=== PATIENT | female | born 1935 | race Caucasian/White ===

== ENCOUNTER → 2018-01-04 13:34 | Outpatient (CLI) | payer MEDICARE, OTHER, SELFPAY ==
--- NOTE | 2018-01-04 13:34 | DT_ITS ---
This patient was seen during an EMR downtime January 01, 2018 - January 08, 2018. This patient may have a combination of paper and electronic documentation or all paper documentation. All documentation is viewable within the e-chart portion of [employer] for each patient visit.
--- NOTE | 2018-01-04 13:46 | CT_ITS ---
STUDY: CT ABDOMEN WITHOUT CONTRAST REASON FOR EXAM: Female, 82 years old. Abdominal pain left lower quadrant colostomy RADIATION DOSAGE (If Supplied By Facility): CTDIvol = ( 9.26 ) mGy, DLP = ( 315.36 ) mGycm TECHNIQUE: Transaxial images were obtained without intravenous contrast, and with oral contrast. Sagittal and coronal images were reconstructed. This is a study from the base of the lungs to the acetabulum. This is a CT scan of the abdomen only. The pelvis was not completely included in this study. This is incomplete for evaluation of the bowel. Individualized dose optimization techniques were used for this CT. COMPARISON: August 02, 2017 ct abdomen and pelvis FINDINGS: There is minimal pelviectasis and fibrotic changes within the lung bases similar to prior study. The visualized portions of the heart are within normal limits. Normal liver. Normal gallbladder and extrahepatic biliary system. Normal spleen. Normal pancreas. Normal bilateral adrenal glands. There is mild right renal atrophy. There is a lower pole 3.4 mm stone left kidney. There is no evidence of hydronephrosis. There is a left renal cyst measuring 1.5 x 0.9 cm. The stomach is partially filled with contrast. There is herniation of the stomach out of a large opening in the left and midline abdomen superior and adjacent to the left lower quadrant colostomy. There is an air-fluid level in the distal stomach before it enters back into the abdomen towards the duodenum. On today's study the stomach measures 10.5 x 4.5 cm within the hernia. On prior study it measured 7.7 x 5.5 cm. There is mild distention of the duodenum. There is a partially contrasted minimally thick-walled appearance of the associated small bowel. There is diverticulosis without visualized diverticulitis. The appendix is visualized and appears normal. Is partial calcification of the aorta. There were measured as 2.6 x 2.9 cm. Normal inferior vena cava. Normal retroperitoneum. There is a sizable amount of herniated fat adjacent to the colostomy. The area of herniation and colostomy measures 15 x 6 x 12 cm. There is been vertebroplasty at T10 and T11 with some loss of height of the vertebral bodies. The bones are osteopenic. CT/Abdomen without IV Contrast IMPRESSION: Persistent, worsening large herniation of fat and stomach out of the colostomy site.. There is an air-fluid level in the distal stomach. Left lower quadrant colostomy containing contrast. Mild aneurysmal dilatation of the descending thoracic aorta. Mild bilateral renal atrophy Stable left renal cyst.. Left renal stone no evidence of hydronephrosis. Electronically Signed: Nereida Gary MD at 10:55 EDT Tel , Service support ,
== END ==
PROVIDERS: Family Provider Internal Medicine; PCP Internal Medicine; Visit Provider Internal Medicine
DX: R10.9 Unspecified abdominal pain (principal)
CPT/HCPCS: 74150

== ENCOUNTER → 2018-03-28 14:00 | Outpatient (CLI) | payer MEDICARE, OTHER, SELFPAY ==
[2018-03-28 14:37] LABS: Absolute Lymphocyte Count 1.28 X10^3/ul (0.83-4.51); Absolute Neutrophil Count 5.4 X10^3/uL (2.0-7.7); Basophil# 0.03 X10^3/uL; Basophil% 0.4 % (0-1); Eosinophil# 0.27 X10^3/uL; Eosinophils% 3.7 % (0-5); Hematocrit 31.6 % (37-47); Hemoglobin 10.2 g/dl (12.0-15.0); Lymphocyte # 1.28 X10^3/ul (4.0); Lymphocyte % 17.4 % (19-41); Mean Corp Hgb Conc 32.3 g/gl (32-36); Mean Corpuscular Hgb 28.5 pg (27.0-32.0); Mean Corpuscular Volume 88.3 fL (81-99); Mean Platelet Vol. 9.3 fl (6.2-12.0); Monocyte# 0.42 X10^3/uL; Monocyte% 5.7 % (0-10); Neutrophil # 5.35 X10^3/uL (2.7-7.7); Neutrophil % 72.5 % (47-70); Platelet Count 224 K/mm3 (150-450); RBC Distribution Width SD 45.7 fl (35.1-43.9); Red Blood Count 3.58 M/mm3 (4.2-5.4); White Blood Count 7.4 K/mm3 (4.4-11.0)
[2018-03-28 14:39] LABS: POSITIVE COUNT NO; POSITIVE DIFFERENTIAL NO; POSITIVE MORPHOLOGY NO
[2018-03-28 14:42] LABS: Protein, Urine (Random) 84.9 mg/dL (<11.9); Protein:Creat Ratio 488 mg/g CRE (0-200)
[2018-03-28 15:32] LABS: PTHIN 25.1 pg/mL (18.4-80.1)
[2018-03-28 16:50] LABS: Vitamin B12 673 pg/mL (211-911); Vitamin D,25 Hydroxy 30.2 ng/mL (29.95-100.01)
[2018-03-28 19:04] LABS: Albumin, Serum 3.6 g/dL (3.2-5.0); BUN 44 mg/dL (7-18); Calcium,Total 9.2 mg/dL (8.5-10.1); Chloride 108 mmol/L (98-107); Creatinine, Serum 3.39 mg/dL (0.55-1.02); EST Glomerular Filtration Rate 14 mL/min (>60); Est Glom Filt Rate - Afr Amer 17 mL/min (>60); Ferritin 119 ng/mL (8-252); Folates, (Folic Acid) > 100.00 ng/mL (3.1-55.4); Glucose 89 mg/dL (74-106); Iron 70 ug/dL (50-170); Iron Binding Capacity,Total 268 ug/dL (250-450); PERCENT IRON SATURATION 26.1 % (15.0-55.0); Phosphorus 3.3 mg/dL (2.5-4.9); Potassium 4.5 mmol/L (3.5-5.1); Sodium Level 135 mmol/L (136-145)
== END ==
PROVIDERS: Family Provider Internal Medicine; PCP Internal Medicine; Visit Provider Internal Medicine Nephrology
DX: N18.4 Chronic kidney disease, stage 4 (severe) (principal); N12 Tubulo-interstitial nephritis, not specified as acute or chronic; D63.1 Anemia in chronic kidney disease; N25.81 Secondary hyperparathyroidism of renal origin
CPT/HCPCS: 36591; 80069; 82306; 82570; 82607; 82728; 82746; 83540; 83550; 83970; 84156; 85025; A4216

== ENCOUNTER → 2018-05-07 13:57 | Outpatient (CLI) | payer MEDICARE, OTHER, SELFPAY ==
--- NOTE | 2018-05-07 14:00 | ECHOCS_ITS ---
Reason For Study: THORACIC AORTA ANEURYSM Procedure This was a 2D Doppler, Color Flow transthoracic echocardiogram. Contrast injection was performed. Exam performed in department. Left Ventricle Normal LV size. Left ventricular systolic function is normal. The estimated ejection fraction is 55 %. Stage 1 diastolic dysfunction. No regional wall motion abnormalities noted. Right Ventricle Normal RV size. Normal systolic function. Atria Normal left atrium. Normal right atrium. Mitral Valve Normal mitral valve. Tricuspid Valve Normal tricuspid valve. Mild tricuspid valve insufficiency. Aortic Valve Trisinus/trileaflet aortic valve. Mild focal aortic valve calcification. Pulmonic Valve Normal pulmonic valve. Great Vessels Mildly dilated aortic root. The pulmonary artery is normal size. Normal inferior vena cava. Pericardium/Pleural No pericardial effusion. Medication Used port access for image enhancer. Diluted definity 4ml given slow IV push to enhance endocardial definition. MMode/2D Measurements & Calculations LVIDd: 4.2 cm IVSd: 0.70 cm Ao root diam: 3.9 cm LVIDs: 3.3 cm LVPWd: 0.92 cm LA dimension: 3.6 cm RVDd: 3.5 cm FS: 21.5 % LAV(MOD-bp): 47.5 ml EDV(MOD-sp4): 85.2 ml EDV(MOD-sp2): 86.8 ml LAV(MOD-bp) Indexed: 28.7 ml/m2 ESV(MOD-sp4): 42.2 ml EF(MOD-sp2): 48.3 % LAV(MOD-sp2): 48.7 ml EF(MOD-sp4): 50.4 % LAV(MOD-sp4): 47.0 ml SV(MOD-sp4): 43.0 ml SV(MOD-sp2): 41.9 ml LA A4 area: 17.5 cm2 RA A4 area: 14.3 cm2 Time Measurements MV dec time: 0.39 sec Doppler Measurements & Calculations MV E max taurus: 38.1 cm/sec Lat Peak E' Taurus: 8.6 cm/sec Med Peak E' Taurus: 4.7 cm/sec MV A max taurus: 75.0 cm/sec E/E' lat: 4.4 E/E' med: 8.1 MV E/A: 0.51 Ao V2 max: 123.6 cm/sec LV V1 max: 83.1 cm/sec PA V2 max: 71.5 cm/sec Ao max P.1 mmHg LV V1 max P.8 mmHg PI end-d taurus: 98.6 cm/sec TR max taurus: 211.6 cm/sec TR max P.9 mmHg Interpretation Summary Normal LV size. Left ventricular systolic function is normal. The estimated ejection fraction is 55 %. Stage 1 diastolic dysfunction. Mildly dilated aortic root. Compared to prior study, there is no significant change. Ordering Physician: GIANFRANCO LACY Referring Physician: Anya Lua M.D. Performed By: Theresa Eid RDCS, RVT
== END ==
PROVIDERS: Family Provider Internal Medicine; PCP Internal Medicine; Referring Provider Surgery Vascular Surgery; Visit Provider Surgery Vascular Surgery
DX: I71.2 Thoracic aortic aneurysm, without rupture (principal)
CPT/HCPCS: 93306; Q9957; A4216; C8929

== ENCOUNTER 2018-06-30 12:45 | Emergency (ER) | payer MEDICARE, OTHER, SELFPAY ==
[2018-06-30 12:47] VITALS: BP 110/65; PULSE 63; RESP 16; TEMP 36.2; O2SAT 93; BMI 23.0
--- NOTE | 2018-06-30 12:53 | VDLE_ITS ---
Reason For Study: swelling RIGHT LEFT CFV is compressible, spontaneous, phasic, CFV, FV, POP V, T/P Trunk, PTV, Peroneal V, competent and demonstrates normal Gastroc V, Soleus V are dilated and augmentation. noncompressible with no flow. Procedure GSV is partially harvested. Remaining GSV is Exam performed portable in ED. compressible. The exam was diagnostic. A preliminary report was called and/or faxed to Dr. Aly. <> Interpretation Summary Acute deep venous thrombosis left common femoral, femroal, poplieal, tibioperoneal trunk, posterior tibial, peroneal, gastrocnemius and soleus veins. Partially remaining great saphenous vein is patent and compressible Normal flow patterns right common femoral vein Ordering Physician: Felice Aly Performed By: Rob Muhammad, RVT
--- NOTE | 2018-06-30 14:48 | ED.VISSUMM ---
- ER Visit Summary Date of Service: 06/30/18 Chief Complaint: [Swelling left leg] History of Present Illness: The patient is a 82 F [presents to the emergency department with complaint of swelling to her left leg since yesterday. Patient denies any trauma. Patient denies any chest pain or shortness of breath. 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 Patient states that she had been on anticoagulation for many years but then her doctors took her off. Patient is not sure why she was taken off of the anticoagulation. Patient has a history of factor V Leiden and history of lymphoma. Patient also with stage IV kidney disease but is not on dialysis.] Physical Examination: [HEENT-PERRLA, EOMI. Cranial nerves II through XII grossly intact. TMs clear. Mucous membranes moist. No adenopathy. Cardiovascular-regular rate and rhythm without murmur or ectopy Lungs-clear to auscultation, chest wall stable without crepitus or subcu emphysema Abdomen-normoactive bowel sounds, soft, nontender, no rebound or rigidity, no peritoneal signs. Extremities-intact ?4, normal range of motion, normal pulses. Left leg-patient has diffuse edema from the thigh down to the foot. There is a slight bluish hue/discoloration to the left leg. Patient has normal popliteal, femoral, dorsal pedal, and posterior tibial pulses. Patient has normal cap refill. The leg is not painful. Patient has normal range of motion.] Test Results: [Venous duplex of the left lower extremity obtained showed a DVT extending from the femoral vein down to the foot.] Emergency Department Course and Treatment: [Patient case was discussed with Dr. rogel he was on-call for Dr. Malin. At this point decision was made to treat patient with Eliquis. Patient states that she normally ambulates without difficulty on her own. Patient is not a fall risk. She denies any blood in her stool or black tarry stools. Patient had blood work done on 829 of this year and showed a hemoglobin over 10. Patient does have a history of some chronic anemia.] Treatment Plan: [Patient will be treated with Eliquis and patient to be seen in primary care physician's office within next 3-5 days. Patient advised to return if worsening pain, swelling, weakness in the extremity, paresthesias, or condition should worsen anyway.] Disposition: [Discharged home in stable condition] Impression: [DVT left lower extremity] This note was generated with [employer] dictation software. It may contain incorrect words, spelling, and punctuation that were not noted in review of the chart prior to signing ED Disposition - Plan for ED Patient: Chief Complaint: Edema Referrals: Anya Lua DO [Primary Care Provider] -
--- NOTE | 2018-06-30 14:54 | ED.DEP ---
ED Disposition - Plan for ED Patient: Chief Complaint: Edema Instructions: ED DVT Prescriptions: Apixaban [Eliquis] 5 mg PO BID #[id number] tab Referrals: Anya Lua DO [Primary Care Provider] - 3-5 Days
[2018-06-30] MEDS: APIXABAN 5 MG TABLET 10 MG PO (15:13)
[2018-06-30 15:15] VITALS: BP 115/81; PULSE 73; RESP 16; O2SAT 100
[2018-06-30 15:16] VITALS: BP 115/81; PULSE 73; RESP 16; O2SAT 100
--- OUTSIDE RECORDS SUMMARY | 2018-08-24 20:17 | XMS RPT_ITS | Continuity of Care Document ---
:1935 Author Organization [facility] Address [address] [place] [address] Phone Care Team Providers Name Role Phone Anya Steward DO Unavailable Dr. Alexey Shields Unavailable Guicho Rowe DO Unavailable Physical Therapy, [facility] Unavailable Asia Mcclain Unavailable Unavailable Daniel Hawk Unavailable Unavailable Sherri LICONA, Lauren Unavailable ELICEO Dove Unavailable Unavailable Yolanda Zarco Unavailable Unavailable Vianey Burr LPN Unavailable Unavailable Alexa Razo Unavailable Unavailable Unavailable Unavailable Problems Name Dates Details Abnormal blood finding (R79.9, 790.99) Comments: elev sed rate and crp-- will update cancer screening- order cologard- and family h/o dad from colon cancer age - late 70'smamm orderelev from compression fx and pain-- lymphoma in remission per oncology Status: Active Abnormal chest x-ray (R93.89, 793.2) Status: Active Abnormal lung sounds (R09.89, 786.7) Status: Active Abnormal TSH (R79.89, 790.6) Status: Active Acute pharyngitis (J02.9, 462) Comments: x 2weeksadd humity, and antibioticpt was treated with augmentin for sinus, but gave her pills to now her symptoms are back Status: Active Acute sinusitis, unspecified (J01.90, 461.9) Status: Active Anemia (D64.9, 285.9) Comments: saw [facility] fro vaginal bleeding Status: Active 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, 285.21) Comments: along with iron def but last labs are normal - and pt states not taking iron at all despite what referal letter states -- -if hgb <10 heme will restart procrit injections, i still think her chronic p ain and adrenal fatigue play a role as well Status: Active 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, 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) Status: Active Annual Medicare Phyiscal WITHOUT abnormal findings (Renamed from Encounter for general adult medical examination without abnormal findings) (Z00.00, V70.9) Status: Active Aphthae, oral (K12.0, 528.2) Status: Active 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, 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) Comments: shaji Parra Status: Active BMI 23.0-23.9, adult (Z68.23, V85.1) Status: Active BMI between 19-24,adult (V85.1) Status: Active BMI between 19-24,adult (V85.1) Status: Active Chest pain, atypical (R07.89, 786.59) Status: Active Chronic fatigue (R53.82, 780.79) Status: Active Chronic kidney disease, stage IV (severe) (N18.4, 585.4) Comments: Shaji Gamble for renal Status: Active Chronic systolic congestive heart failure (I50.22, 428.22) Status: Active Chronic thoracic back pain, unspecified back pain laterality (M54.6, 724.1) Status: Active CKD (chronic kidney disease), stage V (N18.5, 585.5) Status: Active Cough (R05, 786.2) Status: Active Cough (R05, 786.2) Status: Active COUGH, NOS (R05, 786.2) Comments: cough better now hear pneumoniia? early viral. will see how goes over next week. if worsen CXR. Status: Active CRP elevated (R79.82, 790.95) Status: Active Cystitis, acute (Renamed from Acute cystitis) (N30.00, 595.0) Comments: had month ago rech and cx Status: Active Deliveries (Parity) Comments: 4 Status: Active Difficulty breathing (R06.89, 786.09) Status: Active Diverticulosis of colon (K57.30, 562.10) Comments: stable Status: Active DVT (deep venous thrombosis) (I82.409, 453.40) Status: Active Dysuria (R30.0, 788.1) Status: Active Dysuria (R30.0, 788.1) Status: Active E. 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 Parra Status: Active Family history of diabetes mellitus (Z83.3, V18.0) Status: Active Fatigue (R53.83, 780.79) Status: Active FATIGUE (R53.83, 780.79) Comments: multifactorial -- depression , aging , lots of stress, CKD, anemai not eating well righ tnow. rest eat better. Status: Active Headache (R51, 784.0) Comments: resolved, assured no cancer from MRI of brainsome mod small vessel ischemic disease no infarcthistory of lymphomaheadache localized left side behind eye and side of face treated for sinus and no other symptoms Status: Active Hematuria, gross (R31.0, 599.71) Status: Active Hip fracture, right (S72.001A, 820.8) Status: Active Hip pain, right (M25.551, 719.45) Status: Active Hx of elevated BUN/CR Status: Active Hx of low WBC Status: Active Hypercalcemia (E83.52, 275.42) Comments: told to stop Richard with D, if still elevated would check spep and upep Status: Active Hyperlipidemia, unspecified (E78.5, 272.4) Status: Active Hypertension, benign (I10, 401.1) Status: Active Hypokalemia (E87.6, 276.8) Status: Active Hypotension (I95.9, 458.9) Comments: was recently started on lisinopril and symptomatic, lisinopril held and improving Status: Active Hypothyroidism (E03.9, 244.9) Status: Active Left lower quadrant pain (R10.32, 789.04) Status: Active [facility] current use of anticoagulant (Z79.01, V58.61) Comments: inr 1.3-- Prah monitoring when to restat it Status: Active LYMPHADENITIS, ACUTE (683.) (683) Status: Active LYMPHOMA, NOS Status: Active Neck pain, bilateral (M54.2, 723.1) Status: Active Need for prophylactic vaccination and inoculation against influenza (Z23, V04.81) Status: Active Need for vaccination against Streptococcus pneumoniae (Z23, V03.82) Status: Active 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 mets vs other only on rtworse at night infron of ribshistory of nonhodgkins lymphoma being seen by Mari Status: Active SBO (small bowel obstruction) (K56.609, 560.9) Comments: no surgical intervention needed Status: Active Sciatic pain (M54.30, 724.3) Status: Active SOB (shortness of breath) (R06.02, 786.05) Status: Active Sore throat (J02.9, 462) Status: Active Status post-operative repair of closed fracture of right hip (Z98.890, V45.89) Comments: getting home Pt sees Dr. Lion in Jul Status: Active Therapeutic drug monitoring (Z51.81, V58.83) Status: Active THICKENING OF SKIN (782.8) Status: Active Thoracic compression fracture (S22.000A, 805.2) Comments: chronic Status: Active UMBILICAL HERNIA, NOS (553.1) Status: Active Unspecified Diagnosis Status: Active Unspecified Diagnosis Status: Active Unspecified Diagnosis Status: Active Unspecified Diagnosis Status: Active Upper respiratory infection, acute (J06.9, 465.9) Status: Active Urgency incontinence (N39.41, 788.31) Status: Active Urinary frequency (R35.0, 788.41) Status: Active Urinary incontinence, unspecified type (R32, 788.30) Status: Active Urinary tract infection, recurrent (N39.0, 599.0) Status: Active Urine frequency (R35.0, 788.41) Status: Active UTI symptoms (R39.9, 788.99) Status: Active Walking pneumonia (J18.9, 486) Status: Active Medications Name Dates Details Acetaminophen ER 650 MG Oral Tablet Extended Release 1 (one) Tablet ER q 6 hrs prn for 0 days Quantity: 90 {Tablet} Refills: 0 Ordered:12-Jul-2016 Miri Polanco CNP Start : 12-Jul-2016 Active Carmen Allergy Childrens 30 MG Oral Tablet Disintegrating 1 (one) Tablet Tablet [id number] for 30 days Quantity: 60 {Tablet} Refills: 1 Ordered:14-Jun-2018 Asia Mcclain Start : 14-Jun-2018 Active Calcium Carbonate-Vitamin D 500-400 MG-UNIT Oral Tablet 1 (one) Tablet daily for 0 days Quantity: 30 {Tablet} Refills: 0 Ordered:12-Jul-2016 Miri Polanco CNP Start : 12-Jul-2016 Active Citalopram Hydrobromide 20 MG Oral Tablet 1 (one) Tablet qd for 90 days Quantity: 90 {Tablet} Refills: 1 Ordered:22-Jan-2018 Dorie Steward DO, DO, Kathleen Start : 22-Jan-2018 Active Eliquis 5 MG Oral Tablet 1 (one) Tablet two tablets bid x1 week then one tablet bid for 30 days Quantity: 60 {Tablet} Refills: 3 Ordered:04-Jul-2018 Sherri LICONA Lauren Start : 04-Jul-2018 Active Iron 325 (65 Fe) MG Oral Tablet 1 (one) Tablet daily for 0 days Quantity: 30 {Tablet} Refills: 3 Ordered:15-May-2017 Dorie Steward DO, DO, Kathleen Start : 15-May-2017 Active Levothyroxine Sodium 88 MCG Oral Tablet 1 (one) Tablet daily for 0 days Quantity: 90 {Tablet} Refills: 3 Ordered:21-Jul-2017 Dorie Steward DO, DO, Kathleen Start : 21-Jul-2017 Active Magnesium Oxide 400 MG Oral Capsule 1 QD (400 MG) Active OxyCODONE HCl 5 MG Oral Tablet 1 (one) Tablet q 4 hours as needed for 0 days Quantity: 30 {Tablet} Refills: 0 Ordered:12-Jul-2016 Miri Polanco CNP Start : 12-Jul-2016 Active Comments:Medication taken as needed. Pantoprazole Sodium 40 MG Oral Tablet Delayed Release 1 QD (40 MG) Active Potassium Chloride ER 20 MEQ Oral Tablet Extended Release 1 (one) Tablet ER daily when take a lasix pill for 30 days Quantity: 30 {Tablet} Refills: 0 Ordered:13-Jul-2017 Dorie Steward DO, DO, Kathleen Start : 13-Jul-2017 Active Vitamin C 250 MG Oral Tablet 1 (one) Tablet with iron daily for 0 days Quantity: 30 {Tablet} Refills: 4 Ordered:15-May-2017 Dorie Steward DO, DO, Kathleen Start : 15-May-2017 Active Warfarin Sodium 1 MG Oral Tablet 1 (one) Tablet TAD for 0 days Quantity: 200 {Tablet} Refills: 3 Ordered:04-Jul-2018 Miri Polanco CNP Start : 04-Jul-2018 Active Warfarin Sodium 1 MG Oral Tablet 1 (one) Tablet TAD for 0 days Quantity: 360 {Tablet} Refills: 3 Ordered:04-Jul-2018 Miri Polanco CNP Start : 04-Jul-2018 Active Warfarin Sodium 5 MG Oral Tablet 1 (one) Tablet TAD for 0 days Quantity: 90 {Tablet} Refills: 4 Ordered:04-Jul-2018 Miri Polanco CNP Start : 04-Jul-2018 Active Warfarin Sodium 5 MG Oral Tablet 1 (one) Tablet TAD for 0 days Quantity: 90 {Tablet} Refills: 3 Ordered:04-Jul-2018 Miri Polanco CNP Start : 04-Jul-2018 Active ALEVE, 220MG (Oral Tablet) 2 (two) Tablet Twice daily for 0 days Refills: 0 Ordered:31-Mar-2011 KRISTY Duval Start : 04-Jun-2007 End : 31-Mar-2011 Inactive Amoxicillin-Pot Clavulanate 875-125 MG Oral Tablet 1 (one) Tablet bid for 10 days Quantity: 20 {Tablet} Refills: 0 Ordered:14-Jun-2018 Yolanda Zarco Start : 14-Jun-2018 End : 24-Jun-2018 Inactive AUGMENTIN, 875-125MG (Oral Tablet) 1 Tablet bid for 10 days Quantity: 20 {Tablet} Refills: 0 Ordered:13-Oct-2014 Dorie Steward DO, DO, Kathleen Start : 13-Oct-2014 End : 23-Oct-2014 Inactive Bactrim DS 800-160 MG Oral Tablet 1 Tablet bid for 7 days Quantity: 14 {Tablet} Refills: 0 Ordered:22-Mar-2018 Yolanda Zarco Start : 22-Mar-2018 End : 29-Mar-2018 Inactive BIAXIN XL, 500MG (Oral Tablet Extended Release 24 Hour) 2 (two) Tablet ER 24HR daily for 10 days Quantity: 20 {Tablet_ER_24HR} Refills: 0 Ordered:24-Sep-2012 Miri Polanoc CNP Start : 24-Sep-2012 End : 04-Oct-2012 Inactive BLEPH-10, 10% (Ophthalmic Solution) 2 (two) Drop(s) q2-3hr x 7-10 days for 7 days Quantity: 1 {Solution} Refills: 0 Ordered:24-Sep-2012 Miri Polanco CNP Start : 24-Sep-2012 End : 01-Oct-2012 Inactive CALCIUM 600, 1500MG (Oral Tablet) for 0 days Refills: 0 Ordered:31-Mar-2011 KRITSY Duval End : 31-Mar-2011 Inactive CLARITIN, 10MG (Oral Capsule) 1 Capsule dialy for 0 days Quantity: 14 {Capsule} Refills: 0 Ordered:08-Jun-2012 Sariah Brantley LPN Start : 18-Apr-2011 End : 08-Jun-2012 Inactive Coumadin 5 MG Oral Tablet tad Tablet UAD for 90 days Quantity: 180 {Tablet} Refills: 3 Ordered:14-Jun-2018 Leno FENTONTrueramírez Smyth Start : 22-May-2013 End : 14-Jun-2018 Inactive Comments:generic CULTURELLE, 10B CELL (Oral Capsule) 1 Capsule bid for 0 days Quantity: 20 {Capsule} Refills: 0 Ordered:13-Nov-2012 Akosua Gannon Start : 08-Jun-2012 End : 13-Nov-2012 Inactive DETROL LA, 4MG (Oral Capsule Extended Release 24 Hour) 1 cap Capsule ER 24HR qd for 90 days Quantity: 90 {Capsule_ER_24HR} Refills: 3 Ordered:10-Jan-2012 Yolanda Dove LPN Start : 25-Aug-2010 End : 10-Jan-2012 Inactive Ferrex 150 Forte 150-25-1 MG-MCG-MG Oral Capsule 1 (one) Capsule bid for 30 days Quantity: 60 {Capsule} Refills: 0 Ordered:03-Aug-2016 Dorie Steward DO, DO, Kathleen Start : 03-Aug-2016 End : 02-Sep-2016 Inactive Flagyl 500 MG Oral Tablet 1 (one) Tablet bid for 0 days Quantity: 20 {Tablet} Refills: 0 Ordered:11-Jul-2017 Yolanda Dove LPN Start : 20-Jun-2017 End : 11-Jul-2017 Inactive FLECTOR, 1.3% (Transdermal Patch) 1 Patch q12hrs for 0 days Quantity: 10 {Patch} Refills: 0 Ordered:15-Apr-2013 Akosua Gannon Start : 04-Dec-2012 End : 15-Apr-2013 Inactive FOSAMAX PLUS D, 34-9942CO-VMTS (Oral Tablet) 1 Tablet QW for 0 days Quantity: 12 {Tablet} Refills: 3 Ordered:03-Aug-2009 Yolanda Dove LPN Start : 30-Jul-2008 Inactive FOSAMAX, 70MG (Oral Tablet) 1 (one) Tablet qweek for 0 days Quantity: 12 {Tablet} Refills: 3 Ordered:08-Jun-2012 Sariah Brantley LPN Start : 16-Feb-2011 End : 08-Jun-2012 Inactive Comments:pls substitute the generic Lasix 20 MG Oral Tablet 1 Tablet x1 today and tomorrow for 0 days Quantity: 2 {Tablet} Refills: 0 Ordered:21-Jul-2017 KRISTY Duval Start : 13-Jul-2017 End : 21-Jul-2017 Inactive Levaquin 500 MG Oral Tablet 1 (one) Tablet qd for 0 days Quantity: 10 {Tablet} Refills: 0 Ordered:11-Jul-2017 Yolanda Dove LPN Start : 20-Jun-2017 End : 11-Jul-2017 Inactive LEXAPRO, 10MG (Oral Tablet) 1 Tablet QD for 0 days Quantity: 90 {Tablet} Refills: 3 Ordered:23-Sep-2009 Yolanda Dove LPN Start : 28-Feb-2007 Inactive LIDODERM, 5% (External Patch) 1 Patch on 12 hours off 12 hours for 10 days Quantity: 10 {Patch} Refills: 0 Ordered:03-Dec-2012 Sherri LICONA Lauren Start : 03-Dec-2012 End : 13-Dec-2012 Inactive Lisinopril 5 MG Oral Tablet 3 (three) Tablet daily for 0 days Quantity: 90 {Tablet} Refills: 0 Ordered:12-Jul-2016 Vianey Burr LPN Start : 12-Jul-2016 End : 12-Jul-2016 Inactive Macrobid 100 MG Oral Capsule 1 (one) Capsule bid for 5 days Quantity: 10 {Capsule} Refills: 0 Ordered:13-Mar-2018 Yolanda Zarco Start : 13-Mar-2018 End : 18-Mar-2018 Inactive METAXALONE, 800MG (Oral Tablet) 1 (one) Tablet Tablet tid prn for 0 days Quantity: 20 {Tablet} Refills: 0 Ordered:25-Mar-2015 Akosua Gannon Start : 13-Oct-2014 End : 25-Mar-2015 Inactive MUCINEX, 600MG (Oral Tablet Extended Release 12 Hour) 1 Tablet ER 12HR bid for 0 days Quantity: 30 {Tablet_ER_12HR} Refills: 0 Ordered:13-Nov-2012 Akosua Gannon Start : 08-Jun-2012 End : 13-Nov-2012 Inactive ONE-A-DAY WOMENS FORMULA (Oral Tablet) for 0 days Refills: 0 Ordered:08-Jun-2012 Sariah Brantley LPN End : 08-Jun-2012 Inactive OXYBUTYNIN CHLORIDE ER, 5MG (Oral Tablet Extended Release 24 Hour) 1 Tablet ER 24HR qd for 0 days Quantity: 90 {Tablet_ER_24HR} Refills: 3 Ordered:29-Jun-2015 Yolanda Dove ELICEO Start : 13-Aug-2012 End : 29-Jun-2015 Inactive PAMINE, 2.5MG (Oral Tablet) BID for 0 days Refills: 0 Ordered:04-Aug-2008 Jazzy Marie End : 04-Jun-2007 Inactive PENLAC, 8% (External Solution) 1 Solution qd for 0 days Quantity: 1 {Solution} Refills: 5 Ordered:18-Apr-2011 Sariah Brantley LPN Start : 26-Mar-2010 End : 18-Apr-2011 Inactive Comments:apply to clean from base to tip daily PEPCID, 20MG (Oral Tablet) 1 Tablet bid for 14 days Refills: 0 Ordered:25-May-2011 Miri Polanco CNP Start : 18-Apr-2011 End : 02-May-2011 Inactive PREDNISONE, 20MG (Oral Tablet) 1 Tablet uad for 0 days Refills: 0 Ordered:25-Mar-2015 Akosua Gannon Start : 13-Oct-2014 End : 25-Mar-2015 Inactive Comments:2 a d for 2 d, 1 a d for 3d, 1/2 a d for 3 d ProAir RespiClick 108 (90 Base) MCG/ACT Inhalation Aerosol Powder Breath Activated 2 (two) Aero Pow Br Act Aero Pow Br Act q 6 hr prn for 0 days Quantity: 1 {Inhaler} Refills: 0 Ordered:15-May-2017 Vianey Burr LPN Start : 23-Sep-2016 End : 15-May-2017 Inactive PROzac 20 MG Oral Capsule 1 Capsule qd for 0 days Quantity: 90 {Capsule} Refills: 3 Ordered:15-May-2017 Vianey Burr LPN Start : 28-Jul-2016 End : 15-May-2017 Inactive PROZAC, 20MG (Oral Capsule) 1 Capsule qd for 0 days Quantity: 30 {Capsule} Refills: 1 Ordered:13-Nov-2012 Akosua Gannon Start : 20-Apr-2012 End : 13-Nov-2012 Inactive QUININE SULFATE, 260MG (Oral Tablet) 1 QD for 0 days Refills: 0 Ordered:04-Aug-2008 Jazzy Marie End : 04-Jun-2007 Inactive SYNTHROID, 100MCG (Oral Tablet) 1 Tablet QD for 0 days Quantity: 90 {Tablet} Refills: 3 Ordered:03-Dec-2008 Yolanda Dove LPN Start : 28-Feb-2007 End : 03-Dec-2008 Inactive Comments:NOVEMBER SUBSTITIUTE GENERIC TOPROL XL, 25MG (Oral Tablet Extended Release 24 Hour) 1/2 QD for 0 days Refills: 0 Ordered:04-Aug-2008 Jazzy Marie End : 04-Jun-2007 Inactive VALTREX, 1GM (Oral Tablet) 2 (two) Tablet bid for 1 days Quantity: 4 {Tablet} Refills: 1 Ordered:08-Jun-2012 Sariah Brantley LPN Start : 28-Oct-2011 End : 08-Jun-2012 Inactive VICODIN, 5-500MG (Oral Tablet) 1-2 Tablet every six hours, as needed for 0 days Quantity: 60 {Tablet} Refills: 0 Ordered:31-Mar-2011 KRISTY Duval Start : 07-Jul-2010 End : 31-Mar-2011 Inactive Comments:Medication taken as needed. sixty Vitamin B12 1000 MCG Oral Tablet Extended Release 1 (one) Tablet ER daily for 30 days Quantity: 30 {Tablet} Refills: 0 Ordered:23-Sep-2016 Yolanda Dove LPN Start : 12-Jul-2016 End : 11-Aug-2016 Inactive Vitamin D3 08306 UNIT Oral Tablet 1 (one) Tablet once a week for 30 days Quantity: 4 {Tablet} Refills: 0 Ordered:23-Sep-2016 Yolanda Dove LPN Start : 12-Jul-2016 End : 11-Aug-2016 Inactive ZITHROMAX Z-ELIANA, 250MG (Oral Tablet) 2 (two) Tablet on day 1then one tab daily for 4more days for 0 days Quantity: 1 {Package} Refills: 0 Ordered:07-Oct-2015 Yolanda Dove LPN Start : 17-Sep-2015 End : 07-Oct-2015 Inactive ZOCOR, 20MG (Oral Tablet) 1 Tablet QD for 0 days Quantity: 90 {Tablet} Refills: 3 Ordered:08-Jun-2012 Sariah Brantley LPN Start : 18-Jan-2012 End : 08-Jun-2012 Inactive ARMOUR THYROID, 120MG (Oral Tablet) 1 Tablet qd for 0 days Refills: 0 Ordered:13-Apr-2009 Nichelle MURRIETA AnyaNichelle Anya Start : 13-Apr-2009 End : 13-Apr-2009 Discontinued Dulera 200-5 MCG/ACT Inhalation Aerosol 1 (one) Aerosol Aerosol bid for 0 days Quantity: 1 {Inhaler} Refills: 0 Ordered:12-Jul-2016 Izabella Nuñez LPN Start : 07-Oct-2015 End : 12-Jul-2016 Discontinued HYDROCODONE-ACETAMINOPHEN, 5-500MG (Oral Tablet) 1 Tablet 1 to 2 tabs q6hrs prn for 0 days Quantity: 30 {Tablet} Refills: 1 Ordered:15-Apr-2013 Izabella Nuñez LPN Start : 15-Apr-2013 End : 12-Jul-2016 Discontinued Comments:This order discontinued per [facility]. VITAMIN D, 1000UNIT (Oral Capsule) 1 qd for 0 days Refills: 0 Ordered:23-Mar-2011 Izabella Nuñez LPN End : 12-Jul-2016 Discontinued Comments:This order discontinued per [facility]. Allergies and Adverse Reactions Name Dates Details Clindamycin - called metalic taste (Allergy) Status: Active Ketek - unpleasant taste in mouth (Allergy) Status: Active Niacin *ANTIHYPERLIPIDEMICS* (Allergy) Status: Active Comments: itch Zithromax - stomach upset & diarrhea (Allergy) Status: Active Past Medical History Name Dates Details Abdominal pain (R10.9, 789.00) Status: Resolved as of 11-Jan-2018 Bronchitis (J40, 490) Status: Inactive as of 19-Nov-2014 Cough (R05, 786.2) Status: Inactive as of 29-Oct-2015 Dysthymic (F34.1, 300.4) Comments: improcved on rx and situ improving too Status: Inactive as of 19-Nov-2014 Knee pain (M25.569, 719.46) Status: Inactive as of 14-Jan-2009 Low back pain (M54.5, 724.2) Status: Inactive as of 18-Feb-2013 NON-HODGKIN'S LYMPHOMA, NOS Comments: remission Status: Resolved as of 13-Apr-2009 Osteoporosis (M81.0, 733.00) Status: Resolved as of 16-Feb-2011 Other pulmonary embolism and infarction (I26.99, 415.19) Comments: ct scan sched thru oncologoly Status: Resolved as of 29-Jun-2015 Pain of upper extremity, unspecified laterality (M79.603, 729.5) Status: Inactive as of 18-Feb-2013 PHLEBITIS, NOS (451.9) Status: Inactive as of 03-Aug-2009 [place] eye (372.03) Status: Inactive as of 18-Feb-2013 Rash (R21, 782.1) Comments: ? contact dermatitis, tried prednisone then reappeared, after 1 wk, but went out and mowed again Status: Inactive as of 18-Feb-2013 SOB (shortness of breath) on exertion (R06.02, 786.05) Status: Resolved as of 27-Sep-2016 Wheeze (R06.2, 786.07) Status: Resolved as of 09-Oct-2015 Procedures Procedure Dates Details Colonoscopy Completed Oct-2004 COLONOSCOPY, NOS Completed Comments: 2002 Hip Fracture & Surgery - Right Completed Comments: Dr Lion 05/2016 Date Value Details 02-Jul-2018 Venous Duplex Lower Extremity Result: Comments: See Note; NOTES: [facility] Cardiovascular Services [address] [place] [address] Venous Duplex US, Unilateral 06/30/18 1341 MR#: [id number] Acct: [id number] Name: SALMA BYRAN Rep #: [id number] : 1935 82 From: Que Gonzales MD Attending Dr: Status: DEP ER Ordering Dr: Felice Aly DO Date: 06/30/18 Location: ED Sex: F C Admitted: Reason For Study : swelling RIGHT LEFT CFV is compressible, spontaneous, phasic, CFV, FV, POP V, T/P Trunk, PTV, Peroneal V, competent and demonstrates normal Gastroc V, Soleus V are dilated and augmentation. noncompre ssible with no flow. Procedure GSV is partially harvested. Remaining GSV is Exam performed portable in ED. compressible. The exam was diagnostic. A preliminary report was called and/or faxed to Dr. Farzana mota <> Interpretation Summary Acute deep venous thrombosis left common femoral, femroal, poplieal, tibioperoneal trunk, posterior tibial, peroneal, gastrocnemius and soleus veins. Partia lly remaining great saphenous vein is patent and compressible Normal flow patterns right common femoral vein __ Ordering Physician: Felice Aly Performed By: Rob Muhammad RVT 07/02/18 0602 Date Que Gonzales MD CC: Anya Steward DO; Felice Aly DO Date Dictated: 06/30/18 1341 Date Transcribed: 07/02/18 06 [employer]: Signed 30-Jun-2018 Discharge Instruction Result: Comments: See Note; NOTES: [facility] Medical Records Department [address] [place] [id number] Discharge Instruction 06/30/18 1454 MR#: [id number] Acct: [id number] Name: SALMA WELLS Rep #: [id number] : 1935 82 From: Felice Aly DO PCP: Anya Steward DO Status: REG ER ED Disposition - Plan for ED Patient: Chief Complaint: Edema Instructions: ED DVT Prescrip tions: Apixaban [Eliquis] 5 mg PO BID #74 tab Referrals: Anya Steward DO [Primary Care Provider] - 3-5 Days What to do if you have Problems For any increased pain, shortness of breath, bleeding, nausea or vomiting, chest pain, or any unexpected problems, contact your Primary Care Provider. Call [facility] ([phone]) or report to the closest Emergency Room. Call 911 if necessary. [phone] <Electronically signed by Feilce Aly DO> Date Felice Aly DO Cosigner Signature (If Indicated): Date CC: Anya Steward DO 30-Jun-2018 Emergency Department Summary Result: Comments: See Note; NOTES: [facility] Medical Records Department [address] [facility] [place] [address] Emergency Department Summary 06/30/18 1448 MR#: [id number] Acct: [id number] Name: SALMA DUENAS Rep #: [id number] : 1935 82 From: Felice Aly DO PCP: Anya Steward DO Status: REG ER - ER Visit Summary Date of Service: 06/30/18 Chief Complaint: [Swelling left leg] History of Present Illness: The patient is a 82 F [presents to the emergency department with complaint of swelling to her left leg since yesterday. Patient denies any trauma. Patient denies any chest pa in or shortness of breath. 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 Patient states that she had been on anticoagulation for many years but then her doctors took her off. Patient is not sure why she was taken off of the anticoagulation. Patient has a history of factor V Leiden and history of lymphoma. Patient also with stage IV kidney disease but is not on dialysis .] Physical Examination: [HEENT-PERRLA, EOMI. Cranial nerves II through XII grossly intact. TMs clear. Mucous membranes moist. No adenopathy. Cardiovascular- regular rate and rhythm without murmur or e ctopy Lungs-clear to auscultation, chest wall stable without crepitus or subcu emphysema Abdomen-normoactive bowel sounds, soft, nontender, no rebound or rigidity, no peritoneal signs. Extremities-in tact 4, normal range of motion, normal pulses. Left leg-patient has diffuse edema from the thigh down to the foot. There is a slight bluish hue/discoloration to the left leg. Patient has normal poplitea l, femoral, dorsal pedal, and posterior tibial pulses. Patient has normal cap refill. The leg is not painful. Patient has normal range of motion.] Test Results: [Venous duplex of the left lower extremi ty obtained showed a DVT extending from the femoral vein down to the foot.] Emergency Department Course and Treatment: [Patient case was discussed with Dr. rogel he was on-call for Dr. Malin. At this p oint decision was made to treat patient with Eliquis. Patient states that she normally ambulates without difficulty on her own. Patient is not a fall risk. She denies any blood in her stool or black tar ry stools. Patient had blood work done on 829 of this year and showed a hemoglobin over 10. Patient does have a history of some chronic anemia.] Treatment Plan: [Patient will be treated with Eliquis an d patient to be seen in primary care physician's office within next 3-5 days. Patient advised to return if worsening pain, swelling, weakness in the extremity, paresthesias, or condition should worsen a nyway.] Disposition: [Discharged home in stable condition] Impression: [DVT left lower extremity] This note was generated with 1010data dictation software. It may contain incorrect words, spelling, a nd punctuation that were not noted in review of the chart prior to signing ED Disposition - Plan for ED Patient: Chief Complaint: Edema Referrals: Anya Steward DO [Primary Care Provider] - Wha t to do if you have Problems For any increased pain, shortness of breath, bleeding, nausea or vomiting, chest pain, or any unexpected problems, contact your Primary Care Provider. Call [facility] ([phone]) or report to the closest Emergency Room. Call 911 if necessary. 06/30/18 1454 <Electronically signed by Felice Aly DO> Date ____ Felice Aly DO Cosigner Signature (If Indicated): Date CC: Anya Steward DO 07-May-2018 Echo, Complete w/ Contrast Result: Comments: See Note; NOTES: [facility] Cardiovascular Services [address] [place] [address] Echo Complete W/ Contrast 05/07/18 1404 MR#: [id number] Acct: [id number] Name: SALMA GONSALVES Rep #: [id number] : 1935 82 From: Ferd Huerta MD Attending Dr: JARRELL KATE MD Status: REG CLI Ordering Dr: Jarrell Kate MD Date: 05/07/18 Location: [facility] Sex: F C Admitted: Reason For Study: THORACIC AORTA ANEURYSM Procedure This was a 2D Doppler, Color Flow transthoracic echocardiogram. Contrast injection was performed. Exam performed in department. Left Ventricle Hali l LV size. Left ventricular systolic function is normal. The estimated ejection fraction is 55 %. Stage 1 diastolic dysfunction. No regional wall motion abnormalities noted. Right Ventricle Normal RV s ize. Normal systolic function. Atria Normal left atrium. Normal right atrium. Mitral Valve Normal mitral valve. Tricuspid Valve Normal tricuspid valve. Mild tricuspid valve insufficiency. Aortic Valv e Trisinus/trileaflet aortic valve. Mild focal aortic valve calcification. Pulmonic Valve Normal pulmonic valve. Great Vessels Mildly dilated aortic root. The pulmonary artery is normal size. Normal i nferior vena cava. Pericardium/Pleural No pericardial effusion. Medication Used port access for image enhancer. Diluted definity 4ml given slow IV push to enhance endocardial definition. MMode/2D Shari urements AND Calculations LVIDd: 4.2 cm IVSd: 0.70 cm Ao root diam: 3.9 cm LVIDs: 3.3 cm LVPWd: 0.92 cm LA dimension: 3.6 cm RVDd: 3.5 cm FS: 21.5 % LAV(MOD-bp): 47.5 ml EDV(MOD-sp4): 85.2 ml EDV(MOD- sp2): 86.8 ml LAV(MOD-bp) Indexed: 28.7 ml/m2 ESV(MOD-sp4): 42.2 ml EF(MOD-sp2): 48.3 % LAV(MOD-sp2): 48.7 ml EF(MOD-sp4): 50.4 % LAV(MOD-sp4): 47.0 ml SV(MOD-sp4): 43.0 ml SV(MOD-sp2): 41.9 ml LA A4 area: 17.5 cm2 RA A4 area: 14.3 cm2 Time Measurements MV dec time: 0.39 sec Doppler Measurements AND Calculations MV E max catrachita: 38.1 cm/sec Lat Peak E' Catrachita: 8.6 cm/sec Med Peak E' Catrachita: 4.7 cm/sec MV A max catrachita: 75.0 cm/sec E/E' lat: 4.4 E/E' med: 8.1 MV E/A: 0.51 Ao V2 max: 123.6 cm/sec LV V1 max: 83.1 cm/sec PA V2 max: 71.5 cm/sec Ao max P.1 mmHg LV V1 max P.8 mmHg PI end-d catrachita: 98.6 cm/se c TR max catrachita: 211.6 cm/sec TR max P.9 mmHg Interpretation Summary Normal LV size. Left ventricular systolic function is normal. The estimated ejection fraction is 55 %. Stage 1 diastolic dysfunctio n. Mildly dilated aortic root. Compared to prior study, there is no significant change. Ordering Physician: JARRELL KATE Referring Physician: Anya Steward M.D. Performed By: Theresa Eid, KYM, RVT 05/07/18 1626 Date Fred Huerta MD CC: JARRELL KATE MD; Anya Steward DO Date Dictated: 05/07/18 1404 Date Transcribed: 05/07/181625 [employer]unnel Kiln: Signed 28-Feb-2018 Oncology Visit Report Result: Comments: See Note; NOTES: [facility] [address] [place] [address] OFFICE VISIT Date of Service: 02/28/18 1508 MR#: [id number] Acct: [id number] Name: FABIO DUENAS Rep #: [id number] : 1935 From: Keaton Young MD Age/Sex: 82/F Location: OMD Status: Signed Subjective - Date of Service Date of Service:: 02/28/18 - Chief Complaint F/u for NHL. - Histo ry of Present Illness 82y.o.woman with history of Diffuse large B-cell lymphoma, CD20 positive, stage II. Date of diagnosis: 05/24/2004. S/P R-CHOP therapy x6 cycles, completed September 2004, Recurrent B- cell lymphoma, follicular center cell, grade 3. S/P right inguinal node excision 06/13/2011. Clinical stage IIB. IPI score of 3. Largest mesenteric mass 8.6 x 4.4 cm in the lower mid-abdomen. S/P R-CEOP x6 cycles 06/20/2011 - 11/02/2011. S/P BR chemotherapy x3 cycles 12/29/2011 - 02/28/2012. Rituxan maintenance from 03/28/2012 - 03/06/2013. 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 She had Coumadin toxicity, GI obstruction with ?bleed in 05/2017. She was transferred to in [facility] and, passed hard fecal material with resolution of abdominal pain and discharged. She is off Coumadin since then. Echocardiogram on 08/08/2017 showed EF 55%. She remains on observation, comes for follow u p, denies cough/fever/night sweats or chest pain. - Past Medical/Social History Past Medical History Past Medical History: Anemia,Clotting disorder,Kidney disease, Pulmonary embolism Cancer: Lymphoma Past Surgical History Surgical: Hernia repair Other Surgical History: RUE GRAYLING FISTULA FOR ESRD BOWEL RESECTION WITH COLOSTOMY KYPHOPLASTY R INGUINAL BX RENAL BX R ARM FRACTURE REPAIR Family Histo ry Paternal Past Medical History: Unknown Paternal History of Cancer Colon cancer Maternal Past Medical History: Diabetes mellitus,Stroke Social History Smoking Status Never smoker Review of Syste ms Constitutional:: Denies: Fever, Sweats, Weight loss, Appetite change, Chills Cardiovascular:: Denies: Chest pain, Palpitations, Dyspnea on exertion, Orthopnea, PND, Shortness of breath Respiratory: D enies: Cough, Hemoptysis, Shortness of Breath, Wheezing Gastrointestinal:: Denies: Abdominal pain, Nausea, Vomiting, Diarrhea, Constipation, Hematochezia Genitourinary: Denies: Dysuria, Hematuria, 15, F lank pain Musculoskeletal:: Denies: Back pain, Myalgia, Arthralgia Skin: Denies: Rash, Skin Changes, Wounds Neurological:: Denies: Headache, Dizziness, Visual changes, Tinnitus, Hearing loss Psychiatric : Denies: Anxiety, Depression, Homicidal Ideations, Suicidal Ideations Vital Signs Height 5 ft 4 in Weight: 62.142 kg Weight in Pounds 137.0 lbs Pulse Ox 96 - Physical Exam General: Alert, Oriented x3, No apparent distress HEENT: Atraumatic, PERRLA, EOMI, Normocephalic Oropharynx:: - - + dentures Neck:: Supple, Trachea midline. Negative for: JVD, bilateral Cardiac:: Regular rate, Regular rhythm, Normal S1, Normal S2. Negative for: Murmur Lungs: Clear to auscultation, Excusion symmetrical. Negative for: Rhonchi, Wheezes Abdomen:: - - + colostomy L LLQ. Extremities:: Negative for: Cyanosis, Edema Neurological: Neuro grossly intact Skin:: Negative for: Lesions, Rash, Petechiae, Ecchymosis Lymphatics:: Negative for: Cervical lymphadenopathy, Supraclavicular lymphadenopathy, Axillary lymphadenopat hy Laboratory Data: Laboratory Tests WBC 6.8 (4.4-11.0) K/mm3 RBC 3.50 L (4.2- 5.4) M/mm3 Hgb 10.0 L (12.0-15.0) g/dl Hct 31.4 L (37-47) % MCV 89.7 (81-99) fL Assessment and Plan NHL-No evidence of disease clinically. Heterozygous Prothrombin gene mutation and Factor V Leiden mutation with VTE 20yrs ago. S/P Coumadin toxicity, now off Coumadin. H/O chronic renal failure. Plan is to continue obs ervation. She will follow up with Nephrology. RTC 6 months with CBC, CMP, LDH. Medications: Prescriptions This Visit Medication Instructions Recorded Ascorbic Acid [C-1000] 1,000 mg PO DAILY 10/26/16 Primary Care Provider: Anya Steward Referring Provider: - Problem List (1) History of pulmonary embolism Status: Chronic (2) Non-Hodgkin lymphoma Status: Chronic Code Visit Office Visits / Cons ults: 22460 OV L4 Est 02/28/18 1515 <Electronically signed by Keaton Young MD> Date Keaton Young MD Cosigner Signature: Date __ (if applicable) CC: 18-Jan-2018 Downtime Report Result: Comments: See Note; NOTES: [facility] Medical Records Department [address] [place] [address] Downtime Report MR#: [id number] Acct: [id number] Name: SALMA DUENAS Rep #: [id number] : 1935 82 From: Erasto Cutler PCP: Anya Steward DO Status: REG CLI This patient was seen during an EMR downtime January 01, 2018 - January 08, 2018. This patient may have a combinatio n of paper and electronic documentation or all paper documentation. All documentation is viewable within the e-chart portion of [facility] for each patient visit. 04-Jan-2018 Abdomen without IV Contrast Result: Comments: See Note; NOTES: [facility] Imaging Services [address] [place] [address] Abdomen without IV Contrast MR#: [id number] Acct: [id number] Name: SALMA DUENAS Rep #: [id number] : 1935 F 82 From: Nereida Gary MD PCP: Anya Steward DO Status: REG CLI Study: Abdomen without IV Contrast Date of Exam: 01/04/18 Exam# [id number] Ordering Dr: Anya Steward DO STUDY: CT ABDOMEN WITHOUT CONTRAST REASON FOR EXAM: Female, 82 years old. Abdominal pain left lower quadrant colostomy RADIATION DOSAGE (If Supplied By Facility): CTDIvol = ( 9.26 ) mGy, DLP = ( 31 5.36 ) mGycm TECHNIQUE: Transaxial images were obtained without intravenous contrast, and with oral contrast. Sagittal and coronal images were reconstructed. This is a study from the base of the lungs to the acetabulum. This is a CT scan of the abdomen only. The pelvis was not completely included in this study. This is incomplete for evaluation of the bowel. Individualized dose optimization technique s were used for this CT. COMPARISON: August 02, 2017 ct abdomen and pelvis FINDINGS: There is minimal pelviectasis and fibrotic changes within the lung bases simila r to prior study. The visualized portions of the heart are within normal limits. Normal liver. Normal gallbladder and extrahepatic biliary system. Normal spleen. Normal pancreas. Normal bilateral adre nal glands. There is mild right renal atrophy. There is a lower pole 3.4 mm stone left kidney. There is no evidence of hydronephrosis. There is a left renal cyst measuring 1.5 x 0.9 cm. The stomach is partially filled with contrast. There is herniation of the stomach out of a large opening in the left and midline abdomen superior and adjacent to the left lower quadrant colostomy. There is an air-flu id level in the distal stomach before it enters back into the abdomen towards the duodenum. On today's study the stomach measures 10.5 x 4.5 cm within the hernia. On prior study it measured 7.7 x 5.5 cm . There is mild distention of the duodenum. There is a partially contrasted minimally thick-walled appearance of the associated small bowel. There is diverticulosis without visualized diverticulitis. Th e appendix is visualized and appears normal. Is partial calcification of the aorta. There were measured as 2.6 x 2.9 cm. Normal inferior vena cava. Normal retroperitoneum. There is a sizable amount of herniated fat adjacent to the colostomy. The area of herniation and colostomy measures 15 x 6 x 12 cm. There is been vertebroplasty at T10 and T11 with some loss of height of the vertebral bodies. The bones are osteopenic. CT/Abdomen without IV Contrast IMPRESSION: Persistent, worsening large herniation of fat and stomach out of the colostomy s ite.. There is an air-fluid level in the distal stomach. Left lower quadrant colostomy containing contrast. Mild aneurysmal dilatation of the descending thoracic aorta. Mild bilateral renal atrophy Stable left renal cyst.. Left renal stone no evidence of hydronephrosis. Electronically Signed: Nereida Gary MD at 10:55 EDT Tel , Service support , Fax CC: Anya Steward DO [employer] Tunnel Kiln: Signed 08-Aug-2017 Echocardiogram Complete Result: Comments: See Note; NOTES: [facility] Cardiovascular Services [address] [place] [address] Echo Complete 08/08/17 1308 MR#: [id number] Acct: [id number] Name: SALMA DUENAS Rep #: [id number] : 1935 81 From: Sergio Rivero MD Attending Dr: Keaton Young MD Status: REG CLI Ordering Dr: Keaton Young MD Date: 08/08/17 Location: [facility] Sex: F C Admitted: Reason For S tudy: SOB Procedure This was a 2D Doppler, Color Flow transthoracic echocardiogram. The exam was of poor technical quality due to diminished acoustic windows. The study was technically difficult. Exam performed in department. Left Ventricle Based upon the 2D echocardiographic images obtained there appears to be grossly normal left ventricular size, wall motion, and systolic function. The estimated e jection fraction is 55 %. Right Ventricle Normal RV size. Normal systolic function. Atria The left atrium is mildly enlarged. Normal right atrium. No doppler evidence for ASD. Mitral Valve There is m ild mitral annular calcification. Extension of the mitral annular calcification onto the posterior mitral valvel leaflet. Mild (1+) mitral valve insufficiency. Tricuspid Valve Normal tricuspid valve. Tr ivial tricuspid valve insufficiency. Right ventricular systolic pressure estimated to be 25 mmHg. Aortic Valve Trisinus/trileaflet aortic valve. Mild focal aortic valve calcification. Pulmonic Valve T he pulmonic valve is not well visualized. Mild (1+) pulmonic valve insufficiency. Great Vessels Normal sized aortic root. Pericardium/Pleural No pericardial effusion. MMode/2D Measurements AND Calcul ations LVIDd: 4.7 cm IVSd: 1.0 cm Ao root diam: 3.5 cm LVIDs: 3.6 cm LVPWd: 1.0 cm LA dimension: 3.9 cm RVDd: 3.5 cm FS: 22.8 % LAV(MOD-bp): 51.4 ml LA A4 area: 18.5 cm2 RA A4 area: 15.6 cm2 LAV(MOD- bp) Indexed: 31.0 ml/m2 LAV(MOD-sp2): 52.3 ml LAV(MOD-sp4): 49.5 ml Doppler Measurements AND Calculations MV E max catrachita: 47. 7 cm/sec Lat Peak E' Catrachita: 8.6 cm/sec Med Peak E' Catrachita: 4.5 cm/sec MV A max catrachita: 94.6 cm/sec E/E' lat: 5.5 E/E' med: 10.7 MV E/A: 0.50 Ao V2 max: 121.0 cm/sec LV V1 max: 73.6 cm/sec PA V2 max: 81.2 cm/sec Ao max P.9 mmHg LV V1 max P.2 mmHg TR max catrachita: 235.8 cm/sec TR max P.3 mmHg Interpretation Summary The study was technically difficult. Based upon the 2D echocardiographic images obtained there appears to be grossly normal l eft ventricular size, wall motion, and systolic function. The estimated ejection fraction is 55 %. The left atrium is mildly enlarged. There is mild mitral annular calcification. Extension of the mitral annular calcification onto the posterior mitral valvel leaflet. Mild (1+) mitral valve insufficiency. Trivial tricuspid valve insufficiency. Mild focal aortic valve calcification. Mild (1+) pulmonic va lve insufficiency. Right ventricular systolic pressure estimated to be 25 mmHg. Ordering Physicia n: Keaton Young Referring Physician: Anya Steward Performed By: Nicole Shepherd, RDCS, RVT 08/08/17 1725 Date Sergio Rivero MD CC: Keaton Yougn MD; Anya Steward DO Date Dictated: 08/08/17 1308 Date Transcribed: 08/08/17 1725 Fire[employer] Tunnel Kiln: Signed 07-Aug-2017 Venous Duplex Lower Extremity Result: Comments: See Note; NOTES: [facility] Cardiovascular Services [address] [place] [address] Venous Duplex US - Jeff Extrem 08/07/17 1230 MR#: [id number] Acct: [id number] Name: SALMA DUENAS Rep #: [id number] : 1935 81 From: Jose E Armstrong MD Attending Dr: Status: DEP ER Ordering Dr: Felice Aly DO Date: 08/07/17 Location: ED Sex: F C Admitted: Reason For Gianluca dy: LEG SWELLING RIGHT LEFT CFV is compressible, spontaneous, phasic, CFV is compressible, spontaneous, phasic, competent and demonstrates normal competent, and demonstrates normal augmentation. augmen tation. FV is compressible, spontaneous, phasic, FV is compressible, spontaneous, phasic, competent and demonstrates normal competent and demonstrates normal augmentation. augmentation. POP V is guru sible, spontaneous, phasic, POP V is compressible, spontaneous, phasic, competent and demonstrates normal competent and demonstrates normal augmentation. augmentation. T/P Trunk is compressible. T/P Endy nk is compressible. PTV is compressible. PTV is compressible. RT PerV is compressible. LT PerV is compressible. Thrombus filled varicosities noted medial GSV absent thigh/calf. Thrombus filled varicosit ies noted medial GSV partially compressible from prox thigh thigh. to ankle. Procedure Exam performed portable in ED. A preliminary report was called and/or faxed to Dr. Aly. Interpretation Summary D eep veins of the lower extremities are bilaterally patent and compressible segmentally. There is no evidence of deep vein thrombosis on either side. Valvular competence appears intact within the proxima l deep venous systems bilaterally. Acute superficial thrombophlebitis is noted in the right great saphenous vein from the proximal thigh to the ankle, as well as involving superficial varicosities in th e right medial thigh and calf. The left great saphenous vein is absent. Acute superficial thrombophlebitis is noted involving superficial varicosities in the left medial thigh. Ordering Physician: Felice Aly Referring Physician: Anya Steward M.D. Performed By: Jovana Miller RVT Electro nically signed by: Jose E Armstrong MD on 08/07/2017 05:36 PM 08/07/17 173 Date Jose E Armstrong MD CC: Anya Steward DO; Felice Aly DO Date Dictated: 08/07/17 1230 Date Transcribed: 08/07/171735 Fire[employer] Tunnel Kiln: Signed 07-Aug-2017 Discharge Instruction Result: Comments: See Note; NOTES: [facility] Medical Records Department [address] [place] [address] Discharge Instruction 08/07/17 1454 MR#: [id number] Acct: [id number] Name: SALMA WELLS Rep #: [id number] : 1935 81 From: Felice Aly DO PCP: Anya Steward DO Status: PRE ER ED Disposition - Plan for ED Patient: Chief Complaint: Edema Instructions: ED Phlebitis [place] perficial Referrals: Anya Steward DO [Primary Care Provider] - Keaton Young MD [NON-STAFF] - 5-7 Days What to do if you have Problems For any increased pain, shortness of breath, bleeding, nause a or vomiting, chest pain, or any unexpected problems, contact your Primary Care Provider. Call [facility] ([phone]) or report to the closest Emergency Room. Call 911 if necessary. 08/07/17 1454 <Electronically signed by Felice Aly DO> Date Felice Aly DO Cosigner Signature (If Indicated): Date CC: Anya Steward DO 07-Aug-2017 Emergency Department Summary Result: Comments: See Note; NOTES: [facility] Medical Records Department [address] [place] [address] Emergency Department Summary 08/07/17 1450 MR#: [id number] Acct: [id number] Name: SALMA DUENAS Rep #: [id number] : 1935 81 From: Felice Aly DO PCP: Anya Steward DO Status: PRE ER - ER Visit Summary Date of Service: 08/07/17 Chief Complaint: [[place] to both legs and concern for DVT.] History of Present Illness: The patient is a 81 F [resents to the emergency department with complaint of concern for deep venous thrombosis. Patient has a history of DVT and used to be on Coumadin until several months ago when she took herself off because she been doing well. Patient apparently discussed this with her oncologist Dr. Young who agreed to leave her off the Coumadin since she been doing well. Patient 2 days ago started taking Coumadin once again 2 mg first day and 4 mg yesterday. Patient denies any chest pain or shortness of breath.] Patient denies any recent nia el or surgery. Patient does have a history of remote lymphoma. Physical Examination: [HEENT-PERRLA, EOMI. Cranial nerves II through XII grossly intact. TMs clear. Mucous membranes moist. No adenopathy. Cardiovascular-regular rate and rhythm without murmur or ectopy Lungs-clear to auscultation, chest wall stable without crepitus or subcu emphysema Abdomen-normoactive bowel sounds, soft, nontender, no rebound or rigidity, no peritoneal signs. Extremities-intact 4, normal range of motion, normal pulses, atraumatic]. Evaluation of bilateral upper thighs does reveal several varicosities that are ten deni to palpation and indurated. No cellulitis noted. Test Results: [CBC with differential obtained showed a white blood cell count of 5.6, hemoglobin 8.0, hematocrit 26, platelets 133. Patient's INR wa s 1.3. He has Dopplers of both lower extremities obtained showed superficial thrombophlebitis but no evidence of DVT.] Emergency Department Course and Treatment: [I discussed case with who aske d that patient discontinue her Coumadin and use aspirin and warm compresses to the area. Patient to follow-up with his office for close follow-up.] Treatment Plan: [Patient advised to use warm compress es and daily aspirin.] Disposition: [Discharge to home in stable condition. Patient advised to return if increasing pain, swelling, redness, chest pain, shortness of breath, or condition should worsen anyway] Impression: [Superficial thrombophlebitis bilateral lower extremities] This note was generated with 1010data dictation software. It may contain incorrect words, spelling, and punctuation that were not noted in review of the chart prior to signing ED Disposition - Plan for ED Patient: Chief Complaint: Edema Referrals: Anya Steward DO [Primary Care Provider] - What to do if you have Problems For any increased pain, shortness of breath, bleeding, nausea or vomiting, chest pain, or any unexpected problems, contact your Primary Care Provider. Call [email or web address] ([phone]) or r eport to the closest Emergency Room. Call 911 if necessary. 08/07/17 7165 <Electronically signed by Felice Aly DO> Date Felice Aly DO Cosigner Signature (If Indicated): Date CC: Anya Steward DO 02-Aug-2017 Abdomen/Pelvis without Cont Result: Comments: See Note; NOTES: [facility] Imaging Services [address] [place] [id number] Abdomen/Pelvis without Cont MR#: [id number] Acct: [id number] Name: SALMA DUENAS Rep #: [id number] : 1935 F 81 From: David Wolfe MD PCP: Anya Steward DO Status: REG CLI Study: Abdomen/Pelvis without Cont Date of Exam: 08/02/17 Exam# [id number] Ordering Dr: Radha Bennett STUDY: CT ABDOMEN AND PELVIS WITHOUT CONTRAST REASON FOR EXAM: Female, 81 years old. Follow-up ABD PAIN/NONHODGKINS LYMPHOMA. Pt had procedure 06/2017 to release fecal impaction-non surgical. RA DIATION DOSAGE (If Supplied By Facility): CTDIvol = ( 9.12 ) mGy, DLP = ( 371.97 ) mGycm TECHNIQUE: Transaxial images were obtained from the dome of the diaphragm to the symphysis pubis without oral co ntrast, and without intravenous contrast. Sagittal and coronal images were reconstructed. COMPARISON: 17 FINDINGS: Lower lobe pulmonary fibrosis. The heart is enlarged. Normal liver. Normal gallbladder and extrahepatic biliary system. Normal spleen. Normal pancreas. Normal bilateral adrenal glands. Normal right kidney. Stable hypodensity in the superior l eft kidney. Left renal artery calcifications. Normal visualized stomach. Normal small intestine. There are multiple colonic diverticula consistent with diverticulosis. There is non-visualization of the appendix. Wall thickening of the rectum. This may suggest chronic diverticular change but mild diverticulitis is not excluded. There are calcifications of the abdominal aorta and vascular structures. This is consistent for atherosclerotic disease. There is no abdominal aortic aneurysm. Normal inferior vena cava. Subcentimeter mesenteric lymph nodes. There is a left lower quadrant ostomy noted. There is a left parastomal hernia containing a portion of the stomach. There is no outlet obstruction. Normal urinary bladder. Normal visualized uterus.Total right hip arthroplasty. Normal abdominal wall. There are degenerative changes of the osseous structures. Vertebroplasty changes in the thoracic spine. CT/Abdomen/Pelvis without Cont IMPRESSION : Wall thickening of the rectum. This may suggest chronic diverticular change but mild diverticulitis is not excluded. There is a left parastomal hernia containing a portion of the stomach. There is no outlet obstruction. Other findings as above. Electronically Signed: David Wolfe MD at 18:32 EST , Service support , CC: Anya Bennett NP Firer Tunnel Kiln: Signed 10-Jul-2017 Chest PA and Lateral Result: Comments: See Note; NOTES: [facility] Imaging Services [address] [place] [address] Chest PA and Lateral MR#: [id number] Acct: [id number] Name: SALMA DUENAS Rep #: [id number] : 1935 F 81 From: Shamir Leigh DO PCP: Anya Steward DO Status: REG CLI Study: Chest PA and Lateral Date of Exam: 07/10/17 Exam# [id number] Ordering Dr: Anya Steward DO STUDY: X-RA Y CHEST REASON FOR EXAM: Female, 81 years old. Shortness of breath. CHF. History of non-Hodgkin's lymphoma and pulmonary emboli. TECHNIQUE: PA and lateral views of the chest. COMPARISON: June 16, 2017. FINDINGS: Stable left subclavian Port-A-Cath. The lungs are hypoexpanded. There is chronic interstitial changes throughout both lungs suggesting pulmonary fi brosis. There are small nodular densities in the right perihilar region which appear unchanged. Question small bilateral pleural effusions. The heart remains enlarged. Normal mediastinum and elin. Norm al visualized pulmonary arteries. There is atherosclerotic calcification of the aortic arch with tortuosity. There is demineralization of the osseous structures. There are stable compression deformitie s of the thoracic spine with evidence of vertebral augmentation. Normal visualized ribs, clavicles, and shoulders. There is no demonstrated abnormality of the visualized soft tissue structures of the u pper abdomen. RAD/Chest PA and Lateral IMPRESSION: Certain numbering small bilateral pleural effusions. There is no other significant interval ch miguel when compared to prior study Electronically Signed: Shamir Leigh DO at 15:44 EST Tel [phone], Service support , CC: Anya Steward DO Firer Tunnel Kiln: Signed 26-Jun-2017 Consultation Result: Comments: See Note; NOTES: [facility] Medical Records Department [address] [place] [address] Consultation 06/26/17 1626 MR#: [id number] Acct: [id number] Name: SALMA DUENAS Rep #: [id number] : 1935 81 From: Jasbir Luis MD PCP: Anya Steward DO Status: REG ER Y Location: ED Problem List (1) Partial obstruction of small intestine Status: Acute (2) Peristo mal hernia Status: Acute Reason for Consult Date of Consultation: 06/26/17 History of Present Illness: The patient is a 81 year old F who was admitted to [facility] with a GI bleed and an INR of 16. She was treated with fresh frozen plasma and a transfusion. She subsequently improved and was discharged. Over the last 24 hours she has had increasing abdominal distention and discomfort and virtually no outpu t from her colostomy. She represented to the emergency department and had a CAT scan which once again showed her parastomal hernia which she has had for quite some time. The parastomal hernia is located in the left upper quadrant of the abdomen. It has both small bowel a small component of the stomach and her loop transverse colostomy. In addition she still has stool located within the distal sigmoid and rectal area as well as thickening in this area. She was noted to have an elevated white count on this admission. As well as new pleural effusions. She is not complaining of any shortness of breath o r chest pain. She is not complaining of any nausea or vomiting. Past Medical History Past Medical History (Chronic Problems): Chronic Problems Acquired hypothyroidism (Chronic) Anemia in chronic kidne y disease (Chronic) Collagenous colitis (Chronic) Colostomy status (Chronic) Factor V Leiden (Chronic) Follicular lymphoma (Chronic) History of pulmonary embolism (Chronic) Neutrophilia (Chronic) Non-Ho dgkin lymphoma (Chronic) S/P hip hemiarthroplasty (Chronic) Allergies niacin Allergy (Severe, Verified 06/26/17 11:00) Anaphylaxis swelling of face and throat bee venom protein (honey bee) Allergy (V erified 06/26/17 11:00) Anaphylaxis Home Medications: Ambulatory Orders Medication Instructions Recorded Surgical History: appendectomy, colectomy - In October 2004 she underwent a distal transverse loop colostomy. This was done secondary to thickening of the rectum and sigmoid area. She also underwent an appendectomy at the same time., - - colostomy. Psychiatric History: Depression [employer]CHO[employer] DIRECTOR History: No pertinent SCHO[employer] FUN[employer] DIRECTOR history Smoking Status: Never smoker - *Family History Paternal History Items: - - in 70'sVenous thromboembolic disease Maternal History Items: Stroke - age 65 Review of Systems Constitutional: Denies: Chills, Fever, Weight Change Eyes: Denies: Blurred vision, Pain, Redness, Vision Change HEENT: Denies: Dysphasia, Ear Pain, Eye Pain, Head Aches, Hearing Change s, Sore Throat Cardiovascular: Denies: Chest Pain, Chest Pressure, Chest Tightness, Palpitations Respiratory: Denies: Cough, Hemoptysis, Shortness of breath at rest, Shortness of breath upon exertion, W heezing Gastrointestinal: Reports: Abdominal Pain, Constipation. Denies: Nausea Genitourinary: Denies: Dysuria, Frequency, Hematuria, Urgency Musculoskeletal: Denies: Joint Pain Skin: Denies: Lesions, R emani, Wounds Neurological: Denies: Change in Speech, Confusion, Numbness, Tingling, Seizures Psychiatric: Denies: Anxiety, Depression Endocrine: Reports: Change in Body Habitus. Denies: Heat/ Cold Intole scott, Polydipsia, Polyuria Hematologic/ Lymphatic: Denies: Adenopathy, Easy Bruising Patient Problems: Active and Suspected Problems Peristomal hernia (Acute) - Physical Exam General: Alert, [place] ed x3 HEENT: Atraumatic, PERRLA, EOMI, Normocephalic Lungs: Clear to auscultation Cardiovascular: Regular rate, Regular Rhythm, No murmurs Abdomen: Soft, Hypoactive Bowel Sounds - She has some tendernes s located on the right lower aspect of her abdomen there is no rebound guarding or peritoneal signs, Distended Vital Signs Temp Pulse Resp BP Pulse Ox 96.9 F 111 16 120/57 94 06/26/17 10:58 06/26/17 10 :58 06/26/17 10:58 06/26/17 10:58 06/26/17 10:58 Oxygen Delivery Method Room Air Weight: 63.503 kg Body Mass Index (BMI) 24.0 Laboratory Tests Past 24 Hrs Assessment/Plan Active and Suspected Pr oblems Peristomal hernia (Acute) I believe that she would benefit from IV antibiotics as well as IV hydration. I do not think an NG tube is necessary at this time. I have encouraged her to chew gum and have hard candy and she can have ice chips. There is no good surgical interventions here. I do not think repair of a parastomal hernia with a loop transverse colostomy is going to offer her any brandt g-term success. And although the CAT scan does show some stool within the rectal area taking her to surgery and giving her an and colostomy on the right side of her abdomen is not without significant ri sk secondary to the thickening of the sigmoid colon and rectal area. 06/26/17 1642 <Electronically signed by Jasbir Luis MD> Date Charles Luis MD Cosigner Signature (if applicable): Date CC: Jasbir Luis MD; Anya Steward DO Signed 26-Jun-2017 Emergency Department Summary Result: Comments: See Note; NOTES: [facility] Medical Records Department [address] [place] [address] Emergency Department Summary 06/26/17 1606 MR#: [id number] Acct: [id number] Name: SALMA DUENAS Kenn Rep #: [id number] : 1935 81 From: Anderson Sherwood MD PCP: Anya Steward DO Status: REG ER - ER Visit Summary Date of Service: 06/26/17 Chief Complaint: Abdominal pain, distent ion no stool in ileostomy bag or flatus History of Present Illness: The patient is a 81 F presents with increasing abdominal distention, pain and lack of output for the past several days. She was admit tex on the for similar presentation. She states the pain is worse. She denies fever, chills or night sweats. She does complain of nausea without vomiting. She has a past medical history of non-Hodg kin's lymphoma and has been in remission for 10-15 years. She denies any ocular, visual auditory symptoms. She denies any cardiac or respiratory symptoms. She denies any urologic symptoms. She denies a ny skin lesions. There is no history of trauma. She denies weakness. Please read written note. Physical Examination: Vital signs remarkable for heart rate of 111. HEENT exam is remarkable dry mucosa. H eart is rapid and regular without murmur, gallop or rub. Lungs are clear to auscultation. Abdomen is soft nontender with distention and tympanitic to percussion. There is decreased bowel sounds noted. S he has fullness lateral the stoma site. There is no evidence of umbilical hernia. There is no inguinal hernia appreciated. There is no CVA tenderness noted. She appears pale. Conjunctive is pale. She is alert with a nonfocal neurologic exam. Test Results: White count is 16.6 thousand with 87 segs no bands 5 lymphs. H AND H 9.5 and 29.4. CO2 is 20 with an anion gap of 10. Creatinine is 2.55 with a GFR of 19. INR is 2.3. CT revealed parastomal hernia, possible small bowel obstruction. There is bilateral pleural effusion and free fluid noted in the abdomen. Emergency Department Course and Treatment: With history of Hodgkin's lymphoma distention tympana no stool output CT was obtained to evaluate for obstruction especially since one was obtained 5 days ago. Appropriate blood work was obtained. Becau se of the white count free fluid Zosyn was administered. Since she was seen by Dr. Luis call Dr. Que Gonzales who is on-call. He requests I call Dr. Luis. Dr. Luis has seen patient and would li ke admitted to medicine. Treatment Plan: Surgical consult to Dr. Luis and admission to medicine Disposition: Mid medical surgical floor. Dr. Luis was asked regarding NG and he stated not to plac e one. Impression: 1. Abdominal pain with leukocytosis uncertain cause 2. Partial small bowel obstruction versus ileus 3. Anemia of chronic illness 4. End-stage renal disease, chronic 5. Coumadin induc ed coagulopathy 6. History of non-Hodgkin's lymphoma 7. History of hypothyroidism This note was generated with [employer] Playbookation software. It may contain incorrect words, spelling, and punctuation that were not noted in review of the chart prior to signing ED Disposition - Plan for ED Patient: Chief Complaint: Constipation Referrals: Anya Steward DO [Primary Care Provider] - What to do if y ou have Problems For any increased pain, shortness of breath, bleeding, nausea or vomiting, chest pain, or any unexpected problems, contact your Primary Care Provider. Call [facility] ) or report to the closest Emergency Room. Call 911 if necessary. 06/26/17 1611 <Electronically signed by Anderson Sherwood MD> Date Anderson Sherwood MD Cosigner Signature (If Indicated): Date CC: Jasbir Luis MD; Anya Steward DO 26-Jun-2017 Abdomen/Pel W ORAL Cont Only Result: Comments: See Note; NOTES: [facility] Imaging Services [address] [place] [address] Abdomen/Pel W ORAL Cont Only MR#: [id number] Acct: [id number] Name: SALMA DUENAS Rep #: [id number] : 1935 F 81 From: Nikhil Denson MD PCP: Anya Steward DO Status: REG ER Study: Abdomen/Pel W ORAL Cont Only Date of Exam: 06/26/17 Exam# [id number] Ordering Dr: Anderson Sherwood MD STUDY: CT ABDOMEN AND PELVIS WITHOUT CONTRAST REASON FOR EXAM: Female, 81 years old. Abdominal distention. Constipation. Lymphoma. RADIATION DOSAGE (If Supplied By Facility): CTDIvol = ( 8.20 ) mGy , DLP = ( 391.29 ) mGycm TECHNIQUE: Transaxial images were obtained from the dome of the diaphragm to the symphysis pubis with oral contrast, and without intravenous contrast. Sagittal and coronal imag es were reconstructed. Individualized dose optimization techniques were used for this CT. COMPARISON: 06/19/2017. FINDINGS: Limited views through the lower chest s how chronic fibrotic changes in the lungs. There are bilateral small pleural effusions that have developed since the previous exam. There is mild cardiomegaly. Liver is grossly normal but is surrounded by a small amount of free fluid which was not present previously. Grossly normal gallbladder. Pancreas and spleen are unremarkable. Adrenal glands are unremarkable. No acute abnormalities of the kidne ys. Stable 1.7 cm cyst of the left upper pole. No hydronephrosis. Small amount of free fluid extends down along the paracolic gutters bilaterally. There is a large left parastomal hernia into which a portion of the stomach herniates but the stomach is otherwise negative. Several small bowel loops in the left abdomen especially the lower abdomen are becoming significantly more distended, as much as 4 cm across and may be developing a slightly thick wall. Findings could still be enteritis as suggested previously but at least partial obstruction may exist and also could be related to the large left a bdominal wall hernia. Some normal caliber loops of small bowel are seen in the right lower quadrant. In the large bowel there is moderate to marked fecal retention. Large bowel is normal caliber. Some s hort knuckles of large bowel extending into the left parastomal hernia. In the pelvis, there is fecal material in the rectum that may have a thickened wall and there is diverticulosis of the sigmoid co brandt and distal descending colon. There is calcified plaque of the aorta. There is question of mild retroperitoneal adenopathy. Normal lateral. Atrophic uterus. Degenerative changes are seen throughou t the skeletal structures. There is diffuse demineralization. There is kyphoplasty of T10 and T11. CT/Abdomen/Pel W ORAL Cont Only IMPRESSION: Small bilateral pleural effusions deve loping since previous exam. Small amount of free fluid around the liver and down both paracolic gutters. Increasing diameter of small bowel loops, which could be worsening of enteritis or partial obstru ction. Large left paramedian parastomal hernia containing loops of bowel and a small portion of the stomach. Electronically Signed: Nikhil Denson MD at 14:59 EST , Servic e support , CC: Anya Steward DO; Anderson Sherwood MD Firer Tunnel Kiln: Signed 21-Jun-2017 Emergency Department Summary Result: Comments: See Note; NOTES: [facility] Medical Records Department [address] [place] [address] Emergency Department Summary 06/21/17 1436 MR#: [id number] Acct: [id number] Name: SALMA DUENAS Rep #: [id number] : 1935 81 From: Nishi Murphy MD PCP: Anya Steward DO Status: REG ER - ER Visit Summary Date of Service: 06/21/17 Chief Complaint: [] Lower abdom inal pain for months abnormal CT done Monday History of Present Illness: The patient is a 81 F [] G of lymphoma prior colectomy with colostomy bag she has been having lower abdominal pain for many makayla hs to be evaluated with had a CT scan on Monday, the CT scan apparently was read abnormal and she was instructed come to the emergency department to undergo admission and evaluation by surgery. She kaycee cates her colostomy had almost no output for the last 24 hours she is able to eat and drink but limited no fevers no cough no urinary symptoms. Indicates her lymphoma is in remission but she does see Dr Bernice Mann her oncologist Physical Examination: [] L signs are stable she is awake and alert she is pointing to her lower abdomen head neck unremarkable lungs are clear the heart tones are unremarkable the abdomen is slightly distended there is a colostomy left lower quadrant it there is no output bowel sounds are present there is a nonspecific generalized discomfort to the right and left lower abdomen n o rebound or guarding the backs unremarkable she is awake alert moving all 4 answering questions appropriately Test Results: [] Emergency Department Course and Treatment: [] She will call for her phys icians they would like her evaluated by surgery and potentially admitted for further management of all the above please see the CAT scan report the CAT scan shows quite a bit of wall thickening in the a ntrum of the stomach as well as in the duodenum proximal small bowel there is diverticula in the distal colon and mild wall thickening of the proximal sigmoid there is moderate stool in the rectum there is also also a herniation of small bowel into the ostomy site there is no obvious signs of obstruction at this level but this is in the differential as well as ileus Treatment Plan: [] We did obtain I V fluids screening labs UA we have asked surgery to see the patient and will arrange for admission and other management options per surgery after they have seen her His note her chemistry panel reveals a creatinine of 3.8 her baseline has been anywhere from 2.5-2.8 her CBC is pending Speak with Dr. gomez of surgery, recommended a KUB to look at things today, reviewed her CT scan he also wanted t o come down and evaluate her himself but when he came down the patient had gone to radiology for the KUB he will be back to see her. Feels that in general the CT scan does not support an obvious signs o f obstruction agrees to see her in consultation Disposition: [] Admits stable Impression: [], abdominal pain abnormal abdominal CT, ileus versus small bowel obstruction versus recurrent lymphoma surge ry evaluation underway This note was generated with 1010[employer] dictation software. It may contain incorrect words, spelling, and punctuation that were not noted in review of the chart prior to signing E D Disposition - Plan for ED Patient: Chief Complaint: Abd Pain What to do if you have Problems For any increased pain, shortness of breath, bleeding, nausea or vomiting, chest pain, or any unexpect ed problems, contact your Primary Care Provider. Call [facility] ([phone]) or report to the closest Emergency Room. Call 911 if necessary. 06/21/17 1536 <Electronically signed by Vivienne Murphy MD> Date Nsihi Murphy MD Cosigner Signature (If Indicated): Date CC: Anya Steward DO 21-Jun-2017 Abd Inc Decub and/or Erect Result: Comments: See Note; NOTES: [facility] Imaging Services [address] [address] Abd Inc Decub and/or Erect MR#: [id number] Acct: [id number] Name: SALMA DUENAS Rep # : [id number] : 1935 F 81 From: Vanessa Berrios MD PCP: Anya Steward DO Status: REG ER Study: Abd Inc Decub and/or Erect Date of Exam: 06/21/17 Exam# [id number] Ordering Dr: Herbert Murphy MD STUDY: X-RAY - ABDOMEN/PELVIS REASON FOR EXAM: Female, 81 years old. Low abdominal pain TECHNIQUE: AP supine and upright views of the abdomen and pelvis. COMPARISON: May 15, 2017 FINDINGS: There are chronic changes in both lung bases, left greater than right. There is a port in the left chest. There is an unremarkable bowel gas pattern. There is no d emonstrated free abdominal air. There is no demonstrated abnormality of the major organs. An ostomy projects over the left abdomen. Normal soft tissue structures. There are moderate degenerative cavazos es in the visualized spine. There are kyphoplasty changes in the lower thoracic spine. There are degenerative changes in the left hip. There are arthroplasty changes in the right hip. RAD/Abd Inc Decub and/or Erect IMPRESSION: No acute abnormalities are seen in the abdomen or pelvis. Electronically Signed: Vanessa Berrios MD at 16:4 2 EST Tel Direct: [phone], Service support , CC: Anya Steward DO; Nishi Murphy MD Firer Tunnel Kiln: Signed 19-Jun-2017 Abdomen/Pelvis without Cont Result: Comments: See Note; NOTES: [facility] Imaging Services [address] [place] [address] Abdomen/Pelvis without Cont MR#: [id number] Acct: [id number] Name: SALMA DUENAS Rep #: [id number] : 1935 F 81 From: Vanessa Berrios MD PCP: Anya Steward DO Status: REG CLI Study: Abdomen/Pelvis without Cont Date of Exam: 06/19/17 Exam# [id number] Ordering Dr: Jordan Steward DO STUDY: CT ABDOMEN AND PELVIS WITHOUT CONTRAST REASON FOR EXAM: Female, 81 years old. Left lower quadrant pain RADIATION DOSAGE (If Supplied By Facility): CTDIvol = ( 12.18 ) mGy, DLP = ( 530.66 ) mGycm TECHNIQUE: Transaxial images were obtained from the dome of the diaphragm to the symphysis pubis with oral contrast, and without intravenous contrast. Sagittal and coronal images were reconstr ucted. Individualized dose optimization techniques were used for this CT. COMPARISON: September 07, 2015 FINDINGS: There are moderate chronic changes in the lung bas es. There is no pleural effusion. There is moderate enlargement of the heart. Normal liver. Normal gallbladder and extrahepatic biliary system. Normal spleen. Normal pancreas. Normal bilateral adrenal glands. Both kidneys are small with a few cysts. There is a punctate nonobstructing stone in the midpole of the left kidney. There is no hydronephrosis bilaterally. There is a small hiatal hernia. Th ere is wall thickening in the antrum and pylorus. There is mild wall thickening in the duodenum. Proximal small bowel is prominent. There are diverticula in the distal small bowel. There is wall thicken ing in a few small bowel loops in the pelvis. There are surgical changes in the cecum. There are diverticula in the distal colon and there is mild wall thickening in the proximal sigmoid. There is moder ate stool in the rectum. The appendix is presumed surgically absent. There are marked vascular calcifications. Normal inferior vena cava. Normal retroperitoneum. Normal urinary bladder. There are arcu ate artery calcifications in the uterus. The left ovary is prominent in size without a discrete mass. There are numerous phleboliths in the lower pelvis. There is minimal fluid in the pelvis. An ostomy is present in the left abdomen. There is herniation of small bowel into the ostomy site. There are moderate degenerative changes in the visualized spine. 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 Th ere are compression fractures in the lower thoracic spine with kyphoplasty changes. CT/Abdomen/Pelvis without Cont IMPRESSION: There is wall thi ckening in the antrum and pylorus of the stomach, duodenum, distal small bowel and sigmoid. The findings are nonspecific and can be seen with infection. The findings can also be seen as secondary signs of active lymphoma. There is prominence of the proximal small bowel consistent with an ileus or partial obstruction from the wall thickening. There is herniation of small bowel into the ostomy site wit hout obstruction of the small bowel at this location. There is diverticulosis of the distal small bowel and distal colon. There is minimal ascites. There is no free air. Electronically Signed: Hernando Berrios MD at 19:23 EST Tel Direct: [phone], Service support , CC: Anya Steward DO Firer Tunnel Kiln: Signed 16-Jun-2017 Chest PA and Lateral Result: Comments: See Note; NOTES: [facility] Imaging Services [address] [place] [address] Chest PA and Lateral MR#: [id number] Acct: [id number] Name: SALMA DUENAS Kenn Rep #: [id number] : 1935 F 81 From: Ranulfo Grant MD PCP: Anya Steward DO Status: REG CLI Study: Chest PA and Lateral Date of Exam: 06/16/17 Exam# [id number] Ordering Dr: Anya Steward DO STUDY: X -RAY CHEST REASON FOR EXAM: Female, 81 years old. Shortness of breath TECHNIQUE: Frontal and lateral views of the chest COMPARISON: CT dated 03/13/2017 FINDINGS: A gain noted is a left-sided port with its tip in the superior vena cava. There are stable chronic increased interstitial markings. The lungs are otherwise clear. There are no pleural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 January 16, 2015 and August 29, 2011. Lumbar spine series May 26, 2014. FINDINGS: Left internal jugular port implanted in the left anterior chest wall with the tip in the superior v inocencia cava. No pneumothorax. Mild ascending thoracic aortic aneurysm measuring 4.4 x 4.3 cm in AP and transverse dimensions not significantly changed. Aortic arch is not dilated. The descending thoracic aorta is normal in diameter measuring 2.2 x 2.2 cm. Atherosclerotic calcification of the wall of the thoracic aorta. Dilated pulmonary artery transverse dimension of 3.4 cm not significantly changed. I ncrease in transverse dimensions since July 2011 where the main pulmonary artery measured 3.1 cm . Peripheral areas of fibrosis bilaterally. No focal infiltrates or effusions. Stable 0.8 x 0.7 cm no ncalcified right upper lobe lung nodule since 2011, compatible with a benign nodule. Mild cardiomegaly. No pericardial effusion. Small mediastinal lymph nodes which are not pathologic by size criteria. Post kyphoplasty changes T8, T10 and T11. Old severe compression fracture T6 with old moderate compression fracture T7. There is no demonstrated abnormality of the visualized upper abdomen. CT/Chest without Contrast IMPRESSION: No significant change in mild ascending thoracic aortic aneurysm. Dilated main pulmonary artery not significantly c hanged since August 2015 but slightly increased since August 29, 2011. Findings may represent pulmonary arterial hypertension among other etiologies. Chronic interstitial lung disease. Benign right upper lobe lung nodule. Additional findings as above. Electronically Signed: Darius Ayoub MD at 6:39 EDT , Service support [phone], CC: BELA SAVAGE; Anya Steward DO Firer Tunnel Kiln: Signed 09-Dec-2015 PT D/C of Non Returning Pt (1) Result: Comments: See Note; NOTES: [facility] [address] [place] [address]. [address] [place], [place] [address] Fax REHABILITATION RVICES DISCHARGE SUMMARY MR#: [id number] Acct: [id number] Name: SALMA DUENAS Rep #: [id number] : 1935 80 From: Jarod Michelle DPT, OCS, CSCS Referring DrBernice: Anya Steward DO Status : REG RCR Eval Date: Discharge Date: HP - Discharge Summary (1) - Patient Information SALMA DUENAS was seen in my office for initial evaluation on 09/25/15. The following Plan of Care was established for this patient: Initial Frequency: up to 2x week as needed Initial Duration: Up to 2-4 weeks - Anticipated Interventions Patient/Client Instruction: Educate patient on: Yina n, Plan of Care Comments: HEP For the Purpose of:: To prevent re-injury Therapeutic Exercise to Include: Postural training, Flexibilty training, Active ROM For the Purpose of:: To prevent re-injury Manual Therapy Techniques to Include: Massage, Soft tissue mobilization Comment: pper c/s mm, subocc, scalenes, manual traction For the Purpose of:: To decrease pain, To improve nutrient delivery to tissue Thermo therapy (hot pack): Yes - c/s This patient was last seen in our office 10/26/15. Pertinent comments regarding their Physical therapy will appear below: Pt seen for 8 visits of her plan of care and progressed well meeting all of her goals. She was to continue with HEP and f/u with PT two weeks later but neglected to schedule that visit. Therefore I will dicontinue her from my care du e to nonattendance. At this point I will be discontinuing this patient from physical therapy. I would be happy to see this patient again in the future if found appropriate by the physician. Thank you! Jarod Michelle <Electronically signed by Jarod Michelle DPT, OCS, CSCS> 12/09/15 0704 CC: Anya Steward DO EBG Signed 07-Oct-2015 Chest PA and Lateral Result: Comments: See Note; NOTES: [facility] Imaging Services [address] [place] [address] Verdana 4d Chest PA and Lateral MR#: [id number] Acct: [id number] Name: SALMA MCNAMARA Rep #: [id number] : 1935 F 79 From: Vishal Mendez MD PCP: Anya Steward DO Status: REG CLI Study: Chest PA and Lateral Date of Exam: 10/07/15 Exam# [id number] Ordering Dr : Anya Steward DO STUDY: X-RAY CHEST REASON FOR EXAM: Female, 79 years old. Cough. TECHNIQUE: PA and lateral views of the chest. COMPARISON: Comparison is made with prior study dated January 14, 2015. FINDINGS: A left-sided portacatheter is seen with the tip in the midportion of the superior vena cava. This is unchanged. Surgical clips are seen in th e right axilla. The lungs are clear and expanded. There is no demonstrated pleural abnormality. There is mild cardiac enlargement. Normal mediastinum and elin. Normal visualized pulmonary arterie s. There is atherosclerotic tortuosity of the aortic arch and descending thoracic aorta. There is demineralization of the osseous structures. Increased kyphosis. The patient is status post vertebrop lasty of the T8 and T11 vertebrae. Loss of height of the T6 vertebra. Normal visualized ribs, clavicles, and shoulders. There is no demonstrated abnormality of the visualized soft tissue structures of the upper abdomen. IMPRESSION: Stable examination. No acute infiltrate is seen. Electronically Signed: Vishal Mendez MD at 15:21 EST Te l [phone], Service support [phone], 0091 RAD/Chest PA and Lateral IMPRESSION: Stable examination. No acute infiltrate is seen. Electronically Signed: Eren Mendez MD at 15:21 EST Tel [phone], Service support [phone], CC: Anya Steward DO Firer Tunnel Kiln: Signed 07-Oct-2015 Spirometry (33226) Comments: lil restriction but struggled to do Result: 28-Sep-2015 Inital Evaluation (1) - PT Result: Comments: See Note; NOTES: [facility] [address] [place] [address] Fax REHABILITATION SE RVICES INITIAL EVALUATION MR#: [id number] Acct: [id number] Name: SALMA DUENAS Rep #: [id number] : 1935 79 From: Jarod Michelle DPT, OCS, CSCS Referring Dr.: Anya Steward DO Statu s: REG RCR Insurance: MEDICARE PART A B Eval Date: [facility] Patient's Visit Information SALMA DUENAS is a 79 year old F, referred to Physical Therapy by Anya Steward,, with a diagnosis of neck pain. Date of Evaluation: 09/25/15 Physical Therapist: Jarod Michelle - Visit Plan Frequency: up to 2x week as needed Duration: Up to 2-4 weeks - Subjective Subjective: Was having a hard t chiquis turning neck without pain. Concerned b/c she had lymphoma previously three times. Had a catscan and showed that c5/6 were degenerating. Saw Cornelius who gave her injections in neck and is painfree. Hasn't been painfree in over a month. Unsure of what started it. Sleep is good. Activities are pretty normal, was just hard turning neck.. Not overly active, goes to [employer] and out to eat. Does own ho usework only limited due to back pain. LB limits her walking. - Pain neck Pain Intensity (Out of 10): 0 Pain Intensity Range: 0, 9 Comment: was most of time before injection, worse turning he ad. - Objective C/S AROM 35 extension, 55 b rotation without pain. SB are painfree, flexion is full. UE AROM shoulders to 130 flexion/abd, 70 ext rot and L5 IR. elbows and wrists WFL. sensation UE W NL to gross light touch. Scapular AROM minimally limited in B scap. reflexes 2/3 bi and tri. No tenderness in cervical mm today, bandaids in place from injections. - compression test. Posture is FW he ad and structurally kyphotic upper T/S. Strength UE 4-/5 without myotomal concerns - Goals Goal 1:: remain painfree in c/s Goal Time Frame: 2-4 Weeks Goal 2:: I HEP to minimize future problems wit h pain and neck degeneration. Goal Time Frame: 2-4 Weeks - Rehabilitation Potential Physical Therapy Diagnosis: C/S Degenerative changes. Had Pain management injections yesterday and is feeling 100% better so far today.Plan to f/u as needed next week to ensure pain relief and work on c/s arom and posture. Rehabilitation Potential: Good - Anticipated Interventions Patient/Client Instruction: E ducate patient on: Condition, Plan of Care Comments: HEP For the Purpose of:: To prevent re-injury Therapeutic Exercise to Include: Postural training, Active ROM For the Purpose of:: To prevent re-i fredy Thank you for the opportunity to evaluate your patient. For Medicare and Medicare HMO plans, please review the plan of care and approve it. It will need to be FAXED BACK to us at [phone] for Medicare purposes. Please let me know if there are questions or concerns regarding this plan of care. Physician Signature: Date: <Electronically signed by Jarod Michelle DPT, OCS, CSCS> 09/28/15 0648 CC: Anya Steward DO EB Signed For Medicare only, by signing this I singh sinclair the plan of care. Physicians Signature Date 23-Sep-2015 Lumbar Spine 2 or 3 Views Result: Comments: See Note; NOTES: [facility] Imaging Services [address] [address] Verdana 4d Lumbar Spine 2 or 3 Views MR#: [id number] Acct: [id number] Name: SALMA BRYAN Rep #: [id number] : 1935 F 79 From: Vishal Mendez MD PCP: Anya Steward DO Status: REG CLI Study: Lumbar Spine 2 or 3 Views Date of Exam: 09/23/15 Exam# [id number] O rdering Dr: Gal Shields MD STUDY: X-RAY - LUMBAR SPINE REASON FOR EXAM: Female, 79 years old. Back pain following a lifting injury. TECHNIQUE: 3 view(s) of the lumbar spine were obtained. C OMPARISON: Comparison is made with prior study dated May 26, 2014. FINDINGS: Normal lumbar lordosis. There is no substantial scoliosis. There is a normal ali gnment of the vertebrae. There is generalized demineralization of the vertebral bodies. Prior vertebroplasty with loss of height of the T10-T11 and T8 vertebrae. Normal disc space heights. Facet cherelle nt osteoarthritis. There is atherosclerotic calcification of the abdominal aorta without a demonstrated aneurysm. IMPRESSION: Degenerative changes of the spine , as detailed above. Demineralization of the lumbar vertebrae with prior vertebroplasty of the T8, T10 and T11 vertebrae. Electronically Signed: Vishal Mendez MD at 15:00 EST Te l [phone], Service support [phone], 0046 RAD/Lumbar Spine 2 or 3 Views IMPRESSION: Degenerative changes of the spine, as detailed above. 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 Electronically Signed: Vishal Mendez MD at 15:00 EST Tel [phone], Service support [phone], CC: Gal Shields MD; Anya Steward DO Firer Tunnel Kiln: Signed 18-Sep-2015 Cerv Spine 4 or 5 Views Result: Comments: See Note; NOTES: [facility] Imaging Services [address] [place] [address] Verdana 4d Cerv Spine 4 or 5 Views MR#: [id number] Acct: [id number] Name: SALMA SCANLON Rep #: [id number] : 1935 F 79 From: Brayden Gerardo MD PCP: Anya Steward DO Status: REG CLI Study: Cerv Spine 4 or 5 Views Date of Exam: 09/18/15 Exam# [id number] Ordering Dr: Anya Steward DO STUDY: X-RAY - CERVICAL SPINE REASON FOR EXAM: Female, 79 years old. X-ray for 3 weeks. Bilaterally. No known injury. History of non- Hodgkin's lymphoma diagnosed 3 differe nt times. TECHNIQUE: 5 view(s) of the cervical spine were obtained. COMPARISON: None FINDINGS: Normal anterior atlantoaxial articulation. Normal odontoid pro cess. There is diffuse osteopenia Normal cervical lordosis. Normal vertebral bodies and endplates. There is disc space narrowing at C5-6. There is bilateral foraminal stenosis at C5-6 The soft tis mirian structures are unremarkable. There is a left port IMPRESSION: Osteopenia. 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 Electronically Signed: Brayden Gerardo MD, FACR at 20:09 EST , Service support [phone], CC: Anya Steward DO Firer Tunnel Kiln: Signed 8Feb-2016 Chest without Contrast Result: Comments: See Note; NOTES: [facility] Imaging Services [address] [place] [address] Ronnell 4d Chest without Contrast MR#: [id number] Acct: [id number] Name: SALMA GONSALVES Rep #: [id number] : 1935 F 79 From: Ozzie Messer MD PCP: Anya Steward DO Status: REG CLI Study: Chest without Contrast Date of Exam: 09/07/15 Exam# [id number] Ordering Dr: Felix Parra MD STUDY: CT CHEST WITHOUT CONTRAST REASON FOR EXAM: Female, 79 years old. LYMPHOMA FOLLOW UP LOW ABD PAIN SURG-THORACIC KYPHOPLASTY X2,COLECTOMY/COLOSTOMY RADIATION DOSAGE (If Supplied By Facility): CTDIvol = ( 8.53 ) mGy, DLP = ( 670.30 ) mGycm TECHNIQUE: Transaxial imaging was performed without the administration of intravenous contrast material. COMPARISON: CT - Ches t - 15:17 FINDINGS: A Mediport is seen on the left side. There are interstitial fibrotic changes of the lungs more prominent in lung bases they hav e not significantly changed since the study from 2011 are suggestive of chronic interstitial lung disease.. There is a nodule in the posterior segment of the right lung upper lobe measures 8mm also un changed since the previous study. There is no demonstrated pleural abnormality. Normal heart and pericardium. Normal mediastinum. Normal hilar regions. Normal unenhanced pulmonary arteries. There is aneurysmal dilatation of the ascending aorta measures 4.5 cm in diameter. Old compression fractures are seen in the vertebral bodies of T7, T8, T11. Subacute Fractures are noted at T6 and T10 mo st likely represent osteoporotic fractures. Healed rib fractures are noted on the right side. There is no demonstrated abnormality of the visualized upper abdomen. _ IMPRESSION: Ascending aorta aorta aneurysm measures 4.5 cm. Chronic interstitial lung disease is unchanged since the previous study. Right lung upper lobe nodule measures 8mm. Is stable since t he previous study. Subacute compression fractures of T6 and T10. There is no evidence of recurrent lymphoma. Electronically Signed: Reed Messer MD at 9:57 EST Tel , Service support [phone], CC: Anya Steward DO; Felix Parra Firer Tunnel Kiln: Signed 07-Sep-2015 Abdomen/Pelvis without Cont Result: Comments: See Note; NOTES: [facility] Imaging Services [address] [place] [address] Verdana 4d Abdomen/Pelvis without Cont MR#: [id number] Acct: [id number] Name: SALMA DUENAS Rep #: [id number] : 1935 F 79 From: Ozzie Messer MD PCP: Anya Steward DO Status: REG CLI Study: Abdomen/Pelvis without Cont Date of Exam: 09/07/15 Exam# [id number] Or dering Dr: Felix Parra MD STUDY: CT ABDOMEN AND PELVIS WITHOUT CONTRAST REASON FOR EXAM: Female, 79 years old. LYMPHOMA FOLLOW UP LOW ABD PAIN SURG- THORACIC KYPHOPLASTY X2,COLECTOMY/COLOSTOMY And and and RADIATION DOSAGE (If Supplied By Facility): CTDIvol = ( 8.53 ) mGy, DLP = ( 670.30 ) mGycm TECHNIQUE: Transaxial images were obtained from the dome of the diaphragm to the symphysis p ubis without oral contrast, and without intravenous contrast. Sagittal and coronal images were reconstructed. COMPARISON: None. FINDINGS: There are chronic int erstitial fibrotic changes of the lung bases. The visualized portions of the heart are within normal limits. Normal liver. Normal gallbladder and extrahepatic biliary system. Normal spleen. Normal p ancreas. Normal bilateral adrenal glands. Normal right kidney. Normal left kidney. Normal visualized stomach. Normal small intestine. There are multiple colonic diverticula consistent with divert iculosis. There is a colostomy in the left upper quadrant. There is non-visualization of the appendix. There is diffuse atherosclerotic calcification of the abdominal aorta with elongation and tortu osity, but without a demonstrated aneurysm. Normal inferior vena cava. Normal retroperitoneum. Normal urinary bladder. There is atrophy of the uterus. There is abdominal wall hernia at the colostom y site containing part of the transverse colon without evidence of incarceration or obstruction. There is demineralization of the osseous structures. IMPRESSION: Status post colostomy in the left upper quadrant there is abdominal wall hernia at the colostomy site without evidence of incarceration. Electronically Signed: Reed Messer MD at 9:54 EST Tel , Service support [phone], CC: Anya Steward DO; Felix Parra Firer Tunnel Kiln: Signed 29-Jun-2015 EKG (84190) Comments: nsr no acute chg Result: [MEASUREMENTS ANALYSIS] Date of Test: 06/29/2015 14:05:21; Heart Rate: 66; WY Interval: 180; QRS: 98; QT Interval: 406; Corrected QT Interval (QTc): 416; P Wave Stinnett: 37; QRS Wave Stinnett: -7; T Wave Stinnett: 12; Blood Pressure: 120/78 [ECG DIAGNOSTIC STATEMENTS] Date of Test: 06/29/2015 14:05:21; Summary: Sinus Rhythm WITHIN NORMAL LIMITS 12-Jun-2015 Emergency Department Summary Result: Comments: See Note; NOTES: [facility] Medical Records Department [address] [place] [address] Emergency Department Summary MR#: [id number] Acct: [id number] Name: SALMA DUENAS Rep #: [id number] : 1935 79 From: Octavio Kate MD PCP: Anya Steward DO Status: [facility] ER DATE OF SERVICE: 06/09/2015 CHIEF COMPLAINT: Right arm fistula, possibly c lotted or obstructed. HISTORY OF PRESENT ILLNESS: A 79-year-old female with history of known renal insufficiency never need dialysis 2 years ago with a concern that she ____ right arm fistula placed at the [facility]. It has been doing well. Today, she notes no pulse in it and came in to have it evaluated. She really denies any significant discomfort or swelling on her arm. She is on Coumadin for prior PE. PHYSICAL EXAMINATION: VITAL SIGNS: A 71-year-old female, vital signs are stable, afebrile. GENERAL: She does not look septic, toxic, no acute distress. HEENT: Unremar kable. NECK: Nontender. LUNGS: Clear. HEART: Regular rate and rhythm. No murmur. ABDOMEN: Soft and nontender. EXTREMITIES: Moves all 4. Neurovascularly intact. Specifically, the right biceps area, she has a fistula. There is absolutely no pulse or thrill in it. Otherwise, it is not red, it is not swollen. The forearm is normal in appearance, no swelling, no edema with strong radial pulse. 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 EMERGENCY DEPARTMENT COURSE: I did do screening labs on the patient. She is on Coumadin. Her INR is 1.6 and subtherapeutic. Also her food processing chemist ry panel was unremarkable other than a BUN of 40 and creatinine 2.64. Normally, she runs between 2 and 3.7. I did speak to Dr. Thien Wilkerson. There is nothing to do emergently or aggressively today. He will see her in followup about the fistula obstruction. I have discussed all this with the patient. She will be discharged to home. MD Vipul Giordano C: Anya Canela T: LETICIA J OB: [id number] 06/12/15 0846 <Electronically signed by Octavio Kate MD> Date Octavio Kate MD Cosigner Signature (If Indicated): Date CC: Anya Steward DO Date Dictated: 06/09/15 1353 Date Transcribed: 06/09/15 135 Firer Tunnel Kiln: Signed 09-Jun-2015 Discharge Instruction Result: Comments: See Note; NOTES: [facility] Medical Records Department [address] [place] [address] Discharge Instruction 06/09/15 1353 MR#: [id number] Acct: [id number] Name: SALMA DUENAS Rep #: [id number] : 1935 79 From: Octavio Kate MD PCP: Anya Steward DO Status: DEP ER ED Disposition - Plan for ED Patient: Disposition: Home or Assiste d Living Chief Complaint: General Illness Referrals: Luis Olivas MD [STAFF PHYSICIAN] - As soon as possible Additional Instructions: CALL AND FOLLOW UP WITH DR. WILKERSON What to do if yo u have Problems For any increased pain, shortness of breath, bleeding, nausea or vomiting, chest pain, or any unexpected problems, contact your doctor. Call [facility] ([phone]) or report to the closest Emergency Room. Call 911 if necessary. 06/09/15 1526 <Electronically signed by Octavio Kate MD> Date Octavio sarkar MD Cosigner Signature (If Indicated): Date CC: Anya Steward DO 21-Apr-2015 PT Discharge Summary Result: Comments: See Note; NOTES: [facility] Physical Therapy [address] [place] [address] Fax REHABILITATION SERVICES DISCHARGE SUMMARY MR#: [id number] Acct: [id number] Name: SALMA DUENAS Rep #: [id number] : 1935 79 From: Brandi Mares Referring DrBernice: Gal Shields MD Status: DIS RCR Eval Date: Sandra gamboa Date: 04/20/15 DATE OF SERVICE: DATE OF SERVICE: April 20, 2015 This patient was referred to physical therapy by Dr. Shields with a diagnosis of back pain. She has been seen in [facility] times a total of 10 visits. Her physical therapy has mainly consisted of therapeutic exercise treatments to improve her dynamic lumbar stabilization/lower extremity stability and strength. Vivienne edwards reports approximately 90% improvement since starting physical therapy. She reports she just does not feel the pain in her back as much. She also reports standing and walking are better. She reports having pain much less often now. She is pain-free currently and reports up to 5/10 pain at the worst now. Upon examination, her lumbar movement loss is unchanged and she has no pain with testing. She continues to be upper extremity dependent transfer from sit to stand. Bilateral lower extremity strength is 4/5 with manual muscle testing. She is not tender with palpation of the lumbosacral or thor acic regions. She is independent with a home exercise program and all physical therapy goals have been met. Oswestry equals 16%, [id number], [id number]. I am discharging her to independent home exercise isabel thomas at this time and she is agreeable to discharge. Brandi Mares, PT T: NTS JOB: [id number] <Electronically signed by Brandi Mares > 04/21/15 1419 CC: Anya Steward DO Signed 20-Mar-2015 Inital Evaluation - PT Result: Comments: See Note; NOTES: [facility] [address] [place] [address] Fax REHABILITATION SERVICES INITIAL EVALUATION MR#: [id number] Acct: [id number] Name: SALMA DUENAS Rep #: [id number] : 1935 79 From: Brandi Mares Referring DrBernice: Gal Shields MD Status: REG RCR Insurance: [facility] B Eval Date: [facility] DATE OF SERVICE: 03/19/2015 SUBJECTIVE: This patient was referred to physical therapy by Dr. Shields with a diagnosis of back pain. She reports that she lives alone upstairs, but her grandson and his family live in the lower level of her house. She has complaint of constant low back pain, 2-7/10. She has had chronic low back pain for years and she feels lik e she is currently improving since having a vertebroplasty by Dr. Shields about a month ago. She reports that she has had several compression fractures and several vertebroplasties in the past. She has also had epidural steroid injections. Currently, she reports standing and walking are the worst. Cooking and doing dishes are very difficult. Grocery shopping is also a challenge. She reports decrea sed pain in sitting, in lying, and with pain pills. The pain is not currently disturbing her sleep. She denies increased pain with coughing, sneezing, and straining. She reports abnormal gait with dec reased distance. She denies difficulty initiating urination. PAST MEDICAL HISTORY: Significant for kidney disease and she may need to start dialysis soon. She has had lymphoma 3 times, treated with chemotherapy 3 times. She thinks that it was after the first round of chemotherapy that she got a ____ blockage and had to get a colostomy. This was about 10 years ago. Her first chemotherapy was in 2004 and most recent with either in 2011 or 2012. She reports she also has osteoporosis, varicose veins, and factor V clotting disorder. She has had several falls including a few times when she fainte d while getting chemotherapy and she also fell down her steps about 8 months ago when she slipped. OBJECTIVE: This patient ambulates independently into physical therapy without any assistive devices . Her dynamic balance is good. Her sitting posture is poor. Her standing posture is poor. She has a reduced lumbar lordosis, but no relevant lateral shift. Active correction of her sitting posture de creases her pain. She has increased kyphosis. Bilateral lower extremity strength is 4/5 with manual muscle testing. Bilateral lower extremity light touch sensation is intact and symmetrical. Bilateral lower extremity dural signs are negative. She has poor core strength. She has major lumbar movement loss in all planes except for flexion, which is moderate. She denies increased pain with lumbar ran ge of motion testing today. She is not tender in the spine with light palpation. She is upper extremity dependent to transfer from sit to stand. TREATMENT: The patient was seen today for waldoio n in proper posture control and body mechanics. She responded well to lumbar supports and sitting in the clinic today. ASSESSMENT: This patient is a 79-year-old female with complaint of ____ chronic central low back pain. She is not using any assistive devices today, but reports that she has a cane and uses it as needed. She keeps it in the car when she goes out. Oswestry equals 26%, [id number], R9797-JN. PLAN: We plan to see this patient ____ times a week x10 visits for lumbar soft tissue mobilization as needed, dynamic lumbar stabilization exercise instruction, posture correction, instr uction in proper body mechanics for ADLs and bilateral lower extremity strengthening. She was agreeable with this plan of care. Brandi Mares, PT T: NTS JOB: [id number] <Electronically s igned by Brandi Mares > 03/20/15 0940 CC: Signed For Medicare only, by signing this I certify the plan of care. Physicians Signature Date 16-Jan-2015 Chest without Contrast Result: Comments: See Note; NOTES: [facility] Imaging Services [address] [place] [address] CAT Scan Report MR#: [id number] Acct: [id number] Name: SALMA DUENAS Kenn Rep #: [id number] : 1935 F 79 From: Ozzie Messer MD PCP: Anya Steward DO Status: REG CLI Study: Chest without Contrast Date of Exam: 01/16/15 Exam# [id number] Ordering Dr: Anya Steward DO STUDY: CT CHEST WITHOUT CONTRAST REASON FOR EXAM: Female, 79 years old. Shortness of breath RADIATION DOSAGE (If Supplied By Facility): CTDIvol = ( 7.69 ) mGy, DLP = ( 245.49 ) mGycm TECHNIQUE: High resolution transaxial imaging was performed without the administration of intravenous contrast material. COMPARISON: August 29, 2011 FINDINGS: A Mediport is seen on the left side. There are interstitial fibrotic changes of the lungs more prominent in lung bases they have not significantly changed since the study from 2012 are suggestive of chronic i nterstitial lung disease.. There is a nodule in the posterior segment of the right lung upper lobe measures 8mm also unchanged since the previous study. There is no demonstrated pleural abnormality. Normal heart and pericardium. Normal mediastinum. Normal hilar regions. Normal unenhanced pulmonary arteries. There is aneurysmal dilatation of the ascending aorta measures 4.5 cm in diameter. Ol d compression fractures are seen in the vertebral bodies of T7, T8, T11. New Fractures are noted at T6 and T10 most likely represent osteoporotic fractures. Healed rib fractures are noted on the righ t side. There is no demonstrated abnormality of the visualized upper abdomen. 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 Chronic interstitial lung disease is unchanged since the previous study. Right lung upper lobe nodule measures 8mm. Is stable since the previous study. New compression fractures of T6 and T10. Electronically Signed: Reed Messer MD at 16:01 EDT Tel , Service support [phone], CC: Anya Steward DO Firer Tunnel Kiln: Signed 15-Jan-2015 Bone Scan Whole Body Result: Comments: See Note; NOTES: [facility] Imaging Services [address] [place] [address] Nuclear Medicine Report MR#: [id number] Acct: [id number] Name: SALMA DUENAS ep #: [id number] : 1935 F 79 From: Iván Hearn DO PCP: Anya Steward DO Status: REG CLI Study: Bone Scan Whole Body Date of Exam: 01/15/15 Exam# [id number] Ordering Dr: Anya Steward DO CLINICAL: 79-year-old female with reported history of right rib pain. WHOLE BODY Tc MDP RADIONUCLIDE BONE SCINTIGRAPHY COMPARISON: Plain film radiograph report right ribs 12/15/14, plain fi lm chest radiograph report 01/14/15, CT of the chest report 01/16/15 FINDINGS: Following the intravenous administration of 25.0 mCi of Tc MDP, whole body bone images reveal: 1. Increased radiopha rmaceutical concentration is demonstrated in the right anterolateral fifth-sixth ribs, the sixth-eighth and 10th-11th thoracic vertebra posteriorly on the left and right. 2. An increase in tracer con centration is demonstrated in the acromioclavicular compartments of both shoulders, sternoclavicular and medial glenohumeral compartment of the right shoulder, the bilateral knee articulations, fifth lumbar vertebra posteriorly on the right, left posterior sacrum, bilateral sacroiliac joints. 3. The remaining skeletal structures are scintigraphically unremarkable with normal-appearing renal imag es and urinary bladder activity identified. IMPRESSION: 1. The increase in radiopharmaceutical concentration identified in the right anterolateral fifth- sixth ribs, the sixth-eighth and 10th-11th t horacic vertebra is consistent with trauma-fracture and previous vertebroplasty at the appropriate levels. 2. Degenerative arthrosis is otherwise defined in the bilateral shoulders, right-left knees , fifth lumbar vertebra, the posterior sacrum, right-left sacroiliac joints. Electronically Signed: Iván Hearn DO at 16:30 EDT Tel [phone], Service support [phone], Fax CC: Anya Steward DO Firer Tunnel Kiln: Signed 14-Jan-2015 Chest PA and Lateral Result: Comments: See Note; NOTES: [facility] Imaging Services [address] [place] [address] Radiology Report MR#: [id number] Acct: [id number] Name: SALMA DUENAS Rep #: [id number] : 1935 F 79 From: Sushil Benedict DO PCP: Anya Steward DO Status: REG CLI Study: Chest PA and Lateral Date of Exam: 01/14/15 Exam# [id number] Ordering Dr: Anya Steward DO STUDY: X-RAY CHEST REASON FOR EXAM: Female, 79 years old. Right-sided rib pain, difficulty breathing TECHNIQUE: PA and lateral views of the chest. COMPARISON: Rib study 12/15/14 FINDINGS: Implanted central venous catheter is in similar position, with the tip within the SVC. The lungs remain hyperinflated with prominent interstitial markings. What edenilson ears to be surgical xenia in the right superior mediastinum, with adjacent focal opacity which may represent adjacent scar. There is no demonstrated pleural abnormality. There is mild cardiac enla rgement. Normal mediastinum and elin. Normal visualized pulmonary arteries. There is atherosclerotic calcification of the aortic arch with tortuosity. The bones are diffusely osteopenic. The patient is status post vertebroplasty within 8 and T11, unchanged from prior study. Previous identified right fifth and sixth rib fractures are not clearly seen on this study. These are best visualized on t he oblique view of the rib series. There is no demonstrated abnormality of the visualized soft tissue structures of the upper abdomen. Surgical clips are seen within the right axilla. IMPRESSION: Chronic appearing lung changes. Focal density in the right upper lobe adjacent to surgical staple line may represent a parenchymal scar. The previously identified right-sided rib fractures are not clearly visualized on this examination. Diffuse osteopenia, with findings of previous vertebroplasty. Electronically Signed: Sushil Benedict DO at 2 3:58 EDT Tel , Service support [phone], RAD/Chest PA and Lateral IMPRESSION: Chronic appearing lung changes. Focal density in the right uppe r lobe adjacent to surgical staple line may represent a parenchymal scar. The previously identified right-sided rib fractures are not clearly visualized on this examination. Diffuse osteopenia, wi th findings of previous vertebroplasty. Electronically Signed: Sushil Benedict DO at 23:58 EDT Tel , Service support [phone], CC: Anya Steward DO Firer Tunnel Kiln: Signed 15-Dec-2014 Ribs Uni Min 3V w/PA Chest Result: Comments: See Note; NOTES: [facility] Imaging Services [address] [place] [address] Radiology Report MR#: [id number] Acct: [id number] Name: SALMA DUENAS Rep #: [id number] : 1935 F 79 From: Adal Kelly MD PCP: Anya Steward DO Status: REG CLI Study: Ribs Uni Min 3V w/PA Chest Date of Exam: 12/15/14 Exam# [id number] Ordering Dr: Anya Steward STUDY: X-RAY - UNILATERAL RIBS ( RIGHT ) WITH CHEST REASON FOR EXAM: Female, 79 years old. Right-sided pain under the breast. TECHNIQUE - RIBS: 2 view(s) of the ribs. TECHNIQUE - CHEST: AP chest x-ray. COMPARISON: PA and lateral views of the chest January 22, 2014. FINDINGS - RIBS: There are minimally displaced or angulated fractures of the anterolat eral right fifth and sixth ribs. FINDINGS - CHEST: Left chest wall MediPort again seen with its tip in the superior vena cava. The lungs are expanded with persistent mild prominence of the interst itial markings at this consistent with chronic change. Postsurgical changes seen in the medial right apex. There is no demonstrated pleural abnormality. There is borderline cardiomegaly. Normal medi astinum and elin. Normal visualized pulmonary arteries. There is stable atherosclerotic calcification of the aortic arch. Again seen is prior cement augmentation of the T8 and T11 vertebra. Normal visualized clavicles and shoulders. Surgical clips are noted in the soft tissues of the right axilla/upper arm. There is no demonstrated abnormality of the visualized soft tissue structures of the u pper abdomen. IMPRESSION: RIBS: Fractures of the anterolateral right fifth and sixth ribs. CHEST: 1. Prior right upper lobectomy. Surgical clips also seen in the right axilla/upper arm. 2. Chronic interstitial changes in the lungs. 3. Borderline cardiac enlargement. 4. Left chest wall Jtsavn-g-Sqgw in place. 5. Prior cement augmentation of the T8 and T1 1 vertebra. Electronically Signed: Louis Kelly MD at 20:09 EDT , Service support [phone], RAD/Ribs Uni Min 3V w/PA C hest IMPRESSION: RIBS: Fractures of the anterolateral right fifth and sixth ribs. CHEST: 1. Prior right upper lobectomy. Surgical clips also seen in the right axilla/upper arm. 2. Chronic interst itial changes in the lungs. 3. Borderline cardiac enlargement. 4. Left chest wall Pogwsu-s-Nyvy in place. 5. Prior cement augmentation of the T8 and T11 vertebra. Electronically Signed: Louis meyers MD at 20:09 EDT , Service support [phone], CC: Anya Steward DO Firer Tunnel Kiln: Signed 02-Dec-2014 Dexa Bone Density Study (HP) Result: Comments: See Note; NOTES: [facility] Imaging Services [address] [place] [address] Bone Density Report MR#: [id number] Acct: [id number] Name: SALMA DUENAS Kenn Rep # : [id number] : 1935 F 79 From: Vishal Mendez MD PCP: Anya Steward DO Status: [facility] Study: Dexa Bone Density Study (HP) Date of Exam: 12/02/14 Exam# [id number] Ordering Dr: Anya Steward DO STUDY: DUAL ENERGY X-RAY ABSORPTIOMETRY / DXA REASON FOR EXAM: Female, 79 years old. The patient is postmenopausal. TECHNIQUE: Bone Mineral Density (BMD) measurements of lumbar spine and bilateral hips were obtained. COMPARISON: Comparison is made with prior examination dated February 10, 2011. FINDINGS: Lumbar Spine (L1-L4): g/cm2 (1.073) / T-score (-1.1) / Z-score (0.7) Findings are suggestive of osteopenia with a low fracture risk. There is evidence of increased kyphosis. The patient is status post vertebroplasty of T. 11, T8 and T7 vertebrae. Left Femur Total: g/cm2 (0.749) / T-score (-2.1) / Z-score (-0.2) Left Femoral Neck: g/cm2 (0.758) / T-score (-2.0) / Z-score (0.0) Right Femur Total: g/cm2 (0.655) / T-score (-2.8) / Z-s core (-0.9) Right Femoral Neck: g/cm2 (0.733) / T-score (-2.2) / Z-score (-0.1) The T-Scores on the most recent prior examination were: Lumbar Spine (L1- L4): There has been worsening of bone densit y since the previous examination. Left Femur Total: which represents a worsening of 11.9%. Right Femur Total: which represents a worsening of 16.1%. IMPRESSION : The patient is considered osteopenic as outlined below according to World Sony Organization (WHO) criteria with a moderate fracture risk. There has been worsening of bone density since the previou s examination. Reference Information: The T-score is the number of standard deviations above or below the standard which is normal for young adults at their pea k bone mineral density. The World Health Organization (WHO) interprets the T- scores as follows: Above -1 Normal bone density Between -1 and -2.5 Osteopenia Equal to / or below -2.5 Osteoporosis As a practical clinical guideline, osteopenia may be graded as follows: Mild -1 through -1.5 Moderate -1.6 through -2.0 Severe -2.1 through -2.4 The Z- score is the number of standard deviations abo ve or below age-matched controls. A Z-score of less than -1.5 would be considered abnormal. References: 1. NIH Osteoporosis and Related Bone Diseases http://www.osteo.org 2. International Society f or Clinical Densitometry http://www.iscd.org 3. National Osteoporosis Foundation http://www.nof.org Electronically Signed: Vishal Mendez MD at 9:28 EDT Tel [phone], Service sup port [phone], CC: Anya Steward DO Firer Tunnel Kiln: Signed 24-Oct-2014 Hip min 2 Views Result: Comments: See Note; NOTES: [facility] Imaging Services [address] [place] [address] Radiology Report MR#: [id number] Acct: [id number] Name: SALMA DUENAS Rep #: [id number] : 1935 F 78 From: Dave Castanon MD PCP: Anya Steward DO Status: PRE CLI Study: Hip min 2 Views Date of Exam: 10/24/14 Exam# [id number] Ordering Dr: Felix Parra MD STUDY: X- RAY - RIGHT HIP REASON FOR EXAM: Female, 78 years old. Right hip pain. TECHNIQUE: 2 view(s) of the hip. COMPARISON: None. FINDINGS: Normal femoral head, ne ck, intertrochanteric region and visualized proximal femur. Normal acetabulum. Normal hip joint. Normal visualized superior and inferior pubic rami and ischial tuberosities. IMPRESSION: Normal x-ray examination of the hip. Electronically Signed: Dave Castanon MD at 19:29 EDT , Service support [phone], CC: Anya Steward DO; Felix Parra Firer Tunnel Kiln: Signed 20-Oct-2014 Inital Evaluation - PT Result: Comments: See Note; NOTES: [facility] [address] [place] [address] Fax REHABILITATION SERVICES INITIAL EVALUATION MR#: [id number] Acct: [id number] Name: SALMA DUENAS Rep #: [id number] : 1935 78 From: Mary Lou Hinkle Referring Dr.: Anya Steward DO Status: REG RCR Insurance : MEDICARE PART A B Eval Date: AAR DATE OF SERVICE: 10/16/2014 Salma Duenas is a 78-year-old female referred to physical therapy by Dr. Steward with a medical diagnosis of sciatica. SUBJ ECTIVE: The patient reports that this came on approximately a week ago. She has had back problems on and off for years, but this flared up her sciatica, it has been approximately 1 week and it does not feel like her normal back pain. Pain at its worst is a 9/10, best is 2/10, currently a 2/10. No radiating pain, no numbness and tingling and she reports the pain is sharp. Aggravated by walking, bending and movement. Eases are sitting. The patient reports that she has had no x-rays and her sleep is not disturbed. She sees Dr. Shields for injections. Her last one was approximately a month ago and she has another one scheduled for soon. She has had cancer multiple times and she has fallen from passing out, which has increased her back problems. She currently still has cancer, but it is n ot progressing and she is not currently taking chemotherapy. The patient reports that she saw Dr. Steward, who gave her muscle relaxers and antibiotic and another one, but she is unsure of the name o f them. She has been using a cane for approximately a week. She lives in a 1- story home with 1 step to get in, but she is able to negotiate this using the wall. She is fully independent. She drives. S he is having a harder and harder time shopping because she does not have the endurance to do it. She reports that she is still doing laundry, but she has given the vacuum to the kids. She lives with h er grandchildren and great-grandchildren living below her, so they can keep an eye on her and she can keep an eye on them. PAST MEDICAL HISTORY: Includes cancer, back pain, right arm fistula and k idney problems. OBJECTIVE: POSTURE: Forward head, rounded shoulders, increased kyphosis. GAIT: Deviated. She has decreased stance time on the right lower extremity and is using a single point cane. PALPATION: Tender along the ischial tuberosity. RANGE OF MOTION: Within functional limits in all planes. SENSATION/REFLEXES: Intact. FLEXIBILITY: Hamstrings have a severe restriction. Gastroc has a severe restriction. Piriformis has a severe restriction. STRENGTH: Hip strength is 4-/5 throughout. Knee flexion and extension is 4+/5. Dorsiflexion and plantarflexion 5/5. BALANCE: The patient is able to weight shift; however, she is unable to single leg stance. SPECIAL TESTS: Ascend and descend stairs nonreciprocally. Oswestry score of 40%, G code of 8978 CK, G8979 CJ. INITIAL TREATME NT EVALUATION: Educated the patient on diagnosis and plan of care. The patient is agreeable to plan of care. Instructed the patient on home exercise program, which included a hamstring stretch and p iriformis stretch. ASSESSMENT: Salma is a 78-year-old female referred to physical therapy with a medical diagnosis of sciatica. The patient presents with hypomobility. The patient has decreased lower extremity strength, flexibility, muscular endurance and abnormal gait pattern. The patient's rehabilitation potential is fair. The patient will benefit from skilled physical therapy to solve the following problems and meet the following goals. PROBLEM LIST: 1. Decreased knowledge of home exercise program. 2. Decreased lower extremity strength. 3. Decreased flexibility. 4. Abnormal gai t. 5. Increased pain with ADLs. GOALS: 1. The patient will be independent with home exercise program progression. 2. The patient will demonstrate 5/5 strength in lower extremity where deficit to e ase ADLs. 3. The patient will demonstrate mild flexibility deficit in the hamstrings and piriformis to ease ADLs. 4. The patient will ambulate greater than 300 feet with a normalized gait pattern. 5. The patient will report 0/10 pain for 1 week and return to all normalized activities. PLAN OF CARE: The patient will be seen 2 times a week for 4 weeks. The patient will be educated on diagno sis and plan of care. The patient will be educated in home exercise program progression. Interventions to include therapeutic exercise, therapeutic activity, neuromuscular education, gait and manual modalities. The patient's discharge plan is independent with a home exercise program and return to normalized activities with decreased pain. Mary Lou Hinkle DPT T: LETICIA JOB: [id number] &#60 ;Electronically signed by Mary Lou Hinkle > 10/20/14 1514 CC: Signed For Medicare only, by signing this I certify the plan of care. ____ Physicians Signature Date 26-May-2014 Lumbar Spine 2 or 3 Views Result: Comments: See Note; NOTES: [facility] Imaging Services [address] [place] [address] Radiology Report MR#: [id number] Acct: [id number] Name: SALMA DUENAS Rep #: [id number] : 1935 F 78 From: Shamir Leigh DO PCP: Anya Steward DO Status: REG CLI Study: Lumbar Spine 2 or 3 Views Date of Exam: 05/26/14 Exam# [id number] Ordering Dr: Gal Shields MD: X-RAY - LUMBAR SPINE REASON FOR EXAM: Female, 78 years old. Mid and lower back pain. TECHNIQUE: 3 view(s) of the lumbar spine were obtained. COMPARISON: None ____ FINDINGS: Normal lumbar lordosis. There is no substantial scoliosis. There is a normal alignment of the vertebrae. There is marked generalized osteopenia. There is evidence of vertebral augm entation and T11 and T8. There is multi-level degenerative disc disease with multi-level disc space narrowing. There is no other loss of vertebral axial height or evidence of fracture. There is diffus e degenerative facet disease. There is atherosclerotic calcification of the abdominal aorta without a demonstrated aneurysm. IMPRESSION: 1. Osteopenia and deg enerative changes of the lumbar spine. 2. Evidence of vertebral augmentation at T8 and T11. Electronically Signed: Shamir LeighDO at 16:47 EDT Tel [phone], Service support , CC: Gal Shields MD; Anya Steward DO Firer Tunnel Kiln: Signed 26-May-2014 Thoracic Spine 3 Views Result: Comments: See Note; NOTES: [facility] Imaging Services [address] [place] [address] Radiology Report MR#: [id number] Acct: [id number] Name: SALMA DUENAS Rep #: [id number] : 1935 F 78 From: Federico Galeas DO PCP: Anya Steward DO Status: REG CLI Study: Thoracic Spine 3 Views Date of Exam: 05/26/14 Exam# [id number] Ordering Dr: Gal Shields MD STUDY: X-RAY - THORACIC SPINE REASON FOR EXAM: Female, 78 years old. Pain in lower back TECHNIQUE: 3 view(s) of the thoracic spine were obtained. COMPARISON: None. FINDINGS: Mildly increased kyphosis of the thoracic spine. Compression deformity of T6, T7, T8, and T11. Previous vertebroplasty of T8 and T11. There is no substantial scoliosis. Normal thoracic vert ebrae and endplates. Normal disc space heights. Mild osteopenia. The soft tissue structures are unremarkable. There is a left-sided venous catheter with tip over the SVC. IMPRESSION: Old compression deformity of T6-T8 and T11 segments of the thoracic spine. Vertebroplasty of T8 and T11. Electronically Signed: Federico Galeas DO at 19:00 EDT Tel [phone], Service support [phone], CC: Gal Shields MD; Anya Steward DO Firer Tunnel Kiln: Signed 26-May-2014 Thoracic Spine 3 Views Result: Comments: See Note; NOTES: [facility] Imaging Services [address] [place] [address] Radiology Report MR#: [id number] Acct: [id number] Name: SALMA DUENAS Rep #: [id number] : 1935 F 78 From: Federico Galeas DO PCP: Anya Steward DO Status: REG CLI Study: Thoracic Spine 3 Views Date of Exam: 05/26/14 Exam# [id number] Ordering Dr: Gal Shields MD ADDENDU M by Federico Galeas DO on 05/26/14 at 1902 ADDENDUM ADDENDUM: When compared to a study from April 29, 2014, there is increasing compression of T7, and especially T6 segment. Electronically Signed: Federico Galeas DO at 19:02 EDT Tel [phone], Service support [phone], Fax 05/26/14 190 Date cc: Gal Shields MD; Anya Steward DO * Signed STUDY: X-RAY - THORACIC SPINE REASON FOR EXAM: Female, 78 years old. Pain in lower back TECHNIQUE: 3 view(s) of the thoracic spine were obtained. COMPARISON: None. FINDINGS: Mildly increased kyphosis of the thoracic spine. Compression deformity of T6, T7, T 8, and T11. Previous vertebroplasty of T8 and T11. There is no substantial scoliosis. Normal thoracic vertebrae and endplates. Normal disc space heights. Mild osteopenia. The soft tissue structures are unremarkable. There is a left-sided venous catheter with tip over the SVC. IMPRESSION: Old compression deformity of T6-T8 and T11 segments of the thoracic sp ine. Vertebroplasty of T8 and T11. Electronically Signed: Federico Galeas DO at 19:00 EDT Tel [phone], Service support [phone], RAD/Thoracic Sp ine 3 Views IMPRESSION: Old compression deformity of T6-T8 and T11 segments of the thoracic spine. Vertebroplasty of T8 and T11. Electronically Signed: Federico Galeas DO at 19:00 EDT Tel [phone], Service support [phone], CC: Gal Shields MD; Anya Steward DO [employer]: Signed 19-May-2014 Upper GI w/BA Swallow Result: Comments: See Note; NOTES: [facility] Imaging Services [address] [place] [id number] Radiology Report MR#: [id number] Acct: [id number] Name: SALMA DUENAS Rep #: [id number] : 1935 F [id number] From: Vishal Mendez MD PCP: Anya Steward DO Status: REG CLI Study: Upper GI w/BA Swallow Date of Exam: 05/19/14 Exam# [id number] Ordering Dr: Felix Parra MD STUDY: X-RAY - ESOPHAGUS (BARIUM SWALLOW) WITH FLUOROSCOPY REASON FOR EXAM: Female, 78 years old. The patient has a history of lung cancer. TECHNIQUE: Multiple view(s) of the esophagus were obtai rush following swallowing of barium. FLUOROSCOPY TIME (if supplied): (0:24) minutes/seconds COMPARISON: None. FINDINGS: A left-sided portacatheter is seen wit h the tip in the midportion of the superior vena cava. There is no demonstrated esophageal foreign body. There is no demonstrated stricture or mucosal abnormality. Normal gastroesophageal junction, without a demonstrated hiatal hernia. The patient ingested a 12 mm tablet of barium without any difficulty. There is atherosclerotic tortuosity of the aortic arch and descending thoracic aorta. Nor mal visualized pulmonary parenchyma. There is evidence of prior vertebroplasty of a mid and lower dorsal vertebrae. IMPRESSION: Normal plain film x-ray examina tion (barium swallow) of the esophagus. Electronically Signed: Vishal Mendez MD at 14:20 EDT Tel [phone], Service support [phone], STUDY: AIR-CONTRAST UP PER GI SERIES. REASON FOR EXAM: Female, 78 years old. The patient has a history of lung cancer. FLUOROSCOPY TIME (if supplied): (0:25) minutes/seconds TECHNIQUE: The patient ingested barium. Mult iple images of the esophagus, stomach and duodenum were then obtained. COMPARISON: None. FINDINGS: The esophagus is unremarkable. There is no evidence of mass lesion. There is no evidence of obstruction. There is no evidence of gastroesophageal reflux. The stomach and duodenum are unremarkable. No mass lesion is seen. There is no evidence of ulceration. IMPRESSION: Unremarkable examination. Electronically Signed: Vishal Mendez MD at 14:21 EDT Tel [phone], Service support [phone], CC: Anya Parra [employer]n: Signed 29-Apr-2014 Lumbar Spine 2 or 3 Views Result: Comments: See Note; NOTES: [facility] Imaging Services [address] [place] [address] Radiology Report MR#: [id number] Acct: [id number] Name: SALMA DUENAS Rep #: : [id number] F [id number] From: Marshall Chandler MD PCP: Anya Steward DO Status: REG CLI Study: Lumbar Spine 2 or 3 Views Date of Exam: 04/29/14 Exam# [id number] Ordering Dr: Gal Shields MD STUDY: X-RAY - LUMBAR SPINE REASON FOR EXAM: Female, 78 years old. Back pain, history of cancer and fainting spells. TECHNIQUE: Two view(s) of the lumbar spine were obtained. COMPARISON: None FINDINGS: There is an exaggerated lumbar lordosis. Diffuse osteopenia T11 and T8 kyphoplasties. Status post decompression laminectomy at L5 with osseous L4-5 fu eric. There is a normal alignment of the vertebrae. Normal vertebral bodies and endplates. Severe disc space narrowing at L5-S1. Atherosclerotic vascular disease. __ IMPRESSION: Diffuse osteopenia with prior kyphoplasty at T8 and T11. Status post posterior spinal surgery. Severe disc space narrowing at L5-S1. Electronically Signed: Marshall Chandler MD at 23:47 EDT , Service support [phone], CC: Gal Shields MD; Anya Steward DO [employer]n: Signed 29-Apr-2014 Thoracic Spine 3 Views Result: Comments: See Note; NOTES: [facility] Imaging Services [address] [place] [address] Radiology Report MR#: [id number] Acct: [id number] Name: SALMA DUENAS Rep #: : [id number] F [id number] From: Marshall Chandler MD PCP: Anya Steward DO Status: REG CLI Study: Thoracic Spine 3 Views Date of Exam: 04/29/14 Exam# [id number] Ordering Dr: Gal Shields MD STUDY: X-RAY - THORACIC SPINE REASON FOR EXAM: Female, 78 years old. Back pain and history of cancer with fainting spells. TECHNIQUE: Three view(s) of the thoracic spine were obtained. COMPARISON : None. FINDINGS: There is an increase in the normal thoracic kyphosis along with diffuse osteopenia.. There is no substantial scoliosis. Status post T8 and T11 kyphoplasties. There is multilevel disc space narrowing of the thoracic spine. The soft tissue structures are unremarkable. IMPRESSION: Kyphosis, osteopenia a nd two-level kyphoplasties. Electronically Signed: Marshall Chandler MD at 0:37 EDT , Service support [phone], CC: Gal Shields MD; Anya Steward DO [employer]n: Signed 28-Apr-2014 PET/CT Tumor Base -Thigh Subs Result: Comments: See Note; NOTES: [facility] Imaging Services [address] [place] [address] PET Scan Report MR#: [id number] Acct: [id number] Name: SALMA DUENAS Rep #: [id number] : 1935 F 78 From: Iván Hearn DO PCP: Anya Steward DO Status: REG CLI Study: PET/CT Tumor Base -Thigh Subs Date of Exam: 04/28/14 Exam# [id number] Ordering Dr: Felix Parra MD INDICATIONS: A 78-year-old female with history of lymphoma presenting for restaging examination. COMPARISON EXAMINATION: Previous FDG PET study dated 12/11/12, CT of the abdomen and pelvis repor t dated 01/20/14. INDEX LESION SIZE SUV INTERPRETATION NEW: Left upper abdomen proximal gastric body-nodular 15.7 mm (frame 189) 2.7 May warrant further investigation with direct visualization bernardo howell to the quantitative degree of uptake TECHNIQUE: Following the intravenous administration of 16.3 mCi of F-18 deoxyglucose, multiplanar image acquisitions of the neck, chest, abdomen and pelvis to level of mid thigh, obtained at one hour post radiopharmaceutical administration contemporaneously interpreted with the current CT of the neck, chest, abdomen and pelvis to level of mid thigh, da tex 04/28/14 via coregistration and prior FDG PET study dated 12/11/12, CT of the abdomen and pelvis report dated 01/20/14 reveal: FINDINGS: 1. An increase in glucose metabolism appears newly visual ized in the proximal gastric body associated with soft tissue thickening generating a calculated maximum standard uptake value of 2.8. The maximal axial diameter of the corresponding metabolic abnorm ality is approximately 15.7 mm (transverse). 2. Normal physiologic distribution of the radiopharmaceutical is apparent in the hepatic (2.4) and splenic parenchyma, both renal units, bladder and vis ualized intestinal tract. There is uniform distribution of the radiopharmaceutical concentration compared on the cerebellar hemispheres and cerebral cortex. Diffuse intestinal tract activity is noted throughout all four quadrants of the abdominal-pelvic retroperitoneum, mesentery consistent with normal physiologic distribution of the radiopharmaceutical. Increased glucose concentration is demonst rated in the eighth and eleventh thoracic vertebrae corresponding to apparent vertebroplasty. 3. Pertinent CT findings are as follows. CHEST: Atherosclerotic calcification is defined in the thoracic aorta without evidence of dilatation, aneurysm formation. Coronary arterial calcification is observed. Jayc-J-Egbn-MediPort placement is noted. Scattered mediastinal and several left axillary soft t issue densities are non-glucose avid. A noncalcified parenchymal density redefined in the right mid posterior hemithorax pulmonary parenchyma remains ametabolic and morphologically stable. ABDOMEN AN D PELVIS: Atherosclerotic calcification is defined in the abdominal aorta without evidence of dilatation, aneurysm formation. Pelvic arterial calcification is observed. There is an apparent visualized colostomy noted in the left lower anterior pelvic wall. Calcifications are noted in the bilateral lower hemipelvis contiguous to the uterus, adnexal regions. SKELETAL: Degenerative changes defined i n the cervical, thoracic and lumbar spine demonstrate no evidence for glucose hypermetabolism. Vertebroplasty is demonstrated at the level of the eighth and eleventh thoracic vertebrae. IMPRESSION: 1. Enhanced glucose metabolism currently defined in the left upper abdomen contiguous to the proximal gastric body may be further investigated with direct visualization secondary to the quantitative degree of uptake and nodular presentation. 2. Diffuse intestinal tract distribution of radiopharmaceutical noted throughout all four quadrants of the abdominal- pelvic retroperitoneum and mesentery reveal no morphologic changes on review of diagnostic CT of the abdomen and pelvis report dated 01/20/14. 3. Overall, compared to the prior FDG PET study dated 12/10/12, the increase in glucose meta bolism noted in the proximal gastric body may warrant further investigation with direct visualization as described above. Electronic Signature Iván Hearn D.O. Electronically Signed: Iván Hearn DO at 22:10 EDT Tel [phone], Service support [phone], CC: Anya Steward DO; Felix Parra [employer]n: Signed 10-Feb-2014 Operative Report Result: Comments: See Note; NOTES: [facility] Medical Records Department [address] [place] [address] Operative Report 02/10/14 0829 MR#: [id number] Acct: [id number] Name: SALMA DENNISON Rep #: [id number] : 1935 78 From: Justine Caldwell MD PCP: Anya Steward DO Status: REG CLI Y Location: EN Report of Operation Date of Procedure: 02/10/14 Pre-Operative Diag nosis: abnormal finding on CT scan of the stomach Post-Operative Diagnosis: same Surgery/Procedure Performed:: EGD Type of Anesthesia:: IV Sedation - 4 mg versed, 50 micrograms of fentanyl, xylocain e spray to posterior pharynx Specimen's removed: none Drains: none Estimated Blood Loss: none Fluids Replaced: 300 cc RL Description of Procedure: After informed consent was given, the patient was brought to the endoscopy suite and placed in the upright sitting position. Appropriate cardiac, blood pressure , and pulse oximetry monitoring was placed. After stable vital signs were noted , the brayden ent was given intravenous conscious sedation. The posterior pharynx was sprayed with lidocaine spray times two and a bite block was placed. The patient was then placed in the left lateral decubitis po sition. The upper endoscope was lubricated and inserted into the patient s mouth and then carefully placed into the patient s throat. The patient was asked to swallow and the endoscope was then easil y advanced into the patient s esophagus. The endoscope was further advanced down into the patient s stomach, then past the pylorus, then past the duodenal bulb and then to the second portion of the d uodenum. There were no lesions noted in the duodenum. The endoscope was then retracted back into the stomach. A retroflex view of the stomach revealed no evidence of any masses. No ulcers, no stricture s, no suspicious lesions were noted. The endoscope was retracted into the esophagus, where any insufflated gas in the stomach was aspirated out. The gastroesophageal junction was measured at 40 cm fr om the patient s teeth and appeared normal. The remainder of the esophagus was normal. The upper endoscope was removed intact. - Complications none noted - Admit VTE Documentation VTE Present on Admission: No - low risk procedure VTE Mechan Device Prophylaxis: None VTE Pharm Prophylaxis ordered?: No Reason prophylaxis not ordered:: Surgical contraindication 02/10/14 1112 <[facility] signed by Justine Caldwell MD> Date Justine Caldwell MD CC: Anya Steward DO; Justine Caldwell MD; Felix Parra Signed Immunization Name Dates Details Influenza (3 years and up) on: 13-Apr-2009 Comments: doen [place] 0.5 [place] [id number] 4p exp 10 Pneumococcal (2 years and up) on: 13-Apr-2009 Comments: 0.5cc given im rt dltd lot [id number] exp 01-01-10 Family History Unknown Family Member Name Dates Details Father Comments: Colon [place], at 75 Status: Active Mother Comments: DM, at 67 stroke Status: Active Sister 1 Comments: Colon [place] Status: Active Social History Name Dates Details Caffeine Use Comments: 1-2 QD Status: Active Exercise History Comments: Walks when possible, has done yoga Status: Active Living Situation Comments: , heterosexual Status: Active 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 Comments: 06/01/11, 10/28/11 Status: Active Non Smoker/No Tobacco Use Status: Inactive Smoking Status Name Dates Details Never smoker Vital Signs Date Test Result Details :09 Temperature 98 f Comments: Method: Temporal Pulse 94 /min Comments: Pattern: Regular Respiration Rate 16 /min Comments: Pattern: Unlabored O2 SAT 98 % Comments: Room air BP Systolic 110 mm[Hg] Comments: Patient Position: Sitting; Cuff Location: Left Arm; Cuff Size: Standard BP Diastolic 72 mm[Hg] Comments: Patient Position: Sitting; Cuff Location: Left Arm; Cuff Size: Standard Weight 141 lb Height 65 in Body Mass Index Calculated 23.46 kg/m2 Body Surface Area Calculated 1.71 m2 :53 Temperature 97.7 f Comments: Method: Temporal Pulse 74 /min Comments: Pattern: Regular Respiration Rate 16 /min Comments: Pattern: Unlabored O2 SAT 97 % Comments: Room air BP Systolic 116 mm[Hg] Comments: Patient Position: Sitting; Cuff Location: Left Arm; Cuff Size: Standard BP Diastolic 68 mm[Hg] Comments: Patient Position: Sitting; Cuff Location: Left Arm; Cuff Size: Standard Weight 141 lb Height 65 in Body Mass Index Calculated 23.46 kg/m2 Body Surface Area Calculated 1.71 m2 :03 Temperature 96.7 f Comments: Method: Temporal Pulse 89 /min Comments: Pattern: Regular Respiration Rate 18 /min Comments: Pattern: Unlabored O2 SAT 96 % Comments: Room air BP Systolic 118 mm[Hg] Comments: Patient Position: Sitting; Cuff Location: Left Arm; Cuff Size: Standard BP Diastolic 68 mm[Hg] Comments: Patient Position: Sitting; Cuff Location: Left Arm; Cuff Size: Standard Weight 141 lb Height 65 in Body Mass Index Calculated 23.46 kg/m2 Body Surface Area Calculated 1.71 m2 :23 Temperature 97.4 f Comments: Method: Temporal Pulse 85 /min Comments: Pattern: Regular Respiration Rate 18 /min Comments: Pattern: Unlabored O2 SAT 97 % Comments: Room air BP Systolic 120 mm[Hg] Comments: Patient Position: Sitting; Cuff Location: Left Arm; Cuff Size: Standard BP Diastolic 78 mm[Hg] Comments: Patient Position: Sitting; Cuff Location: Left Arm; Cuff Size: Standard Weight 141 lb Height 65 in Body Mass Index Calculated 23.46 kg/m2 Body Surface Area Calculated 1.71 m2 :28 Pulse 78 /min Comments: Pattern: Regular Respiration Rate 18 /min Comments: Pattern: Unlabored O2 SAT 95 % Comments: Room air BP Systolic 122 mm[Hg] Comments: Patient Position: Sitting; Cuff Location: Left Arm; Cuff Size: Standard BP Diastolic 80 mm[Hg] Comments: Patient Position: Sitting; Cuff Location: Left Arm; Cuff Size: Standard Weight 141 lb Height 65 in Body Mass Index Calculated 23.46 kg/m2 Body Surface Area Calculated 1.71 m2 :59 Temperature 98.2 f Comments: Method: Temporal Pulse 76 /min Comments: Pattern: Regular Respiration Rate 18 /min Comments: Pattern: Unlabored O2 SAT 97 % Comments: Room air BP Systolic 134 mm[Hg] Comments: Patient Position: Sitting; Cuff Location: Left Arm; Cuff Size: Standard BP Diastolic 70 mm[Hg] Comments: Patient Position: Sitting; Cuff Location: Left Arm; Cuff Size: Standard Weight 141 lb Height 65 in Body Mass Index Calculated 23.46 kg/m2 Body Surface Area Calculated 1.71 m2 :38 Pulse 103 /min Comments: Pattern: Regular Respiration Rate 18 /min Comments: Pattern: Unlabored O2 SAT 98 % Comments: 2L O2 BP Systolic 122 mm[Hg] Comments: Patient Position: Sitting; Cuff Location: Left Arm; Cuff Size: Standard BP Diastolic 70 mm[Hg] Comments: Patient Position: Sitting; Cuff Location: Left Arm; Cuff Size: Standard Weight 141 lb Height 65 in Body Mass Index Calculated 23.46 kg/m2 Body Surface Area Calculated 1.71 m2 :21 Pulse 74 /min Comments: Pattern: Regular Respiration Rate 18 /min Comments: Pattern: Unlabored O2 SAT 99 % Comments: 2L O2 BP Systolic 168 mm[Hg] Comments: Patient Position: Sitting; Cuff Location: Left Arm; Cuff Size: Standard BP Diastolic 98 mm[Hg] Comments: Patient Position: Sitting; Cuff Location: Left Arm; Cuff Size: Standard Weight 141 lb Height 65 in Body Mass Index Calculated 23.46 kg/m2 Body Surface Area Calculated 1.71 m2 :26 Pulse 119 /min Comments: Pattern: Regular Respiration Rate 16 /min Comments: Pattern: Unlabored O2 SAT 98 % Comments: Room air BP Systolic 126 mm[Hg] Comments: Patient Position: Sitting; Cuff Location: Left Arm; Cuff Size: Standard BP Diastolic 72 mm[Hg] Comments: Patient Position: Sitting; Cuff Location: Left Arm; Cuff Size: Standard Weight 141 lb Height 65 in Body Mass Index Calculated 23.46 kg/m2 Body Surface Area Calculated 1.71 m2 :49 Temperature 98.2 f Comments: Method: Temporal Pulse 77 /min Comments: Pattern: Regular Respiration Rate 16 /min Comments: Pattern: Unlabored O2 SAT 99 % Comments: Room air BP Systolic 130 mm[Hg] Comments: Patient Position: Sitting; Cuff Location: Left Arm; Cuff Size: Standard BP Diastolic 82 mm[Hg] Comments: Patient Position: Sitting; Cuff Location: Left Arm; Cuff Size: Standard Weight 141 lb Height 65 in Body Mass Index Calculated 23.46 kg/m2 Body Surface Area Calculated 1.71 m2 :10 Pulse 70 /min Comments: Pattern: Regular Respiration Rate 16 /min Comments: Pattern: Unlabored O2 SAT 97 % Comments: Room air BP Systolic 154 mm[Hg] Comments: Patient Position: Sitting; Cuff Location: Left Arm; Cuff Size: Standard BP Diastolic 92 mm[Hg] Comments: Patient Position: Sitting; Cuff Location: Left Arm; Cuff Size: Standard Weight 137 lb Height 65 in Body Mass Index Calculated 22.8 kg/m2 Body Surface Area Calculated 1.68 m2 :05 Pulse 106 /min Comments: Pattern: Regular Respiration Rate 18 /min Comments: Pattern: Unlabored O2 SAT 96 % Comments: Room air BP Systolic 128 mm[Hg] Comments: Patient Position: Sitting; Cuff Location: Left Arm; Cuff Size: Standard BP Diastolic 72 mm[Hg] Comments: Patient Position: Sitting; Cuff Location: Left Arm; Cuff Size: Standard Weight 137 lb Height 65 in Body Mass Index Calculated 22.8 kg/m2 Body Surface Area Calculated 1.68 m2 :09 Pulse 83 /min Comments: Pattern: Regular Respiration Rate 18 /min Comments: Pattern: Unlabored O2 SAT 93 % Comments: Room air BP Systolic 128 mm[Hg] Comments: Patient Position: Sitting; Cuff Location: Left Arm; Cuff Size: Large BP Diastolic 80 mm[Hg] Comments: Patient Position: Sitting; Cuff Location: Left Arm; Cuff Size: Large Weight 138.125 lb Height 65 in Body Mass Index Calculated 22.98 kg/m2 Body Surface Area Calculated 1.69 m2 :14 Temperature 97.4 f Comments: Method: Temporal Pulse 92 /min Comments: Pattern: Regular Respiration Rate 17 /min Comments: Pattern: Unlabored O2 SAT 98 % Comments: Room air BP Systolic 126 mm[Hg] Comments: Patient Position: Sitting; Cuff Location: Left Arm; Cuff Size: Large BP Diastolic 84 mm[Hg] Comments: Patient Position: Sitting; Cuff Location: Left Arm; Cuff Size: Large Weight 142.0625 lb Height 65 in Body Mass Index Calculated 23.64 kg/m2 Body Surface Area Calculated 1.71 m2 :02 Pulse 103 /min Comments: Pattern: Regular Respiration Rate 18 /min Comments: Pattern: Unlabored O2 SAT 93 % Comments: Room air BP Systolic 122 mm[Hg] Comments: Patient Position: Sitting; Cuff Location: Left Arm; Cuff Size: Large BP Diastolic 78 mm[Hg] Comments: Patient Position: Sitting; Cuff Location: Left Arm; Cuff Size: Large Weight 142.0625 lb Height 65 in Body Mass Index Calculated 23.64 kg/m2 Body Surface Area Calculated 1.71 m2 :52 Temperature 97.6 f Pulse 72 /min Comments: Pattern: Regular Respiration Rate 15 /min Comments: Pattern: Unlabored BP Systolic 108 mm[Hg] Comments: Patient Position: Sitting; Cuff Location: Left Arm; Cuff Size: Standard BP Diastolic 72 mm[Hg] Comments: Patient Position: Sitting; Cuff Location: Left Arm; Cuff Size: Standard Weight 142 lb Height 65 in Body Mass Index Calculated 23.63 kg/m2 Body Surface Area Calculated 1.71 m2 :49 Temperature 98.5 f Pulse 100 /min Comments: Pattern: Regular Respiration Rate 17 /min Comments: Pattern: Unlabored O2 SAT 97 % Comments: Room air BP Systolic 96 mm[Hg] Comments: Patient Position: Sitting; Cuff Location: Left Arm; Cuff Size: Standard BP Diastolic 62 mm[Hg] Comments: Patient Position: Sitting; Cuff Location: Left Arm; Cuff Size: Standard Weight 142 lb Height 65 in Body Mass Index Calculated 23.63 kg/m2 Body Surface Area Calculated 1.71 m2 :53 Pulse 91 /min Comments: Pattern: Regular Respiration Rate 18 /min Comments: Pattern: Unlabored O2 SAT 91 % Comments: Room air BP Systolic 128 mm[Hg] Comments: Patient Position: Sitting; Cuff Location: Left Arm; Cuff Size: Standard BP Diastolic 80 mm[Hg] Comments: Patient Position: Sitting; Cuff Location: Left Arm; Cuff Size: Standard Weight 142 lb Height 65 in Body Mass Index Calculated 23.63 kg/m2 Body Surface Area Calculated 1.71 m2 :30 Pulse 66 /min Comments: Pattern: Regular Respiration Rate 18 /min Comments: Pattern: Unlabored O2 SAT 93 % Comments: Room air BP Systolic 124 mm[Hg] Comments: Patient Position: Sitting; Cuff Location: Left Arm; Cuff Size: Large BP Diastolic 82 mm[Hg] Comments: Patient Position: Sitting; Cuff Location: Left Arm; Cuff Size: Large Weight 142 lb Height 65 in Body Mass Index Calculated 23.63 kg/m2 Body Surface Area Calculated 1.71 m2 :03 Pulse 105 /min Comments: Pattern: Regular Respiration Rate 18 /min Comments: Pattern: Unlabored O2 SAT 96 % Comments: Room air BP Systolic 142 mm[Hg] Comments: Patient Position: Sitting; Cuff Location: Left Arm; Cuff Size: Large BP Diastolic 78 mm[Hg] Comments: Patient Position: Sitting; Cuff Location: Left Arm; Cuff Size: Large Weight 142 lb Height 65 in Body Mass Index Calculated 23.63 kg/m2 Body Surface Area Calculated 1.71 m2 :44 Comments: [facility] [place] [facility] test done Pulse 77 /min Comments: Pattern: Regular Respiration Rate 18 /min Comments: Pattern: Unlabored O2 SAT 94 % Comments: Room air BP Systolic 120 mm[Hg] Comments: Patient Position: Sitting; Cuff Location: Left Arm; Cuff Size: Large BP Diastolic 80 mm[Hg] Comments: Patient Position: Sitting; Cuff Location: Left Arm; Cuff Size: Large Weight 142 lb Height 65 in Body Mass Index Calculated 23.63 kg/m2 Body Surface Area Calculated 1.71 m2 :05 Comments: 118/70 2nd bp Pulse 60 /min Comments: Pattern: Regular Respiration Rate 18 /min Comments: Pattern: Unlabored O2 SAT 96 % Comments: Room air BP Systolic 142 mm[Hg] Comments: Patient Position: Sitting; Cuff Location: Left Arm; Cuff Size: Standard BP Diastolic 70 mm[Hg] Comments: Patient Position: Sitting; Cuff Location: Left Arm; Cuff Size: Standard Weight 142 lb Height 65 in Body Mass Index Calculated 23.63 kg/m2 Body Surface Area Calculated 1.71 m2 :29 Pulse 113 /min Comments: Pattern: Regular Respiration Rate 18 /min Comments: Pattern: Unlabored O2 SAT 94 % Comments: Room air BP Systolic 122 mm[Hg] Comments: Patient Position: Sitting; Cuff Location: Left Arm; Cuff Size: Standard BP Diastolic 62 mm[Hg] Comments: Patient Position: Sitting; Cuff Location: Left Arm; Cuff Size: Standard Weight 147 lb Height 65 in Body Mass Index Calculated 24.46 kg/m2 Body Surface Area Calculated 1.74 m2 :28 Pulse 94 /min Comments: Pattern: Regular Respiration Rate 20 /min Comments: Pattern: Unlabored O2 SAT 95 % Comments: Room air BP Systolic 122 mm[Hg] Comments: Patient Position: Sitting; Cuff Location: Left Arm; Cuff Size: Large BP Diastolic 82 mm[Hg] Comments: Patient Position: Sitting; Cuff Location: Left Arm; Cuff Size: Large Weight 147 lb Height 65 in Body Mass Index Calculated 24.46 kg/m2 Body Surface Area Calculated 1.74 m2 :44 Pulse 79 /min Comments: Pattern: Regular Respiration Rate 20 /min Comments: Pattern: Unlabored O2 SAT 97 % Comments: Room air BP Systolic 122 mm[Hg] Comments: Patient Position: Sitting; Cuff Location: Left Arm; Cuff Size: Standard BP Diastolic 78 mm[Hg] Comments: Patient Position: Sitting; Cuff Location: Left Arm; Cuff Size: Standard Weight 149.125 lb Height 65 in Body Mass Index Calculated 24.82 kg/m2 Body Surface Area Calculated 1.75 m2 :20 Pulse 72 /min Comments: Pattern: Regular Respiration Rate 18 /min Comments: Pattern: Unlabored O2 SAT 96 % Comments: Room air BP Systolic 120 mm[Hg] Comments: Patient Position: Sitting; Cuff Location: Left Arm; Cuff Size: Standard BP Diastolic 78 mm[Hg] Comments: Patient Position: Sitting; Cuff Location: Left Arm; Cuff Size: Standard Weight 148.125 lb Height 65 in Body Mass Index Calculated 24.65 kg/m2 Body Surface Area Calculated 1.74 m2 :04 Temperature 98.2 f Comments: Method: Oral Pulse 86 /min Comments: Pattern: Regular Respiration Rate 16 /min Comments: Pattern: Unlabored O2 SAT 98 % Comments: Room air BP Systolic 132 mm[Hg] Comments: Patient Position: Sitting; Cuff Location: Left Arm; Cuff Size: Standard BP Diastolic 72 mm[Hg] Comments: Patient Position: Sitting; Cuff Location: Left Arm; Cuff Size: Standard Weight 141.125 lb Height 65 in Body Mass Index Calculated 23.48 kg/m2 Body Surface Area Calculated 1.71 m2 :08 Pulse 78 /min Comments: Pattern: Regular Respiration Rate 18 /min Comments: Pattern: Unlabored O2 SAT 96 % Comments: Room air BP Systolic 142 mm[Hg] Comments: Patient Position: Sitting; Cuff Location: Left Arm; Cuff Size: Standard BP Diastolic 80 mm[Hg] Comments: Patient Position: Sitting; Cuff Location: Left Arm; Cuff Size: Standard Weight 137.125 lb Height 65 in Body Mass Index Calculated 22.82 kg/m2 Body Surface Area Calculated 1.69 m2 :01 Temperature 97.5 f Comments: Method: Tympanic Pulse 80 /min Comments: Pattern: Regular Respiration Rate 18 /min Comments: Pattern: Unlabored O2 SAT 95 % Comments: Room air BP Systolic 100 mm[Hg] Comments: Patient Position: Sitting; Cuff Location: Left Arm; Cuff Size: Standard BP Diastolic 62 mm[Hg] Comments: Patient Position: Sitting; Cuff Location: Left Arm; Cuff Size: Standard Weight 137.125 lb Height 65 in Body Mass Index Calculated 22.82 kg/m2 Body Surface Area Calculated 1.69 m2 :31 Pulse 86 /min Comments: Pattern: Regular Respiration Rate 18 /min Comments: Pattern: Unlabored O2 SAT 98 % Comments: Room air BP Systolic 142 mm[Hg] Comments: Patient Position: Sitting; Cuff Location: Left Arm; Cuff Size: Standard BP Diastolic 98 mm[Hg] Comments: Patient Position: Sitting; Cuff Location: Left Arm; Cuff Size: Standard Weight 137.125 lb Height 65 in Body Mass Index Calculated 22.82 kg/m2 Body Surface Area Calculated 1.69 m2 :40 Pulse 68 /min Comments: Pattern: Regular Respiration Rate 18 /min Comments: Pattern: Unlabored O2 SAT 98 % Comments: Room air BP Systolic 122 mm[Hg] Comments: Patient Position: Sitting; Cuff Location: Left Arm; Cuff Size: Standard BP Diastolic 78 mm[Hg] Comments: Patient Position: Sitting; Cuff Location: Left Arm; Cuff Size: Standard Weight 136.4375 lb Height 65 in Body Mass Index Calculated 22.7 kg/m2 Body Surface Area Calculated 1.68 m2 :41 Pulse 60 /min Comments: Pattern: Regular Respiration Rate 20 /min Comments: Pattern: Unlabored BP Systolic 144 mm[Hg] Comments: Patient Position: Sitting; Cuff Location: Left Arm; Cuff Size: Standard BP Diastolic 88 mm[Hg] Comments: Patient Position: Sitting; Cuff Location: Left Arm; Cuff Size: Standard Weight 137 lb Height 65 in Body Mass Index Calculated 22.8 kg/m2 Body Surface Area Calculated 1.68 m2 :29 Temperature 98.2 f Comments: Method: Oral Pulse 85 /min Comments: Pattern: Regular Respiration Rate 20 /min Comments: Pattern: Unlabored O2 SAT 95 % Comments: Room air BP Systolic 122 mm[Hg] Comments: Patient Position: Sitting; Cuff Location: Left Arm; Cuff Size: Standard BP Diastolic 80 mm[Hg] Comments: Patient Position: Sitting; Cuff Location: Left Arm; Cuff Size: Standard Weight 136.25 lb Height 65 in Body Mass Index Calculated 22.67 kg/m2 Body Surface Area Calculated 1.68 m2 :19 Pulse 60 /min Comments: Pattern: Regular Respiration Rate 18 /min Comments: Pattern: Unlabored BP Systolic 122 mm[Hg] Comments: Patient Position: Sitting; Cuff Location: Left Arm; Cuff Size: Large BP Diastolic 78 mm[Hg] Comments: Patient Position: Sitting; Cuff Location: Left Arm; Cuff Size: Large Weight 130.4375 lb Height 65 in Body Mass Index Calculated 21.71 kg/m2 Body Surface Area Calculated 1.65 m2 :54 Temperature 98.3 f Comments: Method: Oral Pulse 88 /min Comments: Pattern: Regular Respiration Rate 17 /min O2 SAT 95 % Comments: Room air BP Systolic 110 mm[Hg] Comments: Patient Position: Sitting; Cuff Location: Left Arm; Cuff Size: Standard BP Diastolic 64 mm[Hg] Comments: Patient Position: Sitting; Cuff Location: Left Arm; Cuff Size: Standard Weight 139.3125 lb Height 65 in Body Mass Index Calculated 23.18 kg/m2 Body Surface Area Calculated 1.7 m2 :31 Pulse 88 /min Comments: Pattern: Regular Respiration Rate 16 /min Comments: Pattern: Unlabored O2 SAT 98 % Comments: Room air BP Systolic 108 mm[Hg] Comments: Patient Position: Sitting; Cuff Location: Left Arm; Cuff Size: Standard BP Diastolic 72 mm[Hg] Comments: Patient Position: Sitting; Cuff Location: Left Arm; Cuff Size: Standard Weight 139.3125 lb Height 65 in Body Mass Index Calculated 23.18 kg/m2 Body Surface Area Calculated 1.7 m2 :22 Pulse 60 /min Comments: Pattern: Regular Respiration Rate 20 /min Comments: Pattern: Unlabored BP Systolic 110 mm[Hg] Comments: Patient Position: Sitting; Cuff Location: Left Arm; Cuff Size: Large BP Diastolic 60 mm[Hg] Comments: Patient Position: Sitting; Cuff Location: Left Arm; Cuff Size: Large Weight 139.3125 lb Height 65 in Body Mass Index Calculated 23.18 kg/m2 Body Surface Area Calculated 1.7 m2 :56 Pulse 60 /min Comments: Pattern: Regular Respiration Rate 18 /min Comments: Pattern: Unlabored BP Systolic 120 mm[Hg] Comments: Patient Position: Sitting; Cuff Location: Left Arm; Cuff Size: Large BP Diastolic 78 mm[Hg] Comments: Patient Position: Sitting; Cuff Location: Left Arm; Cuff Size: Large Weight 140.375 lb Height 65 in Body Mass Index Calculated 23.36 kg/m2 Body Surface Area Calculated 1.7 m2 :41 Temperature 98 f Comments: Method: Temporal Pulse 86 /min Comments: Pattern: Regular Respiration Rate 16 /min Comments: Pattern: Unlabored O2 SAT 99 % Comments: Room air BP Systolic 110 mm[Hg] Comments: Patient Position: Sitting; Cuff Location: Left Arm; Cuff Size: Standard BP Diastolic 72 mm[Hg] Comments: Patient Position: Sitting; Cuff Location: Left Arm; Cuff Size: Standard Weight 157 lb Height 65 in Body Mass Index Calculated 26.13 kg/m2 Body Surface Area Calculated 1.78 m2 :50 Temperature 99.7 f Comments: Method: Oral Pulse 78 /min Comments: Pattern: Regular Respiration Rate 18 /min Comments: Pattern: Unlabored BP Systolic 116 mm[Hg] Comments: Patient Position: Sitting; Cuff Location: Left Arm; Cuff Size: Standard BP Diastolic 78 mm[Hg] Comments: Patient Position: Sitting; Cuff Location: Left Arm; Cuff Size: Standard Weight 157 lb Height 65 in Body Mass Index Calculated 26.13 kg/m2 Body Surface Area Calculated 1.78 m2 :17 Temperature 99.1 f Comments: Method: Oral Pulse 60 /min Comments: Pattern: Regular Respiration Rate 20 /min Comments: Pattern: Unlabored BP Systolic 118 mm[Hg] Comments: Patient Position: Sitting; Cuff Location: Left Arm; Cuff Size: Standard BP Diastolic 78 mm[Hg] Comments: Patient Position: Sitting; Cuff Location: Left Arm; Cuff Size: Standard Weight 157 lb Height 65 in Body Mass Index Calculated 26.13 kg/m2 Body Surface Area Calculated 1.78 m2 :34 Temperature 98.4 f Comments: Method: Oral Pulse 72 /min Comments: Pattern: Regular Respiration Rate 17 /min BP Systolic 136 mm[Hg] Comments: Patient Position: Sitting; Cuff Location: Left Arm; Cuff Size: Standard BP Diastolic 78 mm[Hg] Comments: Patient Position: Sitting; Cuff Location: Left Arm; Cuff Size: Standard Weight 157 lb Height 65 in Body Mass Index Calculated 26.13 kg/m2 Body Surface Area Calculated 1.78 m2 :17 Temperature 97.8 f Comments: Method: Oral Pulse 68 /min Comments: Pattern: Regular Respiration Rate 18 /min Comments: Pattern: Unlabored BP Systolic 142 mm[Hg] Comments: Patient Position: Sitting; Cuff Location: Left Arm; Cuff Size: Standard BP Diastolic 82 mm[Hg] Comments: Patient Position: Sitting; Cuff Location: Left Arm; Cuff Size: Standard Weight 157 lb Height 65 in Body Mass Index Calculated 26.13 kg/m2 Body Surface Area Calculated 1.78 m2 :45 Temperature 99.2 f Comments: Method: Oral Pulse 70 /min Comments: Pattern: Regular Respiration Rate 18 /min BP Systolic 134 mm[Hg] Comments: Patient Position: Sitting; Cuff Location: Left Arm; Cuff Size: Standard BP Diastolic 90 mm[Hg] Comments: Patient Position: Sitting; Cuff Location: Left Arm; Cuff Size: Standard Weight 157 lb Height 65 in Body Mass Index Calculated 26.13 kg/m2 Body Surface Area Calculated 1.78 m2 :20 Temperature 97.3 f Comments: Method: Oral Pulse 60 /min Comments: Pattern: Regular Respiration Rate 20 /min Comments: Pattern: Unlabored BP Systolic 142 mm[Hg] Comments: Patient Position: Sitting; Cuff Location: Left Arm; Cuff Size: Large BP Diastolic 78 mm[Hg] Comments: Patient Position: Sitting; Cuff Location: Left Arm; Cuff Size: Large Weight 171.0625 lb Height 65 in Body Mass Index Calculated 28.47 kg/m2 Body Surface Area Calculated 1.85 m2 :38 Temperature 99.6 f Comments: Method: Oral Pulse 68 /min Comments: Pattern: Regular Respiration Rate 20 /min Comments: Pattern: Unlabored BP Systolic 144 mm[Hg] Comments: Patient Position: Sitting; Cuff Location: Left Arm; Cuff Size: Large BP Diastolic 78 mm[Hg] Comments: Patient Position: Sitting; Cuff Location: Left Arm; Cuff Size: Large Weight 166.125 lb Height 65 in Body Mass Index Calculated 27.64 kg/m2 Body Surface Area Calculated 1.83 m2 :26 Temperature 97.9 f Comments: Method: Oral Pulse 68 /min Comments: Pattern: Regular Respiration Rate 20 /min Comments: Pattern: Unlabored BP Systolic 118 mm[Hg] Comments: Patient Position: Sitting; Cuff Location: Left Arm; Cuff Size: Large BP Diastolic 80 mm[Hg] Comments: Patient Position: Sitting; Cuff Location: Left Arm; Cuff Size: Large Weight 170.5625 lb Height 65 in Body Mass Index Calculated 28.38 kg/m2 Body Surface Area Calculated 1.85 m2 :09 Temperature 98.6 f Comments: Method: Oral Pulse 72 /min Comments: Pattern: Regular Respiration Rate 16 /min BP Systolic 132 mm[Hg] Comments: Patient Position: Sitting; Cuff Location: Left Arm; Cuff Size: Standard BP Diastolic 74 mm[Hg] Comments: Patient Position: Sitting; Cuff Location: Left Arm; Cuff Size: Standard Weight 167.5 lb Height 65 in Body Mass Index Calculated 27.87 kg/m2 Body Surface Area Calculated 1.83 m2 :04 Temperature 97.6 f Comments: Method: Oral Pulse 70 /min Comments: Pattern: Regular Respiration Rate 18 /min Comments: Pattern: Unlabored BP Systolic 126 mm[Hg] Comments: Patient Position: Sitting; Cuff Location: Left Arm; Cuff Size: Standard BP Diastolic 76 mm[Hg] Comments: Patient Position: Sitting; Cuff Location: Left Arm; Cuff Size: Standard Weight 176 lb Height 65 in Body Mass Index Calculated 29.29 kg/m2 Body Surface Area Calculated 1.87 m2 :38 Temperature 98 f Comments: Method: Oral Pulse 74 /min Comments: Pattern: Regular Respiration Rate 16 /min O2 SAT 98 % Comments: Room air BP Systolic 138 mm[Hg] Comments: Patient Position: Sitting; Cuff Location: Left Arm; Cuff Size: Standard BP Diastolic 80 mm[Hg] Comments: Patient Position: Sitting; Cuff Location: Left Arm; Cuff Size: Standard Weight 176.5 lb Height 65 in Body Mass Index Calculated 29.37 kg/m2 Body Surface Area Calculated 1.88 m2 :52 Temperature 97.8 f Comments: Method: Oral Pulse 66 /min Comments: Pattern: Regular Respiration Rate 16 /min BP Systolic 124 mm[Hg] Comments: Patient Position: Sitting; Cuff Location: Left Arm; Cuff Size: Standard BP Diastolic 72 mm[Hg] Comments: Patient Position: Sitting; Cuff Location: Left Arm; Cuff Size: Standard Weight 176.5 lb Height 65 in Body Mass Index Calculated 29.37 kg/m2 Body Surface Area Calculated 1.88 m2 :14 Pulse 60 /min Comments: Pattern: Regular Respiration Rate 18 /min Comments: Pattern: Unlabored BP Systolic 128 mm[Hg] Comments: Patient Position: Sitting; Cuff Location: Left Arm; Cuff Size: Large BP Diastolic 78 mm[Hg] Comments: Patient Position: Sitting; Cuff Location: Left Arm; Cuff Size: Large Weight 176.5 lb Height 65 in Body Mass Index Calculated 29.37 kg/m2 Body Surface Area Calculated 1.88 m2 :19 Temperature 97.2 f Comments: Method: Oral Pulse 62 /min Comments: Pattern: Regular Respiration Rate 16 /min Comments: Pattern: Unlabored BP Systolic 122 mm[Hg] Comments: Patient Position: Sitting; Cuff Location: Left Arm; Cuff Size: Standard BP Diastolic 80 mm[Hg] Comments: Patient Position: Sitting; Cuff Location: Left Arm; Cuff Size: Standard Weight 176.5 lb Height 65 in Body Mass Index Calculated 29.37 kg/m2 Body Surface Area Calculated 1.88 m2 :33 Pulse 64 /min Comments: Pattern: Regular Respiration Rate 18 /min Comments: Pattern: Unlabored BP Systolic 140 mm[Hg] Comments: Patient Position: Sitting; Cuff Location: Left Arm; Cuff Size: Large BP Diastolic 82 mm[Hg] Comments: Patient Position: Sitting; Cuff Location: Left Arm; Cuff Size: Large Weight 182.5 lb Height 65 in Body Mass Index Calculated 30.37 kg/m2 Body Surface Area Calculated 1.9 m2 :49 Pulse 68 /min Comments: Pattern: Regular Respiration Rate 20 /min Comments: Pattern: Unlabored BP Systolic 128 mm[Hg] Comments: Patient Position: Sitting; Cuff Location: Left Arm; Cuff Size: Large BP Diastolic 82 mm[Hg] Comments: Patient Position: Sitting; Cuff Location: Left Arm; Cuff Size: Large Weight 182.5 lb Height 65 in Body Mass Index Calculated 30.37 kg/m2 Body Surface Area Calculated 1.9 m2 :55 Pulse 64 /min Comments: Pattern: Regular Respiration Rate 20 /min Comments: Pattern: Unlabored BP Systolic 122 mm[Hg] Comments: Patient Position: Sitting; Cuff Location: Left Arm; Cuff Size: Large BP Diastolic 76 mm[Hg] Comments: Patient Position: Sitting; Cuff Location: Left Arm; Cuff Size: Large Weight 182.5 lb Height 65 in Body Mass Index Calculated 30.37 kg/m2 Body Surface Area Calculated 1.9 m2 :12 Pulse 68 /min Comments: Pattern: Regular Respiration Rate 20 /min Comments: Pattern: Unlabored BP Systolic 124 mm[Hg] Comments: Patient Position: Sitting; Cuff Location: Left Arm; Cuff Size: Large BP Diastolic 80 mm[Hg] Comments: Patient Position: Sitting; Cuff Location: Left Arm; Cuff Size: Large Weight 182.5 lb Height 65 in Body Mass Index Calculated 30.37 kg/m2 Body Surface Area Calculated 1.9 m2 :25 Temperature 95.9 f Comments: Method: Oral Pulse 64 /min Comments: Pattern: Regular Respiration Rate 20 /min Comments: Pattern: Unlabored BP Systolic 128 mm[Hg] Comments: Patient Position: Sitting; Cuff Location: Left Arm; Cuff Size: Large BP Diastolic 80 mm[Hg] Comments: Patient Position: Sitting; Cuff Location: Left Arm; Cuff Size: Large Weight 177 lb Height 65 in Body Mass Index Calculated 29.45 kg/m2 Body Surface Area Calculated 1.88 m2 Head Circumference 0.00 cm :19 Pulse 64 /min Comments: Pattern: Regular Respiration Rate 20 /min Comments: Pattern: Unlabored BP Systolic 138 mm[Hg] Comments: Patient Position: Sitting; Cuff Location: Left Arm; Cuff Size: Large BP Diastolic 88 mm[Hg] Comments: Patient Position: Sitting; Cuff Location: Left Arm; Cuff Size: Large Weight 177.3125 lb Height 65 in Body Mass Index Calculated 29.51 kg/m2 Body Surface Area Calculated 1.88 m2 Head Circumference 0.00 cm :09 Pulse 68 /min Comments: Pattern: Regular Respiration Rate 16 /min Comments: Pattern: Unlabored BP Systolic 132 mm[Hg] Comments: Patient Position: Sitting; Cuff Location: Left Arm; Cuff Size: Standard BP Diastolic 80 mm[Hg] Comments: Patient Position: Sitting; Cuff Location: Left Arm; Cuff Size: Standard Weight 175 lb Height 65 in Body Mass Index Calculated 29.12 kg/m2 Body Surface Area Calculated 1.87 m2 Head Circumference 0.00 cm :18 Pulse 66 /min Comments: Pattern: Regular Respiration Rate 18 /min Comments: Pattern: Unlabored BP Systolic 142 mm[Hg] Comments: Patient Position: Sitting; Cuff Location: Left Arm; Cuff Size: Standard BP Diastolic 82 mm[Hg] Comments: Patient Position: Sitting; Cuff Location: Left Arm; Cuff Size: Standard Weight 175 lb Height 65 in Body Mass Index Calculated 29.12 kg/m2 Body Surface Area Calculated 1.87 m2 Head Circumference 0.00 cm :21 Pulse 76 /min Comments: Pattern: Regular Respiration Rate 18 /min Comments: Pattern: Unlabored BP Systolic 128 mm[Hg] Comments: Patient Position: Sitting; Cuff Location: Left Arm; Cuff Size: Large BP Diastolic 68 mm[Hg] Comments: Patient Position: Sitting; Cuff Location: Left Arm; Cuff Size: Large Weight 175 lb Height 65 in Body Mass Index Calculated 29.12 kg/m2 Body Surface Area Calculated 1.87 m2 Head Circumference 0.00 cm :29 Pulse 88 /min Comments: Pattern: Regular Respiration Rate 20 /min Comments: Pattern: Unlabored BP Systolic 162 mm[Hg] Comments: Patient Position: Sitting; Cuff Location: Left Arm; Cuff Size: Standard BP Diastolic 90 mm[Hg] Comments: Patient Position: Sitting; Cuff Location: Left Arm; Cuff Size: Standard Weight 175 lb Height 65 in Body Mass Index Calculated 29.12 kg/m2 Body Surface Area Calculated 1.87 m2 Head Circumference 0.00 cm :55 Pulse 60 /min Comments: Pattern: Regular Respiration Rate 18 /min Comments: Pattern: Unlabored BP Systolic 124 mm[Hg] Comments: Patient Position: Sitting; Cuff Location: Left Arm; Cuff Size: Large BP Diastolic 78 mm[Hg] Comments: Patient Position: Sitting; Cuff Location: Left Arm; Cuff Size: Large Weight 175 lb Height 65 in Body Mass Index Calculated 29.12 kg/m2 Body Surface Area Calculated 1.87 m2 Head Circumference 0.00 cm :56 Temperature 97.8 f Comments: Method: Oral Pulse 92 /min Comments: Pattern: Regular Respiration Rate 16 /min Comments: Pattern: Unlabored BP Systolic 136 mm[Hg] Comments: Patient Position: Sitting; Cuff Location: Left Arm; Cuff Size: Standard BP Diastolic 78 mm[Hg] Comments: Patient Position: Sitting; Cuff Location: Left Arm; Cuff Size: Standard Weight 0 lb Height 0 in Head Circumference 0.00 cm :51 Pulse 72 /min Comments: Pattern: Regular Respiration Rate 18 /min Comments: Pattern: Unlabored BP Systolic 144 mm[Hg] Comments: Patient Position: Sitting; Cuff Location: Left Arm; Cuff Size: Large BP Diastolic 90 mm[Hg] Comments: Patient Position: Sitting; Cuff Location: Left Arm; Cuff Size: Large Weight 175 lb Height 0 in Head Circumference 0.00 cm :18 Pulse 84 /min Comments: Pattern: Regular Respiration Rate 18 /min Comments: Pattern: Undefined BP Systolic 122 mm[Hg] Comments: Patient Position: Sitting; Cuff Location: Left Arm; Cuff Size: Large BP Diastolic 80 mm[Hg] Comments: Patient Position: Sitting; Cuff Location: Left Arm; Cuff Size: Large Weight 0 lb Height 0 in Head Circumference 0.00 cm :56 Pulse 74 /min Comments: Pattern: Regular Respiration Rate 16 /min Comments: Pattern: Unlabored BP Systolic 118 mm[Hg] Comments: Patient Position: Sitting; Cuff Location: Left Arm; Cuff Size: Standard BP Diastolic 76 mm[Hg] Comments: Patient Position: Sitting; Cuff Location: Left Arm; Cuff Size: Standard Weight 0 lb Height 0 in Head Circumference 0.00 cm :25 Pulse 80 /min Comments: Pattern: Regular Respiration Rate 20 /min Comments: Pattern: Unlabored BP Systolic 128 mm[Hg] Comments: Patient Position: Sitting; Cuff Location: Left Arm; Cuff Size: Large BP Diastolic 86 mm[Hg] Comments: Patient Position: Sitting; Cuff Location: Left Arm; Cuff Size: Large Weight 172.0625 lb Height 65 in Body Mass Index Calculated 28.63 kg/m2 Body Surface Area Calculated 1.86 m2 Head Circumference 0.00 cm :12 Pulse 66 /min Comments: Pattern: Regular Respiration Rate 16 /min Comments: Pattern: Unlabored Weight 177.3125 lb Height 65 in Body Mass Index Calculated 29.51 kg/m2 Body Surface Area Calculated 1.88 m2 Head Circumference 0.00 cm :14 Temperature 97.4 f Comments: Method: Oral Pulse 84 /min Comments: Pattern: Regular Respiration Rate 16 /min Comments: Pattern: Unlabored BP Systolic 120 mm[Hg] Comments: Patient Position: Sitting; Cuff Location: Left Arm; Cuff Size: Standard BP Diastolic 80 mm[Hg] Comments: Patient Position: Sitting; Cuff Location: Left Arm; Cuff Size: Standard Weight 0 lb Height 0 in Head Circumference 0.00 cm :50 Temperature 97.6 f Comments: Method: Oral Pulse 76 /min Comments: Pattern: Regular Respiration Rate 16 /min Comments: Pattern: Unlabored BP Systolic 140 mm[Hg] Comments: Patient Position: Sitting; Cuff Location: Left Arm; Cuff Size: Standard BP Diastolic 84 mm[Hg] Comments: Patient Position: Sitting; Cuff Location: Left Arm; Cuff Size: Standard Weight 0 lb Height 0 in Head Circumference 0.00 cm :22 Temperature 97.7 f Comments: Method: Oral Pulse 80 /min Comments: Pattern: Regular Respiration Rate 18 /min Comments: Pattern: Unlabored BP Systolic 114 mm[Hg] Comments: Patient Position: Sitting; Cuff Location: Left Arm; Cuff Size: Standard BP Diastolic 76 mm[Hg] Comments: Patient Position: Sitting; Cuff Location: Left Arm; Cuff Size: Standard Weight 177.3125 lb Height 65 in Body Mass Index Calculated 29.51 kg/m2 Body Surface Area Calculated 1.88 m2 Head Circumference 0.00 cm :19 Pulse 72 /min Comments: Pattern: Regular Respiration Rate 20 /min Comments: Pattern: Unlabored BP Systolic 132 mm[Hg] Comments: Patient Position: Sitting; Cuff Location: Right Arm; Cuff Size: Standard BP Diastolic 80 mm[Hg] Comments: Patient Position: Sitting; Cuff Location: Right Arm; Cuff Size: Standard Weight 177.3125 lb Height 65 in Body Mass Index Calculated 29.51 kg/m2 Body Surface Area Calculated 1.88 m2 Head Circumference 0.00 cm :28 Temperature 97.5 f Comments: Method: Oral Pulse 60 /min Comments: Pattern: Regular Respiration Rate 18 /min Comments: Pattern: Unlabored BP Systolic 136 mm[Hg] Comments: Patient Position: Sitting; Cuff Location: Left Arm; Cuff Size: Standard BP Diastolic 74 mm[Hg] Comments: Patient Position: Sitting; Cuff Location: Left Arm; Cuff Size: Standard Weight 171.125 lb Height 65 in Body Mass Index Calculated 28.48 kg/m2 Body Surface Area Calculated 1.85 m2 Head Circumference 0.00 cm :04 Pulse 80 /min Comments: Pattern: Regular Respiration Rate 20 /min Comments: Pattern: Unlabored BP Systolic 128 mm[Hg] Comments: Patient Position: Sitting; Cuff Location: Left Arm; Cuff Size: Standard BP Diastolic 86 mm[Hg] Comments: Patient Position: Sitting; Cuff Location: Left Arm; Cuff Size: Standard Weight 171.125 lb Height 65 in Body Mass Index Calculated 28.48 kg/m2 Body Surface Area Calculated 1.85 m2 Head Circumference 0.00 cm :52 Temperature 98 f Comments: Method: Oral Pulse 76 /min Comments: Pattern: Regular Respiration Rate 18 /min Comments: Pattern: Unlabored BP Systolic 126 mm[Hg] Comments: Patient Position: Sitting; Cuff Location: Left Arm; Cuff Size: Standard BP Diastolic 74 mm[Hg] Comments: Patient Position: Sitting; Cuff Location: Left Arm; Cuff Size: Standard Weight 171.125 lb Height 65 in Body Mass Index Calculated 28.48 kg/m2 Body Surface Area Calculated 1.85 m2 Head Circumference 0.00 cm :38 Temperature 97.9 f Comments: Method: Oral Pulse 71 /min Comments: Pattern: Regular Respiration Rate 16 /min Comments: Pattern: Unlabored BP Systolic 118 mm[Hg] Comments: Patient Position: Sitting; Cuff Location: Left Arm; Cuff Size: Standard BP Diastolic 78 mm[Hg] Comments: Patient Position: Sitting; Cuff Location: Left Arm; Cuff Size: Standard Weight 171.125 lb Height 65 in Body Mass Index Calculated 28.48 kg/m2 Body Surface Area Calculated 1.85 m2 Head Circumference 0.00 cm :45 Temperature 98.2 f Comments: Method: Oral Pulse 72 /min Comments: Pattern: Regular Respiration Rate 16 /min Comments: Pattern: Unlabored BP Systolic 128 mm[Hg] Comments: Patient Position: Sitting; Cuff Location: Left Arm; Cuff Size: Standard BP Diastolic 80 mm[Hg] Comments: Patient Position: Sitting; Cuff Location: Left Arm; Cuff Size: Standard Weight 171.125 lb Height 65 in Body Mass Index Calculated 28.48 kg/m2 Body Surface Area Calculated 1.85 m2 Head Circumference 0.00 cm :26 Temperature 98 f Comments: Method: Oral Pulse 80 /min Comments: Pattern: Regular Respiration Rate 16 /min Comments: Pattern: Undefined Weight 0 lb Height 0 in Head Circumference 0.00 cm Results Date Description Value Details :24 THROAT CULTURE (57036) Comments: PATIENT NOT FASTINGPERFORMED BY: [facility] Zhwwmn4524 [facility] [id number] Information: THROAT SRC:TH Result 1 RRF (Normal) Comments: Routine respiratory raegan Upper Respiratory Culture Final report (Normal) 86-Gxs-762472:12 Rapid Strep Test, Office (99022) Rapid Strep Test, Office Negative (Normal) 05-Amc-529561:03 CBC W/Diff, Automated Comments: [facility] [address] [place], [place], [id number] Absolute Lymph 1.28 {X10_3/ul} (Normal) Range: 0.83-4.51 Absolute Neut 5.4 {X10_3/uL} (Normal) Range: 2.0-7.7 IM GRAN % 0.300 % (Normal) Range: 0.0-0.9 Comments: IG% - Immature Granulocytes (promyelocytes, myelocytes andmetamyelocytes) > 1% indicates that a LEFT SHIFT is Present. BASO% 0.4 % (Normal) Range: 0-1 EO% 3.7 % (Normal) Range: 0-5 MONO% 5.7 % (Normal) Range: 0-10 LY% 17.4 % (Abnormal) Range: 19-41 NEUT% 72.5 % (Abnormal) Range: 47-70 MPV 9.3 fL (Normal) Range: 6.2-12.0 PLT 224 K/mm3 (Normal) Range: 150-450 RDW SD 45.7 fL (Abnormal) Range: 35.1-43.9 RDW CV 14.0 % (Normal) Range: 11.6-14.6 MCHC 32.3 {g/gl} (Normal) Range: 32-36 MCH 28.5 pg (Normal) Range: 27.0-32.0 MCV 88.3 fL (Normal) Range: 81-99 HCT 31.6 % (Abnormal) Range: 37-47 HGB 10.2 g/dL (Abnormal) Range: 12.0-15.0 RBC 3.58 {M/mm3} (Abnormal) Range: 4.2-5.4 WBC 7.4 K/mm3 (Normal) Range: 4.4-11.0 :03 Ferritin Comments: Is Patient Taking Vitamins or Folic Acid Supplements? [facility] [address] [place], [address] FERRITIN 119 ng/mL (Normal) Range: 8-252 :03 Folates, (Folic Acid) Comments: Is Patient Taking Vitamins or Folic Acid Supplements? [facility] [address] [place], [address] FOLATES > 100.00 ng/mL (Abnormal) Range: 3.1-55.4 :03 Iron+Iron Binding Capacity Comments: Is Patient Taking Vitamins or Folic Acid Supplements? [facility] [address] [place], [address] IRON SATURATION 26.1 % (Normal) Range: 15.0-55.0 IRON 70 ug/dL (Normal) Range: 50-170 TIBC 268 ug/dL (Normal) Range: 250-450 :03 Protein+Creatinine Ratio,Urine Comments: [facility] [address] [place], [address] PROT:CRE RATIO 488 {mg/g_CRE} (Abnormal) Range: 0-200 PROTEIN,UR.RAN. 84.9 mg/dL (Abnormal) UR CREAT 174.00 mg/dL (Normal) 84-Jzw-611776:03 PTHIN 25.1 pg/mL (Normal) Comments: [facility] [address] [place], [place], [id number] Range: 18.4-80.1 36-Knu-267072:03 Renal Profile Comments: Is Patient Taking Vitamins or Folic Acid Supplements? [facility] [address] [place], [place], [id number] CO2 17.0 mmol/L (Abnormal) Range: 21.0-32.0 CL 108 mmol/L (Abnormal) Range: 98-107 K 4.5 mmol/L (Normal) Range: 3.5-5.1 NA 135 mmol/L (Abnormal) Range: 136-145 PHOS 3.3 mg/dL (Normal) Range: 2.5-4.9 CA 9.2 mg/dL (Normal) Range: 8.5-10.1 ALB 3.6 g/dL (Normal) Range: 3.2-5.0 BUN/CRE 13.0 {RATIO} (Normal) Range: 10-20 EST GFR - AA 17 mL/min (Abnormal) Comments: GFR Calc EST GFR 14 mL/min (Abnormal) Comments: Non- GFR Calc CREAT,SERUM 3.39 mg/dL (Abnormal) Range: 0.55-1.02 Comments: The validity of the calculated GFR AND GFRAA in patients over70 years has not been determined. Clinical correlation isessential. BUN 44 mg/dL (Abnormal) Range: 7-18 GLU 89 mg/dL (Normal) Range: 74-106 Comments: Please note revised GLUCOSE reference range dcnadduhp00/02/2018. 44-Iwj-016208:03 Vitamin B12 673 pg/mL (Normal) Comments: [facility] [address] [place], [place], [id number] Range: 211-911 92-Ith-050789:03 Vitamin D,25 Hydroxy Comments: [facility] [address] [place], [place], [id number] Vitamin D 25-OH 30.2 ng/mL (Normal) Range: 29.95-100.01 Comments: Vitamin D 25(OH) Status Range Deficiency <20 ng/mL (50nmol/L) Insuffciency 20 - 30 ng/mL (50 - 75 nmol/L) Sufficiency 30 - 100 ng/mL (75 - 250 nmol/L) Toxicity >100 ng/mL (>250 nmol/L) 59-Bks-862950:24 URINE ANURAG CULTURE-TYSON COL Comments: PATIENT NOT FASTINGPERFORMED BY: [facility] Ylzadr0021 [facility] [id number] Information: SRC:UC COUNT ([id number]) Antimicrobial MIHEAD (Normal) Comments: S = Susceptible; I = Intermediate; R = Resistant P = Positive; N = Negative MICS are expressed in micrograms per mL Antibiotic RSLT#1 RSLT#2 RS Susceptibility LT#3 RSLT#4Amoxicillin/Clavulanic Acid SAmpicillin SCefepime SCeftriaxone SCefuroxime SCiprofloxacin SErtapenem SGentamicin SImipenem SLevofloxacin SMeropenem SNitrofurantoin RPipera cillin/Tazobactam STetracycline STobramycin STrimethoprim/Sulfa S Result 1 Escherichia coli Comments: Greater than 100,000 colony forming units per mLCefazolin <=4 ug/mLCefazolin with an AZUL <=16 predicts susceptibility to the oral agentscefaclor, cefdinir, cefpodoxime, cefprozil, cefuroxime, ceph (Abnormal) alexin,and loracarbef when used for therapy of uncomplicated urinary tractinfections due to E. coli, Klebsiella pneumoniae, and Proteusmirabilis. Urine Final report Culture,Comprehensive (Abnormal) 18-Auq-566725:03 Urinalysis, Office (23682) UA - LEUKOCYTE ESTERASE Large (Normal) UA - NITRITE Negative (Normal) URINE UROBILINGN TYSON TIMED Normal mg/dL (Normal) UA - PROTEIN 100 mg/dL (Normal) UA - PH 6 (Abnormal) UA - SPECIFIC GRAVITY 1.030 (Abnormal) UA - KETONES Negative mg/dL (Normal) UA - BILIRUBIN Negative (Normal) UA - GLUCOSE Negative (Normal) 5-Brw-473006:30 URINE ANURAG CULTURE-IDENTIFICATN Comments: PATIENT NOT FASTINGPERFORMED BY: [facility] Hqbrvh7095 [facility] [id number] Information: SRC: ([id number]) Antimicrobial MIHEAD (Normal) Comments: S = Susceptible; I = Intermediate; R = Resistant P = Positive; N = Negative MICS are expressed in micrograms per mL Antibiotic RSLT#1 RSLT#2 RS Susceptibility LT#3 RSLT#4Amoxicillin/Clavulanic Acid SAmpicillin SCefepime SCeftriaxone SCefuroxime SCiprofloxacin SErtapenem SGentamicin SImipenem SLevofloxacin SMeropenem SNitrofurantoin SPipera cillin/Tazobactam STetracycline STobramycin STrimethoprim/Sulfa S Result 1 Escherichia coli Comments: Greater than 100,000 colony forming units per mLCefazolin <=4 ug/mLCefazolin with an AZUL <=16 predicts susceptibility to the oral agentscefaclor, cefdinir, cefpodoxime, cefprozil, cefuroxime, ceph (Abnormal) alexin,and loracarbef when used for therapy of uncomplicated urinary tractinfections due to E. coli, Klebsiella pneumoniae, and Proteusmirabilis. Urine Final report Culture,Comprehensive (Abnormal) 3-Ycq-217627:22 Urinalysis, Office (81277) UA - LEUKOCYTE ESTERASE Large (Normal) UA - NITRITE Positive (Normal) URINE UROBILINGN TYSON TIMED Normal mg/dL (Normal) UA - PROTEIN 300 mg/dL (Normal) UA - PH 6 (Abnormal) UA - BLOOD Hemolyzed Large (Normal) UA - SPECIFIC GRAVITY 1.030 (Abnormal) UA - KETONES Negative mg/dL (Normal) UA - BILIRUBIN Negative (Normal) UA - GLUCOSE Negative (Normal) 3-Wvq-871018:06 CBC W/Diff, Automated Comments: Reason for Laboratory Test [facility] [address] [place], [address] Absolute Lymph 1.45 {X10_3/ul} (Normal) Range: 0.83-4.51 Absolute Neut 4.6 {X10_3/uL} (Normal) Range: 2.0-7.7 IM GRAN % 0.100 % (Normal) Range: 0.0-0.9 Comments: IG% - Immature Granulocytes (promyelocytes, myelocytes andmetamyelocytes) > 1% indicates that a LEFT SHIFT is Present. BASO% 0.3 % (Normal) Range: 0-1 EO% 4.2 % (Normal) Range: 0-5 MONO% 7.2 % (Normal) Range: 0-10 LY% 21.2 % (Normal) Range: 19-41 NEUT% 67.0 % (Normal) Range: 47-70 MPV 9.5 fL (Normal) Range: 6.2-12.0 PLT 214 K/mm3 (Normal) Range: 150-450 RDW SD 45.5 fL (Abnormal) Range: 35.1-43.9 RDW CV 13.9 % (Normal) Range: 11.6-14.6 MCHC 31.8 {g/gl} (Abnormal) Range: 32-36 MCH 28.6 pg (Normal) Range: 27.0-32.0 MCV 89.7 fL (Normal) Range: 81-99 HCT 31.4 % (Abnormal) Range: 37-47 HGB 10.0 g/dL (Abnormal) Range: 12.0-15.0 RBC 3.50 {M/mm3} (Abnormal) Range: 4.2-5.4 WBC 6.8 K/mm3 (Normal) Range: 4.4-11.0 4-Mpu-128605:06 Comprehensive Metabolic Profil Comments: Reason for Laboratory Test OVSerial Specimen #1, #2 or #3? [facility] [address], [address] GAP 8 (Normal) Range: 5-15 CO2 22.0 mmol/L (Normal) Range: 21.0-32.0 CL 109 mmol/L (Abnormal) Range: 98-107 K 3.9 mmol/L (Normal) Range: 3.5-5.1 NA 139 mmol/L (Normal) Range: 136-145 T BILI 0.30 mg/dL (Normal) Range: 0.20-1.00 ALT 15 U/L (Normal) Range: 13-56 ALK P 57 U/L (Normal) Range: 45-117 AST 16 U/L (Normal) Range: 15-37 CA 8.9 mg/dL (Normal) Range: 8.5-10.1 A/G 0.8 {RATIO} (Abnormal) Range: 0.9-2.4 GLOB 4.2 g/dL (Normal) Range: 2.2-4.2 ALB 3.3 g/dL (Normal) Range: 3.2-5.0 T PROT 7.5 g/dL (Normal) Range: 6.4-8.2 BUN/CRE 13.5 {RATIO} (Normal) Range: 10-20 Estimated CRCL 11.44 ml/min (Normal) EST GFR - AA 17 mL/min (Abnormal) Comments: GFR Calc EST GFR 14 mL/min (Abnormal) Comments: Non- GFR Calc CREAT,SERUM 3.33 mg/dL (Abnormal) Range: 0.55-1.02 Comments: The validity of the calculated GFR AND GFRAA in patients over70 years has not been determined. Clinical correlation isessential. BUN 45 mg/dL (Abnormal) Range: 7-18 GLU 79 mg/dL (Normal) Range: 74-106 Comments: Please note revised GLUCOSE reference range gxchbjewy73/02/2018. 8-Ptx-565579:06 LDH 141 U/L (Normal) Comments: Reason for Laboratory Test OVSerial Specimen #1, #2 or #3? [facility] [address] [place], [address] Range: 84-246 24-Djn-775739:23 Metabolic Panel, Basic Comments: assure GFR is in this [panel if not do separately; PATIENT NOT FASTINGPERFORMED BY: [facility] Mjkpav8573 [facility] [id number] ([id number]) Calcium 9.9 mg/dL (Normal) Range: 8.7-10.3 Carbon Dioxide, Total 19 mmol/L (Abnormal) Range: 20-29 Comments: Please note reference interval change Chloride 105 mmol/L (Normal) Range: 96-106 Potassium 4.4 mmol/L (Normal) Range: 3.5-5.2 Sodium 140 mmol/L (Normal) Range: 134-144 BUN/Creatinine Ratio 18 (Normal) Range: 12-28 eGFR If Africn Am 17 mL/min/1.73 (Abnormal) eGFR If NonAfricn Am 15 mL/min/1.73 (Abnormal) Creatinine 2.90 mg/dL (Abnormal) Range: 0.57-1.00 Comments: Client Requested Flag BUN 52 mg/dL (Abnormal) Range: 8-27 Glucose 80 mg/dL (Normal) Range: 65-99 36-Zsv-902894:48 Metabolic Panel, Comprehensive Comments: PATIENT NOT FASTINGPERFORMED BY: NUVIA [facility] Jzlffn4435 Paiz [facility] [id number] (08913) ALT (SGPT) 8 [iU]/L (Normal) Range: 0-32 AST (SGOT) 16 [iU]/L (Normal) Range: 0-40 Alkaline Phosphatase 57 [iU]/L (Normal) Range: 39-117 Bilirubin, Total <0.2 mg/dL (Normal) Range: 0.0-1.2 A/G Ratio 1.3 (Normal) Range: 1.2-2.2 Globulin, Total 3.1 g/dL (Normal) Range: 1.5-4.5 Albumin 4.1 g/dL (Normal) Range: 3.5-4.7 Protein, Total 7.2 g/dL (Normal) Range: 6.0-8.5 Calcium 9.4 mg/dL (Normal) Range: 8.7-10.3 Carbon Dioxide, Total 17 mmol/L (Abnormal) Range: 18-29 Comments: Effective January 08, 2018 Carbon Dioxide, Total reference interval will be changing to: Age Male Female 0 days - 30 days 16 - 29 16 - 29 31 days - 1 year 15 - 25 15 - 25 2 years - 5 years 17 - 26 17 - 26 6 y ears - 12 years 19 - 27 19 - 27 >12 years 20 - 29 20 - 29 Chloride 103 mmol/L (Normal) Range: 96-106 Potassium 4.4 mmol/L (Normal) Range: 3.5-5.2 Sodium 139 mmol/L (Normal) Range: 134-144 BUN/Creatinine Ratio 17 (Normal) Range: 12-28 eGFR If Africn Am 18 mL/min/1.73 (Abnormal) eGFR If NonAfricn Am 16 mL/min/1.73 (Abnormal) Creatinine 2.76 mg/dL (Abnormal) Range: 0.57-1.00 BUN 46 mg/dL (Abnormal) Range: 8-27 Glucose 89 mg/dL (Normal) Range: 65-99 63-Qwp-405953:48 C-REACTIVE PROTEIN (22865) Comments: PATIENT NOT FASTINGPERFORMED BY: [facility] Afyihk2519 [facility] [id number] C-Reactive Protein, Quant 5.1 mg/L (Abnormal) Range: 0.0-4.9 :48 Sed Rate Erythrocyte (55218) Comments: PATIENT NOT FASTINGPERFORMED BY: [facility] CenterKkqbpz2438 [facility] [id number] Sedimentation Rate-Westergren 4 mm/h (Normal) Range: 0-40 :48 CBC W/AUTO DIFF WBC (91460) Comments: PATIENT NOT FASTINGPERFORMED BY: [facility] Xittzc4139 [facility] [id number] Immature Grans (Abs) 0.0 {x10E3/uL} (Normal) Range: 0.0-0.1 Immature Granulocytes 0 % (Normal) Baso (Absolute) 0.0 {x10E3/uL} (Normal) Range: 0.0-0.2 Eos (Absolute) 0.2 {x10E3/uL} (Normal) Range: 0.0-0.4 Monocytes(Absolute) 0.7 {x10E3/uL} (Normal) Range: 0.1-0.9 Lymphs (Absolute) 1.3 {x10E3/uL} (Normal) Range: 0.7-3.1 Neutrophils (Absolute) 8.1 {x10E3/uL} (Abnormal) Range: 1.4-7.0 Basos 0 % (Normal) Eos 2 % (Normal) Monocytes 6 % (Normal) Lymphs 13 % (Normal) Neutrophils 79 % (Normal) Platelets 234 {x10E3/uL} (Normal) Range: 150-379 RDW 14.9 % (Normal) Range: 12.3-15.4 MCHC 31.6 g/dL (Normal) Range: 31.5-35.7 MCH 28.3 pg (Normal) Range: 26.6-33.0 MCV 90 fL (Normal) Range: 79-97 Hematocrit 31.6 % (Abnormal) Range: 34.0-46.6 Hemoglobin 10.0 g/dL (Abnormal) Range: 11.1-15.9 RBC 3.53 {x10E6/uL} (Abnormal) Range: 3.77-5.28 WBC 10.3 {x10E3/uL} (Normal) Range: 3.4-10.8 22-Trp-953121:59 CBC-Complete Blood Cnt No Diff Comments: [facility] [address] [place], [id number]([phone] MPV 10.2 fL (Normal) Range: 6.2-12.0 PLT 209 K/mm3 (Normal) Range: 150-450 RDW SD 44.0 fL (Abnormal) Range: 35.1-43.9 RDW CV 13.8 % (Normal) Range: 11.6-14.6 MCHC 31.7 {g/gl} (Abnormal) Range: 32-36 MCH 28.4 pg (Normal) Range: 27.0-32.0 MCV 89.7 fL (Normal) Range: 81-99 HCT 30.6 % (Abnormal) Range: 37-47 HGB 9.7 g/dL (Abnormal) Range: 12.0-15.0 RBC 3.41 {M/mm3} (Abnormal) Range: 4.2-5.4 WBC 6.2 K/mm3 (Normal) Range: 4.4-11.0 96-Kjr-624861:59 Magnesium Comments: [address] [place], [id number] MG 2.1 mg/dL (Normal) Range: 1.6-2.6 51-Rwq-263149:59 Microalb:Creat Ratio,Random UR Comments: [facility] [address] [place], [id number] MALB:CREAT 27.0 {mg/g_CRE} (Normal) MICROALBUMIN,UR 44.5 mg/L (Normal) UR CREAT 165.00 mg/dL (Normal) 42-Mms-772139:59 PTHIN 32.8 pg/mL (Normal) Comments: [place] [address] [place], [id number] Range: 18.4-80.1 30-Ikj-063774:59 Renal Profile Comments: [address] [place], [id number] CO2 21.0 mmol/L (Normal) Range: 21.0-32.0 CL 109 mmol/L (Abnormal) Range: 98-107 K 4.2 mmol/L (Normal) Range: 3.5-5.1 NA 139 mmol/L (Normal) Range: 136-145 PHOS 4.0 mg/dL (Normal) Range: 2.5-4.9 CA 8.8 mg/dL (Normal) Range: 8.5-10.1 ALB 3.5 g/dL (Normal) Range: 3.2-5.0 BUN/CRE 15.7 {RATIO} (Normal) Range: 10-20 Estimated CRCL 13.28 ml/min (Normal) EST GFR - AA 20 mL/min (Abnormal) Comments: GFR Calc EST GFR 17 mL/min (Abnormal) Comments: Non- GFR Calc CREAT,SERUM 2.87 mg/dL (Abnormal) Range: 0.55-1.02 Comments: The validity of the calculated GFR AND GFRAA in patients over70 years has not been determined. Clinical correlation isessential. BUN 45 mg/dL (Abnormal) Range: 7-18 GLU 79 mg/dL (Normal) Range: 74-106 Comments: Please note revised GLUCOSE reference range eaexzosrd55/02/2018. 84-Xpr-900829:59 Vitamin D,25 Hydroxy Comments: [facility] [address] [place], [id number] Vitamin D 25-OH 35.5 ng/mL (Normal) Range: 29.95-100.01 Comments: Vitamin D 25(OH) Status Range Deficiency <20 ng/mL (50nmol/L) Insuffciency 20 - 30 ng/mL (50 - 75 nmol/L) Sufficiency 30 - 100 ng/mL (75 - 250 nmol/L) Toxicity >100 ng/mL (>250 nmol/L) 3-Luo-048484:33 CBC-Complete Blood Cnt No Diff Comments: [facility] [address] [place], [id number] MPV 10.1 fL (Normal) Range: 6.2-12.0 PLT 156 K/mm3 (Normal) Range: 150-450 RDW SD 57.0 fL (Abnormal) Range: 35.1-43.9 RDW CV 17.1 % (Abnormal) Range: 11.6-14.6 MCHC 30.9 {g/gl} (Abnormal) Range: 32-36 MCH 28.3 pg (Normal) Range: 27.0-32.0 MCV 91.6 fL (Normal) Range: 81-99 HCT 28.5 % (Abnormal) Range: 37-47 HGB 8.8 g/dL (Abnormal) Range: 12.0-15.0 RBC 3.11 {M/mm3} (Abnormal) Range: 4.2-5.4 WBC 6.4 K/mm3 (Normal) Range: 4.4-11.0 2-Ojr-688230:33 Magnesium Comments: [facility] [address] [place], [address](314) MG 1.8 mg/dL (Normal) Range: 1.8-2.4 3-Wbg-500405:33 Microalb:Creat Ratio,Random UR Comments: [facility] [address] [place], [id number] MALB:CREAT 24.8 {mg/g_CRE} (Normal) MICROALBUMIN,UR 41.4 mg/L (Normal) UR CREAT 167.00 mg/dL (Normal) 6-Rbw-590721:33 PTHIN 8.3 pg/mL (Abnormal) Comments: [facility] [address] [place], [address] Range: 18.4-80.1 Comments: Please Note: PTH INTACT METHOD AND REFERENCE RANGE CHANGEEffective 07/19/2017. 4-Lea-296853:33 Renal Profile Comments: [facility] [address] [place], [address] CO2 25.0 mmol/L (Normal) Range: 21.0-32.0 CL 107 mmol/L (Normal) Range: 98-107 K 5.1 mmol/L (Normal) Range: 3.5-5.1 NA 139 mmol/L (Normal) Range: 136-145 PHOS 2.3 mg/dL (Abnormal) Range: 2.5-4.9 CA 10.0 mg/dL (Normal) Range: 8.5-10.1 ALB 3.6 g/dL (Normal) Range: 3.4-5.0 Comments: Please note revised Albumin AND Globulin reference rangeeffective 2017. BUN/CRE 13.5 {RATIO} (Normal) Range: 10-20 EST GFR - AA 27 mL/min (Abnormal) Comments: GFR Calc EST GFR 23 mL/min (Abnormal) Comments: Non- GFR Calc CREAT,SERUM 2.22 mg/dL (Abnormal) Range: 0.55-1.02 Comments: The validity of the calculated GFR AND GFRAA in patients over70 years has not been determined. Clinical correlation isessential. BUN 30 mg/dL (Abnormal) Range: 7-18 GLU 89 mg/dL (Normal) Range: 70-110 3-Upg-794126:33 Vitamin D,25 Hydroxy Comments: [facility] [address]rf1622 [facility]. [place], [place], [address] Vitamin D 25-OH 50.6 ng/mL (Normal) Comments: Vitamin D 25(OH) Status Range Deficiency <20 ng/mL (50nmol/L) Insuffciency 20 - 30 ng/mL (50 - 75 nmol/L) Sufficiency 30 - 100 ng/mL (75 - 250 nmol/L) Toxicity >100 ng/mL (>250 nmol/L) 8-Iod-834738:30 CBC W/Diff, Automated Comments: [facility] [address]wgnh6128 [facility]. [place], [place], [id number] ; [place]ur Absolute Lymph 1.75 {X10_3/ul} (Normal) Range: 0.83-4.51 Absolute Neut 3.2 {X10_3/uL} (Normal) Range: 2.0-7.7 IM GRAN % 0.200 % (Normal) Range: 0.0-0.9 Comments: IG% - Immature Granulocytes (promyelocytes, myelocytes andmetamyelocytes) > 1% indicates that a LEFT SHIFT is Present. BASO% 0.2 % (Normal) Range: 0-1 EO% 2.3 % (Normal) Range: 0-5 MONO% 8.5 % (Normal) Range: 0-10 LY% 31.5 % (Normal) Range: 19-41 NEUT% 57.3 % (Normal) Range: 47-70 MPV 9.9 fL (Normal) Range: 6.2-12.0 PLT 133 K/mm3 (Abnormal) Range: 150-450 RDW SD 56.5 fL (Abnormal) Range: 35.1-43.9 RDW CV 16.9 % (Abnormal) Range: 11.6-14.6 MCHC 31.3 {g/gl} (Abnormal) Range: 32-36 MCH 28.5 pg (Normal) Range: 27.0-32.0 MCV 91.1 fL (Normal) Range: 81-99 HCT 25.6 % (Abnormal) Range: 37-47 HGB 8.0 g/dL (Abnormal) Range: 12.0-15.0 RBC 2.81 {M/mm3} (Abnormal) Range: 4.2-5.4 WBC 5.6 K/mm3 (Normal) Range: 4.4-11.0 9-Qhf-746716:30 Prothrombin Time w/INR Comments: [facility] [address] [place], [place], [id number] INR 1.3 (Normal) PROTIME 15.2 s (Abnormal) Range: 11.7-14.9 97-Nnv-857887:49 CBC W/Diff, Automated Comments: [facility] [address] [place], [place], [address] Absolute Lymph 1.42 {X10_3/ul} (Normal) Range: 0.83-4.51 Absolute Neut 2.8 {X10_3/uL} (Normal) Range: 2.0-7.7 IM GRAN % 0.400 % (Normal) Range: 0.0-0.9 Comments: IG% - Immature Granulocytes (promyelocytes, myelocytes andmetamyelocytes) > 1% indicates that a LEFT SHIFT is Present. BASO% 0.6 % (Normal) Range: 0-1 EO% 5.1 % (Abnormal) Range: 0-5 MONO% 6.7 % (Normal) Range: 0-10 LY% 29.0 % (Normal) Range: 19-41 NEUT% 58.2 % (Normal) Range: 47-70 MPV 9.1 fL (Normal) Range: 6.2-12.0 PLT 245 K/mm3 (Normal) Range: 150-450 RDW SD 54.2 fL (Abnormal) Range: 35.1-43.9 RDW CV 16.6 % (Abnormal) Range: 11.6-14.6 MCHC 30.5 {g/gl} (Abnormal) Range: 32-36 MCH 27.8 pg (Normal) Range: 27.0-32.0 MCV 91.3 fL (Normal) Range: 81-99 HCT 29.2 % (Abnormal) Range: 37-47 HGB 8.9 g/dL (Abnormal) Range: 12.0-15.0 RBC 3.20 {M/mm3} (Abnormal) Range: 4.2-5.4 WBC 4.9 K/mm3 (Normal) Range: 4.4-11.0 :43 Prothrombin Time w/INR Comments: Reason for Laboratory Test [facility] [address]76 [facility]. [place], [place], [address] INR 1.1 (Normal) PROTIME 13.6 s (Normal) Range: 11.7-14.9 :06 MAGNESIUM (78320) Comments: PATIENT NOT FASTINGPERFORMED BY: [facility] Zybnuz6415 [facility] [id number] Magnesium, Serum 1.8 mg/dL (Normal) Range: 1.6-2.3 14-Wuz-753878:06 METABOLIC PANEL, COMPREHENSIVE Comments: PATIENT NOT FASTINGPERFORMED BY: [facility] Jjgqqz1757 [facility] [id number] ([id number]) ALT (SGPT) 11 [iU]/L (Normal) Range: 0-32 AST (SGOT) 21 [iU]/L (Normal) Range: 0-40 Alkaline Phosphatase, S 61 [iU]/L (Normal) Range: 39-117 Bilirubin, Total <0.2 mg/dL (Normal) Range: 0.0-1.2 A/G Ratio 1.2 (Normal) Range: 1.2-2.2 Globulin, Total 2.9 g/dL (Normal) Range: 1.5-4.5 Albumin, Serum 3.5 g/dL (Normal) Range: 3.5-4.7 Protein, Total, Serum 6.4 g/dL (Normal) Range: 6.0-8.5 Calcium, Serum 10.4 mg/dL (Abnormal) Range: 8.7-10.3 Carbon Dioxide, Total 25 mmol/L (Normal) Range: 18-29 Chloride, Serum 97 mmol/L (Normal) Range: 96-106 Potassium, Serum 5.1 mmol/L (Normal) Range: 3.5-5.2 Sodium, Serum 137 mmol/L (Normal) Range: 134-144 BUN/Creatinine Ratio 13 (Normal) Range: 12-28 eGFR If Africn Am 22 mL/min/1.73 (Abnormal) eGFR If NonAfricn Am 19 mL/min/1.73 (Abnormal) Creatinine, Serum 2.30 mg/dL (Abnormal) Range: 0.57-1.00 BUN 30 mg/dL (Abnormal) Range: 8-27 Glucose, Serum 109 mg/dL (Abnormal) Range: 65-99 [id number] Metabolic Panel, Basic Comments: PATIENT NOT FASTINGPERFORMED BY: [facility] [id number] [facility] [id number] ([id number]) Calcium, Serum 8.7 mg/dL (Normal) Range: 8.7-10.3 Carbon Dioxide, Total 28 mmol/L (Normal) Range: 18-29 Chloride, Serum 96 mmol/L (Normal) Range: 96-106 Potassium, Serum 3.4 mmol/L (Abnormal) Range: 3.5-5.2 Comments: Client Requested Flag Sodium, Serum 138 mmol/L (Normal) Range: 134-144 BUN/Creatinine Ratio 10 (Abnormal) Range: 12-28 eGFR If Africn Am 30 mL/min/1.73 (Abnormal) eGFR If NonAfricn Am 26 mL/min/1.73 (Abnormal) Creatinine, Serum 1.81 mg/dL (Abnormal) Range: 0.57-1.00 BUN 19 mg/dL (Normal) Range: 8-27 Glucose, Serum 80 mg/dL (Normal) Range: 65-99 [id number] Basic Metabolic Profile (BMP) Comments: Order Date: 07/11/17Order Info: [id number] - [facility] [id number] [place], [place], [id number] GAP 9 (Normal) Range: 5-15 CO2 26.0 mmol/L (Normal) Range: 21.0-32.0 CL 104 mmol/L (Normal) Range: 98-107 K 3.5 mmol/L (Normal) Range: 3.5-5.1 NA 139 mmol/L (Normal) Range: 136-145 CA 7.8 mg/dL (Abnormal) Range: 8.5-10.1 BUN/CRE 12.5 {RATIO} (Normal) Range: 10-20 EST GFR - AA 34 mL/min (Abnormal) Comments: GFR Calc EST GFR 28 mL/min (Abnormal) Comments: Non- GFR Calc CREAT,SERUM 1.84 mg/dL (Abnormal) Range: 0.55-1.02 Comments: The validity of the calculated GFR AND GFRAA in patients over70 years has not been determined. Clinical correlation isessential. BUN 23 mg/dL (Abnormal) Range: 7-18 GLU 78 mg/dL (Normal) Range: 70-110 [id number] Prothrombin Time w/INR Comments: Order Date: 07/11/17Order Info: [id number] - [facility] [id number] [place], [place], [id number] INR 1.3 (Normal) PROTIME 15.4 s (Abnormal) Range: 11.7-14.9 [id number] CBC W/Diff, Automated Comments: Reason for Laboratory Test .[facility] [id number] [place], [place], [id number] Absolute Lymph 0.61 {X10_3/ul} (Abnormal) Range: 0.83-4.51 Absolute Neut 8.8 {X10_3/uL} (Abnormal) Range: 2.0-7.7 IM GRAN % 0.500 % (Normal) Range: 0.0-0.9 Comments: IG% - Immature Granulocytes (promyelocytes, myelocytes andmetamyelocytes) > 1% indicates that a LEFT SHIFT is Present. BASO% 0.2 % (Normal) Range: 0-1 EO% 2.9 % (Normal) Range: 0-5 MONO% 7.9 % (Normal) Range: 0-10 LY% 5.7 % (Abnormal) Range: 19-41 NEUT% 82.8 % (Abnormal) Range: 47-70 MPV 9.5 fL (Normal) Range: 6.2-12.0 PLT 468 K/mm3 (Abnormal) Range: 150-450 RDW SD 48.7 fL (Abnormal) Range: 35.1-43.9 RDW CV 15.7 % (Abnormal) Range: 11.6-14.6 MCHC 31.9 {g/gl} (Abnormal) Range: 32-36 MCH 28.9 pg (Normal) Range: 27.0-32.0 MCV 90.7 fL (Normal) Range: 81-99 HCT 25.4 % (Abnormal) Range: 37-47 HGB 8.1 g/dL (Abnormal) Range: 12.0-15.0 RBC 2.80 {M/mm3} (Abnormal) Range: 4.2-5.4 WBC 10.7 K/mm3 (Normal) Range: 4.4-11.0 8-Jmt-605633:52 Comprehensive Metabolic Profil Comments: Reason for Laboratory Test .Serial Specimen #1, #2 or #3? [facility] [address]agahzh[address] [place], [place], [id number] GAP 12 (Normal) Range: 5-15 CO2 24.0 mmol/L (Normal) Range: 21.0-32.0 CL 103 mmol/L (Normal) Range: 98-107 K 2.9 mmol/L (Abnormal) Range: 3.5-5.1 NA 139 mmol/L (Normal) Range: 136-145 T BILI 0.40 mg/dL (Normal) Range: 0.20-1.00 ALT 14 U/L (Normal) Range: 12-78 ALK P 56 U/L (Normal) Range: 45-117 AST 18 U/L (Normal) Range: 15-37 CA 8.1 mg/dL (Abnormal) Range: 8.5-10.1 A/G 0.7 {RATIO} (Abnormal) Range: 0.9-2.4 GLOB 3.7 g/dL (Normal) Range: 2.2-4.2 ALB 2.6 g/dL (Abnormal) Range: 3.4-5.0 Comments: Please note revised Albumin AND Globulin reference rangeeffective 2017. T PROT 6.3 g/dL (Abnormal) Range: 6.4-8.2 BUN/CRE 16.9 {RATIO} (Normal) Range: 10-20 Estimated CRCL 18.19 ml/min (Normal) EST GFR - AA 29 mL/min (Abnormal) Comments: GFR Calc EST GFR 24 mL/min (Abnormal) Comments: Non- GFR Calc CREAT,SERUM 2.13 mg/dL (Abnormal) Range: 0.55-1.02 Comments: The validity of the calculated GFR AND GFRAA in patients over70 years has not been determined. Clinical correlation isessential. BUN 36 mg/dL (Abnormal) Range: 7-18 GLU 69 mg/dL (Abnormal) Range: 70-110 8-Iwd-402796:52 LDH 214 U/L (Normal) Comments: Reason for Laboratory Test .Serial Specimen #1, #2 or #3? 1[facility] Dmntfpmelv7381 [facility]. [place], [place], [address] Range: 84-246 6-Tvt-193413:13 Prothrombin Time w/INR Comments: Reason for Laboratory Test [facility] Bwnljxtaky2588 [facility]. [place], [place], [address] INR 1.9 (Normal) PROTIME 21.1 s (Abnormal) Range: 11.7-14.9 70-Wms-778941:00 Basic Metabolic Profile (BMP) Comments: [facility] [address] [place], [address] GAP 10 (Normal) Range: 5-15 CO2 20.0 mmol/L (Abnormal) Range: 21.0-32.0 CL 106 mmol/L (Normal) Range: 98-107 K 4.1 mmol/L (Normal) Range: 3.5-5.1 NA 136 mmol/L (Normal) Range: 136-145 CA 8.5 mg/dL (Normal) Range: 8.5-10.1 BUN/CRE 11.8 {RATIO} (Normal) Range: 10-20 Estimated CRCL 15.19 ml/min (Normal) EST GFR - AA 23 mL/min (Abnormal) Comments: GFR Calc EST GFR 19 mL/min (Abnormal) Comments: Non- GFR Calc CREAT,SERUM 2.55 mg/dL (Abnormal) Range: 0.55-1.02 Comments: The validity of the calculated GFR AND GFRAA in patients over70 years has not been determined. Clinical correlation isessential. BUN 30 mg/dL (Abnormal) Range: 7-18 GLU 80 mg/dL (Normal) Range: 70-110 36-Gkg-085106:00 CBC W/Diff, Automated Comments: [facility] [address] [place], [place], [id number] Absolute Lymph 0.82 {X10_3/ul} (Abnormal) Range: 0.83-4.51 Absolute Neut 14.4 {X10_3/uL} (Abnormal) Range: 2.0-7.7 IM GRAN % 1.200 % (Abnormal) Range: 0.0-0.9 Comments: IG% - Immature Granulocytes (promyelocytes, myelocytes andmetamyelocytes) > 1% indicates that a LEFT SHIFT is Present. BASO% 0.1 % (Normal) Range: 0-1 EO% 0.7 % (Normal) Range: 0-5 MONO% 6.1 % (Normal) Range: 0-10 LY% 4.9 % (Abnormal) Range: 19-41 NEUT% 87.0 % (Abnormal) Range: 47-70 MPV 9.3 fL (Normal) Range: 6.2-12.0 PLT 428 K/mm3 (Normal) Range: 150-450 RDW SD 43.1 fL (Normal) Range: 35.1-43.9 RDW CV 14.0 % (Normal) Range: 11.6-14.6 MCHC 32.3 {g/gl} (Normal) Range: 32-36 MCH 28.6 pg (Normal) Range: 27.0-32.0 MCV 88.6 fL (Normal) Range: 81-99 HCT 29.4 % (Abnormal) Range: 37-47 HGB 9.5 g/dL (Abnormal) Range: 12.0-15.0 RBC 3.32 {M/mm3} (Abnormal) Range: 4.2-5.4 WBC 16.6 K/mm3 (Abnormal) Range: 4.4-11.0 26-Rsb-807983:00 Prothrombin Time w/INR Comments: [facility] [address] [place], [address] INR 2.3 (Normal) PROTIME 24.0 s (Abnormal) Range: 11.7-14.9 38-Zyu-123480:45 Basic Metabolic Profile (BMP) Comments: 'TROP' Serial specimen #1, #2, #3, or #4: [facility] [address]mompx[address] [place], [id number] GAP 13 (Normal) Range: 5-15 CO2 18.0 mmol/L (Abnormal) Range: 21.0-32.0 CL 102 mmol/L (Normal) Range: 98-107 K 3.7 mmol/L (Normal) Range: 3.5-5.1 NA 133 mmol/L (Abnormal) Range: 136-145 CA 7.9 mg/dL (Abnormal) Range: 8.5-10.1 BUN/CRE 17.8 {RATIO} (Normal) Range: 10-20 Estimated CRCL 10.12 ml/min (Normal) EST GFR - AA 15 mL/min (Abnormal) Comments: GFR Calc EST GFR 12 mL/min (Abnormal) Comments: Non- GFR Calc CREAT,SERUM 3.83 mg/dL (Abnormal) Range: 0.55-1.02 Comments: The validity of the calculated GFR AND GFRAA in patients over70 years has not been determined. Clinical correlation isessential. BUN 68 mg/dL (Abnormal) Range: 7-18 GLU 92 mg/dL (Normal) Range: 70-110 41-Rry-400097:45 CBC W/Diff, Automated Comments: [facility] [address] [place], [address] SMEAR COMMENT SCANNED (Normal) Absolute Lymph 1.14 {X10_3/ul} (Normal) Range: 0.83-4.51 Absolute Neut 12.4 {X10_3/uL} (Abnormal) Range: 2.0-7.7 IM GRAN % 0.500 % (Normal) Range: 0.0-0.9 Comments: IG% - Immature Granulocytes (promyelocytes, myelocytes andmetamyelocytes) > 1% indicates that a LEFT SHIFT is Present. BASO% 0.1 % (Normal) Range: 0-1 EO% 0.1 % (Normal) Range: 0-5 MONO% 6.1 % (Normal) Range: 0-10 LY% 7.9 % (Abnormal) Range: 19-41 NEUT% 85.3 % (Abnormal) Range: 47-70 MPV 8.9 fL (Normal) Range: 6.2-12.0 PLT 285 K/mm3 (Normal) Range: 150-450 RDW SD 44.1 fL (Abnormal) Range: 35.1-43.9 RDW CV 13.8 % (Normal) Range: 11.6-14.6 MCHC 32.6 {g/gl} (Normal) Range: 32-36 MCH 28.2 pg (Normal) Range: 27.0-32.0 MCV 86.6 fL (Normal) Range: 81-99 HCT 25.8 % (Abnormal) Range: 37-47 HGB 8.4 g/dL (Abnormal) Range: 12.0-15.0 RBC 2.98 {M/mm3} (Abnormal) Range: 4.2-5.4 WBC 14.5 K/mm3 (Abnormal) Range: 4.4-11.0 12-Lbj-045315:45 Lipase Comments: 'TROP' Serial specimen #1, #2, #3, or #4: [address] [place] [address] Crbgtwzjii7581 [facility] [place] [place], [address] LIPASE 189 U/L (Normal) Range: 73-393 19-Hqw-424063:45 Liver Profile Comments: 'TROP' Serial specimen #1, #2, #3, or #4: [address] [place] [address] Nzdzwfrqyl6528 [facility] [place] [place], [address] D BILI 0.13 mg/dL (Normal) Range: 0.00-0.30 T BILI 0.40 mg/dL (Normal) Range: 0.20-1.00 ALT 13 U/L (Normal) Range: 12-78 ALK P 72 U/L (Normal) Range: 45-117 AST 17 U/L (Normal) Range: 15-37 GLOB 4.4 g/dL (Abnormal) Range: 2.2-4.2 ALB 2.4 g/dL (Abnormal) Range: 3.4-5.0 Comments: Please note revised Albumin AND Globulin reference rangeeffective 2017. T PROT 6.8 g/dL (Normal) Range: 6.4-8.2 09-Scx-909391:45 Troponin-I Comments: 'TROP' Serial specimen #1, #2, #3, or #4: 1[facility] [address] [place], [address] TROPONIN-I < 0.02 ng/mL Comments: TROPONIN-I EXPECTED VALUES <0.05 NEGATIVE 0.06 - 0.59 AT RISK OF VA > OR = 0.60 SUGGEST VA (Normal) LDH 156 [iU]/L (Normal) Comments: PATIENT NOT FASTINGPERFORMED BY: Tiggly70 [facility] [id number] Information: HARD DRAW 4:49 Range: 119-226 Written Authorization WAR (Normal) Comments: PATIENT NOT FASTINGPERFORMED BY: Zscaler [facility] [id number] 4:49 Comments: Written Authorization Received.Authorization received from Rambo STEWARD [id number] by Supriya Cutler 73-Yhq-947721:49 FIBRIN DEGRAD D-DIM TYSON Comments: PATIENT NOT FASTINGPERFORMED BY: Tiggly70 [facility] [id number] ([id number]) D-Dimer 0.75 {mg/L_FEU} (Abnormal) Range: 0.00-0.49 Comments: According to the assay special tax auditor's published package insert, anormal (<0.50 mg/L FEU) D-dimer result in conjunction with a non-highclinical probability assessment, excludes deep vein thrombosis (D VT)and pulmonary embolism (PE) with high sensitivity. .D-dimer values increase with age and this can make VTE exclusion ofan older pop ulation difficult. To address this, the [employer] [employer], based on best available evidence and recent guidelines,recommends that clinicians use age-adjusted D-dimer thresholds inpatients gr eater than 50 years of age with: a) a low probability ofPE who do not meet all Pulmonary Embolism Rule Out Criteria, orb) in those with intermediate probability of PE. The formula for anage-adjusted D-d kyle cut-off is age/100. For example, a 60 year oldpatient would have an age-adjusted cut-off of 0.60 mg/L FEU and an80 year old 0.80 mg/L FEU. :49 CREATINE KINASE TOTAL (35797) Comments: PATIENT NOT FASTINGPERFORMED BY: CB [facility] Wehjuy2667 [address] RoadDublin [place] [id number] Creatine Kinase,Total,Serum 75 U/L (Normal) Range: 24-173 :49 Troponin I (07238) Comments: PATIENT NOT FASTINGPERFORMED BY: CB [facility] Wipamm1391 [address]Dublin [place] [id number] Troponin I <0.01 ng/mL (Normal) Range: 0.00-0.04 :49 CALCIFIDIOL (29167) VIT D 25 Comments: PATIENT NOT FASTINGPERFORMED BY: CB [facility] Tvlnyb0048 [address] RoadDublin [place] [id number] Vitamin D, 25-Hydroxy 44.5 ng/mL (Normal) Range: 30.0-100.0 Comments: Vitamin D deficiency has been defined by the [place] ofUniversity [facility] Centercine and an Endocrine Society practice guideline as alevel of serum 25-OH vitamin D less than 20 ng/mL (1,2).The Endocrine Society went on to further define vitamin Dinsufficiency as a level between 21 and 29 ng/mL (2).1. IOM ([place] of Medicine). 2010. Dietary reference intakes for calcium and D. [place]: The National Academies Press.2. Lluvia MF, Wade WING, Tanner VENEGAS, et al. Evaluation, treatment, and prevention of vitamin D deficiency: an Endocrine Society clinical practice guideline. JCEM. 2010; 96(7):1911-30. :49 Folate (10064) Comments: PATIENT NOT FASTINGPERFORMED BY: CB [facility] Qoanff9745 [address] RoadDublin [place] [id number] Folate (Folic Acid), Serum >20.0 ng/mL (Normal) Comments: A serum folate concentration of less than 3.1 ng/mL isconsidered to represent clinical deficiency. :49 VITAMIN B-12 (CYANOCOBALAMIN) Comments: PATIENT NOT FASTINGPERFORMED BY: [facility] Adhkvj9348 [address] [facility] [id number] (43679) Vitamin B12 1257 pg/mL (Abnormal) Range: 211-946 :49 TSH (95012) Comments: PATIENT NOT FASTINGPERFORMED BY: [facility] Gcxzmz1813 [address] [facility] [place] [id number] TSH 3.740 {uIU/mL} (Normal) Range: 0.450-4.500 :49 SED RATE ERYTHROCYTE (07519) Comments: PATIENT NOT FASTINGPERFORMED BY: [facility] Zctrvc5567 [address] [facility] [id number] Sedimentation Rate-Westergren 68 mm/h (Abnormal) Range: 0-40 :49 METABOLIC PANEL, Comments: PATIENT NOT FASTINGPERFORMED BY: [facility] Khnrpo7584 [facility] [id number] Information: HARD DRAW COMPREHENSIVE (79914) ALT (SGPT) 13 [iU]/L (Normal) Range: 0-32 AST (SGOT) 20 [iU]/L (Normal) Range: 0-40 Alkaline Phosphatase, S 60 [iU]/L (Normal) Range: 39-117 Bilirubin, Total 0.2 mg/dL (Normal) Range: 0.0-1.2 A/G Ratio 1.7 (Normal) Range: 1.2-2.2 Globulin, Total 2.6 g/dL (Normal) Range: 1.5-4.5 Albumin, Serum 4.3 g/dL (Normal) Range: 3.5-4.7 Protein, Total, Serum 6.9 g/dL (Normal) Range: 6.0-8.5 Calcium, Serum 9.1 mg/dL (Normal) Range: 8.7-10.3 Carbon Dioxide, Total 16 mmol/L (Abnormal) Range: 18-29 Chloride, Serum 98 mmol/L (Normal) Range: 96-106 Potassium, Serum 4.3 mmol/L (Normal) Range: 3.5-5.2 Sodium, Serum 136 mmol/L (Normal) Range: 134-144 BUN/Creatinine Ratio 14 (Normal) Range: 12-28 eGFR If Africn Am 17 mL/min/1.73 (Abnormal) eGFR If NonAfricn Am 14 mL/min/1.73 (Abnormal) Creatinine, Serum 2.94 mg/dL (Abnormal) Range: 0.57-1.00 Comments: Client Requested Flag BUN 40 mg/dL (Abnormal) Range: 8-27 Glucose, Serum 86 mg/dL (Normal) Range: 65-99 :49 C-REACTIVE PROTEIN (36622) Comments: PATIENT NOT FASTINGPERFORMED BY: [facility]CoHoly Name Medical CenterTbruoo3423 [facility] [id number] C-Reactive Protein, Quant 39.7 mg/L (Abnormal) Range: 0.0-4.9 :49 CBC (AUTO) (85410) Comments: PATIENT NOT FASTINGPERFORMED BY: [facility]CoHoly [facility] CenterAvicbu7714 [facility] [id number] Platelets 289 {x10E3/uL} (Normal) Range: 150-379 RDW 14.1 % (Normal) Range: 12.3-15.4 MCHC 33.8 g/dL (Normal) Range: 31.5-35.7 MCH 28.8 pg (Normal) Range: 26.6-33.0 MCV 85 fL (Normal) Range: 79-97 Hematocrit 30.8 % (Abnormal) Range: 34.0-46.6 Hemoglobin 10.4 g/dL (Abnormal) Range: 11.1-15.9 RBC 3.61 {x10E6/uL} (Abnormal) Range: 3.77-5.28 WBC 7.4 {x10E3/uL} (Normal) Range: 3.4-10.8 :53 Prothrombin Time w/INR Comments: Reason for Laboratory Test [facility] [address] [place], [address] INR 3.0 (Normal) PROTIME 30.2 s (Abnormal) Range: 11.7-14.9 52-Dib-312878:29 URINE ANURAG CULTURE-IDENTIFICATN Comments: PATIENT NOT FASTINGPERFORMED BY: [facility] Wmjwuf4366 [address] [place] [id number] Information: SRC:UC (44132) Result 1 MUG (Normal) Comments: Mixed urogenital flora1,000 Colonies/mL Urine Culture,Comprehensive Final report (Normal) 55-Ife-694776:12 Urinalysis, Office (65331) UA - LEUKOCYTE ESTERASE Negative (Normal) UA - NITRITE Negative (Normal) URINE UROBILINGN TYSON TIMED Normal mg/dL (Normal) UA - PROTEIN 30 mg/dL (Normal) UA - PH 6 (Abnormal) UA - BLOOD non-hemolyzed trace (Normal) UA - SPECIFIC GRAVITY 1.020 (Normal) UA - KETONES Negative mg/dL (Normal) UA - BILIRUBIN Negative (Normal) UA - GLUCOSE Negative (Normal) 81-Bgw-098704:45 CBC W/Diff, Auto - EPLAB Comments: At [facility] Oncologypatients receive CBC w/auto Differential ONLY. Physicianwill place an order for a manual differential or Pathologistreview at his discretion. [facility]IENT [facility]. [address] [address] [address] RECORDING STUDIO SET UP WORKER: OMERO ZAMUDIO DO PH:[phone] [facility] [address]ghksomfwb97[address] [place], [address] Absolute Lymph 1.02 {X10_3/uL} (Normal) Range: 0.83-4.51 Absolute Neut 4.8 {X10_3/uL} (Normal) Range: 2.0-7.7 BASO% 1.1 % (Abnormal) Range: 0-1 EO% 5.2 % (Abnormal) Range: 0-5 MONO% 9.1 % (Normal) Range: 0-10 LY% 14.7 % (Abnormal) Range: 19-41 NEUT% 70.0 % (Normal) Range: 47-70 MPV 7.3 fL (Normal) Range: 6.2-12.0 PLT 221 K/mm3 (Normal) Range: 150-450 RDW 13.2 % (Normal) Range: 11.6-14.6 MCHC 34.0 g/dL (Normal) Range: 32-36 MCH 31.6 pg (Normal) Range: 27.0-32.0 MCV 93.1 fL (Normal) Range: 81-99 HCT 31.5 % (Abnormal) Range: 37-47 HGB 10.7 g/dL (Abnormal) Range: 12.0-15.0 RBC 3.39 {M/mm3} (Abnormal) Range: 4.2-5.4 WBC 6.9 K/mm3 (Normal) Range: 4.4-11.0 06-Sbc-896129:32 LDH 182 U/L (Normal) Comments: Reason for Laboratory Test OFFICE VISIT/ROUTINESerial Specimen #1, #2 or #3? [facility] [address]yqtsaej[address], [address] Range: 84-246 87-Owj-871153:32 Prothrombin Time w/INR Comments: Reason for Laboratory Test ROUTINE MEDICATION CHECKWProMed[facility] Rrokfsxsat[address], [address] INR 2.6 (Normal) PROTIME 27.2 s (Abnormal) Range: 11.7-14.9 89-Gqa-288539:24 CBC W/Diff, Auto - EPLAB Comments: Reason for Laboratory Test .At [facility] Outpatient [facility] Medical Oncologypatients receive CBC w/auto Differential ONLY. Physicianwill place an order for a manual differential or Pathologistrev Only iew at his discretion. [facility]. [address] [place] [address] [address] RECORDING STUDIO SET UP WORKER: OMERO ZAMUDIO DO PH:[phone] County Hospital Yfiuflvpwt39[address], [address] Absolute Lymph 2.94 {X10_3/uL} (Normal) Range: 0.83-4.51 Absolute Neut 4.5 {X10_3/uL} (Normal) Range: 2.0-7.7 BASO% 0.6 % (Normal) Range: 0-1 EO% 5.6 % (Abnormal) Range: 0-5 MONO% 4.3 % (Normal) Range: 0-10 LY% 35.2 % (Normal) Range: 19-41 NEUT% 54.3 % (Normal) Range: 47-70 MPV 6.6 fL (Normal) Range: 6.2-12.0 PLT 383 K/mm3 (Normal) Range: 150-450 RDW 13.2 % (Normal) Range: 11.6-14.6 MCHC 33.8 g/dL (Normal) Range: 32-36 MCH 31.7 pg (Normal) Range: 27.0-32.0 MCV 93.5 fL (Normal) Range: 81-99 HCT 39.0 % (Normal) Range: 37-47 HGB 13.2 g/dL (Normal) Range: 12.0-15.0 RBC 4.17 {M/mm3} (Abnormal) Range: 4.2-5.4 WBC 8.3 K/mm3 (Normal) Range: 4.4-11.0 59-Uga-882631:24 Comprehensive Metabolic Profil Comments: Reason for Laboratory Test .[facility] [address]ucdusvew[address] [facility]. [place], [place], [address] GAP 7 (Normal) Range: 5-15 CO2 19.0 mmol/L (Abnormal) Range: 21.0-32.0 CL 113 mmol/L (Abnormal) Range: 98-107 K 3.6 mmol/L (Normal) Range: 3.5-5.1 NA 139 mmol/L (Normal) Range: 136-145 T BILI 0.30 mg/dL (Normal) Range: 0.20-1.00 ALT 21 U/L (Normal) Range: 12-78 ALK P 53 U/L (Normal) Range: 45-117 AST 19 U/L (Normal) Range: 15-37 CA 8.3 mg/dL (Abnormal) Range: 8.5-10.1 A/G 0.9 {RATIO} (Normal) Range: 0.9-2.4 GLOB 3.8 g/dL (Abnormal) Range: 2.3-3.5 ALB 3.4 g/dL (Normal) Range: 3.4-5.0 T PROT 7.2 g/dL (Normal) Range: 6.4-8.2 BUN/CRE 15.4 {RATIO} (Normal) Range: 10-20 Estimated CRCL 12.96 ml/min (Normal) EST GFR - AA 19 mL/min (Abnormal) Comments: GFR Calc EST GFR 16 mL/min (Abnormal) Comments: Non- GFR Calc CREAT,SERUM 2.99 mg/dL (Abnormal) Range: 0.55-1.02 Comments: The validity of the calculated GFR AND GFRAA in patients over70 years has not been determined. Clinical correlation isessential. BUN 46 mg/dL (Abnormal) Range: 7-18 GLU 77 mg/dL (Normal) Range: 70-110 7-Uld-289839:31 CBC W/Diff, Auto - EPLAB Only Comments: [facility] [address]pefiztnxf[address] [place], [place], [id number] Absolute Lymph 1.22 {X10_3/uL} (Normal) Range: 0.83-4.51 Absolute Neut 3.6 {X10_3/uL} (Normal) Range: 2.0-7.7 BASO% 0.8 % (Normal) Range: 0-1 EO% 6.9 % (Abnormal) Range: 0-5 MONO% 9.9 % (Normal) Range: 0-10 LY% 20.8 % (Normal) Range: 19-41 NEUT% 61.5 % (Normal) Range: 47-70 MPV 6.2 fL (Normal) Range: 6.2-12.0 PLT 210 K/mm3 (Normal) Range: 150-450 RDW 13.9 % (Normal) Range: 11.6-14.6 MCHC 34.4 g/dL (Normal) Range: 32-36 MCH 31.6 pg (Normal) Range: 27.0-32.0 MCV 92.0 fL (Normal) Range: 81-99 HCT 30.8 % (Abnormal) Range: 37-47 HGB 10.6 g/dL (Abnormal) Range: 12.0-15.0 RBC 3.35 {M/mm3} (Abnormal) Range: 4.2-5.4 WBC 5.8 K/mm3 (Normal) Range: 4.4-11.0 4-Zqt-054844:31 Ferritin Comments: [facility] [address]ktfjbz[address], [address] FERRITIN 77 ng/mL (Normal) Range: 8-252 :31 Iron+Iron Binding Capacity Comments: [address] [place], [address] IRON SATURATION 20.8 % (Normal) Range: 15.0-55.0 IRON 61 ug/dL (Normal) Range: 50-170 TIBC 293 ug/dL (Normal) Range: 250-450 :31 Magnesium Comments: [address] [place], [address] MG 1.9 mg/dL (Normal) Range: 1.8-2.4 :31 Microalb:Creat Ratio,Random UR Comments: [address] [place], [address] MALB:CREAT 15.2 {mg/g_CRE} (Normal) MICROALBUMIN,UR 19.0 mg/L (Normal) UR CREAT 125.00 mg/dL (Normal) 3-Qcp-209008:31 PTH,INTACT Comments: [address] [place] [place], [address] PTH,Intact 8 pg/mL (Abnormal) Range: 14-72 0-Wzu-128338:31 Renal Profile Comments: [address] [place], [address] CO2 21.0 mmol/L (Normal) Range: 21.0-32.0 CL 109 mmol/L (Abnormal) Range: 98-107 K 3.7 mmol/L (Normal) Range: 3.5-5.1 NA 140 mmol/L (Normal) Range: 136-145 PHOS 3.2 mg/dL (Normal) Range: 2.5-4.9 CA 9.4 mg/dL (Normal) Range: 8.5-10.1 ALB 3.4 g/dL (Normal) Range: 3.4-5.0 BUN/CRE 15.4 {RATIO} (Normal) Range: 10-20 Estimated CRCL 13.27 ml/min (Normal) EST GFR - AA 20 mL/min (Abnormal) Comments: GFR Calc EST GFR 16 mL/min (Abnormal) Comments: Non- GFR Calc CREAT,SERUM 2.92 mg/dL (Abnormal) Range: 0.55-1.02 Comments: The validity of the calculated GFR AND GFRAA in patients over70 years has not been determined. Clinical correlation isessential. BUN 45 mg/dL (Abnormal) Range: 7-18 GLU 92 mg/dL (Normal) Range: 70-110 :31 Vitamin D,25 Hydroxy Comments: [facility] [address] [place], [place], [id number] Vitamin D 25-OH 33.0 ng/mL (Normal) Comments: Vitamin D 25(OH) Status Range Deficiency <20 ng/mL (50nmol/L) Insuffciency 20 - 30 ng/mL (50 - 75 nmol/L) Sufficiency 30 - 100 ng/mL (75 - 250 nmol/L) Toxicity >100 ng/mL (>250 nmol/L) :30 Prothrombin Time w/INR Comments: Reason for Laboratory Test .[facility] [address] [place], [place], [id number] INR 3.0 (Normal) PROTIME 30.0 s (Abnormal) Range: 11.7-14.9 :19 Basic Metabolic Profile (BMP) Comments: [facility] [address] [place], [place], [id number] GAP 6 (Normal) Range: 5-15 CO2 23.0 mmol/L (Normal) Range: 21.0-32.0 CL 110 mmol/L (Abnormal) Range: 98-107 K 3.8 mmol/L (Normal) Range: 3.5-5.1 NA 139 mmol/L (Normal) Range: 136-145 CA 9.0 mg/dL (Normal) Range: 8.5-10.1 BUN/CRE 18.0 {RATIO} (Normal) Range: 10-20 Estimated CRCL 15.14 ml/min (Normal) EST GFR - AA 23 mL/min (Abnormal) Comments: GFR Calc EST GFR 19 mL/min (Abnormal) Comments: Non- GFR Calc CREAT,SERUM 2.56 mg/dL (Abnormal) Range: 0.55-1.02 Comments: The validity of the calculated GFR AND GFRAA in patients over70 years has not been determined. Clinical correlation isessential. BUN 46 mg/dL (Abnormal) Range: 7-18 GLU 101 mg/dL (Normal) Range: 70-110 4-Zmz-959141:17 Prothrombin Time w/INR Comments: Reason for Laboratory Test .[facility] [address] [place], [address] INR 2.3 (Normal) PROTIME 24.3 s (Abnormal) Range: 11.7-14.9 41-[id number] Prothrombin Time w/INR Comments: Send Results To: .Reason for Laboratory Test .[facility] [id number] [place], [address] INR 2.0 (Normal) PROTIME 21.7 s (Abnormal) Range: 11.7-14.9 [id number] Prothrombin Time w/INR Comments: Reason for Laboratory Test [place] [address] [place], [address] INR 1.6 (Normal) PROTIME 18.7 s (Abnormal) Range: 11.7-14.9 [id number] CBC W/Diff, Automated Comments: [address] [place], [place], [phone] Absolute Lymph 1.22 {X10_3/ul} (Normal) Range: 0.83-4.51 Absolute Neut 4.2 {X10_3/uL} (Normal) Range: 2.0-7.7 IM GRAN % 0.300 % (Normal) Range: 0.0-0.9 Comments: IG% - Immature Granulocytes (promyelocytes, myelocytes andmetamyelocytes) > 1% indicates that a LEFT SHIFT is Present. BASO% 0.3 % (Normal) Range: 0-1 EO% 3.1 % (Normal) Range: 0-5 MONO% 10.2 % (Abnormal) Range: 0-10 LY% 19.2 % (Normal) Range: 19-41 NEUT% 66.9 % (Normal) Range: 47-70 MPV 10.6 fL (Normal) Range: 6.2-12.0 PLT 221 K/mm3 (Normal) Range: 150-450 RDW SD 48.4 fL (Abnormal) Range: 35.1-43.9 RDW CV 14.9 % (Abnormal) Range: 11.6-14.6 MCHC 31.4 {g/gl} (Abnormal) Range: 32-36 MCH 28.3 pg (Normal) Range: 27.0-32.0 MCV 90.0 fL (Normal) Range: 81-99 HCT 31.5 % (Abnormal) Range: 37-47 HGB 9.9 g/dL (Abnormal) Range: 12.0-15.0 RBC 3.50 {M/mm3} (Abnormal) Range: 4.2-5.4 WBC 6.4 K/mm3 (Normal) Range: 4.4-11.0 [id number] Comprehensive Metabolic Profil Comments: Order Date: 10/25/16Order Info: [id number] - *[facility] [id number] [place], [address] GAP 6 (Normal) Range: 5-15 CO2 23.0 mmol/L (Normal) Range: 21.0-32.0 CL 108 mmol/L (Abnormal) Range: 98-107 K 4.4 mmol/L (Normal) Range: 3.5-5.1 Comments: Slight Hemolysis, Result may be falsely increased. NA 137 mmol/L (Normal) Range: 136-145 T BILI 0.40 mg/dL (Normal) Range: 0.20-1.00 ALT 20 U/L (Normal) Range: 12-78 ALK P 49 U/L (Normal) Range: 45-117 AST 16 U/L (Normal) Range: 15-37 Comments: Slight Hemolysis, Result may be falsely increased. CA 8.9 mg/dL (Normal) Range: 8.5-10.1 A/G 0.9 {RATIO} (Normal) Range: 0.9-2.4 GLOB 3.7 g/dL (Abnormal) Range: 2.3-3.5 ALB 3.5 g/dL (Normal) Range: 3.4-5.0 T PROT 7.2 g/dL (Normal) Range: 6.4-8.2 BUN/CRE 21.6 {RATIO} (Abnormal) Range: 10-20 Estimated CRCL 16.70 ml/min (Normal) EST GFR - AA 26 mL/min (Abnormal) Comments: GFR Calc EST GFR 22 mL/min (Abnormal) Comments: Non- GFR Calc CREAT,SERUM 2.32 mg/dL (Abnormal) Range: 0.55-1.02 Comments: The validity of the calculated GFR AND GFRAA in patients over70 years has not been determined. Clinical correlation isessential. BUN 50 mg/dL (Abnormal) Range: 7-18 GLU 83 mg/dL (Normal) Range: 70-110 03-Iji-578962:01 Prothrombin Time w/INR Comments: Order Date: 10/25/16Order Info: 6301-6 - *Prothrombin Time (PT)[facility] [address] [place], [place], [id number] INR 1.4 (Normal) PROTIME 16.8 s (Abnormal) Range: 11.7-14.9 2-Pmv-164776:44 Prothrombin Time w/INR Comments: [facility] [address] [place], [place], [address] INR 1.8 (Normal) PROTIME 20.4 s (Abnormal) Range: 11.7-14.9 01-Wiq-792028:35 Prothrombin Time w/INR Comments: Reason for Laboratory Test ROUTINE CHECKReason for Laboratory Test ROUTINE CHECKReason for Laboratory Test ROUTINE CHECKWProMedica Fostoria [facility] [address] [place], [place], [address] INR 1.9 (Normal) PROTIME 21.4 s (Abnormal) Range: 11.7-14.9 05-Vng-435723:52 C-REACTIVE PROTEIN (27232) Comments: PATIENT NOT FASTINGPERFORMED BY: LabCoHoly Name Medical CenterNjafcb9019 [facility] [id number] C-Reactive Protein, Quant 2.2 mg/L (Normal) Range: 0.0-4.9 91-Qer-679663:52 SED RATE ERYTHROCYTE (83548) Comments: PATIENT NOT FASTINGPERFORMED BY: [facility]CoHoly Name Medical CenterItlldu4942 [facility] [id number] Sedimentation Rate-Westergren 51 mm/h (Abnormal) Range: 0-40 83-Qug-642636:52 CBC W/AUTO DIFF WBC (81788) Comments: PATIENT NOT FASTINGPERFORMED BY: LabCoHoly Name Medical CenterOlstxo3746 [facility] [id number] Immature Grans (Abs) 0.0 {x10E3/uL} (Normal) Range: 0.0-0.1 Immature Granulocytes 0 % (Normal) Baso (Absolute) 0.0 {x10E3/uL} (Normal) Range: 0.0-0.2 Eos (Absolute) 0.5 {x10E3/uL} (Abnormal) Range: 0.0-0.4 Monocytes(Absolute) 0.5 {x10E3/uL} (Normal) Range: 0.1-0.9 Lymphs (Absolute) 1.0 {x10E3/uL} (Normal) Range: 0.7-3.1 Neutrophils (Absolute) 3.3 {x10E3/uL} (Normal) Range: 1.4-7.0 Basos 0 % (Normal) Eos 9 % (Normal) Monocytes 10 % (Normal) Lymphs 19 % (Normal) Neutrophils 62 % (Normal) Platelets 298 {x10E3/uL} (Normal) Range: 150-379 RDW 14.8 % (Normal) Range: 12.3-15.4 MCHC 32.6 g/dL (Normal) Range: 31.5-35.7 MCH 28.3 pg (Normal) Range: 26.6-33.0 MCV 87 fL (Normal) Range: 79-97 Hematocrit 31.3 % (Abnormal) Range: 34.0-46.6 Hemoglobin 10.2 g/dL (Abnormal) Range: 11.1-15.9 RBC 3.60 {x10E6/uL} (Abnormal) Range: 3.77-5.28 WBC 5.4 {x10E3/uL} (Normal) Range: 3.4-10.8 0-Jad-300410:30 Prothrombin Time w/INR Comments: Reason for Laboratory Test MONITORINGReason for Laboratory Test MONITORINGReason for Laboratory Test MONITORINGWProMedica Fostoria Community Hospital [address] [place], [place], [id number] INR 1.9 (Normal) PROTIME 21.4 s (Abnormal) Range: 11.7-14.9 6-Two-851681:22 CBC W/Diff, Auto - Comments: GETS CBCD,CRP,CMP,SED RATE,TSH,B12,VITDDR.RHEA GETS CBCD,PROCRER,PTH,VITD,MG,RENALDR.NICHELLE GETS CBCD,CRP,CMP,SED RATE,TSH,B12,VITDDR.RHEA GETS CBCD,PROCRER,PTH,VITD,MG,RENALAt [facility] Outpatient Ce EPLAB Only nter [facility] Medical Oncologypatients receive CBC w/auto Differential ONLY. Physicianotf place an order for a manual differential or Pathologistreview at his discretion. [facility]. [address] [address] [place] [address] RECORDING STUDIO SET UP WORKER: OMERO ZAMUDIO DO PH:[phone] County Hospital [address] [place], [place], [address] Absolute Lymph 0.99 {X10_3/uL} (Normal) Range: 0.83-4.51 Absolute Neut 3.9 {X10_3/uL} (Normal) Range: 2.0-7.7 BASO% 0.7 % (Normal) Range: 0-1 EO% 9.2 % (Abnormal) Range: 0-5 MONO% 9.7 % (Normal) Range: 0-10 LY% 16.2 % (Abnormal) Range: 19-41 NEUT% 64.2 % (Normal) Range: 47-70 MPV 5.7 fL (Abnormal) Range: 6.2-12.0 PLT 262 K/mm3 (Normal) Range: 150-450 RDW 13.2 % (Normal) Range: 11.6-14.6 MCHC 33.4 g/dL (Normal) Range: 32-36 MCH 29.7 pg (Normal) Range: 27.0-32.0 MCV 89.0 fL (Normal) Range: 81-99 HCT 30.3 % (Abnormal) Range: 37-47 HGB 10.1 g/dL (Abnormal) Range: 12.0-15.0 RBC 3.41 {M/mm3} (Abnormal) Range: 4.2-5.4 WBC 6.1 K/mm3 (Normal) Range: 4.4-11.0 0-Zbs-330982:22 Comprehensive Metabolic Comments: GETS CBCD,CRP,CMP,SED RATE,TSH,B12,VITDDR.WILKERSON GETS CBCD,PROCRER,PTH,VITD,MG,RENALWProMedica Fostoria [facility] Hospital [address] [place], [place], [address] Profil GAP 9 (Normal) Range: 5-15 CO2 23.0 mmol/L (Normal) Range: 21.0-32.0 CL 104 mmol/L (Normal) Range: 98-107 K 3.8 mmol/L (Normal) Range: 3.5-5.1 NA 136 mmol/L (Normal) Range: 136-145 T BILI 0.30 mg/dL (Normal) Range: 0.20-1.00 ALT 14 U/L (Normal) Range: 12-78 ALK P 68 U/L (Normal) Range: 45-117 AST 14 U/L (Abnormal) Range: 15-37 CA 8.8 mg/dL (Normal) Range: 8.5-10.1 A/G 0.7 {RATIO} (Abnormal) Range: 0.9-2.4 GLOB 4.3 g/dL (Abnormal) Range: 2.3-3.5 ALB 3.2 g/dL (Abnormal) Range: 3.4-5.0 T PROT 7.5 g/dL (Normal) Range: 6.4-8.2 BUN/CRE 12.9 {RATIO} (Normal) Range: 10-20 EST GFR - AA 23 mL/min (Abnormal) Comments: GFR Calc EST GFR 19 mL/min (Abnormal) Comments: Non- GFR Calc CREAT,SERUM 2.55 mg/dL (Abnormal) Range: 0.55-1.02 Comments: The validity of the calculated GFR AND GFRAA in patients over70 years has not been determined. Clinical correlation isessential. BUN 33 mg/dL (Abnormal) Range: 7-18 GLU 87 mg/dL (Normal) Range: 70-110 7-Whr-327500:22 CRP Comments: GETS CBCD,CRP,CMP,SED RATE,TSH,B12,VITDDR.RHEA GETS CBCD,PROCRER,PTH,VITD,MG,[facility] [address] [place], [address] C-REACTIVE PROT 10.40 mg/L (Abnormal) Range: 0.0-3.0 Comments: C-Reactive Protein (CRP) provides useful information for thediagnosis, therapy and monitoring of inflammatory processesand associated diseases. For the evaluation of Relative Riskfor Cardiovascular Dise ase, a High Sensitivity CRP (HSCRP)should be ordered. 7-Pti-147022:22 Erythrocyte Sed Rate Comments: GETS CBCD,CRP,CMP,SED RATE,TSH,B12,VITDDR.RHEA GETS CBCD,PROCRER,PTH,VITD,MG,[facility] [address] [place], [address] SED RATE 91 mm/h (Abnormal) Range: 0-30 3-Bjl-828180:22 Magnesium Comments: GETS CBCD,CRP,CMP,SED RATE,TSH,B12,VITDDR.RHEA GETS CBCD,PROCRER,PTH,VITD,MG,[facility] [address] [place], [address] MG 1.9 mg/dL (Normal) Range: 1.8-2.4 4-Oaz-438700:22 Phosphorus Comments: GETS CBCD,CRP,CMP,SED RATE,TSH,B12,VITDDR.RHEA GETS CBCD,PROCRER,PTH,VITD,MG,[facility] [address] [place], [address] PHOS 3.5 mg/dL (Normal) Range: 2.5-4.9 1-Fkr-016657:22 Protein+Creatinine Comments: GETS CBCD,CRP,CMP,SED RATE,TSH,B12,VITDDR.RHEA GETS CBCD,PROCRER,PTH,VITD,MG,[facility] [address] [place], [address] Ratio,Urine PROT:CRE RATIO 383 {mg/g_CRE} (Abnormal) Range: 0-200 PROTEIN,UR.RAN. 61.3 mg/dL (Abnormal) UR CREAT 160.00 mg/dL (Normal) 2-Sxz-789040:22 PTH,INTACT Comments: GETS CBCD,CRP,CMP,SED RATE,TSH,B12,VITDDR.RHEA GETS CBCD,PROCRER,PTH,VITD,MG,[facility] [address] [place], [address] PTH,Intact 25 pg/mL (Normal) Range: 14-72 0-Zbd-656708:22 Thyroid Stim Hormone Comments: GETS CBCD,CRP,CMP,SED RATE,TSH,B12,VITDDR.RHEA GETS CBCD,PROCRER,PTH,VITD,MG,[facility] [address] [place], [address] (TSH) TSH 2.60 {uIU/mL} (Normal) Range: 0.358-3.74 5-Nwy-385937:22 Vitamin B12 1286 pg/mL (Abnormal) Comments: GETS CBCD,CRP,CMP,SED RATE,TSH,B12,VITDDR.RHEA GETS CBCD,PROCRER,PTH,VITD,MG,[facility] [address] [place], [address] Range: 211-911 1-Dba-697843:22 Vitamin D,25 Hydroxy Comments: GETS CBCD,CRP,CMP,SED RATE,TSH,B12,VITDDR.RHEA GETS CBCD,PROCRER,PTH,VITD,MG,[facility] [address] [place], [address] Vitamin D 25-OH 45.2 ng/mL (Normal) Comments: Vitamin D 25(OH) Status Range Deficiency <20 ng/mL (50nmol/L) Insuffciency 20 - 30 ng/mL (50 - 75 nmol/L) Sufficiency 30 - 100 ng/mL (75 - 250 nmol/L) Toxicity >100 ng/mL (>250 nmol/L) 37-Lby-097054:40 Prothrombin Time w/INR Comments: Order Date: 06/20/16Order Info: 6301-6 - *Prothrombin Time (PT)Order Date: 06/20/16Order Info: 6301-6 - *Prothrombin Time (PT)Order Date: 06/20/16Order Info: 6301-6 - *Prothrombin Time (PT)[facility] [address] [place], [place], [address] INR 1.9 (Normal) PROTIME 21.3 s (Abnormal) Range: 11.7-14.9 49-Ujr-502939:48 Prothrombin Time w/INR Comments: Order Date: 10/25/16Order Info: 6301-6 - *Prothrombin Time (PT)Order Date: 10/25/16Order Info: 6301-6 - *Prothrombin Time (PT)Order Date: 10/25/16Order Info: 6301-6 - *Prothrombin Time (PT)[facility] [address] [place], [place], [address] INR 2.1 (Normal) PROTIME 22.5 s (Abnormal) Range: 11.7-14.9 73-Iwi-661224:34 CBC W/Diff, Auto - EPLAB Comments: Order Date: 07/13/16Order Info: 0184-1E - *CBC w/Diff - oncology ONLYOrder Date: 07/13/16Order Info: 0184- 1E - *CBC w/Diff - oncology ONLYAt [facility] Outpatient [facility] Medical Oncologypatients Only receive CBC w/auto Differential ONLY. Physicianwill place an order for a manual differential or Pathologistreview at his discretion. [facility]. [address] [address] [place] [address] RECORDING STUDIO SET UP WORKER: OMERO ZAMUDIO DO PH:[phone] Date: 07/13/16Order Info: 0786-1 - *CMP Complete Metabolic PanelWProMedica Fostoria Community Hospital [address] [place], [address] Absolute Lymph 1.04 {X10_3/uL} (Normal) Range: 0.83-4.51 Absolute Neut 3.5 {X10_3/uL} (Normal) Range: 2.0-7.7 BASO% 0.9 % (Normal) Range: 0-1 EO% 4.9 % (Normal) Range: 0-5 MONO% 9.2 % (Normal) Range: 0-10 LY% 19.5 % (Normal) Range: 19-41 NEUT% 65.5 % (Normal) Range: 47-70 MPV 6.3 fL (Normal) Range: 6.2-12.0 PLT 236 K/mm3 (Normal) Range: 150-450 RDW 14.5 % (Normal) Range: 11.6-14.6 MCHC 33.2 g/dL (Normal) Range: 32-36 MCH 30.4 pg (Normal) Range: 27.0-32.0 MCV 91.8 fL (Normal) Range: 81-99 HCT 31.0 % (Abnormal) Range: 37-47 HGB 10.3 g/dL (Abnormal) Range: 12.0-15.0 RBC 3.38 {M/mm3} (Abnormal) Range: 4.2-5.4 WBC 5.3 K/mm3 (Normal) Range: 4.4-11.0 88-Lpx-373836:34 Comprehensive Metabolic Profil Comments: Order Date: 07/13/16Order Info: 0786-1 - *CMP Complete Metabolic PanelFER, IRON, IBC ADDED PER FAXED ORDEROrder Date: 07/13/16Order Info: 0786-1 - *CMP Complete Metabolic PanelWZanesville City Hospital [address] [place], [place], [address] GAP 6 (Normal) Range: 5-15 CO2 24.0 mmol/L (Normal) Range: 21.0-32.0 CL 106 mmol/L (Normal) Range: 98-107 K 3.6 mmol/L (Normal) Range: 3.5-5.1 NA 136 mmol/L (Normal) Range: 136-145 T BILI 0.40 mg/dL (Normal) Range: 0.20-1.00 ALT 17 U/L (Normal) Range: 12-78 ALK P 57 U/L (Normal) Range: 45-117 AST 14 U/L (Abnormal) Range: 15-37 CA 9.1 mg/dL (Normal) Range: 8.5-10.1 A/G 0.9 {RATIO} (Normal) Range: 0.9-2.4 GLOB 3.8 g/dL (Abnormal) Range: 2.3-3.5 ALB 3.4 g/dL (Normal) Range: 3.4-5.0 T PROT 7.2 g/dL (Normal) Range: 6.4-8.2 BUN/CRE 16.0 {RATIO} (Normal) Range: 10-20 EST GFR - AA 25 mL/min (Abnormal) Comments: GFR Calc EST GFR 21 mL/min (Abnormal) Comments: Non- GFR Calc CREAT,SERUM 2.38 mg/dL (Abnormal) Range: 0.55-1.02 Comments: The validity of the calculated GFR AND GFRAA in patients over70 years has not been determined. Clinical correlation isessential. BUN 38 mg/dL (Abnormal) Range: 7-18 GLU 119 mg/dL (Abnormal) Range: 70-110 Comments: Fasting Glucose result from 110 to <126 mg/dLsuggests IMPAIRED HOMEOSTASIS per A.D.A. criteria. 91-Mos-330519:34 Ferritin Comments: Order Date: 07/13/16Order Info: 0786-1 - *CMP Complete Metabolic PanelFER, IRON, IBC ADDED PER FAXED ORDEROrder Date: 07/13/16Order Info: 0786-1 - *CMP Complete Metabolic PanelWZanesville City Hospital [address] [place], [address] FERRITIN 134 ng/mL (Normal) Range: 8-252 55-Owc-925134:34 Iron+Iron Binding Capacity Comments: Order Date: 07/13/16Order Info: 0786-1 - *CMP Complete Metabolic PanelFER, IRON, IBC ADDED PER FAXED ORDEROrder Date: 07/13/16Order Info: 0786-1 - *CMP Complete Metabolic PanelWZanesville City Hospital [address], [address] IRON SATURATION 21.6 % (Normal) Range: 15.0-55.0 IRON 60 ug/dL (Normal) Range: 50-170 TIBC 278 ug/dL (Normal) Range: 250-450 88-Hde-214233:34 Prothrombin Time w/INR Comments: Order Date: 09/27/16Order Info: 6301-6 - *Prothrombin Time (PT)Order Date: 09/27/16Order Info: 6301-6 - *Prothrombin Time (PT)Order Date: 07/13/16Order Info: 0786-1 - *CMP Complete Metabolic PanelWoos [facility] [address] [place], [id number] INR 1.8 (Normal) PROTIME 20.0 s (Abnormal) Range: 11.7-14.9 92-Tgr-395983:15 Prothrombin Time w/INR Comments: Order Date: 09/13/16Order Info: 6301-6 - *Prothrombin Time (PT)Comments: PT/INROrder Date: 09/13/16Order Info: 6301-6 - *Prothrombin Time (PT)Comments: PT/INROrder Date: 09/13/16Order Info: 6301-6 - * Prothrombin Time (PT)Comments: PT/INRWProMedica Fostoria Community Hospital [address] [place], [address] INR 2.0 (Normal) PROTIME 21.9 s (Abnormal) Range: 11.7-14.9 71-Fup-168744:23 Protein+Creatinine Ratio,Urine Comments: [facility] [address] [place], [id number] PROT:CRE RATIO 426 {mg/g_CRE} (Abnormal) Range: 0-200 PROTEIN,UR.RAN. 77.6 mg/dL (Abnormal) UR CREAT 182.00 mg/dL (Normal) 17-Tsh-255161:20 Magnesium Comments: [facility] [address] [place], [address] MG 1.8 mg/dL (Normal) Range: 1.8-2.4 94-Fnj-203149:20 PTH,INTACT Comments: [facility] [address] [place], [address] PTH,Intact 112 pg/mL (Abnormal) Range: 14-72 09-Kvt-562734:20 Renal Profile Comments: [facility] [address] [place], [address] CO2 20.0 mmol/L (Abnormal) Range: 21.0-32.0 CL 111 mmol/L (Abnormal) Range: 98-107 K 3.3 mmol/L (Abnormal) Range: 3.5-5.1 NA 143 mmol/L (Normal) Range: 136-145 PHOS 3.4 mg/dL (Normal) Range: 2.5-4.9 CA 8.0 mg/dL (Abnormal) Range: 8.5-10.1 ALB 3.4 g/dL (Normal) Range: 3.4-5.0 BUN/CRE 13.6 {RATIO} (Normal) Range: 10-20 EST GFR - AA 25 mL/min (Abnormal) Comments: GFR Calc EST GFR 21 mL/min (Abnormal) Comments: Non- GFR Calc CREAT,SERUM 2.42 mg/dL (Abnormal) Range: 0.55-1.02 Comments: The validity of the calculated GFR AND GFRAA in patients over70 years has not been determined. Clinical correlation isessential. BUN 33 mg/dL (Abnormal) Range: 7-18 GLU 75 mg/dL (Normal) Range: 70-110 24-Qrb-536718:20 Vitamin D,25 Hydroxy Comments: [facility] [address] [place], [address] Vitamin D 25-OH 64.2 ng/mL (Normal) Comments: Vitamin D 25(OH) Status Range Deficiency <20 ng/mL (50nmol/L) Insuffciency 20 - 30 ng/mL (50 - 75 nmol/L) Sufficiency 30 - 100 ng/mL (75 - 250 nmol/L) Toxicity >100 ng/mL (>250 nmol/L) 41-Ctl-230365:11 Prothrombin Time w/INR Comments: Order Date: 08/30/16Order Info: 6301-6 - *Prothrombin Time (PT)Comments: PT/INROrder Date: 08/30/16Order Info: 6301-6 - *Prothrombin Time (PT)Comments: PT/INROrder Date: 08/30/16Order Info: 6301-6 - * Prothrombin Time (PT)Comments: PT/[facility]RWood [facility] [address], [address] INR 2.0 (Normal) PROTIME 22.0 s (Abnormal) Range: 11.7-14.9 8-Gya-856588:04 Prothrombin Time w/INR Comments: Order Date: 08/30/16Order Info: 6301-6 - *Prothrombin Time (PT)Comments: PT/INROrder Date: 08/30/16Order Info: 6301-6 - *Prothrombin Time (PT)Comments: PT/INROrder Date: 08/30/16Order Info: 6301-6 - * Prothrombin Time (PT)Comments: PT/[facility] [address] [place], [address] INR 2.7 (Normal) PROTIME 27.5 s (Abnormal) Range: 11.7-14.9 63-Dlc-014711:14 Prothrombin Time w/INR Comments: Order Date: 08/16/16Order Info: 6301-6 - *Prothrombin Time (PT)Order Date: 08/16/16Order Info: 6301-6 - *Prothrombin Time (PT)Order Date: 08/16/16Order Info: 6301-6 - *Prothrombin Time (PT)[facility] [address], [address] INR 3.7 (Abnormal) Comments: CRITICAL VALUE REPEATED AND VERIFIED. CALLED TO RAUL AWOOSANGITA [facility] KUKAWXCI12/31/17 [address]RESULTS READ BACK BY SAME . PROTIME 35.5 s (Abnormal) Range: 11.7-14.9 93-Xto-995202:29 Prothrombin Time w/INR Comments: Order Date: 08/10/16Order Info: 6301-6 - *Prothrombin Time (PT)Comments: PT/INROrder Date: 08/10/16Order Info: 6301-6 - *Prothrombin Time (PT)Comments: PT/INROrder Date: 08/10/16Order Info: 6301-6 - * Prothrombin Time (PT)Comments: [facility]RWood [facility] [address], [address] INR 2.4 (Normal) PROTIME 25.5 s (Abnormal) Range: 11.7-14.9 13-Fdk-444835:12 Prothrombin Time w/INR Comments: Order Date: 08/02/16Order Info: 6301-6 - *Prothrombin Time (PT)Order Date: 08/02/16Order Info: 6301-6 - *Prothrombin Time (PT)Order Date: 08/02/16Order Info: 6301-6 - *Prothrombin Time (PT)[facility] [address], [address] INR 2.3 (Normal) PROTIME 24.3 s (Abnormal) Range: 11.7-14.9 79-Dyp-996293:35 CBC W/Diff, Auto - EPLAB Comments: Order Date: 07/13/16Order Info: 0184-1E - *CBC w/Diff - oncology ONLYOrder Date: 07/13/16Order Info: 0184- 1E - *CBC w/Diff - oncology ONLYAt [facility] Outpatient [facility] Medical Oncologypatients Only receive CBC w/auto Differential ONLY. Physicianwill place an order for a manual differential or Pathologistreview at his discretion. [facility]. [address] [address] [place] [address] RECORDING STUDIO SET UP WORKER: OMERO ZAMUDIO DO PH:[phone] Date: 07/13/16Order Info: 0786-1 - *CMP Complete Metabolic PanelWProMedica Fostoria Community Hospital [address] [place], [place], [id number] Absolute Lymph 1.16 {X10_3/uL} (Normal) Range: 0.83-4.51 Absolute Neut 4.6 {X10_3/uL} (Normal) Range: 2.0-7.7 BASO% 0.6 % (Normal) Range: 0-1 EO% 2.9 % (Normal) Range: 0-5 MONO% 7.8 % (Normal) Range: 0-10 LY% 18.0 % (Abnormal) Range: 19-41 NEUT% 70.8 % (Abnormal) Range: 47-70 MPV 6.2 fL (Normal) Range: 6.2-12.0 PLT 217 K/mm3 (Normal) Range: 150-450 RDW 13.4 % (Normal) Range: 11.6-14.6 MCHC 32.2 g/dL (Normal) Range: 32-36 MCH 29.9 pg (Normal) Range: 27.0-32.0 MCV 92.7 fL (Normal) Range: 81-99 HCT 31.1 % (Abnormal) Range: 37-47 HGB 10.0 g/dL (Abnormal) Range: 12.0-15.0 RBC 3.35 {M/mm3} (Abnormal) Range: 4.2-5.4 WBC 6.5 K/mm3 (Normal) Range: 4.4-11.0 83-Auu-632198:35 Comprehensive Metabolic Profil Comments: Order Date: 07/13/16Order Info: 0786-1 - *CMP Complete Metabolic PanelOrder Date: 07/13/16Order Info: 0786-1 - *CMP Complete Metabolic PanelWProMedica Fostoria [facility] Hospital [address] [place], [address] GAP 9 (Normal) Range: 5-15 CO2 21.0 mmol/L (Normal) Range: 21.0-32.0 CL 105 mmol/L (Normal) Range: 98-107 K 3.8 mmol/L (Normal) Range: 3.5-5.1 NA 135 mmol/L (Abnormal) Range: 136-145 T BILI 0.30 mg/dL (Normal) Range: 0.20-1.00 ALT 16 U/L (Normal) Range: 12-78 ALK P 59 U/L (Normal) Range: 45-117 AST 14 U/L (Abnormal) Range: 15-37 CA 8.3 mg/dL (Abnormal) Range: 8.5-10.1 A/G 1.0 {RATIO} (Normal) Range: 0.9-2.4 GLOB 3.5 g/dL (Normal) Range: 2.3-3.5 ALB 3.4 g/dL (Normal) Range: 3.4-5.0 T PROT 6.9 g/dL (Normal) Range: 6.4-8.2 BUN/CRE 11.7 {RATIO} (Normal) Range: 10-20 EST GFR - AA 22 mL/min (Abnormal) Comments: GFR Calc EST GFR 18 mL/min (Abnormal) Comments: Non- GFR Calc CREAT,SERUM 2.66 mg/dL (Abnormal) Range: 0.55-1.02 Comments: The validity of the calculated GFR AND GFRAA in patients over70 years has not been determined. Clinical correlation isessential. BUN 31 mg/dL (Abnormal) Range: 7-18 GLU 78 mg/dL (Normal) Range: 70-110 19-Psd-763434:35 Prothrombin Time w/INR Comments: Order Date: 07/13/16Order Info: 6301-6 - *PT/INROrder Date: 07/13/16Order Info: 6301-6 - *PT/INROrder Date: 07/13/16Order Info: 0786-1 - *CMP Complete Metabolic PanelWProMedica Fostoria [facility] Hospital [address] [place], [place], [phone]) INR 2.1 (Normal) PROTIME 22.8 s (Abnormal) Range: 11.7-14.9 14-Ovb-764608:21 Ferritin Comments: [facility] [address] [place], [place], [phone]) FERRITIN 196 ng/mL (Normal) Range: 8-252 97-Ikq-585899:21 Iron+Iron Binding Capacity Comments: [facility] [address] [place], [place], [phone] IRON SATURATION 18.8 % (Normal) Range: 15.0-55.0 IRON 48 ug/dL (Abnormal) Range: 50-170 TIBC 256 ug/dL (Normal) Range: 250-450 53-Bbg-188127:48 CBC, PLATELETS & AUT DIFF Comments: Send to Je Parra; PATIENT NOT FASTINGPERFORMED BY: [facility] [address] [place] [id number] ([id number]) Immature Grans (Abs) 0.0 {x10E3/uL} (Normal) Range: 0.0-0.1 Immature Granulocytes 0 % (Normal) Baso (Absolute) 0.0 {x10E3/uL} (Normal) Range: 0.0-0.2 Eos (Absolute) 0.2 {x10E3/uL} (Normal) Range: 0.0-0.4 Monocytes(Absolute) 0.5 {x10E3/uL} (Normal) Range: 0.1-0.9 Lymphs (Absolute) 1.2 {x10E3/uL} (Normal) Range: 0.7-3.1 Neutrophils (Absolute) 4.5 {x10E3/uL} (Normal) Range: 1.4-7.0 Basos 0 % (Normal) Eos 3 % (Normal) Monocytes 7 % (Normal) Lymphs 19 % (Normal) Neutrophils 71 % (Normal) Platelets 303 {x10E3/uL} (Normal) Range: 150-379 RDW 14.4 % (Normal) Range: 12.3-15.4 MCHC 32.2 g/dL (Normal) Range: 31.5-35.7 MCH 29.0 pg (Normal) Range: 26.6-33.0 MCV 90 fL (Normal) Range: 79-97 Hematocrit 33.5 % (Abnormal) Range: 34.0-46.6 Hemoglobin 10.8 g/dL (Abnormal) Range: 11.1-15.9 RBC 3.72 {x10E6/uL} (Abnormal) Range: 3.77-5.28 WBC 6.4 {x10E3/uL} (Normal) Range: 3.4-10.8 90-Kgm-693153:48 METABOLIC PANEL, COMPREHENSIVE Comments: Send to Je Parra; PATIENT NOT FASTINGPERFORMED BY: [facility] [id number] ([id number]) ALT (SGPT) 7 [iU]/L (Normal) Range: 0-32 AST (SGOT) 14 [iU]/L (Normal) Range: 0-40 Alkaline Phosphatase, S 74 [iU]/L (Normal) Range: 39-117 Bilirubin, Total <0.2 mg/dL (Normal) Range: 0.0-1.2 A/G Ratio 1.7 (Normal) Range: 1.1-2.5 Globulin, Total 2.6 g/dL (Normal) Range: 1.5-4.5 Albumin, Serum 4.3 g/dL (Normal) Range: 3.5-4.8 Protein, Total, Serum 6.9 g/dL (Normal) Range: 6.0-8.5 Calcium, Serum 9.2 mg/dL (Normal) Range: 8.7-10.3 Carbon Dioxide, Total 15 mmol/L (Abnormal) Range: 18-29 Comments: Verified by repeat analysis Chloride, Serum 98 mmol/L (Normal) Range: 96-106 Comments: Please note reference interval change Potassium, Serum 4.3 mmol/L (Normal) Range: 3.5-5.2 Sodium, Serum 134 mmol/L (Normal) Range: 134-144 Comments: Please note reference interval change BUN/Creatinine Ratio 15 (Normal) Range: 11-26 eGFR If Africn Am 18 mL/min/1.73 (Abnormal) eGFR If NonAfricn Am 16 mL/min/1.73 (Abnormal) Creatinine, Serum 2.79 mg/dL (Abnormal) Range: 0.57-1.00 BUN 42 mg/dL (Abnormal) Range: 8-27 Glucose, Serum 92 mg/dL (Normal) Range: 65-99 88-Toq-507745:48 PT (Prothrobim Time) ([id number]) Comments: Send to Dorinda Parra; PATIENT NOT FASTINGPERFORMED BY: [facility] CenterTvadoo4571 [facility] [id number] Prothrombin Time 34.0 {sec} (Abnormal) Range: 9.1-12.0 INR 3.4 (Abnormal) Range: 0.8-1.2 Comments: Reference interval is for non-anticoagulated patients. . Suggested INR therapeutic range for Vitamin K anta gonist therapy: Standard Dose (moderate intensity therapeutic range): 2.0 - 3.0 Higher intensity therapeutic range 2.5 - 3.5 12-Yrs-[id number]:37 Basic Metabolic Profile (BMP) Comments: Order Date: 07/12/16Order Info: [id number] - BMPOrder Info: [id number] - IBCOrder Info: [id number] - FEROrder Date: 07/12/16Order Info: [id number] - FERComments: [facility] [place], [place], [address] GAP 8 (Normal) Range: 5-15 CO2 20.0 mmol/L (Abnormal) Range: 21.0-32.0 CL 101 mmol/L (Normal) Range: 98-107 K 4.7 mmol/L (Normal) Range: 3.5-5.1 NA 129 mmol/L (Abnormal) Range: 136-145 CA 9.3 mg/dL (Normal) Range: 8.5-10.1 BUN/CRE 14.2 {RATIO} (Normal) Range: 10-20 EST GFR - AA 16 mL/min (Abnormal) Comments: GFR Calc EST GFR 13 mL/min (Abnormal) Comments: Non- GFR Calc CREAT,SERUM 3.59 mg/dL (Abnormal) Range: 0.55-1.02 Comments: The validity of the calculated GFR AND GFRAA in patients over70 years has not been determined. Clinical correlation isessential. BUN 51 mg/dL (Abnormal) Range: 7-18 GLU 104 mg/dL (Normal) Range: 70-110 62-Dmp-762947:37 CBC W/Diff, Automated Comments: Order Date: 07/12/16Order Info: [id number] - CBCDComments: to Dr. Felix Mohamud Date: 07/12/16Order Info: [id number]- [id number] - CBCDComments: to Dr. Felix Mohamud Date: 07/12/16Order Info: [id number] - FERComments : to Dr. Washington [facility] [address] [place], [place], [id number] Absolute Lymph 1.04 {X10_3/ul} (Normal) Range: 0.83-4.51 Absolute Neut 4.9 {X10_3/uL} (Normal) Range: 2.0-7.7 IM GRAN % 0.300 % (Normal) Range: 0.0-0.9 Comments: IG% - Immature Granulocytes (promyelocytes, myelocytes andmetamyelocytes) > 1% indicates that a LEFT SHIFT is Present. BASO% 0.3 % (Normal) Range: 0-1 EO% 1.7 % (Normal) Range: 0-5 MONO% 7.9 % (Normal) Range: 0-10 LY% 15.9 % (Abnormal) Range: 19-41 NEUT% 73.9 % (Abnormal) Range: 47-70 MPV 10.8 fL (Normal) Range: 6.2-12.0 PLT 357 K/mm3 (Normal) Range: 150-450 RDW SD 46.0 fL (Abnormal) Range: 35.1-43.9 RDW CV 14.0 % (Normal) Range: 11.6-14.6 MCHC 31.9 {g/gl} (Abnormal) Range: 32-36 MCH 29.4 pg (Normal) Range: 27.0-32.0 MCV 92.2 fL (Normal) Range: 81-99 HCT 33.2 % (Abnormal) Range: 37-47 HGB 10.6 g/dL (Abnormal) Range: 12.0-15.0 RBC 3.60 {M/mm3} (Abnormal) Range: 4.2-5.4 WBC 6.6 K/mm3 (Normal) Range: 4.4-11.0 :37 Iron+Iron Binding Capacity Comments: Order Date: 07/12/16Order Info: [id number] - BMPOrder Info: [id number] - IBCOrder Info: [id number] - FEROrder Date: 07/12/16Order Info: [id number] - FERComments: to Dr. Washington [facility] [address] [place], [address] IRON 40 ug/dL (Abnormal) Range: 50-170 IRON SATURATION 12.5 % (Abnormal) Range: 15.0-55.0 TIBC 321 ug/dL (Normal) Range: 250-450 32-Mdf-839685:37 Prothrombin Time w/INR Comments: Order Date: 07/12/16Order Info: [id number] - PTOrder Date: 07/12/16Order Info: [id number] - PTOrder Date: 07/12/16Order Info: [id number] - [facility] [address] [place], [address] INR 2.2 (Normal) PROTIME 24.0 s (Abnormal) Range: 11.7-14.9 26-Nqx-867107:37 FERRITIN (33279) Comments: to Dr. Felix Parra; Order Date: 07/12/16Order Info: [id number] - BMPOrder Info: [id number] - IBCOrder Info: [id number] - FEROrder Date: 07/12/16Order Info: [id number] - FERComments: [facility]. [facility] [address]nt[address] [place], [address] FERRITIN 311 ng/mL (Abnormal) Range: 8-252 66-Fik-481954:50 Urinalysis, Complete Comments: Order Date: 06/17/16Has pt arrived? YOrder Date: 06/17/16Has pt arrived? YHow was Urine Obtained? CASE MANAGERS TO [facility] [address] [place], [address] MUCUS, URINE 0 SEEN {/hpf} (Normal) BACTERIA RARE {/hpf} (Normal) SQUAM EPI 0 SEEN {/hpf} (Normal) Range: 5-10 RBC-UA 0-5 SEEN {/hpf} (Normal) Range: 0-5 WBC 0 SEEN {/hpf} (Normal) Range: 0-5 LEUK ESTERASE Negative /ul (Normal) OCCULT BLOOD-UR 25 /ul (Abnormal) NITRITE UR Negative (Normal) UROBILI Normal mg/dL (Normal) PROT DIPSTX 30 mg/dL (Abnormal) pH UR 6.0 (Normal) Range: 5.0 - 8.0 SP.GR. DIPSTX 1.015 (Normal) Range: 1.002-1.030 KETONE UR Negative mg/dL (Normal) BILIRUBIN URINE Negative mg/dL (Normal) GLUCOSE, UR Normal mg/dL (Normal) CLARITY Sl. Cloudy (Normal) COLOR Yellow (Normal) 61-Tzc-796912:15 Partial Thromboplast Time Comments: REDRAW. PREVIOUS SPECIMEN REJECTED DUE TOCONTAMINATED WITH HEPARIN FROM PORT DRAW. 06/17/16 Essence Reyes.CRITICAL VALUE REPEATED AND VERIFIED. CALLED TO [id number]/18/16 1255 Raul RoqueR ESULTS READ BACK BY SAME .[facility] [address] [place], [address] PTT 71.1 s (Abnormal) Range: 24.1-36.2 75-Gsu-828624:15 Prothrombin Time w/INR Comments: REDRAW. PREVIOUS SPECIMEN REJECTED DUE TOCONTAMINATED WITH HEPARIN FROM PORT DRAW. 06/17/16 Essence Gaonas.CRITICAL VALUE REPEATED AND VERIFIED. CALLED TO [id number]/18/16 1255 Raul Washington ESULTS READ BACK BY SAME .[facility] [address] [place], [address] INR 4.0 (Abnormal) PROTIME 37.5 s (Abnormal) Range: 11.7-14.9 38-Zhl-421254:30 Basic Metabolic Profile (BMP) Comments: [facility] [address], [address] GAP 15 (Normal) Range: 5-15 CO2 17.0 mmol/L (Abnormal) Range: 21.0-32.0 CL 105 mmol/L (Normal) Range: 98-107 K 3.8 mmol/L (Normal) Range: 3.5-5.1 NA 137 mmol/L (Normal) Range: 136-145 CA 8.4 mg/dL (Abnormal) Range: 8.5-10.1 BUN/CRE 14.7 {RATIO} (Normal) Range: 10-20 Estimated CRCL 9.16 ml/min (Normal) EST GFR - AA 13 mL/min (Abnormal) Comments: GFR Calc EST GFR 11 mL/min (Abnormal) Comments: Non- GFR Calc CREAT,SERUM 4.30 mg/dL (Abnormal) Range: 0.55-1.02 Comments: The validity of the calculated GFR AND GFRAA in patients over70 years has not been determined. Clinical correlation isessential. BUN 63 mg/dL (Abnormal) Range: 7-18 GLU 92 mg/dL (Normal) Range: 70-110 67-Evw-278612:30 CBC W/Diff, Automated Comments: [facility] [address], [address] Absolute Lymph 0.82 {X10_3/ul} (Abnormal) Range: 0.83-4.51 Absolute Neut 4.9 {X10_3/uL} (Normal) Range: 2.0-7.7 IM GRAN % 0.300 % (Normal) Range: 0.0-0.9 Comments: IG% - Immature Granulocytes (promyelocytes, myelocytes andmetamyelocytes) > 1% indicates that a LEFT SHIFT is Present. BASO% 0.5 % (Normal) Range: 0-1 EO% 1.6 % (Normal) Range: 0-5 MONO% 6.4 % (Normal) Range: 0-10 LY% 13.1 % (Abnormal) Range: 19-41 NEUT% 78.1 % (Abnormal) Range: 47-70 MPV 8.9 fL (Normal) Range: 6.2-12.0 PLT 267 K/mm3 (Normal) Range: 150-450 RDW SD 45.8 fL (Abnormal) Range: 35.1-43.9 RDW CV 14.3 % (Normal) Range: 11.6-14.6 MCHC 33.0 {g/gl} (Normal) Range: 32-36 MCH 29.2 pg (Normal) Range: 27.0-32.0 MCV 88.3 fL (Normal) Range: 81-99 HCT 31.8 % (Abnormal) Range: 37-47 HGB 10.5 g/dL (Abnormal) Range: 12.0-15.0 RBC 3.60 {M/mm3} (Abnormal) Range: 4.2-5.4 WBC 6.3 K/mm3 (Normal) Range: 4.4-11.0 49-Ghn-923411:29 URINE ANURAG CULTURE-IDENTIFICATN Comments: PATIENT NOT FASTINGPERFORMED BY: [facility]6[address] [facility] [id number] Information: SRC: ([id number]) Result 1 Lactobacillus species Comments: 50,000-100,000 colony forming units per mLSusceptibility not normally performed on this organism. (Normal) Urine Final report (Normal) Culture,Comprehensive 65-Mfx-385621:02 Urinalysis, Office ([id number]) UA - LEUKOCYTE ESTERASE Large (Normal) UA - NITRITE Negative (Normal) URINE UROBILINGN TYSON TIMED 2 mg/dL (Normal) UA - PROTEIN 100 mg/dL (Normal) UA - PH 6.0 (Normal) UA - BLOOD Hemolyzed Trace (Normal) UA - SPECIFIC GRAVITY 1.025 (Normal) UA - KETONES Negative mg/dL (Normal) UA - BILIRUBIN Negative (Normal) UA - GLUCOSE Negative (Normal) 55-Qqz-152308:24 Prothrombin Time w/INR Comments: CRITICAL VALUE REPEATED AND VERIFIED. CALLED TO 06/16/16 1438 Raul Watts.RESULTS READ BACK BY MARTA .[facility] [address] [place], [place], [id number] INR 3.8 (Abnormal) Comments: CRITICAL VALUE REPEATED AND VERIFIED. CALLED TO06/16/16 1438 Raul Watts.RESULTS READ BACK BY . PROTIME 36.1 s (Abnormal) Range: 11.7-14.9 6-Aln-866874:17 Prothrombin Time w/INR Comments: [facility] [address] [place], [place], [id number] INR 2.1 (Normal) PROTIME 23.1 s (Abnormal) Range: 11.7-14.9 6-Ody-341882:16 CBC W/Diff, Auto - EPLAB Comments: SPECIMEN OBTAINED FROM LINE DRAWAt [facility] Medical Oncologypatients receive CBC w/auto Differential ONLY. Physicianwill place an order for a manual differential or Pathologis Only treview at his discretion. [facility]. [address] [address] [place] [address] RECORDING STUDIO SET UP WORKER: OMERO ZAMUDIO DO PH:[phone] Health [address] [place], [place], [phone] Absolute Lymph 1.13 {X10_3/uL} (Normal) Range: 0.83-4.51 Absolute Neut 3.2 {X10_3/uL} (Normal) Range: 2.0-7.7 BASO% 0.6 % (Normal) Range: 0-1 EO% 5.2 % (Abnormal) Range: 0-5 MONO% 7.6 % (Normal) Range: 0-10 LY% 22.5 % (Normal) Range: 19-41 NEUT% 64.1 % (Normal) Range: 47-70 MPV 5.5 fL (Abnormal) Range: 6.2-12.0 PLT 201 K/mm3 (Normal) Range: 150-450 RDW 13.9 % (Normal) Range: 11.6-14.6 MCHC 31.9 g/dL (Abnormal) Range: 32-36 MCH 30.6 pg (Normal) Range: 27.0-32.0 MCV 96.0 fL (Normal) Range: 81-99 HCT 30.4 % (Abnormal) Range: 37-47 HGB 9.7 g/dL (Abnormal) Range: 12.0-15.0 RBC 3.17 {M/mm3} (Abnormal) Range: 4.2-5.4 WBC 5.0 K/mm3 (Normal) Range: 4.4-11.0 9-Wla-100811:16 Comprehensive Metabolic Profil Comments: Order Date: 03/09/16Interface Comments: Reason:Order Date: 03/09/16erial Specimen #1, #2 or #3? [facility] [address] [place], [address] GAP 9 (Normal) Range: 5-15 CO2 21.0 mmol/L (Normal) Range: 21.0-32.0 CL 112 mmol/L (Abnormal) Range: 98-107 K 3.8 mmol/L (Normal) Range: 3.5-5.1 NA 142 mmol/L (Normal) Range: 136-145 T BILI 0.30 mg/dL (Normal) Range: 0.20-1.00 ALT 26 U/L (Normal) Range: 12-78 ALK P 65 U/L (Normal) Range: 50-136 AST 17 U/L (Normal) Range: 15-37 CA 8.3 mg/dL (Abnormal) Range: 8.5-10.1 A/G 0.9 {RATIO} (Normal) Range: 0.9-2.4 GLOB 3.5 g/dL (Normal) Range: 2.3-3.5 ALB 3.3 g/dL (Abnormal) Range: 3.4-5.0 T PROT 6.8 g/dL (Normal) Range: 6.4-8.2 BUN/CRE 12.0 {RATIO} (Normal) Range: 10-20 EST GFR - AA 22 mL/min (Abnormal) Comments: GFR Calc EST GFR 18 mL/min (Abnormal) Comments: Non- GFR Calc CREAT,SERUM 2.66 mg/dL (Abnormal) Range: 0.55-1.20 Comments: The validity of the calculated GFR AND GFRAA in patients over70 years has not been determined. Clinical correlation isessential. BUN 32 mg/dL (Abnormal) Range: 7-18 GLU 92 mg/dL (Normal) Range: 70-110 7-Jhk-782968:16 Ferritin Comments: Order Date: 03/09/16Interface Comments: Reason:Order Date: 03/09/16Serial Specimen #1, #2 or #3? [address] [place] [address] [address] [place], [place], [phone] FERRITIN 120 ng/mL (Normal) Range: 8-252 5-Ckn-742818:16 Iron Comments: Order Date: 03/09/16Interface Comments: Reason:Order Date: 03/09/16Serial Specimen #1, #2 or #3? [address] [place] [address] [address] [place], [place], [address] IRON 107 ug/dL (Normal) Range: 50-170 7-Lzm-100519:16 Iron Binding Capacity,Total Comments: Order Date: 03/09/16Interface Comments: Reason:Order Date: 03/09/16Serial Specimen #1, #2 or #3? [address] [place] [address] [address] [place], [place], [phone] TIBC 287 ug/dL (Normal) Range: 250-450 2-Zsl-251693:16 LDH 174 U/L (Normal) Comments: Order Date: 03/09/16Interface Comments: Reason:Order Date: 03/09/16Serial Specimen #1, #2 or #3? [address] [place] [address] [address] [place], [id number] Range: 84-246 4-Dla-230239:16 Uric Acid Comments: Order Date: 03/09/16Interface Comments: Reason:Order Date: 03/09/16Serial Specimen #1, #2 or #3? [address] [place] [address] [address] Elsa [place], [id number] URIC 6.2 mg/dL (Abnormal) Range: 2.6-6.0 Comments: The drugs N-Acetylcysteine and Metamizole may falsely deressthis assay. 09-Dzx-966896:27 Prothrombin Time w/INR Comments: Order Date: 05/13/16Order Info: 6301-6 - *Prothrombin Time (PT)Comments: PT/INROrder Date: 05/13/16Order Info: 6301-6 - *Prothrombin Time (PT)Comments: PT/INRWProMed[facility] [place] [address]rsg[address] [place], [phone] INR 3.1 (Normal) PROTIME 31.0 s (Abnormal) Range: 11.7-14.9 40-Otr-251173:35 URINE ANURAG CULTURE-IDENTIFICATN Comments: PATIENT NOT FASTINGPERFORMED BY: [facility] Zzirsg2655 [facility] [id number] Information: SRC: ([id number]) Antimicrobial MIHEAD (Normal) Comments: S = Susceptible; I = Intermediate; R = Resistant P = Positive; N = Negative MICS are expressed in micrograms per mL Antibiotic RSLT#1 RSLT#2 RS Susceptibility LT#3 RSLT#4Ciprofloxacin RLevofloxacin RNitrofurantoin SPenicillin STetracycline RVancomycin S Result 1 Enterococcus faecalis Comments: Greater than 100,000 colony forming units per mLNote: this isolate is vancomycin-susceptible.This information is provided for epidemiologic purposes only:vancomycin is not among the antibiotics recommen (Abnormal) ded for therapyof urinary tract infections caused by Enterococcus.For Enterococcus species, cephalosporins, aminoglycosides (except forhigh-level resistance screening), clindamycin, and trimethoprim-sul famethoxazole are not effective clinically. Fluoroquinolones areused primarily for treating urinary tract infections. (CLSI, U799-B24,2009) Urine Culture,Comprehensive Final report (Abnormal) 77-Ilz-516841:29 Urinalysis, Office ([id number]) UA - LEUKOCYTE ESTERASE Large (Normal) UA - NITRITE Negative (Normal) URINE UROBILINGN TYSON TIMED Normal mg/dL (Normal) UA - PROTEIN 30 mg/dL (Normal) UA - PH 6.0 (Normal) Comments: 5.5 UA - BLOOD non-hemolyzed trace (Normal) UA - SPECIFIC GRAVITY 1.025 (Normal) UA - KETONES Negative mg/dL (Normal) UA - BILIRUBIN Negative (Normal) UA - GLUCOSE Negative (Normal) 86-Mis-141540:23 Prothrombin Time w/INR Comments: Order Date: 05/09/16Order Date: 05/09/16[facility] [address] [place], [address] INR 1.8 (Normal) PROTIME 20.7 s (Abnormal) Range: 11.7-14.9 :26 Prothrombin Time w/INR Comments: Order Date: 05/04/16Order Date: 05/04/16[facility] [address], [address] INR 1.8 (Normal) PROTIME 19.9 s (Abnormal) Range: 11.7-14.9 :31 Prothrombin Time w/INR Comments: CRITICAL VALUE REPEATED AND VERIFIED. CALLED TO [facility] Zulma Watts.RESULTS READ BACK BY MARTA .[facility] [address] [place], [phone] INR 4.4 (Abnormal) PROTIME 40.4 s (Abnormal) Range: 11.7-14.9 :44 CBC W/Diff, Auto - EPLAB Comments: At [facility] Outpatient [facility] [place] Medical Oncologypatients receive CBC w/auto Differential ONLY. Physicianwill place an order for a manual differential or Pathologistreview at his discretion. [facility]. [address] [place] [address] RECORDING STUDIO SET UP WORKER: OMERO ZAMUDIO DO PH:[phone] County Hospital [address]ctmv[address], [address] Absolute Lymph 1.16 {X10_3/uL} (Normal) Range: 0.83-4.51 Absolute Neut 5.0 {X10_3/uL} (Normal) Range: 2.0-7.7 BASO% 0.4 % (Normal) Range: 0-1 EO% 3.2 % (Normal) Range: 0-5 MONO% 7.8 % (Normal) Range: 0-10 LY% 16.6 % (Abnormal) Range: 19-41 NEUT% 72.0 % (Abnormal) Range: 47-70 MPV 6.1 fL (Abnormal) Range: 6.2-12.0 PLT 204 K/mm3 (Normal) Range: 150-450 RDW 14.0 % (Normal) Range: 11.6-14.6 MCHC 33.3 g/dL (Normal) Range: 32-36 MCH 31.5 pg (Normal) Range: 27.0-32.0 MCV 94.5 fL (Normal) Range: 81-99 HCT 32.3 % (Abnormal) Range: 37-47 HGB 10.8 g/dL (Abnormal) Range: 12.0-15.0 RBC 3.42 {M/mm3} (Abnormal) Range: 4.2-5.4 WBC 6.9 K/mm3 (Normal) Range: 4.4-11.0 42-Eyn-084525:44 Magnesium Comments: [facility] [address] [place], [phone] MG 1.7 mg/dL (Abnormal) Range: 1.8-2.4 33-Til-459071:44 Protein+Creatinine Ratio,Urine Comments: [facility] [address] [place], [address] PROT:CRE RATIO 397 {mg/g_CRE} (Abnormal) Range: 0-200 PROTEIN,UR.RAN. 89.0 mg/dL (Abnormal) UR CREAT 224.00 mg/dL (Normal) 11-Qhi-995362:44 PTH,INTACT Comments: [facility] [address] [place], [phone] PTH,Intact 199 pg/mL (Abnormal) Range: 14-72 48-Ket-774986:44 Renal Profile Comments: [facility] [address] [place], [phone](550) CO2 21.0 mmol/L (Normal) Range: 21.0-32.0 CL 109 mmol/L (Abnormal) Range: 98-107 K 4.1 mmol/L (Normal) Range: 3.5-5.1 NA 138 mmol/L (Normal) Range: 136-145 PHOS 2.0 mg/dL (Abnormal) Range: 2.5-4.9 CA 8.2 mg/dL (Abnormal) Range: 8.5-10.1 ALB 3.4 g/dL (Normal) Range: 3.4-5.0 BUN/CRE 12.0 {RATIO} (Normal) Range: 10-20 EST GFR - AA 23 mL/min (Abnormal) Comments: GFR Calc EST GFR 19 mL/min (Abnormal) Comments: Non- GFR Calc CREAT,SERUM 2.59 mg/dL (Abnormal) Range: 0.55-1.20 Comments: The validity of the calculated GFR AND GFRAA in patients over70 years has not been determined. Clinical correlation isessential. BUN 31 mg/dL (Abnormal) Range: 7-18 GLU 94 mg/dL (Normal) Range: 70-110 68-Kwg-555163:44 Vitamin D,25 Hydroxy Comments: [facility] [address] [place], [place], [phone] Vitamin D 25-OH 33.1 ng/mL (Normal) Comments: Vitamin D 25(OH) Status Range Deficiency <20 ng/mL (50nmol/L) Insuffciency 20 - 30 ng/mL (50 - 75 nmol/L) Sufficiency 30 - 100 ng/mL (75 - 250 nmol/L) Toxicity >100 ng/mL (>250 nmol/L) 62-Wjg-548308:55 Prothrombin Time w/INR Comments: Order Date: 04/06/16Interface Comments: PT/INROrder Date: 04/06/16[facility] [address] [place], [address] INR 2.2 (Normal) PROTIME 23.9 s (Abnormal) Range: 11.7-14.9 :22 Prothrombin Time w/INR Comments: Order Date: 03/30/16Order Date: 03/30/16[facility] [address] [place], [place], [address] INR 2.9 (Normal) PROTIME 29.4 s (Abnormal) Range: 11.7-14.9 :02 Prothrombin Time w/INR Comments: Diagnosis:Order Date: 01/14/16OV ID:OV Order #: [id number] County Hospital [address] [place], [place], [phone] INR 1.9 (Normal) PROTIME 21.1 s (Abnormal) Range: 11.7-14.9 28-Gqq-624947:28 CBC W/Diff, Auto - EPLAB Comments: At [facility] Outpatient [facility] Medical Oncologypatients receive CBC w/auto Differential ONLY. Physicianwill place an order for a manual differential or Pathologistreview at his discretion. [facility]. [address] [address] [place] [address] RECORDING STUDIO SET UP WORKER: OMERO ZAMUDIO DO PH:[phone] County Hospital [address]ibtc[address] [place], [place], [address] Absolute Lymph 1.22 {X10_3/uL} (Normal) Range: 0.83-4.51 Absolute Neut 2.2 {X10_3/uL} (Normal) Range: 2.0-7.7 BASO% 1.3 % (Abnormal) Range: 0-1 EO% 4.4 % (Normal) Range: 0-5 MONO% 11.2 % (Abnormal) Range: 0-10 LY% 30.0 % (Normal) Range: 19-41 NEUT% 53.1 % (Normal) Range: 47-70 MPV 6.9 fL (Normal) Range: 6.2-12.0 PLT 172 K/mm3 (Normal) Range: 150-450 RDW 13.2 % (Normal) Range: 11.6-14.6 MCHC 32.6 g/dL (Normal) Range: 32-36 MCH 29.8 pg (Normal) Range: 27.0-32.0 MCV 91.6 fL (Normal) Range: 81-99 HCT 32.6 % (Abnormal) Range: 37-47 HGB 10.6 g/dL (Abnormal) Range: 12.0-15.0 RBC 3.56 {M/mm3} (Abnormal) Range: 4.2-5.4 WBC 4.1 K/mm3 (Abnormal) Range: 4.4-11.0 :28 Comprehensive Metabolic Profil Comments: Order Date: 03/09/16OV Order #: [id number] Specimen #1, #2 or #3? 1 [id number] [facility] [address] [place], [address] GAP 6 (Normal) Range: 5-15 CO2 23.0 mmol/L (Normal) Range: 21.0-32.0 CL 108 mmol/L (Abnormal) Range: 98-107 K 4.8 mmol/L (Normal) Range: 3.5-5.1 NA 137 mmol/L (Normal) Range: 136-145 T BILI 0.40 mg/dL (Normal) Range: 0.20-1.00 ALT 19 U/L (Normal) Range: 12-78 ALK P 55 U/L (Normal) Range: 50-136 AST 22 U/L (Normal) Range: 15-37 CA 9.1 mg/dL (Normal) Range: 8.5-10.1 A/G 1.2 {RATIO} (Normal) Range: 0.9-2.4 GLOB 3.1 g/dL (Normal) Range: 2.3-3.5 ALB 3.7 g/dL (Normal) Range: 3.4-5.0 T PROT 6.8 g/dL (Normal) Range: 6.4-8.2 BUN/CRE 12.9 {RATIO} (Normal) Range: 10-20 EST GFR - AA 23 mL/min (Abnormal) Comments: GFR Calc EST GFR 19 mL/min (Abnormal) Comments: Non- GFR Calc CREAT,SERUM 2.55 mg/dL (Abnormal) Range: 0.55-1.20 Comments: The validity of the calculated GFR AND GFRAA in patients over70 years has not been determined. Clinical correlation isessential. BUN 33 mg/dL (Abnormal) Range: 7-18 GLU 73 mg/dL (Normal) Range: 70-110 91-Lyl-434515:28 Ferritin Comments: Order Date: 03/09/16 Order #: [id number] Specimen #1, #2 or #3? [address] [place] [address] [address] [place], [address] FERRITIN 117 ng/mL (Normal) Range: 8-252 02-Qmn-208157:28 Iron+Iron Binding Capacity Comments: Order Date: 03/09/16 Order #: [id number] Specimen #1, #2 or #3? [address] [place] [address] [place], [address] IRON SATURATION 33.1 % (Normal) Range: 15.0-55.0 IRON 97 ug/dL (Normal) Range: 50-170 TIBC 293 ug/dL (Normal) Range: 250-450 :28 LDH 169 U/L (Normal) Comments: Order Date: 03/09/16 Order #: [id number] Specimen #1, #2 or #3? [id number] [place] [address] [place], [address] Range: 84-246 :28 Prothrombin Time w/INR Comments: Order Date: 03/09/16 Order #: [id number] [place] [address] [place], [address](008) INR 2.7 (Normal) PROTIME 28.2 s (Abnormal) Range: 11.7-14.9 68-Idg-421853:28 Uric Acid Comments: Order Date: 03/09/16 Order #: [id number] Specimen #1, #2 or #3? [address] [place] [address] [place], [phone](118) URIC 6.5 mg/dL (Abnormal) Range: 2.6-6.0 Comments: The drugs N-Acetylcysteine and Metamizole may falsely deressthis assay. :49 Prothrombin Time w/INR Comments: Diagnosis:Order Date: 03/03/16OV ID:OV Order #: [id number] [id number] [place], [place], [phone] INR 2.9 (Normal) PROTIME 29.4 s (Abnormal) Range: 11.7-14.9 :11 Prothrombin Time w/INR Comments: [facility] [id number] [place], [place], [id number] INR 2.8 (Normal) PROTIME 28.3 s (Abnormal) Range: 11.7-14.9 :50 Prothrombin Time w/INR Comments: [facility] [address] [place], [place], [phone] INR 2.5 (Normal) PROTIME 26.0 s (Abnormal) Range: 11.7-14.9 :10 Prothrombin Time w/INR Comments: [facility] [id number] [place], [place], [phone] INR 1.7 (Normal) PROTIME 19.3 s (Abnormal) Range: 11.7-14.9 :33 CBC W/Diff, Auto - EPLAB Comments: At [facility] Oncologypatients receive CBC w/auto Differential ONLY. Physicianwill place an order for a manual differential or Pathologistreview at his discretion. [facility]. [address] [address] [place] [address] RECORDING STUDIO SET UP WORKER: OMERO ZAMUDIO DO PH:[phone] [facility] [address] [place], [place], [id number] Absolute Lymph 1.04 {X10_3/uL} (Normal) Range: 0.83-4.51 Absolute Neut 3.0 {X10_3/uL} (Normal) Range: 2.0-7.7 BASO% 1.5 % (Abnormal) Range: 0-1 EO% 5.3 % (Abnormal) Range: 0-5 MONO% 8.0 % (Normal) Range: 0-10 LY% 22.1 % (Normal) Range: 19-41 NEUT% 63.2 % (Normal) Range: 47-70 MPV 7.3 fL (Normal) Range: 6.2-12.0 PLT 195 K/mm3 (Normal) Range: 150-450 RDW 14.2 % (Normal) Range: 11.6-14.6 MCHC 33.8 g/dL (Normal) Range: 32-36 MCH 29.8 pg (Normal) Range: 27.0-32.0 MCV 88.3 fL (Normal) Range: 81-99 HCT 31.7 % (Abnormal) Range: 37-47 HGB 10.7 g/dL (Abnormal) Range: 12.0-15.0 RBC 3.59 {M/mm3} (Abnormal) Range: 4.2-5.4 WBC 4.7 K/mm3 (Normal) Range: 4.4-11.0 :32 Prothrombin Time w/INR Comments: [address] [place], [place], [id number] INR 2.3 (Normal) PROTIME 24.2 s (Abnormal) Range: 11.7-14.9 [id number]:26 Prothrombin Time w/INR Comments: [address] [place], [place], [phone] INR 2.1 (Normal) PROTIME 22.9 s (Abnormal) Range: 11.7-14.9 20-[id number]:15 Prothrombin Time w/INR Comments: [address] [place], [place], [phone] INR 2.2 (Normal) PROTIME 23.5 s (Abnormal) Range: 11.7-14.9 [id number]:14 Comprehensive Metabolic Profil Comments: [address] [place], [place], [id number] GAP 6 (Normal) Range: 5-15 CO2 23.0 mmol/L (Normal) Range: 21.0-32.0 CL 110 mmol/L (Abnormal) Range: 98-107 K 4.0 mmol/L (Normal) Range: 3.5-5.1 NA 139 mmol/L (Normal) Range: 136-145 T BILI 0.40 mg/dL (Normal) Range: 0.20-1.00 ALT 24 U/L (Normal) Range: 12-78 ALK P 55 U/L (Normal) Range: 50-136 AST 22 U/L (Normal) Range: 15-37 CA 8.3 mg/dL (Abnormal) Range: 8.5-10.1 A/G 1.0 {RATIO} (Normal) Range: 0.9-2.4 GLOB 3.4 g/dL (Normal) Range: 2.3-3.5 ALB 3.5 g/dL (Normal) Range: 3.4-5.0 T PROT 6.9 g/dL (Normal) Range: 6.4-8.2 BUN/CRE 12.9 {RATIO} (Normal) Range: 10-20 EST GFR - AA 21 mL/min (Abnormal) Comments: GFR Calc EST GFR 17 mL/min (Abnormal) Comments: Non- GFR Calc CREAT,SERUM 2.80 mg/dL (Abnormal) Range: 0.55-1.20 Comments: The validity of the calculated GFR AND GFRAA in patients over70 years has not been determined. Clinical correlation isessential. BUN 36 mg/dL (Abnormal) Range: 7-18 GLU 78 mg/dL (Normal) Range: 70-110 82-Vxv-479424:14 LDH 197 U/L (Normal) Comments: [facility] [address] [place], [place], [address] Range: 84-246 85-Yoz-177397:14 Uric Acid Comments: [facility] [address] [place], [address] URIC 7.2 mg/dL (Abnormal) Range: 2.6-6.0 77-Xza-136755:10 CBC W/Diff, Auto - EPLAB Comments: At [facility] receive CBC w/auto Differential ONLY. Physicianwill place an order for a manual differential or Pathologistreview at his discretion. [facility]. [address] [address] [place] [address] RECORDING STUDIO SET UP WORKER: OMERO ZAMUDIO DO PH:[phone] County Hospital [address], [address] Absolute Lymph 1.12 {X10_3/uL} (Normal) Range: 0.83-4.51 Absolute Neut 3.9 {X10_3/uL} (Normal) Range: 2.0-7.7 BASO% 0.7 % (Normal) Range: 0-1 EO% 3.9 % (Normal) Range: 0-5 MONO% 7.7 % (Normal) Range: 0-10 LY% 19.4 % (Normal) Range: 19-41 NEUT% 68.4 % (Normal) Range: 47-70 MPV 7.4 fL (Normal) Range: 6.2-12.0 PLT 211 K/mm3 (Normal) Range: 150-450 RDW 13.6 % (Normal) Range: 11.6-14.6 MCHC 33.7 g/dL (Normal) Range: 32-36 MCH 29.7 pg (Normal) Range: 27.0-32.0 MCV 88.2 fL (Normal) Range: 81-99 HCT 29.2 % (Abnormal) Range: 37-47 HGB 9.8 g/dL (Abnormal) Range: 12.0-15.0 RBC 3.31 {M/mm3} (Abnormal) Range: 4.2-5.4 WBC 5.8 K/mm3 (Normal) Range: 4.4-11.0 4-Wni-234987:31 Prothrombin Time w/INR Comments: [facility] [address] [place], [place], [id number] INR 2.9 (Normal) PROTIME 29.3 s (Abnormal) Range: 11.7-14.9 48-Vhv-099008:01 CBC W/Diff, Auto - EPLAB Comments: SPECIMEN OBTAINED FROM LINE DRAWAt [facility] Oncologypatients receive CBC w/auto Differential ONLY. Physicianwill place an order for a manual differential or Pathologis Only treview at his discretion. [facility]. [address] [place] [address] [address] RECORDING STUDIO SET UP WORKER: OMERO ZAMUDIO DO PH:[phone] Health [address] [place], [address] Absolute Lymph 1.09 {X10_3/uL} (Normal) Range: 0.83-4.51 Absolute Neut 3.4 {X10_3/uL} (Normal) Range: 2.0-7.7 BASO% 1.3 % (Abnormal) Range: 0-1 EO% 6.0 % (Abnormal) Range: 0-5 MONO% 10.0 % (Normal) Range: 0-10 LY% 19.9 % (Normal) Range: 19-41 NEUT% 62.9 % (Normal) Range: 47-70 MPV 6.3 fL (Normal) Range: 6.2-12.0 PLT 230 K/mm3 (Normal) Range: 150-450 RDW 13.8 % (Normal) Range: 11.6-14.6 MCHC 33.1 g/dL (Normal) Range: 32-36 MCH 29.9 pg (Normal) Range: 27.0-32.0 MCV 90.5 fL (Normal) Range: 81-99 HCT 30.3 % (Abnormal) Range: 37-47 HGB 10.0 g/dL (Abnormal) Range: 12.0-15.0 RBC 3.35 {M/mm3} (Abnormal) Range: 4.2-5.4 WBC 5.5 K/mm3 (Normal) Range: 4.4-11.0 81-Vny-798941:00 Prothrombin Time w/INR Comments: [facility] [address], [address] INR 2.5 (Normal) PROTIME 26.4 s (Abnormal) Range: 11.7-14.9 86-Frs-751596:59 Comprehensive Metabolic Profil Comments: Serial Specimen #1, #2 or #3? [facility] [address]wv[address], [address] GAP 8 (Normal) Range: 5-15 CO2 22.0 mmol/L (Normal) Range: 21.0-32.0 CL 112 mmol/L (Abnormal) Range: 98-107 K 4.2 mmol/L (Normal) Range: 3.5-5.1 NA 142 mmol/L (Normal) Range: 136-145 T BILI 0.20 mg/dL (Normal) Range: 0.20-1.00 ALT 23 U/L (Normal) Range: 12-78 ALK P 50 U/L (Normal) Range: 50-136 AST 20 U/L (Normal) Range: 15-37 CA 8.4 mg/dL (Abnormal) Range: 8.5-10.1 A/G 1.1 {RATIO} (Normal) Range: 0.9-2.4 GLOB 3.2 g/dL (Normal) Range: 2.3-3.5 ALB 3.4 g/dL (Normal) Range: 3.4-5.0 T PROT 6.6 g/dL (Normal) Range: 6.4-8.2 BUN/CRE 13.8 {RATIO} (Normal) Range: 10-20 EST GFR - AA 22 mL/min (Abnormal) Comments: GFR Calc EST GFR 18 mL/min (Abnormal) Comments: Non- GFR Calc CREAT,SERUM 2.68 mg/dL (Abnormal) Range: 0.55-1.20 Comments: The validity of the calculated GFR AND GFRAA in patients over70 years has not been determined. Clinical correlation isessential. BUN 37 mg/dL (Abnormal) Range: 7-18 GLU 78 mg/dL (Normal) Range: 70-110 45-Nag-291915:59 Ferritin Comments: Serial Specimen #1, #2 or #3? [address] [place] [address] [address] [place], [place], [address] FERRITIN 84 ng/mL (Normal) Range: 8-252 69-Kts-602249:59 Iron+Iron Binding Capacity Comments: Serial Specimen #1, #2 or #3? [address] [place] [address] [address]zh[address]jmv[address] [place], [place], [address] IRON SATURATION 27.2 % (Normal) Range: 15.0-55.0 IRON 83 ug/dL (Normal) Range: 50-170 TIBC 305 ug/dL (Normal) Range: 250-450 68-Nen-383028:59 LDH 195 U/L (Normal) Comments: Serial Specimen #1, #2 or #3? [address] [place] [address] [address] [place], [place], [id number] Range: 84-246 81-Sea-657666:59 Uric Acid Comments: Serial Specimen #1, #2 or #3? [facility] [address]qsyzf[address] [place], [id number] URIC 7.2 mg/dL (Abnormal) Range: 2.6-6.0 :33 Prothrombin Time w/INR Comments: [facility] [address] [place], [address] INR 3.0 (Normal) PROTIME 29.9 s (Abnormal) Range: 11.7-14.9 :08 Prothrombin Time w/INR Comments: [place] [address] [place], [id number] INR 3.1 (Normal) PROTIME 30.8 s (Abnormal) Range: 11.7-14.9 05-Nov-20150:00 Basic Metabolic Profile (BMP) Comments: [place] [address] [place], [address] GAP 4 (Abnormal) Range: 5-15 CO2 24.0 mmol/L (Normal) Range: 21.0-32.0 CL 110 mmol/L (Abnormal) Range: 98-107 K 4.3 mmol/L (Normal) Range: 3.5-5.1 NA 138 mmol/L (Normal) Range: 136-145 CA 8.2 mg/dL (Abnormal) Range: 8.5-10.1 BUN/CRE 13.6 {RATIO} (Normal) Range: 10-20 EST GFR - AA 22 mL/min (Abnormal) Comments: GFR Calc EST GFR 19 mL/min (Abnormal) Comments: Non- GFR Calc CREAT,SERUM 2.65 mg/dL (Abnormal) Range: 0.55-1.20 Comments: The validity of the calculated GFR AND GFRAA in patients over70 years has not been determined. Clinical correlation isessential. BUN 36 mg/dL (Abnormal) Range: 7-18 GLU 80 mg/dL (Normal) Range: 70-110 9-Wrc-556300:23 Magnesium Comments: [facility] [address] [place], [address] MG 1.8 mg/dL (Normal) Range: 1.8-2.4 :23 Protein+Creatinine Ratio,Urine Comments: [facility] [address]fs[address] [place], [address] PROT:CRE RATIO 355 {mg/g_CRE} (Abnormal) Range: 0-200 PROTEIN,UR.RAN. 56.8 mg/dL (Abnormal) UR CREAT 160.00 mg/dL (Normal) 1-Nyn-637785:23 Prothrombin Time w/INR Comments: [facility] [address]ref[address]afb[address] [place], [address] INR 3.1 (Normal) PROTIME 31.8 s (Abnormal) Range: 11.7-14.9 :23 PTH,INTACT Comments: [facility] [address] [place], [address] PTH,Intact 71 pg/mL (Normal) Range: 14-72 6-Zzn-098751:23 Renal Profile Comments: [facility] Anintylzsg8[address] [place], [address] CO2 22.0 mmol/L (Normal) Range: 21.0-32.0 CL 109 mmol/L (Abnormal) Range: 98-107 K 4.3 mmol/L (Normal) Range: 3.5-5.1 NA 140 mmol/L (Normal) Range: 136-145 PHOS 2.8 mg/dL (Normal) Range: 2.5-4.9 CA 8.5 mg/dL (Normal) Range: 8.5-10.1 ALB 3.3 g/dL (Abnormal) Range: 3.4-5.0 BUN/CRE 11.8 {RATIO} (Normal) Range: 10-20 EST GFR - AA 22 mL/min (Abnormal) Comments: GFR Calc EST GFR 18 mL/min (Abnormal) Comments: Non- GFR Calc CREAT,SERUM 2.72 mg/dL (Abnormal) Range: 0.55-1.20 Comments: The validity of the calculated GFR AND GFRAA in patients over70 years has not been determined. Clinical correlation isessential. BUN 32 mg/dL (Abnormal) Range: 7-18 GLU 83 mg/dL (Normal) Range: 70-110 1-Pcy-396009:23 Vitamin D 1,25-Dihydroxy Comments: [facility] (refer to report for specific site)refer to report for address and phone number VITD 1,25 06371 25.0 pg/mL (Normal) Range: 19.9-79.3 Comments: Performed at: [facility] [address] [id number] Director: Matthew Nino MD, Phone: [phone] 3-Kyq-201445:22 CBC W/Diff, Auto - EPLAB Comments: At [facility] Outpatient [facility] Oncologypatients receive CBC w/auto Differential ONLY. Physicianwill place an order for a manual differential or Pathologistreview at his discretion. [facility]. [address] [place] [address] RECORDING STUDIO SET UP WORKER: OMERO ZAMUDIO DO PH:[phone] County Hospital [address] [place], [place], [id number] Absolute Lymph 1.64 {X10_3/uL} (Normal) Range: 0.83-4.51 Absolute Neut 3.6 {X10_3/uL} (Normal) Range: 2.0-7.7 BASO% 0.8 % (Normal) Range: 0-1 EO% 4.6 % (Normal) Range: 0-5 MONO% 8.3 % (Normal) Range: 0-10 LY% 26.8 % (Normal) Range: 19-41 NEUT% 59.5 % (Normal) Range: 47-70 MPV 7.7 fL (Normal) Range: 6.2-12.0 PLT 231 K/mm3 (Normal) Range: 150-450 RDW 13.5 % (Normal) Range: 11.6-14.6 MCHC 34.8 g/dL (Normal) Range: 32-36 MCH 31.6 pg (Normal) Range: 27.0-32.0 MCV 91.0 fL (Normal) Range: 81-99 HCT 31.7 % (Abnormal) Range: 37-47 HGB 11.0 g/dL (Abnormal) Range: 12.0-15.0 RBC 3.48 {M/mm3} (Abnormal) Range: 4.2-5.4 WBC 6.1 K/mm3 (Normal) Range: 4.4-11.0 04-Ndb-129732:39 Microscopic Examination Comments: PATIENT NOT FASTINGPERFORMED BY: [employer] [facility] [id number] Bacteria None seen (Normal) Mucus Threads Present (Normal) Crystal Type Calcium Oxalate (Normal) Crystals Present (Abnormal) Epithelial Cells (non renal) 0-10 {/hpf} (Normal) Range: 0 - 10 RBC 0-2 {/hpf} (Normal) Range: 0 - 2 WBC 0-5 {/hpf} (Normal) Range: 0 - 5 :39 LIPID PANEL (48702) Comments: PATIENT NOT FASTINGPERFORMED BY: [employer] [facility] [id number] LDL/HDL Ratio 1.9 {ratio_units} (Normal) Range: 0.0-3.2 Comments: LDL/HDL Ratio Men Women 1/2 Avg.Risk 1.0 1.5 Av g.Risk 3.6 3.2 2X Avg.Risk 6.2 5.0 3X Avg.Risk 8.0 6.1 LDL Cholesterol Calc 100 mg/dL (Abnormal) Range: 0-99 VLDL Cholesterol Richard 33 mg/dL (Normal) Range: 5-40 HDL Cholesterol 52 mg/dL (Normal) Comments: According to ATP-III Guidelines, HDL-C >59 mg/dL is considered anegative risk factor for CHD. Triglycerides 164 mg/dL (Abnormal) Range: 0-149 Cholesterol, Total 185 mg/dL (Normal) Range: 100-199 95-Mul-119939:39 TSH (85347) Comments: PATIENT NOT FASTINGPERFORMED BY: [employer] Rungkh6619 [facility] [id number] TSH 1.800 {uIU/mL} (Normal) Range: 0.450-4.500 28-Jlr-603828:39 URINALYSIS, W/ MICRO (60065) Comments: PATIENT NOT FASTINGPERFORMED BY: [facility]6370 [facility] [id number] Microscopic Examination See below: (Normal) Comments: Microscopic was indicated and was performed. Nitrite, Urine Negative (Normal) Urobilinogen,Semi-Qn 0.2 mg/dL (Normal) Range: 0.2-1.0 Bilirubin Negative (Normal) Occult Blood Negative (Normal) Ketones Negative (Normal) Glucose Negative (Normal) Protein 1+ (Abnormal) WBC Esterase Trace (Abnormal) Appearance Cloudy (Abnormal) Urine-Color Yellow (Normal) pH 6.0 (Normal) Range: 5.0-7.5 Specific Topmost 1.014 (Normal) Range: 1.005-1.030 :39 MICROALBUMIN: CREATININE RATIO Comments: PATIENT NOT FASTINGPERFORMED BY: [facility]6370 [facility] [id number] (40652) AND (80363) Microalb/Creat Ratio 34.2 {mg/g_creat} (Abnormal) Range: 0.0-30.0 Microalbumin, Urine 46.5 ug/mL (Abnormal) Range: 0.0-17.0 Creatinine, Urine 135.9 mg/dL (Normal) Range: 15.0-278.0 :39 METABOLIC PANEL, Comments: PATIENT NOT FASTINGPERFORMED BY: [facility]6370 [facility] [id number] Information: [id number] COMPREHENSIVE (02615) ALT (SGPT) 14 [iU]/L (Normal) Range: 0-32 AST (SGOT) 20 [iU]/L (Normal) Range: 0-40 Alkaline Phosphatase, S 43 [iU]/L (Normal) Range: 39-117 Bilirubin, Total 0.3 mg/dL (Normal) Range: 0.0-1.2 A/G Ratio 1.7 (Normal) Range: 1.1-2.5 Globulin, Total 2.3 g/dL (Normal) Range: 1.5-4.5 Albumin, Serum 4.0 g/dL (Normal) Range: 3.5-4.8 Protein, Total, Serum 6.3 g/dL (Normal) Range: 6.0-8.5 Calcium, Serum 9.0 mg/dL (Normal) Range: 8.7-10.3 Carbon Dioxide, Total 19 mmol/L (Normal) Range: 18-29 Chloride, Serum 101 mmol/L (Normal) Range: 97-108 Potassium, Serum 4.1 mmol/L (Normal) Range: 3.5-5.2 Sodium, Serum 137 mmol/L (Normal) Range: 134-144 BUN/Creatinine Ratio 14 (Normal) Range: 11-26 eGFR If Africn Am 17 mL/min/1.73 (Abnormal) eGFR If NonAfricn Am 15 mL/min/1.73 (Abnormal) Creatinine, Serum 2.97 mg/dL (Abnormal) Range: 0.57-1.00 Comments: Client Requested Flag BUN 42 mg/dL (Abnormal) Range: 8-27 Glucose, Serum 79 mg/dL (Normal) Range: 65-99 07-Xbz-805433:37 Prothrombin Time w/INR Comments: [facility] [address]olds[address] [place], [address] INR 2.5 (Normal) PROTIME 26.7 s (Abnormal) Range: 11.7-14.9 95-Fmy-347096:55 CBC W/Diff, Auto - EPLAB Comments: At [facility]patients receive CBC w/auto Differential ONLY. Physicianwill place an order for a manual differential or Pathologistreview at his discretion. [facility]. [address] [address] [place] [address] RECORDING STUDIO SET UP WORKER: OMERO ZAMUDIO DO PH:[phone] County Hospital [address]vcgfd[address] [place], [place], [id number] Absolute Lymph 1.30 {X10_3/uL} (Normal) Range: 0.83-4.51 Absolute Neut 3.8 {X10_3/uL} (Normal) Range: 2.0-7.7 BASO% 0.7 % (Normal) Range: 0-1 EO% 3.2 % (Normal) Range: 0-5 MONO% 7.7 % (Normal) Range: 0-10 LY% 22.5 % (Normal) Range: 19-41 NEUT% 66.0 % (Normal) Range: 47-70 MPV 6.9 fL (Normal) Range: 6.2-12.0 PLT 184 K/mm3 (Normal) Range: 150-450 RDW 12.8 % (Normal) Range: 11.6-14.6 MCHC 32.5 g/dL (Normal) Range: 32-36 MCH 29.5 pg (Normal) Range: 27.0-32.0 MCV 91.0 fL (Normal) Range: 81-99 HCT 32.4 % (Abnormal) Range: 37-47 HGB 10.5 g/dL (Abnormal) Range: 12.0-15.0 RBC 3.56 {M/mm3} (Abnormal) Range: 4.2-5.4 WBC 5.8 K/mm3 (Normal) Range: 4.4-11.0 :55 Prothrombin Time w/INR Comments: [facility] [address] [place], [place], [id number] INR 2.5 (Normal) PROTIME 27.3 s (Abnormal) Range: 11.7-14.9 5-Rrl-720215:31 Rapid Flu (96317 x 2) Influenza A Ag negative (Normal) 4-Sxa-351943:25 CBC W/Diff, Auto - EPLAB Comments: At [facility] On[facility]patients receive CBC w/auto Differential ONLY. Physicianwill place an order for a manual differential or Pathologistreview at his discretion. [facility]. [address] [address] [place] [address] RECORDING STUDIO SET UP WORKER: OMERO ZAMUDIO DO PH:[phone] County Hospital [address]whoviayv[address] [place], [place], [address] Absolute Lymph 1.41 {X10_3/uL} (Normal) Range: 0.83-4.51 Absolute Neut 5.0 {X10_3/uL} (Normal) Range: 2.0-7.7 BASO% 1.2 % (Abnormal) Range: 0-1 EO% 3.2 % (Normal) Range: 0-5 MONO% 8.3 % (Normal) Range: 0-10 LY% 19.2 % (Normal) Range: 19-41 NEUT% 68.0 % (Normal) Range: 47-70 MPV 6.6 fL (Normal) Range: 6.2-12.0 PLT 256 K/mm3 (Normal) Range: 150-450 RDW 13.1 % (Normal) Range: 11.6-14.6 MCHC 32.2 g/dL (Normal) Range: 32-36 MCH 27.5 pg (Normal) Range: 27.0-32.0 MCV 85.5 fL (Normal) Range: 81-99 HCT 31.9 % (Abnormal) Range: 37-47 HGB 10.3 g/dL (Abnormal) Range: 12.0-15.0 RBC 3.73 {M/mm3} (Abnormal) Range: 4.2-5.4 WBC 7.3 K/mm3 (Normal) Range: 4.4-11.0 2-Equ-416232:25 Prothrombin Time w/INR Comments: [facility] [address] [place], [address] INR 1.9 (Normal) PROTIME 22.2 s (Abnormal) Range: 11.7-14.9 62-Fjh-081510:15 CBC W/Diff, Auto - EPLAB Comments: At [facility] On[facility]patients receive CBC w/auto Differential ONLY. Physicianwill place an order for a manual differential or Pathologistreview at his discretion. [facility]. [address] [place] [address] [place] [address] RECORDING STUDIO SET UP WORKER: OMERO ZAMUDIO DO PH:[phone] County Hospital [address] [place], [place], [address] Absolute Lymph 1.34 {X10_3/uL} (Normal) Range: 0.83-4.51 Absolute Neut 3.9 {X10_3/uL} (Normal) Range: 2.0-7.7 BASO% 1.2 % (Abnormal) Range: 0-1 EO% 5.6 % (Abnormal) Range: 0-5 MONO% 8.5 % (Normal) Range: 0-10 LY% 21.5 % (Normal) Range: 19-41 NEUT% 63.2 % (Normal) Range: 47-70 MPV 5.8 fL (Abnormal) Range: 6.2-12.0 PLT 214 K/mm3 (Normal) Range: 150-450 RDW 14.1 % (Normal) Range: 11.6-14.6 MCHC 33.8 g/dL (Normal) Range: 32-36 MCH 29.3 pg (Normal) Range: 27.0-32.0 MCV 86.6 fL (Normal) Range: 81-99 HCT 31.5 % (Abnormal) Range: 37-47 HGB 10.6 g/dL (Abnormal) Range: 12.0-15.0 RBC 3.64 {M/mm3} (Abnormal) Range: 4.2-5.4 WBC 6.2 K/mm3 (Normal) Range: 4.4-11.0 70-Xan-880796:15 Prothrombin Time w/INR Comments: [facility] [address]htkt[address], [address] INR 2.2 (Normal) PROTIME 24.2 s (Abnormal) Range: 11.7-14.9 87-Kne-925893:08 Ferritin Comments: THIS IS STORED UNDER THE XTRA RACK FROM [facility] Qkrirgbjkd[address], [address] FERRITIN 49 ng/mL (Normal) Range: 8-252 34-Rnn-632240:08 Iron Comments: THIS IS STORED UNDER THE XTRA RACK FROM [facility] Ycebq[address]wn[address], [address] IRON 42 ug/dL (Abnormal) Range: 50-170 38-Qty-164616:08 Iron Binding Capacity,Total Comments: THIS IS STORED UNDER THE XTRA RACK FROM [facility] Rrlxilmdkg[address], [address] TIBC 299 ug/dL (Normal) Range: 250-450 85-Qeo-349802:08 Prothrombin Time w/INR Comments: [facility] Zmbvdticag[address], [address] INR 2.2 (Normal) PROTIME 24.4 s (Abnormal) Range: 11.7-14.9 73-Urp-216400:55 CBC W/Diff, Auto - EPLAB Comments: At [facility]patients receive CBC w/auto Differential ONLY. Physicianwill place an order for a manual differential or Pathologistreview at his discretion. [facility]. [address] [place] [address] [place] [address] RECORDING STUDIO SET UP WORKER: OMERO ZAMUDIO DO PH:[phone] County Hospital Krxfvdccdm[address] [place], [place], [address] Absolute Lymph 1.28 {X10_3/uL} (Normal) Range: 0.83-4.51 Absolute Neut 3.4 {X10_3/uL} (Normal) Range: 2.0-7.7 BASO% 0.8 % (Normal) Range: 0-1 EO% 8.2 % (Abnormal) Range: 0-5 MONO% 10.2 % (Abnormal) Range: 0-10 LY% 22.2 % (Normal) Range: 19-41 NEUT% 58.6 % (Normal) Range: 47-70 MPV 5.2 fL (Abnormal) Range: 6.2-12.0 PLT 267 K/mm3 (Normal) Range: 150-450 RDW 12.4 % (Normal) Range: 11.6-14.6 MCHC 34.4 g/dL (Normal) Range: 32-36 MCH 29.3 pg (Normal) Range: 27.0-32.0 MCV 85.2 fL (Normal) Range: 81-99 HCT 29.6 % (Abnormal) Range: 37-47 HGB 10.2 g/dL (Abnormal) Range: 12.0-15.0 RBC 3.47 {M/mm3} (Abnormal) Range: 4.2-5.4 WBC 5.8 K/mm3 (Normal) Range: 4.4-11.0 :15 CBC W/Diff, Auto - EPLAB Comments: At [facility] receive CBC w/auto Differential ONLY. Physicianwill place an order for a manual differential or Pathologistreview at his discretion. [facility]. [address] [address] [place] [address] RECORDING STUDIO SET UP WORKER: OMERO ZAMUDIO DO PH:[phone] County Hospital Ivexnxnyrr15[address] [place], [address] Absolute Lymph 0.98 {X10_3/uL} (Normal) Range: 0.83-4.51 Absolute Neut 4.3 {X10_3/uL} (Normal) Range: 2.0-7.7 BASO% 0.9 % (Normal) Range: 0-1 EO% 7.6 % (Abnormal) Range: 0-5 MONO% 8.7 % (Normal) Range: 0-10 LY% 15.5 % (Abnormal) Range: 19-41 NEUT% 67.2 % (Normal) Range: 47-70 MPV 5.7 fL (Abnormal) Range: 6.2-12.0 PLT 282 K/mm3 (Normal) Range: 150-450 RDW 11.9 % (Normal) Range: 11.6-14.6 MCHC 34.4 g/dL (Normal) Range: 32-36 MCH 29.4 pg (Normal) Range: 27.0-32.0 MCV 85.4 fL (Normal) Range: 81-99 HCT 28.9 % (Abnormal) Range: 37-47 HGB 9.9 g/dL (Abnormal) Range: 12.0-15.0 RBC 3.38 {M/mm3} (Abnormal) Range: 4.2-5.4 WBC 6.3 K/mm3 (Normal) Range: 4.4-11.0 01-Plv-049993:15 Comprehensive Metabolic Profil Comments: Serial Specimen #1, #2 or #3? 1[facility] [address]ffaue[address] [place], [address] GAP 9 (Normal) Range: 5-15 CO2 23.0 mmol/L (Normal) Range: 21.0-32.0 CL 109 mmol/L (Abnormal) Range: 98-107 K 3.8 mmol/L (Normal) Range: 3.5-5.1 NA 141 mmol/L (Normal) Range: 136-145 T BILI 0.30 mg/dL (Normal) Range: 0.20-1.00 ALT 18 U/L (Normal) Range: 12-78 ALK P 69 U/L (Normal) Range: 50-136 AST 18 U/L (Normal) Range: 15-37 CA 8.3 mg/dL (Abnormal) Range: 8.5-10.1 A/G 0.9 {RATIO} (Normal) Range: 0.9-2.4 GLOB 3.9 g/dL (Abnormal) Range: 2.3-3.5 ALB 3.4 g/dL (Normal) Range: 3.4-5.0 T PROT 7.3 g/dL (Normal) Range: 6.4-8.2 BUN/CRE 10.9 {RATIO} (Normal) Range: 10-20 EST GFR - AA 21 mL/min (Abnormal) Comments: GFR Calc EST GFR 18 mL/min (Abnormal) Comments: Non- GFR Calc CREAT,SERUM 2.76 mg/dL (Abnormal) Range: 0.55-1.20 Comments: The validity of the calculated GFR AND GFRAA in patients over70 years has not been determined. Clinical correlation isessential. BUN 30 mg/dL (Abnormal) Range: 7-18 GLU 105 mg/dL (Normal) Range: 70-110 [id number] LDH 194 U/L (Normal) Comments: Serial Specimen #1, #2 or #3? [facility] [id number] [place], [address] Range: 84-246 [id number]:15 Prothrombin Time w/INR Comments: [facility] [address] [place], [address] INR 3.4 (Normal) PROTIME 34.0 s (Abnormal) Range: 11.7-14.9 [id number] Uric Acid Comments: Serial Specimen #1, #2 or #3? [facility] [address] [place], [address] URIC 7.1 mg/dL (Abnormal) Range: 2.6-6.0 [id number]:41 Prothrombin Time w/INR Comments: [facility] [address] [place], [address] INR 2.9 (Normal) PROTIME 30.4 s (Abnormal) Range: 11.7-14.9 [id number]:22 CBC W/Diff, Auto - EPLAB Comments: At [facility] Oncologypatients receive CBC w/auto Differential ONLY. Physicianwill place an order for a manual differential or Pathologistreview at his discretion. [facility]. [address] [address] [place] [address] RECORDING STUDIO SET UP WORKER: OMERO ZAMUDIO DO PH:[phone] [address] [place], [address] Absolute Lymph 1.01 {X10_3/uL} (Normal) Range: 0.83-4.51 Absolute Neut 4.3 {X10_3/uL} (Normal) Range: 2.0-7.7 BASO% 1.0 % (Normal) Range: 0-1 EO% 6.4 % (Abnormal) Range: 0-5 MONO% 10.7 % (Abnormal) Range: 0-10 LY% 15.5 % (Abnormal) Range: 19-41 NEUT% 66.4 % (Normal) Range: 47-70 MPV 5.9 fL (Abnormal) Range: 6.2-12.0 PLT 225 K/mm3 (Normal) Range: 150-450 RDW 12.6 % (Normal) Range: 11.6-14.6 MCHC 34.0 g/dL (Normal) Range: 32-36 MCH 29.5 pg (Normal) Range: 27.0-32.0 MCV 86.7 fL (Normal) Range: 81-99 HCT 27.2 % (Abnormal) Range: 37-47 HGB 9.2 g/dL (Abnormal) Range: 12.0-15.0 RBC 3.13 {M/mm3} (Abnormal) Range: 4.2-5.4 WBC 6.5 K/mm3 (Normal) Range: 4.4-11.0 [id number] Comprehensive Metabolic Profil Comments: Serial Specimen #1, #2 or #3? [facility] [address] [place], [address] GAP 9 (Normal) Range: 5-15 CO2 23.0 mmol/L (Normal) Range: 21.0-32.0 CL 111 mmol/L (Abnormal) Range: 98-107 K 4.2 mmol/L (Normal) Range: 3.5-5.1 NA 143 mmol/L (Normal) Range: 136-145 T BILI 0.30 mg/dL (Normal) Range: 0.20-1.00 ALT 22 U/L (Normal) Range: 12-78 ALK P 73 U/L (Normal) Range: 50-136 AST 20 U/L (Normal) Range: 15-37 CA 8.0 mg/dL (Abnormal) Range: 8.5-10.1 A/G 0.9 {RATIO} (Normal) Range: 0.9-2.4 GLOB 3.6 g/dL (Abnormal) Range: 2.3-3.5 ALB 3.3 g/dL (Abnormal) Range: 3.4-5.0 T PROT 6.9 g/dL (Normal) Range: 6.4-8.2 BUN/CRE 11.4 {RATIO} (Normal) Range: 10-20 EST GFR - AA 24 mL/min (Abnormal) Comments: GFR Calc EST GFR 19 mL/min (Abnormal) Comments: Non- GFR Calc CREAT,SERUM 2.54 mg/dL (Abnormal) Range: 0.55-1.20 Comments: The validity of the calculated GFR AND GFRAA in patients over70 years has not been determined. Clinical correlation isessential. BUN 29 mg/dL (Abnormal) Range: 7-18 GLU 134 mg/dL (Abnormal) Range: 70-110 Comments: Fasting Glucose result greater than or equal to 126 mg/dLsuggests DIABETES MELLITUS per A.D.A. criteria. 5-Tjz-383639:22 LDH 220 U/L (Normal) Comments: Serial Specimen #1, #2 or #3? [address] [place] [address] [address] [place], [address] Range: 84-246 8-Nin-187405:22 Uric Acid Comments: Serial Specimen #1, #2 or #3? [address] [place] [address] Warbjjmh[address], [address] URIC 5.9 mg/dL (Normal) Range: 2.6-6.0 31-Piw-100967:00 Prothrombin Time w/INR Comments: [facility] Qlezjpfosi16[address] [place], [place], [id number] INR 2.2 (Normal) PROTIME 24.1 s (Abnormal) Range: 11.7-14.9 16-Fhq-375242:10 Prothrombin Time w/INR Comments: [facility] Alvh[address]clts[address] [place], [address] INR 2.4 (Normal) PROTIME 26.4 s (Abnormal) Range: 11.7-14.9 23-Kvr-232691:40 Prothrombin Time w/INR Comments: [facility] Efby[address]ib[address], [address] INR 2.4 (Normal) PROTIME 26.3 s (Abnormal) Range: 11.7-14.9 0-Pzg-055865:00 CBC W/Diff, Auto - EPLAB Comments: At [facility]patients receive CBC w/auto Differential ONLY. Physicianwill place an order for a manual differential or Pathologistreview at his discretion. [facility]. [address] [address] [place] [address] RECORDING STUDIO SET UP WORKER: OMERO ZAMUDIO DO PH:[phone] County Hospital Rjhhuqxxjc87[address], [address] Absolute Lymph 1.45 {X10_3/uL} (Normal) Range: 0.83-4.51 Absolute Neut 5.0 {X10_3/uL} (Normal) Range: 2.0-7.7 BASO% 0.7 % (Normal) Range: 0-1 EO% 3.9 % (Normal) Range: 0-5 MONO% 8.2 % (Normal) Range: 0-10 LY% 19.5 % (Normal) Range: 19-41 NEUT% 67.7 % (Normal) Range: 47-70 MPV 6.0 fL (Abnormal) Range: 6.2-12.0 PLT 233 K/mm3 (Normal) Range: 150-450 RDW 12.8 % (Normal) Range: 11.6-14.6 MCHC 33.0 g/dL (Normal) Range: 32-36 MCH 29.6 pg (Normal) Range: 27.0-32.0 MCV 89.8 fL (Normal) Range: 81-99 HCT 31.4 % (Abnormal) Range: 37-47 HGB 10.4 g/dL (Abnormal) Range: 12.0-15.0 RBC 3.50 {M/mm3} (Abnormal) Range: 4.2-5.4 WBC 7.4 K/mm3 (Normal) Range: 4.4-11.0 :59 Magnesium Comments: [facility] Tnwpfsuicq[address] [place], [phone] MG 1.7 mg/dL (Abnormal) Range: 1.8-2.4 :59 Protein+Creatinine Ratio,Urine Comments: [facility] Cwillrswza2173 [address] [place], [id number] PROT:CRE RATIO 250 {mg/g_CRE} (Abnormal) Range: 0-200 PROTEIN,UR.RAN. 46.8 mg/dL (Abnormal) UR CREAT 187.00 mg/dL (Normal) :59 PTH,INTACT Comments: [facility] Kdtchwfqsp5559 [address] [place], [id number] PTH,Intact 81 pg/mL (Abnormal) Range: 14-72 :59 Renal Profile Comments: [address] [place], [address] CO2 22.0 mmol/L (Normal) Range: 21.0-32.0 CL 110 mmol/L (Abnormal) Range: 98-107 K 4.3 mmol/L (Normal) Range: 3.5-5.1 NA 139 mmol/L (Normal) Range: 136-145 PHOS 3.1 mg/dL (Normal) Range: 2.5-4.9 CA 8.5 mg/dL (Normal) Range: 8.5-10.1 ALB 3.7 g/dL (Normal) Range: 3.4-5.0 BUN/CRE 14.6 {RATIO} (Normal) Range: 10-20 EST GFR - AA 20 mL/min (Abnormal) Comments: GFR Calc EST GFR 17 mL/min (Abnormal) Comments: Non- GFR Calc CREAT,SERUM 2.88 mg/dL (Abnormal) Range: 0.55-1.20 Comments: The validity of the calculated GFR AND GFRAA in patients over70 years has not been determined. Clinical correlation isessential. BUN 42 mg/dL (Abnormal) Range: 7-18 GLU 94 mg/dL (Normal) Range: 70-110 3-Znd-462217:59 Vitamin D,25 Hydroxy Comments: [facility] [address]uhbn[address] [place], [address] Vitamin D 25-OH 39.3 ng/mL (Normal) Comments: Vitamin D 25(OH) Status Range Deficiency <20 ng/mL (50nmol/L) Insuffciency 20 - 30 ng/mL (50 - 75 nmol/L) Sufficiency 30 - 100 ng/mL (75 - 250 nmol/L) Toxicity >100 ng/mL (>250 nmol/L) 5-Mmh-831641:40 Lipid Profile Comments: PT TO DR PARRA, TSH, MICRO ALB CREA, UAC AND LIPD TO [facility] [address] [place], [address] VLDL 29 mg/dL (Normal) Range: 5-40 LDL 91 mg/dL (Normal) Range: 0-130 HDL 73 mg/dL (Normal) Comments: Reference Range HDL <40 mg/dL Low HDL Cholesterol HDL >or= 60 mg/dL High HDL Cholesterol TRIG 146 mg/dL (Normal) Comments: Serum Triglycerides Reference Interval Normal <150 mg/dL Borderline high 150 - 199 mg/dL High 200 - 499 mg/dL Very High > or = 500 mg/dL CHOL 193 mg/dL (Normal) Comments: <200 mg/dL Desirable 200-240 mg/dL Borderline >240 mg/dL High Risk 2-Ich-006132:40 Microalb:Creat Ratio,Random UR Comments: [facility] [address]nic[address] [place], [address] MALB:CREAT 14.5 {mg/g_CRE} (Normal) MICROALBUMIN,UR 14.8 mg/L (Normal) UR CREAT 102.00 mg/dL (Normal) 4-Nmi-547650:40 Prothrombin Time w/INR Comments: [facility] Gleknuctoc[address], [address] INR 2.3 (Normal) PROTIME 25.1 s (Abnormal) Range: 11.7-14.9 5-She-488571:40 Thyroid Stim Hormone (TSH) Comments: PT TO DR PARRA, TSH, MICRO ALB CREA, UAC AND LIPD [facility]Wood [facility] Dzzduvuedi6372 [place], [address] TSH 3.62 {uIU/mL} (Normal) Range: 0.358-3.74 :40 Urinalysis, Complete Comments: How was Urine Obtained? CLEAN [facility] Rqikbuiriy3551 [address], [address] MUCUS, URINE 0 SEEN {/hpf} (Normal) BACTERIA RARE {/hpf} (Normal) SQUAM EPI 0-5 SEEN {/hpf} (Normal) Range: 5-10 RBC-UA 0 SEEN {/hpf} (Normal) Range: 0-5 WBC 0-5 SEEN {/hpf} (Normal) Range: 0-5 LEUK ESTERASE 25 /ul (Abnormal) OCCULT BLOOD-UR Negative /ul (Normal) NITRITE UR Negative (Normal) UROBILI Normal mg/dL (Normal) PROT DIPSTX Negative mg/dL (Normal) pH UR 5.0 (Normal) Range: 5.0 - 8.0 SP.GR. DIPSTX 1.015 (Normal) Range: 1.002-1.030 KETONE UR Negative mg/dL (Normal) BILIRUBIN URINE Negative mg/dL (Normal) GLUCOSE, UR Normal mg/dL (Normal) CLARITY Sl. Cloudy (Normal) COLOR Yellow (Normal) 55-Fsk-429157:15 CBC W/Diff, Auto - EPLAB Comments: At [facility] Oncologypatients receive CBC w/auto Differential ONLY. Physicianwill place an order for a manual differential or Pathologistreview at his discretion. [facility]. [address] [place] [address] RECORDING STUDIO SET UP WORKER: OMERO ZAMUDIO DO PH:[phone] County Hospital [address]jtsvkjhiv67[address] [place], [address] Absolute Lymph 1.10 {X10_3/uL} (Normal) Range: 0.83-4.51 Absolute Neut 3.6 {X10_3/uL} (Normal) Range: 2.0-7.7 BASO% 1.4 % (Abnormal) Range: 0-1 EO% 6.6 % (Abnormal) Range: 0-5 MONO% 9.4 % (Normal) Range: 0-10 LY% 19.5 % (Normal) Range: 19-41 NEUT% 63.1 % (Normal) Range: 47-70 MPV 6.8 fL (Normal) Range: 6.2-12.0 PLT 189 K/mm3 (Normal) Range: 150-450 RDW 12.8 % (Normal) Range: 11.6-14.6 MCHC 34.1 g/dL (Normal) Range: 32-36 MCH 30.6 pg (Normal) Range: 27.0-32.0 MCV 89.9 fL (Normal) Range: 81-99 HCT 30.0 % (Abnormal) Range: 37-47 HGB 10.2 g/dL (Abnormal) Range: 12.0-15.0 RBC 3.34 {M/mm3} (Abnormal) Range: 4.2-5.4 WBC 5.7 K/mm3 (Normal) Range: 4.4-11.0 39-Uih-685389:15 Comprehensive Metabolic Profil Comments: Serial Specimen #1, #2 or #3? 1[facility] [address]askl[address] [place], [place], [id number] GAP 10 (Normal) Range: 5-15 CO2 21.0 mmol/L (Normal) Range: 21.0-32.0 CL 111 mmol/L (Abnormal) Range: 98-107 K 3.8 mmol/L (Normal) Range: 3.5-5.1 NA 142 mmol/L (Normal) Range: 136-145 T BILI 0.30 mg/dL (Normal) Range: 0.20-1.00 ALT 26 U/L (Normal) Range: 12-78 ALK P 58 U/L (Normal) Range: 50-136 AST 21 U/L (Normal) Range: 15-37 CA 8.7 mg/dL (Normal) Range: 8.5-10.1 A/G 1.2 {RATIO} (Normal) Range: 0.9-2.4 GLOB 2.9 g/dL (Normal) Range: 2.3-3.5 ALB 3.6 g/dL (Normal) Range: 3.4-5.0 T PROT 6.5 g/dL (Normal) Range: 6.4-8.2 BUN/CRE 14.8 {RATIO} (Normal) Range: 10-20 EST GFR - AA 23 mL/min (Abnormal) Comments: GFR Calc EST GFR 19 mL/min (Abnormal) Comments: Non- GFR Calc CREAT,SERUM 2.57 mg/dL (Abnormal) Range: 0.55-1.20 Comments: The validity of the calculated GFR AND GFRAA in patients over70 years has not been determined. Clinical correlation isessential. BUN 38 mg/dL (Abnormal) Range: 7-18 GLU 74 mg/dL (Normal) Range: 70-110 70-Sfw-345894:15 LDH 188 U/L (Normal) Comments: Serial Specimen #1, #2 or #3? [address] [place] [address] [address] [place], [place], [id number] Range: 84-246 18-Jaz-961683:15 Prothrombin Time w/INR Comments: [facility] Madkqwdlly[address] [place], [place], [phone] INR 2.1 (Normal) PROTIME 23.5 s (Abnormal) Range: 11.7-14.9 52-Yly-291595:15 Uric Acid Comments: Serial Specimen #1, #2 or #3? [address] [place] [address] [address]mdqpd[address] [place], [place], [id number] URIC 6.6 mg/dL (Abnormal) Range: 2.6-6.0 40-Oil-401640:50 Basic Metabolic Profile (BMP) Comments: SPECIMEN OBTAINED FROM [facility] [address]vouq[address]fzet[address]wen [place], [place], [id number] GAP 8 (Normal) Range: 5-15 CO2 20.0 mmol/L (Abnormal) Range: 21.0-32.0 CL 113 mmol/L (Abnormal) Range: 98-107 K 4.2 mmol/L (Normal) Range: 3.5-5.1 NA 141 mmol/L (Normal) Range: 136-145 CA 8.7 mg/dL (Normal) Range: 8.5-10.1 BUN/CRE 15.2 {RATIO} (Normal) Range: 10-20 Estimated CRCL 14.53 ml/min (Normal) EST GFR - AA 23 mL/min (Abnormal) Comments: GFR Calc EST GFR 19 mL/min (Abnormal) Comments: Non- GFR Calc CREAT,SERUM 2.64 mg/dL (Abnormal) Range: 0.55-1.20 Comments: The validity of the calculated GFR AND GFRAA in patients over70 years has not been determined. Clinical correlation isessential. BUN 40 mg/dL (Abnormal) Range: 7-18 GLU 85 mg/dL (Normal) Range: 70-110 38-Mfz-781361:50 Prothrombin Time w/INR Comments: SPECIMEN OBTAINED FROM [facility] [address]ouvttmi[address], [address] INR 1.6 (Normal) PROTIME 19.4 s (Abnormal) Range: 11.7-14.9 5-Drd-711494:10 CBC W/Diff, Automated Comments: At [facility] Oncologypatients receive CBC w/auto Differential ONLY. Physicianwill place an order for a manual differential or Pathologistreview at his discretion. [facility]. [address] [address] [place] [address] RECORDING STUDIO SET UP WORKER: OMERO ZAMUDIO DO PH:[phone] performed at:[facility] Laborato co[address] [address] Absolute Lymph 0.81 {X10_3/ul} (Abnormal) Range: 0.83-4.51 Absolute Neut 3.3 {X10_3/uL} (Normal) Range: 2.0-7.7 IM GRAN % 0.200 % (Normal) Range: 0.0-0.9 Comments: IG% - Immature Granulocytes (promyelocytes, myelocytes andmetamyelocytes) > 1% indicates that a LEFT SHIFT is Present. BASO% 0.4 % (Normal) Range: 0-1 EO% 5.1 % (Abnormal) Range: 0-5 MONO% 9.7 % (Normal) Range: 0-10 LY% 16.6 % (Abnormal) Range: 19-41 NEUT% 68.0 % (Normal) Range: 47-70 MPV 9.5 fL (Normal) Range: 6.2-12.0 PLT 171 K/mm3 (Normal) Range: 150-450 RDW SD 48.0 fL (Abnormal) Range: 35.1-43.9 RDW CV 14.6 % (Normal) Range: 11.6-14.6 MCHC 32.7 {g/gl} (Normal) Range: 32-36 MCH 29.3 pg (Normal) Range: 27.0-32.0 MCV 89.6 fL (Normal) Range: 81-99 HCT 30.3 % (Abnormal) Range: 37-47 HGB 9.9 g/dL (Abnormal) Range: 12.0-15.0 RBC 3.38 {M/mm3} (Abnormal) Range: 4.2-5.4 WBC 4.9 K/mm3 (Normal) Range: 4.4-11.0 9-Rjx-412874:10 Comprehensive Metabolic Profil Comments: Serial Specimen #1, #2 or #3? 1Test performed at:[facility] [address]dfupddyfy[address] [place], [place] [id number] ; handled by felix TIAN 9 (Normal) Range: 5-15 CO2 19.0 mmol/L (Abnormal) Range: 21.0-32.0 CL 109 mmol/L (Abnormal) Range: 98-107 K 4.2 mmol/L (Normal) Range: 3.5-5.1 NA 137 mmol/L (Normal) Range: 136-145 T BILI 0.30 mg/dL (Normal) Range: 0.20-1.00 ALT 32 U/L (Normal) Range: 12-78 ALK P 54 U/L (Normal) Range: 50-136 AST 32 U/L (Normal) Range: 15-37 CA 8.2 mg/dL (Abnormal) Range: 8.5-10.1 A/G 1.2 {RATIO} (Normal) Range: 0.9-2.4 GLOB 3.3 g/dL (Normal) Range: 2.3-3.5 ALB 3.8 g/dL (Normal) Range: 3.4-5.0 T PROT 7.1 g/dL (Normal) Range: 6.4-8.2 BUN/CRE 16.2 {RATIO} (Normal) Range: 10-20 CREAT,SERUM 2.65 mg/dL (Abnormal) Range: 0.55-1.20 Comments: Please note revised CREATININE reference range aqzlstole89/22/2015. BUN 43 mg/dL (Abnormal) Range: 7-18 GLU 79 mg/dL (Normal) Range: 70-110 6-Nrq-096917:10 LDH 202 U/L (Normal) Comments: Serial Specimen #1, #2 or #3? 1Test performed at:[facility] [address] [place] [address] Range: 84-246 4-Ffj-972082:10 Prothrombin Time w/INR Comments: Test performed at:[facility] [address] [place] [address] INR 2.3 (Normal) PROTIME 25.6 s (Abnormal) Range: 11.7-14.9 5-Try-261663:10 Uric Acid Comments: Serial Specimen #1, #2 or #3? 1Test performed at:[facility] [address] [place] [address] URIC 6.3 mg/dL (Abnormal) Range: 2.6-6.0 92-Fat-492320:00 Prothrombin Time w/INR Comments: Test performed at:[facility] [address] [place] [address] INR 2.5 (Normal) PROTIME 26.8 s (Abnormal) Range: 11.7-14.9 47-Cwn-389270:37 CALCIFIDIOL (38785) VIT D 25 Comments: PATIENT NOT FASTINGPERFORMED BY: [facility] CenterItetiv2533 [facility] [id number] Vitamin D, 25-Hydroxy 40.0 ng/mL (Normal) Range: 30.0-100.0 Comments: Vitamin D deficiency has been defined by the [place] ofMedicine and an Endocrine Society practice guideline as alevel of serum 25-OH vitamin D less than 20 ng/mL (1,2).The Endocrine Society went on to further define vitamin Dinsufficiency as a level between 21 and 29 ng/mL (2).1. IOM ([place] of Medicine). 2010. Dietary reference intakes for calcium and D. [place]: The National Academies Press.2. Lluvia MF, Wade [place], Tanner VENEGAS, et al. Evaluation, treatment, and prevention of vitamin D deficiency: an Endocrine Society clinical practice guideline. JCEM. 2010; 96(7):1911-30. 06-Tzw-810004:37 TSH (79840) Comments: PATIENT NOT FASTINGPERFORMED BY: [facility] Crrpcd1840 [facility] [id number] Information: [id number] TSH 3.550 {uIU/mL} (Normal) Range: 0.450-4.500 83-Woa-801225:40 Prothrombin Time w/INR Comments: Test performed at:[facility] Rocoqxewwc3220 [facility] [place] [address] INR 2.4 (Normal) PROTIME 26.0 s (Abnormal) Range: 11.7-14.9 02-Mar-20159:00 Prothrombin Time w/INR Comments: Test performed at:[facility] Tloihzgicj9532 [facility], [place] [address] INR 2.2 (Normal) PROTIME 24.3 s (Abnormal) Range: 11.7-14.9 49-Jub-794937:05 CBC W/Diff, Auto - EPLAB Comments: At [facility] Oncologypatients receive CBC w/auto Differential ONLY. Physicianwill place an order for a manual differential or Pathologistreview at his discretion. [facility]. [address] [address] [place] [address] RECORDING STUDIO SET UP WORKER: OMERO ZAMUDIO DO PH:[phone] performed at:[facility] [address]ato [address] [place] [address] Absolute Neut 3.7 {X10_3/uL} (Normal) Range: 2.0-7.7 BASO% 1.1 % (Abnormal) Range: 0-1 EO% 7.4 % (Abnormal) Range: 0-5 MONO% 8.5 % (Normal) Range: 0-10 LY% 13.4 % (Abnormal) Range: 19-41 NEUT% 69.5 % (Normal) Range: 47-70 MPV 7.2 fL (Normal) Range: 6.2-12.0 PLT 160 K/mm3 (Normal) Range: 150-450 RDW 12.8 % (Normal) Range: 11.6-14.6 MCHC 33.7 g/dL (Normal) Range: 32-36 MCH 29.2 pg (Normal) Range: 27.0-32.0 MCV 86.6 fL (Normal) Range: 81-99 HCT 30.8 % (Abnormal) Range: 37-47 HGB 10.4 g/dL (Abnormal) Range: 12.0-15.0 RBC 3.56 {M/mm3} (Abnormal) Range: 4.2-5.4 WBC 5.4 K/mm3 (Normal) Range: 4.4-11.0 86-Cre-703852:05 Prothrombin Time w/INR Comments: Test performed at:[facility] [address] [place] [address] INR 2.5 (Normal) PROTIME 27.0 s (Abnormal) Range: 11.7-14.9 16-Rkx-556204:35 Prothrombin Time w/INR Comments: Test performed at:[facility] [address] [place] [address] INR 1.4 (Normal) PROTIME 17.4 s (Abnormal) Range: 11.7-14.9 16-Pig-642279:51 CBC W/Diff, Auto - EPLAB Comments: At [facility] On[facility]patients receive CBC w/auto Differential ONLY. Physicianwill place an order for a manual differential or Pathologistreview at his discretion. [facility]. [address] [place] [address] [address] RECORDING STUDIO SET UP WORKER: OMERO ZAMUDIO DO PH:[phone] performed at:[facility] [address] zq[address] [place] [address] Absolute Neut 4.0 {X10_3/uL} (Normal) Range: 2.0-7.7 BASO% 1.1 % (Abnormal) Range: 0-1 EO% 5.2 % (Abnormal) Range: 0-5 MONO% 8.0 % (Normal) Range: 0-10 LY% 14.8 % (Abnormal) Range: 19-41 NEUT% 70.9 % (Abnormal) Range: 47-70 MPV 6.9 fL (Normal) Range: 6.2-12.0 PLT 185 K/mm3 (Normal) Range: 150-450 RDW 12.7 % (Normal) Range: 11.6-14.6 MCHC 33.7 g/dL (Normal) Range: 32-36 MCH 28.9 pg (Normal) Range: 27.0-32.0 MCV 85.7 fL (Normal) Range: 81-99 HCT 31.3 % (Abnormal) Range: 37-47 HGB 10.6 g/dL (Abnormal) Range: 12.0-15.0 RBC 3.66 {M/mm3} (Abnormal) Range: 4.2-5.4 WBC 5.6 K/mm3 (Normal) Range: 4.4-11.0 48-Hfe-023919:51 Magnesium Comments: RENAL, VITD25, MG PTHIN AND URINCE TO GO TO DR. Dupont performed at:[facility] [address] [place] [address] MG 1.7 mg/dL (Abnormal) Range: 1.8-2.4 :51 Protein+Creatinine Ratio,Urine Comments: RENAL, VITD25, MG PTHIN AND URINCE TO GO TO DR. Dupont performed at:[facility] [address] [place] [id number](173 PROT:CRE RATIO 304 {mg/g_CRE} (Abnormal) Range: 0-200 PROTEIN,UR.RAN. 48.2 mg/dL (Abnormal) UR CREAT 158.3 mg/dL (Normal) 12-Yme-542333:51 Prothrombin Time w/INR Comments: Test performed at:[facility] [address] [place] [id number] INR 1.1 (Normal) PROTIME 14.2 s (Normal) Range: 11.7-14.9 :51 PTH,INTACT Comments: Test performed at:[address] [place] [address] PTH,Intact 31 pg/mL (Normal) Range: 14-72 21-Uer-265754:51 Renal Profile Comments: RENAL, VITD25, MG PTHIN AND URINCE TO GO TO DR. Dupont performed at:[facility] [address] [place] [address] [place] [address] CO2 20.0 mmol/L (Abnormal) Range: 21.0-32.0 CL 107 mmol/L (Normal) Range: 98-107 K 4.8 mmol/L (Normal) Range: 3.5-5.1 NA 138 mmol/L (Normal) Range: 136-145 PHOS 3.8 mg/dL (Normal) Range: 2.5-4.9 CA 9.6 mg/dL (Normal) Range: 8.5-10.1 ALB 3.6 g/dL (Normal) Range: 3.4-5.0 BUN/CRE 15.0 {RATIO} (Normal) Range: 10-20 CREAT,SERUM 2.8 mg/dL (Abnormal) Range: 0.6-1.0 BUN 42 mg/dL (Abnormal) Range: 7-18 GLU 79 mg/dL (Normal) Range: 70-110 00-Vgy-498834:51 Vitamin D,25 Hydroxy Comments: Test performed at:[facility] [address] [place] [address] [place] [address] Vitamin D 25-OH 32.1 ng/mL (Normal) Comments: Vitamin D 25(OH) Status Range Deficiency <20 ng/mL (50nmol/L) Insuffciency 20 - 30 ng/mL (50 - 75 nmol/L) Sufficiency 30 - 100 ng/mL (75 - 250 nmol/L) Toxicity >100 ng/mL (>250 nmol/L) 47-Rkf-600445:00 Prothrombin Time w/INR Comments: Test performed at:[facility] [address] [place] [address] INR 2.5 (Normal) PROTIME 26.7 s (Abnormal) Range: 11.7-14.9 43-Wyb-788898:54 Serum Creatinine AND GFR Comments: Test performed at:[facility] [address] [place] [address] CREAT,SERUM 2.6 mg/dL (Abnormal) Range: 0.6-1.0 30-Cdc-723805:47 D-Dimer Quantitative (DVT/PE) Comments: Test performed at:[facility] [address] [place] [address] D-DIMER QUANT 2.05 {FEU/ug/m} (Abnormal) Range: 0.27-0.49 Comments: D-Dimer ELEVATED (>0.49): Additional studies and clinicalassessments are indicated to conclude diagnosis of:Deep Vein Thrombosis (DVT) or Pulmonary Embolism (PE)CRITICAL VALUE REPEATED AND VERIFIED. CALLED TO [facility]'S OFFICE.01/14/15 1322 Kory Kent.RESULTS READ BACK BY SAME. 27-Dot-657092:20 Prothrombin Time w/INR Comments: Test performed at:[facility] [address] [place], [place] [address] INR 2.6 (Normal) PROTIME 27.5 s (Abnormal) Range: 11.7-14.9 [id number] CBC W/Diff, Auto - EPLAB Comments: At [facility] receive CBC w/auto Differential ONLY. Physicianwill place an order for a manual differential or Pathologistreview at his discretion. [facility]. [address] [address] [place] [address] RECORDING STUDIO SET UP WORKER: OMERO ZAMUDIO DO PH:[phone] performed at:[facility] [address] [place], [place] [id number] Absolute Neut 3.2 {X10_3/uL} (Normal) Range: 2.0-7.7 BASO% 1.1 % (Abnormal) Range: 0-1 EO% 3.0 % (Normal) Range: 0-5 MONO% 7.8 % (Normal) Range: 0-10 LY% 18.1 % (Abnormal) Range: 19-41 NEUT% 69.9 % (Normal) Range: 47-70 MPV 6.6 fL (Normal) Range: 6.2-12.0 PLT 181 K/mm3 (Normal) Range: 150-450 RDW 13.4 % (Normal) Range: 11.6-14.6 MCHC 32.5 g/dL (Normal) Range: 32-36 MCH 29.4 pg (Normal) Range: 27.0-32.0 MCV 90.3 fL (Normal) Range: 81-99 HCT 32.3 % (Abnormal) Range: 37-47 HGB 10.5 g/dL (Abnormal) Range: 12.0-15.0 RBC 3.58 {M/mm3} (Abnormal) Range: 4.2-5.4 WBC 4.5 K/mm3 (Normal) Range: 4.4-11.0 [id number] CBC W/Diff, Auto - EPLAB Comments: At [facility] receive CBC w/auto Differential ONLY. Physicianwill place an order for a manual differential or Pathologistreview at his discretion. [facility]. [address] [place] [address] [place] [address] RECORDING STUDIO SET UP WORKER: OMERO ZAMUDIO DO PH:[phone] performed at:[facility] [address] [place] [address] Absolute Neut 4.4 {X10_3/uL} (Normal) Range: 2.0-7.7 BASO% 1.1 % (Abnormal) Range: 0-1 EO% 3.0 % (Normal) Range: 0-5 MONO% 7.7 % (Normal) Range: 0-10 LY% 12.4 % (Abnormal) Range: 19-41 NEUT% 75.8 % (Abnormal) Range: 47-70 MPV 6.5 fL (Normal) Range: 6.2-12.0 PLT 181 K/mm3 (Normal) Range: 150-450 RDW 14.6 % (Normal) Range: 11.6-14.6 MCHC 32.4 g/dL (Normal) Range: 32-36 MCH 29.6 pg (Normal) Range: 27.0-32.0 MCV 91.4 fL (Normal) Range: 81-99 HCT 33.5 % (Abnormal) Range: 37-47 HGB 10.8 g/dL (Abnormal) Range: 12.0-15.0 RBC 3.67 {M/mm3} (Abnormal) Range: 4.2-5.4 WBC 5.8 K/mm3 (Normal) Range: 4.4-11.0 [id number] Prothrombin Time w/INR Comments: Test performed at:[facility] [address] [place], [place] [id number] INR 2.8 (Normal) PROTIME 29.7 s (Abnormal) Range: 11.7-14.9 [id number] CBC W/Diff, Auto - EPLAB Only Comments: At [facility] Oncologypatients receive CBC w/auto Differential ONLY. Physicianwill place an order for a manual differential or Pathologistreview at his discretion. [facility]. [address] [place] [address] [place] [address] RECORDING STUDIO SET UP WORKER: OMERO ZAMUDIO DO PH:[phone] performed at:[facility] [address] [place] [address] Absolute Neut 2.8 {X10_3/uL} (Normal) Range: 2.0-7.7 BASO% 1.4 % (Abnormal) Range: 0-1 EO% 5.8 % (Abnormal) Range: 0-5 MONO% 11.1 % (Abnormal) Range: 0-10 LY% 17.5 % (Abnormal) Range: 19-41 NEUT% 64.2 % (Normal) Range: 47-70 MPV 6.1 fL (Abnormal) Range: 6.2-12.0 PLT 202 K/mm3 (Normal) Range: 150-450 RDW 13.9 % (Normal) Range: 11.6-14.6 MCHC 33.1 g/dL (Normal) Range: 32-36 MCH 29.5 pg (Normal) Range: 27.0-32.0 MCV 89.3 fL (Normal) Range: 81-99 HCT 31.2 % (Abnormal) Range: 37-47 HGB 10.3 g/dL (Abnormal) Range: 12.0-15.0 RBC 3.49 {M/mm3} (Abnormal) Range: 4.2-5.4 WBC 4.4 K/mm3 (Normal) Range: 4.4-11.0 64-Thh-164278:35 CBC W/Diff, Auto - EPLAB Comments: At [facility] patientsreceive CBC w/auto Differential ONLY. Physician will placean order for a manual differential or Pathologist review athis discretion. [facility]. [address] [address] [place] [address] RECORDING STUDIO SET UP WORKER: OMERO ZAMUDIO DO PH:[phone] performed at:[facility] [address] [place], [place] [id number] Absolute Neut 3.5 {X10_3/uL} (Normal) Range: 2.0-7.7 BASO% 0.9 % (Normal) Range: 0-1 EO% 5.2 % (Abnormal) Range: 0-5 MONO% 9.6 % (Normal) Range: 0-10 LY% 15.9 % (Abnormal) Range: 19-41 NEUT% 68.4 % (Normal) Range: 47-70 MPV 7.0 fL (Normal) Range: 6.2-12.0 PLT 146 K/mm3 (Abnormal) Range: 150-450 RDW 13.2 % (Normal) Range: 11.6-14.6 MCHC 33.8 g/dL (Normal) Range: 32-36 MCH 30.3 pg (Normal) Range: 27.0-32.0 MCV 89.8 fL (Normal) Range: 81-99 HCT 28.2 % (Abnormal) Range: 37-47 HGB 9.5 g/dL (Abnormal) Range: 12.0-15.0 RBC 3.14 {M/mm3} (Abnormal) Range: 4.2-5.4 WBC 5.1 K/mm3 (Normal) Range: 4.4-11.0 70-Rbc-277587:35 Comprehensive Metabolic Profil Comments: PLEASE SEND COPY OF LIPID, CMP,TSH TO DR Prieto Specimen #1, #2 or #3? 1Test performed at:[facility] [address] [place] [address] GAP 12 (Normal) Range: 5-15 CO2 19.0 mmol/L (Abnormal) Range: 21.0-32.0 CL 110 mmol/L (Abnormal) Range: 98-107 K 4.0 mmol/L (Normal) Range: 3.5-5.1 NA 141 mmol/L (Normal) Range: 136-145 T BILI 0.30 mg/dL (Normal) Range: 0.00-4.00 ALT 28 U/L (Normal) Range: 12-78 ALK P 74 U/L (Normal) Range: 50-136 AST 28 U/L (Normal) Range: 15-37 CA 8.0 mg/dL (Abnormal) Range: 8.5-10.1 A/G 1.2 {RATIO} (Normal) Range: 0.9-2.4 GLOB 2.8 g/dL (Normal) Range: 2.7-4.2 ALB 3.4 g/dL (Normal) Range: 3.4-5.0 T PROT 6.2 g/dL (Abnormal) Range: 6.4-8.2 BUN/CRE 13.6 {RATIO} (Normal) Range: 10-20 CREAT,SERUM 2.5 mg/dL (Abnormal) Range: 0.6-1.0 BUN 34 mg/dL (Abnormal) Range: 7-18 GLU 111 mg/dL (Abnormal) Range: 70-110 Comments: Fasting Glucose result from 110 to <126 mg/dLsuggests IMPAIRED HOMEOSTASIS per A.D.A. criteria. 32-Kqt-194397:35 LDH 222 U/L (Normal) Comments: PLEASE SEND COPY OF LIPID, CMP,TSH TO DR Prieto Specimen #1, #2 or #3? 1Test performed at:[facility] [address] [place] [address] Range: 87-241 52-Lao-624397:35 Lipid Profile Comments: PLEASE SEND COPY OF LIPID, CMP,TSH TO DR Prieto Specimen #1, #2 or #3? 1Test performed at:[facility] [address] [place] [address] VLDL 42 mg/dL (Abnormal) Range: 5-40 LDL 49 mg/dL (Normal) Range: 0-130 HDL 72 mg/dL (Normal) Comments: Reference Range HDL <40 mg/dL Low HDL Cholesterol HDL >or= 60 mg/dL High HDL Cholesterol TRIG 210 mg/dL (Abnormal) Range: 0-199 Comments: Serum Triglycerides Reference Interval Normal <150 mg/dL Borderline high 150 - 199 mg/dL High 200 - 499 mg/dL Very High > or = 500 mg/dL CHOL 163 mg/dL (Normal) Comments: <200 mg/dL Desirable 200-240 mg/dL Borderline >240 mg/dL High Risk 15-Iiu-401316:35 Prothrombin Time w/INR Comments: Test performed at:[facility] [address] [place] [address] INR 2.3 (Normal) PROTIME 25.4 s (Abnormal) Range: 11.7-14.9 94-Iyq-013889:35 Thyroid Stim Hormone (TSH) Comments: PLEASE SEND COPY OF LIPID, CMP,TSH TO DR Prieto Specimen #1, #2 or #3? 1Test performed at:[facility] [address] [place] [address] TSH 2.09 {uIU/mL} (Normal) Range: 0.358-3.74 13-Mkv-921367:35 Uric Acid Comments: PLEASE SEND COPY OF LIPID, CMP,TSH TO DR Prieto Specimen #1, #2 or #3? 1Test performed at:[facility] [address] [place] [address] URIC 6.5 mg/dL (Abnormal) Range: 2.6-6.0 21-Wsy-336759:10 Prothrombin Time w/INR Comments: Test performed at:[facility] [address] [place] [address] INR 2.8 (Normal) PROTIME 29.0 s (Abnormal) Range: 11.7-14.9 6-Znk-248206:35 Prothrombin Time w/INR Comments: Test performed at:[facility] [address] [place] [address] INR 2.9 (Normal) PROTIME 30.5 s (Abnormal) Range: 11.7-14.9 14-Wmx-902326:15 Prothrombin Time w/INR Comments: Test performed at:[facility] [address] [place] [address] INR 1.9 (Normal) PROTIME 21.4 s (Abnormal) Range: 11.7-14.9 64-Hcb-325335:45 Prothrombin Time w/INR Comments: Test performed at:[facility] [address] [place] [address] INR 4.6 (Abnormal) Comments: RESULTS CALLED TO AMOR STANTON 10/22/14 Vilma Vidal.REPORT READ BACK BY SAME. PROTIME 42.9 s (Abnormal) Range: 11.7-14.9 02-Knw-483656:30 CBC W/Diff, Auto - EPLAB Comments: [facility] Outpatient [facility] patientsreceive CBC w/auto Differential ONLY. Physician will placean order for a manual differential or Pathologist review athis discretion. Only [facility]. [address] [place] [address] [place] [address] RECORDING STUDIO SET UP WORKER: OMERO ZAMUDIO DO PH:[phone] performed at:[facility] [address] [place] [address] Absolute Neut 3.9 {X10_3/uL} (Normal) Range: 2.0-7.7 BASO% 1.4 % (Abnormal) Range: 0-1 EO% 10.0 % (Abnormal) Range: 0-5 MONO% 9.3 % (Normal) Range: 0-10 LY% 13.0 % (Abnormal) Range: 19-41 NEUT% 66.4 % (Normal) Range: 47-70 MPV 6.6 fL (Normal) Range: 6.2-12.0 PLT 218 K/mm3 (Normal) Range: 150-450 RDW 12.0 % (Normal) Range: 11.6-14.6 MCHC 33.5 g/dL (Normal) Range: 32-36 MCH 29.7 pg (Normal) Range: 27.0-32.0 MCV 88.7 fL (Normal) Range: 81-99 HCT 30.5 % (Abnormal) Range: 37-47 HGB 10.2 g/dL (Abnormal) Range: 12.0-15.0 RBC 3.44 {M/mm3} (Abnormal) Range: 4.2-5.4 WBC 5.8 K/mm3 (Normal) Range: 4.4-11.0 79-Adv-248144:30 Magnesium Comments: Test performed at:[facility] [address] [place] [address] [place] [address] MG 1.6 mg/dL (Abnormal) Range: 1.8-2.4 :30 Protein+Creatinine Ratio,Urine Comments: Test performed at:[facility] [address] [place] [place] [address] [place] [address] PROT:CRE RATIO 498 {mg/g_CRE} (Abnormal) Range: 0-200 PROTEIN,UR.RAN. 67.7 mg/dL (Abnormal) UR CREAT 135.7 mg/dL (Normal) 25-Iya-682939:30 Prothrombin Time w/INR Comments: Test performed at:[facility] [address] [place] [address] INR 2.9 (Normal) PROTIME 30.0 s (Abnormal) Range: 11.7-14.9 21-Dcr-527862:30 PTH,INTACT Comments: Test performed at:[facility] [address] [place] [address] PTH,Intact 63 pg/mL (Normal) Range: 14-72 52-Knb-918016:30 Renal Profile Comments: Test performed at:[facility] [address] [place] [place] [address] [place] [address] CO2 20.0 mmol/L (Abnormal) Range: 21.0-32.0 CL 107 mmol/L (Normal) Range: 98-107 K 4.2 mmol/L (Normal) Range: 3.5-5.1 NA 136 mmol/L (Normal) Range: 136-145 PHOS 3.2 mg/dL (Normal) Range: 2.5-4.9 CA 8.7 mg/dL (Normal) Range: 8.5-10.1 ALB 3.7 g/dL (Normal) Range: 3.4-5.0 BUN/CRE 12.4 {RATIO} (Normal) Range: 10-20 CREAT,SERUM 2.5 mg/dL (Abnormal) Range: 0.6-1.0 BUN 31 mg/dL (Abnormal) Range: 7-18 GLU 83 mg/dL (Normal) Range: 70-110 25-Uxf-133406:30 Vitamin D,25 Hydroxy Comments: Test performed at:[facility] [address] [place] [address] Vitamin D 25-OH 36.5 ng/mL (Normal) Comments: Vitamin D 25(OH) Status Range Deficiency <20 ng/mL (50nmol/L) Insuffciency 20 - 30 ng/mL (50 - 75 nmol/L) Sufficiency 30 - 100 ng/mL (75 - 250 nmol/L) Toxicity >100 ng/mL (>250 nmol/L) 46-Arc-466620:27 Prothrombin Time w/INR Comments: Test performed at:[facility] [address] [facility] [place] [address] INR 2.8 (Normal) PROTIME 29.0 s (Abnormal) Range: 11.7-14.9 92-Tox-235810:55 Prothrombin Time w/INR Comments: Test performed at:[facility] [address] [facility] [place] [place] [address] INR 2.4 (Normal) PROTIME 26.4 s (Abnormal) Range: 11.7-14.9 80-Kxb-783909:05 CBC W/Diff, Auto - EPLAB Comments: At [facility] Outpatient [facility] patientsreceive CBC w/auto Differential ONLY. Physician will placean order for a manual differential or Pathologist review athis discretion. [facility]. [address] [place] [address] [place] [address] RECORDING STUDIO SET UP WORKER: OMERO ZAMUDIO DO PH:[phone] performed at:[facility] [address] [place] [address] Absolute Neut 3.2 {X10_3/uL} (Normal) Range: 2.0-7.7 BASO% 1.0 % (Normal) Range: 0-1 EO% 6.3 % (Abnormal) Range: 0-5 MONO% 8.2 % (Normal) Range: 0-10 LY% 19.0 % (Normal) Range: 19-41 NEUT% 65.5 % (Normal) Range: 47-70 MPV 5.4 fL (Abnormal) Range: 6.2-12.0 PLT 186 K/mm3 (Normal) Range: 150-450 RDW 12.4 % (Normal) Range: 11.6-14.6 MCHC 33.0 g/dL (Normal) Range: 32-36 MCH 30.4 pg (Normal) Range: 27.0-32.0 MCV 92.3 fL (Normal) Range: 81-99 HCT 30.4 % (Abnormal) Range: 37-47 HGB 10.0 g/dL (Abnormal) Range: 12.0-15.0 RBC 3.29 {M/mm3} (Abnormal) Range: 4.2-5.4 WBC 4.9 K/mm3 (Normal) Range: 4.4-11.0 01-Cmp-959936:05 Prothrombin Time w/INR Comments: Test performed at:[facility] [address] [facility] [place] [place] [address] INR 1.7 (Normal) PROTIME 20.2 s (Abnormal) Range: 11.7-14.9 33-Wyt-532871:50 Prothrombin Time w/INR Comments: Test performed at:[facility] [address] [facility] [place] [place] [address] INR 2.6 (Normal) PROTIME 28.1 s (Abnormal) Range: 11.7-14.9 92-Vye-173802:25 FECAL OCCULT HGB ASSAY- tubes sent home (52468) FECAL OCCULT HGB ASSAY, QUAL, 1-3 SIMULTANEOU negative (Normal) 70-Vqk-276336:07 CALCIFIDIOL (84846) VIT D 25 Comments: PATIENT WAS FASTINGPERFORMED BY: Anomo Ruzunk7043 [facility] [id number] Vitamin D, 25-Hydroxy 37.0 ng/mL (Normal) Range: 30.0-100.0 Comments: Vitamin D deficiency has been defined by the [place] of[facility] Centercine and an Endocrine Society practice guideline as alevel of serum 25-OH vitamin D less than 20 ng/mL (1,2).The Endocrine Society went on to further define vitamin Dinsufficiency as a level between 21 and 29 ng/mL (2).1. IOM ([place] of Medicine). 2010. Dietary reference intakes for calcium and D. [place]: The National Academies Press.2. Lluvia MF, Wade WING, Tanner VENEGAS, et al. Evaluation, treatment, and prevention of vitamin D deficiency: an Endocrine Society clinical practice guideline. JCEM. 2010; 96(7):1911-30. 04-Bzf-297806:07 VITAMIN B-12 (CYANOCOBALAMIN) Comments: PATIENT WAS FASTINGPERFORMED BY: Anomo Zfezax5709 [facility] [id number] ([id number]) Vitamin B12 637 pg/mL (Normal) Range: 211-946 51-Udd-648471:07 TSH (29722) Comments: PATIENT WAS FASTINGPERFORMED BY: Anomo Pmsaxb4125 [facility] [id number] TSH 0.778 {uIU/mL} (Normal) Range: 0.450-4.500 75-Yuh-982575:07 METABOLIC PANEL, COMPREHENSIVE Comments: PATIENT WAS FASTINGPERFORMED BY: Anomo Skwjdk0509 [facility] [id number] ([id number]) ALT (SGPT) 31 [iU]/L (Normal) Range: 0-32 AST (SGOT) 25 [iU]/L (Normal) Range: 0-40 Alkaline Phosphatase, S 67 [iU]/L (Normal) Range: 39-117 Bilirubin, Total 0.3 mg/dL (Normal) Range: 0.0-1.2 A/G Ratio 2.4 (Normal) Range: 1.1-2.5 Globulin, Total 2.0 g/dL (Normal) Range: 1.5-4.5 Albumin, Serum 4.7 g/dL (Normal) Range: 3.5-4.8 Protein, Total, Serum 6.7 g/dL (Normal) Range: 6.0-8.5 Calcium, Serum 10.0 mg/dL (Normal) Range: 8.6-10.2 Carbon Dioxide, Total 16 mmol/L (Abnormal) Range: 18-29 Chloride, Serum 107 mmol/L (Normal) Range: 97-108 Potassium, Serum 4.6 mmol/L (Normal) Range: 3.5-5.2 Sodium, Serum 139 mmol/L (Normal) Range: 134-144 BUN/Creatinine Ratio 13 (Normal) Range: 11-26 eGFR If Africn Am 18 mL/min/1.73 (Abnormal) eGFR If NonAfricn Am 16 mL/min/1.73 (Abnormal) Creatinine, Serum 2.75 mg/dL (Abnormal) Range: 0.57-1.00 BUN 36 mg/dL (Abnormal) Range: 8-27 Glucose, Serum 81 mg/dL (Normal) Range: 65-99 :07 LIPID PANEL (70523) Comments: PATIENT WAS FASTINGPERFORMED BY: LabCoHoly Name Medical CenterRcilgt6085 [facility] [id number] LDL/HDL Ratio 0.9 {ratio_units} (Normal) Range: 0.0-3.2 Comments: LDL/HDL Ratio Men Women 1/2 Avg.Risk 1.0 1.5 Av g.Risk 3.6 3.2 2X Avg.Risk 6.2 5.0 3X Avg.Risk 8.0 6.1 LDL Cholesterol Calc 80 mg/dL (Normal) Range: 0-99 VLDL Cholesterol Richard 27 mg/dL (Normal) Range: 5-40 HDL Cholesterol 86 mg/dL (Normal) Comments: According to ATP-III Guidelines, HDL-C >59 mg/dL is considered anegative risk factor for CHD. Triglycerides 136 mg/dL (Normal) Range: 0-149 Cholesterol, Total 193 mg/dL (Normal) Range: 100-199 04-Lxj-262422:07 CBC W/AUTO DIFF WBC Comments: PATIENT WAS FASTINGPERFORMED BY: LabCoUNM Children's Psychiatric CenterUmcwnz1415 [facility]University [facility] [id number] Information: [id number] (94361) Immature Grans (Abs) 0.0 {x10E3/uL} (Normal) Range: 0.0-0.1 Immature Granulocytes 0 % (Normal) Baso (Absolute) 0.0 {x10E3/uL} (Normal) Range: 0.0-0.2 Eos (Absolute) 0.2 {x10E3/uL} (Normal) Range: 0.0-0.4 Monocytes(Absolute) 0.4 {x10E3/uL} (Normal) Range: 0.1-0.9 Lymphs (Absolute) 0.6 {x10E3/uL} (Abnormal) Range: 0.7-3.1 Neutrophils (Absolute) 5.8 {x10E3/uL} (Normal) Range: 1.4-7.0 Basos 0 % (Normal) Eos 3 % (Normal) Monocytes 6 % (Normal) Lymphs 8 % (Normal) Neutrophils 83 % (Normal) Platelets 185 {x10E3/uL} (Normal) Range: 150-379 RDW 15.3 % (Normal) Range: 12.3-15.4 MCHC 32.9 g/dL (Normal) Range: 31.5-35.7 MCH 29.6 pg (Normal) Range: 26.6-33.0 MCV 90 fL (Normal) Range: 79-97 Hematocrit 31.6 % (Abnormal) Range: 34.0-46.6 Hemoglobin 10.4 g/dL (Abnormal) Range: 11.1-15.9 RBC 3.51 {x10E6/uL} (Abnormal) Range: 3.77-5.28 WBC 7.0 {x10E3/uL} (Normal) Range: 3.4-10.8 9-Qzz-302237:55 ECBCD Comments: At [facility] patientsreceive CBC w/auto Differential ONLY. Physician will placean order for a manual differential or Pathologist review athis discretion.[facility].[address] [place] [address] DIRECTOR: OMERO ZAMUDIO DO PH:[phone] ANC 4.0 {X10_3/uL} (Normal) Range: 2.0-7.7 B% 1.0 % (Normal) Range: 0-1 E% 3.3 % (Normal) Range: 0-5 M% 9.0 % (Normal) Range: 0-10 L% 15.4 % (Abnormal) Range: 19-41 N% 71.4 % (Abnormal) Range: 47-70 MPV 6.5 fL (Normal) Range: 6.2-12.0 PLT 166 K/mm3 (Normal) Range: 150-450 RDW 13.4 % (Normal) Range: 11.6-14.6 MCHC 33.4 g/dL (Normal) Range: 32-36 MCH 31.1 pg (Normal) Range: 27.0-32.0 MCV 93.0 fL (Normal) Range: 81-99 HCT 29.2 % (Abnormal) Range: 37-47 HGB 9.7 g/dL (Abnormal) Range: 12.0-15.0 RBC 3.13 {M/mm3} (Abnormal) Range: 4.2-5.4 WBC 5.6 K/mm3 (Normal) Range: 4.4-11.0 :55 PT INR 3.2 (Normal) PTP 32.3 s (Abnormal) Range: 11.7-14.9 :38 PT INR 2.8 (Normal) PTP 29.3 s (Abnormal) Range: 11.7-14.9 :56 PT Comments: PT HAD FPT 41.6/INR 3.[address] DELEON OFFICE X4 [facility] [place]. WILL TRY AGAIN INR 3.0 (Normal) PTP 30.9 s (Abnormal) Range: 11.7-14.9 :45 IINR 3.70 (Abnormal) Comments: Critical Value> 3.5 :45 IPTF 41.6 {SEC} (Abnormal) Range: 11.9-14.4 Comments: Reference Range11.9 - 14.4 :45 ECBCD Comments: At [facility] Outpatient [facility] patientsreceive CBC w/auto Differential ONLY. Physician will placean order for a manual differential or Pathologist review athis discretion.[facility].[address] [place] [address]JSJ DIRECTOR: OMERO ROBB MURRIETA PH:[phone] ANC 5.0 {X10_3/uL} (Normal) Range: 2.0-7.7 B% 0.9 % (Normal) Range: 0-1 E% 2.0 % (Normal) Range: 0-5 M% 6.8 % (Normal) Range: 0-10 L% 8.3 % (Abnormal) Range: 19-41 N% 81.9 % (Abnormal) Range: 47-70 MPV 6.5 fL (Normal) Range: 6.2-12.0 PLT 156 K/mm3 (Normal) Range: 150-450 RDW 13.0 % (Normal) Range: 11.6-14.6 MCHC 33.0 g/dL (Normal) Range: 32-36 MCH 30.4 pg (Normal) Range: 27.0-32.0 MCV 92.1 fL (Normal) Range: 81-99 HCT 29.7 % (Abnormal) Range: 37-47 HGB 9.8 g/dL (Abnormal) Range: 12.0-15.0 RBC 3.23 {M/mm3} (Abnormal) Range: 4.2-5.4 WBC 6.1 K/mm3 (Normal) Range: 4.4-11.0 45-Ool-572808:55 ECBCD Comments: At [facility] patientsreceive CBC w/auto Differential ONLY. Physician will placean order for a manual differential or Pathologist review athis discretion.[facility].[address] [place] [address]FHP DIRECTOR: OMERO ZAMUDIO DO PH:[phone] ANC 4.0 {X10_3/uL} (Normal) Range: 2.0-7.7 B% 1.1 % (Abnormal) Range: 0-1 E% 3.4 % (Normal) Range: 0-5 M% 9.0 % (Normal) Range: 0-10 L% 14.5 % (Abnormal) Range: 19-41 N% 72.1 % (Abnormal) Range: 47-70 MPV 6.8 fL (Normal) Range: 6.2-12.0 PLT 132 K/mm3 (Abnormal) Range: 150-450 RDW 13.5 % (Normal) Range: 11.6-14.6 MCHC 33.9 g/dL (Normal) Range: 32-36 MCH 31.1 pg (Normal) Range: 27.0-32.0 MCV 91.7 fL (Normal) Range: 81-99 HCT 28.6 % (Abnormal) Range: 37-47 HGB 9.7 g/dL (Abnormal) Range: 12.0-15.0 RBC 3.12 {M/mm3} (Abnormal) Range: 4.2-5.4 WBC 5.5 K/mm3 (Normal) Range: 4.4-11.0 :55 PT INR 2.9 (Normal) PTP 29.8 s (Abnormal) Range: 11.7-14.9 :12 CBCD ALC 0.77 {X10_3/ul} (Abnormal) Range: 0.83-4.51 ANC 5.5 {X10_3/uL} (Normal) Range: 2.0-7.7 IG% 0.300 % (Normal) Range: 0.0-0.9 Comments: IG% - Immature Granulocytes (promyelocytes, myelocytes andmetamyelocytes) > 1% indicates that a LEFT SHIFT is Present. B% 0.1 % (Normal) Range: 0-1 E% 0.9 % (Normal) Range: 0-5 M% 6.6 % (Normal) Range: 0-10 L% 11.4 % (Abnormal) Range: 19-41 N% 80.7 % (Abnormal) Range: 47-70 MPV 9.9 fL (Normal) Range: 6.2-12.0 PLT 166 K/mm3 (Normal) Range: 150-450 RDWSD 49.3 fL (Abnormal) Range: 35.1-43.9 RDWCV 14.4 % (Normal) Range: 11.6-14.6 MCHC 32.0 {g/gl} (Normal) Range: 32-36 MCH 29.9 pg (Normal) Range: 27.0-32.0 MCV 93.4 fL (Normal) Range: 81-99 HCT 29.7 % (Abnormal) Range: 37-47 HGB 9.5 g/dL (Abnormal) Range: 12.0-15.0 RBC 3.18 {M/mm3} (Abnormal) Range: 4.2-5.4 WBC 6.8 K/mm3 (Normal) Range: 4.4-11.0 :12 CMP GAP 7 (Normal) Range: 5-15 CO2 19.0 mmol/L (Abnormal) Range: 21.0-32.0 CL 111 mmol/L (Abnormal) Range: 98-107 K 4.5 mmol/L (Normal) Range: 3.5-5.1 NA 137 mmol/L (Normal) Range: 136-145 BIT 0.30 mg/dL (Normal) Range: 0.00-4.00 ALT 32 U/L (Normal) Range: 12-78 ALK 65 U/L (Normal) Range: 50-136 AST 20 U/L (Normal) Range: 15-37 CA 8.1 mg/dL (Abnormal) Range: 8.5-10.1 AG 1.5 {RATIO} (Normal) Range: 0.9-2.4 GLOB 2.5 g/dL (Abnormal) Range: 2.7-4.2 ALB 3.8 g/dL (Normal) Range: 3.4-5.0 TPROT 6.3 g/dL (Abnormal) Range: 6.4-8.2 BC 17.0 {RATIO} (Normal) Range: 10-20 CREAT 2.7 mg/dL (Abnormal) Range: 0.6-1.0 BUN 46 mg/dL (Abnormal) Range: 7-18 GLU 82 mg/dL (Normal) Range: 70-110 :12 LDH 239 U/L (Normal) Range: 87-241 :12 PT INR 2.0 (Normal) PTP 22.3 s (Abnormal) Range: 11.7-14.9 :12 URIC 5.5 mg/dL (Normal) Range: 2.6-6.0 :25 PT INR 1.8 (Normal) PTP 21.1 s (Abnormal) Range: 11.7-14.9 :55 ECBCD Comments: At [facility] Outpatient [facility] patientsreceive CBC w/auto Differential ONLY. Physician will placean order for a manual differential or Pathologist review athis discretion.[facility].[address] [place] [address]HQB DIRECTOR: OMERO ZAMUDIO DO PH:[phone] ANC 3.7 {X10_3/uL} (Normal) Range: 2.0-7.7 B% 1.2 % (Abnormal) Range: 0-1 E% 5.5 % (Abnormal) Range: 0-5 M% 7.6 % (Normal) Range: 0-10 L% 14.0 % (Abnormal) Range: 19-41 N% 71.8 % (Abnormal) Range: 47-70 MPV 6.1 fL (Abnormal) Range: 6.2-12.0 PLT 137 K/mm3 (Abnormal) Range: 150-450 RDW 14.3 % (Normal) Range: 11.6-14.6 MCHC 34.3 g/dL (Normal) Range: 32-36 MCH 30.6 pg (Normal) Range: 27.0-32.0 MCV 89.2 fL (Normal) Range: 81-99 HCT 30.7 % (Abnormal) Range: 37-47 HGB 10.5 g/dL (Abnormal) Range: 12.0-15.0 RBC 3.44 {M/mm3} (Abnormal) Range: 4.2-5.4 WBC 5.1 K/mm3 (Normal) Range: 4.4-11.0 [id number] PT INR 1.9 (Normal) PTP 21.4 s (Abnormal) Range: 11.7-14.9 [id number] ECBCD Comments: At [facility] patientsreceive CBC w/auto Differential ONLY. Physician will placean order for a manual differential or Pathologist review athis discretion.[facility].[id number] [place] [address] DIRECTOR: OMERO ZAMUDIO DO PH:[phone] ANC 2.6 {X10_3/uL} (Normal) Range: 2.0-7.7 B% 1.2 % (Abnormal) Range: 0-1 E% 6.9 % (Abnormal) Range: 0-5 M% 10.2 % (Abnormal) Range: 0-10 L% 23.1 % (Normal) Range: 19-41 N% 58.6 % (Normal) Range: 47-70 MPV 6.4 fL (Normal) Range: 6.2-12.0 PLT 153 K/mm3 (Normal) Range: 150-450 RDW 15.5 % (Abnormal) Range: 11.6-14.6 MCHC 33.6 g/dL (Normal) Range: 32-36 MCH 30.3 pg (Normal) Range: 27.0-32.0 MCV 90.3 fL (Normal) Range: 81-99 HCT 32.5 % (Abnormal) Range: 37-47 HGB 10.9 g/dL (Abnormal) Range: 12.0-15.0 RBC 3.60 {M/mm3} (Abnormal) Range: 4.2-5.4 WBC 4.5 K/mm3 (Normal) Range: 4.4-11.0 :30 PT INR 1.6 (Normal) PTP 19.5 s (Abnormal) Range: 11.7-14.9 [id number] CMP Comments: DR. PARRA ORDERED CBCD, CMP, URIC, LDHDR. RHEA ORDERED CBC, VITD, RENAL, CRE/PRO RATIO, PTH, MGSerial Specimen #1, #2 or #3? 1 GAP 5 (Normal) Range: 5-15 CO2 23.0 mmol/L (Normal) Range: 21.0-32.0 CL 110 mmol/L (Abnormal) Range: 98-107 K 4.4 mmol/L (Normal) Range: 3.5-5.1 NA 138 mmol/L (Normal) Range: 136-145 BIT 0.50 mg/dL (Normal) Range: 0.00-1.00 ALT 31 U/L (Normal) Range: 12-78 ALK 56 U/L (Normal) Range: 45-117 AST 24 U/L (Normal) Range: 15-37 CA 8.5 mg/dL (Normal) Range: 8.5-10.1 AG 1.5 {RATIO} (Normal) Range: 0.9-2.4 GLOB 2.4 g/dL (Abnormal) Range: 2.7-4.2 ALB 3.6 g/dL (Normal) Range: 3.4-5.0 TPROT 6.0 g/dL (Abnormal) Range: 6.4-8.2 BC 14.8 {RATIO} (Normal) Range: 10-20 ECRCL 17.69 ml/min (Normal) CREAT 2.3 mg/dL (Abnormal) Range: 0.6-1.0 BUN 34 mg/dL (Abnormal) Range: 7-18 GLU 81 mg/dL (Normal) Range: 70-110 :05 ECBCD ANC 3.0 {X10_3/uL} (Normal) Range: 2.0-7.7 B% 1.3 % (Abnormal) Range: 0-1 E% 3.7 % (Normal) Range: 0-5 M% 7.7 % (Normal) Range: 0-10 L% 15.3 % (Abnormal) Range: 19-41 N% 72.1 % (Abnormal) Range: 47-70 MPV 7.6 fL (Normal) Range: 6.2-12.0 PLT 144 K/mm3 (Abnormal) Range: 150-450 RDW 17.0 % (Abnormal) Range: 11.6-14.6 MCHC 33.0 g/dL (Normal) Range: 32-36 MCH 29.9 pg (Normal) Range: 27.0-32.0 MCV 90.6 fL (Normal) Range: 81-99 HCT 31.3 % (Abnormal) Range: 37-47 HGB 10.3 g/dL (Abnormal) Range: 12.0-15.0 RBC 3.46 {M/mm3} (Abnormal) Range: 4.2-5.4 WBC 4.2 K/mm3 (Abnormal) Range: 4.4-11.0 :05 LDH 296 U/L (Abnormal) Comments: DR. PARRA ORDERED CBCD, CMP, URIC, LDHDR. RHEA ORDERED CBC, VITD, RENAL, CRE/PRO RATIO, PTH, MGSerial Specimen #1, #2 or #3? 1 Range: 87-241 :05 MG 1.5 mg/dL (Abnormal) Comments: DR. PARRA ORDERED CBCD, CMP, URIC, LDHDR. RHEA ORDERED CBC, VITD, RENAL, CRE/PRO RATIO, PTH, MGSerial Specimen #1, #2 or #3? 1 Range: 1.8-2.4 :05 PHOS 2.8 mg/dL (Normal) Comments: DR. PARRA ORDERED CBCD, CMP, URIC, LDHDR. RHEA ORDERED CBC, VITD, RENAL, CRE/PRO RATIO, PTH, MGSerial Specimen #1, #2 or #3? 1 Range: 2.5-4.9 :05 PROCRER tPROCRER 342 {mg/g_CRE} (Abnormal) Range: 0-200 PROUR 30.9 mg/dL (Abnormal) CREU 90.2 mg/dL (Normal) : PTHIN 77 pg/mL (Abnormal) Range: 14-72 : URIC 5.7 mg/dL (Normal) Comments: DR. PARRA ORDERED CBCD, CMP, URIC, LDHDR. RHEA ORDERED CBC, VITD, RENAL, CRE/PRO RATIO, PTH, MGSerial Specimen #1, #2 or #3? 1 Range: 2.6-6.0 :05 VITD 42.4 mg/mL (Normal) Comments: Vitamin D 25(OH) Status RangeDeficiency <20 ng/mL (50nmol/L)Insuffciency 20 - 30 ng/mL (50 - 75 nmol/L)Sufficiency 30 - 100 ng/mL (75 - 250 nmol/L)Toxicity >100 ng/mL (>250 nmol/L) :33 ECBCD Comments: At [facility], Dr Guerra patients receiveCBC w/auto Differential ONLY. He will place an order for amanual differential or Pathologist review at his discretion.[facility].[address] [place], [place] [address]VUG DIRECTOR: OMERO ZAMUDIO DO PH:[phone] ANC 4.4 {X10_3/uL} (Normal) Range: 2.0-7.7 B% 1.2 % (Abnormal) Range: 0-1 E% 6.6 % (Abnormal) Range: 0-5 M% 7.7 % (Normal) Range: 0-10 L% 12.8 % (Abnormal) Range: 19-41 N% 71.6 % (Abnormal) Range: 47-70 MPV 6.8 fL (Normal) Range: 6.2-12.0 PLT 161 K/mm3 (Normal) Range: 150-450 RDW 17.6 % (Abnormal) Range: 11.6-14.6 MCHC 33.1 g/dL (Normal) Range: 32-36 MCH 27.9 pg (Normal) Range: 27.0-32.0 MCV 84.4 fL (Normal) Range: 81-99 HCT 33.0 % (Abnormal) Range: 37-47 HGB 10.9 g/dL (Abnormal) Range: 12.0-15.0 RBC 3.91 {M/mm3} (Abnormal) Range: 4.2-5.4 WBC 6.1 K/mm3 (Normal) Range: 4.4-11.0 :33 PT INR 1.3 (Normal) PTP 16.5 s (Abnormal) Range: 11.7-14.9 Comments: Please note revised PROTIME reference range yvjeihcdx49/14/15. 50-Bue-753381:30 CUUR URC See Note (Normal) Comments: ORGANISM 1: Mixed Gram Positive OrganismsColony Count 1000-10,000MIX CONTAM Mixed Contaminants. Submit new specimen if indicated. :39 UA Comments: How was Urine Obtained? CLEAN CATCH FELTON 25 /ul (Abnormal) UOB Negative /ul (Normal) ISHA Negative (Normal) UROBU Normal mg/dL (Normal) JOSE 5.0 (Normal) Range: 5.0 - 8.0 uPROTU 30 mg/dL (Abnormal) SGU 1.020 (Normal) Range: 1.002-1.030 KETU Negative mg/dL (Normal) BILIU Negative mg/dL (Normal) GLUR Normal mg/dL (Normal) UCLAR Sl. Cloudy (Normal) UCOL Yellow (Normal) 34-Gil-084840:31 PT INR 2.6 (Normal) PTP 26.0 s (Abnormal) Range: 11.9-14.4 9-Opr-519699:26 UNILAT LT DIAG DIGITAL & CAD Radiology See Note Comments: MAMMOGRAPHY - UNILATERAL DIAGNOSTIC: Left BREAST REASON FOR EXAM: Female, 77 years old. Followup for left nodulardensity. PERTINENT HISTORY: Non-contributory. TECHNIQUE: Digital examination. Com Report (Normal) pression spot views and 90? viewsofthe left breast were obtained. CAD: CAD was performed on this study. COMPARISON: Comparison is made with prior study dated March 01, 2013. FINDINGS:The breast composition is composed of scattered fibroglandular tissuesranging from 25% to 50% of the breast. There is a persistent 1.3 cm nodule in the inferior medial aspect of thelef t breast. The ultrasound did not demonstrate any mass lesion. A biopsyis recommended. No other significant abnormalities are identified. IMPRESSION:Persistent nodular density in the left breast as described. A biopsy isrecommended. ASSESSMENT CATEGORY:BIRADS Category 4: Suspicious Abnormality - Biopsy Should Be Considered.A letter regarding these results will [facility] the [facility]. Approximately 10% of breast cancers are not detected by mammography. Anormal mammogram should not delay biopsy of a cl inically suspiciousabnormality. Signed:Vishal Mendez M.D.March 08, 2013 at 2:10:47 PM [id number] Signed GP/GP If you are the referring physician and would like to consult with t heradiologist who provided this interpretation, please contact Varun Jeronimo at [phone]. If this radiologist is unavailable, youwill be directed to another radiologist to assist. If you a re a patient with a question regarding this report, pleasecontactyour referring physician directly. Professional Interpretation Provided By: [id number], Phone , These docu ments contain legally protected and confidential healthinformation intended only for the use of the individual or entity namedabove. If you are not the intended recipient, you are hereby notifiedthatany disclosure, copying, distribution, or other use of these documents isstrictly prohibited. If you have received this information in error,pleasenotify the sender immediately and arrange for the return o r destructionofthese documents. Dictated on 03/08/13 1410 by Afshin Mendez MDscribed on 03/08/13 1414 by ITS IMPORTSign by Vishal Mendez MD on 03/08/13 1415 Sign by: Vishal Mendez MD 3-Ube-684841:01 BREAST UNILATERAL Radiology See Note Comments: PROCEDURE: ULTRASOUND BREAST(S) - Left REASON FOR EXAM: Female, 77 years old. Left breast nodule. TECHNIQUE: Axial and longitudinal images of the Left breast wereperformed with a high resolution Report (Normal) ultrasound transducer. COMPARISON: Comparison is made with prior mammogram done February. FINDINGS: LEFT BREAST:There is a 6 mm x 8 mm x 5 mm hypoechoic solid nodule adjacent to thenipple. This represents the finding on the mammogram. A biopsy isrecommended. IMPRESSION:Hypoechoic nodular density in the left breast as describ ed. A biopsy isrecommended. ASSESSMENT CATEGORY:BIRADS Category 4: Suspicious Abnormality - Biopsy Should Be Considered. Signed:Vishal Mendez M.D.March 08, 2013 at 2:13:37 PM [id number] Signed GP/GP If you are the referring physician and would like to consult with theradiologist who provided this interpretation, please contact Jo stack M.D. at [phone]. If this radiologist is unavailable, youwill be directed to another radiologist to assist. If you are a patient with a question regarding this report, pleasecontactyour referri ng physician directly. Professional Interpretation Provided By: [id number], Phone , These documents contain legally protected and confidential healthinformation intended o nly for the use of the individual or entity namedabove. If you are not the intended recipient, you are hereby notifiedthatany disclosure, copying, distribution, or other use of these documents isstrictl y prohibited. If you have received this information in error,pleasenotify the sender immediately and arrange for the return or destructionofthese documents. Dictated on 03/08/13 1413 by Andrea MARLOW, Elenaranscribed on 03/08/13 1417 by ITS IMPORTSign by Vishal Mendez MD on 03/08/13 141 Sign by: Vishal Mendez MD 7-Jel-540832:02 BILAT SCRN DIGITAL & CAD Radiology Report See Note Comments: MAMMOGRAPHY - BILATERAL SCREENING REASON FOR EXAM: Female, 77 years old. Routine annual screeningexamination. PERTINENT HISTORY: Aunt with breast cancer. TECHNIQUE: Digital examination. Mediolat (Normal) eral oblique (MLO) andcraniocaudad (CC) views of both breasts were obtained. CAD: CAD wasperformed on this study. COMPARISON: Comparison is made with prior study dated November 06, 2009. FINDINGS:The breast composition is composed of scattered fibroglandular tissuesranging from 25% to 50% of the breast. 9.8-cm nodular density in the inferior retroareolar region of the leftbreast. Correlation with ultrasound is recommended. A erik catheter isseen in the left axillary region. No other significant abnormalities are identified. IMPRE SSION:Nodular density in the left breast as described. Correlation withultrasound is recommended. ASSESSMENT CATEGORY:BIRADS Category 0: Incomplete. Need additional imaging evaluation. Aletter regarding these results will be [facility] the patient [facility]. Approximately 10% of breast cancers are not detected by mammography. Anormal mammogram sh ould not delay biopsy of a clinically suspiciousabnormality. Signed:Vishal Mendez M.D.March 01, 2013 at 12:50:31 PM [id number] Signed GP/GP If you are the referring physician an d would like to consult with theradiologist who provided this interpretation, please contact Varun Jeronimo at [phone]. If this radiologist is unavailable, youwill be directed to another r adiologist to assist. If you are a patient with a question regarding this report, pleasecontactyour referring physician directly. Professional Interpretation Provided By: [email or web address], Phone [phone], These documents contain legally protected and confidential healthinformation intended only for the use of the individual or entity namedabove. If you are not the intended recipient, you are hereby notifiedthatany disclosure, copying, distribution, or other use of these documents isstrictly prohibited. If you have received this information in error,pleasenotify the sender immediatel y and arrange for the return or destructionofthese documents. Dictated on 03/01/13 1250 by Elena Mendez MDranscribed on 03/01/13 1256 by ITS IMPORTSign by Vishal Mendez MD on 03/01/13 12 58 Sign by: Vishal Mendez MD 52-Vwa-953400:38 FECAL OCCULT- Tubes sent home (74887) FECAL OCCULT HGB ASSAY, QUAL, 1-3 SIMULTANEOU negative (Normal) 00-Avg-633053:33 CHEST PA AND LATERAL Radiology Report See Note (Normal) Comments: PROCEDURE: X-RAY CHEST REASON FOR EXAM: Female, 76 years old. Rib pain on the right side, nohistory of injury. History of lymphoma. TECHNIQUE: Frontal and lateral views of the chest. COMPARISON: 10/01/12. FINDINGS:Left subclavian Port-A-Cath with its tip in the mid superior vena cava,unchanged. There is hyperinflation lung ashton. There is no demonstratedparenchymalabnormality. There is no d emonstrated pleural abnormality. Normal heart and pericardium. Normal mediastinum and elin. Normal visualized pulmonary arteries.Thereis atherosclerotic tortuosity of the aortic arch and descending tho racicaorta. There is an increased kyphosis of the thoracic spine. Two levelvertebroplasties in the mid and lower thoracic spine. The midthoracicvertebral plasty represents an interval change. Normal v isualized ribs,clavicles, and shoulders. There is no demonstrated abnormality of the visualized soft tissuestructures of the upper abdomen. IMPRESSION:Stable examination and no evidence of acute cardiop ulmonary disease. Signed:Marshall Chandler M.D.November 13, 2012 at 7:05:21 PM [id number] Signed SH/SH If you are the referring physician and would like to consult with theradiologist who provided this interpretation, please contact Varun Garcia at [phone]. If this radiologist is unavailable, youwillbe directed to another radiologist to assist. If you are a patient with a q uestion regarding this report, pleasecontactyour referring physician directly. Professional Interpretation Provided By: [email or web address], Phone , These documents contain legally protected and confidential healthinformation intended only for the use of the individual or entity namedabove. If you are not the intended recipient, you are hereby notifiedthatany disclosure, copying, distribution, or other use of these documents isstrictly prohibited. If you have received this information in error,pleasenotify the sender immediately and arrange for the return or destructionofthese documents. Dictated on 11/13/12 0956 by Marshall Chandler MDTranscribed on 11/13/121906 by ITS IMPORTSign by Ramesh MARLOWMarshall on 11/13/121907 Sign by: Ramesh MARLOWMarshall 62-Zwo-458518:40 ANURAG CULTURE-OTHER (40203) Comments: PATIENT NOT FASTINGPERFORMED BY: Lab[facility] [id number] [facility] [id number] Information: SRC: THROAT Result 1 RRF (Normal) Comments: Routine respiratory raegan Upper Respiratory Culture Final report (Normal) :48 Rapid Strep Test, Office (31170) Rapid Strep Test, Office Negative (Normal) 04-Apr-20128:05 Urinalysis, Office (21370) UA - BILIRUBIN Negative (Normal) UA - BLOOD Non Hemolyzed Moderate (Normal) UA - GLUCOSE Negative (Normal) UA - KETONES Negative mg/dL (Normal) UA - LEUKOCYTE ESTERASE Large (Normal) UA - NITRITE Negative (Normal) UA - PH 6.0 (Normal) UA - PROTEIN 300 mg/dL (Normal) UA - SPECIFIC GRAVITY 1.025 (Normal) URINE UROBILINGN TYSON TIMED Normal mg/dL (Normal) 99-Ocb-334615:40 PT (PROTHROMBIN TIME) Comments: PATIENT NOT FASTINGPERFORMED BY: [facility]CoHoly [facility] CenterDpcesn0430 [facility] [id number] Information: [id number] ([id number]) Prothrombin Time 13.4 {sec} (Abnormal) Range: 8.7-11.5 Comments: Effective June 20, 2011, the reference interval will be changing to: 9.1 - 12.0 INR 1.3 (Abnormal) Range: 0.8-1.2 Comments: Reference interval is for non-anticoagulated patients. . Suggested INR therapeutic range for Vitamin K anta gonist therapy: Standard Dose (moderate intensity therapeutic range): 2.0 - 3.0 Higher intensity therapeutic range 2.5 - 3.5 :25 INR ISTAT 1.00 (Normal) :25 PROTIME ISTAT 12.3 {SEC} (Normal) Range: 11.9-14.4 69-Wuy-38622:00 CHEST,1 VIEW (PORTABLE) Radiology Report See Note (Normal) Comments: PROCEDURE: X-RAY CHEST REASON FOR EXAM: Female, 75 years old. Status post port placement. TECHNIQUE: Portable AP view of the chest COMPARISON: October 30, 2006 FINDINGS:There has been interval pablo cement of a left subclavian portacatheter withthe tip at the caval atrial junction. The lungs are expanded. There is no demonstrated parenchymalabnormality.There is no demonstrated pleural abnormality. Normal heart and pericardium. Normal mediastinum and elin. Normal visualized pulmonary arteries.Normalvisualized aortic arch and descending thoracic aorta. Normal visualized thoracic spine. Normal vi sualized ribs, clavicles, andshoulders. There is no demonstrated abnormality of the visualized soft tissuestructures of the upper abdomen. IMPRESSION:Appropriate interval placement of left subclavian po rtacatheter. Thereisno evidence of acute cardiopulmonary disease. Dictated on 06/13/11 1128 by Ezequiel Bradley MDTranscribed on 06/14/11 0639 by ITS IMPORTSign by Ezequiel Bradley MD on 06/14/11 0640 Sign by: Ezequiel Bradley MD 06-Jun-20118:05 CBCD,SMEAR DIFF RED CELL MORPH SeeNote {NORMAL} (Normal) Comments: Result: NORM C+C PLT EST SeeNote (Normal) Comments: Result: ADEQUATE EOS 7 % (Abnormal) Range: 0-5 MONOCYTE 5 % (Normal) Range: 0-10 LYMPH 29 % (Normal) Range: 19-41 SEGS 59 % (Normal) Range: 47-70 CELLS COUNTED 100 (Normal) ABSOLUTE NEUT 2.3 3/uL (Normal) Range: 2.0-7.7 PLT 301 K/mm3 (Normal) Range: 150-450 RDW 14.5 % (Normal) Range: 11.6-14.6 MCHC 33.9 g/dL (Normal) Range: 32-36 MCH 28.8 pg (Normal) Range: 27.0-32.0 MCV 84.9 fL (Normal) Range: 81-99 HCT 36.4 % (Abnormal) Range: 37-47 HGB 12.3 g/dL (Normal) Range: 12.0-16.0 RBC 4.29 {M/mm3} (Normal) Range: 4.2-5.4 WBC 3.9 K/mm3 (Abnormal) Range: 4.4-11.0 :05 PRO TIME INR 1.9 (Normal) PROTIME 20.9 s (Abnormal) Range: 11.9-14.4 :05 PTT 37.6 s (Abnormal) Range: 24.1-36.2 :59 ABDOMEN/PELVIS WITH CONTRAST Radiology Report See Note Comments: PROCEDURE: CT ABDOMEN AND PELVIS WITH CONTRAST REASON FOR EXAM: Female, 75 years old. The patient has a history ofright groin mass. The patient has had prior lymphoma and colostomy. TECHNIQUE: Tr (Normal) ansaxial images were obtained from the dome of thediaphragmto the symphysis pubis with oral contrast. 100CC ml of Isovue 300contrastwas administered. Multiplanar coronal and sagittal images werereform atted. COMPARISON: Comparison is made with prior study dated October 30, 2006. FINDINGS:There is a minimal degree of right basilar linear atelectasis. Normal enhanced liver. Normal gallbladder and extra hepatic biliarysystem.Normal enhanced spleen. There is evidence of a small accessory spleen.Normal pancreas. Normal bilateral adrenal glands. Normal size of the right kidney. There is no right renal m ass. Thereareno right renal calculi. There is no right hydronephrosis. Normalvisualized right ureter. Normal size of the left kidney. There is no left renal mass. There arenoleft renal calculi. Th ere is no left hydronephrosis. Normal visualizedleft ureter. Normal visualized stomach. Normal small intestine. There is evidence ofa8.6 cm x 4.4 cm inhomogeneous soft tissue mass in the lower mid ab domenjust deep to the umbilicus. This is in keeping with the mesenteric massmost likely representing mesenteric lymphadenopathy. A colostomy seen inthe left lower quadrant. 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 There is no demonstrated peritoneal fluid. There is diffuse atherosclerotic calcification of the abdominal aorta,without a demonstrated aneurysm. Normal inferior vena cava. There isevidence of extensive retroperitoneal lymph adenopathy. Some lymph nodesare necrotic in the preaortic area. There is also evidence of mesentericlymph adenopathy. Lymphadenopathy is also seen in the salma-portalregion.Adenopathy is also seen in the right iliac region. Normal urinary bladder. There is evidence of enlarged lymph nodes in theright inguinal region. The largest measures 3.8-cm by 3 cm. This mostlikely corresponds to the palpable mass. There is no pelvic fluid. There are diffuse degenerative changes of the visualized lumbar spine. IMPRESSION:Extensive retroperitoneal and mesenteric lymphadenopathy.Lymphadenopathyis also seen in the right inguinal region and right iliac. Dictated on 05/30/11 1320 by Elena Mendez MDranscribed on 05/31/11 1118 by ITS IMPORTSign by Vishal Mendez MD on 05/31/11 1119 Sign by: Vishal Mendez MD 25-May-20 C-Reactive 64.1 mg/L Comments: PATIENT WAS FASTINGPERFORMED BY: [id number] [facility] [id number] 1112:16 Protein, Quant (Abnormal) Range: 0.0-4.9 36-Lys-046465:16 CBC With Differential/Platelet Comments: PATIENT WAS FASTINGPERFORMED BY: [id number] [facility] [id number] Immature Grans (Abs) 0.0 {x10E3/uL} (Normal) Range: 0.0-0.1 Immature Granulocytes 0 % (Normal) Range: 0-2 Baso (Absolute) 0.0 {x10E3/uL} (Normal) Range: 0.0-0.2 Eos (Absolute) 0.1 {x10E3/uL} (Normal) Range: 0.0-0.4 Monocytes(Absolute) 0.5 {x10E3/uL} (Normal) Range: 0.1-1.0 Lymphs (Absolute) 0.7 {x10E3/uL} (Normal) Range: 0.7-4.5 Neutrophils (Absolute) 3.9 {x10E3/uL} (Normal) Range: 1.8-7.8 Basos 0 % (Normal) Range: 0-3 Eos 2 % (Normal) Range: 0-7 Monocytes 10 % (Normal) Range: 4-13 Lymphs 13 % (Abnormal) Range: 14-46 Neutrophils 75 % (Abnormal) Range: 40-74 Platelets 257 {x10E3/uL} (Normal) Range: 140-415 RDW 15.1 % (Abnormal) Range: 11.7-15.0 MCHC 33.0 g/dL (Normal) Range: 32.0-36.0 MCH 28.6 pg (Normal) Range: 27.0-34.0 MCV 87 fL (Normal) Range: 80-98 Hematocrit 33.9 % (Abnormal) Range: 34.0-44.0 Hemoglobin 11.2 g/dL (Abnormal) Range: 11.5-15.0 RBC 3.91 {x10E6/uL} (Normal) Range: 3.80-5.10 WBC 5.3 {x10E3/uL} (Normal) Range: 4.0-10.5 60-Glw-004691:16 Comp. Metabolic Panel (14) Comments: PATIENT WAS FASTINGPERFORMED BY: [facility] [id number] ALT (SGPT) 12 [iU]/L (Normal) Range: 0-40 AST (SGOT) 18 [iU]/L (Normal) Range: 0-40 Alkaline Phosphatase, 58 [iU]/L (Normal) Range: 25-165 S Bilirubin, Total 0.5 mg/dL (Normal) Range: 0.0-1.2 A/G Ratio 1.5 (Normal) Range: 1.1-2.5 Globulin, Total 2.4 g/dL (Normal) Range: 1.5-4.5 Albumin, Serum 3.7 g/dL (Normal) Range: 3.5-4.8 Protein, Total, Serum 6.1 g/dL (Normal) Range: 6.0-8.5 Calcium, Serum 8.8 mg/dL (Normal) Range: 8.6-10.2 Carbon Dioxide, Total 25 mmol/L (Normal) Range: 20-32 Chloride, Serum 103 mmol/L (Normal) Range: 97-108 Potassium, Serum 3.7 mmol/L (Normal) Range: 3.5-5.2 Sodium, Serum 140 mmol/L (Normal) Range: 135-145 BUN/Creatinine Ratio 10 (Abnormal) Range: 11-26 eGFR If Africn Am 59 mL/min/1.73 Comments: Note: A persistent eGFR <60 mL/min/1.73 m2 (3 months or more) mayindicate chronic kidney disease. An eGFR >59 mL/min/1.73 m2 with anelevated urine protein also may indicate chronic kidney di sease.Calculated using CKD-EPI formula. (Abnormal) eGFR If NonAfricn Am 51 mL/min/1.73 (Abnormal) Creatinine, Serum 1.07 mg/dL Range: 0.57-1.00 (Abnormal) BUN 11 mg/dL (Normal) Range: 8-27 Glucose, Serum 100 mg/dL Range: 65-99 (Abnormal) LDH 341 [iU]/L Comments: PATIENT WAS FASTINGPERFORMED BY: [address] [id number] :16 (Abnormal) Range: 0-214 42-Ehn-899658:16 LDL Cholesterol (Direct) Comments: PATIENT WAS FASTINGPERFORMED BY: [address] [id number] LDL Chol. (Direct) 80 mg/dL (Normal) Range: 0-99 Sedimentation 30 mm/h (Normal) Comments: PATIENT WAS FASTINGPERFORMED BY: [address] [id number] 2:16 Rate-Westergren Range: 0-56 Written Authorization WAR (Normal) Comments: PATIENT WAS FASTINGPERFORMED BY: [address] [id number] 2:16 Comments: Written Authorization Received.Authorization received from original requisition [id number] by Matthew Moore [place] 9.2 mg/dL (Normal) Range: 8.5-10.1 :25 [place] 4804 5.5 mg/dL (Normal) Range: 4.5-5.6 :25 Comments: Performed at: [address] [id number] Director: Silke Mccrary MD, Phone: [phone] 02-Aql-409856:16 PT (PROTHROMBIN TIME) Comments: PATIENT NOT FASTINGPERFORMED BY: [facility]Co[facility] CenterTqwzdq6806 [facility] [id number] Information: [id number] ([id number]) Prothrombin Time 27.6 {sec} (Abnormal) Range: 8.7-11.5 INR 2.6 (Abnormal) Range: 0.8-1.2 Comments: Reference interval is for non-anticoagulated patients. . Suggested INR therapeutic range for Vitamin K anta gonist therapy: Standard Dose (moderate intensity therapeutic range): 2.0 - 3.0 Higher intensity therapeutic range 2.5 - 3.5 56-Pww-233047:15 COMP METABOLIC GAP 7 (Normal) Range: 5-15 CO2 29.0 mmol/L (Normal) Range: 21.0-32.0 CL 104 mmol/L (Normal) Range: 98-107 K 4.2 mmol/L (Normal) Range: 3.5-5.1 NA 140 mmol/L (Normal) Range: 136-145 T BILI 0.40 mg/dL (Normal) Range: 0.00-1.00 ALT 20 U/L (Normal) Range: 12-78 ALK P 60 U/L (Normal) Range: 50-136 AST 19 U/L (Normal) Range: 15-37 CA 11.2 mg/dL (Abnormal) Range: 8.5-10.1 A/G 0.9 {RATIO} (Normal) Range: 0.9-2.4 GLOB 3.7 g/dL (Normal) Range: 2.7-4.2 ALB 3.4 g/dL (Normal) Range: 3.4-5.0 T PROT 7.1 g/dL (Normal) Range: 6.4-8.2 BUN/CRE 12.5 {RATIO} (Normal) Range: 10-20 CREAT,SERUM 1.2 mg/dL (Abnormal) Range: 0.6-1.0 BUN 15 mg/dL (Normal) Range: 7-18 GLU 88 mg/dL (Normal) Range: 70-110 71-Nsz-76713:00 BRAIN W/WO CONTRAST Radiology Report See Note (Normal) Comments: PROCEDURE: MRI BRAIN WITH AND WITHOUT CONTRAST REASON FOR EXAM: Female, 75 years old new onset headaches. TECHNIQUE: Standardized multiplanar fat and water weighted pulsesequences were obtained. 1 6ml ml of Magnevist contrast material wasadministered intravenously for the contrast portion of the examination. COMPARISON: None. FINDINGS:There is mild cerebral atrophy with widening of the extra-ax ial spacesandventricular dilatation. There are multiple white matter hyperintensities,distributed throughout the deep white matter tracts of the cerebralhemispheres, consistent with moderate chronic wh ite matter ischemicchanges. There is no extra-axial fluid accumulation. Normal flow voids within the major intracranial circulation suggestingpatency by spin echo criteria. Normal venous enhancement. There is noenhancing intra-axial or extra-axial abnormality. Normal sella turcica, pituitary gland, infundibular stalk, optic chiasmandhypothalamus. Normal tectal plate and pineal gland. Normal midbrai n, monserrat and medulla. Normal cerebellum. Normal basalcisterns. Normal bilateral temporal bones. Normal bilateral internal auditorycanals. Normal bilateral orbital contents. Normal visualized paranasa l sinuses. Normal calvarium and skull base. Normal visualized soft tissuestructures.Normal visualized upper cervical spine. IMPRESSION:Patchy scattered nonspecific white matter abnormalities suggestive ofmoderate small vessel ischemic disease. No diffusion restriction tosuggest acute infarction Dictated on 03/17/112 by ELLIOTT MCKENNA MDTranscribed on 03/17/112047 by ITS IMPORTSign by ELLIOTT VARMA MD on 03/17/112048 Sign by: ELLIOTT MCKENNA MD 29-Vwb-884173:03 PT (Prothrobim Time) Comments: PATIENT NOT FASTINGPERFORMED BY: [facility]Co[facility] CenterNxofdy8900 [facility] [id number] Information: [id number] ([id number]) Prothrombin Time 12.2 {sec} (Abnormal) Range: 8.7-11.5 INR 1.2 (Normal) Range: 0.8-1.2 Comments: Reference interval is for non-anticoagulated patients. . Suggested INR therapeutic range for Vitamin K anta gonist therapy: Standard Dose (moderate intensity therapeutic range): 2.0 - 3.0 Higher intensity therapeutic range 2.5 - 3.5 94-Izb-26470:55 DEXA BONE DENSITY STUDY (HP) Radiology Report See Note (Normal) Comments: PROCEDURE: DUAL ENERGY X-RAY ABSORPTIOMETRY / DEXA. REASON FOR EXAM: Female, 75 years old. The patient is postmenopausal. TECHNIQUE: Bone Mineral Density (BMD) measurements of lumbar s pine andbila teral hips were obtained. COMPARISON: Comparison is made with prior study dated August 01, 2007. FINDINGS: Lumbar Spine (L1-L4): g/cm2 (1.111) / T- score (-0.6) / Z-score (0.8)Left Femur Total: g /cm2 (0.850) / T-score (-1.3) / Z-score (0.2)Right Femur Total: g/cm2 (0.781) / T-score( - 1.8) / Z-score (-0.4)Since prior study, there has been an improvement of 18.2% in the bonedensity. IMP RESSION:The patient is considered osteopenic, as outlined above, according toWorldHealth Organization (WHO) criteria. Fracture risk is moderate. Reference Information:The T-score is the number of stand reji deviations above or below thestandard which is normal for young adults at their peak bone mineraldensity. The World Health Organization (WHO) interprets the T-scores asfollows: Above -1 No rmal bone densityBetween -1 and -2.5 OsteopeniaEqual to / or below -2.5 Osteoporosis As a practical clinical guideline, osteopenia may be graded as follows:Mild -1 through -1.5Moderate -1.6 through -2.0Severe -2.1 through -2.4 The Z-score is the number of standard deviations above or below age-matchedcontrols. A Z-score of less than -1.5 would be considered abnormal. References:1. NIH Osteopor osis and Related Bone Diseases http://www.osteo.org2. International Society for Clinical Densitometry http://www.iscd.org3. National Osteoporosis Foundation http://www.nof.org Dictated on 02/10/11 1013 by Andrea MARLOW,GabrieleTranscribed on 07/14/11 1117 by ITS IMPORTSign by Vishal Mendez MD on 02/10/111116 Sign by: Vishal Mendez MD :51 Vitamin D Hydroxy ([id number]) Comments: PATIENT WAS FASTINGPERFORMED BY: [facility] [id number] [facility] [id number] Vitamin D, 25-Hydroxy 35.7 ng/mL (Normal) Range: 32.0-100.0 Comments: Recent studies consider the lower limit of 32.0 ng/mL to be athreshold for optimal health.Sameer BW. J Nutr. 2004;135(2):317-22. :51 MICROALBUMIN: CREATININE RATIO Comments: PATIENT WAS FASTINGPERFORMED BY: [employer] [facility] Pfyzlh2530 [facility] [id number] ([id number]) AND (70276) Creatinine, Urine 205.5 mg/dL (Normal) Range: 15.0-278.0 Microalb/Creat Ratio 6.2 {mg/g_creat} (Normal) Range: 0.0-30.0 Microalbumin, Urine 12.8 ug/mL (Normal) Range: 0.0-17.0 :51 METABOLIC PANEL, COMPREHENSIVE Comments: PATIENT WAS FASTINGPERFORMED BY: [facility] Vkrhjm6040 [facility] [id number] (76251) Alkaline Phosphatase, S 54 [iU]/L (Normal) Range: 25-165 ALT (SGPT) 20 [iU]/L (Normal) Range: 0-40 AST (SGOT) 25 [iU]/L (Normal) Range: 0-40 A/G Ratio 1.4 (Normal) Range: 1.1-2.5 Albumin, Serum 3.9 g/dL (Normal) Range: 3.5-4.8 Bilirubin, Total 0.4 mg/dL (Normal) Range: 0.0-1.2 Calcium, Serum 8.8 mg/dL (Normal) Range: 8.6-10.2 Carbon Dioxide, Total 23 mmol/L (Normal) Range: 20-32 Globulin, Total 2.7 g/dL (Normal) Range: 1.5-4.5 Protein, Total, Serum 6.6 g/dL (Normal) Range: 6.0-8.5 BUN 16 mg/dL (Normal) Range: 8-27 BUN/Creatinine Ratio 13 (Normal) Range: 11-26 Chloride, Serum 105 mmol/L (Normal) Range: 97-108 Creatinine, Serum 1.28 mg/dL (Abnormal) Range: 0.57-1.00 eGFR If Africn Am 48 mL/min/1.73 (Abnormal) Comments: Note: A persistent eGFR <60 mL/min/1.73 m2 (3 months or more) mayindicate chronic kidney disease. An eGFR >59 mL/min/1.73 m2 with anelevated urine protein also may indicate chronic kidney disease.Calculated using CKD-EPI formula. eGFR If NonAfricn Am 41 mL/min/1.73 (Abnormal) Potassium, Serum 4.3 mmol/L (Normal) Range: 3.5-5.2 Sodium, Serum 140 mmol/L (Normal) Range: 135-145 Glucose, Serum 88 mg/dL (Normal) Range: 65-99 10-Oom-92963:51 CBC WITH MANUAL DIFF ([id number]) Comments: PATIENT WAS FASTINGPERFORMED BY: LabCoHoly Name Medical CenterMdfamd7450 [facility] [id number] Baso (Absolute) 0.0 {x10E3/uL} (Normal) Range: 0.0-0.2 Eos (Absolute) 0.4 {x10E3/uL} (Normal) Range: 0.0-0.4 Immature Grans (Abs) 0.0 {x10E3/uL} (Normal) Range: 0.0-0.1 Immature Granulocytes 0 % (Normal) Range: 0-2 Comments: Please note reference interval change Monocytes(Absolute) 0.5 {x10E3/uL} (Normal) Range: 0.1-1.0 Lymphs (Absolute) 0.7 {x10E3/uL} (Normal) Range: 0.7-4.5 Neutrophils (Absolute) 3.3 {x10E3/uL} (Normal) Range: 1.8-7.8 Basos 0 % (Normal) Range: 0-3 Eos 9 % (Abnormal) Range: 0-7 Lymphs 14 % (Normal) Range: 14-46 Monocytes 10 % (Normal) Range: 4-13 Neutrophils 67 % (Normal) Range: 40-74 Platelets 271 {x10E3/uL} (Normal) Range: 140-415 RDW 13.5 % (Normal) Range: 11.7-15.0 Hematocrit 38.0 % (Normal) Range: 34.0-44.0 MCH 28.7 pg (Normal) Range: 27.0-34.0 MCHC 33.2 g/dL (Normal) Range: 32.0-36.0 MCV 87 fL (Normal) Range: 80-98 Hemoglobin 12.6 g/dL (Normal) Range: 11.5-15.0 RBC 4.39 {x10E6/uL} (Normal) Range: 3.80-5.10 WBC 5.0 {x10E3/uL} (Normal) Range: 4.0-10.5 :51 TSH ([id number]) Comments: PATIENT WAS FASTINGPERFORMED BY: [facility]University [facility] [id number] TSH 1.320 {uIU/mL} (Normal) Range: 0.450-4.500 :51 LIPID PANEL (84774) Comments: PATIENT WAS FASTINGPERFORMED BY: [employer] [facility] [id number] HDL Cholesterol 51 mg/dL (Normal) Comments: According to ATP-III Guidelines, HDL-C >59 mg/dL is considered anegative risk factor for CHD. LDL Cholesterol Calc 60 mg/dL (Normal) Range: 0-99 LDL/HDL Ratio 1.2 {ratio_units} (Normal) Range: 0.0-3.2 VLDL Cholesterol Richard 32 mg/dL (Normal) Range: 5-40 Cholesterol, Total 143 mg/dL (Normal) Range: 100-199 Triglycerides 161 mg/dL (Abnormal) Range: 0-149 44-Kvf-058408:23 PT (Prothrobim Time) (12850) Comments: INR; PATIENT NOT FASTINGPERFORMED BY: ViRTUAL INTERACTiVE Pnjjuf9702 [facility] [id number] Prothrombin Time 28.6 {sec} (Abnormal) Range: 8.7-11.5 INR 2.7 (Abnormal) Range: 0.8-1.2 Comments: Reference interval is for non-anticoagulated patients. . Suggested INR therapeutic range for Vitamin K anta gonist therapy: Standard Dose (moderate intensity therapeutic range): 2.0 - 3.0 Higher intensity therapeutic range 2.5 - 3.5 :30 PT (PROTHROMBIN TIME) Comments: PATIENT NOT FASTINGPERFORMED BY: AnomoHoly Name Medical CenterFbmucq3519 [facility] [id number] Information: [id number] ([id number]) Prothrombin Time 19.9 {sec} (Abnormal) Range: 8.7-11.5 INR 1.9 (Abnormal) Range: 0.8-1.2 Comments: Reference interval is for non-anticoagulated patients. . Suggested INR therapeutic range for Vitamin K anta gonist therapy: Standard Dose (moderate intensity therapeutic range): 2.0 - 3.0 Higher intensity therapeutic range 2.5 - 3.5 82-Osp-043830:19 Prothrombin Time (PT) Comments: PERFORMED BY: Anomo Nbxjbi9150 [facility] [id number] Prothrombin Time 26.5 {sec} (Abnormal) Range: 8.7-11.5 INR 2.5 (Abnormal) Range: 0.8-1.2 Comments: Reference interval is for non-anticoagulated patients. . Suggested INR therapeutic range for Vitamin K anta gonist therapy: Standard Dose (moderate intensity therapeutic range): 2.0 - 3.0 Higher intensity therapeutic range 2.5 - 3.5 :22 Prothrombin Time (PT) Comments: PERFORMED BY: AnomoHoly Name Medical CenterHnqglp0836 [facility] [id number] Prothrombin Time 12.9 {sec} (Abnormal) Range: 8.7-11.5 INR 1.2 (Normal) Range: 0.8-1.2 Comments: Reference interval is for non-anticoagulated patients. . Suggested INR therapeutic range for Vitamin K anta gonist therapy: Standard Dose (moderate intensity therapeutic range): 2.0 - 3.0 Higher intensity therapeutic range 2.5 - 3.5 2-Fdm-711968:28 Prothrombin Time (PT) Comments: PERFORMED BY: [facility]6370 [facility] [id number] Prothrombin Time 13.8 {sec} (Abnormal) Range: 8.7-11.5 INR 1.3 (Abnormal) Range: 0.8-1.2 Comments: Reference interval is for non-anticoagulated patients. . Suggested INR therapeutic range for Vitamin K anta gonist therapy: Standard Dose (moderate intensity therapeutic range): 2.0 - 3.0 Higher intensity therapeutic range 2.5 - 3.5 92-Psm-293088:45 Prothrombin Time (PT) Comments: PERFORMED BY: [facility]6370 [facility] [id number] Prothrombin Time 17.9 {sec} (Abnormal) Range: 8.7-11.5 INR 1.7 (Abnormal) Range: 0.8-1.2 Comments: Reference interval is for non-anticoagulated patients. . Suggested INR therapeutic range for Vitamin K anta gonist therapy: Standard Dose (moderate intensity therapeutic range): 2.0 - 3.0 Higher intensity therapeutic range 2.5 - 3.5 92-Tja-53680:00 UPPER EXT/NO JT/W/O Radiology Report See Note (Normal) Comments: CLINICAL:73 year old female with a bulge in the deltoid area. No known injury.Painful when reaching up. MRI UPPER EXTREMITY LEFT HUMERUS TECHNIQUE:Standardized fat and water weighted pulse sequences we re obtained in jtj9hxcvdwelra planes. A skin marker was placed in the lateral aspect ofthearm. COMPARISON:None. FINDINGS:There is normal fat accumulation in the subcutaneous tissues, withoutevidence of a well encapsulated lipoma. There is no demonstrated solid,cystic mass. Normal pectoralis tendon insertion, without a tendon tear orabnormality. Normal latissimus dorsi tendon insertion, without a tend on tear orabnormality. Normal teres major tendon insertion, without a tendinosis or tear. Normal deltoid muscle, without muscular edema or atrophy. Normal long and short heads of the biceps muscle with a normal musclebelly, without muscular edema or atrophy. Normal coracobrachialis muscle, without muscular edema or atrophy. Normal brachialis muscle, without muscular edema or atrophy. Normal triceps br achii muscle, with normal medial, lateral and longheads,without edema or atrophy. Normal visualized neurovascular bundles of the brachial arteries, veinswith normal visualized median and ulnar nerves. N ormal visualized radial collateral artery and radial nerve. Normal humerus, with normal periosteum, cortex and cancellous marrowedemawithout an osseous abnormality. IMPRESSION:No evidence of soft tissue mass or bony lesion. Dictated on 07/12/10 0753 by Brayden GerardoTranscribed on 07/12/10 0753 by Jazmin TOUSSAINT by Brayden Gerardo on 07/12/10 1333 Sign by: Brayden Gerardo :00 HIP, MIN 2 VIEWS Radiology Report See Note (Normal) Comments: CLINICAL:Pain. X-RAY EXAMINATION: RIGHT HIP TECHNIQUE:Two views of the hip. COMPARISON:None. FINDINGS:Normal femoral head, neck, intertrochanteric region and visualizedproximalfemur. Normal acetabulum. There is mild articular joint space narrowing. Normal visualized superior and inferior pubic rami and ischialtuberosities. Normal visualized soft tissue structures of the hip. IMPRESSION:Mild degenerati ve disease. Dictated on 07/09/10 123 by Mukund AguileraTranscribed on 07/09/10 123 by Jazmin TOUSSAINT by Mukund Aguilera on 07/12/10 0911 Sign by: Mukund Aguilera 03-Teh-84239:00 L/S SPINE,MIN 4 VIEWS Radiology Report See Note (Normal) Comments: CLINICAL:Pain. X-RAY EXAMINATION: LUMBAR SPINE TECHNIQUE:Five views (AP, Lateral, oblique and coned down lumbosacral) [facility]. COMPARISON:None. FINDINGS:There is generalized osteopenia. The re is no acute fracture ordislocation. There is normal alignment and lordosis. There iscalcification of the aorta and iliac arteries. There is mild narrowingatL5 -- S1. IMPRESSION:Osteopenia and dege nerative disease, no fracture. Left lower quadrant ostomy noted. Dictated on 07/09/10 1235 by Mukund AguileraTranscribed on 07/09/10 1235 by INTERFACE,MCKESSONSign by Mukund Aguilera on 07/12/10910 Sign by: Mukund Aguilera :00 PELVIS,1 OR 2 VIEWS Radiology Report See Note (Normal) Comments: CLINICAL:Pain. X-RAY EXAMINATION: PELVIS TECHNIQUE:Single AP view.COMPARISON:None. FINDINGS:Mild osteopenia. Mild degenerative change lower lumbar spine and hips.Left lower quadrant ostomy is noted. M oderate stool in the rectum. Noacute pathology. IMPRESSION:No acute pathology. Dictated on 07/09/10 1236 by Mukund AguileraTranscribed on 07/09/10 1236 by Jazmin TOUSSAINT by Dianne Aguilera ll on 07/12/10910 Sign by: Mukund Aguilera 3-Wlp-602135:33 Prothrombin Time (PT) Comments: PERFORMED BY: [facility] [id number] Prothrombin Time 24.6 {sec} (Abnormal) Range: 8.7-11.5 INR 2.3 (Abnormal) Range: 0.8-1.2 Comments: Reference interval is for non-anticoagulated patients. . Suggested INR therapeutic range for Vitamin K anta gonist therapy: Standard Dose (moderate intensity therapeutic range): 2.0 - 3.0 Higher intensity therapeutic range 2.5 - 3.5 :36 Prothrombin Time (PT) Comments: PERFORMED BY: Tiggly70 [facility] SiteExcell Tower PartnersY[facility] [id number] Prothrombin Time 34.1 {sec} (Abnormal) Range: 8.7-11.5 INR 3.2 (Abnormal) Range: 0.8-1.2 Comments: Reference interval is for non-anticoagulated patients..Suggested INR therapeutic range for Vitamin Kantagonist therapy:Standard Dose (moderate intensitytherapeutic range): 2.0 - 3.0Higher intensity therapeutic range 2.5 - 3.5 :03 Prothrombin Time (PT) Comments: PERFORMED BY: [facility] [id number] Prothrombin Time 29.1 {sec} (Abnormal) Range: 8.7-11.5 INR 2.7 (Abnormal) Range: 0.8-1.2 Comments: Reference interval is for non-anticoagulated patients..Suggested INR therapeutic range for Vitamin Kantagonist therapy:Standard Dose (moderate intensitytherapeutic range): 2.0 - 3.0Higher intensity therapeutic range 2.5 - 3.5 42-Xhb-879594:59 Prothrombin Time (PT) Comments: PERFORMED BY: [facility]6370 [facility] [id number] INR 1.8 (Abnormal) Range: 0.8-1.2 Comments: Reference interval is for non-anticoagulated patients..Suggested INR therapeutic range for Vitamin Kantagonist therapy:Standard Dose (moderate intensitytherapeutic range): 2.0 - 3.0Higher intensity therapeutic range 2.5 - 3.5 Prothrombin Time 18.9 {sec} Range: 8.7-11.5 (Abnormal) 30-Mar-2010 Triiodothyronine,Free, 2.3 pg/mL (Normal) Comments: PERFORMED BY: [facility]6370 [facility] [id number] 10:59 Serum Range: 2.0-4.4 51-Gfp-555897:59 TSH+Free T4 Comments: PERFORMED BY: [facility]6370 [facility] [id number] T4,Free(Direct) 1.31 ng/dL (Normal) Range: 0.82-1.77 TSH 2.940 {uIU/mL} (Normal) Range: 0.450-4.500 61-Qta-016445:04 Prothrombin Time (PT) Comments: PERFORMED BY: [facility]6370 [facility] [id number] Prothrombin Time 15.6 {sec} (Abnormal) Range: 8.7-11.5 INR 1.5 (Abnormal) Range: 0.8-1.2 Comments: Reference interval is for non-anticoagulated patients..Suggested INR therapeutic range for Vitamin Kantagonist therapy:Standard Dose (moderate intensitytherapeutic range): 2.0 - 3.0Higher intensity therapeutic range 2.5 - 3.5 :38 Prothrombin Time (PT) Comments: PERFORMED BY: NUVIA [facility]6370 [facility] [id number] Prothrombin Time 20.2 {sec} (Abnormal) Range: 8.7-11.5 INR 2.0 (Abnormal) Range: 0.8-1.2 Comments: Reference interval is for non-anticoagulated patients..Suggested INR therapeutic range for Vitamin Kantagonist therapy:Standard Dose (moderate intensitytherapeutic range): 2.0 - 3.0Higher intensity therapeutic range 2.5 - 3.5 3-Nvi-662804:03 Microscopic Examination Comments: PATIENT WAS FASTINGPERFORMED BY: NUVIA [facility]6370 [facility] [id number] Bacteria None seen (Normal) Epithelial Cells (non renal) 0-10 {/hpf} (Normal) Range: 0 - 10 Mucus Threads Present (Normal) RBC 11-30 {/hpf} (Abnormal) Range: 0 - 3 WBC >30 {/hpf} (Abnormal) Range: 0 - 5 :03 NMR LipoProfile Comments: PATIENT WAS FASTINGPERFORMED BY: [employer] Zvp1388 [facility] [id number] BY: [facility]6370 [facility] [id number] Information: [id number] HDL Size 8.8 nm (Abnormal) Comments: Small LDL-P, LDL Particle Size, Large HDL-P, Large VLDL-PVLDL Size, HDL Size, HDL Particle, and LP-IR Scorehave been validated by [employer] but not cleared by US FDA;the clinical utility of these test results has not been fully established. LP-IR Score 41 (Normal) Comments: The LP-IR Score combines the information from Large VLDL-P,Small LDL-P, Large HDL-P, VLDL Size, LDL Size and HDL Sizeto give improved assessment of insulin resistance anddiabetes risk.------ INTERPRETATIVE INFORMATIONPARTICLE CONCENTRATION AND SIZE<--Lower CVD Risk Higher CVD Risk-->LDL AND HDL PARTICLES Percentile in Reference Popula tiHDL-P (total) High 75th 50th 25th Low>34.9 34.9 30.5 26.7 <26.7.Small LDL-P Low 25th 50th 75th High<117 117 527 839 >83 9.LDL Size <-Large (Pattern A)-> <-Small (Pattern B)->23.0 20.6 20.5 19.0 INSULIN RESISTANCE / DIABETES RISK Je MIKAELDAMIAN<--Insulin Sensitive Insulin Resistant-->Percentile in Reference PopulationLarge VLDL-P Low 25th 50th 75th High<0.9 0.9 2.7 6.9 >6.9.Small L DL-P Low 25th 50th 75th High<117 117 527 839 >839.Large HDL-P High 75th 50th 25th Low>7.3 7.3 4.8 3.1 <3.1.VLDL Size Small 25th 50th 75th Large<42.4 42.4 46.6 52.5 >52.5.LDL Size Large 75th 50th 25th Small>21.2 21.2 20.8 20.4 <2 0.4.HDL Size Large 75th 50th 25th Small>9.6 9.6 9.2 8.9 >8.9Insulin Resistance ScoreLP-IR SCORE Low 25th 50th 75th High<27 27 45 63 >63 Large HDL-P 6.5 umol/L (Normal) Large VLDL-P 1.0 nmol/L (Normal) LDL Size 20.8 nm (Normal) Small LDL-P 529 nmol/L (Abnormal) VLDL Size 47.4 nm (Abnormal) HDL-P (Total) 41.6 umol/L (Normal) LDL Size 20.8 nm (Normal) LDL-P 983 nmol/L (Normal) Comments: Low < 1000Moderate 1000 - 1299Borderline-High 1300 - 1599High 1600 - 2000Very High > 2000. Small LDL-P 529 nmol/L (Abnormal) HDL-C 55 mg/dL (Normal) LDL-C 68 mg/dL (Normal) Comments: .Optimal < 100Above optimal 100 - 129Borderline 130 - 159High 160 - 189Very high > 189. Triglycerides 97 mg/dL (Normal) Cholesterol, Total 142 mg/dL (Normal) Written Authorization WAR (Normal) Comments: PATIENT WAS FASTINGPERFORMED BY: Ana [employer] Lpu6168 [facility] [id number] BY: NUVIA Anomokayleen ChristiansonNtdwap[address] [place] [address] [id number] :03 Comments: Written Authorization Received.Authorization received from TEMI MAYNARD [id number] by Sen Rose 0-Oxz-780500:32 Prothrombin Time (PT) Comments: PERFORMED BY: NUVIA Christiansonlin6370 [facility] [id number] Prothrombin Time 26.6 {sec} (Abnormal) Range: 8.7-11.5 INR 2.7 (Abnormal) Range: 0.8-1.2 Comments: Reference interval is for non-anticoagulated patients..Suggested INR therapeutic range for Vitamin Kantagonist therapy:Standard Dose (moderate intensitytherapeutic range): 2.0 - 3.0Higher intensity therapeutic range 2.5 - 3.5 60-Nua-229739:40 Prothrombin Time (PT) Comments: PERFORMED BY: NUVIA ZOCKO Bkzyrt6275 [facility] [id number] Prothrombin Time 26.4 {sec} (Abnormal) Range: 8.7-11.5 INR 2.7 (Abnormal) Range: 0.8-1.2 Comments: Reference interval is for non-anticoagulated patients..Suggested INR therapeutic range for Vitamin Kantagonist therapy:Standard Dose (moderate intensitytherapeutic range): 2.0 - 3.0Higher intensity therapeutic range 2.5 - 3.5 :16 Prothrombin Time (PT) Comments: PERFORMED BY: [facility]omoHoly Name Medical CenterNifkyv2919 [facility] [id number] Prothrombin Time 14.1 {sec} (Abnormal) Range: 8.7-11.5 INR 1.4 (Abnormal) Range: 0.8-1.2 Comments: Reference interval is for non-anticoagulated patients..Suggested INR therapeutic range for Vitamin Kantagonist therapy:Standard Dose (moderate intensitytherapeutic range): 2.0 - 3.0Higher intensity therapeutic range 2.5 - 3.5 69-Fkc-333273:04 PT (Prothrobim Time) Comments: inr; PATIENT NOT FASTINGPERFORMED BY: [facility] [employer] [id number] Information: ADD DRAW FEE [id number] AND [id number] [id number] (19876) Prothrombin Time 36.2 {sec} (Abnormal) Range: 8.7-11.5 INR 3.7 (Abnormal) Range: 0.8-1.2 Comments: Client Requested FlagReference interval is for non-anticoagulated patients..Suggested INR therapeutic range for Vitamin Kantagonist therapy:Standard Dose (moderate intensitytherapeutic range): 2.0 - 3.0Higher intensity therapeutic range 2.5 - 3.5 0-Lxg-251242:03 TSH (29260) Comments: PATIENT WAS FASTINGPERFORMED BY: Harbor MedTechMike [place] [id number] [facility] [id number] TSH 0.329 {uIU/mL} (Abnormal) Range: 0.450-4.500 1-Apr-381294:03 URINALYSIS, W/ MICRO (91895) Comments: PATIENT WAS FASTINGPERFORMED BY: [facility] MedTechMike [place] [id number] [facility] [id number] Bilirubin Negative (Normal) Microscopic Examination See below: (Normal) Nitrite, Urine Negative (Normal) Occult Blood 2+ (Abnormal) Urobilinogen,Semi-Qn 0.2 mg/dL (Normal) Range: 0.0-1.9 Glucose Negative (Normal) Ketones Negative (Normal) Protein 1+ (Abnormal) WBC Esterase 3+ (Abnormal) Appearance Clear (Normal) pH 6.0 (Normal) Range: 5.0-7.5 Specific Topmost 1.024 (Normal) Range: 1.005-1.030 Urine-Color Yellow (Normal) :03 MICROALBUMIN: CREATININE RATIO Comments: PATIENT WAS FASTINGPERFORMED BY: AnomoHoly Name Medical CenterJjxxxo2444 [facility] [id number] ([id number]) AND (32543) Microalb/Creat Ratio 76.6 {mg/g_creat} (Abnormal) Range: 0.0-30.0 Creatinine, Urine 298.9 mg/dL (Abnormal) Range: 15.0-278.0 Microalbumin, Urine 229.0 ug/mL (Abnormal) Range: 0.0-17.0 :03 METABOLIC PANEL, COMPREHENSIVE Comments: PATIENT WAS FASTINGPERFORMED BY: AnomoUNM Children's Psychiatric CenterOjzkme4793 [facility] [id number] (84675) A/G Ratio 1.5 (Normal) Range: 1.1-2.5 Albumin, Serum 4.1 g/dL (Normal) Range: 3.5-4.8 Alkaline Phosphatase, S 50 [iU]/L (Normal) Range: 25-165 ALT (SGPT) 23 [iU]/L (Normal) Range: 0-40 AST (SGOT) 23 [iU]/L (Normal) Range: 0-40 Bilirubin, Total 0.5 mg/dL (Normal) Range: 0.1-1.2 Globulin, Total 2.8 g/dL (Normal) Range: 1.5-4.5 Calcium, Serum 9.0 mg/dL (Normal) Range: 8.6-10.2 Carbon Dioxide, Total 22 mmol/L (Normal) Range: 20-32 Chloride, Serum 108 mmol/L (Normal) Range: 97-108 Potassium, Serum 4.4 mmol/L (Normal) Range: 3.5-5.2 Protein, Total, Serum 6.9 g/dL (Normal) Range: 6.0-8.5 BUN/Creatinine Ratio 11 (Normal) Range: 8-27 eGFR AfricanAmerican 52 mL/min/1.73 Comments: Note: Persistent reduction for 3 months or more in an eGFR<60 mL/min/1.73 m2 defines CKD. Patients with eGFR values>/=60 mL/min/1.73 m2 may also have CKD if evidence of persistentproteinur ia is (Abnormal) present. Additional information may be found atwww.kdoqi.org. Sodium, Serum 143 mmol/L (Normal) Range: 135-145 BUN 13 mg/dL (Normal) Range: 5-26 Creatinine, Serum 1.23 mg/dL (Abnormal) Range: 0.57-1.00 eGFR 43 mL/min/1.73 (Abnormal) Glucose, Serum 83 mg/dL (Normal) Range: 65-99 :03 LIPID PANEL (32628) Comments: PATIENT WAS FASTINGPERFORMED BY: [facility] [id number] LDL/HDL Ratio 1.1 {ratio_units} (Normal) Range: 0.0-3.2 HDL Cholesterol 57 mg/dL (Normal) Comments: According to ATP-III Guidelines, HDL-C >59 mg/dL is considered anegative risk factor for CHD. LDL Cholesterol Calc 62 mg/dL (Normal) Range: 0-99 VLDL Cholesterol Richard 20 mg/dL (Normal) Range: 5-40 Cholesterol, Total 139 mg/dL (Normal) Range: 100-199 Triglycerides 98 mg/dL (Normal) Range: 0-149 :03 CBC WITH MANUAL DIFF Comments: PATIENT WAS FASTINGPERFORMED BY: Tiggly70 Paiz [facility] [id number] Information: [id number] (92968) Baso (Absolute) 0.0 {x10E3/uL} (Normal) Range: 0.0-0.2 Eos (Absolute) 0.3 {x10E3/uL} (Normal) Range: 0.0-0.4 Monocytes(Absolute) 0.4 {x10E3/uL} (Normal) Range: 0.1-1.0 Lymphs (Absolute) 0.9 {x10E3/uL} (Normal) Range: 0.7-4.5 Neutrophils (Absolute) 2.4 {x10E3/uL} (Normal) Range: 1.8-7.8 Basos 0 % (Normal) Range: 0-3 Eos 8 % (Abnormal) Range: 0-7 Monocytes 9 % (Normal) Range: 4-13 Lymphs 22 % (Normal) Range: 14-46 MCH 30.3 pg (Normal) Range: 27.0-34.0 MCHC 33.7 g/dL (Normal) Range: 32.0-36.0 Neutrophils 61 % (Normal) Range: 40-74 Platelets 227 {x10E3/uL} (Normal) Range: 140-415 RDW 13.5 % (Normal) Range: 11.7-15.0 Hematocrit 37.1 % (Normal) Range: 34.0-44.0 Hemoglobin 12.5 g/dL (Normal) Range: 11.5-15.0 MCV 90 fL (Normal) Range: 80-98 RBC 4.13 {x10E6/uL} (Normal) Range: 3.80-5.10 WBC 4.0 {x10E3/uL} (Normal) Range: 4.0-10.5 :17 Prothrombin Time (PT) Comments: PERFORMED BY: [employer]er [facility] [id number] INR 1.2 (Normal) Range: 0.8-1.2 Comments: Reference interval is for non-anticoagulated patients. . Suggested INR therapeutic range for Vitamin K anta gonist therapy: Standard Dose (moderate intensity therapeutic range): 2.0 - 3.0 Higher intensity therapeutic range 2.5 - 3.5 Prothrombin Time 12.1 {sec} (Abnormal) Range: 8.7-11.5 :56 Prothrombin Time (PT) Comments: PERFORMED BY: [employer]scaler [facility] SiteExcell Tower PartnersY[facility] [id number] INR 1.7 (Abnormal) Range: 0.8-1.2 Comments: Reference interval is for non-anticoagulated patients. . Suggested INR therapeutic range for Vitamin K anta gonist therapy: Standard Dose (moderate intensity therapeutic range): 2.0 - 3.0 Higher intensity therapeutic range 2.5 - 3.5 Prothrombin Time 17.0 {sec} (Abnormal) Range: 8.7-11.5 :26 CBC With Differential/Platelet Comments: PERFORMED BY: AnomoHoly Name Medical CenterAntyhr2394 [facility] [id number] Baso (Absolute) 0.0 {x10E3/uL} (Normal) Range: 0.0-0.2 Basos 0 % (Normal) Range: 0-3 Eos 6 % (Normal) Range: 0-7 Eos (Absolute) 0.3 {x10E3/uL} (Normal) Range: 0.0-0.4 Hematocrit 36.4 % (Normal) Range: 34.0-44.0 Hemoglobin 12.5 g/dL (Normal) Range: 11.5-15.0 Lymphs 24 % (Normal) Range: 14-46 Lymphs (Absolute) 1.1 {x10E3/uL} (Normal) Range: 0.7-4.5 MCH 30.2 pg (Normal) Range: 27.0-34.0 MCHC 34.3 g/dL (Normal) Range: 32.0-36.0 MCV 88 fL (Normal) Range: 80-98 Monocytes 9 % (Normal) Range: 4-13 Monocytes(Absolute) 0.4 {x10E3/uL} (Normal) Range: 0.1-1.0 Neutrophils 61 % (Normal) Range: 40-74 Neutrophils (Absolute) 2.8 {x10E3/uL} (Normal) Range: 1.8-7.8 Platelets 209 {x10E3/uL} (Normal) Range: 140-415 RBC 4.13 {x10E6/uL} (Normal) Range: 3.80-5.10 RDW 13.8 % (Normal) Range: 11.7-15.0 WBC 4.6 {x10E3/uL} (Normal) Range: 4.0-10.5 :26 Comp. Metabolic Panel (14) Comments: PERFORMED BY: [facility] MedTechCoHoly Name Medical CenterIagdxn5629 [facility] [id number] A/G Ratio 1.5 (Normal) Range: 1.1-2.5 Albumin, Serum 4.3 g/dL (Normal) Range: 3.5-4.8 Alkaline Phosphatase, S 53 [iU]/L (Normal) Range: 25-165 ALT (SGPT) 29 [iU]/L (Normal) Range: 0-40 AST (SGOT) 31 [iU]/L (Normal) Range: 0-40 Bilirubin, Total 0.5 mg/dL (Normal) Range: 0.1-1.2 BUN 16 mg/dL (Normal) Range: 5-26 BUN/Creatinine Ratio 13 (Normal) Range: 8-27 Calcium, Serum 9.2 mg/dL (Normal) Range: 8.5-10.6 Carbon Dioxide, Total 24 mmol/L (Normal) Range: 20-32 Chloride, Serum 103 mmol/L (Normal) Range: 97-108 Creatinine, Serum 1.19 mg/dL (Abnormal) Range: 0.57-1.00 eGFR 45 mL/min/1.73 (Abnormal) eGFR AfricanAmerican 54 mL/min/1.73 Comments: Note: Persistent reduction for 3 months or more in an eGFR<60 mL/min/1.73 m2 defines CKD. Patients with eGFR values>/=60 mL/min/1.73 m2 may also have CKD if evidence of persistentproteinur ia is (Abnormal) present. Additional information may be found [email or web address]. Globulin, Total 2.9 g/dL (Normal) Range: 1.5-4.5 Glucose, Serum 93 mg/dL (Normal) Range: 65-99 Potassium, Serum 3.8 mmol/L (Normal) Range: 3.5-5.2 Protein, Total, Serum 7.2 g/dL (Normal) Range: 6.0-8.5 Sodium, Serum 139 mmol/L (Normal) Range: 135-145 :26 Microalb/Creat Ratio, Randm Ur Comments: PERFORMED BY: NUVIA [facility]6370 [facility] [id number] Creatinine, Urine 193.6 mg/dL (Normal) Range: 15.0-278.0 Microalb/Creat Ratio 7.4 {mg/g_creat} (Normal) Range: 0.0-30.0 Microalbumin, Urine 14.3 ug/mL (Normal) Range: 0.0-17.0 :26 NMR LipoProfile Comments: PERFORMED BY: NUVIA [employer] [facility] [id number] Cholesterol, Total 159 mg/dL (Normal) HDL-C 55 mg/dL (Normal) Large HDL-P 11.4 umol/L (Normal) Large VLDL-P 1.2 nmol/L (Normal) LDL Particle Size 22.0 nm (Normal) Comments: . Small (Pattern B) 18.0 - 20.5 Large (Pattern A) 20.6 - 23.0 . LDL-C 85 mg/dL (Normal) Comments: LDL-C is inaccurate if patient is nonfasting. . Optimal < 100 Above optimal 100 - 129 Borderline 130 - 159 High 160 - 189 Very high > 189 . LDL-P 846 nmol/L (Normal) Comments: . Optimal < 1000 Above optimal 1000 - 1299 Borderline 13 00 - 1599 High 1600 - 2000 Very high > 2000 . Patient Goals SPRCS (Normal) Comments: High Risk: LDL-P < 1000; Secondary goal: Small LDL-P < 850Moderately High-Risk: LDL-P < 1300; Secondary goal: Small LDL-P < 850 Small LDL-P 315 nmol/L (Normal) Comments: . Low < 600 Moderate 600 - 849 Borderline 8 50 - 1200 High > 1200 . Triglycerides 96 mg/dL (Normal) :26 Prothrombin Time (PT) Comments: PERFORMED BY: AnomoHoly Name Medical CenterWrkfsr8142 [facility] [id number] INR 1.1 (Normal) Range: 0.8-1.2 Comments: Reference interval is for non-anticoagulated patients. . Suggested INR therapeutic range for Vitamin K anta gonist therapy: Standard Dose (moderate intensity therapeutic range): 2.0 - 3.0 Higher intensity therapeutic range 2.5 - 3.5 Prothrombin Time 11.0 {sec} (Normal) Range: 8.7-11.5 :2 TSH 0.296 {uIU/mL} Comments: PERFORMED BY: AnomoHoly Name Medical CenterBhvvym7768 [facility] [id number] (Abnormal) Range: 0.450-4.500 34-Byg-290279:33 Prothrombin Time (PT) Comments: PERFORMED BY: AnomoHoly Name Medical CenterNkjtzn[address] [place] [address] [id number] INR 3.3 (Abnormal) Range: 0.8-1.2 Comments: Reference interval is for non-anticoagulated patients. . Suggested INR therapeutic range for Vitamin K anta gonist therapy: Standard Dose (moderate intensity therapeutic range): 2.0 - 3.0 Higher intensity therapeutic range 2.5 - 3.5 Prothrombin Time 31.8 {sec} (Abnormal) Range: 8.7-11.5 :44 Prothrombin Time (PT) Comments: PERFORMED BY: LabVivity LabsKara Ville [id number] [facility] [id number] INR 1.1 (Normal) Range: 0.8-1.2 Comments: Reference interval is for non-anticoagulated patients. . Suggested INR therapeutic range for Vitamin K anta gonist therapy: Standard Dose (moderate intensity therapeutic range): 2.0 - 3.0 Higher intensity therapeutic range 2.5 - 3.5 Prothrombin Time 11.4 {sec} (Normal) Range: 8.7-11.5 :53 PT/INR, Office ([id number]) Comments: PATIENT NOT FASTINGClinical Information: ADD [id number] PERFORMED BY: ZOCKO Karfth6535 [facility] [id number] INR 4.3 (Abnormal) Range: 0.8-1.2 Comments: Reference interval is for non-anticoagulated patients. . Suggested INR therapeutic range for Vitamin K anta gonist therapy: Standard Dose (moderate intensity therapeutic range): 2.0 - 3.0 Higher intensity therapeutic range 2.5 - 3.5 Prothrombin Time 41.2 {sec} (Abnormal) Range: 8.7-11.5 :42 PT/INR, Office ([id number]) Comments: done>Wf. INR 4.0 (Normal) :56 CBC With Differential/Platelet Comments: PATIENT WAS FASTINGPERFORMED BY: [facility] MedTechCoKara Ville [id number] [facility] [id number] Baso (Absolute) 0.0 {x10E3/uL} (Normal) Range: 0.0-0.2 Basos 0 % (Normal) Range: 0-3 Eos 5 % (Normal) Range: 0-7 Eos (Absolute) 0.2 {x10E3/uL} (Normal) Range: 0.0-0.4 Hematocrit 35.9 % (Normal) Range: 34.0-44.0 Hemoglobin 12.5 g/dL (Normal) Range: 11.5-15.0 Lymphs 26 % (Normal) Range: 14-46 Lymphs (Absolute) 1.1 {x10E3/uL} (Normal) Range: 0.7-4.5 MCH 30.4 pg (Normal) Range: 27.0-34.0 MCHC 34.8 g/dL (Normal) Range: 32.0-36.0 MCV 87 fL (Normal) Range: 80-98 Monocytes 8 % (Normal) Range: 4-13 Monocytes(Absolute) 0.3 {x10E3/uL} (Normal) Range: 0.1-1.0 Neutrophils 61 % (Normal) Range: 40-74 Neutrophils (Absolute) 2.6 {x10E3/uL} (Normal) Range: 1.8-7.8 Platelets 192 {x10E3/uL} (Normal) Range: 140-415 Comments: Effective December 15, 2008, the reference interval for Platelet Count, will be changing to: . 0 - 7 days 150 - 381 8 - 30 days 150 - 477 31- 90 days 150 - 579 91 days - up 1 year 150 - 496 1 - 7 years 150 - 440 8 - 17 years 150 - 349 Adult 140 - 415 RBC 4.12 {x10E6/uL} (Normal) Range: 3.80-5.10 RDW 14.2 % (Normal) Range: 11.7-15.0 WBC 4.3 {x10E3/uL} (Normal) Range: 4.0-10.5 [id number]-[id number]:56 Comp. Metabolic Panel (14) Comments: PATIENT WAS FASTINGPERFORMED BY: LabCoHoly Name Medical CenterYdbqwi1789 [facility] [id number] A/G Ratio 1.6 (Normal) Range: 1.1-2.5 Albumin, Serum 4.2 g/dL (Normal) Range: 3.5-4.8 Alkaline Phosphatase, S 54 [iU]/L (Normal) Range: 25-165 ALT (SGPT) 31 [iU]/L (Normal) Range: 0-40 AST (SGOT) 31 [iU]/L (Normal) Range: 0-40 Bilirubin, Total 0.6 mg/dL (Normal) Range: 0.1-1.2 BUN 16 mg/dL (Normal) Range: 5-26 BUN/Creatinine Ratio 13 (Normal) Range: 8-27 Calcium, Serum 9.2 mg/dL (Normal) Range: 8.5-10.6 Carbon Dioxide, Total 22 mmol/L (Normal) Range: 20-32 Chloride, Serum 107 mmol/L (Normal) Range: 97-108 Creatinine, Serum 1.24 mg/dL (Abnormal) Range: 0.57-1.00 eGFR 42 mL/min/1.73 (Abnormal) eGFR AfricanAmerican 52 mL/min/1.73 Comments: Note: Persistent reduction for 3 months or more in an eGFR<60 mL/min/1.73 m2 defines CKD. Patients with eGFR values>/=60 mL/min/1.73 m2 may also have CKD if evidence of persistentproteinur ia is (Abnormal) present. Additional information may be found [email or web address]. Globulin, Total 2.7 g/dL (Normal) Range: 1.5-4.5 Glucose, Serum 76 mg/dL (Normal) Range: 65-99 Potassium, Serum 4.1 mmol/L (Normal) Range: 3.5-5.2 Protein, Total, Serum 6.9 g/dL (Normal) Range: 6.0-8.5 Sodium, Serum 142 mmol/L (Normal) Range: 135-145 [id number]-Viz-[id number]:56 Microscopic Examination Comments: PATIENT WAS FASTINGPERFORMED BY: [facility]Tr[facility]6370 [facility] [id number] Bacteria Few (Normal) Cast Type Hyaline casts (Normal) Casts Present {/lpf} (Abnormal) Crystal Type Calcium Oxalate (Normal) Crystals Present (Abnormal) Epithelial Cells (non renal) 0-10 {/hpf} (Normal) Range: 0 - 10 Mucus Threads Present (Normal) RBC 4-10 {/hpf} (Abnormal) Range: 0 - 3 WBC 11-30 {/hpf} (Abnormal) Range: 0 - 5 [id number]-[id number]:56 NMR LipoProfile Comments: PATIENT WAS FASTINGPERFORMED BY: AnomoHoly Name Medical CenterLrgkqc5786 [facility] [id number] HDL-C 65 mg/dL (Normal) Large HDL-P 13.0 umol/L (Normal) Large VLDL-P 0.3 nmol/L (Normal) LDL Particle Size 21.5 nm (Normal) Comments: . Small (Pattern B) 18.0 - 20.5 Large (Pattern A) 20.6 - 23.0 . Patient Goals SPRCS (Normal) Comments: High Risk: LDL-P < 1000; Secondary goal: Small LDL-P < 850Moderately High-Risk: LDL-P < 1300; Secondary goal: Small LDL-P < 850 Triglycerides 85 mg/dL (Normal) Cholesterol, Total 147 mg/dL (Normal) LDL-C 65 mg/dL (Normal) Comments: . Optimal < 100 Above optimal 100 - 129 Borderline 1 30 - 159 High 160 - 189 Very high > 189 . LDL-P 942 nmol/L (Normal) Comments: . Optimal < 1000 Above optimal 1000 - 1299 Borderline 13 00 - 1599 High 1600 - 2000 Very high > 2000 . Small LDL-P 481 nmol/L (Normal) Comments: . Low < 600 Moderate 600 - 849 Borderline 8 50 - 1200 High > 1200 . TSH 0.110 {uIU/mL} Comments: PATIENT WAS FASTINGPERFORMED BY: AnomoHoly Name Medical CenterGvcgln2150 [facility] [id number] :56 (Abnormal) Range: 0.450-4.500 13-Hnk-815523:56 Urinalysis, Routine Comments: PATIENT WAS FASTINGPERFORMED BY: AnomoHoly Name Medical CenterFunnsl5120 [facility] [id number] Appearance Clear (Normal) Bilirubin Negative (Normal) Glucose Negative (Normal) Ketones Negative (Normal) Microscopic Examination See below: (Normal) Nitrite, Urine Negative (Normal) Occult Blood Trace (Abnormal) pH 5.0 (Normal) Range: 5.0-7.5 Protein Negative (Normal) Specific Topmost 1.020 (Normal) Range: 1.005-1.030 Urine-Color Yellow (Normal) Urobilinogen,Semi-Qn 0.2 mg/dL (Normal) Range: 0.0-1.9 WBC Esterase 2+ (Abnormal) Vitamin D, 25-Hydroxy 34.8 ng/mL (Normal) Comments: PATIENT WAS FASTINGPERFORMED BY: NUVIA LabCoHoly Name Medical CenterWfvsum2067 [facility] [facility] [id number] 2:56 Range: 32.0-100.0 Comments: Recent studies consider the lower limit of 32.0 ng/mL to be athreshold for optimal health.Sameer KRISHNA. J Nutr. 2004;135(2):317-22. 7-Szv-[id number]:36 PT/INR, Office (25227) Comments: done>Wf.no change zaida 2 weeks INR 2.7 (Normal) 81-Gwl-325644:04 PT/INR, Office (22228) Comments: done BC INR 2.3 (Normal) 18-Sfu-372795:17 PT/INR, Office (23903) INR 3.2 (Normal) 4-Hha-385949:14 PT/INR, Office (60657) INR 2.7 (Normal) 70-Mly-705751:31 LOWER EXT/JT ONLY (ROUTINE) Radiology Report See Note (Normal) Comments: Exam Number: [id number] MRI LEFT KNEE REASON FOR EXAMINATION Post traumatic left knee pain. MRI to assess for internalderangement. Patient has history of lymphoma. MRI is performed of the left knee per usual protocol utilizing T1, T2and proton density sequences in various sagittal, axial and coronalplanes. There is T2 hyperintense marrow signal associated with the marrow inthe patellar body consis tent with marrow edema/bone contusion. There is associated T2 hyperintense signal within the soft tissuesoverlying the anterior surface of the patella indicating associatedsoft tissue contusion. There is signal alteration at the patellarinsertion of the patella tendon indicating contusion/partial thicknesstear. The medial and lateral menisci demonstrate mild intrasubstanceincreased T2 signal without associated tear. The anterior and posterior cruciate ligaments and the medial and thelateral collateral ligaments are intact. There is no significantjoint effusion. 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 Incidentally, there are superficial varicosities along the lateralsoft tissues. IMPRESSION1. Marrow edema/bone contusion involving the patella body andoverlying soft tissues. Mild signal alt eration around the patellarinsertion of the patella tendon indicating contusion/partial thicknesstear. There is no full-thickness tear or avulsion.2. Superficial lateral varicosities.3. Negative for meniscal tear. Reported By: BRITNEY JONES M.D. :59 PT/INR, Office (89356) Comments: done kmforgot to take to [place] for 10 days has been back a month and still low INR 1.1 (Normal) :17 TSH 0.01 {uIU/mL} (Abnormal) Range: 0.34-4.82 :55 PT/INR, Office (18825) INR 2.2 (Normal) PT (PROTHROMBIN TIME) INR-2.2 s (Normal) Range: 11.5-13.5 :18 PT/INR, Office (94936) Comments: done>Wf. INR 1.7 (Normal) :58 PT/INR, Office (56131) Comments: 4MG CURRENT DOSE--INR 3.2 NEW DOSE 4 MG 5 DAYS WEEK AND 2 MG 2 DAYS ZAIDA 2 WEEKS INR 3.2 (Normal) PT (PROTHROMBIN TIME) INR-3.2 s (Normal) Range: 11.5-13.5 :23 Prothrombin Time (PT) Comments: PERFORMED BY: [facility]Tr[facility]6370 [facility] [id number] INR 2.1 (Normal) Range: 2.0-3.5 Comments: INR reference interval applies to patients on anticoagulant therapy. Suggested INR therapeutic range for oral anticoagulant thera py: (Stabilized anticoagulated patients) . Routine Therapy: 2.0 - 3.0 Recurrent Myocardial Infarction or Mechanical Prosthetic Valves: 2.5 - 3.5 Prothrombin Time 20.0 {sec} (Abnormal) Range: 8.7-11.5 Comments: Reference interval is for nonmedicated patients. :17 CBCD,SMEAR DIFF BAND 2 % (Normal) Range: 0-5 CELLS COUNTED 100 (Normal) EOS 9 % (Abnormal) Range: 0-5 HCT 38.1 % (Normal) Range: 37-47 HGB 13.0 g/dL (Normal) Range: 12.0-16.0 LYMPH 24 % (Normal) Range: 19-41 MCH 29.1 pg (Normal) Range: 27.0-32.0 MCHC 34.2 g/dL (Normal) Range: 32-36 MCV 85.0 fL (Normal) Range: 81-99 MONOCYTE 4 % (Normal) Range: 0-10 PLT 204 K/mm3 (Normal) Range: 150-450 PLT EST SeeNote (Normal) Comments: Result: ADEQUATE RBC 4.48 {M/mm3} (Normal) Range: 4.2-5.4 RDW 13.6 % (Normal) Range: 11.6-14.6 RED CELL MORPH SeeNote {NORMAL} (Normal) Comments: Result: NORM C+C SEGS 61 % (Normal) Range: 47-70 WBC 3.9 K/mm3 (Abnormal) Range: 4.4-11.0 :17 COMP METABOLIC A/G 0.9 {RATIO} (Normal) Range: 0.9-2.4 ALB 3.6 g/dL (Normal) Range: 3.4-5.0 ALK P 53 U/L (Normal) Range: 50-136 ALT 45 U/L (Normal) Range: 30-65 AST 24 U/L (Normal) Range: 15-37 BUN 17 mg/dL (Normal) Range: 7-18 BUN/CRE 15.5 {RATIO} (Normal) Range: 10-20 CA 9.0 mg/dL (Normal) Range: 8.5-10.1 CL 107 mmol/L (Normal) Range: 98-107 CO2 24.2 mmol/L (Normal) Range: 21.0-32.0 CREAT,SERUM 1.1 mg/dL (Abnormal) Range: 0.6-1.0 GAP 8 (Normal) Range: 5-15 GLOB 3.8 g/dL (Normal) Range: 2.7-4.2 GLU 86 mg/dL (Normal) Range: 70-110 K 3.7 mmol/L (Normal) Range: 3.5-5.1 NA 139 mmol/L (Normal) Range: 136-145 T BILI 0.45 mg/dL (Normal) Range: 0.00-1.00 T PROT 7.4 g/dL (Normal) Range: 6.4-8.2 :17 LIPID CHOL 146 mg/dL (Normal) Comments: <200 mg/dL Desirable 200-240 mg/dL Borderline >240 mg/dL High Risk HDL 55 mg/dL (Normal) Comments: Reference Range HDL <40 mg/dL Low HDL Cholesterol HDL >or= 60 mg/dL High HDL Cholesterol LDL 65 mg/dL (Normal) Range: 0-130 TRIG 129 mg/dL (Normal) Comments: Serum Triglycerides Reference Interval Normal <150 mg/dL Borderline high 150 - 199 mg/dL High 200 - 499 mg/dL Very High > or = 500 mg/dL VLDL 26 mg/dL (Normal) Range: 5-40 :17 MICROALBUMIN,UR 16.5 mg/L (Normal) :17 ROUTINE UA BILIRUBIN URINE SeeNote (Normal) Comments: Result: NEGATIVE CLARITY SeeNote (Normal) Comments: Result: SL CLOUDY COLOR YELLOW (Normal) GLUCOSE, UR SeeNote (Normal) Comments: Result: NEGATIVE KETONE UR SeeNote mg/dL (Normal) Comments: Result: NEGATIVE LEUK ESTERASE 1+ (Abnormal) NITRITE UR SeeNote (Normal) Comments: Result: NEGATIVE OCCULT BLOOD-UR SeeNote (Abnormal) Comments: Result: TRACE-INTACT pH UR 5.5 (Normal) Range: 5.0-8.0 PROT DIPSTX SeeNote (Normal) Comments: Result: NEGATIVE SP.GR. DIPSTX >=1.030 (Normal) Range: 1.002-1.030 UROBILI 0.2 EU/dl (Normal) Range: 0.2 - 1.0 :17 TSH < 0.01 {uIU/mL} (Abnormal) Range: 0.34-4.82 :14 PT/INR, Office ([id number]) INR 2.0 (Normal) :56 PT/INR, Office (54212) INR 1.4 (Normal) :47 PT/INR, Office (74525) INR 2.9 (Normal) PT (PROTHROMBIN TIME) INR-2.9 s (Normal) Range: 11.5-13.5 :12 PT/INR, Office (37545) INR 2.2 (Normal) :22 PT/INR, Office (37548) INR 1.3 (Normal) Comments: aw [id number]-[id number]:38 BILAT SCRN DIGITAL & CAD Radiology Report See Note (Normal) Comments: Exam Number: [id number] MAMMOGRAM, BILATERAL SCREENING DIGITAL AND CAD HISTORYRoutine screening. Full field digital images were obtained in mediolateral oblique andcraniocaudal projections. CAD images were reviewed. The current study is compared to the examinations of June 2004 andFebruary 2006. There is moderately dense fibroglandular parenchyma present. There isno skin thickening or retraction, architectural distortion, or clusterof suspicious microcalcifications. There is an asymmetric density inthe anterior depth of the left breast just medial to the plane of thenipple. This is unchanged. There is vascular calcification present. If there is no suspicious palpable abnormality, followup mammogram in1 year is recommended. IMPRESSIONThere is no radiographic evidence of malignancy identif ied. FINAL ASSESSMENTBenign findings. BIRADS Category 2. A letter regarding these results has been sent to the patient. This interpretation was rendered by a radiologist certified under theMammography Quality Standards Act of 1992 (MQSA). The mammograms werealso examined with computer-aided detection software ([employer], [employer].). Reported By: KEYUR MILTON M.D. 1-Trt-106039:38 DEXA BONE DENSITY STUDY (HP) Radiology Report See Note (Normal) Comments: Exam Number: [id number] BONE DENSITOMETRY HISTORYOsteopenia. TECHNIQUE Bone densitometry of the lumbar spine and left hip was performed. Thebest criteria for evaluation of osteoporosis is the T-valu e whichrepresents the comparison of the patient's bone mass to an expectedpeak bone mass. For most patients, the mean T-value of L1 through L4and the T-value of the total left hip are most useful. FI NDINGSIn this patient, the mean T-value of L1 through L4 is minus 2 which isin the range of osteopenia. Digital lateral view for evaluation ofvertebral deformity only demonstrates slight loss of height of T11 andT10. Bone mineral density is measured at 9.5% greater than in 2000and 4% less than in 2003. The T-value of the left femoral neck isminus 1.8 which is in the range of osteopenia. The T-valu e of thetotal left hip is minus 1.2 which is in the range of osteopenia. Bone mineral density is measured at 6.4% less than in 2000 and 3.5%less than in 2004. IMPRESSIONThere is osteopenia of the lum bar spine and total left hip. Reported By: KEYUR MILTON M.D. :41 PT/INR, Office (70233) Comments: 2.0 ok zaida 2-3 weeks INR 2.0 (Normal) :53 PT/INR, Office (20598) Comments: alt 2/4 and zaida 2 weeks inr 3.2 INR 3.2 (Normal) Comments: aw :10 PT/INR, Office (30581) Comments: done kmno change zaida in 2-3 weeks INR 2.6 (Normal) :52 PT/INR, Office (44108) INR 1.7 (Normal) Comments: aw :24 CULTURE, URINE URINE CULTURE See Note {CFU/mL} (Normal) Comments: COLONY COUNT <1000 ORGANISM 1: MIXED GRAM POSITIVE ORGANISMS :24 ROUTINE UA BILIRUBIN URINE SeeNote (Normal) Comments: Result: NEGATIVE CLARITY CLEAR (Normal) COLOR YELLOW (Normal) GLUCOSE, UR SeeNote (Normal) Comments: Result: NEGATIVE KETONE UR SeeNote mg/dL (Normal) Comments: Result: NEGATIVE LEUK ESTERASE 1+ (Abnormal) NITRITE UR SeeNote (Normal) Comments: Result: NEGATIVE OCCULT BLOOD-UR SeeNote (Normal) Comments: Result: NEGATIVE pH UR 5.0 (Normal) Range: 5.0-8.0 PROT DIPSTX SeeNote (Normal) Comments: Result: NEGATIVE SP.GR. DIPSTX >=1.030 (Normal) Range: 1.002-1.030 UROBILI 0.2 EU/dl (Normal) Range: 0.2 - 1.0 :02 MICROALBUMIN,UR 45.2 mg/L (Normal) :02 ROUTINE UA BILIRUBIN URINE SeeNote (Normal) Comments: Result: NEGATIVE CLARITY CLEAR (Normal) COLOR YELLOW (Normal) GLUCOSE, UR SeeNote (Normal) Comments: Result: NEGATIVE KETONE UR SeeNote mg/dL (Normal) Comments: Result: NEGATIVE LEUK ESTERASE 2+ (Abnormal) NITRITE UR SeeNote (Normal) Comments: Result: NEGATIVE OCCULT BLOOD-UR 1+ (Abnormal) pH UR 5.0 (Normal) Range: 5.0-8.0 PROT DIPSTX SeeNote (Normal) Comments: Result: NEGATIVE SP.GR. DIPSTX >=1.030 (Normal) Range: 1.002-1.030 UROBILI 0.2 EU/dl (Normal) Range: 0.2 - 1.0 :55 GLUP 91 mg/dL (Normal) Comments: GLU,2HPPG 75gm GLUC PPG GLUP from [id number]. :38 CBCD,SMEAR DIFF CELLS COUNTED 100 (Normal) EOS 5 % (Normal) Range: 0-5 HCT 37.2 % (Normal) Range: 37-47 HGB 12.8 g/dL (Normal) Range: 12.0-16.0 LYMPH 39 % (Normal) Range: 19-41 MCH 28.9 pg (Normal) Range: 27.0-32.0 MCHC 34.3 g/dL (Normal) Range: 32-36 MCV 84.1 fL (Normal) Range: 81-99 MONOCYTE 1 % (Normal) Range: 0-10 PLT 215 K/mm3 (Normal) Range: 150-450 PLT EST SeeNote (Normal) Comments: Result: ADEQUATE RBC 4.42 {M/mm3} (Normal) Range: 4.2-5.4 RDW 13.8 % (Normal) Range: 11.6-14.6 RED CELL MORPH SeeNote {NORMAL} (Normal) Comments: Result: NORM C&C SEGS 55 % (Normal) Range: 47-70 WBC 4.0 K/mm3 (Abnormal) Range: 4.4-11.0 :38 COMP METABOLIC A/G 1.0 {RATIO} (Normal) Range: 0.9-2.4 ALB 3.6 g/dL (Normal) Range: 3.4-5.0 ALK P 57 U/L (Normal) Range: 50-136 ALT 46 [iU]/L (Normal) Range: 30-65 AST 33 U/L (Normal) Range: 15-37 BUN 9 mg/dL (Normal) Range: 7-18 BUN/CRE 7.5 {RATIO} (Abnormal) Range: 10-20 CA 8.5 mg/dL (Normal) Range: 8.5-10.1 CL 106 mmol/L (Normal) Range: 98-107 CO2 25.6 mmol/L (Normal) Range: 22.0-29.0 CREAT,SERUM 1.2 mg/dL (Abnormal) Range: 0.6-1.0 GAP 6 (Normal) Range: 5-15 GLOB 3.5 g/dL (Normal) Range: 2.3-3.5 GLU 81 mg/dL (Normal) Range: 70-110 K 3.9 mmol/L (Normal) Range: 3.5-5.1 NA 138 mmol/L (Normal) Range: 136-145 T BILI 0.36 mg/dL (Normal) Range: 0.00-1.00 T PROT 7.1 g/dL (Normal) Range: 6.4-8.2 :38 LIPID CHOL 148 mg/dL (Normal) Comments: <200 mg/dL Desirable 200-240 mg/dL Borderline >240 mg/dL High Risk HDL 56 mg/dL (Normal) Comments: Reference Range HDL <40 mg/dL Low HDL Cholesterol HDL >or= 60 mg/dL High HDL Cholesterol LDL 74 mg/dL (Normal) Range: 0-130 TRIG 89 mg/dL (Normal) Comments: Serum Triglycerides Reference Interval Normal <150 mg/dL Borderline high 150 - 199 mg/dL High 200 - 499 mg/dL Very High > or = 500 mg/dL VLDL 18 mg/dL (Normal) Range: 5-40 :38 PRO TIME INR 1.7 (Normal) PROTIME 19.5 s (Abnormal) Range: 10.6-13.2 :38 TSH 0.75 {uIU/mL} (Normal) Range: 0.34-4.82 :45 PT/INR, Office ([id number]) Comments: done INR 2.7 (Normal) :16 PRO TIME INR 3.2 (Normal) PROTIME 35.3 s (Abnormal) Range: 10.6-13.2 Comments: Please Note Reference Interval Change :10 PRO TIME INR 2.4 (Normal) PROTIME 26.5 s (Abnormal) Range: 10.6-13.2 Comments: Please Note Reference Interval Change :12 PRO TIME INR 1.0 (Normal) PROTIME 12.2 s (Normal) Range: 11.7-13.3 :04 PRO TIME INR 0.9 (Normal) PROTIME 11.8 s (Normal) Range: 11.7-13.3 Plan of Care Name Dates Details Instructions Non-smoker : Follow up in 6 weeks Indication: Non-smoker Non-smoker : Eprescribed prescriptions (G8553) Indication: Non-smoker Upper respiratory infection, acute : Follow up if no improvement or if symptoms worsen Indication: Upper respiratory infection, acute Upper respiratory infection, acute : Sore Throat *: upper respiratory infection Indication: Upper respiratory infection, acute Non-smoker : Eprescribed prescriptions (G8553) Indication: Non-smoker Urinary tract infection, recurrent : Follow up if no improvement or if symptoms worsen Indication: Urinary tract infection, recurrent Urinary tract infection, recurrent : Urinary Tract Infection in Women *: urinary infection Indication: Urinary tract infection, recurrent BMI 23.0-23.9, adult : Eprescribed prescriptions (G8553) Indication: BMI 23.0-23.9, adult Non-smoker : Follow up if no improvement or if symptoms worsen Indication: Non-smoker Urgency incontinence : Reviewed Lab Indication: Urgency incontinence Dysuria : Eprescribed prescriptions (G8553) Indication: Dysuria Non-smoker : Eprescribed prescriptions (G8553) Indication: Non-smoker Abdominal pain : Reviewed Diagnostic Tests Indication: Abdominal pain Non-smoker : Eprescribed prescriptions (G8553) Indication: Non-smoker Edema extremities : Follow up in 2 days Indication: Edema extremities Chronic systolic congestive heart failure : Reviewed Diagnostic Tests Indication: Chronic systolic congestive heart failure SBO (small bowel obstruction) : Reviewed Lab Indication: SBO (small bowel obstruction) SBO (small bowel obstruction) : Reviewed Spiritual Care Coordinator Letter Indication: SBO (small bowel obstruction) Fatigue : Reviewed Lab Indication: Fatigue LYMPHOMA, NOS : Eprescribed prescriptions (G8553) Indication: LYMPHOMA, NOS Non-smoker : Eprescribed prescriptions (G8553) Indication: Non-smoker Left lower quadrant pain : Follow up - Make appt after diagnostic tests Indication: Left lower quadrant pain Left lower quadrant pain : Follow up if no improvement or if symptoms worsen Indication: Left lower quadrant pain BMI between 19-24,adult : Eprescribed prescriptions (G8553) Indication: BMI between 19-24,adult Chronic kidney disease, stage IV (severe) : Reviewed Spiritual Care Coordinator Letter Indication: Chronic kidney disease, stage IV (severe) Chronic fatigue : Follow up in 1 week Indication: Chronic fatigue Anemia due to stage 3 chronic kidney disease : Reviewed Lab Indication: Anemia due to stage 3 chronic kidney disease Chronic fatigue : *fatigue education Indication: Chronic fatigue Walking pneumonia : Continue Current Prescription(s) Indication: Walking pneumonia SOB (shortness of breath) on exertion : Reviewed Diagnostic Tests Indication: SOB (shortness of breath) on exertion Non-smoker : Eprescribed prescriptions (G8553) Indication: Non-smoker Cough : MDI Education Indication: Cough Walking pneumonia : *Antibiotic Usage Education - Female Indication: Walking pneumonia Non-smoker : Eprescribed prescriptions (G8553) Indication: Non-smoker Status post-operative repair of closed fracture of right hip : Reviewed Lab Indication: Status post-operative repair of closed fracture of right hip Status post-operative repair of closed fracture of right hip : Reviewed Spiritual Care Coordinator Letter Indication: Status post-operative repair of closed fracture of right hip Status post-operative repair of closed fracture of right hip : Reviewed Diagnostic Tests Indication: Status post-operative repair of closed fracture of right hip B-cell lymphoma : Follow up in 1 week Indication: B-cell lymphoma Urinary frequency : Bladder Infection: Brief Version *: uti Indication: Urinary frequency Chronic kidney disease, stage IV (severe) : Reviewed Lab Indication: Chronic kidney disease, stage IV (severe) Annual Medicare Phyiscal WITHOUT abnormal findings (Renamed from Encounter for general adult medical examination without abnormal findings) : Follow up in 6 months- with kf per kf - gen med Indication: Annual Medicare Phyiscal WITHOUT abnormal findings (Renamed from Encounter for general adult medical examination without abnormal findings) Annual Medicare Phyiscal WITHOUT abnormal findings (Renamed from Encounter for general adult medical examination without abnormal findings) : fall reduction handout Indication: Annual Medicare Phyiscal WITHOUT abnormal findings (Renamed from Encounter for general adult medical examination without abnormal findings) Annual Medicare Phyiscal WITHOUT abnormal findings (Renamed from Encounter for general adult medical examination without abnormal findings) : elderly packet given Indication: Annual Medicare Phyiscal WITHOUT abnormal findings (Renamed from Encounter for general adult medical examination without abnormal findings) Annual Medicare Phyiscal WITHOUT abnormal findings (Renamed from Encounter for general adult medical examination without abnormal findings) : advance planning information Indication: Annual Medicare Phyiscal WITHOUT abnormal findings (Renamed from Encounter for general adult medical examination without abnormal findings) Encounter for screening for malignant neoplasm of colon (Renamed from Special screening for malignant neoplasms, colon) : Self breast exam Indication: Encounter for screening for malignant neoplasm of colon (Renamed from Special screening for malignant neoplasms, colon) Encounter for screening for malignant neoplasm of colon (Renamed from Special screening for malignant neoplasms, colon) : *Colon Cancer Screening Indication: Encounter for screening for malignant neoplasm of colon (Renamed from Special screening for malignant neoplasms, colon) Hypertension, benign : Follow up in 1 week for medicare physical Indication: Hypertension, benign Hyperlipidemia, unspecified : Cholesterol mgmt Indication: Hyperlipidemia, unspecified Hypothyroidism : Reviewed Lab Indication: Hypothyroidism LYMPHOMA, NOS : Reviewed Spiritual Care Coordinator Letter Indication: LYMPHOMA, NOS Hypertension, benign : Diet, Exercise, and Wt loss Indication: Hypertension, benign Hypertension, benign : HTN/CAD Red Flags Indication: Hypertension, benign Walking pneumonia : Follow up in 2 weeks Indication: Walking pneumonia Walking pneumonia : Continue Current Prescription(s) Indication: Walking pneumonia Walking pneumonia : Follow up in 2 days Indication: Walking pneumonia Cough : Eprescribed prescriptions (G8553) Indication: Cough Hyperlipidemia, unspecified : Follow up in 4 months Indication: Hyperlipidemia, unspecified LYMPHOMA, NOS : Reviewed Spiritual Care Coordinator Letter Indication: LYMPHOMA, NOS Hyperlipidemia, unspecified : High Cholesterol (Hypercholesterolemia) *: cardiovascular health Indication: Hyperlipidemia, unspecified Osteopenia : Follow up in 7 weeks-- do a customized cleanse program Indication: Osteopenia Hypertension, benign : Follow up in 3.5 months- nmedicare phyuscial Indication: Hypertension, benign Hypertension, benign : Follow up in 3 months gen med Indication: Hypertension, benign Hypertension, benign : Continue Current Prescription(s) Indication: Hypertension, benign Hypertension, benign : HTN/CAD Red Flags Indication: Hypertension, benign Hypothyroidism : Continue Current Prescription(s) Indication: Hypothyroidism LYMPHOMA, NOS : Reviewed Lab Indication: LYMPHOMA, NOS LYMPHOMA, NOS : Reviewed Spiritual Care Coordinator Letter Indication: LYMPHOMA, NOS Hypothyroidism : Hypothyroidism: Brief Version *: gland Indication: Hypothyroidism Hypothyroidism : Eprescribed prescriptions (G8553) Indication: Hypothyroidism Abnormal chest x-ray : Reviewed Diagnostic Tests Indication: Abnormal chest x-ray LYMPHOMA, NOS : Follow up monday Indication: LYMPHOMA, NOS Difficulty breathing : Reviewed Diagnostic Tests Indication: Difficulty breathing Difficulty breathing : Reviewed Lab Indication: Difficulty breathing LYMPHOMA, NOS : Eprescribed prescriptions (G8553) Indication: LYMPHOMA, NOS Rib pain : Follow up - Make appt after diagnostic tests Indication: Rib pain Osteopenia : *Calcium Education (KF) Indication: Osteopenia Hyperlipidemia, unspecified : Follow up in 4 months: gen med Indication: Hyperlipidemia, unspecified Dysthymic : Continue Current Prescription(s) Indication: Dysthymic Hypertension, benign : HTN/CAD Red Flags Indication: Hypertension, benign LYMPHOMA, NOS : Reviewed Spiritual Care Coordinator Letter Indication: LYMPHOMA, NOS COUGH, NOS : Follow up in 3-4 weeks: gen med Indication: COUGH, NOS Bronchitis : Eprescribed prescriptions (G8553) Indication: Bronchitis Bronchitis : *URI Symptoms Indication: Bronchitis Bronchitis : *Antibiotic Usage Education - Female Indication: Bronchitis Hypertension, benign : Follow up in 4 months Indication: Hypertension, benign Encounter for Medicare annual wellness exam : *Colon Cancer Screening Indication: Encounter for Medicare annual wellness exam Encounter for Medicare annual wellness exam : fall reduction handout Indication: Encounter for Medicare annual wellness exam Encounter for Medicare annual wellness exam : elderly packet given Indication: Encounter for Medicare annual wellness exam Encounter for Medicare annual wellness exam : advance planning information Indication: Encounter for Medicare annual wellness exam Hypertension, benign : Eprescribed prescriptions (G8553) Indication: Hypertension, benign Dysthymic : Follow up in 4 weeks Indication: Dysthymic 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 : Reviewed Spiritual Care Coordinator Letter Indication: 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 Hyperlipidemia, unspecified : Cholesterol mgmt Indication: Hyperlipidemia, unspecified Hypertension, benign : HTN/CAD Red Flags Indication: Hypertension, benign Need for prophylactic vaccination and inoculation against influenza : Flu (Influenza) *: flu shot Indication: Need for prophylactic vaccination and inoculation against influenza Hypertension, benign : Continue Current Prescription(s) Indication: Hypertension, benign Hypertension, benign : Diet, Exercise, and Wt loss Indication: Hypertension, benign Hypertension, benign : HTN/CAD Red Flags Indication: Hypertension, benign Encounter for Medicare annual wellness exam : *Colon Cancer Screening Indication: Encounter for Medicare annual wellness exam Encounter for Medicare annual wellness exam : fall reduction handout Indication: Encounter for Medicare annual wellness exam Encounter for Medicare annual wellness exam : elderly packet given Indication: Encounter for Medicare annual wellness exam Encounter for Medicare annual wellness exam : advance planning information Indication: Encounter for Medicare annual wellness exam Hypertension, benign : Follow up in 1 month Indication: Hypertension, benign FATIGUE : *fatigue education Indication: FATIGUE 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 : Reviewed Spiritual Care Coordinator Letter Indication: 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 Hypertension, benign : HTN/CAD Red Flags Indication: Hypertension, benign Hypothyroidism : Thyroid Scan: hypothyroidism Indication: Hypothyroidism Low back pain : Follow up in 2 weeks Indication: Low back pain Low back pain : Follow up if no improvement or if symptoms worsen Indication: Low back pain Acute pharyngitis : Sore throat: diagnosis and treatment Indication: Acute pharyngitis Acute pharyngitis : *Antibiotic Usage Education - Female Indication: Acute pharyngitis Urinary frequency : follow up for recheck urine 1 week after complete antibiotic Indication: Urinary frequency Urinary frequency : *UTI treatment Indication: Urinary frequency Urinary frequency : Water in diet, brief version Indication: Urinary frequency Aphthae, oral : Follow up if no improvement or if symptoms worsen Indication: Aphthae, oral Hypothyroidism : Continue Current Prescription(s) Indication: Hypothyroidism Hypertension, benign : Diet, Exercise, and Wt loss Indication: Hypertension, benign Hypertension, benign : HTN/CAD Red Flags Indication: Hypertension, benign Hyperlipidemia, unspecified : *Cholesterol - Nonprescription Treatment Indication: Hyperlipidemia, unspecified Hyperlipidemia, unspecified : Cholesterol mgmt Indication: Hyperlipidemia, unspecified LYMPHADENITIS, ACUTE (683.) : Reviewed Diagnostic Tests Indication: LYMPHADENITIS, ACUTE (683.) LYMPHADENITIS, ACUTE (683.) : Follow up - Make appt after diagnostic tests Indication: LYMPHADENITIS, ACUTE (683.) Hypercalcemia : Follow up in 3 months for gen med with KF Indication: Hypercalcemia Headache : Reviewed Lab Indication: Headache Headache : Reviewed Diagnostic Tests Indication: Headache Acute sinusitis, unspecified : Follow up in 1 week Indication: Acute sinusitis, unspecified Osteopenia : Reviewed Diagnostic Tests Indication: Osteopenia Osteopenia : *Bisphosphonate Education Indication: Osteopenia Osteopenia : *Calcium Education (KF) Indication: Osteopenia Hypothyroidism : Continue Current Prescription(s) Indication: Hypothyroidism Hyperlipidemia, unspecified : FOLLOW UP IN 6 MONTHS Indication: Hyperlipidemia, unspecified Hypertension, benign : HTN/CAD Red Flags Indication: Hypertension, benign Hyperlipidemia, unspecified : *Cholesterol - Nonprescription Treatment Indication: Hyperlipidemia, unspecified Hyperlipidemia, unspecified : CHOLESTEROL MGMT. Indication: Hyperlipidemia, unspecified Low back pain : Reviewed Diagnostic Tests Indication: Low back pain Pain of upper extremity, unspecified laterality : FOLLOW UP - MAKE APPT AFTER DIAGNOSTIC TESTS Indication: Pain of upper extremity, unspecified laterality Hypertension, benign : FOLLOW UP IN 4 MONTHS Indication: Hypertension, benign Hypertension, benign : HTN/CAD Red Flags Indication: Hypertension, benign Hyperlipidemia, unspecified : CHOLESTEROL MGMT. Indication: Hyperlipidemia, unspecified Hyperlipidemia, unspecified : *Cholesterol - Nonprescription Treatment Indication: Hyperlipidemia, unspecified Hyperlipidemia, unspecified : *Cholesterol - Medication Side Effects Indication: Hyperlipidemia, unspecified Hypothyroidism : Continue Current Prescription(s) Indication: Hypothyroidism Hypertension, benign : Diet, Exercise, and Wt loss Indication: Hypertension, benign Hypertension, benign : HTN/CAD Red Flags Indication: Hypertension, benign Hyperlipidemia, unspecified : CHOLESTEROL MGMT. Indication: Hyperlipidemia, unspecified Hyperlipidemia, unspecified : Cholesterol - Nonprescription Treatment Indication: Hyperlipidemia, unspecified Hyperlipidemia, unspecified : Cholesterol - Medication Side Effects Indication: Hyperlipidemia, unspecified Diverticulosis of colon : Diverticulosis Indication: Diverticulosis of colon Osteoporosis : Well Female Maintenance (KF) Indication: Osteoporosis Osteoporosis : Bisphosphonate Education Indication: Osteoporosis Hyperlipidemia, unspecified : CHOLESTEROL MGMT. Indication: Hyperlipidemia, unspecified Hyperlipidemia, unspecified : Cholesterol - Medication Side Effects Indication: Hyperlipidemia, unspecified Hyperlipidemia, unspecified : Cholesterol - Nonprescription Treatment Indication: Hyperlipidemia, unspecified Hypertension, benign : Diet, Exercise, and Wt loss Indication: Hypertension, benign Hypertension, benign : HTN/CAD Red Flags Indication: Hypertension, benign Knee pain : Reviewed Diagnostic Tests: partail thickness tear in patella tendon -- spoke with knapic Indication: Knee pain Hypertension, benign : Diet, Exercise, and Wt loss Indication: Hypertension, benign Hypertension, benign : HTN/CAD Red Flags Indication: Hypertension, benign Hypertension, benign : BP MONITORING - SELF Indication: Hypertension, benign Diverticulosis of colon : Diverticulosis Indication: Diverticulosis of colon Osteoporosis : Well Female Maintenance (KF) Indication: Osteoporosis Hypothyroidism : Reviewed Lab Indication: Hypothyroidism Hyperlipidemia, unspecified : Cholesterol - Nonprescription Treatment Indication: Hyperlipidemia, unspecified Hyperlipidemia, unspecified : CHOLESTEROL MGMT. Indication: Hyperlipidemia, unspecified Hyperlipidemia, unspecified : Cholesterol - Medication Side Effects Indication: Hyperlipidemia, unspecified Hypertension, benign : Diet, Exercise, and Wt loss Indication: Hypertension, benign Hypertension, benign : HTN/CAD Red Flags Indication: Hypertension, benign Hyperlipidemia, unspecified : CHOLESTEROL MGMT. Indication: Hyperlipidemia, unspecified Hyperlipidemia, unspecified : Cholesterol - Nonprescription Treatment Indication: Hyperlipidemia, unspecified Hyperlipidemia, unspecified : Cholesterol - Medication Side Effects Indication: Hyperlipidemia, unspecified Osteopenia : Well Female Maintenance (KF) Indication: Osteopenia Hypertension, benign : Continue Current Prescription(s) Indication: Hypertension, benign Diverticulosis of colon : Diverticulosis Indication: Diverticulosis of colon Other pulmonary embolism and infarction : see the flowsheet for dose adjustments Indication: Other pulmonary embolism and infarction Hypertension, benign : BP MONITORING - SELF Indication: Hypertension, benign Hypertension, benign : Continue Current Prescription(s) Indication: Hypertension, benign Diverticulosis of colon : Diverticulosis Indication: Diverticulosis of colon Osteopenia : Well Female Maintenance (KF) Indication: Osteopenia Hyperlipidemia, unspecified : Continue Current Prescription(s) Indication: Hyperlipidemia, unspecified Hypothyroidism : Continue Current Prescription(s) Indication: Hypothyroidism Acute sinusitis, unspecified : *URI Treatment Indication: Acute sinusitis, unspecified Acute sinusitis, unspecified : URI Symptoms Indication: Acute sinusitis, unspecified Osteoporosis : Well Female Maintenance (KF) Indication: Osteoporosis Diverticulosis of colon : Diverticulosis Indication: Diverticulosis of colon Hypertension, benign : HTN/CAD Red Flags Indication: Hypertension, benign Hyperlipidemia, unspecified : Cholesterol - Nonprescription Treatment Indication: Hyperlipidemia, unspecified Hyperlipidemia, unspecified : Cholesterol - Medication Side Effects Indication: Hyperlipidemia, unspecified Planned Observations Metabolic Panel, Comprehensive ([id number])Indication: Chronic kidney disease, stage IV (severe) On: 0-Paa-223585:01 Request CBC & PLATELETS (AUTO) ([id number])Indication: Anemia On: 8-Iif-586759:01 Request PT (PROTHROMBIN TIME) ([id number])Indication: Therapeutic drug monitoring On: :12 Request Metabolic Panel, Comprehensive ([id number])Indication: Chronic kidney disease, stage IV (severe) On: 54-Nkh-682208:40 Request PT (Prothrobim Time) ([id number])Indication: 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 On: 70-Fle-768774:39 Request Comments: call results directly to Dr Steward [phone] Metabolic Panel, Basic ([id number])Indication: Chronic kidney disease, stage IV (severe) On: 22-Hsn-351774:35 Request C-REACTIVE PROTEIN ([id number])Indication: CRP elevated On: 41-Eks-94370:29 Request Sedimentation Rate-ESR ([id number])Indication: CRP elevated On: 25-Mhv-29553:29 Request Metabolic Panel, Basic ([id number])Indication: Abnormal blood finding On: 68-Cra-745474:30 Request CALCIFIDIOL ([id number]) VIT D 25Indication: Chronic fatigue On: 6-Pli-073263:24 Request VITAMIN B-12 (CYANOCOBALAMIN) ([id number])Indication: Chronic fatigue On: 7-Prm-702655:24 Request SED RATE ERYTHROCYTE ([id number])Indication: Chronic fatigue On: 4-Ypi-619817:23 Request METABOLIC PANEL, COMPREHENSIVE ([id number])Indication: Chronic fatigue On: 4-Uur-742416:23 Request C-REACTIVE PROTEIN ([id number])Indication: Chronic fatigue On: :23 Request CBC (AUTO) ([id number])Indication: Chronic fatigue On: :23 Request CBC & PLATELETS (AUTO) ([id number])Indication: Chronic kidney disease, stage IV (severe) On: :25 Request Comments: to Dr. Felix Parra IRON & TOTAL IRON BINDING CAPACITY ([id number])Indication: Chronic kidney disease, stage IV (severe) On: :25 Request Comments: to Dr. Felix Parra PT (PROTHROMBIN TIME) ([id number])Indication: Chronic kidney disease, stage IV (severe) On: :24 Request Comments: to Dr. Felix Parra CBC, Platelets & Auto Diff ([id number])Indication: B-cell lymphoma On: :19 Request Metabolic Panel, Basic ([id number])Indication: Chronic kidney disease, stage IV (severe) On: :18 Request CBC, PLATELETS & MANUAL DIFF ([id number])Indication: 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 On: 67-Cfq-620729:00 Request IRON BINDING CAPACITY (TIBC) ([id number])Indication: [facility] current use of anticoagulant On: 65-Ddy-113736:00 Request FERRITIN ([id number])Indication: 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 On: 45-Kim-126860:00 Request PT (PROTHROMBIN TIME) ([id number])Indication: 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 On: 71-Ibp-885103:00 Request Metabolic Panel, Basic ([id number])Indication: Hypertension, benign On: 6-Dus-363100:44 Request FECAL OCCULT- Tubes sent home ([id number])Indication: Encounter for screening for malignant neoplasm of colon (Renamed from Special screening for malignant neoplasms, colon) On: 3-Gpl-481729:25 Request PT (Prothrobim Time) ([id number])Indication: [facility] current use of anticoagulant On: 0-Geb-066546:08 Request URINALYSIS, W/ MICRO ([id number])Indication: Hypertension, benign On: 78-Tlq-353647:45 Request MICROALBUMIN: CREATININE RATIO ([id number]) AND ([id number])Indication: Hypertension, benign On: 33-Rbl-105636:45 Request LIPID PANEL ([id number])Indication: Hyperlipidemia, unspecified On: 34-Hzr-145095:45 Request D-Dimer ([id number])Indication: Difficulty breathing On: 21-Oqo-556744:09 Request Vitamin D Hydroxy ([id number])Indication: Osteopenia On: 46-Bjp-690613:16 Request CBC W/AUTO DIFF WBC ([id number])Indication: Hyperlipidemia, unspecified On: 14-Lws-508116:19 Request Comments: pls assure i get copy of all lab i ordered METABOLIC PANEL, COMPREHENSIVE ([id number])Indication: Hyperlipidemia, unspecified On: 85-Hry-346132:17 Request LIPID PANEL ([id number])Indication: Hyperlipidemia, unspecified On: 10-Pau-656519:17 Request URINALYSIS, W/ MICRO ([id number])Indication: Hypertension, benign On: 09-Tmb-447996:11 Request MICROALBUMIN: CREATININE RATIO ([id number]) AND ([id number])Indication: Hypertension, benign On: 41-Mte-163793:11 Request CALCIFIDIOL ([id number]) VIT D 25Indication: FATIGUE On: :31 Request Folate ([id number])Indication: FATIGUE On: :31 Request VITAMIN B-12 (CYANOCOBALAMIN) ([id number])Indication: FATIGUE On: :31 Request SED RATE ERYTHROCYTE ([id number])Indication: FATIGUE On: :31 Request RHEUMATOID FACTOR-QUANT ([id number])Indication: FATIGUE On: :31 Request METABOLIC PANEL, COMPREHENSIVE ([id number])Indication: FATIGUE On: :31 Request C-REACTIVE PROTEIN ([id number])Indication: FATIGUE On: :31 Request CBC (AUTO) ([id number])Indication: FATIGUE On: :31 Request ZAY (ANTINUCLEAR ANTIBODY) ([id number])Indication: FATIGUE On: :31 Request URINALYSIS, W/ MICRO ([id number])Indication: Hypertension, benign On: :30 Request MICROALBUMIN: CREATININE RATIO ([id number]) AND ([id number])Indication: Hypertension, benign On: :30 Request LIPID PANEL ([id number])Indication: Hyperlipidemia, unspecified On: :30 Request URINE ANURAG CULTURE-TYSON COL COUNT ([id number])Indication: Urinary frequency On: :06 Request URINALYSIS, W/ MICRO ([id number])Indication: Hypertension, benign On: 64-Owt-311403:56 Request MICROALBUMIN: CREATININE RATIO ([id number]) AND ([id number])Indication: Hypertension, benign On: 97-Fnu-179816:56 Request METABOLIC PANEL, COMPREHENSIVE ([id number])Indication: Hypertension, benign On: 12-Qzv-636900:56 Request CBC WITH MANUAL DIFF ([id number])Indication: Hypertension, benign On: 42-Nsy-048535:56 Request LIPID PANEL (59403)Indication: Hyperlipidemia, unspecified On: 59-Rqj-325980:56 Request CBC with manual diff ([id number])Indication: LYMPHOMA, NOS On: 6-Dos-056103:15 Request Comments: pls fax a copy to [phone] PT (Prothrobim Time) ([id number])Indication: 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 On: 4-Wiu-255563:14 Request Comments: pls fax a copy to [phone] PTT (Activated Partial Thromboplastin Time) ([id number])Indication: 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 On: 2-Inb-118832:14 Request LDH (LD) (LACTATE DEHYDROGENASE) ([id number])Indication: LYMPHADENITIS, ACUTE (683.) On: 26-Qpv-223128:37 Request SED RATE ERYTHROCYTE ([id number])Indication: LYMPHADENITIS, ACUTE (683.) On: 67-Khp-024725:36 Request C-REACTIVE PROTEIN ([id number])Indication: LYMPHADENITIS, ACUTE (683.) On: 88-Oxz-225145:36 Request CBC WITH MANUAL DIFF ([id number])Indication: LYMPHADENITIS, ACUTE (683.) On: 56-Wgw-645682:36 Request METABOLIC PANEL, COMPREHENSIVE ([id number])Indication: LYMPHADENITIS, ACUTE (683.) On: 11-Cnq-611082:36 Request CALCIUM, IONIZED ([id number])Indication: Hypercalcemia On: :03 Request CALCIUM SERUM ([id number])Indication: Hypercalcemia On: 9-Jvg-547573:03 Request Metabolic Panel, Comprehensive ([id number])Indication: Hyperlipidemia, unspecified On: 45-Eqs-799323:33 Request T4, FREE (THYROXINE) ([id number])Indication: Hypothyroidism On: 36-Pzt-158100:15 Request T3, FREE (TRIDOTHYRONINE) ([id number])Indication: Hypothyroidism On: 97-Vmc-361352:15 Request LIPOPROTEIN, BLD, BY NMR ([id number])Indication: Hypertension, benign On: 2-Akt-690914:50 Request METABOLIC PANEL, COMPREHENSIVE ([id number])Indication: Hypertension, benign On: 76-Bfv-516660:52 Request MICROALBUMIN: CREATININE RATIO ([id number]) AND ([id number])Indication: Hypertension, benign On: :52 Request LIPOPROTEIN, BLD, BY NMR ([id number])Indication: Hypertension, benign On: 37-Osi-515453:52 Request LIPID PANEL ([id number])Indication: Hypertension, benign On: :52 Request CBC WITH MANUAL DIFF ([id number])Indication: Hypertension, benign On: 73-Oet-119671:52 Request Vitamin D Hydroxy ([id number])Indication: Osteoporosis On: 3-Nem-592835:35 Request URINALYSIS W/O MICRO ([id number])Indication: Hypertension, benign On: 0-Iuw-121097:35 Request MICROALBUMIN: CREATININE RATIO ([id number]) AND ([id number])Indication: Hypertension, benign On: 9-Cgb-169348:35 Request METABOLIC PANEL, COMPREHENSIVE ([id number])Indication: Hypertension, benign On: :35 Request LIPOPROTEIN, BLD, BY NMR ([id number])Indication: Hypertension, benign On: 2-Gwz-552141:35 Request LIPID PANEL ([id number])Indication: Hypertension, benign On: 0-Rfx-127735:35 Request CBC WITH MANUAL DIFF ([id number])Indication: Hypertension, benign On: 1-Vop-356851:35 Request PT/INR, Office ([id number])Indication: 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 On: :32 Request Comments: done awinr 2.8 same dose zaida 2-3 weeks PT/INR, Office ([id number])Indication: Other pulmonary embolism and infarction On: :55 Request URINALYSIS W/O MICRO ([id number])Indication: Hypertension, benign On: :47 Request MICROALBUMIN URINE QUANT ([id number])Indication: Hypertension, benign On: :47 Request LIPID PANEL ([id number])Indication: Hypertension, benign On: :47 Request METABOLIC PANEL, COMPREHENSIVE ([id number])Indication: Hypertension, benign On: :47 Request CBC WITH MANUAL DIFF ([id number])Indication: Hypertension, benign On: :47 Request PT/INR, Office ([id number])Indication: Other pulmonary embolism and infarction On: 12-Fgh-371733:19 Request PT/INR, Office ([id number])Indication: Other pulmonary embolism and infarction On: 33-Kfg-970268:49 Request Glucose, PP/2 Hour ([id number])Indication: Family history of diabetes mellitus On: :17 Request URINALYSIS W/O MICRO ([id number])Indication: Hypertension, benign On: :17 Request METABOLIC PANEL, COMPREHENSIVE ([id number])Indication: Hypertension, benign On: :17 Request MICROALBUMIN URINE QUANT ([id number])Indication: Hypertension, benign On: :17 Request LIPID PANEL ([id number])Indication: Hypertension, benign On: :17 Request CBC WITH MANUAL DIFF ([id number])Indication: Hypertension, benign On: :17 Request PT/INR, Office ([id number]) On: :29 Request Planned Encounters Medical; 6 Week FU - On: 15-Aug-2018 11:00 [facility] Anya Steward DO, DO, Kathleen Planned Procedures CT - Abdomen (Without Contrast)By: On: 03-Jan-2018 Intent Anya Steward DO, DO, Kathleen CT SCAN OF ABDOMEN WITH CONTRAST On: 22-Dec-2017 Intent ([id number])By: Anya Steward DO, DO, Kathleen CT - Abdomen & Pelvis (IV Contrast On: 19-Jun-2017 Intent Needed)By: Anya Steward DO, DO, Kathleen PFT - CompleteBy: Nichelle MURRIETA, On: 15-Jun-2017 Intent Anya Dumont DO Comments: with DLCO B 12 Injection, 1000 mcg ([id number])By: On: 15-Jun-2017 Intent Anya Steward DO, DO, Comments: 1ml given lt dltd lot [id number] exp 09/18 Anya Radiology - Chest- PA and LatBy: On: 15-Jun-2017 Intent Anya Steward DO, DO, Kathleen Spirometry ([id number])By: Nichelle MURRIETA, On: 15-Jun-2017 Intent Anya Dumont DO Comments: moderate obstruction ELECTROCARDIOGRAM, COMPLETE (ECG) On: 15-Jun-2017 Intent ([id number])By: Anya Steward DO Comments: nsr no acute chg Anya Steward DO Radiology - Abdomen SeriesBy: On: 15-May-2017 Intent Yolanda Zarco SCREENING DIGITAL TOMOSYNTHESIS OF On: 14-Dec-2016 Intent BREAST ([id number])By: Anya Steward DO, DO, Kathleen MRI OF THORACIC SPINE WITHOUT On: 05-Dec-2016 Intent CONTRAST ([id number])By: Anya Steward DO, DO, Kathleen Inhaler Demo ([id number])By: Nichelle MURRIETA, On: 23-Sep-2016 Intent Anya Dumont DO Spirometry ([id number])By: Nichelle MURRIETA, On: 23-Sep-2016 Intent Anya Dumont DO Comments: restrictive pattern Radiology - Chest- PA and LatBy: On: 23-Sep-2016 Intent Anya Steward DO, DO, Kathleen Aerosol Treatment ([id number])By: Nichelle On: 23-Sep-2016 Intent DO, Anya Nichelle DO, Anya Comments: 0.83% albulterol more a/e more noisy with diffuse inspir and exp wheeze DEXA SCAN AXIAL SKELETON ([id number])By: On: 02-Nov-2015 Intent Nichelle DOAnya Nichelle DO, Anya MAMMOGRAM, SCREENING, BOTH BREAST On: 02-Nov-2015 Intent ([id number])By: Anya Steward DO Nichelle DOAnya Inhaler Demo ([id number])By: Nichelle DO, On: 07-Oct-2015 Intent Anya Nichelle DO, Anya Aerosol Treatment ([id number])By: Nichelle On: 07-Oct-2015 Intent DOAnya Nichelle DOAnya Comments: no hweeze but still tight Radiology - Chest- PA and LatBy: On: 07-Oct-2015 Intent Nichelle DOAnya Nichelle DO, Anya Radiology - Cervical SpineBy: Nichelle On: 17-Sep-2015 Intent DOAnya Nichelle DO, Anya CT - ChestBy: NichelleBela basurto DOhleen On: 16-Jan-2015 Intent Nichelle DOAnya Doppler Ultrasound OtherBy: Nichelle On: 14-Jan-2015 Intent DOAnya Nichelle DOAnya Comments: b/l lower extremities COMPUTED TOMOGRAPHY ANGIOGRAPHY OF On: 14-Jan-2015 Intent CHEST FOR PULMONARY EMBOLISM Comments: Pls call [phone] with wet read ([id number])By: Nichelle DOAnya Nichelle DOAnya Radiology - ChestBy: Nichelle DO, On: 14-Jan-2015 Intent Anya Nichelle DO Anya OtherBy: Nichelle DO Anya Nichelle On: 14-Jan-2015 Intent DOBelaAnya Comments: 3-phase bone scan-- history of lymphoma and osteopenia Jighbfbnu-Udh-Yagpb ([id number])By: On: 12-Dec-2014 Intent Nichelle DOAnya Nichelle DO, Anya DEXA SCAN AXIAL SKELETON ([id number])By: On: 19-Nov-2014 Intent Nichelle DOBelaAnya Nichelle DO, Anya Radiology - Hip - RightBy: Nichelle On: 22-Oct-2014 Intent Anya MURRIETA DO, Kathleen Prevnar 13 ([id number])By: Nichelle MURRIETA, On: 10-Jul-2014 Intent Anya Dumont DO EKG ([id number])By: Anya Steward DO On: 10-Jul-2014 Intent Anya Steward DO Comments: sinus nicolas noacute chg FLU VAC, SPLIT, >3 YEARS, INTRAMUSC On: 22-May-2013 Intent ([id number])By: Sariah Brantley LPN Comments: lot [id number] 2013site/route L thomas, IMamt 0.5mlVIS and ABN signed when applicableChepaul oliver [facility], [facility] ADMINISTRATION OF INFLUENZA VIRUS On: 22-May-2013 Intent VACCINE (G0008)By: Sariah Brantley LPN B 12 Injection, 1000 mcg (J3420)By: On: 15-Apr-2013 Intent Akosua Gannon Comments: Lot:[id number]:Dose:1mlRoute:IMSite:l armGiven By:OLIVIER signed Eprescribed prescriptions ([id number])By: On: 15-Apr-2013 Intent Akosua Gannon EKG ([id number])By: Anya Steward DO On: 18-Feb-2013 Intent Anya Steward DO Comments: nsr no acute chg B 12 Injection, 1000 mcg ([id number])By: On: 18-Feb-2013 Intent Anya Steward DO, DO, Comments: lot: [id number]: 01/11site/route: R deltoid/IMamt: 1mLVIS signed when applicableCheRiple[facility] Anya TDAP VACCINE >7 IM ([id number])By: Nichelle On: 18-Feb-2013 Intent Anya MURRIETA DO, Kathleen Comments: lot: [id number]: 05/08/15site/route: L deltoid/IMamt: 0.5mLVIS signed when applicable: yesChelslee [facility] MAMMOGRAM, SCREENING, BOTH BREASTS On: 18-Feb-2013 Intent ([id number])By: Anya tSeward DO Comments: dx screening Anya Steward DO Eprescribed prescriptions ([id number])By: On: 18-Feb-2013 Intent Yolanda Dove LPN Toradol Injection, 30 mg ([id number])By: On: 13-Nov-2012 Intent Madonna Nation LPN Comments: Lot #[id number]-right hipDose-30mggiven by: Yony Nation LPN Radiology - ChestBy: Miri Polanco CNP On: 13-Nov-2012 Intent E Comments: attention Rt ribs SPECIMEN HNDLNG/TRNSPRT, OFFC > LAB On: 24-Sep-2012 Intent ([id number])By: Sariah Brnatley LPN Eprescribed prescriptions ([id number])By: On: 06-Sep-2012 Intent Anya Steward DO, DO, Kathleen FLU VAC, SPLIT, >3 YEARS, INTRAMUSC On: 08-Jun-2012 Intent (53001)By: Miri Polanco CNP Comments: Lot:[id number]:6.13Amt:prefilled syringeSite: L Dltd, IMGiven by: ELICEO EspanaVIS signed ADMINISTRATION OF INFLUENZA VIRUS On: 08-Jun-2012 Intent VACCINE (G0008)By: Miri Polanco CNP Eprescribed prescriptions ([id number])By: On: 04-Apr-2012 Intent Miri Polanco CNP SPECIMEN HANDLING/TRANSPORT On: 04-Apr-2012 Intent ([id number])By: Sariah Brantley LPN EKG ([id number])By: Anya Steward DO On: 22-Jun-[address] - OtherBy: Anya Steward DO On: 02-Jun-2011 Intent Anya Steward DO Comments: CT guided biopsy per Dr. Guerra office can choose which area is easiest for doctor to get to there are 2 areas of concern, pls see CT abd/pelvis already resulted please send a copy to Dr. Guerra FLU VAC, SPLIT, >3 YEARS, INTRAMUSC On: 25-May-2011 Intent ([id number])By: Anya Steward DO Comments: 0.5cc given im lt arm lot [id number] exp 01-28-12 Nichelle DO, Anya ADMINISTRATION OF INFLUENZA VIRUS On: 25-May-2011 Intent VACCINE (G0008)By: Anya Steward DO, DO, Kathleen CT - Abdomen & Pelvis (IV Contrast On: 25-May-2011 Intent Needed)-- attention to mass in R groin-- pt has lymphoma in remissionBy: Anya Steward DO, DO, Kathleen Solu -Medrol Injection, 125 mg On: 18-Apr-2011 Intent ([id number])By: Miri Polanco CNP Comments: Lot #[id number]-L hip, IMDose 125mggiven by:DEYANIRA MRI - BrainBy: Miri Polanco CNP On: 17-Mar-2011 Intent Comments: today if possible Carotid DopplerBy: Miri Polanco CNP On: 17-Mar-2011 Intent DXA, BONE DENSITY, AXIAL SKELETON On: 23-Dec-2010 Intent ([id number])By: Anya Steward DO, DO, Kathleen EKG ([id number])By: Anya Steward DO On: 23-Dec-2010 Intent Anya Steward DO Comments: nsr no acute chg MRI - Left arm- attention; deltoid On: 07-Jul-2010 Intent area -bulgeBy: Anya Steward DO, DO, Kathleen Radiology - PelvisBy: Nichelle MURRIETA, On: 07-Jul-2010 Intent Anya Dumont DO Radiology - Lumbar SpineBy: Nichelle On: 07-Jul-2010 Intent Anya MURRIETA DO, Kathleen Radiology - Hip - RightBy: Nichelle On: 07-Jul-2010 Intent DOAnay DO, Kathleen FLU VAC, SPLIT, >3 YEARS, INTRAMUSC On: 07-Jul-2010 Intent ([id number])By: Yolanda Dove LPN Comments: 0.5cc given im lt arm lot [id number] 4p exp 4-11 ADMINISTRATION OF INFLUENZA VIRUS On: 07-Jul-2010 Intent VACCINE (G0008)By: Yolanda Dove LPN ADMINISTRATION OF PNEUMOCOCCAL On: 13-Apr-2009 Intent VACCINE (G0009)By: Anya Steward DO, DO, Kathleen PNEUM VAC ADLT/IMUMNOSPR, SBC/INTRM On: 13-Apr-2009 Intent ([id number])By: Anya Steward DO Comments: 0.5cc given im rt dltd lot [id number] exp 01-01-10 Ayna Steward DO EKG ([id number])By: Yolanda Dove LPN On: 13-Apr-2009 Intent Comments: rob beckwith no acute changes IMMUNIZ ADMNIN, 1 VAC, SNGL/COMBO On: 13-Apr-2009 Intent ([id number])By: Yolanda Dove LPN FLU VAC, SPLIT, >3 YEARS, INTRAMUSC On: 13-Apr-2009 Intent ([id number])By: Yolanda Dove LPN Comments: rob andrade 0.5 cc [place] im [place] [id number] 4p exp 12-07 MRI - Knee(s) - LeftBy: Nichelle MURRIETA, On: 20-Jun-2008 Intent Anya Dumont DO EKG ([id number])By: Anya Steward DO On: 18-Feb-2008 Intent Anya Steward DO Comments: NSR NO ACUTE CHANGES--NONSPECIFIC CHANGESNO CHANGES DXA, BONE DENSITY, AXIAL SKELETON On: 09-Jul-2007 Intent ([id number])By: Anya Steward DO, DO, Kathleen MAMMOGRAM, SCREENING, BOTH BREASTS On: 09-Jul-2007 Intent ([id number])By: Anya Steward DO, DO, Kathleen EKG ([id number])By: Anya Steward DO On: 28-Feb-2007 Intent Anya Steward DO Comments: nsr no ischemic changes Planned Medications INJECTION, KETOROLAC TROMETHAMINE, PER 15 MG Ordered: 13-Nov-2012 Pending Madonna Nation LPN INJECTION, METHYLPREDNISOLONE SODIUM SUCCINATE, UP TO 125 MG Ordered: 18-Apr-2011 Pending Miri Polanco CNP Vitamin B-12 1000 MCG/ML Injection Solution Ordered: 18-Feb-2013 Pending Anya Steward DO, DO, Kathleen Vitamin B-12 1000 MCG/ML Injection Solution Ordered: 15-Apr-2013 Pending Akosua Gannon Vitamin B-12 1000 MCG/ML Injection Solution Ordered: 15-Jun-2017 Pending Anya Steward DO, DO, Kathleen Instructions Name Dates Details Non-smoker : How to access health information online Indication: Non-smoker Non-smoker : How to access health information online - Detail Indication: Non-smoker Non-smoker : Patient Instructions Indication: Non-smoker Non-smoker : How to access health information online Indication: Non-smoker Non-smoker : How to access health information online - Detail Indication: Non-smoker Sore throat : Patient Instructions Indication: Sore throat BMI 23.0-23.9, adult : How to access health information online Indication: BMI 23.0-23.9, adult BMI 23.0-23.9, adult : How to access health information online - Detail Indication: BMI 23.0-23.9, adult Urinary tract infection, recurrent : Patient Instructions Indication: Urinary tract infection, recurrent Dysuria : How to access health information online Indication: Dysuria Dysuria : How to access health information online - Detail Indication: Dysuria Dysuria : Patient Instructions Indication: Dysuria Non-smoker : How to access health information online Indication: Non-smoker Non-smoker : How to access health information online - Detail Indication: Non-smoker Non-smoker : Patient Instructions Indication: Non-smoker Non-smoker : How to access health information online Indication: Non-smoker Non-smoker : How to access health information online - Detail Indication: Non-smoker Non-smoker : Patient Instructions Indication: Non-smoker Non-smoker : How to access health information online Indication: Non-smoker Non-smoker : How to access health information online - Detail Indication: Non-smoker Non-smoker : Patient Instructions Indication: Non-smoker Non-smoker : How to access health information online Indication: Non-smoker Non-smoker : How to access health information online - Detail Indication: Non-smoker Non-smoker : Patient Instructions Indication: Non-smoker LYMPHOMA, NOS : How to access health information online Indication: LYMPHOMA, NOS LYMPHOMA, NOS : How to access health information online - Detail Indication: LYMPHOMA, NOS LYMPHOMA, NOS : Patient Instructions Indication: LYMPHOMA, NOS Non-smoker : How to access health information online Indication: Non-smoker Non-smoker : How to access health information online - Detail Indication: Non-smoker Non-smoker : Patient Instructions Indication: Non-smoker BMI between 19-24,adult : How to access health information online Indication: BMI between 19-24,adult BMI between 19-24,adult : How to access health information online - Detail Indication: BMI between 19-24,adult Elevated blood pressure reading : Patient Instructions Indication: Elevated blood pressure reading Non-smoker : How to access health information online Indication: Non-smoker Non-smoker : How to access health information online - Detail Indication: Non-smoker Non-smoker : Patient Instructions Indication: Non-smoker Non-smoker : How to access health information online Indication: Non-smoker Non-smoker : How to access health information online - Detail Indication: Non-smoker Non-smoker : Patient Instructions Indication: Non-smoker Non-smoker : How to access health information online Indication: Non-smoker Non-smoker : How to access health information online - Detail Indication: Non-smoker Non-smoker : Patient Instructions Indication: Non-smoker Non-smoker : How to access health information online Indication: Non-smoker Non-smoker : How to access health information online - Detail Indication: Non-smoker Non-smoker : Patient Instructions Indication: Non-smoker Status post-operative repair of closed fracture of right hip : Patient Instructions Indication: Status post-operative repair of closed fracture of right hip Urinary frequency : How to access health information online Indication: Urinary frequency Urinary frequency : How to access health information online - Detail Indication: Urinary frequency Urinary frequency : Patient Instructions Indication: Urinary frequency Chronic kidney disease, stage IV (severe) : How to access health information online Indication: Chronic kidney disease, stage IV (severe) Chronic kidney disease, stage IV (severe) : How to access health information online - Detail Indication: Chronic kidney disease, stage IV (severe) Chronic kidney disease, stage IV (severe) : Patient Instructions Indication: Chronic kidney disease, stage IV (severe) Walking pneumonia : Patient Instructions Indication: Walking pneumonia [facility] current use of anticoagulant : Patient Instructions Indication: 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 Cough : How to access health information online Indication: Cough Cough : How to access health information online - Detail Indication: Cough Cough : Patient Instructions Indication: Cough Hyperlipidemia, unspecified : How to access health information online Indication: Hyperlipidemia, unspecified Hyperlipidemia, unspecified : How to access health information online - Detail Indication: Hyperlipidemia, unspecified Hyperlipidemia, unspecified : Patient Instructions Indication: Hyperlipidemia, unspecified Hypothyroidism : How to access health information online Indication: Hypothyroidism Hypothyroidism : How to access health information online - Detail Indication: Hypothyroidism Hypothyroidism : Patient Instructions Indication: Hypothyroidism Rib pain : Patient Instructions Indication: Rib pain Rib pain : How to access health information online Indication: Rib pain Rib pain : How to access health information online - Detail Indication: Rib pain LYMPHOMA, NOS : How to access health information online Indication: LYMPHOMA, NOS LYMPHOMA, NOS : How to access health information online - Detail Indication: LYMPHOMA, NOS LYMPHOMA, NOS : Patient Instructions Indication: LYMPHOMA, NOS Osteopenia : Patient Instructions Indication: Osteopenia Bronchitis : How to access health information online Indication: Bronchitis Bronchitis : How to access health information online - Detail Indication: Bronchitis Bronchitis : Patient Instructions Indication: Bronchitis Hypertension, benign : Patient Instructions Indication: Hypertension, benign FATIGUE : Patient Instructions Indication: FATIGUE Hypothyroidism : Patient Instructions Indication: Hypothyroidism Acute pharyngitis : Patient Instructions Indication: Acute pharyngitis Urinary frequency : Patient Instructions Indication: Urinary frequency Encounters Office Visit On: 04-Jul-2018 10:08 Encounter Reason: Follow up ER - Reason for hospitalization DVT (left leg). Patient has been compliant with instructions. Current medication use: no side effects. The patient feels well with minor complaints (weak), has End: 04-Jul-2018 11:03 decreased energy level and is sleeping well. Patient sleeps 10 hours per night. Nutrition: balanced diet. Note for Follow up ER: Presents in wheelchair with grandson. Had ER on 06-30-18 with DVT Pt wit h known Factor V Leiden was taken off of warfarin by Oncologist Dr. Zacarias and now with DVTEncounter Diagnosis: BMI 23.0-23.9, adult, Non-smoker, DVT (deep venous thrombosis), Anemia, Chronic kidney disease, stage IV (severe) [facility] Office Visit On: 14-Jun-2018 13:53 Encounter Reason: Sore Throat - Onset was 3 week(s) ago. Note for Sore throat: Symptoms started about 3 weeks ago with cold symptoms-sore throat, nasal drainage-clear, cough-clear most of the time, chills, sinus pressu End: 14-Jun-2018 14:49 re, pain. No increased SOB, CP, wheezing, fever, body aches, ear pressure/pain. Has been taking severe OTC cold and allergy medication-works(takes 1/2 dose) -Is off coumadin per oncologist-hasn't been on it for close to a year.Encounter Diagnosis: BMI 23.0-23.9, adult, Non-smoker, Sore throat, Upper respiratory infection, acute, Cough [facility] Annotation/Addendum On: 22-Mar-2018 9:08 Encounter Diagnosis: E. coli UTI, Therapeutic drug monitoring End: 22-Mar-2018 9:12 [facility] Office Visit On: 13-Mar-2018 13:01 Encounter Reason: UTI - The urinary symptoms are described as frequency, urgency and hesitancy. The symptoms have been occurring for 1 week and have been constant. The urine is described as clear. The patient denies the End: 13-Mar-2018 13:52 use of oral contraceptives, antibiotics, hormone replacement therapy or pyridium/uristat. Note for Infection: Pt here last week for same symptoms-Feel pressure, burning, urgency and little output. No fever or chills, blood in urine, abd pain, or back pain, odor in urine. Was on 7 days of Macrobid-finished yesterday. Drinking a lot of fluids.Encounter Diagnosis: UTI symptoms, Non-smoker, BMI 23.0-23.9, adult, Urinary tract infection, recurrent, Dysuria [facility] Office Visit On: 05-Mar-2018 13:22 Encounter Reason: UTI - The urinary symptoms are described as frequency and urgency. The symptoms have been occurring for 2 days and have been constant. The urine is described as clear. The patient denies the use of ora End: 05-Mar-2018 13:56 l contraceptives, antibiotics, hormone replacement therapy or pyridium/uristat. 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 The course has been recurrent. The pain is described as a severe dull ache. The pain End: 24-Dec-2017 18:39 is described as being located in the left lower quadrant. The pain does not radiate. The symptoms have no aggravating factors. The symptoms have no relieving factors. There has been no associated bloating, constipation or diarrhea., [ADDITIONAL REASON] Incontinence - No changes in management were made at the last visit. Symptoms include incontinence and abdominal pain, while symptoms do not include urgency or frequency. The patient describes the incontinence as small volume. 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) [facility] Lab Order On: 21-Jul-2017 13:39 Encounter Diagnosis: Chronic kidney disease, stage IV (severe) End: 21-Jul-2017 13:41 [facility] Lab Order On: 14-Jul-2017 15:04 Encounter Diagnosis: Hypokalemia End: 14-Jul-2017 15:06 [facility] Office Visit On: 13-Jul-2017 10:34 Encounter Reason: Follow up acute care visit - The patient feeling better since last seen.Encounter Diagnosis: BMI 23.0-23.9, adult, Non-smoker, Chronic systolic congestive heart failure, Chronic kidney disease, stage IV (severe), End: 13-Jul-2017 11:14 Therapeutic drug monitoring, Edema extremities, 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 The End: 11-Jul-2017 13:21 patient feels well with minor complaints and has decreased energy level. Patient has been compliant with instructions., [ADDITIONAL REASON] Edema - No changes in management were made at the last visit. Symptoms include e rosales. The edema involves both lower extremities. Onset was sudden 1 week(s) ago. There is no known event that preceded symptom onset. The symptoms occur constantly. The patient describes this as moderate in severity and worsening. Encounter Diagnosis: BMI 23.0-23.9, adult, Non-smoker, LYMPHOMA, NOS, SBO (small bowel obstruction), Chronic kidney disease, stage IV (severe), Edema extremities, Chronic systolic congestive heart failure, [facility] current use of anticoagulant [facility] Annotation/Addendum On: 20-Jun-2017 9:13 Encounter Diagnosis: CRP elevated End: 20-Jun-2017 9:31 [facility] Office Visit On: 19-Jun-2017 14:20 Encounter Reason: Follow up tests - Date: (06/15/17 labs).Encounter Diagnosis: BMI 23.0-23.9, adult, Non-smoker, LYMPHOMA, NOS, Fatigue, Left lower quadrant pain, CRP elevated End: 19-Jun-2017 16:06 [facility] Visit On: 15-Jun-2017 13:49 Encounter Reason: Fatigue - Onset was 1 month(s) ago.Encounter Diagnosis: BMI 23.0- 23.9, adult, Non-smoker, SOB (shortness of breath), Chest pain, atypical, Fatigue, Anemia due to stage 3 chronic kidney disease, LYMPHOMA, NOS End: 15-Jun-2017 15:06 [facility] Visit On: 15-May-2017 14:07 Encounter Reason: Urinary problems - The urinary problems have been occurring for 5 days. Note for Urinary problems: Symptoms started about 5 days aog-[place] and didn't do anything about it. Urine frequency, End: 15-May-2017 15:10 urgency, ??left lower quad pain-constant pain. No burning with urination blood, odor, vaginal discharge, or itching, no new back pain, groin pain. No fever. Always cold. No changes in stool pattern.-pt has ostomy.Encounter Diagnosis: Non-smoker, BMI between 19-24,adult, Urine frequency, Left lower quadrant pain, Elevated blood pressure reading [facility] Visit On: 14-Dec-2016 11:04 Encounter Reason: Follow up tests - Date: (12/06/16 labs).Encounter Diagnosis: BMI between 19-24,adult, Non-smoker, Abnormal blood finding, Chronic kidney disease, stage IV (severe), Thoracic compression fracture, Chronic fatigue, End: 14-Dec-2016 11:58 Encounter for screening mammogram for breast cancer (Renamed from Encounter for screening mammogram for malignant neoplasm of breast) [facility] Phone Encounter On: 07-Dec-2016 11:29 Encounter Diagnosis: Abnormal blood finding End: 07-Dec-2016 11:31 [facility] Office Visit On: 05-Dec-2016 11:06 Encounter Reason: Back Pain - This condition occurred without any known injury. The injury involved the mid back. Symptoms include back pain. Note for Back pain: I have been seeing Dr. Denise and I want more then a temporay fix. End: 05-Dec-2016 12:26 Encounter Diagnosis: BMI between 19-24,adult, Non-smoker, Anemia due to stage 3 chronic kidney disease, Chronic fatigue, Thoracic compression fracture, Chronic thoracic back pain, unspecified back pain laterality [facility] Office Visit On: 27-Sep-2016 10:12 Encounter Reason: Follow up acute care visit - The patient feeling better since last seen. Patient has been compliant with instructions. Current medication use: no side effects and compliant with dosing regimen. Nutrition: balanced diet. End: 27-Sep-2016 10:49 Encounter Diagnosis: BMI between 19-24,adult, Non-smoker, SOB (shortness of breath) on exertion, Abnormal lung sounds, Walking pneumonia, Cough [facility] Visit On: 23-Sep-2016 9:01 Encounter Reason: Cough - No changes in management were made at the last visit. Symptoms include cough, wheezing and fever, while symptoms do not include chills, runny nose, stuffy nose or sore throat. The cough is descr End: 23-Sep-2016 10:55 ibed as loose and productive. Cough onset was sudden 1 week(s) ago. There is no known event that preceded symptom onset. The cough occurs constantly. Symptoms are described as moderate in severity and worsening.Encounter Diagnosis: BMI between 19-24,adult, Non-smoker, Cough, Walking pneumonia, SOB (shortness of breath) on exertion, Abnormal lung sounds [facility] Phone Encounter On: 21-Jul-2016 15:48 [facility] End: 21-Jul-2016 15:49 Office Visit On: 20-Jul-2016 12:31 Encounter Reason: Follow up tests - Diagnostic tests include other (labs).Encounter Diagnosis: Chronic kidney disease, stage IV (severe), B-cell lymphoma, BMI between 19-24,adult, Non-smoker, Hypotension End: 20-Jul-2016 14:33 [facility] Visit On: 12-Jul-2016 11:32 Encounter Reason: Transition into care - The patient is transitioning into care from a hospital and a summary of care was reviewed ., [ADDITIONAL REASON] Follow up hospital - Reason for ER visit: note: (hip fx). The patient feels well End: 12-Jul-2016 12:36 with minor complaints (BP was lower yesterday. ). Patient has been compliant with instructions. Hospital procedures performed were other (right hip partial replacement following hip fracture. ). Note f or Follow up hospital: broke hip repair per Dr. Lion, in hsopital BP bumped up started on lisinopril and potassium creat upt to 4.6 from baseline of 2.6. 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 Symptoms include runny nose and dry cough, while symptoms do not include fever or chills. Onset was sudden 4 day(s) ago.Encounter Diagnosis: End: 16-Jun-2016 14:12 Non-smoker, COUGH, NOS (786.2), FATIGUE (780.79), Cystitis, acute (Renamed from Acute cystitis) [facility] Office Visit On: 13-May-2016 13:28 Encounter Reason: UTI - The urinary symptoms are described as frequency and urgency. The symptoms have been occurring for 2 days and have been increasing. The urine is described as clear. There has been no associated ab End: 13-May-2016 13:52 dominal pain or low back pain. 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 Yes the patient did have () a mini mental status exam done tod End: 02-Nov-2015 15:28 ay. The activities of daily living the patient needs help with are housework. The patient has driven in past 6 months, put area rugs through house and put handrails in bathroom, but the patient has not had fecal incontinence, had urinary incontinence, missed or ran out of medications to soon, fallen in the past 6 months, gotten lost or has a medalert necklace or bracelet. The patient has completed the following preventative measures: PAP smear (2 yrs), mammography (with in year) and colonoscopy (8 yrs). The patient does have durable power of county attorney and living will. The patient has noticed feeling emptiness in life, feeling worthless and lack of energy. Other providers contributing to the patient's care are other: (kidney and cancer doc).Encounter Diagnosis: Annual Medicare Phyiscal WITHOUT abnormal findings (Renamed from Encounter for general adult medical examination without abnormal findings), Encounter for screening mammogram for breast cancer (Renamed from Encounter for screening mammogram f or malignant neoplasm of breast), Encounter for screening for malignant neoplasm of colon (Renamed from Special screening for malignant neoplasms, colon), Postmenopausal [facility] Office Visit On: 29-Oct-2015 13:02 Encounter Reason: Follow up for chronic medical issues - The patient feels well with minor complaints, has decreased energy level and is sleeping well. Patient has been compliant with instructions. Current medication use End: 29-Oct-2015 14:24 : no side effects and compliant with dosing regimen. Patient sleeps 8 hours per night. Nutrition: balanced diet and supplemental vitamins. The medical issues the patient is following up for include All identified problems below, high blood pressure, hypothyroid, osteoporosis/osteopenia and other. 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 Symptoms include cough and wheezing. The cough is described as productive. There is no known event that preceded symptom onset. The cough occurs constantly., End: 12-Oct-2015 8:02 [ADDITIONAL REASON] Follow up acute care visit - The patient feeling better since last seen. Patient has been compliant with instructions. Current medication use: no side effects and compliant with dosing regimen. Patient sleeps 6 hours per night. 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 Symptoms include cough and wheezing. The cough is described as productive. There is no known event that preceded symptom onset. The cough occurs constantly. 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 The injury occurred 3 week(s) ago at home. No changes in management were made at the last visit. Symptoms include neck pain, neck stiffness End: 17-Sep-2015 14:11 and impaired range of motion. Symptoms are located in the entire neck. There is no radiation. The patient describes the pain as aching., [ADDITIONAL REASON] Cough - No changes in management were made at the last visit. Symptoms include c ough, while symptoms do not include wheezing, chills or fever. The cough is described as hacking, moist and productive. Encounter Diagnosis: Neck pain, bilateral, Cough [facility] Office Visit On: 29-Jun-2015 13:16 Encounter Reason: Follow up tests - Date: (06/15/15 labs)., [ADDITIONAL REASON] Follow up for chronic medical issues - The patient feels well with minor complai End: 29-Jun-2015 16:57 nts, has good energy level and is sleeping well. Patient has been compliant with instructions. Current medication use: no side effects and compliant with dosing regimen. Patient sleeps 10 hours per nigh t. Nutrition: balanced diet and supplemental vitamins. The medical issues the patient is following up for include All identified problems below, high blood pressure, high cholesterol and hypothyroid. weight :. 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 Patient has been compliant with instructions. Current medication use: n End: 25-Mar-2015 13:35 o side effects and compliant with dosing regimen. Patient sleeps 8 hours per night. Nutrition: balanced diet and supplemental vitamins. The medical issues the patient is following up for include All ismael ntified problems below, high blood pressure, high cholesterol and hypothyroid. 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), Thoracic compression fracture [facility] Office Visit On: 19-Jan-2015 14:01 Encounter Reason: Follow up tests - Date: (01/16/15 test).Encounter Diagnosis: Rib pain, Abnormal Chest X-Ray (793.99), NODULE, NOS (782.2), Rib fracture, Thoracic compression fracture End: 19-Jan-2015 15:02 [facility] Visit On: 16-Jan-2015 14:00 Encounter Reason: Follow up tests - Date: (01.14.15).Encounter Diagnosis: Difficulty breathing, LYMPHOMA, NOS, Rib pain, Abnormal Chest X-Ray (793.99) End: 16-Jan-2015 14:42 [facility] Phone Encounter On: 14-Jan-2015 17:25 Encounter Diagnosis: FACTOR V DEFICIENCY, 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 It has been painful 1 week and it may be a new one but it hurts to breath.Encounter Diagnosis: Osteopenia (733.90), Rib pain, End: 14-Jan-2015 12:10 LYMPHOMA, NOS, Difficulty breathing [facility] Office Visit On: 12-Dec-2014 12:56 Encounter Reason: Follow up tests - Date: (12/02/14 bone density).Encounter Diagnosis: Osteopenia (733.90), Rib pain End: 12-Dec-2014 14:21 [facility] Visit On: 19-Nov-2014 13:35 Encounter Reason: Follow up for chronic medical issues - The patient feels well with minor complaints, has good energy level and is sleeping well. Patient has been compliant with instructions. Current medication use: no End: 19-Nov-2014 14:20 side effects and compliant with dosing regimen. Patient sleeps 8 hours per night. Nutrition: balanced diet and supplemental vitamins. The medical issues the patient is following up for include All ident ified problems below, high blood pressure, high cholesterol and hypothyroid. 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 No changes in management were made at the last visit. Symptoms include cough, while symptoms do not include wheezing, chills or fever. The cough is descr End: 13-Oct-2014 15:07 ibed as productive. There is no known event that preceded symptom onset., [ADDITIONAL REASON] Hip Problem - This condition occurred without any known injury. The injury invol anjum the right hip. This occurred 3 day(s) ago. Symptoms include hip problem. The symptoms are located in the right hip. Encounter Diagnosis: COUGH, NOS (786.2), Bronchitis, Sciatic pain [facility] Office Visit On: 10-Jul-2014 9:06 Encounter Reason: Follow up for chronic medical issues - The patient feels well with minor complaints, has decreased energy level and is sleeping well. Patient has been compliant with instructions. Current medication use End: 10-Jul-2014 11:28 : no side effects and compliant with dosing regimen. Patient sleeps 9 hours per night. Nutrition: inappropriate diet and supplemental vitamins. The medical issues the patient is following up for include All identified problems below, high blood pressure, high cholesterol and hypothyroid., [ADDITIONAL REASON] Annual Medicare Exam - Yes the patient did have a mini mental status exam done t [facility]. The activities of daily living the patient needs help with are housework and meal preparation. The patient has driven in past 6 months, fallen in the past 6 months, put area rugs through house and put handrails in bathroom. The patient has completed the following preventative measures: PAP smear (2012), mammography (2013) and colonoscopy (can't remember). The patient does have durable power of a ttorney and living will. The patient has noticed dissatisfaction with life, dropping activities and interests, feeling emptiness in life, poor spirits most of time, feeling helpless, staying at home rat her than doing something new or going out, feeling worthless, lack of energy and thinking most people are better off than them. Other providers contributing to the patient's care are other: ([id number]). 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 Patient has been compliant with instructions. Current medication use: no side e End: 22-May-2013 11:19 ffects, compliant with dosing regimen and considered effective by patient. Patient sleeps 7 hours per night. The medical issues the patient is following up for include All identified problems below and depression.Encounter Diagnosis: Anticoagulant, Current, Long-Term Use (V58.61), Depression/Anxiety (300.4), Need for prophylactic vaccination and inoculation against influenza (V04.81), Hypothyroidism (244.9) [facility] Office Visit On: 15-Apr-2013 10:59 Encounter Reason: Follow up Meds - The patient feels well with minor complaints, has decreased energy level and is sleeping well. Patient has been compliant with instructions. Current medication use: no side effects, com End: 15-Apr-2013 11:49 pliant with dosing regimen and considered effective by patient.Encounter Diagnosis: FATIGUE (780.79), Osteopenia (733.90) [facility] Office Visit On: 22-Mar-2013 12:20 Encounter Reason: Follow up Hypertension - There has been no associated anxiety or excessive caffeine intake.Encounter Diagnosis: FATIGUE (780.79), Hypertension,benign(401.1) End: 22-Mar-2013 12:29 [facility] Office Visit On: 18-Feb-2013 13:31 Encounter Reason: Follow up for chronic medical issues - The patient does not feel well, has decreased energy level and is sleeping well. Patient has been compliant with instructions. Current medication use: no side effe End: 18-Feb-2013 19:26 cts and compliant with dosing regimen. Patient sleeps 7 hours per night. Nutrition: poor nutrition. The medical issues the patient is following up for include All identified problems below, high blood p ressure, high cholesterol, hypothyroid and osteoporosis/osteopenia., [ADDITIONAL REASON] Annual Medicare Exam - The patient had reviewed and updated the family history, medication/s, past medical history and social history. Yes the patient did have () a mini mental status exam done today. The activities of daily living the patient needs help with are none (patient makes note that all of these tasks have become difficult for her to do, but she is still able to do them on her own.). The patient has driven in past 6 months, put area rugs through house and put handr ails in bathroom, but the patient has not had fecal incontinence, had urinary incontinence, missed or ran out of medications to soon, fallen in the past 6 months, gotten lost or has a medalert necklace or bracelet. The patient has completed the following preventative measures: PAP smear (sevral years by Dr. Martino), mammography (several years) and colonoscopy (within last 10 years). The patient does have durable power of county attorney and living will. The patient has noticed dissatisfaction with life, dropping activities and interests, feeling helpless, feeling worthless, lack of energy and thinking mos t people are better off than them. Other providers contributing to the patient's care are batching operator (Dr. Martino) and other: (Dr. Shields for pain management, Dr. Wilkerson for kidneys, Dr. Guerra for cancer). 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 Symptoms include back pain. Symptoms are located in the on the right side more than the left. The pain radiates to the abdomen (ribcage). End: 13-Nov-2012 12:04 e patient describes the pain as sharp. Onset was week(s) ago. The symptoms occur frequently. The patient describes symptoms as unchanged. Current treatment includes nonsteroidal anti-inflammatory drugs.Encounter Diagnosis: Low back pain (724.2), Rib pain on right side (786.50) [facility] Office Visit On: 24-Sep-2012 8:35 Encounter Reason: Sore Throat - Symptoms include sore throat, dysphagia, swollen glands and myalgias, while symptoms do not include fever or chills. The symptoms are symmetrical. There is no radiation. The patient descri End: 24-Sep-2012 9:33 bes the pain as dull, aching and burning. Onset was sudden 2 week(s) ago. The symptoms occur constantly. The patient describes this as moderate in severity and worsening. Symptoms are exacerbated by swa llowing liquids and swallowing solids. Associated symptoms include hoarseness, while associated symptoms do not include headache, ear pain, nausea, cough or fatigue.Encounter Diagnosis: PHARYNGITIS, ACUTE (462.), [place] eye (372.03) [facility] Office Visit On: 06-Sep-2012 9:15 Encounter Reason: Upper Respiratory Infection (URI) - The last clinic visit was 5 day(s) ago. No changes in management were made at the last visit. Symptoms include nasal congestion, runny nose, sore throat, hoarseness a End: 06-Sep-2012 10:08 nd productive cough, while symptoms do not include fever or chills. Onset was sudden day(s) ago. The symptoms occur constantly. The patient describes this as severe and worsening. Note for Upper respir atory infection: having difficulty swallowing wiht how sore throat is -venegas across forehead - and coughing Encounter Diagnosis: PHARYNGITIS, ACUTE (462.), Acute sinusitis, unspecified (461.9) [facility] Phone Encounter On: 13-Aug-2012 16:11 Encounter Diagnosis: Unspecified Diagnosis End: 13-Aug-2012 16:15 [facility] Office Visit On: 08-Jun-2012 8:24 Encounter Reason: Sinusitis/ - The duration of the symptoms are 3 days The course has been worsening. The sinusitis/ has no relieving factors. Associated features include The symptoms have been associated with ear pain ( End: 08-Jun-2012 12:31 ), nasal discharge/stuffy nose (clear), red eyes and sinus pain, while the symptoms have not been associated with sore throat, swollen lymph glands or teeth pain. No previous evaluations were reported.Encounter Diagnosis: Acute sinusitis, unspecified (461.9), Need for prophylactic vaccination and inoculation against influenza (V04.81) [facility] Office Visit On: 04-Apr-2012 7:58 Encounter Reason: Urinary problems - The onset of the urinary problems has been sudden and they have been occurring in a persistent pattern for 1 day. The course has been increasing. The urinary problems are described as End: 04-Apr-2012 8:34 moderate. The urinary problem is characterized as frequency and urgency. There has been no associated fever / chills, back pain, nausea or blood in urine.Encounter Diagnosis: Urinary frequency (788.41) [facility] Phone Encounter On: 10-Jan-2012 15:02 Encounter Diagnosis: Unspecified Diagnosis End: 10-Jan-2012 15:04 [facility] Office Visit On: 28-Oct-2011 8:34 Encounter Reason: Oral Mucosal Lesion - The lesion(s) is/are described as painful and white. The patient describes the pain as burning. Onset was sudden 1 week(s) ago. The symptoms occur constantly. The patient describes End: 28-Oct-2011 9:01 this as moderate in severity and worsening. Associated symptoms include sore throat (previous week), while associated symptoms do not include fever, cracked lips, skin lesion(s), diarrhea or weight loss.Encounter Diagnosis: Aphthae, oral (528.2) [facility] Office Visit On: 22-Jun-2011 9:57 Encounter Reason: Follow up for chronic medical issues - The patient feels well with minor complaints, has good energy level and is sleeping well. Patient has been compliant with instructions. Current medication use: no End: 22-Jun-2011 11:01 side effects and compliant with dosing regimen. Patient sleeps 6 hours per night. Nutrition: balanced diet and supplemental vitamins. The medical issues the patient is following up for include All ident ified problems below, high blood pressure and high cholesterol. 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), Hypothyroidism (244.9) [facility] Lab Order On: 17-Jun-2011 14:17 Encounter Diagnosis: Anticoagulant, Current, Long-Term Use (V58.61) End: 17-Jun-2011 14:17 [facility] Phone Encounter On: 02-Jun-2011 11:13 Encounter Diagnosis: Anticoagulant, Current, Long-Term Use (V58.61), LYMPHOMA, NOS End: 02-Jun-2011 11:19 [facility] Phone Encounter On: 02-Jun-2011 10:57 Encounter Diagnosis: LYMPHOMA, NOS End: 02-Jun-2011 11:05 [facility] Office Visit On: 01-Jun-2011 15:35 Encounter Reason: Follow up tests - Date: (05-30-11).Encounter Diagnosis: LYMPHOMA, NOS, LYMPHADENITIS, ACUTE (683.) End: 01-Jun-2011 16:23 [facility] Office Visit On: 25-May-2011 11:26 Encounter Reason: Skin Lesions - The last clinic visit was day(s) ago. No changes in management were made at the last visit. Symptoms include single skin lesion. Lesion(s) are located on the right trunk area. Onset was d End: 25-May-2011 15:48 ay(s) ago. There is no known event that preceded symptom onset.Encounter Diagnosis: LYMPHADENITIS, ACUTE (683.), Need for prophylactic vaccination and inoculation against influenza (V04.81) [facility] Office Visit On: 18-Apr-2011 8:02 Encounter Reason: Follow up acute care visit - The patient feels the same. Patient has been compliant with instructions. Current medication use: no side effects, compliant with dosing regimen and not considered effective End: 18-Apr-2011 9:00 by patient. The medical issues the patient is following up for include All identified problems below and other (rash).Encounter Diagnosis: Rash (782.1) [facility] Office Visit On: 31-Mar-2011 8:03 Encounter Diagnosis: Rash (782.1) End: 31-Mar-2011 8:36 [facility] Erroneous Entry On: 23-Mar-2011 11:15 Encounter Diagnosis: Anticoagulant, Current, Long-Term Use (V58.61) End: 23-Mar-2011 11:16 [facility] Office Visit On: 23-Mar-2011 8:20 Encounter Reason: Follow up tests - Diagnostic tests include MRI and other (Labs, carotid). Date: (03/17/11). Follow up visit with no current symptoms. There is no family history of breast cancer, cardiovascular disease, End: 23-Mar-2011 11:05 cystic fibrosis, Down's syndrome, mental retardation or myocardial infarction before age 55. Past medical history includes emotional problems (depression), hypertension and other (hypothyroid, lymphoma).Encounter Diagnosis: Headache (784.0), Hypercalcemia (275.42) [facility] Phone Encounter On: 17-Mar-2011 14:31 Encounter Diagnosis: Hyperlipidemia, Unspecified (272.4) End: 17-Mar-2011 14:34 [facility] Office Visit On: 17-Mar-2011 13:42 Encounter Reason: Headache/ - The onset of the headache/ has been sudden and has been occurring in an intermittent pattern for 2 days. The course has been recurrent. The headache/ is characterized as throbbing (with bend End: 17-Mar-2011 14:25 ing ). The headache/ is experienced upon awakening. The headache/ is described as being located in the retro-ocular and the left side. The symptoms are not aggravated by noise, bright light, reading or neck movement. The symptoms have been associated with eye pain and nausea, while the symptoms have not been associated with blurring of vision, flashing lights, hypertension, insomnia, lacrimation, migr travis in the past, nasal discharge/stuffy nose, neck pain, sinusitis in the past, swelling over temporal areas or vertigo. The headache/ is relieved by sleep.Encounter Diagnosis: Headache (784.0), Acute sinusitis, unspecified (461.9) [facility] Office Visit On: 16-Feb-2011 9:01 Encounter Reason: Follow up tests - Date: (02-10-11 bone density).Encounter Diagnosis: Osteoporosis (733.00), Osteopenia (733.90), Anticoagulant, Current, Long-Term Use (V58.61) End: 16-Feb-2011 17:31 [facility] Office Visit On: 23-Dec-2010 13:18 Encounter Reason: Follow up for chronic medical issues - The patient feels well with minor complaints (very stressed), has good energy level and is sleeping well. Patient has been compliant with instructions. Current med End: 23-Dec-2010 15:12 ication use: no side effects and compliant with dosing regimen. Patient sleeps 8 hours per night. Nutrition: balanced diet and supplemental vitamins. 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 Date: (07-12-10).Encounter Diagnosis: Arm Pain (729.5), Low back pain (724.2) End: 21-Jul-2010 14:06 [facility] Office Visit On: 07-Jul-2010 14:42 Encounter Reason: Back pain - The onset of the pain has been sudden and has been occurring in a persistent pattern for 4 days. The course has been constant. The pain is characterized as a dull ache. The pain is described End: 07-Jul-2010 15:37 as being located in the lower back. The pain does not radiate. There are no precipitating factors. The symptoms are aggravated by exertion and rest. The symptoms have no relieving factors. The pain has been associated with back stiffness (any bending or walking -- difficulty getting in and out of car feel like old lady), while there has been no leg weakness., [ADDITIONAL REASON] Arm pain - The onset of the pain has been gradual and has been occurring in a persistent pattern for months. The course has been constant. The pain is described as moderate. The addy n is described as being located in the left humerus. The pain is aggravated by reaching and lifting. The pain is relieved by nothing. Encounter Diagnosis: Need for prophylactic vaccination and inoculation against influenza (V04.81), Low back pain (724.2), Arm Pain (729.5), LYMPHOMA, NOS [facility] Phone Encounter On: 19-Apr-2010 15:47 [facility] End: 19-Apr-2010 15:48 Phone Encounter On: 07-Apr-2010 16:38 [facility] End: 07-Apr-2010 16:39 Office Visit On: 01-Apr-2010 13:36 [facility] End: 01-Apr-2010 13:59 Office Visit On: 26-Mar-2010 9:55 Encounter Reason: Nail problems - The onset of the nail problems has been sudden and they have been occurring in a persistent pattern for months. The course has been constant. The nail problems are described as moderate. Encounter Diagnosis: End: 26-Mar-2010 10:15 Onchomycosis (110.1), Hypothyroidism (244.9) [facility] Phone Encounter On: 23-Mar-2010 13:03 [facility] End: 23-Mar-2010 13:04 Phone Encounter On: 17-Dec-2009 13:41 [facility] End: 17-Dec-2009 13:55 Phone Encounter On: 20-Oct-2009 13:09 [facility] End: 20-Oct-2009 13:11 Phone Encounter On: 05-Oct-2009 17:42 [facility] End: 05-Oct-2009 17:43 Phone Encounter On: 23-Sep-2009 17:07 [facility] End: 23-Sep-2009 17:09 Office Visit On: 21-Aug-2009 13:04 [facility] End: 21-Aug-2009 13:07 Phone Encounter On: 04-Aug-2009 16:00 [facility] End: 04-Aug-2009 16:01 Office Visit On: 03-Aug-2009 13:08 Encounter Reason: Follow up for chronic medical issues - The patient feels well with minor complaints ,has good energy level and is sleeping well. Patient has been compliant with instructions. Current medication use: no End: 03-Aug-2009 13:56 side effects and compliant with dosing regimen. Patient sleeps 8 hours per night. Nutrition: balanced diet and supplemental vitamins. The medical issues the patient is following up for include All ident ified problems below ,high blood pressure and high cholesterol. 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), LYMPHOMA, NOS [facility] Phone Encounter On: 06-Jul-2009 17:51 [facility] End: 06-Jul-2009 17:52 Office Visit On: 12-Jun-2009 14:24 [facility] End: 12-Jun-2009 14:29 Historical Summary On: 26-May-2009 18:17 [facility] End: 26-May-2009 18:26 Phone Encounter On: 13-May-2009 16:19 [facility] End: 13-May-2009 16:20 Office Visit On: 13-Apr-2009 13:25 Encounter Reason: Follow up for chronic medical issues - The patient feels well with minor complaints ,has good energy level and is sleeping well. Patient has been compliant with instructions. Current medication use: no End: 13-Apr-2009 16:12 side effects and compliant with dosing regimen. Patient sleeps 8 hours per night. Nutrition: balanced diet and supplemental vitamins. The medical issues the patient is following up for include All ident ified problems below ,depression ,gastric reflux ,high blood pressure ,high cholesterol and hypothyroid. weight :. 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 Date: (12.03.08). Current medicaion use: compliant with dosing regimen. Encounter Diagnosis: Anticoagulant, Current, Long-Term Use (V58.61) End: 23-Feb-2009 11:02 [facility] Office Visit On: 03-Dec-2008 9:53 Encounter Reason: Follow up for chronic medical issues - The patient feels well with minor complaints ,has good energy level and is sleeping well. Patient has been compliant with instructions. Current medication use: no End: 03-Dec-2008 11:17 side effects and compliant with dosing regimen. Patient sleeps 7 hours per night. Nutrition: balanced diet and supplemental vitamins. The medical issues the patient is following up for include All ident ified problems below ,high blood pressure ,high cholesterol and hypothyroid. Encounter Diagnosis: Hypertension,benign(401.1), Hyperlipidemia, Unspecified (272.4), FACTOR V DEFICIENCY, NOS (286.3), Hypothyroidism (244.9), Osteoporosis (733.00), Diverticulosis (562.10) [facility] Office Visit On: 19-Nov-2008 11:04 Encounter Reason: Coumadin visit - Denies following symptoms: blood in urine ,bruising ,nausea ,prolonged bleeding or spontaneous bleeding. Date: (10/20/08). Current medicaion use: compliant with dosing regimen and experiencing no side effects. 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 Date: (08-04-08). Current medicaion use: compliant wi End: 20-Oct-2008 13:55 th dosing regimen and experiencing no side effects. 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 Date: (06/24/08). Encounter Diagnosis: Anticoagulant, Current, Long-Term Use (V58.61), Knee pain (719.46) End: 01-Jul-2008 8:41 [facility] Office Visit On: 20-Jun-2008 12:54 Encounter Reason: Knee Pain - The onset of the knee pain has been sudden following an incident not at work and has been occurring in an intermittent pattern for 1 months. The course has been recurrent. The knee pain is m End: 20-Jun-2008 13:49 ild to moderate. The knee pain is characterized as a dull aching. The knee pain is described as being located in the entire knee. The knee pain is aggravated by twisting ,climbing and stairs. There were no relieving factors. There has been no associated giving way ,catching ,locking or joint swelling. The knee pain was preceeded by trauma. There were no previous diagnostic tests. There were no previou s evaluations. There has been no previous physical therapy. There has been no previous surgeries. There is no use of assistive devices. There has been no previous medications. Encounter Diagnosis: Knee pain (719.46), Anticoagulant, Current, Long-Term Use (V58.61) [facility] Office Visit On: 20-Mar-2008 12:54 Encounter Reason: Coumadin visit - Denies following symptoms: bruising or prolonged bleeding. Date: (03/11/08). Current medicaion use: compliant with dosing regimen. Encounter Diagnosis: Anticoagulant, Current, Long-Term Use (V58.61) End: 20-Mar-2008 13:06 [facility] Office Visit On: 11-Mar-2008 14:17 Encounter Reason: Coumadin visit - Denies following symptoms: bruising or prolonged bleeding. 3 weeks ago. Current medicaion use: compliant with dosing regimen. 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 Date: (02/06/08). Current symptoms/reason for visit include/s Follow up visit with no current symptoms. , End: 18-Feb-2008 14:50 [ADDITIONAL REASON] Follow up for chronic medical issues - The patient feels well with no complaints. Patient has been compliant with instructions. Current medication use: no side effects. Nutrition: balanced diet. 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 Date: (01.18.08). Current medicaion use: compliant with dosing regimen. Encounter Diagnosis: Anticoagulant, Current, Long-Term Use (V58.61) End: 22-Jan-2008 14:35 [facility] Office Visit On: 18-Jan-2008 11:51 Encounter Reason: Coumadin visit - Denies following symptoms: bruising or prolonged bleeding. Current medicaion use: compliant with dosing regimen. Encounter Diagnosis: Other pulmonary embolism and infarction (415.19) End: 18-Jan-2008 12:18 [facility] Office Visit On: 19-Nov-2007 13:22 Encounter Reason: Follow up for chronic medical issues - The patient feels well with no complaints ,has good energy level and is sleeping well. Patient has been compliant with instructions. Current medication use: no shaun End: 19-Nov-2007 15:41 e effects and compliant with dosing regimen. Patient sleeps 7 hours per night. Nutrition: balanced diet and supplemental vitamins. The medical issues the patient is following up for include All identifi ed problems below ,high blood pressure ,high cholesterol and hypothyroid. 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 Current medicaion use: compliant with dosing regimen. 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 Date: (10/08/07). Current medicaion use: compliant with dosing regimen. 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 Date: (10/01/07). Current medicaion use: compliant with dosing regimen. 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 Patient has been compliant with instructions. Current medication use: no shaun End: 09-Jul-2007 12:43 e effects and compliant with dosing regimen. Patient sleeps 7 hours per night. Nutrition: balanced diet and supplemental vitamins. The medical issues the patient is following up for include All identifi ed problems below ,depression ,high blood pressure ,high cholesterol ,hypothyroid and osteoarthritis. 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 The course has been constant. The pain is described as moderate. The pain is described as pili End: 04-Jun-2007 12:25 ng located in the right shoulder and right forearm. The pain is aggravated by reaching and lifting. The pain is relieved by nothing. 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 Patient has been compliant with instructions. Current medication use: experiencing side effects (l End: 28-Feb-2007 9:42 eg cramps) ,compliant with dosing regimen and considered effective by patient. Patient sleeps 8 hours per night. Impact of disease: no overall impact. Nutrition: balanced diet. 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) End: 21-Feb-2007 8:54 [facility] Historical Summary On: 12-Jan-2007 12:07 [facility] End: 12-Jan-2007 15:14 Office Visit On: 01-Jan-2007 9:21 Encounter Diagnosis: Unspecified Diagnosis End: 01-Jan-2007 9:51 [facility] Phone Encounter On: 23-Nov-2006 17:20 [facility] End: 23-Nov-2006 17:23 Refill Request On: 01-Nov-2006 14:26 Encounter Diagnosis: Unspecified Diagnosis End: 01-Nov-2006 14:35 [facility] Historical Summary On: 17-Jul-2006 14:14 Encounter Diagnosis: Unspecified Diagnosis End: 17-Jul-2006 14:16 [facility] Office Visit On: 10-Apr-2006 14:14 [facility] End: 10-Apr-2006 14:29 Payers MedicareAARP/[facility]; kenn guarantor
--- OUTSIDE RECORDS SUMMARY | 2018-08-24 20:22 | XMS RPT_ITS | Continuity of Care Document ---
:1935 Author Organization [facility] Address [address] [facility] [address] [place] [address] Phone Care Team Providers Name Role Phone Anya Steward DO Unavailable Dr. Alexey Shields Unavailable Guicho Rowe DO Unavailable Physical Therapy, [facility] Unavailable Asia Mcclain Unavailable Unavailable Daniel Hawk [...] lower quadrant pain (R10.32, 789.04) Status: Active [facility] current use of anticoagulant (Z79.01, V58.61) Comments: [...] Oral Tablet Disintegrating 1 (one) Tablet Tablet [id number] for 30 days Quantity: 60 {Tablet} Refills: [...] days Quantity: 60 {Tablet} Refills: 3 Ordered:04-Jul-2018 Yazciarakenn LICONAMiri Start : 04-Jul-2018 Active Iron 325 (65 [...] days Quantity: 30 {Tablet} Refills: 0 Ordered:12-Jul-2016 Sherri LICONAMiri Start : 12-Jul-2016 Active Comments:Medication taken as [...] Active Warfarin Sodium 1 MG Oral Tablet 3 (three) Tablet DQ as directed for 90 days Quantity: 360 {Tablet} Refills: 3 Ordered:09-Jul-2018 Dorie Steward DO, DO, Kathleen Start : 09-Jul-2018 Active Warfarin Sodium 1 MG Oral Tablet 3 (three) Tablet DQ as directed for 90 days Quantity: 360 {Tablet} Refills: 3 Ordered:09-Jul-2018 Dorie Steward DO, DO, Kathleen Start : 09-Jul-2018 Active Warfarin Sodium 5 MG Oral Tablet [...] Quantity: 20 {Tablet_ER_24HR} Refills: 0 Ordered:24-Sep-2012 Miri Polanco CNP Start : 24-Sep-2012 End : 04-Oct-2012 Inactive BLEPH-10, 10% (Ophthalmic Solution) 2 (two) Drop(s) q2-3hr x 7-10 days for 7 days Quantity: 1 {Solution} Refills: 0 Ordered:24-Sep-2012 Miri Polanco CNP Start : 24-Sep-2012 End : 01-Oct-2012 Inactive CALCIUM 600, 1500MG (Oral Tablet) for 0 days Refills: 0 Ordered:31-Mar-2011 KRISTY Duval End : 31-Mar-2011 Inactive CLARITIN, 10MG (Oral Capsule) 1 Capsule dialy for 0 days Quantity: 14 {Capsule} Refills: 0 Ordered:08-Jun-2012 Sariah Brantley LPN Start : 18-Apr-2011 End : 08-Jun-2012 Inactive Coumadin 5 MG Oral Tablet tad Tablet UAD for 90 days Quantity: 180 {Tablet} Refills: 3 Ordered:14-Jun-2018 Vianey Burr LPN Start : 22-May-2013 End : 14-Jun-2018 Inactive [...] End : 15-Apr-2013 Inactive FOSAMAX PLUS D, 84-3270PS-CWWG (Oral Tablet) 1 Tablet QW for 0 days Quantity: 12 {Tablet} Refills: 3 Ordered:03-Aug-2009 Yolanda Dove LPN Start : 30-Jul-2008 Inactive FOSAMAX, 70MG (Oral Tablet) 1 (one) Tablet qweek for 0 days Quantity: 12 {Tablet} Refills: 3 Ordered:08-Jun-2012 Fercho FENTON Sariah Start : 16-Feb-2011 End : 08-Jun-2012 Inactive [...] days Quantity: 90 {Tablet_ER_24HR} Refills: 3 Ordered:29-Jun-2015 Petty Yolanda ELICEO Start : 13-Aug-2012 End : 29-Jun-2015 Inactive PAMINE, 2.5MG (Oral Tablet) BID for 0 days Refills: 0 Ordered:04-Aug-2008 Frank Jazzy End : 04-Jun-2007 Inactive PENLAC, 8% (External [...] Quantity: 90 {Tablet} Refills: 3 Ordered:03-Dec-2008 Yolanda Doev LPN Start : 28-Feb-2007 End : 03-Dec-2008 [...] 12-Jul-2016 End : 11-Aug-2016 Inactive Vitamin D3 34114 UNIT Oral Tablet 1 (one) Tablet once [...] days Quantity: 90 {Tablet} Refills: 3 Ordered:08-Jun-2012 Gomez Brantley LPNsie Start : 18-Jan-2012 End : 08-Jun-2012 Inactive ARMOUR THYROID, 120MG (Oral Tablet) 1 Tablet qd for 0 days Refills: 0 Ordered:13-Apr-2009 Dorie Steward DO, DO, Kathleen Start : 13-Apr-2009 End : 13-Apr-2009 Discontinued [...] NOS (451.9) Status: Inactive as of 03-Aug-2009 [place] eye (372.03) Status: Inactive as of 18-Feb-2013 [...] Lower Extremity Result: Comments: See Note; NOTES: [facility] Cardiovascular Services [address] [place] [address] Venous Duplex US, Unilateral 06/30/18 1341 MR#: [id number] Acct: [id number] Name: SALMA BRYAN Rep #: [id number] : 1935 82 From: Que Gonzales MD [...] Dictated: 06/30/18 1341 Date Transcribed: 07/02/18 06 Integration Director: Signed 30-Jun-2018 Discharge Instruction Result: Comments: See Note; NOTES: [facility] Medical Records Department [address] [place] [address] Discharge Instruction 06/30/18 1454 MR#: [id number] Acct: [id number] Name: SALMA WELLS Rep #: [id number] : 1935 82 From: Felice Aly DO [...] problems, contact your Primary Care Provider. Call [employer] [facility] ([phone]) or report to the closest Emergency Room. Call 911 if necessary. 1456 <Electronically signed by Felice Aly DO> Date Felice Aly DO Cosigner Signature (If Indicated): Date CC: Anya Steward DO 30-Jun-2018 Emergency Department Summary Result: Comments: See Note; NOTES: [facility] Medical Records Department [address] [facility] [address] Emergency Department Summary 06/30/18 1448 MR#: [id number] Acct: [id number] Name: ERWINLALASALMA A Rep #: [id number] : 1935 82 From: Felice Aly DO [...] lower extremity] This note was generated with Certeon dictation software. It may contain incorrect words, spelling, a nd punctuation that were not noted in review of the chart prior to signing ED Disposition - Plan for ED Patient: Chief Complaint: Edema Referrals: Anya Steward DO [Primary Care Provider] - Drea t to do if you have Problems For any increased pain, shortness of breath, bleeding, nausea or vomiting, chest pain, or any unexpected problems, contact your Primary Care Provider. Call [facility] ([phone]) or report to the closest Emergency Room. Call 911 if necessary. 06/30/18 1454 <Electronically signed by Felice Aly DO> Date ____ Felice Aly DO Cosigner Signature (If Indicated): Date CC: Anya Steward DO 07-May-2018 Echo, Complete w/ Contrast Result: Comments: See Note; NOTES: [facility] Cardiovascular Services [address] [place] [address] Echo Complete W/ Contrast 05/07/18 1404 MR#: [id number] Acct: [id number] Name: SALMA GONSALVES Rep #: [id number] : 1935 82 From: Fred Huerta MD Attending Dr: JARRELL KATE MD Status: REG CLI Ordering Dr: Jarrell Kate MD Date: 05/07/18 Location: [facility] Sex: F C Admitted: Reason For Study: [...] Date Dictated: 05/07/18 1404 Date Transcribed: 05/07/181625 Integration Director: Signed 28-Feb-2018 Oncology Visit Report Result: Comments: See Note; NOTES: [facility] [address] [place] [address] OFFICE VISIT Date of Service: 02/28/18 1508 MR#: [id number] Acct: [id number] Name: FABIO DUENAS Rep #: [id number] : 1935 From: Keaton Young MD Age/Sex: [...] in 05/2017. 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 This patient may have a combinatio n of paper and electronic documentation or all paper documentation. All documentation is viewable within the e-chart portion of [employer] for each patient visit. 04-Jan-2018 Abdomen without IV Contrast Result: Comments: See Note; NOTES: [facility] Imaging Services [address] [place] [address] Abdomen without IV Contrast MR#: [id number] Acct: [id number] Name: SALMA DUENAS Rep #: [id number] : 1935 F 82 From: Nereida Gary MD PCP: Anya Steward DO Status: REG CLI Study: Abdomen without IV Contrast Date of Exam: 01/04/18 Exam# [id number] Ordering Dr: Anya Steward DO STUDY: CT [...] support , Fax CC: Anya Steward DO Integration Director: Signed 08-Aug-2017 Echocardiogram Complete Result: Comments: See Note; NOTES: [facility] Cardiovascular Services [address] [place] [address] Echo Complete 08/08/17 1308 MR#: [id number] Acct: [id number] Name: SALMA DUENAS Rep #: [id number] : 1935 81 From: Sergio Rivero MD Attending Dr: Keaton Young MD Status: REG CLI Ordering Dr: Keaton Young MD Date: 08/08/17 Location: [facility] Sex: F C Admitted: Reason For S [...] Physician: Anya Steward Performed By: Nicole Shepherd, KYM, RVT 08/08/17 4245 Date Sergio Rivero MD CC: Keaton oYung MD; Anya Steward DO Date Dictated: 08/08/17 1308 Date Transcribed: 08/08/17 172 Integration Director: Signed 07-Aug-2017 Venous Duplex Lower Extremity Result: Comments: See Note; NOTES: [facility] Cardiovascular Services [address] [place] [address] Venous Duplex US - Jeff Extrem 08/07/17 1230 MR#: [id number] Acct: [id number] Name: SALMA DUENAS Rep #: [id number] : 1935 81 From: Jose E Armstrong [...] E Armstrong MD on 08/07/2017 05:36 PM 08/07/171735 Date Jose E Armstrong MD CC: Anya Steward DO; Felice Aly DO Date Dictated: 08/07/17 1230 Date Transcribed: 08/07/171735 Integration Director: Signed 07-Aug-2017 Discharge Instruction Result: Comments: See Note; NOTES: [facility] Medical Records Department [address] [place] [address] Discharge Instruction 08/07/17 1454 MR#: [id number] Acct: [id number] Name: SAMLA WELLS Rep #: [id number] : 1935 81 From: Felice Aly DO [...] your Primary Care Provider. Call [facility] ([phone]) or report to the closest Emergency Room. Call 911 if necessary. 08/07/17 1454 <Electronically signed by Felice Aly DO> Date Felice Aly DO Cosigner Signature (If Indicated): Date CC: Anya Steward DO 07-Aug-2017 Emergency Department Summary Result: Comments: See Note; NOTES: [facility] Medical Records Department [address] [place] [address] Emergency Department Summary 08/07/17 1450 MR#: [id number] Acct: [id number] Name: SALMA DUENAS Rep #: [id number] : 1935 81 From: Felice Aly DO PCP: Anya Steward DO Status: PRE ER - ER Visit Summary Date of Service: 08/07/17 Chief Complaint: [[place] to both legs and concern for DVT.] [...] lower extremities] This note was generated with Certeon dictation software. It may contain incorrect words, [...] problems, contact your Primary Care Provider. Call [employer] [facility] ([phone]) or r alyrt to the closest Emergency Room. Call 911 if necessary. 08/07/17 9273 <Electronically signed by Felice Aly DO> Date Felice Aly DO Cosigner Signature (If Indicated): Date CC: Anya Steward DO 02-Aug-2017 Abdomen/Pelvis without Cont Result: Comments: See Note; NOTES: [facility] Imaging Services [address] [place] [address] Abdomen/Pelvis without Cont MR#: [id number] Acct: [id number] Name: SALMA DUENAS Kenn Rep #: [id number] : 1935 F 81 From: David oWlfe MD PCP: Anya Steward DO Status: REG CLI Study: Abdomen/Pelvis without Cont Date of Exam: 08/02/17 Exam# [id number] Ordering Dr: Radha Bennett STUDY: CT ABDOMEN [...] EST , Service support , CC: Anya tamayo DO; Radha Bennett NP Integration Director: Signed 10-Jul-2017 Chest PA and Lateral Result: Comments: See Note; NOTES: [facility] Imaging Services [address] [place] [address] Chest PA and Lateral MR#: [id number] Acct: [id number] Name: SALMA DUENAS Rep #: [id number] : 1935 F 81 From: Shamir Leigh DO PCP: Anya Steward DO Status: REG CLI Study: Chest PA and Lateral Date of Exam: 07/10/17 Exam# [id number] Ordering Dr: Anya Steward DO STUDY: X-RA [...] Shamir Leigh DO at 15:44 EST Tel [phone], Service support , CC: Anya Steward DO Integration Director: Signed 26-Jun-2017 Consultation Result: Comments: See Note; NOTES: [facility] Medical Records Department [address] [place] [address] Consultation 06/26/17 1626 MR#: [id number] Acct: [id number] Name: SALMA DUENAS Rep #: [id number] : 1935 81 From: Jasbir Luis MD PCP: Anya Steward DO Status: REG ER Y Location: ED Problem List (1) Partial obstruction of small intestine Status: Acute (2) Peristo mal hernia Status: Acute Reason for Consult Date of Consultation: 06/26/17 History of Present Illness: The patient is a 81 year old F who was admitted to [facility] with a GI bleed and an [...] time., - - colostomy. Psychiatric History: Depression TIE HACKER History: No pertinent TIE HACKER history Smoking Status: Never smoker - *Family [...] hernia (Acute) - Physical Exam General: Alert, [place] ed x3 HEENT: Atraumatic, PERRLA, EOMI, Normocephalic [...] Department Summary Result: Comments: See Note; NOTES: [facility] Medical Records Department [address] [place] [address] Emergency Department Summary 06/26/17 1606 MR#: [id number] Acct: [id number] Name: SALMA DUENAS Rep #: [id number] : 1935 81 From: Anderson Sherwood MD [...] of hypothyroidism This note was generated with Dragon dictation software. It may contain incorrect words, [...] Cont Only Result: Comments: See Note; NOTES: [facility] Imaging Services [address] [place] [address] Abdomen/Pel W ORAL Cont Only MR#: [id number] Acct: [id number] Name: SALMA DUENAS Rep #: [id number] : 1935 F 81 From: Nikhil Denson MD PCP: Anya Steward DO Status: REG ER Study: Abdomen/Pel W ORAL Cont Only Date of Exam: 06/26/17 Exam# [id number] Ordering Dr: Anderson Sherwood MD STUDY: CT [...] Nikhil Denson MD at 14:59 EST , Blazeic e support , CC: Anya Steward DO; Anderson Sherwood MD Integration Director: Signed 21-Jun-2017 Emergency Department Summary Result: Comments: See Note; NOTES: [facility] Medical Records Department [address] [place] [address] Emergency Department Summary 06/21/17 1436 MR#: [id number] Acct: [id number] Name: SALMA DUENAS Rep #: [id number] : 1935 81 From: Nishi Murphy MD [...] evaluation underway This note was generated with Certeon dictation software. It may contain incorrect words, [...] your Primary Care Provider. Call [facility] ([phone]) or report to the closest Emergency Room. Call 911 if necessary. 06/21/17 1536 <Electronically signed by Vivienne Murphy MD> Date Nishi Murphy MD Cosigner Signature (If Indicated): Date CC: Anya Steward DO 21-Jun-2017 Abd Inc Decub and/or Erect Result: Comments: See Note; NOTES: [facility] Imaging Services [address] [place] [address] Abd Inc Decub and/or Erect MR#: [id number] Acct: [id number] Name: SALMA DUENAS Rep # : [id number] : 1935 F 81 From: Vanessa Berrios MD PCP: Anya Steward DO Status: REG ER Study: Abd Inc Decub and/or Erect Date of Exam: 06/21/17 Exam# [id number] Ordering Dr: Herbert Murphy MD STUDY: X-RAY [...] MD at 16:4 2 EST Tel Direct: [phone], Service support , CC: Anya Steward DO; Nishi Murphy MD Integration Director: Signed 19-Jun-2017 Abdomen/Pelvis without Cont Result: Comments: See Note; NOTES: [facility] Imaging Services [address] [place] [address] Abdomen/Pelvis without Cont MR#: [id number] Acct: [id number] Name: SALMA DUENAS Rep #: [id number] : 1935 F 81 From: Vanessa Berrios MD PCP: Anya Steward DO Status: REG CLI Study: Abdomen/Pelvis without Cont Date of Exam: 06/19/17 Exam# [id number] Ordering Dr: Jordan Steward DO STUDY: CT [...] Berrios MD at 19:23 EST Tel Direct: [phone], Service support , CC: Anya Steward DO Integration Director: Signed 16-Jun-2017 Chest PA and Lateral Result: Comments: See Note; NOTES: [facility] Imaging Services [address] [place] [address] Chest PA and Lateral MR#: [id number] Acct: [id number] Name: ANASTASIYA DUENASMARY Hawk Rep #: [id number] : 1935 F 81 From: Ranulfo Grant MD PCP: Anya Steward DO Status: REG CLI Study: Chest PA and Lateral Date of Exam: 06/16/17 Exam# [id number] Ordering Dr: Anya Steward DO STUDY: X [...] Service support , CC: Anya Steward DO Integration Director: Signed 15-May-2017 Abd Inc Decub and/or Erect Result: Comments: See Note; NOTES: [facility] Imaging Services [address] [place] [address] Abd Inc Decub and/or Erect MR#: [id number] Acct: [id number] Name: SALMA DUENAS Rep # : [id number] : 1935 F 81 From: Vishal Mendez MD PCP: Anya Steward DO Status: REG CLI Study: Abd Inc Decub and/or Erect Date of Exam: 05/15/17 Exam# [id number] Ordering Dr: Yolanda Zarco PIECE MAKER-C STUDY: X-RAY - ABDOMEN/PELVIS REASON FOR EXAM: [...] T11 vertebrae. Evon or right hip replacement. 0177 RAD/Abd Inc Decub and/or Erect IMPRESSION: Moderate amount of fecal material is seen in the colon. Electronically Sign ed: Vishal Mendez MD at 15:22 EDT Tel [phone], Service support , CC: ALISE Zarco; Anya Steward DO Integration Director: Signed 13-Mar-2017 Chest without Contrast Result: Comments: See Note; NOTES: [facility] Imaging Services [address] [address] Chest without Contrast MR#: [id number] Acct: [id number] Name: SALMA DUENAS Rep #: [id number] : 1935 F 81 From: Vishal Mendez MD PCP: Anya Steward DO Status: REG CLI Study: Chest without Contrast Date of Exam: 03/13/17 Exam# [id number] Ordering Dr: Jarrell Kate MD [facility]: CT CHEST WITHOUT CONTRAST REASON FOR [...] Vishal Mendez MD at 15:36 EDT Tel [phone], Service support , CC: JARRELL KATE MD; Anya Steward DO Integration Director: Signed 21-Dec-2016 SCREENING MAMM (CAD), BILAT Result: Comments: See Note; NOTES: [facility] Imaging Services [address] [place] [address] Verdana 4d SCREENING MAMM (CAD), BILAT MR#: [id number] Acct: [id number] Name: YULISSADIANE JAMESONLISA Kenn Rep #: [id number] : 1935 F 81 From: Vishal Mendez MD PCP: Anya Steward DO Status: REG CLI Study: SCREENING MAMM (CAD), BILAT Date of Exam: 12/21/16 Exam# [id number] Ordering Dr: Anya Salguero DO MAMMOGRAPHY - [...] delay biopsy of a clinically suspicious abnormality. [id number] Electronically Signed: Vishal stack MD at 13:42 EDT Tel [phone], Service support , CC: Anya Steward DO Integration Director: Signed 08-Dec-2016 Spine Thoracic (Routine) Result: Comments: See Note; NOTES: [facility] Imaging Services [address] [place] [address] Verdana 4d Spine Thoracic (Routine) MR#: [id number] Acct: [id number] Name: ALLEN DUENAS Rep #: [id number] : 1935 F 81 From: Arthur Barnard MD PCP: Anya Steward DO Status: REG CLI Study: Spine Thoracic (Routine) Date of Exam: 12/08/16 Exam# [id number] Ordering Dr: Anya Steward DO STUDY: MRI [...] Service support , CC: Anya Steward DO Integration Director: Signed 23-Sep-2016 Chest PA and Lateral Result: Comments: See Note; NOTES: [facility] Imaging Services [address] [place] [address] Verdana 4d Chest PA and Lateral MR#: [id number] Acct: [id number] Name: ANASTASIYA DUENASMARY Hawk Rep #: [id number] : 1935 F 80 From: Ezequiel Bradley MD PCP: Anya Steward DO Status: REG CLI Study: Chest PA and Lateral Date of Exam: 09/23/16 Exam# [id number] Ordering Dr: Anya Steward TUDY: X-RAY CHEST REASON FOR EXAM: Female, [...] at 3:40 EST Tel , Service support [phone], CC: Anya Steward DO Integration Director: Signed 05-Aug-2016 Hip 2-3 Views with Pelvis Result: Comments: See Note; NOTES: [facility] Imaging Services [address] [place] [address] Verdana 4d Hip 2-3 Views with Pelvis MR#: [id number] Acct: [id number] Name: FABIO DUENAS LISA Hawk Rep #: [id number] : 1935 F 80 From: Shamir Leigh DO PCP: Anya Steward DO Status: REG CLI Study: Hip 2-3 Views with Pelvis Date of Exam: 08/05/16 Exam# [id number] Ordering Dr: Ty Lion DO STUDY: X-RAY [...] Shamir Leigh DO at 15:17 EST Tel [phone], Service support [phone], CC: Anya Steward DO; Guicho Lion DO Integration Director: Signed 17-Jun-2016 History and Physical Exam Result: Comments: See Note; NOTES: [facility] Medical Records Department [address] [place] [address] History and Physical 06/17/16 1432 MR#: [id number] Acct: [id number] Name: YULISSASALMA A Rep #: [id number] : 1935 80 From: Jarod Morton DO [...] 78.1 H Lymph % (Auto) 13.1 L Robeson % (Auto) 6.4 Eos % (Auto) 1.6 [...] Urine Clarity Urine pH Ur S pecific Ebony Urine Protein Urine Glucose (UA) Urine Ketones Urine Occult Blood Urine Nitrite Urine Bilirubin Urine Urobilinogen Ur Leukocyte Esterase Urine RBC Urine WBC Ur Squamous Epith Cells Urine Bacteria Urine Mucus Blood Type 06/17/16 06/17/16 06/17/16 12:15 13:15 13:50 WBC RBC Hgb Hct MCV MCH MCHC RDW RDW Differential Plt Count MPV Immature Gran % (Auto) Neut % (Auto) Lymph % (Auto) Robeson % (Auto) Eos % (Auto) Baso % [...] Sl. Cloudy Urine pH 6.0 Ur Specific Ebony 1.015 Urine Protein 30 H Urine Glucose [...] with Pelvis Result: Comments: See Note; NOTES: [facility] Imaging Services [address] [place] [address] Verdana 4d Hip 2-3 Views with Pelvis MR#: [id number] Acct: [id number] Name: FABIO DUENAS LISA Hawk Rep #: [id number] : 1935 F 80 From: Vishal Mendez MD PCP: Anya Steward DO Status: [facility] ER Study: Hip 2-3 Views with Pelvis Date of Exam: 06/17/16 Exam# [id number] Ordering Dr: Vanessa Lucia MD STUDY: X-RAY [...] Mendez MD at 12:23 EST Tel [phone], Service support [phone], CC: Vanessa Lucia MD; Anya Steward DO Integration Director: Signed 17-Jun-2016 Brain/Head without Contrast Result: Comments: See Note; NOTES: [facility] Imaging Services [address] [place] [address] Verdana 4d Brain/Head without Contrast MR#: [id number] Acct: [id number] Name: ERWINLALADIANE Rep #: [id number] : 1935 F 80 From: Vishal Mendez MD PCP: Anya Steward DO Status: [facility] Study: Brain/Head without Contrast Date of Exam: 06/17/16 Exam# [id number] Ordering Dr: Vanessa Romeo MD STUDY: CT [...] Vishal Mendez MD at 11:31 EST Tel [phone], Service support [phone], CC: Vanessa Lucia MD; Anya Steward DO Integration Director: Signed 15-Mar-2016 Chest without Contrast Result: Comments: See Note; NOTES: [facility] Imaging Services [address] [place] [address] Verdana 4d Chest without Contrast MR#: [id number] Acct: [id number] Name: SALMA DUENAS Rep #: [id number] : 1935 F 80 From: Darius Ayoub PCP: Anya Steward DO Status: REG CLI Study: Chest without Contrast Date of Exam: 03/15/16 Exam# [id number] Ordering Dr: ANYA SAVAGE STUDY: CT CHEST [...] MD at 6:39 EDT , Service support [phone], CC: KEVIN SAVAGE; Anya Steward DO Integration Director: Signed 09-Dec-2015 PT D/C of Non Returning Pt (1) Result: Comments: See Note; NOTES: [facility] [address] [place] [address]. [address] [place] [address] Fax REHABILITATION SE RVICES DISCHARGE SUMMARY MR#: [id number] Acct: [id number] Name: SALMA DUENAS Rep #: [id number] : 1935 80 From: Jarod Michelle DPT, OCS, CSCS Referring Dr.: Anya Steward DO Status : REG RCR Eval Date: Discharge Date: HP - Discharge Summary (1) - Patient Information SALMA DUENAS was seen in my office for initial evaluation on 09/25/15. The following Plan of Care was established for this patient: Initial Frequency: up to 2x week as needed Initial Duration: Up to 2-4 weeks - Anticipated Interventions Patient/Client Instruction: Educate patient on: Conditio n, Plan of Care Comments: HEP For [...] and Lateral Result: Comments: See Note; NOTES: [facility] Imaging Services [address] [place] [address] Verdana 4d Chest PA and Lateral MR#: [id number] Acct: [id number] Name: SALMA MCNAMARA Rep #: [id number] : 1935 F 79 From: Vishal Mendez MD PCP: Anya Steward DO Status: REG CLI Study: Chest PA and Lateral Date of Exam: 10/07/15 Exam# [id number] Ordering Dr : Anya Steward DO STUDY: [...] Mendez MD at 15:21 EST Te l [phone], Service support [phone], 0091 RAD/Chest PA and Lateral IMPRESSION: Stable examination. No acute infiltrate is seen. Electronically Signed: Eren Mendez MD at 15:21 EST Tel [phone], Service support [phone], CC: Anya Steward DO Integration Director: Signed 07-Oct-2015 Spirometry (86576) Comments: lil restriction but struggled to do Result: 28-Sep-2015 Inital Evaluation (1) - PT Result: Comments: See Note; NOTES: [facility] [address] [place], [place] [address] Fax REHABILITATION SE RVICES INITIAL EVALUATION MR#: [id number] Acct: [id number] Name: SALMA DUENAS Rep #: [id number] : 1935 79 From: Jarod Michelle DPT, OCS, CSCS Referring Dr.: Anya Steward DO Statu s: REG RCR Insurance: MEDICARE PART A B Eval Date: [facility] Patient's Visit Information SALMA DUENAS is a [...] turning neck.. Not overly active, goes to [employer] and out to eat. Does own ho [...] to be FAXED BACK to us at for Medicare purposes. Please let me know if there are questions or concerns regarding this plan of care. Physician Signature: Date: <Electronically signed by Jarod Michelle DPT, OCS, CSCS> 09/28/15 0648 CC: Anya Steward DO EBG Signed For Medicare only, by signing this I singh sinclair the plan of care. Physicians Signature Date 23-Sep-2015 Lumbar Spine 2 or 3 Views Result: Comments: See Note; NOTES: [facility] Imaging Services [address] [place] [address] Verdana 4d Lumbar Spine 2 or 3 Views MR#: [id number] Acct: [id number] Name: SALMA BRYAN Rep #: [id number] : 1935 F 79 From: Vishal Mendez MD PCP: Anya Steward DO Status: REG CLI Study: Lumbar Spine 2 or 3 Views Date of Exam: 09/23/15 Exam# [id number] O rdering Dr: Gal Shields MD STUDY: [...] Mendez MD at 15:00 EST Te l [phone], Service support [phone], 0046 RAD/Lumbar Spine 2 or 3 Views IMPRESSION: Degenerative changes of the spine, as detailed above. 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 Electronically Signed: Vishal Mendez MD at 15:00 EST Tel [phone], Service support , CC: Gal Shields MD; Anya Steward DO Integration Director: Signed 18-Sep-2015 Cerv Spine 4 or 5 Views Result: Comments: See Note; NOTES: [facility] Imaging Services [address] [place] [address] Verdana 4d Cerv Spine 4 or 5 Views MR#: [id number] Acct: [id number] Name: SALMA SCANLON Rep #: [id number] : 1935 F 79 From: Brayden Gerardo MD PCP: Anya Steward DO Status: REG CLI Study: Cerv Spine 4 or 5 Views Date of Exam: 09/18/15 Exam# [id number] Ordering Dr: Anya Steward DO STUDY: X-RAY [...] FACR at 20:09 EST , Service support [phone], RAD/Cerv Spine 4 or 5 Views IMPRESSION: Osteope favio. 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 Electronically Signed: Brayden Gerardo MD, FACR at 20:09 EST , Service support [phone], CC: Anya Steward DO Integration Director: Signed 07-Sep-2015 Chest without Contrast Result: Comments: See Note; NOTES: [facility] Imaging Services [address] [place] [address] Pbdana 4d Chest without Contrast MR#: [id number] Acct: [id number] Name: SALMA GONSALVES Rep #: [id number] : 1935 F 79 From: Ozzie Messer MD PCP: Anya Steward DO Status: REG CLI Study: Chest without Contrast Date of Exam: 09/07/15 Exam# [id number] Ordering Dr: Felix Parra MD STUDY: CT [...] at 9:57 EST Tel , Service support [phone], CC: Anya Steward DO; Felix Parra Integration Director: Signed 07-Sep-2015 Abdomen/Pelvis without Cont Result: Comments: See Note; NOTES: [facility] Imaging Services [address] [place] [address] Verdana 4d Abdomen/Pelvis without Cont MR#: [id number] Acct: [id number] Name: SALMA DUENAS Rep #: [id number] : 1935 F 79 From: Ozzie Messer MD PCP: Anya Steward DO Status: REG CLI Study: Abdomen/Pelvis without Cont Date of Exam: 09/07/15 Exam# [id number] Or dering Dr: Felix Parra MD STUDY: [...] at 9:54 EST Tel , Service support [phone], CC: Anya Steward DO; Felix Parra Integration Director: Signed 29-Jun-2015 EKG (77714) Comments: nsr no acute chg Result: [MEASUREMENTS ANALYSIS] Date of Test: 06/29/2015 14:05:21; Heart Rate: 66; CO Interval: 180; QRS: 98; QT Interval: 406; Corrected QT Interval (QTc): 416; P Wave [place]: 37; QRS Wave [place]: -7; T Wave [place]: 12; Blood Pressure: 120/78 [ECG DIAGNOSTIC STATEMENTS] Date of Test: 06/29/2015 14:05:21; Summary: Sinus Rhythm WITHIN NORMAL LIMITS 12-Jun-2015 Emergency Department Summary Result: Comments: See Note; NOTES: [facility] Medical Records Department [address] [place] [address] Emergency Department Summary MR#: [id number] Acct: [id number] Name: SALMA DUENAS Rep #: [id number] : 1935 79 From: Octavio Kate MD PCP: Anya Steward DO Status: [facility] ER DATE OF SERVICE: 06/09/2015 CHIEF COMPLAINT: Right arm fistula, possibly c lotted or obstructed. HISTORY OF PRESENT ILLNESS: A 79-year-old female with history of known renal insufficiency never need dialysis 2 years ago with a concern that she ____ right arm fistula placed at the [facility]. It has been doing well. Today, [...] edema with strong radial pulse. Norm al flavoring maker strength, touch sensation in the right arm, hand. EMERGENCY DEPARTMENT COURSE: I did do screening labs on the patient. She is on Coumadin. Her INR is 1.6 and subtherapeutic. Also her research chemist ry panel was unremarkable other than [...] to home. MD Vipul Giordano C: Anya Steward DO Thien Wilkerson T: NTS J OB: [id number] 06/12/15 0846 <Electronically signed by Octavio Kate MD> Date Octavio Kate MD Cosigner Signature (If Indicated): Date CC: Anya Steward DO Date Dictated: 06/09/15 1353 Date Transcribed: 06/09/15 135 Integration Director: Signed 09-Jun-2015 Discharge Instruction Result: Comments: See Note; NOTES: [facility] Medical Records Department [address] [place] [address] Discharge Instruction 06/09/15 1353 MR#: [id number] Acct: [id number] Name: SALMA DUENAS Rep #: [id number] : 1935 79 From: Octavio Kate MD [...] problems, contact your doctor. Call [facility] ([phone]) or report to the closest Emergency Room. Call 911 if necessary. 06/09/15 1526 <Electronically signed by Octavio Kate MD> Date Octavio sarkar MD Cosigner Signature (If Indicated): Date CC: Anya Steward DO 21-Apr-2015 PT Discharge Summary Result: Comments: See Note; NOTES: [facility] Therapy [facility] [place] [address] Fax REHABILITATION SERVICES DISCHARGE SUMMARY MR#: [id number] Acct: [id number] Name: SALMA DUENAS Rep #: [id number] : 1935 79 From: Brandi Mares Referring Dr.: Gal Shields MD Status: DIS RCR Eunice Date: Sandra gamboa Date: 04/20/15 DATE OF SERVICE: DATE OF SERVICE: April 20, 2015 This patient was referred to physical therapy by Dr. Shields with a diagnosis of back pain. She has been seen in [facility] times a total of 10 [...] goals have been met. Oswestry equals 16%, A4116-KC, C1658-QM. I am discharging her to independent home exercise isabel thomas at this time and she is agreeable to discharge. Brandi Mares, PT T: NTS JOB: [id number] <Electronically signed by Brandi Mares > 04/21/15 1419 CC: Anya Steward DO Signed 20-Mar-2015 Inital Evaluation - PT Result: Comments: See Note; NOTES: [facility] [facility] [place] [address] Fax REHABILITATION SERVICES INITIAL EVALUATION MR#: [id number] Acct: [id number] Name: SALMA DUENAS Rep #: [id number] : 1935 79 From: Brandi Mares Referring DrBernice: Gal Shields MD Status: REG R Insurance: MATTHEW PART A B Eval Date: [facility] DATE OF SERVICE: 03/19/2015 SUBJECTIVE: This patient [...] TREATMENT: The patient was seen today for adair elmore in proper posture control and body mechanics. [...] when she goes out. Oswestry equals 26%, L2702-DU, N8257-JB. PLAN: We plan to see this patient ____ times a week x10 visits for lumbar soft tissue mobilization as needed, dynamic lumbar stabilization exercise instruction, posture correction, instr uction in proper body mechanics for ADLs and bilateral lower extremity strengthening. She was agreeable with this plan of care. Brandi Mares, PT T: NTS JOB: [id number] <Electronically s igned by Brandi Mares > 03/20/15 0940 CC: Signed For Medicare only, by signing this I certify the plan of care. Physicians Signature Date 16-Jan-2015 Chest without Contrast Result: Comments: See Note; NOTES: [facility] Imaging Services [address] [place] [address] CAT Scan Report MR#: [id number] Acct: [id number] Name: SALMA DUENAS Rep #: [id number] : 1935 F 79 From: Ozzie Messer MD PCP: Anya Steward DO Status: REG CLI Study: Chest without Contrast Date of Exam: 01/16/15 Exam# [id number] Ordering Dr: Anya Steward DO STUDY: CT [...] study from 2011 are suggestive of chronic i nterstitial lung [...] at 16:01 EDT Tel , Service support [phone], CC: Anya Steward DO Integration Director: Signed 15-Jan-2015 Bone Scan Whole Body Result: Comments: See Note; NOTES: [facility] Imaging Services [address] [place] [address] Nuclear Medicine Report MR#: [id number] Acct: [id number] Name: SALMA DUENAS ep #: [id number] : 1935 F 79 From: Iván Hearn DO PCP: Anya Steward DO Status: REG CLI Study: Bone Scan Whole Body Date of Exam: 01/15/15 Exam# [id number] Ordering Dr: Anya Steward DO CLINICAL: 79-year-old [...] Iván Hearn DO at 16:30 EDT Tel [phone], Service support [phone], Fax CC: Anay Steward DO Integration Director: Signed 14-Jan-2015 Chest PA and Lateral Result: Comments: See Note; NOTES: [facility] Imaging Services [address] [place] [address] Radiology Report MR#: [id number] Acct: [id number] Name: ASLMA DUENAS Rep #: [id number] : 1935 F 79 From: Sushil Benedict DO PCP: Anya Steward DO Status: REG CLI Study: Chest PA and Lateral Date of Exam: 01/14/15 Exam# [id number] Ordering Dr: Anya Steward DO STUDY: X-RAY [...] 2 3:58 EDT Tel , Service support [phone], RAD/Chest PA and Lateral IMPRESSION: Chronic appearing lung changes. Focal density in the right uppe r lobe adjacent to surgical staple line may represent a parenchymal scar. The previously identified right-sided rib fractures are not clearly visualized on this examination. Diffuse osteopenia, wi th findings of previous vertebroplasty. Electronically Signed: Sushil Benedict DO at 23:58 EDT Tel , Service support [phone], CC: Anya Steward DO Integration Director: Signed 15-Dec-2014 Ribs Uni Min 3V w/PA Chest Result: Comments: See Note; NOTES: [facility] Imaging Services [address] [place] [address] Radiology Report MR#: [id number] Acct: [id number] Name: SALMA DUENAS Rep #: [id number] : 1935 F 79 From: Adal Kelly MD PCP: Anya Steward DO Status: REG CLI Study: Ribs Uni Min 3V w/PA Chest Date of Exam: 12/15/14 Exam# [id number] Ordering Dr: Anya Steward STUDY: X-RAY - [...] Borderline cardiac enlargement. 4. Left chest wall Bdijuc-l-Nmoh in place. 5. Prior cement augmentation of the T8 and T1 1 vertebra. Electronically Signed: Louis Kelly MD at 20:09 EDT , Service support [phone], RAD/Ribs Uni Min 3V w/PA C hest IMPRESSION: RIBS: Fractures of the anterolateral right fifth and sixth ribs. CHEST: 1. Prior right upper lobectomy. Surgical clips also seen in the right axilla/upper arm. 2. Chronic interst itial changes in the lungs. 3. Borderline cardiac enlargement. 4. Left chest wall Eqwwou-r-Rugw in place. 5. Prior cement augmentation of the T8 and T11 vertebra. Electronically Signed: Louis meyers MD at 20:09 EDT , Service support [phone], CC: Anya Steward DO Integration Director: Signed 02-Dec-2014 Dexa Bone Density Study (HP) Result: Comments: See Note; NOTES: [facility] Imaging Services [address] [place] [address] Bone Density Report MR#: [id number] Acct: [id number] Name: SALMA DUENAS Rep # : [id number] : 1935 F 79 From: Vishal Mendez MD PCP: Anya Steward DO Status: [facility] CLI Study: Dexa Bone Density Study (HP) Date of Exam: 12/02/14 Exam# [id number] Ordering Dr: Anya Steward DO STUDY: DUAL [...] Vishal Mendez MD at 9:28 EDT Tel [phone], Service sup port [phone], CC: Anya Steward DO Integration Director: Signed 24-Oct-2014 Hip min 2 Views Result: Comments: See Note; NOTES: [facility] Imaging Services [address] [place] [address] Radiology Report MR#: [id number] Acct: [id number] Name: SALMA DUENAS Rep #: [id number] : 1935 F 78 From: Dave Castanon MD PCP: Anya Steward DO Status: PRE CLI Study: Hip min 2 Views Date of Exam: 10/24/14 Exam# [id number] Ordering Dr: Felix Parra MD STUDY: X- [...] MD at 19:29 EDT , Service support [phone], CC: Anya Steward DO; Felix Parra Integration Director: Signed 20-Oct-2014 Inital Evaluation - PT Result: Comments: See Note; NOTES: [facility] [address] [place], [place] [address] Fax REHABILITATION SERVICES INITIAL EVALUATION MR#: [id number] Acct: [id number] Name: SALMA DUENAS Rep #: [id number] : 1935 78 From: Mary Lou Hinkle [...] Mary Lou Hinkle DPT T: LETICIA JOB: [id number] &#60 ;Electronically signed by Mary Lou Hinkle > 10/20/14 1514 CC: Signed For Medicare only, by signing this I certify the plan of care. ____ Physicians Signature Date 26-May-2014 Lumbar Spine 2 or 3 Views Result: Comments: See Note; NOTES: [facility] Imaging Services [address] [place] [address] Radiology Report MR#: [id number] Acct: [id number] Name: SALMA DUENAS Rep #: [id number] : 1935 F 78 From: Shamir Leigh DO PCP: Anya Steward DO Status: REG CLI Study: Lumbar Spine 2 or 3 Views Date of Exam: 05/26/14 Exam# [id number] Ordering Dr: Gal Shields MD BRITTNI: X-RAY - LUMBAR SPINE REASON FOR EXAM: [...] at T8 and T11. Electronically Signed: Shamir ReeseDO at 16:47 EDT Tel [phone], Service support [phone], CC: Gal Shields MD; Anya Steward DO Integration Director: Signed 26-May-2014 Thoracic Spine 3 Views Result: Comments: See Note; NOTES: [facility] Imaging Services [address] [place] [address] Radiology Report MR#: [id number] Acct: [id number] Name: SALMA DUENAS Rep #: [id number] : 1935 F 78 From: Federico Galeas DO PCP: Anya Steward DO Status: REG CLI Study: Thoracic Spine 3 Views Date of Exam: 05/26/14 Exam# [id number] Ordering Dr: Gal Shields MD STUDY: X-RAY [...] Federico Galeas DO at 19:00 EDT Tel [phone], Service support [phone], CC: Gal Shields MD; Anya Steward DO Integration Director: Signed 26-May-2014 Thoracic Spine 3 Views Result: Comments: See Note; NOTES: [facility] Imaging Services [address] [place] [address] Radiology Report MR#: [id number] Acct: [id number] Name: SALMA DUENAS Rep #: [id number] : 1935 F 78 From: Federico Galeas DO PCP: Anya Steward DO Status: REG CLI Study: Thoracic Spine 3 Views Date of Exam: 05/26/14 Exam# [id number] Ordering Dr: Gal Shields MD ADDENDU M by Federico Galeas DO on 05/26/14 at 1902 ADDENDUM ADDENDUM: When compared to a study from April 29, 2014, there is increasing compression of T7, and especially T6 segment. Electronically Signed: Federico Galeas DO at 19:02 EDT Tel [phone], Service support [phone], Fax 05/26/14 1902 Date cc: Gal Shields MD; Anya Steward [...] Federico Galeas DO at 19:00 EDT Tel [phone], Service support [phone], RAD/Thoracic Sp ine 3 Views IMPRESSION: Old compression deformity of T6-T8 and T11 segments of the thoracic spine. Vertebroplasty of T8 and T11. Electronically Signed: Federico Galeas DO at 19:00 EDT Tel [phone], Service support [phone], CC: Gal Shields MD; Anya Steward DO Integration Director: Signed 19-May-2014 Upper GI w/BA Swallow Result: Comments: See Note; NOTES: [facility] Imaging Services [address] [place] [address] Radiology Report MR#: [id number] Acct: [id number] Name: SALMA DUENAS Rep #: [id number] : 1935 F 78 From: Vishal Mendez MD PCP: Anya Steward DO Status: REG CLI Study: Upper GI w/BA Swallow Date of Exam: 05/19/14 Exam# [id number] Ordering Dr: Felix Parra MD STUDY: X-RAY [...] Vishal Mendez MD at 14:20 EDT Tel [phone], Service support [phone], STUDY: AIR-CONTRAST UP PER GI SERIES. REASON [...] Vishal Mendez MD at 14:21 EDT Tel [phone], Service support [phone], CC: Anya Steward DO; Felix Parra Integration Director: Signed 29-Apr-2014 Lumbar Spine 2 or 3 Views Result: Comments: See Note; NOTES: [facility] Imaging Services [address] [place] [address] Radiology Report MR#: [id number] Acct: [id number] Name: SALMA DUENAS Rep #: : 1935 F 78 From: Marshall Chandler MD PCP: Anya Steward DO Status: REG CLI Study: Lumbar Spine 2 or 3 Views Date of Exam: 04/29/14 Exam# [id number] Ordering Dr: Gal Shields MD STUDY: X-RAY [...] MD at 23:47 EDT , Service support [phone], CC: Gal Shields MD; Anya Steward DO Integration Director: Signed 29-Apr-2014 Thoracic Spine 3 Views Result: Comments: See Note; NOTES: [facility] Imaging Services [address] [place] [address] Radiology Report MR#: [id number] Acct: [id number] Name: SALMA DUENAS Rep #: : 1935 F 78 From: Marshall Chandler MD PCP: Anya Steward DO Status: REG CLI Study: Thoracic Spine 3 Views Date of Exam: 04/29/14 Exam# [id number] Ordering Dr: Gal Shields MD STUDY: X-RAY [...] MD at 0:37 EDT , Service support [phone], CC: Gal Shields MD; Anya Steward DO Integration Director: Signed 28-Apr-2014 PET/CT Tumor Base -Thigh Subs Result: Comments: See Note; NOTES: [facility] Imaging Services [address] [place] [address] PET Scan Report MR#: [id number] Acct: [id number] Name: ERWINLALASALMA Kenn Rep #: [id number] : 1935 F 78 From: Iván Hearn DO PCP: Anya Steward DO Status: REG CLI Study: PET/CT Tumor Base -Thigh Subs Date of Exam: 04/28/14 Exam# [id number] Ordering Dr: Felix Parra MD INDICATIONS: A [...] aneurysm formation. Coronary arterial calcification is observed. Tvqp-O-Mxis-MediPort placement is noted. Scattered mediastinal and several [...] Iván Hearn DO at 22:10 EDT Tel [phone], Service support [phone], CC: Anya Steward DO; Felix Parra Integration Director: Signed 10-Feb-2014 Operative Report Result: Comments: See Note; NOTES: [facility] Medical Records Department [address] [place] [address] Operative Report 02/10/14 0829 MR#: [id number] Acct: [id number] Name: SALMA DENNISON Rep #: [id number] : 1935 78 From: Justine Caldwell MD [...] prophylaxis not ordered:: Surgical contraindication 02/10/14 1112 <Denise mehta signed by Justine Caldwell MD> Date Justine Caldwell MD CC: Anya Steward DO; Justine Caldwell MD; Felix Parra Signed Immunization Name Dates Details Influenza (3 years and up) on: 13-Apr-2009 Comments: rob ak 0.5 [place] [address] 4p exp 10 Pneumococcal (2 years and [...] Active 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: Active Non Drinker/No Alcohol Use [...] Area Calculated 1.71 m2 :44 Comments: hearing irvint eye doc in winter and had a glaucoma test done Pulse [...] 0.00 cm Results Date Description Value Details 1-Vrf-218785:38 Metabolic Panel, Comprehensive Comments: PATIENT NOT FASTINGPERFORMED BY: [facility]Hbxlte1074 [facility] [id number] ([id number]) ALT (SGPT) 6 [iU]/L (Normal) Range: 0-32 AST (SGOT) 15 [iU]/L (Normal) Range: 0-40 Alkaline Phosphatase 65 [iU]/L (Normal) Range: 39-117 Bilirubin, Total 0.3 mg/dL (Normal) Range: 0.0-1.2 A/G Ratio 1.4 (Normal) Range: 1.2-2.2 Globulin, Total 3.0 g/dL (Normal) Range: 1.5-4.5 Albumin 4.1 g/dL (Normal) Range: 3.5-4.7 Protein, Total 7.1 g/dL (Normal) Range: 6.0-8.5 Calcium 9.6 mg/dL (Normal) Range: 8.7-10.3 Carbon Dioxide, Total 16 mmol/L (Abnormal) Range: 20-29 Chloride 102 mmol/L (Normal) Range: 96-106 Potassium 4.5 mmol/L (Normal) Range: 3.5-5.2 Sodium 135 mmol/L (Normal) Range: 134-144 BUN/Creatinine Ratio 16 (Normal) Range: 12-28 eGFR If Africn Am 19 mL/min/1.73 (Abnormal) eGFR If NonAfricn Am 16 mL/min/1.73 (Abnormal) Creatinine 2.63 mg/dL (Abnormal) Range: 0.57-1.00 BUN 41 mg/dL (Abnormal) Range: 8-27 Glucose 101 mg/dL (Abnormal) Range: 65-99 5-Ypt-726235:38 CBC & PLATELETS (AUTO) (36324) Comments: PATIENT NOT FASTINGPERFORMED BY: [place] [id number] [facility] [id number] Platelets 298 {x10E3/uL} (Normal) Range: 150-379 RDW 14.1 % (Normal) Range: 12.3-15.4 MCHC 33.1 g/dL (Normal) Range: 31.5-35.7 MCH 28.3 pg (Normal) Range: 26.6-33.0 MCV 85 fL (Normal) Range: 79-97 Hematocrit 28.1 % (Abnormal) Range: 34.0-46.6 Hemoglobin 9.3 g/dL (Abnormal) Range: 11.1-15.9 RBC 3.29 {x10E6/uL} (Abnormal) Range: 3.77-5.28 WBC 9.8 {x10E3/uL} (Normal) Range: 3.4-10.8 :24 THROAT CULTURE (52219) Comments: PATIENT NOT FASTINGPERFORMED BY: [facility]6370 [facility] [id number] Information: THROAT SRC:TH Result 1 RRF (Normal) Comments: Routine respiratory raegan Upper Respiratory Culture Final report (Normal) 03-Ldp-644248:12 Rapid Strep Test, Office (83139) Rapid Strep Test, Office Negative (Normal) 36-Luz-172495:03 CBC W/Diff, Automated Comments: [facility] [address] [place], [address] Absolute Lymph 1.28 {X10_3/ul} (Normal) Range: 0.83-4.51 [...] 4.2-5.4 WBC 7.4 K/mm3 (Normal) Range: 4.4-11.0 76-Rle-812270:03 Ferritin Comments: Is Patient Taking Vitamins or Folic Acid Supplements? [facility] [address] [place], [place], [address] FERRITIN 119 ng/mL (Normal) Range: 8-252 16-Iwk-273064:03 Folates, (Folic Acid) Comments: Is Patient Taking Vitamins or Folic Acid Supplements? [facility] [address] [place], [place], [address] FOLATES > 100.00 ng/mL (Abnormal) Range: 3.1-55.4 48-Vyg-596433:03 Iron+Iron Binding Capacity Comments: Is Patient Taking Vitamins or Folic Acid Supplements? [facility] [address] [place], [address] IRON SATURATION 26.1 % (Normal) Range: 15.0-55.0 IRON 70 ug/dL (Normal) Range: 50-170 TIBC 268 ug/dL (Normal) Range: 250-450 02-Zmg-513530:03 Protein+Creatinine Ratio,Urine Comments: [facility] [address] [place], [address] PROT:CRE RATIO 488 {mg/g_CRE} (Abnormal) Range: 0-200 PROTEIN,UR.RAN. 84.9 mg/dL (Abnormal) UR CREAT 174.00 mg/dL (Normal) 76-Pcy-677897:03 PTHIN 25.1 pg/mL (Normal) Comments: [facility] [address] [place], [address] Range: 18.4-80.1 04-Ghd-685639:03 Renal Profile Comments: Is Patient Taking Vitamins or Folic Acid Supplements? [facility] [address] [place], [address] CO2 17.0 mmol/L (Abnormal) Range: 21.0-32.0 CL [...] Comments: Please note revised GLUCOSE reference range actbpdnos59/02/2018. 46-Zsd-720773:03 Vitamin B12 673 pg/mL (Normal) Comments: [facility] [address] [place], [address] Range: 211-911 76-Luv-842366:03 Vitamin D,25 Hydroxy Comments: [facility] [address] [place], [address] Vitamin D 25-OH 30.2 ng/mL (Normal) Range: 29.95-100.01 Comments: Vitamin D 25(OH) Status Range Deficiency <20 ng/mL (50nmol/L) Insuffciency 20 - 30 ng/mL (50 - 75 nmol/L) Sufficiency 30 - 100 ng/mL (75 - 250 nmol/L) Toxicity >100 ng/mL (>250 nmol/L) 24-Wdm-435292:24 URINE ANURAG CULTURE-TYSON COL Comments: PATIENT NOT FASTINGPERFORMED BY: [facility] [address] Paiz RoadDublRussell County Hospital [id number] Information: SRC:UC COUNT (34807) Antimicrobial MIHEAD (Normal) Comments: S = Susceptible; [...] and Proteusmirabilis. Urine Final report Culture,Comprehensive (Abnormal) 49-Fdm-962059:03 Urinalysis, Office (78249) UA - LEUKOCYTE ESTERASE Large (Normal) UA - NITRITE Negative (Normal) URINE UROBILINGN TYSON TIMED Normal mg/dL (Normal) UA - PROTEIN 100 mg/dL (Normal) UA - PH 6 (Abnormal) UA - SPECIFIC GRAVITY 1.030 (Abnormal) UA - KETONES Negative mg/dL (Normal) UA - BILIRUBIN Negative (Normal) UA - GLUCOSE Negative (Normal) 0-Ayq-920907:30 URINE ANURAG CULTURE-IDENTIFICATN Comments: PATIENT NOT FASTINGPERFORMED BY: [facility] Xiutan0407 Paiz [facility] [id number] Information: SRC:EVERETT (26116) Antimicrobial MIHEAD (Normal) Comments: S = Susceptible; [...] and Proteusmirabilis. Urine Final report Culture,Comprehensive (Abnormal) 6-Mdi-141041:22 Urinalysis, Office (65020) UA - LEUKOCYTE ESTERASE Large (Normal) UA - NITRITE Positive (Normal) URINE UROBILINGN TYSON TIMED Normal mg/dL (Normal) UA - PROTEIN 300 mg/dL (Normal) UA - PH 6 (Abnormal) UA - BLOOD Hemolyzed Large (Normal) UA - SPECIFIC GRAVITY 1.030 (Abnormal) UA - KETONES Negative mg/dL (Normal) UA - BILIRUBIN Negative (Normal) UA - GLUCOSE Negative (Normal) 1-Aer-963539:06 CBC W/Diff, Automated Comments: Reason for Laboratory Test [facility] [address] [place], [place], [address] Absolute Lymph 1.45 {X10_3/ul} (Normal) Range: 0.83-4.51 [...] 4.2-5.4 WBC 6.8 K/mm3 (Normal) Range: 4.4-11.0 3-Fqm-450174:06 Comprehensive Metabolic Profil Comments: Reason for Laboratory Test OVSerial Specimen #1, #2 or #3? [facility] Yhcdsapind6[address] [place], [place], [address] GAP 8 (Normal) Range: 5-15 CO2 22.0 [...] Comments: Please note revised GLUCOSE reference range bpycxlnwk78/02/2018. 2-Jpv-258017:06 LDH 141 U/L (Normal) Comments: Reason for Laboratory Test OVSerial Specimen #1, #2 or #3? [facility] [address] [place], [place], [address] Range: 84-246 74-Wqp-239921:23 Metabolic Panel, Basic Comments: assure GFR is in this [panel if not do separately; PATIENT NOT FASTINGPERFORMED BY: [facility] Cxleii9201 [facility] [id number] ([id number]) Calcium 9.9 mg/dL (Normal) Range: 8.7-10.3 Carbon [...] 8-27 Glucose 80 mg/dL (Normal) Range: 65-99 81-Jfw-931614:48 Metabolic Panel, Comprehensive Comments: PATIENT NOT FASTINGPERFORMED BY: [facility] Tfhghq1262 [facility] [id number] (31033) ALT (SGPT) 8 [iU]/L (Normal) Range: 0-32 [...] Male Female 0 days - 30 days - 16 - 31 days - 1 year 15 - [...] 8-27 Glucose 89 mg/dL (Normal) Range: 65-99 72-Sig-417328:48 C-REACTIVE PROTEIN (57309) Comments: PATIENT NOT FASTINGPERFORMED BY: CloudBeds6370 Beers EnterprisesD[facility] [id number] C-Reactive Protein, Quant 5.1 mg/L (Abnormal) Range: 0.0-4.9 :48 Sed Rate Erythrocyte (30598) Comments: PATIENT NOT FASTINGPERFORMED BY: [employer] Wskwkz8285 [facility] [id number] Sedimentation Rate-[facility] Islandren 4 mm/h (Normal) Range: 0-40 39-Hua-341946:48 CBC W/AUTO DIFF WBC (23683) Comments: PATIENT NOT FASTINGPERFORMED BY: [employer] Smqman1222 [facility] [id number] Immature Grans (Abs) 0.0 {x10E3/uL} (Normal) Range: [...] 3.77-5.28 WBC 10.3 {x10E3/uL} (Normal) Range: 3.4-10.8 25-Zqe-288517:59 CBC-Complete Blood Cnt No Diff Comments: [facility] [address] [place], [place], [phone] MPV 10.2 fL (Normal) Range: 6.2-12.0 PLT [...] 4.2-5.4 WBC 6.2 K/mm3 (Normal) Range: 4.4-11.0 00-Jog-561247:59 Magnesium Comments: [facility] [address] [place], [place], [address] MG 2.1 mg/dL (Normal) Range: 1.6-2.6 59-Xjb-485402:59 Microalb:Creat Ratio,Random UR Comments: [facility] Move[address] [place], [address] MALB:CREAT 27.0 {mg/g_CRE} (Normal) MICROALBUMIN,UR 44.5 mg/L (Normal) UR CREAT 165.00 mg/dL (Normal) 46-Pby-014094:59 PTHIN 32.8 pg/mL (Normal) Comments: [facility] [address] [place], [address] Range: 18.4-80.1 66-Zrf-191791:59 Renal Profile Comments: [facility] [address] [place], [address] CO2 21.0 mmol/L (Normal) Range: 21.0-32.0 CL [...] Comments: Please note revised GLUCOSE reference range xnqwiketd16/02/2018. 12-Wrz-959308:59 Vitamin D,25 Hydroxy Comments: [facility] [address]pm[address] [place], [address] Vitamin D 25-OH 35.5 ng/mL (Normal) Range: 29.95-100.01 Comments: Vitamin D 25(OH) Status Range Deficiency <20 ng/mL (50nmol/L) Insuffciency 20 - 30 ng/mL (50 - 75 nmol/L) Sufficiency 30 - 100 ng/mL (75 - 250 nmol/L) Toxicity >100 ng/mL (>250 nmol/L) 0-Uti-108592:33 CBC-Complete Blood Cnt No Diff Comments: [facility] [address] [place], [address] MPV 10.1 fL (Normal) Range: 6.2-12.0 PLT [...] 4.2-5.4 WBC 6.4 K/mm3 (Normal) Range: 4.4-11.0 8-Wou-545221:33 Magnesium Comments: [facility] [address] [place], [address] MG 1.8 mg/dL (Normal) Range: 1.8-2.4 4-Fkh-792655:33 Microalb:Creat Ratio,Random UR Comments: [facility] [address] [place], [address] MALB:CREAT 24.8 {mg/g_CRE} (Normal) MICROALBUMIN,UR 41.4 mg/L (Normal) UR CREAT 167.00 mg/dL (Normal) 4-Ehp-096813:33 PTHIN 8.3 pg/mL (Abnormal) Comments: [facility] [address] [place], [address] Range: 18.4-80.1 Comments: Please Note: PTH INTACT METHOD AND REFERENCE RANGE CHANGEEffective 07/19/2017. 7-Dfn-185117:33 Renal Profile Comments: [facility] [address] [place], [address] CO2 25.0 mmol/L (Normal) Range: 21.0-32.0 CL [...] 7-18 GLU 89 mg/dL (Normal) Range: 70-110 0-Jsa-471067:33 Vitamin D,25 Hydroxy Comments: [facility] [address] [place], [address] Vitamin D 25-OH 50.6 ng/mL (Normal) Comments: Vitamin D 25(OH) Status Range Deficiency <20 ng/mL (50nmol/L) Insuffciency 20 - 30 ng/mL (50 - 75 nmol/L) Sufficiency 30 - 100 ng/mL (75 - 250 nmol/L) Toxicity >100 ng/mL (>250 nmol/L) 8-Yph-563360:30 CBC W/Diff, Automated Comments: [facility] [address] [place], [address] ; Ungur Absolute Lymph 1.75 {X10_3/ul} (Normal) [...] 4.2-5.4 WBC 5.6 K/mm3 (Normal) Range: 4.4-11.0 8-Tly-627172:30 Prothrombin Time w/INR Comments: [facility] [address] [place], [place], [address] INR 1.3 (Normal) PROTIME 15.2 s (Abnormal) Range: 11.7-14.9 89-Xjp-278393:49 CBC W/Diff, Automated Comments: [facility] [address] [facility] [address] [place], [place], [address] Absolute Lymph 1.42 {X10_3/ul} (Normal) Range: 0.83-4.51 [...] 4.2-5.4 WBC 4.9 K/mm3 (Normal) Range: 4.4-11.0 53-Tzj-705875:43 Prothrombin Time w/INR Comments: Reason for Laboratory Test [facility] [address] [place], [place], [address] INR 1.1 (Normal) PROTIME 13.6 s (Normal) Range: 11.7-14.9 14-Lqv-941834:06 MAGNESIUM (15912) Comments: PATIENT NOT FASTINGPERFORMED BY: [facility]Ymgcbn5327 [facility] [id number] Magnesium, Serum 1.8 mg/dL (Normal) Range: 1.6-2.3 31-Vnb-358141:06 METABOLIC PANEL, COMPREHENSIVE Comments: PATIENT NOT FASTINGPERFORMED BY: [facility]Yriqna8530 [facility] [id number] (63355) ALT (SGPT) 11 [iU]/L (Normal) Range: 0-32 [...] Glucose, Serum 109 mg/dL (Abnormal) Range: 65-99 43-Lju-851596:53 Metabolic Panel, Basic Comments: PATIENT NOT FASTINGPERFORMED BY: [facility] Vdbazq3375 [facility] [id number] (38640) Calcium, Serum 8.7 mg/dL (Normal) Range: 8.7-10.3 [...] Glucose, Serum 80 mg/dL (Normal) Range: 65-99 24-Tti-166445:32 Basic Metabolic Profile (BMP) Comments: Order Date: 07/11/17Order Info: 0667-1 - [facility] [address]sfiksrv[address] [place], [place], [address] GAP 9 (Normal) Range: 5-15 CO2 26.0 [...] 7-18 GLU 78 mg/dL (Normal) Range: 70-110 91-Yqm-856638:32 Prothrombin Time w/INR Comments: Order Date: 07/11/17Order Info: 6301-6 - PTHigh[facility] [address]qmmhu[address] [place], [address] INR 1.3 (Normal) PROTIME 15.4 s (Abnormal) Range: 11.7-14.9 5-Cqy-163681:52 CBC W/Diff, Automated Comments: Reason for Laboratory Test .[facility] [address] [place], [address] Absolute Lymph 0.61 {X10_3/ul} (Abnormal) Range: 0.83-4.51 [...] 4.2-5.4 WBC 10.7 K/mm3 (Normal) Range: 4.4-11.0 6-Gvw-728777:52 Comprehensive Metabolic Profil Comments: Reason for Laboratory Test .Serial Specimen #1, #2 or #3? [facility] Pfxsmdkfzu4035 [facility]. [place], [place], [address] GAP 12 (Normal) Range: 5-15 CO2 24.0 [...] 7-18 GLU 69 mg/dL (Abnormal) Range: 70-110 2-Dgp-246608:52 LDH 214 U/L (Normal) Comments: Reason for Laboratory Test .Serial Specimen #1, #2 or #3? 1[facility] [address] [place], [place], [address] Range: 84-246 2-Mpa-060220:13 Prothrombin Time w/INR Comments: Reason for Laboratory Test [facility]IN[facility] [address]wfcl[address] [place], [place], [address] INR 1.9 (Normal) PROTIME 21.1 s (Abnormal) Range: 11.7-14.9 31-Cnn-026011:00 Basic Metabolic Profile (BMP) Comments: [facility] [address] [place], [address] GAP 10 (Normal) Range: 5-15 CO2 20.0 [...] 7-18 GLU 80 mg/dL (Normal) Range: 70-110 59-Opl-775401:00 CBC W/Diff, Automated Comments: [facility] [address] [place], [address] Absolute Lymph 0.82 {X10_3/ul} (Abnormal) Range: 0.83-4.51 [...] 4.2-5.4 WBC 16.6 K/mm3 (Abnormal) Range: 4.4-11.0 29-Gvs-965053:00 Prothrombin Time w/INR Comments: [facility] [address] [facility] [address] [place], [place], [address] INR 2.3 (Normal) PROTIME 24.0 s (Abnormal) Range: 11.7-14.9 15-Gkb-470412:45 Basic Metabolic Profile (BMP) Comments: 'TROP' Serial specimen #1, #2, #3, or #4: 1[facility] Shqpaqixrg[address] [facility]. [place], [place], [address] GAP 13 (Normal) Range: 5-15 CO2 18.0 [...] 7-18 GLU 92 mg/dL (Normal) Range: 70-110 26-Viw-738687:45 CBC W/Diff, Automated Comments: [facility] [address] [place], [place], [address] SMEAR COMMENT SCANNED (Normal) Absolute Lymph 1.14 [...] 4.2-5.4 WBC 14.5 K/mm3 (Abnormal) Range: 4.4-11.0 :45 Lipase Comments: 'TROP' Serial specimen #1, #2, #3, or #4: [facility] [address] [place], [address] LIPASE 189 U/L (Normal) Range: 73-393 00-Zbh-513806:45 Liver Profile Comments: 'TROP' Serial specimen #1, #2, #3, or #4: [address] [place] [address] [address] [place], [place], [address] D BILI 0.13 mg/dL (Normal) Range: 0.00-0.30 T BILI 0.40 mg/dL (Normal) Range: 0.20-1.00 ALT 13 U/L (Normal) Range: 12-78 ALK P 72 U/L (Normal) Range: 45-117 AST 17 U/L (Normal) Range: 15-37 GLOB 4.4 g/dL (Abnormal) Range: 2.2-4.2 ALB 2.4 g/dL (Abnormal) Range: 3.4-5.0 Comments: Please note revised Albumin AND Globulin reference rangeeffective 2017. T PROT 6.8 g/dL (Normal) Range: 6.4-8.2 09-Tof-000933:45 Troponin-I Comments: 'TROP' Serial specimen #1, #2, #3, or #4: [address] [place] [address] [address] [place], [place], [address] TROPONIN-I < 0.02 ng/mL Comments: TROPONIN-I EXPECTED VALUES <0.05 NEGATIVE 0.06 - 0.59 AT RISK OF [place] > OR = 0.60 SUGGEST TX (Normal) LDH 156 [iU]/L (Normal) Comments: PATIENT NOT FASTINGPERFORMED BY: [employer] [facility] [id number] Information: HARD DRAW 4:49 Range: 119-226 Written Authorization WAR (Normal) Comments: PATIENT NOT FASTINGPERFORMED BY: Le[employer] Bcviwv2044 [facility] [id number] 4:49 Comments: Written Authorization Received.Authorization received from Rambo STEWARD [id number] by Supriya Cutler 37-Sbx-474153:49 FIBRIN DEGRAD D-DIM TYSON Comments: PATIENT NOT FASTINGPERFORMED BY: [employer]chi Iuytfn5096 [facility] [id number] ([id number]) D-Dimer 0.75 {mg/L_FEU} (Abnormal) Range: 0.00-0.49 Comments: According to the assay sanitary engineering teacher's published package insert, anormal (<0.50 mg/L FEU) D-dimer result in conjunction with a non-highclinical probability assessment, excludes deep vein thrombosis (D VT)and pulmonary embolism (PE) with high sensitivity. .D-dimer values increase with age and this can make VTE exclusion ofan older pop ulation difficult. To address this, the [place] [employer], based on best available evidence [...] and an80 year old 0.80 mg/L FEU. 09-Khc-544607:49 CREATINE KINASE TOTAL (64682) Comments: PATIENT NOT FASTINGPERFORMED BY: [employer] [facility] Rvkzbv5649 Paiz RoadDublin [place] [id number] Creatine Kinase,Total,Serum 75 U/L (Normal) Range: 24-173 :49 Troponin I (71009) Comments: PATIENT NOT FASTINGPERFORMED BY: [employer] [facility] Xgppcc2988 Paiz RoadDublin [place] [id number] Troponin I <0.01 ng/mL (Normal) Range: 0.00-0.04 :49 CALCIFIDIOL (99798) VIT D 25 Comments: PATIENT NOT FASTINGPERFORMED BY: [employer] [facility] Ygbtoo7930 Paiz RoadDublin [place] [id number] Vitamin D, 25-Hydroxy 44.5 ng/mL (Normal) Range: 30.0-100.0 Comments: Vitamin D deficiency has been defined by the [place] ofMedicine and an Endocrine Society practice guideline as alevel of serum 25-OH vitamin D less than 20 ng/mL (1,2).The Endocrine Society went on to further define vitamin Dinsufficiency as a level between 21 and 29 ng/mL (2).1. IOM ([place] of Medicine). 2010. Dietary reference intakes for calcium and D. [place]: The National Academies Press.2. Lluvia MF, Wade [place], Tanner VENEGAS, et al. Evaluation, treatment, and prevention of vitamin D deficiency: an Endocrine Society clinical practice guideline. JCEM. 2010; 96(7):1911-30. :49 Folate (04610) Comments: PATIENT NOT FASTINGPERFORMED BY: CB [facility] Vqevnw0608 Paiz RoadDublin [place] [id number] Folate (Folic Acid), Serum >20.0 ng/mL (Normal) Comments: A serum folate concentration of less than 3.1 ng/mL isconsidered to represent clinical deficiency. :49 VITAMIN B-12 (CYANOCOBALAMIN) Comments: PATIENT NOT FASTINGPERFORMED BY: CB [facility] Pfwcvo9486 Paiz RoadDublin [place] [id number] (57065) Vitamin B12 1257 pg/mL (Abnormal) Range: 211-946 :49 TSH (46034) Comments: PATIENT NOT FASTINGPERFORMED BY: CB [facility] Oedlsv3976 Paiz RoadDublin [place] [id number] TSH 3.740 {uIU/mL} (Normal) Range: 0.450-4.500 :49 SED RATE ERYTHROCYTE (13664) Comments: PATIENT NOT FASTINGPERFORMED BY: CB [facility] Sxekzw1636 Paiz RoadDublin [place] [id number] Sedimentation Rate-Westergren 68 mm/h (Abnormal) Range: 0-40 :49 METABOLIC PANEL, Comments: PATIENT NOT FASTINGPERFORMED BY: CB [facility] Nouywd3144 Paiz RoadDublin [place] [id number] Information: HARD DRAW COMPREHENSIVE (44575) ALT (SGPT) 13 [iU]/L (Normal) Range: 0-32 [...] Glucose, Serum 86 mg/dL (Normal) Range: 65-99 07-Drx-974275:49 C-REACTIVE PROTEIN (72562) Comments: PATIENT NOT FASTINGPERFORMED BY: [employer] Zkvfug9264 ResultlyAt[facility] City [id number] C-Reactive Protein, Quant 39.7 mg/L (Abnormal) Range: 0.0-4.9 91-Bny-163314:49 CBC (AUTO) (17684) Comments: PATIENT NOT FASTINGPERFORMED BY: [facility]ensionJeff[facility])Mhanik5724 ResultlyAtrium Health University [facility] [id number] Platelets 289 {x10E3/uL} (Normal) Range: 150-379 RDW 14.1 % (Normal) Range: 12.3-15.4 MCHC 33.8 g/dL (Normal) Range: 31.5-35.7 MCH 28.8 pg (Normal) Range: 26.6-33.0 MCV 85 fL (Normal) Range: 79-97 Hematocrit 30.8 % (Abnormal) Range: 34.0-46.6 Hemoglobin 10.4 g/dL (Abnormal) Range: 11.1-15.9 RBC 3.61 {x10E6/uL} (Abnormal) Range: 3.77-5.28 WBC 7.4 {x10E3/uL} (Normal) Range: 3.4-10.8 89-Hbj-55069:53 Prothrombin Time w/INR Comments: Reason for Laboratory Test [facility]INHigh[facility] [address]izde[address], [address] INR 3.0 (Normal) PROTIME 30.2 s (Abnormal) Range: 11.7-14.9 79-Xlp-693030:29 URINE ANURAG CULTURE-IDENTIFICATN Comments: PATIENT NOT FASTINGPERFORMED BY: [facility] Xgihrl1151 [place] [place] [id number] Information: SRC:EVERETT (82655) Result 1 MUG (Normal) Comments: Mixed urogenital flora1,000 Colonies/mL Urine Culture,Comprehensive Final report (Normal) 31-Wve-080920:12 Urinalysis, Office (76516) UA - LEUKOCYTE ESTERASE Negative (Normal) UA - NITRITE Negative (Normal) URINE UROBILINGN TYSON TIMED Normal mg/dL (Normal) UA - PROTEIN 30 mg/dL (Normal) UA - PH 6 (Abnormal) UA - BLOOD non-hemolyzed trace (Normal) UA - SPECIFIC GRAVITY 1.020 (Normal) UA - KETONES Negative mg/dL (Normal) UA - BILIRUBIN Negative (Normal) UA - GLUCOSE Negative (Normal) 81-Dyq-109666:45 CBC W/Diff, Auto - EPLAB Comments: At [facility] Outpatient [facility] [place] Medical Oncologypatients receive CBC w/auto Differential ONLY. Physicianwill place an order for a manual differential or Pathologistreview at his discretion. [facility] [place] OUTPATIENT [facility]. [address] [place] [address] [address] [employer]OVERY WORKER: OMERO ZAMUDIO DO PH:[phone] District Hospital [address]tomktmgdf[address] [place], [place], [address] Absolute Lymph 1.02 {X10_3/uL} (Normal) Range: 0.83-4.51 [...] 4.2-5.4 WBC 6.9 K/mm3 (Normal) Range: 4.4-11.0 15-Hwx-597961:32 LDH 182 U/L (Normal) Comments: Reason for Laboratory Test OFFICE VISIT/ROUTINESerial Specimen #1, #2 or #3? [facility] [address]wbogqfo[address] [place], [place], [address] Range: 84-246 79-Unu-472424:32 Prothrombin Time w/INR Comments: Reason for Laboratory Test ROUTINE MEDICATION CHECKWMercy Health St. [facility] [address]qctnv[address] [place], [place], [address] INR 2.6 (Normal) PROTIME 27.2 s (Abnormal) Range: 11.7-14.9 90-Yxw-516367:24 CBC W/Diff, Auto - EPLAB Comments: Reason for Laboratory Test .At [facility] Outpatient [facility] [place] Medical Oncologypatients receive CBC w/auto Differential ONLY. Physicianwill place an order for a manual differential or Pathologistrev Only iew at his discretion. [facility]. [address] [place] [address] [address] [employer] RECOVERY WORKER: OMERO ZAMUDIO DO PH:[phone] County Memorial Hospital Fmoodoqajd[address] [place], [address] Absolute Lymph 2.94 {X10_3/uL} (Normal) [...] 4.2-5.4 WBC 8.3 K/mm3 (Normal) Range: 4.4-11.0 28-Uvh-788437:24 Comprehensive Metabolic Profil Comments: Reason for Laboratory Test .[facility] Dpwahxjmgx3478 [facility] [place], [address] GAP 7 (Normal) Range: 5-15 CO2 19.0 [...] 7-18 GLU 77 mg/dL (Normal) Range: 70-110 2-Rrj-379239:31 CBC W/Diff, Auto - EPLAB Only Comments: [facility] [address]fefbzeshf[address] [place], [place], [address] Absolute Lymph 1.22 {X10_3/uL} (Normal) Range: 0.83-4.51 [...] 4.2-5.4 WBC 5.8 K/mm3 (Normal) Range: 4.4-11.0 :31 Ferritin Comments: [address] [place], [id number](9[address] FERRITIN 77 ng/mL (Normal) Range: 8-252 :31 Iron+Iron Binding Capacity Comments: [address] [place], [id number](959) IRON SATURATION 20.8 % (Normal) Range: 15.0-55.0 IRON 61 ug/dL (Normal) Range: 50-170 TIBC 293 ug/dL (Normal) Range: 250-450 :31 Magnesium Comments: [address] [place], [id number](898 MG 1.9 mg/dL (Normal) Range: 1.8-2.4 :31 Microalb:Creat Ratio,Random UR Comments: [address] [place], [id number] MALB:CREAT 15.2 {mg/g_CRE} (Normal) MICROALBUMIN,UR 19.0 mg/L (Normal) UR CREAT 125.00 mg/dL (Normal) :31 PTH,INTACT Comments: [address] [place], [id number] PTH,Intact 8 pg/mL (Abnormal) Range: 14-72 3-Zoz-358168:31 Renal Profile Comments: [address] [place], [id number](866 CO2 21.0 mmol/L (Normal) Range: 21.0-32.0 CL [...] Range: 70-110 :31 Vitamin D,25 Hydroxy Comments: [facility] [address] [facility] [address] [place], [place], [address] Vitamin D 25-OH 33.0 ng/mL (Normal) Comments: Vitamin D 25(OH) Status Range Deficiency <20 ng/mL (50nmol/L) Insuffciency 20 - 30 ng/mL (50 - 75 nmol/L) Sufficiency 30 - 100 ng/mL (75 - 250 nmol/L) Toxicity >100 ng/mL (>250 nmol/L) 9-Xzv-946383:30 Prothrombin Time w/INR Comments: Reason for Laboratory Test .[facility] [address] [place], [place], [address] INR 3.0 (Normal) PROTIME 30.0 s (Abnormal) Range: 11.7-14.9 :19 Basic Metabolic Profile (BMP) Comments: [facility] [address] [place], [place], [address] GAP 6 (Normal) Range: 5-15 CO2 23.0 [...] 7-18 GLU 101 mg/dL (Normal) Range: 70-110 5-Zlc-752601:17 Prothrombin Time w/INR Comments: Reason for Laboratory Test .[facility] [address] [place], [place], [address] INR 2.3 (Normal) PROTIME 24.3 s (Abnormal) Range: 11.7-14.9 01-Zii-091790:18 Prothrombin Time w/INR Comments: Send Results To: .Reason for Laboratory Test .[facility] [address] [place], [place], [address] INR 2.0 (Normal) PROTIME 21.7 s (Abnormal) Range: 11.7-14.9 9-Pyr-315933:48 Prothrombin Time w/INR Comments: Reason for Laboratory Test [facility]ITWooR[facility] [address]ahjs[address] [place], [place], [address] INR 1.6 (Normal) PROTIME 18.7 s (Abnormal) Range: 11.7-14.9 95-Lsn-782853:08 CBC W/Diff, Automated Comments: [facility] [address] [place], [place], [address] Absolute Lymph 1.22 {X10_3/ul} (Normal) Range: 0.83-4.51 [...] 4.2-5.4 WBC 6.4 K/mm3 (Normal) Range: 4.4-11.0 76-Zyz-202031:01 Comprehensive Metabolic Profil Comments: Order Date: 10/25/16Order Info: 0786-1 - *CMP Complete Metabolic PanelWMercy Health St. [facility] [address]mjugpxinx6005 [place], [address] GAP 6 (Normal) Range: 5-15 CO2 23.0 [...] 7-18 GLU 83 mg/dL (Normal) Range: 70-110 23-Yyp-638076:01 Prothrombin Time w/INR Comments: Order Date: 10/25/16Order Info: 6301-6 - *Prothrombin Time (PT)[facility] [address] [place], [place], [id number] INR 1.4 (Normal) PROTIME 16.8 s (Abnormal) Range: 11.7-14.9 8-Der-[id number]:44 Prothrombin Time w/INR Comments: [facility] [address] [place], [place], [id number] INR 1.8 (Normal) PROTIME 20.4 s (Abnormal) Range: 11.7-14.9 65-Ijo-184868:35 Prothrombin Time w/INR Comments: Reason for Laboratory Test ROUTINE CHECKReason for Laboratory Test ROUTINE CHECKReason for Laboratory Test ROUTINE CHECKWooRiverview Health Institute [address] [place], [place], [id number] INR 1.9 (Normal) PROTIME 21.4 s (Abnormal) Range: 11.7-14.9 :52 C-REACTIVE PROTEIN (48249) Comments: PATIENT NOT FASTINGPERFORMED BY: [facility] [facility] [id number] C-Reactive Protein, Quant 2.2 mg/L (Normal) Range: 0.0-4.9 :52 SED RATE ERYTHROCYTE (45264) Comments: PATIENT NOT FASTINGPERFORMED BY: [facility] [facility] [id number] Sedimentation Rate-Westergren 51 mm/h (Abnormal) Range: 0-40 :52 CBC W/AUTO DIFF WBC (09659) Comments: PATIENT NOT FASTINGPERFORMED BY: [facility] [facility] [id number] Immature Grans (Abs) 0.0 {x10E3/uL} (Normal) Range: [...] 3.77-5.28 WBC 5.4 {x10E3/uL} (Normal) Range: 3.4-10.8 9-Pkc-007494:30 Prothrombin Time w/INR Comments: Reason for Laboratory Test MONITORINGReason for Laboratory Test MONITORINGReason for Laboratory Test MONITORINGWMercy Health St. [facility] [address] [place], [place], [id number] INR 1.9 (Normal) PROTIME 21.4 s (Abnormal) Range: 11.7-14.9 0-Qhe-825695:22 CBC W/Diff, Auto - Comments: GETS CBCD,CRP,CMP,SED RATE,TSH,B12,VITDDR.RHEA GETS CBCD,PROCRER,PTH,VITD,MG,RENALDR.NICHELLE GETS CBCD,CRP,CMP,SED RATE,TSH,B12,VITDDR.RHEA GETS CBCD,PROCRER,PTH,VITD,MG,RENALAt [facility] Outpatient Ce EPLAB Only nter [facility] Medical Oncologypatients receive CBC w/auto Differential ONLY. Physicianotf place an order for a manual differential or Pathologistreview at his discretion. [facility] OUTPATIENT [facility]. [address] [address] [place] [address] [employer] RECOVERY WORKER: OMERO ZAMUDIO DO PH:[phone] District Hospital [address]cf[address] [place], [place], [address] Absolute Lymph 0.99 {X10_3/uL} (Normal) Range: 0.83-4.51 [...] 4.2-5.4 WBC 6.1 K/mm3 (Normal) Range: 4.4-11.0 4-Wwl-734218:22 Comprehensive Metabolic Comments: GETS CBCD,CRP,CMP,SED RATE,TSH,B12,VITDDR.RHEA GETS CBCD,PROCRER,PTH,VITD,MG,RENALWMercy Health St[facility] Tpiquqnpwl5091 [facility] CenterkortneyNew [place], [place], [address] Profil GAP 9 (Normal) Range: 5-15 CO2 [...] 7-18 GLU 87 mg/dL (Normal) Range: 70-110 9-Ihq-137053:22 CRP Comments: GETS CBCD,CRP,CMP,SED RATE,TSH,B12,VITDDR.RHEA GETS CBCD,PROCRER,PTH,VITD,MG,[facility] [address] [place], [address] C-REACTIVE PROT 10.40 mg/L (Abnormal) Range: 0.0-3.0 Comments: C-Reactive Protein (CRP) provides useful information for thediagnosis, therapy and monitoring of inflammatory processesand associated diseases. For the evaluation of Relative Riskfor Cardiovascular Dise ase, a High Sensitivity CRP (HSCRP)should be ordered. 4-Vaz-489657:22 Erythrocyte Sed Rate Comments: GETS CBCD,CRP,CMP,SED RATE,TSH,B12,VITDDR.RHEA GETS CBCD,PROCRER,PTH,VITD,MG,[facility] [address] [place], [address] SED RATE 91 mm/h (Abnormal) Range: 0-30 7-Gxv-559417:22 Magnesium Comments: GETS CBCD,CRP,CMP,SED RATE,TSH,B12,VITDDR.RHEA GETS CBCD,PROCRER,PTH,VITD,MG,[facility] [address] [place], [address] MG 1.9 mg/dL (Normal) Range: 1.8-2.4 9-Upg-695851:22 Phosphorus Comments: GETS CBCD,CRP,CMP,SED RATE,TSH,B12,VITDDR.RHEA GETS CBCD,PROCRER,PTH,VITD,MG,[facility] [address] [place], [address] PHOS 3.5 mg/dL (Normal) Range: 2.5-4.9 5-Nep-636593:22 Protein+Creatinine Comments: GETS CBCD,CRP,CMP,SED RATE,TSH,B12,VITDDR.RHEA GETS CBCD,PROCRER,PTH,VITD,MG,[facility] [address] [place], [place], [address] Ratio,Urine PROT:CRE RATIO 383 {mg/g_CRE} (Abnormal) Range: 0-200 PROTEIN,UR.RAN. 61.3 mg/dL (Abnormal) UR CREAT 160.00 mg/dL (Normal) 4-Nvn-949980:22 PTH,INTACT Comments: GETS CBCD,CRP,CMP,SED RATE,TSH,B12,VITDDR.RHEA GETS CBCD,PROCRER,PTH,VITD,MG,[facility] [address] [place], [place], [address] PTH,Intact 25 pg/mL (Normal) Range: 14-72 8-Byx-535628:22 Thyroid Stim Hormone Comments: GETS CBCD,CRP,CMP,SED RATE,TSH,B12,VITDDR.RHEA GETS CBCD,PROCRER,PTH,VITD,MG,[facility] [address] [place], [place], [address] (TSH) TSH 2.60 {uIU/mL} (Normal) Range: 0.358-3.74 3-Hds-219152:22 Vitamin B12 1286 pg/mL (Abnormal) Comments: GETS CBCD,CRP,CMP,SED RATE,TSH,B12,VITDDR.RHEA GETS CBCD,PROCRER,PTH,VITD,MG,[facility]NALHigh[facility] Hospital [address] [place], [place], [address] Range: 211-911 9-Hzx-954951:22 Vitamin D,25 Hydroxy Comments: GETS CBCD,CRP,CMP,SED RATE,TSH,B12,VITDDR.WILKERSON GETS CBCD,PROCRER,PTH,VITD,MG,RENALWMercy Health St[facility] [address]rob[address] [place], [address] Vitamin D 25-OH 45.2 ng/mL (Normal) Comments: Vitamin D 25(OH) Status Range Deficiency <20 ng/mL (50nmol/L) Insuffciency 20 - 30 ng/mL (50 - 75 nmol/L) Sufficiency 30 - 100 ng/mL (75 - 250 nmol/L) Toxicity >100 ng/mL (>250 nmol/L) 53-Tcw-003123:40 Prothrombin Time w/INR Comments: Order Date: 06/20/16Order Info: 6301-6 - *Prothrombin Time (PT)Order Date: 06/20/16Order Info: 6301-6 - *Prothrombin Time (PT)Order Date: 06/20/16Order Info: 6301-6 - *Prothrombin Time (PT)[facility] [address] [place], [place], [address] INR 1.9 (Normal) PROTIME 21.3 s (Abnormal) Range: 11.7-14.9 56-Lks-127172:48 Prothrombin Time w/INR Comments: Order Date: 10/25/16Order Info: 6301-6 - *Prothrombin Time (PT)Order Date: 10/25/16Order Info: 6301-6 - *Prothrombin Time (PT)Order Date: 10/25/16Order Info: 6301-6 - *Prothrombin Time (PT)[facility] [address] [place], [place], [address] INR 2.1 (Normal) PROTIME 22.5 s (Abnormal) Range: 11.7-14.9 35-Pqy-444116:34 CBC W/Diff, Auto - EPLAB Comments: Order Date: 07/13/16Order Info: 0184-1E - *CBC w/Diff - oncology ONLYOrder Date: 07/13/16Order Info: 0184- 1E - *CBC w/Diff - oncology ONLYAt [facility] Outpatient Center [facility] Medical Oncologypatients Only receive CBC w/auto Differential ONLY. Physicianwill place an order for a manual differential or Pathologistreview at his discretion. [facility] OUT[facility]. [address] [place] [place] [address] [employer] RECOVERY WORKER: OMERO ZAMUDIO DO PH:[phone] Date: 07/13/16Order Info: 0786-1 - *CMP Complete Metabolic PanelWMercy Health St. Vincent Medical Center [address] [place], [address] Absolute Lymph 1.04 {X10_3/uL} (Normal) Range: 0.83-4.51 [...] 4.2-5.4 WBC 5.3 K/mm3 (Normal) Range: 4.4-11.0 28-Wvd-804106:34 Comprehensive Metabolic Profil Comments: Order Date: 07/13/16Order Info: 0786-1 - *CMP Complete Metabolic PanelFER, IRON, IBC ADDED PER FAXED ORDEROrder Date: 07/13/16Order Info: 0786-1 - *CMP Complete Metabolic PanelWMcKitrick Hospital [address]csqra[address], [address] GAP 6 (Normal) Range: 5-15 CO2 24.0 [...] <126 mg/dLsuggests IMPAIRED HOMEOSTASIS per A.D.A. criteria. 32-Uga-720713:34 Ferritin Comments: Order Date: 07/13/16Order Info: 0786-1 - *CMP Complete Metabolic PanelFER, IRON, IBC ADDED PER FAXED ORDEROrder Date: 07/13/16Order Info: 0786-1 - *CMP Complete Metabolic PanelWooCleveland Clinic [facility]ina Hospital [address]ewzawq[address] [facility] [place], [place], [address] FERRITIN 134 ng/mL (Normal) Range: 8-252 02-Uis-387091:34 Iron+Iron Binding Capacity Comments: Order Date: 07/13/16Order Info: 0786-1 - *CMP Complete Metabolic PanelFER, IRON, IBC ADDED PER FAXED ORDEROrder Date: 07/13/16Order Info: 0786-1 - *[facility] Complete Metabolic PanelWMcKitrick Hospital [address]tqzsveo[address] [place], [place], [address] IRON SATURATION 21.6 % (Normal) Range: 15.0-55.0 IRON 60 ug/dL (Normal) Range: 50-170 TIBC 278 ug/dL (Normal) Range: 250-450 95-Rab-833643:34 Prothrombin Time w/INR Comments: Order Date: 09/27/16Order Info: 6301-6 - *Prothrombin Time (PT)Order Date: 09/27/16Order Info: 6301-6 - *Prothrombin Time (PT)Order Date: 07/13/16Order Info: 0786-1 - *[facility] Complete Metabolic PanelWWayne Hospital Amayktdpbp[address] [place], [place], [address] INR 1.8 (Normal) PROTIME 20.0 s (Abnormal) Range: 11.7-14.9 22-Bml-761567:15 Prothrombin Time w/INR Comments: Order Date: 09/13/16Order Info: 6301-6 - *Prothrombin Time (PT)Comments: PT/INROrder Date: 09/13/16Order Info: 6301-6 - *Prothrombin Time (PT)Comments: PT/INROrder Date: 09/13/16Order Info: 6301-6 - * Prothrombin Time (PT)Comments: PT/INRWMercy Health St. [facility] [address] [place], [place], [address] INR 2.0 (Normal) PROTIME 21.9 s (Abnormal) Range: 11.7-14.9 29-Lxt-051014:23 Protein+Creatinine Ratio,Urine Comments: [facility] [address] [place], [place], [address] PROT:CRE RATIO 426 {mg/g_CRE} (Abnormal) Range: 0-200 PROTEIN,UR.RAN. 77.6 mg/dL (Abnormal) UR CREAT 182.00 mg/dL (Normal) 53-Bte-269558:20 Magnesium Comments: [facility] [address] [place], [address] MG 1.8 mg/dL (Normal) Range: 1.8-2.4 21-Phr-431738:20 PTH,INTACT Comments: [facility] [address] [place], [address] PTH,Intact 112 pg/mL (Abnormal) Range: 14-72 97-Qip-397489:20 Renal Profile Comments: [facility] [address] [place], [place], [address] CO2 20.0 mmol/L (Abnormal) Range: 21.0-32.0 CL [...] 7-18 GLU 75 mg/dL (Normal) Range: 70-110 69-Rjr-015137:20 Vitamin D,25 Hydroxy Comments: [facility] [address] [place], [address] Vitamin D 25-OH 64.2 ng/mL (Normal) Comments: Vitamin D 25(OH) Status Range Deficiency <20 ng/mL (50nmol/L) Insuffciency 20 - 30 ng/mL (50 - 75 nmol/L) Sufficiency 30 - 100 ng/mL (75 - 250 nmol/L) Toxicity >100 ng/mL (>250 nmol/L) 16-Ovx-924951:11 Prothrombin Time w/INR Comments: Order Date: 08/30/16Order Info: 6301-6 - *Prothrombin Time (PT)Comments: PT/INROrder Date: 08/30/16Order Info: 6301-6 - *Prothrombin Time (PT)Comments: PT/INROrder Date: 08/30/16Order Info: 6301-6 - * Prothrombin Time (PT)Comments: PT/INRWMercy Health St. [facility] [address] [place], [address](894) INR 2.0 (Normal) PROTIME 22.0 s (Abnormal) Range: 11.7-14.9 2-Rii-333814:04 Prothrombin Time w/INR Comments: Order Date: 08/30/16Order Info: 6301-6 - *Prothrombin Time (PT)Comments: PT/INROrder Date: 08/30/16Order Info: 6301-6 - *Prothrombin Time (PT)Comments: PT/INROrder Date: 08/30/16Order Info: 6301-6 - * Prothrombin Time (PT)Comments: PT/INRWMercy Health St. [facility] [address] [place], [address] INR 2.7 (Normal) PROTIME 27.5 s (Abnormal) Range: 11.7-14.9 19-Tud-458900:14 Prothrombin Time w/INR Comments: Order Date: 08/16/16Order Info: 6301-6 - *Prothrombin Time (PT)Order Date: 08/16/16Order Info: 6301-6 - *Prothrombin Time (PT)Order Date: 08/16/16Order Info: 6301-6 - *Prothrombin Time (PT)[facility] [address], [address](918) INR 3.7 (Abnormal) Comments: CRITICAL VALUE REPEATED AND VERIFIED. CALLED TO [facility] SOEWCNAQ87/31/17 Howard2 Genevieve Shin.RESULTS READ BACK BY SAME . PROTIME 35.5 s (Abnormal) Range: 11.7-14.9 84-Pfh-622108:29 Prothrombin Time w/INR Comments: Order Date: 08/10/16Order Info: 6301-6 - *Prothrombin Time (PT)Comments: PT/INROrder Date: 08/10/16Order Info: 6301-6 - *Prothrombin Time (PT)Comments: PT/INROrder Date: 08/10/16Order Info: 6301-6 - * Prothrombin Time (PT)Comments: PT/INRWMercy Health St[facility] [address] [place], [place], [address] INR 2.4 (Normal) PROTIME 25.5 s (Abnormal) Range: 11.7-14.9 67-Qcm-271454:12 Prothrombin Time w/INR Comments: Order Date: 08/02/16Order Info: 6301-6 - *Prothrombin Time (PT)Order Date: 08/02/16Order Info: 6301-6 - *Prothrombin Time (PT)Order Date: 08/02/16Order Info: 6301-6 - *Prothrombin Time (PT)[facility] [address] [place], [address] INR 2.3 (Normal) PROTIME 24.3 s (Abnormal) Range: 11.7-14.9 75-Lnc-577379:35 CBC W/Diff, Auto - EPLAB Comments: Order Date: 07/13/16Order Info: 0184-1E - *CBC w/Diff - oncology ONLYOrder Date: 07/13/16Order Info: 0184- 1E - *CBC w/Diff - oncology ONLYAt [facility] Outpatient [facility] [place], [facility] By [facility] Medical Oncologypatients Only receive CBC w/auto Differential ONLY. Physicianwill place an order for a manual differential or Pathologistreview at his discretion. [facility] OUTPATIENT [facility]. [address] [place] [address] [address] [employer] RECOVERY WORKER: OMERO ZAMUDIO DO PH:[phone] Date: 07/13/16Order Info: 0786-1 - *CMP Complete Metabolic PanelWMercy Health St. [facility] [address] [place], [place], [address] Absolute Lymph 1.16 {X10_3/uL} (Normal) Range: 0.83-4.51 [...] 4.2-5.4 WBC 6.5 K/mm3 (Normal) Range: 4.4-11.0 21-Vgj-956074:35 Comprehensive Metabolic Profil Comments: Order Date: 07/13/16Order Info: 0786-1 - *CMP Complete Metabolic PanelOrder Date: 07/13/16Order Info: 0786-1 - *CMP Complete Metabolic PanelWMercy Health St. [facility] [address]nfyjm[address] [place], [place], [address] GAP 9 (Normal) Range: 5-15 CO2 21.0 [...] 7-18 GLU 78 mg/dL (Normal) Range: 70-110 35-Gnv-624264:35 Prothrombin Time w/INR Comments: Order Date: 07/13/16Order Info: 6301-6 - *PT/INROrder Date: 07/13/16Order Info: 6301-6 - *PT/INROrder Date: 07/13/16Order Info: 0786-1 - *CMP Complete Metabolic PanelWMercy Health St[facility] Laborat [address] [place], [place], [phone](597) INR 2.1 (Normal) PROTIME 22.8 s (Abnormal) Range: 11.7-14.9 55-Azk-538225:21 Ferritin Comments: [facility] [address] [place], [place], [address] FERRITIN 196 ng/mL (Normal) Range: 8-252 90-Vcj-884495:21 Iron+Iron Binding Capacity Comments: [facility] [address] [facility] [address] [place], [place], [address] IRON SATURATION 18.8 % (Normal) Range: 15.0-55.0 IRON 48 ug/dL (Abnormal) Range: 50-170 TIBC 256 ug/dL (Normal) Range: 250-450 :48 CBC, PLATELETS & AUT DIFF Comments: Send to Je Parra; PATIENT NOT FASTINGPERFORMED BY: [facility]CoLos [facility]amos Medical CenterGcpqwm0586 [facility] [id number] ([id number]) Immature Grans (Abs) 0.0 {x10E3/uL} (Normal) Range: [...] 3.77-5.28 WBC 6.4 {x10E3/uL} (Normal) Range: 3.4-10.8 :48 METABOLIC PANEL, COMPREHENSIVE Comments: Send to Je Parra; PATIENT NOT FASTINGPERFORMED BY: [facility]6370 [facility] [id number] ([id number]) ALT (SGPT) 7 [iU]/L (Normal) Range: 0-32 [...] Glucose, Serum 92 mg/dL (Normal) Range: 65-99 :48 PT (Prothrobim Time) (83613) Comments: Send to Dorinda Parra; PATIENT NOT FASTINGPERFORMED BY: [facility]Psqqyn1596 [facility] [id number] Prothrombin Time 34.0 {sec} (Abnormal) Range: 9.1-12.0 INR 3.4 (Abnormal) Range: 0.8-1.2 Comments: Reference interval is for non-anticoagulated patients. . Suggested INR therapeutic range for Vitamin K anta gonist therapy: Standard Dose (moderate intensity therapeutic range): 2.0 - 3.0 Higher intensity therapeutic range 2.5 - 3.5 12-Kzd-587345:37 Basic Metabolic Profile (BMP) Comments: Order Date: 07/12/16Order Info: 0667-1 - BMPOrder Info: 78423-0 - IBCOrder Info: 2276 - FEROrder Date: 07/12/16Order Info: 2276- - FERComments: to [facility]. [facility] Labora [address] [place], [place], [phone](083) GAP 8 (Normal) Range: 5-15 CO2 20.0 [...] 7-18 GLU 104 mg/dL (Normal) Range: 70-110 49-Cnm-311462:37 CBC W/Diff, Automated Comments: Order Date: 07/12/16Order Info: 0184-1 - CBCDComments: to Dr. Felix Mohamud Date: 07/12/16Order Info: 0184- 1 - CBCDComments: to Dr. Felix Mohamud Date: 07/12/16Order Info: 2276-4 - FERComments : to [facility]. [facility] [address] [place], [place], [address](881) Absolute Lymph 1.04 {X10_3/ul} (Normal) Range: 0.83-4.51 [...] 4.2-5.4 WBC 6.6 K/mm3 (Normal) Range: 4.4-11.0 27-Omc-507168:37 Iron+Iron Binding Capacity Comments: Order Date: 07/12/16Order Info: 0667-1 - BMPOrder Info: 89752-2 - IBCOrder Info: 2276-4 - FEROrder Date: 07/12/16Order Info: 2276-4 - FERComments: to Dr. [facility] [address] [place], [address] IRON 40 ug/dL (Abnormal) Range: 50-170 IRON SATURATION 12.5 % (Abnormal) Range: 15.0-55.0 TIBC 321 ug/dL (Normal) Range: 250-450 91-Ndx-448222:37 Prothrombin Time w/INR Comments: Order Date: 07/12/16Order Info: 6301-6 - PTOrder Date: 07/12/16Order Info: 6301-6 - PTOrder Date: 07/12/16Order Info: 2276-4 - [facility] [address] [place], [address] INR 2.2 (Normal) PROTIME 24.0 s (Abnormal) Range: 11.7-14.9 13-Xdx-680598:37 FERRITIN (94206) Comments: to Dr. Felix Parra; Order Date: 07/12/16Order Info: 0667-1 - BMPOrder Info: 94895-8 - IBCOrder Info: 2276-4 - FEROrder Date: 07/12/16Order Info: 2276-4 - FERComments: to Dr. [facility]raHigh[facility] [address]omk[address] [place] [place], [address] FERRITIN 311 ng/mL (Abnormal) Range: 8-252 33-Ynr-092055:50 Urinalysis, Complete Comments: Order Date: 06/17/16Has pt arrived? YOrder Date: 06/17/16Has pt arrived? YHow was Urine Obtained? ARMATURE WINDER TO [facility] [address] [place], [address] MUCUS, URINE 0 SEEN {/hpf} (Normal) BACTERIA [...] CLARITY Sl. Cloudy (Normal) COLOR Yellow (Normal) 32-Lpi-084699:15 Partial Thromboplast Time Comments: REDRAW. PREVIOUS SPECIMEN REJECTED DUE TOCONTAMINATED WITH HEPARIN FROM PORT DRAW. 06/17/[address] [place] [address].CRITICAL VALUE REPEATED AND VERIFIED. CALLED TO HYPUCVRWADFSC63/18/16 1255 Jessica Watts.R ESULTS READ BACK BY SAME .[facility] [address] [place], [place], [address](734) PTT 71.1 s (Abnormal) Range: 24.1-36.2 04-Crv-217558:15 Prothrombin Time w/INR Comments: REDRAW. PREVIOUS SPECIMEN REJECTED DUE TOCONTAMINATED WITH HEPARIN FROM PORT DRAW. 06/17/16 [facility].CRITICAL VALUE REPEATED AND VERIFIED. CALLED TO [id number]/18/16 1255 Jessica Watts.R ESULTS READ BACK BY SAME .[facility] [address] [place], [place], [address] INR 4.0 (Abnormal) PROTIME 37.5 s (Abnormal) Range: 11.7-14.9 19-Leh-062889:30 Basic Metabolic Profile (BMP) Comments: [facility] [address] [place], [place], [address] GAP 15 (Normal) Range: 5-15 CO2 17.0 [...] 7-18 GLU 92 mg/dL (Normal) Range: 70-110 04-Ohq-370176:30 CBC W/Diff, Automated Comments: [facility] [address] [place], [address] Absolute Lymph 0.82 {X10_3/ul} (Abnormal) Range: 0.83-4.51 [...] 4.2-5.4 WBC 6.3 K/mm3 (Normal) Range: 4.4-11.0 56-Dgp-650796:29 URINE ANURAG CULTURE-IDENTIFICATN Comments: PATIENT NOT FASTINGPERFORMED BY: [facility] Mlfhue7558 [facility] [id number] Information: SRC:EVERETT (23332) Result 1 Lactobacillus species Comments: 50,000-100,000 colony forming units per mLSusceptibility not normally performed on this organism. (Normal) Urine Final report (Normal) Culture,Comprehensive 88-Tfg-349878:02 Urinalysis, Office (55795) UA - LEUKOCYTE ESTERASE Large (Normal) UA - NITRITE Negative (Normal) URINE UROBILINGN TYSON TIMED 2 mg/dL (Normal) UA - PROTEIN 100 mg/dL (Normal) UA - PH 6.0 (Normal) UA - BLOOD Hemolyzed Trace (Normal) UA - SPECIFIC GRAVITY 1.025 (Normal) UA - KETONES Negative mg/dL (Normal) UA - BILIRUBIN Negative (Normal) UA - GLUCOSE Negative (Normal) 66-Gts-882625:24 Prothrombin Time w/INR Comments: CRITICAL VALUE REPEATED AND VERIFIED. CALLED TO [facility]06/16/16 143Anila Watts.RESULTS READ BACK BY MARTA .[facility] [address] [place], [place], [address](555) INR 3.8 (Abnormal) Comments: CRITICAL VALUE REPEATED AND VERIFIED. CALLED TO06/16/16 1438 Jessica Watts.RESULTS READ BACK BY . PROTIME 36.1 s (Abnormal) Range: 11.7-14.9 8-Tys-115331:17 Prothrombin Time w/INR Comments: [facility] [address] [place], [place], [phone](700) INR 2.1 (Normal) PROTIME 23.1 s (Abnormal) Range: 11.7-14.9 0-Mid-169200:16 CBC W/Diff, Auto - EPLAB Comments: SPECIMEN OBTAINED FROM LINE DRAWAt [facility] Outpatient [facility] [place], [facility]ated By [facility] Medical Oncologypatients receive CBC w/auto Differential ONLY. Physicianwill place an order for a manual differential or Pathologis Only treview at his discretion. [facility] OUTPATIENT [facility]. [address] [address] [address] [employer] RECOVERY WORKER: OMERO ZAMUDIO DO PH:[phone] County Hospital [address]ck[address] [place], [place], [phone](882) Absolute Lymph 1.13 {X10_3/uL} (Normal) Range: 0.83-4.51 [...] 4.2-5.4 WBC 5.0 K/mm3 (Normal) Range: 4.4-11.0 7-Phs-224125:16 Comprehensive Metabolic Profil Comments: Order Date: 03/09/16Interface Comments: Reason:Order Date: 03/09/16erial Specimen #1, #2 or #3? 1WMercy [facility] [address]oldvu[address], [place], [address] GAP 9 (Normal) Range: 5-15 CO2 21.0 [...] 7-18 GLU 92 mg/dL (Normal) Range: 70-110 3-Olh-890834:16 Ferritin Comments: Order Date: 03/09/16Interface Comments: Reason:Order Date: 16Serial Specimen #1, #2 or #3? [address] [place] [address] [address] [place], [place], [address] FERRITIN 120 ng/mL (Normal) Range: 8-252 4-Jlk-243193:16 Iron Comments: Order Date: 03/09/16Interface Comments: Reason:Order Date: 16Serial Specimen #1, #2 or #3? [address] [place] [address] [address] [place], [place], [address] IRON 107 ug/dL (Normal) Range: 50-170 2-Qpo-533292:16 Iron Binding Capacity,Total Comments: Order Date: 03/09/16Interface Comments: Reason:Order Date: 16Serial Specimen #1, #2 or #3? [address] [place] [address] [address] [place], [place], [address] TIBC 287 ug/dL (Normal) Range: 250-450 8-Szz-295196:16 LDH 174 U/L (Normal) Comments: Order Date: 03/09/16Interface Comments: Reason:Order Date: 03/09/16Serial Specimen #1, #2 or #3? [address] [place] [address] [address] [place], [address] Range: 84-246 2-Lja-055465:16 Uric Acid Comments: Order Date: 03/09/16Interface Comments: Reason:Order Date: 03/09/16Serial Specimen #1, #2 or #3? [address] [place] [address] [address] [place], [address] URIC 6.2 mg/dL (Abnormal) Range: 2.6-6.0 Comments: The drugs N-Acetylcysteine and Metamizole may falsely deressthis assay. [id number] Prothrombin Time w/INR Comments: Order Date: 05/13/16Order Info: 6301-6 - *Prothrombin Time (PT)Comments: PT/INROrder Date: 05/13/16Order Info: 6301-6 - *Prothrombin Time (PT)Comments: [facility] [id number] [place], [address] INR 3.1 (Normal) PROTIME 31.0 s (Abnormal) Range: 11.7-14.9 [id number] URINE ANURAG CULTURE-IDENTIFICATN Comments: PATIENT NOT FASTINGPERFORMED BY: [facility][id number] [facility] [id number] Information: SRC: ([id number]) Antimicrobial MIHEAD (Normal) Comments: S = Susceptible; [...] primarily for treating urinary tract infections. (CLSI, [id number],2009) Urine Culture,Comprehensive Final report (Abnormal) [id number] Urinalysis, Office (13044) UA - LEUKOCYTE ESTERASE Large (Normal) UA - NITRITE Negative (Normal) URINE UROBILINGN TYSON TIMED Normal mg/dL (Normal) UA - PROTEIN 30 mg/dL (Normal) UA - PH 6.0 (Normal) Comments: 5.5 UA - BLOOD non-hemolyzed trace (Normal) UA - SPECIFIC GRAVITY 1.025 (Normal) UA - KETONES Negative mg/dL (Normal) UA - BILIRUBIN Negative (Normal) UA - GLUCOSE Negative (Normal) [id number] Prothrombin Time w/INR Comments: Order Date: 05/09/16Order Date: 05/09/16[facility] [id number] [place], [address] INR 1.8 (Normal) PROTIME 20.7 s (Abnormal) Range: 11.7-14.9 :26 Prothrombin Time w/INR Comments: Order Date: 05/04/16Order Date: 05/04/16[facility] [id number] [place], [address] INR 1.8 (Normal) PROTIME 19.9 s (Abnormal) Range: 11.7-14.9 :31 Prothrombin Time w/INR Comments: CRITICAL VALUE REPEATED AND VERIFIED. CALLED TO [facility] Zulma Watts.RESULTS READ BACK BY MARTA .[facility] [id number], [phone] INR 4.4 (Abnormal) PROTIME 40.4 s (Abnormal) Range: 11.7-14.9 :44 CBC W/Diff, Auto - EPLAB Comments: At [facility] Medical Oncologypatients receive CBC w/auto Differential ONLY. Paulino place an order for a manual differential or Pathologistreview at his discretion. [facility]. [address] [address] [address] [employer]: OMERO ZAMUDIO DO PH:[phone] District Hospital [address]kondpcod[address] [place], [place], [address] Absolute Lymph 1.16 {X10_3/uL} (Normal) Range: 0.83-4.51 [...] 4.2-5.4 WBC 6.9 K/mm3 (Normal) Range: 4.4-11.0 62-Wmo-092525:44 Magnesium Comments: [facility] S[address]qgwjkf[address] [place], [place], [address] MG 1.7 mg/dL (Abnormal) Range: 1.8-2.4 :44 Protein+Creatinine Ratio,Urine Comments: [facility] [address]jejygos[address] [facility] [address] [place], [place], [address] PROT:CRE RATIO 397 {mg/g_CRE} (Abnormal) Range: 0-200 PROTEIN,UR.RAN. 89.0 mg/dL (Abnormal) UR CREAT 224.00 mg/dL (Normal) 72-Snc-825054:44 PTH,INTACT Comments: [facility] Nuatzqdhxs35[address] [place], [address] PTH,Intact 199 pg/mL (Abnormal) Range: 14-72 56-Zdv-966436:44 Renal Profile Comments: [facility] Bpqidsifby[address] [place], [address] CO2 21.0 mmol/L (Normal) Range: 21.0-32.0 [...] 7-18 GLU 94 mg/dL (Normal) Range: 70-110 29-Thi-851872:44 Vitamin D,25 Hydroxy Comments: [facility] Nrnhgztxrx[address] [place], [address] Vitamin D 25-OH 33.1 ng/mL (Normal) Comments: Vitamin D 25(OH) Status Range Deficiency <20 ng/mL (50nmol/L) Insuffciency 20 - 30 ng/mL (50 - 75 nmol/L) Sufficiency 30 - 100 ng/mL (75 - 250 nmol/L) Toxicity >100 ng/mL (>250 nmol/L) 18-All-113285:55 Prothrombin Time w/INR Comments: Order Date: 04/06/16Interface Comments: PT/INROrder Date: 04/06/16[facility] [address] [place], [address] INR 2.2 (Normal) PROTIME 23.9 s (Abnormal) Range: 11.7-14.9 9-Hmi-233109:22 Prothrombin Time w/INR Comments: Order Date: 03/30/16Order Date: 03/30/16[facility] [address]upsjna[address] [place], [address] INR 2.9 (Normal) PROTIME 29.4 s (Abnormal) Range: 11.7-14.9 80-Hsg-658450:02 Prothrombin Time w/INR Comments: Diagnosis:Order Date: 01/14/16OV ID:[id number] Order #: [id number] District Hospital Bcbkabfhga[address] [place], [address] INR 1.9 (Normal) PROTIME 21.1 s (Abnormal) Range: 11.7-14.9 33-Upa-966662:28 CBC W/Diff, Auto - EPLAB Comments: At [facility] Outpatient [facility] [place], [facility] Medical Oncologypatients receive CBC w/auto Differential ONLY. Physicianwill place an order for a manual differential or Pathologistreview at his discretion. [facility] [place] OUTPATIENT [facility]. [address] [address] [address] ACETONE RECOVERY WORKER: OMERO ZAMUDIO DO PH:[phone] District Hospital Vglkxpxueb06[address] [place], [address] Absolute Lymph 1.22 {X10_3/uL} (Normal) Range: 0.83-4.51 [...] 4.2-5.4 WBC 4.1 K/mm3 (Abnormal) Range: 4.4-11.0 23-Vmx-008068:28 Comprehensive Metabolic Profil Comments: Order Date: 03/09/16OV Order #: [id number] Specimen #1, #2 or #3? [id number] [facility] Ttpffkxnim40[address] [place], [place], [address] GAP 6 (Normal) Range: 5-15 CO2 23.0 [...] 7-18 GLU 73 mg/dL (Normal) Range: 70-110 :28 Ferritin Comments: Order Date: 03/09/16 Order #: [id number] Specimen #1, #2 or #3? [id number] [place] [address] Bcizbczxzs[address] [place], [place], [address] FERRITIN 117 ng/mL (Normal) Range: 8-252 :28 Iron+Iron Binding Capacity Comments: Order Date: 03/09/16 Order #: [id number] Specimen #1, #2 or #3? [id number] [place] [address] Opfkvpbyuv[address] [place], [place], [address] IRON SATURATION 33.1 % (Normal) Range: 15.0-55.0 IRON 97 ug/dL (Normal) Range: 50-170 TIBC 293 ug/dL (Normal) Range: 250-450 :28 LDH 169 U/L (Normal) Comments: Order Date: 03/09/16 Order #: [id number] Specimen #1, #2 or #3? [id number] [place] [address] Iakktl[address] [place], [place], [address] Range: 84-246 :28 Prothrombin Time w/INR Comments: Order Date: 03/09/16 Order #: [id number] [place] [address] Oxugixrwhv[address] [place], [place], [address] INR 2.7 (Normal) PROTIME 28.2 s (Abnormal) Range: 11.7-14.9 :28 Uric Acid Comments: Order Date: 08/10/16OV Order #: [id number] Specimen #1, #2 or #3? 1 [id number] District Hospital [address] [place], [address](150) URIC 6.5 mg/dL (Abnormal) Range: 2.6-6.0 Comments: The drugs N-Acetylcysteine and Metamizole may falsely deressthis assay. :49 Prothrombin Time w/INR Comments: Diagnosis:Order Date: 03/03/16OV ID:OV Order #: [id number] District Hospital [address] [place], [place], [address](470) INR 2.9 (Normal) PROTIME 29.4 s (Abnormal) Range: 11.7-14.9 :11 Prothrombin Time w/INR Comments: [facility] [address] [place], [address] INR 2.8 (Normal) PROTIME 28.3 s (Abnormal) Range: 11.7-14.9 :50 Prothrombin Time w/INR Comments: [facility] [address] [place], [place], [address](915) INR 2.5 (Normal) PROTIME 26.0 s (Abnormal) Range: 11.7-14.9 :10 Prothrombin Time w/INR Comments: [facility] [address] [place], [place], [address](804) INR 1.7 (Normal) PROTIME 19.3 s (Abnormal) Range: 11.7-14.9 :33 CBC W/Diff, Auto - EPLAB Comments: At [facility] Outpatient [facility] [place], [facility] Medical Oncologypatients receive CBC w/auto Differential ONLY. Physicianwill place an order for a manual differential or Pathologistreview at his discretion. [facility] [place] OUT[facility]IENT [facility]. [address] [place] [address] [place] [address] AC[employer]ONE RECOVERY WORKER: OMERO ZAMUDIO DO PH:[phone] District Hospital [address] [place], [place], [phone] Absolute Lymph 1.04 {X10_3/uL} (Normal) Range: 0.83-4.51 [...] 4.2-5.4 WBC 4.7 K/mm3 (Normal) Range: 4.4-11.0 91-Ewc-477207:32 Prothrombin Time w/INR Comments: [facility] [address]qsqkgm[address] [facility] [address] [place], [place], [address] INR 2.3 (Normal) PROTIME 24.2 s (Abnormal) Range: 11.7-14.9 8-Quz-611202:26 Prothrombin Time w/INR Comments: [facility] [address]pwuqxys[address] [facility] [address] [place], [place], [address](235) INR 2.1 (Normal) PROTIME 22.9 s (Abnormal) Range: 11.7-14.9 66-Gdn-286823:15 Prothrombin Time w/INR Comments: [facility] Drnftxmoqx[address] [facility] [address] [place], [place], [address] INR 2.2 (Normal) PROTIME 23.5 s (Abnormal) Range: 11.7-14.9 82-Dma-935507:14 Comprehensive Metabolic Profil Comments: [facility] Sbutaqbfnu[address] [place], [address] GAP 6 (Normal) Range: 5-15 CO2 23.0 [...] 7-18 GLU 78 mg/dL (Normal) Range: 70-110 70-Onx-470012:14 LDH 197 U/L (Normal) Comments: [facility] [address]qlbqtpsw[address] [place], [address] Range: 84-246 96-Jkn-470731:14 Uric Acid Comments: [facility] Edqdcweqqf95[address] [place], [address] URIC 7.2 mg/dL (Abnormal) Range: 2.6-6.0 02-Lwc-207528:10 CBC W/Diff, Auto - EPLAB Comments: At [facility] Medical Oncologypatients receive CBC w/auto Differential ONLY. Physicianotf place an order for a manual differential or Pathologistreview at his discretion. [facility] [place] OUT[facility]IENT [facility]. [address] [address] [place] [address] ACETONE RECOVERY WORKER: OMERO ZAMUDIO DO PH:[phone] District Hospital [address]rsa[address] [place], [place], [address] Absolute Lymph 1.12 {X10_3/uL} (Normal) Range: 0.83-4.51 [...] 4.2-5.4 WBC 5.8 K/mm3 (Normal) Range: 4.4-11.0 0-Ipj-604115:31 Prothrombin Time w/INR Comments: [facility] [address]ubmm[address] [place], [address] INR 2.9 (Normal) PROTIME 29.3 s (Abnormal) Range: 11.7-14.9 66-Zxv-058936:01 CBC W/Diff, Auto - EPLAB Comments: SPECIMEN OBTAINED FROM LINE DRAWAt [facility] Medical Oncologypatients receive CBC w/auto Differential ONLY. Physicianwill place an order for a manual differential or Pathologis Only treview at his discretion. [facility] OUTPATIENT [facility]. [address] [address] [address] AC[employer]ONE RECOVERY WORKER: OMERO ZAMUDIO DO PH:[phone] [facility] [address]xraldhzy[address] [place], [address] Absolute Lymph 1.09 {X10_3/uL} (Normal) [...] 4.2-5.4 WBC 5.5 K/mm3 (Normal) Range: 4.4-11.0 90-Nhk-105220:00 Prothrombin Time w/INR Comments: [facility] [address]emzme[address] [place], [address] INR 2.5 (Normal) PROTIME 26.4 s (Abnormal) Range: 11.7-14.9 06-Ltj-918090:59 Comprehensive Metabolic Profil Comments: Serial Specimen #1, #2 or #3? [address] [place] [address] [address] [place], [place], [address] GAP 8 (Normal) Range: 5-15 CO2 22.0 [...] 7-18 GLU 78 mg/dL (Normal) Range: 70-110 08-Bsf-926563:59 Ferritin Comments: Serial Specimen #1, #2 or #3? [address] [place] [address] Yyifiycomf[address] [place], [place], [address] FERRITIN 84 ng/mL (Normal) Range: 8-252 77-Qkj-714792:59 Iron+Iron Binding Capacity Comments: Serial Specimen #1, #2 or #3? [address] [place] [address] Mdwyukophw[address] [place], [address] IRON SATURATION 27.2 % (Normal) Range: 15.0-55.0 IRON 83 ug/dL (Normal) Range: 50-170 TIBC 305 ug/dL (Normal) Range: 250-450 70-Ezd-197053:59 LDH 195 U/L (Normal) Comments: Serial Specimen #1, #2 or #3? 1[facility] Ikpbcwaqbq[address] [place], [address] Range: 84-246 16-Qth-790457:59 Uric Acid Comments: Serial Specimen #1, #2 or #3? 1[facility] [address]khdyqy[address] [place], [address] URIC 7.2 mg/dL (Abnormal) Range: 2.6-6.0 :33 Prothrombin Time w/INR Comments: [place] [address] [place], [address] INR 3.0 (Normal) PROTIME 29.9 s (Abnormal) Range: 11.7-14.9 :08 Prothrombin Time w/INR Comments: [place] [address] [place], [address] INR 3.1 (Normal) PROTIME 30.8 s (Abnormal) Range: 11.7-14.9 :00 Basic Metabolic Profile (BMP) Comments: [place] [address] [place], [address] GAP 4 (Abnormal) Range: 5-15 CO2 24.0 [...] 7-18 GLU 80 mg/dL (Normal) Range: 70-110 :23 Magnesium Comments: [facility] [address] [place], [address] MG 1.8 mg/dL (Normal) Range: 1.8-2.4 :23 Protein+Creatinine Ratio,Urine Comments: [facility] [address] [place], [address] PROT:CRE RATIO 355 {mg/g_CRE} (Abnormal) Range: 0-200 PROTEIN,UR.RAN. 56.8 mg/dL (Abnormal) UR CREAT 160.00 mg/dL (Normal) 5-Dxr-989747:23 Prothrombin Time w/INR Comments: [facility] [address] [place], [address] INR 3.1 (Normal) PROTIME 31.8 s (Abnormal) Range: 11.7-14.9 :23 PTH,INTACT Comments: [facility] [address] [place], [address] PTH,Intact 71 pg/mL (Normal) Range: 14-72 3-Ood-530597:23 Renal Profile Comments: [facility] N[address]ayc[address] [place], [address] CO2 22.0 mmol/L (Normal) Range: 21.0-32.0 CL [...] 7-18 GLU 83 mg/dL (Normal) Range: 70-110 5-Zla-963544:23 Vitamin D 1,25-Dihydroxy Comments: [facility] (refer to report for specific site)refer to report for address and phone number VITD [phone] 25.0 pg/mL (Normal) Range: 19.9-79.3 Comments: Performed at: [address] [id number] Director: Matthew Nino MD, Phone: [phone] 4-Wxp-168993:22 CBC W/Diff, Auto - EPLAB Comments: At [facility] Outpatient [facility] [place], [facility] Medical Oncologypatients receive CBC w/auto Differential ONLY. Physicianwill place an order for a manual differential or Pathologistreview at his discretion. [facility] [place] OUT[facility]IENT [facility]. [address] [place] [address] [address] ACETONE RECOVERY WORKER: OMERO ZAMUDIO DO PH:[phone] District Hospital [address]tvutdtzuq39[address] [place], [place], [address] Absolute Lymph 1.64 {X10_3/uL} (Normal) Range: 0.83-4.51 [...] 4.2-5.4 WBC 6.1 K/mm3 (Normal) Range: 4.4-11.0 45-Muy-910987:39 Microscopic Examination Comments: PATIENT NOT FASTINGPERFORMED BY: [employer] (MM) Nnhoxu3887 [facility] [id number] Bacteria None seen (Normal) Mucus Threads Present (Normal) Crystal Type Calcium Oxalate (Normal) Crystals Present (Abnormal) Epithelial Cells (non renal) 0-10 {/hpf} (Normal) Range: 0 - 10 RBC 0-2 {/hpf} (Normal) Range: 0 - 2 WBC 0-5 {/hpf} (Normal) Range: 0 - 5 72-Hmd-002671:39 LIPID PANEL (57925) Comments: PATIENT NOT FASTINGPERFORMED BY: [facility]CoJeff[facility]Vtgtva9246 [facility] [id number] LDL/HDL Ratio 1.9 {ratio_units} (Normal) Range: 0.0-3.2 [...] Cholesterol, Total 185 mg/dL (Normal) Range: 100-199 01-Bnz-592925:39 TSH (24045) Comments: PATIENT NOT FASTINGPERFORMED BY: [facility]Cart[facility]6370 [facility] [id number] TSH 1.800 {uIU/mL} (Normal) Range: 0.450-4.500 31-Tkv-008734:39 URINALYSIS, W/ MICRO (54511) Comments: PATIENT NOT FASTINGPERFORMED BY: [facility]CartSouth[facility] Center6370 [facility] [id number] Microscopic Examination See below: (Normal) Comments: Microscopic was indicated and was performed. Nitrite, Urine Negative (Normal) Urobilinogen,Semi-Qn 0.2 mg/dL (Normal) Range: 0.2-1.0 Bilirubin Negative (Normal) Occult Blood Negative (Normal) Ketones Negative (Normal) Glucose Negative (Normal) Protein 1+ (Abnormal) WBC Esterase Trace (Abnormal) Appearance Cloudy (Abnormal) Urine-Color Yellow (Normal) pH 6.0 (Normal) Range: 5.0-7.5 Specific Ebony 1.014 (Normal) Range: 1.005-1.030 :39 MICROALBUMIN: CREATININE RATIO Comments: PATIENT NOT FASTINGPERFORMED BY: [facility]Cart[facility]6370 [facility] [id number] (28517) AND (51918) Microalb/Creat Ratio 34.2 {mg/g_creat} (Abnormal) Range: 0.0-30.0 Microalbumin, Urine 46.5 ug/mL (Abnormal) Range: 0.0-17.0 Creatinine, Urine 135.9 mg/dL (Normal) Range: 15.0-278.0 :39 METABOLIC PANEL, Comments: PATIENT NOT FASTINGPERFORMED BY: [facility]6370 [facility] [id number] Information: [id number] COMPREHENSIVE (66492) ALT (SGPT) 14 [iU]/L (Normal) Range: 0-32 [...] Glucose, Serum 79 mg/dL (Normal) Range: 65-99 09-Iop-293529:37 Prothrombin Time w/INR Comments: [facility] [address]tojdigr[address], [address] INR 2.5 (Normal) PROTIME 26.7 s (Abnormal) Range: 11.7-14.9 56-Vtx-186953:55 CBC W/Diff, Auto - EPLAB Comments: At [facility] Outpatient [facility] [place], [facility] Medical Oncologypatients receive CBC w/auto Differential ONLY. Physicianwill place an order for a manual differential or Pathologistreview at his discretion. [facility] [place] OUT[facility]IENT [facility]. [address] [address] [address] AC[employer]ONE RECOVERY WORKER: OMERO ZAMUDIO DO PH:[phone] Health [facility] O[address]klgmkhy[address] [place], [address] Absolute Lymph 1.30 {X10_3/uL} (Normal) Range: 0.83-4.51 [...] 4.2-5.4 WBC 5.8 K/mm3 (Normal) Range: 4.4-11.0 79-Ykj-733479:55 Prothrombin Time w/INR Comments: [facility] [address]vpuzcpp[address] [place], [place], [address] INR 2.5 (Normal) PROTIME 27.3 s (Abnormal) Range: 11.7-14.9 0-Zlw-785737:31 Rapid Flu (28303 x 2) Influenza A Ag negative (Normal) 7-Oqb-812770:25 CBC W/Diff, Auto - EPLAB Comments: At [facility] Outpatient [facility] [place], [facility] Medical Oncologypatients receive CBC w/auto Differential ONLY. Physicianwill place an order for a manual differential or Pathologistreview at his discretion. [facility] OUT[facility]IENT [facility]. [address] [address] [address] ACETONE RECOVERY WORKER: OMERO ZAMUDIO DO PH:[phone] District Hospital [address]wkkuvb[address] [place], [address] Absolute Lymph 1.41 {X10_3/uL} (Normal) Range: 0.83-4.51 [...] 4.2-5.4 WBC 7.3 K/mm3 (Normal) Range: 4.4-11.0 2-Djy-119677:25 Prothrombin Time w/INR Comments: [facility] Qjbxzqlknn[address] [place], [place], [address] INR 1.9 (Normal) PROTIME 22.2 s (Abnormal) Range: 11.7-14.9 99-Ykn-385725:15 CBC W/Diff, Auto - EPLAB Comments: At [facility] Outpatient [facility] [place], [facility] Medical Oncologypatients receive CBC w/auto Differential ONLY. Physicianwill place an order for a manual differential or Pathologistreview at his discretion. [facility] [place] [facility]. [address] [address] [address] ACETONE RECOVERY WORKER: OMERO ZAMUDIO DO PH:[phone] District Hospital [address] [place], [address] Absolute Lymph 1.34 {X10_3/uL} (Normal) Range: 0.83-4.51 [...] 4.2-5.4 WBC 6.2 K/mm3 (Normal) Range: 4.4-11.0 78-Fzf-734408:15 Prothrombin Time w/INR Comments: [facility] [address] [place] [address], [id number] INR 2.2 (Normal) PROTIME 24.2 s (Abnormal) Range: 11.7-14.9 93-Qbl-737855:08 Ferritin Comments: THIS IS STORED UNDER THE XTRA RACK FROM [facility] Tuwrcvrxin[address] [place], [place], [address] FERRITIN 49 ng/mL (Normal) Range: 8-252 63-Nsj-675603:08 Iron Comments: THIS IS STORED UNDER THE XTRA RACK FROM [facility] [address] [place], [place], [address] IRON 42 ug/dL (Abnormal) Range: 50-170 47-Gzo-795298:08 Iron Binding Capacity,Total Comments: THIS IS STORED UNDER THE XTRA RACK FROM [facility] Hjezssmgfz[address] [place], [place], [address] TIBC 299 ug/dL (Normal) Range: 250-450 15-Lxx-512450:08 Prothrombin Time w/INR Comments: [facility] [address]bpvj[address] [place], [place], [address] INR 2.2 (Normal) PROTIME 24.4 s (Abnormal) Range: 11.7-14.9 56-Hsk-468749:55 CBC W/Diff, Auto - EPLAB Comments: At [facility] Outpatient [facility] [place] Medical Oncologypatients receive CBC w/auto Differential ONLY. Physicianwill place an order for a manual differential or Pathologistreview at his discretion. [facility] OUT[facility]IENT [facility]. [address] [address] [address] ACETONE RECOVERY WORKER: OMERO ZAMUDIO DO PH:[phone] District Hospital [address]upwmd[address] [place], [place], [address] Absolute Lymph 1.28 {X10_3/uL} (Normal) Range: 0.83-4.51 [...] 4.2-5.4 WBC 5.8 K/mm3 (Normal) Range: 4.4-11.0 10-Pux-470362:15 CBC W/Diff, Auto - EPLAB Comments: [facility] Oncologypatients receive CBC w/auto Differential ONLY. Physicianwill place an order for a manual differential or Pathologistreview at his discretion. [facility]. [address] [address] [address] ACETONE RECOVERY WORKER: OMERO ZAMUDIO DO PH:[phone] District Hospital [address]eshjmfhe[address] [place], [address] Absolute Lymph 0.98 {X10_3/uL} (Normal) [...] 4.2-5.4 WBC 6.3 K/mm3 (Normal) Range: 4.4-11.0 73-Rss-313252:15 Comprehensive Metabolic Profil Comments: Serial Specimen #1, #2 or #3? 1[facility] Ohxgtyaxfr[address], [address] GAP 9 (Normal) Range: 5-15 CO2 23.0 [...] 7-18 GLU 105 mg/dL (Normal) Range: 70-110 06-Wrp-212168:15 LDH 194 U/L (Normal) Comments: Serial Specimen #1, #2 or #3? 1WMer[facility] [address] [place], [place], [address] Range: 84-246 60-Eti-565183:15 Prothrombin Time w/INR Comments: [facility] [address] [facility] [place], [address] INR 3.4 (Normal) PROTIME 34.0 s (Abnormal) Range: 11.7-14.9 40-Aez-254063:15 Uric Acid Comments: Serial Specimen #1, #2 or #3? 1WMer[facility] [address]hwqsh[address] [place], [place], [address] URIC 7.1 mg/dL (Abnormal) Range: 2.6-6.0 2-Ppe-728242:41 Prothrombin Time w/INR Comments: [facility] [address]qjqmdrv[address] [place], [place], [address] INR 2.9 (Normal) PROTIME 30.4 s (Abnormal) Range: 11.7-14.9 4-Nno-218986:22 CBC W/Diff, Auto - EPLAB Comments: At [facility] Outpatient [facility] [place] Medical Oncologypatients receive CBC w/auto Differential ONLY. Physicianwill place an order for a manual differential or Pathologistreview at his discretion. [facility]. [address] [place] [address] [address] ACETONE RECOVERY WORKER: OMERO ZAMUDIO DO PH:[phone] District Hospital [address]cizzbck[address] [place], [place], [address] Absolute Lymph 1.01 {X10_3/uL} (Normal) Range: 0.83-4.51 [...] 4.2-5.4 WBC 6.5 K/mm3 (Normal) Range: 4.4-11.0 2-Jbq-799161:22 Comprehensive Metabolic Profil Comments: Serial Specimen #1, #2 or #3? 1[facility] [address]imvzng[address] [place], [place], [address] GAP 9 (Normal) Range: 5-15 CO2 23.0 [...] 126 mg/dLsuggests DIABETES MELLITUS per A.D.A. criteria. 9-Jbm-609633:22 LDH 220 U/L (Normal) Comments: Serial Specimen #1, #2 or #3? 1[facility] [address] [place], [address] Range: 84-246 5-Lup-019814:22 Uric Acid Comments: Serial Specimen #1, #2 or #3? 1[facility] [address] [place], [address] URIC 5.9 mg/dL (Normal) Range: 2.6-6.0 77-Xuh-864005:00 Prothrombin Time w/INR Comments: [facility] [address] [place], [address] INR 2.2 (Normal) PROTIME 24.1 s (Abnormal) Range: 11.7-14.9 95-Khv-476033:10 Prothrombin Time w/INR Comments: [facility] [address] [place], [address] INR 2.4 (Normal) PROTIME 26.4 s (Abnormal) Range: 11.7-14.9 47-Fsj-268249:40 Prothrombin Time w/INR Comments: [facility] [address]whle[address] [place], [address] INR 2.4 (Normal) PROTIME 26.3 s (Abnormal) Range: 11.7-14.9 [id number] CBC W/Diff, Auto - EPLAB Comments: At [facility] Outpatient [facility], [place], [facility] Oncologypatients receive CBC w/auto Differential ONLY. Physicianwill place an order for a manual differential or Pathologistreview at his discretion. [facility] [place] [facility]. [address] [address] [address] [employer]: OMERO ZAMUDIO DO PH:[phone] District Hospital [id number] [place], [id number] Absolute Lymph 1.45 {X10_3/uL} (Normal) Range: 0.83-4.51 [...] K/mm3 (Normal) Range: 4.4-11.0 :59 Magnesium Comments: [facility] [id number] [place], [phone]) MG 1.7 mg/dL (Abnormal) Range: 1.8-2.4 :59 Protein+Creatinine Ratio,Urine Comments: [facility] [id number] [place], [id number] PROT:CRE RATIO 250 {mg/g_CRE} (Abnormal) Range: 0-200 PROTEIN,UR.RAN. 46.8 mg/dL (Abnormal) UR CREAT 187.00 mg/dL (Normal) [id number] PTH,INTACT Comments: [facility] [id number] [place], [id number] PTH,Intact 81 pg/mL (Abnormal) Range: 14-72 7-Tex-359831:59 Renal Profile Comments: [facility] [address] [place], [address](051) CO2 22.0 mmol/L (Normal) Range: 21.0-32.0 CL [...] 7-18 GLU 94 mg/dL (Normal) Range: 70-110 7-Edl-156653:59 Vitamin D,25 Hydroxy Comments: [facility] Iltnlwdtjj[address] [facility] [place], [address] Vitamin D 25-OH 39.3 ng/mL (Normal) Comments: Vitamin D 25(OH) Status Range Deficiency <20 ng/mL (50nmol/L) Insuffciency 20 - 30 ng/mL (50 - 75 nmol/L) Sufficiency 30 - 100 ng/mL (75 - 250 nmol/L) Toxicity >100 ng/mL (>250 nmol/L) 3-Fnw-289596:40 Lipid Profile Comments: PT TO DR PARRA, TSH, MICRO ALB CREA, [facility] Wpfdgvmvwt1599 [facility], [address] VLDL 29 mg/dL (Normal) Range: [...] 200-240 mg/dL Borderline >240 mg/dL High Risk 3-Xvj-620061:40 Microalb:Creat Ratio,Random UR Comments: [facility] [address] [place], [place], [id number] MALB:CREAT 14.5 {mg/g_CRE} (Normal) MICROALBUMIN,UR 14.8 mg/L (Normal) UR CREAT 102.00 mg/dL (Normal) 5-Wuz-362040:40 Prothrombin Time w/INR Comments: [facility] [address] [place], [place], [id number] INR 2.3 (Normal) PROTIME 25.1 s (Abnormal) Range: 11.7-14.9 4-Npv-879408:40 Thyroid Stim Hormone (TSH) Comments: PT TO DR PARRA, TSH, MICRO ALB CREA, UAC AND LIPD TO [facility] [address]haqjb[address], [address] TSH 3.62 {uIU/mL} (Normal) Range: 0.358-3.74 9-Kfg-282185:40 Urinalysis, Complete Comments: How was Urine Obtained? [facility] [address] [place], [address] MUCUS, URINE 0 SEEN {/hpf} [...] CLARITY Sl. Cloudy (Normal) COLOR Yellow (Normal) 24-Mja-797353:15 CBC W/Diff, Auto - EPLAB Comments: At [facility] Outpatient Center [facility] [place] Medical Oncologypatients receive CBC w/auto Differential ONLY. Physicianwill place an order for a manual differential or Pathologistreview at his discretion. [facility] [place] OUTPATIENT [facility]. [address] [address] [place] [address] ACETONE RECOVERY WORKER: OMERO ZAMUDIO DO PH:[phone] District Hospital [address] [place], [place], [id number] Absolute Lymph 1.10 {X10_3/uL} (Normal) Range: 0.83-4.51 [...] 4.2-5.4 WBC 5.7 K/mm3 (Normal) Range: 4.4-11.0 23-Qlz-300007:15 Comprehensive Metabolic Profil Comments: Serial Specimen #1, #2 or #3? 1[facility] [address] [place], [address] GAP 10 (Normal) Range: 5-15 CO2 21.0 [...] 7-18 GLU 74 mg/dL (Normal) Range: 70-110 00-Svs-637038:15 LDH 188 U/L (Normal) Comments: Serial Specimen #1, #2 or #3? [facility] [address]roirsca[address], [address] Range: 84-246 97-Kte-404986:15 Prothrombin Time w/INR Comments: [facility] [address], [address] INR 2.1 (Normal) PROTIME 23.5 s (Abnormal) Range: 11.7-14.9 69-Oyc-647363:15 Uric Acid Comments: Serial Specimen #1, #2 or #3? 1[facility] [address] [place] [place], [id number] URIC 6.6 mg/dL (Abnormal) Range: 2.6-6.0 24-Ivx-976490:50 Basic Metabolic Profile (BMP) Comments: SPECIMEN OBTAINED FROM [facility] [address] [place], [address] GAP 8 (Normal) Range: 5-15 CO2 20.0 [...] 7-18 GLU 85 mg/dL (Normal) Range: 70-110 24-Kuy-721766:50 Prothrombin Time w/INR Comments: SPECIMEN OBTAINED FROM [facility] [address], [address] INR 1.6 (Normal) PROTIME 19.4 s (Abnormal) Range: 11.7-14.9 4-Mqb-021425:10 CBC W/Diff, Automated Comments: At [facility] Outpatient [facility] [place] Medical Oncologypatients receive CBC w/auto Differential ONLY. Physicianwill place an order for a manual differential or Pathologistreview at his discretion. [facility]. [address] [address] [place] [address] ACETONE RECOVERY WORKER: OMERO ZAMUDIO DO PH:[phone] performed at:[facility] Laborato [address] [place] [address] Absolute Lymph 0.81 {X10_3/ul} (Abnormal) [...] 4.2-5.4 WBC 4.9 K/mm3 (Normal) Range: 4.4-11.0 9-Cyu-258901:10 Comprehensive Metabolic Profil Comments: Serial Specimen #1, #2 or #3? 1Test performed at:[facility] [address] [place] [address] ; handled by felix TIAN 9 (Normal) [...] Comments: Please note revised CREATININE reference range kxdbsmtyz79/22/2015. BUN 43 mg/dL (Abnormal) Range: 7-18 GLU 79 mg/dL (Normal) Range: 70-110 1-Zxs-648971:10 LDH 202 U/L (Normal) Comments: Serial Specimen #1, #2 or #3? 1Test performed at:[facility] [address] [place] [address] Range: 84-246 3-Iay-760174:10 Prothrombin Time w/INR Comments: Test performed at:[facility] Enfpmqnvrz[address] [facility] [address] INR 2.3 (Normal) PROTIME 25.6 s (Abnormal) Range: 11.7-14.9 3-Sfs-935624:10 Uric Acid Comments: Serial Specimen #1, #2 or #3? 1Test performed at:[facility] [address] [place] [address] URIC 6.3 mg/dL (Abnormal) Range: 2.6-6.0 80-Bge-460127:00 Prothrombin Time w/INR Comments: Test performed at:[facility] [address] [place] [address] INR 2.5 (Normal) PROTIME 26.8 s (Abnormal) Range: 11.7-14.9 87-Obu-705357:37 CALCIFIDIOL (69789) VIT D 25 Comments: PATIENT NOT FASTINGPERFORMED BY: [facility]6370 [facility] [id number] Vitamin D, 25-Hydroxy 40.0 ng/mL (Normal) Range: 30.0-100.0 Comments: Vitamin D deficiency has been defined by the [place] ofMedicine and an Endocrine Society practice guideline as alevel of serum 25-OH vitamin D less than 20 ng/mL (1,2).The Endocrine Society went on to further define vitamin Dinsufficiency as a level between 21 and 29 ng/mL (2).1. IOM ([place] of Medicine). 2010. Dietary reference intakes for calcium and D. [place]: The National Academies Press.2. Lluvia MF, Wade [place], Tanner VENEGAS, et al. Evaluation, treatment, and prevention of vitamin D deficiency: an Endocrine Society clinical practice guideline. JCEM. 2010; 96(7):1911-30. 44-Axu-017529:37 TSH (21274) Comments: PATIENT NOT FASTINGPERFORMED BY: [facility]6370 [facility] [id number] Information: [id number] TSH 3.550 {uIU/mL} (Normal) Range: 0.450-4.500 62-Gam-175575:40 Prothrombin Time w/INR Comments: Test performed at:[facility] [address] [place] [address] INR 2.4 (Normal) PROTIME 26.0 s (Abnormal) Range: 11.7-14.9 02-Mar-20159:00 Prothrombin Time w/INR Comments: Test performed at:[facility] [address] [place] [address] INR 2.2 (Normal) PROTIME 24.3 s (Abnormal) Range: 11.7-14.9 :05 CBC W/Diff, Auto - EPLAB Comments: At [facility] Outpatient Center [facility] Medical Oncologypatients receive CBC w/auto Differential ONLY. Physicianwill place an order for a manual differential or Pathologistreview at his discretion. [facility] [place] OUT[facility]IENT [facility]. [address] [address] [place] [address] ACETONE RECOVERY WORKER: OMERO ZAMUDIO DO PH:[phone] performed at:[facility] Laborato [address] [place], [place] [address] Absolute Neut 3.7 {X10_3/uL} (Normal) Range: 2.0-7.7 [...] 4.2-5.4 WBC 5.4 K/mm3 (Normal) Range: 4.4-11.0 :05 Prothrombin Time w/INR Comments: Test performed at:[facility] [address] [place] [address] INR 2.5 (Normal) PROTIME 27.0 s (Abnormal) Range: 11.7-14.9 75-Emu-660183:35 Prothrombin Time w/INR Comments: Test performed at:[facility] [address] [place], [place] [address] INR 1.4 (Normal) PROTIME 17.4 s (Abnormal) Range: 11.7-14.9 81-Bya-607777:51 CBC W/Diff, Auto - EPLAB Comments: At [facility] Outpatient [facility] [place] Medical Oncologypatients receive CBC w/auto Differential ONLY. Physicianwill place an order for a manual differential or Pathologistreview at his discretion. [facility] [place] OUT[facility]IENT [facility]. [address] [address] [address] ACETONE RECOVERY WORKER: OMERO ZAMUDIO DO PH:[phone] performed at:[facility] Labor[address] [place] [address] Absolute Neut 4.0 {X10_3/uL} (Normal) Range: 2.0-7.7 [...] 4.2-5.4 WBC 5.6 K/mm3 (Normal) Range: 4.4-11.0 49-Kyw-744117:51 Magnesium Comments: RENAL, VITD25, MG PTHIN AND URINCE TO GO TO DR. Dupont performed at:[facility] [address] [place], [place] [address] MG 1.7 mg/dL (Abnormal) Range: 1.8-2.4 :51 Protein+Creatinine Ratio,Urine Comments: RENAL, VITD25, MG PTHIN AND URINCE TO GO TO DR. Dupont performed at:[facility] [address] [place] [address] PROT:CRE RATIO 304 {mg/g_CRE} (Abnormal) Range: 0-200 PROTEIN,UR.RAN. 48.2 mg/dL (Abnormal) UR CREAT 158.3 mg/dL (Normal) 88-Eks-870640:51 Prothrombin Time w/INR Comments: Test performed at:[facility] [address] [place] [address] INR 1.1 (Normal) PROTIME 14.2 s (Normal) Range: 11.7-14.9 :51 PTH,INTACT Comments: Test performed at:[facility] [address] [place] [address]( PTH,Intact 31 pg/mL (Normal) Range: 14-72 76-Suz-023935:51 Renal Profile Comments: RENAL, VITD25, MG PTHIN AND URINCE TO GO TO DR. Dupont performed at:[facility] [address] [place] [address] CO2 20.0 mmol/L (Abnormal) Range: 21.0-32.0 [...] 7-18 GLU 79 mg/dL (Normal) Range: 70-110 96-Ser-550973:51 Vitamin D,25 Hydroxy Comments: Test performed at:[facility] Hxmjtsvmbh[address] [facility] [place] [address] Vitamin D 25-OH 32.1 ng/mL (Normal) Comments: Vitamin D 25(OH) Status Range Deficiency <20 ng/mL (50nmol/L) Insuffciency 20 - 30 ng/mL (50 - 75 nmol/L) Sufficiency 30 - 100 ng/mL (75 - 250 nmol/L) Toxicity >100 ng/mL (>250 nmol/L) 22-Tmq-898196:00 Prothrombin Time w/INR Comments: Test performed at:[facility] [address] [place] [address] INR 2.5 (Normal) PROTIME 26.7 s (Abnormal) Range: 11.7-14.9 04-Qrp-370135:54 Serum Creatinine AND GFR Comments: Test performed at:[facility] [address] [place] [address] CREAT,SERUM 2.6 mg/dL (Abnormal) Range: 0.6-1.0 16-Gih-914660:47 D-Dimer Quantitative (DVT/PE) Comments: Test performed at:[facility] [address] [place] [address] D-DIMER QUANT 2.05 {FEU/ug/m} (Abnormal) Range: 0.27-0.49 Comments: D-Dimer ELEVATED (>0.49): Additional studies and clinicalassessments are indicated to conclude diagnosis of:Deep Vein Thrombosis (DVT) or Pulmonary Embolism (PE)CRITICAL VALUE REPEATED AND VERIFIED. CALLED TO [facility]'S OFFICE.01/14/15 1322 K[address].RESULTS READ BACK BY SAME. 90-Jxb-224053:20 Prothrombin Time w/INR Comments: Test performed at:[facility] [address] [place] [address] INR 2.6 (Normal) PROTIME 27.5 s (Abnormal) Range: 11.7-14.9 99-Qop-386891:25 CBC W/Diff, Auto - EPLAB Comments: At [facility] Outpatient [facility] [place], [facility] Medical Oncologypatients receive CBC w/auto Differential ONLY. Physicianwill place an order for a manual differential or Pathologistreview at his discretion. [facility] [facility]. [address] [address] [place] [address] ACETONE RECOVERY WORKER: OMERO ZAMUDIO DO PH:[phone] performed at:[place] [address] [place] [address] Absolute Neut 3.2 {X10_3/uL} (Normal) Range: 2.0-7.7 [...] 4.2-5.4 WBC 4.5 K/mm3 (Normal) Range: 4.4-11.0 30-Peh-492881:00 CBC W/Diff, Auto - EPLAB Comments: At [facility] Outpatient [facility] [place], [facility] Medical Oncologypatients receive CBC w/auto Differential ONLY. Physicianwill place an order for a manual differential or Pathologistreview at his discretion. [facility] [place] [facility]. [address] [address] [place] [address] ACETONE RECOVERY WORKER: OMERO ZAMUDIO DO PH:[phone] performed at:[facility] [address] [place] [address] Absolute Neut 4.4 {X10_3/uL} (Normal) [...] 4.2-5.4 WBC 5.8 K/mm3 (Normal) Range: 4.4-11.0 35-Sgs-932317:00 Prothrombin Time w/INR Comments: Test performed at:[facility] [address] [place] [address] INR 2.8 (Normal) PROTIME 29.7 s (Abnormal) Range: 11.7-14.9 9-Ooz-088474:10 CBC W/Diff, Auto - EPLAB Only Comments: At [facility] Outpatient [facility] [place] Medical Oncologypatients receive CBC w/auto Differential ONLY. Physicianwill place an order for a manual differential or Pathologistreview at his discretion. [facility] OUTPATIENT [facility]. [address] [address] [address] ACETONE RECOVERY WORKER: OMERO ZAMUDIO DO PH:[phone] performed at:[facility] [address] [place] [address] Absolute Neut 2.8 {X10_3/uL} (Normal) [...] 4.2-5.4 WBC 4.4 K/mm3 (Normal) Range: 4.4-11.0 73-Pip-619509:35 CBC W/Diff, Auto - EPLAB Comments: At [facility] Outpatient [facility], [facility] Care patientsreceive CBC w/auto Differential ONLY. Physician will placean order for a manual differential or Pathologist review athis discretion. [facility]. [address] [address] [place] [address] ACETONE RECOVERY WORKER: OMERO ZAMUDIO DO PH:[phone] performed at:[facility] [address] [address] Absolute Neut 3.5 {X10_3/uL} (Normal) Range: 2.0-7.7 [...] 4.2-5.4 WBC 5.1 K/mm3 (Normal) Range: 4.4-11.0 31-Zlb-561046:35 Comprehensive Metabolic Profil Comments: PLEASE SEND COPY OF LIPID, CMP,TSH TO DR Prieto Specimen #1, #2 or #3? 1Test performed at:[facility] [address] [place] [address] GAP 12 (Normal) Range: 5-15 CO2 19.0 [...] <126 mg/dLsuggests IMPAIRED HOMEOSTASIS per A.D.A. criteria. :35 LDH 222 U/L (Normal) Comments: PLEASE SEND COPY OF LIPID, CMP,TSH TO DR Prieto Specimen #1, #2 or #3? 1Test performed at:[facility] [address] [place] [address] Range: 87-241 55-Gpt-000010:35 Lipid Profile Comments: PLEASE SEND COPY OF LIPID, CMP,TSH TO DR Prieto Specimen #1, #2 or #3? 1Test performed at:[facility] [address] [place] [address] VLDL 42 mg/dL (Abnormal) Range: 5-40 LDL [...] 200-240 mg/dL Borderline >240 mg/dL High Risk :35 Prothrombin Time w/INR Comments: Test performed at:[facility] [address] [place] [address] INR 2.3 (Normal) PROTIME 25.4 s (Abnormal) Range: 11.7-14.9 40-Hlq-805420:35 Thyroid Stim Hormone (TSH) Comments: PLEASE SEND COPY OF LIPID, CMP,TSH TO DR Prieto Specimen #1, #2 or #3? 1Test performed at:[facility] [address] [place] [address] TSH 2.09 {uIU/mL} (Normal) Range: 0.358-3.74 18-Ykr-770986:35 Uric Acid Comments: PLEASE SEND COPY OF LIPID, CMP,TSH TO DR Prieto Specimen #1, #2 or #3? 1Test performed at:[facility] [address] [place] [address] URIC 6.5 mg/dL (Abnormal) Range: 2.6-6.0 80-Dsk-097534:10 Prothrombin Time w/INR Comments: Test performed at:[facility] [address] [place] [address] INR 2.8 (Normal) PROTIME 29.0 s (Abnormal) Range: 11.7-14.9 9-Crs-099131:35 Prothrombin Time w/INR Comments: Test performed at:[facility] [address] [place] [address] INR 2.9 (Normal) PROTIME 30.5 s (Abnormal) Range: 11.7-14.9 13-Sfr-425564:15 Prothrombin Time w/INR Comments: Test performed at:[facility] [address] [place] [address] INR 1.9 (Normal) PROTIME 21.4 s (Abnormal) Range: 11.7-14.9 17-Lwz-968107:45 Prothrombin Time w/INR Comments: Test performed at:[facility] [address] [place] [address] INR 4.6 (Abnormal) Comments: RESULTS CALLED TO AMOR STANTON 10/22/14 Vilma Vidal.REPORT READ BACK BY SAME. PROTIME 42.9 s (Abnormal) Range: 11.7-14.9 10-Suc-278721:30 CBC W/Diff, Auto - EPLAB Comments: [facility] Outpatient [facility] Cancer Care patientsreceive CBC w/auto Differential ONLY. Physician will placean order for a manual differential or Pathologist review athis discretion. Only [facility] OUTPATIENT [facility]. [address] [place] [id number] ACETONE RECOVERY WORKER: OMERO ZAMUDIO DO PH:[phone] performed at:[facility] [address] [place], [place] [address] Absolute Neut 3.9 {X10_3/uL} (Normal) Range: 2.0-7.7 [...] 4.2-5.4 WBC 5.8 K/mm3 (Normal) Range: 4.4-11.0 56-Luw-219019:30 Magnesium Comments: Test performed at:[facility] [address] [place] [address] MG 1.6 mg/dL (Abnormal) Range: 1.8-2.4 32-Gpm-011136:30 Protein+Creatinine Ratio,Urine Comments: Test performed at:[facility] [address] [place] [address] PROT:CRE RATIO 498 {mg/g_CRE} (Abnormal) Range: 0-200 PROTEIN,UR.RAN. 67.7 mg/dL (Abnormal) UR CREAT 135.7 mg/dL (Normal) 63-Hus-170336:30 Prothrombin Time w/INR Comments: Test performed at:[facility] [address] [place] [address] INR 2.9 (Normal) PROTIME 30.0 s (Abnormal) Range: 11.7-14.9 12-Yra-821449:30 PTH,INTACT Comments: Test performed at:[facility] [address] [place] [address] PTH,Intact 63 pg/mL (Normal) Range: 14-72 66-Iam-732530:30 Renal Profile Comments: Test performed at:[facility] [address] [place] [address] CO2 20.0 mmol/L (Abnormal) Range: 21.0-32.0 [...] 7-18 GLU 83 mg/dL (Normal) Range: 70-110 86-Mcx-970383:30 Vitamin D,25 Hydroxy Comments: Test performed at:[facility] [address] [place] [address] Vitamin D 25-OH 36.5 ng/mL (Normal) Comments: Vitamin D 25(OH) Status Range Deficiency <20 ng/mL (50nmol/L) Insuffciency 20 - 30 ng/mL (50 - 75 nmol/L) Sufficiency 30 - 100 ng/mL (75 - 250 nmol/L) Toxicity >100 ng/mL (>250 nmol/L) 05-Lkg-469010:27 Prothrombin Time w/INR Comments: Test performed at:[facility] [address] [place] [address] INR 2.8 (Normal) PROTIME 29.0 s (Abnormal) Range: 11.7-14.9 85-Jsl-647656:55 Prothrombin Time w/INR Comments: Test performed at:[facility] [address] [place] [address] INR 2.4 (Normal) PROTIME 26.4 s (Abnormal) Range: 11.7-14.9 95-Jwb-690373:05 CBC W/Diff, Auto - EPLAB Comments: At [facility] Outpatient [facility] Cancer Care patientsreceive CBC w/auto Differential ONLY. Physician will placean order for a manual differential or Pathologist review athis discretion. [facility] OUTPATIENT [facility]. [address] [address] [address] ACETONE RECOVERY WORKER: OMERO ZAMUDIO DO PH:[phone] performed at:[facility] [address] [place] [address] Absolute Neut 3.2 {X10_3/uL} (Normal) [...] 4.2-5.4 WBC 4.9 K/mm3 (Normal) Range: 4.4-11.0 94-Ygm-749770:05 Prothrombin Time w/INR Comments: Test performed at:[facility] [address] [place] [address] INR 1.7 (Normal) PROTIME 20.2 s (Abnormal) Range: 11.7-14.9 53-Qxk-982743:50 Prothrombin Time w/INR Comments: Test performed at:[facility] [address] [place] [address] INR 2.6 (Normal) PROTIME 28.1 s (Abnormal) Range: 11.7-14.9 62-Vdg-079357:25 FECAL OCCULT HGB ASSAY- tubes sent home (25232) FECAL OCCULT HGB ASSAY, QUAL, 1-3 SIMULTANEOU negative (Normal) 56-Kag-288190:07 CALCIFIDIOL (29211) VIT D 25 Comments: PATIENT WAS FASTINGPERFORMED BY: [employer] RoadBitPayblin [place] [id number] Vitamin D, 25-Hydroxy 37.0 ng/mL (Normal) Range: 30.0-100.0 Comments: Vitamin D deficiency has been defined by the [place] of[facility] and an Endocrine Society practice guideline as alevel of serum 25-OH vitamin D less than 20 ng/mL (1,2).The Endocrine Society went on to further define vitamin Dinsufficiency as a level between 21 and 29 ng/mL (2).1. IOM ([place] of Medicine). 2010. Dietary reference intakes for calcium and D. [place]: The National Academies Press.2. Lluvia MF, Wade WING, Tanner VENEGAS, et al. Evaluation, treatment, and prevention of vitamin D deficiency: an Endocrine Society clinical practice guideline. JCEM. 2010; 96(7):1911-30. 64-Dgr-066298:07 VITAMIN B-12 (CYANOCOBALAMIN) Comments: PATIENT WAS FASTINGPERFORMED BY: [facility] Fpldpx[address] [facility] HospitalDublin [place] [id number] ([address]) Vitamin B12 637 pg/mL (Normal) Range: 211-946 06-Pav-555543:07 TSH (02987) Comments: PATIENT WAS FASTINGPERFORMED BY: [facility] Oswqql[address]87 Paiz RoadDublin [place] [id number] TSH 0.778 {uIU/mL} (Normal) Range: 0.450-4.500 45-Tnp-064067:07 METABOLIC PANEL, COMPREHENSIVE Comments: PATIENT WAS FASTINGPERFORMED BY: [facility] Ykbnoq1483 [facility] [id number] (42005) ALT (SGPT) 31 [iU]/L (Normal) Range: 0-32 [...] Glucose, Serum 81 mg/dL (Normal) Range: 65-99 11-Ftt-281729:07 LIPID PANEL (42906) Comments: PATIENT WAS FASTINGPERFORMED BY: [facility] Gqdmiw4401 [facility] [id number] LDL/HDL Ratio 0.9 {ratio_units} (Normal) Range: 0.0-3.2 [...] Cholesterol, Total 193 mg/dL (Normal) Range: 100-199 13-Tqb-278061:07 CBC W/AUTO DIFF WBC Comments: PATIENT WAS FASTINGPERFORMED BY: [facility]Zttvpx0296 [facility] [id number] Information: [id number] (74040) Immature Grans (Abs) 0.0 {x10E3/uL} (Normal) Range: [...] 3.77-5.28 WBC 7.0 {x10E3/uL} (Normal) Range: 3.4-10.8 :55 ECBCD Comments: At [facility] Outpatient [facility] Care patientsreceive CBC w/auto Differential ONLY. Physician will placean order for a manual differential or Pathologist review athis gilda.[facility] [place], [place] [address]IZN DIRECTOR: OMERO ZAMUDIO DO PH:[phone] ANC 4.0 {X10_3/uL} (Normal) Range: 2.0-7.7 B% [...] 41.6/INR 3.[address] DELEON OFFICE X4 [facility]. WILL TRY AGAIN INR 3.0 (Normal) PTP 30.9 s (Abnormal) Range: 11.7-14.9 49-Vvs-775834:45 IINR 3.70 (Abnormal) Comments: Critical Value> 3.5 :45 IPTF 41.6 {SEC} (Abnormal) Range: 11.9-14.4 Comments: Reference Range11.9 - 14.4 :45 ECBCD Comments: At [facility] patientsreceive CBC w/auto Differential ONLY. Physician will placean order for a manual differential or Pathologist review athis discretion.[facility].[address] [place], [place] [address]RBG DIRECTOR: OMERO ZAMUDIO DO PH:[phone] ANC 5.0 {X10_3/uL} (Normal) Range: 2.0-7.7 B% [...] 4.2-5.4 WBC 6.1 K/mm3 (Normal) Range: 4.4-11.0 :55 ECBCD Comments: At [facility] patientsreceive CBC w/auto Differential ONLY. Physician will placean order for a manual differential or Pathologist review athis discretion.[facility].[address] [place], [place] [address]GES DIRECTOR: OMERO ROBB PH:[phone] ANC 4.0 {X10_3/uL} (Normal) Range: 2.0-7.7 B% [...] :12 LDH 239 U/L (Normal) Range: 87-241 75-Shb-250032:12 PT INR 2.0 (Normal) PTP 22.3 s (Abnormal) Range: 11.7-14.9 :12 URIC 5.5 mg/dL (Normal) Range: 2.6-6.0 7-Rip-255319:25 PT INR 1.8 (Normal) PTP 21.1 s (Abnormal) Range: 11.7-14.9 :55 ECBCD Comments: At [facility] Outpatient [facility] patientsreceive CBC w/auto Differential ONLY. Physician will placean order for a manual differential or Pathologist review athis discretion.[facility].[address] [place], [place] [address]WCW DIRECTOR: OMERO ZAMUDIO DO PH:[phone] ANC 3.7 {X10_3/uL} (Normal) Range: 2.0-7.7 B% [...] 4.2-5.4 WBC 5.1 K/mm3 (Normal) Range: 4.4-11.0 :55 PT INR 1.9 (Normal) PTP 21.4 s (Abnormal) Range: 11.7-14.9 14-Oyn-366918:30 ECBCD Comments: At [facility] patientsreceive CBC w/auto Differential ONLY. Physician will placean order for a manual differential or Pathologist review prem vo.[facility].[address] [place], [place] [address]GSL DIRECTOR: OMERO ZAMUDIO DO PH:[phone] ANC 2.6 {X10_3/uL} (Normal) Range: 2.0-7.7 B% [...] (Normal) PTP 19.5 s (Abnormal) Range: 11.7-14.9 45-Hpe-142672:05 CMP Comments: DR. PARRA ORDERED CBCD, CMP, [...] 7-18 GLU 81 mg/dL (Normal) Range: 70-110 30-Oat-146165:05 ECBCD ANC 3.0 {X10_3/uL} (Normal) Range: 2.0-7.7 [...] 30.9 mg/dL (Abnormal) CREU 90.2 mg/dL (Normal) :05 PTHIN 77 pg/mL (Abnormal) Range: 14-72 :05 URIC 5.7 mg/dL (Normal) Comments: DR. PARRA [...] ng/mL (>250 nmol/L) :33 ECBCD Comments: At [facility], Dr Guerra patients receiveCBC w/auto Differential ONLY. He will place an order for amanual differential or Pathologist review at his discretion.[facility].[address] [place], [place] [address]OHA DIRECTOR: OMERO ZAMUDIO DO PH:[phone] ANC 4.4 {X10_3/uL} (Normal) Range: 2.0-7.7 B% [...] Comments: Please note revised PROTIME reference range kogveahee91/14/15. :30 CUUR URC See Note (Normal) Comments: ORGANISM [...] UCLAR Sl. Cloudy (Normal) UCOL Yellow (Normal) 05-Esk-452577:31 PT INR 2.6 (Normal) PTP 26.0 s (Abnormal) Range: 11.9-14.4 4-Nah-886421:26 UNILAT LT DIAG DIGITAL & CAD Radiology [...] [facility]. Approximately 10% of breast cancers are not detected by mammography. Anormal mammogram should not delay biopsy of a cl inically suspiciousabnormality. Signed:Vishal Mendez M.D.March 08, 2013 at 2:10:47 PM [id number] Signed GP/GP If you are the referring physician and would like to consult with t heradiologist who provided this interpretation, please contact Varun Jeronimo at [phone]. If this radiologist is unavailable, youwill be directed to another radiologist to assist. If you a re a patient with a question regarding this report, pleasecontactyour referring physician directly. Professional Interpretation Provided By: Referrizer, Phone , These docu ments contain legally [...] destructionofthese documents. Dictated on 03/08/13 1410 by Andrea MARLOW,Elenaranscribed on 03/08/13 1414 by ITS IMPORTSign by Vishal Mendez MD on 03/08/13 1415 Sign by: Vishal Mendez MD 5-Fyx-608436:01 BREAST UNILATERAL Radiology See Note Comments: PROCEDURE: [...] Mendez M.D.March 08, 2013 at 2:13:37 PM [phone] Signed GP/GP If you are the referring physician and would like to consult with theradiologist who provided this interpretation, please contact Jo stack M.D. at [phone]. If this radiologist is unavailable, youwill be directed to another radiologist to assist. If you are a patient with a question regarding this report, pleasecontactyour referri ng physician directly. Professional Interpretation Provided By: Referrizer, Phone , These documents contain legally protected [...] destructionofthese documents. Dictated on 03/08/13 1413 by Afshin Mendez MDscribed on 03/08/131416 by ITS IMPORTSign by Vishal Mendez MD on 03/08/13 1418 Sign by: Vishal Mendez MD 3-Lwr-263033:02 BIL SCRN DIGITAL & CAD Radiology Report See [...] [facility]. Approximately 10% of breast cancers are not detected by mammography. Anormal mammogram sh ould not delay biopsy of a clinically suspiciousabnormality. Signed:Vishal Mendez M.D.March 01, 2013 at 12:50:31 PM [id number] Signed GP/GP If you are the referring physician an d would like to consult with theradiologist who provided this interpretation, please contact Varun Jeronimo at [phone]. If this radiologist is unavailable, youwill be directed to another r adiologist to assist. If you are a patient with a question regarding this report, pleasecontactyour referring physician directly. Professional Interpretation Provided By: Referrizer, Phone [phone], These documents contain legally protected and confidential [...] 12 58 Sign by: Vishal Mendez MD 43-Rfm-811765:38 FECAL OCCULT- Tubes sent home (55165) FECAL OCCULT HGB ASSAY, QUAL, 1-3 SIMULTANEOU negative (Normal) 35-Nyb-377698:33 CHEST PA AND LATERAL Radiology Report See [...] Chandler M.D.November 13, 2012 at 7:05:21 PM [phone] Signed SH/SH If you are the referring physician and would like to consult with theradiologist who provided this interpretation, please contact Varun Garcia at [phone]. If this radiologist is unavailable, youwillbe directed to another radiologist to assist. If you are a patient with a q uestion regarding this report, pleasecontactyour referring physician directly. Professional Interpretation Provided By: Referrizer, Phone , These documents contain legally protected [...] MDTranscribed on 11/13/121906 by ITS IMPORTSign by Marshall Chandler MD on 11/13/121907 Sign by: Marshall Chandler MD 40-Lfx-441402:40 ANURAG CULTURE-OTHER (02033) Comments: PATIENT NOT FASTINGPERFORMED BY: MymCartCo Srhfea4230 [facility] [id number] Information: SRC: THROAT Result 1 RRF (Normal) Comments: Routine respiratory raegan Upper Respiratory Culture Final report (Normal) 07-Pcg-18050:48 Rapid Strep Test, Office (30514) Rapid Strep Test, Office Negative (Normal) 04-Apr-20128:05 Urinalysis, Office (53446) UA - BILIRUBIN Negative (Normal) UA - BLOOD Non Hemolyzed Moderate (Normal) UA - GLUCOSE Negative (Normal) UA - KETONES Negative mg/dL (Normal) UA - LEUKOCYTE ESTERASE Large (Normal) UA - NITRITE Negative (Normal) UA - PH 6.0 (Normal) UA - PROTEIN 300 mg/dL (Normal) UA - SPECIFIC GRAVITY 1.025 (Normal) URINE UROBILINGN TYSON TIMED Normal mg/dL (Normal) 68-Zlf-899383:40 PT (PROTHROMBIN TIME) Comments: PATIENT NOT FASTINGPERFORMED BY: [facility]Uhlqul1878 [facility] [id number] Information: [id number] (00807) Prothrombin Time 13.4 {sec} (Abnormal) Range: 8.7-11.5 [...] PROTIME ISTAT 12.3 {SEC} (Normal) Range: 11.9-14.4 :00 CHEST,1 VIEW (PORTABLE) Radiology Report See Note [...] 06/14/11 0640 Sign by: Ezequiel Bradley MD :05 CBCD,SMEAR DIFF RED CELL MORPH SeeNote {NORMAL} [...] 64.1 mg/L Comments: PATIENT WAS FASTINGPERFORMED BY: Surface TensionLos Alamos Medical CenterTcxyvu5394 [facility] [id number] 1112:16 Protein, Quant (Abnormal) Range: 0.0-4.9 96-Bwy-664322:16 CBC With Differential/Platelet Comments: PATIENT WAS FASTINGPERFORMED BY: [employer] Ybyhou4352 Paiz [facility] [id number] Immature Grans (Abs) 0.0 {x10E3/uL} (Normal) Range: [...] 3.80-5.10 WBC 5.3 {x10E3/uL} (Normal) Range: 4.0-10.5 61-Iou-158182:16 Comp. Metabolic Panel (14) Comments: PATIENT WAS FASTINGPERFORMED BY: [facility]Ufzjjs8377 [facility] [id number] ALT (SGPT) 12 [iU]/L (Normal) Range: 0-40 [...] 341 [iU]/L Comments: PATIENT WAS FASTINGPERFORMED BY: Leetchi Doqhop4625 [facility] [id number] :16 (Abnormal) Range: 0-214 73-Bts-930759:16 LDL Cholesterol (Direct) Comments: PATIENT WAS FASTINGPERFORMED BY: LeetchiLos Alamos Medical CenterHvuiun7266 [facility] [id number] LDL Chol. (Direct) 80 mg/dL (Normal) Range: 0-99 Sedimentation 30 mm/h (Normal) Comments: PATIENT WAS FASTINGPERFORMED BY: LeetchiLos Alamos Medical CenterUhvipj5564 [facility] [id number] 2:16 Rate-Westergren Range: 0-56 Written Authorization WAR (Normal) Comments: PATIENT WAS FASTINGPERFORMED BY: [facility]Jeff[facility])Xpuqpx7281 [facility] [id number] 2:16 Comments: Written Authorization Received.Authorization received from original requisition [id number] by Matthew Moore [place] 9.2 mg/dL (Normal) Range: 8.5-10.1 :25 [place]IZED [place] 4804 5.5 mg/dL (Normal) Range: 4.5-5.6 :25 Comments: Performed at: - [facility] [id number] Director: Silke Mccrary MD, Phone: [phone] 14-Fjy-481325:16 PT (PROTHROMBIN TIME) Comments: PATIENT NOT FASTINGPERFORMED BY: [facility] [id number] Information: [id number] (34150) Prothrombin Time 27.6 {sec} (Abnormal) Range: 8.7-11.5 INR 2.6 (Abnormal) Range: 0.8-1.2 Comments: Reference interval is for non-anticoagulated patients. . Suggested INR therapeutic range for Vitamin K anta gonist therapy: Standard Dose (moderate intensity therapeutic range): 2.0 - 3.0 Higher intensity therapeutic range 2.5 - 3.5 84-Vfc-509126:15 COMP METABOLIC GAP 7 (Normal) Range: 5-15 [...] 7-18 GLU 88 mg/dL (Normal) Range: 70-110 93-Ncz-19511:00 BRAIN W/WO CONTRAST Radiology Report See Note [...] on 03/17/112048 Sign by: ELLIOTT MCKENNA MD 21-God-492755:03 PT (Prothrobim Time) Comments: PATIENT NOT FASTINGPERFORMED BY: LabSouthwest [facility] Center6370 [facility] [id number] Information: [id number] (20991) Prothrombin Time 12.2 {sec} (Abnormal) Range: 8.7-11.5 INR 1.2 (Normal) Range: 0.8-1.2 Comments: Reference interval is for non-anticoagulated patients. . Suggested INR therapeutic range for Vitamin K anta gonist therapy: Standard Dose (moderate intensity therapeutic range): 2.0 - 3.0 Higher intensity therapeutic range 2.5 - 3.5 22-Zml-38557:55 DEXA BONE DENSITY STUDY () Radiology Report See Note (Normal) Comments: PROCEDURE: [...] Foundation [email or web address] Dictated on 02/10/11 1013 by Elena Mendez MDranscribed on 02/10/111116 by ITS IMPORTSign by Vishal Mendez MD on 02/10/111116 Sign by: Vishal Mendez MD :51 Vitamin D Hydroxy (32570) Comments: PATIENT WAS FASTINGPERFORMED BY: CloudBeds6370 ResultlyAt[facility] [id number] Vitamin D, 25-Hydroxy 35.7 ng/mL (Normal) Range: 32.0-100.0 Comments: Recent studies consider the lower limit of 32.0 ng/mL to be athreshold for optimal health.Sameer KRISHNA. J Nutr. 2004;135(2):317-22. :51 MICROALBUMIN: CREATININE RATIO Comments: PATIENT WAS FASTINGPERFORMED BY: CloudBeds6370 ResultlyAtrium Health [facility] City [id number] (71255) AND (17626) Creatinine, Urine 205.5 mg/dL (Normal) Range: 15.0-278.0 Microalb/Creat Ratio 6.2 {mg/g_creat} (Normal) Range: 0.0-30.0 Microalbumin, Urine 12.8 ug/mL (Normal) Range: 0.0-17.0 :51 METABOLIC PANEL, COMPREHENSIVE Comments: PATIENT WAS FASTINGPERFORMED BY: CloudBeds6370 Resultlyin [place] [id number] (45854) Alkaline Phosphatase, S 54 [iU]/L (Normal) Range: [...] Glucose, Serum 88 mg/dL (Normal) Range: 65-99 :51 CBC WITH MANUAL DIFF (61116) Comments: PATIENT WAS FASTINGPERFORMED BY: LabCo Anvamj8932 [facility] [id number] Baso (Absolute) 0.0 {x10E3/uL} (Normal) Range: 0.0-0.2 [...] 5.0 {x10E3/uL} (Normal) Range: 4.0-10.5 :51 TSH (55894) Comments: PATIENT WAS FASTINGPERFORMED BY: [facility] [facility] Tjfqzx9796 [facility] [id number] TSH 1.320 {uIU/mL} (Normal) Range: 0.450-4.500 :51 LIPID PANEL (70552) Comments: PATIENT WAS FASTINGPERFORMED BY: [employer] LabCoBeep [facility] [id number] HDL Cholesterol 51 mg/dL (Normal) Comments: According to ATP-III Guidelines, HDL-C >59 mg/dL is considered anegative risk factor for CHD. LDL Cholesterol Calc 60 mg/dL (Normal) Range: 0-99 LDL/HDL Ratio 1.2 {ratio_units} (Normal) Range: 0.0-3.2 VLDL Cholesterol Richard 32 mg/dL (Normal) Range: 5-40 Cholesterol, Total 143 mg/dL (Normal) Range: 100-199 Triglycerides 161 mg/dL (Abnormal) Range: 0-149 02-Hyc-358708:23 PT (Prothrobim Time) (93481) Comments: INR; PATIENT NOT FASTINGPERFORMED BY: NUVIA LeetchiJefferson Washington [facility])Gqrphd4404 [facility] [id number] Prothrombin Time 28.6 {sec} (Abnormal) Range: 8.7-11.5 INR 2.7 (Abnormal) Range: 0.8-1.2 Comments: Reference interval is for non-anticoagulated patients. . Suggested INR therapeutic range for Vitamin K anta gonist therapy: Standard Dose (moderate intensity therapeutic range): 2.0 - 3.0 Higher intensity therapeutic range 2.5 - 3.5 33-Mol-319219:30 PT (PROTHROMBIN TIME) Comments: PATIENT NOT FASTINGPERFORMED BY: [facility] HospitalCaptonJefferson [facility])Jhoyey9547 [facility] [id number] Information: [id number] (02152) Prothrombin Time 19.9 {sec} (Abnormal) Range: 8.7-11.5 INR 1.9 (Abnormal) Range: 0.8-1.2 Comments: Reference interval is for non-anticoagulated patients. . Suggested INR therapeutic range for Vitamin K anta gonist therapy: Standard Dose (moderate intensity therapeutic range): 2.0 - 3.0 Higher intensity therapeutic range 2.5 - 3.5 50-Rtz-066994:19 Prothrombin Time (PT) Comments: PERFORMED BY: NUVIA [facility]6370 [facility] [id number] Prothrombin Time 26.5 {sec} (Abnormal) Range: 8.7-11.5 INR 2.5 (Abnormal) Range: 0.8-1.2 Comments: Reference interval is for non-anticoagulated patients. . Suggested INR therapeutic range for Vitamin K anta gonist therapy: Standard Dose (moderate intensity therapeutic range): 2.0 - 3.0 Higher intensity therapeutic range 2.5 - 3.5 37-Rxw-053755:22 Prothrombin Time (PT) Comments: PERFORMED BY: [facility]6370 [facility] [id number] Prothrombin Time 12.9 {sec} (Abnormal) Range: 8.7-11.5 INR 1.2 (Normal) Range: 0.8-1.2 Comments: Reference interval is for non-anticoagulated patients. . Suggested INR therapeutic range for Vitamin K anta gonist therapy: Standard Dose (moderate intensity therapeutic range): 2.0 - 3.0 Higher intensity therapeutic range 2.5 - 3.5 7-Wwf-922026:28 Prothrombin Time (PT) Comments: PERFORMED BY: [facility]6370 [facility] [id number] Prothrombin Time 13.8 {sec} (Abnormal) Range: 8.7-11.5 INR 1.3 (Abnormal) Range: 0.8-1.2 Comments: Reference interval is for non-anticoagulated patients. . Suggested INR therapeutic range for Vitamin K anta gonist therapy: Standard Dose (moderate intensity therapeutic range): 2.0 - 3.0 Higher intensity therapeutic range 2.5 - 3.5 25-Ltb-283994:45 Prothrombin Time (PT) Comments: PERFORMED BY: [facility]6370 [facility] [id number] Prothrombin Time 17.9 {sec} (Abnormal) Range: 8.7-11.5 INR 1.7 (Abnormal) Range: 0.8-1.2 Comments: Reference interval is for non-anticoagulated patients. . Suggested INR therapeutic range for Vitamin K anta gonist therapy: Standard Dose (moderate intensity therapeutic range): 2.0 - 3.0 Higher intensity therapeutic range 2.5 - 3.5 91-Ppz-51164:00 UPPER EXT/NO JT/W/O Radiology Report See Note (Normal) Comments: CLINICAL:73 year old female with a bulge in the deltoid area. No known injury.Painful when reaching up. MRI UPPER EXTREMITY LEFT HUMERUS TECHNIQUE:Standardized fat and water weighted pulse sequences we re obtained in zmz8bbfyyptwhh planes. A skin marker was placed in [...] tissue mass or bony lesion. Dictated on 07/12/10752 by Brayden GerardoTranscribed on 07/12/10752 by Jazmin TOUSSAINT by Brayden Gerardo on [...] on 07/12/10 0911 Sign by: Mukund Aguilera :00 L/S SPINE,MIN 4 VIEWS Radiology Report See Note (Normal) Comments: CLINICAL:Pain. X-RAY EXAMINATION: LUMBAR SPINE TECHNIQUE:Five views (AP, Lateral, oblique and coned down lumbosacral) of thelumbarsmadison. COMPARISON:None. FINDINGS:There is generalized osteopenia. The re is no acute fracture ordislocation. There is normal alignment and lordosis. There iscalcification of the aorta and iliac arteries. There is mild narrowingatL5 -- S1. IMPRESSION:Osteopenia and dege nerative disease, no fracture. Left lower quadrant ostomy noted. Dictated on 07/09/10 1235 by Mukund AguileraTranscribed on 07/09/10 1235 by Jazmin TOUSSAINT by Mukund Aguilera on 07/12/10910 Sign by: Mukund Aguilera :00 PELVIS,1 OR 2 VIEWS Radiology Report See Note (Normal) Comments: CLINICAL:Pain. X-RAY EXAMINATION: PELVIS TECHNIQUE:Single AP view.COMPARISON:None. FINDINGS:Mild osteopenia. Mild degenerative change lower lumbar spine and hips.Left lower quadrant ostomy is noted. M oderate stool in the rectum. Noacute pathology. IMPRESSION:No acute pathology. Dictated on 07/09/10 123 by Mukund AguileraTranscribed on 07/09/10 1236 by Jazmin TOUSSAINT by Dianne Aguilera on 07/12/10910 Sign by: Mukund Aguilera 3-Emt-463906:33 Prothrombin Time (PT) Comments: PERFORMED BY: [employer]-Divers[employer] Your[employer] Paiz Eleven JamesAt[facility] [id number] Prothrombin Time 24.6 {sec} (Abnormal) Range: 8.7-11.5 INR 2.3 (Abnormal) Range: 0.8-1.2 Comments: Reference interval is for non-anticoagulated patients. . Suggested INR therapeutic range for Vitamin K anta gonist therapy: Standard Dose (moderate intensity therapeutic range): 2.0 - 3.0 Higher intensity therapeutic range 2.5 - 3.5 :36 Prothrombin Time (PT) Comments: PERFORMED BY: SpontaneouslyAtrium Health [facility] [id number] Prothrombin Time 34.1 {sec} (Abnormal) Range: 8.7-11.5 INR 3.2 (Abnormal) Range: 0.8-1.2 Comments: Reference interval is for non-anticoagulated patients..Suggested INR therapeutic range for Vitamin Kantagonist therapy:Standard Dose (moderate intensitytherapeutic range): 2.0 - 3.0Higher intensity therapeutic range 2.5 - 3.5 3-Ihy-790282:03 Prothrombin Time (PT) Comments: PERFORMED BY: [employer] [facility] [id number] Prothrombin Time 29.1 {sec} (Abnormal) Range: 8.7-11.5 INR 2.7 (Abnormal) Range: 0.8-1.2 Comments: Reference interval is for non-anticoagulated patients..Suggested INR therapeutic range for Vitamin Kantagonist therapy:Standard Dose (moderate intensitytherapeutic range): 2.0 - 3.0Higher intensity therapeutic range 2.5 - 3.5 13-Vhl-747353:59 Prothrombin Time (PT) Comments: PERFORMED BY: [employer]70 [facility] [id number] INR 1.8 (Abnormal) Range: 0.8-1.2 Comments: Reference interval is for non-anticoagulated patients..Suggested INR therapeutic range for Vitamin Kantagonist therapy:Standard Dose (moderate intensitytherapeutic range): 2.0 - 3.0Higher intensity therapeutic range 2.5 - 3.5 Prothrombin Time 18.9 {sec} Range: 8.7-11.5 (Abnormal) 30-Mar-2010 Triiodothyronine,Free, 2.3 pg/mL (Normal) Comments: PERFORMED BY: Leetchi Fgogrs1601 [facility] [id number] 10:59 Serum Range: 2.0-4.4 60-Bfv-197696:59 TSH+Free T4 Comments: PERFORMED BY: [employer] [facility] [id number] T4,Free(Direct) 1.31 ng/dL (Normal) Range: 0.82-1.77 TSH 2.940 {uIU/mL} (Normal) Range: 0.450-4.500 :04 Prothrombin Time (PT) Comments: PERFORMED BY: NUVIA LeetchiLos Alamos Medical CenterHvoype7674 [facility] [id number] Prothrombin Time 15.6 {sec} (Abnormal) Range: 8.7-11.5 INR 1.5 (Abnormal) Range: 0.8-1.2 Comments: Reference interval is for non-anticoagulated patients..Suggested INR therapeutic range for Vitamin Kantagonist therapy:Standard Dose (moderate intensitytherapeutic range): 2.0 - 3.0Higher intensity therapeutic range 2.5 - 3.5 18-Tzb-456563:38 Prothrombin Time (PT) Comments: PERFORMED BY: NUVIA LeetchiLos Alamos Medical CenterYwahws9031 [facility] [id number] Prothrombin Time 20.2 {sec} (Abnormal) Range: 8.7-11.5 INR 2.0 (Abnormal) Range: 0.8-1.2 Comments: Reference interval is for non-anticoagulated patients..Suggested INR therapeutic range for Vitamin Kantagonist therapy:Standard Dose (moderate intensitytherapeutic range): 2.0 - 3.0Higher intensity therapeutic range 2.5 - 3.5 5-Yuj-895532:03 Microscopic Examination Comments: PATIENT WAS FASTINGPERFORMED BY: NUVIA [facility]6370 [facility] [id number] Bacteria None seen (Normal) Epithelial Cells (non renal) 0-10 {/hpf} (Normal) Range: 0 - 10 Mucus Threads Present (Normal) RBC 11-30 {/hpf} (Abnormal) Range: 0 - 3 WBC >30 {/hpf} (Abnormal) Range: 0 - 5 :03 NMR LipoProfile Comments: PATIENT WAS FASTINGPERFORMED BY: [employer] [address] [id number] BY: [facility]6370 [facility] [id number] Information: [id number] HDL Size 8.8 nm (Abnormal) Comments: Small [...] 19.0 INSULIN RESISTANCE / DIABETES RISK Je GIPSON<--Insulin Sensitive Insulin Resistant-->Percentile in Reference PopulationLarge VLDL-P [...] Comments: PATIENT WAS FASTINGPERFORMED BY: Ana [employer] Jkc2744 [facility] [id number] BY: NUVIA Leetchi Cxfyzd8482 [facility] [id number] :03 Comments: Written Authorization Received.Authorization received from TEMI MAYNARD 82-44-1020Mvvpne by Sen Rose 0-Gup-611188:32 Prothrombin Time (PT) Comments: PERFORMED BY: NUVIA Leetchi Nbgtdu2196 [facility] [id number] Prothrombin Time 26.6 {sec} (Abnormal) Range: 8.7-11.5 INR 2.7 (Abnormal) Range: 0.8-1.2 Comments: Reference interval is for non-anticoagulated patients..Suggested INR therapeutic range for Vitamin Kantagonist therapy:Standard Dose (moderate intensitytherapeutic range): 2.0 - 3.0Higher intensity therapeutic range 2.5 - 3.5 52-Myu-994473:40 Prothrombin Time (PT) Comments: PERFORMED BY: Leetchi Lbstwj9302 [facility] [id number] Prothrombin Time 26.4 {sec} (Abnormal) Range: 8.7-11.5 INR 2.7 (Abnormal) Range: 0.8-1.2 Comments: Reference interval is for non-anticoagulated patients..Suggested INR therapeutic range for Vitamin Kantagonist therapy:Standard Dose (moderate intensitytherapeutic range): 2.0 - 3.0Higher intensity therapeutic range 2.5 - 3.5 6-Ljw-974226:16 Prothrombin Time (PT) Comments: PERFORMED BY: Leetchi Dvfpdq8093 [facility] [id number] Prothrombin Time 14.1 {sec} (Abnormal) Range: 8.7-11.5 INR 1.4 (Abnormal) Range: 0.8-1.2 Comments: Reference interval is for non-anticoagulated patients..Suggested INR therapeutic range for Vitamin Kantagonist therapy:Standard Dose (moderate intensitytherapeutic range): 2.0 - 3.0Higher intensity therapeutic range 2.5 - 3.5 65-Syy-263057:04 PT (Prothrobim Time) Comments: inr; PATIENT NOT FASTINGPERFORMED BY: Le[facility]chiJefferson [facility])Xngyyp7110 [facility] [id number] Information: ADD DRAW FEE [id number] AND J0 3378 (33880) Prothrombin Time 36.2 {sec} (Abnormal) Range: 8.7-11.5 INR 3.7 (Abnormal) Range: 0.8-1.2 Comments: Client Requested FlagReference interval is for non-anticoagulated patients..Suggested INR therapeutic range for Vitamin Kantagonist therapy:Standard Dose (moderate intensitytherapeutic range): 2.0 - 3.0Higher intensity therapeutic range 2.5 - 3.5 9-Lab-589137:03 TSH (70171) Comments: PATIENT WAS FASTINGPERFORMED BY: MymCartSouthwest Regional Rehabilitation Center6370 [facility] [facility] [id number] TSH 0.329 {uIU/mL} (Abnormal) Range: 0.450-4.500 :03 URINALYSIS, W/ MICRO (35910) Comments: PATIENT WAS FASTINGPERFORMED BY: [facility]6370 [facility] [id number] Bilirubin Negative (Normal) Microscopic Examination See below: (Normal) Nitrite, Urine Negative (Normal) Occult Blood 2+ (Abnormal) Urobilinogen,Semi-Qn 0.2 mg/dL (Normal) Range: 0.0-1.9 Glucose Negative (Normal) Ketones Negative (Normal) Protein 1+ (Abnormal) WBC Esterase 3+ (Abnormal) Appearance Clear (Normal) pH 6.0 (Normal) Range: 5.0-7.5 Specific Ebony 1.024 (Normal) Range: 1.005-1.030 Urine-Color Yellow (Normal) :03 MICROALBUMIN: CREATININE RATIO Comments: PATIENT WAS FASTINGPERFORMED BY: [facility]Wbcjkp3595 [facility] [id number] (94772) AND (09078) Microalb/Creat Ratio 76.6 {mg/g_creat} (Abnormal) Range: 0.0-30.0 Creatinine, Urine 298.9 mg/dL (Abnormal) Range: 15.0-278.0 Microalbumin, Urine 229.0 ug/mL (Abnormal) Range: 0.0-17.0 :03 METABOLIC PANEL, COMPREHENSIVE Comments: PATIENT WAS FASTINGPERFORMED BY: [facility]Sjoaed1154 [facility] [id number] (41945) A/G Ratio 1.5 (Normal) Range: 1.1-2.5 Albumin, [...] Glucose, Serum 83 mg/dL (Normal) Range: 65-99 7-Pyt-698281:03 LIPID PANEL (53963) Comments: PATIENT WAS FASTINGPERFORMED BY: [facility]aneouslyAt[facility] [id number] LDL/HDL Ratio 1.1 {ratio_units} (Normal) Range: 0.0-3.2 [...] MANUAL DIFF Comments: PATIENT WAS FASTINGPERFORMED BY: PerSay70 ResultlyAtrium Health University City [id number] Information: [id number] (93296) Baso (Absolute) 0.0 {x10E3/uL} (Normal) Range: 0.0-0.2 [...] 3.80-5.10 WBC 4.0 {x10E3/uL} (Normal) Range: 4.0-10.5 9-Jhu-183207:17 Prothrombin Time (PT) Comments: PERFORMED BY: [facility] Omrvlw6690 [facility] [id number] INR 1.2 (Normal) Range: 0.8-1.2 Comments: Reference interval is for non-anticoagulated patients. . Suggested INR therapeutic range for Vitamin K anta gonist therapy: Standard Dose (moderate intensity therapeutic range): 2.0 - 3.0 Higher intensity therapeutic range 2.5 - 3.5 Prothrombin Time 12.1 {sec} (Abnormal) Range: 8.7-11.5 52-Yuh-591639:56 Prothrombin Time (PT) Comments: PERFORMED BY: LeetchiLos Alamos Medical CenterQadfgy7657 [facility] [id number] INR 1.7 (Abnormal) Range: 0.8-1.2 Comments: Reference interval is for non-anticoagulated patients. . Suggested INR therapeutic range for Vitamin K anta gonist therapy: Standard Dose (moderate intensity therapeutic range): 2.0 - 3.0 Higher intensity therapeutic range 2.5 - 3.5 Prothrombin Time 17.0 {sec} (Abnormal) Range: 8.7-11.5 :26 CBC With Differential/Platelet Comments: PERFORMED BY: [employer]6370 [facility] [id number] Baso (Absolute) 0.0 {x10E3/uL} (Normal) Range: 0.0-0.2 [...] Comp. Metabolic Panel (14) Comments: PERFORMED BY: NUVIA [employer] Fyzrcf2022 Izabel [facility] [id number] A/G Ratio 1.5 (Normal) Range: 1.1-2.5 Albumin, [...] Ratio, Randm Ur Comments: PERFORMED BY: NUVIA [employer]6370 [facility] [id number] Creatinine, Urine 193.6 mg/dL (Normal) Range: 15.0-278.0 Microalb/Creat Ratio 7.4 {mg/g_creat} (Normal) Range: 0.0-30.0 Microalbumin, Urine 14.3 ug/mL (Normal) Range: 0.0-17.0 :26 NMR LipoProfile Comments: PERFORMED BY: [employer]6370 [facility] [id number] Cholesterol, Total 159 mg/dL (Normal) HDL-C 55 [...] :26 Prothrombin Time (PT) Comments: PERFORMED BY: [employer] [facility] [id number] INR 1.1 (Normal) Range: 0.8-1.2 Comments: Reference interval is for non-anticoagulated patients. . Suggested INR therapeutic range for Vitamin K anta gonist therapy: Standard Dose (moderate intensity therapeutic range): 2.0 - 3.0 Higher intensity therapeutic range 2.5 - 3.5 Prothrombin Time 11.0 {sec} (Normal) Range: 8.7-11.5 :2 TSH 0.296 {uIU/mL} Comments: PERFORMED BY: [employer] [id number] (Abnormal) Range: 0.450-4.500 :33 Prothrombin Time (PT) Comments: PERFORMED BY: [address] [id number] INR 3.3 (Abnormal) Range: 0.8-1.2 Comments: Reference interval is for non-anticoagulated patients. . Suggested INR therapeutic range for Vitamin K anta gonist therapy: Standard Dose (moderate intensity therapeutic range): 2.0 - 3.0 Higher intensity therapeutic range 2.5 - 3.5 Prothrombin Time 31.8 {sec} (Abnormal) Range: 8.7-11.5 :44 Prothrombin Time (PT) Comments: PERFORMED BY: [address] [id number] INR 1.1 (Normal) Range: 0.8-1.2 Comments: Reference interval is for non-anticoagulated patients. . Suggested INR therapeutic range for Vitamin K anta gonist therapy: Standard Dose (moderate intensity therapeutic range): 2.0 - 3.0 Higher intensity therapeutic range 2.5 - 3.5 Prothrombin Time 11.4 {sec} (Normal) Range: 8.7-11.5 :53 PT/INR, Office (43299) Comments: PATIENT NOT FASTINGClinical Information: ADD [id number] PERFORMED BY: [address] [id number] INR 4.3 (Abnormal) Range: 0.8-1.2 Comments: Reference interval is for non-anticoagulated patients. . Suggested INR therapeutic range for Vitamin K anta gonist therapy: Standard Dose (moderate intensity therapeutic range): 2.0 - 3.0 Higher intensity therapeutic range 2.5 - 3.5 Prothrombin Time 41.2 {sec} (Abnormal) Range: 8.7-11.5 03-Kwr-915660:42 PT/INR, Office (18333) Comments: done>Wf. INR 4.0 (Normal) 62-Qcf-215601:56 CBC With Differential/Platelet Comments: PATIENT WAS FASTINGPERFORMED BY: [facility] Isvjpt5716 [facility]abel [facility] [id number] Baso (Absolute) 0.0 {x10E3/uL} (Normal) Range: 0.0-0.2 [...] 11.7-15.0 WBC 4.3 {x10E3/uL} (Normal) Range: 4.0-10.5 76-Ucs-684474:56 Comp. Metabolic Panel (14) Comments: PATIENT WAS FASTINGPERFORMED BY: Leetchi Ywssdm1252 [facility] [id number] A/G Ratio 1.6 (Normal) Range: 1.1-2.5 Albumin, [...] Sodium, Serum 142 mmol/L (Normal) Range: 135-145 82-Bfq-185177:56 Microscopic Examination Comments: PATIENT WAS FASTINGPERFORMED BY: [employer] Qsjhmy3138 [facility] [id number] Bacteria Few (Normal) Cast Type Hyaline casts (Normal) Casts Present {/lpf} (Abnormal) Crystal Type Calcium Oxalate (Normal) Crystals Present (Abnormal) Epithelial Cells (non renal) 0-10 {/hpf} (Normal) Range: 0 - 10 Mucus Threads Present (Normal) RBC 4-10 {/hpf} (Abnormal) Range: 0 - 3 WBC 11-30 {/hpf} (Abnormal) Range: 0 - 5 07-Ywb-615410:56 NMR LipoProfile Comments: PATIENT WAS FASTINGPERFORMED BY: [employer] [facility] [id number] HDL-C 65 mg/dL (Normal) Large HDL-P 13.0 [...] 0.110 {uIU/mL} Comments: PATIENT WAS FASTINGPERFORMED BY: [employer] [facility] [id number] :56 (Abnormal) Range: 0.450-4.500 58-Ajz-002448:56 Urinalysis, Routine Comments: PATIENT WAS FASTINGPERFORMED BY: [employer] [facility] [id number] Appearance Clear (Normal) Bilirubin Negative (Normal) Glucose Negative (Normal) Ketones Negative (Normal) Microscopic Examination See below: (Normal) Nitrite, Urine Negative (Normal) Occult Blood Trace (Abnormal) pH 5.0 (Normal) Range: 5.0-7.5 Protein Negative (Normal) Specific Ebony 1.020 (Normal) Range: 1.005-1.030 Urine-Color Yellow (Normal) Urobilinogen,Semi-Qn 0.2 mg/dL (Normal) Range: 0.0-1.9 WBC Esterase 2+ (Abnormal) Vitamin D, 25-Hydroxy 34.8 ng/mL (Normal) Comments: PATIENT WAS FASTINGPERFORMED BY: [facility]Jeff[facility]Fzefiu7973 [facility] [id number] 2:56 Range: 32.0-100.0 Comments: Recent studies consider the lower limit of 32.0 ng/mL to be athreshold for optimal health.Sameer KRISHNA. J Nutr. 2004;135(2):317-22. 9-Hur-854282:36 PT/INR, Office (15334) Comments: done>Wf.no change zaida 2 weeks INR 2.7 (Normal) 40-Xha-428409:04 PT/INR, Office (80638) Comments: done BC INR 2.3 (Normal) 30-Bti-139038:17 PT/INR, Office (99106) INR 3.2 (Normal) 2-Bqx-959358:14 PT/INR, Office (46801) INR 2.7 (Normal) 33-Jnb-475385:31 LOWER EXT/JT ONLY (ROUTINE) Radiology Report See Note (Normal) Comments: Exam Number: [id number] MRI LEFT KNEE REASON FOR EXAMINATION Post [...] By: BRITNEY JONES M.D. :59 PT/INR, Office (66644) Comments: done kmforgot to take to [place] for 10 days has been back a month and still low INR 1.1 (Normal) :17 TSH 0.01 {uIU/mL} (Abnormal) Range: 0.34-4.82 :55 PT/INR, Office (17342) INR 2.2 (Normal) PT (PROTHROMBIN TIME) INR-2.2 s (Normal) Range: 11.5-13.5 :18 PT/INR, Office (89718) Comments: done>Wf. INR 1.7 (Normal) :58 PT/INR, Office (17976) Comments: 4MG CURRENT DOSE--INR 3.2 NEW DOSE 4 MG 5 DAYS WEEK AND 2 MG 2 DAYS ZAIDA 2 WEEKS INR 3.2 (Normal) PT (PROTHROMBIN TIME) INR-3.2 s (Normal) Range: 11.5-13.5 :23 Prothrombin Time (PT) Comments: PERFORMED BY: [facility]6370 [facility] [id number] INR 2.1 (Normal) Range: 2.0-3.5 Comments: INR [...] TSH < 0.01 {uIU/mL} (Abnormal) Range: 0.34-4.82 93-Hby-180438:14 PT/INR, Office (30546) INR 2.0 (Normal) :56 PT/INR, Office (72224) INR 1.4 (Normal) :47 PT/INR, Office (56667) INR 2.9 (Normal) PT (PROTHROMBIN TIME) INR-2.9 s (Normal) Range: 11.5-13.5 85-Jfc-525104:12 PT/INR, Office (40225) INR 2.2 (Normal) :22 PT/INR, Office (71726) INR 1.3 (Normal) Comments: aw 6-Gcu-215730:38 BILAT SCRN DIGITAL & CAD Radiology Report See Note (Normal) Comments: Exam Number: [id number] MAMMOGRAM, BILATERAL SCREENING DIGITAL AND CAD HISTORYRoutine [...] mammograms werealso examined with computer-aided detection software ([employer] Reported By: KEYUR MILTON M.D. 9-Udy-996511:38 DEXA BONE DENSITY STUDY (HP) Radiology Report See Note (Normal) Comments: Exam Number: [id number] BONE DENSITOMETRY HISTORYOsteopenia. TECHNIQUE Bone densitometry of [...] than in 2000 and 3.5%less than in 2003. IMPRESSIONThere is osteopenia of the lum bar spine and total left hip. Reported By: KEYUR MILTON M.D. 14-Rak-716918:41 PT/INR, Office (96226) Comments: 2.0 ok zaida 2-3 weeks INR 2.0 (Normal) :53 PT/INR, Office (70351) Comments: alt 2/4 and zaida 2 weeks inr 3.2 INR 3.2 (Normal) Comments: 0-Wcd-636731:10 PT/INR, Office (08929) Comments: done kmno change zaida in 2-3 weeks INR 2.6 (Normal) :52 PT/INR, Office (98525) INR 1.7 (Normal) Comments: :24 CULTURE, URINE URINE CULTURE See Note [...] Comments: GLU,2HPPG 75gm GLUC PPG GLUP from 0810:[id number]. :38 CBCD,SMEAR DIFF CELLS COUNTED 100 (Normal) [...] {uIU/mL} (Normal) Range: 0.34-4.82 :45 PT/INR, Office (23663) Comments: done INR 2.7 (Normal) :16 PRO [...] obstruction) SBO (small bowel obstruction) : Reviewed Diagrammer Letter Indication: SBO (small bowel obstruction) Fatigue [...] kidney disease, stage IV (severe) : Reviewed Diagrammer Letter Indication: Chronic kidney disease, stage IV [...] closed fracture of right hip : Reviewed Diagrammer Letter Indication: Status post-operative repair of closed [...] Lab Indication: Hypothyroidism LYMPHOMA, NOS : Reviewed Diagrammer Letter Indication: LYMPHOMA, NOS Hypertension, benign : [...] Indication: Hyperlipidemia, unspecified LYMPHOMA, NOS : Reviewed Diagrammer Letter Indication: LYMPHOMA, NOS Hyperlipidemia, unspecified : [...] Indication: LYMPHOMA, NOS LYMPHOMA, NOS : Reviewed Diagrammer Letter Indication: LYMPHOMA, NOS Hypothyroidism : Hypothyroidism: [...] Indication: Hypertension, benign LYMPHOMA, NOS : Reviewed Diagrammer Letter Indication: LYMPHOMA, NOS COUGH, NOS : [...] lymph nodes of multiple sites : Reviewed Diagrammer Letter Indication: Nodular lymphoma involving lymph nodes [...] lymph nodes of multiple sites : Reviewed Diagrammer Letter Indication: Nodular lymphoma involving lymph nodes [...] Side Effects Indication: Hyperlipidemia, unspecified Planned Observations PT (PROTHROMBIN TIME) (90544)Indication: Therapeutic drug monitoring On: 75-Npd-10303:12 Request Metabolic Panel, Comprehensive (94051)Indication: Chronic kidney disease, stage IV (severe) On: 68-Bkx-754847:40 Request PT (Prothrobim Time) (18592)Indication: MCFP current use of anticoagulant On: 27-Ggj-748305:39 Request Comments: call results directly to Dr Steward [phone] Metabolic Panel, Basic (58580)Indication: Chronic kidney disease, stage IV (severe) On: 50-Fyf-197283:35 Request C-REACTIVE PROTEIN (40497)Indication: CRP elevated On: :29 Request Sedimentation Rate-ESR (60867)Indication: CRP elevated On: :29 Request Metabolic Panel, Basic (11748)Indication: Abnormal blood finding On: 51-Apf-110614:30 Request CALCIFIDIOL (83271) VIT D 25Indication: Chronic fatigue On: 5-Tgk-166590:24 Request VITAMIN B-12 (CYANOCOBALAMIN) (07817)Indication: Chronic fatigue On: 6-Oom-158720:24 Request SED RATE ERYTHROCYTE (91250)Indication: Chronic fatigue On: 9-Yuu-268537:23 Request METABOLIC PANEL, COMPREHENSIVE (44623)Indication: Chronic fatigue On: 0-Ltx-896814:23 Request C-REACTIVE PROTEIN (50143)Indication: Chronic fatigue On: 3-Ovo-908849:23 Request CBC (AUTO) (02709)Indication: Chronic fatigue On: 4-Xbk-769288:23 Request CBC & PLATELETS (AUTO) (04769)Indication: Chronic kidney disease, stage IV (severe) On: 77-Uzw-120878:25 Request Comments: to Dr. Felix Parra IRON & TOTAL IRON BINDING CAPACITY (15458)Indication: Chronic kidney disease, stage IV (severe) On: 32-Pti-432645:25 Request Comments: to Dr. Felix Parra PT (PROTHROMBIN TIME) (41617)Indication: Chronic kidney disease, stage IV (severe) On: 03-Bvi-379892:24 Request Comments: to Dr. 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 On: 78-Iyl-919622:00 Request Metabolic Panel, Basic (31648)Indication: Hypertension, benign On: 2-Bhm-341945:44 Request FECAL OCCULT- Tubes sent home (08755)Indication: Encounter for screening for malignant neoplasm of colon (Renamed from Special screening for malignant neoplasms, colon) On: 6-Fzi-363227:25 Request PT (Prothrobim Time) (02414)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 On: 9-Nmq-137017:08 Request URINALYSIS, W/ MICRO (86355)Indication: Hypertension, benign On: 73-Xlq-542480:45 Request MICROALBUMIN: CREATININE RATIO (09004) AND (56496)Indication: Hypertension, benign On: 08-Yvi-784340:45 Request LIPID PANEL (48133)Indication: Hyperlipidemia, unspecified On: 85-Xrc-343875:45 Request D-Dimer (99639)Indication: Difficulty breathing On: 71-Wad-422988:09 Request Vitamin D Hydroxy (07501)Indication: Osteopenia On: 09-Xzn-837428:16 Request CBC W/AUTO DIFF WBC (83283)Indication: Hyperlipidemia, unspecified On: 33-Xwe-617096:19 Request Comments: pls assure i get copy of all lab i ordered METABOLIC PANEL, COMPREHENSIVE (39533)Indication: Hyperlipidemia, unspecified On: 60-Xnp-463474:17 Request LIPID PANEL (16023)Indication: Hyperlipidemia, unspecified On: 16-Pau-845470:17 Request URINALYSIS, W/ MICRO (49888)Indication: Hypertension, benign On: 21-Nux-417306:11 Request MICROALBUMIN: CREATININE RATIO (82535) AND (67857)Indication: Hypertension, benign On: 17-Arh-908828:11 Request CALCIFIDIOL (07658) VIT D 25Indication: FATIGUE On: :31 Request Folate (49509)Indication: FATIGUE On: :31 Request VITAMIN B-12 (CYANOCOBALAMIN) (83484)Indication: FATIGUE On: :31 Request SED RATE ERYTHROCYTE (67967)Indication: FATIGUE On: : Request RHEUMATOID FACTOR-QUANT (25946)Indication: FATIGUE On: : Request METABOLIC PANEL, COMPREHENSIVE (98237)Indication: FATIGUE On: Request C-REACTIVE PROTEIN (03978)Indication: FATIGUE On: : Request CBC (AUTO) (57139)Indication: FATIGUE On: Request ZAY (ANTINUCLEAR ANTIBODY) (26521)Indication: FATIGUE On: Request URINALYSIS, W/ MICRO (96473)Indication: Hypertension, benign On: : Request MICROALBUMIN: CREATININE RATIO (19993) AND (73896)Indication: Hypertension, benign On: : Request LIPID PANEL (25371)Indication: Hyperlipidemia, unspecified On: : Request URINE ANURAG CULTURE-TYSON COL COUNT (11341)Indication: Urinary frequency On: :06 Request URINALYSIS, W/ MICRO (54478)Indication: Hypertension, benign On: 51-Fmu-401378:56 Request MICROALBUMIN: CREATININE RATIO (09607) AND (36577)Indication: Hypertension, benign On: 11-Rmd-831727:56 Request METABOLIC PANEL, COMPREHENSIVE (78047)Indication: Hypertension, benign On: 97-Mwo-624279:56 Request CBC WITH MANUAL DIFF (90629)Indication: Hypertension, benign On: 24-Tpp-423033:56 Request LIPID PANEL (83632)Indication: Hyperlipidemia, unspecified On: 12-Jtj-426837:56 Request CBC with manual diff (88863)Indication: LYMPHOMA, NOS On: :15 Request Comments: pls fax a copy to [phone] PT (Prothrobim Time) (69786)Indication: MCFP current use of anticoagulant On: :14 Request Comments: pls fax a copy to [phone] PTT (Activated Partial Thromboplastin Time) (04903)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 On: :14 Request LDH (LD) (LACTATE DEHYDROGENASE) (19907)Indication: LYMPHADENITIS, ACUTE (683.) On: 34-Ogg-532464:37 Request SED RATE ERYTHROCYTE (79090)Indication: LYMPHADENITIS, ACUTE (683.) On: :36 Request C-REACTIVE PROTEIN (07180)Indication: LYMPHADENITIS, ACUTE (683.) On: :36 Request CBC WITH MANUAL DIFF (14315)Indication: LYMPHADENITIS, ACUTE (683.) On: :36 Request METABOLIC PANEL, COMPREHENSIVE (41461)Indication: LYMPHADENITIS, ACUTE (683.) On: :36 Request CALCIUM, IONIZED (00140)Indication: Hypercalcemia On: :03 Request CALCIUM SERUM (82372)Indication: Hypercalcemia On: 8-Rgs-220027:03 Request Metabolic Panel, Comprehensive (01482)Indication: Hyperlipidemia, unspecified On: 72-Qyb-170508:33 Request T4, FREE (THYROXINE) (07917)Indication: Hypothyroidism On: 68-Odf-858469:15 Request T3, FREE (TRIDOTHYRONINE) (17704)Indication: Hypothyroidism On: 96-Qor-785507:15 Request LIPOPROTEIN, BLD, BY NMR (32783)Indication: Hypertension, benign On: 6-Plz-554974:50 Request METABOLIC PANEL, COMPREHENSIVE (11287)Indication: Hypertension, benign On: 22-Npm-706178:52 Request MICROALBUMIN: CREATININE RATIO (31360) AND (97252)Indication: Hypertension, benign On: :52 Request LIPOPROTEIN, BLD, BY NMR (88033)Indication: Hypertension, benign On: 51-Ado-248144:52 Request LIPID PANEL (67553)Indication: Hypertension, benign On: 17-Uzx-154853:52 Request CBC WITH MANUAL DIFF (55488)Indication: Hypertension, benign On: 35-Uhn-260540:52 Request Vitamin D Hydroxy (04243)Indication: Osteoporosis On: :35 Request URINALYSIS W/O MICRO (96190)Indication: Hypertension, benign On: 9-Wda-940309:35 Request MICROALBUMIN: CREATININE RATIO (81477) AND (14167)Indication: Hypertension, benign On: :35 Request METABOLIC PANEL, COMPREHENSIVE (96898)Indication: Hypertension, benign On: :35 Request LIPOPROTEIN, BLD, BY NMR (33236)Indication: Hypertension, benign On: :35 Request LIPID PANEL (69784)Indication: Hypertension, benign On: :35 Request CBC WITH MANUAL DIFF (22354)Indication: Hypertension, benign On: :35 Request PT/INR, Office (14885)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 On: :32 Request Comments: done awinr 2.8 same dose zaida 2-3 weeks PT/INR, Office (34399)Indication: Other pulmonary embolism and infarction On: :55 Request URINALYSIS W/O MICRO (63328)Indication: Hypertension, benign On: :47 Request MICROALBUMIN URINE QUANT (98039)Indication: Hypertension, benign On: :47 Request LIPID PANEL (82132)Indication: Hypertension, benign On: :47 Request METABOLIC PANEL, COMPREHENSIVE (19467)Indication: Hypertension, benign On: :47 Request CBC WITH MANUAL DIFF (59701)Indication: Hypertension, benign On: :47 Request PT/INR, Office (59993)Indication: Other pulmonary embolism and infarction On: 48-Sfa-948601:19 Request PT/INR, Office (67341)Indication: Other pulmonary embolism and infarction On: :49 Request Glucose, PP/2 Hour (71674)Indication: Family history of diabetes mellitus On: :17 Request URINALYSIS W/O MICRO (49112)Indication: Hypertension, benign On: :17 Request METABOLIC PANEL, COMPREHENSIVE (98001)Indication: Hypertension, benign On: :17 Request MICROALBUMIN URINE QUANT (36316)Indication: Hypertension, benign On: :17 Request LIPID PANEL (93034)Indication: Hypertension, benign On: :17 Request CBC WITH MANUAL DIFF (55554)Indication: Hypertension, benign On: :17 Request PT/INR, Office (83543) On: :29 Request Planned Encounters Medical; 6 Week FU - On: 15-Aug-2018 11:00 [facility] Anya Steward DO, DO, Kathleen Planned Procedures CT - Abdomen (Without Contrast)By: On: 03-Jan-2018 Intent Anya Steward DO, DO, Kathleen CT SCAN OF ABDOMEN WITH CONTRAST On: 22-Dec-2017 Intent (86801)By: Anya Steward DO, DO, Kathleen CT - Abdomen & Pelvis (IV Contrast On: 19-Jun-2017 Intent Needed)By: Anya Steward DO, DO, Kathleen PFT - CompleteBy: Nichelle MURRIETA, On: 15-Jun-2017 Intent Anya Dumont DO Comments: with DLCO B 12 Injection, 1000 mcg (J3420)By: On: 15-Jun-2017 Intent Anya Steward DO, DO, Comments: 1ml given lt dltd lot [id number] exp 09/18 Anya Radiology - Chest- PA and LatBy: On: 15-Jun-2017 Intent Anya Steward DO, DO, Kathleen Spirometry (34494)By: Nichelle MURRIETA, On: 15-Jun-2017 Intent Anya Dumont DO Comments: moderate obstruction ELECTROCARDIOGRAM, COMPLETE (ECG) On: 15-Jun-2017 Intent (20031)By: Anya Steward DO Comments: nsr no acute chg Anya Steward DO Radiology - Abdomen SeriesBy: On: 15-May-2017 Intent Yolanda Zarco SCREENING DIGITAL TOMOSYNTHESIS OF On: 14-Dec-2016 Intent BREAST (43238)By: Anya Steward DO, DO, Kathleen MRI OF THORACIC SPINE WITHOUT On: 05-Dec-2016 Intent CONTRAST (07668)By: Anya Steward DO, DO, Kathleen Inhaler Demo (16677)By: Nichelle MURRIETA, On: 23-Sep-2016 Intent Anya Dumont DO Spirometry (22486)By: Nichelle MURRIETA, On: 23-Sep-2016 Intent Anya Dumont DO Comments: restrictive pattern Radiology - Chest- PA and LatBy: On: 23-Sep-2016 Intent Nichelle DO, Anya Nichelle DO, Anya Aerosol Treatment (49805)By: Nichelle On: 23-Sep-2016 Intent DO, Anya Nichelle DO, Anya Comments: 0.83% albulterol more a/e more noisy with diffuse inspir and exp wheeze DEXA SCAN AXIAL SKELETON (45421)By: On: 02-Nov-2015 Intent Nichelle DO, Anya Nichelle DO, Anya MAMMOGRAM, SCREENING, BOTH BREAST On: 02-Nov-2015 Intent (13016)By: Anya Steward DO NichelleAnya basurto DO Inhaler Demo (89927)By: Nichelle MURRIETA, On: 07-Oct-2015 Intent Anya Nichelle DO, Anya Aerosol Treatment (95800)By: Nichelle On: 07-Oct-2015 Intent DO, Anya NichelleAnya basurto DO Comments: no hweeze but still tight Radiology - Chest- PA and LatBy: On: 07-Oct-2015 Intent Nichelle DO, Anya Nichelle DO, Anya Radiology - Cervical SpineBy: Nichelle On: 17-Sep-2015 Intent Anya MURRIETA Nichelle DOAnya CT - ChestBy: Anya Steward DO On: 16-Jan-2015 Intent Nichelle Anya MURRIETA Doppler Ultrasound OtherBy: Nichelle On: 14-Jan-2015 Intent DO, Anya Nichelle DOAnya Comments: b/l lower extremities COMPUTED TOMOGRAPHY ANGIOGRAPHY OF On: 14-Jan-2015 Intent CHEST FOR PULMONARY EMBOLISM Comments: Pls call [phone] with wet read (84335)By: NichelleAnya basurto DO Nichelle DOAnya Radiology - ChestBy: Nichelle DO, On: 14-Jan-2015 Intent Anya Nichelle DOAnya OtherBy: Nichelle DOAnya Nichelle On: 14-Jan-2015 Intent Anya MURRIETA Comments: 3-phase bone scan-- history of lymphoma and osteopenia Qjnnoanhn-Nyu-Cxvdf (20632)By: On: 12-Dec-2014 Intent Nichelle Anya MURRIETA DO, Kathleen DEXA SCAN AXIAL SKELETON (07323)By: On: 19-Nov-2014 Intent Anya Steward DO, DO, Kathleen Radiology - Hip - RightBy: Nichelle On: 22-Oct-2014 Intent Anya MURRIETA DO, Kathleen Prevnar 13 ([id number])By: Nichelle MURRIETA, On: 10-Jul-2014 Intent Anya Dumont DO EKG ([id number])By: Anya Steward DO On: 10-Jul-2014 Intent Anya Steward DO Comments: sinus nicolas noacute chg FLU VAC, SPLIT, >3 YEARS, INTRAMUSC On: 22-May-2013 Intent ([id number])By: Sariah Brantley LPN Comments: lot [id number] 2013site/route L thomas, IMamt 0.5mlVIS and ABN signed when applicableChepromedica cold[facility] ADMINISTRATION OF INFLUENZA VIRUS On: 22-May-2013 Intent VACCINE ([id number])By: Sariah Brantley LPN B 12 Injection, 1000 mcg ([id number])By: On: 15-Apr-2013 Intent Akosua Gannon Comments: Lot:[id number]:Dose:1mlRoute:IMSite:l armGiven By:OLIVIER signed Eprescribed prescriptions ([id number])By: On: 15-Apr-2013 Intent Akosua Gannon EKG ([id number])By: Anya Steward DO On: 18-Feb-2013 Intent Anya Steward DO Comments: nsr no acute chg B 12 Injection, 1000 mcg ([id number])By: On: 18-Feb-2013 Intent Anya Steward DO, DO, Comments: lot: [id number]: 01/11site/route: R deltoid/IMamt: 1mLVIS signed when applicableSipes[place] [facility] Anya TDAP VACCINE >7 IM ([id number])By: Nichelle On: 18-Feb-2013 Intent Anya MURRIETA DO, Kathleen Comments: lot: [id number]: 05/08/15site/route: L deltoid/IMamt: 0.5mLVIS signed when applicable: yesChelsea, DETECTIVE YOUTH BUREAU MAMMOGRAM, SCREENING, BOTH BREASTS On: 18-Feb-2013 Intent ([id number])By: Anya Steward DO Comments: dx screening Anya Steward DO Eprescribed prescriptions ([id number])By: On: 18-Feb-2013 Intent Yolanda Dove LPN Toradol Injection, 30 mg ([id number])By: On: 13-Nov-2012 Intent Madonna Nation LPN Comments: Lot #[id number]-right hipDose-30mggiven by: Yony Nation LPN Radiology - ChestBy: Miri Polanco CNP On: 13-Nov-2012 Intent E Comments: attention Rt ribs SPECIMEN HNDLNG/TRNSPRT, OFFC > LAB On: 24-Sep-2012 Intent ([id number])By: Sariah Brantley LPN Eprescribed prescriptions ([id number])By: On: 06-Sep-2012 Intent Anya Steward DO, DO, Kathleen FLU VAC, SPLIT, >3 YEARS, INTRAMUSC On: 08-Jun-2012 Intent ([id number])By: Miri Polanco CNP Comments: Lot:[id number]:6.13Amt:prefilled syringeSite: L Dltd, IMGiven by: ELICEO EspanaVIS signed ADMINISTRATION OF INFLUENZA VIRUS On: 08-Jun-2012 Intent VACCINE ([id number])By: Miri Polanco CNP Eprescribed prescriptions ([id number])By: On: 04-Apr-2012 Intent Miri Polanco CNP SPECIMEN HANDLING/TRANSPORT On: 04-Apr-2012 Intent ([id number])By: Sariah Brantley LPN EKG ([id number])By: Anya Steward DO On: 22-Jun-2011 Intent Anya [...] SPLIT, >3 YEARS, INTRAMUSC On: 25-May-2011 Intent ([id number])By: Anya Steward DO Comments: 0.5cc given im lt arm lot [id number] exp 01-28-12 Anya Steward DO ADMINISTRATION OF INFLUENZA VIRUS On: 25-May-2011 Intent VACCINE (G0008)By: Anya Steward DO, DO, Kathleen CT - Abdomen & Pelvis (IV Contrast On: 25-May-2011 Intent Needed)-- attention to mass in R groin-- pt has lymphoma in remissionBy: Anya Steward DO, DO, Kathleen Solu -Medrol Injection, 125 mg On: 18-Apr-2011 Intent ([id number])By: Miri Polanco CNP Comments: Lot #[id number]/Site-L hip, IMDose 125mggiven by:DEYANIRA MRI - BrainBy: Miri Polanco CNP On: 17-Mar-2011 Intent Comments: today if possible Carotid DopplerBy: Miri Polanco CNP On: 17-Mar-2011 Intent DXA, BONE DENSITY, AXIAL SKELETON On: 23-Dec-2010 Intent ([id number])By: Anya Steward DO, DO, Kathleen EKG ([id number])By: Anya Steward DO On: 23-Dec-2010 Intent Anya Steward DO Comments: nsr no acute chg MRI - Left arm- attention; deltoid On: 07-Jul-2010 Intent area -bulgeBy: Anya Steward DO Nichelle DOAnya Radiology - PelvisBy: Nichelle DO, On: 07-Jul-2010 Intent Anya Dumont DO Radiology - Lumbar SpineBy: Nichelle On: 07-Jul-2010 Intent DOAnya Nichelle DOAnya Radiology - Hip - RightBy: Nichelle On: 07-Jul-2010 Intent DOAnya DO, Kathleen FLU VAC, SPLIT, >3 YEARS, INTRAMUSC On: 07-Jul-2010 Intent ([id number])By: Yolanda Dove LPN Comments: 0.5cc given im lt arm lot [id number] 4p exp - ADMINISTRATION OF INFLUENZA VIRUS On: 07-Jul-2010 Intent VACCINE (G0008)By: Yolanda Dove LPN ADMINISTRATION OF PNEUMOCOCCAL On: 13-Apr-2009 Intent VACCINE (G0009)By: Anya Steward DO, DO, Kathleen PNEUM VAC ADLT/IMUMNOSPR, SBC/INTRM On: 13-Apr-2009 Intent ([id number])By: Anya Steward DO Comments: 0.5cc given im rt dltd lot [id number] exp 01-01-10 Anya Steward DO EKG ([id number])By: Yolanda Dove LPN On: 13-Apr-2009 Intent Comments: rob raor no acute changes IMMUNIZ ADMNIN, 1 VAC, SNGL/COMBO On: 13-Apr-2009 Intent ([id number])By: Yolanda Dove LPN FLU VAC, SPLIT, >3 YEARS, INTRAMUSC On: 13-Apr-2009 Intent ([id number])By: Yolanda Dove LPN Comments: rob andraed 0.5 cc given im lt [place]omas lot [id number] 4p exp 12-07 MRI - Knee(s) - LeftBy: Nichelle MURRIETA, On: 20-Jun-2008 Intent Anya Dumont DO EKG ([id number])By: Anya Steward DO On: 18-Feb-2008 Intent Anya Steward DO Comments: NSR NO ACUTE CHANGES--NONSPECIFIC CHANGESNO CHANGES DXA, BONE DENSITY, AXIAL SKELETON On: 09-Jul-2007 Intent ([id number])By: Anya Steward DO, DO, Kathleen MAMMOGRAM, SCREENING, BOTH BREASTS On: 09-Jul-2007 Intent ([id number])By: Anya Steward DO, DO, Kathleen EKG ([id number])By: Anya Steward DO On: 28-Feb-2007 Intent Anya [...] pneumonia : Patient Instructions Indication: Walking pneumonia [facility] current use of anticoagulant : Patient Instructions 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 Cough : How [...] 23.0-23.9, adult, Non-smoker, Abdominal pain, Hematuria, gross, [facility] current use of anticoagulant, Nodular lymphoma involving [...] 13-Jul-2017 11:14 Therapeutic drug monitoring, Edema extremities, 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 The patient has noticed [...] and other. 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 The activities of daily living the patient [...] contributing to the patient's care are other: (VzksyyEib-[id number]-shninxlz). Encounter Diagnosis: Hypothyroidism (244.9), Nodular lymphoma involving [...] The patient does have durable power of attorney lawyer and living will. The patient has noticed dissatisfaction with life, dropping activities and interests, feeling helpless, feeling worthless, lack of energy and thinking mos t people are better off than them. Other providers contributing to the patient's care are administrative executive (Dr. Martino) and other: (Dr. Shields for [...] cough or fatigue.Encounter Diagnosis: PHARYNGITIS, ACUTE (462.), [place] eye (372.03) [facility] Visit [...] [facility] End: 10-Apr-2006 14:29 Payers MedicareAARP/[facility] CENTERapoorva hawk guarantor
--- OUTSIDE RECORDS SUMMARY | 2018-08-24 20:26 | XMS RPT_ITS | Continuity of Care Document ---
:1935 Author Organization [facility] Address [address] [place] [address] Phone Care Team Providers Name Role Phone Anya Steward DO Unavailable Dr. Alexey Shields Unavailable Guicho Rowe DO Unavailable Physical Therapy, [facility] Unavailable Asia Mcclain Unavailable Unavailable Daniel Hawk [...] lower quadrant pain (R10.32, 789.04) Status: Active group home current use of anticoagulant (Z79.01, V58.61) Comments: [...] Oral Tablet Disintegrating 1 (one) Tablet Tablet [id number] for 30 days Quantity: 60 {Tablet} Refills: [...] End : 15-Apr-2013 Inactive FOSAMAX PLUS D, 28-6770IV-MLPY (Oral Tablet) 1 Tablet QW for 0 days Quantity: 12 {Tablet} Refills: 3 Ordered:03-Aug-2009 Yolanad Dove LPN Start : 30-Jul-2008 Inactive FOSAMAX, [...] 12-Jul-2016 End : 11-Aug-2016 Inactive Vitamin D3 85268 UNIT Oral Tablet 1 (one) Tablet once [...] NOS (451.9) Status: Inactive as of 03-Aug-2009 [place] eye (372.03) Status: Inactive as of 18-Feb-2013 [...] Lower Extremity Result: Comments: See Note; NOTES: [facility] Cardiovascular Services [address] [place] [address] Venous Duplex US, Unilateral 06/30/18 1341 MR#: [id number] Acct: [id number] Name: SALMA BRYAN Rep #: [id number] : 1935 82 From: Que Gonzales MD [...] Dictated: 06/30/18 1341 Date Transcribed: 07/02/18 06 Project Administrator: Signed 30-Jun-2018 Discharge Instruction Result: Comments: See Note; NOTES: [facility] Medical Records Department [address] [place] [address] Discharge Instruction 06/30/18 1454 MR#: [id number] Acct: [id number] Name: SALMA WELLS Rep #: [id number] : 1935 82 From: Felice Aly DO [...] your Primary Care Provider. Call [facility] ([phone]) or report to the closest Emergency Room. Call 911 if necessary. 1456 <Electronically signed by Felice Aly DO> Date Felice Aly DO Cosigner Signature (If Indicated): Date CC: Anya Steward DO 30-Jun-2018 Emergency Department Summary Result: Comments: See Note; NOTES: [facility] Medical Records Department [address] [facility] [place] [address] Emergency Department Summary 06/30/18 1448 MR#: [id number] Acct: [id number] Name: SALMA DUENAS Rep #: [id number] : 1935 82 From: Felice Aly DO [...] lower extremity] This note was generated with [employer] dictation software. It may contain incorrect words, [...] your Primary Care Provider. Call [facility] ([phone]) or report to the closest Emergency Room. Call 911 if necessary. 06/30/18 1454 <Electronically signed by Felice Aly DO> Date ____ Felice Aly DO Cosigner Signature (If Indicated): Date CC: Anya Steward DO 07-May-2018 Echo, Complete w/ Contrast Result: Comments: See Note; NOTES: [facility] Cardiovascular Services [address] [place] [address] Echo Complete W/ Contrast 05/07/18 1404 MR#: [id number] Acct: [id number] Name: SALMA GONSALVES Rep #: [id number] : 1935 82 From: Fred Huerta MD Attending Dr: JARRELL KATE MD Status: REG CLI Ordering Dr: Jarrell Kate MD Date: 05/07/18 Location: [facility] Sex: F C Admitted: Reason For Study: [...] Date Dictated: 05/07/18 1404 Date Transcribed: 05/07/181625 Project Administrator: Signed 28-Feb-2018 Oncology Visit Report Result: Comments: See Note; NOTES: [facility] [address] [place] [address] OFFICE VISIT Date of Service: 02/28/18 1508 MR#: [id number] Acct: [id number] Name: FABIO DUENAS Rep #: [id number] : 1935 From: Keaton Young MD Age/Sex: [...] in 05/2017. She was transferred to in [facility] and, passed hard fecal material with resolution [...] Surgical: Hernia repair Other Surgical History: RUE AGDAAGUX FISTULA FOR ESRD BOWEL RESECTION WITH COLOSTOMY [...] Code Visit Office Visits / Cons ults: 69055 OV L4 Est 02/28/18 1515 <Electronically signed by Keaton Young MD> Date Keaton Young MD Cosigner Signature: Date __ (if applicable) CC: 18-Jan-2018 Downtime Report Result: Comments: See Note; NOTES: [facility] Medical Records Department [address] [place] [address] Downtime Report MR#: [id number] Acct: [id number] Name: SALMA DUENAS Rep #: [id number] : 1935 82 From: Erasto Cutler PCP: Anya Steward DO Status: REG CLI This patient was seen during an EMR downtime January 01, 2018 - January 08, 2018. This patient may have a combinatio n of paper and electronic documentation or all paper documentation. All documentation is viewable within the e-chart portion of [employer] for each patient visit. 04-Jan-2018 Abdomen without IV Contrast Result: Comments: See Note; NOTES: [facility] Imaging Services [address] [place] [address] Abdomen without IV Contrast MR#: [id number] Acct: [id number] Name: SALMA DUENAS Rep #: [id number] : 1935 F 82 From: Nereida Gary MD PCP: Anya Steward DO Status: REG CLI Study: Abdomen without IV Contrast Date of Exam: 01/04/18 Exam# [id number] Ordering Dr: Anya Steward DO STUDY: CT [...] support , Fax CC: Anya Steward DO Project Administrator: Signed 08-Aug-2017 Echocardiogram Complete Result: Comments: See Note; NOTES: [facility] Cardiovascular Services [address] [place] [address] Echo Complete 08/08/17 1308 MR#: [id number] Acct: [id number] Name: SALMA DUENAS Rep #: [id number] : 1935 81 From: Sergio Rivero MD [...] 1725 Date Sergio Rivero MD CC: Keaton Young MD; Anya Steward DO Date Dictated: 08/08/17 1308 Date Transcribed: 08/08/17 1725 Project Administrator: Signed 07-Aug-2017 Venous Duplex Lower Extremity Result: Comments: See Note; NOTES: [facility] Cardiovascular Services [address] [place] [address] Venous Duplex US - Jeff Extrem 08/07/17 1230 MR#: [id number] Acct: [id number] Name: SALMA DUENAS Rep #: [id number] : 1935 81 From: Jose E Armstrong [...] Date Dictated: 08/07/17 1230 Date Transcribed: 08/07/171735 Project Administrator: Signed 07-Aug-2017 Discharge Instruction Result: Comments: See Note; NOTES: [facility] Medical Records Department [address] [place] [address] Discharge Instruction 08/07/17 1454 MR#: [id number] Acct: [id number] Name: SALMA WELLS Rep #: [id number] : 1935 81 From: Felice Aly DO [...] your Primary Care Provider. Call [facility] ([phone]) or report to the closest Emergency Room. Call 911 if necessary. 08/07/17 1454 <Electronically signed by Felice Aly DO> Date Felice Aly DO Cosigner Signature (If Indicated): Date CC: Anya Steward DO 07-Aug-2017 Emergency Department Summary Result: Comments: See Note; NOTES: [facility] Medical Records Department [address] [place] [address] Emergency Department Summary 08/07/17 1450 MR#: [id number] Acct: [id number] Name: SALMA DUENAS Rep #: [id number] : 1935 81 From: Felice Aly DO PCP: Anya Steward DO Status: PRE ER - ER Visit Summary Date of Service: 08/07/17 Chief Complaint: [[place] to both legs and concern for DVT.] [...] lower extremities] This note was generated with [employer] dictation software. It may contain incorrect words, [...] problems, contact your Primary Care Provider. Call manetch Registry ([phone]) or r eport to the closest Emergency Room. Call 911 if necessary. 08/07/17 7947 <Electronically signed by Felice Aly DO> Date Felice Aly DO Cosigner Signature (If Indicated): Date CC: Anya Steward DO 02-Aug-2017 Abdomen/Pelvis without Cont Result: Comments: See Note; NOTES: [facility] Imaging Services [address] [place] [address] Abdomen/Pelvis without Cont MR#: [id number] Acct: [id number] Name: SALMA DUENAS Rep #: [id number] : 1935 F 81 From: David Wolfe MD PCP: Anya Steward DO Status: REG CLI Study: Abdomen/Pelvis without Cont Date of Exam: 08/02/17 Exam# [id number] Ordering Dr: Radha Bennett STUDY: CT ABDOMEN [...] Service support , CC: Anya Bennett NP Project Administrator: Signed 10-Jul-2017 Chest PA and Lateral Result: Comments: See Note; NOTES: [facility] Imaging Services [address] [place] [address] Chest PA and Lateral MR#: [id number] Acct: [id number] Name: SALMA DUENAS Rep #: [id number] : 1935 F 81 From: Shamir Leigh DO PCP: Anya Steward DO Status: REG CLI Study: Chest PA and Lateral Date of Exam: 07/10/17 Exam# [id number] Ordering Dr: Anya Steward DO STUDY: X-RA [...] Shamir Leigh DO at 15:44 EST Tel [phone], Service support , CC: Anya Steward DO Project Administrator: Signed 26-Jun-2017 Consultation Result: Comments: See Note; NOTES: [facility] Medical Records Department [address] [place] [address] Consultation 06/26/17 1626 MR#: [id number] Acct: [id number] Name: SALMA DUENAS Rep #: [id number] : 1935 81 From: Jasbir Luis MD PCP: Anya Steward DO Status: REG ER Y Location: ED Problem List (1) Partial obstruction of small intestine Status: Acute (2) Peristo mal hernia Status: Acute Reason for Consult Date of Consultation: 06/26/17 History of Present Illness: The patient is a 81 year old F who was admitted to [facility] with a GI bleed and an [...] time., - - colostomy. Psychiatric History: Depression RIBBON BLOCKER History: No pertinent RIBBON BLOCKER history Smoking Status: Never smoker - *Family [...] hernia (Acute) - Physical Exam General: Alert, [place] ed x3 HEENT: Atraumatic, PERRLA, EOMI, Normocephalic [...] Department Summary Result: Comments: See Note; NOTES: [facility] Medical Records Department [address] [place] [address] Emergency Department Summary 06/26/17 1606 MR#: [id number] Acct: [id number] Name: SALMA DUENAS Kenn Rep #: [id number] : 1935 81 From: Anderson Sherwood MD [...] of hypothyroidism This note was generated with [employer] software. It may contain incorrect words, spelling, [...] your Primary Care Provider. Call [facility] ([phone]) or report to the closest Emergency Room. Call 911 if necessary. 06/26/17 1611 <Electronically signed by Anderson Sherwood MD> Date Anderson Sherwood MD Cosigner Signature (If Indicated): Date CC: Jasbir Luis MD; Anya Steward DO 26-Jun-2017 Abdomen/Pel W ORAL Cont Only Result: Comments: See Note; NOTES: [facility] Imaging Services [address] [place] [address] Abdomen/Pel W ORAL Cont Only MR#: [id number] Acct: [id number] Name: SALMA DUENAS Rep #: [id number] : 1935 F 81 From: Nikhil Denson MD PCP: Anya Steward DO Status: REG ER Study: Abdomen/Pel W ORAL Cont Only Date of Exam: 06/26/17 Exam# [id number] Ordering Dr: Anderson Sherwood MD STUDY: CT [...] CC: Anya Steward DO; [place] Sherwood MD Project Administrator: Signed 21-Jun-2017 Emergency Department Summary Result: Comments: See Note; NOTES: [facility] Medical Records Department [address] [place] [address] Emergency Department Summary 06/21/17 1436 MR#: [id number] Acct: [id number] Name: SALMA DUENAS Rep #: [id number] : 1935 81 From: Nishi Murphy MD [...] evaluation underway This note was generated with [employer] dictation software. It may contain incorrect words, [...] your Primary Care Provider. Call [facility] ([phone]) or report to the closest Emergency Room. Call 911 if necessary. 06/21/17 1536 <Electronically signed by Vivienne Murphy MD> Date Nishi Murphy MD Cosigner Signature (If Indicated): Date CC: Anya Steward DO 21-Jun-2017 Abd Inc Decub and/or Erect Result: Comments: See Note; NOTES: [facility] Imaging Services [address] [place] [address] Abd Inc Decub and/or Erect MR#: [id number] Acct: [id number] Name: SALMA DUENAS Rep # : [id number] : 1935 F 81 From: Vanessa Berrios MD PCP: Anya Steward DO Status: REG ER Study: Abd Inc Decub and/or Erect Date of Exam: 06/21/17 Exam# [id number] Ordering Dr: Herbert Murphy MD STUDY: X-RAY [...] MD at 16:4 2 EST Tel Direct: [phone], Service support , CC: Anya Steward DO; Nishi Murphy MD Project Administrator: Signed 19-Jun-2017 Abdomen/Pelvis without Cont Result: Comments: See Note; NOTES: [facility] Imaging Services [address] [place] [address] Abdomen/Pelvis without Cont MR#: [id number] Acct: [id number] Name: SALMA DUENAS Rep #: [id number] : 1935 F 81 From: Vanessa Berrios MD PCP: Anya Steward DO Status: REG CLI Study: Abdomen/Pelvis without Cont Date of Exam: 06/19/17 Exam# [id number] Ordering Dr: Jordan Steward DO STUDY: CT [...] Berrios MD at 19:23 EST Tel Direct: [phone], Service support , CC: Anya Steward DO Project Administrator: Signed 16-Jun-2017 Chest PA and Lateral Result: Comments: See Note; NOTES: [facility] Imaging Services [address] [place] [address] Chest PA and Lateral MR#: [id number] Acct: [id number] Name: SALMA DUENAS Kenn Rep #: [id number] : 1935 F 81 From: Ranulfo Grant MD PCP: Anya Steward DO Status: REG CLI Study: Chest PA and Lateral Date of Exam: 06/16/17 Exam# [id number] Ordering Dr: Anya Steward DO STUDY: X [...] Service support , CC: Anya Steward DO Project Administrator: Signed 15-May-2017 Abd Inc Decub and/or Erect Result: Comments: See Note; NOTES: [facility] Imaging Services [address] [place] [address] Abd Inc Decub and/or Erect MR#: [id number] Acct: [id number] Name: SALMA DUENAS Rep # : [id number] : 1935 F 81 From: Vishal Mendez MD PCP: Anya Steward DO Status: REG CLI Study: Abd Inc Decub and/or Erect Date of Exam: 05/15/17 Exam# [id number] Ordering Dr: Yolanda Zarco PILATES INSTRUCTOR-C STUDY: X-RAY - ABDOMEN/PELVIS REASON FOR EXAM: [...] T11 vertebrae. Evon or right hip replacement. 4340 RAD/Abd Inc Decub and/or Erect IMPRESSION: Moderate amount of fecal material is seen in the colon. Electronically Sign ed: Vishal Mendez MD at 15:22 EDT Tel [phone], Service support , CC: ALISE Zarco; Anya Steward DO Project Administrator: Signed 13-Mar-2017 Chest without Contrast Result: Comments: See Note; NOTES: [facility] Imaging Services [address] [place] [address] Chest without Contrast MR#: [id number] Acct: [id number] Name: SALMA DUENAS Rep #: [id number] : 1935 F 81 From: Vishal Mendez MD PCP: Anya Steward DO Status: REG CLI Study: Chest without Contrast Date of Exam: 03/13/17 Exam# [id number] Ordering Dr: Jarrell Kate MD [facility]: CT CHEST WITHOUT CONTRAST REASON FOR [...] Vishal Mendez MD at 15:36 EDT Tel [phone], Service support , CC: JARRELL KATE MD; Anya Steward DO Project Administrator: Signed 21-Dec-2016 SCREENING MAMM (CAD), BILAT Result: Comments: See Note; NOTES: [facility] Imaging Services [address] [place] [address] Verdana 4d SCREENING MAMM (CAD), BILAT MR#: [id number] Acct: [id number] Name: YULISSADIANE CAROL Kenn Rep #: [id number] : 1935 F 81 From: Vishal Mendez MD PCP: Anya Steward DO Status: [facility] Study: SCREENING MAMM (CAD), BILAT Date of Exam: 12/21/16 Exam# [id number] Ordering Dr: Anya Salguero DO MAMMOGRAPHY - [...] delay biopsy of a clinically suspicious abnormality. [id number] Electronically Signed: Vishal stack MD at 13:42 EDT Tel [phone], Service support , CC: Anya Steward DO Project Administrator: Signed 08-Dec-2016 Spine Thoracic (Routine) Result: Comments: See Note; NOTES: [facility] Imaging Services [address] [place] [address] Verdana 4d Spine Thoracic (Routine) MR#: [id number] Acct: [id number] Name: ALLEN DUENAS Rep #: [id number] : 1935 F 81 From: Arthur Barnard MD PCP: Anya Steward DO Status: REG CLI Study: Spine Thoracic (Routine) Date of Exam: 12/08/16 Exam# [id number] Ordering Dr: Anya Steward DO STUDY: MRI [...] Service support , CC: Anya Steward DO Project Administrator: Signed 23-Sep-2016 Chest PA and Lateral Result: Comments: See Note; NOTES: [facility] Imaging Services [address] [place] [address] Verirving 4d Chest PA and Lateral MR#: [id number] Acct: [id number] Name: SALMA DUENAS Rep #: [id number] : 1935 F 80 From: Ezequiel Bradley MD PCP: Anya Steward DO Status: REG CLI Study: Chest PA and Lateral Date of Exam: 09/23/16 Exam# [id number] Ordering Dr: Anya Steward DO S TUDY: [...] Service support , CC: Anya Steward DO Project Administrator: Signed 05-Aug-2016 Hip 2-3 Views with Pelvis Result: Comments: See Note; NOTES: [facility] Imaging Services [address] [place] [address] Verdana 4d Hip 2-3 Views with Pelvis MR#: [id number] Acct: [id number] Name: FABIO DUENAS Rep #: [id number] : 1935 F 80 From: Shamir Leigh DO PCP: Anya Steward DO Status: REG CLI Study: Hip 2-3 Views with Pelvis Date of Exam: 08/05/16 Exam# [id number] Ordering Dr: Ty Lion DO STUDY: X-RAY [...] Shamir Leigh DO at 15:17 EST Tel [phone], Service support [phone], CC: Anya Steward DO; Guicho Lion DO Project Administrator: Signed 17-Jun-2016 History and Physical Exam Result: Comments: See Note; NOTES: [facility] Medical Records Department [address] [place] [address] History and Physical 06/17/16 1432 MR#: [id number] Acct: [id number] Name: SALMA DUENAS Rep #: [id number] : 1935 80 From: Jarod Morton DO [...] 78.1 H Lymph % (Auto) 13.1 L [place] % (Auto) 6.4 Eos % (Auto) 1.6 [...] Urine Clarity Urine pH Ur S pecific [place] Urine Protein Urine Glucose (UA) Urine Ketones Urine Occult Blood Urine Nitrite Urine Bilirubin Urine Urobilinogen Ur Leukocyte Esterase Urine RBC Urine WBC Ur Squamous Epith Cells Urine Bacteria Urine Mucus Blood Type 06/17/16 06/17/16 06/17/16 12:15 13:15 13:50 WBC RBC Hgb Hct MCV MCH MCHC RDW RDW Differential Plt Count MPV Immature Gran % (Auto) Neut % (Auto) Lymph % (Auto) [place] % (Auto) Eos % (Auto) Baso % [...] Sl. Cloudy Urine pH 6.0 Ur Specific [place] 1.015 Urine Protein 30 H Urine Glucose [...] (if applicable): Date CC: Jarod Morton DO; Ayna Steward DO Signed 17-Jun-2016 Hip 2-3 Views with Pelvis Result: Comments: See Note; NOTES: [facility] Imaging Services [address] [place] [address] Verdana 4d Hip 2-3 Views with Pelvis MR#: [id number] Acct: [id number] Name: FABIO DUENAS Rep #: [id number] : 1935 F 80 From: Vishal Mendez MD PCP: Anya Steward DO Status: REG ER Study: Hip 2-3 Views with Pelvis Date of Exam: 06/17/16 Exam# [id number] Ordering Dr: Vanessa Lucia MD STUDY: X-RAY [...] Mendez MD at 12:23 EST Tel [phone], Service support [phone], CC: Vanessa Lucia MD; Anya Steward DO Project Administrator: Signed 17-Jun-2016 Brain/Head without Contrast Result: Comments: See Note; NOTES: [facility] Imaging Services [address] [place] [address] Verdana 4d Brain/Head without Contrast MR#: [id number] Acct: [id number] Name: YULISSADIANE JAMESONLISA Kenn Rep #: [id number] : 1935 F 80 From: Vishal Mendez MD PCP: Anya Steward DO Status: [facility] Study: Brain/Head without Contrast Date of Exam: 06/17/16 Exam# [id number] Ordering Dr: Vanessa Romeo MD STUDY: CT [...] Vishal Mendez MD at 11:31 EST Tel [phone], Service support [phone], CC: Vanessa Lucia MD; Anya Steward DO Project Administrator: Signed 15-Mar-2016 Chest without Contrast Result: Comments: See Note; NOTES: [facility] Imaging Services [address] [place] [address] Verdana 4d Chest without Contrast MR#: [id number] Acct: [id number] Name: SALMA DUENAS Rep #: [id number] : 1935 F 80 From: Darius Ayoub PCP: Anya Steward DO Status: REG CLI Study: Chest without Contrast Date of Exam: 03/15/16 Exam# [id number] Ordering Dr: ANYA SAVAGE STUDY: CT CHEST [...] MD at 6:39 EDT , Service support [phone], CC: BELA SAVAGE; Anya Steward DO Project Administrator: Signed 09-Dec-2015 PT D/C of Non Returning Pt (1) Result: Comments: See Note; NOTES: [facility] [address] [place] [address]. [address] [place], [place] [address] Fax REHABILITATION RVICES DISCHARGE SUMMARY MR#: [id number] Acct: [id number] Name: SALMA DUENAS Rep #: [id number] : 1935 80 From: Jarod Michelle DPT, [...] and Lateral Result: Comments: See Note; NOTES: [facility] Imaging Services [address] [place] [address] Verdana 4d Chest PA and Lateral MR#: [id number] Acct: [id number] Name: SALMA MCNAMARA Rep #: [id number] : 1935 F 79 From: Vishal Mendez MD PCP: Anya Steward DO Status: REG CLI Study: Chest PA and Lateral Date of Exam: 10/07/15 Exam# [id number] Ordering Dr : Anya Steward DO STUDY: [...] Mendez MD at 15:21 EST Te l [phone], Service support [phone], 0091 RAD/Chest PA and Lateral IMPRESSION: Stable examination. No acute infiltrate is seen. Electronically Signed: Eren Mendez MD at 15:21 EST Tel [phone], Service support [phone], CC: Anya Steward DO Project Administrator: Signed 07-Oct-2015 Spirometry (13200) Comments: lil restriction but struggled to do Result: 28-Sep-2015 Inital Evaluation (1) - PT Result: Comments: See Note; NOTES: [facility] [address] [place] [address] Fax REHABILITATION SE RVICES INITIAL EVALUATION MR#: [id number] Acct: [id number] Name: SALMA DUENAS Rep #: [id number] : 1935 79 From: Jarod Michelle DPT, OCS, CSCS Referring Dr.: Anya Steward DO Statu s: REG RCR Insurance: MEDICARE PART A B Eval Date: [facility] Patient's Visit Information SALMA DUENAS is a 79 year old F, referred to Physical Therapy by Anya Steward,, with a diagnosis of neck pain. Date of Evaluation: 09/25/15 Physical Therapist: Jardo Michelle - Visit Plan Frequency: up to [...] turning neck.. 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 Does own ho [...] 3 Views Result: Comments: See Note; NOTES: [facility] Imaging Services [address] [place] [address] Verdana 4d Lumbar Spine 2 or 3 Views MR#: [id number] Acct: [id number] Name: SALMA BRYAN Rep #: [id number] : 1935 F 79 From: Vishal Mendez MD PCP: Anya Steward DO Status: REG CLI Study: Lumbar Spine 2 or 3 Views Date of Exam: 09/23/15 Exam# [id number] O rdering Dr: Gal Shields MD STUDY: [...] Mendez MD at 15:00 EST Te l [phone], Service support [phone], 0046 RAD/Lumbar Spine 2 or 3 Views IMPRESSION: Degenerative changes of the spine, as detailed above. 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 Electronically Signed: Vishal Mendez MD at 15:00 EST Tel [phone], Service support [phone], CC: Gal Shields MD; Anya Steward DO Project Administrator: Signed 18-Sep-2015 Cerv Spine 4 or 5 Views Result: Comments: See Note; NOTES: [facility] Imaging Services [address] [place] [address] Verdana 4d Cerv Spine 4 or 5 Views MR#: [id number] Acct: [id number] Name: SALMA SCANLON Rep #: [id number] : 1935 F 79 From: Brayden Gerardo MD PCP: Anya Steward DO Status: REG CLI Study: Cerv Spine 4 or 5 Views Date of Exam: 09/18/15 Exam# [id number] Ordering Dr: Anya Steward DO STUDY: X-RAY [...] FACR at 20:09 EST , Service support [phone], RAD/Cerv Spine 4 or 5 Views IMPRESSION: 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 Imaging Services [address] [place] [address] Ronnell 4d Chest without Contrast MR#: [id number] Acct: [id number] Name: SALMA GONSALVES Rep #: [id number] : 1935 F 79 From: Ozzie Messer MD PCP: Anya Steward DO Status: REG CLI Study: Chest without Contrast Date of Exam: 09/07/15 Exam# [id number] Ordering Dr: Felix Parra MD STUDY: CT [...] at 9:57 EST Tel , Service support [phone], CC: Anya Steward DO; Felix Parra Project Administrator: Signed 07-Sep-2015 Abdomen/Pelvis without Cont Result: Comments: See Note; NOTES: [facility] Imaging Services [address] [place] [address] Verdana 4d Abdomen/Pelvis without Cont MR#: [id number] Acct: [id number] Name: SALMA DUENAS Rep #: [id number] : 1935 F 79 From: Ozzie Messer MD PCP: Anya Steward DO Status: REG CLI Study: Abdomen/Pelvis without Cont Date of Exam: 09/07/15 Exam# [id number] Or dering Dr: Felix Parra MD STUDY: [...] without evidence of incarceration. Electronically Signed: Reed Mesesr MD at 9:54 EST Tel , Service support [phone], CC: Anya Steward DO; Felix Parra Project Administrator: Signed 29-Jun-2015 EKG (85465) Comments: nsr no acute chg Result: [MEASUREMENTS ANALYSIS] Date of Test: 06/29/2015 14:05:21; Heart Rate: 66; ND Interval: 180; QRS: 98; QT Interval: 406; Corrected QT Interval (QTc): 416; P Wave [place]: 37; QRS Wave [place]: -7; T Wave [place]: 12; Blood Pressure: 120/78 [ECG DIAGNOSTIC STATEMENTS] Date of Test: 06/29/2015 14:05:21; Summary: Sinus Rhythm WITHIN NORMAL LIMITS 12-Jun-2015 Emergency Department Summary Result: Comments: See Note; NOTES: [facility] Medical Records Department [address] [place] [address] Emergency Department Summary MR#: [id number] Acct: [id number] Name: SALMA DUENAS Rep #: [id number] : 1935 79 From: Octavio Kate MD PCP: Anya Steward DO Status: [facility] DATE OF SERVICE: 06/09/2015 CHIEF COMPLAINT: Right arm fistula, possibly c lotted or obstructed. HISTORY OF PRESENT ILLNESS: A 79-year-old female with history of known renal insufficiency never need dialysis 2 years ago with a concern that she ____ right arm fistula placed at the [facility]. It has been doing well. Today, [...] edema with strong radial pulse. Norm al sand mixer machine strength, touch sensation in the right arm, hand. EMERGENCY DEPARTMENT COURSE: I did do screening labs on the patient. She is on Coumadin. Her INR is 1.6 and subtherapeutic. Also her nuclear chemistry technician ry panel was unremarkable other than a [...] C: Anya Canela T: LETICIA J OB: [id number] 06/12/15 0846 <Electronically signed by Octavio Kate MD> Date Octavio Kate MD Cosigner Signature (If Indicated): Date CC: Anya Steward DO Date Dictated: 06/09/15 1353 Date Transcribed: 06/09/15 135 Project Administrator: Signed 09-Jun-2015 Discharge Instruction Result: Comments: See Note; NOTES: [facility] Medical Records Department [address] [place] [address] Discharge Instruction 06/09/15 1353 MR#: [id number] Acct: [id number] Name: SALMA DUENAS Rep #: [id number] : 1935 79 From: Octavio Kate MD [...] problems, contact your doctor. Call [facility] ([phone]) or report to the closest Emergency Room. Call 911 if necessary. 06/09/15 1526 <Electronically signed by Octavio Kate MD> Date Octavio sarkar MD Cosigner Signature (If Indicated): Date CC: Anya Steward DO 21-Apr-2015 PT Discharge Summary Result: Comments: See Note; NOTES: [facility] Physical Therapy Health[address] [place] [address] Fax REHABILITATION SERVICES DISCHARGE SUMMARY MR#: [id number] Acct: [id number] Name: SALMA DUENAS Rep #: [id number] : 1935 79 From: Brandi Mares Referring DrBernice: Gal Shields MD Status: DIS RCR Eval Date: Sandra gamboa Date: 04/20/15 DATE OF SERVICE: DATE OF SERVICE: April 20, 2015 This patient was referred to physical therapy by Dr. Shields with a diagnosis of back pain. She has been seen in [facility] times a total of [...] goals have been met. Oswestry equals 16%, A1909-HB, B4687-DU. I am discharging her to independent home exercise isabel thomas at this time and she is agreeable to discharge. Brandi Mares, PT T: NTS JOB: [id number] <Electronically signed by Brandi Mares > 04/21/15 1419 CC: Anya Steward DO Signed 20-Mar-2015 Inital Evaluation - PT Result: Comments: See Note; NOTES: [facility] Physical Therapy [facility] [address] [place] [address] Fax REHABILITATION SERVICES INITIAL EVALUATION MR#: [id number] Acct: [id number] Name: SALMA DUENAS Rep #: [id number] : 1935 79 From: Brandi Mares Referring DrBernice: Gal Shields MD Status: REG RCR Insurance: [facility] Eval Date: [facility] DATE OF SERVICE: 03/19/2015 SUBJECTIVE: This patient [...] when she goes out. Oswestry equals 26%, L3318-OW, W1116-KM. PLAN: We plan to see this patient ____ times a week x10 visits for lumbar soft tissue mobilization as needed, dynamic lumbar stabilization exercise instruction, posture correction, instr uction in proper body mechanics for ADLs and bilateral lower extremity strengthening. She was agreeable with this plan of care. Brandi Mares, PT T: NTS JOB: [id number] <Electronically s igned by Brandi Mares > 03/20/15 0940 CC: Signed For Medicare only, by signing this I certify the plan of care. Physicians Signature Date 16-Jan-2015 Chest without Contrast Result: Comments: See Note; NOTES: [facility] Imaging Services [address] [place] [address] CAT Scan Report MR#: [id number] Acct: [id number] Name: SALMA DUENAS Kenn Rep #: [id number] : 1935 F 79 From: Ozzie Messer MD PCP: Anya Steward DO Status: REG CLI Study: Chest without Contrast Date of Exam: 01/16/15 Exam# [id number] Ordering Dr: Anya Steward DO STUDY: CT [...] at 16:01 EDT Tel , Service support [phone], CC: Anya Steward DO Project Administrator: Signed 15-Jan-2015 Bone Scan Whole Body Result: Comments: See Note; NOTES: [facility] Imaging Services [address] [place] [address] Nuclear Medicine Report MR#: [id number] Acct: [id number] Name: SALMA DUENAS ep #: [id number] : 1935 F 79 From: Iván Hearn DO PCP: Anya Steward DO Status: REG CLI Study: Bone Scan Whole Body Date of Exam: 01/15/15 Exam# [id number] Ordering Dr: Anya Steward DO CLINICAL: 79-year-old [...] Iván Hearn DO at 16:30 EDT Tel [phone], Service support [phone], Fax CC: Anya Steward DO Project Administrator: Signed 14-Jan-2015 Chest PA and Lateral Result: Comments: See Note; NOTES: [facility] Imaging Services [address] [place] [address] Radiology Report MR#: [id number] Acct: [id number] Name: SALMA DUENAS Rep #: [id number] : 1935 F 79 From: Sushil Benedict DO PCP: Anya Steward DO Status: REG CLI Study: Chest PA and Lateral Date of Exam: 01/14/15 Exam# [id number] Ordering Dr: Anya Steward DO STUDY: X-RAY [...] 2 3:58 EDT Tel , Service support [phone], RAD/Chest PA and Lateral IMPRESSION: Chronic appearing lung changes. Focal density in the right uppe r lobe adjacent to surgical staple line may represent a parenchymal scar. The previously identified right-sided rib fractures are not clearly visualized on this examination. Diffuse osteopenia, wi th findings of previous vertebroplasty. Electronically Signed: Sushil Benedict DO at 23:58 EDT Tel , Service support [phone], CC: Anya Steward DO Project Administrator: Signed 15-Dec-2014 Ribs Uni Min 3V w/PA Chest Result: Comments: See Note; NOTES: [facility] Imaging Services [address] [place] [address] Radiology Report MR#: [id number] Acct: [id number] Name: SALMA DUENAS Rep #: [id number] : 1935 F 79 From: Adal Kelly MD PCP: Anya Steward DO Status: REG CLI Study: Ribs Uni Min 3V w/PA Chest Date of Exam: 12/15/14 Exam# [id number] Ordering Dr: Anya Steward STUDY: X-RAY - [...] Borderline cardiac enlargement. 4. Left chest wall Sedmpf-k-Ffnj in place. 5. Prior cement augmentation of the T8 and T1 1 vertebra. Electronically Signed: Louis Kelly MD at 20:09 EDT , Service support [phone], RAD/Ribs Uni Min 3V w/PA C hest IMPRESSION: RIBS: Fractures of the anterolateral right fifth and sixth ribs. CHEST: 1. Prior right upper lobectomy. Surgical clips also seen in the right axilla/upper arm. 2. Chronic interst itial changes in the lungs. 3. Borderline cardiac enlargement. 4. Left chest wall Duabnq-h-Eeia in place. 5. Prior cement augmentation of the T8 and T11 vertebra. Electronically Signed: Louis myeers MD at 20:09 EDT , Service support [phone], CC: Anya Steward DO Project Administrator: Signed 02-Dec-2014 Dexa Bone Density Study (HP) Result: Comments: See Note; NOTES: [facility] Imaging Services [address] [place] [address] Bone Density Report MR#: [id number] Acct: [id number] Name: SALMA DUENAS Kenn Rep # : [id number] : 1935 F 79 From: Vishal Mendez MD PCP: Anya Steward DO Status: [facility] Study: Dexa Bone Density Study (HP) Date of Exam: 12/02/14 Exam# [id number] Ordering Dr: Anya Steward DO STUDY: DUAL [...] Vishal Mendez MD at 9:28 EDT Tel [phone], Service sup port [phone], CC: Anya Steward DO Project Administrator: Signed 24-Oct-2014 Hip min 2 Views Result: Comments: See Note; NOTES: [facility] Imaging Services [address] [place] [address] Radiology Report MR#: [id number] Acct: [id number] Name: SALMA DUENAS Rep #: [id number] : 1935 F 78 From: Dave Castanon MD PCP: Anya Steward DO Status: PRE CLI Study: Hip min 2 Views Date of Exam: 10/24/14 Exam# [id number] Ordering Dr: Felix Parra MD STUDY: X- [...] MD at 19:29 EDT , Service support [phone], CC: Anya Steward DO; Felix Parra Project Administrator: Signed 20-Oct-2014 Inital Evaluation - PT Result: Comments: See Note; NOTES: [facility] Physical Therapy [facility] [address] [place] [address] Fax REHABILITATION SERVICES INITIAL EVALUATION MR#: [id number] Acct: [id number] Name: SALMA DUENAS Rep #: [id number] : 1935 78 From: Mary Lou Hinkle [...] Mary Lou Hinkle DPT T: LETICIA JOB: [id number] &#60 ;Electronically signed by Mary Lou Hinkle > 10/20/14 1514 CC: Signed For Medicare only, by signing this I certify the plan of care. ____ Physicians Signature Date 26-May-2014 Lumbar Spine 2 or 3 Views Result: Comments: See Note; NOTES: [facility] Imaging Services [address] [facility] [place] [address] Radiology Report MR#: [id number] Acct: [id number] Name: SALMA DUENAS Rep #: [id number] : 1935 F 78 From: Shamir Leigh DO PCP: Anya Steward DO Status: REG CLI Study: Lumbar Spine 2 or 3 Views Date of Exam: 05/26/14 Exam# [id number] Ordering Dr: Gal Shields MD: X-RAY - [...] Signed: Shamir LeighDO at 16:47 EDT Tel [phone], Service support , CC: Gal Shields MD; Anya Steward DO Project Administrator: Signed 26-May-2014 Thoracic Spine 3 Views Result: Comments: See Note; NOTES: [facility] Imaging Services [address] [place] [address] Radiology Report MR#: [id number] Acct: [id number] Name: SALMA DUENAS Rep #: [id number] : 1935 F 78 From: Federico Galeas DO PCP: Anya tSeward DO Status: REG CLI Study: Thoracic Spine 3 Views Date of Exam: 05/26/14 Exam# [id number] Ordering Dr: Gal Shields MD STUDY: X-RAY [...] Federico Galeas DO at 19:00 EDT Tel [phone], Service support [phone], CC: Gal Shields MD; Anya Steward DO Project Administrator: Signed 26-May-2014 Thoracic Spine 3 Views Result: Comments: See Note; NOTES: [facility] Imaging Services [address] [place] [address] Radiology Report MR#: [id number] Acct: [id number] Name: SALMA DUENAS Rep #: [id number] : 1935 F 78 From: Federico Galeas DO PCP: Anya Steward DO Status: REG CLI Study: Thoracic Spine 3 Views Date of Exam: 05/26/14 Exam# [id number] Ordering Dr: Gal Shields MD ADDENDU M by Federico Galeas DO on 05/26/14 at 1902 ADDENDUM ADDENDUM: When compared to a study from April 29, 2014, there is increasing compression of T7, and especially T6 segment. 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 Vertebroplasty of T8 and T11. Electronically Signed: Federico Galeas DO at 19:00 EDT Tel [phone], Service support [phone], CC: Gal Shields MD; Anya Steward DO Project Administrator: Signed 19-May-2014 Upper GI w/BA Swallow Result: Comments: See Note; NOTES: [facility] Imaging Services [address] [place] [address] Radiology Report MR#: [id number] Acct: [id number] Name: SALMA DUENAS Rep #: [id number] : 1935 F 78 From: Vishal Mendez MD PCP: Anya Steward DO Status: REG CLI Study: Upper GI w/BA Swallow Date of Exam: 05/19/14 Exam# [id number] Ordering Dr: Felix Parra MD STUDY: X-RAY [...] Vishal Mendez MD at 14:20 EDT Tel [phone], Service support [phone], STUDY: AIR-CONTRAST UP PER GI SERIES. REASON [...] Vishal Mendez MD at 14:21 EDT Tel [phone], Service support [phone], CC: Anya Parra Project Administrator: Signed 29-Apr-2014 Lumbar Spine 2 or 3 Views Result: Comments: See Note; NOTES: [facility] Imaging Services [address] [place] [address] Radiology Report MR#: [id number] Acct: [id number] Name: SALMA DUENAS Rep #: : 1935 F 78 From: Marshall Chandler MD PCP: Anya Steward DO Status: REG CLI Study: Lumbar Spine 2 or 3 Views Date of Exam: 04/29/14 Exam# [id number] Ordering Dr: Gal Shields MD STUDY: X-RAY [...] MD at 23:47 EDT , Service support [phone], CC: Gal Shields MD; Anya Steward DO Project Administrator: Signed 29-Apr-2014 Thoracic Spine 3 Views Result: Comments: See Note; NOTES: [facility] Imaging Services [address] [place] [address] Radiology Report MR#: [id number] Acct: [id number] Name: SALMA DUENAS Rep #: : 1935 F 78 From: Marshall Chandler MD PCP: Anya Steward DO Status: REG CLI Study: Thoracic Spine 3 Views Date of Exam: 04/29/14 Exam# [id number] Ordering Dr: Gal Shields MD STUDY: X-RAY [...] MD at 0:37 EDT , Service support [phone], CC: Gal Shields MD; Anya Steward DO Project Administrator: Signed 28-Apr-2014 PET/CT Tumor Base -Thigh Subs Result: Comments: See Note; NOTES: [facility] Imaging Services [address] [place] [address] PET Scan Report MR#: [id number] Acct: [id number] Name: SALMA DUENAS Rep #: [id number] : 1935 F 78 From: Iván Hearn DO PCP: Anya Steward DO Status: REG CLI Study: PET/CT Tumor Base -Thigh Subs Date of Exam: 04/28/14 Exam# [id number] Ordering Dr: Felix Parra MD INDICATIONS: A [...] aneurysm formation. Coronary arterial calcification is observed. Peby-H-Tgyo-MediPort placement is noted. Scattered mediastinal and several [...] Iván Hearn DO at 22:10 EDT Tel [phone], Service support [phone], CC: Anya Steward DO; Felix Parra Project Administrator: Signed 10-Feb-2014 Operative Report Result: Comments: See Note; NOTES: [facility] Medical Records Department [address] [place] [address] Operative Report 02/10/14 0829 MR#: [id number] Acct: [id number] Name: SALMA DENNISON Rep #: [id number] : 1935 78 From: Justine Caldwell MD [...] prophylaxis not ordered:: Surgical contraindication 02/10/14 1112 <[facility] signed by Justine Caldwell MD> Date Justine Caldwell MD CC: Anya Steward DO; Justine Caldwell MD; Felix Parra Signed Immunization Name Dates Details Influenza (3 years and up) on: 13-Apr-2009 Comments: doen [place] 0.5 [place] [address] 4p exp 10 Pneumococcal (2 years and [...] Active 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 Non Drinker/No Alcohol Use [...] Area Calculated 1.71 m2 :44 Comments: [facility] [place] [facility] done Pulse [...] Date Description Value Details :24 THROAT CULTURE (06132) Comments: PATIENT NOT FASTINGPERFORMED BY: [facility] [id number] [facility] [id number] Information: THROAT SRC:TH Result 1 RRF (Normal) Comments: Routine respiratory raegan Upper Respiratory Culture Final report (Normal) 19-Szm-736431:12 Rapid Strep Test, Office (98647) Rapid Strep Test, Office Negative (Normal) 07-Gqy-616245:03 CBC W/Diff, Automated Comments: [facility] [address], [place], [address] Absolute Lymph 1.28 {X10_3/ul} (Normal) Range: 0.83-4.51 [...] Patient Taking Vitamins or Folic Acid Supplements? [facility] [address] [place], [address] FERRITIN 119 ng/mL (Normal) Range: 8-252 :03 Folates, (Folic Acid) Comments: Is Patient Taking Vitamins or Folic Acid Supplements? [facility] [address] [place], [address] FOLATES > 100.00 ng/mL (Abnormal) Range: 3.1-55.4 :03 Iron+Iron Binding Capacity Comments: Is Patient Taking Vitamins or Folic Acid Supplements? [facility] [address] [place], [address] IRON SATURATION 26.1 % (Normal) Range: 15.0-55.0 IRON 70 ug/dL (Normal) Range: 50-170 TIBC 268 ug/dL (Normal) Range: 250-450 :03 Protein+Creatinine Ratio,Urine Comments: [facility] [address] [place], [address] PROT:CRE RATIO 488 {mg/g_CRE} (Abnormal) Range: 0-200 PROTEIN,UR.RAN. 84.9 mg/dL (Abnormal) UR CREAT 174.00 mg/dL (Normal) 39-Lpm-725543:03 PTHIN 25.1 pg/mL (Normal) Comments: [facility] [address] [place], [place], [address] Range: 18.4-80.1 55-Akp-018019:03 Renal Profile Comments: Is Patient Taking Vitamins or Folic Acid Supplements? [facility] [address] [place], [place], [address] CO2 17.0 mmol/L (Abnormal) Range: 21.0-32.0 CL [...] Comments: Please note revised GLUCOSE reference range brlzgnhxo64/02/2018. 83-Lqu-423310:03 Vitamin B12 673 pg/mL (Normal) Comments: [facility] [address] [place], [place], [address] Range: 211-911 20-Fgb-238271:03 Vitamin D,25 Hydroxy Comments: [facility] [address] [place], [place], [address] Vitamin D 25-OH 30.2 ng/mL (Normal) Range: 29.95-100.01 Comments: Vitamin D 25(OH) Status Range Deficiency <20 ng/mL (50nmol/L) Insuffciency 20 - 30 ng/mL (50 - 75 nmol/L) Sufficiency 30 - 100 ng/mL (75 - 250 nmol/L) Toxicity >100 ng/mL (>250 nmol/L) 52-Olz-178720:24 URINE ANURAG CULTURE-TYSON COL Comments: PATIENT NOT FASTINGPERFORMED BY: [facility] Zmqjyw6472 [facility] [id number] Information: SRC:UC COUNT (27127) Antimicrobial MIHEAD (Normal) Comments: S = Susceptible; [...] and Proteusmirabilis. Urine Final report Culture,Comprehensive (Abnormal) 63-Jlc-184822:03 Urinalysis, Office (44316) UA - LEUKOCYTE ESTERASE Large (Normal) UA - NITRITE Negative (Normal) URINE UROBILINGN TYSON TIMED Normal mg/dL (Normal) UA - PROTEIN 100 mg/dL (Normal) UA - PH 6 (Abnormal) UA - SPECIFIC GRAVITY 1.030 (Abnormal) UA - KETONES Negative mg/dL (Normal) UA - BILIRUBIN Negative (Normal) UA - GLUCOSE Negative (Normal) 0-Iqe-561749:30 URINE ANURAG CULTURE-IDENTIFICATN Comments: PATIENT NOT FASTINGPERFORMED BY: [facility] Shwwtt5010 [facility] [id number] Information: SRC: (18645) Antimicrobial MIHEAD (Normal) Comments: S = Susceptible; [...] and Proteusmirabilis. Urine Final report Culture,Comprehensive (Abnormal) 8-Yqk-266931:22 Urinalysis, Office (25713) UA - LEUKOCYTE ESTERASE Large (Normal) UA - NITRITE Positive (Normal) URINE UROBILINGN TYSON TIMED Normal mg/dL (Normal) UA - PROTEIN 300 mg/dL (Normal) UA - PH 6 (Abnormal) UA - BLOOD Hemolyzed Large (Normal) UA - SPECIFIC GRAVITY 1.030 (Abnormal) UA - KETONES Negative mg/dL (Normal) UA - BILIRUBIN Negative (Normal) UA - GLUCOSE Negative (Normal) 1-Ebe-969208:06 CBC W/Diff, Automated Comments: Reason for Laboratory Test [facility] [address] [place], [address] Absolute Lymph 1.45 {X10_3/ul} (Normal) [...] 4.2-5.4 WBC 6.8 K/mm3 (Normal) Range: 4.4-11.0 5-Dhu-278427:06 Comprehensive Metabolic Profil Comments: Reason for Laboratory Test OVSerial Specimen #1, #2 or #3? [facility] [address], [address] GAP 8 (Normal) Range: 5-15 CO2 22.0 [...] Comments: Please note revised GLUCOSE reference range ovwtnqfax72/02/2018. 6-Ill-126862:06 LDH 141 U/L (Normal) Comments: Reason for Laboratory Test OVSerial Specimen #1, #2 or #3? [facility] [address] [place], [address] Range: 84-246 59-Poe-628424:23 Metabolic Panel, Basic Comments: assure GFR is in this [panel if not do separately; PATIENT NOT FASTINGPERFORMED BY: [facility] Gmbgfn1806 [facility] [id number] (89698) Calcium 9.9 mg/dL (Normal) Range: 8.7-10.3 Carbon [...] 8-27 Glucose 80 mg/dL (Normal) Range: 65-99 66-Pnl-664999:48 Metabolic Panel, Comprehensive Comments: PATIENT NOT FASTINGPERFORMED BY: NUVIA [facility] Jpdyee7169 [facility] [id number] (27587) ALT (SGPT) 8 [iU]/L (Normal) Range: 0-32 [...] 8-27 Glucose 89 mg/dL (Normal) Range: 65-99 64-Iyh-257017:48 C-REACTIVE PROTEIN (26334) Comments: PATIENT NOT FASTINGPERFORMED BY: [facility] Pbbrhv2788 [facility] [id number] C-Reactive Protein, Quant 5.1 mg/L (Abnormal) Range: 0.0-4.9 :48 Sed Rate Erythrocyte (58156) Comments: PATIENT NOT FASTINGPERFORMED BY: [facility] CenterFnqaaf4402 [facility] [id number] Sedimentation Rate-Westergren 4 mm/h (Normal) Range: 0-40 :48 CBC W/AUTO DIFF WBC (78876) Comments: PATIENT NOT FASTINGPERFORMED BY: [facility] Ebcwnk5582 [facility] [id number] Immature Grans (Abs) 0.0 {x10E3/uL} (Normal) Range: [...] 3.77-5.28 WBC 10.3 {x10E3/uL} (Normal) Range: 3.4-10.8 03-Ebi-748725:59 CBC-Complete Blood Cnt No Diff Comments: [facility] [address] [place], [phone](727) MPV 10.2 fL (Normal) Range: 6.2-12.0 PLT [...] 4.2-5.4 WBC 6.2 K/mm3 (Normal) Range: 4.4-11.0 26-Lyg-188747:59 Magnesium Comments: [address] [place], [address] MG 2.1 mg/dL (Normal) Range: 1.6-2.6 09-Eiz-179682:59 Microalb:Creat Ratio,Random UR Comments: [facility] [address] [place], [address] MALB:CREAT 27.0 {mg/g_CRE} (Normal) MICROALBUMIN,UR 44.5 mg/L (Normal) UR CREAT 165.00 mg/dL (Normal) 27-Klw-898935:59 PTHIN 32.8 pg/mL (Normal) Comments: [place] [address] [place], [address] Range: 18.4-80.1 78-Ayl-768477:59 Renal Profile Comments: [address] [place], [address] CO2 21.0 mmol/L (Normal) Range: 21.0-32.0 CL [...] Comments: Please note revised GLUCOSE reference range ydlckkqbr67/02/2018. 00-Djt-086389:59 Vitamin D,25 Hydroxy Comments: [facility] [address] [place], [address] Vitamin D 25-OH 35.5 ng/mL (Normal) Range: 29.95-100.01 Comments: Vitamin D 25(OH) Status Range Deficiency <20 ng/mL (50nmol/L) Insuffciency 20 - 30 ng/mL (50 - 75 nmol/L) Sufficiency 30 - 100 ng/mL (75 - 250 nmol/L) Toxicity >100 ng/mL (>250 nmol/L) 3-Rbc-294630:33 CBC-Complete Blood Cnt No Diff Comments: [facility] [address] [place], [address] MPV 10.1 fL (Normal) Range: 6.2-12.0 PLT [...] 4.2-5.4 WBC 6.4 K/mm3 (Normal) Range: 4.4-11.0 3-Oyg-393387:33 Magnesium Comments: [facility] [address] [place], [address](067) MG 1.8 mg/dL (Normal) Range: 1.8-2.4 0-Gsv-778652:33 Microalb:Creat Ratio,Random UR Comments: [facility] [address] [place], [address] MALB:CREAT 24.8 {mg/g_CRE} (Normal) MICROALBUMIN,UR 41.4 mg/L (Normal) UR CREAT 167.00 mg/dL (Normal) 9-Pcf-316079:33 PTHIN 8.3 pg/mL (Abnormal) Comments: [facility] [address] [place], [address] Range: 18.4-80.1 Comments: Please Note: PTH INTACT METHOD AND REFERENCE RANGE CHANGEEffective 07/19/2017. 1-Ien-854689:33 Renal Profile Comments: [facility] [address] [place], [address] CO2 25.0 mmol/L (Normal) Range: 21.0-32.0 CL [...] 7-18 GLU 89 mg/dL (Normal) Range: 70-110 4-Olm-335800:33 Vitamin D,25 Hydroxy Comments: [facility] Eteeztphew3924 [facility] [place], [place], [address] Vitamin D 25-OH 50.6 ng/mL (Normal) Comments: Vitamin D 25(OH) Status Range Deficiency <20 ng/mL (50nmol/L) Insuffciency 20 - 30 ng/mL (50 - 75 nmol/L) Sufficiency 30 - 100 ng/mL (75 - 250 nmol/L) Toxicity >100 ng/mL (>250 nmol/L) 7-Avk-020301:30 CBC W/Diff, Automated Comments: [facility] Ccpyrtpjxr4091 [facility] [place], [place], [address] ; Ungur Absolute Lymph 1.75 {X10_3/ul} (Normal) [...] 4.2-5.4 WBC 5.6 K/mm3 (Normal) Range: 4.4-11.0 5-Szs-454986:30 Prothrombin Time w/INR Comments: [facility] Xpwjyxorqx7414 [place], [place], [address] INR 1.3 (Normal) PROTIME 15.2 s (Abnormal) Range: 11.7-14.9 05-Jsd-162780:49 CBC W/Diff, Automated Comments: [facility] [address] [place], [place], [address] Absolute Lymph 1.42 {X10_3/ul} (Normal) Range: 0.83-4.51 [...] Time w/INR Comments: Reason for Laboratory Test [facility] Bjoihwjfnw0669 [facility] [place]. [place], [place], [address] INR 1.1 (Normal) PROTIME 13.6 s (Normal) Range: 11.7-14.9 :06 MAGNESIUM (99139) Comments: PATIENT NOT FASTINGPERFORMED BY: [facility] Wlqzpw1731 [facility] [id number] Magnesium, Serum 1.8 mg/dL (Normal) Range: 1.6-2.3 44-Lzw-122793:06 METABOLIC PANEL, COMPREHENSIVE Comments: PATIENT NOT FASTINGPERFORMED BY: [facility] Bnwlzg8525 [facility] [id number] (30641) ALT (SGPT) 11 [iU]/L (Normal) Range: 0-32 [...] Glucose, Serum 109 mg/dL (Abnormal) Range: 65-99 57-Drv-796495:53 Metabolic Panel, Basic Comments: PATIENT NOT FASTINGPERFORMED BY: [facility] Bhmyzd1732 [facility] [id number] (96589) Calcium, Serum 8.7 mg/dL (Normal) Range: 8.7-10.3 [...] Glucose, Serum 80 mg/dL (Normal) Range: 65-99 31-Bir-381094:32 Basic Metabolic Profile (BMP) Comments: Order Date: 07/11/17Order Info: 0667-1 - BMPClerm[facility] [address]hbmpab[address] [place], [place], [address] GAP 9 (Normal) Range: 5-15 CO2 26.0 [...] 7-18 GLU 78 mg/dL (Normal) Range: 70-110 69-Mcf-246975:32 Prothrombin Time w/INR Comments: Order Date: 07/11/17Order Info: [id number] - PTClerm[facility] [address]ls[address]zzu[address] [place], [place], [address] INR 1.3 (Normal) PROTIME 15.4 s (Abnormal) Range: 11.7-14.9 3-Nlw-935648:52 CBC W/Diff, Automated Comments: Reason for Laboratory Test .[facility] [address]toph[address] [place], [place], [address] Absolute Lymph 0.61 {X10_3/ul} (Abnormal) Range: 0.83-4.51 [...] 4.2-5.4 WBC 10.7 K/mm3 (Normal) Range: 4.4-11.0 0-Dam-827903:52 Comprehensive Metabolic Profil Comments: Reason for Laboratory Test .Serial Specimen #1, #2 or #3? [facility] R[address]avvetvq[address] [place], [place], [address] GAP 12 (Normal) Range: 5-15 CO2 24.0 [...] 7-18 GLU 69 mg/dL (Abnormal) Range: 70-110 2-Tdn-845927:52 LDH 214 U/L (Normal) Comments: Reason for Laboratory Test .Serial Specimen #1, #2 or #3? 1[facility] Amvvvrrtfu3759 [facility] [place], [place], [address] Range: 84-246 0-Baz-758523:13 Prothrombin Time w/INR Comments: Reason for Laboratory Test [facility]INCl[facility] Cdrsdhytix5228 [facility] [place], [place], [address] INR 1.9 (Normal) PROTIME 21.1 s (Abnormal) Range: 11.7-14.9 01-Rky-616310:00 Basic Metabolic Profile (BMP) Comments: [facility] [address] [place], [address] GAP 10 (Normal) Range: 5-15 CO2 20.0 [...] 7-18 GLU 80 mg/dL (Normal) Range: 70-110 42-Kll-651194:00 CBC W/Diff, Automated Comments: [facility] [address]qwmzb[address] [place], [place], [address] Absolute Lymph 0.82 {X10_3/ul} (Abnormal) Range: 0.83-4.51 [...] 4.2-5.4 WBC 16.6 K/mm3 (Abnormal) Range: 4.4-11.0 25-Pye-707943:00 Prothrombin Time w/INR Comments: [facility] [address] [place], [address] INR 2.3 (Normal) PROTIME 24.0 s (Abnormal) Range: 11.7-14.9 02-Kdy-101470:45 Basic Metabolic Profile (BMP) Comments: 'TROP' Serial specimen #1, #2, #3, or #4: [facility] Aqsbnfmius69[address] [place], [address] GAP 13 (Normal) Range: 5-15 CO2 18.0 [...] 7-18 GLU 92 mg/dL (Normal) Range: 70-110 97-Uzk-352550:45 CBC W/Diff, Automated Comments: [facility] [address] [place], [address] SMEAR COMMENT SCANNED (Normal) Absolute Lymph [...] 4.2-5.4 WBC 14.5 K/mm3 (Abnormal) Range: 4.4-11.0 99-Esd-362915:45 Lipase Comments: 'TROP' Serial specimen #1, #2, #3, or #4: [address] [place] [address] Nzoou[address]49 [place], [address] LIPASE 189 U/L (Normal) Range: 73-393 24-Nte-163185:45 Liver Profile Comments: 'TROP' Serial specimen #1, #2, #3, or #4: [address] [place] [address] Pwmuwkcggt6635 [place], [address] D BILI 0.13 mg/dL (Normal) [...] T PROT 6.8 g/dL (Normal) Range: 6.4-8.2 26-Zhp-702658:45 Troponin-I Comments: 'TROP' Serial specimen #1, #2, #3, or #4: 1[facility] Ofajzwloqb15[address] [place], [address] TROPONIN-I < 0.02 ng/mL Comments: TROPONIN-I EXPECTED VALUES <0.05 NEGATIVE 0.06 - 0.59 AT RISK OF MT > OR = 0.60 SUGGEST MT (Normal) LDH 156 [iU]/L (Normal) Comments: PATIENT NOT FASTINGPERFORMED BY: Sales Beach70 [facility] [id number] Information: HARD DRAW 4:49 Range: 119-226 Written Authorization WAR (Normal) Comments: PATIENT NOT FASTINGPERFORMED BY: NextVR [facility] [id number] 4:49 Comments: Written Authorization Received.Authorization received from Rambo STEWARD [id number] by Supriya Cutler 35-Bgo-937869:49 FIBRIN DEGRAD D-DIM TYSON Comments: PATIENT NOT FASTINGPERFORMED BY: [address] [facility] [id number] (63751) D-Dimer 0.75 {mg/L_FEU} (Abnormal) Range: 0.00-0.49 Comments: According to the assay central supply assistant's published package insert, anormal (<0.50 mg/L FEU) D-dimer result in conjunction with a non-highclinical probability assessment, excludes deep vein thrombosis (D VT)and pulmonary embolism (PE) with high sensitivity. .D-dimer values increase with age and this can make VTE exclusion ofan older pop ulation difficult. To address this, the [employer], based on best available evidence [...] 0.80 mg/L FEU. :49 CREATINE KINASE TOTAL (64286) Comments: PATIENT NOT FASTINGPERFORMED BY: CB [facility] Xpaakv1519 [address]iz RoadDublin [place] [id number] Creatine Kinase,Total,Serum 75 U/L (Normal) Range: 24-173 :49 Troponin I (95007) Comments: PATIENT NOT FASTINGPERFORMED BY: CB [facility] Vgnmor2014 [address]iz RoadDublin [place] [id number] Troponin I <0.01 ng/mL (Normal) Range: 0.00-0.04 :49 CALCIFIDIOL (69555) VIT D 25 Comments: PATIENT NOT FASTINGPERFORMED BY: CB [facility] Hijpup8976 Paiz RoadDublin [place] [id number] Vitamin D, 25-Hydroxy 44.5 ng/mL (Normal) Range: 30.0-100.0 Comments: Vitamin D deficiency has been defined by the [place] ofSouthwest General Health Centercine and an Endocrine Society practice guideline as alevel of serum 25-OH vitamin D less than 20 ng/mL (1,2).The Endocrine Society went on to further define vitamin Dinsufficiency as a level between 21 and 29 ng/mL (2).1. IOM ([place] of Medicine). 2010. Dietary reference intakes for calcium and D. [place]: The National Academies Press.2. Lluvia MF, Wade WING, Tanner VENEGAS, et al. Evaluation, treatment, and prevention of vitamin D deficiency: an Endocrine Society clinical practice guideline. JCEM. 2010; 96(7):1911-30. :49 Folate (59416) Comments: PATIENT NOT FASTINGPERFORMED BY: CB [facility] Svkzcl1493 [address]iz RoadDublin [place] [id number] Folate (Folic Acid), Serum >20.0 ng/mL (Normal) Comments: A serum folate concentration of less than 3.1 ng/mL isconsidered to represent clinical deficiency. :49 VITAMIN B-12 (CYANOCOBALAMIN) Comments: PATIENT NOT FASTINGPERFORMED BY: [facility] Zfcqrr1733 [address] [facility] [id number] (29449) Vitamin B12 1257 pg/mL (Abnormal) Range: 211-946 :49 TSH (05885) Comments: PATIENT NOT FASTINGPERFORMED BY: [facility] Oeoagy3687 [address] [facility] [place] [id number] TSH 3.740 {uIU/mL} (Normal) Range: 0.450-4.500 :49 SED RATE ERYTHROCYTE (25357) Comments: PATIENT NOT FASTINGPERFORMED BY: [facility] Ucckwt6840 [address] [facility] [id number] Sedimentation Rate-Westergren 68 mm/h (Abnormal) Range: 0-40 :49 METABOLIC PANEL, Comments: PATIENT NOT FASTINGPERFORMED BY: [facility] Vedcig9018 [facility] [id number] Information: HARD DRAW COMPREHENSIVE (89981) ALT (SGPT) 13 [iU]/L (Normal) Range: 0-32 [...] mg/dL (Normal) Range: 65-99 :49 C-REACTIVE PROTEIN (32410) Comments: PATIENT NOT FASTINGPERFORMED BY: LabCoJFK Medical CenterEmhdcp9988 [facility] [id number] C-Reactive Protein, Quant 39.7 mg/L (Abnormal) Range: 0.0-4.9 :49 CBC (AUTO) (52116) Comments: PATIENT NOT FASTINGPERFORMED BY: LabCoJFK Medical CenterQzxcpy0533 [facility] [id number] Platelets 289 {x10E3/uL} (Normal) Range: 150-379 RDW [...] Test [facility] Zgctazwaxx1040 [place], [address] INR 3.0 (Normal) PROTIME 30.2 s (Abnormal) Range: 11.7-14.9 16-Rwj-304421:29 URINE ANURAG CULTURE-IDENTIFICATN Comments: PATIENT NOT FASTINGPERFORMED BY: [facility] Xhjmay6911 [address] [place] [id number] Information: SRC:UC (88796) Result 1 MUG (Normal) Comments: Mixed urogenital flora1,000 Colonies/mL Urine Culture,Comprehensive Final report (Normal) 74-Epr-650672:12 Urinalysis, Office (63079) UA - LEUKOCYTE ESTERASE Negative (Normal) UA - NITRITE Negative (Normal) URINE UROBILINGN TYSON TIMED Normal mg/dL (Normal) UA - PROTEIN 30 mg/dL (Normal) UA - PH 6 (Abnormal) UA - BLOOD non-hemolyzed trace (Normal) UA - SPECIFIC GRAVITY 1.020 (Normal) UA - KETONES Negative mg/dL (Normal) UA - BILIRUBIN Negative (Normal) UA - GLUCOSE Negative (Normal) 26-Zua-512425:45 CBC W/Diff, Auto - EPLAB Comments: At [facility] Outpatient [facility] Medical Oncologypatients receive CBC w/auto Differential ONLY. Physicianwill place an order for a manual differential or Pathologistreview at his discretion. [facility] OUTPATIENT [facility]. [address] [place] [address] [address] INSULATING MACHINE OPERATOR: OMERO ZAMUDIO DO PH:[phone] County Hospital [address]ytbqpnhmr18[address] [place], [address] Absolute Lymph 1.02 {X10_3/uL} (Normal) [...] 4.2-5.4 WBC 6.9 K/mm3 (Normal) Range: 4.4-11.0 71-Jkk-822389:32 LDH 182 U/L (Normal) Comments: Reason for Laboratory Test OFFICE VISIT/ROUTINESerial Specimen #1, #2 or #3? 1[facility] [address]tawcqj[address], [address] Range: 84-246 38-Run-200050:32 Prothrombin Time w/INR Comments: Reason for Laboratory Test ROUTINE MEDICATION CHECKWWyandot Memorial Hospital Qbreflopqr7043 [address], [address] INR 2.6 (Normal) PROTIME 27.2 s (Abnormal) Range: 11.7-14.9 29-Pue-931688:24 CBC W/Diff, Auto - EPLAB Comments: Reason for Laboratory Test .At [facility] Outpatient [facility] Medical Oncologypatients receive CBC w/auto Differential ONLY. Physicianwill place an order for a manual differential or Pathologistrev Only iew at his discretion. [facility] OUTPATIENT [facility]. [address] [place] [address] [address] INSULATING MACHINE OPERATOR: OMERO ZAMUDIO DO PH:[phone] Hospital W[address]zzqwlob[address] [place], [address] Absolute Lymph 2.94 {X10_3/uL} (Normal) [...] 4.2-5.4 WBC 8.3 K/mm3 (Normal) Range: 4.4-11.0 71-Qaj-650416:24 Comprehensive Metabolic Profil Comments: Reason for Laboratory Test .[facility] Bvdhthesgs5561 [address] [facility]. [place], [place], [address] GAP 7 (Normal) Range: 5-15 CO2 19.0 [...] 7-18 GLU 77 mg/dL (Normal) Range: 70-110 5-Mvj-855606:31 CBC W/Diff, Auto - EPLAB Only Comments: [facility] Dbixvogudg[address] [place], [place], [address] Absolute Lymph 1.22 {X10_3/uL} (Normal) Range: 0.83-4.51 [...] 4.2-5.4 WBC 5.8 K/mm3 (Normal) Range: 4.4-11.0 9-Enz-690629:31 Ferritin Comments: [facility] Kneuiaosts[address] [place], [address] FERRITIN 77 ng/mL (Normal) Range: 8-252 :31 Iron+Iron Binding Capacity Comments: [address] [place], [address] IRON SATURATION 20.8 % (Normal) Range: 15.0-55.0 IRON 61 ug/dL (Normal) Range: 50-170 TIBC 293 ug/dL (Normal) Range: 250-450 :31 Magnesium Comments: [address] [place], [address] MG 1.9 mg/dL (Normal) Range: 1.8-2.4 :31 Microalb:Creat Ratio,Random UR Comments: [address] [place], [address] MALB:CREAT 15.2 {mg/g_CRE} (Normal) MICROALBUMIN,UR 19.0 mg/L (Normal) UR CREAT 125.00 mg/dL (Normal) 3-Pez-541954:31 PTH,INTACT Comments: [address] [place] [place], [address] PTH,Intact 8 pg/mL (Abnormal) Range: 14-72 1-Afm-375822:31 Renal Profile Comments: [address] [place] [place], [address] CO2 21.0 [...] Range: 70-110 :31 Vitamin D,25 Hydroxy Comments: [facility] [address] [place], [place], [address] Vitamin D 25-OH 33.0 ng/mL (Normal) Comments: Vitamin D 25(OH) Status Range Deficiency <20 ng/mL (50nmol/L) Insuffciency 20 - 30 ng/mL (50 - 75 nmol/L) Sufficiency 30 - 100 ng/mL (75 - 250 nmol/L) Toxicity >100 ng/mL (>250 nmol/L) :30 Prothrombin Time w/INR Comments: Reason for Laboratory Test .[facility] [address] [place], [place], [address] INR 3.0 (Normal) PROTIME 30.0 s (Abnormal) Range: 11.7-14.9 :19 Basic Metabolic Profile (BMP) Comments: [facility] [address]qhuvc[address] [place], [place], [address] GAP 6 (Normal) Range: 5-15 CO2 23.0 [...] 7-18 GLU 101 mg/dL (Normal) Range: 70-110 1-Cdd-066708:17 Prothrombin Time w/INR Comments: Reason for Laboratory Test .[facility] [address] [place], [address] INR 2.3 (Normal) PROTIME 24.3 s (Abnormal) Range: 11.7-14.9 41-Usc-010470:18 Prothrombin Time w/INR Comments: Send Results To: .Reason for Laboratory Test .[facility] Sal[address]lduz[address] [place], [address] INR 2.0 (Normal) PROTIME 21.7 s (Abnormal) Range: 11.7-14.9 8-Xwc-884719:48 Prothrombin Time w/INR Comments: Reason for Laboratory Test OFFICE VISITWMichelle Ville [address] [place], [address] INR 1.6 (Normal) PROTIME 18.7 s (Abnormal) Range: 11.7-14.9 12-Crl-245742:08 CBC W/Diff, Automated Comments: [address] [place], [place], [address]26(143) Absolute Lymph 1.22 {X10_3/ul} (Normal) Range: 0.83-4.51 [...] 4.2-5.4 WBC 6.4 K/mm3 (Normal) Range: 4.4-11.0 37-Uyp-683168:01 Comprehensive Metabolic Profil Comments: Order Date: 10/25/16Order Info: 0786-1 - *CMP Complete Metabolic PanelWWyandot Memorial Hospital Irrgjmpzum4422 [place], [address] GAP 6 (Normal) Range: 5-15 CO2 23.0 [...] 7-18 GLU 83 mg/dL (Normal) Range: 70-110 00-Juv-101151:01 Prothrombin Time w/INR Comments: Order Date: 10/25/16Order Info: [id number] - *Prothrombin Time (PT)[facility] [address] [place], [place], [address] INR 1.4 (Normal) PROTIME 16.8 s (Abnormal) Range: 11.7-14.9 5-Dvv-560260:44 Prothrombin Time w/INR Comments: [facility] [address] [place], [place], [address] INR 1.8 (Normal) PROTIME 20.4 s (Abnormal) Range: 11.7-14.9 43-Nxg-107066:35 Prothrombin Time w/INR Comments: Reason for Laboratory Test ROUTINE CHECKReason for Laboratory Test ROUTINE CHECKReason for Laboratory Test ROUTINE CHECKWWyandot Memorial Hospital [address]gjvehf[address] [place], [place], [address] INR 1.9 (Normal) PROTIME 21.4 s (Abnormal) Range: 11.7-14.9 29-Gyj-177248:52 C-REACTIVE PROTEIN (29927) Comments: PATIENT NOT FASTINGPERFORMED BY: LabCoJFK Medical CenterMpkgvn9488 [facility] [id number] C-Reactive Protein, Quant 2.2 mg/L (Normal) Range: 0.0-4.9 88-Fvi-543340:52 SED RATE ERYTHROCYTE (26854) Comments: PATIENT NOT FASTINGPERFORMED BY: LabCoJFK Medical CenterEjtjuh5606 [facility] [id number] Sedimentation Rate-Westergren 51 mm/h (Abnormal) Range: 0-40 87-Voq-435712:52 CBC W/AUTO DIFF WBC (37223) Comments: PATIENT NOT FASTINGPERFORMED BY: LabCoJFK Medical CenterPjvwud3370 [facility] [id number] Immature Grans (Abs) 0.0 {x10E3/uL} (Normal) Range: [...] 3.77-5.28 WBC 5.4 {x10E3/uL} (Normal) Range: 3.4-10.8 0-Kdz-061496:30 Prothrombin Time w/INR Comments: Reason for Laboratory Test MONITORINGReason for Laboratory Test MONITORINGReason for Laboratory Test MONITORINGWWyandot Memorial Hospital [address]yqi[address] [place], [place], [address] INR 1.9 (Normal) PROTIME 21.4 s (Abnormal) Range: 11.7-14.9 1-Xhu-246785:22 CBC W/Diff, Auto - Comments: GETS CBCD,CRP,CMP,SED RATE,TSH,B12,VITDDR.REHA GETS CBCD,PROCRER,PTH,VITD,MG,RENALDR.NICHELLE GETS CBCD,CRP,CMP,SED RATE,TSH,B12,VITDDR.RHEA GETS CBCD,PROCRER,PTH,VITD,MG,RENALAt [facility] Outpatient Ce EPLAB Only nter [facility] Medical Oncologypatients receive CBC w/auto Differential ONLY. Physicianotf place an order for a manual differential or Pathologistreview at his discretion. [facility] OUTPATIENT [facility]. [address] [place] [address] [place] [address] INSULATING MACHINE OPERATOR: OMERO ZAMUDIO DO PH:[phone] County Hospital [address]rfwi[address] [place], [place], [address] Absolute Lymph 0.99 {X10_3/uL} (Normal) Range: 0.83-4.51 [...] 4.2-5.4 WBC 6.1 K/mm3 (Normal) Range: 4.4-11.0 4-Ztw-990135:22 Comprehensive Metabolic Comments: GETS CBCD,CRP,CMP,SED RATE,TSH,B12,VITDDR.WILKERSON GETS CBCD,PROCRER,PTH,VITD,MG,RENALWWyandot Memorial Hospital [address]ydhviw[address] [place], [place], [address] Profil GAP 9 (Normal) Range: 5-15 CO2 [...] 7-18 GLU 87 mg/dL (Normal) Range: 70-110 0-Jpr-888401:22 CRP Comments: GETS CBCD,CRP,CMP,SED RATE,TSH,B12,VITDDR.RHEA GETS CBCD,PROCRER,PTH,VITD,MG,[facility] [address] [place], [address] C-REACTIVE PROT 10.40 mg/L (Abnormal) Range: 0.0-3.0 Comments: C-Reactive Protein (CRP) provides useful information for thediagnosis, therapy and monitoring of inflammatory processesand associated diseases. For the evaluation of Relative Riskfor Cardiovascular Dise ase, a High Sensitivity CRP (HSCRP)should be ordered. 0-Ahd-822904:22 Erythrocyte Sed Rate Comments: GETS CBCD,CRP,CMP,SED RATE,TSH,B12,VITDDR.RHEA GETS CBCD,PROCRER,PTH,VITD,MG,[facility] [address] [place], [address] SED RATE 91 mm/h (Abnormal) Range: 0-30 9-Xbo-813592:22 Magnesium Comments: GETS CBCD,CRP,CMP,SED RATE,TSH,B12,VITDDR.RHEA GETS CBCD,PROCRER,PTH,VITD,MG,[facility] [address] [place], [address] MG 1.9 mg/dL (Normal) Range: 1.8-2.4 5-Waa-962819:22 Phosphorus Comments: GETS CBCD,CRP,CMP,SED RATE,TSH,B12,VITDDR.RHEA GETS CBCD,PROCRER,PTH,VITD,MG,[facility] [address] [place], [address] PHOS 3.5 mg/dL (Normal) Range: 2.5-4.9 4-Ydg-917960:22 Protein+Creatinine Comments: GETS CBCD,CRP,CMP,SED RATE,TSH,B12,VITDDR.RHEA GETS CBCD,PROCRER,PTH,VITD,MG,[facility] [address] [place], [address] Ratio,Urine PROT:CRE RATIO 383 {mg/g_CRE} (Abnormal) Range: 0-200 PROTEIN,UR.RAN. 61.3 mg/dL (Abnormal) UR CREAT 160.00 mg/dL (Normal) 4-Qfx-213126:22 PTH,INTACT Comments: GETS CBCD,CRP,CMP,SED RATE,TSH,B12,VITDDR.RHEA GETS CBCD,PROCRER,PTH,VITD,MG,[facility] [address] [place], [address] PTH,Intact 25 pg/mL (Normal) Range: 14-72 8-Ohg-849887:22 Thyroid Stim Hormone Comments: GETS CBCD,CRP,CMP,SED RATE,TSH,B12,VITDDR.RHEA GETS CBCD,PROCRER,PTH,VITD,MG,[facility] [address] [place], [address] (TSH) TSH 2.60 {uIU/mL} (Normal) Range: 0.358-3.74 8-Auf-983804:22 Vitamin B12 1286 pg/mL (Abnormal) Comments: GETS CBCD,CRP,CMP,SED RATE,TSH,B12,VITDDR.RHEA GETS CBCD,PROCRER,PTH,VITD,MG,[facility] [address] [place], [address] Range: 211-911 6-Hun-367677:22 Vitamin D,25 Hydroxy Comments: GETS CBCD,CRP,CMP,SED RATE,TSH,B12,VITDDR.RHEA GETS CBCD,PROCRER,PTH,VITD,MG,[facility] [address] [place], [address] Vitamin D 25-OH 45.2 ng/mL (Normal) Comments: Vitamin D 25(OH) Status Range Deficiency <20 ng/mL (50nmol/L) Insuffciency 20 - 30 ng/mL (50 - 75 nmol/L) Sufficiency 30 - 100 ng/mL (75 - 250 nmol/L) Toxicity >100 ng/mL (>250 nmol/L) 10-Fso-086577:40 Prothrombin Time w/INR Comments: Order Date: 06/20/16Order Info: 6301-6 - *Prothrombin Time (PT)Order Date: 06/20/16Order Info: 6301-6 - *Prothrombin Time (PT)Order Date: 06/20/16Order Info: 6301-6 - *Prothrombin Time (PT)[facility] [address] [place], [place], [address] INR 1.9 (Normal) PROTIME 21.3 s (Abnormal) Range: 11.7-14.9 98-Slp-572058:48 Prothrombin Time w/INR Comments: Order Date: 10/25/16Order Info: 6301-6 - *Prothrombin Time (PT)Order Date: 10/25/16Order Info: 6301-6 - *Prothrombin Time (PT)Order Date: 10/25/16Order Info: 6301-6 - *Prothrombin Time (PT)[facility] [address] [place], [place], [address] INR 2.1 (Normal) PROTIME 22.5 s (Abnormal) Range: 11.7-14.9 16-Kjc-037716:34 CBC W/Diff, Auto - EPLAB Comments: Order Date: 07/13/16Order Info: [id number] - *CBC w/Diff - oncology ONLYOrder Date: 07/13/16Order Info: 0184- 1E - *CBC w/Diff - oncology ONLYAt [facility] Outpatient [facility] Medical Oncologypatients Only receive CBC w/auto Differential ONLY. Physicianwill place an order for a manual differential or Pathologistreview at his discretion. [facility] OUTPATIENT [facility]. [address] [place] [address] [address] INSULATING MACHINE OPERATOR: OMERO ZAMUDIO DO PH:[phone] Date: 07/13/16Order Info: 0786-1 - *CMP Complete Metabolic PanelWWyandot [facility] [address] [place], [address] Absolute Lymph 1.04 {X10_3/uL} (Normal) Range: 0.83-4.51 [...] 4.2-5.4 WBC 5.3 K/mm3 (Normal) Range: 4.4-11.0 72-Iqf-[id number] Comprehensive Metabolic Profil Comments: Order Date: 07/13/16Order Info: 0786-1 - *CMP Complete Metabolic PanelFER, IRON, IBC ADDED PER FAXED ORDEROrder Date: 07/13/16Order Info: 0786-1 - *CMP Complete Metabolic PanelW[facility] [place] [address] [place], [place], [id number] GAP 6 (Normal) Range: 5-15 CO2 24.0 [...] <126 mg/dLsuggests IMPAIRED HOMEOSTASIS per A.D.A. criteria. 33-Puq-[id number] Ferritin Comments: Order Date: 07/13/16Order Info: 0786-1 - *CMP Complete Metabolic PanelFER, IRON, IBC ADDED PER FAXED ORDEROrder Date: 07/13/16Order Info: 0786-1 - *CMP Complete Metabolic PanelWSelect [facility] [place] [address] [place], [address] FERRITIN 134 ng/mL (Normal) Range: 8-252 74-Vyq-128816:34 Iron+Iron Binding Capacity Comments: Order Date: 07/13/16Order Info: 0786-1 - *CMP Complete Metabolic PanelFER, IRON, IBC ADDED PER FAXED ORDEROrder Date: 07/13/16Order Info: 0786-1 - *CMP Complete Metabolic PanelW[facility] [place] [address], [address] IRON SATURATION 21.6 % (Normal) Range: 15.0-55.0 IRON 60 ug/dL (Normal) Range: 50-170 TIBC 278 ug/dL (Normal) Range: 250-450 64-Scw-150192:34 Prothrombin Time w/INR Comments: Order Date: 09/27/16Order Info: 6301-6 - *Prothrombin Time (PT)Order Date: 09/27/16Order Info: 6301-6 - *Prothrombin Time (PT)Order Date: 07/13/16Order Info: 0786-1 - *CMP Complete Metabolic PanelWoos [facility] [address] [place], [id number] INR 1.8 (Normal) PROTIME 20.0 s (Abnormal) Range: 11.7-14.9 25-Lsn-691018:15 Prothrombin Time w/INR Comments: Order Date: 09/13/16Order Info: 6301-6 - *Prothrombin Time (PT)Comments: PT/INROrder Date: 09/13/16Order Info: 6301-6 - *Prothrombin Time (PT)Comments: PT/INROrder Date: 09/13/16Order Info: 6301-6 - * Prothrombin Time (PT)Comments: [facility] Vrqseksfqe3636 [address] [place], [phone] INR 2.0 (Normal) PROTIME 21.9 s (Abnormal) Range: 11.7-14.9 88-Uia-992874:23 Protein+Creatinine Ratio,Urine Comments: [facility] Kyigtyobwx7602 [address] [place], [phone] PROT:CRE RATIO 426 {mg/g_CRE} (Abnormal) Range: 0-200 PROTEIN,UR.RAN. 77.6 mg/dL (Abnormal) UR CREAT 182.00 mg/dL (Normal) 68-Hse-158514:20 Magnesium Comments: [facility] Rbzcolumuy8031 [address] [place], [phone] MG 1.8 mg/dL (Normal) Range: 1.8-2.4 10-Tfn-974516:20 PTH,INTACT Comments: [facility] Iwfjfditve3705 [address]. [place], [phone] PTH,Intact 112 pg/mL (Abnormal) Range: 14-72 36-Suj-999183:20 Renal Profile Comments: [facility] Ngwzxapnpx6172 [place], [address] CO2 20.0 mmol/L (Abnormal) Range: 21.0-32.0 CL [...] 7-18 GLU 75 mg/dL (Normal) Range: 70-110 66-Cbx-580754:20 Vitamin D,25 Hydroxy Comments: [facility] Cwcboimalj0902 [address]. [place], 8395[address] Vitamin D 25-OH 64.2 ng/mL (Normal) Comments: Vitamin D 25(OH) Status Range Deficiency <20 ng/mL (50nmol/L) Insuffciency 20 - 30 ng/mL (50 - 75 nmol/L) Sufficiency 30 - 100 ng/mL (75 - 250 nmol/L) Toxicity >100 ng/mL (>250 nmol/L) 74-Cxx-039448:11 Prothrombin Time w/INR Comments: Order Date: 08/30/16Order Info: 6301-6 - *Prothrombin Time (PT)Comments: PT/INROrder Date: 08/30/16Order Info: 6301-6 - *Prothrombin Time (PT)Comments: PT/INROrder Date: 08/30/16Order Info: 6301-6 - * Prothrombin Time (PT)Comments: [facility] Awcomkwsye[address] [place], [address] INR 2.0 (Normal) PROTIME 22.0 s (Abnormal) Range: 11.7-14.9 3-Adh-768711:04 Prothrombin Time w/INR Comments: Order Date: 08/30/16Order Info: 6301-6 - *Prothrombin Time (PT)Comments: PT/INROrder Date: 08/30/16Order Info: 6301-6 - *Prothrombin Time (PT)Comments: PT/INROrder Date: 08/30/16Order Info: 6301-6 - * Prothrombin Time (PT)Comments: PT/[facility] [address]mfnwznb[address] [place], [address] INR 2.7 (Normal) PROTIME 27.5 s (Abnormal) Range: 11.7-14.9 43-Wjd-308528:14 Prothrombin Time w/INR Comments: Order Date: 08/16/16Order Info: 6301-6 - *Prothrombin Time (PT)Order Date: 08/16/16Order Info: 6301-6 - *Prothrombin Time (PT)Order Date: 08/16/16Order Info: 6301-6 - *Prothrombin Time (PT)[facility] Wvzowhnwmr87[address], [address] INR 3.7 (Abnormal) Comments: CRITICAL VALUE REPEATED AND VERIFIED. CALLED TO RAUL AWOOSANGITA [facility] RQQUDTIC24/31/17 1442 Genevieve Shin.RESULTS READ BACK BY SAME . PROTIME 35.5 s (Abnormal) Range: 11.7-14.9 33-Zwb-923177:29 Prothrombin Time w/INR Comments: Order Date: 08/10/16Order Info: 6301-6 - *Prothrombin Time (PT)Comments: PT/INROrder Date: 08/10/16Order Info: 6301-6 - *Prothrombin Time (PT)Comments: PT/INROrder Date: 08/10/16Order Info: 6301-6 - * Prothrombin Time (PT)Comments: [facility] Mjgkzfveku37[address], [address] INR 2.4 (Normal) PROTIME 25.5 s (Abnormal) Range: 11.7-14.9 93-Aty-164065:12 Prothrombin Time w/INR Comments: Order Date: 08/02/16Order Info: 6301-6 - *Prothrombin Time (PT)Order Date: 08/02/16Order Info: 6301-6 - *Prothrombin Time (PT)Order Date: 08/02/16Order Info: 6301-6 - *Prothrombin Time (PT)[facility] Avqzgooztz[address], [address] INR 2.3 (Normal) PROTIME 24.3 s (Abnormal) Range: 11.7-14.9 63-Oja-911949:35 CBC W/Diff, Auto - EPLAB Comments: Order Date: 07/13/16Order Info: 0184-1E - *CBC w/Diff - oncology ONLYOrder Date: 07/13/16Order Info: 0184- 1E - *CBC w/Diff - oncology ONLYAt [facility] Out[facility] Medical Oncologypatients Only receive CBC w/auto Differential ONLY. Physicianwill place an order for a manual differential or Pathologistreview at his discretion. [facility] OUTPATIENT [facility]. [address] [place] 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 [place], [place], [phone] Absolute Lymph 1.16 {X10_3/uL} (Normal) Range: 0.83-4.51 [...] 4.2-5.4 WBC 6.5 K/mm3 (Normal) Range: 4.4-11.0 62-Npg-501836:35 Comprehensive Metabolic Profil Comments: Order Date: 07/13/16Order Info: 0786-1 - *CMP Complete Metabolic PanelOrder Date: 07/13/16Order Info: 0786-1 - *CMP Complete Metabolic PanelWWyandot Memorial Hospital Gqlwzqolaa5954 [place], [address] GAP 9 (Normal) Range: 5-15 CO2 21.0 [...] 7-18 GLU 78 mg/dL (Normal) Range: 70-110 75-Ycb-939984:35 Prothrombin Time w/INR Comments: Order Date: 07/13/16Order Info: 6301-6 - *PT/INROrder Date: 07/13/16Order Info: 6301-6 - *PT/INROrder Date: 07/13/16Order Info: 0786-1 - *CMP Complete Metabolic PanelWWyandot Memorial Hospital Laborat gxn[address] [place], [place], [address](266) INR 2.1 (Normal) PROTIME 22.8 s (Abnormal) Range: 11.7-14.9 92-Biw-620828:21 Ferritin Comments: [facility] Tom[address] [place], [place], [address](349) FERRITIN 196 ng/mL (Normal) Range: 8-252 98-Ejz-629326:21 Iron+Iron Binding Capacity Comments: [facility] Tmfrcgkgfw8794 [facility] [address] [place], [place], [address] IRON SATURATION 18.8 % (Normal) Range: 15.0-55.0 IRON 48 ug/dL (Abnormal) Range: 50-170 TIBC 256 ug/dL (Normal) Range: 250-450 50-Sii-359770:48 CBC, PLATELETS & AUT DIFF Comments: Send to Je Parra; PATIENT NOT FASTINGPERFORMED BY: [facility] Dnhkgi7972 [address] [place] [id number] ([address]) Immature Grans (Abs) 0.0 {x10E3/uL} (Normal) Range: [...] 3.77-5.28 WBC 6.4 {x10E3/uL} (Normal) Range: 3.4-10.8 50-Tsl-685953:48 METABOLIC PANEL, COMPREHENSIVE Comments: Send to Je Parra; PATIENT NOT FASTINGPERFORMED BY: LabCoJFK Medical CenterDmgjaw9290 [facility] [id number] (09885) ALT (SGPT) 7 [iU]/L (Normal) Range: 0-32 [...] Glucose, Serum 92 mg/dL (Normal) Range: 65-99 01-Ikq-465418:48 PT (Prothrobim Time) (00451) Comments: Send to Dorinda Parra; PATIENT NOT FASTINGPERFORMED BY: LabCoJFK Medical CenterAsaxpn4216 [facility] [id number] Prothrombin Time 34.0 {sec} (Abnormal) Range: 9.1-12.0 INR 3.4 (Abnormal) Range: 0.8-1.2 Comments: Reference interval is for non-anticoagulated patients. . Suggested INR therapeutic range for Vitamin K anta gonist therapy: Standard Dose (moderate intensity therapeutic range): 2.0 - 3.0 Higher intensity therapeutic range 2.5 - 3.5 23-Izp-170102:37 Basic Metabolic Profile (BMP) Comments: Order Date: 07/12/16Order Info: 0667-1 - BMPOrder Info: 87076-8 - IBCOrder Info: 2276-4 - FEROrder Date: 07/12/16Order Info: 2276-4 - FERComments: to Dr. Washington [facility] Oh[address]oy[address] [place], [place], [address] GAP 8 (Normal) Range: 5-15 CO2 20.0 [...] 7-18 GLU 104 mg/dL (Normal) Range: 70-110 62-Pam-713609:37 CBC W/Diff, Automated Comments: Order Date: 07/12/16Order Info: 0184-1 - CBCDComments: to Dr. Felix Mohamud Date: 07/12/16Order Info: 0184- 1 - CBCDComments: to Dr. Felix Mohamud Date: 07/12/16Order Info: 2276-4 - FERComments : to Dr. Washington [facility] Tgclznsfac2447 [place], [place], [address] Absolute Lymph 1.04 {X10_3/ul} (Normal) Range: 0.83-4.51 [...] Date: 07/12/16Order Info: 0667-1 - BMPOrder Info: 82190-3 - IBCOrder Info: 2276-4 - FEROrder Date: 07/12/16Order Info: 2276-4 - FERComments: to Dr. Washington [facility] fxza17[address], [address] IRON 40 ug/dL (Abnormal) Range: 50-170 IRON SATURATION 12.5 % (Abnormal) Range: 15.0-55.0 TIBC 321 ug/dL (Normal) Range: 250-450 16-Kfg-702905:37 Prothrombin Time w/INR Comments: Order Date: 07/12/16Order Info: 6301-6 - PTOrder Date: 07/12/16Order Info: 6301-6 - PTOrder Date: 07/12/16Order Info: 2276-4 - [facility] Sqlzzbroav0464 [place], [address] INR 2.2 (Normal) PROTIME 24.0 s (Abnormal) Range: 11.7-14.9 05-Uzp-695922:37 FERRITIN (06098) Comments: to Dr. Felix Parra; Order Date: 07/12/16Order Info: 0667-1 - BMPOrder Info: 66183-7 - IBCOrder Info: 2276-4 - FEROrder Date: 07/12/16Order Info: 2276-4 - FERComments: [facility] Dr. [facility] Bstfcisctj[address] [place], [address] FERRITIN 311 ng/mL (Abnormal) Range: 8-252 16-Wqd-660066:50 Urinalysis, Complete Comments: Order Date: 06/17/16Has pt arrived? YOrder Date: 06/17/16Has pt arrived? YHow was Urine Obtained? POLYSOMNOGRAPHIC TECHNOLOGIST TO [facility] J[address]oyzpwoie[address] [place], [address] MUCUS, URINE 0 SEEN {/hpf} [...] CLARITY Sl. Cloudy (Normal) COLOR Yellow (Normal) 22-Fvi-330788:15 Partial Thromboplast Time Comments: REDRAW. PREVIOUS SPECIMEN REJECTED DUE TOCONTAMINATED WITH HEPARIN FROM PORT DRAW. 06/17/16 Essence Reyes.CRITICAL VALUE REPEATED AND VERIFIED. CALLED TO [id number]/18/16 1255 Raul RoqueR ESULTS READ BACK BY SAME .[facility] Cpjpcnrjfm[address] [place], [address] PTT 71.1 s (Abnormal) Range: 24.1-36.2 60-Dlc-712885:15 Prothrombin Time w/INR Comments: REDRAW. PREVIOUS SPECIMEN REJECTED DUE TOCONTAMINATED WITH HEPARIN FROM PORT DRAW. 06/17/16 Essence Gaonas.CRITICAL VALUE REPEATED AND VERIFIED. CALLED TO YBCUQUEUNTNUC76/18/16 1255 Raul Washington ESULTS READ BACK BY SAME .[facility] Amipnvswzw9[address] [place], [address] INR 4.0 (Abnormal) PROTIME 37.5 s (Abnormal) Range: 11.7-14.9 51-Imv-442525:30 Basic Metabolic Profile (BMP) Comments: [facility] Pybewjgotk[address], [address] GAP 15 (Normal) Range: 5-15 [...] 7-18 GLU 92 mg/dL (Normal) Range: 70-110 25-Wrp-638366:30 CBC W/Diff, Automated Comments: [facility] Znxlhfwtlv0878 [address], [address] Absolute Lymph 0.82 {X10_3/ul} (Abnormal) [...] 4.2-5.4 WBC 6.3 K/mm3 (Normal) Range: 4.4-11.0 28-Zdc-762677:29 URINE ANURAG CULTURE-IDENTIFICATN Comments: PATIENT NOT FASTINGPERFORMED BY: [facility]6370 [facility] [id number] Information: SRC: ([id number]) Result 1 Lactobacillus species Comments: 50,000-100,000 colony forming units per mLSusceptibility not normally performed on this organism. (Normal) Urine Final report (Normal) Culture,Comprehensive 88-Xpq-004949:02 Urinalysis, Office (08559) UA - LEUKOCYTE ESTERASE Large (Normal) UA - NITRITE Negative (Normal) URINE UROBILINGN TYSON TIMED 2 mg/dL (Normal) UA - PROTEIN 100 mg/dL (Normal) UA - PH 6.0 (Normal) UA - BLOOD Hemolyzed Trace (Normal) UA - SPECIFIC GRAVITY 1.025 (Normal) UA - KETONES Negative mg/dL (Normal) UA - BILIRUBIN Negative (Normal) UA - GLUCOSE Negative (Normal) 08-Lhh-004482:24 Prothrombin Time w/INR Comments: CRITICAL VALUE REPEATED AND VERIFIED. CALLED TO 06/16/16 1438 Raul Watts.RESULTS READ BACK BY MARTA .[facility] [address] [place], [place], [address] INR 3.8 (Abnormal) Comments: CRITICAL VALUE REPEATED AND VERIFIED. CALLED TO06/16/16 1438 Raul Watts.RESULTS READ BACK BY . PROTIME 36.1 s (Abnormal) Range: 11.7-14.9 0-Xue-162016:17 Prothrombin Time w/INR Comments: [facility] [address]uc[address] [place], [place], [address] INR 2.1 (Normal) PROTIME 23.1 s (Abnormal) Range: 11.7-14.9 0-Svc-056744:16 CBC W/Diff, Auto - EPLAB Comments: SPECIMEN OBTAINED FROM LINE DRAWAt [facility] Out[facility] Medical Oncologypatients receive CBC w/auto Differential ONLY. Physicianwill place an order for a manual differential or Pathologis Only treview at his discretion. [facility] OUTPATIENT [facility]. [address] [place] [address] [address] INSULATING MACHINE OPERATOR: OMERO ZAMUDIO DO PH:[phone] [facility] Brvbasarlm[address] [place], [place], [address] Absolute Lymph 1.13 {X10_3/uL} (Normal) Range: 0.83-4.51 [...] 4.2-5.4 WBC 5.0 K/mm3 (Normal) Range: 4.4-11.0 9-Rre-961086:16 Comprehensive Metabolic Profil Comments: Order Date: 03/09/16Interface Comments: Reason:Order Date: 03/09/16erial Specimen #1, #2 or #3? 1WWy[facility]ot [facility] Ikplvwqmmi9206 [place], [address] GAP 9 (Normal) Range: 5-15 CO2 21.0 [...] 7-18 GLU 92 mg/dL (Normal) Range: 70-110 6-Fpt-213649:16 Ferritin Comments: Order Date: 03/09/16Interface Comments: Reason:Order Date: 03/09/16Serial Specimen #1, #2 or #3? [address] [place] [address] [address]kuawarms[address] [place], [place], [address] FERRITIN 120 ng/mL (Normal) Range: 8-252 3-Ggv-762587:16 Iron Comments: Order Date: 03/09/16Interface Comments: Reason:Order Date: 03/09/16Serial Specimen #1, #2 or #3? [address] [place] [address] Ffgdqnygkz9060 [address] [place], [place], [address] IRON 107 ug/dL (Normal) Range: 50-170 4-Grx-263935:16 Iron Binding Capacity,Total Comments: Order Date: 03/09/16Interface Comments: Reason:Order Date: 03/09/16Serial Specimen #1, #2 or #3? [address] [place] [address] [address]okwiqjx[address] [place], [place], [address] TIBC 287 ug/dL (Normal) Range: 250-450 5-Csk-850738:16 LDH 174 U/L (Normal) Comments: Order Date: 03/09/16Interface Comments: Reason:Order Date: 03/09/16Serial Specimen #1, #2 or #3? [address] [place] [address] L[address]ra[address] [place], [address] Range: 84-246 4-Rss-083036:16 Uric Acid Comments: Order Date: 03/09/16Interface Comments: Reason:Order Date: 03/09/16Serial Specimen #1, #2 or #3? [address] [place] [address] Oduxilexul9313 Elsa [place], [address] URIC 6.2 mg/dL (Abnormal) Range: 2.6-6.0 Comments: The drugs N-Acetylcysteine and Metamizole may falsely deressthis assay. 18-Nwd-012040:27 Prothrombin Time w/INR Comments: Order Date: 05/13/16Order Info: 6301-6 - *Prothrombin Time (PT)Comments: PT/INROrder Date: 05/13/16Order Info: 6301-6 - *Prothrombin Time (PT)Comments: PT/INRWWyandot [facility] Hospital La rjhwfwkn[address] [place], [address] INR 3.1 (Normal) PROTIME 31.0 s (Abnormal) Range: 11.7-14.9 48-Bwo-822339:35 URINE ANURAG CULTURE-IDENTIFICATN Comments: PATIENT NOT FASTINGPERFORMED BY: [facility] Unbfiq2458 [facility] [id number] Information: SRC: ([id number]) Antimicrobial MIHEAD (Normal) Comments: S = Susceptible; [...] primarily for treating urinary tract infections. (CLSI, B899-Z54,2009) Urine Culture,Comprehensive Final report (Abnormal) 49-Lsd-867545:29 Urinalysis, Office (92518) UA - LEUKOCYTE ESTERASE Large (Normal) UA - NITRITE Negative (Normal) URINE UROBILINGN TYSON TIMED Normal mg/dL (Normal) UA - PROTEIN 30 mg/dL (Normal) UA - PH 6.0 (Normal) Comments: 5.5 UA - BLOOD non-hemolyzed trace (Normal) UA - SPECIFIC GRAVITY 1.025 (Normal) UA - KETONES Negative mg/dL (Normal) UA - BILIRUBIN Negative (Normal) UA - GLUCOSE Negative (Normal) 57-Tzc-624731:23 Prothrombin Time w/INR Comments: Order Date: 05/09/16Order Date: 05/09/16[facility] [address]pl[address], [address] INR 1.8 (Normal) PROTIME 20.7 s (Abnormal) Range: 11.7-14.9 :26 Prothrombin Time w/INR Comments: Order Date: 05/04/16Order Date: 05/04/16[facility] [address], [address] INR 1.8 (Normal) PROTIME 19.9 s (Abnormal) Range: 11.7-14.9 :31 Prothrombin Time w/INR Comments: CRITICAL VALUE REPEATED AND VERIFIED. CALLED TO [facility] Zulma Watts.RESULTS READ BACK BY MARTA .[facility] Fzufmayilk[address] [place], [phone] INR 4.4 (Abnormal) PROTIME 40.4 s (Abnormal) Range: 11.7-14.9 :44 CBC W/Diff, Auto - EPLAB Comments: At [facility] Outpatient [facility] [place] Medical Oncologypatients receive CBC w/auto Differential ONLY. Physicianwill place an order for a manual differential or Pathologistreview at his discretion. [facility] OUTPATIENT [facility]. [address] [place] [address] INSULATING MACHINE OPERATOR: OMERO ZAMUDIO DO PH:[phone] County Hospital [address]ubchjnel[address], [address] Absolute Lymph 1.16 {X10_3/uL} (Normal) Range: 0.83-4.51 [...] 4.2-5.4 WBC 6.9 K/mm3 (Normal) Range: 4.4-11.0 88-Gua-088888:44 Magnesium Comments: [facility] [address] [place], [phone](337 MG 1.7 mg/dL (Abnormal) Range: 1.8-2.4 66-Ewa-003258:44 Protein+Creatinine Ratio,Urine Comments: [facility] [address] [place], [address] PROT:CRE RATIO 397 {mg/g_CRE} (Abnormal) Range: 0-200 PROTEIN,UR.RAN. 89.0 mg/dL (Abnormal) UR CREAT 224.00 mg/dL (Normal) 39-Uea-138263:44 PTH,INTACT Comments: [facility] [address] [place], [phone](034) PTH,Intact 199 pg/mL (Abnormal) Range: 14-72 05-Xjs-481818:44 Renal Profile Comments: [facility] [address] [place], [phone](441) CO2 21.0 mmol/L (Normal) Range: 21.0-32.0 CL [...] 7-18 GLU 94 mg/dL (Normal) Range: 70-110 21-Wqk-608897:44 Vitamin D,25 Hydroxy Comments: [facility] Timqqmmron25[address] [place], [place], [address] Vitamin D 25-OH 33.1 ng/mL (Normal) Comments: Vitamin D 25(OH) Status Range Deficiency <20 ng/mL (50nmol/L) Insuffciency 20 - 30 ng/mL (50 - 75 nmol/L) Sufficiency 30 - 100 ng/mL (75 - 250 nmol/L) Toxicity >100 ng/mL (>250 nmol/L) 84-Otw-564031:55 Prothrombin Time w/INR Comments: Order Date: 04/06/16Interface Comments: PT/INROrder Date: 04/06/16[facility] [address]ox[address] [place], [address] INR 2.2 (Normal) PROTIME 23.9 s (Abnormal) Range: 11.7-14.9 :22 Prothrombin Time w/INR Comments: Order Date: 03/30/16Order Date: 03/30/16[facility] [address]zc[address] [place], [place], [address] INR 2.9 (Normal) PROTIME 29.4 s (Abnormal) Range: 11.7-14.9 :02 Prothrombin Time w/INR Comments: Diagnosis:Order Date: 01/14/16OV ID:OV Order #: [id number] County Hospital [address]midyy[address] [place], [place], [address] INR 1.9 (Normal) PROTIME 21.1 s (Abnormal) Range: 11.7-14.9 34-Zez-586175:28 CBC W/Diff, Auto - EPLAB Comments: At [facility] Outpatient [facility] Medical Oncologypatients receive CBC w/auto Differential ONLY. Physicianwill place an order for a manual differential or Pathologistreview at his discretion. [facility] OUTPATIENT [facility]. [address] [place] [address] [address] INSULATING MACHINE OPERATOR: OMERO ZAMUDIO DO PH:[phone] County Hospital [address]egdbeui[address] [place], [place], [address] Absolute Lymph 1.22 {X10_3/uL} (Normal) Range: 0.83-4.51 [...] Profil Comments: Order Date: 03/09/16OV Order #: [id number] Specimen #1, #2 or #3? 1 [id number] Memorial Hospital Rxjmfaiqak7866 [place], [address] GAP 6 (Normal) Range: 5-15 CO2 23.0 [...] 7-18 GLU 73 mg/dL (Normal) Range: 70-110 81-Nfr-593237:28 Ferritin Comments: Order Date: 03/09/16 Order #: [id number] Specimen #1, #2 or #3? [address] [place] [address] Wrofcxkrtb2518 [address] [place], [address] FERRITIN 117 ng/mL (Normal) Range: 8-252 90-Rxq-707996:28 Iron+Iron Binding Capacity Comments: Order Date: 03/09/16 Order #: [id number] Specimen #1, #2 or #3? [address] [place] [address] [place], [address] IRON SATURATION 33.1 % (Normal) Range: 15.0-55.0 IRON 97 ug/dL (Normal) Range: 50-170 TIBC 293 ug/dL (Normal) Range: 250-450 :28 LDH 169 U/L (Normal) Comments: Order Date: 03/09/16 Order #: [id number] Specimen #1, #2 or #3? [id number] [place] [address] [place], [address] Range: 84-246 :28 Prothrombin Time w/INR Comments: Order Date: 03/09/16 Order #: [id number] [place] [address] [place], 560551(523) INR 2.7 (Normal) PROTIME 28.2 s (Abnormal) Range: 11.7-14.9 56-Ryw-998386:28 Uric Acid Comments: Order Date: 03/09/16 Order #: [id number] Specimen #1, #2 or #3? [address] [place] [address] [place], 721[address](878) URIC 6.5 mg/dL (Abnormal) Range: 2.6-6.0 Comments: The drugs N-Acetylcysteine and Metamizole may falsely deressthis assay. :49 Prothrombin Time w/INR Comments: Diagnosis:Order Date: 03/03/16OV ID:OV Order #: [id number] County Hospital [address]tecrz[address] [place], [place], [phone] INR 2.9 (Normal) PROTIME 29.4 s (Abnormal) Range: 11.7-14.9 :11 Prothrombin Time w/INR Comments: [facility] Wpqmgdjyrp[address] [place], [place], [address](579) INR 2.8 (Normal) PROTIME 28.3 s (Abnormal) Range: 11.7-14.9 :50 Prothrombin Time w/INR Comments: [facility] Tlmalpwovp[address] [place], [place], [phone] INR 2.5 (Normal) PROTIME 26.0 s (Abnormal) Range: 11.7-14.9 :10 Prothrombin Time w/INR Comments: [facility] Ccfgkviavo[address] [place], [place], [phone] INR 1.7 (Normal) PROTIME 19.3 s (Abnormal) Range: 11.7-14.9 :33 CBC W/Diff, Auto - EPLAB Comments: At [facility] Outpatient [facility] Medical Oncologypatients receive CBC w/auto Differential ONLY. Physicianwill place an order for a manual differential or Pathologistreview at his discretion. [facility] OUTPATIENT [facility]. [address] [place] [address] [address] INSULATING MACHINE OPERATOR: OMERO ZAMUDIO DO PH:[phone] County Hospital [address] [place], [place], [id number] Absolute Lymph 1.04 {X10_3/uL} (Normal) Range: 0.83-4.51 [...] Range: 4.4-11.0 :32 Prothrombin Time w/INR Comments: [address] [place], [place], [id number] INR 2.3 (Normal) PROTIME 24.2 s (Abnormal) Range: 11.7-14.9 9-Sir-271122:26 Prothrombin Time w/INR Comments: [address] [place], [place], [phone] INR 2.1 (Normal) PROTIME 22.9 s (Abnormal) Range: 11.7-14.9 04-Kld-574320:15 Prothrombin Time w/INR Comments: [address] [place], [place], [phone] INR 2.2 (Normal) PROTIME 23.5 s (Abnormal) Range: 11.7-14.9 13-Ylm-600649:14 Comprehensive Metabolic Profil Comments: [address] [place], [place], [id number] GAP 6 (Normal) Range: 5-15 CO2 23.0 [...] 7-18 GLU 78 mg/dL (Normal) Range: 70-110 30-Ilj-515917:14 LDH 197 U/L (Normal) Comments: [facility] [address] [place], [place], [id number] Range: 84-246 51-Hnh-443445:14 Uric Acid Comments: [facility] [address] [place], [address] URIC 7.2 mg/dL (Abnormal) Range: 2.6-6.0 28-Rqv-191389:10 CBC W/Diff, Auto - EPLAB Comments: At [facility] Outpatient [facility] Medical Oncologypatients receive CBC w/auto Differential ONLY. Physicianwill place an order for a manual differential or Pathologistreview at his discretion. [facility]. [address] [place] [address] [address] INSULATING MACHINE OPERATOR: OMERO ZAMUDIO DO PH:[phone] County Hospital [address] [place], [address] Absolute Lymph 1.12 {X10_3/uL} (Normal) [...] 4.2-5.4 WBC 5.8 K/mm3 (Normal) Range: 4.4-11.0 5-Fxa-390908:31 Prothrombin Time w/INR Comments: [facility] [address] [place], [place], [id number] INR 2.9 (Normal) PROTIME 29.3 s (Abnormal) Range: 11.7-14.9 27-Bie-378456:01 CBC W/Diff, Auto - EPLAB Comments: SPECIMEN OBTAINED FROM LINE DRAWAt [facility] Medical Oncologypatients receive CBC w/auto Differential ONLY. Physicianwill place an order for a manual differential or Pathologis Only treview at his discretion. [facility] OUTPATIENT [facility]. [address] [place] [address] [address] INSULATING MACHINE OPERATOR: OMERO ZAMUDIO DO PH:[phone] [facility] [address] [place], [address] Absolute Lymph 1.09 {X10_3/uL} (Normal) [...] 4.2-5.4 WBC 5.5 K/mm3 (Normal) Range: 4.4-11.0 91-Ghk-285036:00 Prothrombin Time w/INR Comments: [facility] [address] [place], [address] INR 2.5 (Normal) PROTIME 26.4 s (Abnormal) Range: 11.7-14.9 12-Exx-539095:59 Comprehensive Metabolic Profil Comments: Serial Specimen #1, #2 or #3? [facility] Luqvdlllmb8[address], [address] GAP 8 (Normal) Range: 5-15 [...] 7-18 GLU 78 mg/dL (Normal) Range: 70-110 22-Ryy-664492:59 Ferritin Comments: Serial Specimen #1, #2 or #3? [address] [place] [address] [address] [place], [place], [id number] FERRITIN 84 ng/mL (Normal) Range: 8-252 89-Hnb-400620:59 Iron+Iron Binding Capacity Comments: Serial Specimen #1, #2 or #3? [address] [place] [address] Qxxxyctube3982 [address] [place], [place], [address] IRON SATURATION 27.2 % (Normal) Range: 15.0-55.0 IRON 83 ug/dL (Normal) Range: 50-170 TIBC 305 ug/dL (Normal) Range: 250-450 75-Gji-331702:59 LDH 195 U/L (Normal) Comments: Serial Specimen #1, #2 or #3? [address] [place] [address] Wyzjox[address] [place], [place], [address] Range: 84-246 13-Avq-291198:59 Uric Acid Comments: Serial Specimen #1, #2 or #3? [facility] Ljurggidwp26[address] [place], [id number] URIC 7.2 mg/dL (Abnormal) Range: 2.6-6.0 :33 Prothrombin Time w/INR Comments: [facility] Byaiosqfgj99[address] [place], [address] INR 3.0 (Normal) PROTIME 29.9 s (Abnormal) Range: 11.7-14.9 :08 Prothrombin Time w/INR Comments: [place] [address] [place], [address] INR 3.1 (Normal) PROTIME 30.8 s (Abnormal) Range: 11.7-14.9 05-Nov-20150:00 Basic Metabolic Profile (BMP) Comments: [place] [address] [place], [address] GAP 4 (Abnormal) Range: 5-15 CO2 24.0 [...] 7-18 GLU 80 mg/dL (Normal) Range: 70-110 3-Utv-306421:23 Magnesium Comments: [facility] Fvkibmorzq5[address] [place], [address] MG 1.8 mg/dL (Normal) Range: 1.8-2.4 :23 Protein+Creatinine Ratio,Urine Comments: [facility] Crsevasnry4272 [address] [place], [address] PROT:CRE RATIO 355 {mg/g_CRE} (Abnormal) Range: 0-200 PROTEIN,UR.RAN. 56.8 mg/dL (Abnormal) UR CREAT 160.00 mg/dL (Normal) 2-Yjv-728728:23 Prothrombin Time w/INR Comments: [facility] Wefvnihxxj9[address] [place], [address] INR 3.1 (Normal) PROTIME 31.8 s (Abnormal) Range: 11.7-14.9 :23 PTH,INTACT Comments: [facility] K[address]otiqxzq[address] [place], [address] PTH,Intact 71 pg/mL (Normal) Range: 14-72 8-Gyr-954798:23 Renal Profile Comments: [facility] Kxswuvdjyu8377 [place], [address] CO2 22.0 mmol/L (Normal) Range: 21.0-32.0 CL [...] 7-18 GLU 83 mg/dL (Normal) Range: 70-110 5-Vzq-721790:23 Vitamin D 1,25-Dihydroxy Comments: [facility] (refer to report for specific site)refer to report for address and phone number VITD 1,25 46577 25.0 pg/mL (Normal) Range: 19.9-79.3 Comments: Performed at: [facility] [address] [id number] Director: Matthew Nino MD, Phone: [phone] 6-Eyy-338898:22 CBC W/Diff, Auto - EPLAB Comments: At [facility] Outpatient [facility] Medical Oncologypatients receive CBC w/auto Differential ONLY. Physicianwill place an order for a manual differential or Pathologistreview at his discretion. [facility] OUTPATIENT [facility]. [address] [place] [address] [address] INSULATING MACHINE OPERATOR: OMERO ZAMUDIO DO PH:[phone] County Hospital [address]bsxywkm66[address] [place], [place], [address] Absolute Lymph 1.64 {X10_3/uL} (Normal) Range: 0.83-4.51 [...] 4.2-5.4 WBC 6.1 K/mm3 (Normal) Range: 4.4-11.0 26-Rrw-394493:39 Microscopic Examination Comments: PATIENT NOT FASTINGPERFORMED BY: [employer] [facility] [id number] Bacteria None seen (Normal) Mucus Threads Present (Normal) Crystal Type Calcium Oxalate (Normal) Crystals Present (Abnormal) Epithelial Cells (non renal) 0-10 {/hpf} (Normal) Range: 0 - 10 RBC 0-2 {/hpf} (Normal) Range: 0 - 2 WBC 0-5 {/hpf} (Normal) Range: 0 - 5 :39 LIPID PANEL (73204) Comments: PATIENT NOT FASTINGPERFORMED BY: [employer] [facility] [id number] LDL/HDL Ratio 1.9 {ratio_units} (Normal) Range: 0.0-3.2 [...] Cholesterol, Total 185 mg/dL (Normal) Range: 100-199 72-Cjy-987635:39 TSH (98825) Comments: PATIENT NOT FASTINGPERFORMED BY: [employer] Nhrnez8240 [facility] [id number] TSH 1.800 {uIU/mL} (Normal) Range: 0.450-4.500 44-Zah-127873:39 URINALYSIS, W/ MICRO (15012) Comments: PATIENT NOT FASTINGPERFORMED BY: [facility]6370 [facility] [id number] Microscopic Examination See below: (Normal) Comments: Microscopic was indicated and was performed. Nitrite, Urine Negative (Normal) Urobilinogen,Semi-Qn 0.2 mg/dL (Normal) Range: 0.2-1.0 Bilirubin Negative (Normal) Occult Blood Negative (Normal) Ketones Negative (Normal) Glucose Negative (Normal) Protein 1+ (Abnormal) WBC Esterase Trace (Abnormal) Appearance Cloudy (Abnormal) Urine-Color Yellow (Normal) pH 6.0 (Normal) Range: 5.0-7.5 Specific [place] 1.014 (Normal) Range: 1.005-1.030 :39 MICROALBUMIN: CREATININE RATIO Comments: PATIENT NOT FASTINGPERFORMED BY: [facility]6370 [facility] [id number] (20984) AND (44541) Microalb/Creat Ratio 34.2 {mg/g_creat} (Abnormal) Range: 0.0-30.0 Microalbumin, Urine 46.5 ug/mL (Abnormal) Range: 0.0-17.0 Creatinine, Urine 135.9 mg/dL (Normal) Range: 15.0-278.0 :39 METABOLIC PANEL, Comments: PATIENT NOT FASTINGPERFORMED BY: [facility]6370 [facility] [id number] Information: [id number] COMPREHENSIVE (91785) ALT (SGPT) 14 [iU]/L (Normal) Range: 0-32 [...] Glucose, Serum 79 mg/dL (Normal) Range: 65-99 46-Itl-092893:37 Prothrombin Time w/INR Comments: [facility] Y[address]va[address]em[address] [place], [address] INR 2.5 (Normal) PROTIME 26.7 s (Abnormal) Range: 11.7-14.9 48-Jpf-020380:55 CBC W/Diff, Auto - EPLAB Comments: At [facility] Outpatient [facility] Medical Oncologypatients receive CBC w/auto Differential ONLY. Physicianwill place an order for a manual differential or Pathologistreview at his discretion. [facility] OUTPATIENT [facility]. [address] [place] [address] [address] INSULATING MACHINE OPERATOR: OMERO ZAMUDIO DO PH:[phone] County Hospital [address]kswkjrv[address] [place], [place], [address] Absolute Lymph 1.30 {X10_3/uL} (Normal) Range: 0.83-4.51 [...] Range: 4.4-11.0 :55 Prothrombin Time w/INR Comments: [facility] [address]ls[address] [place], [place], [address] INR 2.5 (Normal) PROTIME 27.3 s (Abnormal) Range: 11.7-14.9 7-Qvz-620558:31 Rapid Flu (24538 x 2) Influenza A Ag negative (Normal) 7-Krd-028236:25 CBC W/Diff, Auto - EPLAB Comments: At [facility] Outpatient [facility] Medical Oncologypatients receive CBC w/auto Differential ONLY. Physicianwill place an order for a manual differential or Pathologistreview at his discretion. [facility] OUTPATIENT [facility]. [address] [place] [address] [place] [address] INSULATING MACHINE OPERATOR: OMERO ZAMUDIO DO PH:[phone] County Hospital Epanbpsvvk[address] [place], [place], [address] Absolute Lymph 1.41 {X10_3/uL} (Normal) Range: 0.83-4.51 [...] 4.2-5.4 WBC 7.3 K/mm3 (Normal) Range: 4.4-11.0 4-Prv-509536:25 Prothrombin Time w/INR Comments: [facility] Dyuclqvoep6[address] [place], [address] INR 1.9 (Normal) PROTIME 22.2 s (Abnormal) Range: 11.7-14.9 08-Yhy-186151:15 CBC W/Diff, Auto - EPLAB Comments: At [facility] Outpatient [facility] Medical Oncologypatients receive CBC w/auto Differential ONLY. Physicianwill place an order for a manual differential or Pathologistreview at his discretion. [facility] OUTPATIENT [facility]. [address] [place] [address] [place] [address] INSULATING MACHINE OPERATOR: OMERO ZAMUDIO DO PH:[phone] County Hospital [address] [place], [place], [address] Absolute Lymph 1.34 {X10_3/uL} (Normal) Range: 0.83-4.51 [...] 4.2-5.4 WBC 6.2 K/mm3 (Normal) Range: 4.4-11.0 13-Hax-733550:15 Prothrombin Time w/INR Comments: [facility] Jilhypkozc[address] [place], [address] INR 2.2 (Normal) PROTIME 24.2 s (Abnormal) Range: 11.7-14.9 45-Jjl-405926:08 Ferritin Comments: THIS IS STORED UNDER THE XTRA RACK FROM [facility] [address]okqbvnoz[address], [address] FERRITIN 49 ng/mL (Normal) Range: 8-252 41-Eth-002213:08 Iron Comments: THIS IS STORED UNDER THE XTRA RACK FROM [facility] Khhnoblobf[address] [place], [address] IRON 42 ug/dL (Abnormal) Range: 50-170 04-Ghr-832741:08 Iron Binding Capacity,Total Comments: THIS IS STORED UNDER THE XTRA RACK FROM [facility] Kmhrtytkov[address] [place], [address] TIBC 299 ug/dL (Normal) Range: 250-450 72-Bxt-727650:08 Prothrombin Time w/INR Comments: [facility] Ejjozfoxog24[address] [place], [address] INR 2.2 (Normal) PROTIME 24.4 s (Abnormal) Range: 11.7-14.9 67-Uds-855247:55 CBC W/Diff, Auto - EPLAB Comments: At [facility] Outpatient [facility] Medical Oncologypatients receive CBC w/auto Differential ONLY. Physicianwill place an order for a manual differential or Pathologistreview at his discretion. [facility]. [address] [place] [address] [address] INSULATING MACHINE OPERATOR: OMERO ZAMUDIO DO PH:[phone] County Hospital Klqjhhfvhy[address] [place], [place], [address] Absolute Lymph 1.28 {X10_3/uL} (Normal) Range: 0.83-4.51 [...] CBC W/Diff, Auto - EPLAB Comments: At [facility] Outpatient [facility] Medical Oncologypatients receive CBC w/auto Differential ONLY. Physicianwill place an order for a manual differential or Pathologistreview at his discretion. [facility]. [address] [place] [address] [address] INSULATING MACHINE OPERATOR: OMERO ZAMUDIO DO PH:[phone] County Hospital Aeqrhlgelc[address] [place], [address] Absolute Lymph 0.98 {X10_3/uL} (Normal) [...] 4.2-5.4 WBC 6.3 K/mm3 (Normal) Range: 4.4-11.0 89-Qvo-474188:15 Comprehensive Metabolic Profil Comments: Serial Specimen #1, #2 or #3? 1[facility] Xvlggoqztb9[address] [place], [address] GAP 9 (Normal) Range: 5-15 [...] 7-18 GLU 105 mg/dL (Normal) Range: 70-110 64-Mhh-408497:15 LDH 194 U/L (Normal) Comments: Serial Specimen #1, #2 or #3? [facility] Aumbnsnykb2556 [place], [address] Range: 84-246 21-Gjy-902313:15 Prothrombin Time w/INR Comments: [facility] [address] [place], [address] INR 3.4 (Normal) PROTIME 34.0 s (Abnormal) Range: 11.7-14.9 62-Wmr-938490:15 Uric Acid Comments: Serial Specimen #1, #2 or #3? [facility] [address] [place], [address] URIC 7.1 mg/dL (Abnormal) Range: 2.6-6.0 7-Hoy-541399:41 Prothrombin Time w/INR Comments: [facility] [address] [place], [address] INR 2.9 (Normal) PROTIME 30.4 s (Abnormal) Range: 11.7-14.9 8-Vpu-622295:22 CBC W/Diff, Auto - EPLAB Comments: At [facility] Medical Oncologypatients receive CBC w/auto Differential ONLY. Physicianwill place an order for a manual differential or Pathologistreview at his discretion. [facility] OUTPATIENT [facility]. [address] [place] [address] [place] [address] INSULATING MACHINE OPERATOR: OMERO ZAMUDIO DO PH:[phone] County Hospital [address] [place], [address] Absolute Lymph 1.01 {X10_3/uL} (Normal) [...] 4.2-5.4 WBC 6.5 K/mm3 (Normal) Range: 4.4-11.0 9-Omt-213659:22 Comprehensive Metabolic Profil Comments: Serial Specimen #1, #2 or #3? [facility] Pmllyoftie88[address] [place], [address] GAP 9 (Normal) Range: 5-15 [...] 126 mg/dLsuggests DIABETES MELLITUS per A.D.A. criteria. 4-Fou-621666:22 LDH 220 U/L (Normal) Comments: Serial Specimen #1, #2 or #3? [address] [place] [address] Aivxjlalcg[address] [place], [address] Range: 84-246 2-Sat-762650:22 Uric Acid Comments: Serial Specimen #1, #2 or #3? [address] [place] [address] Fkcvyjykux6074 [place], [address] URIC 5.9 mg/dL (Normal) Range: 2.6-6.0 02-Iqd-445865:00 Prothrombin Time w/INR Comments: [facility] Ntniaoscid26[address] [place], [place], [address] INR 2.2 (Normal) PROTIME 24.1 s (Abnormal) Range: 11.7-14.9 38-Wso-245166:10 Prothrombin Time w/INR Comments: [facility] Bbzczhtayr65[address] [place], [address] INR 2.4 (Normal) PROTIME 26.4 s (Abnormal) Range: 11.7-14.9 44-Mgf-057425:40 Prothrombin Time w/INR Comments: [facility] Ekpfgtkmsa57[address] [place], [address] INR 2.4 (Normal) PROTIME 26.3 s (Abnormal) Range: 11.7-14.9 3-Mee-313894:00 CBC W/Diff, Auto - EPLAB Comments: At [facility] Outpatient [facility] Medical Oncologypatients receive CBC w/auto Differential ONLY. Physicianwill place an order for a manual differential or Pathologistreview at his discretion. [facility] OUTPATIENT [facility]. [address] [place] [address] [address] INSULATING MACHINE OPERATOR: OMERO ZAMUDIO DO PH:[phone] County Hospital Gvbuyuiunb485[address] [place], [address] Absolute Lymph 1.45 {X10_3/uL} (Normal) [...] K/mm3 (Normal) Range: 4.4-11.0 :59 Magnesium Comments: [facility] Tauidtfwjb4[address] [place], [phone] MG 1.7 mg/dL (Abnormal) Range: 1.8-2.4 :59 Protein+Creatinine Ratio,Urine Comments: [facility] Ixapiekwwv4[address] [place], [address] PROT:CRE RATIO 250 {mg/g_CRE} (Abnormal) Range: 0-200 PROTEIN,UR.RAN. 46.8 mg/dL (Abnormal) UR CREAT 187.00 mg/dL (Normal) :59 PTH,INTACT Comments: [facility] Scirjxjrlo38[address] [place], [address] PTH,Intact 81 pg/mL (Abnormal) Range: 14-72 :59 Renal Profile Comments: [address] [place], [address] CO2 22.0 mmol/L (Normal) Range: 21.0-32.0 CL [...] 7-18 GLU 94 mg/dL (Normal) Range: 70-110 2-Dhq-861433:59 Vitamin D,25 Hydroxy Comments: [facility] Olqzpcfslk10[address] [place], [address] Vitamin D 25-OH 39.3 ng/mL (Normal) Comments: Vitamin D 25(OH) Status Range Deficiency <20 ng/mL (50nmol/L) Insuffciency 20 - 30 ng/mL (50 - 75 nmol/L) Sufficiency 30 - 100 ng/mL (75 - 250 nmol/L) Toxicity >100 ng/mL (>250 nmol/L) 2-Zpc-827323:40 Lipid Profile Comments: PT TO DR PARRA, TSH, MICRO ALB CREA, [facility] Ohyhibkavi5015 [place], [address] VLDL 29 mg/dL (Normal) Range: [...] 200-240 mg/dL Borderline >240 mg/dL High Risk 4-Onm-198523:40 Microalb:Creat Ratio,Random UR Comments: [facility] Ijprqvqkac0269 [place], [address] MALB:CREAT 14.5 {mg/g_CRE} (Normal) MICROALBUMIN,UR 14.8 mg/L (Normal) UR CREAT 102.00 mg/dL (Normal) 5-Nxf-332473:40 Prothrombin Time w/INR Comments: [facility] Itjogrivvn18[address] [place], [address] INR 2.3 (Normal) PROTIME 25.1 s (Abnormal) Range: 11.7-14.9 8-Guc-175494:40 Thyroid Stim Hormone (TSH) Comments: PT TO DR PARRA, TSH, MICRO ALB CREA, UAC AND LIPD TO TIMClerm[facility] Ypsqqeuzcj9943 [place], [address] TSH 3.62 {uIU/mL} (Normal) Range: 0.358-3.74 :40 Urinalysis, Complete Comments: How was Urine Obtained? CLEAN [facility] Gydftvbimd45[address], [address] MUCUS, URINE 0 SEEN {/hpf} [...] CLARITY Sl. Cloudy (Normal) COLOR Yellow (Normal) 13-Hdv-540417:15 CBC W/Diff, Auto - EPLAB Comments: At [facility] Outpatient [facility] Medical Oncologypatients receive CBC w/auto Differential ONLY. Physicianwill place an order for a manual differential or Pathologistreview at his discretion. [facility]. [address] [place] [address] [address] INSULATING MACHINE OPERATOR: OMERO ZAMUDIO DO PH:[phone] County Hospital Rvaiyuehyp9631 [place], [address] Absolute Lymph 1.10 {X10_3/uL} (Normal) [...] 4.2-5.4 WBC 5.7 K/mm3 (Normal) Range: 4.4-11.0 34-Had-230968:15 Comprehensive Metabolic Profil Comments: Serial Specimen #1, #2 or #3? 1[facility] Srdglcgcaz63[address] [place], [place], [address] GAP 10 (Normal) Range: 5-15 CO2 21.0 [...] 7-18 GLU 74 mg/dL (Normal) Range: 70-110 63-Ozs-268599:15 LDH 188 U/L (Normal) Comments: Serial Specimen #1, #2 or #3? [address] [place] [address] Cxrhlbanjv4[address] [place], [place], [address] Range: 84-246 82-Klw-219101:15 Prothrombin Time w/INR Comments: [facility] Cginogqggn3[address] [place], [place], [phone] INR 2.1 (Normal) PROTIME 23.5 s (Abnormal) Range: 11.7-14.9 87-Lub-604117:15 Uric Acid Comments: Serial Specimen #1, #2 or #3? [address] [place] [address] Xmigmgtvai1164 [address] [place], [place], [address] URIC 6.6 mg/dL (Abnormal) Range: 2.6-6.0 98-Aqh-078657:50 Basic Metabolic Profile (BMP) Comments: SPECIMEN OBTAINED FROM [facility] Dvrdidycsx6[address]wen [place], [place], [address] GAP 8 (Normal) Range: 5-15 CO2 20.0 [...] 7-18 GLU 85 mg/dL (Normal) Range: 70-110 96-Saa-039951:50 Prothrombin Time w/INR Comments: SPECIMEN OBTAINED FROM [facility] Nmpjyefylr48[address] [place], [address] INR 1.6 (Normal) PROTIME 19.4 s (Abnormal) Range: 11.7-14.9 2-Ybw-871645:10 CBC W/Diff, Automated Comments: At [facility] Outpatient [facility] Medical Oncologypatients receive CBC w/auto Differential ONLY. Physicianwill place an order for a manual differential or Pathologistreview at his discretion. [facility] OUTPATIENT [facility]. [address] [place] [address] [address] INSULATING MACHINE OPERATOR: OMERO ZAMUDIO DO PH:[phone] performed at:[facility] Laborato ud[address] [place] [address] Absolute Lymph 0.81 {X10_3/ul} (Abnormal) [...] 4.2-5.4 WBC 4.9 K/mm3 (Normal) Range: 4.4-11.0 5-Zly-302350:10 Comprehensive Metabolic Profil Comments: Serial Specimen #1, #2 or #3? 1Test performed at:[facility] Tcogdczqtt83[address] [place], [place] [address] ; handled by felix TIAN 9 (Normal) [...] Comments: Please note revised CREATININE reference range jfppbfaby78/22/2015. BUN 43 mg/dL (Abnormal) Range: 7-18 GLU 79 mg/dL (Normal) Range: 70-110 9-Fla-451409:10 LDH 202 U/L (Normal) Comments: Serial Specimen #1, #2 or #3? 1Test performed at:[facility] [address] [place] [address] Range: 84-246 3-Sna-540148:10 Prothrombin Time w/INR Comments: Test performed at:[facility] By[address]ij[address] [place] [address] INR 2.3 (Normal) PROTIME 25.6 s (Abnormal) Range: 11.7-14.9 1-Gdn-819784:10 Uric Acid Comments: Serial Specimen #1, #2 or #3? 1Test performed at:[facility] [address]ty[address] [place] [address] URIC 6.3 mg/dL (Abnormal) Range: 2.6-6.0 36-Obv-211897:00 Prothrombin Time w/INR Comments: Test performed at:[facility] [address] [place] [address] INR 2.5 (Normal) PROTIME 26.8 s (Abnormal) Range: 11.7-14.9 39-Wjr-183954:37 CALCIFIDIOL (29930) VIT D 25 Comments: PATIENT NOT FASTINGPERFORMED BY: [facility] CenterWxgjjx4085 [facility] [id number] Vitamin D, 25-Hydroxy 40.0 ng/mL (Normal) Range: 30.0-100.0 Comments: Vitamin D deficiency has been defined by the [place] ofMedicine and an Endocrine Society practice guideline as alevel of serum 25-OH vitamin D less than 20 ng/mL (1,2).The Endocrine Society went on to further define vitamin Dinsufficiency as a level between 21 and 29 ng/mL (2).1. IOM ([place] of Medicine). 2010. Dietary reference intakes for calcium and D. [place]: The National Academies Press.2. Lluvia MF, Wade [place], Tanner VENEGAS, et al. Evaluation, treatment, and prevention of vitamin D deficiency: an Endocrine Society clinical practice guideline. JCEM. 2010; 96(7):1911-30. 88-Wuq-265769:37 TSH (49721) Comments: PATIENT NOT FASTINGPERFORMED BY: [facility] Ciorzb0262 [facility] [id number] Information: [id number] TSH 3.550 {uIU/mL} (Normal) Range: 0.450-4.500 18-Svq-091205:40 Prothrombin Time w/INR Comments: Test performed at:[facility] Rtsmkncljv7469 [place] [address] INR 2.4 (Normal) PROTIME 26.0 s (Abnormal) Range: 11.7-14.9 02-Mar-20159:00 Prothrombin Time w/INR Comments: Test performed at:[facility] Baynosxfrp2041 [facility] [place], [place] [address] INR 2.2 (Normal) PROTIME 24.3 s (Abnormal) Range: 11.7-14.9 73-Rlw-325664:05 CBC W/Diff, Auto - EPLAB Comments: At [facility] Outpatient [facility] Medical Oncologypatients receive CBC w/auto Differential ONLY. Physicianwill place an order for a manual differential or Pathologistreview at his discretion. [facility] OUTPATIENT [facility]. [address] [place] [address] [address] INSULATING MACHINE OPERATOR: OMERO ZAMUDIO DO PH:[phone] performed at:[facility] Laborato lc[address] [place] [address] Absolute Neut 3.7 {X10_3/uL} (Normal) [...] 4.2-5.4 WBC 5.4 K/mm3 (Normal) Range: 4.4-11.0 98-Ydy-845967:05 Prothrombin Time w/INR Comments: Test performed at:[facility] [address] [place] [address] INR 2.5 (Normal) PROTIME 27.0 s (Abnormal) Range: 11.7-14.9 [id number] Prothrombin Time w/INR Comments: Test performed at:[facility] [address] [place] [address] INR 1.4 (Normal) PROTIME 17.4 s (Abnormal) Range: 11.7-14.9 60-[id number]:51 CBC W/Diff, Auto - EPLAB Comments: At [facility] Outpatient [facility] Medical Oncologypatients receive CBC w/auto Differential ONLY. Physicianwill place an order for a manual differential or Pathologistreview at his discretion. [facility]. [address] [place] [address] [place] [address] INSULATING MACHINE OPERATOR: OMERO ZAMUDIO DO PH:[phone] performed at:[facility] [address] [place] [address] Absolute Neut 4.0 {X10_3/uL} (Normal) Range: 2.0-7.7 [...] 4.2-5.4 WBC 5.6 K/mm3 (Normal) Range: 4.4-11.0 66-Brj-[id number]:51 Magnesium Comments: RENAL, VITD25, MG PTHIN AND URINCE TO GO TO DR. Dupont performed at:[facility] [address] [place] [address] MG 1.7 mg/dL (Abnormal) Range: 1.8-2.4 :51 Protein+Creatinine Ratio,Urine Comments: RENAL, VITD25, MG PTHIN AND URINCE TO GO TO DR. Dupont performed at:[facility] [address] [place] [id number] PROT:CRE RATIO 304 {mg/g_CRE} (Abnormal) Range: 0-200 PROTEIN,UR.RAN. 48.2 mg/dL (Abnormal) UR CREAT 158.3 mg/dL (Normal) [id number]-Zto-[id number]:51 Prothrombin Time w/INR Comments: Test performed at:[facility] [address] [place] [id number] INR 1.1 (Normal) PROTIME 14.2 s (Normal) Range: 11.7-14.9 :51 PTH,INTACT Comments: Test performed at:[address] [place] [address] PTH,Intact 31 pg/mL (Normal) Range: 14-72 00-Ear-536074:51 Renal Profile Comments: RENAL, VITD25, MG PTHIN AND URINCE TO GO TO DR. Dupont performed at:[facility] [address] [place] [address] [place] [address] CO2 20.0 mmol/L (Abnormal) Range: [...] 7-18 GLU 79 mg/dL (Normal) Range: 70-110 31-Juu-614245:51 Vitamin D,25 Hydroxy Comments: Test performed at:[facility] [address] [place] [address] [place] [address] Vitamin D 25-OH 32.1 ng/mL (Normal) Comments: Vitamin D 25(OH) Status Range Deficiency <20 ng/mL (50nmol/L) Insuffciency 20 - 30 ng/mL (50 - 75 nmol/L) Sufficiency 30 - 100 ng/mL (75 - 250 nmol/L) Toxicity >100 ng/mL (>250 nmol/L) 01-Nbc-251143:00 Prothrombin Time w/INR Comments: Test performed at:[facility] [address] [place] [address] INR 2.5 (Normal) PROTIME 26.7 s (Abnormal) Range: 11.7-14.9 13-Wtk-510789:54 Serum Creatinine AND GFR Comments: Test performed at:[facility] [address] [place] [address] CREAT,SERUM 2.6 mg/dL (Abnormal) Range: 0.6-1.0 59-Tyx-970780:47 D-Dimer Quantitative (DVT/PE) Comments: Test performed at:[facility] [address] [place] [address] D-DIMER QUANT 2.05 {FEU/ug/m} (Abnormal) Range: 0.27-0.49 Comments: D-Dimer ELEVATED (>0.49): Additional studies and clinicalassessments are indicated to conclude diagnosis of:Deep Vein Thrombosis (DVT) or Pulmonary Embolism (PE)CRITICAL VALUE REPEATED AND VERIFIED. CALLED TO URBAN BACK'S OFFICE.01/14/15 1322 Kory Kent.RESULTS READ BACK BY SAME. 34-Hed-031496:20 Prothrombin Time w/INR Comments: Test performed at:[facility] [address] [place], [place] [address] INR 2.6 (Normal) PROTIME 27.5 s (Abnormal) Range: 11.7-14.9 31-Osc-786765:25 CBC W/Diff, Auto - EPLAB Comments: At [facility] Outpatient [facility] Medical Oncologypatients receive CBC w/auto Differential ONLY. Physicianwill place an order for a manual differential or Pathologistreview at his discretion. [facility] OUTPATIENT [facility]. [address] [place] [address] [address] INSULATING MACHINE OPERATOR: OMERO ZAMUDIO DO PH:[phone] performed at:[facility] [address] [place], [place] [address] Absolute Neut 3.2 {X10_3/uL} (Normal) Range: 2.0-7.7 [...] 4.2-5.4 WBC 4.5 K/mm3 (Normal) Range: 4.4-11.0 21-Dxk-945479:00 CBC W/Diff, Auto - EPLAB Comments: At [facility] Outpatient [facility] Medical Oncologypatients receive CBC w/auto Differential ONLY. Physicianwill place an order for a manual differential or Pathologistreview at his discretion. [facility]. [address] [place] [address] [address] INSULATING MACHINE OPERATOR: OMERO ZAMUDIO DO PH:[phone] performed at:[facility] [address] [place] [address] Absolute Neut 4.4 {X10_3/uL} (Normal) [...] 4.2-5.4 WBC 5.8 K/mm3 (Normal) Range: 4.4-11.0 39-Ezf-088472:00 Prothrombin Time w/INR Comments: Test performed at:[facility] [address] [place], [place] [id number] INR 2.8 (Normal) PROTIME 29.7 s (Abnormal) Range: 11.7-14.9 2-Mvm-754858:10 CBC W/Diff, Auto - EPLAB Only Comments: At [facility] Outpatient [facility] Medical Oncologypatients receive CBC w/auto Differential ONLY. Physicianwill place an order for a manual differential or Pathologistreview at his discretion. [facility] OUTPATIENT [facility]. [address] [place] [address] [address] INSULATING MACHINE OPERATOR: OMERO ZAMUDIO DO PH:[phone] performed at:[facility] [address] [place] [address] Absolute Neut 2.8 {X10_3/uL} (Normal) [...] 4.2-5.4 WBC 4.4 K/mm3 (Normal) Range: 4.4-11.0 20-Ljc-598728:35 CBC W/Diff, Auto - EPLAB Comments: At [facility] Outpatient [facility], [facility] patientsreceive CBC w/auto Differential ONLY. Physician will placean order for a manual differential or Pathologist review athis discretion. [facility] OUTPATIENT [facility]. [address] [place] [address] [address] INSULATING MACHINE OPERATOR: OMERO ZAMUDIO DO PH:[phone] performed at:[facility] [address] [place], [place] [address] Absolute Neut 3.5 {X10_3/uL} (Normal) Range: 2.0-7.7 [...] 4.2-5.4 WBC 5.1 K/mm3 (Normal) Range: 4.4-11.0 46-Niu-128135:35 Comprehensive Metabolic Profil Comments: PLEASE SEND COPY OF LIPID, CMP,TSH TO DR Prieto Specimen #1, #2 or #3? 1Test performed at:[facility] [address] [place] [address] GAP 12 (Normal) Range: 5-15 [...] <126 mg/dLsuggests IMPAIRED HOMEOSTASIS per A.D.A. criteria. 01-Jqz-578072:35 LDH 222 U/L (Normal) Comments: PLEASE SEND COPY OF LIPID, CMP,TSH TO DR Prieto Specimen #1, #2 or #3? 1Test performed at:[facility] [address] [place] [address] Range: 87-241 43-Ses-013029:35 Lipid Profile Comments: PLEASE SEND COPY OF LIPID, CMP,TSH TO DR Prieto Specimen #1, #2 or #3? 1Test performed at:[facility] [address] [place] [address] VLDL 42 mg/dL (Abnormal) Range: [...] 200-240 mg/dL Borderline >240 mg/dL High Risk 03-Rdr-836493:35 Prothrombin Time w/INR Comments: Test performed at:[facility] [address] [place] [address] INR 2.3 (Normal) PROTIME 25.4 s (Abnormal) Range: 11.7-14.9 91-Edp-984261:35 Thyroid Stim Hormone (TSH) Comments: PLEASE SEND COPY OF LIPID, CMP,TSH TO DR Prieto Specimen #1, #2 or #3? 1Test performed at:[facility] [address] [address] TSH 2.09 {uIU/mL} (Normal) Range: 0.358-3.74 98-Pde-231852:35 Uric Acid Comments: PLEASE SEND COPY OF LIPID, CMP,TSH TO DR Prieto Specimen #1, #2 or #3? 1Test performed at:[facility] [address] [place] [address] URIC 6.5 mg/dL (Abnormal) Range: 2.6-6.0 36-Map-875416:10 Prothrombin Time w/INR Comments: Test performed at:[facility] [address] [place] [address] INR 2.8 (Normal) PROTIME 29.0 s (Abnormal) Range: 11.7-14.9 4-Fdc-525396:35 Prothrombin Time w/INR Comments: Test performed at:[facility] [address] [place] [address] INR 2.9 (Normal) PROTIME 30.5 s (Abnormal) Range: 11.7-14.9 07-Vcm-975346:15 Prothrombin Time w/INR Comments: Test performed at:[facility] [address] [place] [address] INR 1.9 (Normal) PROTIME 21.4 s (Abnormal) Range: 11.7-14.9 64-Rhg-146054:45 Prothrombin Time w/INR Comments: Test performed at:[facility] [address] [place] [address] INR 4.6 (Abnormal) Comments: RESULTS CALLED TO AMOR STANTON 10/22/14 Vilma Vidal.REPORT READ BACK BY SAME. PROTIME 42.9 s (Abnormal) Range: 11.7-14.9 00-Ibg-672052:30 CBC W/Diff, Auto - EPLAB Comments: [facility] Outpatient [facility] patientsreceive CBC w/auto Differential ONLY. Physician will placean order for a manual differential or Pathologist review athis discretion. Only [facility] OUTPATIENT [facility]. [address] [place] [address] [address] INSULATING MACHINE OPERATOR: OMERO ZAMUIDO DO PH:[phone] performed at:[facility] [address] [place] [address] Absolute Neut 3.9 {X10_3/uL} (Normal) [...] 4.2-5.4 WBC 5.8 K/mm3 (Normal) Range: 4.4-11.0 29-Ibu-945694:30 Magnesium Comments: Test performed at:[facility] [address] [place] [address] [place] [address] MG 1.6 mg/dL (Abnormal) Range: 1.8-2.4 :30 Protein+Creatinine Ratio,Urine Comments: Test performed at:[facility] [address] [place] [address] [place] [address] PROT:CRE RATIO 498 {mg/g_CRE} (Abnormal) Range: 0-200 PROTEIN,UR.RAN. 67.7 mg/dL (Abnormal) UR CREAT 135.7 mg/dL (Normal) 15-Ynk-302672:30 Prothrombin Time w/INR Comments: Test performed at:[facility] [address] [place] [address] INR 2.9 (Normal) PROTIME 30.0 s (Abnormal) Range: 11.7-14.9 69-Sap-306625:30 PTH,INTACT Comments: Test performed at:[facility] [address] [place] [address] PTH,Intact 63 pg/mL (Normal) Range: 14-72 49-Xam-010451:30 Renal Profile Comments: Test performed at:[facility] [address] [place] [address] [place] [address] CO2 20.0 mmol/L (Abnormal) Range: 21.0-32.0 CL [...] 7-18 GLU 83 mg/dL (Normal) Range: 70-110 59-Dac-116295:30 Vitamin D,25 Hydroxy Comments: Test performed at:[facility] [address] [place] [address] Vitamin D 25-OH 36.5 ng/mL (Normal) Comments: Vitamin D 25(OH) Status Range Deficiency <20 ng/mL (50nmol/L) Insuffciency 20 - 30 ng/mL (50 - 75 nmol/L) Sufficiency 30 - 100 ng/mL (75 - 250 nmol/L) Toxicity >100 ng/mL (>250 nmol/L) 87-Kjv-101559:27 Prothrombin Time w/INR Comments: Test performed at:[facility] [address] [place] [address] INR 2.8 (Normal) PROTIME 29.0 s (Abnormal) Range: 11.7-14.9 62-Lto-686628:55 Prothrombin Time w/INR Comments: Test performed at:[facility] [address] [place] [address] INR 2.4 (Normal) PROTIME 26.4 s (Abnormal) Range: 11.7-14.9 54-Jbe-133615:05 CBC W/Diff, Auto - EPLAB Comments: At [facility] Outpatient [facility] patientsreceive CBC w/auto Differential ONLY. Physician will placean order for a manual differential or Pathologist review athis discretion. [facility]. [address] [place] [address] [address] INSULATING MACHINE OPERATOR: OMERO ZAMUDIO DO PH:[phone] performed at:[facility] [address] [place] [address] Absolute Neut 3.2 {X10_3/uL} (Normal) [...] 4.2-5.4 WBC 4.9 K/mm3 (Normal) Range: 4.4-11.0 20-Iwp-254417:05 Prothrombin Time w/INR Comments: Test performed at:[facility] [address] [place] [address] INR 1.7 (Normal) PROTIME 20.2 s (Abnormal) Range: 11.7-14.9 39-Ckv-010635:50 Prothrombin Time w/INR Comments: Test performed at:[facility] [address] [place] [address] INR 2.6 (Normal) PROTIME 28.1 s (Abnormal) Range: 11.7-14.9 15-Ocn-943185:25 FECAL OCCULT HGB ASSAY- tubes sent home (55653) FECAL OCCULT HGB ASSAY, QUAL, 1-3 SIMULTANEOU negative (Normal) 02-Jbh-755149:07 CALCIFIDIOL (67261) VIT D 25 Comments: PATIENT WAS FASTINGPERFORMED BY: [employer] Fqjsqi[address]75 [facility] [id number] Vitamin D, 25-Hydroxy 37.0 ng/mL (Normal) Range: 30.0-100.0 Comments: Vitamin D deficiency has been defined by the [place] of[facility] General Health Centercine and an Endocrine Society practice guideline as alevel of serum 25-OH vitamin D less than 20 ng/mL (1,2).The Endocrine Society went on to further define vitamin Dinsufficiency as a level between 21 and 29 ng/mL (2).1. IOM ([place] of Medicine). 2010. Dietary reference intakes for calcium and D. [place]: The National Academies Press.2. Lluvia MF, Wade WING, Tanner VENEGAS, et al. Evaluation, treatment, and prevention of vitamin D deficiency: an Endocrine Society clinical practice guideline. JCEM. 2010; 96(7):1911-30. 92-Kpg-404048:07 VITAMIN B-12 (CYANOCOBALAMIN) Comments: PATIENT WAS FASTINGPERFORMED BY: [employer] Hvdggi3393 [facility] [id number] (91487) Vitamin B12 637 pg/mL (Normal) Range: 211-946 12-Tyt-593600:07 TSH (66897) Comments: PATIENT WAS FASTINGPERFORMED BY: [employer] Poqwbp0010 [facility] [id number] TSH 0.778 {uIU/mL} (Normal) Range: 0.450-4.500 71-Esw-287599:07 METABOLIC PANEL, COMPREHENSIVE Comments: PATIENT WAS FASTINGPERFORMED BY: [employer] Emrupv4069 [facility] [id number] (88521) ALT (SGPT) 31 [iU]/L (Normal) Range: 0-32 [...] mg/dL (Normal) Range: 65-99 :07 LIPID PANEL (88279) Comments: PATIENT WAS FASTINGPERFORMED BY: LabCoJFK [facility] CenterPggcpa8918 [facility] [id number] LDL/HDL Ratio 0.9 {ratio_units} (Normal) Range: 0.0-3.2 [...] Cholesterol, Total 193 mg/dL (Normal) Range: 100-199 38-Nkg-168052:07 CBC W/AUTO DIFF WBC Comments: PATIENT WAS FASTINGPERFORMED BY: [facility]CoSanta [facility] CenterLswttx4300 [facility] [id number] Information: [id number] (20927) Immature Grans (Abs) 0.0 {x10E3/uL} (Normal) Range: [...] 3.77-5.28 WBC 7.0 {x10E3/uL} (Normal) Range: 3.4-10.8 7-Auv-063634:55 ECBCD Comments: At [facility] Care patientsreceive CBC w/auto Differential ONLY. Physician will placean order for a manual differential or Pathologist review athis discretion.[place] [facility].[address] [place] [address]UKL DIRECTOR: OMERO ZAMUDIO DO PH:[phone] ANC 4.0 {X10_3/uL} (Normal) Range: 2.0-7.7 B% [...] 41.6/INR 3.[address] DELEON OFFICE X4 [facility]. WILL TRY AGAIN INR 3.0 (Normal) PTP 30.9 s (Abnormal) Range: 11.7-14.9 :45 IINR 3.70 (Abnormal) Comments: Critical Value> 3.5 :45 IPTF 41.6 {SEC} (Abnormal) Range: 11.9-14.4 Comments: Reference Range11.9 - 14.4 :45 ECBCD Comments: At [facility] Outpatient [facility] Care patientsreceive CBC w/auto Differential ONLY. Physician will placean order for a manual differential or Pathologist review athis discretion.[facility].[address] [place] [address]EIH DIRECTOR: OMERO ROBB MURRIETA PH:[phone] ANC 5.0 {X10_3/uL} (Normal) Range: 2.0-7.7 B% [...] 4.2-5.4 WBC 6.1 K/mm3 (Normal) Range: 4.4-11.0 47-Xiy-116910:55 ECBCD Comments: At [facility], [facility] patientsreceive CBC w/auto Differential ONLY. Physician will placean order for a manual differential or Pathologist review athis discretion.[facility].[address] [place] [address]UPS DIRECTOR: OMERO ZAMUDIO DO PH:[phone] ANC 4.0 {X10_3/uL} (Normal) Range: 2.0-7.7 B% [...] (Abnormal) Range: 11.7-14.9 :55 ECBCD Comments: At [facility] Outpatient [facility] patientsreceive CBC w/auto Differential ONLY. Physician will placean order for a manual differential or Pathologist review athis discretion.[facility].[address] [place] [address]IVE DIRECTOR: OMERO ZAMUDIO DO PH:[phone] ANC 3.7 {X10_3/uL} (Normal) Range: 2.0-7.7 B% [...] 4.2-5.4 WBC 5.1 K/mm3 (Normal) Range: 4.4-11.0 4-Bsn-647426:55 PT INR 1.9 (Normal) PTP 21.4 s (Abnormal) Range: 11.7-14.9 53-Plt-607819:30 ECBCD Comments: At [facility] patientsreceive CBC w/auto Differential ONLY. Physician will placean order for a manual differential or Pathologist review athis discretion.[facility].[address] [place] [address]CHR DIRECTOR: OMERO ZAMUDIO DO PH:[phone] ANC 2.6 {X10_3/uL} (Normal) Range: 2.0-7.7 B% [...] (Normal) PTP 19.5 s (Abnormal) Range: 11.7-14.9 86-Vqi-520125:05 CMP Comments: DR. PARRA ORDERED CBCD, CMP, [...] ng/mL (>250 nmol/L) :33 ECBCD Comments: At [facility] Outpatient [facility], Dr [address] patients receiveCBC w/auto Differential ONLY. He will place an order for amanual differential or Pathologist review at his discretion.[facility] OUTPATIENT [facility].[address] [place], [place] [address]GKF DIRECTOR: OMERO ZAMUDIO DO PH:[phone] ANC 4.4 {X10_3/uL} (Normal) Range: 2.0-7.7 B% [...] Comments: Please note revised PROTIME reference range lewpplugc94/14/15. 01-Bma-197683:30 CUUR URC See Note (Normal) Comments: ORGANISM [...] UCLAR Sl. Cloudy (Normal) UCOL Yellow (Normal) 50-Svk-559548:31 PT INR 2.6 (Normal) PTP 26.0 s (Abnormal) Range: 11.9-14.4 9-Fjr-902428:26 UNILAT LT DIAG DIGITAL & CAD Radiology [...] [facility]. Approximately 10% of breast cancers are not detected by mammography. Anormal mammogram should not delay biopsy of a cl inically suspiciousabnormality. Signed:Vishal Mendez M.D.March 08, 2013 at 2:10:47 PM [id number] Signed GP/GP If you are the referring physician and would like to consult with t heradiologist who provided this interpretation, please contact Varun Jeronimo at [phone]. If this radiologist is unavailable, youwill be directed to another radiologist to assist. If you a re a patient with a question regarding this report, pleasecontactyour referring physician directly. Professional Interpretation Provided By: [employer], Phone , These docu ments contain legally [...] 03/08/13 1415 Sign by: Vishal Mendez MD 6-Cal-291953:01 BREAST UNILATERAL Radiology See Note Comments: PROCEDURE: [...] Mendez M.D.March 08, 2013 at 2:13:37 PM [id number] Signed GP/GP If you are the referring physician and would like to consult with theradiologist who provided this interpretation, please contact Jo stack M.D. at [phone]. If this radiologist is unavailable, youwill be directed to another radiologist to assist. If you are a patient with a question regarding this report, pleasecontactyour referri ng physician directly. Professional Interpretation Provided By: [employer], Phone , These documents contain legally protected [...] 03/08/13 141 Sign by: Vishal Mendez MD 8-Rsp-720652:02 BILAT SCRN DIGITAL & CAD Radiology Report [...] will [facility]. Approximately 10% of breast cancers are not detected by mammography. Anormal mammogram sh ould not delay biopsy of a clinically suspiciousabnormality. Signed:Vishal Mendez M.D.March 01, 2013 at 12:50:31 PM [id number] Signed GP/GP If you are the referring physician an d would like to consult with theradiologist who provided this interpretation, please contact Varun Jeronimo at [phone]. If this radiologist is unavailable, youwill be directed to another r adiologist to assist. If you are a patient with a question regarding this report, pleasecontactyour referring physician directly. Professional Interpretation Provided By: [employer], Phone [phone], These documents contain legally protected and confidential [...] 12 58 Sign by: Vishal Mendez MD 26-Neb-722161:38 FECAL OCCULT- Tubes sent home (09922) FECAL OCCULT HGB ASSAY, QUAL, 1-3 SIMULTANEOU negative (Normal) 73-Wnm-108408:33 CHEST PA AND LATERAL Radiology Report See [...] Chandler M.D.November 13, 2012 at 7:05:21 PM [id number] Signed SH/SH If you are the referring physician and would like to consult with theradiologist who provided this interpretation, please contact Varun Garcia at [phone]. If this radiologist is unavailable, youwillbe directed to another radiologist to assist. If you are a patient with a q uestion regarding this report, pleasecontactyour referring physician directly. Professional Interpretation Provided By: [employer], Phone , These documents contain legally protected [...] MARLOWMarshall on 11/13/121907 Sign by: Ramesh MARLOWMarshall 90-Uwr-934039:40 ANURAG CULTURE-OTHER (21216) Comments: PATIENT NOT FASTINGPERFORMED BY: [facility] [id number] [facility] [id number] Information: SRC: THROAT Result 1 RRF (Normal) Comments: Routine respiratory raegan Upper Respiratory Culture Final report (Normal) :48 Rapid Strep Test, Office (20524) Rapid Strep Test, Office Negative (Normal) 04-Apr-20128:05 Urinalysis, Office (90939) UA - BILIRUBIN Negative (Normal) UA - BLOOD Non Hemolyzed Moderate (Normal) UA - GLUCOSE Negative (Normal) UA - KETONES Negative mg/dL (Normal) UA - LEUKOCYTE ESTERASE Large (Normal) UA - NITRITE Negative (Normal) UA - PH 6.0 (Normal) UA - PROTEIN 300 mg/dL (Normal) UA - SPECIFIC GRAVITY 1.025 (Normal) URINE UROBILINGN TYSON TIMED Normal mg/dL (Normal) 19-Ear-033426:40 PT (PROTHROMBIN TIME) Comments: PATIENT NOT FASTINGPERFORMED BY: LabCoJFK Medical CenterFfcbit5033 [facility] [id number] Information: [id number] (53417) Prothrombin Time 13.4 {sec} (Abnormal) Range: 8.7-11.5 [...] PROTIME ISTAT 12.3 {SEC} (Normal) Range: 11.9-14.4 82-Gjb-07327:00 CHEST,1 VIEW (PORTABLE) Radiology Report See Note [...] 64.1 mg/L Comments: PATIENT WAS FASTINGPERFORMED BY: [place] [facility] [id number] 1112:16 Protein, Quant (Abnormal) Range: 0.0-4.9 32-Aql-466394:16 CBC With Differential/Platelet Comments: PATIENT WAS FASTINGPERFORMED BY: [employer]6370 [facility] [id number] Immature Grans (Abs) 0.0 {x10E3/uL} (Normal) Range: [...] 3.80-5.10 WBC 5.3 {x10E3/uL} (Normal) Range: 4.0-10.5 95-Eyw-273479:16 Comp. Metabolic Panel (14) Comments: PATIENT WAS FASTINGPERFORMED BY: [facility]6370 [facility] [id number] ALT (SGPT) 12 [iU]/L (Normal) Range: 0-40 [...] 341 [iU]/L Comments: PATIENT WAS FASTINGPERFORMED BY: [address] [id number] :16 (Abnormal) Range: 0-214 14-Kgr-197470:16 LDL Cholesterol (Direct) Comments: PATIENT WAS FASTINGPERFORMED BY: [address] [id number] LDL Chol. (Direct) 80 mg/dL (Normal) Range: 0-99 Sedimentation 30 mm/h (Normal) Comments: PATIENT WAS FASTINGPERFORMED BY: [address] [id number] 2:16 Rate-Westergren Range: 0-56 Written Authorization WAR (Normal) Comments: PATIENT WAS FASTINGPERFORMED BY: [address] [id number] 2:16 Comments: Written Authorization Received.Authorization received from original requisition [id number] by Matthew Moore [place] 9.2 mg/dL (Normal) Range: 8.5-10.1 :25 [place]IZED [place] 4804 5.5 mg/dL (Normal) Range: 4.5-5.6 :25 Comments: Performed at: [address] [id number] Director: Silke Mccrary MD, Phone: [phone] 09-Hqg-182506:16 PT (PROTHROMBIN TIME) Comments: PATIENT NOT FASTINGPERFORMED BY: LabCoJFK Medical CenterUryced3393 [facility] [id number] Information: [id number] (93150) Prothrombin Time 27.6 {sec} (Abnormal) Range: 8.7-11.5 INR 2.6 (Abnormal) Range: 0.8-1.2 Comments: Reference interval is for non-anticoagulated patients. . Suggested INR therapeutic range for Vitamin K anta gonist therapy: Standard Dose (moderate intensity therapeutic range): 2.0 - 3.0 Higher intensity therapeutic range 2.5 - 3.5 44-Foa-378485:15 COMP METABOLIC GAP 7 (Normal) Range: 5-15 [...] 7-18 GLU 88 mg/dL (Normal) Range: 70-110 32-Qvv-83325:00 BRAIN W/WO CONTRAST Radiology Report See Note [...] on 03/17/112048 Sign by: ELLIOTT MCKENNA MD 73-Sen-146436:03 PT (Prothrobim Time) Comments: PATIENT NOT FASTINGPERFORMED BY: LabCoJFK Medical CenterJcphiq1457 [facility] [id number] Information: [id number] (30995) Prothrombin Time 12.2 {sec} (Abnormal) Range: 8.7-11.5 INR 1.2 (Normal) Range: 0.8-1.2 Comments: Reference interval is for non-anticoagulated patients. . Suggested INR therapeutic range for Vitamin K anta gonist therapy: Standard Dose (moderate intensity therapeutic range): 2.0 - 3.0 Higher intensity therapeutic range 2.5 - 3.5 [id number] DEXA BONE DENSITY STUDY (HP) Radiology Report [...] Vishal Mendez MD :51 Vitamin D Hydroxy ([id number]) Comments: PATIENT WAS FASTINGPERFORMED BY: [facility] [id number] [facility] [id number] Vitamin D, 25-Hydroxy 35.7 ng/mL (Normal) Range: 32.0-100.0 Comments: Recent studies consider the lower limit of 32.0 ng/mL to be athreshold for optimal health.Sameer BW. J Nutr. 2004;135(2):317-22. :51 MICROALBUMIN: CREATININE RATIO Comments: PATIENT WAS FASTINGPERFORMED BY: [employer] [facility] Ekluvh2596 [facility] [id number] (58492) AND (08135) Creatinine, Urine 205.5 mg/dL (Normal) Range: 15.0-278.0 Microalb/Creat Ratio 6.2 {mg/g_creat} (Normal) Range: 0.0-30.0 Microalbumin, Urine 12.8 ug/mL (Normal) Range: 0.0-17.0 :51 METABOLIC PANEL, COMPREHENSIVE Comments: PATIENT WAS FASTINGPERFORMED BY: [facility] Vxvnry3567 [facility] [id number] (61672) Alkaline Phosphatase, S 54 [iU]/L (Normal) Range: [...] Glucose, Serum 88 mg/dL (Normal) Range: 65-99 33-Cuk-24280:51 CBC WITH MANUAL DIFF (17379) Comments: PATIENT WAS FASTINGPERFORMED BY: LabCoJFK Medical CenterDrtzpy7832 [facility] [id number] Baso (Absolute) 0.0 {x10E3/uL} (Normal) Range: 0.0-0.2 [...] 5.0 {x10E3/uL} (Normal) Range: 4.0-10.5 :51 TSH (90113) Comments: PATIENT WAS FASTINGPERFORMED BY: [facility] [id number] TSH 1.320 {uIU/mL} (Normal) Range: 0.450-4.500 :51 LIPID PANEL (08233) Comments: PATIENT WAS FASTINGPERFORMED BY: [employer] [facility] [id number] HDL Cholesterol 51 mg/dL (Normal) Comments: According to ATP-III Guidelines, HDL-C >59 mg/dL is considered anegative risk factor for CHD. LDL Cholesterol Calc 60 mg/dL (Normal) Range: 0-99 LDL/HDL Ratio 1.2 {ratio_units} (Normal) Range: 0.0-3.2 VLDL Cholesterol Richard 32 mg/dL (Normal) Range: 5-40 Cholesterol, Total 143 mg/dL (Normal) Range: 100-199 Triglycerides 161 mg/dL (Abnormal) Range: 0-149 52-Cou-985427:23 PT (Prothrobim Time) (83907) Comments: INR; PATIENT NOT FASTINGPERFORMED BY: [employer] Rfzgyq5323 [facility] [id number] Prothrombin Time 28.6 {sec} (Abnormal) Range: 8.7-11.5 INR 2.7 (Abnormal) Range: 0.8-1.2 Comments: Reference interval is for non-anticoagulated patients. . Suggested INR therapeutic range for Vitamin K anta gonist therapy: Standard Dose (moderate intensity therapeutic range): 2.0 - 3.0 Higher intensity therapeutic range 2.5 - 3.5 :30 PT (PROTHROMBIN TIME) Comments: PATIENT NOT FASTINGPERFORMED BY: Haus BioceuticalsJFK Medical CenterAmdmvw2966 [facility] [id number] Information: [id number] (16010) Prothrombin Time 19.9 {sec} (Abnormal) Range: 8.7-11.5 INR 1.9 (Abnormal) Range: 0.8-1.2 Comments: Reference interval is for non-anticoagulated patients. . Suggested INR therapeutic range for Vitamin K anta gonist therapy: Standard Dose (moderate intensity therapeutic range): 2.0 - 3.0 Higher intensity therapeutic range 2.5 - 3.5 22-Lvy-472781:19 Prothrombin Time (PT) Comments: PERFORMED BY: [employer] Rxxchd3214 [facility] [id number] Prothrombin Time 26.5 {sec} (Abnormal) Range: 8.7-11.5 INR 2.5 (Abnormal) Range: 0.8-1.2 Comments: Reference interval is for non-anticoagulated patients. . Suggested INR therapeutic range for Vitamin K anta gonist therapy: Standard Dose (moderate intensity therapeutic range): 2.0 - 3.0 Higher intensity therapeutic range 2.5 - 3.5 :22 Prothrombin Time (PT) Comments: PERFORMED BY: Haus BioceuticalsJFK Medical CenterSamcpi3574 [facility] [id number] Prothrombin Time 12.9 {sec} (Abnormal) Range: 8.7-11.5 INR 1.2 (Normal) Range: 0.8-1.2 Comments: Reference interval is for non-anticoagulated patients. . Suggested INR therapeutic range for Vitamin K anta gonist therapy: Standard Dose (moderate intensity therapeutic range): 2.0 - 3.0 Higher intensity therapeutic range 2.5 - 3.5 8-Qbo-777916:28 Prothrombin Time (PT) Comments: PERFORMED BY: [facility]6370 [facility] [id number] Prothrombin Time 13.8 {sec} (Abnormal) Range: 8.7-11.5 INR 1.3 (Abnormal) Range: 0.8-1.2 Comments: Reference interval is for non-anticoagulated patients. . Suggested INR therapeutic range for Vitamin K anta gonist therapy: Standard Dose (moderate intensity therapeutic range): 2.0 - 3.0 Higher intensity therapeutic range 2.5 - 3.5 36-Lkk-011474:45 Prothrombin Time (PT) Comments: PERFORMED BY: [facility]6370 [facility] [id number] Prothrombin Time 17.9 {sec} (Abnormal) Range: 8.7-11.5 INR 1.7 (Abnormal) Range: 0.8-1.2 Comments: Reference interval is for non-anticoagulated patients. . Suggested INR therapeutic range for Vitamin K anta gonist therapy: Standard Dose (moderate intensity therapeutic range): 2.0 - 3.0 Higher intensity therapeutic range 2.5 - 3.5 44-Hfe-73729:00 UPPER EXT/NO JT/W/O Radiology Report See Note (Normal) Comments: CLINICAL:73 year old female with a bulge in the deltoid area. No known injury.Painful when reaching up. MRI UPPER EXTREMITY LEFT HUMERUS TECHNIQUE:Standardized fat and water weighted pulse sequences we re obtained in [id number] planes. A skin marker was placed in [...] on 07/12/10 0911 Sign by: Mukund Aguilera 83-Pwd-81371:00 L/S SPINE,MIN 4 VIEWS Radiology Report See Note (Normal) Comments: CLINICAL:Pain. X-RAY EXAMINATION: LUMBAR SPINE TECHNIQUE:Five views (AP, Lateral, oblique and coned down lumbosacral) [facility] COMPARISON:None. FINDINGS:There is generalized osteopenia. The re [...] ll on 07/12/10910 Sign by: Mukund Aguilera 9-Lis-589173:33 Prothrombin Time (PT) Comments: PERFORMED BY: [facility] [id number] Prothrombin Time 24.6 {sec} (Abnormal) Range: 8.7-11.5 INR 2.3 (Abnormal) Range: 0.8-1.2 Comments: Reference interval is for non-anticoagulated patients. . Suggested INR therapeutic range for Vitamin K anta gonist therapy: Standard Dose (moderate intensity therapeutic range): 2.0 - 3.0 Higher intensity therapeutic range 2.5 - 3.5 :36 Prothrombin Time (PT) Comments: PERFORMED BY: [place]70 [facility] Legend3[facility] [id number] Prothrombin Time 34.1 {sec} (Abnormal) Range: 8.7-11.5 INR 3.2 (Abnormal) Range: 0.8-1.2 Comments: Reference interval is for non-anticoagulated patients..Suggested INR therapeutic range for Vitamin Kantagonist therapy:Standard Dose (moderate intensitytherapeutic range): 2.0 - 3.0Higher intensity therapeutic range 2.5 - 3.5 :03 Prothrombin Time (PT) Comments: PERFORMED BY: [facility] [id number] Prothrombin Time 29.1 {sec} (Abnormal) Range: 8.7-11.5 INR 2.7 (Abnormal) Range: 0.8-1.2 Comments: Reference interval is for non-anticoagulated patients..Suggested INR therapeutic range for Vitamin Kantagonist therapy:Standard Dose (moderate intensitytherapeutic range): 2.0 - 3.0Higher intensity therapeutic range 2.5 - 3.5 25-Jpj-204988:59 Prothrombin Time (PT) Comments: PERFORMED BY: [facility]6370 [facility] [id number] INR 1.8 (Abnormal) Range: 0.8-1.2 Comments: Reference interval is for non-anticoagulated patients..Suggested INR therapeutic range for Vitamin Kantagonist therapy:Standard Dose (moderate intensitytherapeutic range): 2.0 - 3.0Higher intensity therapeutic range 2.5 - 3.5 Prothrombin Time 18.9 {sec} Range: 8.7-11.5 (Abnormal) 30-Mar-2010 Triiodothyronine,Free, 2.3 pg/mL (Normal) Comments: PERFORMED BY: [facility]6370 [facility] [id number] 10:59 Serum Range: 2.0-4.4 49-Wlm-228581:59 TSH+Free T4 Comments: PERFORMED BY: [facility]6370 [facility] [id number] T4,Free(Direct) 1.31 ng/dL (Normal) Range: 0.82-1.77 TSH 2.940 {uIU/mL} (Normal) Range: 0.450-4.500 32-Vtl-168317:04 Prothrombin Time (PT) Comments: PERFORMED BY: [facility]6370 [facility] [id number] Prothrombin Time 15.6 {sec} (Abnormal) Range: 8.7-11.5 INR 1.5 (Abnormal) Range: 0.8-1.2 Comments: Reference interval is for non-anticoagulated patients..Suggested INR therapeutic range for Vitamin Kantagonist therapy:Standard Dose (moderate intensitytherapeutic range): 2.0 - 3.0Higher intensity therapeutic range 2.5 - 3.5 :38 Prothrombin Time (PT) Comments: PERFORMED BY: NUVIA Zerimar VenturesHuron [facility]-S[facility] Hospital6370 [facility] [id number] Prothrombin Time 20.2 {sec} (Abnormal) Range: 8.7-11.5 INR 2.0 (Abnormal) Range: 0.8-1.2 Comments: Reference interval is for non-anticoagulated patients..Suggested INR therapeutic range for Vitamin Kantagonist therapy:Standard Dose (moderate intensitytherapeutic range): 2.0 - 3.0Higher intensity therapeutic range 2.5 - 3.5 9-Yvf-252949:03 Microscopic Examination Comments: PATIENT WAS FASTINGPERFORMED BY: NUVIA Zerimar VenturesHuron [facility]-S[facility] Hospital6370 [facility] [id number] Bacteria None seen (Normal) Epithelial Cells (non renal) 0-10 {/hpf} (Normal) Range: 0 - 10 Mucus Threads Present (Normal) RBC 11-30 {/hpf} (Abnormal) Range: 0 - 3 WBC >30 {/hpf} (Abnormal) Range: 0 - 5 :03 NMR LipoProfile Comments: PATIENT WAS FASTINGPERFORMED BY: [employer] Enu6068 [facility] [id number] BY: [facility]erimar VenturesH[facility] Hospital6370 [facility] [id number] Information: [id number] HDL Size 8.8 nm (Abnormal) Comments: Small [...] Comments: PATIENT WAS FASTINGPERFORMED BY: Ana [employer] Mtv9744 [facility] [id number] BY: NUVIA Haus Bioceuticalskayleen ChristiansonCbbhqv[address] [place] [address] [id number] :03 Comments: Written Authorization Received.Authorization received from TEMI MAYNARD 20-29-8441Qcrxnm by Sen Rose 3-Qmy-646756:32 Prothrombin Time (PT) Comments: PERFORMED BY: NUVIA Christiansonlin6370 [facility] [id number] Prothrombin Time 26.6 {sec} (Abnormal) Range: 8.7-11.5 INR 2.7 (Abnormal) Range: 0.8-1.2 Comments: Reference interval is for non-anticoagulated patients..Suggested INR therapeutic range for Vitamin Kantagonist therapy:Standard Dose (moderate intensitytherapeutic range): 2.0 - 3.0Higher intensity therapeutic range 2.5 - 3.5 49-Wjn-724423:40 Prothrombin Time (PT) Comments: PERFORMED BY: NUVIA [employer] Tkopnf4344 [facility] [id number] Prothrombin Time 26.4 {sec} (Abnormal) Range: 8.7-11.5 INR 2.7 (Abnormal) Range: 0.8-1.2 Comments: Reference interval is for non-anticoagulated patients..Suggested INR therapeutic range for Vitamin Kantagonist therapy:Standard Dose (moderate intensitytherapeutic range): 2.0 - 3.0Higher intensity therapeutic range 2.5 - 3.5 :16 Prothrombin Time (PT) Comments: PERFORMED BY: Haus BioceuticalsJFK Medical CenterGhxfjq7796 [facility] [id number] Prothrombin Time 14.1 {sec} (Abnormal) Range: 8.7-11.5 INR 1.4 (Abnormal) Range: 0.8-1.2 Comments: Reference interval is for non-anticoagulated patients..Suggested INR therapeutic range for Vitamin Kantagonist therapy:Standard Dose (moderate intensitytherapeutic range): 2.0 - 3.0Higher intensity therapeutic range 2.5 - 3.5 45-Ofw-069478:04 PT (Prothrobim Time) Comments: inr; PATIENT NOT FASTINGPERFORMED BY: [employer] [id number] Information: ADD DRAW FEE [id number] AND [id number] [id number] (82605) Prothrombin Time 36.2 {sec} (Abnormal) Range: 8.7-11.5 INR 3.7 (Abnormal) Range: 0.8-1.2 Comments: Client Requested FlagReference interval is for non-anticoagulated patients..Suggested INR therapeutic range for Vitamin Kantagonist therapy:Standard Dose (moderate intensitytherapeutic range): 2.0 - 3.0Higher intensity therapeutic range 2.5 - 3.5 6-Kkk-613840:03 TSH (12476) Comments: PATIENT WAS FASTINGPERFORMED BY: Zer[employer] VenturesPeter [place] 0178370 [facility] [id number] TSH 0.329 {uIU/mL} (Abnormal) Range: 0.450-4.500 8-Ulf-745817:03 URINALYSIS, W/ MICRO (79267) Comments: PATIENT WAS FASTINGPERFORMED BY: Zerimar VenturesPeter [place] 0178370 [facility] [id number] Bilirubin Negative (Normal) Microscopic Examination See below: (Normal) Nitrite, Urine Negative (Normal) Occult Blood 2+ (Abnormal) Urobilinogen,Semi-Qn 0.2 mg/dL (Normal) Range: 0.0-1.9 Glucose Negative (Normal) Ketones Negative (Normal) Protein 1+ (Abnormal) WBC Esterase 3+ (Abnormal) Appearance Clear (Normal) pH 6.0 (Normal) Range: 5.0-7.5 Specific [place] 1.024 (Normal) Range: 1.005-1.030 Urine-Color Yellow (Normal) :03 MICROALBUMIN: CREATININE RATIO Comments: PATIENT WAS FASTINGPERFORMED BY: Haus BioceuticalsJFK Medical CenterUvqvaz3465 [facility] [id number] (31309) AND (36457) Microalb/Creat Ratio 76.6 {mg/g_creat} (Abnormal) Range: 0.0-30.0 Creatinine, Urine 298.9 mg/dL (Abnormal) Range: 15.0-278.0 Microalbumin, Urine 229.0 ug/mL (Abnormal) Range: 0.0-17.0 :03 METABOLIC PANEL, COMPREHENSIVE Comments: PATIENT WAS FASTINGPERFORMED BY: Haus BioceuticalsSanta Ana Health CenterRcyixg2124 [facility] [id number] (08132) A/G Ratio 1.5 (Normal) Range: 1.1-2.5 Albumin, [...] mg/dL (Normal) Range: 65-99 :03 LIPID PANEL (78067) Comments: PATIENT WAS FASTINGPERFORMED BY: [facility] PetDorothea Dix Hospital [id number] LDL/HDL Ratio 1.1 {ratio_units} (Normal) Range: 0.0-3.2 [...] MANUAL DIFF Comments: PATIENT WAS FASTINGPERFORMED BY: [employer] [place]70 [facility] [id number] Information: [id number] (49507) Baso (Absolute) 0.0 {x10E3/uL} (Normal) Range: 0.0-0.2 [...] :17 Prothrombin Time (PT) Comments: PERFORMED BY: [employer] [facility] [id number] INR 1.2 (Normal) Range: 0.8-1.2 Comments: Reference interval is for non-anticoagulated patients. . Suggested INR therapeutic range for Vitamin K anta gonist therapy: Standard Dose (moderate intensity therapeutic range): 2.0 - 3.0 Higher intensity therapeutic range 2.5 - 3.5 Prothrombin Time 12.1 {sec} (Abnormal) Range: 8.7-11.5 :56 Prothrombin Time (PT) Comments: PERFORMED BY: [employer] [facility] Legend3[facility] [id number] INR 1.7 (Abnormal) Range: 0.8-1.2 Comments: Reference interval is for non-anticoagulated patients. . Suggested INR therapeutic range for Vitamin K anta gonist therapy: Standard Dose (moderate intensity therapeutic range): 2.0 - 3.0 Higher intensity therapeutic range 2.5 - 3.5 Prothrombin Time 17.0 {sec} (Abnormal) Range: 8.7-11.5 :26 CBC With Differential/Platelet Comments: PERFORMED BY: Haus BioceuticalsJFK Medical CenterZnqzje1023 [facility] [id number] Baso (Absolute) 0.0 {x10E3/uL} (Normal) Range: 0.0-0.2 [...] Comp. Metabolic Panel (14) Comments: PERFORMED BY: Zerimar VenturesCoJFK Medical CenterZocgyp7867 [facility] [id number] A/G Ratio 1.5 (Normal) Range: 1.1-2.5 Albumin, [...] Ratio, Randm Ur Comments: PERFORMED BY: NUVIA LabHuron Valley-Sinai Hospital6370 [facility] [id number] Creatinine, Urine 193.6 mg/dL (Normal) Range: 15.0-278.0 Microalb/Creat Ratio 7.4 {mg/g_creat} (Normal) Range: 0.0-30.0 Microalbumin, Urine 14.3 ug/mL (Normal) Range: 0.0-17.0 :26 NMR LipoProfile Comments: PERFORMED BY: NUVIA [employer] CrowdChat [facility] [id number] Cholesterol, Total 159 mg/dL (Normal) HDL-C 55 [...] :26 Prothrombin Time (PT) Comments: PERFORMED BY: Haus BioceuticalsJFK Medical CenterCfutfp2246 [facility] [id number] INR 1.1 (Normal) Range: 0.8-1.2 Comments: Reference interval is for non-anticoagulated patients. . Suggested INR therapeutic range for Vitamin K anta gonist therapy: Standard Dose (moderate intensity therapeutic range): 2.0 - 3.0 Higher intensity therapeutic range 2.5 - 3.5 Prothrombin Time 11.0 {sec} (Normal) Range: 8.7-11.5 :2 TSH 0.296 {uIU/mL} Comments: PERFORMED BY: Haus BioceuticalsJFK Medical CenterIzlbjg4234 [facility] [id number] (Abnormal) Range: 0.450-4.500 54-Www-541890:33 Prothrombin Time (PT) Comments: PERFORMED BY: Haus BioceuticalsJFK Medical CenterVawtks13[address] [place] [address] [id number] INR 3.3 (Abnormal) Range: 0.8-1.2 Comments: Reference interval is for non-anticoagulated patients. . Suggested INR therapeutic range for Vitamin K anta gonist therapy: Standard Dose (moderate intensity therapeutic range): 2.0 - 3.0 Higher intensity therapeutic range 2.5 - 3.5 Prothrombin Time 31.8 {sec} (Abnormal) Range: 8.7-11.5 :44 Prothrombin Time (PT) Comments: PERFORMED BY: LabGenoEddie Ville 0681270 [facility] [id number] INR 1.1 (Normal) Range: 0.8-1.2 Comments: Reference interval is for non-anticoagulated patients. . Suggested INR therapeutic range for Vitamin K anta gonist therapy: Standard Dose (moderate intensity therapeutic range): 2.0 - 3.0 Higher intensity therapeutic range 2.5 - 3.5 Prothrombin Time 11.4 {sec} (Normal) Range: 8.7-11.5 :53 PT/INR, Office (01205) Comments: PATIENT NOT FASTINGClinical Information: ADD [id number] PERFORMED BY: [employer] Wqrfov7425 [facility] [id number] INR 4.3 (Abnormal) Range: 0.8-1.2 Comments: Reference interval is for non-anticoagulated patients. . Suggested INR therapeutic range for Vitamin K anta gonist therapy: Standard Dose (moderate intensity therapeutic range): 2.0 - 3.0 Higher intensity therapeutic range 2.5 - 3.5 Prothrombin Time 41.2 {sec} (Abnormal) Range: 8.7-11.5 :42 PT/INR, Office (64205) Comments: done>Wf. INR 4.0 (Normal) :56 CBC With Differential/Platelet Comments: PATIENT WAS FASTINGPERFORMED BY: Zerimar VenturesCoEddie Ville 0681270 [facility] [id number] Baso (Absolute) 0.0 {x10E3/uL} (Normal) Range: 0.0-0.2 [...] 11.7-15.0 WBC 4.3 {x10E3/uL} (Normal) Range: 4.0-10.5 43-Qyd-160487:56 Comp. Metabolic Panel (14) Comments: PATIENT WAS FASTINGPERFORMED BY: LabCoJFK Medical CenterZoscke5235 [facility] [id number] A/G Ratio 1.6 (Normal) Range: 1.1-2.5 Albumin, [...] Sodium, Serum 142 mmol/L (Normal) Range: 135-145 80-Zzd-825857:56 Microscopic Examination Comments: PATIENT WAS FASTINGPERFORMED BY: LabHuron Valley-Sinai Hospital6370 [facility] [id number] Bacteria Few (Normal) Cast Type Hyaline casts (Normal) Casts Present {/lpf} (Abnormal) Crystal Type Calcium Oxalate (Normal) Crystals Present (Abnormal) Epithelial Cells (non renal) 0-10 {/hpf} (Normal) Range: 0 - 10 Mucus Threads Present (Normal) RBC 4-10 {/hpf} (Abnormal) Range: 0 - 3 WBC 11-30 {/hpf} (Abnormal) Range: 0 - 5 45-Scg-075516:56 NMR LipoProfile Comments: PATIENT WAS FASTINGPERFORMED BY: Haus BioceuticalsJFK Medical CenterPrxhrx2029 [facility] [id number] HDL-C 65 mg/dL (Normal) Large HDL-P 13.0 [...] 0.110 {uIU/mL} Comments: PATIENT WAS FASTINGPERFORMED BY: Haus BioceuticalsJFK Medical CenterTeobwc9588 [facility] [id number] :56 (Abnormal) Range: 0.450-4.500 98-Djn-834050:56 Urinalysis, Routine Comments: PATIENT WAS FASTINGPERFORMED BY: Haus BioceuticalsJFK Medical CenterSxdnfi6304 [facility] [id number] Appearance Clear (Normal) Bilirubin Negative (Normal) Glucose Negative (Normal) Ketones Negative (Normal) Microscopic Examination See below: (Normal) Nitrite, Urine Negative (Normal) Occult Blood Trace (Abnormal) pH 5.0 (Normal) Range: 5.0-7.5 Protein Negative (Normal) Specific [place] 1.020 (Normal) Range: 1.005-1.030 Urine-Color Yellow (Normal) Urobilinogen,Semi-Qn 0.2 mg/dL (Normal) Range: 0.0-1.9 WBC Esterase 2+ (Abnormal) Vitamin D, 25-Hydroxy 34.8 ng/mL (Normal) Comments: PATIENT WAS FASTINGPERFORMED BY: NUVIA LabCoJFK Medical CenterVerbfx3462 [facility] [place] [id number] 2:56 Range: 32.0-100.0 Comments: Recent studies consider the lower limit of 32.0 ng/mL to be athreshold for optimal health.Sameer KRISHNA. J Nutr. 2004;135(2):317-22. 7-Gui-481585:36 PT/INR, Office (32940) Comments: done>Wf.no change zaida 2 weeks INR 2.7 (Normal) 03-Tbz-332281:04 PT/INR, Office (18336) Comments: done BC INR 2.3 (Normal) 35-Jzy-126890:17 PT/INR, Office (26942) INR 3.2 (Normal) 0-Sqh-619144:14 PT/INR, Office (15788) INR 2.7 (Normal) 30-Lqh-286303:31 LOWER EXT/JT ONLY (ROUTINE) Radiology Report See Note (Normal) Comments: Exam Number: [id number] MRI LEFT KNEE REASON FOR EXAMINATION Post [...] By: BRITNEY JONES M.D. :59 PT/INR, Office (14246) Comments: done kmforgot to take to [place] for 10 days has been back a month and still low INR 1.1 (Normal) :17 TSH 0.01 {uIU/mL} (Abnormal) Range: 0.34-4.82 :55 PT/INR, Office (81503) INR 2.2 (Normal) PT (PROTHROMBIN TIME) INR-2.2 s (Normal) Range: 11.5-13.5 :18 PT/INR, Office (39400) Comments: done>Wf. INR 1.7 (Normal) :58 PT/INR, Office (81906) Comments: 4MG CURRENT DOSE--INR 3.2 NEW DOSE 4 MG 5 DAYS WEEK AND 2 MG 2 DAYS ZAIDA 2 WEEKS INR 3.2 (Normal) PT (PROTHROMBIN TIME) INR-3.2 s (Normal) Range: 11.5-13.5 :23 Prothrombin Time (PT) Comments: PERFORMED BY: LabHuron Valley-Sinai Hospital6370 [facility] [id number] INR 2.1 (Normal) Range: 2.0-3.5 Comments: INR [...] {uIU/mL} (Abnormal) Range: 0.34-4.82 :14 PT/INR, Office (31237) INR 2.0 (Normal) :56 PT/INR, Office (79057) INR 1.4 (Normal) :47 PT/INR, Office (10007) INR 2.9 (Normal) PT (PROTHROMBIN TIME) INR-2.9 s (Normal) Range: 11.5-13.5 :12 PT/INR, Office (36211) INR 2.2 (Normal) :22 PT/INR, Office (08835) INR 1.3 (Normal) Comments: aw 0-Ctq-696725:38 BILAT SCRN DIGITAL & CAD Radiology Report See Note (Normal) Comments: Exam Number: [id number] MAMMOGRAM, BILATERAL SCREENING DIGITAL AND CAD HISTORYRoutine [...] mammograms werealso examined with computer-aided detection software (ImageSparkupReader, [employer].). Reported By: KEYUR MILTON M.D. 4-Thn-910370:38 DEXA BONE DENSITY STUDY (HP) Radiology Report See Note (Normal) Comments: Exam Number: [id number] BONE DENSITOMETRY HISTORYOsteopenia. TECHNIQUE Bone densitometry of [...] By: KEYUR MILTON M.D. :41 PT/INR, Office (83882) Comments: 2.0 ok zaida 2-3 weeks INR 2.0 (Normal) :53 PT/INR, Office (24683) Comments: alt 2/4 and zaida 2 weeks inr 3.2 INR 3.2 (Normal) Comments: aw :10 PT/INR, Office (56100) Comments: done kmno change zaida in 2-3 weeks INR 2.6 (Normal) :52 PT/INR, Office (27046) INR 1.7 (Normal) Comments: aw :24 CULTURE, [...] Comments: GLU,2HPPG 75gm GLUC PPG GLUP from 0810:[id number]. :38 CBCD,SMEAR DIFF CELLS COUNTED 100 (Normal) [...] {uIU/mL} (Normal) Range: 0.34-4.82 :45 PT/INR, Office (33235) Comments: done INR 2.7 (Normal) :16 PRO [...] obstruction) SBO (small bowel obstruction) : Reviewed Speech Professor Letter Indication: SBO (small bowel obstruction) Fatigue [...] kidney disease, stage IV (severe) : Reviewed Speech Professor Letter Indication: Chronic kidney disease, stage IV [...] closed fracture of right hip : Reviewed Speech Professor Letter Indication: Status post-operative repair of closed [...] Lab Indication: Hypothyroidism LYMPHOMA, NOS : Reviewed Speech Professor Letter Indication: LYMPHOMA, NOS Hypertension, benign : [...] Indication: Hyperlipidemia, unspecified LYMPHOMA, NOS : Reviewed Speech Professor Letter Indication: LYMPHOMA, NOS Hyperlipidemia, unspecified : [...] Indication: LYMPHOMA, NOS LYMPHOMA, NOS : Reviewed Speech Professor Letter Indication: LYMPHOMA, NOS Hypothyroidism : Hypothyroidism: [...] Indication: Hypertension, benign LYMPHOMA, NOS : Reviewed Speech Professor Letter Indication: LYMPHOMA, NOS COUGH, NOS : [...] lymph nodes of multiple sites : Reviewed Speech Professor Letter Indication: Nodular lymphoma involving lymph nodes [...] lymph nodes of multiple sites : Reviewed Speech Professor Letter Indication: Nodular lymphoma involving lymph nodes [...] Hyperlipidemia, unspecified Planned Observations Metabolic Panel, Comprehensive ([id number])Indication: Chronic kidney disease, stage IV (severe) On: 6-Mlf-839551:01 Request CBC & PLATELETS (AUTO) ([id number])Indication: Anemia On: 4-Luv-962755:01 Request PT (PROTHROMBIN TIME) ([id number])Indication: Therapeutic drug monitoring On: :12 Request Metabolic Panel, Comprehensive ([id number])Indication: Chronic kidney disease, stage IV (severe) On: 66-Qff-653034:40 Request PT (Prothrobim Time) (65241)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 On: 54-Owy-626736:39 Request Comments: call results directly to Dr Steward [phone] Metabolic Panel, Basic (62881)Indication: Chronic kidney disease, stage IV (severe) On: 92-Fsl-329172:35 Request C-REACTIVE PROTEIN (32292)Indication: CRP elevated On: 21-Bwy-56766:29 Request Sedimentation Rate-ESR (68407)Indication: CRP elevated On: 70-Wur-81334:29 Request Metabolic Panel, Basic (09307)Indication: Abnormal blood finding On: 00-Qjb-889185:30 Request CALCIFIDIOL (63077) VIT D 25Indication: Chronic fatigue On: 1-Ziy-282398:24 Request VITAMIN B-12 (CYANOCOBALAMIN) ([id number])Indication: Chronic fatigue On: 0-Clb-408010:24 Request SED RATE ERYTHROCYTE (35923)Indication: Chronic fatigue On: 9-Hjn-008906:23 Request METABOLIC PANEL, COMPREHENSIVE (78370)Indication: Chronic fatigue On: 4-Kws-357453:23 Request C-REACTIVE PROTEIN (04173)Indication: Chronic fatigue On: :23 Request CBC (AUTO) (97342)Indication: Chronic fatigue On: :23 Request CBC & PLATELETS (AUTO) ([id number])Indication: Chronic kidney disease, stage IV (severe) On: :25 Request Comments: to Dr. Felix Parra IRON & TOTAL IRON BINDING CAPACITY ([id number])Indication: Chronic kidney disease, stage IV (severe) On: :25 Request Comments: to Dr. Felix Parra PT (PROTHROMBIN TIME) ([id number])Indication: Chronic kidney disease, stage IV (severe) On: :24 Request Comments: to Dr. 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 On: 37-Mte-298955:00 Request Metabolic Panel, Basic (58369)Indication: Hypertension, benign On: 0-Qwo-652794:44 Request FECAL OCCULT- Tubes sent home ([id number])Indication: Encounter for screening for malignant neoplasm of colon (Renamed from Special screening for malignant neoplasms, colon) On: 1-Jcg-971804:25 Request PT (Prothrobim Time) ([id number])Indication: group home current use of anticoagulant On: 9-Krl-244181:08 Request URINALYSIS, W/ MICRO (28347)Indication: Hypertension, benign On: 14-Lju-942833:45 Request MICROALBUMIN: CREATININE RATIO (24724) AND (95903)Indication: Hypertension, benign On: 79-Vei-440995:45 Request LIPID PANEL (50264)Indication: Hyperlipidemia, unspecified On: 53-Grb-445239:45 Request D-Dimer (50695)Indication: Difficulty breathing On: 29-Jsm-324109:09 Request Vitamin D Hydroxy (44221)Indication: Osteopenia On: 33-Cfu-960235:16 Request CBC W/AUTO DIFF WBC (23569)Indication: Hyperlipidemia, unspecified On: 39-Xsc-976504:19 Request Comments: pls assure i get copy of all lab i ordered METABOLIC PANEL, COMPREHENSIVE ([id number])Indication: Hyperlipidemia, unspecified On: 83-Jhp-751778:17 Request LIPID PANEL (04653)Indication: Hyperlipidemia, unspecified On: 83-Wiw-642523:17 Request URINALYSIS, W/ MICRO ([id number])Indication: Hypertension, benign On: 00-Mxw-891848:11 Request MICROALBUMIN: CREATININE RATIO ([id number]) AND (07996)Indication: Hypertension, benign On: 40-Kac-831341:11 Request CALCIFIDIOL (05244) VIT D 25Indication: FATIGUE On: :31 Request Folate (99901)Indication: FATIGUE On: :31 Request VITAMIN B-12 (CYANOCOBALAMIN) (35102)Indication: FATIGUE On: :31 Request SED RATE ERYTHROCYTE ([id number])Indication: FATIGUE On: :31 Request RHEUMATOID FACTOR-QUANT (12118)Indication: FATIGUE On: :31 Request METABOLIC PANEL, COMPREHENSIVE (49661)Indication: FATIGUE On: :31 Request C-REACTIVE PROTEIN (63588)Indication: FATIGUE On: :31 Request CBC (AUTO) ([id number])Indication: FATIGUE On: :31 Request ZAY (ANTINUCLEAR ANTIBODY) ([id number])Indication: FATIGUE On: :31 Request URINALYSIS, W/ MICRO (85083)Indication: Hypertension, benign On: :30 Request MICROALBUMIN: CREATININE RATIO (40739) AND (56098)Indication: Hypertension, benign On: :30 Request LIPID PANEL (90030)Indication: Hyperlipidemia, unspecified On: :30 Request URINE ANURAG CULTURE-TYSON COL COUNT (71934)Indication: Urinary frequency On: :06 Request URINALYSIS, W/ MICRO (83483)Indication: Hypertension, benign On: 27-Tvb-899168:56 Request MICROALBUMIN: CREATININE RATIO ([id number]) AND (16842)Indication: Hypertension, benign On: 86-Lhx-739642:56 Request METABOLIC PANEL, COMPREHENSIVE (20959)Indication: Hypertension, benign On: 71-Mtd-355425:56 Request CBC WITH MANUAL DIFF (70913)Indication: Hypertension, benign On: 34-Rir-303957:56 Request LIPID PANEL ([id number])Indication: Hyperlipidemia, unspecified On: 55-Rrw-965176:56 Request CBC with manual diff (75385)Indication: LYMPHOMA, NOS On: 0-Svb-847401:15 Request Comments: pls fax a copy to [phone] PT (Prothrobim Time) ([id number])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 On: 4-Pth-690738:14 Request Comments: pls fax a copy to [phone] PTT (Activated Partial Thromboplastin Time) (74476)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 On: 9-Rdb-044212:14 Request LDH (LD) (LACTATE DEHYDROGENASE) (41487)Indication: LYMPHADENITIS, ACUTE (683.) On: 30-Udi-504598:37 Request SED RATE ERYTHROCYTE (66882)Indication: LYMPHADENITIS, ACUTE (683.) On: 38-Grf-600609:36 Request C-REACTIVE PROTEIN (94717)Indication: LYMPHADENITIS, ACUTE (683.) On: 22-Sbo-710835:36 Request CBC WITH MANUAL DIFF (80986)Indication: LYMPHADENITIS, ACUTE (683.) On: 48-Mqs-198388:36 Request METABOLIC PANEL, COMPREHENSIVE (23909)Indication: LYMPHADENITIS, ACUTE (683.) On: 97-Vvn-628656:36 Request CALCIUM, IONIZED (23389)Indication: Hypercalcemia On: :03 Request CALCIUM SERUM (00658)Indication: Hypercalcemia On: 2-Ebm-413631:03 Request Metabolic Panel, Comprehensive (42493)Indication: Hyperlipidemia, unspecified On: 48-Uco-848088:33 Request T4, FREE (THYROXINE) (84571)Indication: Hypothyroidism On: 54-Hjk-418982:15 Request T3, FREE (TRIDOTHYRONINE) (48959)Indication: Hypothyroidism On: 39-Yav-872715:15 Request LIPOPROTEIN, BLD, BY NMR ([id number])Indication: Hypertension, benign On: 1-Jnf-394894:50 Request METABOLIC PANEL, COMPREHENSIVE (06672)Indication: Hypertension, benign On: 51-Orr-764412:52 Request MICROALBUMIN: CREATININE RATIO (79729) AND ([id number])Indication: Hypertension, benign On: :52 Request LIPOPROTEIN, BLD, BY NMR ([id number])Indication: Hypertension, benign On: 05-Kab-568042:52 Request LIPID PANEL ([id number])Indication: Hypertension, benign On: :52 Request CBC WITH MANUAL DIFF ([id number])Indication: Hypertension, benign On: 34-Feq-333996:52 Request Vitamin D Hydroxy (33769)Indication: Osteoporosis On: 1-Rou-067739:35 Request URINALYSIS W/O MICRO ([id number])Indication: Hypertension, benign On: 0-Ldw-401859:35 Request MICROALBUMIN: CREATININE RATIO (59335) AND ([id number])Indication: Hypertension, benign On: 9-Swi-344512:35 Request METABOLIC PANEL, COMPREHENSIVE (98973)Indication: Hypertension, benign On: :35 Request LIPOPROTEIN, BLD, BY NMR ([id number])Indication: Hypertension, benign On: 6-Ndy-911615:35 Request LIPID PANEL ([id number])Indication: Hypertension, benign On: 6-Gqs-863286:35 Request CBC WITH MANUAL DIFF ([id number])Indication: Hypertension, benign On: 9-Vyh-010847:35 Request PT/INR, Office ([id number])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 On: :32 Request Comments: done awinr 2.8 same dose zaida 2-3 weeks PT/INR, Office ([id number])Indication: Other pulmonary embolism and infarction On: :55 Request URINALYSIS W/O MICRO ([id number])Indication: Hypertension, benign On: :47 Request MICROALBUMIN URINE QUANT ([id number])Indication: Hypertension, benign On: :47 Request LIPID PANEL ([id number])Indication: Hypertension, benign On: :47 Request METABOLIC PANEL, COMPREHENSIVE ([id number])Indication: Hypertension, benign On: :47 Request CBC WITH MANUAL DIFF ([id number])Indication: Hypertension, benign On: :47 Request PT/INR, Office ([id number])Indication: Other pulmonary embolism and infarction On: 09-Nfv-649636:19 Request PT/INR, Office ([id number])Indication: Other pulmonary embolism and infarction On: 80-Lxq-827070:49 Request Glucose, PP/2 Hour (12440)Indication: Family history of diabetes mellitus On: :17 Request URINALYSIS W/O MICRO ([id number])Indication: Hypertension, benign On: :17 Request METABOLIC PANEL, COMPREHENSIVE (13294)Indication: Hypertension, benign On: :17 Request MICROALBUMIN URINE QUANT ([id number])Indication: Hypertension, benign On: :17 Request LIPID PANEL ([id number])Indication: Hypertension, benign On: :17 Request CBC WITH MANUAL DIFF ([id number])Indication: Hypertension, benign On: :17 Request PT/INR, Office (22843) On: :29 Request Planned Encounters Medical; 6 Week FU - On: 15-Aug-2018 11:00 [facility] Anya Steward DO, DO, Kathleen Planned Procedures CT - Abdomen (Without Contrast)By: On: 03-Jan-2018 Intent Anya Steward DO, DO, Kathleen CT SCAN OF ABDOMEN WITH CONTRAST On: 22-Dec-2017 Intent ([id number])By: Anya Steward DO, DO, Kathleen CT - Abdomen & Pelvis (IV Contrast On: 19-Jun-2017 Intent Needed)By: Anya Steward DO, DO, Kathleen PFT - CompleteBy: Nichelle MURRIETA, On: 15-Jun-2017 Intent Anya Dumont DO Comments: with DLCO B 12 Injection, 1000 mcg (J3420)By: On: 15-Jun-2017 Intent Anya Steward DO, DO, Comments: 1ml given lt dltd lot [id number] exp 09/18 Anya Radiology - Chest- PA and LatBy: On: 15-Jun-2017 Intent Anya Steward DO, DO, Kathleen Spirometry ([id number])By: Nichelle MURRIETA, On: 15-Jun-2017 Intent Anya Dumont DO Comments: moderate obstruction ELECTROCARDIOGRAM, COMPLETE (ECG) On: 15-Jun-2017 Intent ([id number])By: Anya Steward DO Comments: nsr no acute chg Anya Steward DO Radiology - Abdomen SeriesBy: On: 15-May-2017 Intent Yolanda Zarco SCREENING DIGITAL TOMOSYNTHESIS OF On: 14-Dec-2016 Intent BREAST ([id number])By: Anya Steward DO, DO, Kathleen MRI OF THORACIC SPINE WITHOUT On: 05-Dec-2016 Intent CONTRAST (12263)By: Anya Steward DO, DO, Kathleen Inhaler Demo (16646)By: Nichelle MURRIETA, On: 23-Sep-2016 Intent Anya Dumont DO Spirometry (06170)By: Nichelle MURRIETA, On: 23-Sep-2016 Intent Anya Dumont DO Comments: restrictive pattern Radiology - Chest- PA and LatBy: On: 23-Sep-2016 Intent Anya Steward DO, DO, Kathleen Aerosol Treatment (93414)By: Nichelle On: 23-Sep-2016 Intent DO, Anya Nichelle DO, Anya Comments: 0.83% albulterol more a/e more noisy with diffuse inspir and exp wheeze DEXA SCAN AXIAL SKELETON (04821)By: On: 02-Nov-2015 Intent Nichelle DOAnya Nichelle DO, Anya MAMMOGRAM, SCREENING, BOTH BREAST On: 02-Nov-2015 Intent ([id number])By: Anya Steward DO Nichelle DOAnya Inhaler Demo (51898)By: Nichelle DO, On: 07-Oct-2015 Intent Anya Nichelle DO, Anya Aerosol Treatment (55872)By: Nichelle On: 07-Oct-2015 Intent DOAnya Nichelle DOAnya [...] CHEST FOR PULMONARY EMBOLISM Comments: Pls call [phone] with wet read ([id number])By: Nichelle DOAnya Nichelle DOAnya Radiology - ChestBy: Nichelle DO, On: 14-Jan-2015 Intent Anya Nichelle DO Anya OtherBy: Nichelle DO Anya Nichelle On: 14-Jan-2015 Intent DOBelaAnya Comments: 3-phase bone scan-- history of lymphoma and osteopenia Dhjvfltcw-Xpf-Svxtx (65035)By: On: 12-Dec-2014 Intent Nichelle DOAnya Nichelle DO, Anya DEXA SCAN AXIAL SKELETON (39004)By: On: 19-Nov-2014 Intent Nichelle DOBelaAnya Nichelle DO, Anya Radiology - Hip - RightBy: Nichelle On: 22-Oct-2014 Intent Anya MURRIETA DO, Kathleen Prevnar 13 (57983)By: Nichelle MURRIETA, On: 10-Jul-2014 Intent Anya Dumont DO EKG (26864)By: Anya Steward DO On: 10-Jul-2014 Intent Anya Steward DO Comments: sinus nicolas noacute chg FLU VAC, SPLIT, >3 YEARS, INTRAMUSC On: 22-May-2013 Intent (05446)By: Sariah Brantley LPN Comments: lot [id number] 2013site/route L thomas, IMamt 0.5mlVIS and ABN signed when applicableChebeaumont hospital, [facility] ADMINISTRATION OF INFLUENZA VIRUS On: 22-May-2013 Intent VACCINE (G0008)By: Sariah Brantley LPN B 12 Injection, 1000 mcg (J3420)By: On: 15-Apr-2013 Intent Akosua Gannon Comments: Lot:[id number]:Dose:1mlRoute:IMSite:l armGiven By:OLIVIER signed Eprescribed prescriptions (G8553)By: On: 15-Apr-2013 Intent Akosua Gannon EKG (13234)By: Anya Steward DO On: 18-Feb-2013 Intent Anya Steward DO Comments: nsr no acute chg B 12 Injection, 1000 mcg (J3420)By: On: 18-Feb-2013 Intent Anya Steward DO, DO, Comments: lot: [id number]: 01/11site/route: R deltoid/IMamt: 1mLVIS signed when applicableCheNorthwest [facility] Center Anya TDAP VACCINE >7 IM (72354)By: Nichelle On: 18-Feb-2013 Intent Anya MURRIETA DO, Kathleen Comments: lot: [id number]: 05/08/15site/route: L deltoid/IMamt: 0.5mLVIS signed when applicable: yesChelslee [facility] MAMMOGRAM, SCREENING, BOTH BREASTS On: 18-Feb-2013 Intent (22092)By: Anya Steward DO Comments: dx screening Anya Steward DO Eprescribed prescriptions (G8553)By: On: 18-Feb-2013 Intent Yolanda Dove LPN Toradol Injection, 30 mg (J1885)By: On: 13-Nov-2012 Intent Madonna Nation LPN Comments: Lot #[id number]-7/14Site-right hipDose-30mggiven by: Yony Nation LPN Radiology - ChestBy: Miri Polanco CNP On: 13-Nov-2012 Intent E Comments: attention Rt ribs SPECIMEN HNDLNG/TRNSPRT, OFFC > LAB On: 24-Sep-2012 Intent (67386)By: Sariah Brantley LPN Eprescribed prescriptions (G8553)By: On: 06-Sep-2012 Intent Anya Steward DO, DO, Kathleen FLU VAC, SPLIT, >3 YEARS, INTRAMUSC On: 08-Jun-2012 Intent (57303)By: Miri Polanco CNP Comments: Lot:[id number]:6.13Amt:prefilled syringeSite: L Dltd, IMGiven by: ELICEO EspanaVIS signed ADMINISTRATION OF INFLUENZA VIRUS On: 08-Jun-2012 Intent VACCINE (G0008)By: Miri Polanco CNP Eprescribed prescriptions (G8553)By: On: 04-Apr-2012 Intent Miri Polanco CNP SPECIMEN HANDLING/TRANSPORT On: 04-Apr-2012 Intent (94750)By: Sariah Brantley LPN EKG (39065)By: Anya Steward DO On: 22-Jun-2011 Intent Anya [...] SPLIT, >3 YEARS, INTRAMUSC On: 25-May-2011 Intent (62323)By: Anya Steward DO Comments: 0.5cc given im lt arm lot [id number] exp 01-28-12 Nichelle DO, Anya ADMINISTRATION OF INFLUENZA VIRUS On: 25-May-2011 Intent VACCINE (G0008)By: Anya Steward DO, DO, Kathleen CT - Abdomen & Pelvis (IV Contrast On: 25-May-2011 Intent Needed)-- attention to mass in R groin-- pt has lymphoma in remissionBy: Anya Steward DO, DO, Kathleen Solu -Medrol Injection, 125 mg On: 18-Apr-2011 Intent (J2930)By: Miri Polanco CNP Comments: Lot #[id number]-L hip, IMDose 125mggiven by:DEYANIRA MRI - BrainBy: Miri Polanco CNP On: 17-Mar-2011 Intent Comments: today if possible Carotid DopplerBy: Miri Polanco CNP On: 17-Mar-2011 Intent DXA, BONE DENSITY, AXIAL SKELETON On: 23-Dec-2010 Intent (66951)By: Anya Steward DO, DO, Kathleen EKG (58753)By: Anya Steward DO On: 23-Dec-2010 Intent Anya [...] SPLIT, >3 YEARS, INTRAMUSC On: 07-Jul-2010 Intent (45800)By: Yolanda Dove LPN Comments: 0.5cc given im lt arm lot [id number] 4p exp 4-11 ADMINISTRATION OF INFLUENZA VIRUS On: 07-Jul-2010 Intent VACCINE (G0008)By: Yolanda Dove LPN ADMINISTRATION OF PNEUMOCOCCAL On: 13-Apr-2009 Intent VACCINE (G0009)By: Anya Steward DO, DO, Kathleen PNEUM VAC ADLT/IMUMNOSPR, SBC/INTRM On: 13-Apr-2009 Intent (82263)By: Anya Steward DO Comments: 0.5cc given im rt dltd lot [id number] exp 01-01-10 Anya Steward DO EKG (98417)By: Yolanda Dove LPN On: 13-Apr-2009 Intent Comments: rob beckwith no acute changes IMMUNIZ ADMNIN, 1 VAC, SNGL/COMBO On: 13-Apr-2009 Intent (99557)By: Yolanda Dove LPN FLU VAC, SPLIT, >3 YEARS, INTRAMUSC On: 13-Apr-2009 Intent (07331)By: Yolanda Dove LPN Comments: rob andrade 0.5 cc given im [place] lot [id number] 4p exp 12-07 MRI - Knee(s) - LeftBy: Nichelle MURRIETA, On: 20-Jun-2008 Intent Anya Dumont DO EKG (37529)By: Anya Steward DO On: 18-Feb-2008 Intent Anya Steward DO Comments: NSR NO ACUTE CHANGES--NONSPECIFIC CHANGESNO CHANGES DXA, BONE DENSITY, AXIAL SKELETON On: 09-Jul-2007 Intent (62406)By: Anya Steward DO, DO, Kathleen MAMMOGRAM, SCREENING, BOTH BREASTS On: 09-Jul-2007 Intent (16333)By: Anya Steward DO, DO, Kathleen EKG (98479)By: Anya Steward DO On: 28-Feb-2007 Intent Anya [...] pneumonia : Patient Instructions Indication: Walking pneumonia group home current use of anticoagulant : Patient Instructions 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 [facility] Office Visit On: 11-Jul-2017 10:35 Encounter Reason: Follow up hospital - Reason for ER visit: note: (sbo she was at [facility] er 2 times and sent her home still had pain so sent her to [facility] where she had a procedure that relieved [...] Edema extremities, Chronic systolic congestive heart failure, group home current use of anticoagulant [facility] [...] due to stage 3 chronic kidney disease, 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 The patient has noticed [...] and other. 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 Encounter Diagnosis: Hypothyroidism (244.9), Nodular lymphoma involving [...] The patient does have 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 The patient has noticed dissatisfaction with life, dropping activities and interests, feeling helpless, feeling worthless, lack of energy and thinking mos t people are better off than them. Other providers contributing to the patient's care are automobile appraiser (Dr. Martino) and other: (Dr. Shields for [...] cough or fatigue.Encounter Diagnosis: PHARYNGITIS, ACUTE (462.), [place] eye (372.03) [facility] Office Visit [...] [facility] End: 10-Apr-2006 14:29 Payers MedicareAARP/[facility]ICapoor[facility] Duenas; kenn guarantor
--- OUTSIDE RECORDS SUMMARY | 2018-08-24 20:31 | XMS RPT_ITS | Continuity of Care Document ---
:1935 Author Organization [facility] Address [address] [place] [address] Phone Care Team Providers Name Role Phone Anya Steward DO Unavailable Dr. Alexey Shields Unavailable Guicho Rowe DO Unavailable [facility] Unavailable Daniel Hawk Unavailable Unavailable ELICEO Dove Unavailable Unavailable Long Vianey FENTON Unavailable Unavailable Yolanda Zarco Unavailable Unavailable Alexa Razo Unavailable Unavailable Unavailable [...] sinusitis, unspecified (J01.90, 461.9) Status: Active Anemia due to stage 3 [...] kidney disease, stage IV (severe) (N18.4, 585.4) Status: Active Chronic systolic congestive heart failure [...] colon (K57.30, 562.10) Comments: stable Status: Active Dysuria (R30.0, 788.1) Status: Active [...] lower quadrant pain (R10.32, 789.04) Status: Active nursing home current use of anticoagulant (Z79.01, V58.61) [...] ribshistory of nonhodgkins lymphoma being seen by [place] Status: Active SBO (small bowel obstruction) (K56.609, [...] MG Oral Tablet Disintegrating 1 (one) Tablet [id number] for 30 days Quantity: 60 {Tablet} Refills: 1 Ordered:14-Jun-2018 Vianey Burr LPN Start : 14-Jun-2018 Active Amoxicillin-Pot Clavulanate 875-125 MG Oral Tablet 1 (one) Tablet bid for 10 days Quantity: 20 {Tablet} Refills: 0 Ordered:14-Jun-2018 Yolanda Zarco Start : 14-Jun-2018 Active Calcium Carbonate-Vitamin D 500-400 MG-UNIT Oral Tablet 1 (one) Tablet daily for 0 days Quantity: 30 {Tablet} Refills: 0 Ordered:12-Jul-2016 Miri Polanco CNP Start : 12-Jul-2016 Active Citalopram Hydrobromide 20 MG Oral Tablet 1 (one) Tablet qd for 90 days Quantity: 90 {Tablet} Refills: 1 Ordered:22-Jan-2018 Dorie Steward DO, DO, Kathleen Start : 22-Jan-2018 Active Iron 325 (65 Fe) MG Oral [...] DO, DO, Kathleen Start : 15-May-2017 Active ALEVE, 220MG (Oral Tablet) 2 (two) Tablet Twice daily for 0 days Refills: 0 Ordered:31-Mar-2011 KRISTY Duval Start : 04-Jun-2007 End : 31-Mar-2011 Inactive AUGMENTIN, 875-125MG (Oral Tablet) 1 Tablet [...] End : 15-Apr-2013 Inactive FOSAMAX PLUS D, [id number] (Oral Tablet) 1 Tablet QW for 0 [...] Quantity: 10 {Tablet} Refills: 0 Ordered:11-Jul-2017 Yolanda Doev LPN Start : 20-Jun-2017 End : 11-Jul-2017 [...] 90 {Tablet_ER_24HR} Refills: 3 Ordered:29-Jun-2015 Yolanda Dove LPN Start : 13-Aug-2012 End : 29-Jun-2015 Inactive [...] bid for 14 days Refills: 0 Ordered:25-May-2011 Sherri LICONAMiri E Start : 18-Apr-2011 End : 02-May-2011 Inactive [...] 12-Jul-2016 End : 11-Aug-2016 Inactive Vitamin D3 13103 UNIT Oral Tablet 1 (one) Tablet once [...] NOS (451.9) Status: Inactive as of 03-Aug-2009 [facility] (372.03) Status: Inactive as of 18-Feb-2013 [...] Comments: Dr Lion 05/2016 Date Value Details 07-May-2018 Echo, Complete w/ Contrast Result: Comments: See Note; NOTES: [facility] Cardiovascular Services [address] [place] [address] Echo Complete W/ Contrast 05/07/18 1404 MR#: [id number] Acct: [id number] Name: SALMA GONSALVES Rep #: [id number] : 1935 82 From: Fred Huerta MD Attending Dr: JARRELL KATE MD Status: REG CLI Ordering Dr: Jarrell Kate MD Date: 05/07/18 Location: [facility] Sex: F C Admitted: Reason For Study: [...] Date Dictated: 05/07/18 1404 Date Transcribed: 05/07/181625 Improvement Leader: Signed 28-Feb-2018 Oncology Visit Report Result: Comments: See Note; NOTES: [facility] Oncology [address] [place] [address] OFFICE VISIT Date of Service: 02/28/18 1508 MR#: [id number] Acct: [id number] Name: FABIO DUENAS Kenn Rep #: [id number] : 1935 From: Keaton Young MD Age/Sex: [...] in 05/2017. She was transferred to in [facility] and, passed hard fecal material with resolution [...] Surgical: Hernia repair Other Surgical History: RUE KETCHIKAN FISTULA FOR ESRD BOWEL RESECTION WITH COLOSTOMY [...] Code Visit Office Visits / Cons ults: 61649 OV L4 Est 02/28/18 1515 <Electronically signed by Keaton Young MD> Date Keaton Young MD Cosigner Signature: Date __ (if applicable) CC: 18-Jan-2018 Downtime Report Result: Comments: See Note; NOTES: [facility] Medical Records Department [address] [place] [address] Downtime Report MR#: [id number] Acct: [id number] Name: ERWINANASTASIYA REEVESMARY Hawk Rep #: [id number] : 1935 82 From: Erasto Cutler PCP: Anya Steward DO Status: REG CLI This patient was seen during an EMR downtime January 01, 2018 - January 08, 2018. This patient may have a combinatio n of paper and electronic documentation or all paper documentation. All documentation is viewable within the e-chart portion of [facility] for each patient visit. 04-Jan-2018 Abdomen without IV Contrast Result: Comments: See Note; NOTES: [facility] Imaging Services [address] [place] [address] Abdomen without IV Contrast MR#: [id number] Acct: [id number] Name: SALMA DUENAS Rep #: [id number] : 1935 F 82 From: Nereida Gary MD PCP: Anya Steward DO Status: REG CLI Study: Abdomen without IV Contrast Date of Exam: 01/04/18 Exam# [id number] Ordering Dr: Anya Steward DO STUDY: CT [...] Tel , Service support , Fax CC: Anyacolin Steward Improvement Leader: Signed 08-Aug-2017 Echocardiogram Complete Result: Comments: See Note; NOTES: [facility] Cardiovascular Services [address] [place] [address] Echo Complete 08/08/17 1308 MR#: [id number] Acct: [id number] Name: SALMA DUENAS Rep #: [id number] : 1935 81 From: Sergio Rivero MD [...] Performed By: Nicole Shepherd, KYM, RVT 08/08/17 1725 Date Sergio Rivero MD CC: Keaton Young MD; Anya Steward DO Date Dictated: 08/08/17 1308 Date Transcribed: 08/08/17 1725 Improvement Leader: Signed 07-Aug-2017 Venous Duplex Lower Extremity Result: Comments: See Note; NOTES: [facility] Services [address] [place] [address] Venous Duplex US - Jeff Extrem 08/07/17 1230 MR#: [id number] Acct: [id number] Name: SALMA DUENAS Rep #: [id number] : 1935 81 From: Jose E Armstrong [...] Armstrong MD on 08/07/2017 05:36 PM 08/07/17 1736 Date Jose E Armstrong MD CC: Anya Steward DO; Felice Aly DO Date Dictated: 08/07/17 1230 Date Transcribed: 08/07/17 935 Improvement Leader: Signed 07-Aug-2017 Discharge Instruction Result: Comments: See Note; NOTES: [facility] Records Department [address] [place] [address] Discharge Instruction 08/07/17 1454 MR#: [id number] Acct: [id number] Name: RONA LrSALMA A Rep #: [id number] : 1935 81 From: Felice Aly DO [...] your Primary Care Provider. Call [facility] ([phone]) or report to the closest Emergency Room. Call 911 if necessary. 08/07/17 1454 <Electronically signed by Felice Aly DO> Date Felice Aly DO Cosigner Signature (If Indicated): Date CC: Anya Steward DO 07-Aug-2017 Emergency Department Summary Result: Comments: See Note; NOTES: [facility] Medical Records Department [address] [facility] [facility] [place] [address] Emergency Department Summary 08/07/17 1450 MR#: [id number] Acct: [id number] Name: SALMA DUENAS Rep #: [id number] : 1935 81 From: Felice Aly DO PCP: Anya Steward DO Status: PRE ER - ER Visit Summary Date of Service: 08/07/17 Chief Complaint: [[place] to both legs and concern for DVT.] [...] lower extremities] This note was generated with Task Messengeration software. It may contain incorrect words, spelling, and punctuation that were not noted in review of the chart prior to signing ED Disposition - Plan for ED Patient: Chief Complaint: Edema Referrals: Anya Steward, [Primary Care Provider] - What to do if you have Problems For any increased pain, shortness of breath, bleeding, nausea or vomiting, chest pain, or any unexpected problems, contact your Primary Care Provider. Call [facility] ([phone]) or r alyrt to the closest Emergency Room. Call 911 if necessary. 08/07/17 1456 <Electronically signed by Felice Tarieliana MURRIETA> Date Felice Aly DO Cosigner Signature (If Indicated): Date CC: Anya Steward DO 02-Aug-2017 Abdomen/Pelvis without Cont Result: Comments: See Note; NOTES: [facility] Imaging Services [address] [place] [address] Abdomen/Pelvis without Cont MR#: [id number] Acct: [id number] Name: SALMA DUENAS Rep #: [id number] : 1935 F 81 From: David Wolfe MD PCP: Anya Steward DO Status: REG CLI Study: Abdomen/Pelvis without Cont Date of Exam: 08/02/17 Exam# [id number] Ordering Dr: Radha Bennett STUDY: CT ABDOMEN [...] Sagittal and coronal images were reconstructed. COMPARISON: 06.26.17 FINDINGS: Lower lobe pulmonary fibrosis. The heart [...] Service support , CC: Anya Bennett NP Improvement Leader: Signed 10-Jul-2017 Chest PA and Lateral Result: Comments: See Note; NOTES: [facility] Imaging Services [address] [place] [address] Chest PA and Lateral MR#: [id number] Acct: [id number] Name: SALMA DUENAS Kenn Rep #: [id number] : 1935 F 81 From: Shamir Leigh DO PCP: Anya Steward DO Status: REG CLI Study: Chest PA and Lateral Date of Exam: 07/10/17 Exam# [id number] Ordering Dr: Anya Steward DO STUDY: X-RA [...] Shamir Leigh DO at 15:44 EST Tel [phone], Service support , CC: Anya Steward DO Improvement Leader: Signed 26-Jun-2017 Consultation Result: Comments: See Note; NOTES: [facility] Medical Records Department [address] [place] [address] Consultation 06/26/17 1626 MR#: [id number] Acct: [id number] Name: SALMA DUENAS Rep #: [id number] : 1935 81 From: Jasbir Luis MD PCP: Anya Steward DO Status: REG ER Y Location: ED Problem List (1) Partial obstruction of small intestine Status: Acute (2) Peristo mal hernia Status: Acute Reason for Consult Date of Consultation: 06/26/17 History of Present Illness: The patient is a 81 year old F who was admitted to [facility] with a GI bleed and an [...] time., - - colostomy. 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: No pertinent PROGRAM TECHNICIAN history Smoking Status: Never smoker - *Family [...] hernia (Acute) - Physical Exam General: Alert, [place] ed x3 HEENT: Atraumatic, PERRLA, EOMI, Normocephalic [...] Department Summary Result: Comments: See Note; NOTES: [facility] Medical Records Department [address] [facility] [place] [address] Emergency Department Summary 06/26/17 1606 MR#: [id number] Acct: [id number] Name: ERWINANASTASIYA REEVESMARY Hawk Rep #: [id number] : 1935 81 From: Anderson Sherwood MD [...] of hypothyroidism This note was generated with FlexyMind dictation software. It may contain incorrect words, spelling, and punctuation that were not noted in review of the chart prior to signing ED Disposition - Plan for ED Patient: Chief Complaint: Constipation Referrals: Anya Steward, DO [Primary Care Provider] - What to do if y ou have Problems For any increased pain, shortness of breath, bleeding, nausea or vomiting, chest pain, or any unexpected problems, contact your Primary Care Provider. Call [facility] ) or report to the closest Emergency Room. Call 911 if necessary. 06/26/17 5224 <Electronically signed by Anderosn Sherwood MD> Date Anderson Linnigner Signature (If Indicated): Date CC: Jasbir Luis MD; Anya Steward DO 26-Jun-2017 Abdomen/Pel W ORAL Cont Only Result: Comments: See Note; NOTES: [facility] Imaging Services [address] [place] [address] Abdomen/Pel W ORAL Cont Only MR#: [id number] Acct: [id number] Name: SALMA DUENAS Rep #: [id number] : 1935 F 81 From: Nikhil Denson MD PCP: Anya Steward DO Status: REG ER Study: Abdomen/Pel W ORAL Cont Only Date of Exam: 06/26/17 Exam# [id number] Ordering Dr: Anderson Sherwood MD STUDY: CT [...] Nikhil Denson MD at 14:59 EST , [facility] support , CC: Anya Steward DO; Anderson Sherwood MD Improvement Leader: Signed 21-Jun-2017 Emergency Department Summary Result: Comments: See Note; NOTES: [facility] Medical Records Department [address] [place] [address] Emergency Department Summary 06/21/17 1436 MR#: [id number] Acct: [id number] Name: YULISSASALMA A Rep #: [id number] : 1935 81 From: Nishi Murphy MD [...] evaluation underway This note was generated with FlexyMind dictation software. It may contain incorrect words, [...] problems, contact your Primary Care Provider. Call [facility] ([phone]) or report to the closest Emergency Room. Call 911 if necessary. 06/21/17 1536 <Electronically signed by Vivienne Murphy MD> Date Nishi Murphy MD Cosigner Signature (If Indicated): Date CC: Anya Steward DO 21-Jun-2017 Abd Inc Decub and/or Erect Result: Comments: See Note; NOTES: [facility] Imaging Services [address] [place] [address] Abd Inc Decub and/or Erect MR#: [id number] Acct: [id number] Name: ERWINLALASALMA A Rep # : [id number] : 1935 F 81 From: Vanessa Berrios MD PCP: Anya Steward DO Status: [facility] ER Study: Abd Inc Decub and/or Erect Date of Exam: 06/21/17 Exam# [id number] Ordering Dr: Herbert Murphy MD STUDY: X-RAY [...] MD at 16:4 2 EST Tel Direct: [phone], Service support , CC: Anya Steward DO; Nishi Murphy MD Improvement Leader: Signed 19-Jun-2017 Abdomen/Pelvis without Cont Result: Comments: See Note; NOTES: [facility] Imaging Services [address] [place] [address] Abdomen/Pelvis without Cont MR#: [id number] Acct: [id number] Name: SALMA DUENAS Rep #: [id number] : 1935 F 81 From: Vanessa Berrios MD PCP: Anya Steward DO Status: REG CLI Study: Abdomen/Pelvis without Cont Date of Exam: 06/19/17 Exam# [id number] Ordering Dr: Jordan Steward DO STUDY: CT [...] Berrios MD at 19:23 EST Tel Direct: [phone], Service support , CC: Anya Steward DO Improvement Leader: Signed 16-Jun-2017 Chest PA and Lateral Result: Comments: See Note; NOTES: [facility] Imaging Services [address] [place] [address] Chest PA and Lateral MR#: [id number] Acct: [id number] Name: ERWINANASTASIYA REEVESMARY Hawk Rep #: [id number] : 1935 F 81 From: Ranulfo Grant MD PCP: Anya Steward DO Status: REG CLI Study: Chest PA and Lateral Date of Exam: 06/16/17 Exam# [id number] Ordering Dr: Anya Steward DO STUDY: X [...] Service support , CC: Anya Steward DO Improvement Leader: Signed 15-May-2017 Abd Inc Decub and/or Erect Result: Comments: See Note; NOTES: [facility] Imaging Services [address] [facility] [place] [address] Abd Inc Decub and/or Erect MR#: [id number] Acct: [id number] Name: SALMA DUENAS Rep # : [id number] : 1935 F 81 From: iVshal Mendez MD PCP: Anya Steward DO Status: REG CLI Study: Abd Inc Decub and/or Erect Date of Exam: 05/15/17 Exam# [id number] Ordering Dr: Yolanda Zarco STUDY: X-RAY - ABDOMEN/PELVIS REASON FOR EXAM: [...] Vishal Mendez MD at 15:22 EDT Tel [phone], Service support , CC: DIGITAL RETOUCHERDeeC Yolanda Zarco; Anya Steward DO Improvement Leader: Signed 13-Mar-2017 Chest without Contrast Result: Comments: See Note; NOTES: [facility] Imaging Services [address] [place] [address] Chest without Contrast MR#: [id number] Acct: [id number] Name: SALMA DUENAS Rep #: [id number] : 1935 F 81 From: Vishal Mendez MD PCP: Anya Steward DO Status: REG CLI Study: Chest without Contrast Date of Exam: 03/13/17 Exam# [id number] Ordering Dr: Jarrell Kate MD UDY: CT CHEST WITHOUT CONTRAST REASON FOR EXAM: [...] Vishal Mendez MD at 15:36 EDT Tel [phone], Service support , CC: JARRELL KATE MD; Anya Steward DO Improvement Leader: Signed 21-Dec-2016 SCREENING MAMM (CAD), BILAT Result: Comments: See Note; NOTES: [facility] Imaging Services [address] [place] [address] Verdana 4d SCREENING MAMM (CAD), BILAT MR#: [id number] Acct: [id number] Name: DIANE DUENAS Rep #: [id number] : 1935 F 81 From: Vishal Mendez MD PCP: Anya Steward DO Status: [facility] Study: SCREENING MAMM (CAD), BILAT Date of Exam: 12/21/16 Exam# [id number] Ordering Dr: Anya Salguero DO MAMMOGRAPHY - [...] delay biopsy of a clinically suspicious abnormality. [id number] Electronically Signed: Vishal stack MD at 13:42 EDT Tel [phone], Service support , CC: Anya Steward DO Improvement Leader: Signed 08-Dec-2016 Spine Thoracic (Routine) Result: Comments: See Note; NOTES: [facility] Imaging Services [address] [place] [address] 4d Spine Thoracic (Routine) MR#: [id number] Acct: [id number] Name: ALLEN DUENAS Rep #: [id number] : 1935 F 81 From: Arthur Barnard MD PCP: Anya Steward DO Status: [facility] CLI Study: Spine Thoracic (Routine) Date of Exam: 12/08/16 Exam# [id number] Ordering Dr: Anya Steward DO STUDY: MRI [...] Service support , CC: Anya Steward DO Improvement Leader: Signed 23-Sep-2016 Chest PA and Lateral Result: Comments: See Note; NOTES: [facility] Imaging Services [address] [place] [address] [place] 4d Chest PA and Lateral MR#: [id number] Acct: [id number] Name: SALMA DUENAS Rep #: [id number] : 1935 F 80 From: Eezquiel Bradley MD PCP: Anya Steward DO Status: REG CLI Study: Chest PA and Lateral Date of Exam: 09/23/16 Exam# [id number] Ordering Dr: Anya Steward TUDY: X-RAY CHEST [...] at 3:40 EST Tel , Service support [phone], CC: Anya Steward DO Improvement Leader: Signed 05-Aug-2016 Hip 2-3 Views with Pelvis Result: Comments: See Note; NOTES: [facility] Imaging Services [address] [place] [address] [place] 4d Hip 2-3 Views with Pelvis MR#: [id number] Acct: [id number] Name: FABIO DUENAS Rep #: [id number] : 1935 F 80 From: Shamir Leigh DO PCP: Anya Steward DO Status: REG CLI Study: Hip 2-3 Views with Pelvis Date of Exam: 08/05/16 Exam# [id number] Ordering Dr: Ty Lion DO STUDY: X-RAY [...] Shamir Leigh DO at 15:17 EST Tel [phone], Service support [phone], CC: Anya Steward DO; Guicho Lion DO Improvement Leader: Signed 17-Jun-2016 History and Physical Exam Result: Comments: See Note; NOTES: [facility] Medical Records Department [address] [place] [address] History and Physical 06/17/16 1432 MR#: [id number] Acct: [id number] Name: SALMA DUENAS Rep #: [id number] : 1935 80 From: Jarod Morton DO PCP: Anya Steward DO Status: REG ER Y Location: ED Problem List (1) Right femoral fracture Status: Acute Qualifiers: Encounter type: initial encounter Femur location: F Fracture type: closed Open fracture type: O Fracture morphology: F Fracture alignment: displaced Salter-Black[place] Fracture Type: S Fracture healing: F (2) SANG (ac [place] kidney injury) Status: Acute (3) Coagulopathy Status: [...] right side. Patient had immediate pain. Melinda andersno presented to the emergency room and was [...] 78.1 H Lymph % (Auto) 13.1 L Holmes % (Auto) 6.4 Eos % (Auto) 1.6 [...] Urine Clarity Urine pH Ur S pecific [place] Urine Protein Urine Glucose (UA) Urine Ketones Urine Occult Blood Urine Nitrite Urine Bilirubin Urine Urobilinogen Ur Leukocyte Esterase Urine RBC Urine WBC Ur Squamous Epith Cells Urine Bacteria Urine Mucus Blood Type 06/17/16 06/17/16 06/17/16 12:15 13:15 13:50 WBC RBC Hgb Hct MCV MCH MCHC RDW RDW Differential Plt Count MPV Immature Gran % (Auto) Neut % (Auto) Lymph % (Auto) Holmes % (Auto) Eos % (Auto) Baso % [...] Sl. Cloudy Urine pH 6.0 Ur Specific [place] 1.015 Urine Protein 30 H Urine Glucose [...] pending her becoming therapeutic on her Coumadin. Patie nt will not require a 24-hour overlap for Coumadin and Lovenox as she has no new venous thromboembolic disease. 06/17/16 1442 <Electronically signed by Jarod Morton DO> Date _ Jarod Morton DO Cosigner Signature (if applicable): Date CC: Jarod Morton DO; Anya Steward DO Signed 17-Jun-2016 Hip 2-3 Views with Pelvis Result: Comments: See Note; NOTES: [facility] Imaging Services [address] [place] [address] Verdana 4d Hip 2-3 Views with Pelvis MR#: [id number] Acct: [id number] Name: ERWINFABIO REEVES LISA Hawk Rep #: [id number] : 1935 F 80 From: Vishal Mendez MD PCP: Anya Steward DO Status: [facility] ER Study: Hip 2-3 Views with Pelvis Date of Exam: 06/17/16 Exam# [id number] Ordering Dr: Vanessa Lucia MD STUDY: X-RAY [...] Mendez MD at 12:23 EST Tel [phone], Service support [phone], CC: Vanessa Lucia MD; Anya Steward DO Improvement Leader: Signed 17-Jun-2016 Brain/Head without Contrast Result: Comments: See Note; NOTES: [facility] Imaging Services [address] [place] [address] [place] 4d Brain/Head without Contrast MR#: [id number] Acct: [id number] Name: DIANE DUENAS Rep #: [id number] : 1935 F 80 From: Vishal Mendez MD PCP: Anya Steward DO Status: REG ER Study: Brain/Head without Contrast Date of Exam: 06/17/16 Exam# [id number] Ordering Dr: Vanessa Romeo MD STUDY: CT [...] Vishal Mendez MD at 11:31 EST Tel [phone], Service support [phone], CC: Vanessa Lucia MD; Anya Steward DO Improvement Leader: Signed 15-Mar-2016 Chest without Contrast Result: Comments: See Note; NOTES: [facility] Imaging Services [address] [place] [address] [place] 4d Chest without Contrast MR#: [id number] Acct: [id number] Name: SALMA DUENAS Rep #: [id number] : 1935 F 80 From: Darius Ayoub PCP: Anya Steward DO Status: REG CLI Study: Chest without Contrast Date of Exam: 03/15/16 Exam# [id number] Ordering Dr: ANYA SAVAGE STUDY: CT CHEST [...] MD at 6:39 EDT , Service support [phone], CC: KEVIN SAVAGE; Anya Steward DO Improvement Leader: Signed 09-Dec-2015 PT D/C of Non Returning Pt (1) Result: Comments: See Note; NOTES: [facility] Physical Therapy [facility] [place] [phone] Fax REHABILITATION SE RVICES DISCHARGE SUMMARY MR#: [id number] Acct: [id number] Name: SALMA DUENAS Rep #: [id number] : 1935 80 From: Jarod Michelle DPT, OCS, CSCS Referring : Anya Steward DO Status : REG RCR [...] Interventions Patient/Client Instruction: Educate patient on: Yina elmore, Plan of Care Comments: HEP For the [...] and Lateral Result: Comments: See Note; NOTES: [facility] Imaging Services [address] [place] [address] Ver[place] 4d Chest PA and Lateral MR#: [id number] Acct: [id number] Name: SALMA MCNAMARA Rep #: [id number] : 1935 F 79 From: Vishal Mendez MD PCP: Anya Steward DO Status: REG CLI Study: Chest PA and Lateral Date of Exam: 10/07/15 Exam# [id number] Ordering Dr : Anay Steward DO STUDY: X-RAY CHEST REASON FOR [...] Mendez MD at 15:21 EST Te l [phone], Service support [phone], 0091 RAD/Chest PA and Lateral IMPRESSION: Stable examination. No acute infiltrate is seen. Electronically Signed: Eren Mendez MD at 15:21 EST Tel [phone], Service support [phone], CC: Anya Steward DO Improvement Leader: Signed 07-Oct-2015 Spirometry (79125) Comments: lil restriction but struggled to do Result: 28-Sep-2015 Inital Evaluation (1) - PT Result: Comments: See Note; NOTES: [facility] [place], [place] [address] Fax REHABILITATION SE RVICES INITIAL EVALUATION MR#: [id number] Acct: [id number] Name: SALMA DUENAS Rep #: [id number] : 1935 79 From: Jarod Michelle DPT, OCS, CSCS Referring Dr.: Anya Steward DO Statu s: REG RCR Insurance: MEDICARE PART A B Eval Date: [facility] Patient's Visit Information SALMA DUENAS is [...] turning neck.. Not overly active, goes to [employer] and out to eat. Does own ho [...] Medicare only, by signing this I singh fy the plan of care. Physicians Signature Date 23-Sep-2015 Lumbar Spine 2 or 3 Views Result: Comments: See Note; NOTES: [facility] Imaging Services [address] [place] [address] [place] 4d Lumbar Spine 2 or 3 Views MR#: [id number] Acct: [id number] Name: SALMA BRYAN Rep #: [id number] : 1935 F 79 From: Vishal Mendez MD PCP: Anya Steward DO Status: REG CLI Study: Lumbar Spine 2 or 3 Views Date of Exam: 09/23/15 Exam# [id number] Brian riggs Dr: Gal Shields MD STUDY: X-RAY - [...] Mendez MD at 15:00 EST Te l [phone], Service support [phone], 0046 RAD/Lumbar Spine 2 or 3 Views IMPRESSION: Degenerative changes of the spine, as detailed above. 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 Electronically Signed: Vishal Mendez MD at 15:00 EST Tel [phone], Service support , CC: Gal Shields MD; Anya Steward DO Improvement Leader: Signed 18-Sep-2015 Cerv Spine 4 or 5 Views Result: Comments: See Note; NOTES: [facility] Services [address] [place] [address] Verdana 4d Cerv Spine 4 or 5 Views MR#: [id number] Acct: [id number] Name: SALMA SCANLON Rep #: [id number] : 1935 F 79 From: Brayden Gerardo MD PCP: Anya Steward DO Status: REG CLI Study: Cerv Spine 4 or 5 Views Date of Exam: 09/18/15 Exam# [id number] Ordering Dr: Anya Steward DO STUDY: X-RAY [...] FACR at 20:09 EST , Service support [phone], RAD/Cerv Spine 4 or 5 Views IMPRESSION: Osteope favio. 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 Electronically Signed: Brayden Gerardo MD, FACR at 20:09 EST , Service support [phone], CC: Anya Steward DO Improvement Leader: Signed 07-Sep-2015 Chest without Contrast Result: Comments: See Note; NOTES: [facility] Services [address] [place] [address] Verdana 4d Chest without Contrast MR#: [id number] Acct: [id number] Name: SALMA GONSALVES Rep #: [id number] : 1935 F 79 From: Ozzie Messer MD PCP: Anya Steward DO Status: REG CLI Study: Chest without Contrast Date of Exam: 09/07/15 Exam# [id number] Ordering Dr: Felix Parra MD STUDY: CT [...] at 9:57 EST Tel , Service support [phone], CC: Anya Steward DO; Felix Parra Improvement Leader: Signed 07-Sep-2015 Abdomen/Pelvis without Cont Result: Comments: See Note; NOTES: [facility] [address] [place] [address] Verdana 4d Abdomen/Pelvis without Cont MR#: [id number] Acct: [id number] Name: SALMA DUENAS Rep #: [id number] : 1935 F 79 From: Ozzie Messer MD PCP: Anya Steward DO Status: REG CLI Study: Abdomen/Pelvis without Cont Date of Exam: 09/07/15 Exam# [id number] Or dering Dr: Felix Parra MD STUDY: [...] at 9:54 EST Tel , Service support [phone], CC: Anya Steward DO; Felix Parra Improvement Leader: Signed 29-Jun-2015 EKG (81960) Comments: nsr no acute chg Result: [MEASUREMENTS ANALYSIS] Date of Test: 06/29/2015 14:05:21; Heart Rate: 66; RI Interval: 180; QRS: 98; QT Interval: 406; Corrected QT Interval (QTc): 416; P Wave [place]: 37; QRS Wave [place]: -7; T Wave [place]: 12; Blood Pressure: 120/78 [ECG DIAGNOSTIC STATEMENTS] Date of Test: 06/29/2015 14:05:21; Summary: Sinus Rhythm WITHIN NORMAL LIMITS 12-Jun-2015 Emergency Department Summary Result: Comments: See Note; NOTES: [facility] Medical Records Department [address] [place] [address] Emergency Department Summary MR#: [id number] Acct: [id number] Name: SALMA DUENAS Rep #: [id number] : 1935 79 From: Octavio Kate MD PCP: Anya Steward DO Status: [facility] DATE OF SERVICE: 06/09/2015 CHIEF COMPLAINT: Right arm fistula, possibly c lotted or obstructed. HISTORY OF PRESENT ILLNESS: A 79-year-old female with history of known renal insufficiency never need dialysis 2 years ago with a concern that she ____ right arm fistula placed at the [facility]. It has been doing well. Today, [...] edema with strong radial pulse. Norm al lining feller blindstitch strength, touch sensation in the right arm, hand. EMERGENCY DEPARTMENT COURSE: I did do screening labs on the patient. She is on Coumadin. Her INR is 1.6 and subtherapeutic. Also her chemist physical ry panel was unremarkable other than a [...] C: Anya Canela T: LETICIA J OB: [id number] 06/12/15 0846 <Electronically signed by Octavio Kate MD> Date Octavio Kate MD Cosigner Signature (If Indicated): Date CC: Anya Steward DO Date Dictated: 06/09/151352 Date Transcribed: 06/09/151352 Improvement Leader: Signed 09-Jun-2015 Discharge Instruction Result: Comments: See Note; NOTES: [facility] Medical Records Department [address] [place] [address] Discharge Instruction 06/09/151352 MR#: [id number] Acct: [id number] Name: SALMA DUENAS Rep #: [id number] : 1935 79 From: Octavio Kate MD [...] problems, contact your doctor. Call [facility] ([phone]) or report to the closest Emergency Room. Call 911 if necessary. 06/09/15 1526 <Electronically signed by Octavio Kate MD> Date Octavio sarkar MD Cosigner Signature (If Indicated): Date CC: Anyacolin Steward 21-Apr-2015 PT Discharge Summary Result: Comments: See Note; NOTES: [facility] [address] [place] [address]. [address] [place] [address] Fax REHABILITATION SERVICES DISCHARGE SUMMARY MR#: [id number] Acct: [id number] Name: SALMA DUENAS Rep #: [id number] : 1935 79 From: Brandi Mares Referring Dr.: Gal Shields MD Status: DIS RCR Eval Date: Sandra gamboa Date: 04/20/15 DATE OF SERVICE: DATE OF SERVICE: April 20, 2015 This patient was referred to physical therapy by Dr. Shields with a diagnosis of back pain. She has been seen in [facility] times a total of [...] goals have been met. Oswestry equals 16%, Q2548-KG, L4822-JN. I am discharging her to independent home exercise p martha at this time and she is agreeable to discharge. Brandi Mares, PT T: NTS JOB: [id number] <Electronically signed by Brandi Mares > 04/21/15 1419 CC: Anya Steward DO Signed 20-Mar-2015 Inital Evaluation - PT Result: Comments: See Note; NOTES: [facility] [address] [place] [address] Fax REHABILITATION SERVICES INITIAL EVALUATION MR#: [id number] Acct: [id number] Name: ERWINJORDENELIASSALMA A Rep #: [id number] : 1935 79 From: Brandi Mares Referring Dr.: Gal Shields MD Status: REG R Insurance: [employer] PART A B Evsd Date: [facility] DATE OF SERVICE: 03/19/2015 SUBJECTIVE: This [...] TREATMENT: The patient was seen today for instructio n in proper posture control and body [...] when she goes out. Oswestry equals 26%, F8118-XO, Z3819-IJ. PLAN: We plan to see this patient ____ times a week x10 visits for lumbar soft tissue mobilization as needed, dynamic lumbar stabilization exercise instruction, posture correction, instr uction in proper body mechanics for ADLs and bilateral lower extremity strengthening. She was agreeable with this plan of care. Brandi Mares, PT T: NTS JOB: [id number] <Electronically s igned by Brandi Mares > 03/20/15 0940 CC: Signed For Medicare only, by signing this I certify the plan of care. Physicians Signature Date 16-Jan-2015 Chest without Contrast Result: Comments: See Note; NOTES: [facility] Services [address] [place] [address] CAT Scan Report MR#: [id number] Acct: [id number] Name: SALMA DUENAS Rep #: : 1935 F 79 From: Ozzie Messer MD PCP: Anya Steward DO Status: REG CLI Study: Chest without Contrast Date of Exam: 01/16/15 Exam# [id number] Ordering Dr: Anya Steward DO STUDY: CT [...] at 16:01 EDT Tel , Service support [phone], CC: Anya Steward DO Improvement Leader: Signed 15-Jan-2015 Bone Scan Whole Body Result: Comments: See Note; NOTES: [facility] Services [address] [place] [address] Nuclear Medicine Report MR#: [id number] Acct: [id number] Name: SALMA DUENAS #: [id number] : 1935 F 79 From: Iván Hearn DO PCP: Anya Steward DO Status: REG CLI Study: Bone Scan Whole Body Date of Exam: 01/15/15 Exam# [id number] Ordering Dr: Anya Steward DO CLINICAL: 79-year-old [...] Iván Hearn DO at 16:30 EDT Tel [phone], Service support [phone], Fax CC: Anya Steward DO Improvement Leader: Signed 14-Jan-2015 Chest PA and Lateral Result: Comments: See Note; NOTES: [facility] Services [address] [place] [address] Radiology Report MR#: [id number] Acct: [id number] Name: SALMA DUENAS Rep #: [id number] : 1935 F 79 From: Sushil Benedict DO PCP: Anya Steward DO Status: REG CLI Study: Chest PA and Lateral Date of Exam: 01/14/15 Exam# [id number] Ordering Dr: Anya Steward DO STUDY: X-RAY [...] 2 3:58 EDT Tel , Service support [phone], RAD/Chest PA and Lateral IMPRESSION: Chronic appearing lung changes. Focal density in the right uppe r lobe adjacent to surgical staple line may represent a parenchymal scar. The previously identified right-sided rib fractures are not clearly visualized on this examination. Diffuse osteopenia, wi th findings of previous vertebroplasty. Electronically Signed: Sushil Benedict DO at 23:58 EDT Tel , Service support [phone], CC: Anya Steward DO Improvement Leader: Signed 15-Dec-2014 Ribs Uni Min 3V w/PA Chest Result: Comments: See Note; NOTES: [facility] Services [address] [place] [address] Radiology Report MR#: [id number] Acct: [id number] Name: SALMA DUENAS Rep #: [id number] : 1935 F 79 From: Adal Kelly MD PCP: Anya Steward DO Status: REG CLI Study: Ribs Uni Min 3V w/PA Chest Date of Exam: 12/15/14 Exam# [id number] Ordering Dr: Anya Steward STUDY: X-RAY - [...] Borderline cardiac enlargement. 4. Left chest wall Kqqimh-v-Vdpd in place. 5. Prior cement augmentation of the T8 and T1 1 vertebra. Electronically Signed: Louis Kelly MD at 20:09 EDT , Service support [phone], RAD/Ribs Uni Min 3V w/PA C hest IMPRESSION: RIBS: Fractures of the anterolateral right fifth and sixth ribs. CHEST: 1. Prior right upper lobectomy. Surgical clips also seen in the right axilla/upper arm. 2. Chronic interst itial changes in the lungs. 3. Borderline cardiac enlargement. 4. Left chest wall Nvbjkc-r-Lpvs in place. 5. Prior cement augmentation of the T8 and T11 vertebra. Electronically Signed: Louis meyers MD at 20:09 EDT , Service support [phone], CC: Anya Steward DO Improvement Leader: Signed 02-Dec-2014 Dexa Bone Density Study (HP) Result: Comments: See Note; NOTES: [facility] [address] [facility] [place] [address] Bone Density Report MR#: [id number] Acct: [id number] Name: SALMA DUENAS Rep # : [id number] : 1935 F 79 From: Vishal Mendez MD PCP: Anya Steward DO Status: REG CLI Study: Dexa Bone Density Study (HP) Date of Exam: 12/02/14 Exam# [id number] Ordering Dr: Anya Steward DO STUDY: DUAL [...] Vishal Mendez MD at 9:28 EDT Tel [phone], Service sup port [phone], CC: Anya Stweard DO Improvement Leader: Signed 24-Oct-2014 Hip min 2 Views Result: Comments: See Note; NOTES: [facility] [address] [place] [address] Radiology Report MR#: [id number] Acct: [id number] Name: SALMA DUENAS Rep #: [id number] : 1935 F 78 From: Dave Castanon MD PCP: Anya Steward DO Status: PRE CLI Study: Hip min 2 Views Date of Exam: 10/24/14 Exam# [id number] Ordering Dr: Felix Parra MD STUDY: X- [...] MD at 19:29 EDT , Service support [phone], CC: Anya Steward DO; Felix Parra Improvement Leader: Signed 20-Oct-2014 Inital Evaluation - PT Result: Comments: See Note; NOTES: [facility] [address] [place] [address] Fax REHABILITATION SERVICES INITIAL EVALUATION MR#: [id number] Acct: [id number] Name: SALMA DUENAS Rep #: [id number] : 1935 78 From: Mary Lou Hinkle Referring Dr.: Anya Steward DO Status: REG RCR Insurance : MEDICARE PART A B Eval Date: [employer] DATE OF SERVICE: 10/16/2014 Salma Duenas is [...] Mary Lou Hinkle DPT T: LETICIA JOB: [id number] &#60 ;Electronically signed by Mary Lou Hinkle > 10/20/14 1514 CC: Signed For Medicare only, by signing this I certify the plan of care. ____ Physicians Signature Date 26-May-2014 Lumbar Spine 2 or 3 Views Result: Comments: See Note; NOTES: [facility] [address] [place] [address] Radiology Report MR#: [id number] Acct: [id number] Name: SALMA DUENAS Rep #: [id number] : 1935 F 78 From: Shamir Leigh DO PCP: Anya Steward DO Status: REG CLI Study: Lumbar Spine 2 or 3 Views Date of Exam: 05/26/14 Exam# [id number] Ordering Dr: Gal Shields MD [facility]: X-RAY - LUMBAR SPINE REASON FOR EXAM: [...] at T8 and T11. Electronically Signed: Shamir Leigh DO at 16:47 EDT Tel [phone], Service support , CC: Gal Shields MD; Anya Steward DO Improvement Leader: Signed 26-May-2014 Thoracic Spine 3 Views Result: Comments: See Note; NOTES: [facility] [address] [place] [address] Radiology Report MR#: [id number] Acct: [id number] Name: ERWINSALMA REEVES Rep #: : 1935 F 78 From: Federico Galeas DO PCP: Anya Steward DO Status: REG CLI Study: Thoracic Spine 3 Views Date of Exam: 05/26/14 Exam# [id number] Ordering Dr: Gal Shields MD STUDY: X-RAY [...] Federico Galeas DO at 19:00 EDT Tel [phone], Service support [phone], CC: Gal Shields MD; Anya Steward DO Improvement Leader: Signed 26-May-2014 Thoracic Spine 3 Views Result: Comments: See Note; NOTES: [facility] [address] [address] Radiology Report MR#: [id number] Acct: [id number] Name: ERWINJORDENELIASSALMA A Rep #: : 1935 F 78 From: Federico Galeas DO PCP: Anya Steward DO Status: REG CLI Study: Thoracic Spine 3 Views Date of Exam: 05/26/14 Exam# [id number] Ordering Dr: Gal Shields MD ADDENDU M by Federico Galeas DO on 05/26/14 at 1902 ADDENDUM ADDENDUM: When compared to a study from April 29, 2014, there is increasing compression of T7, and especially T6 segment. 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 Vertebroplasty of T8 and T11. Electronically Signed: Federico DO Adal at 19:00 EDT Tel [phone], Service support [phone], CC: Gal Shields MD; Anya Steward DO Improvement Leader: Signed 19-May-2014 Upper GI w/BA Swallow Result: Comments: See Note; NOTES: [facility] [address] [place] [address] Radiology Report MR#: [id number] Acct: [id number] Name: SALMA DUENAS Rep #: [id number] : 1935 F 78 From: Vishal Mendez MD PCP: Anya Steward DO Status: REG CLI Study: Upper GI w/BA Swallow Date of Exam: 05/19/14 Exam# [id number] Ordering Dr: Felix Parra MD STUDY: X-RAY [...] Vishal Mendez MD at 14:20 EDT Tel [phone], Service support [phone], STUDY: AIR-CONTRAST UP PER GI SERIES. REASON [...] Vishal Mendez MD at 14:21 EDT Tel [phone], Service support [phone], CC: Anya Steward DO; Felix Parra Improvement Leader: Signed 29-Apr-2014 Lumbar Spine 2 or 3 Views Result: Comments: See Note; NOTES: [facility] Imaging Services [facility] [place] [address] Radiology Report MR#: [id number] Acct: [id number] Name: SALMA DUENAS Rep #: : 1935 F 78 From: Marshall Chandler MD PCP: Anya Steward DO Status: REG CLI Study: Lumbar Spine 2 or 3 Views Date of Exam: 04/29/14 Exam# [id number] Ordering Dr: Gal Shields MD STUDY: X-RAY [...] MD at 23:47 EDT , Service support [phone], CC: Gal Shields MD; Anya Steward DO Improvement Leader: Signed 29-Apr-2014 Thoracic Spine 3 Views Result: Comments: See Note; NOTES: [facility] Services [address] [place] [address] Radiology Report MR#: [id number] Acct: [id number] Name: SALMA DUENAS Rep #: [id number] : 1935 F 78 From: Marshall Chandler MD PCP: Anya Steward DO Status: [facility] CLI Study: Thoracic Spine 3 Views Date of Exam: 04/29/14 Exam# [id number] Ordering Dr: Gal Shields MD STUDY: X-RAY [...] MD at 0:37 EDT , Service support [phone], CC: Gal Shields MD; Anya Steward DO Improvement Leader: Signed 28-Apr-2014 PET/CT Tumor Base -Thigh Subs Result: Comments: See Note; NOTES: [facility] Services [address] [place] [address] PET Scan Report MR#: [id number] Acct: [id number] Name: SALMA DUENAS Rep #: [id number] : 1935 F 78 From: Iván Hearn DO PCP: Anya Steward DO Status: REG CLI Study: PET/CT Tumor Base -Thigh Subs Date of Exam: 04/28/14 Exam# [id number] Ordering Dr: Felix Parra MD INDICATIONS: A [...] aneurysm formation. Coronary arterial calcification is observed. Dnwh-G-Mntw-MediPort placement is noted. Scattered mediastinal and several [...] Iván Hearn DO at 22:10 EDT Tel [phone], Service support [phone], CC: Anya Steward DO; Felix Parra Improvement Leader: Signed 10-Feb-2014 Operative Report Result: Comments: See Note; NOTES: [facility] Medical Records Department [address] [place] [address] Operative Report 02/10/14 0829 MR#: [id number] Acct: [id number] Name: SALMA DENNISON Rep #: [id number] : 1935 78 From: Justine Caldwell MD [...] Anya Steward DO; Justine Caldwell MD; Felix Dorie Signed Immunization Name Dates Details Influenza (3 years and up) on: 13-Apr-2009 Comments: do[place] 0.5 [place] [address] 4p exp 12-07 Pneumococcal (2 years and up) on: 13-Apr-2009 [...] Active 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 Comments: 06/01/11, 10/28/11 Status: Active Non Smoker/No Tobacco Use Status: Inactive Smoking Status Name Dates Details Never smoker Vital Signs Date Test Result Details 71-Hug-629668:53 Temperature 97.7 f Comments: Method: Temporal Pulse [...] :44 Comments: hearing [facility] doc [place] and had a glaucoma test done Pulse [...] 0.00 cm Results Date Description Value Details :12 Rapid Strep Test, Office (61000) Rapid Strep Test, Office Negative (Normal) :03 CBC W/Diff, Automated Comments: [facility] [address] [place], [place], [id number] Absolute Lymph 1.28 {X10_3/ul} (Normal) Range: 0.83-4.51 [...] 4.2-5.4 WBC 7.4 K/mm3 (Normal) Range: 4.4-11.0 91-Ytg-763442:03 Ferritin Comments: Is Patient Taking Vitamins or Folic Acid Supplements? [facility] [address] [place], [place], [address] FERRITIN 119 ng/mL (Normal) Range: 8-252 68-Flv-916640:03 Folates, (Folic Acid) Comments: Is Patient Taking Vitamins or Folic Acid Supplements? [facility] [address] [place], [address] FOLATES > 100.00 ng/mL (Abnormal) Range: 3.1-55.4 35-Rki-282721:03 Iron+Iron Binding Capacity Comments: Is Patient Taking Vitamins or Folic Acid Supplements? [facility] [address] [place], [place], [address] IRON SATURATION 26.1 % (Normal) Range: 15.0-55.0 IRON 70 ug/dL (Normal) Range: 50-170 TIBC 268 ug/dL (Normal) Range: 250-450 54-Mjx-646221:03 Protein+Creatinine Ratio,Urine Comments: [facility] [address] [place], [id number] PROT:CRE RATIO 488 {mg/g_CRE} (Abnormal) Range: 0-200 PROTEIN,UR.RAN. 84.9 mg/dL (Abnormal) UR CREAT 174.00 mg/dL (Normal) 77-Tyy-332096:03 PTHIN 25.1 pg/mL (Normal) Comments: [facility] [address], [address] Range: 18.4-80.1 74-Ies-496921:03 Renal Profile Comments: Is Patient Taking Vitamins or Folic Acid Supplements? [facility] [address] [place], [place], [address] CO2 17.0 mmol/L (Abnormal) Range: 21.0-32.0 CL [...] Comments: Please note revised GLUCOSE reference range /02/2018. 77-Mcz-706772:03 Vitamin B12 673 pg/mL (Normal) Comments: [facility] [address] [place], [address] Range: 211-911 70-Ujm-027614:03 Vitamin D,25 Hydroxy Comments: [facility] [address] [place], [address] Vitamin D 25-OH 30.2 ng/mL (Normal) Range: 29.95-100.01 Comments: Vitamin D 25(OH) Status Range Deficiency <20 ng/mL (50nmol/L) Insuffciency 20 - 30 ng/mL (50 - 75 nmol/L) Sufficiency 30 - 100 ng/mL (75 - 250 nmol/L) Toxicity >100 ng/mL (>250 nmol/L) 00-Ljb-639040:24 URINE ANURAG CULTURE-TYSON COL Comments: PATIENT NOT FASTINGPERFORMED BY: [facility] [address] [facility] [id number] Information: SRC:UC COUNT (04899) Antimicrobial MIHEAD (Normal) Comments: S = Susceptible; [...] and Proteusmirabilis. Urine Final report Culture,Comprehensive (Abnormal) 99-Gxi-085587:03 Urinalysis, Office (27195) UA - LEUKOCYTE ESTERASE Large (Normal) UA - NITRITE Negative (Normal) URINE UROBILINGN TYSON TIMED Normal mg/dL (Normal) UA - PROTEIN 100 mg/dL (Normal) UA - PH 6 (Abnormal) UA - SPECIFIC GRAVITY 1.030 (Abnormal) UA - KETONES Negative mg/dL (Normal) UA - BILIRUBIN Negative (Normal) UA - GLUCOSE Negative (Normal) 0-Joh-332946:30 URINE ANURAG CULTURE-IDENTIFICATN Comments: PATIENT NOT FASTINGPERFORMED BY: [facility] [address]7475 [facility] [id number] Information: SRC:EVERETT (15216) Antimicrobial MIHEAD (Normal) Comments: S = Susceptible; [...] and Proteusmirabilis. Urine Final report Culture,Comprehensive (Abnormal) 6-Zzv-130064:22 Urinalysis, Office (97869) UA - LEUKOCYTE ESTERASE Large (Normal) UA - NITRITE Positive (Normal) URINE UROBILINGN TYSON TIMED Normal mg/dL (Normal) UA - PROTEIN 300 mg/dL (Normal) UA - PH 6 (Abnormal) UA - BLOOD Hemolyzed Large (Normal) UA - SPECIFIC GRAVITY 1.030 (Abnormal) UA - KETONES Negative mg/dL (Normal) UA - BILIRUBIN Negative (Normal) UA - GLUCOSE Negative (Normal) 0-Zdj-341189:06 CBC W/Diff, Automated Comments: Reason for Laboratory Test [facility] [address] [place], [place], [address] Absolute Lymph 1.45 {X10_3/ul} (Normal) Range: 0.83-4.51 [...] 4.2-5.4 WBC 6.8 K/mm3 (Normal) Range: 4.4-11.0 4-Btx-227234:06 Comprehensive Metabolic Profil Comments: Reason for Laboratory Test OVSerial Specimen #1, #2 or #3? 1[facility] [address] [place] [place], [id number] GAP 8 (Normal) Range: 5-15 CO2 22.0 [...] Comments: Please note revised GLUCOSE reference range kxlqvjvav40/02/2018. 3-Bll-346943:06 LDH 141 U/L (Normal) Comments: Reason for Laboratory Test OVSerial Specimen #1, #2 or #3? [facility] [address] [place], [id number] Range: 84-246 35-Erq-946030:23 Metabolic Panel, Basic Comments: assure GFR is in this [panel if not do separately; PATIENT NOT FASTINGPERFORMED BY: [facility] [id number] (38254) Calcium 9.9 mg/dL (Normal) Range: 8.7-10.3 Carbon [...] 8-27 Glucose 80 mg/dL (Normal) Range: 65-99 32-Ihu-686399:48 Metabolic Panel, Comprehensive Comments: PATIENT NOT FASTINGPERFORMED BY: [facility] [id number] (35436) ALT (SGPT) 8 [iU]/L (Normal) Range: 0-32 [...] 0 days - 30 days 16 - 16 - 31 days - 1 year 15 - 25 15 - 25 2 years - 5 years 17 - 17 - 26 6 y ears - [...] 8-27 Glucose 89 mg/dL (Normal) Range: 65-99 60-Ucl-619919:48 C-REACTIVE PROTEIN (82517) Comments: PATIENT NOT FASTINGPERFORMED BY: [facility] [facility] [id number] C-Reactive Protein, Quant 5.1 mg/L (Abnormal) Range: 0.0-4.9 47-Chh-429190:48 Sed Rate Erythrocyte (10829) Comments: PATIENT NOT FASTINGPERFORMED BY: [facility] [id number] Sedimentation Rate-Westergren 4 mm/h (Normal) Range: 0-40 75-Arf-319650:48 CBC W/AUTO DIFF WBC (68566) Comments: PATIENT NOT FASTINGPERFORMED BY: [facility] [facility] [id number] Immature Grans (Abs) 0.0 {x10E3/uL} (Normal) Range: [...] 3.77-5.28 WBC 10.3 {x10E3/uL} (Normal) Range: 3.4-10.8 70-Msf-738052:59 CBC-Complete Blood Cnt No Diff Comments: [facility] [address] [place], [place], [phone] MPV 10.2 fL (Normal) Range: 6.2-12.0 PLT [...] 4.2-5.4 WBC 6.2 K/mm3 (Normal) Range: 4.4-11.0 97-Wdj-220309:59 Magnesium Comments: [facility] [address] [place], [address] MG 2.1 mg/dL (Normal) Range: 1.6-2.6 94-Yyd-134228:59 Microalb:Creat Ratio,Random UR Comments: [facility] [address] [place], [id number] MALB:CREAT 27.0 {mg/g_CRE} (Normal) MICROALBUMIN,UR 44.5 mg/L (Normal) UR CREAT 165.00 mg/dL (Normal) 09-Mme-763064:59 PTHIN 32.8 pg/mL (Normal) Comments: [facility] [address] [place], [address] Range: 18.4-80.1 93-Jym-504325:59 Renal Profile Comments: [place] [address] [address] [place], [address] CO2 21.0 mmol/L (Normal) Range: 21.0-32.0 CL [...] Comments: Please note revised GLUCOSE reference range ktzxmlwvo81/02/2018. 61-Fse-988488:59 Vitamin D,25 Hydroxy Comments: [facility] [address] [place], [address] Vitamin D 25-OH 35.5 ng/mL (Normal) Range: 29.95-100.01 Comments: Vitamin D 25(OH) Status Range Deficiency <20 ng/mL (50nmol/L) Insuffciency 20 - 30 ng/mL (50 - 75 nmol/L) Sufficiency 30 - 100 ng/mL (75 - 250 nmol/L) Toxicity >100 ng/mL (>250 nmol/L) 7-Rxi-156428:33 CBC-Complete Blood Cnt No Diff Comments: [facility] [address] [place], [address] MPV 10.1 fL (Normal) Range: 6.2-12.0 PLT [...] 4.2-5.4 WBC 6.4 K/mm3 (Normal) Range: 4.4-11.0 1-Sqg-402901:33 Magnesium Comments: [facility] [address] [place], [id number] MG 1.8 mg/dL (Normal) Range: 1.8-2.4 6-Xoj-431717:33 Microalb:Creat Ratio,Random UR Comments: [facility] [address] [place], [address] MALB:CREAT 24.8 {mg/g_CRE} (Normal) MICROALBUMIN,UR 41.4 mg/L (Normal) UR CREAT 167.00 mg/dL (Normal) 5-Jpr-349471:33 PTHIN 8.3 pg/mL (Abnormal) Comments: [facility] [address] [place], [address] Range: 18.4-80.1 Comments: Please Note: PTH INTACT METHOD AND REFERENCE RANGE CHANGEEffective 07/19/2017. 8-Oln-290009:33 Renal Profile Comments: [facility] [address] [place], [id number] CO2 25.0 mmol/L (Normal) Range: 21.0-32.0 CL [...] 7-18 GLU 89 mg/dL (Normal) Range: 70-110 8-Jhg-685195:33 Vitamin D,25 Hydroxy Comments: [facility] [address] [place], [address] Vitamin D 25-OH 50.6 ng/mL (Normal) Comments: Vitamin D 25(OH) Status Range Deficiency <20 ng/mL (50nmol/L) Insuffciency 20 - 30 ng/mL (50 - 75 nmol/L) Sufficiency 30 - 100 ng/mL (75 - 250 nmol/L) Toxicity >100 ng/mL (>250 nmol/L) 5-Xpj-111487:30 CBC W/Diff, Automated Comments: [facility] [address], [address] ; Ungur Absolute Lymph 1.75 {X10_3/ul} (Normal) [...] 4.2-5.4 WBC 5.6 K/mm3 (Normal) Range: 4.4-11.0 1-Apq-554768:30 Prothrombin Time w/INR Comments: [facility] [address] [place], [place], [address] INR 1.3 (Normal) PROTIME 15.2 s (Abnormal) Range: 11.7-14.9 37-Hlt-296171:49 CBC W/Diff, Automated Comments: [facility] [address], [address] Absolute Lymph 1.42 {X10_3/ul} (Normal) Range: 0.83-4.51 [...] 4.2-5.4 WBC 4.9 K/mm3 (Normal) Range: 4.4-11.0 35-Zfi-722678:43 Prothrombin Time w/INR Comments: Reason for Laboratory Test [facility] Nvacxaresb7254 [facility] [place], [address] INR 1.1 (Normal) PROTIME 13.6 s (Normal) Range: 11.7-14.9 34-Afh-828211:06 MAGNESIUM (39360) Comments: PATIENT NOT FASTINGPERFORMED BY: LabCoHudson County Meadowview HospitalAinldw3886 [facility] [id number] Magnesium, Serum 1.8 mg/dL (Normal) Range: 1.6-2.3 84-Jhy-831951:06 METABOLIC PANEL, COMPREHENSIVE Comments: PATIENT NOT FASTINGPERFORMED BY: [facility]icsAsc[facility] Hospital6370 [facility] [id number] (39611) ALT (SGPT) 11 [iU]/L (Normal) Range: 0-32 [...] Glucose, Serum 109 mg/dL (Abnormal) Range: 65-99 34-Npg-013780:53 Metabolic Panel, Basic Comments: PATIENT NOT FASTINGPERFORMED BY: [facility]Asc[facility] Hospital6370 [facility] [id number] ([id number]) Calcium, Serum 8.7 mg/dL (Normal) Range: 8.7-10.3 [...] Glucose, Serum 80 mg/dL (Normal) Range: 65-99 21-Rgf-700626:32 Basic Metabolic Profile (BMP) Comments: Order Date: 07/11/17Order Info: [id number] - [facility] [address]hsvxgjodx[address] [place], [place], [address] GAP 9 (Normal) Range: 5-15 CO2 26.0 [...] 7-18 GLU 78 mg/dL (Normal) Range: 70-110 37-Zbd-456514:32 Prothrombin Time w/INR Comments: Order Date: 07/11/17Order Info: [id number] - [facility] [address]rfwttxpnf5[address] [place], [address] INR 1.3 (Normal) PROTIME 15.4 s (Abnormal) Range: 11.7-14.9 :52 CBC W/Diff, Automated Comments: Reason for Laboratory Test .[facility] [address] [place], [address] Absolute Lymph 0.61 {X10_3/ul} (Abnormal) [...] 4.2-5.4 WBC 10.7 K/mm3 (Normal) Range: 4.4-11.0 :52 Comprehensive Metabolic Profil Comments: Reason for Laboratory Test .Serial Specimen #1, #2 or #3? [facility] [address]qgw[address] [place], [place], [address] GAP 12 (Normal) Range: 5-15 CO2 24.0 [...] 7-18 GLU 69 mg/dL (Abnormal) Range: 70-110 9-Peb-546303:52 LDH 214 U/L (Normal) Comments: Reason for Laboratory Test .Serial Specimen #1, #2 or #3? 1[facility] [address] [place], [place], [address] Range: 84-246 4-Rrd-697750:13 Prothrombin Time w/INR Comments: Reason for Laboratory Test [facility] [address]wtkw[address] [place], [place], [address] INR 1.9 (Normal) PROTIME 21.1 s (Abnormal) Range: 11.7-14.9 03-Vcc-902633:00 Basic Metabolic Profile (BMP) Comments: [facility] [address] [place], [place], [address] GAP 10 (Normal) Range: 5-15 CO2 20.0 [...] 7-18 GLU 80 mg/dL (Normal) Range: 70-110 11-Kfl-481068:00 CBC W/Diff, Automated Comments: [facility] [address] [place], [place], [address] Absolute Lymph 0.82 {X10_3/ul} (Abnormal) Range: 0.83-4.51 [...] 4.2-5.4 WBC 16.6 K/mm3 (Abnormal) Range: 4.4-11.0 02-Dyv-843169:00 Prothrombin Time w/INR Comments: [facility] [address] [place], [place], [address] INR 2.3 (Normal) PROTIME 24.0 s (Abnormal) Range: 11.7-14.9 53-Tqq-438201:45 Basic Metabolic Profile (BMP) Comments: 'TROP' Serial specimen #1, #2, #3, or #4: 1[facility] [address]jo[address] [place], [place], [address] GAP 13 (Normal) Range: 5-15 CO2 18.0 [...] 7-18 GLU 92 mg/dL (Normal) Range: 70-110 :45 CBC W/Diff, Automated Comments: [facility] [address] [place], [place], [address] SMEAR COMMENT SCANNED (Normal) Absolute Lymph 1.14 [...] Serial specimen #1, #2, #3, or #4: 1[facility] U[address]imers[address], [address] LIPASE 189 U/L (Normal) Range: 73-393 35-Kyy-855551:45 Liver Profile Comments: 'TROP' Serial specimen #1, #2, #3, or #4: [address] [place] [address] [place], [address] D BILI 0.13 mg/dL (Normal) [...] T PROT 6.8 g/dL (Normal) Range: 6.4-8.2 73-Bph-674279:45 Troponin-I Comments: 'TROP' Serial specimen #1, #2, #3, or #4: [address] [place] [address] [place], [place], [address] TROPONIN-I < 0.02 ng/mL Comments: TROPONIN-I EXPECTED VALUES <0.05 NEGATIVE 0.06 - 0.59 AT RISK OF PR > OR = 0.60 SUGGEST PR (Normal) LDH 156 [iU]/L (Normal) Comments: PATIENT NOT FASTINGPERFORMED BY: [facility]Corp Lourvv4663 PaizCanpagesUNC Health [id number] Information: HARD DRAW 4:49 Range: 119-226 Written Authorization WAR (Normal) Comments: PATIENT NOT FASTINGPERFORMED BY: [facility] Ehsvtf9885 [facility] [id number] 4:49 Comments: Written Authorization Received.Authorization received from Rambo STEWARD [id number] by Supriya Cutler 33-Kqp-515340:49 FIBRIN DEGRAD D-DIM TYSON Comments: PATIENT NOT FASTINGPERFORMED BY: StayTuned Lrrdpl8442 PaizCanpagesUNC Health [id number] ([id number]) D-Dimer 0.75 {mg/L_FEU} (Abnormal) Range: 0.00-0.49 Comments: According to the assay licensing representative's published package insert, anormal (<0.50 mg/L FEU) D-dimer result in conjunction with a non-highclinical probability assessment, excludes deep vein thrombosis (D VT)and pulmonary embolism (PE) with high sensitivity. .D-dimer values increase with age and this can make VTE exclusion ofan older pop ulation difficult. To address this, the [employer], based on best available evidence [...] 0.80 mg/L FEU. :49 CREATINE KINASE TOTAL (11208) Comments: PATIENT NOT FASTINGPERFORMED BY: [employer] Ntvbej4176 [facility] [id number] Creatine Kinase,Total,Serum 75 U/L (Normal) Range: 24-173 29-Tqi-153962:49 Troponin I (50332) Comments: PATIENT NOT FASTINGPERFORMED BY: [employer] Bkjlbu0347 [facility] HospitalVISUAL NACERTUNC Health [id number] Troponin I <0.01 ng/mL (Normal) Range: 0.00-0.04 :49 CALCIFIDIOL (91595) VIT D 25 Comments: PATIENT NOT FASTINGPERFORMED BY: [employer] Eixwby9906 [facility] [id number] Vitamin D, 25-Hydroxy 44.5 ng/mL (Normal) Range: 30.0-100.0 Comments: Vitamin D deficiency has been defined by the [place] of[employer]icine and an Endocrine Society practice guideline as alevel of serum 25-OH vitamin D less than 20 ng/mL (1,2).The Endocrine Society went on to further define vitamin Dinsufficiency as a level between 21 and 29 ng/mL (2).1. IOM ([place] of [employer]). 2010. Dietary reference intakes for calcium and D. [place]: The National Academies Press.2. Lluvia MF, Wade WING, Tanner VENEGAS, et al. Evaluation, treatment, and prevention of vitamin D deficiency: an Endocrine Society clinical practice guideline. JCEM. 2010; 96(7):1911-30. :49 Folate (18123) Comments: PATIENT NOT FASTINGPERFORMED BY: CB [facility] Yxiztc5136 Paiz RoadDublin [place] [id number] Folate (Folic Acid), Serum >20.0 ng/mL (Normal) Comments: A serum folate concentration of less than 3.1 ng/mL isconsidered to represent clinical deficiency. 21-Kzg-438355:49 VITAMIN B-12 (CYANOCOBALAMIN) Comments: PATIENT NOT FASTINGPERFORMED BY: CB [facility] Zohmbl4040 Paiz RoadDublin [place] [id number] (53837) Vitamin B12 1257 pg/mL (Abnormal) Range: 211-946 :49 TSH (42850) Comments: PATIENT NOT FASTINGPERFORMED BY: CB [facility] Rhxtgc3668 Paiz RoadDublin [place] [id number] TSH 3.740 {uIU/mL} (Normal) Range: 0.450-4.500 :49 SED RATE ERYTHROCYTE (89158) Comments: PATIENT NOT FASTINGPERFORMED BY: CB [facility] Nmtzoa7938 Paiz RoadDublin [place] [id number] Sedimentation Rate-Westergren 68 mm/h (Abnormal) Range: 0-40 :49 METABOLIC PANEL, Comments: PATIENT NOT FASTINGPERFORMED BY: CB [facility] Oaoakf9249 Paiz RoadDublin [place] [id number] Information: HARD DRAW COMPREHENSIVE (75556) ALT (SGPT) 13 [iU]/L (Normal) Range: 0-32 [...] Glucose, Serum 86 mg/dL (Normal) Range: 65-99 15-Byt-681951:49 C-REACTIVE PROTEIN (86217) Comments: PATIENT NOT FASTINGPERFORMED BY: LabCoHudson County Meadowview HospitalZskhaf1826 [facility] [id number] C-Reactive Protein, Quant 39.7 mg/L (Abnormal) Range: 0.0-4.9 :49 CBC (AUTO) (88484) Comments: PATIENT NOT FASTINGPERFORMED BY: LabCoHudson County Meadowview HospitalBnyxwf7829 [facility] [id number] Platelets 289 {x10E3/uL} (Normal) Range: 150-379 RDW 14.1 % (Normal) Range: 12.3-15.4 MCHC 33.8 g/dL (Normal) Range: 31.5-35.7 MCH 28.8 pg (Normal) Range: 26.6-33.0 MCV 85 fL (Normal) Range: 79-97 Hematocrit 30.8 % (Abnormal) Range: 34.0-46.6 Hemoglobin 10.4 g/dL (Abnormal) Range: 11.1-15.9 RBC 3.61 {x10E6/uL} (Abnormal) Range: 3.77-5.28 WBC 7.4 {x10E3/uL} (Normal) Range: 3.4-10.8 16-Bdv-77823:53 Prothrombin Time w/INR Comments: Reason for Laboratory Test [facility]IN[facility] [address]xx[address], [address] INR 3.0 (Normal) PROTIME 30.2 s (Abnormal) Range: 11.7-14.9 66-Dhg-893793:29 URINE ANURAG CULTURE-IDENTIFICATN Comments: PATIENT NOT FASTINGPERFORMED BY: [facility] Ehlpjb5532 [facility] [id number] Information: SRC: ([id number]) Result 1 MUG (Normal) Comments: Mixed urogenital flora1,000 Colonies/mL Urine Culture,Comprehensive Final report (Normal) 04-Lot-806387:12 Urinalysis, Office (62792) UA - LEUKOCYTE ESTERASE Negative (Normal) UA - NITRITE Negative (Normal) URINE UROBILINGN TYSON TIMED Normal mg/dL (Normal) UA - PROTEIN 30 mg/dL (Normal) UA - PH 6 (Abnormal) UA - BLOOD non-hemolyzed trace (Normal) UA - SPECIFIC GRAVITY 1.020 (Normal) UA - KETONES Negative mg/dL (Normal) UA - BILIRUBIN Negative (Normal) UA - GLUCOSE Negative (Normal) 58-Gcl-242260:45 CBC W/Diff, Auto - EPLAB Comments: At [facility] Outpatient [facility] Medical Oncologypatients receive CBC w/auto Differential ONLY. Physicianwill place an order for a manual differential or Pathologistreview at his discretion. [facility] OUTPATIENT [facility]. [address] [place] [address] DEMURRAGE WORKER: OMERO ZAMUDIO DO PH:[phone] Hospital [address]qxhri[address] [place], [address] Absolute Lymph 1.02 {X10_3/uL} (Normal) [...] 4.2-5.4 WBC 6.9 K/mm3 (Normal) Range: 4.4-11.0 93-Xme-267381:32 LDH 182 U/L (Normal) Comments: Reason for Laboratory Test OFFICE VISIT/ROUTINESerial Specimen #1, #2 or #3? 1WC[facility] [address]kydnlxk28[address] [place], [address] Range: 84-246 71-Btl-092879:32 Prothrombin Time w/INR Comments: Reason for Laboratory Test ROUTINE MEDICATION CHECKWCleveland Clinic Medina Hospital Dnugvycupt35[address] [place], [address] INR 2.6 (Normal) PROTIME 27.2 s (Abnormal) Range: 11.7-14.9 03-Nfi-560246:24 CBC W/Diff, Auto - EPLAB Comments: Reason for Laboratory Test .At [facility] Outpatient [facility] Medical Oncologypatients receive CBC w/auto Differential ONLY. Physicianwill place an order for a manual differential or Pathologistrev Only iew at his discretion. [facility]. [address] [address] [address] DEMURRAGE WORKER: OMERO ZAMUDIO DO PH:[phone] Health St[facility] [address] [place], [address] Absolute Lymph 2.94 {X10_3/uL} (Normal) [...] 4.2-5.4 WBC 8.3 K/mm3 (Normal) Range: 4.4-11.0 07-Kwl-970876:24 Comprehensive Metabolic Profil Comments: Reason for Laboratory Test .[facility] [address]okgnb[address] [place], [address] GAP 7 (Normal) Range: 5-15 [...] 7-18 GLU 77 mg/dL (Normal) Range: 70-110 5-Vjn-896292:31 CBC W/Diff, Auto - EPLAB Only Comments: [facility] [address]ir[address] [place], [place], [address] Absolute Lymph 1.22 {X10_3/uL} (Normal) Range: 0.83-4.51 [...] K/mm3 (Normal) Range: 4.4-11.0 :31 Ferritin Comments: [address] [place], [phone] FERRITIN 77 ng/mL (Normal) Range: 8-252 :31 Iron+Iron Binding Capacity Comments: [address] [place], [phone] IRON SATURATION 20.8 % (Normal) Range: 15.0-55.0 IRON 61 ug/dL (Normal) Range: 50-170 TIBC 293 ug/dL (Normal) Range: 250-450 :31 Magnesium Comments: [address] [place], [address] MG 1.9 mg/dL (Normal) Range: 1.8-2.4 1-Fcq-109813:31 Microalb:Creat Ratio,Random UR Comments: [address] [place], [address] MALB:CREAT 15.2 {mg/g_CRE} (Normal) MICROALBUMIN,UR 19.0 mg/L (Normal) UR CREAT 125.00 mg/dL (Normal) :31 PTH,INTACT Comments: [address] [place], [address] PTH,Intact 8 pg/mL (Abnormal) Range: 14-72 3-Hrq-541016:31 Renal Profile Comments: [facility] [address] [place], [address] CO2 21.0 mmol/L (Normal) Range: 21.0-32.0 CL [...] 7-18 GLU 92 mg/dL (Normal) Range: 70-110 0-Nub-050874:31 Vitamin D,25 Hydroxy Comments: [facility] [address] [place], [address] Vitamin D 25-OH 33.0 ng/mL (Normal) Comments: Vitamin D 25(OH) Status Range Deficiency <20 ng/mL (50nmol/L) Insuffciency 20 - 30 ng/mL (50 - 75 nmol/L) Sufficiency 30 - 100 ng/mL (75 - 250 nmol/L) Toxicity >100 ng/mL (>250 nmol/L) 3-Hnj-683803:30 Prothrombin Time w/INR Comments: Reason for Laboratory Test .[facility] [address] [place], [address] INR 3.0 (Normal) PROTIME 30.0 s (Abnormal) Range: 11.7-14.9 24-Ysg-917756:19 Basic Metabolic Profile (BMP) Comments: [facility] [address] [place], [place], [address] GAP 6 (Normal) Range: 5-15 CO2 23.0 [...] 7-18 GLU 101 mg/dL (Normal) Range: 70-110 6-Dkc-257920:17 Prothrombin Time w/INR Comments: Reason for Laboratory Test .[facility] [address] [place], [place], [address] INR 2.3 (Normal) PROTIME 24.3 s (Abnormal) Range: 11.7-14.9 70-Mjx-884939:18 Prothrombin Time w/INR Comments: Send Results To: .Reason for Laboratory Test .[facility] [address] [place], [place], [address] INR 2.0 (Normal) PROTIME 21.7 s (Abnormal) Range: 11.7-14.9 3-Oca-962317:48 Prothrombin Time w/INR Comments: Reason for Laboratory Test OFFICE VISITWooEmily Ville [address] [place], [place], [address] INR 1.6 (Normal) PROTIME 18.7 s (Abnormal) Range: 11.7-14.9 92-Cea-792001:08 CBC W/Diff, Automated Comments: [facility] [address] [place], [address] Absolute Lymph 1.22 {X10_3/ul} (Normal) Range: 0.83-4.51 [...] 4.2-5.4 WBC 6.4 K/mm3 (Normal) Range: 4.4-11.0 19-Tdj-118293:01 Comprehensive Metabolic Profil Comments: Order Date: 10/25/16Order Info: [id number] - *CMP Complete Metabolic PanelWCleveland Clinic Medina Hospital [address]ublszrho[address] [place], [place], [address] GAP 6 (Normal) Range: 5-15 CO2 23.0 [...] 7-18 GLU 83 mg/dL (Normal) Range: 70-110 83-Uwh-176508:01 Prothrombin Time w/INR Comments: Order Date: 10/25/16Order Info: [id number] - *Prothrombin Time (PT)[facility] [address] [place], [place], [address] INR 1.4 (Normal) PROTIME 16.8 s (Abnormal) Range: 11.7-14.9 0-Phf-406761:44 Prothrombin Time w/INR Comments: [facility] [address] [place], [place], [address]) INR 1.8 (Normal) PROTIME 20.4 s (Abnormal) Range: 11.7-14.9 06-Moc-193846:35 Prothrombin Time w/INR Comments: Reason for Laboratory Test ROUTINE CHECKReason for Laboratory Test ROUTINE CHECKReason for Laboratory Test ROUTINE CHECKWCleveland Clinic Medina Hospital [address]upu[address] [place], [address] INR 1.9 (Normal) PROTIME 21.4 s (Abnormal) Range: 11.7-14.9 :52 C-REACTIVE PROTEIN (27172) Comments: PATIENT NOT FASTINGPERFORMED BY: [facility] Jppiel0469 [facility] [id number] C-Reactive Protein, Quant 2.2 mg/L (Normal) Range: 0.0-4.9 :52 SED RATE ERYTHROCYTE (95964) Comments: PATIENT NOT FASTINGPERFORMED BY: LabCoHudson County Meadowview HospitalQtpzjs4429 [facility] [id number] Sedimentation Rate-[facility] Hospital Of Rhode Islandren 51 mm/h (Abnormal) Range: 0-40 :52 CBC W/AUTO DIFF WBC (64668) Comments: PATIENT NOT FASTINGPERFORMED BY: [facility] Ozqdkp9573 [facility] [id number] Immature Grans (Abs) 0.0 {x10E3/uL} (Normal) Range: [...] 3.77-5.28 WBC 5.4 {x10E3/uL} (Normal) Range: 3.4-10.8 7-Dqm-529877:30 Prothrombin Time w/INR Comments: Reason for Laboratory Test MONITORINGReason for Laboratory Test MONITORINGReason for Laboratory Test MONITORINGWCleveland Clinic Medina Hospital [address]vsutg[address], [address] INR 1.9 (Normal) PROTIME 21.4 s (Abnormal) Range: 11.7-14.9 4-Jqg-362404:22 CBC W/Diff, Auto - Comments: GETS CBCD,CRP,CMP,SED RATE,TSH,B12,VITDDR.RHEA GETS CBCD,PROCRER,PTH,VITD,MG,RENALDRBEREKET GETS CBCD,CRP,CMP,SED RATE,TSH,B12,VITDDR.RHEA GETS CBCD,PROCRER,PTH,VITD,MG,RENALAt [facility] Outpatient Ce EPLAB Only nter [facility] Medical Oncologypatients receive CBC w/auto Differential ONLY. Physicianwill place an order for a manual differential or Pathologistreview at his discretion. [facility] OUT[facility]IENT [facility]. [address] [place] [address] [place] [address] DEMURRAGE WORKER: OMERO ZAMUDIO DO PH:[phone] Clinic Medina Hospital [address]wwcf[address], [address] Absolute Lymph 0.99 {X10_3/uL} (Normal) Range: 0.83-4.51 [...] 4.2-5.4 WBC 6.1 K/mm3 (Normal) Range: 4.4-11.0 6-Sni-950001:22 Comprehensive Metabolic Comments: GETS CBCD,CRP,CMP,SED RATE,TSH,B12,VITDDR.RHEA GETS CBCD,PROCRER,PTH,VITD,MG,RENALWCleveland Clinic Medina Hospital [address]lbemlh47[address] [place], [place], [address] Profil GAP 9 (Normal) Range: 5-15 CO2 [...] 7-18 GLU 87 mg/dL (Normal) Range: 70-110 1-Rjj-953577:22 CRP Comments: GETS CBCD,CRP,CMP,SED RATE,TSH,B12,VITDDR.RHEA GETS CBCD,PROCRER,PTH,VITD,MG,[facility] [address] [place], [place], [phone](176) C-REACTIVE PROT 10.40 mg/L (Abnormal) Range: 0.0-3.0 Comments: C-Reactive Protein (CRP) provides useful information for thediagnosis, therapy and monitoring of inflammatory processesand associated diseases. For the evaluation of Relative Riskfor Cardiovascular Dise ase, a High Sensitivity CRP (HSCRP)should be ordered. 2-Tvr-282676:22 Erythrocyte Sed Rate Comments: GETS CBCD,CRP,CMP,SED RATE,TSH,B12,VITDDR.RHEA GETS CBCD,PROCRER,PTH,VITD,MG,[facility] [address] [place], [address](101 SED RATE 91 mm/h (Abnormal) Range: 0-30 7-Sar-016480:22 Magnesium Comments: GETS CBCD,CRP,CMP,SED RATE,TSH,B12,VITDDR.RHEA GETS CBCD,PROCRER,PTH,VITD,MG,[facility] [address] [place], [address] MG 1.9 mg/dL (Normal) Range: 1.8-2.4 3-Qph-333261:22 Phosphorus Comments: GETS CBCD,CRP,CMP,SED RATE,TSH,B12,VITDDR.RHEA GETS CBCD,PROCRER,PTH,VITD,MG,[facility] [address] [place], [place], [address](382) PHOS 3.5 mg/dL (Normal) Range: 2.5-4.9 0-Jpc-282058:22 Protein+Creatinine Comments: GETS CBCD,CRP,CMP,SED RATE,TSH,B12,VITDDR.RHEA GETS CBCD,PROCRER,PTH,VITD,MG,[facility] [address] [place], [place], [phone](902) Ratio,Urine PROT:CRE RATIO 383 {mg/g_CRE} (Abnormal) Range: 0-200 PROTEIN,UR.RAN. 61.3 mg/dL (Abnormal) UR CREAT 160.00 mg/dL (Normal) 4-Gld-059585:22 PTH,INTACT Comments: GETS CBCD,CRP,CMP,SED RATE,TSH,B12,VITDDR.RHEA GETS CBCD,PROCRER,PTH,VITD,MG,[facility]NALNew[facility] Hospital [address]juuu[address] [place], [place], [phone](320) PTH,Intact 25 pg/mL (Normal) Range: 14-72 6-Ich-795378:22 Thyroid Stim Hormone Comments: GETS CBCD,CRP,CMP,SED RATE,TSH,B12,VITDDR.RHEA GETS CBCD,PROCRER,PTH,VITD,MG,[facility] [address] [place], [place], [phone] (TSH) TSH 2.60 {uIU/mL} (Normal) Range: 0.358-3.74 9-Mfg-316897:22 Vitamin B12 1286 pg/mL (Abnormal) Comments: GETS CBCD,CRP,CMP,SED RATE,TSH,B12,VITDDR.RHEA GETS CBCD,PROCRER,PTH,VITD,MG,RENALNewark Hospital [address]kszojus[address] [place], [address] Range: 211-911 0-Yts-466156:22 Vitamin D,25 Hydroxy Comments: GETS CBCD,CRP,CMP,SED RATE,TSH,B12,VITDDR.RHEA GETS CBCD,PROCRER,PTH,VITD,MG,[facility] Sgwzlvhcex6788 Elsabecka Niño. [place], [address] Vitamin D 25-OH 45.2 ng/mL (Normal) Comments: Vitamin D 25(OH) Status Range Deficiency <20 ng/mL (50nmol/L) Insuffciency 20 - 30 ng/mL (50 - 75 nmol/L) Sufficiency 30 - 100 ng/mL (75 - 250 nmol/L) Toxicity >100 ng/mL (>250 nmol/L) 13-Aid-402987:40 Prothrombin Time w/INR Comments: Order Date: 06/20/16Order Info: 6301-6 - *Prothrombin Time (PT)Order Date: 06/20/16Order Info: 6301-6 - *Prothrombin Time (PT)Order Date: 06/20/16Order Info: 6301-6 - *Prothrombin Time (PT)[facility] Ohgbapsxeo7721 Elsa Niño. C[place], [id number] INR 1.9 (Normal) PROTIME 21.3 s (Abnormal) Range: 11.7-14.9 71-Bnc-062880:48 Prothrombin Time w/INR Comments: Order Date: 10/25/16Order Info: 6301-6 - *Prothrombin Time (PT)Order Date: 10/25/16Order Info: 6301-6 - *Prothrombin Time (PT)Order Date: 10/25/16Order Info: 6301-6 - *Prothrombin Time (PT)[facility] Lfccnyjztd7310 Elsa Niño. C[place], [id number] INR 2.1 (Normal) PROTIME 22.5 s (Abnormal) Range: 11.7-14.9 89-Pjw-288318:34 CBC W/Diff, Auto - EPLAB Comments: Order Date: 07/13/16Order Info: [id number] - *CBC w/Diff - oncology ONLYOrder Date: 07/13/16Order Info: [id number]- [id number] - *CBC w/Diff - oncology ONLYAt [facility] [place] [facility] Oncologypatients Only receive CBC w/auto Differential ONLY. Physicianwill place an order for a manual differential or Pathologistreview at his discretion. [facility]. [address] [place] [address] [address] DEMURRAGE WORKER: OMERO ZAMUDIO DO PH:[phone] Date: 07/13/16Order Info: 0786-1 - *CMP Complete Metabolic PanelWCleveland [facility] Onlrrlneso[address] [place], [place], [id number] Absolute Lymph 1.04 {X10_3/uL} (Normal) Range: 0.83-4.51 [...] 4.2-5.4 WBC 5.3 K/mm3 (Normal) Range: 4.4-11.0 10-Cch-119228:34 Comprehensive Metabolic Profil Comments: Order Date: 07/13/16Order Info: 0786-1 - *CMP Complete Metabolic PanelFER, IRON, IBC ADDED PER FAXED ORDEROrder Date: 07/13/16Order Info: 0786-1 - *[facility] Complete Met[facility] PanelWCleveland Clinic [facility] Mwpqdrgdeu98[address] [place], [place], [id number] GAP 6 (Normal) Range: 5-15 CO2 24.0 [...] <126 mg/dLsuggests IMPAIRED HOMEOSTASIS per A.D.A. criteria. 95-Zzb-518247:34 Ferritin Comments: Order Date: 07/13/16Order Info: 0786-1 - *CMP Complete Metabolic PanelFER, IRON, IBC ADDED PER FAXED ORDEROrder Date: 07/13/16Order Info: 0786-1 - *CMP Complete Metabolic PanelWCleveland Clinic [facility] Pxkhgfwqel7883 [place], [address] FERRITIN 134 ng/mL (Normal) Range: 8-252 77-Buv-590564:34 Iron+Iron Binding Capacity Comments: Order Date: 07/13/16Order Info: 0786-1 - *CMP Complete Metabolic PanelFER, IRON, IBC ADDED PER FAXED ORDEROrder Date: 07/13/16Order Info: 0786-1 - *CMP Complete Metabolic PanelWCleveland Clinic Mercy Hospital Biueeilyzx3972 [place], [address] IRON SATURATION 21.6 % (Normal) Range: 15.0-55.0 IRON 60 ug/dL (Normal) Range: 50-170 TIBC 278 ug/dL (Normal) Range: 250-450 91-Hfn-519751:34 Prothrombin Time w/INR Comments: Order Date: 09/27/16Order Info: 6301-6 - *Prothrombin Time (PT)Order Date: 09/27/16Order Info: 6301-6 - *Prothrombin Time (PT)Order Date: 07/13/16Order Info: 0786-1 - *CMP Complete [facility] PanelWF[facility] Tztyksombl2099 [place], [id number] INR 1.8 (Normal) PROTIME 20.0 s (Abnormal) Range: 11.7-14.9 34-Ewn-848546:15 Prothrombin Time w/INR Comments: Order Date: 09/13/16Order Info: 6301-6 - *Prothrombin Time (PT)Comments: PT/INROrder Date: 09/13/16Order Info: 6301-6 - *Prothrombin Time (PT)Comments: PT/INROrder Date: 09/13/16Order Info: 6301-6 - * Prothrombin Time (PT)Comments: PT/INRWC[facility] Pxkeeenjlg2587 [place], [address] INR 2.0 (Normal) PROTIME 21.9 s (Abnormal) Range: 11.7-14.9 02-Jda-438388:23 Protein+Creatinine Ratio,Urine Comments: [facility] Smkzqzuqcy9024 [address] [place], [address] PROT:CRE RATIO 426 {mg/g_CRE} (Abnormal) Range: 0-200 PROTEIN,UR.RAN. 77.6 mg/dL (Abnormal) UR CREAT 182.00 mg/dL (Normal) 82-Wxw-162913:20 Magnesium Comments: [facility] Pethferjaw4142 [address] [place], [address] MG 1.8 mg/dL (Normal) Range: 1.8-2.4 23-Uft-115828:20 PTH,INTACT Comments: [facility] Nwphypgvxo9744 [address] [place], [address] PTH,Intact 112 pg/mL (Abnormal) Range: 14-72 60-Ona-446394:20 Renal Profile Comments: [facility] Voiybyrosg9572 [address] [place], [address] CO2 20.0 mmol/L (Abnormal) Range: 21.0-32.0 CL [...] 7-18 GLU 75 mg/dL (Normal) Range: 70-110 83-Css-810080:20 Vitamin D,25 Hydroxy Comments: [facility] Fkpkqnepyz9820 Elsa [place], [place], [address] Vitamin D 25-OH 64.2 ng/mL (Normal) Comments: Vitamin D 25(OH) Status Range Deficiency <20 ng/mL (50nmol/L) Insuffciency 20 - 30 ng/mL (50 - 75 nmol/L) Sufficiency 30 - 100 ng/mL (75 - 250 nmol/L) Toxicity >100 ng/mL (>250 nmol/L) 30-Wte-979462:11 Prothrombin Time w/INR Comments: Order Date: 08/30/16Order Info: 6301-6 - *Prothrombin Time (PT)Comments: PT/INROrder Date: 08/30/16Order Info: 6301-6 - *Prothrombin Time (PT)Comments: PT/INROrder Date: 08/30/16Order Info: 6301-6 - * Prothrombin Time (PT)Comments: PT/INRWCleveland Clinic [facility]ina [facility] Nsxtdddtuz9343 [facility] [place], [place], [address] INR 2.0 (Normal) PROTIME 22.0 s (Abnormal) Range: 11.7-14.9 8-Cld-378803:04 Prothrombin Time w/INR Comments: Order Date: 08/30/16Order Info: 6301-6 - *Prothrombin Time (PT)Comments: PT/INROrder Date: 08/30/16Order Info: 6301-6 - *Prothrombin Time (PT)Comments: PT/INROrder Date: 08/30/16Order Info: 6301-6 - * Prothrombin Time (PT)Comments: [facility]RNew[facility] Veglpehqqp9832 [address]. [place], [place], [address] INR 2.7 (Normal) PROTIME 27.5 s (Abnormal) Range: 11.7-14.9 25-Efe-430216:14 Prothrombin Time w/INR Comments: Order Date: 08/16/16Order Info: 6301-6 - *Prothrombin Time (PT)Order Date: 08/16/16Order Info: 6301-6 - *Prothrombin Time (PT)Order Date: 08/16/16Order Info: 6301-6 - *Prothrombin Time (PT)[facility] [address] [place], [place], [address] INR 3.7 (Abnormal) Comments: CRITICAL VALUE REPEATED AND VERIFIED. [facility] EJVRBSZQ54/31/17 1442 Genevieve Shin.RESULTS READ BACK BY SAME . PROTIME 35.5 s (Abnormal) Range: 11.7-14.9 46-Ioy-374853:29 Prothrombin Time w/INR Comments: Order Date: 08/10/16Order Info: 6301-6 - *Prothrombin Time (PT)Comments: PT/INROrder Date: 08/10/16Order Info: 6301-6 - *Prothrombin Time (PT)Comments: PT/INROrder Date: 08/10/16Order Info: 6301-6 - * Prothrombin Time (PT)Comments: PT/INRWCleveland Clinic Medina Hospital X[address]ltpykcim[address] [place], [place], [address](570) INR 2.4 (Normal) PROTIME 25.5 s (Abnormal) Range: 11.7-14.9 45-Evd-157506:12 Prothrombin Time w/INR Comments: Order Date: 08/02/16Order Info: 6301-6 - *Prothrombin Time (PT)Order Date: 08/02/16Order Info: 6301-6 - *Prothrombin Time (PT)Order Date: 08/02/16Order Info: 6301-6 - *Prothrombin Time (PT)[facility] Lamw[address]kbt[address] [place], [place], [address](233) INR 2.3 (Normal) PROTIME 24.3 s (Abnormal) Range: 11.7-14.9 30-Kfn-376477:35 CBC W/Diff, Auto - EPLAB Comments: Order Date: 07/13/16Order Info: 0184-1E - *CBC w/Diff - oncology ONLYOrder Date: 07/13/16Order Info: 0184- 1E - *CBC w/Diff - oncology ONLYAt [facility] Outpatient [facility] Medical Oncologypatients Only receive CBC w/auto Differential ONLY. Physicianwill place an order for a manual differential or Pathologistreview at his discretion. [facility]. [address] [place] [address] [address] DEMURRAGE WORKER: OMERO ZAMUDIO DO PH:[phone] Date: 07/13/16Order Info: 0786-1 - *CMP Complete Metabolic PanelWCleveland Clinic Medina Hospital Chblkzicxf5363 [address] [place], [id number] Absolute Lymph 1.16 {X10_3/uL} (Normal) Range: 0.83-4.51 [...] 4.2-5.4 WBC 6.5 K/mm3 (Normal) Range: 4.4-11.0 40-Hyv-244541:35 Comprehensive Metabolic Profil Comments: Order Date: 07/13/16Order Info: 0786-1 - *CMP Complete Metabolic PanelOrder Date: 07/13/16Order Info: 0786-1 - *CMP Complete Metabolic PanelWCleveland Clinic Med[facility] Hospital Gftreedovl2579 [address] [place], [address] GAP 9 (Normal) Range: 5-15 CO2 21.0 [...] 7-18 GLU 78 mg/dL (Normal) Range: 70-110 82-Xpk-961099:35 Prothrombin Time w/INR Comments: Order Date: 07/13/16Order Info: 6301-6 - *PT/INROrder Date: 07/13/16Order Info: 6301-6 - *PT/INROrder Date: 07/13/16Order Info: 0786-1 - *CMP Complete Metabolic PanelWCleveland Clinic [facility] Hospital Laborat pul[address] [place], [place], [address](900) INR 2.1 (Normal) PROTIME 22.8 s (Abnormal) Range: 11.7-14.9 38-Neo-110878:21 Ferritin Comments: [facility] Jkvpfoleya6[address] [facility] [address] [place], [place], [address] FERRITIN 196 ng/mL (Normal) Range: 8-252 58-Ssl-164440:21 Iron+Iron Binding Capacity Comments: [facility] Ttlytabagn7093 [place], [address] IRON SATURATION 18.8 % (Normal) Range: 15.0-55.0 IRON 48 ug/dL (Abnormal) Range: 50-170 TIBC 256 ug/dL (Normal) Range: 250-450 :48 CBC, PLATELETS & AUT DIFF Comments: Send to Je Parra; PATIENT NOT FASTINGPERFORMED BY: LabCoHudson County Meadowview HospitalAxzsmg1242 [facility] [id number] (69[address]) Immature Grans (Abs) 0.0 {x10E3/uL} (Normal) Range: [...] to Je Parra; PATIENT NOT FASTINGPERFORMED BY: LabZebra Technologies6370 [facility] [id number] (11235) ALT (SGPT) 7 [iU]/L (Normal) Range: 0-32 [...] Glucose, Serum 92 mg/dL (Normal) Range: 65-99 95-Con-991620:48 PT (Prothrobim Time) (45649) Comments: Send to Dorinda Parra; PATIENT NOT FASTINGPERFORMED BY: LabCoSpotRightFatxjs4134 [facility] [id number] Prothrombin Time 34.0 {sec} (Abnormal) Range: 9.1-12.0 INR 3.4 (Abnormal) Range: 0.8-1.2 Comments: Reference interval is for non-anticoagulated patients. . Suggested INR therapeutic range for Vitamin K anta gonist therapy: Standard Dose (moderate intensity therapeutic range): 2.0 - 3.0 Higher intensity therapeutic range 2.5 - 3.5 25-Jqw-928848:37 Basic Metabolic Profile (BMP) Comments: Order Date: 07/12/16Order Info: 0667-1 - BMPOrder Info: 83003-6 - IBCOrder Info: 2276-4 - FEROrder Date: 07/12/16Order Info: 2276-4 - FERComments: to Dr. Felix Dorsey [facility] wqib6304 [facility] [place], [address] GAP 8 (Normal) Range: 5-15 CO2 20.0 [...] 7-18 GLU 104 mg/dL (Normal) Range: 70-110 45-Cnx-558239:37 CBC W/Diff, Automated Comments: Order Date: 07/12/16Order Info: 0184-1 - CBCDComments: to Dr. Felix Mohamud Date: 07/12/16Order Info: 0184- 1 - CBCDComments: to Dr. Felix Mohamud Date: 07/12/16Order Info: 2276-4 - FERComments : to [facility]. [facility] Wtgtbtkxpj0883 [place], [address] Absolute Lymph 1.04 {X10_3/ul} (Normal) Range: 0.83-4.51 [...] 4.2-5.4 WBC 6.6 K/mm3 (Normal) Range: 4.4-11.0 10-Vbm-845405:37 Iron+Iron Binding Capacity Comments: Order Date: 07/12/16Order Info: 0667-1 - BMPOrder Info: 39242-6 - IBCOrder Info: 2276-4 - FEROrder Date: 07/12/16Order Info: 2276-4 - FERComments: to Felix [facility] Labora etyi0208 [place], [address] IRON 40 ug/dL (Abnormal) Range: 50-170 IRON SATURATION 12.5 % (Abnormal) Range: 15.0-55.0 TIBC 321 ug/dL (Normal) Range: 250-450 :37 Prothrombin Time w/INR Comments: Order Date: 07/12/16Order Info: 6301-6 - PTOrder Date: 07/12/16Order Info: 6301-6 - PTOrder Date: 07/12/16Order Info: 2276-4 - [facility] Wnpxsnxzas4186 [address] [place], [place], [address] INR 2.2 (Normal) PROTIME 24.0 s (Abnormal) Range: 11.7-14.9 :37 FERRITIN (45880) Comments: to Dr. Felix Parra; Order Date: 07/12/16Order Info: 0667-1 - BMPOrder Info: 86133-9 - IBCOrder Info: 2276-4 - FEROrder Date: 07/12/16Order Info: 2276-4 - FERComments: [facility] Dr[facility] Zcjrkvkvbw8637 [address] Ni[address], [address] FERRITIN 311 ng/mL (Abnormal) Range: 8-252 77-Osd-137049:50 Urinalysis, Complete Comments: Order Date: 06/17/16Has pt arrived? YOrder Date: 06/17/16Has pt arrived? YHow was Urine Obtained? MENTAL RETARDATION NURSE TO [facility] Zwnwperewu7[address] [place], [id number] MUCUS, URINE 0 SEEN {/hpf} (Normal) BACTERIA [...] CLARITY Sl. Cloudy (Normal) COLOR Yellow (Normal) 30-Nam-680294:15 Partial Thromboplast Time Comments: REDRAW. PREVIOUS SPECIMEN REJECTED DUE TOCONTAMINATED WITH HEPARIN FROM PORT DRAW. 06/17/[address] [place] [address].CRITICAL VALUE REPEATED AND VERIFIED. CALLED TO [id number]/18/16 1255 Raul Watts.R ESULTS READ BACK BY SAME .[facility] Mblmxrdcno1407 [address] [place], [place], [address] PTT 71.1 s (Abnormal) Range: 24.1-36.2 84-Clf-740885:15 Prothrombin Time w/INR Comments: REDRAW. PREVIOUS SPECIMEN REJECTED DUE TOCONTAMINATED WITH HEPARIN FROM PORT DRAW. 06/17/16 [facility] Healthcare[facility]arnixs.CRITICAL VALUE REPEATED AND VERIFIED. CALLED TO [id number]/18/16 1255 Raul Watts.R ESULTS READ BACK BY SAME .[facility] Uougisrmeq4974 [address] [place], [place], [address] INR 4.0 (Abnormal) PROTIME 37.5 s (Abnormal) Range: 11.7-14.9 26-Tym-663888:30 Basic Metabolic Profile (BMP) Comments: [facility] Rmdauwewhr3265 [address] [place], [place], [address] GAP 15 (Normal) Range: 5-15 CO2 17.0 [...] 7-18 GLU 92 mg/dL (Normal) Range: 70-110 87-Bze-373632:30 CBC W/Diff, Automated Comments: [facility] Gyxqnnsskr5810 [address], [address] Absolute Lymph 0.82 {X10_3/ul} (Abnormal) Range: 0.83-4.51 [...] 4.2-5.4 WBC 6.3 K/mm3 (Normal) Range: 4.4-11.0 98-Ckb-050920:29 URINE ANURAG CULTURE-IDENTIFICATN Comments: PATIENT NOT FASTINGPERFORMED BY: [facility] Bwiwfw8779 [facility] [id number] Information: SRC:EVERETT (85759) Result 1 Lactobacillus species Comments: 50,000-100,000 colony forming units per mLSusceptibility not normally performed on this organism. (Normal) Urine Final report (Normal) Culture,Comprehensive 55-Dxw-892265:02 Urinalysis, Office (86166) UA - LEUKOCYTE ESTERASE Large (Normal) UA - NITRITE Negative (Normal) URINE UROBILINGN TYSON TIMED 2 mg/dL (Normal) UA - PROTEIN 100 mg/dL (Normal) UA - PH 6.0 (Normal) UA - BLOOD Hemolyzed Trace (Normal) UA - SPECIFIC GRAVITY 1.025 (Normal) UA - KETONES Negative mg/dL (Normal) UA - BILIRUBIN Negative (Normal) UA - GLUCOSE Negative (Normal) 65-Rxl-955927:24 Prothrombin Time w/INR Comments: CRITICAL VALUE REPEATED AND VERIFIED. CALLED TO [facility]08/16/15 1438 Raul Watts.RESULTS READ BACK BY MARTA .[facility] Imxouwgbgs14[address] [place], [place], [phone](973) INR 3.8 (Abnormal) Comments: CRITICAL VALUE REPEATED AND VERIFIED. CALLED TO06/16/16 1438 Raul Watts.RESULTS READ BACK BY . PROTIME 36.1 s (Abnormal) Range: 11.7-14.9 9-Tud-960726:17 Prothrombin Time w/INR Comments: [facility] On[address] [place], [place], [address](656) INR 2.1 (Normal) PROTIME 23.1 s (Abnormal) Range: 11.7-14.9 7-Llz-031646:16 CBC W/Diff, Auto - EPLAB Comments: SPECIMEN OBTAINED FROM LINE DRAWAt [facility] Medical Oncologypatients receive CBC w/auto Differential ONLY. Physicianwill place an order for a manual differential or Pathologis Only treview at his discretion. [facility] OUTPATIENT [facility]. [address] [place] [address] [place] [address] DEMURRAGE WORKER: OMERO ZAMUDIO DO PH:[phone] City Hospital Fwetzbryfg0917 [place], [address] Absolute Lymph 1.13 {X10_3/uL} (Normal) Range: 0.83-4.51 [...] 4.2-5.4 WBC 5.0 K/mm3 (Normal) Range: 4.4-11.0 5-Tay-121941:16 Comprehensive Metabolic Profil Comments: Order Date: 03/09/16Interface Comments: Reason:Order Date: 03/09/16erial Specimen #1, #2 or #3? 1WC[facility] Bamxrlawct7032 [address], [address] GAP 9 (Normal) Range: 5-15 CO2 21.0 [...] 7-18 GLU 92 mg/dL (Normal) Range: 70-110 5-Wll-608524:16 Ferritin Comments: Order Date: 03/09/16Interface Comments: Reason:Order Date: 16Serial Specimen #1, #2 or #3? [address] [place] [address] Gjmapvtbcm0777 [address] [place], [address] FERRITIN 120 ng/mL (Normal) Range: 8-252 9-Wik-588454:16 Iron Comments: Order Date: 03/09/16Interface Comments: Reason:Order Date: 16Serial Specimen #1, #2 or #3? [address] [place] [address] Wlgjxsjlml5971 [address] [place], [address] IRON 107 ug/dL (Normal) Range: 50-170 3-Hye-992110:16 Iron Binding Capacity,Total Comments: Order Date: 03/09/16Interface Comments: Reason:Order Date: 03/09/16Serial Specimen #1, #2 or #3? [address] [place] [address] Kdihztxrkt8198 [address] [place], [id number] TIBC 287 ug/dL (Normal) Range: 250-450 9-Urg-337848:16 LDH 174 U/L (Normal) Comments: Order Date: 03/09/16Interface Comments: Reason:Order Date: 03/09/16Serial Specimen #1, #2 or #3? [address] [place] [address] [place], [address] Range: 84-246 2-Qqq-411415:16 Uric Acid Comments: Order Date: 03/09/16Interface Comments: Reason:Order Date: 03/09/16Serial Specimen #1, #2 or #3? 1[facility] Gfmmngclez85[address] [place], [address] URIC 6.2 mg/dL (Abnormal) Range: 2.6-6.0 Comments: The drugs N-Acetylcysteine and Metamizole may falsely deressthis assay. 77-Lrs-832165:27 Prothrombin Time w/INR Comments: Order Date: 05/13/16Order Info: 6301-6 - *Prothrombin Time (PT)Comments: PT/INROrder Date: 05/13/16Order Info: 6301-6 - *Prothrombin Time (PT)Comments: PT/INRWOur [facility] of [facility] - Anderson17[address] [place], [address] INR 3.1 (Normal) PROTIME 31.0 s (Abnormal) Range: 11.7-14.9 79-Xhp-497499:35 URINE ANURAG CULTURE-IDENTIFICATN Comments: PATIENT NOT FASTINGPERFORMED BY: [facility] Fnilqm5596 [facility] [id number] Information: SRC:EVERETT (79416) Antimicrobial MIHEAD (Normal) Comments: S = Susceptible; [...] primarily for treating urinary tract infections. (CLSI, P593-W95,2009) Urine Culture,Comprehensive Final report (Abnormal) 37-Vdp-770529:29 Urinalysis, Office (61988) UA - LEUKOCYTE ESTERASE Large (Normal) UA - NITRITE Negative (Normal) URINE UROBILINGN TYSON TIMED Normal mg/dL (Normal) UA - PROTEIN 30 mg/dL (Normal) UA - PH 6.0 (Normal) Comments: 5.5 UA - BLOOD non-hemolyzed trace (Normal) UA - SPECIFIC GRAVITY 1.025 (Normal) UA - KETONES Negative mg/dL (Normal) UA - BILIRUBIN Negative (Normal) UA - GLUCOSE Negative (Normal) 15-Czk-281891:23 Prothrombin Time w/INR Comments: Order Date: 05/09/16Order Date: 05/09/16[facility] Vwpwenbmvu64[address], [address] INR 1.8 (Normal) PROTIME 20.7 s (Abnormal) Range: 11.7-14.9 45-Bwq-526437:26 Prothrombin Time w/INR Comments: Order Date: 05/04/16Order Date: 05/04/16[facility] Oeebkvqcbf035[address] [place], [address] INR 1.8 (Normal) PROTIME 19.9 s (Abnormal) Range: 11.7-14.9 04-May-20169:31 Prothrombin Time w/INR Comments: CRITICAL VALUE REPEATED AND VERIFIED. CALLED TO [facility] Zulma Watts.RESULTS READ BACK BY MARTA .[facility] Mrlmprhhis5[address] [place], [phone] INR 4.4 (Abnormal) PROTIME 40.4 s (Abnormal) Range: 11.7-14.9 :44 CBC W/Diff, Auto - EPLAB Comments: At [facility] Medical Oncologypatients receive CBC w/auto Differential ONLY. Physicianwill place an order for a manual differential or Pathologistreview at his discretion. [facility] OUTPATIENT [facility]. [address] [place] [address] [place] [address] DEMURRAGE WORKER: OMERO ZAMUDIO DO PH:[phone] Hospital Fcbyjqsola[address] [place], [place], [phone](052) Absolute Lymph 1.16 {X10_3/uL} (Normal) Range: 0.83-4.51 [...] 4.2-5.4 WBC 6.9 K/mm3 (Normal) Range: 4.4-11.0 :44 Magnesium Comments: [facility] [address] [place], [place], [phone](941) MG 1.7 mg/dL (Abnormal) Range: 1.8-2.4 :44 Protein+Creatinine Ratio,Urine Comments: [facility] Zhrlnmsoxe[address] [place], [address] PROT:CRE RATIO 397 {mg/g_CRE} (Abnormal) Range: 0-200 PROTEIN,UR.RAN. 89.0 mg/dL (Abnormal) UR CREAT 224.00 mg/dL (Normal) :44 PTH,INTACT Comments: [facility] [address]ceymzezsz6[address] [place], [address] PTH,Intact 199 pg/mL (Abnormal) Range: 14-72 :44 Renal Profile Comments: [facility] Pudvvusskz9378 [place], [address] CO2 21.0 mmol/L (Normal) [...] 7-18 GLU 94 mg/dL (Normal) Range: 70-110 81-Jaa-801629:44 Vitamin D,25 Hydroxy Comments: [facility] Pyhipavqcq8265 [address] [place], [address] Vitamin D 25-OH 33.1 ng/mL (Normal) Comments: Vitamin D 25(OH) Status Range Deficiency <20 ng/mL (50nmol/L) Insuffciency 20 - 30 ng/mL (50 - 75 nmol/L) Sufficiency 30 - 100 ng/mL (75 - 250 nmol/L) Toxicity >100 ng/mL (>250 nmol/L) 22-Evl-377339:55 Prothrombin Time w/INR Comments: Order Date: 04/06/16Interface Comments: PT/INROrder Date: 04/06/16[facility] Z[address]tmpkatem[address] [place], [address]071 INR 2.2 (Normal) PROTIME 23.9 s (Abnormal) Range: 11.7-14.9 6-Bzt-106974:22 Prothrombin Time w/INR Comments: Order Date: 03/30/16Order Date: 03/30/16[facility] Auameppvjn[address] [place], [address]31 INR 2.9 (Normal) PROTIME 29.4 s (Abnormal) Range: 11.7-14.9 88-Zzb-376722:02 Prothrombin Time w/INR Comments: Diagnosis:Order Date: 01/14/16OV ID:OV Order #: [id number] Hospital Yyeqigwewk07[address] [place], [address] INR 1.9 (Normal) PROTIME 21.1 s (Abnormal) Range: 11.7-14.9 73-Dbh-597366:28 CBC W/Diff, Auto - EPLAB Comments: At [facility] Outpatient [facility] [place] Medical Oncologypatients receive CBC w/auto Differential ONLY. Physicianwill place an order for a manual differential or Pathologistreview at his discretion. [facility] OUTPATIENT [facility]. [address] [place] [address] [place] [address] DEMURRAGE WORKER: OMERO ZAMUDIO DO PH:[phone] Hospital Ygpcolbcmg7916 [address] [place], [id number] Absolute Lymph 1.22 {X10_3/uL} (Normal) Range: 0.83-4.51 [...] 4.2-5.4 WBC 4.1 K/mm3 (Abnormal) Range: 4.4-11.0 74-Nys-391201:28 Comprehensive Metabolic Profil Comments: Order Date: 03/09/16OV Order #: [id number] Specimen #1, #2 or #3? 1 [id number] Vbmktabaki2031 [place], [address] GAP 6 (Normal) Range: 5-15 CO2 23.0 [...] 7-18 GLU 73 mg/dL (Normal) Range: 70-110 29-Rmc-566737:28 Ferritin Comments: Order Date: 03/09/16 Order #: [id number] Specimen #1, #2 or #3? [address] [place] [address] Cxhzwvqbmq0630 [address] [place], [place], [address] FERRITIN 117 ng/mL (Normal) Range: 8-252 98-Xqm-305374:28 Iron+Iron Binding Capacity Comments: Order Date: 03/09/16 Order #: [id number] Specimen #1, #2 or #3? [address] [place] [address] Glwvzfplue7516 [address] [place], [place], [id number] IRON SATURATION 33.1 % (Normal) Range: 15.0-55.0 IRON 97 ug/dL (Normal) Range: 50-170 TIBC 293 ug/dL (Normal) Range: 250-450 :28 LDH 169 U/L (Normal) Comments: Order Date: 03/09/16 Order #: [id number] Specimen #1, #2 or #3? [address] [place] [address] Qslybcksac2384 [address] [place], [place], [address] Range: 84-246 72-Yvz-505084:28 Prothrombin Time w/INR Comments: Order Date: 03/09/16 Order #: [id number] Hospital [address]qyl[address] [place], [address] INR 2.7 (Normal) PROTIME 28.2 s (Abnormal) Range: 11.7-14.9 :28 Uric Acid Comments: Order Date: 03/09/16OV Order #: [id number] Specimen #1, #2 or #3? 1 [id number] Hospital [address] [place], [address] URIC 6.5 mg/dL (Abnormal) Range: 2.6-6.0 Comments: The drugs N-Acetylcysteine and Metamizole may falsely deressthis assay. :49 Prothrombin Time w/INR Comments: Diagnosis:Order Date: 03/03/16OV ID:OV Order #: [id number] Hospital [address]wo[address] [place], [address] INR 2.9 (Normal) PROTIME 29.4 s (Abnormal) Range: 11.7-14.9 :11 Prothrombin Time w/INR Comments: [facility] [address] [place], [address] INR 2.8 (Normal) PROTIME 28.3 s (Abnormal) Range: 11.7-14.9 :50 Prothrombin Time w/INR Comments: [facility] [address] [place], [address] INR 2.5 (Normal) PROTIME 26.0 s (Abnormal) Range: 11.7-14.9 :10 Prothrombin Time w/INR Comments: [facility] [address] [place], [address] INR 1.7 (Normal) PROTIME 19.3 s (Abnormal) Range: 11.7-14.9 :33 CBC W/Diff, Auto - EPLAB Comments: At [facility] Outpatient [facility], [place] [facility] Oncologypatients receive CBC w/auto Differential ONLY. Physicianwill place an order for a manual differential or Pathologistreview at his discretion. [facility] [address]. [address] [address] [address] DEMURRAGE WORKER: OMERO ZAMUDIO DO PH:[phone] [address] [place], [address] Absolute Lymph 1.04 {X10_3/uL} (Normal) [...] Range: 4.4-11.0 :32 Prothrombin Time w/INR Comments: [facility] [address], [address] INR 2.3 (Normal) PROTIME 24.2 s (Abnormal) Range: 11.7-14.9 :26 Prothrombin Time w/INR Comments: [facility] [address], [address] INR 2.1 (Normal) PROTIME 22.9 s (Abnormal) Range: 11.7-14.9 [id number]-[id number]:15 Prothrombin Time w/INR Comments: [facility] [address] [place], [place], [address] INR 2.2 (Normal) PROTIME 23.5 s (Abnormal) Range: 11.7-14.9 [id number]-Kig-[id number]:14 Comprehensive Metabolic Profil Comments: [facility] [address] [place], [address] GAP 6 (Normal) Range: 5-15 CO2 23.0 [...] 7-18 GLU 78 mg/dL (Normal) Range: 70-110 [id number]-Moe-223005:14 LDH 197 U/L (Normal) Comments: [facility] [address] [place], [id number] Range: 84-246 84-Twn-835155:14 Uric Acid Comments: [facility] [address], [address] URIC 7.2 mg/dL (Abnormal) Range: 2.6-6.0 33-Cyp-520551:10 CBC W/Diff, Auto - EPLAB Comments: At [facility] Out[facility] [place] [facility] Oncologypatients receive CBC w/auto Differential ONLY. Physicianwill place an order for a manual differential or Pathologistreview at his discretion. [facility] [facility]. [address] [place] [address] DEMURRAGE WORKER: OMERO ZAMUDIO DO PH:[phone] Clinic [facility]ina [facility] Iebmifxhiq3[address]. [place], [id number] Absolute Lymph 1.12 {X10_3/uL} (Normal) Range: 0.83-4.51 [...] 4.2-5.4 WBC 5.8 K/mm3 (Normal) Range: 4.4-11.0 3-Cdl-421430:31 Prothrombin Time w/INR Comments: [facility] [address]sczqghpcy[address] [place], [place], [address] INR 2.9 (Normal) PROTIME 29.3 s (Abnormal) Range: 11.7-14.9 75-Fpp-061234:01 CBC W/Diff, Auto - EPLAB Comments: SPECIMEN OBTAINED FROM LINE DRAWAt [facility] Medical Oncologypatients receive CBC w/auto Differential ONLY. Physicianotf place an order for a manual differential or Pathologis Only treview at his discretion. [facility] OUTPATIENT [facility]. [address] [place] [address] [address] DEMURRAGE WORKER: OMERO ZAMUDIO DO PH:[phone] Hospitals Elyria Medical Center Sxmyddogrq0672 [address] [place], [place], [address] Absolute Lymph 1.09 {X10_3/uL} (Normal) Range: 0.83-4.51 [...] 4.2-5.4 WBC 5.5 K/mm3 (Normal) Range: 4.4-11.0 18-Uwr-836292:00 Prothrombin Time w/INR Comments: [facility] Nurgozpqxc[address] [place], [place], [address] INR 2.5 (Normal) PROTIME 26.4 s (Abnormal) Range: 11.7-14.9 52-Zrw-144727:59 Comprehensive Metabolic Profil Comments: Serial Specimen #1, #2 or #3? [address] [place] [address] Cmmcxhirlp5083 [address] [place], [place], [address] GAP 8 (Normal) Range: 5-15 CO2 22.0 [...] 7-18 GLU 78 mg/dL (Normal) Range: 70-110 76-Aui-721534:59 Ferritin Comments: Serial Specimen #1, #2 or #3? [address] [place] [address] [place], [address] FERRITIN 84 ng/mL (Normal) Range: 8-252 37-Vsq-009096:59 Iron+Iron Binding Capacity Comments: Serial Specimen #1, #2 or #3? [address] [place] [address] Nqcatyfsmf2095 [place], [address] IRON SATURATION 27.2 % (Normal) Range: 15.0-55.0 IRON 83 ug/dL (Normal) Range: 50-170 TIBC 305 ug/dL (Normal) Range: 250-450 20-Fhr-666880:59 LDH 195 U/L (Normal) Comments: Serial Specimen #1, #2 or #3? [address] [place] [address] Zkjwhvhwed5280 [address] [place], [address] Range: 84-246 84-Glj-591721:59 Uric Acid Comments: Serial Specimen #1, #2 or #3? [address] [place] [address] Irfosplniy1291 [address] [place], [address] URIC 7.2 mg/dL (Abnormal) Range: 2.6-6.0 54-Jyf-922088:33 Prothrombin Time w/INR Comments: [facility] Oblppicziw5272 [place], [address] INR 3.0 (Normal) PROTIME 29.9 s (Abnormal) Range: 11.7-14.9 71-Srq-566360:08 Prothrombin Time w/INR Comments: [place] [address] [place], [address] INR 3.1 (Normal) PROTIME 30.8 s (Abnormal) Range: 11.7-14.9 05-Nov-20150:00 Basic Metabolic Profile (BMP) Comments: [facility] Tjtkjhkvbu8175 [address] [place], [id number] GAP 4 (Abnormal) Range: 5-15 CO2 24.0 [...] 7-18 GLU 80 mg/dL (Normal) Range: 70-110 2-Yov-273898:23 Magnesium Comments: [facility] [address] [place], [phone](521) MG 1.8 mg/dL (Normal) Range: 1.8-2.4 9-Seo-094403:23 Protein+Creatinine Ratio,Urine Comments: [facility] [address] [place], [address] PROT:CRE RATIO 355 {mg/g_CRE} (Abnormal) Range: 0-200 PROTEIN,UR.RAN. 56.8 mg/dL (Abnormal) UR CREAT 160.00 mg/dL (Normal) 1-Ihu-834034:23 Prothrombin Time w/INR Comments: [facility] O[address] [place], [id number] INR 3.1 (Normal) PROTIME 31.8 s (Abnormal) Range: 11.7-14.9 2-Gjq-048982:23 PTH,INTACT Comments: [facility] [address] [place], [address] PTH,Intact 71 pg/mL (Normal) Range: 14-72 4-Aqf-134617:23 Renal Profile Comments: [facility] [address] [place], [id number](652) CO2 22.0 mmol/L (Normal) Range: 21.0-32.0 CL [...] 7-18 GLU 83 mg/dL (Normal) Range: 70-110 5-Ysb-845770:23 Vitamin D 1,25-Dihydroxy Comments: [facility] (refer to report for specific site)refer to report for address and phone number VITD [phone] 49853 25.0 pg/mL (Normal) Range: 19.9-79.3 Comments: Performed at: [address] [id number] Director: Matthew Nino MD, Phone: [phone] 8-Vjg-561086:22 CBC W/Diff, Auto - EPLAB Comments: At [facility] Out[facility] Medical Oncologypatients receive CBC w/auto Differential ONLY. Physicianwill place an order for a manual differential or Pathologistreview at his discretion. [facility] OUTPATIENT [facility]. [address] [place] [address] [address] DEMURRAGE WORKER: OMERO ZAMUDIO DO PH:[phone] Hospital Qfriwivpiw2173 [address] [place], [place], [address] Absolute Lymph 1.64 {X10_3/uL} (Normal) Range: 0.83-4.51 [...] 4.2-5.4 WBC 6.1 K/mm3 (Normal) Range: 4.4-11.0 35-Ynh-580444:39 Microscopic Examination Comments: PATIENT NOT FASTINGPERFORMED BY: [employer]70 [facility]UNC [facility] [id number] Bacteria None seen (Normal) Mucus Threads Present (Normal) Crystal Type Calcium Oxalate (Normal) Crystals Present (Abnormal) Epithelial Cells (non renal) 0-10 {/hpf} (Normal) Range: 0 - 10 RBC 0-2 {/hpf} (Normal) Range: 0 - 2 WBC 0-5 {/hpf} (Normal) Range: 0 - 5 41-Ack-760141:39 LIPID PANEL (00601) Comments: PATIENT NOT FASTINGPERFORMED BY: [employer]6370 [facility]UNC [facility] [id number] LDL/HDL Ratio 1.9 {ratio_units} (Normal) Range: 0.0-3.2 [...] Cholesterol, Total 185 mg/dL (Normal) Range: 100-199 :39 TSH (51674) Comments: PATIENT NOT FASTINGPERFORMED BY: [employer] [facility] [id number] TSH 1.800 {uIU/mL} (Normal) Range: 0.450-4.500 :39 URINALYSIS, W/ MICRO (51099) Comments: PATIENT NOT FASTINGPERFORMED BY: [employer] [facility] [id number] Microscopic Examination See below: (Normal) Comments: Microscopic was indicated and was performed. Nitrite, Urine Negative (Normal) Urobilinogen,Semi-Qn 0.2 mg/dL (Normal) Range: 0.2-1.0 Bilirubin Negative (Normal) Occult Blood Negative (Normal) Ketones Negative (Normal) Glucose Negative (Normal) Protein 1+ (Abnormal) WBC Esterase Trace (Abnormal) Appearance Cloudy (Abnormal) Urine-Color Yellow (Normal) pH 6.0 (Normal) Range: 5.0-7.5 Specific [place] 1.014 (Normal) Range: 1.005-1.030 :39 MICROALBUMIN: CREATININE RATIO Comments: PATIENT NOT FASTINGPERFORMED BY: [employer] [facility] [id number] (36380) AND (28822) Microalb/Creat Ratio 34.2 {mg/g_creat} (Abnormal) Range: 0.0-30.0 Microalbumin, Urine 46.5 ug/mL (Abnormal) Range: 0.0-17.0 Creatinine, Urine 135.9 mg/dL (Normal) Range: 15.0-278.0 :39 METABOLIC PANEL, Comments: PATIENT NOT FASTINGPERFORMED BY: [employer] [facility] [id number] Information: [id number] COMPREHENSIVE (92030) ALT (SGPT) 14 [iU]/L (Normal) Range: 0-32 [...] Glucose, Serum 79 mg/dL (Normal) Range: 65-99 :37 Prothrombin Time w/INR Comments: [facility] [address]xkvjrtr[address] [place], [address] INR 2.5 (Normal) PROTIME 26.7 s (Abnormal) Range: 11.7-14.9 :55 CBC W/Diff, Auto - EPLAB Comments: At [facility] Out[facility] Medical Oncologypatients receive CBC w/auto Differential ONLY. Physicianwill place an order for a manual differential or Pathologistreview at his discretion. [facility]. [address] [place] [address] [address] DEMURRAGE WORKER: MOERO ZAMUDIO DO PH:[phone] Hospital [address]zeybphs7[address] [place], [place], [address] Absolute Lymph 1.30 {X10_3/uL} (Normal) Range: 0.83-4.51 [...] 4.2-5.4 WBC 5.8 K/mm3 (Normal) Range: 4.4-11.0 09-Bpk-099411:55 Prothrombin Time w/INR Comments: [facility] Hrcpnqttfc92[address] [place], [place], [address] INR 2.5 (Normal) PROTIME 27.3 s (Abnormal) Range: 11.7-14.9 0-Hxy-980734:31 Rapid Flu (40721 x 2) Influenza A Ag negative (Normal) 0-Huc-204211:25 CBC W/Diff, Auto - EPLAB Comments: At [facility] Outpatient [facility] Medical Oncologypatients receive CBC w/auto Differential ONLY. Physicianwill place an order for a manual differential or Pathologistreview at his discretion. [facility]. [address] [place] [address] [address] DEMURRAGE WORKER: OMERO ZAMUDIO DO PH:[phone] Hospital Edxoavhqyv2956 [address] [place], [address] Absolute Lymph 1.41 {X10_3/uL} (Normal) [...] 4.2-5.4 WBC 7.3 K/mm3 (Normal) Range: 4.4-11.0 5-Ilk-578854:25 Prothrombin Time w/INR Comments: [facility] Xbdjupszxm2515 [address] [place], [place], [address] INR 1.9 (Normal) PROTIME 22.2 s (Abnormal) Range: 11.7-14.9 74-Bwt-283319:15 CBC W/Diff, Auto - EPLAB Comments: At [facility] Out[facility] Medical Oncologypatients receive CBC w/auto Differential ONLY. Physicianwill place an order for a manual differential or Pathologistreview at his discretion. [facility]. [address] [place] [place] [address] DEMURRAGE WORKER: OMERO ZAMUDIO DO PH:[phone] Hospital Tdedhygekj5503 [address] [place], [place], [address] Absolute Lymph 1.34 {X10_3/uL} (Normal) Range: 0.83-4.51 [...] 4.2-5.4 WBC 6.2 K/mm3 (Normal) Range: 4.4-11.0 71-Mxb-031092:15 Prothrombin Time w/INR Comments: [facility] Dpaxlcxzbz40[address] [place], [place], [address] INR 2.2 (Normal) PROTIME 24.2 s (Abnormal) Range: 11.7-14.9 96-Nif-179134:08 Ferritin Comments: THIS IS STORED UNDER THE XTRA RACK FROM [facility] Rzaugbmyje9009 [place], [address] FERRITIN 49 ng/mL (Normal) Range: 8-252 93-Bpe-220628:08 Iron Comments: THIS IS STORED UNDER THE XTRA RACK FROM [facility] Gupapdgiri6052 [address] [place], [place], [address] IRON 42 ug/dL (Abnormal) Range: 50-170 42-Tnk-449965:08 Iron Binding Capacity,Total Comments: THIS IS STORED UNDER THE XTRA RACK FROM [facility] Dqaicxzoed9339 [address] [place], [place], [address] TIBC 299 ug/dL (Normal) Range: 250-450 06-Emt-797331:08 Prothrombin Time w/INR Comments: [facility] Tubvfbhhma18[address] [place], [place], [address] INR 2.2 (Normal) PROTIME 24.4 s (Abnormal) Range: 11.7-14.9 03-Ddh-616046:55 CBC W/Diff, Auto - EPLAB Comments: At [facility] Outpatient [facility] Medical Oncologypatients receive CBC w/auto Differential ONLY. Physicianwill place an order for a manual differential or Pathologistreview at his discretion. [facility] OUT[facility]IENT [facility]. [address] [place] [address] [address] DEMURRAGE WORKER: OMERO ZAMUDIO DO PH:[phone] Hospital Gmljjucgyv7782 [address] [place], [place], [address] Absolute Lymph 1.28 {X10_3/uL} (Normal) Range: 0.83-4.51 [...] 4.2-5.4 WBC 5.8 K/mm3 (Normal) Range: 4.4-11.0 03-Yja-555104:15 CBC W/Diff, Auto - EPLAB Comments: At [facility] Out[facility] Medical Oncologypatients receive CBC w/auto Differential ONLY. Physicianwill place an order for a manual differential or Pathologistreview at his discretion. [facility]. [address] [place] [address] [place] [address] DEMURRAGE WORKER: OMERO ZAMUDIO DO PH:[phone] Hospital Fvaphqlpgb7082 [address] [place], [address] Absolute Lymph 0.98 {X10_3/uL} (Normal) [...] 4.2-5.4 WBC 6.3 K/mm3 (Normal) Range: 4.4-11.0 70-Swj-813176:15 Comprehensive Metabolic Profil Comments: Serial Specimen #1, #2 or #3? [address] [place] [address] Jvogvbeztd8219 [address] [place], [place], [address] GAP 9 (Normal) Range: 5-15 CO2 23.0 [...] 7-18 GLU 105 mg/dL (Normal) Range: 70-110 22-Zfr-497485:15 LDH 194 U/L (Normal) Comments: Serial Specimen #1, #2 or #3? [address] [place] [address] Yirlozdvkl4855 [address] [place], [place], [address] Range: 84-246 83-Zrq-856064:15 Prothrombin Time w/INR Comments: [facility] [address] [place], [place], [address] INR 3.4 (Normal) PROTIME 34.0 s (Abnormal) Range: 11.7-14.9 71-Ylo-528711:15 Uric Acid Comments: Serial Specimen #1, #2 or #3? [facility] [address]bfer[address] [place], [address] URIC 7.1 mg/dL (Abnormal) Range: 2.6-6.0 7-Xpb-607166:41 Prothrombin Time w/INR Comments: [facility] Cop[address]airit[address] [place], [place], [address] INR 2.9 (Normal) PROTIME 30.4 s (Abnormal) Range: 11.7-14.9 7-Iqo-510473:22 CBC W/Diff, Auto - EPLAB Comments: At [facility] Outpatient [facility] Medical Oncologypatients receive CBC w/auto Differential ONLY. Physicianwill place an order for a manual differential or Pathologistreview at his discretion. [facility]IENT [facility]. [address] [address] [place] [address] DEMURRAGE WORKER: OMERO ZAMUDIO DO PH:[phone] Hospital Nvadiazklb6201 [address] [place], [place], [address] Absolute Lymph 1.01 {X10_3/uL} (Normal) Range: 0.83-4.51 [...] 4.2-5.4 WBC 6.5 K/mm3 (Normal) Range: 4.4-11.0 5-Tol-362954:22 Comprehensive Metabolic Profil Comments: Serial Specimen #1, #2 or #3? 1[facility] Xkebzudqhg2505 [address] [place], [place], [address] GAP 9 (Normal) Range: 5-15 CO2 23.0 [...] 126 mg/dLsuggests DIABETES MELLITUS per A.D.A. criteria. 3-Flf-977404:22 LDH 220 U/L (Normal) Comments: Serial Specimen #1, #2 or #3? 1[facility] Comiynnhnq0514 [place], [address] Range: 84-246 8-Ukw-850594:22 Uric Acid Comments: Serial Specimen #1, #2 or #3? 1[facility] [address]ij[address] [place], [place], [address] URIC 5.9 mg/dL (Normal) Range: 2.6-6.0 07-Ztn-906567:00 Prothrombin Time w/INR Comments: [facility] Otqtrqyxyj49[address] [place], [place], [address] INR 2.2 (Normal) PROTIME 24.1 s (Abnormal) Range: 11.7-14.9 26-Lqa-142141:10 Prothrombin Time w/INR Comments: [facility] Zjdynerdow4851 [address] [place], [place], [address] INR 2.4 (Normal) PROTIME 26.4 s (Abnormal) Range: 11.7-14.9 20-Vxt-953581:40 Prothrombin Time w/INR Comments: [facility] [address] [place], [place], [address] INR 2.4 (Normal) PROTIME 26.3 s (Abnormal) Range: 11.7-14.9 6-Plk-902277:00 CBC W/Diff, Auto - EPLAB Comments: At [facility] Outpatient [facility] Medical Oncologypatients receive CBC w/auto Differential ONLY. Physicianwill place an order for a manual differential or Pathologistreview at his discretion. [facility]IENT [facility]. [address] [place] [address] [place] [address] DEMURRAGE WORKER: OMERO ZAMUDIO DO PH:[phone] Hospital Pldjuvwlob1110 [address] [place], [place], [address] Absolute Lymph 1.45 {X10_3/uL} (Normal) Range: 0.83-4.51 [...] K/mm3 (Normal) Range: 4.4-11.0 :59 Magnesium Comments: [facility] [address] [place], [place], [address] MG 1.7 mg/dL (Abnormal) Range: 1.8-2.4 :59 Protein+Creatinine Ratio,Urine Comments: [facility] R[address] [place], [place], [address] PROT:CRE RATIO 250 {mg/g_CRE} (Abnormal) Range: 0-200 PROTEIN,UR.RAN. 46.8 mg/dL (Abnormal) UR CREAT 187.00 mg/dL (Normal) :59 PTH,INTACT Comments: [facility] [address] [place], [place], [address] PTH,Intact 81 pg/mL (Abnormal) Range: 14-72 2-Faq-972936:59 Renal Profile Comments: [facility] Qjxddzqpmz2957 [address] [place], [address] CO2 22.0 mmol/L (Normal) Range: 21.0-32.0 CL [...] 7-18 GLU 94 mg/dL (Normal) Range: 70-110 6-Kba-188026:59 Vitamin D,25 Hydroxy Comments: [facility] Oxvudcvvus5[address] [place], [address] Vitamin D 25-OH 39.3 ng/mL (Normal) Comments: Vitamin D 25(OH) Status Range Deficiency <20 ng/mL (50nmol/L) Insuffciency 20 - 30 ng/mL (50 - 75 nmol/L) Sufficiency 30 - 100 ng/mL (75 - 250 nmol/L) Toxicity >100 ng/mL (>250 nmol/L) 7-Wvr-308628:40 Lipid Profile Comments: PT TO DR PARRA, TSH, MICRO ALB CREA, UAC AND LIPD TO [facility] Mncpjthkvl9148 [place], [address] VLDL 29 mg/dL (Normal) Range: [...] 200-240 mg/dL Borderline >240 mg/dL High Risk 8-Vox-214854:40 Microalb:Creat Ratio,Random UR Comments: [facility] Gtrkvkddgg1464 [address] [place], [address] MALB:CREAT 14.5 {mg/g_CRE} (Normal) MICROALBUMIN,UR 14.8 mg/L (Normal) UR CREAT 102.00 mg/dL (Normal) 4-Jwi-490524:40 Prothrombin Time w/INR Comments: [facility] Agkwykkrqy2550 [facility] [place], [address] INR 2.3 (Normal) PROTIME 25.1 s (Abnormal) Range: 11.7-14.9 2-Ibq-872283:40 Thyroid Stim Hormone (TSH) Comments: PT TO DR PARRA, TSH, MICRO ALB CREA, UAC AND LIPD TO [facility] Udzlckohvg5[address] [place], [address] TSH 3.62 {uIU/mL} (Normal) Range: 0.358-3.74 1-Usv-827750:40 Urinalysis, Complete Comments: How was Urine Obtained? [facility] Ihebfxbsln[address], [address] MUCUS, URINE 0 SEEN {/hpf} [...] CLARITY Sl. Cloudy (Normal) COLOR Yellow (Normal) 39-Tiu-380625:15 CBC W/Diff, Auto - EPLAB Comments: At [facility] Out[facility] Medical Oncologypatients receive CBC w/auto Differential ONLY. Physicianwill place an order for a manual differential or Pathologistreview at his discretion. [facility] OUT[facility]IENT [facility]. [address] [address] [place] [address] DEMURRAGE WORKER: OMERO ZAMUDIO DO PH:[phone] Hospital Prufauhkmw0465 [address] [place], [place], [address] Absolute Lymph 1.10 {X10_3/uL} (Normal) Range: 0.83-4.51 [...] 4.2-5.4 WBC 5.7 K/mm3 (Normal) Range: 4.4-11.0 88-Pag-657990:15 Comprehensive Metabolic Profil Comments: Serial Specimen #1, #2 or #3? [address] [place] [address] Btdstuhcca90[address] [place], [place], [address] GAP 10 (Normal) Range: 5-15 CO2 21.0 [...] 7-18 GLU 74 mg/dL (Normal) Range: 70-110 93-Jek-195026:15 LDH 188 U/L (Normal) Comments: Serial Specimen #1, #2 or #3? [address] [place] [address] Vikgwqwrpv6372 [place], [address] Range: 84-246 24-Pda-941073:15 Prothrombin Time w/INR Comments: [facility] Eksvmbtnaz86[address] [place], [address] INR 2.1 (Normal) PROTIME 23.5 s (Abnormal) Range: 11.7-14.9 81-Cri-112532:15 Uric Acid Comments: Serial Specimen #1, #2 or #3? 1[facility] Bmszoenqov8[address] [place], [address] URIC 6.6 mg/dL (Abnormal) Range: 2.6-6.0 95-Lhv-472001:50 Basic Metabolic Profile (BMP) Comments: SPECIMEN OBTAINED FROM [facility] Vtkfsrlabb1397 [place], [address] GAP 8 (Normal) Range: 5-15 CO2 [...] 7-18 GLU 85 mg/dL (Normal) Range: 70-110 43-Aqk-101285:50 Prothrombin Time w/INR Comments: SPECIMEN OBTAINED FROM [facility] Pzhifdaudz9[address] [place], [address] INR 1.6 (Normal) PROTIME 19.4 s (Abnormal) Range: 11.7-14.9 1-Ium-578391:10 CBC W/Diff, Automated Comments: At [facility] Outpatient [facility] Medical Oncologypatients receive CBC w/auto Differential ONLY. Physicianwill place an order for a manual differential or Pathologistreview at his discretion. [facility] OUTPATIENT [facility]. [address] [place] [address] [place] [address] DEMURRAGE WORKER: OMERO ZAMUDIO DO PH:[phone] performed at:[facility] Laborato [address] [place], [place] [address] Absolute Lymph 0.81 {X10_3/ul} (Abnormal) Range: 0.83-4.51 [...] 4.2-5.4 WBC 4.9 K/mm3 (Normal) Range: 4.4-11.0 7-Suy-615830:10 Comprehensive Metabolic Profil Comments: Serial Specimen #1, #2 or #3? 1Test performed at:[facility] Wooloclxed[address] [address] ; handled by felix TIAN 9 (Normal) [...] Comments: Please note revised CREATININE reference range xoknnforw68/22/2015. BUN 43 mg/dL (Abnormal) Range: 7-18 GLU 79 mg/dL (Normal) Range: 70-110 5-Loe-214569:10 LDH 202 U/L (Normal) Comments: Serial Specimen #1, #2 or #3? 1Test performed at:[facility] Zjxaocmczg98[address] [address] Range: 84-246 7-Iwc-595219:10 Prothrombin Time w/INR Comments: Test performed at:[facility] Fryoysupmk3076 [address] [address] INR 2.3 (Normal) PROTIME 25.6 s (Abnormal) Range: 11.7-14.9 9-Yja-859446:10 Uric Acid Comments: Serial Specimen #1, #2 or #3? 1Test performed at:[facility] Bqslybqwgq9[address] [address] URIC 6.3 mg/dL (Abnormal) Range: 2.6-6.0 71-Qiu-015568:00 Prothrombin Time w/INR Comments: Test performed at:[facility] Yylhcxztsh7072 [address] [place] PR [id number] INR 2.5 (Normal) PROTIME 26.8 s (Abnormal) Range: 11.7-14.9 13-Pch-303983:37 CALCIFIDIOL (40510) VIT D 25 Comments: PATIENT NOT FASTINGPERFORMED BY: [facility]unedSierra Vista HospitalVytgjv1149 [facility] [id number] Vitamin D, 25-Hydroxy 40.0 ng/mL (Normal) Range: 30.0-100.0 Comments: Vitamin D deficiency has been defined by the [place] [facility] and an Endocrine Society practice guideline as alevel of serum 25-OH vitamin D less than 20 ng/mL (1,2).The Endocrine Society went on to further define vitamin Dinsufficiency as a level between 21 and 29 ng/mL (2).1. IOM ([place] of Medicine). 2010. Dietary reference intakes for calcium and D. [place]: The National Academies Press.2. Lluvia MF, Wade [place], Tanner VENEGAS, et al. Evaluation, treatment, and prevention of vitamin D deficiency: an Endocrine Society clinical practice guideline. JCEM. 2010; 96(7):1911-30. 78-Bfg-266009:37 TSH (33215) Comments: PATIENT NOT FASTINGPERFORMED BY: [facility]CoH[facility] HospitalUboukq7951 [facility] [id number] Information: [id number] TSH 3.550 {uIU/mL} (Normal) Range: 0.450-4.500 04-Gji-212033:40 Prothrombin Time w/INR Comments: Test performed at:[facility] Plglqfwkum5436 [address] [place] [id number] INR 2.4 (Normal) PROTIME 26.0 s (Abnormal) Range: 11.7-14.9 02-Mar-20159:00 Prothrombin Time w/INR Comments: Test performed at:[facility] [address] [place], [place] [address] INR 2.2 (Normal) PROTIME 24.3 s (Abnormal) Range: 11.7-14.9 13-Upn-424857:05 CBC W/Diff, Auto - EPLAB Comments: [facility] Out[facility] Medical Oncologypatients receive CBC w/auto Differential ONLY. Physicianwill place an order for a manual differential or Pathologistreview at his discretion. [facility] OUTPATIENT [facility]. [address] [address] [address] DEMURRAGE WORKER: OMERO ZAMUDIO DO PH:[phone] performed at:[facility] [address] [place] [address] Absolute Neut 3.7 {X10_3/uL} (Normal) Range: 2.0-7.7 [...] 4.2-5.4 WBC 5.4 K/mm3 (Normal) Range: 4.4-11.0 35-Fgb-[id number]:05 Prothrombin Time w/INR Comments: Test performed at:[facility] [address] [place], [place] [id number] INR 2.5 (Normal) PROTIME 27.0 s (Abnormal) Range: 11.7-14.9 23-Rle-710663:35 Prothrombin Time w/INR Comments: Test performed at:[facility] [address] [place] [address] INR 1.4 (Normal) PROTIME 17.4 s (Abnormal) Range: 11.7-14.9 62-Wzd-[id number]:51 CBC W/Diff, Auto - EPLAB Comments: At [facility] Outpatient [facility] Medical Oncologypatients receive CBC w/auto Differential ONLY. Physicianwill place an order for a manual differential or Pathologistreview at his discretion. [facility] OUTPATIENT [facility]. [address] [address] [address] DEMURRAGE WORKER: OMERO ZAMUDIO DO PH:[phone] performed at:[facility] [address] [place], [place] [address] Absolute Neut 4.0 {X10_3/uL} (Normal) Range: 2.0-7.7 [...] 4.2-5.4 WBC 5.6 K/mm3 (Normal) Range: 4.4-11.0 :51 Magnesium Comments: RENAL, VITD25, MG PTHIN AND URINCE TO GO TO DR. Dupont performed at:[facility] [address] [place] [address] MG 1.7 mg/dL (Abnormal) Range: 1.8-2.4 :51 Protein+Creatinine Ratio,Urine Comments: RENAL, VITD25, MG PTHIN AND URINCE TO GO TO DR. Dupont performed at:[facility] [address] [place] [address] PROT:CRE RATIO 304 {mg/g_CRE} (Abnormal) Range: 0-200 PROTEIN,UR.RAN. 48.2 mg/dL (Abnormal) UR CREAT 158.3 mg/dL (Normal) :51 Prothrombin Time w/INR Comments: Test performed at:[facility] [address] [place] [address] INR 1.1 (Normal) PROTIME 14.2 s (Normal) Range: 11.7-14.9 :51 PTH,INTACT Comments: Test performed at:[facility] [address] [place] [address] PTH,Intact 31 pg/mL (Normal) Range: 14-72 :51 Renal Profile Comments: RENAL, VITD25, MG PTHIN AND URINCE TO GO TO DR. Dupont performed at:[facility] [address] [place] [address] CO2 20.0 mmol/L (Abnormal) Range: 21.0-32.0 CL [...] 7-18 GLU 79 mg/dL (Normal) Range: 70-110 17-Khf-332026:51 Vitamin D,25 Hydroxy Comments: Test performed at:[facility] [address] [place] [address] Vitamin D 25-OH 32.1 ng/mL (Normal) Comments: Vitamin D 25(OH) Status Range Deficiency <20 ng/mL (50nmol/L) Insuffciency 20 - 30 ng/mL (50 - 75 nmol/L) Sufficiency 30 - 100 ng/mL (75 - 250 nmol/L) Toxicity >100 ng/mL (>250 nmol/L) 10-Xfk-737718:00 Prothrombin Time w/INR Comments: Test performed at:[facility] [address] [place], [place] [address] INR 2.5 (Normal) PROTIME 26.7 s (Abnormal) Range: 11.7-14.9 30-Hin-170833:54 Serum Creatinine AND GFR Comments: Test performed at:[facility] [address] [place] [address] CREAT,SERUM 2.6 mg/dL (Abnormal) Range: 0.6-1.0 57-Djs-348817:47 D-Dimer Quantitative (DVT/PE) Comments: Test performed at:[facility] [address] [place] [address] D-DIMER QUANT 2.05 {FEU/ug/m} (Abnormal) Range: 0.27-0.49 Comments: D-Dimer ELEVATED (>0.49): Additional studies and clinicalassessments are indicated to conclude diagnosis of:Deep Vein Thrombosis (DVT) or Pulmonary Embolism (PE)CRITICAL VALUE REPEATED AND VERIFIED. CALLED TO [facility]RBAN BACK'S OFFICE.01/14/15 1322 Kory Kent.RESULTS READ BACK BY SAME. 60-Ixw-341046:20 Prothrombin Time w/INR Comments: Test performed at:[facility] [address] [place], [place] [address] INR 2.6 (Normal) PROTIME 27.5 s (Abnormal) Range: 11.7-14.9 37-Yrx-506203:25 CBC W/Diff, Auto - EPLAB Comments: At [facility] Medical Oncologypatients receive CBC w/auto Differential ONLY. Paulino place an order for a manual differential or Pathologistreview at his discretion. [facility]. [address] [place] [address] [place] [address] DEMURRAGE WORKER: OMERO ZAMUDIO DO PH:[phone] performed at:[facility] Laborato [address] [place], [place] [address] Absolute Neut 3.2 {X10_3/uL} (Normal) Range: 2.0-7.7 [...] 4.2-5.4 WBC 4.5 K/mm3 (Normal) Range: 4.4-11.0 92-Slf-026105:00 CBC W/Diff, Auto - EPLAB Comments: At [facility] Medical Oncologypatients receive CBC w/auto Differential ONLY. Physicianwill place an order for a manual differential or Pathologistreview at his discretion. [facility]. [address] [place] [address] [place] [address] DEMURRAGE WORKER: OMERO ZAMUDIO DO PH:[phone] performed at:[facility] [address] [place], [place] [address] Absolute Neut 4.4 {X10_3/uL} (Normal) Range: 2.0-7.7 [...] 4.2-5.4 WBC 5.8 K/mm3 (Normal) Range: 4.4-11.0 20-Bls-364573:00 Prothrombin Time w/INR Comments: Test performed at:[facility] [address] [place], [place] [address] INR 2.8 (Normal) PROTIME 29.7 s (Abnormal) Range: 11.7-14.9 9-Qvj-742575:10 CBC W/Diff, Auto - EPLAB Only Comments: At [facility] Outpatient [facility] Medical Oncologypatients receive CBC w/auto Differential ONLY. Physicianwill place an order for a manual differential or Pathologistreview at his discretion. [facility]. [address] [place] [address] [place] [address] DEMURRAGE WORKER: OMERO ZAMUDIO DO PH:[phone] performed at:[facility] Laborato [address] [address] Absolute Neut 2.8 {X10_3/uL} (Normal) [...] 4.2-5.4 WBC 4.4 K/mm3 (Normal) Range: 4.4-11.0 10-Bil-353676:35 CBC W/Diff, Auto - EPLAB Comments: At [facility] Outpatient [facility] patientsreceive CBC w/auto Differential ONLY. Physician will placean order for a manual differential or Pathologist review athis discretion. [facility]. [address] [place] [address] [address] DEMURRAGE WORKER: OMERO ZAMUDIO DO PH:[phone] performed at:[facility] [address] [address] Absolute Neut 3.5 {X10_3/uL} (Normal) [...] 4.2-5.4 WBC 5.1 K/mm3 (Normal) Range: 4.4-11.0 24-Sud-568172:35 Comprehensive Metabolic Profil Comments: PLEASE SEND COPY OF LIPID, CMP,TSH TO DR PAULINOerial Specimen #1, #2 or #3? 1Test performed at:[facility] [address] [place], [place] [address] GAP 12 (Normal) Range: 5-15 CO2 19.0 [...] <126 mg/dLsuggests IMPAIRED HOMEOSTASIS per A.D.A. criteria. 39-Vuk-921276:35 LDH 222 U/L (Normal) Comments: PLEASE SEND COPY OF LIPID, CMP,TSH TO DR Prieto Specimen #1, #2 or #3? 1Test performed at:[facility] [address] [place] [address] Range: 87-241 :35 Lipid Profile Comments: PLEASE SEND COPY OF LIPID, CMP,TSH TO DR Prieto Specimen #1, #2 or #3? 1Test performed at:[facility] [address] [place] [address] VLDL 42 mg/dL (Abnormal) Range: 5-40 [...] :35 Prothrombin Time w/INR Comments: Test performed at:[facility] [address] [place] [address] INR 2.3 (Normal) PROTIME 25.4 s (Abnormal) Range: 11.7-14.9 19-Nfn-828614:35 Thyroid Stim Hormone (TSH) Comments: PLEASE SEND COPY OF LIPID, CMP,TSH TO DR Prieto Specimen #1, #2 or #3? 1Test performed at:[facility] [address] [place] [address] TSH 2.09 {uIU/mL} (Normal) Range: 0.358-3.74 16-Bza-628623:35 Uric Acid Comments: PLEASE SEND COPY OF LIPID, CMP,TSH TO DR Prieto Specimen #1, #2 or #3? 1Test performed at:[facility] [address] [place] [address] URIC 6.5 mg/dL (Abnormal) Range: 2.6-6.0 89-Dyy-113879:10 Prothrombin Time w/INR Comments: Test performed at:[facility] [address] [place] [address] INR 2.8 (Normal) PROTIME 29.0 s (Abnormal) Range: 11.7-14.9 3-Uoa-719626:35 Prothrombin Time w/INR Comments: Test performed at:[facility] [address] [place] [address] INR 2.9 (Normal) PROTIME 30.5 s (Abnormal) Range: 11.7-14.9 30-Nhh-031022:15 Prothrombin Time w/INR Comments: Test performed at:[facility] [address] [place] [address] INR 1.9 (Normal) PROTIME 21.4 s (Abnormal) Range: 11.7-14.9 78-Lry-322055:45 Prothrombin Time w/INR Comments: Test performed at:[facility] [address] [place] [address] INR 4.6 (Abnormal) Comments: RESULTS CALLED TO AMOR STANTON 10/22/14 Vilma Vidal.REPORT READ BACK BY SAME. PROTIME 42.9 s (Abnormal) Range: 11.7-14.9 74-Tah-028460:30 CBC W/Diff, Auto - EPLAB Comments: [facility] Outpatient [facility] patientsreceive CBC w/auto Differential ONLY. Physician will placean order for a manual differential or Pathologist review athis discretion. Only [facility]. [address] [place] [address] [place] [address] DEMURRAGE WORKER: OMERO ZAMUDIO DO PH:[phone] performed at:[facility] Labo l[address]od[address] [facility] [place] [address] Absolute Neut 3.9 {X10_3/uL} (Normal) [...] 4.2-5.4 WBC 5.8 K/mm3 (Normal) Range: 4.4-11.0 75-Kdf-450083:30 Magnesium Comments: Test performed at:[facility] [address] [facility] [place] [address] MG 1.6 mg/dL (Abnormal) Range: 1.8-2.4 54-Jwj-841839:30 Protein+Creatinine Ratio,Urine Comments: Test performed at:[facility] Vkvhygcltw[address] [facility] [place] [address] PROT:CRE RATIO 498 {mg/g_CRE} (Abnormal) Range: 0-200 PROTEIN,UR.RAN. 67.7 mg/dL (Abnormal) UR CREAT 135.7 mg/dL (Normal) 97-Ods-801545:30 Prothrombin Time w/INR Comments: Test performed at:[facility] [address] [address] INR 2.9 (Normal) PROTIME 30.0 s (Abnormal) Range: 11.7-14.9 92-Cmr-456176:30 PTH,INTACT Comments: Test performed at:[facility] [address] [place] [address] PTH,Intact 63 pg/mL (Normal) Range: 14-72 49-Idd-601768:30 Renal Profile Comments: Test performed at:[facility] [address] [address] CO2 20.0 mmol/L (Abnormal) Range: 21.0-32.0 [...] 7-18 GLU 83 mg/dL (Normal) Range: 70-110 16-Zlz-761441:30 Vitamin D,25 Hydroxy Comments: Test performed at:[facility] [address] [place] [address] Vitamin D 25-OH 36.5 ng/mL (Normal) Comments: Vitamin D 25(OH) Status Range Deficiency <20 ng/mL (50nmol/L) Insuffciency 20 - 30 ng/mL (50 - 75 nmol/L) Sufficiency 30 - 100 ng/mL (75 - 250 nmol/L) Toxicity >100 ng/mL (>250 nmol/L) 68-Fau-515151:27 Prothrombin Time w/INR Comments: Test performed at:[facility] [address] [place], [place] [address] INR 2.8 (Normal) PROTIME 29.0 s (Abnormal) Range: 11.7-14.9 90-Efm-990213:55 Prothrombin Time w/INR Comments: Test performed at:[facility] [address] [place] [address] INR 2.4 (Normal) PROTIME 26.4 s (Abnormal) Range: 11.7-14.9 47-Dga-498681:05 CBC W/Diff, Auto - EPLAB Comments: At [facility] Outpatient [facility], [facility] Care patientsreceive CBC w/auto Differential ONLY. Physician will placean order for a manual differential or Pathologist review athis discretion. [facility] OUTPATIENT [facility]. [address] [place] [address] [place] [address] DEMURRAGE WORKER: OMERO ZAMUDIO DO PH:[phone] performed at:[facility] [address] [place], [place] [address] Absolute Neut 3.2 {X10_3/uL} (Normal) Range: 2.0-7.7 [...] 4.2-5.4 WBC 4.9 K/mm3 (Normal) Range: 4.4-11.0 37-Yiw-506774:05 Prothrombin Time w/INR Comments: Test performed at:[facility] [address] [place] [address] INR 1.7 (Normal) PROTIME 20.2 s (Abnormal) Range: 11.7-14.9 23-Umu-799769:50 Prothrombin Time w/INR Comments: Test performed at:[facility] [address] [address] INR 2.6 (Normal) PROTIME 28.1 s (Abnormal) Range: 11.7-14.9 49-Nvs-640670:25 FECAL OCCULT HGB ASSAY- tubes sent home (93157) FECAL OCCULT HGB ASSAY, QUAL, 1-3 SIMULTANEOU negative (Normal) 59-Uwq-560657:07 CALCIFIDIOL (63103) VIT D 25 Comments: PATIENT WAS FASTINGPERFORMED BY: [employer] [place] [id number] Vitamin D, 25-Hydroxy 37.0 ng/mL (Normal) Range: 30.0-100.0 Comments: Vitamin D deficiency has been defined by the [place] ofMedicine and an Endocrine Society practice guideline as alevel of serum 25-OH vitamin D less than 20 ng/mL (1,2).The Endocrine Society went on to further define vitamin Dinsufficiency as a level between 21 and 29 ng/mL (2).1. IOM ([place] of Medicine). 2010. Dietary reference intakes for calcium and D. [place]: The National Academies Press.2. Lluvia MF, Wade NC, Tanner VENEGAS, et al. Evaluation, treatment, and prevention of vitamin D deficiency: an Endocrine Society clinical practice guideline. JCEM. 2010; 96(7):1911-30. 10-Mcg-419857:07 VITAMIN B-12 (CYANOCOBALAMIN) Comments: PATIENT WAS FASTINGPERFORMED BY: [employer] [address] Road[place] [id number] ([address]) Vitamin B12 637 pg/mL (Normal) Range: 211-946 :07 TSH (26386) Comments: PATIENT WAS FASTINGPERFORMED BY: [employer] Pyavjp3167 [facility] [id number] TSH 0.778 {uIU/mL} (Normal) Range: 0.450-4.500 :07 METABOLIC PANEL, COMPREHENSIVE Comments: PATIENT WAS FASTINGPERFORMED BY: [employer] Kmtwpf9386 [facility] [id number] (35040) ALT (SGPT) 31 [iU]/L (Normal) Range: 0-32 [...] mg/dL (Normal) Range: 65-99 :07 LIPID PANEL (77906) Comments: PATIENT WAS FASTINGPERFORMED BY: [employer] Qsseka9906 [facility] [id number] LDL/HDL Ratio 0.9 {ratio_units} (Normal) Range: 0.0-3.2 [...] Cholesterol, Total 193 mg/dL (Normal) Range: 100-199 51-Ums-060923:07 CBC W/AUTO DIFF WBC Comments: PATIENT WAS FASTINGPERFORMED BY: LabCoHudson [facility] Meadowview HospitalBznyuv0395 [facility] [id number] Information: [id number] (32897) Immature Grans (Abs) 0.0 {x10E3/uL} (Normal) Range: [...] (Normal) Range: 3.4-10.8 :55 ECBCD Comments: At [facility] Outpatient [facility] Care patientsreceive CBC w/auto Differential ONLY. Physician will placean order for a manual differential or Pathologist review athis discretion.[facility].[address] [place], [place] [address]IDO DIRECTOR: OMERO ZAMUDIO DO PH:[phone] ANC 4.0 {X10_3/uL} (Normal) Range: 2.0-7.7 B% [...] 41.6/INR 3.[address] DELEON OFFICE X4 PARISA. WILL TRY AGAIN INR 3.0 (Normal) PTP 30.9 s (Abnormal) Range: 11.7-14.9 :45 IINR 3.70 (Abnormal) Comments: Critical Value> 3.5 :45 IPTF 41.6 {SEC} (Abnormal) Range: 11.9-14.4 Comments: Reference Range11.9 - 14.4 :45 ECBCD Comments: At [facility] Outpatient [facility] Care patientsreceive CBC w/auto Differential ONLY. Physician will placean order for a manual differential or Pathologist review athis discretion.[facility].[address] [place], [place] [address]BUF DIRECTOR: OMERO ZAMUDIO DO PH:[phone] ANC 5.0 {X10_3/uL} (Normal) Range: 2.0-7.7 B% [...] (Normal) Range: 4.4-11.0 :55 ECBCD Comments: At [facility] Outpatient [facility] Care patientsreceive CBC w/auto Differential ONLY. Physician will placean order for a manual differential or Pathologist review prem Ayala [facility].[address] [place] [address]WSG DIRECTOR: OMERO ZAMUDIO DO PH:[phone] ANC 4.0 {X10_3/uL} (Normal) Range: 2.0-7.7 B% [...] (Normal) PTP 29.8 s (Abnormal) Range: 11.7-14.9 45-Irp-733636:12 CBCD ALC 0.77 {X10_3/ul} (Abnormal) Range: 0.83-4.51 [...] 4.2-5.4 WBC 6.8 K/mm3 (Normal) Range: 4.4-11.0 10-Fgu-214446:12 CMP GAP 7 (Normal) Range: 5-15 CO2 [...] (Abnormal) Range: 11.7-14.9 :55 ECBCD Comments: At [facility] Outpatient [facility] patientsreceive CBC w/auto Differential ONLY. Physician will placean order for a manual differential or Pathologist review athis discretion.[facility].[address] [place] [address]ZKB DIRECTOR: OMERO ZAMUDIO DO PH:[phone] ANC 3.7 {X10_3/uL} (Normal) Range: 2.0-7.7 B% [...] (Normal) PTP 21.4 s (Abnormal) Range: 11.7-14.9 :30 ECBCD Comments: At [facility] Outpatient [facility], [facility] Cancer Care patientsreceive CBC w/auto Differential ONLY. Physician will placean order for a manual differential or Pathologist review athis gilda.[facility].[address] [place], [place] [address]FXD DIRECTOR: OMERO ZAMUDIO DO PH:[phone] ANC 2.6 {X10_3/uL} (Normal) Range: 2.0-7.7 B% [...] (Normal) PTP 19.5 s (Abnormal) Range: 11.7-14.9 31-Mnd-186480:05 CMP Comments: DR. PARRA ORDERED CBCD, CMP, [...] 7-18 GLU 81 mg/dL (Normal) Range: 70-110 53-Qtv-383285:05 ECBCD ANC 3.0 {X10_3/uL} (Normal) Range: 2.0-7.7 [...] ng/mL (>250 nmol/L) :33 ECBCD Comments: At [facility] Outpatient [facility], Dr Guerra patients receiveCBC w/auto Differential ONLY. He will place an order for amanual differential or Pathologist review at his discretion.[facility] OUTPATIENT [facility].[address] [place], [place] [address]BY DIRECTOR: OMERO ZAMUDIO DO PH:[phone] ANC 4.4 {X10_3/uL} (Normal) Range: 2.0-7.7 B% [...] Comments: Please note revised PROTIME reference range tiesevxlw64/14/15. :30 CUUR URC See Note (Normal) Comments: [...] UCLAR Sl. Cloudy (Normal) UCOL Yellow (Normal) 81-Sky-180901:31 PT INR 2.6 (Normal) PTP 26.0 s (Abnormal) Range: 11.9-14.4 1-Wqo-548078:26 UNILAT LT DIAG DIGITAL & CAD Radiology [...] will be sent to the patient by thecility within 30 days. Approximately 10% of breast cancers are not detected by mammography. Anormal mammogram should not delay biopsy of a cl inically suspiciousabnormality. Signed:Vishal Mendez M.D.March 08, 2013 at 2:10:47 PM [id number] Signed GP/GP If you are the referring physician and would like to consult with t heradiologist who provided this interpretation, please contact Varun Jeronimo at [phone]. If this radiologist is unavailable, youwill be directed to another radiologist to assist. If you a re a patient with a question regarding this report, pleasecontactyour referring physician directly. Professional Interpretation Provided By: [employer] ([employer]), Phone , These docu ments contain legally [...] 03/08/13 1415 Sign by: Vishal Mendez MD 0-Qni-860400:01 BREAST UNILATERAL Radiology See Note Comments: PROCEDURE: [...] Mendez M.D.March 08, 2013 at 2:13:37 PM [id number] Signed GP/GP If you are the referring physician and would like to consult with theradiologist who provided this interpretation, please contact Jo stack M.D. at [phone]. If this radiologist is unavailable, youwill be directed to another radiologist to assist. If you are a patient with a question regarding this report, pleasecontactyour referri ng physician directly. Professional Interpretation Provided By: [employer] ([employer]), Phone , These documents contain legally protected [...] destructionofthese documents. Dictated on 03/08/13 1413 by Shari Mendez MDribed on 03/08/13 1417 by ITS IMPORTSign by Vishal Mendez MD on 03/08/13 1418 Sign by: Vishal Mendez MD 2-Wsh-582277:02 BILAT SCRN DIGITAL & CAD Radiology Report [...] will be [facility] the patient [facility]in [facility]. Approximately 10% of breast cancers are not detected by mammography. Anormal mammogram sh ould not delay biopsy of a clinically suspiciousabnormality. Signed:Vishal Mendez M.D.March 01, 2013 at 12:50:31 PM [id number] Signed GP/GP If you are the referring physician an d would like to consult with theradiologist who provided this interpretation, please contact Varun Jeronimo at [phone]. If this radiologist is unavailable, youwill be directed to another r adiologist to assist. If you are a patient with a question regarding this report, pleasecontactyour referring physician directly. Professional Interpretation Provided By: [employer] ([employer]), Phone , These documents contain legally protected [...] destructionofthese documents. Dictated on 03/01/13 1250 by Andrea MARLOW,ErenriTuturanscribed on 03/01/13 1256 by ITS IMPORTSign by Vishal Mendez MD on 03/01/13 12 58 Sign by: Vishal Mendez MD 82-Zmj-729887:38 FECAL OCCULT- Tubes sent home (08099) FECAL OCCULT HGB ASSAY, QUAL, 1-3 SIMULTANEOU negative (Normal) 00-Tqg-736603:33 CHEST PA AND LATERAL Radiology Report See [...] Chandler M.D.November 13, 2012 at 7:05:21 PM [id number] Signed SH/SH If you are the referring physician and would like to consult with theradiologist who provided this interpretation, please contact Varun Garcia at [phone]. If this radiologist is unavailable, youemekallbe directed to another radiologist to assist. If you are a patient with a q uestion regarding this report, pleasecontactyour referring physician directly. Professional Interpretation Provided By: [employer], Phone , These documents contain legally protected [...] return or destructionofthese documents. Dictated on 11/13/12 09 by Marshall Chandler MDTranscribed on 11/13/121906 by ITS IMPORTSign by Marshall Chandler MD on 11/13/121907 Sign by: Marshall Chandler MD 84-Spb-026066:40 ANURAG CULTURE-OTHER (56729) Comments: PATIENT NOT FASTINGPERFORMED BY: J[facility]ZZUNC [facility] [id number] Information: SRC: THROAT Result 1 RRF (Normal) Comments: Routine respiratory raegan Upper Respiratory Culture Final report (Normal) :48 Rapid Strep Test, Office (47468) Rapid Strep Test, Office Negative (Normal) 04-Apr-20128:05 Urinalysis, Office (06517) UA - BILIRUBIN Negative (Normal) UA - BLOOD Non Hemolyzed Moderate (Normal) UA - GLUCOSE Negative (Normal) UA - KETONES Negative mg/dL (Normal) UA - LEUKOCYTE ESTERASE Large (Normal) UA - NITRITE Negative (Normal) UA - PH 6.0 (Normal) UA - PROTEIN 300 mg/dL (Normal) UA - SPECIFIC GRAVITY 1.025 (Normal) URINE UROBILINGN TYSON TIMED Normal mg/dL (Normal) 85-Gpv-364530:40 PT (PROTHROMBIN TIME) Comments: PATIENT NOT FASTINGPERFORMED BY: JANZZUNC Health [id number] Information: [id number] (29272) Prothrombin Time 13.4 {sec} (Abnormal) Range: 8.7-11.5 [...] ITS IMPORTSign by Ezequiel Bradley MD on 06/14/11639 Sign by: Ezequiel Bradley MD :05 CBCD,SMEAR [...] 64.1 mg/L Comments: PATIENT WAS FASTINGPERFORMED BY: [employer] Mqsukx6481 [address] [facility] [id number] 1112:16 Protein, Quant (Abnormal) Range: 0.0-4.9 13-Rfp-278893:16 CBC With Differential/Platelet Comments: PATIENT WAS FASTINGPERFORMED BY: StayTunedHudson County Meadowview HospitalYddsop5871 [address] [facility] [id number] Immature Grans (Abs) 0.0 {x10E3/uL} (Normal) Range: [...] 3.80-5.10 WBC 5.3 {x10E3/uL} (Normal) Range: 4.0-10.5 55-Ybc-794135:16 Comp. Metabolic Panel (14) Comments: PATIENT WAS FASTINGPERFORMED BY: LabCoHudson County Meadowview HospitalBdyacs2272 [facility] [id number] ALT (SGPT) 12 [iU]/L (Normal) Range: 0-40 [...] 341 [iU]/L Comments: PATIENT WAS FASTINGPERFORMED BY: [employer] Pvymeu4333 [facility] [id number] :16 (Abnormal) Range: 0-214 53-Inj-435882:16 LDL Cholesterol (Direct) Comments: PATIENT WAS FASTINGPERFORMED BY: [employer] [facility] [id number] LDL Chol. (Direct) 80 mg/dL (Normal) Range: 0-99 Sedimentation 30 mm/h (Normal) Comments: PATIENT WAS FASTINGPERFORMED BY: [employer] [facility] [id number] 2:16 Rate-Westergren Range: 0-56 Written Authorization WAR (Normal) Comments: PATIENT WAS FASTINGPERFORMED BY: [address] [id number] 2:16 Comments: Written Authorization Received.Authorization received from original requisition [id number] by Matthew Moore [place] 9.2 mg/dL (Normal) Range: 8.5-10.1 :25 [place] 4804 5.5 mg/dL (Normal) Range: 4.5-5.6 :25 Comments: Performed at: [address] [id number] Director: Silke Mccrary MD, Phone: [phone] 88-Cxa-481912:16 PT (PROTHROMBIN TIME) Comments: PATIENT NOT FASTINGPERFORMED BY: [address] [id number] Information: [id number] (48387) Prothrombin Time 27.6 {sec} (Abnormal) Range: 8.7-11.5 INR 2.6 (Abnormal) Range: 0.8-1.2 Comments: Reference interval is for non-anticoagulated patients. . Suggested INR therapeutic range for Vitamin K anta gonist therapy: Standard Dose (moderate intensity therapeutic range): 2.0 - 3.0 Higher intensity therapeutic range 2.5 - 3.5 74-Znw-163670:15 COMP METABOLIC GAP 7 (Normal) Range: 5-15 [...] 7-18 GLU 88 mg/dL (Normal) Range: 70-110 00-Wry-11048:00 BRAIN W/WO CONTRAST Radiology Report See Note [...] diffusion restriction tosuggest acute infarction Dictated on 03/17/111621 by ELLIOTT MCKENNA MDTranscribed on 03/17/112047 by ITS IMPORTSign by ELLIOTT VARMA MD on 03/17/112048 Sign by: ELLIOTT MCKENNA MD :03 PT (Prothrobim Time) Comments: PATIENT NOT FASTINGPERFORMED BY: [facility] [id number] [place]abel [place] [id number] Information: [id number] ([id number]) Prothrombin Time 12.2 {sec} (Abnormal) Range: 8.7-11.5 INR 1.2 (Normal) Range: 0.8-1.2 Comments: Reference interval is for non-anticoagulated patients. . Suggested INR therapeutic range for Vitamin K anta gonist therapy: Standard Dose (moderate intensity therapeutic range): 2.0 - 3.0 Higher intensity therapeutic range 2.5 - 3.5 :55 DEXA BONE DENSITY STUDY (HP) Radiology Report [...] Vishal Mendez MD :51 Vitamin D Hydroxy ([id number]) Comments: PATIENT WAS FASTINGPERFORMED BY: [employer]6370 [address] [place] [id number] Vitamin D, 25-Hydroxy 35.7 ng/mL (Normal) Range: 32.0-100.0 Comments: Recent studies consider the lower limit of 32.0 ng/mL to be athreshold for optimal health.Sameer KRISHNA. J Nutr. 2004;135(2):317-22. :51 MICROALBUMIN: CREATININE RATIO Comments: PATIENT WAS FASTINGPERFORMED BY: [employer] Qhlpux0198 [place]bl[address] [place] [id number] ([id number]) AND (61525) Creatinine, Urine 205.5 mg/dL (Normal) Range: 15.0-278.0 Microalb/Creat Ratio 6.2 {mg/g_creat} (Normal) Range: 0.0-30.0 Microalbumin, Urine 12.8 ug/mL (Normal) Range: 0.0-17.0 :51 METABOLIC PANEL, COMPREHENSIVE Comments: PATIENT WAS FASTINGPERFORMED BY: [employer]lin6370 [facility] [id number] (99168) Alkaline Phosphatase, S 54 [iU]/L (Normal) Range: [...] Range: 65-99 :51 CBC WITH MANUAL DIFF (16862) Comments: PATIENT WAS FASTINGPERFORMED BY: StayTunedHudson County Meadowview HospitalKputbv0160 [facility] [id number] Baso (Absolute) 0.0 {x10E3/uL} (Normal) Range: 0.0-0.2 [...] 5.0 {x10E3/uL} (Normal) Range: 4.0-10.5 :51 TSH (56437) Comments: PATIENT WAS FASTINGPERFORMED BY: [facility] MonolithicsCoHudson County Meadowview HospitalHejlpm9762 [facility] [id number] TSH 1.320 {uIU/mL} (Normal) Range: 0.450-4.500 :51 LIPID PANEL (44707) Comments: PATIENT WAS FASTINGPERFORMED BY: [facility] MonolithicsCoHudson County Meadowview HospitalEajrcb8381 [facility] [id number] HDL Cholesterol 51 mg/dL (Normal) Comments: According to ATP-III Guidelines, HDL-C >59 mg/dL is considered anegative risk factor for CHD. LDL Cholesterol Calc 60 mg/dL (Normal) Range: 0-99 LDL/HDL Ratio 1.2 {ratio_units} (Normal) Range: 0.0-3.2 VLDL Cholesterol Richard 32 mg/dL (Normal) Range: 5-40 Cholesterol, Total 143 mg/dL (Normal) Range: 100-199 Triglycerides 161 mg/dL (Abnormal) Range: 0-149 66-Vze-749593:23 PT (Prothrobim Time) (57943) Comments: INR; PATIENT NOT FASTINGPERFORMED BY: Sierra MonolithicsErin V[place] 1562270 [facility] [id number] Prothrombin Time 28.6 {sec} (Abnormal) Range: 8.7-11.5 INR 2.7 (Abnormal) Range: 0.8-1.2 Comments: Reference interval is for non-anticoagulated patients. . Suggested INR therapeutic range for Vitamin K anta gonist therapy: Standard Dose (moderate intensity therapeutic range): 2.0 - 3.0 Higher intensity therapeutic range 2.5 - 3.5 51-Rjc-730289:30 PT (PROTHROMBIN TIME) Comments: PATIENT NOT FASTINGPERFORMED BY: [address] [id number] Information: [id number] (60005) Prothrombin Time 19.9 {sec} (Abnormal) Range: 8.7-11.5 INR 1.9 (Abnormal) Range: 0.8-1.2 Comments: Reference interval is for non-anticoagulated patients. . Suggested INR therapeutic range for Vitamin K anta gonist therapy: Standard Dose (moderate intensity therapeutic range): 2.0 - 3.0 Higher intensity therapeutic range 2.5 - 3.5 71-Ncq-842398:19 Prothrombin Time (PT) Comments: PERFORMED BY: [address] [id number] Prothrombin Time 26.5 {sec} (Abnormal) Range: 8.7-11.5 INR 2.5 (Abnormal) Range: 0.8-1.2 Comments: Reference interval is for non-anticoagulated patients. . Suggested INR therapeutic range for Vitamin K anta gonist therapy: Standard Dose (moderate intensity therapeutic range): 2.0 - 3.0 Higher intensity therapeutic range 2.5 - 3.5 :22 Prothrombin Time (PT) Comments: PERFORMED BY: [facility]6370 [facility] [id number] Prothrombin Time 12.9 {sec} (Abnormal) Range: 8.7-11.5 INR 1.2 (Normal) Range: 0.8-1.2 Comments: Reference interval is for non-anticoagulated patients. . Suggested INR therapeutic range for Vitamin K anta gonist therapy: Standard Dose (moderate intensity therapeutic range): 2.0 - 3.0 Higher intensity therapeutic range 2.5 - 3.5 :28 Prothrombin Time (PT) Comments: PERFORMED BY: [facility]6370 [facility] [id number] Prothrombin Time 13.8 {sec} (Abnormal) Range: 8.7-11.5 INR 1.3 (Abnormal) Range: 0.8-1.2 Comments: Reference interval is for non-anticoagulated patients. . Suggested INR therapeutic range for Vitamin K anta gonist therapy: Standard Dose (moderate intensity therapeutic range): 2.0 - 3.0 Higher intensity therapeutic range 2.5 - 3.5 58-Tec-609033:45 Prothrombin Time (PT) Comments: PERFORMED BY: [facility]6370 [facility] [id number] Prothrombin Time 17.9 {sec} (Abnormal) Range: 8.7-11.5 INR 1.7 (Abnormal) Range: 0.8-1.2 Comments: Reference interval is for non-anticoagulated patients. . Suggested INR therapeutic range for Vitamin K anta gonist therapy: Standard Dose (moderate intensity therapeutic range): 2.0 - 3.0 Higher intensity therapeutic range 2.5 - 3.5 71-Dzp-67228:00 UPPER EXT/NO JT/W/O Radiology Report See Note (Normal) Comments: CLINICAL:73 year old female with a bulge in the deltoid area. No known injury.Painful when reaching up. MRI UPPER EXTREMITY LEFT HUMERUS TECHNIQUE:Standardized fat and water weighted pulse sequences we re obtained in [id number] planes. A skin marker was placed in [...] on 07/12/10 1333 Sign by: Brayden Gerardo 39-Tmp-76693:00 HIP, MIN 2 VIEWS Radiology Report See Note (Normal) Comments: CLINICAL:Pain. X-RAY EXAMINATION: RIGHT HIP TECHNIQUE:Two views of the hip. COMPARISON:None. FINDINGS:Normal femoral head, neck, intertrochanteric region and visualizedproximalfemur. Normal acetabulum. There is mild articular joint space narrowing. Normal visualized superior and inferior pubic rami and ischialtuberosities. Normal visualized soft tissue structures of the hip. IMPRESSION:Mild degenerati ve disease. Dictated on 07/09/10 1236 by Mukund AguileraTranscribed on 07/09/10 1236 by Jazmin TOUSSAINT by Mukund Aguilera on 07/12/10 0911 Sign by: Mukund Aguilera :00 L/S SPINE,MIN 4 VIEWS Radiology Report See Note (Normal) Comments: CLINICAL:Pain. X-RAY EXAMINATION: LUMBAR SPINE TECHNIQUE:Five views (AP, Lateral, oblique and coned down lumbosacral) of theformerly [facility]. COMPARISON:None. FINDINGS:There is generalized osteopenia. The re is no acute fracture ordislocation. There is normal alignment and lordosis. There iscalcification of the aorta and iliac arteries. There is mild narrowingatL5 -- S1. IMPRESSION:Osteopenia and dege nerative disease, no fracture. Left lower quadrant ostomy noted. Dictated on 07/09/10 123 by Mukund AguileraTranscribed [...] AguileraTranscribed on 07/09/10 123 by Jazmin TOUSSAINT Russe on 07/12/10910 Sign by: Mukund Aguilera 0-Ocs-692111:33 Prothrombin Time (PT) Comments: PERFORMED BY: [facility] Pifjqb1345 [facility] [id number] Prothrombin Time 24.6 {sec} (Abnormal) Range: 8.7-11.5 INR 2.3 (Abnormal) Range: 0.8-1.2 Comments: Reference interval is for non-anticoagulated patients. . Suggested INR therapeutic range for Vitamin K anta gonist therapy: Standard Dose (moderate intensity therapeutic range): 2.0 - 3.0 Higher intensity therapeutic range 2.5 - 3.5 29-Mft-992436:36 Prothrombin Time (PT) Comments: PERFORMED BY: [employer] Ruhgwu0684 [facility] [id number] Prothrombin Time 34.1 {sec} (Abnormal) Range: 8.7-11.5 INR 3.2 (Abnormal) Range: 0.8-1.2 Comments: Reference interval is for non-anticoagulated patients..Suggested INR therapeutic range for Vitamin Kantagonist therapy:Standard Dose (moderate intensitytherapeutic range): 2.0 - 3.0Higher intensity therapeutic range 2.5 - 3.5 0-Gdq-408818:03 Prothrombin Time (PT) Comments: PERFORMED BY: [employer] Alfttj2207 [facility] [id number] Prothrombin Time 29.1 {sec} (Abnormal) Range: 8.7-11.5 INR 2.7 (Abnormal) Range: 0.8-1.2 Comments: Reference interval is for non-anticoagulated patients..Suggested INR therapeutic range for Vitamin Kantagonist therapy:Standard Dose (moderate intensitytherapeutic range): 2.0 - 3.0Higher intensity therapeutic range 2.5 - 3.5 23-Zzq-915376:59 Prothrombin Time (PT) Comments: PERFORMED BY: StayTunedHudson County Meadowview HospitalOvrgiv1530 [facility] [id number] INR 1.8 (Abnormal) Range: 0.8-1.2 Comments: Reference interval is for non-anticoagulated patients..Suggested INR therapeutic range for Vitamin Kantagonist therapy:Standard Dose (moderate intensitytherapeutic range): 2.0 - 3.0Higher intensity therapeutic range 2.5 - 3.5 Prothrombin Time 18.9 {sec} Range: 8.7-11.5 (Abnormal) 30-Mar-2010 Triiodothyronine,Free, 2.3 pg/mL (Normal) Comments: PERFORMED BY: StayTunedHudson County Meadowview HospitalHxvjqb8889 [facility] [id number] 10:59 Serum Range: 2.0-4.4 49-Qsa-736698:59 TSH+Free T4 Comments: PERFORMED BY: [facility]6370 [facility] [id number] T4,Free(Direct) 1.31 ng/dL (Normal) Range: 0.82-1.77 TSH 2.940 {uIU/mL} (Normal) Range: 0.450-4.500 11-Iyx-076214:04 Prothrombin Time (PT) Comments: PERFORMED BY: NUVIA [facility]6370 [facility] [id number] Prothrombin Time 15.6 {sec} (Abnormal) Range: 8.7-11.5 INR 1.5 (Abnormal) Range: 0.8-1.2 Comments: Reference interval is for non-anticoagulated patients..Suggested INR therapeutic range for Vitamin Kantagonist therapy:Standard Dose (moderate intensitytherapeutic range): 2.0 - 3.0Higher intensity therapeutic range 2.5 - 3.5 :38 Prothrombin Time (PT) Comments: PERFORMED BY: [facility]6370 [facility] [id number] Prothrombin Time 20.2 {sec} (Abnormal) Range: 8.7-11.5 INR 2.0 (Abnormal) Range: 0.8-1.2 Comments: Reference interval is for non-anticoagulated patients..Suggested INR therapeutic range for Vitamin Kantagonist therapy:Standard Dose (moderate intensitytherapeutic range): 2.0 - 3.0Higher intensity therapeutic range 2.5 - 3.5 8-Yfy-799312:03 Microscopic Examination Comments: PATIENT WAS FASTINGPERFORMED BY: NUVIA [facility]6370 [facility] [id number] Bacteria None seen (Normal) Epithelial Cells (non renal) 0-10 {/hpf} (Normal) Range: 0 - 10 Mucus Threads Present (Normal) RBC 11-30 {/hpf} (Abnormal) Range: 0 - 3 WBC >30 {/hpf} (Abnormal) Range: 0 - 5 :03 NMR LipoProfile Comments: PATIENT WAS FASTINGPERFORMED BY: [employer] Kwk9499 Ambrosio MonetUNC Health [facility] [id number] BY: NUVIA [place] 0339070 [facility] [id number] Information: [id number] HDL Size 8.8 nm (Abnormal) Comments: Small [...] AND HDL PARTICLES Percentile in Reference [facility]-P (total) High 75th 50th 25th Low>34.9 34.9 30.5 26.7 <26.7.Small LDL-P Low 25th 50th 75th High<117 117 527 839 >83 9.LDL Size <-Large (Pattern A)-> <-Small (Pattern B)->23.0 20.6 20.5 19.0 INSULIN RESISTANCE / DIABETES RISK M BRANDAN<--Insulin Sensitive Insulin Resistant-->Percentile in Reference PopulationLarge VLDL-P [...] (Normal) Comments: PATIENT WAS FASTINGPERFORMED BY: Ana [employer] Xjn5428 [facility] [id number] BY: NUVIA Diaz70 [facility] [id number] :03 Comments: Written Authorization Received.Authorization received from TEMI MAYNARD [id number] by Sen Rose 7-Wbl-918302:32 Prothrombin Time (PT) Comments: PERFORMED BY: NUVIA Mcintosh6370 [facility] [id number] Prothrombin Time 26.6 {sec} (Abnormal) Range: 8.7-11.5 INR 2.7 (Abnormal) Range: 0.8-1.2 Comments: Reference interval is for non-anticoagulated patients..Suggested INR therapeutic range for Vitamin Kantagonist therapy:Standard Dose (moderate intensitytherapeutic range): 2.0 - 3.0Higher intensity therapeutic range 2.5 - 3.5 29-Pff-068955:40 Prothrombin Time (PT) Comments: PERFORMED BY: [employer]70 [facility] [id number] Prothrombin Time 26.4 {sec} (Abnormal) Range: 8.7-11.5 INR 2.7 (Abnormal) Range: 0.8-1.2 Comments: Reference interval is for non-anticoagulated patients..Suggested INR therapeutic range for Vitamin Kantagonist therapy:Standard Dose (moderate intensitytherapeutic range): 2.0 - 3.0Higher intensity therapeutic range 2.5 - 3.5 8-Cok-381820:16 Prothrombin Time (PT) Comments: PERFORMED BY: [employer]6370 [facility] [id number] Prothrombin Time 14.1 {sec} (Abnormal) Range: 8.7-11.5 INR 1.4 (Abnormal) Range: 0.8-1.2 Comments: Reference interval is for non-anticoagulated patients..Suggested INR therapeutic range for Vitamin Kantagonist therapy:Standard Dose (moderate intensitytherapeutic range): 2.0 - 3.0Higher intensity therapeutic range 2.5 - 3.5 36-Pko-584297:04 PT (Prothrobim Time) Comments: inr; PATIENT NOT FASTINGPERFORMED BY: [employer] Dvbfxi7287 [facility] [id number] Information: ADD DRAW FEE [id number] AND J0 [id number] (96029) Prothrombin Time 36.2 {sec} (Abnormal) Range: 8.7-11.5 INR 3.7 (Abnormal) Range: 0.8-1.2 Comments: Client Requested FlagReference interval is for non-anticoagulated patients..Suggested INR therapeutic range for Vitamin Kantagonist therapy:Standard Dose (moderate intensitytherapeutic range): 2.0 - 3.0Higher intensity therapeutic range 2.5 - 3.5 :03 TSH (98647) Comments: PATIENT WAS FASTINGPERFORMED BY: [facility]6370 [facility] [id number] TSH 0.329 {uIU/mL} (Abnormal) Range: 0.450-4.500 :03 URINALYSIS, W/ MICRO (45841) Comments: PATIENT WAS FASTINGPERFORMED BY: [place] 2601470 [facility] [id number] Bilirubin Negative (Normal) Microscopic Examination See below: (Normal) Nitrite, Urine Negative (Normal) Occult Blood 2+ (Abnormal) Urobilinogen,Semi-Qn 0.2 mg/dL (Normal) Range: 0.0-1.9 Glucose Negative (Normal) Ketones Negative (Normal) Protein 1+ (Abnormal) WBC Esterase 3+ (Abnormal) Appearance Clear (Normal) pH 6.0 (Normal) Range: 5.0-7.5 Specific [place] 1.024 (Normal) Range: 1.005-1.030 Urine-Color Yellow (Normal) :03 MICROALBUMIN: CREATININE RATIO Comments: PATIENT WAS FASTINGPERFORMED BY: [place] 2601470 [facility] [id number] (74337) AND (29059) Microalb/Creat Ratio 76.6 {mg/g_creat} (Abnormal) Range: 0.0-30.0 Creatinine, Urine 298.9 mg/dL (Abnormal) Range: 15.0-278.0 Microalbumin, Urine 229.0 ug/mL (Abnormal) Range: 0.0-17.0 :03 METABOLIC PANEL, COMPREHENSIVE Comments: PATIENT WAS FASTINGPERFORMED BY: [place] 2601470 [facility] [id number] (26339) A/G Ratio 1.5 (Normal) Range: 1.1-2.5 Albumin, [...] Glucose, Serum 83 mg/dL (Normal) Range: 65-99 8-Jbk-416185:03 LIPID PANEL (47702) Comments: PATIENT WAS FASTINGPERFORMED BY: LabCoHudson County Meadowview HospitalHgehsc6593 [facility] [id number] LDL/HDL Ratio 1.1 {ratio_units} (Normal) Range: 0.0-3.2 HDL Cholesterol 57 mg/dL (Normal) Comments: According to ATP-III Guidelines, HDL-C >59 mg/dL is considered anegative risk factor for CHD. LDL Cholesterol Calc 62 mg/dL (Normal) Range: 0-99 VLDL Cholesterol Richard 20 mg/dL (Normal) Range: 5-40 Cholesterol, Total 139 mg/dL (Normal) Range: 100-199 Triglycerides 98 mg/dL (Normal) Range: 0-149 5-Xkh-473821:03 CBC WITH MANUAL DIFF Comments: PATIENT WAS FASTINGPERFORMED BY: NUVIA StayTunedHudson County Meadowview HospitalIjyhpq88[address] [place] [address] [id number] Information: [id number] (60752) Baso (Absolute) 0.0 {x10E3/uL} (Normal) Range: 0.0-0.2 [...] 3.80-5.10 WBC 4.0 {x10E3/uL} (Normal) Range: 4.0-10.5 5-Uxt-504068:17 Prothrombin Time (PT) Comments: PERFORMED BY: NUVIA [facility]6370 [facility] [id number] INR 1.2 (Normal) Range: 0.8-1.2 Comments: Reference interval is for non-anticoagulated patients. . Suggested INR therapeutic range for Vitamin K anta gonist therapy: Standard Dose (moderate intensity therapeutic range): 2.0 - 3.0 Higher intensity therapeutic range 2.5 - 3.5 Prothrombin Time 12.1 {sec} (Abnormal) Range: 8.7-11.5 :56 Prothrombin Time (PT) Comments: PERFORMED BY: [employer]70 [facility] [id number] INR 1.7 (Abnormal) Range: 0.8-1.2 Comments: Reference interval is for non-anticoagulated patients. . Suggested INR therapeutic range for Vitamin K anta gonist therapy: Standard Dose (moderate intensity therapeutic range): 2.0 - 3.0 Higher intensity therapeutic range 2.5 - 3.5 Prothrombin Time 17.0 {sec} (Abnormal) Range: 8.7-11.5 :26 CBC With Differential/Platelet Comments: PERFORMED BY: [employer]6370 [facility] [id number] Baso (Absolute) 0.0 {x10E3/uL} (Normal) Range: 0.0-0.2 [...] 11.7-15.0 WBC 4.6 {x10E3/uL} (Normal) Range: 4.0-10.5 88-Zjq-70699:26 Comp. Metabolic Panel (14) Comments: PERFORMED BY: [facility]Asc[facility]6370 [facility] [id number] A/G Ratio 1.5 (Normal) Range: 1.1-2.5 Albumin, [...] Microalb/Creat Ratio, Randm Ur Comments: PERFORMED BY: [employer] [facility] [id number] Creatinine, Urine 193.6 mg/dL (Normal) Range: 15.0-278.0 Microalb/Creat Ratio 7.4 {mg/g_creat} (Normal) Range: 0.0-30.0 Microalbumin, Urine 14.3 ug/mL (Normal) Range: 0.0-17.0 :26 NMR LipoProfile Comments: PERFORMED BY: [employer]70 [facility] [id number] Cholesterol, Total 159 mg/dL (Normal) HDL-C 55 [...] :26 Prothrombin Time (PT) Comments: PERFORMED BY: [employer] [facility] [id number] INR 1.1 (Normal) Range: 0.8-1.2 Comments: Reference interval is for non-anticoagulated patients. . Suggested INR therapeutic range for Vitamin K anta gonist therapy: Standard Dose (moderate intensity therapeutic range): 2.0 - 3.0 Higher intensity therapeutic range 2.5 - 3.5 Prothrombin Time 11.0 {sec} (Normal) Range: 8.7-11.5 :2 TSH 0.296 {uIU/mL} Comments: PERFORMED BY: Brandtree70 [facility] [id number] (Abnormal) Range: 0.450-4.500 :33 Prothrombin Time (PT) Comments: PERFORMED BY: [employer] [facility] [id number] INR 3.3 (Abnormal) Range: 0.8-1.2 Comments: Reference interval is for non-anticoagulated patients. . Suggested INR therapeutic range for Vitamin K anta gonist therapy: Standard Dose (moderate intensity therapeutic range): 2.0 - 3.0 Higher intensity therapeutic range 2.5 - 3.5 Prothrombin Time 31.8 {sec} (Abnormal) Range: 8.7-11.5 :44 Prothrombin Time (PT) Comments: PERFORMED BY: [employer] [facility] [id number] INR 1.1 (Normal) Range: 0.8-1.2 Comments: Reference interval is for non-anticoagulated patients. . Suggested INR therapeutic range for Vitamin K anta gonist therapy: Standard Dose (moderate intensity therapeutic range): 2.0 - 3.0 Higher intensity therapeutic range 2.5 - 3.5 Prothrombin Time 11.4 {sec} (Normal) Range: 8.7-11.5 :53 PT/INR, Office (64885) Comments: PATIENT NOT FASTINGClinical Information: ADD [id number] PERFORMED BY: [employer] Lqitng3260 [facility] [id number] INR 4.3 (Abnormal) Range: 0.8-1.2 Comments: Reference interval is for non-anticoagulated patients. . Suggested INR therapeutic range for Vitamin K anta gonist therapy: Standard Dose (moderate intensity therapeutic range): 2.0 - 3.0 Higher intensity therapeutic range 2.5 - 3.5 Prothrombin Time 41.2 {sec} (Abnormal) Range: 8.7-11.5 66-Yme-785465:42 PT/INR, Office (10082) Comments: done>Wf. INR 4.0 (Normal) 48-Mbe-675077:56 CBC With Differential/Platelet Comments: PATIENT WAS FASTINGPERFORMED BY: LabCoHudson County Meadowview HospitalPjtfyk4557 [facility] [id number] Baso (Absolute) 0.0 {x10E3/uL} (Normal) Range: 0.0-0.2 [...] 11.7-15.0 WBC 4.3 {x10E3/uL} (Normal) Range: 4.0-10.5 73-Zac-038518:56 Comp. Metabolic Panel (14) Comments: PATIENT WAS FASTINGPERFORMED BY: [facility] Doribc6229 [facility] [id number] A/G Ratio 1.6 (Normal) Range: 1.1-2.5 Albumin, [...] Sodium, Serum 142 mmol/L (Normal) Range: 135-145 50-Nfc-687527:56 Microscopic Examination Comments: PATIENT WAS FASTINGPERFORMED BY: [employer] [facility] [id number] Bacteria Few (Normal) Cast Type Hyaline casts (Normal) Casts Present {/lpf} (Abnormal) Crystal Type Calcium Oxalate (Normal) Crystals Present (Abnormal) Epithelial Cells (non renal) 0-10 {/hpf} (Normal) Range: 0 - 10 Mucus Threads Present (Normal) RBC 4-10 {/hpf} (Abnormal) Range: 0 - 3 WBC 11-30 {/hpf} (Abnormal) Range: 0 - 5 83-Rzr-155899:56 NMR LipoProfile Comments: PATIENT WAS FASTINGPERFORMED BY: [employer] [facility] [id number] HDL-C 65 mg/dL (Normal) Large HDL-P 13.0 [...] 0.110 {uIU/mL} Comments: PATIENT WAS FASTINGPERFORMED BY: [employer] [facility] [id number] :56 (Abnormal) Range: 0.450-4.500 26-Tyb-958855:56 Urinalysis, Routine Comments: PATIENT WAS FASTINGPERFORMED BY: [facility] MonolithicsAscension River District Hospital6370 [facility] [id number] Appearance Clear (Normal) Bilirubin Negative (Normal) Glucose Negative (Normal) Ketones Negative (Normal) Microscopic Examination See below: (Normal) Nitrite, Urine Negative (Normal) Occult Blood Trace (Abnormal) pH 5.0 (Normal) Range: 5.0-7.5 Protein Negative (Normal) Specific [place] 1.020 (Normal) Range: 1.005-1.030 Urine-Color Yellow (Normal) Urobilinogen,Semi-Qn 0.2 mg/dL (Normal) Range: 0.0-1.9 WBC Esterase 2+ (Abnormal) Vitamin D, 25-Hydroxy 34.8 ng/mL (Normal) Comments: PATIENT WAS FASTINGPERFORMED BY: StayTunedHudson County Meadowview HospitalPxqpss6800 [facility] [id number] 2:56 Range: 32.0-100.0 Comments: Recent studies consider the lower limit of 32.0 ng/mL to be athreshold for optimal health.Sameer KRISHNA. J Nutr. 2004;135(2):317-22. 9-Nos-940310:36 PT/INR, Office (38965) Comments: done>Wf.no change zaida 2 weeks INR 2.7 (Normal) 28-Fwd-156449:04 PT/INR, Office (64481) Comments: done BC INR 2.3 (Normal) 86-Mly-898288:17 PT/INR, Office (29311) INR 3.2 (Normal) 2-Mye-095674:14 PT/INR, Office (03092) INR 2.7 (Normal) 07-Guc-712634:31 LOWER EXT/JT ONLY (ROUTINE) Radiology Report See Note (Normal) Comments: Exam Number: [id number] MRI LEFT KNEE REASON FOR EXAMINATION Post [...] By: BRITNEY JONES M.D. :59 PT/INR, Office (31311) Comments: done kmforgot to take to [place] for 10 days has been back a month and still low INR 1.1 (Normal) :17 TSH 0.01 {uIU/mL} (Abnormal) Range: 0.34-4.82 :55 PT/INR, Office (37179) INR 2.2 (Normal) PT (PROTHROMBIN TIME) INR-2.2 s (Normal) Range: 11.5-13.5 :18 PT/INR, Office (32851) Comments: done>Wf. INR 1.7 (Normal) :58 PT/INR, Office (27819) Comments: 4MG CURRENT DOSE--INR 3.2 NEW DOSE 4 MG 5 DAYS WEEK AND 2 MG 2 DAYS ZAIDA 2 WEEKS INR 3.2 (Normal) PT (PROTHROMBIN TIME) INR-3.2 s (Normal) Range: 11.5-13.5 :23 Prothrombin Time (PT) Comments: PERFORMED BY: [facility] Bbnttu9236 [facility] [id number] INR 2.1 (Normal) Range: 2.0-3.5 Comments: INR [...] 0.2 EU/dl (Normal) Range: 0.2 - 1.0 9-Rogers-70344:17 TSH < 0.01 {uIU/mL} (Abnormal) Range: 0.34-4.82 :14 PT/INR, Office (84250) INR 2.0 (Normal) :56 PT/INR, Office (87440) INR 1.4 (Normal) :47 PT/INR, Office (82867) INR 2.9 (Normal) PT (PROTHROMBIN TIME) INR-2.9 s (Normal) Range: 11.5-13.5 :12 PT/INR, Office (84386) INR 2.2 (Normal) :22 PT/INR, Office (79151) INR 1.3 (Normal) Comments: aw :38 BILAT SCRN DIGITAL & CAD Radiology Report See Note (Normal) Comments: Exam Number: [id number] MAMMOGRAM, BILATERAL SCREENING DIGITAL AND CAD HISTORYRoutine [...] mammograms werealso examined with computer-aided detection software ([employer], [employer] Reported By: KEYUR MILTON M.D. :38 DEXA BONE DENSITY STUDY (HP) Radiology Report See Note (Normal) Comments: Exam Number: [id number] BONE DENSITOMETRY HISTORYOsteopenia. TECHNIQUE Bone densitometry of [...] is measured at 6.4% less than in 1999 and 3.5%less than in 2003. IMPRESSIONThere is osteopenia of the lum bar spine and total left hip. Reported By: KEYUR MILTON M.D. 57-Dan-579446:41 PT/INR, Office ([id number]) Comments: 2.0 ok zaida 2-3 weeks INR 2.0 (Normal) :53 PT/INR, Office (21790) Comments: alt 2/4 and zaida 2 weeks inr 3.2 INR 3.2 (Normal) Comments: 8-Rbe-017216:10 PT/INR, Office (37703) Comments: done kmno change zaida in 2-3 weeks INR 2.6 (Normal) :52 PT/INR, Office (80000) INR 1.7 (Normal) Comments: :24 CULTURE, URINE [...] Comments: GLU,2HPPG 75gm GLUC PPG GLUP from [id number]:[id number]. :38 CBCD,SMEAR DIFF CELLS COUNTED 100 (Normal) [...] {uIU/mL} (Normal) Range: 0.34-4.82 :45 PT/INR, Office ([id number]) Comments: done INR 2.7 (Normal) :16 PRO [...] Plan of Care Name Dates Details Instructions Upper respiratory infection, acute : Follow up [...] obstruction) SBO (small bowel obstruction) : Reviewed Cardroom Worker Letter Indication: SBO (small bowel obstruction) Fatigue [...] kidney disease, stage IV (severe) : Reviewed Cardroom Worker Letter Indication: Chronic kidney disease, stage IV [...] closed fracture of right hip : Reviewed Cardroom Worker Letter Indication: Status post-operative repair of closed [...] Lab Indication: Hypothyroidism LYMPHOMA, NOS : Reviewed Cardroom Worker Letter Indication: LYMPHOMA, NOS Hypertension, benign : [...] Indication: Hyperlipidemia, unspecified LYMPHOMA, NOS : Reviewed Cardroom Worker Letter Indication: LYMPHOMA, NOS Hyperlipidemia, unspecified : [...] Indication: LYMPHOMA, NOS LYMPHOMA, NOS : Reviewed Cardroom Worker Letter Indication: LYMPHOMA, NOS Hypothyroidism : Hypothyroidism: [...] Indication: Hypertension, benign LYMPHOMA, NOS : Reviewed Cardroom Worker Letter Indication: LYMPHOMA, NOS COUGH, NOS : [...] lymph nodes of multiple sites : Reviewed Cardroom Worker Letter Indication: Nodular lymphoma involving lymph nodes [...] lymph nodes of multiple sites : Reviewed Cardroom Worker Letter Indication: Nodular lymphoma involving lymph nodes [...] Education Indication: Osteopenia Osteopenia : *Calcium Education () Indication: Osteopenia Hypothyroidism : Continue Current Prescription(s) [...] of colon Osteoporosis : Well Female Maintenance () Indication: Osteoporosis Osteoporosis : Bisphosphonate Education Indication: [...] Side Effects Indication: Hyperlipidemia, unspecified Planned Observations THROAT CULTURE (82395)Indication: Sore throat On: 19-Cff-606028:45 Request PT (PROTHROMBIN TIME) (31182)Indication: Therapeutic drug monitoring On: 11-Hay-19483:12 Request Metabolic Panel, Comprehensive (20423)Indication: Chronic kidney disease, stage IV (severe) On: 04-Xpi-840453:40 Request PT (Prothrobim Time) (73052)Indication: nursing home current use of anticoagulant On: 29-Upd-053246:39 Request Comments: call results directly to Dr Steward [phone] Metabolic Panel, Basic (54591)Indication: Chronic kidney disease, stage IV (severe) On: 45-Wjz-056961:35 Request C-REACTIVE PROTEIN (82334)Indication: CRP elevated On: :29 Request Sedimentation Rate-ESR (96250)Indication: CRP elevated On: :29 Request Metabolic Panel, Basic (45767)Indication: Abnormal blood finding On: 69-Rsj-719711:30 Request CALCIFIDIOL (16941) VIT D 25Indication: Chronic fatigue On: 9-Vcj-748273:24 Request VITAMIN B-12 (CYANOCOBALAMIN) (25517)Indication: Chronic fatigue On: 2-Ohw-725038:24 Request SED RATE ERYTHROCYTE (01552)Indication: Chronic fatigue On: 2-Zar-542963:23 Request METABOLIC PANEL, COMPREHENSIVE (19741)Indication: Chronic fatigue On: 0-Cup-508590:23 Request C-REACTIVE PROTEIN (19820)Indication: Chronic fatigue On: 2-Lsp-434887:23 Request CBC (AUTO) (80413)Indication: Chronic fatigue On: 1-Bfl-037863:23 Request CBC & PLATELETS (AUTO) (60448)Indication: Chronic kidney disease, stage IV (severe) On: 88-Awi-288827:25 Request Comments: to Dr. Felix Parra IRON & TOTAL IRON BINDING CAPACITY (63066)Indication: Chronic kidney disease, stage IV (severe) On: 42-Obr-544649:25 Request Comments: to Dr. Felix Parra PT (PROTHROMBIN TIME) ([id number])Indication: Chronic kidney disease, stage IV (severe) On: 18-Bpi-832628:24 Request Comments: to Dr. 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 On: 32-Qec-345907:00 Request FERRITIN (00788)Indication: 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 On: 50-Tbc-205531:00 Request PT (PROTHROMBIN TIME) (14313)Indication: 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 On: 12-Ikq-657296:00 Request Metabolic Panel, Basic (70857)Indication: Hypertension, benign On: 0-Xvr-264231:44 Request FECAL OCCULT- Tubes sent home (81607)Indication: Encounter for screening for malignant neoplasm of colon (Renamed from Special screening for malignant neoplasms, colon) On: 6-Psk-820440:25 Request PT (Prothrobim Time) ([id number])Indication: 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 On: 2-Zun-318216:08 Request URINALYSIS, W/ MICRO (73578)Indication: Hypertension, benign On: 90-Ihl-059046:45 Request MICROALBUMIN: CREATININE RATIO (92413) AND (40736)Indication: Hypertension, benign On: 16-Qxk-474197:45 Request LIPID PANEL (16867)Indication: Hyperlipidemia, unspecified On: 08-Pjh-690368:45 Request D-Dimer (93043)Indication: Difficulty breathing On: 22-Ham-390266:09 Request Vitamin D Hydroxy (88506)Indication: Osteopenia On: 94-Ewt-314689:16 Request CBC W/AUTO DIFF WBC (25714)Indication: Hyperlipidemia, unspecified On: 66-Vfo-073923:19 Request Comments: pls assure i get copy of all lab i ordered METABOLIC PANEL, COMPREHENSIVE (27650)Indication: Hyperlipidemia, unspecified On: 29-Qdn-557263:17 Request LIPID PANEL (12902)Indication: Hyperlipidemia, unspecified On: 40-Osy-624850:17 Request URINALYSIS, W/ MICRO (28251)Indication: Hypertension, benign On: 10-Zfo-835238:11 Request MICROALBUMIN: CREATININE RATIO (38364) AND (01412)Indication: Hypertension, benign On: 88-Bwc-296800:11 Request CALCIFIDIOL (16973) VIT D 25Indication: FATIGUE On: 03-Mfm-233133:31 Request Folate (27357)Indication: FATIGUE On: : Request VITAMIN B-12 (CYANOCOBALAMIN) (41450)Indication: FATIGUE On: Request SED RATE ERYTHROCYTE (67216)Indication: FATIGUE On: Request RHEUMATOID FACTOR-QUANT (63068)Indication: FATIGUE On: : Request METABOLIC PANEL, COMPREHENSIVE (62960)Indication: FATIGUE On: Request C-REACTIVE PROTEIN (97345)Indication: FATIGUE On: Request CBC (AUTO) (95126)Indication: FATIGUE On: Request ZAY (ANTINUCLEAR ANTIBODY) (66970)Indication: FATIGUE On: Request URINALYSIS, W/ MICRO (40211)Indication: Hypertension, benign On: : Request MICROALBUMIN: CREATININE RATIO (49928) AND (49442)Indication: Hypertension, benign On: : Request LIPID PANEL (24924)Indication: Hyperlipidemia, unspecified On: : Request URINE ANURAG CULTURE-TYSON COL COUNT (67912)Indication: Urinary frequency On: :06 Request URINALYSIS, W/ MICRO (15843)Indication: Hypertension, benign On: 79-Ikt-524696:56 Request MICROALBUMIN: CREATININE RATIO (47700) AND (51625)Indication: Hypertension, benign On: 69-Wry-470214:56 Request METABOLIC PANEL, COMPREHENSIVE (85619)Indication: Hypertension, benign On: 32-Piw-240182:56 Request CBC WITH MANUAL DIFF (37319)Indication: Hypertension, benign On: 88-Zhj-963391:56 Request LIPID PANEL (20436)Indication: Hyperlipidemia, unspecified On: 44-Llz-839327:56 Request CBC with manual diff (45428)Indication: LYMPHOMA, NOS On: 9-Sgf-242538:15 Request Comments: pls fax a copy to [phone] PT (Prothrobim Time) (74963)Indication: 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 On: 2-Qny-140892:14 Request Comments: pls fax a copy to [phone] PTT (Activated Partial Thromboplastin Time) (57011)Indication: nursing home current use of anticoagulant On: 2-Dma-125763:14 Request LDH (LD) (LACTATE DEHYDROGENASE) (77020)Indication: LYMPHADENITIS, ACUTE (683.) On: 23-Elu-672451:37 Request SED RATE ERYTHROCYTE (99693)Indication: LYMPHADENITIS, ACUTE (683.) On: :36 Request C-REACTIVE PROTEIN (64920)Indication: LYMPHADENITIS, ACUTE (683.) On: :36 Request CBC WITH MANUAL DIFF (91815)Indication: LYMPHADENITIS, ACUTE (683.) On: :36 Request METABOLIC PANEL, COMPREHENSIVE (74511)Indication: LYMPHADENITIS, ACUTE (683.) On: :36 Request CALCIUM, IONIZED (84463)Indication: Hypercalcemia On: :03 Request CALCIUM SERUM (57737)Indication: Hypercalcemia On: 0-Iye-213709:03 Request Metabolic Panel, Comprehensive (55478)Indication: Hyperlipidemia, unspecified On: 45-Jwa-472387:33 Request T4, FREE (THYROXINE) (35843)Indication: Hypothyroidism On: 40-Cfs-131375:15 Request T3, FREE (TRIDOTHYRONINE) (96503)Indication: Hypothyroidism On: 27-Aen-760370:15 Request LIPOPROTEIN, BLD, BY NMR (69759)Indication: Hypertension, benign On: 8-Fhl-992393:50 Request METABOLIC PANEL, COMPREHENSIVE (36379)Indication: Hypertension, benign On: 76-Pdb-131914:52 Request MICROALBUMIN: CREATININE RATIO (37986) AND (89435)Indication: Hypertension, benign On: 93-Gii-515410:52 Request LIPOPROTEIN, BLD, BY NMR (55109)Indication: Hypertension, benign On: :52 Request LIPID PANEL (89947)Indication: Hypertension, benign On: 96-Coz-237345:52 Request CBC WITH MANUAL DIFF (10078)Indication: Hypertension, benign On: 55-Dzc-434040:52 Request Vitamin D Hydroxy (89838)Indication: Osteoporosis On: 5-Pkz-771261:35 Request URINALYSIS W/O MICRO (37707)Indication: Hypertension, benign On: 0-Srt-003891:35 Request MICROALBUMIN: CREATININE RATIO (19841) AND (02153)Indication: Hypertension, benign On: 6-Laa-655618:35 Request METABOLIC PANEL, COMPREHENSIVE (65113)Indication: Hypertension, benign On: :35 Request LIPOPROTEIN, BLD, BY NMR ([id number])Indication: Hypertension, benign On: 7-Rrs-752417:35 Request LIPID PANEL (53665)Indication: Hypertension, benign On: :35 Request CBC WITH MANUAL DIFF (31362)Indication: Hypertension, benign On: :35 Request PT/INR, Office (75101)Indication: 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 On: :32 Request Comments: done awinr 2.8 same dose zaida 2-3 weeks PT/INR, Office (53189)Indication: Other pulmonary embolism and infarction On: :55 Request URINALYSIS W/O MICRO (91075)Indication: Hypertension, benign On: 47-Map-576571:47 Request MICROALBUMIN URINE QUANT (90090)Indication: Hypertension, benign On: 52-Fae-902748:47 Request LIPID PANEL (22597)Indication: Hypertension, benign On: 59-Frt-645479:47 Request METABOLIC PANEL, COMPREHENSIVE (67661)Indication: Hypertension, benign On: 01-Yif-710367:47 Request CBC WITH MANUAL DIFF (83897)Indication: Hypertension, benign On: 59-Ody-549657:47 Request PT/INR, Office (27092)Indication: Other pulmonary embolism and infarction On: 57-Ccu-537310:19 Request PT/INR, Office (27700)Indication: Other pulmonary embolism and infarction On: 95-Hya-395122:49 Request Glucose, PP/2 Hour (41277)Indication: Family history of diabetes mellitus On: :17 Request URINALYSIS W/O MICRO (65658)Indication: Hypertension, benign On: :17 Request METABOLIC PANEL, COMPREHENSIVE (10726)Indication: Hypertension, benign On: :17 Request MICROALBUMIN URINE QUANT (86438)Indication: Hypertension, benign On: :17 Request LIPID PANEL (35076)Indication: Hypertension, benign On: :17 Request CBC WITH MANUAL DIFF ([id number])Indication: Hypertension, benign On: :17 Request PT/INR, Office (47026) On: :[address] - Abdomen (Without Contrast)By: On: 03-Jan-2018 Intent Anya Steward DO, DO, Kathleen CT SCAN OF ABDOMEN WITH CONTRAST On: 22-Dec-2017 Intent ([id number])By: Anya Steward DO, DO, Kathleen CT - Abdomen & Pelvis (IV Contrast On: 19-Jun-2017 Intent Needed)By: Anya Steward DO, DO, Kathleen PFT - CompleteBy: Stoney MURRIETA, On: 15-Jun-2017 Intent Anya Dumont DO Comments: with DLCO B 12 Injection, 1000 mcg (J3420)By: On: 15-Jun-2017 Intent Anya Steward DO, DO, Comments: 1ml given lt dltd lot [id number] exp 09/18 Anya Radiology - Chest- PA and LatBy: On: 15-Jun-2017 Intent Anya Steward DO, DO, Kathleen Spirometry (74731)By: Stoney MURRIETA, On: 15-Jun-2017 Intent Anya Dumont DO Comments: moderate obstruction ELECTROCARDIOGRAM, COMPLETE (ECG) On: 15-Jun-2017 Intent (94185)By: Anya Steward DO Comments: nsr no acute chg Anya Steward DO Radiology - Abdomen SeriesBy: On: 15-May-2017 Intent Yolanda Zarco SCREENING DIGITAL TOMOSYNTHESIS OF On: 14-Dec-2016 Intent BREAST ([id number])By: Anya Steward DO, DO, Kathleen MRI OF THORACIC SPINE WITHOUT On: 05-Dec-2016 Intent CONTRAST ([id number])By: Anya Steward DO, DO, Kathleen Inhaler Demo (22005)By: Stoney MURRIETA, On: 23-Sep-2016 Intent Anya Dumont DO Spirometry (42635)By: Stoney MURRIETA, On: 23-Sep-2016 Intent Anya Dumont DO Comments: restrictive pattern Radiology - Chest- PA and LatBy: On: 23-Sep-2016 Intent Anya Steward DO Stoney DO, Anya Aerosol Treatment (64340)By: Stoney On: 23-Sep-2016 Intent DOAnya Stoney DOAnya Comments: 0.83% albulterol more a/e more noisy with diffuse inspir and exp wheeze DEXA SCAN AXIAL SKELETON (97468)By: On: 02-Nov-2015 Intent Anya Steward DO DOAnya MAMMOGRAM, SCREENING, BOTH BREAST On: 02-Nov-2015 Intent ([id number])By: Anya Steward DO, DO, Kathleen Inhaler Demo (12832)By: Stoney MURRIETA, On: 07-Oct-2015 Intent Anya Dumont DO Aerosol Treatment (42313)By: Stoney On: 07-Oct-2015 Intent Anya MURRIETA DO, Kathleen Comments: no hweeze but still tight Radiology - Chest- PA and LatBy: On: 07-Oct-2015 Intent Anya Steward DO, DO, Kathleen Radiology - Cervical SpineBy: Stoney On: 17-Sep-2015 Intent Anya MURRIETA DO, Kathleen CT - ChestBy: Anya Steward DO On: 16-Jan-2015 Intent Anya Steward DO Doppler Ultrasound OtherBy: Stoney On: 14-Jan-2015 Intent DOAnya StoneyAnya basurto DO Comments: b/l lower extremities COMPUTED TOMOGRAPHY ANGIOGRAPHY OF On: 14-Jan-2015 Intent CHEST FOR PULMONARY EMBOLISM Comments: Pls call [phone] with wet read (26896)By: Anya Steward DO, DO, Kathleen Radiology - ChestBy: Stoney MURRIETA, On: 14-Jan-2015 Intent Anya Castellanoson Anya MURRIETA OtherBy: Anya Steward DO On: 14-Jan-2015 Intent Anya MURRIETA Comments: 3-phase bone scan-- history of lymphoma and osteopenia Lzhmewcah-Qjj-Nhree (10655)By: On: 12-Dec-2014 Intent Anya Steward DO, DO, Kathleen DEXA SCAN AXIAL SKELETON (50735)By: On: 19-Nov-2014 Intent Anya Steward DO, DO, Kathleen Radiology - Hip - RightBy: Stoney On: 22-Oct-2014 Intent Anya MURRIETA DO, Kathleen Prevnar 13 (60087)By: Stoney MURRIETA, On: 10-Jul-2014 Intent Anya Dumont DO EKG (14789)By: Anya Steward DO On: 10-Jul-2014 Intent Anya Steward DO Comments: sinus nicolas noacute chg FLU VAC, SPLIT, >3 YEARS, INTRAMUSC On: 22-May-2013 Intent (58482)By: Sariah Brantley LPN Comments: lot [id number]/route L thomas, IMamt 0.5mlVIS and ABN signed [facility] ADMINISTRATION OF INFLUENZA VIRUS On: 22-May-2013 Intent VACCINE (G0008)By: Sariah Brantley LPN B 12 Injection, 1000 mcg (J3420)By: On: 15-Apr-2013 Intent Akosua Gannon Comments: Lot:[id number]:Dose:1mlRoute:IMSite:l armGiven By:OLIVIER signed Eprescribed prescriptions (G8553)By: On: 15-Apr-2013 Akosua Kirby EKG (30002)By: Anya Steward DO On: 18-Feb-2013 Intent Anya Steward DO Comments: nsr no acute chg B 12 Injection, 1000 mcg (J3420)By: On: 18-Feb-2013 Intent Anya Steward DO, DO, Comments: lot: [id number]: 01/11site/route: R deltoid/IMamt: 1mLVIS signed when applicableK[facility] Institute Anya TDAP VACCINE >7 IM (64241)By: Stoney On: 18-Feb-2013 Anya Fernandez DO, DO, Kathleen Comments: lot: [id number]: 05/08/15site/route: L deltoid/IMamt: 0.5mLVIS signed when applicable: Wilfredo, ROBINSON MAMMOGRAM, SCREENING, BOTH BREASTS On: 18-Feb-2013 Intent (41100)By: Anya Steward DO Comments: dx screening Anya Steward DO Eprescribed prescriptions (G8553)By: On: 18-Feb-2013 Intent Yolanda Dove LPN Toradol Injection, 30 mg (J1885)By: On: 13-Nov-2012 Intent Madonna Nation LPN Comments: Lot #[id number]/14Site-right hipDose-30mggiven by: Yony Nation LPN Radiology - ChestBy: Miri Polanco CNP On: 13-Nov-2012 Intent E Comments: attention Rt ribs SPECIMEN HNDLNG/TRNSPRT, OFFC > LAB On: 24-Sep-2012 Intent (46975)By: Sariah Brantley LPN Eprescribed prescriptions (G8553)By: On: 06-Sep-2012 Intent Anya Steward DO, DO, Kathleen FLU VAC, SPLIT, >3 YEARS, INTRAMUSC On: 08-Jun-2012 Intent (32390)By: Miri Polanco CNP Comments: Lot:[id number]:6.13Amt:prefilled syringeSite: L Dltd, IMGiven by: ELICEO EspanaVIS signed ADMINISTRATION OF INFLUENZA VIRUS On: 08-Jun-2012 Intent VACCINE (G0008)By: Miri Polanco CNP Eprescribed prescriptions (G8553)By: On: 04-Apr-2012 Intent Miri Polanco CNP SPECIMEN HANDLING/TRANSPORT On: 04-Apr-2012 Intent (05874)By: Sariah Brantley LPN EKG (25523)By: Anya Steward DO On: 22-Jun-2011 Intent Anya [...] SPLIT, >3 YEARS, INTRAMUSC On: 25-May-2011 Intent (26069)By: Anya Steward DO Comments: 0.5cc given im lt arm lot [id number] exp 01-28-12 Anya Steward DO ADMINISTRATION OF INFLUENZA VIRUS On: 25-May-2011 Intent VACCINE (G0008)By: Anya Steward DO, DO, Kathleen CT - Abdomen & Pelvis (IV Contrast On: 25-May-2011 Intent Needed)-- attention to mass in R groin-- pt has lymphoma in remissionBy: Anya Steward DO, DO, Kathleen Solu -Medrol Injection, 125 mg On: 18-Apr-2011 Intent (J2930)By: Miri Polanco CNP Comments: Lot #[id number]/13Site-L hip, IMDose 125mggiven by:DEYANIRA MRI - BrainBy: Miri Polanco CNP On: 17-Mar-2011 Intent Comments: today if possible Carotid DopplerBy: Miri Polanco CNP On: 17-Mar-2011 Intent DXA, BONE DENSITY, AXIAL SKELETON On: 23-Dec-2010 Intent (63961)By: Anya Steward DO, DO, Kathleen EKG (30711)By: Anya Steward DO On: 23-Dec-2010 Intent Anya Steward DO Comments: nsr no acute chg MRI - Left arm- attention; deltoid On: 07-Jul-2010 Intent area -bulgeBy: Anya Steward DO, DO, Kathleen Radiology - PelvisBy: Stoney MURRIETA, On: 07-Jul-2010 Intent Anya Dumont DO Radiology - Lumbar SpineBy: Stoney On: 07-Jul-2010 Intent Anya MURRIETA DO, Kathleen Radiology - Hip - RightBy: Stoney On: 07-Jul-2010 Intent Anya MURRIETA DO, Kathleen FLU VAC, SPLIT, >3 YEARS, INTRAMUSC On: 07-Jul-2010 Intent (57685)By: Yolanda Dove LPN Comments: 0.5cc given im lt arm lot [id number] 4p exp 4-11 ADMINISTRATION OF INFLUENZA VIRUS On: 07-Jul-2010 Intent VACCINE (G0008)By: Yolanda Dove LPN ADMINISTRATION OF PNEUMOCOCCAL On: 13-Apr-2009 Intent VACCINE (G0009)By: Anya Steward DO, DO, Kathleen PNEUM VAC ADLT/IMUMNOSPR, SBC/INTRM On: 13-Apr-2009 Intent (95400)By: Anya Steward DO Comments: 0.5cc given im rt dltd lot [id number] exp 01-01-10 Anya Steward DO EKG (03214)By: Yolanda Dove LPN On: 13-Apr-2009 Intent Comments: rob beckwith no acute changes IMMUNIZ ADMNIN, 1 VAC, SNGL/COMBO On: 13-Apr-2009 Intent (10321)By: Yolanda Dove LPN FLU VAC, SPLIT, >3 YEARS, INTRAMUSC On: 13-Apr-2009 Intent (80262)By: Yolanda Dove LPN Comments: rob andrade 0.5 cc [place] im [place] lot [id number] 4p exp - MRI - Knee(s) - LeftBy: Stoney MURRIETA, On: 20-Jun-2008 Intent Anya Dumont DO EKG (66931)By: Anya Steward DO On: 18-Feb-2008 Intent Anya Steward DO Comments: NSR NO ACUTE CHANGES--NONSPECIFIC CHANGESNO CHANGES DXA, BONE DENSITY, AXIAL SKELETON On: 09-Jul-2007 Intent (11454)By: Anya Steward DO, DO, Kathleen MAMMOGRAM, SCREENING, BOTH BREASTS On: 09-Jul-2007 Intent (58661)By: Anya Steward DO, DO, Kathleen EKG (19101)By: Anya Steward DO On: 28-Feb-2007 Intent Anya [...] pneumonia : Patient Instructions Indication: Walking pneumonia nursing home current use of anticoagulant : Patient Instructions Indication: nursing home current use of anticoagulant Cough : How [...] Indication: Urinary frequency Encounters Office Visit On: 14-Jun-2018 13:53 Encounter Reason: [...] 23.0-23.9, adult, Non-smoker, Abdominal pain, Hematuria, gross, 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, Nodular lymphoma involving [...] 13-Jul-2017 11:14 Therapeutic drug monitoring, Edema extremities, 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 [facility] Office Visit On: 11-Jul-2017 10:35 Encounter Reason: Follow up hospital - Reason for ER visit: note: (sbo she was at [facility] er [facility] times and sent her home still had pain so sent her to [facility] where she had a procedure that relieved [...] Edema extremities, Chronic systolic congestive heart failure, nursing home current use of anticoagulant [facility] [...] due to stage 3 chronic kidney disease, 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 The activities of [...] The patient does have durable power of health care attorney and living will. The patient has [...] and other. weight :.Encounter Diagnosis: LYMPHOMA, NOS, 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, FACTOR V DEFICIENCY, [...] per night. 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 Encounter Diagnosis: Hypothyroidism (244.9), Nodular lymphoma involving [...] The patient does have durable power of health care attorney and living will. The patient has noticed dissatisfaction with life, dropping activities and interests, feeling helpless, feeling worthless, lack of energy and thinking mos t people are better off than them. Other providers contributing to the patient's care are electromechanical equipment assembler (Dr. Martino) and other: (Dr. Shields for [...] The pain radiates to the abdomen (ribcage). Th End: 13-Nov-2012 12:04 e patient describes the [...] cough or fatigue.Encounter Diagnosis: PHARYNGITIS, ACUTE (462.), [facility] (372.03) [facility] Office Visit [...] [facility] End: 10-Apr-2006 14:29 Payers MedicareAARP/Shirley Duenas; kenn guarantor
--- OUTSIDE RECORDS SUMMARY | 2018-08-24 20:36 | XMS RPT_ITS | Continuity of Care Document ---
:1935 Author Organization [facility] Address [address] [place] [address] Phone Care Team Providers Name Role Phone Anya Steward DO Unavailable Dr. Alexey Shields Unavailable Guicho Rowe DO Unavailable Physical Therapy, [facility] Unavailable Daniel Hawk Unavailable Unavailable ELICEO Dove [...] ribshistory of nonhodgkins lymphoma being seen by Badger Lee Status: Active SBO (small bowel obstruction) (K56.609, [...] MG Oral Tablet Disintegrating 1 (one) Tablet [id number] for 30 days Quantity: 60 {Tablet} Refills: [...] End : 15-Apr-2013 Inactive FOSAMAX PLUS D, [id number] (Oral Tablet) 1 Tablet QW for 0 [...] 12-Jul-2016 End : 11-Aug-2016 Inactive Vitamin D3 91210 UNIT Oral Tablet 1 (one) Tablet once [...] NOS (451.9) Status: Inactive as of 03-Aug-2009 [place] eye (372.03) Status: Inactive as of 18-Feb-2013 [...] w/ Contrast Result: Comments: See Note; NOTES: [facility] Cardiovascular Services [address] [place] [address] Echo Complete W/ Contrast 05/07/18 1404 MR#: [id number] Acct: [id number] Name: SALMA GONSALVES Rep #: [id number] : 1935 82 From: Fred Huerta MD Attending Dr: JARRELL KATE MD Status: REG CLI Ordering Dr: Jarrell Kate MD Date: 05/07/18 Location: [facility] Sex: F C Admitted: Reason For Study: THORACIC AORTA ANEURYSM Procedure This was a 2D Doppler, Color Flow transthoracic echocardiogram. Contrast injection was performed. Exam performed in department. Left Ventricle Hail l LV size. Left ventricular systolic function [...] Date Dictated: 05/07/18 1404 Date Transcribed: 05/07/181625 Associate Professor Of Kinesiology: Signed 28-Feb-2018 Oncology Visit Report Result: Comments: See Note; NOTES: [facility] Oncology [address] [address] OFFICE VISIT Date of Service: 02/28/18 1508 MR#: [id number] Acct: [id number] Name: FABIO DUENAS Kenn Rep #: [id number] : 1935 From: Keaton Young MD Age/Sex: [...] in 05/2017. She was transferred to in [facility] and, passed hard fecal material with [...] Surgical: Hernia repair Other Surgical History: RUE [place] F[place] FOR ESRD BOWEL RESECTION WITH COLOSTOMY [...] Code Visit Office Visits / Cons ults: 17810 OV L4 Est 02/28/18 1515 <Electronically signed by Keaton Young MD> Date Keaton Young MD Cosigner Signature: Date __ (if applicable) CC: 18-Jan-2018 Downtime Report Result: Comments: See Note; NOTES: [facility] Medical Records Department [address] [place] [address] Downtime Report MR#: [id number] Acct: [id number] Name: ERWINANASTASIYA REEVESMARY Hawk Rep #: [id number] : 1935 82 From: Erasto Cutler PCP: Anya Steward DO Status: REG CLI This patient was seen during an EMR downtime January 01, 2018 - January 08, 2018. This patient may have a combinatio n of paper and electronic documentation or all paper documentation. All documentation is viewable within the e-chart portion of [facility] for each patient visit. 04-Jan-2018 Abdomen without IV Contrast Result: Comments: See Note; NOTES: [facility] Imaging Services [address] [place] [address] Abdomen without IV Contrast MR#: [id number] Acct: [id number] Name: SALMA DUENAS Rep #: [id number] : 1935 F 82 From: Nereida Gary MD PCP: Anya Steward DO Status: REG CLI Study: Abdomen without IV Contrast Date of Exam: 01/04/18 Exam# [id number] Ordering Dr: Anya Steward DO STUDY: CT [...] Service support , Fax CC: Anyacolin Steward Associate Professor Of Kinesiology: Signed 08-Aug-2017 Echocardiogram Complete Result: Comments: See Note; NOTES: [facility] Cardiovascular Services [address] [place] [address] Echo Complete 08/08/17 1308 MR#: [id number] Acct: [id number] Name: SALMA DUENAS Rep #: [id number] : 1935 81 From: Sergio Rivero MD [...] Dictated: 08/08/17 1308 Date Transcribed: 08/08/17 1725 Associate Professor Of Kinesiology: Signed 07-Aug-2017 Venous Duplex Lower Extremity Result: Comments: See Note; NOTES: [facility] Cardiovascular Services [address] [place] [address] Venous Duplex US - Jeff Extrem 08/07/17 1230 MR#: [id number] Acct: [id number] Name: SALMA DUENAS Rep #: [id number] : 1935 81 From: Jose E Armstrong [...] Date Dictated: 08/07/17 1230 Date Transcribed: 08/07/17 075 Associate Professor Of Kinesiology: Signed 07-Aug-2017 Discharge Instruction Result: Comments: See Note; NOTES: [facility] Records Department [address] [place] [address] Discharge Instruction 08/07/17 1454 MR#: [id number] Acct: [id number] Name: RONA LrSALMA A Rep #: [id number] : 1935 81 From: Felice Aly DO [...] your Primary Care Provider. Call [facility] ([phone]) or report to the closest Emergency Room. Call 911 if necessary. 08/07/17 1454 <Electronically signed by Felice Aly DO> Date Felice Aly DO Cosigner Signature (If Indicated): Date CC: Anya Steward DO 07-Aug-2017 Emergency Department Summary Result: Comments: See Note; NOTES: [facility] Medical Records Department [address] [facility] [place] [address] Emergency Department Summary 08/07/17 1450 MR#: [id number] Acct: [id number] Name: SALMA DUENAS Rep #: [id number] : 1935 81 From: Felice Aly DO PCP: Anya Steward DO Status: PRE ER - ER Visit Summary Date of Service: 08/07/17 Chief Complaint: [[place] to both legs and concern for DVT.] [...] lower extremities] This note was generated with CrowdComfortation software. It may contain incorrect words, spelling, [...] your Primary Care Provider. Call [facility] ([phone]) or r alyrt to the closest Emergency Room. Call 911 if necessary. 08/07/17 1458 <Electronically signed by Felice Tarieliana MURRIETA> Date Felice Aly DO Cosigner Signature (If Indicated): Date CC: Anya Steward DO 02-Aug-2017 Abdomen/Pelvis without Cont Result: Comments: See Note; NOTES: [facility] Imaging Services [address] [place] [address] Abdomen/Pelvis without Cont MR#: [id number] Acct: [id number] Name: SALMA DUENAS Rep #: [id number] : 1935 F 81 From: David Wolfe MD PCP: Anya Steward DO Status: REG CLI Study: Abdomen/Pelvis without Cont Date of Exam: 08/02/17 Exam# [id number] Ordering Dr: Radha Bennett STUDY: CT ABDOMEN [...] Service support , CC: Anya Bennett NP Associate Professor Of Kinesiology: Signed 10-Jul-2017 Chest PA and Lateral Result: Comments: See Note; NOTES: [facility] Imaging Services [address] [place] [address] Chest PA and Lateral MR#: [id number] Acct: [id number] Name: SALMA DUENAS Kenn Rep #: [id number] : 1935 F 81 From: Shamir Leigh DO PCP: Anya Steward DO Status: REG CLI Study: Chest PA and Lateral Date of Exam: 07/10/17 Exam# [id number] Ordering Dr: Anya Steward DO STUDY: X-RA [...] Shamir Leigh DO at 15:44 EST Tel [phone], Service support , CC: Anya Steward DO Associate Professor Of Kinesiology: Signed 26-Jun-2017 Consultation Result: Comments: See Note; NOTES: [facility] Medical Records Department [address] [place] [address] Consultation 06/26/17 1626 MR#: [id number] Acct: [id number] Name: SALMA DUENAS Rep #: [id number] : 1935 81 From: Jasbir Luis MD PCP: Anya Steward DO Status: REG ER Y Location: ED Problem List (1) Partial obstruction of small intestine Status: Acute (2) Peristo mal hernia Status: Acute Reason for Consult Date of Consultation: 06/26/17 History of Present Illness: The patient is a 81 year old F who was admitted to [facility] with a GI bleed and an [...] time., - - colostomy. Psychiatric History: Depression TRANSLATION DIRECTOR History: No pertinent TRANSLATION DIRECTOR history Smoking Status: Never smoker - [...] hernia (Acute) - Physical Exam General: Alert, [place] ed x3 HEENT: Atraumatic, PERRLA, EOMI, Normocephalic [...] Department Summary Result: Comments: See Note; NOTES: [facility] Medical Records Department [address] [facility] [place] [address] Emergency Department Summary 06/26/17 1606 MR#: [id number] Acct: [id number] Name: ERWINANASTASIYA REEVESMARY Hawk Rep #: [id number] : 1935 81 From: Anderson Sherwood MD [...] of hypothyroidism This note was generated with Dezineforce dictation software. It may contain incorrect words, [...] problems, contact your Primary Care Provider. Call [facility] ) or report to the closest Emergency Room. Call 911 if necessary. 06/26/17 5300 <Electronically signed by Anderson Sherwood MD> Date Anderson Linnigner Signature (If Indicated): Date CC: Jasbir Luis MD; Anya Steward DO 26-Jun-2017 Abdomen/Pel W ORAL Cont Only Result: Comments: See Note; NOTES: [facility] Imaging Services [address] [place] [address] Abdomen/Pel W ORAL Cont Only MR#: [id number] Acct: [id number] Name: SALMA DUENAS Rep #: [id number] : 1935 F 81 From: Nikhil Denson MD PCP: Anya Steward DO Status: REG ER Study: Abdomen/Pel W ORAL Cont Only Date of Exam: 06/26/17 Exam# [id number] Ordering Dr: Anderson Sherwood MD STUDY: CT [...] Nikhil Denson MD at 14:59 EST , [employer] e support , CC: Anya Steward DO; Anderson Sherwood MD Associate Professor Of Kinesiology: Signed 21-Jun-2017 Emergency Department Summary Result: Comments: See Note; NOTES: [facility] Medical Records Department [address] [place] [address] Emergency Department Summary 06/21/17 1436 MR#: [id number] Acct: [id number] Name: YULISSASALMA A Rep #: [id number] : 1935 81 From: Nishi Murphy MD [...] evaluation underway This note was generated with Dezineforce dictation software. It may contain incorrect words, [...] problems, contact your Primary Care Provider. Call [facility] ([phone]) or report to the closest Emergency Room. Call 911 if necessary. 06/21/17 1536 <Electronically signed by Vivienne Murphy MD> Date Nishi Murphy MD Cosigner Signature (If Indicated): Date CC: Anya Steward DO 21-Jun-2017 [employer] Inc Decub and/or Erect Result: Comments: See Note; NOTES: [facility] Imaging Services [address] [place] [address] [employer] Decub and/or Erect MR#: [id number] Acct: [id number] Name: ERWINLALASALMA A Rep # : [id number] : 1935 F 81 From: Vanessa Berrios MD PCP: Anya Steward DO Status: [facility] ER Study: Abd Inc Decub and/or Erect Date of Exam: 06/21/17 Exam# [id number] Ordering Dr: Herbert Murphy MD STUDY: X-RAY [...] MD at 16:4 2 EST Tel Direct: [phone], Service support , CC: Anya Stewadr DO; Nishi Murphy MD Associate Professor Of Kinesiology: Signed 19-Jun-2017 Abdomen/Pelvis without Cont Result: Comments: See Note; NOTES: [facility] Imaging Services [address] [place] [address] Abdomen/Pelvis without Cont MR#: [id number] Acct: [id number] Name: SALMA DUENAS Rep #: [id number] : 1935 F 81 From: Vanessa Berrios MD PCP: Anya Steward DO Status: REG CLI Study: Abdomen/Pelvis without Cont Date of Exam: 06/19/17 Exam# [id number] Ordering Dr: Jordan Steward DO STUDY: CT [...] Berrios MD at 19:23 EST Tel Direct: [phone], Service support , CC: Anya Steward DO Associate Professor Of Kinesiology: Signed 16-Jun-2017 Chest PA and Lateral Result: Comments: See Note; NOTES: [facility] Imaging Services [address] [place] [address] Chest PA and Lateral MR#: [id number] Acct: [id number] Name: ERWINANASTASIYA REEVESMARY Hawk Rep #: [id number] : 1935 F 81 From: Ranulfo Grant MD PCP: Anya Steward DO Status: REG CLI Study: Chest PA and Lateral Date of Exam: 06/16/17 Exam# [id number] Ordering Dr: Anya Steward DO STUDY: X [...] IMPRESSION: No acute thoracic pathology. Electronically Signed: Ranlufo Grant, at 9:20 EST Tel , Service support , CC: Anya Steward DO Associate Professor Of Kinesiology: Signed 15-May-2017 [employer] Inc Decub and/or Erect Result: Comments: See Note; NOTES: [facility] Imaging Services [address] [place] [address] Abd Inc Decub and/or Erect MR#: [id number] Acct: [id number] Name: SALMA DUENAS Rep # : [id number] : 1935 F 81 From: Vishal Mendez MD PCP: Anya Steward DO Status: REG CLI Study: Abd Inc Decub and/or Erect Date of Exam: 05/15/17 Exam# [id number] Ordering Dr: Yolanda Zarco STUDY: X-RAY - [...] Vishal Mendez MD at 15:22 EDT Tel [phone], Service support , CC: [employer] REPAIRERDeeC Yolanda Zarco; Anya Steward DO Associate Professor Of Kinesiology: Signed 13-Mar-2017 Chest without Contrast Result: Comments: See Note; NOTES: [facility] Imaging Services [address] [place] [address] Chest without Contrast MR#: [id number] Acct: [id number] Name: SALMA DUENAS Rep #: [id number] : 1935 F 81 From: Vishal Mendez MD PCP: Anya Steward DO Status: REG CLI Study: Chest without Contrast Date of Exam: 03/13/17 Exam# [id number] Ordering Dr: Jarrell Kate MD UDY: CT [...] Vishal Mendez MD at 15:36 EDT Tel [phone], Service support , CC: JARRELL KATE MD; Anya Steward DO Associate Professor Of Kinesiology: Signed 21-Dec-2016 SCREENING MAMM (CAD), BILAT Result: Comments: See Note; NOTES: [facility] Imaging Services [address] [place] [address] Verdana 4d SCREENING MAMM (CAD), BILAT MR#: [id number] Acct: [id number] Name: DIANE DUENAS Rep #: [id number] : 1935 F 81 From: Vishal Mendez MD PCP: Anya Steward DO Status: [facility] Study: SCREENING MAMM (CAD), BILAT Date of Exam: 12/21/16 Exam# [id number] Ordering Dr: Anya Salguero DO MAMMOGRAPHY - [...] delay biopsy of a clinically suspicious abnormality. [id number] Electronically Signed: Vishal stack MD at 13:42 EDT Tel [phone], Service support , CC: Anya Steward DO Associate Professor Of Kinesiology: Signed 08-Dec-2016 Spine Thoracic (Routine) Result: Comments: See Note; NOTES: [facility] Imaging Services [address] [place] [address] 4d Spine Thoracic (Routine) MR#: [id number] Acct: [id number] Name: ALLEN DUENAS Rep #: [id number] : 1935 F 81 From: Arthur Barnard MD PCP: Anya Steward DO Status: [facility] CLI Study: Spine Thoracic (Routine) Date of Exam: 12/08/16 Exam# [id number] Ordering Dr: Anya Steward DO STUDY: MRI [...] Service support , CC: Anya Steward DO Associate Professor Of Kinesiology: Signed 23-Sep-2016 Chest PA and Lateral Result: Comments: See Note; NOTES: [facility] Imaging Services [address] [place] [address] [place] 4d Chest PA and Lateral MR#: [id number] Acct: [id number] Name: SALMA DUENAS Rep #: [id number] : 1935 F 80 From: Ezequiel Bradley MD PCP: Anya Steward DO Status: REG CLI Study: Chest PA and Lateral Date of Exam: 09/23/16 Exam# [id number] Ordering Dr: Anya Steward TUDY: X-RAY CHEST [...] Service support , CC: Anya Steward DO Associate Professor Of Kinesiology: Signed 05-Aug-2016 Hip 2-3 Views with Pelvis Result: Comments: See Note; NOTES: [facility] Imaging Services [address] [place] [address] [place] 4d Hip 2-3 Views with Pelvis MR#: [id number] Acct: [id number] Name: FABIO DUENAS Rep #: [id number] : 1935 F 80 From: Shamir Leigh DO PCP: Anya Steward DO Status: REG CLI Study: Hip 2-3 Views with Pelvis Date of Exam: 08/05/16 Exam# [id number] Ordering Dr: Ty Lion DO STUDY: X-RAY [...] Shamir Leigh DO at 15:17 EST Tel [phone], Service support [phone], CC: Anya Steward DO; Guicho Lion DO Associate Professor Of Kinesiology: Signed 17-Jun-2016 History and Physical Exam Result: Comments: See Note; NOTES: [facility] Medical Records Department [address] [place] [address] History and Physical 06/17/16 1432 MR#: [id number] Acct: [id number] Name: SALMA DUENAS Rep #: [id number] : 1935 80 From: Jarod Morton DO PCP: Anya Steward DO Status: REG ER Y Location: ED Problem List (1) Right femoral fracture Status: Acute Qualifiers: Encounter type: initial encounter Femur location: F Fracture type: closed Open fracture type: O Fracture morphology: F Fracture alignment: displaced Salter-Blackburn Fracture Type: S Fracture healing: F (2) SANG (ac nez perce kidney injury) Status: Acute (3) Coagulopathy Status: [...] 78.1 H Lymph % (Auto) 13.1 L Tate % (Auto) 6.4 Eos % (Auto) 1.6 [...] Urine Clarity Urine pH Ur S pecific [place] Urine Protein Urine Glucose (UA) Urine Ketones Urine Occult Blood Urine Nitrite Urine Bilirubin Urine Urobilinogen Ur Leukocyte Esterase Urine RBC Urine WBC Ur Squamous Epith Cells Urine Bacteria Urine Mucus Blood Type 06/17/16 06/17/16 06/17/16 12:15 13:15 13:50 WBC RBC Hgb Hct MCV MCH MCHC RDW RDW Differential Plt Count MPV Immature Gran % (Auto) Neut % (Auto) Lymph % (Auto) Tate % (Auto) Eos % (Auto) Baso % [...] Sl. Cloudy Urine pH 6.0 Ur Specific [place] 1.015 Urine Protein 30 H Urine Glucose [...] with Pelvis Result: Comments: See Note; NOTES: [facility] Imaging Services [address] [place] [address] Verdana 4d Hip 2-3 Views with Pelvis MR#: [id number] Acct: [id number] Name: ERWINFABIO REEVES LISA Hawk Rep #: [id number] : 1935 F 80 From: Vishal Mendez MD PCP: Anya Steward DO Status: [facility] ER Study: Hip 2-3 Views with Pelvis Date of Exam: 06/17/16 Exam# [id number] Ordering Dr: Vanessa Lucia MD STUDY: X-RAY [...] Mendez MD at 12:23 EST Tel [phone], Service support [phone], CC: Vanessa Lucia MD; Anya Steward DO Associate Professor Of Kinesiology: Signed 17-Jun-2016 Brain/Head without Contrast Result: Comments: See Note; NOTES: [facility] Imaging Services [address] [place] [address] [place] 4d Brain/Head without Contrast MR#: [id number] Acct: [id number] Name: DIANE DUENAS Rep #: [id number] : 1935 F 80 From: Vishal Mendez MD PCP: Anya Steward DO Status: REG ER Study: Brain/Head without Contrast Date of Exam: 06/17/16 Exam# [id number] Ordering Dr: Vanessa Romeo MD STUDY: CT [...] Vishal Mendez MD at 11:31 EST Tel [phone], Service support [phone], CC: Vanessa Lucia MD; Anya Steward DO Associate Professor Of Kinesiology: Signed 15-Mar-2016 Chest without Contrast Result: Comments: See Note; NOTES: [facility] Imaging Services [address] [place] [address] [place] 4d Chest without Contrast MR#: [id number] Acct: [id number] Name: SALMA DUENAS Rep #: [id number] : 1935 F 80 From: Darius Ayoub PCP: Anya Steward DO Status: REG CLI Study: Chest without Contrast Date of Exam: 03/15/16 Exam# [id number] Ordering Dr: ANYA SAVAGE STUDY: CT CHEST [...] MD at 6:39 EDT , Service support [phone], CC: KEVIN SAVAGE; Anya Steward DO Associate Professor Of Kinesiology: Signed 09-Dec-2015 PT D/C of Non Returning Pt (1) Result: Comments: See Note; NOTES: [facility] Physical [facility] [place] [id number] Fax REHABILITATION SE RVICES DISCHARGE SUMMARY MR#: [id number] Acct: [id number] Name: SALMA DUENAS Rep #: [id number] : 1935 80 From: Jarod Michelle DPT, [...] and Lateral Result: Comments: See Note; NOTES: [facility] Imaging Services [address] [place] [address] [place] 4d Chest PA and Lateral MR#: [id number] Acct: [id number] Name: SALMA MCNAMARA Rep #: [id number] : 1935 F 79 From: Vishal Mendez MD PCP: Anya Steward DO Status: REG CLI Study: Chest PA and Lateral Date of Exam: 10/07/15 Exam# [id number] Ordering Dr : Anya Steward DO STUDY: [...] Mendez MD at 15:21 EST Te l [phone], Service support [phone], 0091 RAD/Chest PA and Lateral IMPRESSION: Stable examination. No acute infiltrate is seen. Electronically Signed: Eren Mendez MD at 15:21 EST Tel [phone], Service support [phone], CC: Anya Steward DO Associate Professor Of Kinesiology: Signed 07-Oct-2015 Spirometry (22203) Comments: lil restriction but struggled to do Result: 28-Sep-2015 Inital Evaluation (1) - PT Result: Comments: See Note; NOTES: [facility] [place], [place] [address] Fax REHABILITATION SE RVICES INITIAL EVALUATION MR#: [id number] Acct: [id number] Name: SALMA DUENAS Rep #: [id number] : 1935 79 From: Jarod Michelle DPT, OCS, CSCS Referring Dr.: Anya Steward DO Statu s: REG RCR Insurance: MEDICARE PART A B Eval Date: [facility] Patient's Visit Information SALMA DUENAS is [...] turning neck.. Not overly active, goes to [employer] and out to eat. Does own ho [...] 3 Views Result: Comments: See Note; NOTES: [facility] Imaging Services [address] [place] [address] Verd[place] 4d Lumbar Spine 2 or 3 Views MR#: [id number] Acct: [id number] Name: SALMA BRYAN Rep #: [id number] : 1935 F 79 From: Vishal Mendez MD PCP: Anya Steward DO Status: REG CLI Study: Lumbar Spine 2 or 3 Views Date of Exam: 09/23/15 Exam# [id number] Brian riggs Dr: Gal Shields MD STUDY: [...] Mendez MD at 15:00 EST Te l [phone], Service support [phone], 0046 RAD/Lumbar Spine 2 or 3 Views IMPRESSION: Degenerative changes of the spine, as detailed above. 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 Electronically Signed: Vishal Mendez MD at 15:00 EST Tel [phone], Service support [phone], CC: Gal Shields MD; Anya Steward DO Associate Professor Of Kinesiology: Signed 18-Sep-2015 Cerv Spine 4 or 5 Views Result: Comments: See Note; NOTES: [facility] Imaging Services [address] [place] [address] Verdana 4d Cerv Spine 4 or 5 Views MR#: [id number] Acct: [id number] Name: SALMA SCANLON Rep #: [id number] : 1935 F 79 From: Brayden Gerardo MD PCP: Anya tSeward DO Status: REG CLI Study: Cerv Spine 4 or 5 Views Date of Exam: 09/18/15 Exam# [id number] Ordering Dr: Anya Steward DO STUDY: X-RAY [...] FACR at 20:09 EST , Service support [phone], RAD/Cerv Spine 4 or 5 Views IMPRESSION: Osteope favio. 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 Electronically Signed: Brayden Gerardo MD, FACR at 20:09 EST , Service support [phone], CC: Anya Steward DO Associate Professor Of Kinesiology: Signed 07-Sep-2015 Chest without Contrast Result: Comments: See Note; NOTES: [facility] Imaging Services [address] [place] [address] Ver[place] 4d Chest without Contrast MR#: [id number] Acct: [id number] Name: SALMA GONSALVES Rep #: [id number] : 1935 F 79 From: Ozzie Messer MD PCP: Anya Steward DO Status: REG CLI Study: Chest without Contrast Date of Exam: 09/07/15 Exam# [id number] Ordering Dr: Felix Parra MD STUDY: CT [...] at 9:57 EST Tel , Service support [phone], CC: Anya Steward DO; Felix Parra Associate Professor Of Kinesiology: Signed 07-Sep-2015 Abdomen/Pelvis without Cont Result: Comments: See Note; NOTES: [facility] Imaging Services [address] [place] [address] [place] 4d Abdomen/Pelvis without Cont MR#: [id number] Acct: [id number] Name: SALMA DUENAS Rep #: [id number] : 1935 F 79 From: Ozzie Messer MD PCP: Anya Steward DO Status: REG CLI Study: Abdomen/Pelvis without Cont Date of Exam: 09/07/15 Exam# [id number] Or dering Dr: Felix Parra MD STUDY: [...] at 9:54 EST Tel , Service support [phone], CC: Anya Steward DO; Felix Parra Associate Professor Of Kinesiology: Signed 29-Jun-2015 EKG (56725) Comments: nsr no acute chg Result: [MEASUREMENTS ANALYSIS] Date of Test: 06/29/2015 14:05:21; Heart Rate: 66; AL Interval: 180; QRS: 98; QT Interval: 406; Corrected QT Interval (QTc): 416; P Wave Amity: 37; QRS Wave Amity: -7; T Wave Amity: 12; Blood Pressure: 120/78 [ECG DIAGNOSTIC STATEMENTS] Date of Test: 06/29/2015 14:05:21; Summary: Sinus Rhythm WITHIN NORMAL LIMITS 12-Jun-2015 Emergency Department Summary Result: Comments: See Note; NOTES: [facility] Medical Records Department [address] [place] [address] Emergency Department Summary MR#: [id number] Acct: [id number] Name: SALMA DUENAS Rep #: [id number] : 1935 79 From: Octavio Kate MD PCP: Anya Steward DO Status: [facility] ER DATE OF SERVICE: 06/09/2015 CHIEF COMPLAINT: Right arm fistula, possibly c lotted or obstructed. HISTORY OF PRESENT ILLNESS: A 79-year-old female with history of known renal insufficiency never need dialysis 2 years ago with a concern that she ____ right arm fistula placed at the [facility]. It has been doing well. Today, [...] edema with strong radial pulse. Norm al microfiche duplicator strength, touch sensation in the right arm, hand. EMERGENCY DEPARTMENT COURSE: I did do screening labs on the patient. She is on Coumadin. Her INR is 1.6 and subtherapeutic. Also her analytical chemistry teacher ry panel was unremarkable other than a [...] C: Anya Canela T: LETICIA J OB: [id number] 06/12/15 0846 <Electronically signed by Octavio Kate MD> Date Octavio Kate MD Cosigner Signature (If Indicated): Date CC: Anya Steward DO Date Dictated: 06/09/151352 Date Transcribed: 06/09/151352 Associate Professor Of Kinesiology: Signed 09-Jun-2015 Discharge Instruction Result: Comments: See Note; NOTES: [facility] Medical Records Department [address] [place] [address] Discharge Instruction 06/09/151352 MR#: [id number] Acct: [id number] Name: SALMA DUENAS Rep #: [id number] : 1935 79 From: Octavio Kate MD [...] problems, contact your doctor. Call [facility] ([phone]) or report to the closest Emergency Room. Call 911 if necessary. 06/09/15 1526 <Electronically signed by Octavio Kate MD> Date Octavio sarkar MD Cosigner Signature (If Indicated): Date CC: Anyacolin Steward 21-Apr-2015 PT Discharge Summary Result: Comments: See Note; NOTES: [facility] [address] [place] [address]. [address] [place] [address] Fax REHABILITATION SERVICES DISCHARGE SUMMARY MR#: [id number] Acct: [id number] Name: SALMA DUENAS Rep #: [id number] : 1935 79 From: Brandi Mares Referring Dr.: Gal Shields MD Status: DIS RCR Eval Date: Sandra gamboa Date: 04/20/15 DATE OF SERVICE: DATE OF SERVICE: April 20, 2015 This patient was referred to physical therapy by Dr. Shields with a diagnosis of back pain. She has [facility] a total of 10 visits. [...] goals have been met. Oswestry equals 16%, X2675-PV, P7661-GR. I am discharging her to independent home exercise p martha at this time and she is agreeable to discharge. Brandi Mares, PT T: NTS JOB: [id number] <Electronically signed by Brandi Mares > 04/21/15 1419 CC: Anya Steward DO Signed 20-Mar-2015 Inital Evaluation - PT Result: Comments: See Note; NOTES: [facility] [address] [place] [address] Fax REHABILITATION SERVICES INITIAL EVALUATION MR#: [id number] Acct: [id number] Name: ERWINJORDENELIASSALMA A Rep #: [id number] : 1935 79 From: Brandi Mares Referring Dr.: Gal Shields MD Status: REG R Insurance: 9facts [address] Date: [facility] DATE OF SERVICE: 03/19/2015 SUBJECTIVE: This [...] when she goes out. Oswestry equals 26%, T7027-RT, B2225-QK. PLAN: We plan to see this patient ____ times a week x10 visits for lumbar soft tissue mobilization as needed, dynamic lumbar stabilization exercise instruction, posture correction, instr uction in proper body mechanics for ADLs and bilateral lower extremity strengthening. She was agreeable with this plan of care. Brandi Mares, PT T: NTS JOB: [id number] <Electronically s igned by Brandi Mares > 03/20/15 0940 CC: Signed For Medicare only, by signing this I certify the plan of care. Physicians Signature Date 16-Jan-2015 Chest without Contrast Result: Comments: See Note; NOTES: [facility] Imaging Services [address] [place] [address] CAT Scan Report MR#: [id number] Acct: [id number] Name: SALMA DUENAS Rep #: : 1935 F 79 From: Ozzie Messer MD PCP: Anya Steward DO Status: REG CLI Study: Chest without Contrast Date of Exam: 01/16/15 Exam# [id number] Ordering Dr: Anya Steward DO STUDY: CT [...] at 16:01 EDT Tel , Service support [phone], CC: Anya Steward DO Associate Professor Of Kinesiology: Signed 15-Jan-2015 Bone Scan Whole Body Result: Comments: See Note; NOTES: [facility] Imaging Services [address] [place] [address] Nuclear Medicine Report MR#: [id number] Acct: [id number] Name: SALMA DUENAS #: [id number] : 1935 F 79 From: Iván Hearn DO PCP: Anya Steward DO Status: REG CLI Study: Bone Scan Whole Body Date of Exam: 01/15/15 Exam# [id number] Ordering Dr: Anya Steward DO CLINICAL: 79-year-old [...] Iván Hearn DO at 16:30 EDT Tel [phone], Service support [phone], Fax CC: Anya Steward DO Associate Professor Of Kinesiology: Signed 14-Jan-2015 Chest PA and Lateral Result: Comments: See Note; NOTES: [facility] Imaging Services [address] [place] [address] Radiology Report MR#: [id number] Acct: [id number] Name: SALMA DUENSA Rep #: [id number] : 1935 F 79 From: Sushil Benedict DO PCP: Anya Steward DO Status: REG CLI Study: Chest PA and Lateral Date of Exam: 01/14/15 Exam# [id number] Ordering Dr: Anya Steward DO STUDY: X-RAY [...] 2 3:58 EDT Tel , Service support [phone], RAD/Chest PA and Lateral IMPRESSION: Chronic appearing lung changes. Focal density in the right uppe r lobe adjacent to surgical staple line may represent a parenchymal scar. The previously identified right-sided rib fractures are not clearly visualized on this examination. Diffuse osteopenia, wi th findings of previous vertebroplasty. Electronically Signed: Sushil Benedict DO at 23:58 EDT Tel , Service support [phone], CC: Anya Steward DO Associate Professor Of Kinesiology: Signed 15-Dec-2014 Ribs Uni Min 3V w/PA Chest Result: Comments: See Note; NOTES: [facility] Imaging Services [address] [place] [address] Radiology Report MR#: [id number] Acct: [id number] Name: SALMA DUENAS Rep #: [id number] : 1935 F 79 From: Adal Kelly MD PCP: Anya Steward DO Status: REG CLI Study: Ribs Uni Min 3V w/PA Chest Date of Exam: 12/15/14 Exam# [id number] Ordering Dr: Anya Steward STUDY: X-RAY - [...] Borderline cardiac enlargement. 4. Left chest wall Jlzbeu-g-Iiwt in place. 5. Prior cement augmentation of the T8 and T1 1 vertebra. Electronically Signed: Louis Kelly MD at 20:09 EDT , Service support [phone], RAD/Ribs Uni Min 3V w/PA C hest IMPRESSION: RIBS: Fractures of the anterolateral right fifth and sixth ribs. CHEST: 1. Prior right upper lobectomy. Surgical clips also seen in the right axilla/upper arm. 2. Chronic interst itial changes in the lungs. 3. Borderline cardiac enlargement. 4. Left chest wall Mtaikm-g-Yugo in place. 5. Prior cement augmentation of the T8 and T11 vertebra. Electronically Signed: Louis meyers MD at 20:09 EDT , Service support [phone], CC: Anya Steward DO Associate Professor Of Kinesiology: Signed 02-Dec-2014 Dexa Bone Density Study (HP) Result: Comments: See Note; NOTES: [facility] Imaging Services [address] [place] [address] Bone Density Report MR#: [id number] Acct: [id number] Name: SALMA DUENAS Rep # : [id number] : 1935 F 79 From: Vishal Mendez MD PCP: Anya Steward DO Status: REG CLI Study: Dexa Bone Density Study (HP) Date of Exam: 12/02/14 Exam# [id number] Ordering Dr: Anya Steward DO STUDY: DUAL [...] Vishal Mendez MD at 9:28 EDT Tel [phone], Service sup port [phone], CC: Anya Steward DO Associate Professor Of Kinesiology: Signed 24-Oct-2014 Hip min 2 Views Result: Comments: See Note; NOTES: [facility] Imaging Services [address] [place] [address] Radiology Report MR#: [id number] Acct: [id number] Name: SALMA DUENAS Rep #: [id number] : 1935 F 78 From: Dave Castanon MD PCP: Anya Steward DO Status: PRE CLI Study: Hip min 2 Views Date of Exam: 10/24/14 Exam# [id number] Ordering Dr: Felix Parra MD STUDY: X- [...] MD at 19:29 EDT , Service support [phone], CC: Anya Steward DO; Felix Parra Associate Professor Of Kinesiology: Signed 20-Oct-2014 Inital Evaluation - PT Result: Comments: See Note; NOTES: [facility] Physical Therapy [address] [place] [address] Fax REHABILITATION SERVICES INITIAL EVALUATION MR#: [id number] Acct: [id number] Name: SALMA DUENAS Rep #: [id number] : 1935 78 From: Mary Lou Hinkle [...] Mary Lou Hinkle DPT T: LETICIA JOB: [id number] &#60 ;Electronically signed by Mary Lou Hinkle > 10/20/14 1514 CC: Signed For Medicare only, by signing this I certify the plan of care. ____ Physicians Signature Date 26-May-2014 Lumbar Spine 2 or 3 Views Result: Comments: See Note; NOTES: [facility] Imaging Services [address] [place] [address] Radiology Report MR#: [id number] Acct: [id number] Name: SALMA DUENAS Rep #: [id number] : 1935 F 78 From: Shamir Leigh DO PCP: Anya Steward DO Status: REG CLI Study: Lumbar Spine 2 or 3 Views Date of Exam: 05/26/14 Exam# [id number] Ordering Dr: Gal Shields MD S [facility]: X-RAY - LUMBAR SPINE REASON FOR EXAM: [...] Shamir Leigh DO at 16:47 EDT Tel [phone], Service support [phone], CC: Gla Shields MD; Anya Steward DO Associate Professor Of Kinesiology: Signed 26-May-2014 Thoracic Spine 3 Views Result: Comments: See Note; NOTES: [facility] Imaging Services [address] [place] [address] Radiology Report MR#: [id number] Acct: [id number] Name: ERWINSALMA REEVES Rep #: : 1935 F 78 From: Federico Galeas DO PCP: Anya Steward DO Status: REG CLI Study: Thoracic Spine 3 Views Date of Exam: 05/26/14 Exam# [id number] Ordering Dr: Gal Shields MD STUDY: X-RAY [...] of T8 and T11. Electronically Signed: Federico Galesa DO at 19:00 EDT Tel [phone], Service support [phone], CC: Gal Shields MD; Anya Steward DO Associate Professor Of Kinesiology: Signed 26-May-2014 Thoracic Spine 3 Views Result: Comments: See Note; NOTES: [facility] Imaging Services [address] [place] [address] Radiology Report MR#: [id number] Acct: [id number] Name: ERWINJORDENELIASSALMA A Rep #: : 1935 F 78 From: Federico Galeas DO PCP: Anya Steward DO Status: REG CLI Study: Thoracic Spine 3 Views Date of Exam: 05/26/14 Exam# [id number] Ordering Dr: Gal Shields MD ADDENDU M by Federico Galeas DO on 05/26/14 at 1902 ADDENDUM ADDENDUM: When compared to a study from April 29, 2014, there is increasing compression of T7, and especially T6 segment. 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 Vertebroplasty of T8 and T11. Electronically Signed: Federico DO Adal at 19:00 EDT Tel [phone], Service support [phone], CC: Gal Shields MD; Ayna Steward DO Associate Professor Of Kinesiology: Signed 19-May-2014 Upper GI w/BA Swallow Result: Comments: See Note; NOTES: [facility] Imaging Services [address] [place] [address] Radiology Report MR#: [id number] Acct: [id number] Name: SALMA DUENAS Rep #: [id number] : 1935 F 78 From: Vishal Mendez MD PCP: Anya Steward DO Status: REG CLI Study: Upper GI w/BA Swallow Date of Exam: 05/19/14 Exam# [id number] Ordering Dr: Felix Parra MD STUDY: X-RAY [...] Vishal Mendez MD at 14:20 EDT Tel [phone], Service support [phone], STUDY: AIR-CONTRAST UP PER GI SERIES. REASON [...] Vishal Mendez MD at 14:21 EDT Tel [phone], Service support [phone], CC: Anya Steward DO; Felix Parra Associate Professor Of Kinesiology: Signed 29-Apr-2014 Lumbar Spine 2 or 3 Views Result: Comments: See Note; NOTES: [facility] Imaging Services [facility] [place] [address] Radiology Report MR#: [id number] Acct: [id number] Name: SALMA DUENAS Rep #: : 1935 F 78 From: Marshall Chandler MD PCP: Anya Steward DO Status: REG CLI Study: Lumbar Spine 2 or 3 Views Date of Exam: 04/29/14 Exam# [id number] Ordering Dr: Gal Shields MD STUDY: X-RAY [...] MD at 23:47 EDT , Service support [phone], CC: Gal Shields MD; Anya Steward DO Associate Professor Of Kinesiology: Signed 29-Apr-2014 Thoracic Spine 3 Views Result: Comments: See Note; NOTES: [facility] Imaging Services [address] [place] [address] Radiology Report MR#: [id number] Acct: [id number] Name: SALMA DUENAS Rep #: [id number] : 1935 F 78 From: Marshall Chandler MD PCP: Anya Steward DO Status: [facility] CLI Study: Thoracic Spine 3 Views Date of Exam: 04/29/14 Exam# [id number] Ordering Dr: Gal Shields MD STUDY: X-RAY [...] MD at 0:37 EDT , Service support [phone], CC: Gal Shields MD; Anya Steward DO Associate Professor Of Kinesiology: Signed 28-Apr-2014 PET/CT Tumor Base -Thigh Subs Result: Comments: See Note; NOTES: [facility] Imaging Services [address] [place] [address] PET Scan Report MR#: [id number] Acct: [id number] Name: SALMA DUENAS Rep #: [id number] : 1935 F 78 From: Iván Hearn DO PCP: Anya Steward DO Status: REG CLI Study: PET/CT Tumor Base -Thigh Subs Date of Exam: 04/28/14 Exam# [id number] Ordering Dr: Felix Parra MD INDICATIONS: A [...] aneurysm formation. Coronary arterial calcification is observed. Myki-I-Hggr-MediPort placement is noted. 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 Comments: 06/01/11, 10/28/11 Status: Active Non Smoker/No Tobacco Use Status: Inactive Smoking Status Name Dates Details Never smoker Vital Signs Date Test Result Details 91-Lbs-789802:53 Temperature 97.7 f Comments: Method: Temporal Pulse [...] :44 Comments: hearing [facility] eye doc in [place] and had a glaucoma test done Pulse [...] Value Details :12 Rapid Strep Test, Office (19301) Rapid Strep Test, Office Negative (Normal) :03 CBC W/Diff, Automated Comments: [facility] [address] [place], [place], [address] Absolute Lymph 1.28 {X10_3/ul} (Normal) Range: 0.83-4.51 [...] 4.2-5.4 WBC 7.4 K/mm3 (Normal) Range: 4.4-11.0 42-Rdv-844285:03 Ferritin Comments: Is Patient Taking Vitamins or Folic Acid Supplements? [facility] [address] [place], [place], [address] FERRITIN 119 ng/mL (Normal) Range: 8-252 37-Zxx-308055:03 Folates, (Folic Acid) Comments: Is Patient Taking Vitamins or Folic Acid Supplements? [facility] [address] [place], [address] FOLATES > 100.00 ng/mL (Abnormal) Range: 3.1-55.4 32-Szb-749518:03 Iron+Iron Binding Capacity Comments: Is Patient Taking Vitamins or Folic Acid Supplements? [facility] [address] [place], [place], [address] IRON SATURATION 26.1 % (Normal) Range: 15.0-55.0 IRON 70 ug/dL (Normal) Range: 50-170 TIBC 268 ug/dL (Normal) Range: 250-450 43-Nwy-550194:03 Protein+Creatinine Ratio,Urine Comments: [facility] [address] [place], [address] PROT:CRE RATIO 488 {mg/g_CRE} (Abnormal) Range: 0-200 PROTEIN,UR.RAN. 84.9 mg/dL (Abnormal) UR CREAT 174.00 mg/dL (Normal) 29-Lgr-064488:03 PTHIN 25.1 pg/mL (Normal) Comments: [facility] [address], [address] Range: 18.4-80.1 39-Hpz-967569:03 Renal Profile Comments: Is Patient Taking Vitamins or Folic Acid Supplements? [facility] [address] [place], [place], [address] CO2 17.0 mmol/L (Abnormal) Range: 21.0-32.0 CL [...] Comments: Please note revised GLUCOSE reference range xndjsoywl86/02/2018. 67-Lil-043853:03 Vitamin B12 673 pg/mL (Normal) Comments: [facility] [address], [address] Range: 211-911 25-Nvy-380974:03 Vitamin D,25 Hydroxy Comments: [facility] [address] [place], [address] Vitamin D 25-OH 30.2 ng/mL (Normal) Range: 29.95-100.01 Comments: Vitamin D 25(OH) Status Range Deficiency <20 ng/mL (50nmol/L) Insuffciency 20 - 30 ng/mL (50 - 75 nmol/L) Sufficiency 30 - 100 ng/mL (75 - 250 nmol/L) Toxicity >100 ng/mL (>250 nmol/L) 43-Llb-879439:24 URINE ANURAG CULTURE-TYSON COL Comments: PATIENT NOT FASTINGPERFORMED BY: [facility] Esybkr4878 [facility] [id number] Information: SRC:UC COUNT (79251) Antimicrobial MIHEAD (Normal) Comments: S = Susceptible; [...] and Proteusmirabilis. Urine Final report Culture,Comprehensive (Abnormal) 86-Xdh-582449:03 Urinalysis, Office (98992) UA - LEUKOCYTE ESTERASE Large (Normal) UA - NITRITE Negative (Normal) URINE UROBILINGN TYSON TIMED Normal mg/dL (Normal) UA - PROTEIN 100 mg/dL (Normal) UA - PH 6 (Abnormal) UA - SPECIFIC GRAVITY 1.030 (Abnormal) UA - KETONES Negative mg/dL (Normal) UA - BILIRUBIN Negative (Normal) UA - GLUCOSE Negative (Normal) 5-Lgh-663156:30 URINE ANURAG CULTURE-IDENTIFICATN Comments: PATIENT NOT FASTINGPERFORMED BY: [facility] Lzxiwb3176 [facility] [id number] Information: SRC:EVERETT (48063) Antimicrobial MIHEAD (Normal) Comments: S = Susceptible; [...] and Proteusmirabilis. Urine Final report Culture,Comprehensive (Abnormal) 2-Tge-992610:22 Urinalysis, Office (71973) UA - LEUKOCYTE ESTERASE Large (Normal) UA - NITRITE Positive (Normal) URINE UROBILINGN TYSON TIMED Normal mg/dL (Normal) UA - PROTEIN 300 mg/dL (Normal) UA - PH 6 (Abnormal) UA - BLOOD Hemolyzed Large (Normal) UA - SPECIFIC GRAVITY 1.030 (Abnormal) UA - KETONES Negative mg/dL (Normal) UA - BILIRUBIN Negative (Normal) UA - GLUCOSE Negative (Normal) 1-Jyc-611455:06 CBC W/Diff, Automated Comments: Reason for Laboratory Test [facility] [address] [place], [place], [address] Absolute Lymph 1.45 {X10_3/ul} (Normal) Range: 0.83-4.51 [...] 4.2-5.4 WBC 6.8 K/mm3 (Normal) Range: 4.4-11.0 2-Ghr-449906:06 Comprehensive Metabolic Profil Comments: Reason for Laboratory Test OVSerial Specimen #1, #2 or #3? 1[facility] [address] [place], [address] GAP 8 (Normal) Range: 5-15 CO2 22.0 [...] Comments: Please note revised GLUCOSE reference range cyudtdqja16/02/2018. 4-Ayu-481265:06 LDH 141 U/L (Normal) Comments: Reason for Laboratory Test OVSerial Specimen #1, #2 or #3? [facility] [address] [place], [address] Range: 84-246 34-Zvl-210638:23 Metabolic Panel, Basic Comments: assure GFR is in this [panel if not do separately; PATIENT NOT FASTINGPERFORMED BY: [facility]6370 [facility] [id number] (78953) Calcium 9.9 mg/dL (Normal) Range: 8.7-10.3 Carbon [...] 8-27 Glucose 80 mg/dL (Normal) Range: 65-99 15-Tnw-408209:48 Metabolic Panel, Comprehensive Comments: PATIENT NOT FASTINGPERFORMED BY: [facility]6370 [facility] [id number] (60575) ALT (SGPT) 8 [iU]/L (Normal) Range: 0-32 [...] 8-27 Glucose 89 mg/dL (Normal) Range: 65-99 83-Bmv-279871:48 C-REACTIVE PROTEIN (63115) Comments: PATIENT NOT FASTINGPERFORMED BY: [facility]6370 [facility] [id number] C-Reactive Protein, Quant 5.1 mg/L (Abnormal) Range: 0.0-4.9 45-Fvg-406145:48 Sed Rate Erythrocyte (93288) Comments: PATIENT NOT FASTINGPERFORMED BY: [facility] [id number] Sedimentation Rate-Westergren 4 mm/h (Normal) Range: 0-40 70-Lqh-350326:48 CBC W/AUTO DIFF WBC (55003) Comments: PATIENT NOT FASTINGPERFORMED BY: [facility]6370 [facility] [id number] Immature Grans (Abs) 0.0 {x10E3/uL} (Normal) Range: [...] 3.77-5.28 WBC 10.3 {x10E3/uL} (Normal) Range: 3.4-10.8 95-Hbd-178152:59 CBC-Complete Blood Cnt No Diff Comments: [facility] [address] [facility] [address] [place], [place], [phone] MPV 10.2 fL (Normal) Range: 6.2-12.0 PLT [...] 4.2-5.4 WBC 6.2 K/mm3 (Normal) Range: 4.4-11.0 77-Wze-532672:59 Magnesium Comments: [facility] [address] [facility] [place], [address] MG 2.1 mg/dL (Normal) Range: 1.6-2.6 35-Qtg-120565:59 Microalb:Creat Ratio,Random UR Comments: [facility] [address] [place], [address] MALB:CREAT 27.0 {mg/g_CRE} (Normal) MICROALBUMIN,UR 44.5 mg/L (Normal) UR CREAT 165.00 mg/dL (Normal) 66-Fvf-133051:59 PTHIN 32.8 pg/mL (Normal) Comments: [facility] [address] [place], [address] Range: 18.4-80.1 14-Fjd-312917:59 Renal Profile Comments: [place] [address] [address] [place], [address] CO2 21.0 mmol/L (Normal) Range: 21.0-32.0 CL [...] Comments: Please note revised GLUCOSE reference range uzlbxfgre74/02/2018. 80-Ixi-770357:59 Vitamin D,25 Hydroxy Comments: [facility] [address] [place], [address] Vitamin D 25-OH 35.5 ng/mL (Normal) Range: 29.95-100.01 Comments: Vitamin D 25(OH) Status Range Deficiency <20 ng/mL (50nmol/L) Insuffciency 20 - 30 ng/mL (50 - 75 nmol/L) Sufficiency 30 - 100 ng/mL (75 - 250 nmol/L) Toxicity >100 ng/mL (>250 nmol/L) 8-Pxg-577812:33 CBC-Complete Blood Cnt No Diff Comments: [facility] [address] [place], [address] MPV 10.1 fL (Normal) Range: 6.2-12.0 [...] 4.2-5.4 WBC 6.4 K/mm3 (Normal) Range: 4.4-11.0 6-Rbp-521272:33 Magnesium Comments: [facility] [address] [place], [address] MG 1.8 mg/dL (Normal) Range: 1.8-2.4 1-Hwz-814273:33 Microalb:Creat Ratio,Random UR Comments: [facility] [address] [place], [address] MALB:CREAT 24.8 {mg/g_CRE} (Normal) MICROALBUMIN,UR 41.4 mg/L (Normal) UR CREAT 167.00 mg/dL (Normal) 9-Pls-497456:33 PTHIN 8.3 pg/mL (Abnormal) Comments: [facility] [address] [place], [address] Range: 18.4-80.1 Comments: Please Note: PTH INTACT METHOD AND REFERENCE RANGE CHANGEEffective 07/19/2017. 8-Kqm-431004:33 Renal Profile Comments: [facility] [address] [place], [address] CO2 25.0 mmol/L (Normal) Range: 21.0-32.0 CL [...] 7-18 GLU 89 mg/dL (Normal) Range: 70-110 7-Pom-420161:33 Vitamin D,25 Hydroxy Comments: [facility] [address] [place], [address] Vitamin D 25-OH 50.6 ng/mL (Normal) Comments: Vitamin D 25(OH) Status Range Deficiency <20 ng/mL (50nmol/L) Insuffciency 20 - 30 ng/mL (50 - 75 nmol/L) Sufficiency 30 - 100 ng/mL (75 - 250 nmol/L) Toxicity >100 ng/mL (>250 nmol/L) 1-Rub-016487:30 CBC W/Diff, Automated Comments: [facility] [address], [address] ; [place] Absolute Lymph 1.75 [...] 4.2-5.4 WBC 5.6 K/mm3 (Normal) Range: 4.4-11.0 7-Gme-468112:30 Prothrombin Time w/INR Comments: [facility] [address] [place], [place], [address] INR 1.3 (Normal) PROTIME 15.2 s (Abnormal) Range: 11.7-14.9 16-Qiu-999349:49 CBC W/Diff, Automated Comments: [facility] [address], [address] Absolute Lymph 1.42 {X10_3/ul} (Normal) [...] 4.2-5.4 WBC 4.9 K/mm3 (Normal) Range: 4.4-11.0 02-Dxo-624224:43 Prothrombin Time w/INR Comments: Reason for Laboratory Test [facility] [address] [facility] [place], [address] INR 1.1 (Normal) PROTIME 13.6 s (Normal) Range: 11.7-14.9 71-Cmo-583388:06 MAGNESIUM (67219) Comments: PATIENT NOT FASTINGPERFORMED BY: [facility]buryRybsru3372 [facility] [id number] Magnesium, Serum 1.8 mg/dL (Normal) Range: 1.6-2.3 88-Pkd-072326:06 METABOLIC PANEL, COMPREHENSIVE Comments: PATIENT NOT FASTINGPERFORMED BY: [facility]6370 [facility] [id number] ([id number]) ALT (SGPT) 11 [iU]/L (Normal) Range: 0-32 [...] Glucose, Serum 109 mg/dL (Abnormal) Range: 65-99 68-Qwk-976756:53 Metabolic Panel, Basic Comments: PATIENT NOT FASTINGPERFORMED BY: [facility]6370 [facility] [id number] ([id number]) Calcium, Serum 8.7 mg/dL (Normal) Range: 8.7-10.3 [...] Glucose, Serum 80 mg/dL (Normal) Range: 65-99 06-Ryg-022253:32 Basic Metabolic Profile (BMP) Comments: Order Date: 07/11/17Order Info: 0667-1 - BMPOur [facility] [address]gmtaedz[address] [place], [place], [address] GAP 9 (Normal) Range: 5-15 CO2 26.0 [...] 7-18 GLU 78 mg/dL (Normal) Range: 70-110 04-Xtw-401315:32 Prothrombin Time w/INR Comments: Order Date: 07/11/17Order Info: 6301-6 - PTOur [facility] [address]qxuk[address] [place], [address] INR 1.3 (Normal) PROTIME 15.4 s (Abnormal) Range: 11.7-14.9 :52 CBC W/Diff, Automated Comments: Reason for Laboratory Test .[facility] [address] [place], [address] Absolute Lymph 0.61 {X10_3/ul} (Abnormal) [...] Test .Serial Specimen #1, #2 or #3? 1[facility] [address]tyqbwl[address] [place], [place], [address] GAP 12 (Normal) Range: 5-15 CO2 24.0 [...] 7-18 GLU 69 mg/dL (Abnormal) Range: 70-110 3-Duo-629503:52 LDH 214 U/L (Normal) Comments: Reason for Laboratory Test .Serial Specimen #1, #2 or #3? 1[facility] [address]em[address] [place], [place], [address] Range: 84-246 9-Stx-377001:13 Prothrombin Time w/INR Comments: Reason for Laboratory Test COUMADINOur [facility] Of [facility] Lmwuvakpwc[address] [place], [place], [address] INR 1.9 (Normal) PROTIME 21.1 s (Abnormal) Range: 11.7-14.9 59-Dxi-407999:00 Basic Metabolic Profile (BMP) Comments: [facility] [address]fm[address] [place], [place], [address] GAP 10 (Normal) Range: 5-15 CO2 20.0 [...] 7-18 GLU 80 mg/dL (Normal) Range: 70-110 57-Jph-700778:00 CBC W/Diff, Automated Comments: [facility] By[address]kb[address] [place], [place], [address] Absolute Lymph 0.82 {X10_3/ul} (Abnormal) Range: 0.83-4.51 [...] 4.2-5.4 WBC 16.6 K/mm3 (Abnormal) Range: 4.4-11.0 94-Akc-236184:00 Prothrombin Time w/INR Comments: [facility] Mferxhngjn[address] [place], [place], [address] INR 2.3 (Normal) PROTIME 24.0 s (Abnormal) Range: 11.7-14.9 37-Hgg-330340:45 Basic Metabolic Profile (BMP) Comments: 'TROP' Serial specimen #1, #2, #3, or #4: 1[facility] Tyotsvmkrk[address] [place], [place], [address] GAP 13 (Normal) Range: 5-15 CO2 18.0 [...] Range: 70-110 :45 CBC W/Diff, Automated Comments: [facility] [address]vnpzlo[address] [place], [place], [address] SMEAR COMMENT SCANNED (Normal) Absolute Lymph 1.14 [...] #2, #3, or #4: 1[facility] Gn[address]ogt[address], [address] LIPASE 189 U/L (Normal) Range: 73-393 72-Dsd-757610:45 Liver Profile Comments: 'TROP' Serial specimen #1, #2, #3, or #4: [address] [place] [address] [place], [address] D BILI 0.13 mg/dL (Normal) [...] T PROT 6.8 g/dL (Normal) Range: 6.4-8.2 17-Upf-122607:45 Troponin-I Comments: 'TROP' Serial specimen #1, #2, #3, or #4: [address] [place] [address] [place], [place], [address] TROPONIN-I < 0.02 ng/mL Comments: TROPONIN-I EXPECTED VALUES <0.05 NEGATIVE 0.06 - 0.59 AT RISK OF NH > OR = 0.60 SUGGEST NH (Normal) LDH 156 [iU]/L (Normal) Comments: PATIENT NOT FASTINGPERFORMED BY: [facility] Yiwpbr0851 PaizSquidbidECU Health [id number] Information: HARD DRAW 4:49 Range: 119-226 Written Authorization WAR (Normal) Comments: PATIENT NOT FASTINGPERFORMED BY: [facility] Dsxhzi7545 [facility] [id number] 4:49 Comments: Written Authorization Received.Authorization received from Rambo STEWARD [id number] by Supriya Cutler 86-Bzp-348783:49 FIBRIN DEGRAD D-DIM TYSON Comments: PATIENT NOT FASTINGPERFORMED BY: [employer] Rtadtl9677 PaizSquidbidECU Health [id number] (12644) D-Dimer 0.75 {mg/L_FEU} (Abnormal) Range: 0.00-0.49 Comments: According to the assay manager search engine's published package insert, anormal (<0.50 mg/L FEU) D-dimer result in conjunction with a non-highclinical probability assessment, excludes deep vein thrombosis (D VT)and pulmonary embolism (PE) with high sensitivity. .D-dimer values increase with age and this can make VTE exclusion ofan older pop ulation difficult. To address this, the [employer], based on best available evidence [...] 0.80 mg/L FEU. :49 CREATINE KINASE TOTAL (25356) Comments: PATIENT NOT FASTINGPERFORMED BY: [employer] Cuczzf9394 [facility] [id number] Creatine Kinase,Total,Serum 75 U/L (Normal) Range: 24-173 63-Vcx-556773:49 Troponin I (90176) Comments: PATIENT NOT FASTINGPERFORMED BY: [employer] Vyuzmt6335 [facility] HospitalShoppableECU Health [id number] Troponin I <0.01 ng/mL (Normal) Range: 0.00-0.04 :49 CALCIFIDIOL (76002) VIT D 25 Comments: PATIENT NOT FASTINGPERFORMED BY: [employer] Sgysro2627 [facility] [id number] Vitamin D, 25-Hydroxy 44.5 ng/mL (Normal) Range: 30.0-100.0 Comments: Vitamin D deficiency has been defined by the [place] ofMedicine and an Endocrine Society practice guideline as alevel of serum 25-OH vitamin D less than 20 ng/mL (1,2).The Endocrine Society went on to further define vitamin Dinsufficiency as a level between 21 and 29 ng/mL (2).1. IOM ([place] of Medicine). 2010. Dietary reference intakes for calcium and D. [place]: The National Academies Press.2. Lluvia MF, Wade WING, Tanner VENEGAS, et al. Evaluation, treatment, and prevention of vitamin D deficiency: an Endocrine Society clinical practice guideline. JCEM. 2010; 96(7):1911-30. :49 Folate (37432) Comments: PATIENT NOT FASTINGPERFORMED BY: CB [facility] Sjcxnz9993 Paiz RoadDublin [place] [id number] Folate (Folic Acid), Serum >20.0 ng/mL (Normal) Comments: A serum folate concentration of less than 3.1 ng/mL isconsidered to represent clinical deficiency. 07-Nil-382841:49 VITAMIN B-12 (CYANOCOBALAMIN) Comments: PATIENT NOT FASTINGPERFORMED BY: CB [facility] Jmjpsk6742 Paiz RoadDublin [place] [id number] (54581) Vitamin B12 1257 pg/mL (Abnormal) Range: 211-946 :49 TSH (00549) Comments: PATIENT NOT FASTINGPERFORMED BY: CB [facility] Yqwrru9515 Paiz RoadDublin [place] [id number] TSH 3.740 {uIU/mL} (Normal) Range: 0.450-4.500 :49 SED RATE ERYTHROCYTE (18654) Comments: PATIENT NOT FASTINGPERFORMED BY: CB [facility] Kgribn1130 Paiz RoadDublin [place] [id number] Sedimentation Rate-Westergren 68 mm/h (Abnormal) Range: 0-40 :49 METABOLIC PANEL, Comments: PATIENT NOT FASTINGPERFORMED BY: CB [facility] Dbdkxj6882 Paiz RoadDublin [place] [id number] Information: HARD DRAW COMPREHENSIVE (12783) ALT (SGPT) 13 [iU]/L (Normal) Range: 0-32 [...] Glucose, Serum 86 mg/dL (Normal) Range: 65-99 04-Jju-579068:49 C-REACTIVE PROTEIN (18134) Comments: PATIENT NOT FASTINGPERFORMED BY: LabCoInspira Medical Center WoodburyYeoszy3719 [facility] [id number] C-Reactive Protein, Quant 39.7 mg/L (Abnormal) Range: 0.0-4.9 :49 CBC (AUTO) (02286) Comments: PATIENT NOT FASTINGPERFORMED BY: LabCoInspira Medical Center WoodburyKjdjev1096 [facility] [id number] Platelets 289 {x10E3/uL} (Normal) Range: 150-379 RDW 14.1 % (Normal) Range: 12.3-15.4 MCHC 33.8 g/dL (Normal) Range: 31.5-35.7 MCH 28.8 pg (Normal) Range: 26.6-33.0 MCV 85 fL (Normal) Range: 79-97 Hematocrit 30.8 % (Abnormal) Range: 34.0-46.6 Hemoglobin 10.4 g/dL (Abnormal) Range: 11.1-15.9 RBC 3.61 {x10E6/uL} (Abnormal) Range: 3.77-5.28 WBC 7.4 {x10E3/uL} (Normal) Range: 3.4-10.8 14-Pnm-63247:53 Prothrombin Time w/INR Comments: Reason for Laboratory Test [facility] CAMPUSADINOur [facility] [address]kpps[address], [address] INR 3.0 (Normal) PROTIME 30.2 s (Abnormal) Range: 11.7-14.9 89-Low-838907:29 URINE ANURAG CULTURE-IDENTIFICATN Comments: PATIENT NOT FASTINGPERFORMED BY: [facility] Cwvhpm5850 [facility] [id number] Information: SRC: ([id number]) Result 1 MUG (Normal) Comments: Mixed urogenital flora1,000 Colonies/mL Urine Culture,Comprehensive Final report (Normal) 53-Eme-169089:12 Urinalysis, Office (08345) UA - LEUKOCYTE ESTERASE Negative (Normal) UA - NITRITE Negative (Normal) URINE UROBILINGN TYSON TIMED Normal mg/dL (Normal) UA - PROTEIN 30 mg/dL (Normal) UA - PH 6 (Abnormal) UA - BLOOD non-hemolyzed trace (Normal) UA - SPECIFIC GRAVITY 1.020 (Normal) UA - KETONES Negative mg/dL (Normal) UA - BILIRUBIN Negative (Normal) UA - GLUCOSE Negative (Normal) 97-Nzu-050813:45 CBC W/Diff, Auto - EPLAB Comments: At [facility] Medical Oncologypatients receive CBC w/auto Differential ONLY. Physicianwill place an order for a manual differential or Pathologistreview at his discretion. [facility] OUTPATIENT [facility]. [address] [place] [address] INTERNATIONAL RELATIONS TEACHER: OMERO ZAMUDIO DO PH:[phone] Lady Of Mercy Hospital [facility] Mdbbcymgzf40[address] [place], [address] Absolute Lymph 1.02 {X10_3/uL} (Normal) [...] 4.2-5.4 WBC 6.9 K/mm3 (Normal) Range: 4.4-11.0 05-Iyt-282727:32 LDH 182 U/L (Normal) Comments: Reason for Laboratory Test OFFICE VISIT/ROUTINESerial Specimen #1, #2 or #3? 1W[facility] [address]ckkpfjz68[address] [place], [address] Range: 84-246 28-Wdz-114273:32 Prothrombin Time w/INR Comments: Reason for Laboratory Test ROUTINE MEDICATION CHECKWAdams County Hospital [address]cqxmbbh98[address] [place], [address] INR 2.6 (Normal) PROTIME 27.2 s (Abnormal) Range: 11.7-14.9 80-Vkp-505270:24 CBC W/Diff, Auto - EPLAB Comments: Reason for Laboratory Test .At [facility] Medical Oncologypatients receive CBC w/auto Differential ONLY. Physicianwill place an order for a manual differential or Pathologistrev Only iew at his discretion. [facility]. [address] [place] [address] [address] INTERNATIONAL RELATIONS TEACHER: OMERO ZAMUDIO DO PH:[phone] Carmel Health System [address]qmsl[address] [place], [address] Absolute Lymph 2.94 {X10_3/uL} (Normal) [...] 4.2-5.4 WBC 8.3 K/mm3 (Normal) Range: 4.4-11.0 82-Lgc-607019:24 Comprehensive Metabolic Profil Comments: Reason for Laboratory Test .[facility] [address]php[address] [place], [address] GAP 7 (Normal) Range: 5-15 [...] 7-18 GLU 77 mg/dL (Normal) Range: 70-110 7-Oxn-720876:31 CBC W/Diff, Auto - EPLAB Only Comments: [facility] [address]vbtiat[address] [place], [place], [address] Absolute Lymph 1.22 {X10_3/uL} (Normal) Range: 0.83-4.51 [...] K/mm3 (Normal) Range: 4.4-11.0 :31 Ferritin Comments: [address] [place], [address] FERRITIN 77 ng/mL (Normal) Range: 8-252 :31 Iron+Iron Binding Capacity Comments: [address] [place], [phone] IRON SATURATION 20.8 % (Normal) Range: 15.0-55.0 IRON 61 ug/dL (Normal) Range: 50-170 TIBC 293 ug/dL (Normal) Range: 250-450 :31 Magnesium Comments: [address] [place], [address] MG 1.9 mg/dL (Normal) Range: 1.8-2.4 1-Jvm-446061:31 Microalb:Creat Ratio,Random UR Comments: [address] [place], [address] MALB:CREAT 15.2 {mg/g_CRE} (Normal) MICROALBUMIN,UR 19.0 mg/L (Normal) UR CREAT 125.00 mg/dL (Normal) :31 PTH,INTACT Comments: [address] [place], [address] PTH,Intact 8 pg/mL (Abnormal) Range: 14-72 5-Lhd-799493:31 Renal Profile Comments: [facility] [address] [place], [address] CO2 21.0 mmol/L (Normal) Range: 21.0-32.0 CL [...] 7-18 GLU 92 mg/dL (Normal) Range: 70-110 3-Wpc-283407:31 Vitamin D,25 Hydroxy Comments: [facility] [address] [place], [address] Vitamin D 25-OH 33.0 ng/mL (Normal) Comments: Vitamin D 25(OH) Status Range Deficiency <20 ng/mL (50nmol/L) Insuffciency 20 - 30 ng/mL (50 - 75 nmol/L) Sufficiency 30 - 100 ng/mL (75 - 250 nmol/L) Toxicity >100 ng/mL (>250 nmol/L) 2-Gmc-137714:30 Prothrombin Time w/INR Comments: Reason for Laboratory Test .[facility] [address] [place], [address] INR 3.0 (Normal) PROTIME 30.0 s (Abnormal) Range: 11.7-14.9 65-Oqg-262312:19 Basic Metabolic Profile (BMP) Comments: [facility] [address]afreuqn[address] [place], [place], [address] GAP 6 (Normal) Range: 5-15 CO2 23.0 [...] 7-18 GLU 101 mg/dL (Normal) Range: 70-110 4-Ynw-332939:17 Prothrombin Time w/INR Comments: Reason for Laboratory Test .[facility] [address]oc[address] [place], [place], [address] INR 2.3 (Normal) PROTIME 24.3 s (Abnormal) Range: 11.7-14.9 42-Rty-930540:18 Prothrombin Time w/INR Comments: Send Results To: .Reason for Laboratory Test .[facility] [address] [place], [place], [address] INR 2.0 (Normal) PROTIME 21.7 s (Abnormal) Range: 11.7-14.9 5-Taa-401786:48 Prothrombin Time w/INR Comments: Reason for Laboratory Test OFFICE VISITWooMelody Ville [address] [place], [place], [address] INR 1.6 (Normal) PROTIME 18.7 s (Abnormal) Range: 11.7-14.9 73-Nzc-904030:08 CBC W/Diff, Automated Comments: [facility] [address] [place], [address] Absolute Lymph 1.22 {X10_3/ul} (Normal) [...] 4.2-5.4 WBC 6.4 K/mm3 (Normal) Range: 4.4-11.0 06-Bjh-556762:01 Comprehensive Metabolic Profil Comments: Order Date: 10/25/16Order Info: 0786-1 - *CMP Complete Metabolic PanelWAdams County Hospital [address]tiyvstx[address] [place], [place], [address] GAP 6 (Normal) Range: 5-15 CO2 23.0 [...] 7-18 GLU 83 mg/dL (Normal) Range: 70-110 55-Lnx-506499:01 Prothrombin Time w/INR Comments: Order Date: 10/25/16Order Info: 6301-6 - *Prothrombin Time (PT)[facility] [address] [place], [place], [address] INR 1.4 (Normal) PROTIME 16.8 s (Abnormal) Range: 11.7-14.9 0-Qya-705495:44 Prothrombin Time w/INR Comments: [facility] [address] [place], [place], [address](723) INR 1.8 (Normal) PROTIME 20.4 s (Abnormal) Range: 11.7-14.9 57-Qyn-734844:35 Prothrombin Time w/INR Comments: Reason for Laboratory Test ROUTINE CHECKReason for Laboratory Test ROUTINE CHECKReason for Laboratory Test ROUTINE CHECKWAdams County Hospital [address]elhbbb[address] [place], [address] INR 1.9 (Normal) PROTIME 21.4 s (Abnormal) Range: 11.7-14.9 :52 C-REACTIVE PROTEIN (83420) Comments: PATIENT NOT FASTINGPERFORMED BY: [facility] Taorbx0345 [facility] [id number] C-Reactive Protein, Quant 2.2 mg/L (Normal) Range: 0.0-4.9 :52 SED RATE ERYTHROCYTE (48085) Comments: PATIENT NOT FASTINGPERFORMED BY: LabCoInspira Medical Center WoodburyUbhyvp7615 [facility] [id number] Sedimentation Rate-[facility] Hospitalren 51 mm/h (Abnormal) Range: 0-40 :52 CBC W/AUTO DIFF WBC (12162) Comments: PATIENT NOT FASTINGPERFORMED BY: [facility] Pgtcir8486 [facility] [id number] Immature Grans (Abs) 0.0 {x10E3/uL} (Normal) Range: [...] 3.77-5.28 WBC 5.4 {x10E3/uL} (Normal) Range: 3.4-10.8 9-Mbx-195893:30 Prothrombin Time w/INR Comments: Reason for Laboratory Test MONITORINGReason for Laboratory Test MONITORINGReason for Laboratory Test MONITORINGWAdams County Hospital [address]wacouqsj4[address], [address] INR 1.9 (Normal) PROTIME 21.4 s (Abnormal) Range: 11.7-14.9 4-Yis-595769:22 CBC W/Diff, Auto - Comments: GETS CBCD,CRP,CMP,SED RATE,TSH,B12,VITDDR.RHEA GETS CBCD,PROCRER,PTH,VITD,MG,RENALDRBEREKET GETS CBCD,CRP,CMP,SED RATE,TSH,B12,VITDDR.RHEA GETS CBCD,PROCRER,PTH,VITD,MG,RENALAt [facility] Outpatient Ce EPLAB Only nter [facility] Medical Oncologypatients receive CBC w/auto Differential ONLY. Physicianwill place an order for a manual differential or Pathologistreview at his discretion. [facility]. [address] [place] [address] [address] INTERNATIONAL RELATIONS TEACHER: OMERO ZAMUDIO DO PH:[phone] County Hospital [address]bnwhplw[address], [address] Absolute Lymph 0.99 {X10_3/uL} (Normal) [...] 4.2-5.4 WBC 6.1 K/mm3 (Normal) Range: 4.4-11.0 6-Owt-404680:22 Comprehensive Metabolic Comments: GETS CBCD,CRP,CMP,SED RATE,TSH,B12,VITDDR.RHEA GETS CBCD,PROCRER,PTH,VITD,MG,RENALWAdams County Hospital [address]rpvgu[address] [place], [place], [address] Profil GAP 9 (Normal) Range: 5-15 CO2 [...] 7-18 GLU 87 mg/dL (Normal) Range: 70-110 5-Adc-199061:22 CRP Comments: GETS CBCD,CRP,CMP,SED RATE,TSH,B12,VITDDR.RHEA GETS CBCD,PROCRER,PTH,VITD,MG,[facility] [address] [place], [place], [address](148) C-REACTIVE PROT 10.40 mg/L (Abnormal) Range: 0.0-3.0 Comments: C-Reactive Protein (CRP) provides useful information for thediagnosis, therapy and monitoring of inflammatory processesand associated diseases. For the evaluation of Relative Riskfor Cardiovascular Dise ase, a High Sensitivity CRP (HSCRP)should be ordered. 4-Cph-434579:22 Erythrocyte Sed Rate Comments: GETS CBCD,CRP,CMP,SED RATE,TSH,B12,VITDDR.RHEA GETS CBCD,PROCRER,PTH,VITD,MG,[facility] [address] [place], [address](537 SED RATE 91 mm/h (Abnormal) Range: 0-30 1-Esw-645518:22 Magnesium Comments: GETS CBCD,CRP,CMP,SED RATE,TSH,B12,VITDDR.RHEA GETS CBCD,PROCRER,PTH,VITD,MG,[facility] [address] [place], [address] MG 1.9 mg/dL (Normal) Range: 1.8-2.4 0-Bpd-147813:22 Phosphorus Comments: GETS CBCD,CRP,CMP,SED RATE,TSH,B12,VITDDR.RHEA GETS CBCD,PROCRER,PTH,VITD,MG,[facility] [address] [place], [place], [address](806) PHOS 3.5 mg/dL (Normal) Range: 2.5-4.9 3-Wff-484356:22 Protein+Creatinine Comments: GETS CBCD,CRP,CMP,SED RATE,TSH,B12,VITDDR.RHEA GETS CBCD,PROCRER,PTH,VITD,MG,[facility] [address] [place], [place], [address](560) Ratio,Urine PROT:CRE RATIO 383 {mg/g_CRE} (Abnormal) Range: 0-200 PROTEIN,UR.RAN. 61.3 mg/dL (Abnormal) UR CREAT 160.00 mg/dL (Normal) 3-Mrq-247692:22 PTH,INTACT Comments: GETS CBCD,CRP,CMP,SED RATE,TSH,B12,VITDDR.RHEA GETS CBCD,PROCRER,PTH,VITD,MG,RENALOur Lady Of Mercy Hospital [facility] [address] [place], [place], [address](826) PTH,Intact 25 pg/mL (Normal) Range: 14-72 1-Zto-107700:22 Thyroid Stim Hormone Comments: GETS CBCD,CRP,CMP,SED RATE,TSH,B12,VITDDR.RHEA GETS CBCD,PROCRER,PTH,VITD,MG,[facility] [address] [place], [place], [address](000 (TSH) TSH 2.60 {uIU/mL} (Normal) Range: 0.358-3.74 9-Sbh-507846:22 Vitamin B12 1286 pg/mL (Abnormal) Comments: GETS CBCD,CRP,CMP,SED RATE,TSH,B12,VITDDR.RHEA GETS CBCD,PROCRER,PTH,VITD,MG,RENALOur Lady Of Mercy Hospital [facility] [address]uxolh[address] [place], [address] Range: 211-911 5-Rdp-271549:22 Vitamin D,25 Hydroxy Comments: GETS CBCD,CRP,CMP,SED RATE,TSH,B12,VITDDR.RHEA GETS CBCD,PROCRER,PTH,VITD,MG,[facility] [address] [place], [address] Vitamin D 25-OH 45.2 ng/mL (Normal) Comments: Vitamin D 25(OH) Status Range Deficiency <20 ng/mL (50nmol/L) Insuffciency 20 - 30 ng/mL (50 - 75 nmol/L) Sufficiency 30 - 100 ng/mL (75 - 250 nmol/L) Toxicity >100 ng/mL (>250 nmol/L) 22-Dhc-958630:40 Prothrombin Time w/INR Comments: Order Date: 06/20/16Order Info: 6301-6 - *Prothrombin Time (PT)Order Date: 06/20/16Order Info: 6301-6 - *Prothrombin Time (PT)Order Date: 06/20/16Order Info: 6301-6 - *Prothrombin Time (PT)[facility] [address]ibezxp[address] [place], [address] INR 1.9 (Normal) PROTIME 21.3 s (Abnormal) Range: 11.7-14.9 49-Vkj-806174:48 Prothrombin Time w/INR Comments: Order Date: 10/25/16Order Info: 6301-6 - *Prothrombin Time (PT)Order Date: 10/25/16Order Info: 6301-6 - *Prothrombin Time (PT)Order Date: 10/25/16Order Info: 6301-6 - *Prothrombin Time (PT)[facility] [address]nmh[address] [place], [id number] INR 2.1 (Normal) PROTIME 22.5 s (Abnormal) Range: 11.7-14.9 02-Ylf-306326:34 CBC W/Diff, Auto - EPLAB Comments: Order Date: 07/13/16Order Info: 0184-1E - *CBC w/Diff - oncology ONLYOrder Date: 07/13/16Order Info: 0184- 1E - *CBC w/Diff - oncology ONLYAt [facility] [place] Medical Oncologypatients Only receive CBC w/auto Differential ONLY. Physicianwill place an order for a manual differential or Pathologistreview at his discretion. [facility] OUTPATIENT [facility]. [address] [place] [address] [address] INTERNATIONAL RELATIONS TEACHER: OMERO ZAMUDOI DO PH:[phone] Date: 07/13/16Order Info: 0786-1 - *CMP Complete Metabolic PanelWAdams County Hospital [address]wwpex[address] [place], [place], [address] Absolute Lymph 1.04 {X10_3/uL} (Normal) Range: 0.83-4.51 [...] 4.2-5.4 WBC 5.3 K/mm3 (Normal) Range: 4.4-11.0 01-Bob-964151:34 Comprehensive Metabolic Profil Comments: Order Date: 07/13/16Order Info: 0786-1 - *CMP Complete Metabolic PanelFER, IRON, IBC ADDED PER FAXED ORDEROrder Date: 07/13/16Order Info: 0786-1 - *[facility] Complete Metabolic PanelWOhioHealth [facility]ide [facility] [address]vn[address] [place], [place], [address] GAP 6 (Normal) Range: 5-15 CO2 24.0 [...] <126 mg/dLsuggests IMPAIRED HOMEOSTASIS per A.D.A. criteria. 82-Shx-773051:34 Ferritin Comments: Order Date: 07/13/16Order Info: 0786-1 - *CMP Complete Metabolic PanelFER, IRON, IBC ADDED PER FAXED ORDEROrder Date: 07/13/16Order Info: 0786-1 - *CMP Complete Metabolic PanelWOhioHealth [facility] [id number] [place], [address] FERRITIN 134 ng/mL (Normal) Range: 8-252 07-Owm-[id number]:34 Iron+Iron Binding Capacity Comments: Order Date: 07/13/16Order Info: 0786-1 - *CMP Complete Metabolic PanelFER, IRON, IBC ADDED PER FAXED ORDEROrder Date: 07/13/16Order Info: 0786-1 - *CMP Complete Metabolic PanelWOhio[facility] [id number] [place], [address] IRON SATURATION 21.6 % (Normal) Range: 15.0-55.0 IRON 60 ug/dL (Normal) Range: 50-170 TIBC 278 ug/dL (Normal) Range: 250-450 07-Htq-[id number]:34 Prothrombin Time w/INR Comments: Order Date: 09/27/16Order Info: 6301-6 - *Prothrombin Time (PT)Order Date: 09/27/16Order Info: 6301-6 - *Prothrombin Time (PT)Order Date: 07/13/16Order Info: 0786-1 - *CMP Complete Met[facility] PanelWTri[facility] [id number], [id number] INR 1.8 (Normal) PROTIME 20.0 s (Abnormal) Range: 11.7-14.9 60-Grz-331147:15 Prothrombin Time w/INR Comments: Order Date: 09/13/16Order Info: 6301-6 - *Prothrombin Time (PT)Comments: PT/INROrder Date: 09/13/16Order Info: 6301-6 - *Prothrombin Time (PT)Comments: PT/INROrder Date: 09/13/16Order Info: 6301-6 - * Prothrombin Time (PT)Comments: [facility]RWAd[facility] [id number] [place], [address] INR 2.0 (Normal) PROTIME 21.9 s (Abnormal) Range: 11.7-14.9 09-Jqp-293581:23 Protein+Creatinine Ratio,Urine Comments: [facility] [id number]. [place], [address] PROT:CRE RATIO 426 {mg/g_CRE} (Abnormal) Range: 0-200 PROTEIN,UR.RAN. 77.6 mg/dL (Abnormal) UR CREAT 182.00 mg/dL (Normal) 63-Iym-601864:20 Magnesium Comments: [facility] [id number] [address] Niño. [place], [address] MG 1.8 mg/dL (Normal) Range: 1.8-2.4 89-Rex-643859:20 PTH,INTACT Comments: [facility] [id number] [address] Niño. [place], [address] PTH,Intact 112 pg/mL (Abnormal) Range: 14-72 73-Giq-604996:20 Renal Profile Comments: [facility] [id number] [address] Niño. [place], [address] CO2 20.0 mmol/L (Abnormal) Range: 21.0-32.0 CL [...] 7-18 GLU 75 mg/dL (Normal) Range: 70-110 87-Rhe-362344:20 Vitamin D,25 Hydroxy Comments: [facility] [address]miw[address] [place], [place], [address] Vitamin D 25-OH 64.2 ng/mL (Normal) Comments: Vitamin D 25(OH) Status Range Deficiency <20 ng/mL (50nmol/L) Insuffciency 20 - 30 ng/mL (50 - 75 nmol/L) Sufficiency 30 - 100 ng/mL (75 - 250 nmol/L) Toxicity >100 ng/mL (>250 nmol/L) 87-Vcl-972026:11 Prothrombin Time w/INR Comments: Order Date: 08/30/16Order Info: 6301-6 - *Prothrombin Time (PT)Comments: PT/INROrder Date: 08/30/16Order Info: 6301-6 - *Prothrombin Time (PT)Comments: PT/INROrder Date: 08/30/16Order Info: 6301-6 - * Prothrombin Time (PT)Comments: PT/INRWAdams County Hospital Fhzujqqxxg6696 [facility] [place], [place], [address] INR 2.0 (Normal) PROTIME 22.0 s (Abnormal) Range: 11.7-14.9 1-Xzp-759595:04 Prothrombin Time w/INR Comments: Order Date: 08/30/16Order Info: 6301-6 - *Prothrombin Time (PT)Comments: PT/INROrder Date: 08/30/16Order Info: 6301-6 - *Prothrombin Time (PT)Comments: PT/INROrder Date: 08/30/16Order Info: 6301-6 - * Prothrombin Time (PT)Comments: PT/INROur [facility] [address]uyyrexlx[address] [place], [place], [address] INR 2.7 (Normal) PROTIME 27.5 s (Abnormal) Range: 11.7-14.9 63-Jcn-116798:14 Prothrombin Time w/INR Comments: Order Date: 08/16/16Order Info: 6301-6 - *Prothrombin Time (PT)Order Date: 08/16/16Order Info: 6301-6 - *Prothrombin Time (PT)Order Date: 08/16/16Order Info: 6301-6 - *Prothrombin Time (PT)[facility] [address] [place], [place], [address] INR 3.7 (Abnormal) Comments: CRITICAL VALUE REPEATED AND VERIFIED. [facility] IZRFNQWZ95/31/17 1442 Genevieve Shin.RESULTS READ BACK BY SAME . PROTIME 35.5 s (Abnormal) Range: 11.7-14.9 10-Oby-142384:29 Prothrombin Time w/INR Comments: Order Date: 08/10/16Order Info: 6301-6 - *Prothrombin Time (PT)Comments: PT/INROrder Date: 08/10/16Order Info: 6301-6 - *Prothrombin Time (PT)Comments: PT/INROrder Date: 08/10/16Order Info: 6301-6 - * Prothrombin Time (PT)Comments: PT/INRWAdams County Hospital [address] [place], [place], [address](286) INR 2.4 (Normal) PROTIME 25.5 s (Abnormal) Range: 11.7-14.9 44-Jen-572530:12 Prothrombin Time w/INR Comments: Order Date: 08/02/16Order Info: 6301-6 - *Prothrombin Time (PT)Order Date: 08/02/16Order Info: 6301-6 - *Prothrombin Time (PT)Order Date: 08/02/16Order Info: 6301-6 - *Prothrombin Time (PT)[facility] [address] [place], [place], [address](921) INR 2.3 (Normal) PROTIME 24.3 s (Abnormal) Range: 11.7-14.9 77-Bsi-540144:35 CBC W/Diff, Auto - EPLAB Comments: Order Date: 07/13/16Order Info: 0184-1E - *CBC w/Diff - oncology ONLYOrder Date: 07/13/16Order Info: 0184- 1E - *CBC w/Diff - oncology ONLYAt [facility] Medical Oncologypatients Only receive CBC w/auto Differential ONLY. Physicianwill place an order for a manual differential or Pathologistreview at his discretion. [facility]. [address] [place] [address] [address] INTERNATIONAL RELATIONS TEACHER: OMERO ZAMUDIO DO PH:[phone] Date: 07/13/16Order Info: 0786-1 - *CMP Complete Metabolic PanelWAdams County Hospital [address]krher[address] [place], [address] Absolute Lymph 1.16 {X10_3/uL} (Normal) Range: 0.83-4.51 [...] 4.2-5.4 WBC 6.5 K/mm3 (Normal) Range: 4.4-11.0 92-Zdn-784382:35 Comprehensive Metabolic Profil Comments: Order Date: 07/13/16Order Info: 0786-1 - *CMP Complete Metabolic PanelOrder Date: 07/13/16Order Info: 0786-1 - *CMP Complete Metabolic PanelWAdams County Hospital [address]jj[address] [place], [address] GAP 9 (Normal) Range: 5-15 CO2 21.0 [...] 7-18 GLU 78 mg/dL (Normal) Range: 70-110 12-Fqr-149204:35 Prothrombin Time w/INR Comments: Order Date: 07/13/16Order Info: 6301-6 - *PT/INROrder Date: 07/13/16Order Info: 6301-6 - *PT/INROrder Date: 07/13/16Order Info: 0786-1 - *CMP Complete Metabolic PanelWAdams County Hospital Laborat [address] [place], [place], [address](179) INR 2.1 (Normal) PROTIME 22.8 s (Abnormal) Range: 11.7-14.9 72-Lgy-480781:21 Ferritin Comments: [facility] [address] [facility] [address] [place], [place], [address] FERRITIN 196 ng/mL (Normal) Range: 8-252 93-Ulm-049118:21 Iron+Iron Binding Capacity Comments: [facility] [address] [place], [address] IRON SATURATION 18.8 % (Normal) Range: 15.0-55.0 IRON 48 ug/dL (Abnormal) Range: 50-170 TIBC 256 ug/dL (Normal) Range: 250-450 :48 CBC, PLATELETS & AUT DIFF Comments: Send to Je Parra; PATIENT NOT FASTINGPERFORMED BY: LabCoInspira Medical Center WoodburyZokmmo3501 [facility] [id number] ([id number]) Immature Grans (Abs) 0.0 {x10E3/uL} (Normal) Range: [...] to Je Parra; PATIENT NOT FASTINGPERFORMED BY: LabMira Designs6370 [facility] [id number] ([address]192) ALT (SGPT) 7 [iU]/L (Normal) Range: 0-32 [...] Glucose, Serum 92 mg/dL (Normal) Range: 65-99 02-Doc-960955:48 PT (Prothrobim Time) (00856) Comments: Send to Dorinda Parra; PATIENT NOT FASTINGPERFORMED BY: LabCoVIRTRA SYSTEMSKuewxs8947 [facility]Community [facility] [id number] Prothrombin Time 34.0 {sec} (Abnormal) Range: 9.1-12.0 INR 3.4 (Abnormal) Range: 0.8-1.2 Comments: Reference interval is for non-anticoagulated patients. . Suggested INR therapeutic range for Vitamin K anta gonist therapy: Standard Dose (moderate intensity therapeutic range): 2.0 - 3.0 Higher intensity therapeutic range 2.5 - 3.5 58-Kbh-418678:37 Basic Metabolic Profile (BMP) Comments: Order Date: 07/12/16Order Info: 0667-1 - BMPOrder Info: 81696-2 - IBCOrder Info: 2276-4 - FEROrder Date: 07/12/16Order Info: 2276-4 - FERComments: to Dr. Felix Dorsey [facility] eozq[address] [place], [address] GAP 8 (Normal) Range: 5-15 CO2 20.0 [...] 7-18 GLU 104 mg/dL (Normal) Range: 70-110 21-Sta-779352:37 CBC W/Diff, Automated Comments: Order Date: 07/12/16Order Info: 0184-1 - CBCDComments: to Dr. Felix Mohamud Date: 07/12/16Order Info: 0184- 1 - CBCDComments: to Dr. Felix Mohamud Date: 07/12/16Order Info: 2276-4 - FERComments : [facility] Q[address]cddly[address] [place], [address] Absolute Lymph 1.04 {X10_3/ul} (Normal) [...] 4.2-5.4 WBC 6.6 K/mm3 (Normal) Range: 4.4-11.0 41-Rdt-645910:37 Iron+Iron Binding Capacity Comments: Order Date: 07/12/16Order Info: 0667-1 - BMPOrder Info: 92479-5 - IBCOrder Info: 2276-4 - FEROrder Date: 07/12/16Order Info: 2276-4 - FERComments: to Felix [facility] Labora f[address] [place], [address] IRON 40 ug/dL (Abnormal) Range: 50-170 IRON SATURATION 12.5 % (Abnormal) Range: 15.0-55.0 TIBC 321 ug/dL (Normal) Range: 250-450 :37 Prothrombin Time w/INR Comments: Order Date: 07/12/16Order Info: 6301-6 - PTOrder Date: 07/12/16Order Info: 6301-6 - PTOrder Date: 07/12/16Order Info: 2276-4 - [facility] Dvkjreics[address] [place], [place], [phone] INR 2.2 (Normal) PROTIME 24.0 s (Abnormal) Range: 11.7-14.9 :37 FERRITIN (10363) Comments: to Dr. Felix Parra; Order Date: 07/12/16Order Info: 0667-1 - BMPOrder Info: 83421-1 - IBCOrder Info: 2276-4 - FEROrder Date: 07/12/16Order Info: 2276-4 - FERComments: [facility] Dr. [facility] Pprboiizsd[address], [address] FERRITIN 311 ng/mL (Abnormal) Range: 8-252 57-Ppg-100850:50 Urinalysis, Complete Comments: Order Date: 06/17/16Has pt arrived? YOrder Date: 06/17/16Has pt arrived? YHow was Urine Obtained? 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 Cloudy (Normal) COLOR Yellow (Normal) 56-Unb-497900:15 Partial Thromboplast Time Comments: REDRAW. PREVIOUS SPECIMEN REJECTED DUE TOCONTAMINATED WITH HEPARIN FROM PORT DRAW. 06/17/[address] [place] [address].CRITICAL VALUE REPEATED AND VERIFIED. CALLED TO NUXREQEBKUKES46/18/16 1255 Raul Watts.R ESULTS READ BACK BY SAME .[facility] [address] [place], [place], [address] PTT 71.1 s (Abnormal) Range: 24.1-36.2 66-Koq-103001:15 Prothrombin Time w/INR Comments: REDRAW. PREVIOUS SPECIMEN REJECTED DUE TOCONTAMINATED WITH HEPARIN FROM PORT DRAW. 06/17/16 [facility].CRITICAL VALUE REPEATED AND VERIFIED. CALLED TO RYAUJWMYEWGOG05/18/16 1255 Raul Watts.R ESULTS READ BACK BY SAME .[facility] [address]fft[address]gdp[address] [place], [place], [phone] INR 4.0 (Abnormal) PROTIME 37.5 s (Abnormal) Range: 11.7-14.9 24-Yuw-053214:30 Basic Metabolic Profile (BMP) Comments: [facility] [address]or[address] [place], [place], [address] GAP 15 (Normal) Range: 5-15 CO2 17.0 [...] 7-18 GLU 92 mg/dL (Normal) Range: 70-110 48-Tqb-597351:30 CBC W/Diff, Automated Comments: [facility] [address], [address] Absolute Lymph 0.82 {X10_3/ul} (Abnormal) Range: 0.83-4.51 [...] 4.2-5.4 WBC 6.3 K/mm3 (Normal) Range: 4.4-11.0 37-Gwd-971549:29 URINE ANURAG CULTURE-IDENTIFICATN Comments: PATIENT NOT FASTINGPERFORMED BY: [facility] Gponan0451 [facility] [id number] Information: SRC:EVERETT (68478) Result 1 Lactobacillus species Comments: 50,000-100,000 colony forming units per mLSusceptibility not normally performed on this organism. (Normal) Urine Final report (Normal) Culture,Comprehensive 56-Pao-870768:02 Urinalysis, Office (48079) UA - LEUKOCYTE ESTERASE Large (Normal) UA - NITRITE Negative (Normal) URINE UROBILINGN TYSON TIMED 2 mg/dL (Normal) UA - PROTEIN 100 mg/dL (Normal) UA - PH 6.0 (Normal) UA - BLOOD Hemolyzed Trace (Normal) UA - SPECIFIC GRAVITY 1.025 (Normal) UA - KETONES Negative mg/dL (Normal) UA - BILIRUBIN Negative (Normal) UA - GLUCOSE Negative (Normal) 46-Sch-581737:24 Prothrombin Time w/INR Comments: CRITICAL VALUE REPEATED AND VERIFIED. CALLED TO [facility]08/16/15 1438 Raul Watts.RESULTS READ BACK BY MARTA .[facility] [address]sc[address] [place], [place], [phone](644) INR 3.8 (Abnormal) Comments: CRITICAL VALUE REPEATED AND VERIFIED. CALLED TO06/16/16 1438 Raul Watts.RESULTS READ BACK BY . PROTIME 36.1 s (Abnormal) Range: 11.7-14.9 6-Zaw-735816:17 Prothrombin Time w/INR Comments: [facility] [address] [place], [place], [address](772) INR 2.1 (Normal) PROTIME 23.1 s (Abnormal) Range: 11.7-14.9 0-Dct-823663:16 CBC W/Diff, Auto - EPLAB Comments: SPECIMEN OBTAINED FROM LINE DRAWAt [facility] Medical Oncologypatients receive CBC w/auto Differential ONLY. Physicianwill place an order for a manual differential or Pathologis Only treview at his discretion. [facility] OUTPATIENT [facility]. [address] [place] [address] [address] INTERNATIONAL RELATIONS TEACHER: OMERO ZAMUDIO DO PH:[phone] HealthCare Main Campus Otkvmbawdr[address] [place], [address] Absolute Lymph 1.13 {X10_3/uL} (Normal) [...] 4.2-5.4 WBC 5.0 K/mm3 (Normal) Range: 4.4-11.0 3-Gkc-772328:16 Comprehensive Metabolic Profil Comments: Order Date: 03/09/16Interface Comments: Reason:Order Date: 03/09/16erial Specimen #1, #2 or #3? 1WAd[facility] [address]pxaywb[address], [address] GAP 9 (Normal) Range: 5-15 [...] 7-18 GLU 92 mg/dL (Normal) Range: 70-110 8-Uya-128357:16 Ferritin Comments: Order Date: 03/09/16Interface Comments: Reason:Order Date: 16Serial Specimen #1, #2 or #3? [address] [place] [address] [address], [address] FERRITIN 120 ng/mL (Normal) Range: 8-252 4-Mgh-991336:16 Iron Comments: Order Date: 03/09/16Interface Comments: Reason:Order Date: 16Serial Specimen #1, #2 or #3? [address] [place] [address] Avucecljlv[address], [address] IRON 107 ug/dL (Normal) Range: 50-170 1-Htt-189361:16 Iron Binding Capacity,Total Comments: Order Date: 03/09/16Interface Comments: Reason:Order Date: 03/09/16Serial Specimen #1, #2 or #3? [address] [place] [address] X[address]ltvkihq[address] [place], [address] TIBC 287 ug/dL (Normal) Range: 250-450 1-Kmu-284266:16 LDH 174 U/L (Normal) Comments: Order Date: 03/09/16Interface Comments: Reason:Order Date: 03/09/16Serial Specimen #1, #2 or #3? [address] [place] [address] [place], [address] Range: 84-246 4-Njt-622227:16 Uric Acid Comments: Order Date: 03/09/16Interface Comments: Reason:Order Date: 03/09/16Serial Specimen #1, #2 or #3? 1[facility] [address]ovgx[address] [place], [address] URIC 6.2 mg/dL (Abnormal) Range: 2.6-6.0 Comments: The drugs N-Acetylcysteine and Metamizole may falsely deressthis assay. 51-Vku-097375:27 Prothrombin Time w/INR Comments: Order Date: 05/13/16Order Info: 6301-6 - *Prothrombin Time (PT)Comments: PT/INROrder Date: 05/13/16Order Info: 6301-6 - *Prothrombin Time (PT)Comments: PT/INRWSelect Medical Specialty Hospital [facility]ron17[address] [place], [address] INR 3.1 (Normal) PROTIME 31.0 s (Abnormal) Range: 11.7-14.9 23-Ajb-786227:35 URINE ANURAG CULTURE-IDENTIFICATN Comments: PATIENT NOT FASTINGPERFORMED BY: [facility] Dehgkj4306 [facility] [id number] Information: SRC:EVERETT (31636) Antimicrobial MIHEAD (Normal) Comments: S = Susceptible; [...] primarily for treating urinary tract infections. (CLSI, N831-X67,2009) Urine Culture,Comprehensive Final report (Abnormal) 92-Rbr-851605:29 Urinalysis, Office (62592) UA - LEUKOCYTE ESTERASE Large (Normal) UA - NITRITE Negative (Normal) URINE UROBILINGN TYSON TIMED Normal mg/dL (Normal) UA - PROTEIN 30 mg/dL (Normal) UA - PH 6.0 (Normal) Comments: 5.5 UA - BLOOD non-hemolyzed trace (Normal) UA - SPECIFIC GRAVITY 1.025 (Normal) UA - KETONES Negative mg/dL (Normal) UA - BILIRUBIN Negative (Normal) UA - GLUCOSE Negative (Normal) 00-Jsi-407443:23 Prothrombin Time w/INR Comments: Order Date: 05/09/16Order Date: 05/09/16[facility] [address] [place], [address] INR 1.8 (Normal) PROTIME 20.7 s (Abnormal) Range: 11.7-14.9 32-Epa-517337:26 Prothrombin Time w/INR Comments: Order Date: 05/04/16Order Date: 05/04/16[facility] [address]ism[address], [address] INR 1.8 (Normal) PROTIME 19.9 s (Abnormal) Range: 11.7-14.9 04-May-20169:31 Prothrombin Time w/INR Comments: CRITICAL VALUE REPEATED AND VERIFIED. CALLED TO [facility] Zulma Watts.RESULTS READ BACK BY MARTA .[facility] [address], [phone] INR 4.4 (Abnormal) PROTIME 40.4 s (Abnormal) Range: 11.7-14.9 :44 CBC W/Diff, Auto - EPLAB Comments: At [facility] Medical Oncologypatients receive CBC w/auto Differential ONLY. Physicianwill place an order for a manual differential or Pathologistreview at his discretion. [facility] OUTPATIENT [facility]. [address] [place] [address] [place] [address] INTERNATIONAL RELATIONS TEACHER: OMERO ZAMUDIO DO PH:[phone] Lady Of Mercy Hospital [facility] [address] [place], [place], [phone](655) Absolute Lymph 1.16 {X10_3/uL} (Normal) Range: 0.83-4.51 [...] K/mm3 (Normal) Range: 4.4-11.0 :44 Magnesium Comments: [facility] [address] [place], [place], [phone](888) MG 1.7 mg/dL (Abnormal) Range: 1.8-2.4 :44 Protein+Creatinine Ratio,Urine Comments: [facility] Rxhsnsclry[address] [place], [address] PROT:CRE RATIO 397 {mg/g_CRE} (Abnormal) Range: 0-200 PROTEIN,UR.RAN. 89.0 mg/dL (Abnormal) UR CREAT 224.00 mg/dL (Normal) :44 PTH,INTACT Comments: [facility] [address]xr[address] [place], [address] PTH,Intact 199 pg/mL (Abnormal) Range: 14-72 :44 Renal Profile Comments: [facility] Pxnwihigor[address] [place], [address] CO2 21.0 [...] 7-18 GLU 94 mg/dL (Normal) Range: 70-110 42-Urg-089267:44 Vitamin D,25 Hydroxy Comments: [facility] T[address]ydjrsor[address] [place], [address] Vitamin D 25-OH 33.1 ng/mL (Normal) Comments: Vitamin D 25(OH) Status Range Deficiency <20 ng/mL (50nmol/L) Insuffciency 20 - 30 ng/mL (50 - 75 nmol/L) Sufficiency 30 - 100 ng/mL (75 - 250 nmol/L) Toxicity >100 ng/mL (>250 nmol/L) 14-Ytv-713366:55 Prothrombin Time w/INR Comments: Order Date: 04/06/16Interface Comments: PT/INROrder Date: 04/06/16[facility] [address] [place], [address] INR 2.2 (Normal) PROTIME 23.9 s (Abnormal) Range: 11.7-14.9 6-Eki-390870:22 Prothrombin Time w/INR Comments: Order Date: 03/30/16Order Date: 03/30/16[facility] [address]oyqjkmk[address] [place], [address] INR 2.9 (Normal) PROTIME 29.4 s (Abnormal) Range: 11.7-14.9 50-Bpa-210553:02 Prothrombin Time w/INR Comments: Diagnosis:Order Date: 01/14/16OV ID:OV Order #: [id number] Lady Of Mercy Hospital [facility] [address]tzoinq[address] [place], [address] INR 1.9 (Normal) PROTIME 21.1 s (Abnormal) Range: 11.7-14.9 14-Qhv-576837:28 CBC W/Diff, Auto - EPLAB Comments: At [facility] Out[facility] [place] Medical Oncologypatients receive CBC w/auto Differential ONLY. Physicianwill place an order for a manual differential or Pathologistreview at his discretion. [facility] OUTPATIENT [facility]. [address] [place] [address] [address] INTERNATIONAL RELATIONS TEACHER: OMERO ZAMUDIO DO PH:[phone] Lady Of Mercy Hospital [facility] [address]qvafkl[address] [place], [id number] Absolute Lymph 1.22 {X10_3/uL} (Normal) Range: 0.83-4.51 [...] 4.2-5.4 WBC 4.1 K/mm3 (Abnormal) Range: 4.4-11.0 67-Ndi-935758:28 Comprehensive Metabolic Profil Comments: Order Date: 03/09/16OV Order #: [id number] Specimen #1, #2 or #3? 1 [id number] County Hospital [address]xficcnc[address] [place], [address] GAP 6 (Normal) Range: 5-15 CO2 23.0 [...] 7-18 GLU 73 mg/dL (Normal) Range: 70-110 95-Cdr-127601:28 Ferritin Comments: Order Date: 03/09/16 Order #: [id number] Specimen #1, #2 or #3? [address] [place] [address] Ll[address]wobpma[address] [place], [place], [address] FERRITIN 117 ng/mL (Normal) Range: 8-252 64-Wgn-597076:28 Iron+Iron Binding Capacity Comments: Order Date: 03/09/16 Order #: [id number] Specimen #1, #2 or #3? [address] [place] [address] [address]rm[address]bj[address] [place], [place], [address] IRON SATURATION 33.1 % (Normal) Range: 15.0-55.0 IRON 97 ug/dL (Normal) Range: 50-170 TIBC 293 ug/dL (Normal) Range: 250-450 :28 LDH 169 U/L (Normal) Comments: Order Date: 03/09/16 Order #: [id number] Specimen #1, #2 or #3? [address] [place] [address] Tu[address]fhrsmil[address] [place], [place], [address] Range: 84-246 65-Xlp-799943:28 Prothrombin Time w/INR Comments: Order Date: 03/09/16 Order #: [id number] Lady Of Mercy Hospital [facility] [address] [place], [address] INR 2.7 (Normal) PROTIME 28.2 s (Abnormal) Range: 11.7-14.9 :28 Uric Acid Comments: Order Date: 03/09/16OV Order #: [id number] Specimen #1, #2 or #3? 1 [id number] Lady Of Mercy Hospital - Anderson [address] [place], [address] URIC 6.5 mg/dL (Abnormal) Range: 2.6-6.0 Comments: The drugs N-Acetylcysteine and Metamizole may falsely deressthis assay. :49 Prothrombin Time w/INR Comments: Diagnosis:Order Date: 03/03/16OV ID:OV Order #: [id number] Lady Of Mercy Hospital [facility] [address] [place], [address] INR 2.9 (Normal) PROTIME 29.4 s (Abnormal) Range: 11.7-14.9 :11 Prothrombin Time w/INR Comments: [facility] [address] [place], [address] INR 2.8 (Normal) PROTIME 28.3 s (Abnormal) Range: 11.7-14.9 :50 Prothrombin Time w/INR Comments: [facility] [address] [place], [address] INR 2.5 (Normal) PROTIME 26.0 s (Abnormal) Range: 11.7-14.9 :10 Prothrombin Time w/INR Comments: [facility] [address] [place], [address] INR 1.7 (Normal) PROTIME 19.3 s (Abnormal) Range: 11.7-14.9 :33 CBC W/Diff, Auto - EPLAB Comments: At [facility] Outpatient [facility] [place] Medical Oncologypatients receive CBC w/auto Differential ONLY. Physicianwill place an order for a manual differential or Pathologistreview at his discretion. [facility]. [address] [place] [address] [address] INTERNATIONAL RELATIONS TEACHER: OMERO ZAMUDIO DO PH:[phone] County Hospital [address]cjalh[address] [place], [address] Absolute Lymph 1.04 {X10_3/uL} (Normal) [...] Range: 4.4-11.0 :32 Prothrombin Time w/INR Comments: [facility] [address]glweq[address] [place], [address] INR 2.3 (Normal) PROTIME 24.2 s (Abnormal) Range: 11.7-14.9 :26 Prothrombin Time w/INR Comments: [facility] [address]avwom[address], [address] INR 2.1 (Normal) PROTIME 22.9 s (Abnormal) Range: 11.7-14.9 84-Xxc-541248:15 Prothrombin Time w/INR Comments: [facility] [address]ncgnb[address] [place], [place], [address] INR 2.2 (Normal) PROTIME 23.5 s (Abnormal) Range: 11.7-14.9 95-Rif-730380:14 Comprehensive Metabolic Profil Comments: [facility] [address]ij[address] [place], [address] GAP 6 (Normal) Range: 5-15 CO2 23.0 [...] 7-18 GLU 78 mg/dL (Normal) Range: 70-110 92-Mpo-553819:14 LDH 197 U/L (Normal) Comments: [facility] [address]itw[address] [place], [address] Range: 84-246 39-Ggm-353965:14 Uric Acid Comments: [facility] C[address]blwyedc[address] [place], [address] URIC 7.2 mg/dL (Abnormal) Range: 2.6-6.0 86-Hyy-624848:10 CBC W/Diff, Auto - EPLAB Comments: At [facility] Outpatient [facility] Medical Oncologypatients receive CBC w/auto Differential ONLY. Physicianwill place an order for a manual differential or Pathologistreview at his discretion. [facility]. [address] [place] [address] [place] [address] INTERNATIONAL RELATIONS TEACHER: OMERO ZAMUDIO DO PH:[phone] County Hospital [id number] [address]. [place], [id number] Absolute Lymph 1.12 {X10_3/uL} (Normal) Range: 0.83-4.51 [...] 4.2-5.4 WBC 5.8 K/mm3 (Normal) Range: 4.4-11.0 [id number]-Wts-[id number]:31 Prothrombin Time w/INR Comments: [facility] [id number] [place], [place], [id number] INR 2.9 (Normal) PROTIME 29.3 s (Abnormal) Range: 11.7-14.9 52-Ukd-915987:01 CBC W/Diff, Auto - EPLAB Comments: SPECIMEN OBTAINED FROM LINE DRAWAt [facility] Medical Oncologypatients receive CBC w/auto Differential ONLY. Physicianotf place an order for a manual differential or Pathologis Only treview at his discretion. [facility] OUTPATIENT [facility]. [address] [place] [address] [address] INTERNATIONAL RELATIONS TEACHER: OMERO ZAMUDIO DO PH:[phone] Health [facility] Hospital [id number] [place], [place], [address] Absolute Lymph 1.09 {X10_3/uL} (Normal) Range: 0.83-4.51 [...] 4.2-5.4 WBC 5.5 K/mm3 (Normal) Range: 4.4-11.0 45-Uti-196048:00 Prothrombin Time w/INR Comments: [facility] [id number] [place], [place], [id number] INR 2.5 (Normal) PROTIME 26.4 s (Abnormal) Range: 11.7-14.9 09-Haq-777984:59 Comprehensive Metabolic Profil Comments: Serial Specimen #1, #2 or #3? [address] [place] [address] [id number] [place], [place], [id number] GAP 8 (Normal) Range: 5-15 CO2 22.0 [...] 7-18 GLU 78 mg/dL (Normal) Range: 70-110 03-Epa-847364:59 Ferritin Comments: Serial Specimen #1, #2 or #3? [address] [place] [address] [place], [address] FERRITIN 84 ng/mL (Normal) Range: 8-252 56-Eiv-553328:59 Iron+Iron Binding Capacity Comments: Serial Specimen #1, #2 or #3? [address] [place] [address] Hojrsrsxsh[address]7 [place], [address] IRON SATURATION 27.2 % (Normal) Range: 15.0-55.0 IRON 83 ug/dL (Normal) Range: 50-170 TIBC 305 ug/dL (Normal) Range: 250-450 91-Pes-352651:59 LDH 195 U/L (Normal) Comments: Serial Specimen #1, #2 or #3? [address] [place] [address] Bcidlvedpk7161 [place], [address] Range: 84-246 33-Lga-375275:59 Uric Acid Comments: Serial Specimen #1, #2 or #3? [address] [place] [address] Hnhxovbcte7302 [place], [address] URIC 7.2 mg/dL (Abnormal) Range: 2.6-6.0 34-Bwa-834214:33 Prothrombin Time w/INR Comments: [facility] Crheobftee8213 [place], [address] INR 3.0 (Normal) PROTIME 29.9 s (Abnormal) Range: 11.7-14.9 03-Hcb-780974:08 Prothrombin Time w/INR Comments: [place] [address] [address], [address] INR 3.1 (Normal) PROTIME 30.8 s (Abnormal) Range: 11.7-14.9 05-Nov-20150:00 Basic Metabolic Profile (BMP) Comments: [facility] Idajspddpr1472 [address] [place], [id number] GAP 4 (Abnormal) Range: 5-15 CO2 24.0 [...] 7-18 GLU 80 mg/dL (Normal) Range: 70-110 5-Itc-103402:23 Magnesium Comments: [facility] [address] [place], [id number](992) MG 1.8 mg/dL (Normal) Range: 1.8-2.4 6-Ybf-330261:23 Protein+Creatinine Ratio,Urine Comments: [facility] [address] [place], [address] PROT:CRE RATIO 355 {mg/g_CRE} (Abnormal) Range: 0-200 PROTEIN,UR.RAN. 56.8 mg/dL (Abnormal) UR CREAT 160.00 mg/dL (Normal) 3-Ezk-728332:23 Prothrombin Time w/INR Comments: [facility] [address] [place], [address] INR 3.1 (Normal) PROTIME 31.8 s (Abnormal) Range: 11.7-14.9 8-Tor-285351:23 PTH,INTACT Comments: [facility] [address] [place], [address] PTH,Intact 71 pg/mL (Normal) Range: 14-72 4-Nks-578402:23 Renal Profile Comments: [facility] L[address] [place], [id number](592) CO2 22.0 mmol/L (Normal) Range: 21.0-32.0 CL [...] 7-18 GLU 83 mg/dL (Normal) Range: 70-110 6-Ton-346005:23 Vitamin D 1,25-Dihydroxy Comments: [facility] (refer to report for specific site)refer to report for address and phone number VITD 1,[phone] 79192 25.0 pg/mL (Normal) Range: 19.9-79.3 Comments: Performed at: [address] [id number] Director: Matthew Nino MD, Phone: [phone] 5-Sxi-595789:22 CBC W/Diff, Auto - EPLAB Comments: At [facility] Oncologypatients receive CBC w/auto Differential ONLY. Physicianwill place an order for a manual differential or Pathologistreview at his discretion. [facility]. [address] [place] [address] [address] INTERNATIONAL RELATIONS TEACHER: OMERO ZAMUDIO DO PH:[phone] Lady Of [facility] Mxyklhfyxz9386 [address] [place], [place], [address] Absolute Lymph 1.64 {X10_3/uL} (Normal) Range: 0.83-4.51 [...] 4.2-5.4 WBC 6.1 K/mm3 (Normal) Range: 4.4-11.0 24-Mwt-848863:39 Microscopic Examination Comments: PATIENT NOT FASTINGPERFORMED BY: [employer] [id number] Bacteria None seen (Normal) Mucus Threads Present (Normal) Crystal Type Calcium Oxalate (Normal) Crystals Present (Abnormal) Epithelial Cells (non renal) 0-10 {/hpf} (Normal) Range: 0 - 10 RBC 0-2 {/hpf} (Normal) Range: 0 - 2 WBC 0-5 {/hpf} (Normal) Range: 0 - 5 56-Qly-147296:39 LIPID PANEL (45491) Comments: PATIENT NOT FASTINGPERFORMED BY: [employer] [facility] [id number] LDL/HDL Ratio 1.9 {ratio_units} (Normal) Range: 0.0-3.2 [...] 185 mg/dL (Normal) Range: 100-199 :39 TSH (60767) Comments: PATIENT NOT FASTINGPERFORMED BY: [employer] THINK360 [facility] [id number] TSH 1.800 {uIU/mL} (Normal) Range: 0.450-4.500 :39 URINALYSIS, W/ MICRO (56660) Comments: PATIENT NOT FASTINGPERFORMED BY: [employer] [facility] [id number] Microscopic Examination See below: (Normal) Comments: Microscopic was indicated and was performed. Nitrite, Urine Negative (Normal) Urobilinogen,Semi-Qn 0.2 mg/dL (Normal) Range: 0.2-1.0 Bilirubin Negative (Normal) Occult Blood Negative (Normal) Ketones Negative (Normal) Glucose Negative (Normal) Protein 1+ (Abnormal) WBC Esterase Trace (Abnormal) Appearance Cloudy (Abnormal) Urine-Color Yellow (Normal) pH 6.0 (Normal) Range: 5.0-7.5 Specific [place] 1.014 (Normal) Range: 1.005-1.030 :39 MICROALBUMIN: CREATININE RATIO Comments: PATIENT NOT FASTINGPERFORMED BY: [employer] THINK360 [facility] [id number] (16785) AND (55698) Microalb/Creat Ratio 34.2 {mg/g_creat} (Abnormal) Range: 0.0-30.0 Microalbumin, Urine 46.5 ug/mL (Abnormal) Range: 0.0-17.0 Creatinine, Urine 135.9 mg/dL (Normal) Range: 15.0-278.0 :39 METABOLIC PANEL, Comments: PATIENT NOT FASTINGPERFORMED BY: [employer] THINK360 [facility] [id number] Information: [id number] COMPREHENSIVE (41604) ALT (SGPT) 14 [iU]/L (Normal) Range: 0-32 [...] Range: 65-99 :37 Prothrombin Time w/INR Comments: [facility] Sw[address]jo[address] [place], [address] INR 2.5 (Normal) PROTIME 26.7 s (Abnormal) Range: 11.7-14.9 :55 CBC W/Diff, Auto - EPLAB Comments: At [facility] Medical Oncologypatients receive CBC w/auto Differential ONLY. Physicianwill place an order for a manual differential or Pathologistreview at his discretion. [facility]. [address] [place] [address] [address] INTERNATIONAL RELATIONS TEACHER: OMERO ZAMUDIO DO PH:[phone] Lady Of Mercy Hospital [facility] Xmrkcntubn[address] [place], [place], [address] Absolute Lymph 1.30 {X10_3/uL} (Normal) Range: 0.83-4.51 [...] 4.2-5.4 WBC 5.8 K/mm3 (Normal) Range: 4.4-11.0 81-Isw-802278:55 Prothrombin Time w/INR Comments: [facility] Askandknby[address] [place], [place], [address] INR 2.5 (Normal) PROTIME 27.3 s (Abnormal) Range: 11.7-14.9 0-Mgo-173964:31 Rapid Flu (41671 x 2) Influenza A Ag negative (Normal) 5-Ypo-574188:25 CBC W/Diff, Auto - EPLAB Comments: At [facility] Medical Oncologypatients receive CBC w/auto Differential ONLY. Physicianwill place an order for a manual differential or Pathologistreview at his discretion. [facility]. [address] [place] [address] [address] INTERNATIONAL RELATIONS TEACHER: OMERO ZAMUDIO DO PH:[phone] Lady Of Mercy Hospital [facility] Abvosgvcrw7877 [address] [place], [address] Absolute Lymph 1.41 {X10_3/uL} (Normal) [...] 4.2-5.4 WBC 7.3 K/mm3 (Normal) Range: 4.4-11.0 9-Dsw-872284:25 Prothrombin Time w/INR Comments: [facility] Tvajqgyqva7[address] [place], [place], [address] INR 1.9 (Normal) PROTIME 22.2 s (Abnormal) Range: 11.7-14.9 63-Rjm-856030:15 CBC W/Diff, Auto - EPLAB Comments: At [facility] Medical Oncologypatients receive CBC w/auto Differential ONLY. Physicianwill place an order for a manual differential or Pathologistreview at his discretion. [facility]. [address] [place] [address] [address] INTERNATIONAL RELATIONS TEACHER: OMERO ZAMUDIO DO PH:[phone] Lady Of Mercy Hospital [facility] Kmaygrglwo2565 [address] [place], [place], [address] Absolute Lymph 1.34 {X10_3/uL} (Normal) Range: 0.83-4.51 [...] 4.2-5.4 WBC 6.2 K/mm3 (Normal) Range: 4.4-11.0 44-Dwo-444577:15 Prothrombin Time w/INR Comments: [facility] Bhoucogcka[address] [place], [place], [address] INR 2.2 (Normal) PROTIME 24.2 s (Abnormal) Range: 11.7-14.9 28-Cgl-694078:08 Ferritin Comments: THIS IS STORED UNDER THE XTRA RACK FROM [facility] Ybfehybdzb5557 [place], [address] FERRITIN 49 ng/mL (Normal) Range: 8-252 52-Elm-721090:08 Iron Comments: THIS IS STORED UNDER THE XTRA RACK FROM [facility] Vxenlnymud0954 [address] [place], [place], [address] IRON 42 ug/dL (Abnormal) Range: 50-170 22-Qau-554300:08 Iron Binding Capacity,Total Comments: THIS IS STORED UNDER THE XTRA RACK FROM [facility] Dftugngyvo8509 [address] [place], [place], [address] TIBC 299 ug/dL (Normal) Range: 250-450 61-Izi-080015:08 Prothrombin Time w/INR Comments: [facility] Hribzsukrl[address] [place], [place], [address] INR 2.2 (Normal) PROTIME 24.4 s (Abnormal) Range: 11.7-14.9 75-Fqb-287704:55 CBC W/Diff, Auto - EPLAB Comments: At [facility] Medical Oncologypatients receive CBC w/auto Differential ONLY. Physicianwill place an order for a manual differential or Pathologistreview at his discretion. [facility]. [address] [place] [address] [address] INTERNATIONAL RELATIONS TEACHER: OMERO ZAMUDIO DO PH:[phone] Lady Of Mercy Hospital [facility] Gveqhrjloz[address] [place], [place], [address] Absolute Lymph 1.28 {X10_3/uL} (Normal) Range: 0.83-4.51 [...] 4.2-5.4 WBC 5.8 K/mm3 (Normal) Range: 4.4-11.0 99-Knv-825234:15 CBC W/Diff, Auto - EPLAB Comments: At [facility] Medical Oncologypatients receive CBC w/auto Differential ONLY. Physicianwill place an order for a manual differential or Pathologistreview at his discretion. [facility]. [address] [place] [address] [address] INTERNATIONAL RELATIONS TEACHER: OMERO ZAMUDIO DO PH:[phone] Lady Of Mercy Hospital [facility] Dkcrnnofnu2442 [address] [place], [address] Absolute Lymph 0.98 {X10_3/uL} (Normal) [...] 4.2-5.4 WBC 6.3 K/mm3 (Normal) Range: 4.4-11.0 12-Pms-055897:15 Comprehensive Metabolic Profil Comments: Serial Specimen #1, #2 or #3? [address] [place] [address] Avmvlznhjy[address] [place], [place], [address] GAP 9 (Normal) Range: 5-15 CO2 23.0 [...] 7-18 GLU 105 mg/dL (Normal) Range: 70-110 43-Yei-142088:15 LDH 194 U/L (Normal) Comments: Serial Specimen #1, #2 or #3? [address] [place] [address] Zgiqsskmvr3668 [address] [place], [place], [address] Range: 84-246 11-Eus-499006:15 Prothrombin Time w/INR Comments: [facility] Tum[address] [place], [place], [address] INR 3.4 (Normal) PROTIME 34.0 s (Abnormal) Range: 11.7-14.9 13-Ser-167007:15 Uric Acid Comments: [facility] Specimen #1, #2 or #3? [facility] [address] [place], [address] URIC 7.1 mg/dL (Abnormal) Range: 2.6-6.0 5-Drc-658520:41 Prothrombin Time w/INR Comments: [facility] Tg[address] [place], [place], [address] INR 2.9 (Normal) PROTIME 30.4 s (Abnormal) Range: 11.7-14.9 7-Uhx-067798:22 CBC W/Diff, Auto - EPLAB Comments: At [facility] Medical Oncologypatients receive CBC w/auto Differential ONLY. Physicianwill place an order for a manual differential or Pathologistreview at his discretion. [facility]. [address] [place] [address] [address] INTERNATIONAL RELATIONS TEACHER: OMERO ZAMUDIO DO PH:[phone] Lady Of Mercy Hospital [facility] Lnjfgqljsz7864 [address] [place], [place], [address] Absolute Lymph 1.01 {X10_3/uL} (Normal) Range: 0.83-4.51 [...] 4.2-5.4 WBC 6.5 K/mm3 (Normal) Range: 4.4-11.0 3-Cyw-612585:22 Comprehensive Metabolic Profil Comments: Serial Specimen #1, #2 or #3? 1[facility] Wrypujzoll18[address] [place], [place], [address] GAP 9 (Normal) Range: 5-15 CO2 23.0 [...] 126 mg/dLsuggests DIABETES MELLITUS per A.D.A. criteria. 5-Vqf-029472:22 LDH 220 U/L (Normal) Comments: Serial Specimen #1, #2 or #3? 1[facility] Ubxsgheujd6484 [place], [address] Range: 84-246 3-Koe-564415:22 Uric Acid Comments: Serial Specimen #1, #2 or #3? 1[facility] [address] [place], [place], [address] URIC 5.9 mg/dL (Normal) Range: 2.6-6.0 89-Wpr-889704:00 Prothrombin Time w/INR Comments: [facility] Ycivsfdcrp[address] [place], [place], [address] INR 2.2 (Normal) PROTIME 24.1 s (Abnormal) Range: 11.7-14.9 40-Hjw-102385:10 Prothrombin Time w/INR Comments: [facility] Uyqbguboqq1448 [address] [place], [place], [address] INR 2.4 (Normal) PROTIME 26.4 s (Abnormal) Range: 11.7-14.9 99-Okf-593822:40 Prothrombin Time w/INR Comments: [facility] Z[address] [place], [place], [address] INR 2.4 (Normal) PROTIME 26.3 s (Abnormal) Range: 11.7-14.9 1-Zqp-675662:00 CBC W/Diff, Auto - EPLAB Comments: At [facility] Medical Oncologypatients receive CBC w/auto Differential ONLY. Physicianwill place an order for a manual differential or Pathologistreview at his discretion. [facility]. [address] [place] [address] [address] INTERNATIONAL RELATIONS TEACHER: OMERO ZAMUDIO DO PH:[phone] Lady Of Mercy Hospital [facility] Nhberjmtsh5198 [address] [place], [place], [address] Absolute Lymph 1.45 {X10_3/uL} (Normal) Range: 0.83-4.51 [...] K/mm3 (Normal) Range: 4.4-11.0 :59 Magnesium Comments: [facility] [address] [place], [place], [address] MG 1.7 mg/dL (Abnormal) Range: 1.8-2.4 :59 Protein+Creatinine Ratio,Urine Comments: [facility] Tw[address]fj[address] [place], [place], [address] PROT:CRE RATIO 250 {mg/g_CRE} (Abnormal) Range: 0-200 PROTEIN,UR.RAN. 46.8 mg/dL (Abnormal) UR CREAT 187.00 mg/dL (Normal) :59 PTH,INTACT Comments: [facility] [address] [place], [place], [address] PTH,Intact 81 pg/mL (Abnormal) Range: 14-72 2-Fvu-181905:59 Renal Profile Comments: [facility] Jaepuupjqt0160 [address] [place], [address] CO2 22.0 [...] 7-18 GLU 94 mg/dL (Normal) Range: 70-110 1-Vys-966045:59 Vitamin D,25 Hydroxy Comments: [facility] [address]oggrmtbvq8[address] [place], [address] Vitamin D 25-OH 39.3 ng/mL (Normal) Comments: Vitamin D 25(OH) Status Range Deficiency <20 ng/mL (50nmol/L) Insuffciency 20 - 30 ng/mL (50 - 75 nmol/L) Sufficiency 30 - 100 ng/mL (75 - 250 nmol/L) Toxicity >100 ng/mL (>250 nmol/L) 1-Ofd-552757:40 Lipid Profile Comments: PT TO DR PARRA, TSH, MICRO ALB CREA, UAC AND LIPD TO Nhung [facility] Gyelzscysp8484 [place], [address] VLDL 29 [...] 200-240 mg/dL Borderline >240 mg/dL High Risk 7-Flu-050230:40 Microalb:Creat Ratio,Random UR Comments: [facility] Fkwjivrafn5[address] [place], [address] MALB:CREAT 14.5 {mg/g_CRE} (Normal) MICROALBUMIN,UR 14.8 mg/L (Normal) UR CREAT 102.00 mg/dL (Normal) 2-Wiz-760885:40 Prothrombin Time w/INR Comments: [facility] Kcjysozpcw7269 [facility] [place], [address] INR 2.3 (Normal) PROTIME 25.1 s (Abnormal) Range: 11.7-14.9 3-Zpw-553531:40 Thyroid Stim Hormone (TSH) Comments: PT TO DR PARRA, TSH, MICRO ALB CREA, UAC AND LIPD TO [facility] Pktlxcwfry38[address] [place] [place], [address] TSH 3.62 {uIU/mL} (Normal) Range: 0.358-3.74 1-Phf-733075:40 Urinalysis, Complete Comments: How was Urine Obtained? [facility] Rbjjteofcr4[address] [place], [address] MUCUS, URINE 0 SEEN {/hpf} [...] CLARITY Sl. Cloudy (Normal) COLOR Yellow (Normal) 66-Vpz-471735:15 CBC W/Diff, Auto - EPLAB Comments: At [facility] Medical Oncologypatients receive CBC w/auto Differential ONLY. Physicianwill place an order for a manual differential or Pathologistreview at his discretion. [facility]. [address] [place] [address] [address] INTERNATIONAL RELATIONS TEACHER: OMERO ZAMUDIO DO PH:[phone] Lady Of Mercy Hospital [facility] Rthuojdliz16[address] [place], [place], [address] Absolute Lymph 1.10 {X10_3/uL} (Normal) Range: 0.83-4.51 [...] 4.2-5.4 WBC 5.7 K/mm3 (Normal) Range: 4.4-11.0 17-Vox-376718:15 Comprehensive Metabolic Profil Comments: Serial Specimen #1, #2 or #3? [address] [place] [address] [address]unusx[address] [place], [place], [address] GAP 10 (Normal) Range: 5-15 CO2 21.0 [...] 7-18 GLU 74 mg/dL (Normal) Range: 70-110 25-Lrk-808555:15 LDH 188 U/L (Normal) Comments: Serial Specimen #1, #2 or #3? [address] [place] [address] Ecskwahuic1052 [place], [address] Range: 84-246 54-Dwj-151710:15 Prothrombin Time w/INR Comments: [facility] Vsiexhsjes1674 [place], [address] INR 2.1 (Normal) PROTIME 23.5 s (Abnormal) Range: 11.7-14.9 64-Rxr-467804:15 Uric Acid Comments: Serial Specimen #1, #2 or #3? 1[facility] Myxunwudwz4452 [place], [address] URIC 6.6 mg/dL (Abnormal) Range: 2.6-6.0 71-Iox-556802:50 Basic Metabolic Profile (BMP) Comments: SPECIMEN OBTAINED FROM [facility] Wopihzwmsx1168 [place], [address] GAP 8 (Normal) Range: 5-15 CO2 [...] 7-18 GLU 85 mg/dL (Normal) Range: 70-110 16-Clu-598350:50 Prothrombin Time w/INR Comments: SPECIMEN OBTAINED FROM [facility] Zkjcmraune8951 [place], [address] INR 1.6 (Normal) PROTIME 19.4 s (Abnormal) Range: 11.7-14.9 2-Kgs-621852:10 CBC W/Diff, Automated Comments: At [facility] Medical Oncologypatients receive CBC w/auto Differential ONLY. Physicianwill place an order for a manual differential or Pathologistreview at his discretion. [facility]. [address] [place] [address] [address] INTERNATIONAL RELATIONS TEACHER: OMERO ZAMUDIO DO PH:[phone] performed at:[facility] [address] [place], [place] [address] Absolute Lymph 0.81 {X10_3/ul} (Abnormal) Range: 0.83-4.51 [...] 4.2-5.4 WBC 4.9 K/mm3 (Normal) Range: 4.4-11.0 9-Wet-816088:10 Comprehensive Metabolic Profil Comments: Serial Specimen #1, #2 or #3? 1Test performed at:[facility] Jscallztyf[address] [place] [address] ; handled by felix TIAN 9 (Normal) [...] Comments: Please note revised CREATININE reference range /22/2015. BUN 43 mg/dL (Abnormal) Range: 7-18 GLU 79 mg/dL (Normal) Range: 70-110 8-Kok-070738:10 LDH 202 U/L (Normal) Comments: Serial Specimen #1, #2 or #3? 1Test performed at:[facility] Iwdczoskum7867 [address] [place] [address] Range: 84-246 6-Yil-934330:10 Prothrombin Time w/INR Comments: Test performed at:[facility] Ozgnpwrwpg[address] [place] [address] INR 2.3 (Normal) PROTIME 25.6 s (Abnormal) Range: 11.7-14.9 8-Fza-519606:10 Uric Acid Comments: Serial Specimen #1, #2 or #3? 1Test performed at:[facility] Qhzdfrczzp9627 [address] [place] [address] URIC 6.3 mg/dL (Abnormal) Range: 2.6-6.0 97-Mvx-825361:00 Prothrombin Time w/INR Comments: Test performed at:[facility] Cqaxwwatho7767 [address] [place] [address] INR 2.5 (Normal) PROTIME 26.8 s (Abnormal) Range: 11.7-14.9 08-Vut-017062:37 CALCIFIDIOL (53911) VIT D 25 Comments: PATIENT NOT FASTINGPERFORMED BY: [employer]ut[employer] SoftwareGallup Indian Medical CenterTuohqu5561 [facility] [id number] Vitamin D, 25-Hydroxy 40.0 ng/mL (Normal) Range: 30.0-100.0 Comments: Vitamin D deficiency has been defined by the Warriormine ofBucy[facility] Community Hospitalcine and an Endocrine Society practice guideline as alevel of serum 25-OH vitamin D less than 20 ng/mL (1,2).The Endocrine Society went on to further define vitamin Dinsufficiency as a level between 21 and 29 ng/mL (2).1. IOM ([place] of Medicine). 2010. Dietary reference intakes for calcium and D. [place]: The National Academies Press.2. Lluvia MF, Wade [place], Tanner VENEGAS, et al. Evaluation, treatment, and prevention of vitamin D deficiency: an Endocrine Society clinical practice guideline. JCEM. 2010; 96(7):1911-30. 87-Ecy-590692:37 TSH (37922) Comments: PATIENT NOT FASTINGPERFORMED BY: LabCoInspira Medical Center WoodburyFhqqms2065 [facility] [id number] Information: 161080,[id number] TSH 3.550 {uIU/mL} (Normal) Range: 0.450-4.500 00-Cvm-515571:40 Prothrombin Time w/INR Comments: Test performed at:[facility] Glvfcqgenx04[address] [place] [address] INR 2.4 (Normal) PROTIME 26.0 s (Abnormal) Range: 11.7-14.9 02-Mar-20159:00 Prothrombin Time w/INR Comments: Test performed at:[facility] [address] [place], [place] [address] INR 2.2 (Normal) PROTIME 24.3 s (Abnormal) Range: 11.7-14.9 45-Rgr-504751:05 CBC W/Diff, Auto - EPLAB Comments: At [facility] Medical Oncologypatients receive CBC w/auto Differential ONLY. Physicianwill place an order for a manual differential or Pathologistreview at his discretion. [facility]. [address] [place] [address] [address] INTERNATIONAL RELATIONS TEACHER: OMERO ZAMUDIO DO PH:[phone] performed at:[facility] [address] [place] [address] Absolute Neut 3.7 {X10_3/uL} (Normal) Range: 2.0-7.7 [...] 4.2-5.4 WBC 5.4 K/mm3 (Normal) Range: 4.4-11.0 84-Zeb-630836:05 Prothrombin Time w/INR Comments: Test performed at:[facility] [address] [place], [place] [address] INR 2.5 (Normal) PROTIME 27.0 s (Abnormal) Range: 11.7-14.9 50-Enn-493205:35 Prothrombin Time w/INR Comments: Test performed at:[facility] [address] [place] [address] INR 1.4 (Normal) PROTIME 17.4 s (Abnormal) Range: 11.7-14.9 86-Ayv-377786:51 CBC W/Diff, Auto - EPLAB Comments: At [facility] Medical Oncologypatients receive CBC w/auto Differential ONLY. Physicianwill place an order for a manual differential or Pathologistreview at his discretion. [facility]. [address] [place] [address] [address] INTERNATIONAL RELATIONS TEACHER: OMERO ZAMUDIO DO PH:[phone] performed at:[facility] [address] [place], [place] [address] Absolute Neut 4.0 {X10_3/uL} (Normal) Range: 2.0-7.7 [...] URINCE TO GO TO DR. Dupont performed at:[facility] [id number] [place] [address] MG 1.7 mg/dL (Abnormal) Range: 1.8-2.4 :51 Protein+Creatinine Ratio,Urine Comments: RENAL, VITD25, MG PTHIN AND URINCE TO GO TO DR. Dupont performed at:[facility] [id number] [place] [address] PROT:CRE RATIO 304 {mg/g_CRE} (Abnormal) Range: 0-200 PROTEIN,UR.RAN. 48.2 mg/dL (Abnormal) UR CREAT 158.3 mg/dL (Normal) :51 Prothrombin Time w/INR Comments: Test performed at:[facility] [id number] [place] [address] INR 1.1 (Normal) PROTIME 14.2 s (Normal) Range: 11.7-14.9 :51 PTH,INTACT Comments: Test performed at:[facility] [id number] [place] [address] PTH,Intact 31 pg/mL (Normal) Range: 14-72 :51 Renal Profile Comments: RENAL, VITD25, MG PTHIN AND URINCE TO GO TO DR. Dupont performed at:[facility] [id number] [place] [address] CO2 20.0 mmol/L (Abnormal) Range: 21.0-32.0 CL [...] 7-18 GLU 79 mg/dL (Normal) Range: 70-110 [id number]:51 Vitamin D,25 Hydroxy Comments: Test performed at:[facility] G[address]tsxyg[address] [place] [address] Vitamin D 25-OH 32.1 ng/mL (Normal) Comments: Vitamin D 25(OH) Status Range Deficiency <20 ng/mL (50nmol/L) Insuffciency 20 - 30 ng/mL (50 - 75 nmol/L) Sufficiency 30 - 100 ng/mL (75 - 250 nmol/L) Toxicity >100 ng/mL (>250 nmol/L) 64-Vet-706492:00 Prothrombin Time w/INR Comments: Test performed at:[facility] [address] [place], [place] [address] INR 2.5 (Normal) PROTIME 26.7 s (Abnormal) Range: 11.7-14.9 21-Bww-991302:54 Serum Creatinine AND GFR Comments: Test performed at:[facility] [address] [place] [address] CREAT,SERUM 2.6 mg/dL (Abnormal) Range: 0.6-1.0 55-Blo-169276:47 D-Dimer Quantitative (DVT/PE) Comments: Test performed at:[facility] [address] [place] [address] D-DIMER QUANT 2.05 {FEU/ug/m} (Abnormal) Range: 0.27-0.49 Comments: D-Dimer ELEVATED (>0.49): Additional studies and clinicalassessments are indicated to conclude diagnosis of:Deep Vein Thrombosis (DVT) or Pulmonary Embolism (PE)CRITICAL VALUE REPEATED AND VERIFIED. CALLED TO [facility]RBAN BACK'S OFFICE.01/14/15 1322 Kory Kent.RESULTS READ BACK BY SAME. 12-Nps-477574:20 Prothrombin Time w/INR Comments: Test performed at:[facility] [address] [place], [place] [address] INR 2.6 (Normal) PROTIME 27.5 s (Abnormal) Range: 11.7-14.9 51-Jtp-991551:25 CBC W/Diff, Auto - EPLAB Comments: At [facility] receive CBC w/auto Differential ONLY. Paulino place an order for a manual differential or Pathologistreview at his discretion. [facility]. [address] [place] [address] [address] INTERNATIONAL RELATIONS TEACHER: OMERO ZAMUDIO DO PH:[phone] performed at:[facility] [address] [place], [place] [address] Absolute Neut 3.2 {X10_3/uL} (Normal) Range: 2.0-7.7 [...] 4.2-5.4 WBC 4.5 K/mm3 (Normal) Range: 4.4-11.0 63-Cax-713231:00 CBC W/Diff, Auto - EPLAB Comments: At [facility] Oncologypatients receive CBC w/auto Differential ONLY. Physicianwill place an order for a manual differential or Pathologistreview at his discretion. [facility]. [address] [place] [address] [address] INTERNATIONAL RELATIONS TEACHER: OMERO ZAMUDIO DO PH:[phone] performed at:[facility] [address] [place], [place] [address] Absolute Neut 4.4 {X10_3/uL} (Normal) Range: 2.0-7.7 [...] 4.2-5.4 WBC 5.8 K/mm3 (Normal) Range: 4.4-11.0 69-Iwf-283502:00 Prothrombin Time w/INR Comments: Test performed at:[facility] [address] [place], [place] [address] INR 2.8 (Normal) PROTIME 29.7 s (Abnormal) Range: 11.7-14.9 6-Uwm-842355:10 CBC W/Diff, Auto - EPLAB Only Comments: At [facility] Oncologypatients receive CBC w/auto Differential ONLY. Physicianwill place an order for a manual differential or Pathologistreview at his discretion. [facility]. [address] [place] [address] [address] INTERNATIONAL RELATIONS TEACHER: OMERO ZAMUDIO DO PH:[phone] performed at:[facility] Laborato [address] [place] [address] Absolute Neut 2.8 {X10_3/uL} (Normal) [...] 4.2-5.4 WBC 4.4 K/mm3 (Normal) Range: 4.4-11.0 52-Dhw-029427:35 CBC W/Diff, Auto - EPLAB Comments: At [facility] patientsreceive CBC w/auto Differential ONLY. Physician will placean order for a manual differential or Pathologist review athis discretion. [facility]. [address] [place] [address] [address] INTERNATIONAL RELATIONS TEACHER: OMERO ZAMUDIO DO PH:[phone] performed at:[facility] [address] [address] Absolute Neut 3.5 {X10_3/uL} (Normal) [...] 4.2-5.4 WBC 5.1 K/mm3 (Normal) Range: 4.4-11.0 58-Jwq-516885:35 Comprehensive Metabolic Profil Comments: PLEASE SEND COPY OF LIPID, CMP,TSH TO DR PAULINOerial Specimen #1, #2 or #3? 1Test performed at:[facility] [address] [place], [place] [address] GAP 12 (Normal) Range: 5-15 CO2 19.0 [...] <126 mg/dLsuggests IMPAIRED HOMEOSTASIS per A.D.A. criteria. 19-Wpw-019879:35 LDH 222 U/L (Normal) Comments: PLEASE SEND COPY OF LIPID, CMP,TSH TO DR Prieto Specimen #1, #2 or #3? 1Test performed at:[facility] [address] [place] [address] Range: 87-241 :35 Lipid Profile Comments: PLEASE SEND COPY OF LIPID, CMP,TSH TO DR Prieto Specimen #1, #2 or #3? 1Test performed at:[facility] [address] [place] [address] VLDL 42 mg/dL (Abnormal) Range: 5-40 [...] :35 Prothrombin Time w/INR Comments: Test performed at:[facility] [address] [place] [address] INR 2.3 (Normal) PROTIME 25.4 s (Abnormal) Range: 11.7-14.9 81-Jzz-632879:35 Thyroid Stim Hormone (TSH) Comments: PLEASE SEND COPY OF LIPID, CMP,TSH TO DR Prieto Specimen #1, #2 or #3? 1Test performed at:[facility] [address] [place] [address] TSH 2.09 {uIU/mL} (Normal) Range: 0.358-3.74 24-Fum-908045:35 Uric Acid Comments: PLEASE SEND COPY OF LIPID, CMP,TSH TO DR Prieto Specimen #1, #2 or #3? 1Test performed at:[facility] [address] [place] [address] URIC 6.5 mg/dL (Abnormal) Range: 2.6-6.0 25-Eco-029944:10 Prothrombin Time w/INR Comments: Test performed at:[facility] [address] [place] [address] INR 2.8 (Normal) PROTIME 29.0 s (Abnormal) Range: 11.7-14.9 8-Uqg-598822:35 Prothrombin Time w/INR Comments: Test performed at:[facility] [address] [place] [address] INR 2.9 (Normal) PROTIME 30.5 s (Abnormal) Range: 11.7-14.9 28-Bnd-051400:15 Prothrombin Time w/INR Comments: Test performed at:[facility] [address] [place] [address] INR 1.9 (Normal) PROTIME 21.4 s (Abnormal) Range: 11.7-14.9 78-Hbj-391255:45 Prothrombin Time w/INR Comments: Test performed at:[facility] [address] [place] [address] INR 4.6 (Abnormal) Comments: RESULTS CALLED TO AMOR STANTON 10/22/14 Vilma Vidal.REPORT READ BACK BY SAME. PROTIME 42.9 s (Abnormal) Range: 11.7-14.9 62-Xez-541085:30 CBC W/Diff, Auto - EPLAB Comments: [facility] Outpatient [facility] patientsreceive CBC w/auto Differential ONLY. Physician will placean order for a manual differential or Pathologist review athis discretion. Only [facility]. [address] [place] [address] [place] [address] INTERNATIONAL RELATIONS TEACHER: OMERO ZAMUDIO DO PH:[phone] performed at:[facility] Labo [address] [facility] [place] [address] Absolute Neut 3.9 {X10_3/uL} (Normal) [...] 4.2-5.4 WBC 5.8 K/mm3 (Normal) Range: 4.4-11.0 03-Oub-596122:30 Magnesium Comments: Test performed at:[facility] [address] [place] [address] MG 1.6 mg/dL (Abnormal) Range: 1.8-2.4 29-Wtg-592170:30 Protein+Creatinine Ratio,Urine Comments: Test performed at:[facility] [address]sm[address] [place] [address] PROT:CRE RATIO 498 {mg/g_CRE} (Abnormal) Range: 0-200 PROTEIN,UR.RAN. 67.7 mg/dL (Abnormal) UR CREAT 135.7 mg/dL (Normal) 36-Nbw-816571:30 Prothrombin Time w/INR Comments: Test performed at:[facility] [address] [place] [address] INR 2.9 (Normal) PROTIME 30.0 s (Abnormal) Range: 11.7-14.9 59-Yew-908362:30 PTH,INTACT Comments: Test performed at:[facility] [address] [place] [address] PTH,Intact 63 pg/mL (Normal) Range: 14-72 98-Xsm-740410:30 Renal Profile Comments: Test performed at:[facility] [address] [place] [address] CO2 20.0 mmol/L (Abnormal) Range: 21.0-32.0 [...] 7-18 GLU 83 mg/dL (Normal) Range: 70-110 89-Xuz-480695:30 Vitamin D,25 Hydroxy Comments: Test performed at:[facility] [address] [place] [address] Vitamin D 25-OH 36.5 ng/mL (Normal) Comments: Vitamin D 25(OH) Status Range Deficiency <20 ng/mL (50nmol/L) Insuffciency 20 - 30 ng/mL (50 - 75 nmol/L) Sufficiency 30 - 100 ng/mL (75 - 250 nmol/L) Toxicity >100 ng/mL (>250 nmol/L) 69-Bne-366918:27 Prothrombin Time w/INR Comments: Test performed at:[facility] [address] [place], [place] [address] INR 2.8 (Normal) PROTIME 29.0 s (Abnormal) Range: 11.7-14.9 94-Pjp-688826:55 Prothrombin Time w/INR Comments: Test performed at:[facility] [address] [place] [address] INR 2.4 (Normal) PROTIME 26.4 s (Abnormal) Range: 11.7-14.9 84-Odw-622758:05 CBC W/Diff, Auto - EPLAB Comments: At [facility] Outpatient [facility] patientsreceive CBC w/auto Differential ONLY. Physician will placean order for a manual differential or Pathologist review athis discretion. [facility]. [address] [place] [address] [place] [address] INTERNATIONAL RELATIONS TEACHER: OMERO ZAMUDIO DO PH:[phone] performed at:[facility] [address] [place], [place] [address] Absolute Neut 3.2 {X10_3/uL} (Normal) Range: 2.0-7.7 [...] 4.2-5.4 WBC 4.9 K/mm3 (Normal) Range: 4.4-11.0 84-Zia-199664:05 Prothrombin Time w/INR Comments: Test performed at:[facility] [address] [address] INR 1.7 (Normal) PROTIME 20.2 s (Abnormal) Range: 11.7-14.9 76-Ikl-726105:50 Prothrombin Time w/INR Comments: Test performed at:[facility] [address] [place] [address] INR 2.6 (Normal) PROTIME 28.1 s (Abnormal) Range: 11.7-14.9 70-Tyj-128434:25 FECAL OCCULT HGB ASSAY- tubes sent home (66127) FECAL OCCULT HGB ASSAY, QUAL, 1-3 SIMULTANEOU negative (Normal) 30-Wid-185340:07 CALCIFIDIOL (92590) VIT D 25 Comments: PATIENT WAS FASTINGPERFORMED BY: [employer] [place] [id number] Vitamin D, 25-Hydroxy 37.0 ng/mL (Normal) Range: 30.0-100.0 Comments: Vitamin D deficiency has been defined by the [place] ofMedicine and an Endocrine Society practice guideline as alevel of serum 25-OH vitamin D less than 20 ng/mL (1,2).The Endocrine Society went on to further define vitamin Dinsufficiency as a level between 21 and 29 ng/mL (2).1. IOM ([place] of Medicine). 2010. Dietary reference intakes for calcium and D. [place]: The National Academies Press.2. Lluvia MF, Wade [place], Tanner VENEGAS, et al. Evaluation, treatment, and prevention of vitamin D deficiency: an Endocrine Society clinical practice guideline. JCEM. 2010; 96(7):1911-30. 79-Jfj-290523:07 VITAMIN B-12 (CYANOCOBALAMIN) Comments: PATIENT WAS FASTINGPERFORMED BY: [employer] [address] RoadDublin [place] [id number] ([address]) Vitamin B12 637 pg/mL (Normal) Range: 211-946 :07 TSH (64703) Comments: PATIENT WAS FASTINGPERFORMED BY: [employer] Vlhbbq1697 [facility] [id number] TSH 0.778 {uIU/mL} (Normal) Range: 0.450-4.500 :07 METABOLIC PANEL, COMPREHENSIVE Comments: PATIENT WAS FASTINGPERFORMED BY: [employer] Sylewk9749 [facility] [id number] (88[address]) ALT (SGPT) 31 [iU]/L (Normal) Range: 0-32 [...] mg/dL (Normal) Range: 65-99 :07 LIPID PANEL (80552) Comments: PATIENT WAS FASTINGPERFORMED BY: [employer] Tbmtex8708 [facility] [id number] LDL/HDL Ratio 0.9 {ratio_units} (Normal) Range: 0.0-3.2 [...] Cholesterol, Total 193 mg/dL (Normal) Range: 100-199 06-Yaq-667267:07 CBC W/AUTO DIFF WBC Comments: PATIENT WAS FASTINGPERFORMED BY: LabCoInsp[facility] Center WoodburyQvhmhr8636 [facility] [id number] Information: [id number] (36229) Immature Grans (Abs) 0.0 {x10E3/uL} (Normal) Range: [...] (Normal) Range: 3.4-10.8 :55 ECBCD Comments: At [facility] patientsreceive CBC w/auto Differential ONLY. Physician will placean order for a manual differential or Pathologist review athis discretion.[facility]A [facility].[address] [place] [place], [place] [address]EPT DIRECTOR: OMERO ZAMUDIO DO PH:[phone] ANC 4.0 {X10_3/uL} (Normal) Range: 2.0-7.7 B% [...] Range11.9 - 14.4 :45 ECBCD Comments: At [facility] patientsreceive CBC w/auto Differential ONLY. Physician will placean order for a manual differential or Pathologist review athis discretion.[facility]IELA [facility].[address] [place], [place] [address]TNE DIRECTOR: OMERO ZAMUDIO DO PH:[phone] ANC 5.0 {X10_3/uL} (Normal) Range: 2.0-7.7 B% [...] (Normal) Range: 4.4-11.0 :55 ECBCD Comments: At [facility] patientsreceive CBC w/auto Differential ONLY. Physician will placean order for a manual differential or Pathologist review prem Ayala [facility].[address] [place] [address]KOX DIRECTOR: OMERO ZAMUDIO DO PH:[phone] ANC 4.0 {X10_3/uL} (Normal) Range: 2.0-7.7 B% [...] (Normal) PTP 29.8 s (Abnormal) Range: 11.7-14.9 85-Lci-676158:12 CBCD ALC 0.77 {X10_3/ul} (Abnormal) Range: 0.83-4.51 [...] 4.2-5.4 WBC 6.8 K/mm3 (Normal) Range: 4.4-11.0 37-Uzb-717045:12 CMP GAP 7 (Normal) Range: 5-15 CO2 [...] (Abnormal) Range: 11.7-14.9 :55 ECBCD Comments: At [facility] patientsreceive CBC w/auto Differential ONLY. Physician will placean order for a manual differential or Pathologist review athis discretion.[facility]A [facility].[address] [place] [address]OIL DIRECTOR: OMERO ZAMUDIO DO PH:[phone] ANC 3.7 {X10_3/uL} (Normal) Range: 2.0-7.7 B% [...] (Abnormal) Range: 11.7-14.9 :30 ECBCD Comments: At [facility] Outpatient [facility], [facility] patientsreceive CBC w/auto Differential ONLY. Physician will placean order for a manual differential or Pathologist review athis gilda.ARIELA [facility].[address] [place], [place] [address]SFT DIRECTOR: OMERO ZAMUDIO DO PH:[phone] ANC 2.6 {X10_3/uL} (Normal) Range: 2.0-7.7 B% [...] (Normal) PTP 19.5 s (Abnormal) Range: 11.7-14.9 83-Jdd-631476:05 CMP Comments: DR. PARRA ORDERED CBCD, CMP, [...] 7-18 GLU 81 mg/dL (Normal) Range: 70-110 48-Vvk-150149:05 ECBCD ANC 3.0 {X10_3/uL} (Normal) Range: 2.0-7.7 [...] ng/mL (>250 nmol/L) :33 ECBCD Comments: At [facility] Outpatient [facility], Dr Guerra patients receiveCBC w/auto Differential ONLY. He will place an order for amanual differential or Pathologist review at his discretion.[facility] OUTPATIENT [facility].[address] [place], [place] [address]FHC DIRECTOR: OMERO ZAMUDIO DO PH:[phone] ANC 4.4 {X10_3/uL} (Normal) Range: 2.0-7.7 B% [...] Comments: Please note revised PROTIME reference range qxmqyybth24/14/15. :30 CUUR URC See Note (Normal) Comments: [...] UCLAR Sl. Cloudy (Normal) UCOL Yellow (Normal) 93-Qhk-840504:31 PT INR 2.6 (Normal) PTP 26.0 s (Abnormal) Range: 11.9-14.4 0-Zdr-600609:26 UNILAT LT DIAG DIGITAL & CAD Radiology [...] Mendez M.D.March 08, 2013 at 2:10:47 PM [phone] Signed GP/GP If you are the referring physician and would like to consult with t heradiologist who provided this interpretation, please contact Varun Jeronimo at [phone]. If this radiologist is unavailable, youwill be directed to another radiologist to assist. If you a re a patient with a question regarding this report, pleasecontactyour referring physician directly. Professional Interpretation Provided By: [employer], Phone , These docu ments contain legally [...] 03/08/13 1415 Sign by: Vishal Mendez MD 4-Soi-476654:01 BREAST UNILATERAL Radiology See Note Comments: PROCEDURE: [...] Mendez M.D.March 08, 2013 at 2:13:37 PM [phone] Signed GP/GP If you are the referring physician and would like to consult with theradiologist who provided this interpretation, please contact Jo stack M.D. at [phone]. If this radiologist is unavailable, youwill be directed to another radiologist to assist. If you are a patient with a question regarding this report, pleasecontactyour referri ng physician directly. Professional Interpretation Provided By: [employer], Phone , These documents contain legally protected [...] 03/08/13 1418 Sign by: Vishal Mendez MD 3-Pih-272919:02 BILAT SCRN DIGITAL & CAD Radiology Report [...] will [facility]. Approximately 10% of breast cancers are not detected by mammography. Anormal mammogram sh ould not delay biopsy of a clinically suspiciousabnormality. Signed:Vishal Mendez M.D.March 01, 2013 at 12:50:31 PM [phone] Signed GP/GP If you are the referring physician an d would like to consult with theradiologist who provided this interpretation, please contact Varun Jeronimo at [phone]. If this radiologist is unavailable, youwill be directed to another r adiologist to assist. If you are a patient with a question regarding this report, pleasecontactyour referring physician directly. Professional Interpretation Provided By: [employer], Phone , These documents contain legally protected [...] 12 58 Sign by: Vishal Mendez MD 02-Swq-557124:38 FECAL OCCULT- Tubes sent home (58646) FECAL OCCULT HGB ASSAY, QUAL, 1-3 SIMULTANEOU negative (Normal) 61-Ooa-587574:33 CHEST PA AND LATERAL Radiology Report See [...] Chandler M.D.November 13, 2012 at 7:05:21 PM [phone] Signed SH/SH If you are the referring physician and would like to consult with theradiologist who provided this interpretation, please contact Varun Garcia at [phone]. If this radiologist is unavailable, youemekallbe directed [...] on 11/13/121907 Sign by: Marshall Chandler MD 24-Age-800335:40 ANURAG CULTURE-OTHER (60279) Comments: PATIENT NOT FASTINGPERFORMED BY: [employer] Power SystemsECU Health [id number] Information: SRC: THROAT Result 1 RRF (Normal) Comments: Routine respiratory raegan Upper Respiratory Culture Final report (Normal) :48 Rapid Strep Test, Office (12014) Rapid Strep Test, Office Negative (Normal) 04-Apr-20128:05 Urinalysis, Office (26947) UA - BILIRUBIN Negative (Normal) UA - BLOOD Non Hemolyzed Moderate (Normal) UA - GLUCOSE Negative (Normal) UA - KETONES Negative mg/dL (Normal) UA - LEUKOCYTE ESTERASE Large (Normal) UA - NITRITE Negative (Normal) UA - PH 6.0 (Normal) UA - PROTEIN 300 mg/dL (Normal) UA - SPECIFIC GRAVITY 1.025 (Normal) URINE UROBILINGN TYSON TIMED Normal mg/dL (Normal) 28-Gpm-716021:40 PT (PROTHROMBIN TIME) Comments: PATIENT NOT FASTINGPERFORMED BY: [facility] Power SystemsECU Health [id number] Information: [id number] (94745) Prothrombin Time 13.4 {sec} (Abnormal) Range: 8.7-11.5 [...] 64.1 mg/L Comments: PATIENT WAS FASTINGPERFORMED BY: [employer] Wnkjam7868 [facility] [id number] 1112:16 Protein, Quant (Abnormal) Range: 0.0-4.9 29-Lod-533341:16 CBC With Differential/Platelet Comments: PATIENT WAS FASTINGPERFORMED BY: [employer] SoftwareInspira Medical Center WoodburyBnqpkk1331 [facility] [id number] Immature Grans (Abs) 0.0 {x10E3/uL} (Normal) Range: [...] 3.80-5.10 WBC 5.3 {x10E3/uL} (Normal) Range: 4.0-10.5 69-Eju-026939:16 Comp. Metabolic Panel (14) Comments: PATIENT WAS FASTINGPERFORMED BY: LabCoInspira Medical Center WoodburyLqmnar3970 [facility] [id number] ALT (SGPT) 12 [iU]/L (Normal) Range: 0-40 [...] 341 [iU]/L Comments: PATIENT WAS FASTINGPERFORMED BY: [employer] Txyyni8550 [facility] [id number] :16 (Abnormal) Range: 0-214 37-Fbm-188525:16 LDL Cholesterol (Direct) Comments: PATIENT WAS FASTINGPERFORMED BY: [employer] THINK360 [facility] [id number] LDL Chol. (Direct) 80 mg/dL (Normal) Range: 0-99 Sedimentation 30 mm/h (Normal) Comments: PATIENT WAS FASTINGPERFORMED BY: [employer] THINK360 [facility] [id number] 2:16 Rate-Westergren Range: 0-56 Written Authorization WAR (Normal) Comments: PATIENT WAS FASTINGPERFORMED BY: [address] [id number] 2:16 Comments: Written Authorization Received.Authorization received from original requisition [id number] by Matthew Moore [place] 9.2 mg/dL (Normal) Range: 8.5-10.1 :25 [place] 4804 5.5 mg/dL (Normal) Range: 4.5-5.6 :25 Comments: Performed at: [address] [id number] Director: Silke Mccrary MD, Phone: [phone] 07-Uav-007339:16 PT (PROTHROMBIN TIME) Comments: PATIENT NOT FASTINGPERFORMED BY: [address] [id number] Information: [id number] (42310) Prothrombin Time 27.6 {sec} (Abnormal) Range: 8.7-11.5 INR 2.6 (Abnormal) Range: 0.8-1.2 Comments: Reference interval is for non-anticoagulated patients. . Suggested INR therapeutic range for Vitamin K anta gonist therapy: Standard Dose (moderate intensity therapeutic range): 2.0 - 3.0 Higher intensity therapeutic range 2.5 - 3.5 93-Luo-383977:15 COMP METABOLIC GAP 7 (Normal) Range: 5-15 [...] 7-18 GLU 88 mg/dL (Normal) Range: 70-110 32-Gtt-06725:00 BRAIN W/WO CONTRAST Radiology Report See Note [...] Time) Comments: PATIENT NOT FASTINGPERFORMED BY: [employer] Paxulm2944 [address] [place] [id number] Information: [id number] (74149) Prothrombin Time 12.2 {sec} (Abnormal) Range: 8.7-11.5 [...] Vishal Mendez MD :51 Vitamin D Hydroxy (04484) Comments: PATIENT WAS FASTINGPERFORMED BY: [employer] [employer] [place] [id number] Vitamin D, 25-Hydroxy 35.7 ng/mL (Normal) Range: 32.0-100.0 Comments: Recent studies consider the lower limit of 32.0 ng/mL to be athreshold for optimal health.Sameer KRISHNA. J Nutr. 2004;135(2):317-22. :51 MICROALBUMIN: CREATININE RATIO Comments: PATIENT WAS FASTINGPERFORMED BY: [employer] Yggznc4891 [address] [id number] (15041) AND (78118) Creatinine, Urine 205.5 mg/dL (Normal) Range: 15.0-278.0 Microalb/Creat Ratio 6.2 {mg/g_creat} (Normal) Range: 0.0-30.0 Microalbumin, Urine 12.8 ug/mL (Normal) Range: 0.0-17.0 :51 METABOLIC PANEL, COMPREHENSIVE Comments: PATIENT WAS FASTINGPERFORMED BY: [employer] Pace4Lifelin6370 [facility] [id number] (46615) Alkaline Phosphatase, S 54 [iU]/L (Normal) Range: [...] Range: 65-99 :51 CBC WITH MANUAL DIFF (86704) Comments: PATIENT WAS FASTINGPERFORMED BY: Pl[employer] SoftwareInspira Medical Center WoodburyLijbpy8418 [facility] [id number] Baso (Absolute) 0.0 {x10E3/uL} (Normal) Range: 0.0-0.2 [...] 5.0 {x10E3/uL} (Normal) Range: 4.0-10.5 :51 TSH (44560) Comments: PATIENT WAS FASTINGPERFORMED BY: IconicfutureCoInspira Medical Center WoodburyRbymag4690 [facility] [id number] TSH 1.320 {uIU/mL} (Normal) Range: 0.450-4.500 :51 LIPID PANEL (89856) Comments: PATIENT WAS FASTINGPERFORMED BY: IconicfutureCoInspira Medical Center WoodburyPkefsf0720 [facility] [id number] HDL Cholesterol 51 mg/dL (Normal) Comments: According to ATP-III Guidelines, HDL-C >59 mg/dL is considered anegative risk factor for CHD. LDL Cholesterol Calc 60 mg/dL (Normal) Range: 0-99 LDL/HDL Ratio 1.2 {ratio_units} (Normal) Range: 0.0-3.2 VLDL Cholesterol Richard 32 mg/dL (Normal) Range: 5-40 Cholesterol, Total 143 mg/dL (Normal) Range: 100-199 Triglycerides 161 mg/dL (Abnormal) Range: 0-149 31-Mti-353081:23 PT (Prothrobim Time) (90795) Comments: INR; PATIENT NOT FASTINGPERFORMED BY: IconicfutureJennifer [place] [id number] [facility] [id number] Prothrombin Time 28.6 {sec} (Abnormal) Range: 8.7-11.5 INR 2.7 (Abnormal) Range: 0.8-1.2 Comments: Reference interval is for non-anticoagulated patients. . Suggested INR therapeutic range for Vitamin K anta gonist therapy: Standard Dose (moderate intensity therapeutic range): 2.0 - 3.0 Higher intensity therapeutic range 2.5 - 3.5 00-Ase-594368:30 PT (PROTHROMBIN TIME) Comments: PATIENT NOT FASTINGPERFORMED BY: [address] [id number] Information: [id number] ([id number]) Prothrombin Time 19.9 {sec} (Abnormal) Range: 8.7-11.5 INR 1.9 (Abnormal) Range: 0.8-1.2 Comments: Reference interval is for non-anticoagulated patients. . Suggested INR therapeutic range for Vitamin K anta gonist therapy: Standard Dose (moderate intensity therapeutic range): 2.0 - 3.0 Higher intensity therapeutic range 2.5 - 3.5 68-Rco-787839:19 Prothrombin Time (PT) Comments: PERFORMED BY: [address] [id number] Prothrombin Time 26.5 {sec} (Abnormal) Range: 8.7-11.5 INR 2.5 (Abnormal) Range: 0.8-1.2 Comments: Reference interval is for non-anticoagulated patients. . Suggested INR therapeutic range for Vitamin K anta gonist therapy: Standard Dose (moderate intensity therapeutic range): 2.0 - 3.0 Higher intensity therapeutic range 2.5 - 3.5 :22 Prothrombin Time (PT) Comments: PERFORMED BY: [facility]6370 [facility] [id number] Prothrombin Time 12.9 {sec} (Abnormal) Range: 8.7-11.5 INR 1.2 (Normal) Range: 0.8-1.2 Comments: Reference interval is for non-anticoagulated patients. . Suggested INR therapeutic range for Vitamin K anta gonist therapy: Standard Dose (moderate intensity therapeutic range): 2.0 - 3.0 Higher intensity therapeutic range 2.5 - 3.5 :28 Prothrombin Time (PT) Comments: PERFORMED BY: [facility]6370 [facility] [id number] Prothrombin Time 13.8 {sec} (Abnormal) Range: 8.7-11.5 INR 1.3 (Abnormal) Range: 0.8-1.2 Comments: Reference interval is for non-anticoagulated patients. . Suggested INR therapeutic range for Vitamin K anta gonist therapy: Standard Dose (moderate intensity therapeutic range): 2.0 - 3.0 Higher intensity therapeutic range 2.5 - 3.5 29-Sht-485095:45 Prothrombin Time (PT) Comments: PERFORMED BY: [facility]6370 [facility] [id number] Prothrombin Time 17.9 {sec} (Abnormal) Range: 8.7-11.5 INR 1.7 (Abnormal) Range: 0.8-1.2 Comments: Reference interval is for non-anticoagulated patients. . Suggested INR therapeutic range for Vitamin K anta gonist therapy: Standard Dose (moderate intensity therapeutic range): 2.0 - 3.0 Higher intensity therapeutic range 2.5 - 3.5 27-Vba-65550:00 UPPER EXT/NO JT/W/O Radiology Report See Note (Normal) Comments: CLINICAL:73 year old female with a bulge in the deltoid area. No known injury.Painful when reaching up. MRI UPPER EXTREMITY LEFT HUMERUS TECHNIQUE:Standardized fat and water weighted pulse sequences we re obtained in [id number] planes. A skin marker was placed in [...] on 07/12/10 1333 Sign by: Brayden Gerardo 25-Btm-29443:00 HIP, MIN 2 VIEWS Radiology Report See [...] Lateral, oblique and coned down lumbosacral) [facility]. COMPARISON:None. FINDINGS:There is generalized osteopenia. The re [...] Russe on 07/12/10910 Sign by: Mukund Aguilera 7-Pem-925634:33 Prothrombin Time (PT) Comments: PERFORMED BY: [facility] Ezeqio2539 [facility] [id number] Prothrombin Time 24.6 {sec} (Abnormal) Range: 8.7-11.5 INR 2.3 (Abnormal) Range: 0.8-1.2 Comments: Reference interval is for non-anticoagulated patients. . Suggested INR therapeutic range for Vitamin K anta gonist therapy: Standard Dose (moderate intensity therapeutic range): 2.0 - 3.0 Higher intensity therapeutic range 2.5 - 3.5 79-Mxj-507447:36 Prothrombin Time (PT) Comments: PERFORMED BY: [employer] Elcikr1448 [facility] [id number] Prothrombin Time 34.1 {sec} (Abnormal) Range: 8.7-11.5 INR 3.2 (Abnormal) Range: 0.8-1.2 Comments: Reference interval is for non-anticoagulated patients..Suggested INR therapeutic range for Vitamin Kantagonist therapy:Standard Dose (moderate intensitytherapeutic range): 2.0 - 3.0Higher intensity therapeutic range 2.5 - 3.5 6-Asp-858160:03 Prothrombin Time (PT) Comments: PERFORMED BY: [employer] Cxepay1623 [facility] [id number] Prothrombin Time 29.1 {sec} (Abnormal) Range: 8.7-11.5 INR 2.7 (Abnormal) Range: 0.8-1.2 Comments: Reference interval is for non-anticoagulated patients..Suggested INR therapeutic range for Vitamin Kantagonist therapy:Standard Dose (moderate intensitytherapeutic range): 2.0 - 3.0Higher intensity therapeutic range 2.5 - 3.5 29-Dce-563271:59 Prothrombin Time (PT) Comments: PERFORMED BY: [employer] SoftwareInspira Medical Center WoodburyRmtaof9412 [facility] [id number] INR 1.8 (Abnormal) Range: 0.8-1.2 Comments: Reference interval is for non-anticoagulated patients..Suggested INR therapeutic range for Vitamin Kantagonist therapy:Standard Dose (moderate intensitytherapeutic range): 2.0 - 3.0Higher intensity therapeutic range 2.5 - 3.5 Prothrombin Time 18.9 {sec} Range: 8.7-11.5 (Abnormal) 30-Mar-2010 Triiodothyronine,Free, 2.3 pg/mL (Normal) Comments: PERFORMED BY: Plut[employer] SoftwareInspira Medical Center WoodburyItdeui1973 [facility] [id number] 10:59 Serum Range: 2.0-4.4 33-Dei-899580:59 TSH+Free T4 Comments: PERFORMED BY: [facility]6370 [facility] [id number] T4,Free(Direct) 1.31 ng/dL (Normal) Range: 0.82-1.77 TSH 2.940 {uIU/mL} (Normal) Range: 0.450-4.500 91-Nha-936422:04 Prothrombin Time (PT) Comments: PERFORMED BY: NUVIA [facility]6370 [facility] [id number] Prothrombin Time 15.6 {sec} (Abnormal) Range: 8.7-11.5 INR 1.5 (Abnormal) Range: 0.8-1.2 Comments: Reference interval is for non-anticoagulated patients..Suggested INR therapeutic range for Vitamin Kantagonist therapy:Standard Dose (moderate intensitytherapeutic range): 2.0 - 3.0Higher intensity therapeutic range 2.5 - 3.5 :38 Prothrombin Time (PT) Comments: PERFORMED BY: [facility]6370 [facility] [id number] Prothrombin Time 20.2 {sec} (Abnormal) Range: 8.7-11.5 INR 2.0 (Abnormal) Range: 0.8-1.2 Comments: Reference interval is for non-anticoagulated patients..Suggested INR therapeutic range for Vitamin Kantagonist therapy:Standard Dose (moderate intensitytherapeutic range): 2.0 - 3.0Higher intensity therapeutic range 2.5 - 3.5 7-Ryw-254700:03 Microscopic Examination Comments: PATIENT WAS FASTINGPERFORMED BY: NUVIA [facility]6370 [facility] [id number] Bacteria None seen (Normal) Epithelial Cells (non renal) 0-10 {/hpf} (Normal) Range: 0 - 10 Mucus Threads Present (Normal) RBC 11-30 {/hpf} (Abnormal) Range: 0 - 3 WBC >30 {/hpf} (Abnormal) Range: 0 - 5 :03 NMR LipoProfile Comments: PATIENT WAS FASTINGPERFORMED BY: [employer] Gyq1854 Ambrosio [facility]etM[facility] [id number] BY: NUVIA [place] [id number] [facility] [id number] Information: [id number] HDL Size 8.8 nm (Abnormal) Comments: Small [...] AND HDL PARTICLES Percentile in Reference Popula [facility]-P (total) High 75th 50th 25th Low>34.9 34.9 [...] (Normal) Comments: PATIENT WAS FASTINGPERFORMED BY: Ana LipoSciLinkyt Pjz3615 [facility] [id number] BY: NUVIA Diaz70 [facility] [id number] :03 Comments: Written Authorization Received.Authorization received from TEMI MAYNARD [id number] by Sen Rose 8-Xhr-350310:32 Prothrombin Time (PT) Comments: PERFORMED BY: NUVIA Mcintosh6370 [facility] [id number] Prothrombin Time 26.6 {sec} (Abnormal) Range: 8.7-11.5 INR 2.7 (Abnormal) Range: 0.8-1.2 Comments: Reference interval is for non-anticoagulated patients..Suggested INR therapeutic range for Vitamin Kantagonist therapy:Standard Dose (moderate intensitytherapeutic range): 2.0 - 3.0Higher intensity therapeutic range 2.5 - 3.5 18-Uvr-916191:40 Prothrombin Time (PT) Comments: PERFORMED BY: [employer]70 [facility] [id number] Prothrombin Time 26.4 {sec} (Abnormal) Range: 8.7-11.5 INR 2.7 (Abnormal) Range: 0.8-1.2 Comments: Reference interval is for non-anticoagulated patients..Suggested INR therapeutic range for Vitamin Kantagonist therapy:Standard Dose (moderate intensitytherapeutic range): 2.0 - 3.0Higher intensity therapeutic range 2.5 - 3.5 1-Zee-728193:16 Prothrombin Time (PT) Comments: PERFORMED BY: [employer]6370 [facility] [id number] Prothrombin Time 14.1 {sec} (Abnormal) Range: 8.7-11.5 INR 1.4 (Abnormal) Range: 0.8-1.2 Comments: Reference interval is for non-anticoagulated patients..Suggested INR therapeutic range for Vitamin Kantagonist therapy:Standard Dose (moderate intensitytherapeutic range): 2.0 - 3.0Higher intensity therapeutic range 2.5 - 3.5 63-Asq-377526:04 PT (Prothrobim Time) Comments: inr; PATIENT NOT FASTINGPERFORMED BY: [employer] Sxkuqp0874 [facility] [id number] Information: ADD DRAW FEE [id number] AND J0 [id number] (48240) Prothrombin Time 36.2 {sec} (Abnormal) Range: 8.7-11.5 INR 3.7 (Abnormal) Range: 0.8-1.2 Comments: Client Requested FlagReference interval is for non-anticoagulated patients..Suggested INR therapeutic range for Vitamin Kantagonist therapy:Standard Dose (moderate intensitytherapeutic range): 2.0 - 3.0Higher intensity therapeutic range 2.5 - 3.5 :03 TSH (60758) Comments: PATIENT WAS FASTINGPERFORMED BY: [facility]6370 [facility] [id number] TSH 0.329 {uIU/mL} (Abnormal) Range: 0.450-4.500 :03 URINALYSIS, W/ MICRO (46724) Comments: PATIENT WAS FASTINGPERFORMED BY: [place] 1069470 [facility] [id number] Bilirubin Negative (Normal) Microscopic Examination See below: (Normal) Nitrite, Urine Negative (Normal) Occult Blood 2+ (Abnormal) Urobilinogen,Semi-Qn 0.2 mg/dL (Normal) Range: 0.0-1.9 Glucose Negative (Normal) Ketones Negative (Normal) Protein 1+ (Abnormal) WBC Esterase 3+ (Abnormal) Appearance Clear (Normal) pH 6.0 (Normal) Range: 5.0-7.5 Specific [place] 1.024 (Normal) Range: 1.005-1.030 Urine-Color Yellow (Normal) :03 MICROALBUMIN: CREATININE RATIO Comments: PATIENT WAS FASTINGPERFORMED BY: [place] 1069470 [facility] [id number] (61238) AND (83963) Microalb/Creat Ratio 76.6 {mg/g_creat} (Abnormal) Range: 0.0-30.0 Creatinine, Urine 298.9 mg/dL (Abnormal) Range: 15.0-278.0 Microalbumin, Urine 229.0 ug/mL (Abnormal) Range: 0.0-17.0 :03 METABOLIC PANEL, COMPREHENSIVE Comments: PATIENT WAS FASTINGPERFORMED BY: [place] 1069470 [facility] [id number] (80440) A/G Ratio 1.5 (Normal) Range: 1.1-2.5 Albumin, [...] Glucose, Serum 83 mg/dL (Normal) Range: 65-99 3-Sto-638984:03 LIPID PANEL (49529) Comments: PATIENT WAS FASTINGPERFORMED BY: LabCoInspira Medical Center WoodburyLleuau0165 [facility] [id number] LDL/HDL Ratio 1.1 {ratio_units} (Normal) Range: 0.0-3.2 HDL Cholesterol 57 mg/dL (Normal) Comments: According to ATP-III Guidelines, HDL-C >59 mg/dL is considered anegative risk factor for CHD. LDL Cholesterol Calc 62 mg/dL (Normal) Range: 0-99 VLDL Cholesterol Richard 20 mg/dL (Normal) Range: 5-40 Cholesterol, Total 139 mg/dL (Normal) Range: 100-199 Triglycerides 98 mg/dL (Normal) Range: 0-149 6-Ckj-444901:03 CBC WITH MANUAL DIFF Comments: PATIENT WAS FASTINGPERFORMED BY: NUVIA Plutus SoftwareInspira Medical Center WoodburyVslsag36[address] [place] [address] [id number] Information: [id number] (09880) Baso (Absolute) 0.0 {x10E3/uL} (Normal) Range: 0.0-0.2 [...] 3.80-5.10 WBC 4.0 {x10E3/uL} (Normal) Range: 4.0-10.5 9-Ldd-626381:17 Prothrombin Time (PT) Comments: PERFORMED BY: NUVIA [facility]6370 [facility] [id number] INR 1.2 (Normal) Range: 0.8-1.2 Comments: Reference interval is for non-anticoagulated patients. . Suggested INR therapeutic range for Vitamin K anta gonist therapy: Standard Dose (moderate intensity therapeutic range): 2.0 - 3.0 Higher intensity therapeutic range 2.5 - 3.5 Prothrombin Time 12.1 {sec} (Abnormal) Range: 8.7-11.5 :56 Prothrombin Time (PT) Comments: PERFORMED BY: [employer]70 [facility] [id number] INR 1.7 (Abnormal) Range: 0.8-1.2 Comments: Reference interval is for non-anticoagulated patients. . Suggested INR therapeutic range for Vitamin K anta gonist therapy: Standard Dose (moderate intensity therapeutic range): 2.0 - 3.0 Higher intensity therapeutic range 2.5 - 3.5 Prothrombin Time 17.0 {sec} (Abnormal) Range: 8.7-11.5 :26 CBC With Differential/Platelet Comments: PERFORMED BY: [employer]6370 [facility] [id number] Baso (Absolute) 0.0 {x10E3/uL} (Normal) Range: 0.0-0.2 [...] 11.7-15.0 WBC 4.6 {x10E3/uL} (Normal) Range: 4.0-10.5 63-Ejp-81318:26 Comp. Metabolic Panel (14) Comments: PERFORMED BY: [facility]6370 [facility] [id number] A/G Ratio 1.5 (Normal) Range: 1.1-2.5 Albumin, [...] Microalb/Creat Ratio, Randm Ur Comments: PERFORMED BY: LIA [facility] [id number] Creatinine, Urine 193.6 mg/dL (Normal) Range: 15.0-278.0 Microalb/Creat Ratio 7.4 {mg/g_creat} (Normal) Range: 0.0-30.0 Microalbumin, Urine 14.3 ug/mL (Normal) Range: 0.0-17.0 :26 NMR LipoProfile Comments: PERFORMED BY: [employer]70 [facility] [id number] Cholesterol, Total 159 mg/dL (Normal) HDL-C 55 [...] :26 Prothrombin Time (PT) Comments: PERFORMED BY: [employer] [facility] [id number] INR 1.1 (Normal) Range: 0.8-1.2 Comments: Reference interval is for non-anticoagulated patients. . Suggested INR therapeutic range for Vitamin K anta gonist therapy: Standard Dose (moderate intensity therapeutic range): 2.0 - 3.0 Higher intensity therapeutic range 2.5 - 3.5 Prothrombin Time 11.0 {sec} (Normal) Range: 8.7-11.5 :2 TSH 0.296 {uIU/mL} Comments: PERFORMED BY: [employer]70 [facility] [id number] (Abnormal) Range: 0.450-4.500 :33 Prothrombin Time (PT) Comments: PERFORMED BY: LIA [facility] [id number] INR 3.3 (Abnormal) Range: 0.8-1.2 Comments: Reference interval is for non-anticoagulated patients. . Suggested INR therapeutic range for Vitamin K anta gonist therapy: Standard Dose (moderate intensity therapeutic range): 2.0 - 3.0 Higher intensity therapeutic range 2.5 - 3.5 Prothrombin Time 31.8 {sec} (Abnormal) Range: 8.7-11.5 :44 Prothrombin Time (PT) Comments: PERFORMED BY: LIA [facility] [id number] INR 1.1 (Normal) Range: 0.8-1.2 Comments: Reference interval is for non-anticoagulated patients. . Suggested INR therapeutic range for Vitamin K anta gonist therapy: Standard Dose (moderate intensity therapeutic range): 2.0 - 3.0 Higher intensity therapeutic range 2.5 - 3.5 Prothrombin Time 11.4 {sec} (Normal) Range: 8.7-11.5 :53 PT/INR, Office (94971) Comments: PATIENT NOT FASTINGClinical Information: ADD [id number] PERFORMED BY: [employer] Khepqo7418 [facility] [id number] INR 4.3 (Abnormal) Range: 0.8-1.2 Comments: Reference interval is for non-anticoagulated patients. . Suggested INR therapeutic range for Vitamin K anta gonist therapy: Standard Dose (moderate intensity therapeutic range): 2.0 - 3.0 Higher intensity therapeutic range 2.5 - 3.5 Prothrombin Time 41.2 {sec} (Abnormal) Range: 8.7-11.5 43-Cdj-428245:42 PT/INR, Office (66264) Comments: done>Wf. INR 4.0 (Normal) 01-Yrs-732362:56 CBC With Differential/Platelet Comments: PATIENT WAS FASTINGPERFORMED BY: LabCoInspira Medical Center WoodburyElxxbp8890 [facility] [id number] Baso (Absolute) 0.0 {x10E3/uL} (Normal) Range: 0.0-0.2 [...] 11.7-15.0 WBC 4.3 {x10E3/uL} (Normal) Range: 4.0-10.5 30-Suv-855348:56 Comp. Metabolic Panel (14) Comments: PATIENT WAS FASTINGPERFORMED BY: [facility]Children[facility] Gmttqn1309 [facility] [id number] A/G Ratio 1.6 (Normal) Range: 1.1-2.5 Albumin, [...] Sodium, Serum 142 mmol/L (Normal) Range: 135-145 07-Nvy-035949:56 Microscopic Examination Comments: PATIENT WAS FASTINGPERFORMED BY: [employer] [facility] [id number] Bacteria Few (Normal) Cast Type Hyaline casts (Normal) Casts Present {/lpf} (Abnormal) Crystal Type Calcium Oxalate (Normal) Crystals Present (Abnormal) Epithelial Cells (non renal) 0-10 {/hpf} (Normal) Range: 0 - 10 Mucus Threads Present (Normal) RBC 4-10 {/hpf} (Abnormal) Range: 0 - 3 WBC 11-30 {/hpf} (Abnormal) Range: 0 - 5 78-Jxk-879637:56 NMR LipoProfile Comments: PATIENT WAS FASTINGPERFORMED BY: [employer] [facility] [id number] HDL-C 65 mg/dL (Normal) Large HDL-P 13.0 [...] 0.110 {uIU/mL} Comments: PATIENT WAS FASTINGPERFORMED BY: [employer] [facility] [id number] :56 (Abnormal) Range: 0.450-4.500 67-Amk-229395:56 Urinalysis, Routine Comments: PATIENT WAS FASTINGPERFORMED BY: IconicfutureMary [facility]6370 [facility] [id number] Appearance Clear (Normal) Bilirubin Negative (Normal) Glucose Negative (Normal) Ketones Negative (Normal) Microscopic Examination See below: (Normal) Nitrite, Urine Negative (Normal) Occult Blood Trace (Abnormal) pH 5.0 (Normal) Range: 5.0-7.5 Protein Negative (Normal) Specific [place] 1.020 (Normal) Range: 1.005-1.030 Urine-Color Yellow (Normal) Urobilinogen,Semi-Qn 0.2 mg/dL (Normal) Range: 0.0-1.9 WBC Esterase 2+ (Abnormal) Vitamin D, 25-Hydroxy 34.8 ng/mL (Normal) Comments: PATIENT WAS FASTINGPERFORMED BY: [employer] SoftwareInspira Medical Center WoodburyUhdryt0594 [facility] [id number] 2:56 Range: 32.0-100.0 Comments: Recent studies consider the lower limit of 32.0 ng/mL to be athreshold for optimal health.Sameer KRISHNA. J Nutr. 2004;135(2):317-22. 3-Tuj-917216:36 PT/INR, Office (09735) Comments: done>Wf.no change zaida 2 weeks INR 2.7 (Normal) 37-Ivp-178746:04 PT/INR, Office (84337) Comments: done BC INR 2.3 (Normal) 64-Lnx-132161:17 PT/INR, Office (98683) INR 3.2 (Normal) 9-Psp-409773:14 PT/INR, Office (36543) INR 2.7 (Normal) 16-Rvi-959819:31 LOWER EXT/JT ONLY (ROUTINE) Radiology Report See Note (Normal) Comments: Exam Number: [id number] MRI LEFT KNEE REASON FOR EXAMINATION Post [...] By: BRITNEY JONES M.D. :59 PT/INR, Office (85887) Comments: done kmforgot to take to [place] for 10 days has been back a month and still low INR 1.1 (Normal) :17 TSH 0.01 {uIU/mL} (Abnormal) Range: 0.34-4.82 :55 PT/INR, Office (59208) INR 2.2 (Normal) PT (PROTHROMBIN TIME) INR-2.2 s (Normal) Range: 11.5-13.5 :18 PT/INR, Office (10019) Comments: done>Wf. INR 1.7 (Normal) :58 PT/INR, Office (94523) Comments: 4MG CURRENT DOSE--INR 3.2 NEW DOSE 4 MG 5 DAYS WEEK AND 2 MG 2 DAYS ZAIDA 2 WEEKS INR 3.2 (Normal) PT (PROTHROMBIN TIME) INR-3.2 s (Normal) Range: 11.5-13.5 :23 Prothrombin Time (PT) Comments: PERFORMED BY: [facility] Ycnzxr4951 [facility] [id number] INR 2.1 (Normal) Range: 2.0-3.5 Comments: INR [...] 0.2 EU/dl (Normal) Range: 0.2 - 1.0 9-Rogers-45459:17 TSH < 0.01 {uIU/mL} (Abnormal) Range: 0.34-4.82 :14 PT/INR, Office (47465) INR 2.0 (Normal) :56 PT/INR, Office (72283) INR 1.4 (Normal) :47 PT/INR, Office (68992) INR 2.9 (Normal) PT (PROTHROMBIN TIME) INR-2.9 s (Normal) Range: 11.5-13.5 :12 PT/INR, Office (88144) INR 2.2 (Normal) :22 PT/INR, Office (55258) INR 1.3 (Normal) Comments: aw :38 BILAT SCRN DIGITAL & CAD Radiology Report See Note (Normal) Comments: Exam Number: [id number] MAMMOGRAM, BILATERAL SCREENING DIGITAL AND CAD HISTORYRoutine [...] mammograms werealso examined with computer-aided detection software ([employer], [employer] Reported By: KEYUR MILTON M.D. :38 DEXA BONE DENSITY STUDY (HP) Radiology Report See Note (Normal) Comments: Exam Number: [id number] BONE DENSITOMETRY HISTORYOsteopenia. TECHNIQUE Bone densitometry of [...] left hip. Reported By: KEYUR MILTON M.D. 34-Yfv-286251:41 PT/INR, Office (51382) Comments: 2.0 ok zaida 2-3 weeks INR 2.0 (Normal) :53 PT/INR, Office (12954) Comments: alt 2/4 and zaida 2 weeks inr 3.2 INR 3.2 (Normal) Comments: 0-Izu-477638:10 PT/INR, Office (61544) Comments: done kmno change zaida in 2-3 weeks INR 2.6 (Normal) :52 PT/INR, Office (10310) INR 1.7 (Normal) Comments: :24 CULTURE, URINE [...] Comments: GLU,2HPPG 75gm GLUC PPG GLUP from 0810:Q76576V. :38 CBCD,SMEAR DIFF CELLS COUNTED 100 (Normal) [...] {uIU/mL} (Normal) Range: 0.34-4.82 :45 PT/INR, Office (39031) Comments: done INR 2.7 (Normal) :16 PRO [...] obstruction) SBO (small bowel obstruction) : Reviewed Senior [employer] Team Lead Letter Indication: SBO (small bowel obstruction) Fatigue [...] kidney disease, stage IV (severe) : Reviewed Senior [employer] Team Lead Letter Indication: Chronic kidney disease, stage IV [...] closed fracture of right hip : Reviewed Senior [employer] Team Lead Letter Indication: Status post-operative repair of closed [...] Lab Indication: Hypothyroidism LYMPHOMA, NOS : Reviewed Senior [employer] Team Lead Letter Indication: LYMPHOMA, NOS Hypertension, benign : [...] Indication: Hyperlipidemia, unspecified LYMPHOMA, NOS : Reviewed Senior [employer] Team Lead Letter Indication: LYMPHOMA, NOS Hyperlipidemia, unspecified : [...] Indication: LYMPHOMA, NOS LYMPHOMA, NOS : Reviewed Senior [employer] Team Lead Letter Indication: LYMPHOMA, NOS Hypothyroidism : Hypothyroidism: [...] Indication: Hypertension, benign LYMPHOMA, NOS : Reviewed Senior [employer] Team Lead Letter Indication: LYMPHOMA, NOS COUGH, NOS : [...] lymph nodes of multiple sites : Reviewed Senior [employer] Team Lead Letter Indication: Nodular lymphoma involving lymph nodes [...] lymph nodes of multiple sites : Reviewed Senior [employer] Team Lead Letter Indication: Nodular lymphoma involving lymph nodes [...] Indication: Hyperlipidemia, unspecified Planned Observations THROAT CULTURE (30924)Indication: Sore throat On: 83-Szw-547309:45 Request PT (PROTHROMBIN TIME) (58343)Indication: Therapeutic drug monitoring On: 26-Joz-92578:12 Request Metabolic Panel, Comprehensive (03714)Indication: Chronic kidney disease, stage IV (severe) On: 09-Fkj-151305:40 Request PT (Prothrobim Time) (50884)Indication: nursing home current use of anticoagulant On: 40-Jui-007904:39 Request Comments: call results directly to Dr Steward [phone] Metabolic Panel, Basic (75693)Indication: Chronic kidney disease, stage IV (severe) On: 87-Rwh-012344:35 Request C-REACTIVE PROTEIN (69597)Indication: CRP elevated On: :29 Request Sedimentation Rate-ESR (99053)Indication: CRP elevated On: :29 Request Metabolic Panel, Basic (29300)Indication: Abnormal blood finding On: 83-Mjw-473980:30 Request CALCIFIDIOL (49679) VIT D 25Indication: Chronic fatigue On: 5-Cpg-900735:24 Request VITAMIN B-12 (CYANOCOBALAMIN) (27044)Indication: Chronic fatigue On: 0-Ild-885259:24 Request SED RATE ERYTHROCYTE (81374)Indication: Chronic fatigue On: 1-Jyi-609255:23 Request METABOLIC PANEL, COMPREHENSIVE (58676)Indication: Chronic fatigue On: 3-Vrl-449424:23 Request C-REACTIVE PROTEIN (01859)Indication: Chronic fatigue On: 0-Pdb-489287:23 Request CBC (AUTO) (81521)Indication: Chronic fatigue On: 5-Yxx-804735:23 Request CBC & PLATELETS (AUTO) (07291)Indication: Chronic kidney disease, stage IV (severe) On: 24-Qjl-307747:25 Request Comments: to Dr. Felix Parra IRON & TOTAL IRON BINDING CAPACITY ([id number])Indication: Chronic kidney disease, stage IV (severe) On: 27-Vjf-227252:25 Request Comments: to Dr. Felix Parra PT (PROTHROMBIN TIME) ([id number])Indication: Chronic kidney disease, stage IV (severe) On: 34-Xzi-603464:24 Request Comments: to Dr. 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 On: 32-Ggc-818393:00 Request PT (PROTHROMBIN TIME) ([id number])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 On: 14-Ytc-734023:00 Request Metabolic Panel, Basic ([id number])Indication: Hypertension, benign On: 1-Uce-132449:44 Request FECAL OCCULT- Tubes sent home ([id number])Indication: Encounter for screening for malignant neoplasm of colon (Renamed from Special screening for malignant neoplasms, colon) On: 3-Fjp-153178:25 Request PT (Prothrobim Time) ([id number])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 On: 8-Wms-567593:08 Request URINALYSIS, W/ MICRO ([id number])Indication: Hypertension, benign On: 55-Rhg-266544:45 Request MICROALBUMIN: CREATININE RATIO (05546) AND ([id number])Indication: Hypertension, benign On: 82-Dyl-216825:45 Request LIPID PANEL ([id number])Indication: Hyperlipidemia, unspecified On: 22-Wot-263899:45 Request D-Dimer ([id number])Indication: Difficulty breathing On: 79-Ilb-074827:09 Request Vitamin D Hydroxy ([id number])Indication: Osteopenia On: 33-Wnk-931667:16 Request CBC W/AUTO DIFF WBC (02790)Indication: Hyperlipidemia, unspecified On: 11-Ypl-404752:19 Request Comments: pls assure i get copy of all lab i ordered METABOLIC PANEL, COMPREHENSIVE (73700)Indication: Hyperlipidemia, unspecified On: 59-Rbk-759911:17 Request LIPID PANEL ([id number])Indication: Hyperlipidemia, unspecified On: 88-Idg-933355:17 Request URINALYSIS, W/ MICRO ([id number])Indication: Hypertension, benign On: 09-Anu-869748:11 Request MICROALBUMIN: CREATININE RATIO ([id number]) AND ([id number])Indication: Hypertension, benign On: 36-Tpb-160904:11 Request CALCIFIDIOL (60282) VIT D 25Indication: FATIGUE On: 61-Xng-503418:31 Request Folate (84774)Indication: FATIGUE On: : Request VITAMIN B-12 (CYANOCOBALAMIN) (13005)Indication: FATIGUE On: Request SED RATE ERYTHROCYTE (31900)Indication: FATIGUE On: Request RHEUMATOID FACTOR-QUANT (80778)Indication: FATIGUE On: : Request METABOLIC PANEL, COMPREHENSIVE (61329)Indication: FATIGUE On: Request C-REACTIVE PROTEIN (52750)Indication: FATIGUE On: Request CBC (AUTO) ([id number])Indication: FATIGUE On: Request ZAY (ANTINUCLEAR ANTIBODY) (64409)Indication: FATIGUE On: Request URINALYSIS, W/ MICRO (02792)Indication: Hypertension, benign On: : Request MICROALBUMIN: CREATININE RATIO (14488) AND (54260)Indication: Hypertension, benign On: : Request LIPID PANEL (41641)Indication: Hyperlipidemia, unspecified On: : Request URINE ANURAG CULTURE-TYSON COL COUNT (76975)Indication: Urinary frequency On: :06 Request URINALYSIS, W/ MICRO ([id number])Indication: Hypertension, benign On: 89-Qkw-066251:56 Request MICROALBUMIN: CREATININE RATIO (33410) AND (91256)Indication: Hypertension, benign On: 63-Voj-036153:56 Request METABOLIC PANEL, COMPREHENSIVE ([id number])Indication: Hypertension, benign On: 20-Stj-251481:56 Request CBC WITH MANUAL DIFF ([id number])Indication: Hypertension, benign On: 78-Bxt-111635:56 Request LIPID PANEL ([id number])Indication: Hyperlipidemia, unspecified On: 95-Pkg-173398:56 Request CBC with manual diff ([id number])Indication: LYMPHOMA, NOS On: 7-Gby-148391:15 Request Comments: pls fax a copy to [phone] PT (Prothrobim Time) ([id number])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 On: 1-Szd-944914:14 Request Comments: pls fax a copy to [phone] PTT (Activated Partial Thromboplastin Time) (07400)Indication: nursing home current use of anticoagulant On: 4-Wba-055143:14 Request LDH (LD) (LACTATE DEHYDROGENASE) ([id number])Indication: LYMPHADENITIS, ACUTE (683.) On: 05-Ipk-171435:37 Request SED RATE ERYTHROCYTE (35704)Indication: LYMPHADENITIS, ACUTE (683.) On: :36 Request C-REACTIVE PROTEIN ([id number])Indication: LYMPHADENITIS, ACUTE (683.) On: :36 Request CBC WITH MANUAL DIFF (63293)Indication: LYMPHADENITIS, ACUTE (683.) On: :36 Request METABOLIC PANEL, COMPREHENSIVE ([id number])Indication: LYMPHADENITIS, ACUTE (683.) On: :36 Request CALCIUM, IONIZED (30930)Indication: Hypercalcemia On: :03 Request CALCIUM SERUM (61257)Indication: Hypercalcemia On: 1-Zzv-505046:03 Request Metabolic Panel, Comprehensive ([id number])Indication: Hyperlipidemia, unspecified On: 81-Fob-351636:33 Request T4, FREE (THYROXINE) (94142)Indication: Hypothyroidism On: 29-Vud-474725:15 Request T3, FREE (TRIDOTHYRONINE) (32313)Indication: Hypothyroidism On: 82-Lcg-663314:15 Request LIPOPROTEIN, BLD, BY NMR ([id number])Indication: Hypertension, benign On: 1-Xxc-534359:50 Request METABOLIC PANEL, COMPREHENSIVE (34090)Indication: Hypertension, benign On: 71-Eva-636798:52 Request MICROALBUMIN: CREATININE RATIO ([id number]) AND ([id number])Indication: Hypertension, benign On: 03-Syd-954618:52 Request LIPOPROTEIN, BLD, BY NMR ([id number])Indication: Hypertension, benign On: :52 Request LIPID PANEL ([id number])Indication: Hypertension, benign On: 36-Gjy-653929:52 Request CBC WITH MANUAL DIFF ([id number])Indication: Hypertension, benign On: 99-Gmp-068632:52 Request Vitamin D Hydroxy ([id number])Indication: Osteoporosis On: 0-Uzb-747018:35 Request URINALYSIS W/O MICRO ([id number])Indication: Hypertension, benign On: 9-Ari-561662:35 Request MICROALBUMIN: CREATININE RATIO ([id number]) AND ([id number])Indication: Hypertension, benign On: 2-Fqk-798323:35 Request METABOLIC PANEL, COMPREHENSIVE ([id number])Indication: Hypertension, benign On: :35 Request LIPOPROTEIN, BLD, BY NMR ([id number])Indication: Hypertension, benign On: 6-Guq-903012:35 Request LIPID PANEL ([id number])Indication: Hypertension, benign On: :35 Request CBC WITH MANUAL DIFF ([id number])Indication: Hypertension, benign On: :35 Request PT/INR, Office ([id number])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 On: :32 Request Comments: done awinr 2.8 same dose zaida 2-3 weeks PT/INR, Office (02414)Indication: Other pulmonary embolism and infarction On: :55 Request URINALYSIS W/O MICRO ([id number])Indication: Hypertension, benign On: 54-Hid-272511:47 Request MICROALBUMIN URINE QUANT ([id number])Indication: Hypertension, benign On: 27-Vpm-956094:47 Request LIPID PANEL ([id number])Indication: Hypertension, benign On: 66-Rwb-163677:47 Request METABOLIC PANEL, COMPREHENSIVE ([id number])Indication: Hypertension, benign On: 24-Zmj-830009:47 Request CBC WITH MANUAL DIFF ([id number])Indication: Hypertension, benign On: 28-Lnd-514533:47 Request PT/INR, Office ([id number])Indication: Other pulmonary embolism and infarction On: 72-Nxy-569400:19 Request PT/INR, Office ([id number])Indication: Other pulmonary embolism and infarction On: 96-Fcv-507039:49 Request Glucose, PP/2 Hour ([id number])Indication: Family history of diabetes mellitus On: :17 Request URINALYSIS W/O MICRO (22109)Indication: Hypertension, benign On: :17 Request METABOLIC PANEL, COMPREHENSIVE (31054)Indication: Hypertension, benign On: :17 Request MICROALBUMIN URINE QUANT ([id number])Indication: Hypertension, benign On: :17 Request LIPID PANEL ([id number])Indication: Hypertension, benign On: :17 Request CBC WITH MANUAL DIFF ([id number])Indication: Hypertension, benign On: :17 Request PT/INR, Office ([id number]) On: :[address] - Abdomen (Without Contrast)By: On: 03-Jan-2018 Intent Anya Steward DO, DO, Kathleen CT SCAN OF ABDOMEN WITH CONTRAST On: 22-Dec-2017 Intent ([id number])By: Anya Steward DO, DO, Kathleen CT - Abdomen & Pelvis (IV Contrast On: 19-Jun-2017 Intent Needed)By: Anya Steward DO, DO, Kathleen PFT - CompleteBy: Stoney MURRIETA, On: 15-Jun-2017 Intent Anya Dumont DO Comments: with DLCO B 12 Injection, 1000 mcg (J3420)By: On: 15-Jun-2017 Intent Anya Steward DO, DO, Comments: 1ml given lt dltd lot [id number] exp 09/18 Anya Radiology - Chest- PA and LatBy: On: 15-Jun-2017 Intent Anya Steward DO, DO, Kathleen Spirometry ([id number])By: Stoney MURRIETA, On: 15-Jun-2017 Intent Anya Dumont DO Comments: moderate obstruction ELECTROCARDIOGRAM, COMPLETE (ECG) On: 15-Jun-2017 Intent (02214)By: Anya Steward DO Comments: nsr no acute chg Anya Steward DO Radiology - Abdomen SeriesBy: On: 15-May-2017 Intent Yolanda Zarco SCREENING DIGITAL TOMOSYNTHESIS OF On: 14-Dec-2016 Intent BREAST ([id number])By: Anya Steward DO, DO, Kathleen MRI OF THORACIC SPINE WITHOUT On: 05-Dec-2016 Intent CONTRAST ([id number])By: Anya Steward DO, DO, Kathleen Inhaler Demo ([id number])By: Stoney MURRIETA, On: 23-Sep-2016 Intent Anya Dumont DO Spirometry (25261)By: Stoney MURRIETA, On: 23-Sep-2016 Intent Anya Dumont DO Comments: restrictive pattern Radiology - Chest- PA and LatBy: On: 23-Sep-2016 Intent Anya Steward DO Stoney DO, Anya Aerosol Treatment ([id number])By: Stoney On: 23-Sep-2016 Intent DOAnya Stoney DOAnya Comments: 0.83% albulterol more a/e more noisy with diffuse inspir and exp wheeze DEXA SCAN AXIAL SKELETON ([id number])By: On: 02-Nov-2015 Intent Anya Steward DO DOAnya MAMMOGRAM, SCREENING, BOTH BREAST On: 02-Nov-2015 Intent ([id number])By: Anya Steward DO, DO, Kathleen Inhaler Demo ([id number])By: Stoney MURRIETA, On: 07-Oct-2015 Intent Anya Dumont DO Aerosol Treatment ([id number])By: Stoney On: 07-Oct-2015 Intent Anya MURRIETA DO, Kathleen Comments: no hweeze but still tight Radiology - Chest- PA and LatBy: On: 07-Oct-2015 Intent Anya Steward DO, DO, Kathleen Radiology - Cervical SpineBy: Stoney On: 17-Sep-2015 Intent Anya MURRIETA DO, Kathleen CT - ChestBy: Anya Steward DO On: 16-Jan-2015 Intent Anya Steward DO Doppler Ultrasound OtherBy: Stoney On: 14-Jan-2015 Intent DOAnya StoneyAnay basurto DO Comments: b/l lower extremities COMPUTED TOMOGRAPHY ANGIOGRAPHY OF On: 14-Jan-2015 Intent CHEST FOR PULMONARY EMBOLISM Comments: Pls call [phone] with wet read ([id number])By: Anya Steward DO, DO, Kathleen Radiology - ChestBy: Stoney MURRIETA, On: 14-Jan-2015 Intent Anya Castellanoson Anya MURRIETA OtherBy: Anya Steward DO On: 14-Jan-2015 Intent Anya MURRIETA Comments: 3-phase bone scan-- history of lymphoma and osteopenia Btrrcrjqw-Gut-Abgdv ([id number])By: On: 12-Dec-2014 Intent Anya Steward DO, DO, Kathleen DEXA SCAN AXIAL SKELETON (53829)By: On: 19-Nov-2014 Intent Anya Steward DO, DO, Kathleen Radiology - Hip - RightBy: Stoney On: 22-Oct-2014 Intent Anya MURRIETA DO, Kathleen Prevnar 13 (08994)By: Stoney MURRIETA, On: 10-Jul-2014 Intent Anya Dumont DO EKG (77670)By: Anya Steward DO On: 10-Jul-2014 Intent Anya Steward DO Comments: sinus nicolas noacute chg FLU VAC, SPLIT, >3 YEARS, INTRAMUSC On: 22-May-2013 Intent (21648)By: Sariah Brantley LPN Comments: lot [id number] 2014site/route L thomas, IMamt 0.5mlVIS and ABN [facility]MINIST[facility]ATION OF [facility]FLUENZA VIRUS On: 22-May-2013 Intent VACCINE (G0008)By: Sariah Brantley LPN B 12 Injection, 1000 mcg (J3420)By: On: 15-Apr-2013 Intent Akosua Gannon Comments: Lot:[id number]:Dose:1mlRoute:IMSite:l armGiven By:OLIVIER signed Eprescribed prescriptions ([id number])By: On: 15-Apr-2013 Akosua Kirby EKG (77605)By: Anya Steward DO On: 18-Feb-2013 Intent Anya Steward DO Comments: nsr no acute chg B 12 Injection, 1000 mcg (J3420)By: On: 18-Feb-2013 Intent Anya Steward DO, DO, Comments: lot: [id number]: 01/11site/route: R deltoid/IMamt: 1mLVIS signed [facility]Henry [facility] Anya TDAP VACCINE >7 IM (05046)By: Stoney On: 18-Feb-2013 Anya Fernandez DO, DO, Kathleen Comments: lot: [id number]: 05/08/15site/route: L deltoid/IMamt: 0.5mLVIS signed when applicable: Wilfredo, ROBINSON MAMMOGRAM, SCREENING, BOTH BREASTS On: 18-Feb-2013 Intent (70075)By: Anya Steward DO Comments: dx screening Anya Steward DO Eprescribed prescriptions (G8553)By: On: 18-Feb-2013 Intent Yolanda Dove LPN Toradol Injection, 30 mg (J1885)By: On: 13-Nov-2012 Intent Madonna Nation LPN Comments: Lot #[id number]-7/14Site-right hipDose-30mggiven by: Yony Nation LPN Radiology - ChestBy: Miri Polanco CNP On: 13-Nov-2012 Intent E Comments: attention Rt ribs SPECIMEN HNDLNG/TRNSPRT, OFFC > LAB On: 24-Sep-2012 Intent (20101)By: Sariah Brantley LPN Eprescribed prescriptions ([id number])By: On: 06-Sep-2012 Intent Anya Steward DO, DO, Kathleen FLU VAC, SPLIT, >3 YEARS, INTRAMUSC On: 08-Jun-2012 Intent (32616)By: Miri Polanco CNP Comments: Lot:[id number]:6.13Amt:prefilled syringeSite: L Dltd, IMGiven by: ELICEO EspanaVIS signed ADMINISTRATION OF INFLUENZA VIRUS On: 08-Jun-2012 Intent VACCINE (G0008)By: Miri Polanco CNP Eprescribed prescriptions (G8553)By: On: 04-Apr-2012 Intent Miri Polanco CNP SPECIMEN HANDLING/TRANSPORT On: 04-Apr-2012 Intent ([id number])By: Sariah Brantley LPN EKG (47699)By: Anya Steward DO On: 22-Jun-2011 Intent Anya [...] SPLIT, >3 YEARS, INTRAMUSC On: 25-May-2011 Intent (68794)By: Anya Steward DO Comments: 0.5cc given im lt arm lot [id number] exp 01-28-12 Anya Steward DO ADMINISTRATION OF INFLUENZA VIRUS On: 25-May-2011 Intent VACCINE (G0008)By: Anya Steward DO, DO, Kathleen CT - Abdomen & Pelvis (IV Contrast On: 25-May-2011 Intent Needed)-- attention to mass in R groin-- pt has lymphoma in remissionBy: Anya Steward DO, DO, Kathleen Solu -Medrol Injection, 125 mg On: 18-Apr-2011 Intent (J2930)By: Miri Polanco CNP Comments: Lot #[id number]-L hip, IMDose 125mggiven by:DEYANIRA MRI - BrainBy: Miri Polanco CNP On: 17-Mar-2011 Intent Comments: today if possible Carotid DopplerBy: Miri Polanco CNP On: 17-Mar-2011 Intent DXA, BONE DENSITY, AXIAL SKELETON On: 23-Dec-2010 Intent ([id number])By: Anya Steward DO, DO, Kathleen EKG (46511)By: Anya Steward DO On: 23-Dec-2010 Intent Anya Setward DO Comments: nsr no acute chg MRI [...] SPLIT, >3 YEARS, INTRAMUSC On: 07-Jul-2010 Intent (76170)By: Yolanda Dove LPN Comments: 0.5cc given im lt arm lot [id number] 4p exp 4-11 ADMINISTRATION OF INFLUENZA VIRUS On: 07-Jul-2010 Intent VACCINE (G0008)By: Yolanda Dove LPN ADMINISTRATION OF PNEUMOCOCCAL On: 13-Apr-2009 Intent VACCINE (G0009)By: Anya Steward DO, DO, Kathleen PNEUM VAC ADLT/IMUMNOSPR, SBC/INTRM On: 13-Apr-2009 Intent (79448)By: Anya Steward DO Comments: 0.5cc given im rt dltd lot [id number] exp 01-01-10 Anya Steward DO EKG (89633)By: Yolanda Dove LPN On: 13-Apr-2009 Intent Comments: rob beckwith no acute changes IMMUNIZ ADMNIN, 1 VAC, SNGL/COMBO On: 13-Apr-2009 Intent (16738)By: Yolanda Dove LPN FLU VAC, SPLIT, >3 YEARS, INTRAMUSC On: 13-Apr-2009 Intent (58342)By: Yolanda Dove LPN Comments: rob andrade 0.5 cc given im [place]omas lot [id number] 4p exp - MRI - Knee(s) - LeftBy: Stoney MURRIETA, On: 20-Jun-2008 Intent Anya Dumont DO EKG (39349)By: Anya Steward DO On: 18-Feb-2008 Intent Anya Steward DO Comments: NSR NO ACUTE CHANGES--NONSPECIFIC CHANGESNO CHANGES DXA, BONE DENSITY, AXIAL SKELETON On: 09-Jul-2007 Intent (74410)By: Anya Setward DO, DO, Kathleen MAMMOGRAM, SCREENING, BOTH BREASTS On: 09-Jul-2007 Intent (41545)By: Anya Steward DO, DO, Kathleen EKG (42916)By: Anya Steward DO On: 28-Feb-2007 Intent Anya [...] 23.0-23.9, adult, Non-smoker, Abdominal pain, Hematuria, gross, 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, Nodular lymphoma involving [...] 13-Jul-2017 11:14 Therapeutic drug monitoring, Edema extremities, 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 The patient has [...] and other. 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 Encounter Diagnosis: Hypothyroidism (244.9), Nodular lymphoma involving [...] The patient does have durable power of employment law attorney and living will. The patient has noticed dissatisfaction with life, dropping activities and interests, feeling helpless, feeling worthless, lack of energy and thinking mos t people are better off than them. Other providers contributing to the patient's care are culvert installer (Dr. Martino) and other: (Dr. Shields for [...] cough or fatigue.Encounter Diagnosis: PHARYNGITIS, ACUTE (462.), [place] (372.03) [facility] Office Visit [...]
--- OUTSIDE RECORDS SUMMARY | 2018-08-24 20:37 | XMS RPT_ITS ---
:1935 Author Organization [place] Support Name Relationship Address Phone MEREDITH WHITFIELD Sister [address] [place] [address] RD + [address] [place] [address] R Unknown Unavailable Unavailable TOPOLALA NIALL/POA [employer] [address] + [place] [address] MEREDITH WHITFIELD Sister [address] [place] [address] RD + [address] [place] [address] R Unknown Unavailable Unavailable TOPOLALA NIALL/POA [facility] [address] + [place] [address] MEREDITH WHITFIELD Sister [address] [place] [address] RD + [address] [place] [address] R Unknown Unavailable Unavailable TOPOLALA NIALL/POA [employer] [address] + [place] [address] MEREDITH WHITFIELD Sister [address] [place] [address] RD + [address] [place] [address] R Unknown Unavailable Unavailable TOPOLALA NIALL/POA [facility] [address] + [place] [address] MEREDITH WHITFIELD Sister [address] [place] [address] RD + [address] [place] [address] R Unknown Unavailable Unavailable TOPOVSELIAS NIALL/POA [facility] [address] + [place] [address] MEREDITH WHITFIELD Sister [address] [place] [address] RD + [address] [place] [address] R Unknown Unavailable Unavailable TOPOVSELIAS, NIALL/POA [employer] [address] + [place] [address] MEREDITH WHITFIELD Sister [address] [place] [address] RD + [address] [place] [address] R Unknown Unavailable Unavailable TOPOVSKI NIALL/POA [employer] [address] + [place] [address] MEREDITH WHITFIELD Sister [address] [place] [address] RD + [address] [place] [address] R Unknown Unavailable Unavailable TOPOVSKI NIALL/POA [facility] [address] + [place] [address] MEREDITH WHITFIELD Sister [address] [place] [address] RD + [address] [place] [address] R Unknown Unavailable Unavailable TOPOVSKI NIALL/POA [facility] [address] + [place] [address] MEREDITH WHITFIELD Sister [address] [place] [address] RD + [address] [place] [address] R Unknown Unavailable Unavailable TOPOVSKI NIALL/POA [facility] [address] + [place] [address] MEREDITH WHITFIELD Sister [address] [place] [address] RD + [address] [place] [address] R Unknown Unavailable Unavailable TOPOVSKI NIALL/POA [facility] [address] + [place] [address] MEREDITH WHITFIELD Sister [address] [place] [address] RD + [address] [place] [address] R Unknown Unavailable Unavailable TOPOVSELIAS NIALL/POA [facility] [address] + [place] [address] MEREDITH WHITFIELD Sister [address] [place] [address] RD + [place] [address] R Unknown Unavailable Unavailable TOPOVSKI NIALL/POA [facility] [address] + [place] [address] MEREDITH WHITFIELD Sister [address] [place] [address] RD + [place] [address] R Unknown Unavailable Unavailable TOPOVSKI, NIALL/POA [facility] [address] + [place] [address] Care Team Providers Name Role Phone Keaton Young Attending Unavailable Anya Steward Primary Care Unavailable Nichelle, Anya Referring Unavailable Keaton Young Attending Unavailable Donald, Radha Attending Unavailable Nichelle, Anya Primary Care Unavailable Keaton Young Attending Unavailable Nichelle, Anya Primary Care Unavailable Keaton Young Referring Unavailable Tanphaichitr, Natthavat Consulting Unavailable Nichelle, Anya Primary Care Unavailable Ungeliana, Remus Attending Unavailable Hector, Keaton Attending Unavailable Nichelle, Anya Primary Care Unavailable Keaton Young Consulting Unavailable Sergio Rivero Attending Unavailable Keaton Young Referring Unavailable Aileen, Jayaprakash Attending Unavailable Nichelle, Anya Primary Care Unavailable Nichelle, Anya Attending Unavailable Nichelle, Anya Referring Unavailable Nichelle, Anya Primary Care Unavailable Hector, Keaton Attending Unavailable Nichelle, Anya Referring Unavailable Nichelle, Anya Primary Care Unavailable Keaton Young Consulting Unavailable Aileen, Jayaprakash Attending Unavailable Aileen, Jayaprakash Referring Unavailable Nichelle, Anya Primary Care Unavailable JARRELL KATE Attending Unavailable Nichelle, Anya Primary Care Unavailable JARRELL KATE Referring Unavailable Fred Huerta Attending Unavailable JARRELL KATE Referring Unavailable Nichelle, Anya Primary Care Unavailable Ungur, Remus Attending Unavailable KEVON, CHRISTINA Attending Unavailable MALINA RAMOS Attending Unavailable CHRISTINA BAEZA Referring Unavailable CHRISTINA BAEZA Attending Unavailable JARERLL KATE Attending Unavailable NICHELLE, ANYA KEITH Referring Unavailable Nichelle DO, Anya Attending Unavailable Nichelle DO, Anya Referring Unavailable Nichelle DO, Anya Consulting Unavailable JARRELL KATE Attending Unavailable NICHELLE, KATHLEE Referring Unavailable NICHELLE, KATHLEE Primary Care Unavailable Purpose Purpose PROBLEMS PROBLEMS DATE TYPE CONDITION / CODE ATTENDING STATUS SOURCE 05/11/2018 Active Thoracic aortic JARRELL KATE Active Garcia aneurysm, without [facility] Other rupture / [place] I71.2(ICD-10) Repository 05/11/2018 Admitting Unknown / JARRELL KATE Active [place] [facility] diagnosis UNK(Unknown) [facility] Repository 02/28/2018 Unknown 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, Community unspecified, Hospital unspecified site / Repository C85.90(ICD-10) 02/28/2018 Unknown 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, Community unspecified, Hospital unspecified site / Repository C82.90(ICD-10) 02/28/2018 [facility] [place] [facility], Community unspecified / Hospital N18.9(ICD-10) Repository 02/28/2018 Unknown D63.1 - [facility] [place] [facility] disease / Hospital D63.1(ICD-10) Repository 01/24/2018 Unknown R10.9 - Unspecified Nichelle, Active [place] abdominal pain / Anya Community R10.9(ICD-10) Hospital Repository 08/08/2017 Unknown R06.02 - Shortness [facility] [place] Active [place] of breath / Community R06.02(ICD-10) Hospital Repository 09/15/2017 Unknown R06.09 - Other forms [place], Active [place] of dyspnea / Sergio Community R06.09(ICD-10) Hospital Repository 07/28/2017 Unknown 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 [facility] [place] Active [place] (current) [facility] anticoagulants / Hospital Z79.01(ICD-10) Repository PROCEDURES PROCEDURES No Procedure Records FoundVITAL SIGNS VITAL SIGNS No Vital Signs Records FoundRESULTS RESULTS VENOUS DUPLEX LOWER Observed: 07/02/2018 Status: F Source: [place] EXTREMITY 6:03 AM [facility] Cardiovascular Services [address] [place] [address] Venous Duplex US, Unilateral 06/30/18 1341 MR#: [id number] Acct: [id number] Name: EILEEN TIERNEY Rep #: [id number] : 1935 82 From: Que Gonzales MD Attending Dr: Status: DEP ER Ordering Dr: Felice Aly DO Date: 06/30/18 Location: ED Sex: F C Admitted: Reason For Study: swelling RIGHT LEFT CFV is compressible, spontaneous, phasic, CFV, FV, POP V, T/P Trunk, PTV, Peroneal V, competent and demonstrates normal Gastroc V, Soleus V are dilated and augmentation. noncompressible with no flow. Procedure GSV is partially harvested. Remaining GSV is Exam performed portable in ED. compressible. The exam was diagnostic. A preliminary report was called and/or faxed to Dr. Aly. <> Interpretation Summary Acute deep venous thrombosis left common femoral, femroal, poplieal, tibioperoneal trunk, posterior tibial, peroneal, gastrocnemius and soleus veins. Partially remaining great saphenous vein is patent and compressible Normal flow patterns right common femoral vein Ordering Physician: Felice Aly Performed By: Rob Muhammad RVJayden 07/02/18 0602 Date Que Gonzales MD CC: Anya Steward DO; Felice Aly DO Date Dictated: 06/30/18 1341 Date Transcribed: 07/02/18 0602 Pension Administrator: Signed DISCHARGE INSTRUCTION Observed: 06/30/2018 Status: F Source: [place] 2:56 PM [facility] Medical Records Department [address] [place] [address] Discharge Instruction 06/30/18 1454 MR#: [id number] Acct: [id number] Name: EILEEN TIERNEY Kenn Rep #: [id number] : 1935 82 From: Felice Aly DO PCP: Anya Steward DO Status: REG ER ED Disposition - Plan for ED Patient: Chief Complaint: Edema Instructions: ED DVT Prescriptions: Apixaban [Eliquis] 5 mg PO BID #74 tab Referrals: Anya Steward DO [Primary Care Provider] - 3-5 Days What to do if you have Problems For any increased pain, shortness of breath, bleeding, nausea or vomiting, chest pain, or any unexpected problems, contact your Primary Care Provider. Call [facility] ([phone]) or report to the closest Emergency Room. Call 911 if necessary. 06/30/18 1456 <Electronically signed by Felice Aly DO> Date Felice Aly DO Cosigner Signature (If Indicated): Date CC: Anya Steward DO EMERGENCY DEPARTMENT Observed: 06/30/2018 Status: F Source: [place] SUMMARY 2:54 PM [facility] Medical Records Department [address] [place] [address] Emergency Department Summary 06/30/18 1448 MR#: [id number] Acct: [id number] Name: EILEEN TIERNEY Kenn Rep #: [id number] : 1935 82 From: Felice Aly DO PCP: Anya Steward DO Status: REG ER - ER Visit Summary Date of Service: 06/30/18 Chief Complaint: [Swelling left leg] History of Present Illness: The patient is a 82 F [presents to the emergency department with complaint of swelling to her left leg since yesterday. Patient denies any trauma. Patient denies any chest pain or shortness of breath. Patient does have [...] IV kidney disease but is not on dialysis.] Physical Examination: [HEENT-PERRLA, EOMI. Cranial nerves II through XII grossly intact. TMs clear. Mucous membranes moist. No adenopathy. Cardiovascular-regular rate and rhythm without murmur or ectopy Lungs-clear to auscultation, chest wall stable without crepitus or subcu emphysema Abdomen-normoactive bowel sounds, soft, nontender, no rebound or rigidity, no peritoneal signs. Extremities-intact 4, normal range of motion, normal pulses. Left leg-patient has diffuse edema from the thigh down to the foot. There is a slight bluish hue/discoloration to the left leg. Patient has normal popliteal, femoral, dorsal pedal, and posterior tibial pulses. Patient has normal cap refill. The leg is not painful. Patient has normal range of motion.] Test Results: [Venous duplex of the left lower extremity obtained showed a DVT extending from the femoral vein down to the foot.] Emergency Department Course and Treatment: [Patient case was discussed with Dr. rogel he was on-call for Dr. Malin. At this point decision was made to treat patient with Eliquis. Patient states that she normally ambulates without difficulty on her own. Patient is not a fall risk. She denies any blood in her stool or black tarry stools. Patient had blood work done on 829 of this year and showed a hemoglobin over 10. Patient does have a history of some chronic anemia.] Treatment Plan: [Patient will be treated with Eliquis and patient to be seen in primary care physician's office within next 3-5 days. Patient advised to return if worsening pain, swelling, weakness in the extremity, paresthesias, or condition should worsen anyway.] Disposition: [Discharged home in stable condition] Impression: [DVT left lower extremity] This note was generated with [employer] dictation software. It may contain incorrect words, [...] your Primary Care Provider. Call [facility] ([phone]) or report to the closest Emergency Room. Call 911 if necessary. 06/30/18 7836 <Electronically signed by Felice Aly DO> Date Felice Aly DO Cosigner Signature (If Indicated): Date CC: Anya Steward DO PROGRESS Observed: 05/11/2018 Status: COMPLETED Source: [place] 12:40 PM [facility] REPOSITORY HNO ID: [id number] Author: Jarrell Kate Service: (none) Author Type: Physician Type: Progress Notes Filed: 05/11/2018 12:42 PM Note Text: This patient really seems to be doing quite well. 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 She had an echocardiogram which shows this really not to have changed much in the recent times. She seems to be stable. There is no significant valvular disease associated with this. She is only complaining of some tiredness that occurs with activity. It sounds really more like a decrease in stamina. At this point in time I don't think this relates at all to her thoracic aortic dilation. In addition her myocardial function seems to be reasonably well preserved on the current study. At this point I tell her that I would like to get another CT scan for follow-up next year. I state that I would like to alternate getting CT scans and echocardiograms to assess both just the simple size as well as valvular function. At this point in time she really has no evidence of any other new problems and for that reason I would state that we can get a CT scan of her chest in 1 year with an office visit to follow. I review her current echocardiogram and find no evidence that there is any reason to change this course to recommend for more aggressive therapy at this time.I spent 15 minutes in the visit, with more than 50% of the total vsju-ty-nvjj time of the visit in counseling / coordination of care. YENNIFER Observed: 05/11/2018 Status: COMPLETED Source: [place] 12:15 PM [facility] Office Visit (AGMIL) EILEEN TIERNEY ([id number]) 1935 F TRN Date Time Provider Department 05/11/18 12:15 PM JARRELL KATE During your visit today, we recorded the following information about you: Pulse Respiration Blood pressure Weight 78/minute 18/minute 118/66 61.2 kg Height 1.626 m Jarrell Kate MD 05/11/2018 12:42 PM Signed This patient really seems to be doing quite well. 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 She had an echocardiogram which shows this really not to have changed much in the recent times. She seems to be stable. There is no significant valvular disease associated with this. She is only complaining of some tiredness that occurs with activity. It sounds really more like a decrease in stamina. At this point in time I don't think this relates at all to her thoracic aortic dilation. In addition her myocardial function seems to be reasonably well preserved on the current study. At this point I tell her that I would like to get another CT scan for follow-up next year. I state that I would like to alternate getting CT scans and echocardiograms to assess both just the simple size as well as valvular function. At this point in time she really has no evidence of any other new problems and for that reason I would state that we can get a CT scan of her chest in 1 year with an office visit to follow. I review her current echocardiogram and find no evidence that there is any reason to change this course to recommend for more aggressive therapy at this time.I spent 15 minutes in the visit, with more than 50% of the total bczu-hg-zvfj time of the visit in counseling / coordination of care. Referring Provider: ANYA STEWARD [[id number]] Allergies As of Date: 05/11/2018 Noted Allergy Reaction BEES 06/10/2011 10 - Anaphylaxis NIACIN 05/07/2002 9 - Itching Comments: skin rash and itching Date Reviewed: 05/11/2018 Reviewed by: Jarrell Kate - Fully Assessed Reason for Visit: Aneurysm [496] Cmt: Eileen is here for follow up TAA. 05/07/18 Echo done Primary Visit Diagnosis:Thoracic ascending aortic aneurysm (HCC) [I71.2] Prescriptions as of 05/11/2018 Sig: ASPIRIN 81 MG TABLET,DELAYED * Take 81 mg by mouth once sapna* CITALOPRAM 20 MG TABLET Take 20 mg by mouth once sapna* MAGNESIUM 250 MG TABLET Take 250 mg by mouth once cedric* CHOLECALCIFEROL (VITAMIN D3) * Take 1,000 Units by mouth onc* POTASSIUM CHLORIDE ER 20 MEQ * Take 1 tablet by mouth once d* ASCORBIC ACID (VITAMIN C) 1,0* Take 1,000 mg by mouth once d* CYANOCOBALAMIN (VIT B-12) 1,0* Take 1,000 mcg by mouth once * CENTRUM SILVER ORAL Take 1 tablet by mouth once d* * LEVOTHYROXINE 88 MCG TABLET Take 1 tablet by mouth once d* WARFARIN 5 MG TABLET POTASSIUM CHLORIDE ER 20 MEQ * WARFARIN 6 MG TABLET Take 6 mg by mouth daily as d* HYDROCODONE 5 MG-ACETAMINOPHE* Take 1 tablet by mouth every * Medication notes this encounter MAGNESIUM 250 MG TABLET >> Tasia Stone LPN 05/11/2018 12:25 PM >> TASIA STONE LPN MonMay 11, 2018 12:25 PM Problem List As Of Date 05/11/2018 Noted Resolved Lymphoma [C85.90] INVALID FOR* Abnormal mammogram, unspecified [R92.8] INVALID FOR* ESRD (end stage renal disease) [N18.6] INVALID FOR* Thoracic aneurysm without mention of rupture (H* Disposition: Return in about 1 year (around 05/11/2019) for Yearly check up with testing, TAA. Follow-up and Disposition History Recorded Letter Text Encounter Status:Closed by JARRELL KATE MD on 05/11/18 ECHO, COMPLETE W/ Observed: 05/07/2018 Status: F Source: [place] CONTRAST 4:26 PM [facility] Cardiovascular Services [address] [place] [address] Echo Complete W/ Contrast 05/07/18 1404 MR#: [id number] Acct: [id number] Name: EILEEN TIERNEY Rep #: [id number] : 1935 82 From: Fred Huerta MD Attending Dr: JARRELL KATE MD Status: REG CLI Ordering Dr: Jarrell Kate MD Date: 05/07/18 Location: [facility] Sex: F C Admitted: Reason For Study: THORACIC AORTA ANEURYSM Procedure This was a 2D Doppler, Color Flow transthoracic echocardiogram. Contrast injection was performed. Exam performed in department. Left Ventricle Normal LV size. Left ventricular systolic function is normal. The estimated ejection fraction is 55 %. Stage 1 diastolic dysfunction. No regional wall motion abnormalities noted. Right Ventricle Normal RV size. Normal systolic function. Atria Normal left atrium. Normal right atrium. Mitral Valve Normal mitral valve. Tricuspid Valve Normal tricuspid valve. Mild tricuspid valve insufficiency. Aortic Valve Trisinus/trileaflet aortic valve. Mild focal aortic valve calcification. Pulmonic Valve Normal pulmonic valve. Great Vessels Mildly dilated aortic root. The pulmonary artery is normal size. Normal inferior vena cava. Pericardium/Pleural No pericardial effusion. Medication Used port access for image enhancer. Diluted definity 4ml given slow IV push to enhance endocardial definition. MMode/2D Measurements AND Calculations LVIDd: 4.2 cm IVSd: 0.70 cm Ao root diam: 3.9 cm LVIDs: 3.3 cm LVPWd: 0.92 cm LA dimension: 3.6 cm RVDd: 3.5 cm FS: 21.5 % LAV(MOD-bp): 47.5 ml EDV(MOD-sp4): 85.2 ml EDV(MOD-sp2): 86.8 ml LAV(MOD-bp) Indexed: 28.7 ml/m2 ESV(MOD-sp4): 42.2 ml EF(MOD-sp2): 48.3 % LAV(MOD-sp2): 48.7 ml EF(MOD-sp4): 50.4 % LAV(MOD-sp4): 47.0 ml SV(MOD-sp4): 43.0 ml SV(MOD-sp2): 41.9 ml LA A4 area: 17.5 cm2 RA A4 area: 14.3 cm2 Time Measurements MV dec time: 0.39 sec Doppler Measurements AND Calculations MV E max taurus: 38.1 cm/sec Lat Peak E' Taurus: 8.6 cm/sec Med Peak E' Taurus: 4.7 cm/sec MV A max taurus: 75.0 cm/sec E/E' lat: 4.4 E/E' med: 8.1 MV E/A: 0.51 Ao V2 max: 123.6 cm/sec LV V1 max: 83.1 cm/sec PA V2 max: 71.5 cm/sec Ao max P.1 mmHg LV V1 max P.8 mmHg PI end-d taurus: 98.6 cm/sec TR max taurus: 211.6 cm/sec TR max P.9 mmHg Interpretation Summary Normal LV size. Left ventricular systolic function is normal. The estimated ejection fraction is 55 %. Stage 1 diastolic dysfunction. Mildly dilated aortic root. Compared to prior study, there is no significant change. Ordering Physician: JARRELL KATE Referring Physician: Anya Steward M.D. Performed By: Theresa Eid RDCS, RVT 05/07/18 1626 Date Fred Huerta MD CC: JARRELL KATE MD; Anya Steward DO Date Dictated: 05/07/18 1404 Date Transcribed: 05/07/181625 Pension Administrator: Signed SURGICAL PATHOLOGY Observed: 04/20/2018 Status: F Source: [place] 12:32 PM [facility] REPOSITORY Specimen originated from [facility] Specimen #: [id number] Submitting Physician: CHRISTINA BAEZA DO FINAL DIAGNOSIS Endometrial biopsy Sparse and superficially sampled fragments of inactive endometrium. - Benign cervical tissue with acute and chronic inflammation. AES/rw 04/23/2018 Ramila Silva M.D. (Electronic Signature) SPECIMEN SUBMITTED A: ENDOMETRIAL, BIOPSY CLINICAL DATA AUB GROSS DESCRIPTION A. Received in formalin are multiple garcia, soft feathery segments of tissue aggregating to 2.2 x 0.7 x 0.2 cm. Totally submitted in one cassette. Gross examination performed at [facility], [address] [place] [address] 04/20/2018 11:35:22 PM Date of Report: 04/23/2018 Date of Procedure: 04/20/2018 Date of Receipt: 04/20/2018 Submitted by: CHRISTINA BAEZA DO Location: [place] Diagnostic interpretation performed at [facility], [address] [place] [address]. PROGRESS Observed: 04/20/2018 Status: COMPLETED Source: [place] 11:06 AM [facility] REPOSITORY HNO ID: [id number] Author: Christina Baeza Service: (none) Author Type: Physician Type: Progress Notes Filed: 04/20/2018 12:32 PM Note Text: Eileen Tierney is a 82 year old female who presents today for an endometrial biopsy for brown vaginal discharge. test: n/a She states her vaginal discharge has improved. Urinary incontinence has improved as well. She is feeling well today and has no complaints. UNIVERSAL PROTOCOL / SAFETY CHECKLIST Procedure to be performed: EMB Sign in Communication: Completed Time Out: Team Confirms the Correct Patient, Correct Procedure, Correct Site and Site Marking, Correct Position (if applicable), Prep and Dry Time (if applicable). Affirmation of Time Out: N/A Sign Out Discussion: Completed Brii Mcdermott MA PROCEDURE: EXTERNAL GENITALIA: Atrophy noted but otherwise normal in appearance without lesions VAGINA: Normal in appearance without lesions. Significant atrophy noted. Scant bleeding from placing speculum BIOPSY: Speculum placed into the vagina with visualization of the cervix. The cervix was flush with the vagina given the atrophy so a tenaculum was not able to be placed. Cervix cleaned with betadine. Uterus sounded to 6 cm. Pipelle inserted into the uterus without difficulty and endometrial biopsy obtained. Scant tissue obtained. Specimen labeled and sent to pathology. Hemostasis achieved. Procedure Summary: Patient tolerated procedure well. ASSESSMENT: Brown vaginal discharge PLAN: Reviewed US results with the patient, and that the EMS was unable to be measured. Her vaginal discharge and incontinence have improved. Reviewed using Replens if the discharge returns, as it is likely secondary to atrophy but she has a hx of DVT/PE. EMB performed. Specimens labeled and sent to Pathology. Will notify patient of results in 1-2 weeks. Post-procedure instructions reviewed and written material given to the patient. Discussed that the specimen was scant and may not be diagnosed. Reviewed that this is often from atrophy, and that given her age and medical conditions I likely will not recommend surgery/DANDC. Christina Baeza DO CNOV Observed: 04/20/2018 Status: COMPLETED Source: [place] 11:00 AM [facility] REPOSITORY Office Visit (WOOB) EILEEN TIERNEY ([id number]) 1935 F TRN Date Time Provider Department 04/20/18 11:00 AM CHRISTINA BAEZA During your visit today, we recorded the following information about you: Blood pressure Weight 106/70 59.7 kg Christina Baeza MD 04/20/2018 12:32 PM Signed Eileen Hawk Niall is a 82 year old female who presents today for an endometrial biopsy for brown vaginal discharge. test: n/a She states her vaginal discharge has improved. Urinary incontinence has improved as well. She is feeling well today and has no complaints. UNIVERSAL PROTOCOL / SAFETY CHECKLIST Procedure to be performed: EMB Sign in Communication: Completed Time Out: Team Confirms the Correct Patient, Correct Procedure, Correct Site and Site Marking, Correct Position (if applicable), Prep and Dry Time (if applicable). Affirmation of Time Out: N/A Sign Out Discussion: Completed Brii Mcdermott MA PROCEDURE: EXTERNAL GENITALIA: Atrophy noted but otherwise normal in appearance without lesions VAGINA: Normal in appearance without lesions. Significant atrophy noted. Scant bleeding from placing speculum BIOPSY: Speculum placed into the vagina with visualization of the cervix. The cervix was flush with the vagina given the atrophy so a tenaculum was not able to be placed. Cervix cleaned with betadine. Uterus sounded to 6 cm. Pipelle inserted into the uterus without difficulty and endometrial biopsy obtained. Scant tissue obtained. Specimen labeled and sent to pathology. Hemostasis achieved. Procedure Summary: Patient tolerated procedure well. ASSESSMENT: Brown vaginal discharge PLAN: Reviewed US results with the patient, and that the EMS was unable to be measured. Her vaginal discharge and incontinence have improved. Reviewed using Replens if the discharge returns, as it is likely secondary to atrophy but she has a hx of DVT/PE. EMB performed. Specimens labeled and sent to Pathology. Will notify patient of results in 1-2 weeks. Post-procedure instructions reviewed and written material given to the patient. Discussed that the specimen was scant and may not be diagnosed. Reviewed that this is often from atrophy, and that given her age and medical conditions I likely will not recommend surgery/DANDC. Christina Baeza, DO Brii Mcdermott MA 04/20/2018 11:06 AM Addendum *Replens YOUR RECOVERY After your biopsy you may have: ? Vaginal bleeding (less than a normal menstrual period) ? Mild cramping Do NOT put anything in the vagina for 1 week after your endometrial biopsy. This includes: ? tampons ? douches ? and refraining from having sexual intercourse If you have any discomfort, you may take an over the counter pain medication (motrin, advil, ibuprofen, tylenol, etc). If this does not relieve your discomfort, contact the office. It is okay to wear a sanitary pad until the discharge and spotting stops. RISKS Although problems seldom occur with endometrial biopsies, there can be some complications. You may feel faint during and shortly after the procedure as well as have some bleeding after the procedure. There is also a risk of infection after the procedure. These complications are rare and can be easily treated. You should contact you doctor is you have any of the following: ? Heavy bleeding (more than your normal period) ? Bleeding with clots ? Severe abdominal pain ? Fever (more than 100.4F) ? Foul smelling vaginal discharge RESULTS We will have the results of your biopsy in 1-2 weeks. If you do not hear the results of your biopsy after 2 weeks, please contact the office for the results. If you have any additional questions or concerns please do not hesitate to contact the office. Referring Provider: SELF [[id number]] Allergies As of Date: 04/20/2018 Noted Allergy Reaction BEES 06/10/2011 10 - Anaphylaxis NIACIN 05/07/2002 9 - Itching Comments: skin rash and itching Date Reviewed: 04/20/2018 Reviewed by: Brii Mcdermott - Fully Assessed Reason for Visit: Endometrial Biopsy [7501] Primary Visit Diagnosis:Vaginal discharge, bloody [N89.8] Order(s):ENDOMETRIAL BIOPSY [[id number]] Order #: [id number] SURGICAL PATHOLOGY [[id number]] Order #: [id number] Prescriptions as of 04/20/2018 Sig: ASPIRIN 81 MG TABLET,DELAYED * Take 81 mg by mouth once sapna* CITALOPRAM 20 MG TABLET Take 20 mg by mouth once sapna* CHOLECALCIFEROL (VITAMIN D3) * Take 1,000 Units by mouth onc* POTASSIUM CHLORIDE ER 20 MEQ * Take 1 tablet by mouth once d* ASCORBIC ACID (VITAMIN C) 1,0* Take 1,000 mg by mouth once d* CYANOCOBALAMIN (VIT B-12) 1,0* Take 1,000 mcg by mouth once * CENTRUM SILVER ORAL Take 1 tablet by mouth once d* * LEVOTHYROXINE 88 MCG TABLET Take 1 tablet by mouth once d* WARFARIN 5 MG TABLET POTASSIUM CHLORIDE ER 20 MEQ * WARFARIN 6 MG TABLET Take 6 mg by mouth daily as d* MAGNESIUM 250 MG TABLET Take 250 mg by mouth once cedric* HYDROCODONE 5 MG-ACETAMINOPHE* Take 1 tablet by mouth every * Problem List As Of Date 04/20/2018 Noted Resolved Lymphoma [C85.90] INVALID FOR* Abnormal mammogram, unspecified [R92.8] INVALID FOR* ESRD (end stage renal disease) [N18.6] INVALID FOR* Thoracic aneurysm without mention of rupture (H* Other instructions from your clinician: *Replens YOUR RECOVERY After your biopsy you may have: ? Vaginal bleeding (less than a normal menstrual period) ? Mild cramping Do NOT put anything in the vagina for 1 week after your endometrial biopsy. This includes: ? tampons ? douches ? and refraining from having sexual intercourse If you have any discomfort, you may take an over the counter pain medication (motrin, advil, ibuprofen, tylenol, etc). If this does not relieve your discomfort, contact the office. It is okay to wear a sanitary pad until the discharge and spotting stops. RISKS Although problems seldom occur with endometrial biopsies, there can be some complications. You may feel faint during and shortly after the procedure as well as have some bleeding after the procedure. There is also a risk of infection after the procedure. These complications are rare and can be easily treated. You should contact you doctor is you have any of the following: ? Heavy bleeding (more than your normal period) ? Bleeding with clots ? Severe abdominal pain ? Fever (more than 100.4F) ? Foul smelling vaginal discharge RESULTS We will have the results of your biopsy in 1-2 weeks. If you do not hear the results of your biopsy after 2 weeks, please contact the office for the results. If you have any additional questions or concerns please do not hesitate to contact the office. Disposition: Return in about 1 year (around 04/20/2019) for annual exam. Follow-up and Disposition History Recorded Encounter Status:Closed by CHRISTINA BAEZA MD on 04/20/18 PROGRESS Observed: 04/17/2018 Status: COMPLETED Source: [place] 11:02 AM [facility] REPOSIT[facility] HNO ID: [id number] Author: Christina Baeza Service: (none) Author Type: Physician Type: Progress Notes Filed: 04/17/2018 11:02 AM Note Text: Can you please let the patient know that the thickness of her endometrium was unable to be measured on ultrasound, and I would like her to come in for a follow up appointment with me for en endometrial biopsy? Thank you! PROGRESS Observed: 04/13/2018 Status: COMPLETED Source: [place] 1:01 PM [facility] REPOSITORY HNO ID: [id number] Author: Christina Baeza Service: (none) Author Type: Physician Type: Progress Notes Filed: 04/13/2018 1:01 PM Note Text: Can you please let the patient know her vaginitis cx and urine cx were negative? Thanks! URINALYSIS WITH Collected: 04/10/2018 Status: F Source: [place] MICROSCOPIC 4:05 PM [facility] REPOSITORY TYPE CODE TESTS RESULT OUT OF RANGE REFERENCE UNITS LAB UCOL Yellow Color Yellow LAB [facility] Clear Clarity Abnormal Slightly Alert Cloudy LAB UGLUC Negative mg/dL Glucose, Urine Negative LAB UBIL Negative Bilirubin, Urine Negative LAB UKET Negative Ketones, Urine Negative LAB USPG 1.005-1.030 Specific [place], Ur 1.025 LAB UHGB Negative Abnormal Hemoglobin/Blood, 3+ Alert Ur LAB UPH 4.5-8.0 pH 6.0 LAB UPROT Negative mg/dL Protein, Abnormal Urine >=300 Alert LAB UUROB Normal Urobilinogen Normal LAB UNITR Negative Nitrites Negative LAB ULKEST Negative Leukest Abnormal 3+ Alert LAB UMCOM Urine Jerome Comment SEE COMMENT Result Comment: Less Than 2 CC Received Microscopic Performed on Unspun Specimen Result rechecked. Interpret results with caution. Urine preservative tube not filled to the required volume. The BD Vacutainer Urinalysis preservative Plus tube must be filled with at least 7 mL and not more than 9 mL of urine in order to maintain the proper additive to urine ratio. LAB UWBC 0-5 /HPF Abnormal Alert WBC >25 LAB URBC 0-3 /HPF RBC 0-3 LAB UCAST 0 /LPF Abnormal Alert Cast SEE COMMENT Result Comment: 1-3 Hyaline Performed By: #### UAWMIC #### [facility] [employer] [place] [address] Observed: 04/10/2018 Status: F Source: [place] URINE CULTURE 4:05 PM [facility] REPOSITORY Sp. Request/Comment: - Best Practice Alert: To ensure optimal transport conditions and accurate culture results transfer urine specimens to bustamante top C and S preservative tube. Culture Result - <10,000 CFU/ml Lactose positive gram negative bacilli --> ABNORMAL ALERT Insignificant colony count. No further workup. --> ABNORMAL ALERT Performed By: #### URCUL #### [facility] [address] [address] Observed: 04/10/2018 Status: F Source: [place] BACT/CAND VAG GRM ST 4:02 PM [facility] REPOSITORY Sp. Request/Comment: - Swab Smear Result - BACTERIAL VAGINOSIS RESULT: Stain results indicate mixed morphotypes consistent with transition from normal vaginal raegan. No Yeast observed Many Polymorphonuclear leukocytes Rare Epithelial cells Performed By: #### BVCNSM #### [facility] Stand [address] [place] [address] PROGRESS Observed: 04/10/2018 Status: COMPLETED Source: [place] 3:07 PM [facility] REPOSITORY HNO ID: [id number] Author: Christina Baeza Service: (none) Author Type: Physician Type: Progress Notes Filed: 04/10/2018 5:16 PM Note Text: Eileen Tierney is a 82 year old female who presents for vaginal discharge for 1 month(s). Vaginal discharge: white and brown. Every day. Has to wear pads continuously Itching: No Dyspareunia: N/A Fever/chills: No Abdominal pain: No. +Menstrual-like cramping for 2 days that is new Bladder: +new incontinence over last 1 moth as well, not associated with urge or increased intra-abd pressure Bowel: No blood in stool, pain with BM, tarry stool, persistent diarrhea or constipation Any new sexual partners or concern for STD exposure: No Do you use feminine sprays, douches or deodorants: Yes, douches Menstrual cycle: no menses - postmenopausal Contraception: none Past medical, surgical, social history, medications and allergies reviewed and updated. OBJECTIVE: BP 110/70 Wt 134 lb 3.2 oz (60.9kg) GENERAL: in no apparent distress ABDOMEN: soft, non-tender and no masses PELVIC: external genitalia normal, no vulvar lesions, no cervical lesions, good vaginal support, atrophic changes noted, vaginal mucosa very thin and friable with spots of blood from speculum placement, +copious amounts of yellow-garcia discharge present BIMANUAL: uterus normal size, shape and consistency, no adnexal masses and non-tender. ASSESSMENT/PLAN: Likely atrophic vaginitis Office Visit on 04/10/18 -URINALYSIS WITH MICROSCOPIC -BACT/EDY VAG GRAM STAIN -URINE CULTURE -aspirin, enteric coated (ASPIRIN, ENTERIC COATED) 81 mg EC tablet -PELVIC US WHI -PELVIC US WHI ? Discharge likely secondary to vulvovaginal atrophy. Vaginitis cx sent to rule out infection. Given that it is brown in color per the patient, ordered pelvic US to assess endometrial thickness. Will have patient return to discuss results of culture and US, and possibly start Replens. Discussed vaginal estrogen therapy with patient, and that it is unclear how much of the estrogen would get absorbed systemically. Reviewed possible increased risk of DVT, especially given her hx of DVT and PE. She is no longer taking Warfarin ? New urinary incontinence. UA, urine cx. Will have pt follow up next week to discuss results Christina Baeza DO CNOV Observed: 04/10/2018 Status: COMPLETED Source: [place] 3:00 PM [facility] REPOSITORY Office Visit (WOOB) EILEEN TIERNEY ([id number]) 1935 F TRN Date Time Provider Department 04/10/18 3:00 PM CHRISTINA BAEZA During your visit today, we recorded the following information about you: Blood pressure Weight 110/70 60.9 kg Christina Baeza MD 04/10/2018 5:16 PM Signed Eileen Hawk Niall is a 82 year old female who presents for vaginal discharge for 1 month(s). Vaginal discharge: white and brown. Every day. Has to wear pads continuously Itching: No Dyspareunia: N/A Fever/chills: No Abdominal pain: No. +Menstrual-like cramping for 2 days that is new Bladder: +new incontinence over last 1 moth as well, not associated with urge or increased intra-abd pressure Bowel: No blood in stool, pain with BM, tarry stool, persistent diarrhea or constipation Any new sexual partners or concern for STD exposure: No Do you use feminine sprays, douches or deodorants: Yes, douches Menstrual cycle: no menses - postmenopausal Contraception: none Past medical, surgical, social history, medications and allergies reviewed and updated. OBJECTIVE: BP 110/70 Wt 134 lb 3.2 oz (60.9kg) GENERAL: in no apparent distress ABDOMEN: soft, non-tender and no masses PELVIC: external genitalia normal, no vulvar lesions, no cervical lesions, good vaginal support, atrophic changes noted, vaginal mucosa very thin and friable with spots of blood from speculum placement, +copious amounts of yellow-garcia discharge present BIMANUAL: uterus normal size, shape and consistency, no adnexal masses and non-tender. ASSESSMENT/PLAN: Likely atrophic vaginitis Office Visit on 04/10/18 -URINALYSIS WITH MICROSCOPIC -BACT/EDY VAG GRAM STAIN -URINE CULTURE -aspirin, enteric coated (ASPIRIN, ENTERIC COATED) 81 mg EC tablet -PELVIC US WHI -PELVIC US WHI ? Discharge likely secondary to vulvovaginal atrophy. Vaginitis cx sent to rule out infection. Given that it is brown in color per the patient, ordered pelvic US to assess endometrial thickness. Will have patient return to discuss results of culture and US, and possibly start Replens. Discussed vaginal estrogen therapy with patient, and that it is unclear how much of the estrogen would get absorbed systemically. Reviewed possible increased risk of DVT, especially given her hx of DVT and PE. She is no longer taking Warfarin ? New urinary incontinence. UA, urine cx. Will have pt follow up next week to discuss results Christina Baeza DO Referring Provider: SELF [200] Allergies As of Date: 04/10/2018 Noted Allergy Reaction BEES 06/10/2011 10 - Anaphylaxis NIACIN 05/07/2002 9 - Itching Comments: skin rash and itching Date Reviewed: 04/10/2018 Reviewed by: Brii Mcdermott - Fully Assessed Reason for Visit: Vaginal Discharge [4161] Primary Visit Diagnosis:Vaginal discharge [N89.8] Other Visit Diagnosis:Urinary incontinence, unspecified type [R32] Order(s):BACT/EDY VAG GRAM STAIN [SQBVCNSM] Order #: [id number] URINE CULTURE [SQURCUL] Order #: [id number] URINALYSIS WITH MICROSCOPIC [SQUAWMIC] Order #: [id number] PELVIC US WHI [[id number]] Order #: [id number]: 1 FUTURE PELVIC US WHI [] Order #: [id number]: 1 Prescriptions as of 04/10/2018 Sig: ASPIRIN 81 MG TABLET,DELAYED * Take 81 mg by mouth once sapna* CITALOPRAM 20 MG TABLET Take 20 mg by mouth once sapna* CHOLECALCIFEROL (VITAMIN D3) * Take 1,000 Units by mouth onc* POTASSIUM CHLORIDE ER 20 MEQ * Take 1 tablet by mouth once d* ASCORBIC ACID (VITAMIN C) 1,0* Take 1,000 mg by mouth once d* CYANOCOBALAMIN (VIT B-12) 1,0* Take 1,000 mcg by mouth once * CENTRUM SILVER ORAL Take 1 tablet by mouth once d* * LEVOTHYROXINE 88 MCG TABLET Take 1 tablet by mouth once d* WARFARIN 5 MG TABLET POTASSIUM CHLORIDE ER 20 MEQ * WARFARIN 6 MG TABLET Take 6 mg by mouth daily as d* MAGNESIUM 250 MG TABLET Take 250 mg by mouth once cedric* HYDROCODONE 5 MG-ACETAMINOPHE* Take 1 tablet by mouth every * Problem List As Of Date 04/10/2018 Noted Resolved Lymphoma [C85.90] INVALID FOR* Abnormal mammogram, unspecified [R92.8] INVALID FOR* ESRD (end stage renal disease) [N18.6] INVALID FOR* Thoracic aneurysm without mention of rupture (H* Level of Service: NEW PATIENT VISIT LEVEL 3 [85658] Disposition: Return in about 1 week (around 04/17/2018). Follow-up and Disposition History Recorded Encounter Status:Closed by CHRISTINA BAEZA MD on 04/10/18 CBC W/DIFF, AUTOMATED Collected: 03/28/2018 Status: F Source: [place] 2:03 PM [facility] [place] TYPE CODE TESTS RESULT OUT OF RANGE REFERENCE UNITS LAB L100.1000 4.4-11.0 K/mm3 Normal WBC 7.4 LAB L100.1200 4.2-5.4 M/mm3 Low RBC 3.58 LAB L100.1300 12.0-15.0 g/dl Low HGB 10.2 LAB L100.1400 37-47 % Low HCT 31.6 LAB L100.1500 81-99 fL Normal MCV 88.3 LAB L100.1600 27.0-32.0 pg Normal MCH 28.5 LAB L100.1700 32-36 g/gl Normal MCHC 32.3 LAB L100.1810 11.6-14.6 % Normal RDW CV 14.0 LAB L100.1820 35.1-43.9 fl High RDW SD 45.7 LAB L100.1900 150-450 K/mm3 Normal PLT 224 LAB L100.2000 6.2-12.0 fl Normal MPV 9.3 LAB L100.2100 47-70 % High NEUT% 72.5 LAB L100.2200 19-41 % Low LY% 17.4 LAB L100.2300 0-10 % Normal MONO% 5.7 LAB L100.2400 0-5 % Normal EO% 3.7 LAB L100.2500 0-1 % Normal BASO% 0.4 LAB L100.2550 0.0-0.9 % Normal IM GRAN % 0.300 Result Comment: IG% - Immature Granulocytes (promyelocytes, myelocytes and metamyelocytes) > 1% indicates that a LEFT SHIFT is Present. LAB L100.2620 2.0-7.7 X10 3/uL Normal Absolute Neut 5.4 LAB L100.2720 0.83-4.51 X10 3/ul Normal Absolute Lymph 1.28 Performed By: #### L100.0100 #### [facility] [address] [place], [address] PROTEIN+CREATININE Collected: Status: F Source: [place] RATIO,URINE 03/28/2018 2:03 PM [facility] [place] TYPE CODE TESTS RESULT OUT OF RANGE REFERENCE UNITS LAB L501.1200 NO RANGE EST. mg/dL Normal UR CREAT 174.00 LAB L501.1930 <11.9 mg/dL High 84.9 PROTEIN,UR.R AN. LAB L501.1940 0-200 mg/g CRE High PROT:CRE 488 RATIO Performed By: #### L501.0900 #### [facility] [address] [facility] [place], [address] PTHIN Collected: 03/28/2018 Status: F Source: [place] 2:03 PM [facility] [place] TYPE CODE TESTS RESULT OUT OF RANGE REFERENCE UNITS LAB L509.1000 18.4-80.1 pg/mL Normal PTHIN 25.1 Performed By: #### L509.1000 #### [facility] [address] [facility] [address] [place], [address] VITAMIN B12 Collected: 03/28/2018 Status: F Source: [place] 2:03 PM [facility] [place] TYPE CODE TESTS RESULT OUT OF RANGE REFERENCE UNITS LAB L503.0105 211-911 pg/mL Normal Vitamin B12 673 Performed By: #### L503.0105, L506.1000 #### [facility] [address] [place], [address] VITAMIN D,25 HYDROXY Collected: 03/28/2018 Status: F Source: [place] 2:03 PM [facility] [place] TYPE CODE TESTS RESULT OUT OF RANGE REFERENCE UNITS LAB L506.1000 29.95-100.01 ng/mL Normal Vitamin D 30.2 25-OH Result Comment: Vitamin D 25(OH) Status Range Deficiency <20 ng/mL (50nmol/L) Insuffciency 20 - 30 ng/mL (50 - 75 nmol/L) Sufficiency 30 - 100 ng/mL (75 - 250 nmol/L) Toxicity >100 ng/mL (>250 nmol/L) Performed By: #### L503.0105, L506.1000 #### [facility] [address] [place], [address] RENAL PROFILE Collected: 03/28/2018 Status: F Source: [place] 2:03 PM [facility] Order Comment: Is Patient Taking Vitamins or Folic Acid Supplements? N TYPE CODE TESTS RESULT OUT OF RANGE REFERENCE UNITS LAB L501.0100 74-106 mg/dL Normal GLU 89 Result Comment: Please note revised GLUCOSE reference range effective 2017. LAB L501.1000 7-18 mg/dL High BUN 44 LAB L501.1100 0.55-1.02 mg/dL High CREAT,SERUM 3.39 Result Comment: The validity of the calculated GFR AND GFRAA in patients over 70 years has not been determined. Clinical correlation is essential. LAB L501.1110 >60 mL/min Low EST GFR 14 Result Comment: Non- GFR Calc LAB L501.1115 >60 mL/min Low EST GFR - AA 17 Result Comment: GFR Calc LAB L501.1300 10-20 RATIO Normal BUN/CRE 13.0 LAB L501.1800 3.2-5.0 g/dL Normal ALB 3.6 LAB L501.2200 8.5-10.1 mg/dL CA Normal 9.2 LAB L501.2300 2.5-4.9 mg/dL Normal PHOS 3.3 LAB L501.5300 136-145 mmol/L Low NA 135 LAB L501.5600 3.5-5.1 mmol/L K Normal 4.5 LAB L501.5900 98-107 mmol/L High CL 108 LAB L501.6100 21.0-32.0 mmol/L Low CO2 17.0 Performed By: #### L500.3600, L503.6030, L503.6550, L506.0250 #### [facility] [address] [facility] [place], [address] IRON+IRON BINDING Collected: 03/28/2018 Status: F Source: [place] 2:03 PM [facility] [place] Order Comment: Is Patient Taking Vitamins or Folic Acid Supplements? N TYPE CODE TESTS RESULT OUT OF RANGE REFERENCE UNITS LAB L503.6075 250-450 ug/dL TIBC Normal 268 LAB L503.6150 50-170 ug/dL IRON Normal 70 LAB L503.6250 15.0-55.0 % IRON Normal SATURATION 26.1 Performed By: #### L500.3600, L503.6030, L503.6550, L506.0250 #### [facility] [address] [place], [address] FERRITIN Collected: 03/28/2018 Status: F Source: [place] 2:03 PM [facility] [place] [place] Order Comment: Is Patient Taking Vitamins or Folic Acid Supplements? N TYPE CODE TESTS RESULT OUT OF RANGE REFERENCE UNITS LAB L503.6550 8-252 ng/mL Normal FERRITIN 119 Performed By: #### L500.3600, L503.6030, L503.6550, L506.0250 #### [facility] [address] [place], [address] FOLATES, (FOLIC ACID) Collected: 03/28/2018 Status: F Source: [place] 2:03 PM [facility] Order Comment: Is Patient Taking Vitamins or Folic Acid Supplements? N TYPE CODE TESTS RESULT OUT OF REFERENCE UNITS RANGE LAB L506.0250 3.1-55.4 ng/mL High FOLATES > 100.00 Performed By: #### L500.3600, L503.6030, L503.6550, L506.0250 #### [facility] [address] [place], [address] ONCOLOGY VISIT REPORT Observed: 02/28/2018 Status: F Source: [place] 3:15 PM [facility] [place] [facility] [address] [place] [address] OFFICE VISIT Date of Service: 02/28/18 1508 MR#: [id number] Acct: [id number] Name: EILEEN TIERNEY Rep #: [id number] : 1935 From: Keaton Young MD Age/Sex: 82/F Location: OMD Status: Signed Subjective - Date of Service Date of Service:: 02/28/18 - Chief Complaint F/u for NHL. - History of Present Illness 82y.o.woman with history of Diffuse large B-cell lymphoma, CD20 positive, stage II. Date of diagnosis: 05/24/2004. S/P R-CHOP therapy x6 cycles, completed September 2004, Recurrent B-cell lymphoma, follicular center cell, grade 3. S/P right inguinal node excision 06/13/2011. Clinical stage IIB. IPI score of 3. Largest mesenteric mass 8.6 x 4.4 cm in the lower mid-abdomen. S/P R-CEOP x6 cycles 06/20/2011 - 11/02/2011. S/P BR chemotherapy x3 cycles 12/29/2011 - 02/28/2012. Rituxan maintenance from 03/28/2012 - 03/06/2013. 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 She had Coumadin toxicity, GI obstruction with ?bleed in 05/2017. She was transferred to in [place], passed hard fecal material with resolution of abdominal pain and discharged. She is off Coumadin since then. Echocardiogram on 08/08/2017 showed EF 55%. She remains on observation, comes for follow up, denies cough/fever/night sweats or chest pain. - Past Medical/Social History Past Medical History Past Medical History: Anemia,Clotting disorder,Kidney disease, Pulmonary embolism Cancer: Lymphoma Past Surgical History Surgical: Hernia repair Other Surgical History: RUE [place] F[place] FOR ESRD BOWEL RESECTION WITH COLOSTOMY KYPHOPLASTY R INGUINAL BX RENAL BX R ARM FRACTURE REPAIR Family History Paternal Past Medical History: Unknown Paternal History of Cancer Colon cancer Maternal Past Medical History: Diabetes mellitus,Stroke Social History Smoking Status Never smoker Review of Systems Constitutional:: Denies: Fever, Sweats, Weight loss, Appetite change, Chills Cardiovascular:: Denies: Chest pain, Palpitations, Dyspnea on exertion, Orthopnea, PND, Shortness of breath Respiratory: Denies: Cough, Hemoptysis, Shortness of Breath, Wheezing Gastrointestinal:: Denies: Abdominal pain, Nausea, Vomiting, Diarrhea, Constipation, Hematochezia Genitourinary: Denies: Dysuria, Hematuria, 15, Flank pain Musculoskeletal:: Denies: Back pain, Myalgia, Arthralgia Skin: Denies: Rash, Skin Changes, Wounds Neurological:: Denies: Headache, Dizziness, Visual changes, Tinnitus, Hearing loss Psychiatric: Denies: Anxiety, Depression, Homicidal Ideations, Suicidal Ideations [...] Negative for: Cervical lymphadenopathy, Supraclavicular lymphadenopathy, Axillary lymphadenopathy Laboratory Data: Laboratory Tests WBC 6.8 (4.4-11.0) K/mm3 RBC 3.50 L (4.2-5.4) M/mm3 Hgb 10.0 L (12.0-15.0) g/dl Hct 31.4 L (37-47) % MCV 89.7 (81-99) fL Assessment and Plan NHL-No evidence of disease clinically. Heterozygous Prothrombin gene mutation and Factor V Leiden mutation with VTE 20yrs ago. S/P Coumadin toxicity, now off Coumadin. H/O chronic renal failure. Plan is to continue observation. She will follow up with Nephrology. RTC 6 months with CBC, CMP, LDH. Medications: Prescriptions This Visit Medication Instructions Recorded Ascorbic Acid [C-1000] 1,000 mg PO DAILY 10/26/16 Primary Care Provider: Anya Steward Referring Provider: - Problem List (1) History of pulmonary embolism Status: Chronic (2) Non-Hodgkin lymphoma Status: Chronic Code Visit Office Visits / Consults: 63522 OV L4 Est 02/28/18 8382 <Electronically signed by Keaton Young MD> Date Keaton Young MD Cosigner Signature: Date (if applicable) CC: CBC W/DIFF, AUTOMATED Collected: 02/28/2018 Status: F Source: [place] 2:06 PM [facility] Order Comment: Reason for Laboratory Test OV TYPE CODE TESTS RESULT OUT OF RANGE REFERENCE UNITS LAB L100.1000 4.4-11.0 K/mm3 Normal WBC 6.8 LAB L100.1200 4.2-5.4 M/mm3 Low RBC 3.50 LAB L100.1300 12.0-15.0 g/dl Low HGB 10.0 LAB L100.1400 37-47 % Low HCT 31.4 LAB L100.1500 81-99 fL Normal MCV 89.7 LAB L100.1600 27.0-32.0 pg Normal MCH 28.6 LAB L100.1700 32-36 g/gl Low MCHC 31.8 LAB L100.1810 11.6-14.6 % Normal RDW CV 13.9 LAB L100.1820 35.1-43.9 fl High RDW SD 45.5 LAB L100.1900 150-450 K/mm3 Normal PLT 214 LAB L100.2000 6.2-12.0 fl Normal MPV 9.5 LAB L100.2100 47-70 % Normal NEUT% 67.0 LAB L100.2200 19-41 % Normal LY% 21.2 LAB L100.2300 0-10 % Normal MONO% 7.2 LAB L100.2400 0-5 % Normal EO% 4.2 LAB L100.2500 0-1 % Normal BASO% 0.3 LAB L100.2550 0.0-0.9 % Normal IM GRAN % 0.100 Result Comment: IG% - Immature Granulocytes (promyelocytes, myelocytes and metamyelocytes) > 1% indicates that a LEFT SHIFT is Present. LAB L100.2620 2.0-7.7 X10 3/uL Normal Absolute Neut 4.6 LAB L100.2720 0.83-4.51 X10 3/ul Normal Absolute Lymph 1.45 Performed By: #### L100.0100 #### [facility] [address] [place], [address] COMPREHENSIVE METABOLIC Collected: 02/28/2018 Status: F Source: [place] [facility] 2:06 PM [facility] Order Comment: Reason for Laboratory Test OV Serial Specimen #1, #2 or #3? 1 TYPE CODE TESTS RESULT OUT OF RANGE REFERENCE UNITS LAB L501.0100 74-106 mg/dL Normal GLU 79 Result Comment: Please note revised GLUCOSE reference range effective 2017. LAB L501.1000 7-18 mg/dL High BUN 45 LAB L501.1100 0.55-1.02 mg/dL High CREAT,SERUM 3.33 Result Comment: The validity of the calculated GFR AND GFRAA in patients over 70 years has not been determined. Clinical correlation is essential. LAB L501.1110 >60 mL/min Low EST GFR 14 Result Comment: Non- GFR Calc LAB L501.1115 >60 mL/min Low EST GFR - AA 17 Result Comment: GFR Calc LAB L501.1255 ml/min Normal Estimated CRCL 11.44 LAB L501.1300 10-20 RATIO Normal BUN/CRE 13.5 LAB L501.1500 6.4-8. g/dL Normal 2 T PROT 7.5 LAB L501.1800 3.2-5. g/dL Normal 0 ALB 3.3 LAB L501.1950 2.2-4. g/dL Normal 2 GLOB 4.2 LAB L501.2000 0.9-2. RATIO Low 4 A/G 0.8 LAB L501.2200 8.5-10 mg/dL Normal .1 CA 8.9 LAB L501.4100 15-37 U/L Normal AST 16 LAB L501.4305 45-117 U/L Normal ALK P 57 LAB L501.4405 13-56 U/L Normal ALT 15 LAB L501.4600 0.20-1 mg/dL Normal .00 T BILI 0.30 LAB L501.5300 136-14 mmol/L Normal 5 NA 139 LAB L501.5600 3.5-5. mmol/L Normal 1 K 3.9 LAB L501.5900 98-107 mmol/L High CL 109 LAB L501.6100 21.0-3 mmol/L Normal 2.0 CO2 22.0 LAB L501.6200 5-15 Normal GAP 8 Performed By: #### L500.4050, L504.2610 #### [facility] [address] [place], [address] LDH Collected: 02/28/2018 Status: F Source: [place] 2:06 PM [facility] Order Comment: Reason for Laboratory Test OV Serial Specimen #1, #2 or #3? 1 TYPE CODE TESTS RESULT OUT OF RANGE REFERENCE UNITS LAB L504.2610 84-246 U/L Normal LDH 141 Performed By: #### L500.4050, L504.2610 #### [facility] [address] [place], [address] DOWNTIME REPORT Observed: 01/18/2018 Status: F Source: [place] 12:24 PM [facility] Medical Records Department [address] [place] [address] Downtime Report MR#: [id number] Acct: [id number] Name: EILEEN TIERNEY Rep #: [id number] : 1935 82 From: Erasto Cutler PCP: Anya Steward DO Status: REG CLI This patient was seen during an EMR downtime January 01, 2018 - January 08, 2018. This patient may have a combination of paper and electronic documentation or all paper documentation. All documentation is viewable within the e-chart portion of [employer] for each patient visit. ABDOMEN WITHOUT IV Observed: 01/04/2018 Status: F Source: [place] CONTRAST 1:46 PM [facility] Imaging Services [address] [place] [address] Abdomen without IV Contrast MR#: [id number] Acct: [id number] Name: EILEEN TIERNEY Rep #: [id number] : 1935 F 82 From: Nereida Gary MD PCP: Anya Steward DO Status: REG CLI Study: Abdomen without IV Contrast Date of Exam: 01/04/18 Exam# [id number] Ordering Dr: Anya Steward DO STUDY: CT ABDOMEN WITHOUT CONTRAST REASON FOR EXAM: Female, 82 years old. Abdominal pain left lower quadrant colostomy RADIATION DOSAGE (If Supplied By Facility): CTDIvol = ( 9.26 ) mGy, DLP = ( 315.36 ) mGycm TECHNIQUE: Transaxial images were obtained without intravenous contrast, and with oral contrast. Sagittal and coronal images were reconstructed. This is a study from the base of the lungs to the acetabulum. This is a CT scan of the abdomen only. The pelvis was not completely included in this study. This is incomplete for evaluation of the bowel. Individualized dose optimization techniques were used for this CT. COMPARISON: August 02, 2017 ct abdomen and pelvis FINDINGS: There is minimal pelviectasis and fibrotic changes within the lung bases similar to prior study. The visualized portions of the heart are within normal limits. Normal liver. Normal gallbladder and extrahepatic biliary system. Normal spleen. Normal pancreas. Normal bilateral adrenal glands. There is mild right renal atrophy. [...] left lower quadrant colostomy. There is an air-fluid level in the distal stomach before it enters back into the abdomen towards the duodenum. On today's study the stomach measures 10.5 x 4.5 cm within the hernia. On prior study it measured 7.7 x 5.5 cm. There is mild distention of the duodenum. There is a partially contrasted minimally thick-walled appearance of the associated small bowel. There is diverticulosis without visualized diverticulitis. The appendix is visualized and appears normal. Is [...] fat and stomach out of the colostomy site.. There is an air-fluid level in the distal stomach. Left lower quadrant colostomy containing contrast. Mild aneurysmal dilatation of the descending thoracic aorta. Mild bilateral renal atrophy Stable left renal cyst.. Left renal stone no evidence of hydronephrosis. Electronically Signed: Nereida Gary MD at 10:55 EDT Tel , Service support , CC: Anya Steward DO Pension Administrator: Signed CBC-COMPLETE BLOOD CNT Collected: 12/21/2017 Status: F Source: [place] NO DIFF 11:59 AM [facility] TYPE CODE TESTS RESULT OUT OF RANGE REFERENCE UNITS LAB L100.1000 4.4-11.0 K/mm3 Normal WBC 6.2 LAB L100.1200 4.2-5.4 M/mm3 Low RBC 3.41 LAB L100.1300 12.0-15.0 g/dl Low HGB 9.7 LAB L100.1400 37-47 % Low HCT 30.6 LAB L100.1500 81-99 fL Normal MCV 89.7 LAB L100.1600 27.0-32.0 pg Normal MCH 28.4 LAB L100.1700 32-36 g/gl Low MCHC 31.7 LAB L100.1810 11.6-14.6 % Normal RDW CV 13.8 LAB L100.1820 35.1-43.9 fl High RDW SD 44.0 LAB L100.1900 150-450 K/mm3 Normal PLT 209 LAB L100.2000 6.2-12.0 fl Normal MPV 10.2 Performed By: #### L100.0500 #### [facility] [address] [place], [place], [address] RENAL PROFILE Collected: 12/21/2017 Status: F Source: [place] 11:59 AM [facility] TYPE CODE TESTS RESULT OUT OF RANGE REFERENCE UNITS LAB L501.0100 74-106 mg/dL Normal GLU 79 Result Comment: Please note revised GLUCOSE reference range effective 2017. LAB L501.1000 7-18 mg/dL High BUN 45 LAB L501.1100 0.55-1.02 mg/dL High CREAT,SERUM 2.87 Result Comment: The validity of the calculated GFR AND GFRAA in patients over 70 years has not been determined. Clinical correlation is essential. LAB L501.1110 >60 mL/min Low EST GFR 17 Result Comment: Non- GFR Calc LAB L501.1115 >60 mL/min Low EST GFR - AA 20 Result Comment: GFR Calc LAB L501.1255 ml/min Normal Estimated CRCL 13.28 LAB L501.1300 10-20 RATIO Normal BUN/CRE 15.7 LAB L501.1800 3.2-5. g/dL Normal 0 ALB 3.5 LAB L501.2200 8.5-10 mg/dL Normal .1 CA 8.8 LAB L501.2300 2.5-4. mg/dL Normal 9 PHOS 4.0 LAB L501.5300 136-14 mmol/L Normal 5 NA 139 LAB L501.5600 3.5-5. mmol/L Normal 1 K 4.2 LAB L501.5900 98-107 mmol/L High CL 109 LAB L501.6100 21.0-3 mmol/L Normal 2.0 CO2 21.0 Performed By: #### L500.3600, L501.5200 #### [facility] [address] [place], [address] MAGNESIUM Collected: 12/21/2017 Status: F Source: [place] 11:59 AM [facility] TYPE CODE TESTS RESULT OUT OF RANGE REFERENCE UNITS LAB L501.5200 1.6-2.6 mg/dL Normal MG 2.1 Performed By: #### L500.3600, L501.5200 #### [facility] [address] [place], [address] MICROALB:CREAT Collected: 12/21/2017 Status: F Source: [place] RATIO,RANDOM UR 11:59 AM [facility] TYPE CODE TESTS RESULT OUT OF RANGE REFERENCE UNITS LAB L501.1200 NO RANGE EST. mg/dL Normal UR CREAT 165.00 LAB L502.0500 NO RANGE EST. mg/L Normal 44.5 MICROALBUMIN ,UR LAB L502.0600 <30 mg/g CRE mg/g CRE Normal 27.0 MALB:CREAT Performed By: #### L502.0250 #### [facility] [address] [place], [address] VITAMIN D,25 HYDROXY Collected: 12/21/2017 Status: F Source: [place] 11:59 AM [facility] TYPE CODE TESTS RESULT OUT OF RANGE REFERENCE UNITS LAB L506.1000 29.95-100.01 ng/mL Normal Vitamin D 35.5 25-OH Result Comment: Vitamin D 25(OH) Status Range Deficiency <20 ng/mL (50nmol/L) Insuffciency 20 - 30 ng/mL (50 - 75 nmol/L) Sufficiency 30 - 100 ng/mL (75 - 250 nmol/L) Toxicity >100 ng/mL (>250 nmol/L) Performed By: #### L506.1000 #### [facility] [address] [place], [address] PTHIN Collected: 12/21/2017 Status: F Source: [place] 11:59 AM [facility] TYPE CODE TESTS RESULT OUT OF RANGE REFERENCE UNITS LAB L509.1000 18.4-80.1 pg/mL Normal PTHIN 32.8 Performed By: #### L509.1000 #### [facility] [address] [place], [address] ECHOCARDIOGRAM COMPLETE Observed: 08/08/2017 Status: F Source: [place] 5:26 PM [facility] Cardiovascular Services [address] [place] [address] Echo Complete 08/08/17 1308 MR#: [id number] Acct: [id number] Name: EILEEN TIERNEY Rep #: [id number] : 1935 81 From: Sergio Rivero MD Attending Dr: Keaton Young MD Status: REG CLI Ordering Dr: Keaton Young MD Date: 08/08/17 Location: [facility] Sex: F C Admitted: Reason For Study: SOB Procedure This was a 2D Doppler, Color Flow transthoracic echocardiogram. The exam was of poor technical quality due to diminished acoustic windows. The study was technically difficult. Exam performed in department. Left Ventricle Based upon the 2D echocardiographic images obtained there appears to be grossly normal left ventricular size, wall motion, and systolic function. The estimated ejection fraction is 55 %. Right Ventricle Normal RV size. Normal systolic function. Atria The left atrium is mildly enlarged. Normal right atrium. No doppler evidence for ASD. Mitral Valve There is mild mitral annular calcification. Extension of the mitral annular calcification onto the posterior mitral valvel leaflet. Mild (1+) mitral valve insufficiency. Tricuspid Valve Normal tricuspid valve. Trivial tricuspid valve insufficiency. Right ventricular systolic pressure estimated to be 25 mmHg. Aortic Valve Trisinus/trileaflet aortic valve. Mild focal aortic valve calcification. Pulmonic Valve The pulmonic valve is not well visualized. Mild (1+) pulmonic valve insufficiency. Great Vessels Normal sized aortic root. Pericardium/Pleural No pericardial effusion. MMode/2D Measurements AND Calculations LVIDd: 4.7 cm IVSd: 1.0 cm Ao root diam: 3.5 cm LVIDs: 3.6 cm LVPWd: 1.0 cm LA dimension: 3.9 cm RVDd: 3.5 cm FS: 22.8 % LAV(MOD-bp): 51.4 ml LA A4 area: 18.5 cm2 RA A4 area: 15.6 cm2 LAV(MOD-bp) Indexed: 31.0 ml/m2 LAV(MOD-sp2): 52.3 ml LAV(MOD-sp4): 49.5 ml Doppler Measurements AND Calculations MV E max taurus: 47.7 cm/sec Lat Peak E' Taurus: 8.6 cm/sec Med Peak E' Taurus: 4.5 cm/sec MV A max taurus: 94.6 cm/sec E/E' lat: 5.5 E/E' med: 10.7 MV E/A: 0.50 Ao V2 max: 121.0 cm/sec LV V1 max: 73.6 cm/sec PA V2 max: 81.2 cm/sec Ao max P.9 mmHg LV V1 max P.2 mmHg TR max taurus: 235.8 cm/sec TR max P.3 mmHg Interpretation [...] focal aortic valve calcification. Mild (1+) pulmonic valve insufficiency. Right ventricular systolic pressure estimated to be 25 mmHg. Ordering Physician: Keaton Young Referring Physician: Anya Steward Performed By: Nicole Shepherd, JOLLYCS, RVT 08/08/171724 Date Sergio Rivero MD CC: Keaton Young MD; Anya Steward DO Date Dictated: 08/08/17 1308 Date Transcribed: 08/08/171724 Pension Administrator: Signed CBC-COMPLETE BLOOD CNT Collected: 08/08/2017 Status: F Source: [place] NO DIFF 2:33 PM [facility] TYPE CODE TESTS RESULT OUT OF RANGE REFERENCE UNITS LAB L100.1000 4.4-11.0 K/mm3 Normal WBC 6.4 LAB L100.1200 4.2-5.4 M/mm3 Low RBC 3.11 LAB L100.1300 12.0-15.0 g/dl Low HGB 8.8 LAB L100.1400 37-47 % Low HCT 28.5 LAB L100.1500 81-99 fL Normal MCV 91.6 LAB L100.1600 27.0-32.0 pg Normal MCH 28.3 LAB L100.1700 32-36 g/gl Low MCHC 30.9 LAB L100.1810 11.6-14.6 % High RDW CV 17.1 LAB L100.1820 35.1-43.9 fl High RDW SD 57.0 LAB L100.1900 150-450 K/mm3 Normal PLT 156 LAB L100.2000 6.2-12.0 fl Normal MPV 10.1 Performed By: #### L100.0500 #### [facility] [address] [place], [address] RENAL PROFILE Collected: 08/08/2017 Status: F Source: [place] 2:33 PM [facility] TYPE CODE TESTS RESULT OUT OF RANGE REFERENCE UNITS LAB L501.0100 70-110 mg/dL Normal GLU 89 LAB L501.1000 7-18 mg/dL High BUN 30 LAB L501.1100 0.55-1.02 mg/dL High 2.22 CREAT,SERUM Result Comment: The validity of the calculated GFR AND GFRAA in patients over 70 years has not been determined. Clinical correlation is essential. LAB L501.1110 >60 mL/min Low EST GFR 23 Result Comment: Non- GFR Calc LAB L501.1115 >60 mL/min Low EST GFR - AA 27 Result Comment: GFR Calc LAB L501.1300 10-20 RATIO Normal BUN/CRE 13.5 LAB L501.1800 3.4-5.0 g/dL Normal ALB 3.6 Result Comment: Please note revised Albumin AND Globulin reference range effective 2017. LAB L501.2200 8.5-10.1 mg/dL Normal CA 10.0 LAB L501.2300 2.5-4.9 mg/dL Low PHOS 2.3 LAB L501.5300 136-145 mmol/L Normal NA 139 LAB L501.5600 3.5-5.1 mmol/L Normal K 5.1 LAB L501.5900 98-107 mmol/L Normal CL 107 LAB L501.6100 21.0-32.0 mmol/L Normal CO2 25.0 Performed By: #### L500.3600, L501.5200 #### [facility] [address] [place], [place], [id number] MAGNESIUM Collected: 08/08/2017 Status: F Source: [place] 2:33 PM [facility] TYPE CODE TESTS RESULT OUT OF RANGE REFERENCE UNITS LAB L501.5200 1.8-2.4 mg/dL Normal MG 1.8 Performed By: #### L500.3600, L501.5200 #### [facility] [address] [place], [address] MICROALB:CREAT Collected: 08/08/2017 Status: F Source: [place] RATIO,RANDOM UR 2:33 PM [facility] TYPE CODE TESTS RESULT OUT OF RANGE REFERENCE UNITS LAB L501.1200 NO RANGE EST. mg/dL Normal UR CREAT 167.00 LAB L502.0500 NO RANGE EST. mg/L Normal 41.4 MICROALBUMIN ,UR LAB L502.0600 <30 mg/g CRE mg/g CRE Normal 24.8 MALB:CREAT Performed By: #### L502.0250 #### [facility] [address] [place], [address] PTHIN Collected: 08/08/2017 Status: F Source: [place] 2:33 PM [facility] TYPE CODE TESTS RESULT OUT OF RANGE REFERENCE UNITS LAB L509.1000 18.4-80.1 pg/mL Low PTHIN 8.3 Result Comment: Please Note: PTH INTACT METHOD AND REFERENCE RANGE CHANGE Effective 07/19/2017. Performed By: #### L509.1000 #### [facility] [address] [place], [address] VITAMIN D,25 HYDROXY Collected: 08/08/2017 Status: F Source: [place] 2:33 PM [facility] TYPE CODE TESTS RESULT OUT OF RANGE REFERENCE UNITS LAB L506.1000 ng/mL Normal Vitamin D 50.6 25-OH Result Comment: Vitamin D 25(OH) Status Range Deficiency <20 ng/mL (50nmol/L) Insuffciency 20 - 30 ng/mL (50 - 75 nmol/L) Sufficiency 30 - 100 ng/mL (75 - 250 nmol/L) Toxicity >100 ng/mL (>250 nmol/L) Performed By: #### L506.1000 #### [facility] [address] [place], [place], [address] VENOUS DUPLEX LOWER Observed: 08/07/2017 Status: F Source: [place] EXTREMITY 5:36 PM [facility] Cardiovascular Services [address] [place] [address] Venous Duplex - Jeff Extrem 08/07/17 1230 MR#: [id number] Acct: [id number] Name: EILEEN TIERNEY Kenn Rep #: [id number] : 1935 81 From: Jose E Armstrong MD Attending Dr: Status: DEP ER Ordering Dr: Felice Aly DO Date: 08/07/17 Location: ED Sex: F C Admitted: Reason For Study: LEG SWELLING RIGHT LEFT CFV is compressible, spontaneous, phasic, CFV is compressible, spontaneous, phasic, competent and demonstrates normal competent, and demonstrates normal augmentation. augmentation. FV is compressible, spontaneous, phasic, FV is compressible, spontaneous, phasic, competent and demonstrates normal competent and demonstrates normal augmentation. augmentation. POP V is compressible, spontaneous, phasic, POP V is compressible, spontaneous, phasic, competent and demonstrates normal competent and demonstrates normal augmentation. augmentation. T/P Trunk is compressible. T/P Trunk is compressible. PTV is compressible. PTV is compressible. RT PerV is compressible. LT PerV is compressible. Thrombus filled varicosities noted medial GSV absent thigh/calf. Thrombus filled varicosities noted medial GSV partially compressible from prox thigh thigh. to ankle. Procedure Exam performed portable in ED. A preliminary report was called and/or faxed to Dr. Aly. Interpretation Summary Deep veins of the lower extremities are bilaterally patent and compressible segmentally. There is no evidence of deep vein thrombosis on either side. Valvular competence appears intact within the proximal deep venous systems bilaterally. Acute superficial thrombophlebitis is noted in the right great saphenous vein from the proximal thigh to the ankle, as well as involving superficial varicosities in the right medial thigh and calf. The left great saphenous vein is absent. Acute superficial thrombophlebitis is noted involving superficial varicosities in the left medial thigh. Ordering Physician: Felice Aly Referring Physician: Anya Steward M.D. Performed By: Jovana Miller RVT 08/07/17 1736 Date Jose E Armstrong MD CC: Anya Steward DO; Felice Aly DO Date Dictated: 08/07/17 1230 Date Transcribed: 08/07/17 173 Pension Administrator: Signed DISCHARGE INSTRUCTION Observed: 08/07/2017 Status: F Source: [place] 2:54 PM REPLACED BY [facility] REPOSITORY [facility] Medical Records Department [address] [place] [address] Discharge Instruction 08/07/17 1454 MR#: [id number] Acct: [id number] Name: EILEEN TIERNEY Rep #: [id number] : 1935 81 From: Felice Aly DO PCP: Anya Steward DO Status: PRE ER ED Disposition - Plan for ED Patient: Chief Complaint: Edema Instructions: ED Phlebitis Superficial Referrals: Anya Steward DO [Primary Care Provider] - Keaton Young MD [NON-STAFF] - 5-7 Days What to do if you have Problems For any increased pain, shortness of breath, bleeding, nausea or vomiting, chest pain, or any unexpected problems, contact your Primary Care Provider. Call [facility] ([phone]) or report to the closest Emergency Room. Call 911 if necessary. 08/07/17 1454 <Electronically signed by Felice Aly DO> Date Felice Aly DO Cosigner Signature (If Indicated): Date CC: Anya Steward DO EMERGENCY DEPARTMENT Observed: 08/07/2017 Status: F Source: [place] SUMMARY 2:53 PM REPLACED BY [facility] REPOSITORY [facility] Medical Records Department [address] [place] [address] Emergency Department Summary 08/07/17 1450 MR#: [id number] Acct: [id number] Name: EILEEN TIERNEY Rep #: [id number] : 1935 81 From: Felice Aly DO PCP: Anya Steward DO Status: PRE ER - ER Visit Summary Date of Service: 08/07/17 Chief Complaint: [[place] to both legs and concern for DVT.] [...] shortness of breath.] Patient denies any recent travel or surgery. Patient does have a history [...] thighs does reveal several varicosities that are tender to palpation and indurated. No cellulitis noted. Test Results: [CBC with differential obtained showed a white blood cell count of 5.6, hemoglobin 8.0, hematocrit 26, platelets 133. Patient's INR was 1.3. He has Dopplers of both lower extremities obtained showed superficial thrombophlebitis but no evidence of DVT.] Emergency Department Course and Treatment: [I discussed case with who asked that patient discontinue her Coumadin and use aspirin and warm compresses to the area. Patient to follow-up with his office for close follow-up.] Treatment Plan: [Patient advised to use warm compresses and daily aspirin.] Disposition: [Discharge to home in stable condition. Patient advised to return if increasing pain, swelling, redness, chest pain, shortness of breath, or condition should worsen anyway] Impression: [Superficial thrombophlebitis bilateral lower extremities] This note was generated with [employer] dictation software. It may contain incorrect words, [...] your Primary Care Provider. Call [facility] ([phone]) or report to the closest Emergency Room. Call 911 if necessary. 08/07/17 1453 <Electronically signed by Felice Aly DO> Date Felice Aly DO Cosigner Signature (If Indicated): Date CC: Anya Steward DO CBC W/DIFF, AUTOMATED Collected: 08/07/2017 Status: F Source: [place] 1:30 PM [facility] TYPE CODE TESTS RESULT OUT OF RANGE REFERENCE UNITS LAB L100.1000 4.4-11.0 K/mm3 Normal WBC 5.6 LAB L100.1200 4.2-5.4 M/mm3 Low RBC 2.81 LAB L100.1300 12.0-15.0 g/dl Low HGB 8.0 LAB L100.1400 37-47 % Low HCT 25.6 LAB L100.1500 81-99 fL Normal MCV 91.1 LAB L100.1600 27.0-32.0 pg Normal MCH 28.5 LAB L100.1700 32-36 g/gl Low MCHC 31.3 LAB L100.1810 11.6-14.6 % High RDW CV 16.9 LAB L100.1820 35.1-43.9 fl High RDW SD 56.5 LAB L100.1900 150-450 K/mm3 Low PLT 133 LAB L100.2000 6.2-12.0 fl Normal MPV 9.9 LAB L100.2100 47-70 % Normal NEUT% 57.3 LAB L100.2200 19-41 % Normal LY% 31.5 LAB L100.2300 0-10 % Normal MONO% 8.5 LAB L100.2400 0-5 % Normal EO% 2.3 LAB L100.2500 0-1 % Normal BASO% 0.2 LAB L100.2550 0.0-0.9 % Normal IM GRAN % 0.200 Result Comment: IG% - Immature Granulocytes (promyelocytes, myelocytes and metamyelocytes) > 1% indicates that a LEFT SHIFT is Present. LAB L100.2620 2.0-7.7 X10 3/uL Normal Absolute Neut 3.2 LAB L100.2720 0.83-4.51 X10 3/ul Normal Absolute Lymph 1.75 Performed By: #### L100.0100 #### [facility] [address] [place], [address] PROTHROMBIN TIME W/INR Collected: 08/07/2017 Status: F Source: [place] 1:30 PM [facility] TYPE CODE TESTS RESULT OUT OF RANGE REFERENCE UNITS LAB L300.4150 11.7-14.9 SECONDS High PROTIME 15.2 LAB L300.4200 Normal INR 1.3 Performed By: #### L300.3900 #### [facility] [facility] [address] [place], [address] ABDOMEN/PELVIS WITHOUT Observed: 08/02/2017 Status: F Source: PEACHAM CONT 3:08 PM [facility] Imaging Services [address] [place] [address] Abdomen/Pelvis without Cont MR#: [id number] Acct: [id number] Name: EILEEN TIERNEY Kenn Rep #: [id number] : 1935 F 81 From: David Wolfe MD PCP: Anya Steward DO Status: REG CLI Study: Abdomen/Pelvis without Cont Date of Exam: 08/02/17 Exam# [id number] Ordering Dr: Radha Bennett SHIPPING WEIGHER-Vipul STUDY: CT ABDOMEN AND PELVIS WITHOUT CONTRAST REASON FOR EXAM: Female, 81 years old. Follow-up ABD PAIN/NONHODGKINS LYMPHOMA. Pt had procedure 06/2017 to release fecal impaction- non surgical. RADIATION DOSAGE (If Supplied By Facility): CTDIvol = ( 9.12 ) mGy, DLP = ( 371.97 ) mGycm TECHNIQUE: Transaxial images were obtained from the dome of the diaphragm to the symphysis pubis without oral contrast, and without intravenous contrast. Sagittal and coronal images were reconstructed. COMPARISON: 17 FINDINGS: Lower lobe pulmonary fibrosis. The heart is enlarged. Normal liver. Normal gallbladder and extrahepatic biliary system. Normal spleen. Normal pancreas. Normal bilateral adrenal glands. Normal right kidney. Stable hypodensity in the superior left kidney. Left renal artery calcifications. Normal visualized [...] in the thoracic spine. CT/Abdomen/Pelvis without Cont IMPRESSION: Wall thickening of the rectum. This may suggest chronic diverticular change but mild diverticulitis is not excluded. There is a left parastomal hernia containing a portion of the stomach. There is no outlet obstruction. Other findings as above. Electronically Signed: David Wolfe MD at 18:32 EST , Service support , CC: Anya Bennett NP Pension Administrator: Signed CBC W/DIFF, AUTOMATED Collected: 07/25/2017 Status: F Source: ARIELA 11:49 AM [facility] TYPE CODE TESTS RESULT OUT OF RANGE REFERENCE UNITS LAB L100.1000 4.4-11.0 K/mm3 Normal WBC 4.9 LAB L100.1200 4.2-5.4 M/mm3 Low RBC 3.20 LAB L100.1300 12.0-15.0 g/dl Low HGB 8.9 LAB L100.1400 37-47 % Low HCT 29.2 LAB L100.1500 81-99 fL Normal MCV 91.3 LAB L100.1600 27.0-32.0 pg Normal MCH 27.8 LAB L100.1700 32-36 g/gl Low MCHC 30.5 LAB L100.1810 11.6-14.6 % High RDW CV 16.6 LAB L100.1820 35.1-43.9 fl High RDW SD 54.2 LAB L100.1900 150-450 K/mm3 Normal PLT 245 LAB L100.2000 6.2-12.0 fl Normal MPV 9.1 LAB L100.2100 47-70 % Normal NEUT% 58.2 LAB L100.2200 19-41 % Normal LY% 29.0 LAB L100.2300 0-10 % Normal MONO% 6.7 LAB L100.2400 0-5 % High EO% 5.1 LAB L100.2500 0-1 % Normal BASO% 0.6 LAB L100.2550 0.0-0.9 % Normal IM GRAN % 0.400 Result Comment: IG% - Immature Granulocytes (promyelocytes, myelocytes and metamyelocytes) > 1% indicates that a LEFT SHIFT is Present. LAB L100.2620 2.0-7.7 X10 3/uL Normal Absolute Neut 2.8 LAB L100.2720 0.83-4.51 X10 3/ul Normal Absolute Lymph 1.42 Performed By: #### L100.0100 #### [facility] [address] [place], [address] PROTHROMBIN TIME W/INR Collected: 07/25/2017 Status: F Source: ARIELA 11:43 [facility] Order Comment: Reason for Laboratory Test PE TYPE CODE TESTS RESULT OUT OF RANGE REFERENCE UNITS LAB L300.4150 11.7-14.9 SECONDS Normal PROTIME 13.6 LAB L300.4200 Normal INR 1.1 Performed By: #### L300.3900 #### [facility] [address] [place], [address] ALLERGIES ALLERGIES DATE TYPE / CODE NAME / CODE REACTION SEVERITY SOURCE 06/30/2018 Drug niacin/[id number] Anaphylaxis [facility] [place] Allergy/416 052(RXNORM) Community 716592([facility] ED CT) Repository 06/30/2018 Drug bee venom Anaphylaxis [facility] [place] Allergy/416 protein ([facility] 353882([facility] bee)/[id number] Hospital ED CT) 5(RXNORM) Repository 06/10/2011 Environ/420 BEES ANAPHYLAXIS High [facility] 735409([facility] ED CT) Repository 05/07/2002 DRUG NIACIN ITCHING Low [facility] INGREDI/[address] [place] 753671([facility] Repository ED CT) NG/[id number] BEES [facility] 6([facility] CT) Repository NG/[id number] NIACIN [facility] 6([facility] CT) Repository ENCOUNTERS ENCOUNTERS ADMIT/DISCHARGE ACCOUNT NUMBER ADMITTING ENCOUNTER LOCATION SOURCE CLASS 07/17/2018 [id number] Ambulatory Building:[facility] Practices Repository 06/30/2018/06/30/20 [id number] Emergency [address] ding:ED Repository 05/11/2018/05/11/20 [id number] Ambulatory [address] Other [place] Repository 05/11/2018/05/11/20 [id number] Ambulatory [address] System MEDICAL Repository CENTERBuildi ng:AGWM 05/07/2018 [id number] Ambulatory [facility] ding:[facility] Repository 05/07/2018 [id number] Ambulatory BMSBuilding: [facility] Repository 04/20/2018/04/23/20 [id number] Ambulatory [address] Repository 04/16/2018/04/17/20 [id number] Ambulatory [address] Repository 04/10/2018/04/11/20 [id number] Ambulatory [address] Repository 03/28/2018 [id number] Ambulatory [facility] ding:ONC Repository 03/28/2018 [id number] Ambulatory [facility] ding:ONC Repository 02/28/2018 [id number] Ambulatory BMSBuilding: [place] BMS.CF.[facility] Repository 01/04/2018 [id number] Ambulatory [facility] ding:CT Repository 12/29/2017 [id number] Ambulatory [facility] ding:LAB.FUT Repository URE 08/16/2017 [id number] Ambulatory BMSBuilding: [place] BMS.[facility] Repository 08/08/2017 [id number] Ambulatory [facility] ding:ONC Repository 08/08/2017 [id number] Ambulatory BMSBuilding: [facility] Repository 08/07/2017/08/07/19 [id number] Emergency [address] ding:ED Repository 08/02/2017 [id number] Ambulatory [facility] ding:CT Repository 07/25/2017 [id number] Ambulatory BMSBuilding: [place] BMS.[facility] Repository FUNCTIONAL STATUS FUNCTIONAL STATUS No Functional Status Records FoundEQUIPMENT EQUIPMENT No Equipment Records FoundPAYERS PAYERS ENCOUNTER GUARANTOR PAYER SUBSCRIBER SOURCE 07/17/2018 Eileen Hawk Primary Eileen VARELA Practices TopokiDOB: Insurance:MedicarePoli TopokiDOB: Repository [id number] cy Number: [id number] [facility] [id number] [address] [place], [place] Date:1215-88-04EbzyWillington, [place] [address]Snt: (449) Name:CPO Saldana 1000[address]Qdf: 127460Oumlfdcj, [place] [phone] () ()Tel: [phone]: [phone] 07/17/2018 Secondary Eileen A OHIP Practices Insurance:[facility] TopovskiDOB: Repository cy Number: [id number] [address] [place] [address] Date:2765-73-88[place]loqW[place], [place] Name:Brian Saldana [address]Def: [address]Omtwbfv, [place] ~(3 [phone]: [phone] 06/30/2018 EILEEN A Primary EILEEN A [place] [id number] Insurance:MEDICARE TOPOVSKIDOB: [facility] PART A BPolicy Number: [id number] [place], [place] [id number] Repository [address]Jmd: (330) Date:2018-06-30 [phone] (HP) 06/30/2018 Secondary EILEEN A [place] [facility] TOPOVSKIDOB: Community Number: [id number] Hospital [id number] Repository Date:8372-61-97[address]vwtjvj, [place] [address]LV: 06/30/2018 Tertiary NOT GIVENUNK [place] Insurance:SELF PAY [facility] Number: Effective Repository Date:2018-06-30 05/11/2018 EILEEN A Primary EILEEN A [facility] TOPOVSKIDOB: Insurance:MEDICARE A TOPOVSKIDOB: Health System AND BPolicy Number: [id number] [facility] [id number] [place], [place] [address]Brh: Date: (HP) 05/11/2018 Secondary EILEEN A [facility] Insurance:[facility] AAR TOPOVSKIDOB: [facility] [id number] Repository Number: [id number] Date: 05/07/2018 EILEEN A Primary EILEEN A [place] [id number] Insurance:MEDICARE TOPOVSKIDOB: [facility] PART A BPolicy Number: [id number] [place], [place] [id number] Repository [address]Uym: (330) Date:2018-04-1619 () 05/07/2018 Secondary EILEEN A [place] Insurance:AARPPolicy TOPOVSKIDOB: Community Number: [id number] Hospital [id number] Repository Date:4498-42-12Ua [address]I[place], [place] [address]ZY: 05/07/2018 Tertiary NOT GIVENUNK [place] Insurance:SELF PAY [facility] Number: Effective Repository Date:2018-04-16 05/07/2018 EILEEN A Primary EILEEN A [place] [id number] Insurance:MEDICARE TOPOVSKIDOB: [facility] PART A BPolicy Number: [id number] [place], [place] [id number] Repository [address]Xgn: (330) Date:2018-04-1626 () 05/07/2018 Secondary EILEEN A [place] Insurance:AARPPolicy TOPOVSKIDOB: Community Number: [id number] Hospital [id number] Repository Date:6172-36-75Qi [address]Rnthjib, [place] [address]UF: 05/07/2018 Tertiary NOT GIVENUNK [place] Insurance:SELF PAY [facility] Number: Effective Repository Date:2018-05-07 03/28/2018 Eileen A Primary Eileen A [place] [id number] Insurance:MEDICARE TopovskiDOB: [facility] PART A BPolicy Number: [id number], [place] [id number] Repository [address]Nbp: (330) Date:2018-03-28 [phone] () 03/28/2018 Secondary Eileen A [place] Insurance:AARPPolicy TopovskiDOB: Community Number: [id number] Hospital [id number] Repository Date:5099-51-25Kl [address], [place] [address]KH: 03/28/2018 Tertiary NOT GIVENUNK [place] Insurance:SELF PAY [facility] Number: Effective Repository Date:2018-03-28 03/28/2018 Eileen A Primary Eileen A [place] [id number] Insurance:MEDICARE TopovskiDOB: Community [place] PART A BPolicy Number: [id number], [place] [id number] Repository [address]Phg: (330) Date:2001-10-29 () 03/28/2018 Secondary Eileen A [place] Insurance:AARPPolicy TopovskiDOB: Community Number: [id number] Hospital [id number] Repository Date:5721-32-06Ft [address], [place] [address]PX: 03/28/2018 Tertiary NOT GIVENUNK [place] Insurance:SELF PAY [facility] Number: Effective Repository Date:2016-11-09 02/28/2018 Eileen A Primary Eileen A [place] [id number] Insurance:MEDICARE TopovskiDOB: Community [place] PART A BPolicy Number: [id number], [place] [id number] Repository [address]Ghr: (330) Date:2001-10-2999 () 02/28/2018 Secondary Eileen A [place] Insurance:AARPPolicy TopovskiDOB: Community Number: [id number] Hospital [id number] Repository Date:9232-27-52Ky [address], [place] [address]KE: 02/28/2018 Tertiary NOT GIVENUNK [place] Insurance:SELF PAY [facility] Number: Effective Repository Date:2018-02-28 01/04/2018 Eileen A Primary Eileen A [place] [id number] Insurance:MEDICARE TopovskiDOB: Community [place] PART A BPolicy Number: [id number], [place] [id number] Repository [address]Brz: (330) Date:2017-12-2609 () 01/04/2018 Secondary Eileen A [place] Insurance:AARPPolicy TopovskiDOB: Community Number: [id number] Hospital [id number] Repository Date:1817-97-00[address], [place] [address]EI: 01/04/2018 Tertiary NOT GIVENUNK [place] Insurance:SELF PAY [facility] Number: Effective Repository Date:2017-12-26 12/29/2017 Eileen A Primary Eileen A [place] [id number] Insurance:MEDICARE TopovskiDOB: [facility] PART A BPolicy Number: [id number], [place] [id number] Repository [address]Yqs: Date:2017-12-29 ~330 -2 (HP) 12/29/2017 Secondary Eileen A [place] Insurance:AARPPolicy TopovskiDOB: Community Number: [id number] Hospital [id number] Repository Date:1224-17-00Fq [place] [address], [place] [address]YP: 12/29/2017 Tertiary NOT GIVENUNK [place] Insurance:SELF PAY [facility] Number: Effective Repository Date:2017-12-29 08/16/2017 Eileen A Primary Eileen A [place] [id number] Insurance:MEDICARE TopovskiDOB: [facility] PART A BPolicy Number: [id number], [place] [id number] Repository [address]Ixs: Date:2001-10-29 ~330 -2 (HP) 08/16/2017 Secondary Eileen A [place] Insurance:AARPPolicy TopovskiDOB: Community Number: [id number] Hospital [id number] Repository Date:4324-78-55Gu [address], [place] [address]RK: 08/16/2017 Tertiary NOT GIVENUNK [place] Insurance:SELF PAY [facility] Number: Effective Repository Date:2017-08-16 08/08/2017 Eileen A Primary Eileen A [place] [id number] Insurance:MEDICARE TopovskiDOB: [facility] PART A BPolicy Number: [id number], [place] [id number] Repository [address]Wzl: Date:2017-07-25 ~330 -2 (HP) 08/08/2017 Secondary Eileen A [place] Insurance:AARPPolicy TopovskiDOB: Community Number: [id number] Hospital [id number] Repository Date:7068-26-15Qh [address]zps[place], [place] [address]XP: 08/08/2017 Tertiary NOT GIVENUNK [place] Insurance:SELF PAY [facility] Number: Effective Repository Date:2017-07-25 08/08/2017 Eileen A Primary Eileen A [place] [id number] Insurance:MEDICARE TopovskiDOB: [facility] PART A BPolicy Number: [id number], [place] [id number] Repository [address]Hlu: Date:2017-07-25 ~330 -2 (HP) 08/08/2017 Secondary Eileen A [place] Insurance:AARPPolicy TopovskiDOB: Community Number: [id number] Hospital [id number] Repository Date:9377-19-46Mw [address]ff[place], [place] [address]EB: 08/08/2017 Tertiary NOT GIVENUNK [place] Insurance:SELF PAY [facility] Number: Effective Repository Date:2017-08-08 08/07/2017 Eileen A Primary Eileen A [place] [id number] Insurance:MEDICARE TopovskiDOB: [facility] PART A BPolicy Number: [id number], [place] [id number] Repository [address]Pqm: Date:2017-08-07 ~330 -2 (HP) 08/07/2017 Secondary Eileen A [place] Insurance:AARPPolicy TopovskiDOB: Community Number: [id number] Hospital [id number] Repository Date:9075-57-47[address]Ofnxqae, [place] [address]DL: 08/07/2017 Tertiary NOT GIVENUNK [place] Insurance:SELF PAY [facility] Number: Effective Repository Date:2017-08-07 08/02/2017 Eileen Hawk Primary Eileen Hawk [place] [id number] Insurance:MEDICARE TopovskiDOB: [facility] PART A BPolicy Number: [id number], [place] [id number] Repository [address]Lsk: Date:2017-07-06 ~330 -2 (HP) 08/02/2017 Secondary Eileen A [place] Insurance:AARPPolicy TopovskiDOB: Community Number: [id number] Hospital [id number] Repository Date:6183-37-51[address]Pvcbkgq, [place] [address]LJ: 08/02/2017 Tertiary NOT GIVENUNK [place] Insurance:SELF PAY [facility] Number: Effective Repository Date:2017-07-06 07/25/2017 Eileen A Primary Eileen Hawk Ari[place] [id number] Insurance:MEDICARE TopovskiDOB: [facility] PART A BPolicy Number: [id number], [place] [id number] Repository [address]Rwx: Date:2001-10-29 ~330 -2 (HP) 07/25/2017 Secondary Eileen A [place] Insurance:AARPPolicy TopovskiDOB: Community Number: [id number] Hospital [id number] Repository Date:0160-67-98Zn [address]Qgxylft, [place] [address]DI: 07/25/2017 Tertiary NOT GIVENUNK [place] Insurance:SELF PAY [facility] Number: Effective Repository Date:2017-07-25 SOCIAL HISTORY SOCIAL HISTORY No Social History Records FoundFAMILY HISTORY FAMILY HISTORY No Family History Records FoundADVANCE DIRECTIVES ADVANCE DIRECTIVES No Advanced Directives Records FoundINFORMATION SOURCE INFORMATION SOURCE DATE CREATED AUTHOR AUTHOR'S ORGANIZATION 07/18/2018 OHIP
== END 2018-06-30 15:19 | disposition home or self-care (01) ==
PROVIDERS: Emergency Provider Emergency Medicine; Family Provider Internal Medicine; PCP Internal Medicine
DX: I82.412 Acute embolism and thrombosis of left femoral vein (principal); D68.51 Activated protein C resistance; N18.4 Chronic kidney disease, stage 4 (severe); E03.9 Hypothyroidism, unspecified; Z86.711 Personal history of pulmonary embolism; Z85.72 Personal history of non-Hodgkin lymphomas; Z79.899 Other long term (current) drug therapy
CPT/HCPCS: 93971; 99283

== ENCOUNTER → 2018-07-20 15:44 | Outpatient (CLI) | payer MEDICARE, OTHER, SELFPAY ==
[2018-06-30 12:47] VITALS: BMI 23.0
[2018-07-20 16:15] LABS: CREATININE FINGERSTICK 2.3 mg/dL (0.55-1.02)
--- NOTE | 2018-07-20 16:17 | RAD_ITS ---
STUDY: X-RAY CHEST REASON FOR EXAM: Female, 82 years old. Chest pain and cough, elevated creatinine TECHNIQUE: PA and lateral views of the chest. COMPARISON: 07/10/2017 FINDINGS: Left subclavian port tip in the proximal SVC. Lungs are hyperexpanded with chronic interstitial changes, no superimposed acute pulmonary process. There is no demonstrated pleural abnormality. Normal size heart. Normal mediastinum and elin. Normal visualized pulmonary arteries. There is atherosclerotic calcification of the aortic arch with tortuosity. There are diffuse degenerative changes of the visualized thoracic spine with multiple vertebral plasties.. Normal visualized ribs, clavicles, and shoulders. There is no demonstrated abnormality of the visualized soft tissue structures of the upper abdomen. RAD/Chest PA and Lateral IMPRESSION: Degenerative changes, as described above. No demonstrated acute cardiopulmonary process. Electronically Signed: Louis Dunne MD at 16:40 EST , Service support ,
== END ==
PROVIDERS: Family Provider Internal Medicine; PCP Internal Medicine; Referring Provider Internal Medicine; Visit Provider Internal Medicine
DX: R06.02 Shortness of breath (principal); R05 Cough
CPT/HCPCS: 71046

== ENCOUNTER → 2018-07-30 09:27 | Outpatient (CLI) | payer MEDICARE, OTHER, SELFPAY ==
[2018-06-30 12:47] VITALS: BMI 23.0
--- NOTE | 2018-07-30 09:31 | NM_ITS ---
CLINICAL: Female, 82 years old. Shortness of breath. Left lower extremity deep venous thrombosis. NUCLEAR VENTILATION/PERFUSION - LUNG TECHNIQUE: The patient was administered 5.6 mCi of Tc MAA followed by a perfusion lung scan. The patient was administered 48.5 mCi of Tc DTPA aerosol followed by a ventilation lung scan. Comparison made to prior chest radiograph dated . COMPARISON STUDIES : Comparison is made with prior chest radiograph done earlier in the day. FINDINGS: The pulmonary perfusion study demonstrates uniform perfusion throughout both lung [place]. There are no demonstrated segmental or subsegmental perfusion defects There is evidence of central clumping of the inhalational agent suggestive of COPD. There are no segmental or subsegmental ventilation abnormalities. NM/Lung Scan Vent/Perf IMPRESSION: Normal 99m Tc MAA pulmonary perfusion Tc DTPA aerosol ventilation imaging survey, according to revised PIOPED interpretive criteria. Electronically Signed: Vishal Mendez MD at 11:31 EST Tel [phone], Service support ,
--- NOTE | 2018-07-30 10:15 | RAD_ITS ---
STUDY: X-RAY CHEST REASON FOR EXAM: Female, 82 years old. Chest pain and shortness of breath. TECHNIQUE: PA and lateral views of the chest. COMPARISON: Comparison is made with prior study dated July 20, 2018. FINDINGS: A left-sided portacatheter is seen with the tip in the midportion of the superior vena cava. Surgical clips are seen in the right axillary region. Stable diffuse increased interstitial markings in both lungs suggestive of a fibrosis. There is no demonstrated pleural abnormality. Normal size heart. Normal mediastinum and elin. Normal visualized pulmonary arteries. There is atherosclerotic tortuosity of the aortic arch and descending thoracic aorta. There is demineralization of the osseous structures. Increased kyphosis. Prior multilevel vertebral plasties. Normal visualized ribs, clavicles, and shoulders. There is no demonstrated abnormality of the visualized soft tissue structures of the upper abdomen. RAD/Chest PA and Lateral IMPRESSION: Increased interstitial markings suggestive of scarring. There has been no change. Electronically Signed: Vishal Mendez MD at 13:02 EST Tel [phone], Service support ,
== END ==
PROVIDERS: Family Provider Internal Medicine; PCP Internal Medicine; Referring Provider Internal Medicine; Visit Provider Internal Medicine
DX: R06.02 Shortness of breath (principal)
CPT/HCPCS: 71046; 78582; A9540; A9567

== ENCOUNTER → 2018-08-03 13:57 | Outpatient (CLI) | payer MEDICARE, OTHER, SELFPAY ==
[2018-08-03 16:31] LABS: Albumin, Serum 3.2 g/dL (3.2-5.0); BUN 35 mg/dL (7-18); BUN/Creat Ratio 13.7 RATIO (10-20); Calcium,Total 10.2 mg/dL (8.5-10.1); Chloride 106 mmol/L (98-107); Creatinine, Serum 2.55 mg/dL (0.55-1.02); EST Glomerular Filtration Rate 19 mL/min (>60); Est Glom Filt Rate - Afr Amer 23 mL/min (>60); Glucose 87 mg/dL (74-106); Phosphorus 3.4 mg/dL (2.5-4.9); Potassium 4.1 mmol/L (3.5-5.1); Sodium Level 139 mmol/L (136-145)
[2018-08-03 16:33] LABS: Hematocrit 31.2 % (37-47); Hemoglobin 9.8 g/dl (12.0-15.0); Mean Corp Hgb Conc 31.4 g/gl (32-36); Mean Corpuscular Hgb 28.3 pg (27.0-32.0); Mean Corpuscular Volume 90.2 fL (81-99); Mean Platelet Vol. 9.8 fl (6.2-12.0); Platelet Count 245 K/mm3 (150-450); RBC Distribution Width CV 14.4 % (11.6-14.6); RBC Distribution Width SD 47.7 fl (35.1-43.9); Red Blood Count 3.46 M/mm3 (4.2-5.4); White Blood Count 9.4 K/mm3 (4.4-11.0)
[2018-08-03 16:36] LABS: Scan Indicated on CBC? Y/N NO
[2018-08-03 16:37] LABS: Protein, Urine (Random) 192.8 mg/dL (<11.9)
[2018-08-03 16:38] LABS: Protein:Creat Ratio 1020 mg/g CRE (0-200)
[2018-08-03 16:44] LABS: Vitamin D,25 Hydroxy 43.5 ng/mL (29.95-100.01)
[2018-08-03 17:00] LABS: PTHIN 13.5 pg/mL (18.4-80.1)
== END ==
PROVIDERS: Family Provider Internal Medicine; PCP Internal Medicine; Referring Provider Internal Medicine Nephrology; Visit Provider Internal Medicine Nephrology
DX: N18.4 Chronic kidney disease, stage 4 (severe) (principal); D63.1 Anemia in chronic kidney disease; N25.81 Secondary hyperparathyroidism of renal origin
CPT/HCPCS: 36591; 80069; 82306; 82570; 83970; 84156; 85027; A4216

== ENCOUNTER → 2018-11-26 | Outpatient (CLI) | payer MEDICARE, OTHER, SELFPAY ==
[2018-10-25 16:02] VITALS: BMI 22.6
[2018-11-26 15:30] LABS: Protein, Urine (Random) 88.3 mg/dL (<11.9); Protein:Creat Ratio 589 mg/g CRE (0-200)
[2018-11-26 15:44] LABS: Hematocrit 30.1 % (37-47); Hemoglobin 9.5 g/dl (12.0-15.0); Mean Corp Hgb Conc 31.6 g/gl (32-36); Mean Corpuscular Hgb 28.2 pg (27.0-32.0); Mean Corpuscular Volume 89.3 fL (81-99); Mean Platelet Vol. 9.6 fl (6.2-12.0); Platelet Count 296 K/mm3 (150-450); RBC Distribution Width CV 14.5 % (11.6-14.6); RBC Distribution Width SD 47.4 fl (35.1-43.9); Red Blood Count 3.37 M/mm3 (4.2-5.4)
[2018-11-26 15:48] LABS: BUN 41 mg/dL (7-18); BUN/Creat Ratio 15.1 RATIO (10-20); Calcium,Total 8.2 mg/dL (8.5-10.1); Chloride 112 mmol/L (98-107); Creatinine, Serum 2.72 mg/dL (0.55-1.02); EST Glomerular Filtration Rate 18 mL/min (>60); Est Glom Filt Rate - Afr Amer 22 mL/min (>60); Glucose 92 mg/dL (74-106); Phosphorus 3.3 mg/dL (2.5-4.9); Scan Indicated on CBC? Y/N NO; Sodium Level 138 mmol/L (136-145)
[2018-11-26 15:57] LABS: Vitamin D,25 Hydroxy 22.3 ng/mL (29.95-100.01)
[2018-11-26 16:04] LABS: PTHIN 63.8 pg/mL (18.4-80.1)
== END | disposition home or self-care (01) ==
PROVIDERS: Family Provider Internal Medicine; PCP Internal Medicine; Visit Provider Physician Assistant Medical
DX: N18.4 Chronic kidney disease, stage 4 (severe) (principal); N25.81 Secondary hyperparathyroidism of renal origin; D63.1 Anemia in chronic kidney disease
CPT/HCPCS: 36591; 80069; 82306; 82570; 83970; 84156; 85027; A4216

== ENCOUNTER → 2018-12-27 | Outpatient (CLI) | payer MEDICARE, OTHER, SELFPAY ==
[2018-10-25 16:02] VITALS: BMI 22.6
--- NOTE | 2018-12-27 15:26 | BD_ITS ---
STUDY: DUAL ENERGY X-RAY ABSORPTIOMETRY / DXA REASON FOR EXAM: Female, 83 years old. The patient is postmenopausal. Loss of height. TECHNIQUE: Bone Mineral Density (BMD) measurements of lumbar spine and left hip were obtained. The patient is status post right hip replacement. COMPARISON: Comparison is made with prior study dated December 02, 2014. FINDINGS: Lumbar Spine (L1-L4): g/cm2 (0.782) / T-score (-3.2) / Z-score (-1.3) Findings are suggestive of osteoporosis with a high fracture risk. Left Femur Total: g/cm2 (0.671) / T-score (-2.7) / Z-score (-0.6) Left Femoral Neck: g/cm2 (0.732) / T-score (-2.2) / Z-score (0.0) The T-Scores on the most recent prior examination were: Lumbar Spine (L1-L4): There has been worsening of bone density since the previous examination. Left Femur Total: which represents a worsening of 10.4%. BD/Dexa Bone Density Study IMPRESSION: The patient is considered osteoporotic as outlined below according to World Sony Organization (WHO) criteria with a high fracture risk. There has been worsening of bone density since the previous examination. Reference Information: The T-score is the number of standard deviations above or below the standard which is normal for young adults at their peak bone mineral density. The World Health Organization (WHO) interprets the T-scores as follows: Above -1 Normal bone density Between -1 and -2.5 Osteopenia Equal to / or below -2.5 Osteoporosis As a practical clinical guideline, osteopenia may be graded as follows: Mild -1 through -1.5 Moderate -1.6 through -2.0 Severe -2.1 through -2.4 The Z-score is the number of standard deviations above or below age-matched controls. A Z-score of less than -1.5 would be considered abnormal. References: 1. NIH Osteoporosis and Related Bone Diseases http://www.osteo.org 2. International Society for Clinical Densitometry http://www.iscd.org 3. National Osteoporosis Foundation http://www.nof.org Electronically Signed: Vishal Mendez, at 9:17 EDT , Service support ,
--- NOTE | 2018-12-27 15:26 | BI_ITS ---
MAMMOGRAPHY - BILATERAL SCREENING REASON FOR EXAM: Female, 83 years old. Routine annual screening examination. PERTINENT HISTORY: Aunt with breast cancer. Remote left stereotactic breast biopsy. TECHNIQUE: Digital bilateral breast roma (3D mammographic acquisition) in the CC and MLO projections. 2-D mediolateral oblique (MLO) and craniocaudad (CC) views of both breasts were obtained. CAD: Full Field Digital Mammography with Computer Added Detection was performed. COMPARISON: Comparison is made with prior study dated December 21, 2016 and March 01, 2013. FINDINGS: Breast Composition: There are scattered areas of fibroglandular density. There are no dominant masses or suspicious calcifications. Once again, a stereotactically surgical markers seen in the retroareolar region of the left breast. The port from a erik catheter is seen in the left axillary region. Stable secretory calcifications. No other significant abnormalities are identified. There has been no significant change since the prior study. BI/SCREENING MAMM (CAD), BILAT IMPRESSION: Stable bilateral screening mammogram. Yearly follow-up mammogram recommended. (A) ASSESSMENT CATEGORY: BIRADS Category 2: Benign. A letter regarding these results will be sent to the patient by the facility within 30 days. Approximately 10% of breast cancers are not detected by mammography. A normal mammogram should not delay biopsy of a clinically suspicious abnormality. [id number] Electronically Signed: Vishal Mendez, at 8:17 EDT , Service support ,
== END | disposition home or self-care (01) ==
LOC: OPBD 15:22
PROVIDERS: Family Provider Internal Medicine; PCP Internal Medicine; Referring Provider Internal Medicine; Visit Provider Internal Medicine
DX: Z12.31 Encounter for screening mammogram for malignant neoplasm of breast (principal); Z78.0 Asymptomatic menopausal state
CPT/HCPCS: 77063; 77067; 77080

== ENCOUNTER → 2019-01-14 | Outpatient (CLI) | payer MEDICARE, OTHER, SELFPAY ==
[2018-10-25 16:02] VITALS: BMI 22.6
[2019-01-14 10:11] VITALS: BP 110/74; PULSE 89; RESP 18; TEMP 36.1; O2SAT 94; BMI 22.3
[2019-01-14 11:03] VITALS: BP 115/56; PULSE 75; RESP 16; TEMP 36.5
[2019-01-14 12:03] VITALS: BP 126/103; PULSE 90; RESP 16; TEMP 36.2; O2SAT 100
[2019-01-14 12:14] VITALS: BP 149/75
[2019-01-14 13:03] VITALS: BP 148/76; PULSE 79; RESP 16; TEMP 36.2; O2SAT 100
[2019-01-14 13:36] VITALS: BP 152/79; PULSE 79; RESP 16; TEMP 37.1; O2SAT 100
== END | disposition home or self-care (01) ==
LOC: MEDOUTP 10:04
PROVIDERS: Family Provider Internal Medicine; PCP Internal Medicine; Referring Provider Internal Medicine; Visit Provider Internal Medicine
DX: D64.9 Anemia, unspecified (principal); N18.9 Chronic kidney disease, unspecified; I50.9 Heart failure, unspecified
CPT/HCPCS: 36415; 36430; 86850; 86900; 86920; 86922; J7040; P9016; A4216

== ENCOUNTER → 2019-04-30 15:00 | Outpatient (CLI) | payer MEDICARE, OTHER, SELFPAY ==
[2019-01-14 10:11] VITALS: BMI 22.3
--- NOTE | 2019-04-30 15:05 | RAD_ITS ---
STUDY: X-RAY CHEST REASON FOR EXAM: Female, 83 years old. Cough. Cold like symptoms. TECHNIQUE: PA and lateral views of the chest. COMPARISON: Comparison is made with prior study dated July 30, 2018. FINDINGS: A left-sided portacatheter is seen with the tip in the midportion of the superior vena cava. Surgical clips are seen in the right axillary region. Stable increased markings in both lungs suggestive of interstitial fibrosis. Blunting of both costophrenic angles. There has been no change. There is mild cardiac enlargement. Normal mediastinum and elin. Normal visualized pulmonary arteries. There is atherosclerotic tortuosity of the aortic arch and descending thoracic aorta. Prior vertebroplasty of multiple thoracic vertebrae with increased kyphosis. Persistent loss of height of the mid dorsal vertebrae. Normal visualized ribs, clavicles, and shoulders. There is no demonstrated abnormality of the visualized soft tissue structures of the upper abdomen. RAD/Chest PA and Lateral IMPRESSION: Stable examination. No acute abnormality is seen. Electronically Signed: Vishal Mendez, at 15:30 EDT , Service support ,
== END ==
PROVIDERS: Family Provider Internal Medicine; PCP Internal Medicine; Referring Provider Nurse Practitioner; Visit Provider Nurse Practitioner
DX: J40 Bronchitis, not specified as acute or chronic (principal)
CPT/HCPCS: 71046

== ENCOUNTER → 2019-05-31 14:08 | Outpatient (CLI) | payer MEDICARE, OTHER, SELFPAY ==
[2019-05-01 14:10] VITALS: BMI 21.8
[2019-05-31 14:43] LABS: Hematocrit 32.1 % (37-47); Mean Corp Hgb Conc 31.2 g/dL (32-36); Mean Corpuscular Hgb 29.2 pg (27.0-32.0); Mean Corpuscular Volume 93.9 fL (81-99); Mean Platelet Vol. 9.9 fl (6.2-12.0); Platelet Count 170 K/mm3 (150-450); RBC Distribution Width CV 15.7 % (11.6-14.6); RBC Distribution Width SD 54.4 fl (35.1-43.9); Red Blood Count 3.42 M/mm3 (4.2-5.4); White Blood Count 6.4 K/mm3 (4.4-11.0)
[2019-05-31 15:11] LABS: Albumin, Serum 3.2 g/dL (3.2-5.0); BUN 47 mg/dL (7-18); BUN/Creat Ratio 16.7 RATIO (10-20); Calcium,Total 9.7 mg/dL (8.5-10.1); Chloride 104 mmol/L (98-107); Creatinine, Serum 2.81 mg/dL (0.55-1.02); EST Glomerular Filtration Rate 17 mL/min (>60); Est Glom Filt Rate - Afr Amer 21 mL/min (>60); Glucose 100 mg/dL (74-106); Phosphorus 4.3 mg/dL (2.5-4.9); Sodium Level 136 mmol/L (136-145)
[2019-05-31 16:20] LABS: Vitamin D,25 Hydroxy 36.8 ng/mL (29.95-100.01)
[2019-05-31 16:54] LABS: Protein, Urine (Random) 107.2 mg/dL (<11.9); Protein:Creat Ratio 901 mg/g CRE (0-200)
[2019-06-03 08:59] LABS: PTHIN 57.8 pg/mL (18.4-80.1)
== END ==
PROVIDERS: Family Provider Internal Medicine; PCP Internal Medicine; Referring Provider Internal Medicine Nephrology; Visit Provider Internal Medicine Nephrology
DX: N18.4 Chronic kidney disease, stage 4 (severe) (principal); N25.81 Secondary hyperparathyroidism of renal origin; D63.1 Anemia in chronic kidney disease
CPT/HCPCS: 36415; 80069; 82306; 82570; 83970; 84156; 85027

== ENCOUNTER 2019-08-10 09:25 | Outpatient (CLI) | payer MEDICARE, OTHER, SELFPAY ==
[2019-05-01 14:10] VITALS: BMI 21.8
[2019-08-10] VITALS (9 sets, daily range): BP systolic 104–117; BP diastolic 56–68; PULSE 65–89; RESP 16–18; TEMP 36.4–37.1; O2SAT 94–100
[2019-08-10] MEDS: 0.9% Saline Lock 10 ML Syringe IV ×2 (10:30→16:30)
[2019-08-10] MEDS: Furosemide 20 MG/2 ML VIAL IV (13:03)
[2019-08-10 16:44] LABS: Hematocrit 29.8 % (37-47); Hemoglobin 9.9 g/dL (12.0-15.0)
== END 2019-08-10 16:46 | disposition home or self-care (01) ==
LOC: MEDOUTP 09:27 → MS3 09:27
PROVIDERS: Family Provider Internal Medicine; PCP Internal Medicine; Referring Provider Internal Medicine; Visit Provider Internal Medicine
DX: D64.9 Anemia, unspecified (principal)
CPT/HCPCS: 36430; 36592; 85014; 85018; 86850; 86900; 86901; 86920; 86922; J7040; P9016; A4216; J1940

== ENCOUNTER 2019-09-10 14:23 | Inpatient (IN) | payer MEDICARE, OTHER, SELFPAY ==
[2019-05-01 14:10] VITALS: BMI 21.8
[2019-09-10] VITALS (7 sets, daily range): BP systolic 99–120; BP diastolic 62–71; PULSE 79–107; RESP 16–20; TEMP 36.3–36.6; O2SAT 92–100; BMI 20.5; BMI 21.9; BMI 22.0
--- NOTE | 2019-09-10 14:50 | EKG12_ITS ---
Test Reason : FATIQUE Blood Pressure : / mmHG Vent. Rate : 079 BPM Atrial Rate : 079 BPM P-R Int : 176 ms QRS Dur : 084 ms QT Int : 388 ms P-R-T Axes : 030 -14 027 degrees QTc Int : 444 ms Normal sinus rhythm Normal ECG Confirmed by VALERIE DEE ([id number]), rewrite editor RYAN LOPEZ ([id number]) on 09/12/2019 3:18:23 PM Referred By: JANAE Confirmed By:VALERIE DEE
--- NOTE | 2019-09-10 14:57 | ED.VIS.GEN ---
History of Present Illness Chief Complaint: Abn Labs Informant: Patient Onset: Days Context: Gradual Onset Timing: Continuous Current Severity: Moderate Maximum Severity: Moderate Narrative: The patient is an 83-year-old female with medical history significant for prior non-Hodgkin's lymphoma who is been in remission. She was treated 3 separate times for this. She states that she had outpatient blood work done yesterday. She was found to have low platelets and increasing renal function. She states that she still urinating, but has been more fatigued and has diminished appetite. She is had a scant cough. She denies fevers or chills. She denies abdominal pain. She does have an ostomy and states her output has been decreased, but she is not been eating as much. Her only current medication is levothyroxine. Prior similar symptoms: No Recent Illness/Hospitalization: No Past Medical History - Allergies and Home Meds Allergies/Adverse Reactions: Allergies bee venom protein (honey bee) Allergy (Severe, Verified 09/10/19 14:25) Anaphylaxis niacin Allergy (Severe, Verified 09/10/19 14:25) Anaphylaxis swelling of face and throat Primary Care Physician: Anya Lua DO [Primary Care Provider] - Prior records reviewed: Yes Past Medical History: - - Prior lymphoma, thyroid disease Surgical History: appendectomy, colectomy - In October 2004 she underwent a distal transverse loop colostomy. This was done secondary to thickening of the rectum and sigmoid area. She also underwent an appendectomy at the same time., - - Left chest port placement. Right arm fistula. Smoking Status: Never smoker - Family History Paternal Family History: Family History (Last Reviewed 05/01/19 @ 14:09 by Marilu Pierre) Father FH: colon cancer Mother Diabetes Sister Diabetes Brother Diabetes Family History: Reports: - Maternal Family History: Family History (Last Reviewed 05/01/19 @ 14:09 by Marilu Pierre) Father FH: colon cancer Mother Diabetes Sister Diabetes Brother Diabetes Family History: Reports: Stroke Review of Systems General: Reports: Malaise, Weight loss Eyes: Denies: Visual changes - bilaterally, Diplopia ENT: Denies: Rhinorrhea, Sore throat Cardiovascular: Denies: Chest pain, Palpitations Respiratory: Reports: Cough Gastrointestinal: Reports: Nausea Genitourinary: Denies: Dysuria, Hematuria, Frequency Musculoskeletal: Denies: Back pain, Extremity Pain Skin: Denies: Rash, Wounds Neurological: Denies: Headache, Weakness, Numbness Physical Exam Vital Signs/Narrative: Vital Signs Temp Pulse Resp BP Pulse Ox 09/10/19 14:25 97.6 F L 107 H 16 110/62 94 General: Well nourished, Well developed, No Acute Distress Head: Normocephalic, Atraumatic Eyes: Perrl, EOMI ENT: Moist mucous membranes, No rhinorrhea Neck: Supple, Nontender Cardiovascular: Regular rate, Regular rhythm, No murmurs Respiratory: No distress, CTA bilaterally, Chest nontender Abdomen: Soft, Nontender, Nondistended, Normal bowel sounds Back: Nontender, Normal Inspection Extremities: Nontender, No edema Skin: Normal color, No rash Neurological: Alert, Oriented x3, Cranial nerves II-XII grossly intact, Normal Strength, Normal Sensation Psychological: Normal affect, Normal Mood Diagnostic/Tx/Re-eval Clinical Impression(s) from Imaging Studies Chest X-Ray 09/10/19 16:05 IMPRESSION: No acute thoracic pathology. Electronically Signed: Ranulfo Grant, at 16:32 EST Tel , Service support , Abnormal Lab Results 09/10/19 09/10/19 09/10/19 15:45 15:45 15:45 WBC 2.5 L RBC 2.55 L Hgb 7.9 L Hct 23.8 L MCV 93.3 MCH 31.0 MCHC 33.2 RDW Std Deviation 46.0 H RDW Coeff of Chantelle 13.7 Plt Count 15 L* MPV 10.6 Neut % (Auto) Not Reportable Absolute Neuts (auto) 0.4 L Absolute Lymphs (auto) 1.90 Total Counted 100 Neutrophils % (Manual) 13 L Band Neutrophils % 1 Lymphocytes % (Manual) 76 H* Monocytes % (Manual) 9 Eosinophils % (Manual) 1 Diff Path Review May foll Atypical Lymphocytes 1+ Platelet Estimate MKD DEC RBC Morphology N CHROM Ovalocytes 1+ PT 16.0 H INR 1.3 APTT 30.1 Sodium 133 L Potassium 3.8 Chloride 106 Carbon Dioxide 19.0 L Anion Gap 8 BUN 63 H Creatinine 3.29 H Estim Creat Clear Calc 11.33 Est GFR (MDRD) Af Amer 17 L Est GFR (MDRD) Non-Af 14 L BUN/Creatinine Ratio 19.1 Glucose 89 Calcium 7.6 L Total Bilirubin 0.20 AST 11 L ALT 11 L Alkaline Phosphatase 49 Total Protein 7.2 Albumin 2.9 L Globulin 4.3 H Albumin/Globulin Ratio 0.7 L Blood Type Antibody Screen 09/10/19 15:45 WBC RBC Hgb Hct MCV MCH MCHC RDW Std Deviation RDW Coeff of Chantelle Plt Count MPV Neut % (Auto) Absolute Neuts (auto) Absolute Lymphs (auto) Total Counted Neutrophils % (Manual) Band Neutrophils % Lymphocytes % (Manual) Monocytes % (Manual) Eosinophils % (Manual) Diff Path Review Atypical Lymphocytes Platelet Estimate RBC Morphology Ovalocytes PT INR APTT Sodium Potassium Chloride Carbon Dioxide Anion Gap BUN Creatinine Estim Creat Clear Calc Est GFR (MDRD) Af Amer Est GFR (MDRD) Non-Af BUN/Creatinine Ratio Glucose Calcium Total Bilirubin AST ALT Alkaline Phosphatase Total Protein Albumin Globulin Albumin/Globulin Ratio Blood Type A POSITIVE Antibody Screen NEGATIVE - Medical Decision Making The patient presents with generalized weakness and abnormal labs. I did review these. They were also repeated. 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 With her history, I am concerned for return of her lymphoma versus bone marrow failure. She does have acute on chronic kidney injury. She was hydrated. I did discuss her care with Dr. Hill, the patient's oncologist. Uric acid and LDH were added. At this point, the patient will be admitted for further work-up. He wanted to hold on transfusion at this time which I feel is reasonable. Patient was discussed with the hospitalist and will be admitted. Impression 1. Pancytopenia 2. Acute on chronic kidney injury 3. History of lymphoma ED Disposition - Plan for ED Patient: Referrals: Anya Lua DO [Primary Care Provider] -
[2019-09-10 16:04] LABS: Hematocrit 23.8 % (37-47); Hemoglobin 7.9 g/dL (12.0-15.0); Mean Corp Hgb Conc 33.2 g/dL (32-36); Mean Corpuscular Volume 93.3 fL (81-99); Mean Platelet Vol. 10.6 fl (6.2-12.0); POSITIVE COUNT YES; POSITIVE DIFFERENTIAL YES; POSITIVE MORPHOLOGY YES; RBC Distribution Width CV 13.7 % (11.6-14.6); Red Blood Count 2.55 M/mm3 (4.2-5.4); White Blood Count 2.5 K/mm3 (4.4-11.0)
--- NOTE | 2019-09-10 16:05 | RAD_ITS ---
STUDY: X-RAY CHEST REASON FOR EXAM: Female, 83 years old. Cough TECHNIQUE: Frontal and lateral views of the chest COMPARISON: 04/30/2019 FINDINGS: Again noted is a left-sided port with its tip in the superior vena cava. There are stable chronic increased interstitial markings noted in the lungs. The lungs are otherwise clear. There are no pleural effusions. There is no pneumothorax. The heart is normal in size. Again noted is vertebroplasty cement in the thoracic spine. RAD/Chest PA and Lateral IMPRESSION: No acute thoracic pathology. Electronically Signed: Ranulfo Grant, at 16:32 EST Tel , Service support ,
[2019-09-10 16:11] LABS: Differential Indicated MANUAL DIFF
[2019-09-10 16:12] LABS: Platelet Count 15 K/mm3 (150-450)
[2019-09-10 16:24] LABS: International Normalized Ratio 1.3
[2019-09-10 16:25] LABS: Partial Thromboplast Time 30.1 Seconds (24.1-36.2)
[2019-09-10 16:42] LABS: Eosinophil 1 % (0-5); Lymphocyte 76 % (19-41); Monocyte 9 % (0-10); Neutrophil-Band 1 % (0-5); Neutrophil-Segmented 13 % (47-70); Total Cells Counted 100 (MANUAL DIFF)
[2019-09-10 16:44] LABS: Ovalocyte 1+; Platelet Estimate MKD DEC (ADEQ); Red Cell Morphology N CHROM NORMAL (NORM C&C)
[2019-09-10 16:46] LABS: ALB/GLOB Ratio 0.7 RATIO (0.9-2.4); AST(SGOT) 11 U/L (15-37); Alanine Aminotransfer ALT/SGPT 11 U/L (13-56); Albumin, Serum 2.9 g/dL (3.2-5.0); Alkaline Phosphatase 49 U/L (45-117); Anion Gap 8 (5-15); Atypical Lymphocyte 1+ %; BUN 63 mg/dL (7-18); BUN/Creat Ratio 19.1 RATIO (10-20); Calcium,Total 7.6 mg/dL (8.5-10.1); Chloride 106 mmol/L (98-107); Creatinine, Serum 3.29 mg/dL (0.55-1.02); EST Glomerular Filtration Rate 14 mL/min (>60); Est Glom Filt Rate - Afr Amer 17 mL/min (>60); Estimated Creatinine Clearance 11.33 ml/min; Globulin 4.3 g/dL (2.2-4.2); Glucose 89 mg/dL (74-106); Potassium 3.8 mmol/L (3.5-5.1); Protein, Total 7.2 g/dL (6.4-8.2); Sodium Level 133 mmol/L (136-145)
[2019-09-10 16:48] LABS: Absolute Neutrophil Count 0.4 X10^3/uL (2.0-7.7)
[2019-09-10 17:14] LABS: LDH 240 U/L (84-246); Uric Acid 9.2 mg/dL (2.6-6.0)
[2019-09-10] MEDS: 0.9% Normal Saline 1,000 ML 100 ML IV (17:33)
--- NOTE | 2019-09-10 17:47 | HP.PCM_ITS ---
<Ashok Campbell - Last Filed: 09/10/19 17:47> Problem List (1) Pancytopenia Status: Acute (2) Non-Hodgkin lymphoma Status: Chronic (3) History of pulmonary embolism Status: Chronic (4) Colostomy status Status: Chronic (5) Factor V Leiden Status: Chronic (6) Acquired hypothyroidism Status: Chronic History of Present Illness Date of Admission: 09/10/19 Chief Complaint: abnormal labs The patient is a 83 year old F with pmhx of non hodgkins lymphoma, patient of Dr. Young, hx factor V leiden, hx DVT/PE on eliquis, hx colostomy for severe constipation, hx hypothyroidism, who presented to the ER after being sent for abnormal labs-pancytopenia. Dr. Lua sent her for lab draw yesterday after being seen for generalized weakness. This was confirmed in the ER. Patient has had generalized weakness for about the past month. She has had decreased appetite and about 5 pound weight loss. She has shortness of breath with exertion and does get lightheaded when standing up too quickly. She denies any acute illness or infection. She has no fevers or chills, cough, abdominal pain, nausea or vomiting, wounds, or dysuria. No jose bleeding episodes. She states that she did have a blood transfusion about a month ago from her PCP for ongoing weakness. [] Past Medical History Past Medical History (Chronic Problems): Chronic Problems (Last Reviewed 05/01/19 @ 14:09 by Marilu Pierre) Anemia (Chronic) Non-Hodgkin lymphoma (Chronic) History of pulmonary embolism (Chronic) Colostomy status (Chronic) Collagenous colitis (Chronic) Factor V Leiden (Chronic) Anemia in chronic kidney disease (Chronic) Follicular lymphoma (Chronic) Acquired hypothyroidism (Chronic) Medical History: Medical History (Last Reviewed 05/01/19 @ 14:09 by Marilu Pierre) Anemia D64.9 Clotting disorder D68.[address] Z93.3 Kidney disease N28.9 Pulmonary embolism I26.99 Allergies bee venom protein (honey bee) Allergy (Severe, Verified 09/10/19 14:25) Anaphylaxis niacin Allergy (Severe, Verified 09/10/19 14:25) Anaphylaxis swelling of face and throat Home Medications: Ambulatory Orders Medication Instructions Recorded Citalopram [Celexa] 20 mg PO DAILY 04/24/17 Cholecalciferol (VIT D3) [Vitamin 3,000 unit PO DAILY 06/21/17 D3] Iron Polysaccharide Complex 150 mg PO DAILYCM 06/21/17 [Ferrex 150] Magnesium Oxide [Mag-Ox 400] 400 mg PO DAILY 06/26/17 Apixaban [Eliquis] 5 mg PO BID #74 tab 06/30/18 Solifenacin Succinate [Vesicare] 10 mg PO DAILY 01/14/19 Bupropion HCl [Wellbutrin Xl] 150 mg PO DAILY 09/10/19 Cyanocobalamin (Vitamin B-12) 2,500 mcg PO DAILY 09/10/19 [Vitamin B12] Denosumab [Prolia] 60 mg IM UD 09/10/19 Levothyroxine Sodium 100 mcg PO DAILY 09/10/19 Potassium (Otc) [Potassium Otc] 99 mg PO DAILY 09/10/19 Surgical History: Surgical History (Last Reviewed 05/01/19 @ 14:09 by Marilu Pierre) History of bowel resection Z98.890, Z90.49 History of hernia repair Z98.890, Z87.19 History of kyphoplasty Z98.890 Surgical History: appendectomy, colectomy - In October 2004 she underwent a distal transverse loop colostomy. This was done secondary to thickening of the rectum and sigmoid area. She also underwent an appendectomy at the same time., - - Left chest port placement. Right arm fistula. 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 Denies: Chills, Fever, Weight Change HEENT: Denies: Head Aches, Sinus Congestion, Sinus Drainage Cardiovascular: Reports: Light Headedness. Denies: Chest Pain, Edema, Palpitations, Syncope Respiratory: Reports: Shortness of breath upon exertion. Denies: Cough, Sh ortness of breath at rest, Sputum production Gastrointestinal: Denies: Abdominal Pain, Diarrhea, Nausea, Vomiting Genitourinary: Denies: Dysuria, Retention, Urgency Musculoskeletal: Denies: Joint Pain, Joint Tenderness Skin: Denies: Lesions, Rash, Wounds Neurological: Denies: Numbness, Tingling, Focal weakness Psychiatric: Denies: Anxiety, Depression, Homicidal Ideations, Suicidal Ideations Hematologic/ Lymphatic: Denies: Easy Bruising, Easy Bleeding VTE Information - Inpt Only VTE Present on Admission: No VTE Mechan Device Prophylaxis: None VTE Pharm Prophylaxis ordered?: Yes Patient Problems: Active and Suspected Problems (Last Reviewed 05/01/19 @ 14:09 by Marilu Pierre) Pancytopenia (Acute) - Physical Exam Vitals/I&O's: Vital Signs Temp Pulse Resp BP Pulse Ox 97.6 F L 85 20 H 120/67 96 09/10/19 14:25 09/10/19 17:34 09/10/19 17:34 09/10/19 17:34 09/10/19 17:34 Oxygen Delivery Method Room Air Weight: 120 lb Body Mass Index (BMI) 20.5 Intake and Output for Last 24 Hours 09/08/19 09/09/19 09/10/19 23:59 23:59 23:59 Intake Total 500 / 500 Balance 500 / 500 General: Alert, Oriented x3, Cooperative HEENT: Atraumatic, PERRLA, EOMI, Normocephalic Neck: Supple, No JVD, Negative Carotid Bruits Lungs: Clear to auscultation, Normal air movement Cardiovascular: Regular rate, No murmurs Abdomen: Bowel Sounds Present, Soft, Non Tender Extremities: No edema, Capillary Refill Less than 3 Seconds Skin: No rashes, No breakdown Musculoskeletal: No Tenderness to Palpation of Joints or Extremities Neurological: Cranial nerves II-XII grossly intact Psych/Mental Status: Normal Affect, Appropriate Laboratory Results 09/10/19 15:45: WBC 2.5 L, RBC 2.55 L, Hgb 7.9 L, Hct 23.8 L, MCV 93.3, MCH 31.0, MCHC 33.2, RDW Std Deviation 46.0 H, RDW Coeff of Chantelle 13.7, Plt Count 15 L*, MPV 10.6, Neut % (Auto) Not Reportable, Absolute Neuts (auto) 0.4 L, Absolute Lymphs (auto) 1.90, Total Counted 100, Neutrophils % (Manual) 13 L, Band Neutrophils % 1, Lymphocytes % (Manual) 76 H*, Monocytes % (Manual) 9, Eosinophils % (Manual) 1, Diff Path Review May foll, Atypical Lymphocytes 1+, Platelet Estimate MKD DEC, RBC Morphology N CHROM, Ovalocytes 1+ 09/10/19 15:45: PT 16.0 H, INR 1.3, APTT 30.1 09/10/19 15:45: Sodium 133 L, Potassium 3.8, Chloride 106, Carbon Dioxide 19.0 L , Anion Gap 8, BUN 63 H, Creatinine 3.29 H, Estim Creat Clear Calc 11.33, Est GFR (MDRD) Af Amer 17 L, Est GFR (MDRD) Non-Af 14 L, BUN/Creatinine Ratio 19.1, Glucose 89, Calcium 7.6 L, Total Bilirubin 0.20, AST 11 L, ALT 11 L, Alkaline Phosphatase 49, Total Protein 7.2, Albumin 2.9 L, Globulin 4.3 H, Albumin/Globulin Ratio 0.7 L 09/10/19 15:45: Blood Type A POSITIVE, Antibody Screen NEGATIVE 09/10/19 15:45: Uric Acid 9.2 H, Lactate Dehydrogenase 240 Current Medications Sodium Chloride () 1,000 mls @ 100 mls/hr IV .Q10H IVAN Last Admin: 09/10/19 17:33 Dose: 100 mls/hr Documented by: Assessment/Plan All Active Problems (Last Reviewed 05/01/19 @ 14:09 by Marilu Pierre) Pancytopenia (Acute) SOB (shortness of breath) (Resolved) SBO (small bowel obstruction) (Acute) Peristomal hernia (Acute) Partial obstruction of small intestine (Acute) Abdominal pain (Acute) Gastroduodenitis (Resolved) 1. Pancytopenia - consult Dr. Young as he has followed her with her hx of NHL. Hx factor V. Called lab - a couple shistocytes under microscope. LFTs normal. LDH normal. Uric acid elevated. RDW elevated. Lymphocytes elevated, 1% bands, abs neuts 0.4. MCV normal. Check TSH. Symptomatic anemia with SOB on exertion, fatigue, and LH on standing. Check orthos. 2. SANG - decreased PO intake. Elevated BUN/Cr. Provide IV fluids. Mild hyponatremia. 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 4. Hypothyroidism - continue synthroid - check tsh. DVT ppx: eliquis This patient was seen by Ashok Campbell PA-C under the supervision of Dr. Conroy. <MarycarmenRenea Maravilla - Last Filed: 09/10/19 20:40> History of Present Illness The patient is a 83 year old F [] Past Medical History Medical History: Medical History (Last Reviewed 05/01/19 @ 14:09 by Marilu Pierre) Anemia D64.9 Clotting disorder D68.[address] Z93.3 Kidney disease N28.9 Pulmonary embolism I26.99 Allergies bee venom protein (honey bee) Allergy (Severe, Verified 09/10/19 14:25) Anaphylaxis niacin Allergy (Severe, Verified 09/10/19 14:25) Anaphylaxis swelling of face and throat Surgical History: Surgical History (Last Reviewed 05/01/19 @ 14:09 by Marilu Pierre) History of bowel resection Z98.890, Z90.49 History of hernia repair Z98.890, Z87.19 History of kyphoplasty Z98.890 - *Family History Paternal Family History: Family History (Last Reviewed 09/10/19 @ 17:52 by MAXIMUS Brown) Father FH: colon cancer Mother Diabetes Sister Diabetes Brother Diabetes Maternal Family History: Family History (Last Reviewed 09/10/19 @ 17:52 by MAXIMUS Brown) Father FH: colon cancer Mother Diabetes Sister Diabetes Brother Diabetes - Physical Exam Vitals/I&O's: Vital Signs Temp Pulse Resp BP Pulse Ox 97.6 F L 84 20 H 120/67 97 09/10/19 14:25 09/10/19 18:14 09/10/19 18:14 09/10/19 18:14 09/10/19 18:14 Oxygen Delivery Method Room Air Weight: 120 lb Body Mass Index (BMI) 20.5 Intake and Output for Last 24 Hours 09/08/19 09/09/19 09/10/19 23:59 23:59 23:59 Intake Total 500 / 500 Balance 500 / 500 Laboratory Results 09/10/19 15:45: WBC 2.5 L, RBC 2.55 L, Hgb 7.9 L, Hct 23.8 L, MCV 93.3, MCH 31.0, MCHC 33.2, RDW Std Deviation 46.0 H, RDW Coeff of Chantelle 13.7, Plt Count 15 L*, MPV 10.6, Neut % (Auto) Not Reportable, Absolute Neuts (auto) 0.4 L, Absolute Lymphs (auto) 1.90, Total Counted 100, Neutrophils % (Manual) 13 L, Band Neutrophils % 1, Lymphocytes % (Manual) 76 H*, Monocytes % (Manual) 9, Eosinophils % (Manual) 1, Diff Path Review May foll, Atypical Lymphocytes 1+, Platelet Estimate MKD DEC, RBC Morphology N CHROM, Ovalocytes 1+ 09/10/19 15:45: PT 16.0 H, INR 1.3, APTT 30.1 09/10/19 15:45: Sodium 133 L, Potassium 3.8, Chloride 106, Carbon Dioxide 19.0 L , Anion Gap 8, BUN 63 H, Creatinine 3.29 H, Estim Creat Clear Calc 11.33, Est GFR (MDRD) Af Amer 17 L, Est GFR (MDRD) Non-Af 14 L, BUN/Creatinine Ratio 19.1, Glucose 89, Calcium 7.6 L, Total Bilirubin 0.20, AST 11 L, ALT 11 L, Alkaline Phosphatase 49, Total Protein 7.2, Albumin 2.9 L, Globulin 4.3 H, Albumin/Globulin Ratio 0.7 L 09/10/19 15:45: Blood Type A POSITIVE, Antibody Screen NEGATIVE 09/10/19 15:45: Uric Acid 9.2 H, Lactate Dehydrogenase 240 09/10/19 18:11: Urine Color Straw, Urine Clarity Cloudy, Urine pH 6.0, Ur Specific [place] 1.010, Urine Protein 15 H, Urine Glucose (UA) Normal, Urine Ketones Negative, Urine Occult Blood 150 H, Urine Nitrite Positive H, Urine Bilirubin Negative, Urine Urobilinogen Normal, Ur Leukocyte Esterase 500 H, Urine RBC 0-5 SEEN, Urine WBC 25-50 SEEN, Ur Squamous Epith Cells 0 SEEN, Ur Transition Epith Cell 0-5 SEEN, Urine Bacteria 3+, Fine Granular Casts 0-5 SEEN, Urine Mucus 0 SEEN Current Medications Sodium Chloride () 1,000 mls @ 100 mls/hr IV .Q10H IVAN Last Admin: 09/10/19 17:33 Dose: 100 mls/hr Documented by: Assessment/Plan Patient seen by Ashok Campbell PA-C under my supervision Patient is a pleasant 83-year-old female with a past medical history of lymphoma status post chemotherapy and she has been in remission.She also has a history of DVT and PE due to factor 5 Leiden deficiency. She was admitted through the ED on 09/10/2019 on account of abnormal labs. Patient has complained of feeling weak and easily fatigued over the last month. She denied any lightheadedness or dizziness, weight loss, chest pain, abdominal pain, diarrhea vomiting. She followed up with her PCP and labs were requested 1 day prior to admission. Based on the results of the labs, her PCP called her today and asked her to report to the ED. On arrival in the ED, vitals were stable for pulse rate of 92 with respiratory of 16. Chemistry showed sodium of 133 and bicarb of 19 with creatinine of 3.29. Uric acid was elevated at 9.2 and calcium was 7.6 with AST and ALT of 11. LDH was 240. CBC showed white cell count of 2.5 with hemoglobin of 7.9 and platelets of 15. Chest x-ray showed no acute cardiopulmonary process. Per ED doctor, he discussed case with patient's oncologist Dr. De La Cruz who requested that patient should not be transfused with platelets as he thought to that his symptoms were likely due to a recurrence of her lymphoma. Of note, even though her white cell count was down to 2.5, it was lymphocytic predominant with 76% lymphocytes. She is therefore been admitted to be managed for pancytopenia. o/e: Vital Signs Height 5 ft 4 in Weight: 128 lb Weight in Pounds 128.0 lbs Pulse Ox 92 Temperature 97.3 F Pulse Rate 92 Respiratory Rate 16 Blood Pressure 117/71 Blood Pressure Position Semi-Fowlers General: Alert, Oriented x3, Cooperative HEENT: Atraumatic, PERRLA, EOMI, Normocephalic Neck: Supple, No JVD, Negative Carotid Bruits Lungs: Clear to auscultation, Normal air movement Cardiovascular: Regular rate, No murmurs Abdomen: Bowel Sounds Present, Soft, Non Tender, has colostomy bag in place Extremities: No edema, Capillary Refill Less than 3 Seconds Skin: No rashes, No breakdown Musculoskeletal: No Tenderness to Palpation of Joints or Extremities Neurological: Cranial nerves II-XII grossly intact Psych/Mental Status: Normal Affect, Appropriate, Alert and oriented to time, place, person, mood and affect Plan is to admit to Med Surg and manage for pancytopenia, in a patient with history of diffuse large B cell lymphoma. She was diagnosed in 2003, and had 6 cycles of chemothrapy, completed in September 2004. However it recurred in 2010 and she had chemotherapy and was on Rituxan maintenance from 2011- 2012. Patient is on Eliquis, and with a history of factor V Leiden deficiency and pulmonary artery saddle embolus as well as DVT, she is at very high risk of DVT and PE. We will therefore continue Eliquis for now as she has no evidence of bleeding. Lab called to review patient's lites and she did have a few schistocytes. She does have impaired kidney function but this is chronic as she has chronic CKD and had a fistula put in but she never required dialysis. Creatinine is 3.29 and she has a baseline of around 2-3 with creatinine being as high as 3.83 in May 2017. WBC is 2.5 and was 6.4 in just May 2019. Hemoglobin is 7.9 and back in July was 9.9. Platelets are down to 15 and they were 170 in May 2019. Patient has no neurologic deficits, and no worsening of her kidney disease. She does have elevated uric acid which supports a diagnosis of lymphoma. Urgent hematology consult placed- I discussed case with Dr Young , and per discussion, considering the presence of schistocytes, though few, we cannot rule out the probability of TTP, considering the acuity of the pancytopenia. Urinalysis showed occult blood of 150, with positive occult blood and rbc 0-5, Based on discussion with Dr Young, she can deteriorate very quickly. Will therefore transfer to tertiary facility. 09/10/2019 @ 8:31pm I discussed patient with Dr Grimes, accounts receivable supervisor at [facility]. After discussing the case extensively, Dr Grimes stated that he didnt think it was likely to be TTP as patient had no elevated LDH or bilirubin, and as TTP is a hemolytic process, if these were not present, she didnt have TTP. He felt patient needed a bone marrow biopsy as symptoms were likely due to recurrence of her lymphoma, and he also thought she had reduced options for treatment due to her advanced age and comorbid conditions such as CKD 3; Dr Grimes therefore said he would not accept patient for transfer to [facility]. Dr Young also discussed the case with Dr Grimes on phone, and per their discussion, patient will not be accepted at [facility] for transfer. I discussed with Dr Young if patient should be transferred to another tertiary facility; he is ok with patient staying in [facility] overnight, patient to be monitored closely. To have a bone marrow biopsy to evaluate for recurrence of lymphoma. continue to hold eliquis. If patient deteriorates, to have low threshold for transferring to a tertiary facility. CODE STATUS: Full code * Patient counseled extensively about different types of CODE STATUS including full code, DNR CCA and DNR CCA. Patient elects to be full code. Total [id number] time 17 minutes. Code Visit Inpatient E&M: 52255 Init Hosp L3 Procedures: 42005 Advncd Care Plan 30 Min
[2019-09-10 18:19] LABS: Mucous, Urine 0 SEEN /hpf (<or=2+); Squamous Epithelial Cells - UA 0 SEEN /hpf (5-10)
[2019-09-10 18:30] LABS: Color, Urine Straw (Yellow); Glucose, Dipstick Normal (Normal); Ketone-Dipstick Negative (Negative); Leukocyte Esterase-Dipstick 500 /ul (Negative); Nitrite-Dipstick Positive (Negative); Occult Blood-Urine 150 /ul (Negative); Protein-Dipstick 15 mg/dl (Negative); Urine Bilirubin Dipstick Negative (Negative); Urine Clarity Cloudy (Clear); Urine Urobilinogen Normal (Normal)
[2019-09-10 18:45] LABS: Fine Granular Cast- Urine 0-5 SEEN /lpf (0-5)
[2019-09-10 18:46] LABS: Transitional Epithelial - Ur 0-5 SEEN /hpf (0-5)
[2019-09-10 18:47] LABS: Bacteria 3+ /hpf (None Seen); Red Blood Cells-Urine 0-5 SEEN /hpf (0-5); White Blood Cells 25-50 SEEN /hpf (0-5)
[2019-09-10 22:55] LABS: Bedside Glucose 97 mg/dL (70-110)
[2019-09-11] VITALS (22 sets, daily range): BP systolic 94–145; BP diastolic 44–76; PULSE 76–95; RESP 16–20; TEMP 36.4–37.1; O2SAT 97–100
--- NOTE | 2019-09-11 | IMM_PTH ---
PATIENT: EILEEN DUENAS LOC: MS3 U#:[id number] AGE/SX: 83/F ROOM: MS310 RE09/10/[address]: Dr. Damien Blackman MD : 1935 BED: 1 DIS: 09/13/2019 SPEC #: [id number] RECD: 09/16/19 12:55 STATUS: SOUT REQ #: [id number] KATY: 09/11/19 00:[address]: Keaton Young DEPT: IMMUNOHISTOCHEMISTRY RECD BY: Bridgette Do ENTERED: 09/16/19 12:56 SP TYPE: IMMUNO OTHR DR: MD Dr. Anya Alfaro DO Dr. Nana Yaa Koram, MD Dr. Prakash Chand, MD Tissues: A - Bone marrow of iliac crest Procedures: BCL-2 (add) CD20 (add) CD30 (add) CD34 (add) CD45 (add) CD5 (add) CD56 (add) CD79A (add) MPO (add) CD3 (initial) Comments: @ Ordering doctor for CD3 edited from to @ by RGOJEREL at 09/16/19 1257 @ Ordering doctor for BCL2. edited from to DR.JPRAH Quintana by RGOJEREL at 09/16/19 1257 @ Ordering doctor for CD20. edited from to DR.JPRAH Quintana by RAEANN at 09/16/19 1257 @ Ordering doctor for CD30. edited from to DR.JPRAH Quintana by RAEANN at 09/16/19 1257 @ Ordering doctor for CD34. edited from to DR.JPRAH Quintana by RAEANN at 09/16/19 1257 @ Ordering doctor for CD45. edited from to DR.JPRAH Quintana by RGOOD at 09/16/19 1257 @ Ordering doctor for CD5. edited from to DR.JPRAH Quintana by RAEANN at 09/16/19 1257 @ Ordering doctor for CD56. edited from to DR.JPRAH Quintana by RAEANN at 09/16/19 1257 @ Ordering doctor for CD79A. edited from to DR.JPRAH Quintana by RAEANN at 09/16/19 1257 @ Ordering doctor for MPO. edited from to DR.JPRAH Quintana by RAEANN at 09/16/19 1257 @ Submitting doctor edited from to DR.JPRAH Quintana by RAEANN at 09/16/19 1257 PHYSICIAN & [place] [id number] SPECIMEN INFORMATION: Tissue Source: A - Bone marrow biopsy, core Clinical Info: Pancytopenia, history of NHL Specimen Number: [id number] CPT code: 85329, 82018 x9 METHODOLOGY: Deparaffinized sections of prefer/formalin-fixed tissue or PAP/DQ stained slides are incubated with monoclonal/polyclonal antibodies/oligonucleotide probes. Localization is made via biotin free immunoperoxidase method. Appropriate controls are performed and reacted as expected. Results on target cell population are indicated in the following table: RESULTS: ANTIBODY / CLONE RESULT Block A CD3 (PS1) negative CD5 (SP10) negative CD20 (L26) negative CD45 (RP2/18) negative CD79a (11E3) negative CD30 (Royal-H2) negative BCL-2 (bcl-2/100/D5) negative MPO (polyclonal) positive CD34 (QBEnd-10) negative CD56 (123C3.D5) positive These tests were developed and their performance characteristics determined by [facility]. They may not have been cleared or approved by the U.S. Food and Drug Administration. The FDA has determined that such clearance or approval is not necessary. The above immunohistochemical/dualISH markers are ordered and reviewed by the Pathologist. INTERPRETATION: A. Bone marrow biopsy, core: Increased mononuclear cells consistent with blasts. AM:lianne 09/17/19
[2019-09-11] MEDS: 0.9% Normal Saline 1,000 ML 100 ML IV ×2 (04:33→22:00)
[2019-09-11] MEDS: Levothyroxine 100 MCG Tablet PO (05:13)
[2019-09-11] MEDS: 0.9% Saline Lock 10 ML Syringe IV ×3 (06:27→14:59)
[2019-09-11 06:44] LABS: Hematocrit 19.8 % (37-47); Hemoglobin 6.6 g/dL (12.0-15.0); Mean Corp Hgb Conc 33.3 g/dL (32-36); Mean Corpuscular Hgb 31.3 pg (27.0-32.0); Mean Corpuscular Volume 93.8 fL (81-99); Mean Platelet Vol. 10.2 fl (6.2-12.0); POSITIVE COUNT YES; POSITIVE DIFFERENTIAL YES; POSITIVE MORPHOLOGY YES; RBC Distribution Width CV 13.6 % (11.6-14.6); RBC Distribution Width SD 46.6 fl (35.1-43.9); Red Blood Count 2.11 M/mm3 (4.2-5.4); White Blood Count 2.1 K/mm3 (4.4-11.0)
[2019-09-11 06:45] LABS: Bedside Glucose 81 mg/dL (70-110)
[2019-09-11 06:48] LABS: Differential Indicated MANUAL DIFF; Platelet Count 12 K/mm3 (150-450)
[2019-09-11 07:13] LABS: Lymphocyte 26 % (19-41); Metamyelocyte 10 % (0-1); Monocyte 3 % (0-10); Neutrophil-Band 1 % (0-5); Neutrophil-Segmented 10 % (47-70); Total Cells Counted 50 (MANUAL DIFF)
[2019-09-11 07:14] LABS: Anisocytosis 1+; Ovalocyte RARE; Platelet Estimate MKD DEC (ADEQ)
[2019-09-11 07:15] LABS: Neutrophil # 0.45 X10^3/uL (2.7-7.7)
[2019-09-11 07:16] LABS: Absolute Lymphocyte Count 1.07 X10^3/uL (0.83-4.51); Absolute Neutrophil Count 0.5 X10^3/uL (2.0-7.7); Lymphocyte # 1.07 X10^3/ul (4.0); Monocyte# 0.12 X10^3/uL
[2019-09-11] MEDS: Ceftriaxone 1 GM/50 ML BAG IV (07:36)
[2019-09-11 08:11] LABS: Anion Gap 7 (5-15); BUN 52 mg/dL (7-18); BUN/Creat Ratio 17.3 RATIO (10-20); Calcium,Total 6.7 mg/dL (8.5-10.1); Chloride 114 mmol/L (98-107); EST Glomerular Filtration Rate 16 mL/min (>60); Est Glom Filt Rate - Afr Amer 19 mL/min (>60); Estimated Creatinine Clearance 12.48 ml/min; Glucose 82 mg/dL (74-106); Potassium 4.2 mmol/L (3.5-5.1); Sodium Level 139 mmol/L (136-145)
[2019-09-11] MEDS: Tolterodine Tartrate 4 MG CAP.SA PO (09:18)
[2019-09-11] MEDS: Magnesium Oxide 400 MG Tablet PO (09:18)
[2019-09-11] MEDS: Cyanocobalamin 500 MCG Tablet 2500 MCG PO (09:18)
[2019-09-11] MEDS: Iron Polysaccharide Complex 150 MG CAPSULE PO (09:18)
[2019-09-11] MEDS: Citalopram 20 MG Tablet PO (09:18)
[2019-09-11] MEDS: buPROPion (XL) 150 MG TABLET.XL PO (09:19)
--- NOTE | 2019-09-11 10:06 | PN_ITS ---
Patient Problems: Active and Suspected Problems (Last Reviewed 05/01/19 @ 14:09 by Marilu Pierre) Pancytopenia (Acute) Vitals/I&O's: Vital Signs Temp Pulse Resp BP Pulse Ox 98.3 F 84 18 114/57 L 100 09/11/19 10:03 09/11/19 10:03 09/11/19 10:03 09/11/19 10:03 09/11/19 10:03 Oxygen Delivery Method Room Air Weight: 128 lb Body Mass Index (BMI) 21.9 Intake and Output for Last 24 Hours 09/09/19 09/10/19 09/11/19 23:59 23:59 23:59 Intake Total 500 / 500 1653.33 / 1653.33 Balance 500 / 500 1653.33 / 1653.33 Laboratory Results 09/10/19 15:45: WBC 2.5 L, RBC 2.55 L, Hgb 7.9 L, Hct 23.8 L, MCV 93.3, MCH 31.0, MCHC 33.2, RDW Std Deviation 46.0 H, RDW Coeff of Chantelle 13.7, Plt Count 15 L*, MPV 10.6, Neut % (Auto) Not Reportable, Absolute Neuts (auto) 0.4 L, Absolute Lymphs (auto) 1.90, Total Counted 100, Neutrophils % (Manual) 13 L, Band Neutrophils % 1, Lymphocytes % (Manual) 76 H*, Monocytes % (Manual) 9, Eosinophils % (Manual) 1, Diff Path Review November, Atypical Lymphocytes 1+, Platelet Estimate MKD DEC, RBC Morphology N CHROM, Ovalocytes 1+ 09/10/19 15:45: PT 16.0 H, INR 1.3, APTT 30.1 09/10/19 15:45: Sodium 133 L, Potassium 3.8, Chloride 106, Carbon Dioxide 19.0 L , Anion Gap 8, BUN 63 H, Creatinine 3.29 H, Estim Creat Clear Calc 11.33, Est GFR (MDRD) Af Amer 17 L, Est GFR (MDRD) Non-Af 14 L, BUN/Creatinine Ratio 19.1, Glucose 89, Calcium 7.6 L, Total Bilirubin 0.20, AST 11 L, ALT 11 L, Alkaline Phosphatase 49, Total Protein 7.2, Albumin 2.9 L, Globulin 4.3 H, Albumin/Globulin Ratio 0.7 L 09/10/19 15:45: Blood Type A POSITIVE, Antibody Screen NEGATIVE 09/10/19 15:45: Uric Acid 9.2 H, Lactate Dehydrogenase 240 09/10/19 15:45: Crossmatch See Detail 09/10/19 18:11: Urine Color Straw, Urine Clarity Cloudy, Urine pH 6.0, Ur Specific [place] 1.010, Urine Protein 15 H, Urine Glucose (UA) Normal, Urine Ketones Negative, Urine Occult Blood 150 H, Urine Nitrite Positive H, Urine Bilirubin Negative, Urine Urobilinogen Normal, Ur Leukocyte Esterase 500 H, Urine RBC 0-5 SEEN, Urine WBC 25-50 SEEN, Ur Squamous Epith Cells 0 SEEN, Ur Transition Epith Cell 0-5 SEEN, Urine Bacteria 3+, Fine Granular Casts 0-5 SEEN, Urine Mucus 0 SEEN 09/10/19 22:50: POC Glucose 97 09/11/19 06:25: WBC 2.1 L, RBC 2.11 L, Hgb 6.6 L, Hct 19.8 L, MCV 93.8, MCH 31.3, MCHC 33.3, RDW Std Deviation 46.6 H, RDW Coeff of Chantelle 13.6, Plt Count 12 L*, MPV 10.2, Neut % (Auto) Not Reportable, Absolute Neuts (auto) 0.5 L, Absolute Lymphs (auto) 1.07, Total Counted 50, Neutrophils % (Manual) 10 L, Band Neutrophils % 1, Lymphocytes % (Manual) 26, Monocytes % (Manual) 3, Metamyelocytes % 10 H, Diff Path Review May foll, Platelet Estimate MKD DEC, Anisocytosis 1+, Ovalocytes RARE 09/11/19 06:25: Sodium Cancelled, Potassium Cancelled, Chloride Cancelled, Carbon Dioxide Cancelled, Anion Gap Cancelled, BUN Cancelled, Creatinine Cancelled, Estim Creat Clear Calc Cancelled, Est GFR (MDRD) Af Amer Cancelled, Est GFR (MDRD) Non-Af Cancelled, BUN/Creatinine Ratio Cancelled, Glucose Cancelled, Calcium Cancelled 09/11/19 06:41: POC Glucose 81 09/11/19 07:46: Sodium 139, Potassium 4.2, Chloride 114 H, Carbon Dioxide 18.0 L , Anion Gap 7, BUN 52 H, Creatinine 3.00 H, Estim Creat Clear Calc 12.48, Est GFR (MDRD) Af Amer 19 L, Est GFR (MDRD) Non-Af 16 L, BUN/Creatinine Ratio 17.3, Glucose 82, Calcium 6.7 L Current Medications Bupropion HCl (Wellbutrin Xl) 150 mg PO DAILY [facility] Last Admin: 09/11/19 09:19 Dose: 150 mg Documented by: Cholecalciferol (Vitamin D) 3,000 unit PO DAILY [facility] Last Admin: 09/11/19 09:19 Dose: 3,000 unit Documented by: Citalopram Hydrobromide (Celexa) 20 mg PO DAILY [facility] Last Admin: 09/11/19 09:18 Dose: 20 mg Documented by: Cyanocobalamin (Vitamin B12) 2,500 mcg PO DAILY [facility] Last Admin: 09/11/19 09:18 Dose: 2,500 mcg Documented by: Glucagon () 1 mg IM .X1 PRN PRN Reason: Hypoglycemia Sodium Chloride () 1,000 mls @ 100 mls/hr IV .Q10H [facility] Last Infusion: 09/11/19 08:06 Dose: 100 mls/hr Documented by: Sodium Chloride () 250 mls @ 15 mls/hr IV .[id number] PRN PRN Reason: Saline Flush Sodium Chloride () 250 mls @ 15 mls/hr IV .[id number] PRN PRN Reason: Additional IVPB Infusion Dextrose (Dextrose 10%-Water) 250 mls @ 999 mls/hr IV .Q16M PRN; Protocol PRN Reason: HYPOGLYCEMIA Ceftriaxone Sodium (Rocephin) 1 gm in 50 mls @ 100 mls/hr IV Q24 [facility] Last Infusion: 09/11/19 08:06 Dose: Infused Documented by: Levothyroxine Sodium (Synthroid) 100 mcg PO DAILY@0600 [facility] Last Admin: 09/11/19 05:13 Dose: 100 mcg Documented by: Magnesium Oxide (Mag-Ox 400) 400 mg PO DAILY [facility] Last Admin: 09/11/19 09:18 Dose: 400 mg Documented by: Polysaccharide Iron Complex (Ferrex 150) 150 mg PO DAILYCM [facility] Last Admin: 09/11/19 09:18 Dose: 150 mg Documented by: Sodium Chloride () 10 - 40 ml IV UD PRN PRN Reason: Port-a-Cath (VAD) Flush Last Admin: 09/11/19 06:27 Dose: 30 ml Documented by: Tolterodine Tartrate (Detrol La) 4 mg PO DAILY [facility] Last Admin: 09/11/19 09:18 Dose: 4 mg Documented by: STROKE Vital Signs/Narrative: Vital Signs Temp Pulse Resp BP Pulse Ox 09/11/19 10:03 98.3 F 84 18 114/57 L 100 09/11/19 08:30 98.4 F 80 16 95/55 L 98 09/11/19 08:17 97 Medical Necessity - Tobacco Use Smoking Status: Never smoker Tobacco Use: Secondhand Assessment/Plan All Active Problems (Last Reviewed 05/01/19 @ 14:09 by Marilu Pierre) Pancytopenia (Acute) SOB (shortness of breath) (Resolved) SBO (small bowel obstruction) (Acute) Peristomal hernia (Acute) Partial obstruction of small intestine (Acute) Abdominal pain (Acute) Gastroduodenitis (Resolved) Discussed with Dr. Young. He talked with Dr. Dozier for bone marrow biopsy. He also recommended iron work-up, B12, folic acid, hemolytic anemia work-up, fibrinogen and FDP and stool for occult blood.
[2019-09-11 10:36] LABS: Immature Platelet Fraction 1.4 % (1.0-7.9); Platelet Count 11 K/mm3 (150-450); RET-HE 36.6 pg (30-35)
[2019-09-11 10:49] LABS: Fibrinogen 386 mg/dl (203-444)
[2019-09-11 10:53] LABS: Vitamin B12 > 2000 pg/mL (211-911)
--- NOTE | 2019-09-11 10:53 | CASEMGMT ---
RN CM Assessment Note Presentation: Pancytopenia Intro role of CM and purpose of RN CM assessment to patient. She is awake, alert and able to participate in assessment. Demographics, PCP and Pharmacy verified. Pt states she lives in own home, grandson and his live in basement. If needed, grandson is able to assist pt. Pt states she is generally independent, but recently is feeling weak due to anemia. Discussed PT/OT to work with pt, and if needed, CM can discuss HHC or short term SNF for rehab with pt. Preference is to return home. PCP: Dr. Lua Specialists: Dr. Young, oncology; Dr. Gallagher, nephrology Preferred Pharmacy: [facility] Insurance: [facility] Prescription Benefit: yes LNOK: Son, Keaton Tierney Living Arrangements: Lives in one story home. States is independent with ADL's. Family does grocery shopping; patient does own cooking, cleaning, though increased difficulty with home care. Transportation: pt drives, but family can assist. DME: cane HHC/SNF: none in past. Patient DC goals: Home DC PLAN: Home. PT/OT evaluations pending. Jose Ramon GERARDO RN ACM
[2019-09-11 10:59] LABS: D-Dimer Quantitative (DVT/PE) 2.31 FEU/ug/m (0.27-0.49)
[2019-09-11 11:02] LABS: Ferritin 622 ng/mL (8-252); Iron 89 ug/dL (50-170); Iron Binding Capacity,Total 127 ug/dL (250-450); LDH 198 U/L (84-246); PERCENT IRON SATURATION 70.1 % (15.0-55.0)
--- NOTE | 2019-09-11 11:17 | BMB_PTH ---
PATIENT: EILEEN DUENAS LOC: MS3 U#:[id number] AGE/SX: 83/F ROOM: MS310 RE09/10/[address]: Dr. Damien Blackman MD : 1935 BED: 1 DIS: 09/13/2019 SPEC #: [id number] RECD: 09/11/19 14:00 STATUS: LUCY REQ #: [id number] KATY: 09/11/19 11:[address]: Keaton Young DEPT: BONE MARROW RECD BY: Dima Browning ENTERED: 09/12/19 11:15 SP TYPE: BMB OTHR DR: MD Dr. Keaton Alfaro MD Dr. Kathleen Fearon, DO Dr. Nana Yaa Koram, MD Dr. Prakash Chand, MD Tissues: A - Bone marrow, NOS B - Bone marrow, NOS C - Bone marrow, NOS Procedures: Decalcification bone/plaque Bone Marrow Aspiration Bone Marrow Core Biopsy Iron Stain Bone Marrow Comments: @ Ordering doctor for DEC edited from to @ by RAEANN at 09/12/19 1308 @ Ordering doctor for BMA edited from to DR.JPRAH Quintana by RAEANN at 09/12/19 1308 @ Ordering doctor for BMCB edited from to DR.JPRAH Lilian CARY at 09/12/19 1308 @ Ordering doctor for FEBM edited from to DR.JPRAH Quintana by RAEANN at 09/12/19 1308 @ Submitting doctor edited from to DR.JPRAH Lilian CARY at 09/12/19 1308 HEADER OPERATION: Bone marrow biopsy and aspiration PRE-OP DIAGNOSIS: New onset pancytopenia, history of NHL TISSUE SUBMITTED: A - Core, B - Clot, C - Smears, and send outs (flow, cytogenetics, AML and MDS FISH) BONE MARROW DIAGNOSIS Bone marrow biopsy, clot and aspiration: Consistent with acute myeloid leukemia with monocytic component Peripheral pancytopenia with circulating blasts. See comment. AM:lianne 09/17/19 COMMENT Flow cytometry analysis reveals a 20% myeloid blast population with 68% monocytic component consistent with acute myeloid leukemia. Please see complete report in patient's EMR. Immunohistochemistry ([id number]) supports the above diagnosis. Case has been reviewed in consultation with Dr. Nye who concurs with the above diagnosis. IDC:SJ BONE MARROW STUDY Slides are reviewed. CBC DATE: 09/11/19 WBC 1.5; RBC 2.14; HGB 6.7; HCT 19.8; MCV 92.5; RDW 47.7; PLTS 8000 SEGS 11%; LYMPHS 71%; MONOS 11%; EOS 1% PERIPHERAL SMEAR: Submitted. RBC: Normocytic anemia with anisopoikilocytosis WBC: Neutropenia with occasional circulating blasts PLTS: Marked thrombocytopenia. BONE MARROW ASPIRATE DIFFERENTIAL: Markedly hemodilute and aspicular with increased blasts and immature granulocytes. ASPIRATE FINDINGS: Site: Left hip Aspicular Hypocellular M/E ratio: Increased (Normal 1.5 - 4.0) Megakaryocytes: Rare micromegakaryocyte and hypolobated forms. Erythropoiesis: Normoblastic Granulopoiesis: Maturation arrest and increased blasts consistent with acute myeloid leukemia. CORE BIOPSY FINDINGS: Site: Left hip Adequacy: Small biopsy Cellularity %: 5-10% M/E ratio: Increased Megakaryocytes: Rare micromegakaryocyte present. Bony trabeculae: Within normal limits Granulomas: 0 Lymphoid aggregate(s): 0 Atypical infiltrate(s): Increased mononuclear cells consistent with blasts (approximately 15-20%) ASPIRATE CLOT FINDINGS: Site: Left hip Marrow Particles: Rare Cellularity %: 5-10% M/E ratio: Increased Megakaryocytes: None identified Granuloma(s): 0 Lymphoid aggregate(s): 0 Atypical infiltrate(s): 0 Comment: Granulocytic maturation arrest. SPECIAL STAINS (with matched controls): Iron: No stainable iron identified. Reticulin: Within normal limits PAS: Highlights myeloid elements and megakaryocytes. BONE MARROW GROSS A - Received is a container labeled with the patient's name and designated left hip. The specimen consists of a piece of garcia bone measuring 0.3 cm in length and 0.1 cm in diameter. The specimen is totally submitted in one cassette after decalcification. B - Received in two syringes labeled with the patient's name and designated left hip is a specimen that consists of approximately 8 cc of reddish-garcia fluid that on filtration yields multiple minute fragments of light garcia tissue measuring in aggregate 2 x 1 x <0.1 cm. The specimen is totally submitted in one cassette. C - Also received are 16 unstained and 1 peripheral stained slides. The unstained slides are submitted for appropriate staining. Also received is one green top tube which is sent to our reference lab for flow, cytogenetics, AML and MDS FISH. / AM:lianne 09/12/19 TC:0 CPT: 34077, 16733, 60662 x2, 75706 x3, 61280 ADDENDUM ADDENDUM ADDENDUM ADDENDUM ADDENDUM ADDENDUM ADDENDUM ADDENDUM ADDENDUM ADDENDUM ADDENDUM ADDENDUM ADDENDUM ADDENDUM ADDENDUM ADDENDUM ADDENDUM ADDENDUM ADDENDUM ADDENDUM ADDENDUM ADDENDUM ADDENDUM 10/07/2019 10:24 ADDENDUM 10/07/2019 10:24 ADDENDUM 10/07/2019 10:24 ADDENDUM 10/07/2019 10:24 ADDENDUM 10/07/2019 10:24 REPORTS FROM [employer] TEST: Chromosome, leukemia/lymphoma CYTOGENETIC RESULT: 51,XX,del(5)(q13q33),+del(5)(q13q33),add(6)(p21),+add(6) (p21),add(7)(q11.2),+8,add(9)(p21),+10,-17,+19,-20,+21,+21[20] INTERPRETATION: Transforming MDS TEST: AML FISH panel FISH RESULT: 89% of nuclei positive for trisomy 5 with two 5Q deletions; 92% of nuclei positive for 7Q deletion; 87% of nuclei positive for three 8Q signals; 87% of nuclei positive for three to four chromosome 21 signals INTERPRETATION: Transforming MDS related clone detected TEST: MDS FISH panel FISH RESULT: 89% of nuclei positive for trisomy 5 with two 5Q deletions; 92% of nuclei positive for 7Q deletion; 95% of nuclei positive for three 8Q signals; 95% of nuclei positive for 20Q deletion INTERPRETATION: Transforming MDS related clone detected Please see complete report in e-chart or EMR for further details
[2019-09-11] MEDS: Furosemide 20 MG/2 ML VIAL IV (12:30)
--- NOTE | 2019-09-11 13:00 | CT_ITS ---
PROCEDURE: CT GUIDED BONE marrow biopsy and bone marrow aspirate of the left posterior iliac bone. DATE: September 11, 2019. INDICATION: Female, 83 years old. Thrombocytopenia. PHYSICIAN: Vishal Mendez M.D. RADIATION DOSAGE (If Supplied By Facility): CTDIvol = ( 15 ) mGy, DLP = ( 358.1. ) mGycm PROCEDURE: The risks, benefits, and alternatives to the procedure were explained to the patient. The specific risk of hemorrhage requiring further treatment or intervention was detailed and accepted. Follow-up instructions were discussed with the patient as well. Written informed consent was obtained. The patient was brought into the CT suite and placed in the right side down decubitus position. . An appropriate entry site was identified. The overlying skin was prepped and draped in the usual sterile fashion. 1% lidocaine was administered subcutaneously for local anesthesia. Conscious sedation was performed. The patient received 2 mg of Versed and 50 mcg of fentanyl intravenously. Conscious sedation was started at 1:07 PM and terminated at 1:22 PM. The patient was independently monitored by the department nurse. Under CT guidance, a bone marrow biopsy and bone marrow aspirate of the posterior aspect of the left iliac bone were performed The specimens were then placed in the appropriate fluid and transported to the laboratory for analysis. Hemostasis was obtained. The patient tolerated the procedure well without immediate complications. CT/Biopsy/Inj or Needle Placement IMPRESSION: Successful CT guided left iliac bone marrow biopsy and bone marrow aspirate, as described above. The conscious sedation protocol was followed. Electronically Signed: Vishal Mendez, at 13:52 EST , Service support ,
--- NOTE | 2019-09-11 13:06 | PN_ITS ---
<Ashok Campbell - Last Filed: 09/11/19 13:06> Patient Problems: Active and Suspected Problems (Last Reviewed 05/01/19 @ 14:09 by Marilu Pierre) Pancytopenia (Acute) Reason for Visit: abn. labs - pancytopenia Subjective: No N/V/D. No LH/dizziness. No SOB. Agreeable to bone marrow bx. Vitals/I&O's: Vital Signs Temp Pulse Resp BP Pulse Ox 98.0 F 83 18 106/47 L 100 09/11/19 11:24 09/11/19 11:24 09/11/19 11:24 09/11/19 11:24 09/11/19 11:24 Oxygen Delivery Method Room Air Weight: 128 lb 0.006 oz Body Mass Index (BMI) 21.9 Intake and Output for Last 24 Hours 09/09/19 09/10/19 09/11/19 23:59 23:59 23:59 Intake Total 500 / 500 2353.33 / 2353.33 Balance 500 / 500 2353.33 / 2353.33 General: Alert, Oriented x3, Cooperative HEENT: Atraumatic, PERRLA, EOMI, Normocephalic Neck: Supple, No JVD, Negative Carotid Bruits Lungs: Clear to auscultation, Normal air movement Cardiovascular: Regular rate, No murmurs Abdomen: Bowel Sounds Present, Soft, Non Tender Extremities: No edema, Capillary Refill Less than 3 Seconds Skin: No rashes, No breakdown, - - pallor Musculoskeletal: No Tenderness to Palpation of Joints or Extremities Neurological: Cranial nerves II-XII grossly intact Psych/Mental Status: Normal Affect, Appropriate, Alert and oriented to time, place, person, mood and affect Laboratory Results 09/10/19 15:45: WBC 2.5 L, RBC 2.55 L, Hgb 7.9 L, Hct 23.8 L, MCV 93.3, MCH 31.0, MCHC 33.2, RDW Std Deviation 46.0 H, RDW Coeff of Chantelle 13.7, Plt Count 15 L*, MPV 10.6, Neut % (Auto) Not Reportable, Absolute Neuts (auto) 0.4 L, Absolute Lymphs (auto) 1.90, Total Counted 100, Neutrophils % (Manual) 13 L, Band Neutrophils % 1, Lymphocytes % (Manual) 76 H*, Monocytes % (Manual) 9, Eosinophils % (Manual) 1, Diff Path Review May foll, Atypical Lymphocytes 1+, Platelet Estimate MKD DEC, RBC Morphology N CHROM, Ovalocytes 1+ 09/10/19 15:45: PT 16.0 H, INR 1.3, APTT 30.1 09/10/19 15:45: Sodium 133 L, Potassium 3.8, Chloride 106, Carbon Dioxide 19.0 L , Anion Gap 8, BUN 63 H, Creatinine 3.29 H, Estim Creat Clear Calc 11.33, Est GFR (MDRD) Af Amer 17 L, Est GFR (MDRD) Non-Af 14 L, BUN/Creatinine Ratio 19.1, Glucose 89, Calcium 7.6 L, Total Bilirubin 0.20, AST 11 L, ALT 11 L, Alkaline Phosphatase 49, Total Protein 7.2, Albumin 2.9 L, Globulin 4.3 H, Albumin/Globulin Ratio 0.7 L 09/10/19 15:45: Blood Type A POSITIVE, Antibody Screen NEGATIVE 09/10/19 15:45: Uric Acid 9.2 H, Lactate Dehydrogenase 240 09/10/19 15:45: Crossmatch See Detail 09/10/19 18:11: Urine Color Straw, Urine Clarity Cloudy, Urine pH 6.0, Ur Specific [place] 1.010, Urine Protein 15 H, Urine Glucose (UA) Normal, Urine Ketones Negative, Urine Occult Blood 150 H, Urine Nitrite Positive H, Urine Bilirubin Negative, Urine Urobilinogen Normal, Ur Leukocyte Esterase 500 H, Urine RBC 0-5 SEEN, Urine WBC 25-50 SEEN, Ur Squamous Epith Cells 0 SEEN, Ur Transition Epith Cell 0-5 SEEN, Urine Bacteria 3+, Fine Granular Casts 0-5 SEEN, Urine Mucus 0 SEEN 09/10/19 22:50: POC Glucose 97 09/11/19 06:25: WBC 2.1 L, RBC 2.11 L, Hgb 6.6 L, Hct 19.8 L, MCV 93.8, MCH 31.3, MCHC 33.3, RDW Std Deviation 46.6 H, RDW Coeff of Chantelle 13.6, Plt Count 12 L*, MPV 10.2, Neut % (Auto) Not Reportable, Absolute Neuts (auto) 0.5 L, Absolute Lymphs (auto) 1.07, Total Counted 50, Neutrophils % (Manual) 10 L, Band Neutrophils % 1, Lymphocytes % (Manual) 26, Monocytes % (Manual) 3, Metamyelocytes % 10 H, Diff Path Review May foll, Platelet Estimate MKD DEC, Anisocytosis 1+, Ovalocytes RARE 09/11/19 06:25: Sodium Cancelled, Potassium Cancelled, Chloride Cancelled, Carbon Dioxide Cancelled, Anion Gap Cancelled, BUN Cancelled, Creatinine Cancelled, Estim Creat Clear Calc Cancelled, Est GFR (MDRD) Af Amer Cancelled, Est GFR (MDRD) Non-Af Cancelled, BUN/Creatinine Ratio Cancelled, Glucose Cancelled, Calcium Cancelled 09/11/19 06:41: POC Glucose 81 09/11/19 07:46: Sodium 139, Potassium 4.2, Chloride 114 H, Carbon Dioxide 18.0 L , Anion Gap 7, BUN 52 H, Creatinine 3.00 H, Estim Creat Clear Calc 12.48, Est GFR (MDRD) Af Amer 19 L, Est GFR (MDRD) Non-Af 16 L, BUN/Creatinine Ratio 17.3, Glucose 82, Calcium 6.7 L 09/11/19 10:05: Immature Plt Fraction 1.4, Retic Count 0.40 L, Immature Retic Fraction 8.90, Retic Hgb Equivalent 36.6 H 09/11/19 10:05: Fibrinogen 386, D-Dimer Quant (PE/DVT) 2.31 H* 09/11/19 10:05: Vitamin B12 > 2000 H, Vitamin D 25-Hydroxy 42.0 09/11/19 10:05: Iron 89, TIBC 127 L, Iron Saturation 70.1 H, Ferritin 622 H, Lactate Dehydrogenase 198, Folate 11.60 09/11/19 10:05: Haptoglobin Pending 09/11/19 10:05: Miscellaneous Test Pending Current Medications Bupropion HCl (Wellbutrin Xl) 150 mg PO DAILY [facility] Last Admin: 09/11/19 09:19 Dose: 150 mg Documented by: Cholecalciferol (Vitamin D) 3,000 unit PO DAILY [facility] Last Admin: 09/11/19 09:19 Dose: 3,000 unit Documented by: Citalopram Hydrobromide (Celexa) 20 mg PO DAILY [facility] Last Admin: 09/11/19 09:18 Dose: 20 mg Documented by: Cyanocobalamin (Vitamin B12) 2,500 mcg PO DAILY [facility] Last Admin: 09/11/19 09:18 Dose: 2,500 mcg Documented by: Fentanyl Citrate (Sublimaze (100mcg Ampule)) 25 - 50 mcg IV UD PRN PRN Reason: Procedural Pain Control Stop: 09/11/19 23:59 Sodium Chloride () 1,000 mls @ 100 mls/hr IV .Q10H [facility] Last Infusion: 09/11/19 08:06 Dose: 100 mls/hr Documented by: Sodium Chloride () 250 mls @ 15 mls/hr IV .[id number] PRN PRN Reason: Saline Flush Sodium Chloride () 250 mls @ 15 mls/hr IV .[id number] PRN PRN Reason: Additional IVPB Infusion Dextrose (Dextrose 10%-Water) 250 mls @ 999 mls/hr IV .Q16M PRN; Protocol PRN Reason: HYPOGLYCEMIA Ceftriaxone Sodium (Rocephin) 1 gm in 50 mls @ 100 mls/hr IV Q24 [facility] Last Infusion: 09/11/19 08:06 Dose: Infused Documented by: Sodium Chloride () 500 mls @ 15 mls/hr IV .[id number] [facility] Stop: 09/11/19 23:59 Levothyroxine Sodium (Synthroid) 100 mcg PO DAILY@0600 [facility] Last Admin: 09/11/19 05:13 Dose: 100 mcg Documented by: Magnesium Oxide (Mag-Ox 400) 400 mg PO DAILY [facility] Last Admin: 09/11/19 09:18 Dose: 400 mg Documented by: Midazolam HCl (Versed) 1 - 2 mg IV UD PRN PRN Reason: Procedural Sedation Stop: 09/11/19 23:59 Nutritional Formula (Lactose Free) (Ensure Enlive) 120 ml PO 4X/DAY [facility] Polysaccharide Iron [facility] (Ferrex 150) [facility] Last Admin: 09/11/19 09:18 Dose: 150 mg Documented by: Sodium Chloride () 10 - 40 ml IV UD PRN PRN Reason: Port-a-Cath (VAD) Flush Last Admin: 09/11/19 12:30 Dose: 10 ml Documented by: Tolterodine Tartrate (Detrol La) 4 mg PO DAILY [facility] Last Admin: 09/11/19 09:18 Dose: 4 mg Documented by: STROKE Vital Signs/Narrative: Vital Signs Temp Pulse Resp BP Pulse Ox 09/11/19 11:24 98.0 F 83 18 106/47 L 100 09/11/19 10:24 98.1 F 84 16 116/59 L 100 09/11/19 10:09 98.2 F 85 16 109/53 L 99 09/11/19 10:03 98.3 F 84 18 114/57 L 100 09/11/19 10:00 79 09/11/19 09:25 76 Medical Necessity - Tobacco Use Smoking Status: Never smoker Tobacco Use: Secondhand Assessment/Plan All Active Problems (Last Reviewed 05/01/19 @ 14:09 by Marilu Pierre) Pancytopenia (Acute) SOB (shortness of breath) (Resolved) SBO (small bowel obstruction) (Acute) Peristomal hernia (Acute) Partial obstruction of small intestine (Acute) Abdominal pain (Acute) Gastroduodenitis (Resolved) 1. Pancytopenia - Prah following. Bone marrow Bx. Iron/stool occult/TIBC/ferritin/b12/folate ordered. INR 1.3. LFTs normal. D dimer elevated. 2. SANG - suspect 2/2 decreased PO intake. Elevated BUN/Cr. Provide IV fluids. hyponatremia resolved. BUN/Cr slightly improved. Trend. Continue IVF. 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 4. Hypothyroidism - continue synthroid - check tsh. DVT ppx: eliquis This patient was seen by Ashok Campbell PA-C under the supervision of Dr. Conroy. <Damien Blackman - Last Filed: 09/11/19 13:42> Reason for Visit: Pancytopenia. Patient has history of non-Hodgkin's lymphoma, more than 10 years ago and had 3 cycles of chemotherapy but has been in remission for more than 5 years. Objective: Denies chest pain, shortness of breath or dizziness or syncope. Vitals/I&O's: Vital Signs Temp Pulse Resp BP Pulse Ox 98.0 F 89 20 H 111/46 L 100 09/11/19 11:24 09/11/19 13:32 09/11/19 13:32 09/11/19 13:32 09/11/19 13:32 Oxygen Flow Rate (L/min) [4] 2 Oxygen Flow Rate (L/min) [3] 2 Oxygen Flow Rate (L/min) [2] 2 Oxygen Flow Rate (L/min) [1 ( 2 Initial Baseline)] Oxygen Flow Rate (L/min) 2 Oxygen Delivery Method [4] Nasal Cannula Oxygen Delivery Method [3] Nasal Cannula Oxygen Delivery Method [2] Nasal Cannula Oxygen Delivery Method [1 ( Nasal Cannula Initial Baseline)] Oxygen Delivery Method Room Air Weight: 128 lb 0.006 oz Body Mass Index (BMI) 21.9 Intake and Output for Last 24 Hours 09/09/19 09/10/19 09/11/19 23:59 23:59 23:59 Intake Total 500 / 500 2353.33 / 2353.33 Balance 500 / 500 2353.33 / 2353.33 General: Alert, Oriented x3, Cooperative HEENT: Atraumatic, PERRLA, EOMI, Normocephalic Neck: Supple, No JVD, Negative Carotid Bruits Lungs: Clear to auscultation, Normal air movement, No rhonchi, No wheeze, No rales Cardiovascular: Regular rate, Regular Rhythm, Normal S1, Normal S2, No murmurs Abdomen: Bowel Sounds Present, Soft, Non Tender, Non-Distended Extremities: No edema, Capillary Refill Less than 3 Seconds Skin: No rashes, No breakdown, - Musculoskeletal: No Tenderness to Palpation of Joints or Extremities, Cachexia, Muscle Wasting Neurological: Cranial nerves II-XII grossly intact, Deep Tendon Reflexes 2+/4 and Symmetrical, Neuro grossly intact Psych/Mental Status: Normal Affect, Appropriate Laboratory Results 09/10/19 15:45: WBC 2.5 L, RBC 2.55 L, Hgb 7.9 L, Hct 23.8 L, MCV 93.3, MCH 31.0, MCHC 33.2, RDW Std Deviation 46.0 H, RDW Coeff of Chantelle 13.7, Plt Count 15 L*, MPV 10.6, Neut % (Auto) Not Reportable, Absolute Neuts (auto) 0.4 L, Absolute Lymphs (auto) 1.90, Total Counted 100, Neutrophils % (Manual) 13 L, Band Neutrophils % 1, Lymphocytes % (Manual) 76 H*, Monocytes % (Manual) 9, Eosinophils % (Manual) 1, Diff Path Review Reviewed, Atypical Lymphocytes 1+, Platelet Estimate MKD DEC, RBC Morphology N CHROM, Ovalocytes 1+ 09/10/19 15:45: PT 16.0 H, INR 1.3, APTT 30.1 09/10/19 15:45: Sodium 133 L, Potassium 3.8, Chloride 106, Carbon Dioxide 19.0 L , Anion Gap 8, BUN 63 H, Creatinine 3.29 H, Estim Creat Clear Calc 11.33, Est GFR (MDRD) Af Amer 17 L, Est GFR (MDRD) Non-Af 14 L, BUN/Creatinine Ratio 19.1, Glucose 89, Calcium 7.6 L, Total Bilirubin 0.20, AST 11 L, ALT 11 L, Alkaline Phosphatase 49, Total Protein 7.2, Albumin 2.9 L, Globulin 4.3 H, Album in/Globulin Ratio 0.7 L 09/10/19 15:45: Blood Type A POSITIVE, Antibody Screen NEGATIVE 09/10/19 15:45: Uric Acid 9.2 H, Lactate Dehydrogenase 240 09/10/19 15:45: Crossmatch See Detail 09/10/19 18:11: Urine Color Straw, Urine Clarity Cloudy, Urine pH 6.0, Ur Specific [place] 1.010, Urine Protein 15 H, Urine Glucose (UA) Normal, Urine Ketones Negative, Urine Occult Blood 150 H, Urine Nitrite Positive H, Urine Bilirubin Negative, Urine Urobilinogen Normal, Ur Leukocyte Esterase 500 H, Urine RBC 0-5 SEEN, Urine WBC 25-50 SEEN, Ur Squamous Epith Cells 0 SEEN, Ur Transition Epith Cell 0-5 SEEN, Urine Bacteria 3+, Fine Granular Casts 0-5 SEEN, Urine Mucus 0 SEEN 09/10/19 22:50: POC Glucose 97 09/11/19 06:25: WBC 2.1 L, RBC 2.11 L, Hgb 6.6 L, Hct 19.8 L, MCV 93.8, MCH 31.3, MCHC 33.3, RDW Std Deviation 46.6 H, RDW Coeff of Chantelle 13.6, Plt Count 12 L*, MPV 10.2, Neut % (Auto) Not Reportable, Absolute Neuts (auto) 0.5 L, Absolute Lymphs (auto) 1.07, Total Counted 50, Neutrophils % (Manual) 10 L, Band Neutrophils % 1, Lymphocytes % (Manual) 26, Monocytes % (Manual) 3, Metamyelocytes % 10 H, Diff Path Review Reviewed, Platelet Estimate MKD DEC, Anisocytosis 1+, Ovalocytes RARE 09/11/19 06:25: Sodium Cancelled, Potassium Cancelled, Chloride Cancelled, Carbon Dioxide Cancelled, Anion Gap Cancelled, BUN Cancelled, Creatinine Cancell ed, Estim Creat Clear Calc Cancelled, Est GFR (MDRD) Af Amer Cancelled, Est GFR (MDRD) Non-Af Cancelled, BUN/Creatinine Ratio Cancelled, Glucose Cancelled, Calcium Cancelled 09/11/19 06:41: POC Glucose 81 09/11/19 07:46: Sodium 139, Potassium 4.2, Chloride 114 H, Carbon Dioxide 18.0 L , Anion Gap 7, BUN 52 H, Creatinine 3.00 H, Estim Creat Clear Calc 12.48, Est GFR (MDRD) Af Amer 19 L, Est GFR (MDRD) Non-Af 16 L, BUN/Creatinine Ratio 17.3, Glucose 82, Calcium 6.7 L 09/11/19 10:05: Immature Plt Fraction 1.4, Retic Count 0.40 L, Immature Retic Fraction 8.90, Retic Hgb Equivalent 36.6 H 09/11/19 10:05: Fibrinogen 386, D-Dimer Quant (PE/DVT) 2.31 H* 09/11/19 10:05: Vitamin B12 > 2000 H, Vitamin D 25-Hydroxy 42.0 09/11/19 10:05: Iron 89, TIBC 127 L, Iron Saturation 70.1 H, Ferritin 622 H, Lactate Dehydrogenase 198, Folate 11.60 09/11/19 10:05: Haptoglobin Pending 09/11/19 10:05: Miscellaneous Test Pending Current Medications Bupropion HCl (Wellbutrin Xl) 150 mg PO DAILY [facility] Last Admin: 09/11/19 09:19 Dose: 150 mg Documented by: Cholecalciferol (Vitamin D) 3,000 unit PO DAILY [facility] Last Admin: 09/11/19 09:19 Dose: 3,000 unit Documented by: Citalopram Hydrobromide (Celexa) 20 mg PO DAILY [facility] Last Admin: 09/11/19 09:18 Dose: 20 mg Documented by: Cyanocobalamin (Vitamin B12) 2,500 mcg PO DAILY [facility] Last Admin: 09/11/19 09:18 Dose: 2,500 mcg Documented by: Fentanyl Citrate (Sublimaze (100mcg Ampule)) 25 - 50 mcg IV UD PRN PRN Reason: Procedural Pain Control Stop: 09/11/19 23:59 Last Admin: 09/11/19 13:07 Dose: 50 mcg Documented by: Sodium Chloride () 1,000 mls @ 100 mls/hr IV .Q10H [facility] Last Infusion: 09/11/19 08:06 Dose: 100 mls/hr Documented by: Sodium Chloride () 250 mls @ 15 mls/hr IV .[id number] PRN PRN Reason: Saline Flush Sodium Chloride () 250 mls @ 15 mls/hr IV .[id number] PRN PRN Reason: Additional IVPB Infusion Dextrose (Dextrose 10%-Water) 250 mls @ 999 mls/hr IV .Q16M PRN; Protocol PRN Reason: HYPOGLYCEMIA Ceftriaxone Sodium (Rocephin) 1 gm in 50 mls @ 100 mls/hr IV Q24 [facility] Last Infusion: 09/11/19 08:06 Dose: Infused Documented by: Sodium Chloride () 500 mls @ 15 mls/hr IV .[id number] [facility] Stop: 09/11/19 23:59 Last Admin: 09/11/19 13:07 Dose: 15 mls/hr Documented by: Levothyroxine Sodium (Synthroid) 100 mcg PO DAILY@0600 [facility] Last Admin: 09/11/19 05:13 Dose: 100 mcg Documented by: Magnesium Oxide (Mag-Ox 400) 400 mg PO DAILY [facility] Last Admin: 09/11/19 09:18 Dose: 400 mg Documented by: Midazolam HCl (Versed) 1 - 2 mg IV UD PRN PRN Reason: Procedural Sedation Stop: 09/11/19 23:59 Last Admin: 09/11/19 13:07 Dose: 2 mg Documented by: Nutritional Formula (Lactose Free) (Ensure Enlive) 120 ml PO 4X/DAY [facility] Polysaccharide Iron Complex (Ferrex 150) [facility] Last Admin: 09/11/19 09:18 Dose: 150 mg Documented by: Sodium Chloride () 10 - 40 ml IV UD PRN PRN Reason: Port-a-Cath (VAD) Flush Last Admin: 02/12/20 12:30 Dose: 10 ml Documented by: Tolterodine Tartrate (Detrol La) 4 mg PO DAILY [facility] Last Admin: 09/11/19 09:18 Dose: 4 mg Documented by: STROKE Vital Signs/Narrative: Vital Signs Temp Pulse Pulse Pulse Pulse Pulse Resp 09/11/19 13:32 89 20 H 09/11/19 13:27 90 20 H 09/11/19 13:07 90 92 91 90 09/11/19 11:24 98.0 F 83 18 09/11/19 10:24 98.1 F 84 16 09/11/19 10:09 98.2 F 85 16 09/11/19 10:03 98.3 F 84 18 09/11/19 10:00 79 Resp Resp Resp Resp BP BP BP 09/11/19 13:32 111/46 L 09/11/19 13:27 94/49 L 09/11/19 13:07 18 18 19 H 19 H 141/68 H 110/44 L 09/11/19 11:24 106/47 L 09/11/19 10:24 116/59 L 09/11/19 10:09 109/53 L 09/11/19 10:03 114/57 L 09/11/19 10:00 BP BP Pulse Ox 09/11/19 13:32 100 09/11/19 13:27 100 09/11/19 13:07 107/48 L 107/44 L 09/11/19 11:24 100 09/11/19 10:24 100 09/11/19 10:09 99 09/11/19 10:03 100 09/11/19 10:00 Assessment/Plan This patient was seen in conjunction with Ashok STROUD. I have independently interviewed and examined the patient and reviewed pertinent history, examination findings, laboratory and plan of management. I have reviewed the note and agree with the documented findings with the few additional points. In brief, patient is admitted for pancytopenia. Discussed with Dr. Young. Iron studies, B12, ferritin, fibrinogen, d-dimer, FDP, hemolytic anemia markers, reticulocyte panel ordered. D-dimer elevated, expected, probably secondary to increased low fibrinogen level and thrombocytopenia. Stool for occult blood ordered. He requested Dr. Obregon for bone marrow aspiration which is ordered to rule out acute leukemia . SANG: Most likely prerenal. On IV fluid. Hyponatremia resolved. 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 Possible UTI: UA is positive of nitrite, 25-50 cells and 3+ bacteria. Urine culture pending. On IV ceftriaxone. I have discussed my assessment with Ashok STROUD and orders have been reviewed. Total time of the visit including total time spent in counseling or coordination of care, (more than 50% of the total time, spent in obtaining medical information from nurses and other ancillary care providers), consent with consultants and patient, review of labs and imaging is 40 minutes Active Medications Bupropion HCl (Wellbutrin Xl) 150 mg PO DAILY [facility] Last Admin: 09/11/19 09:19 Dose: 150 mg Documented by: Cholecalciferol (Vitamin D) 3,000 unit PO DAILY [facility] Last Admin: 09/11/19 09:19 Dose: 3,000 unit Documented by: Citalopram Hydrobromide (Celexa) 20 mg PO DAILY [facility] Last Admin: 09/11/19 09:18 Dose: 20 mg Documented by: Cyanocobalamin (Vitamin B12) 2,500 mcg PO DAILY [facility] Last Admin: 09/11/19 09:18 Dose: 2,500 mcg Documented by: Fentanyl Citrate (Sublimaze (100mcg Ampule)) 25 - 50 mcg IV UD PRN PRN Reason: Procedural Pain Control Stop: 09/11/19 23:59 Last Admin: 09/11/19 13:07 Dose: 50 mcg Documented by: Sodium Chloride () 1,000 mls @ 100 mls/hr IV .Q10H [facility] Last Infusion: 09/11/19 08:06 Dose: 100 mls/hr Documented by: Sodium Chloride () 250 mls @ 15 mls/hr IV .[id number] PRN PRN Reason: Saline Flush Sodium Chloride () 250 mls @ 15 mls/hr IV .[id number] PRN PRN Reason: Additional IVPB Infusion Dextrose (Dextrose 10%-Water) 250 mls @ 999 mls/hr IV .Q16M PRN; Protocol PRN Reason: HYPOGLYCEMIA Ceftriaxone Sodium (Rocephin) 1 gm in 50 mls @ 100 mls/hr IV Q24 [facility] Last Infusion: 09/11/19 08:06 Dose: Infused Documented by: Sodium Chloride () 500 mls @ 15 mls/hr IV .[id number] [facility] Stop: 09/11/19 23:59 Last Admin: 09/11/19 13:07 Dose: 15 mls/hr Documented by: Levothyroxine Sodium (Synthroid) 100 mcg PO DAILY@0600 [facility] Last Admin: 09/11/19 05:13 Dose: 100 mcg Documented by: Magnesium Oxide (Mag-Ox 400) 400 mg PO DAILY [facility] Last Admin: 09/11/19 09:18 Dose: 400 mg Documented by: Midazolam HCl (Versed) 1 - 2 mg IV UD PRN PRN Reason: Procedural Sedation Stop: 09/11/19 23:59 Last Admin: 09/11/19 13:07 Dose: 2 mg Documented by: Nutritional Formula (Lactose Free) (Ensure Enlive) 120 ml PO 4X/DAY [facility] Polysaccharide Iron Complex (Ferrex 150) [facility] Last Admin: 09/11/19 09:18 Dose: 150 mg Documented by: Sodium Chloride () 10 - 40 ml IV UD PRN PRN Reason: Port-a-Cath (VAD) Flush Last Admin: 09/11/19 12:30 Dose: 10 ml Documented by: Tolterodine Tartrate (Detrol La) 4 mg PO DAILY [facility] Last Admin: 09/11/19 09:18 Dose: 4 mg Documented by: Code Visit Inpatient E&M: [id number] [facility] L[facility]
[2019-09-11] MEDS: fentaNYL 100 MCG/2 ML Ampul IV (13:07)
[2019-09-11] MEDS: Midazolam 2 MG/2 ML Syringe IV (13:07)
[2019-09-11 13:31] LABS: Pathologist Review Reviewed
[2019-09-11 13:33] LABS: Pathologist Review Reviewed
--- NOTE | 2019-09-11 15:38 | CON.PCM_ITS ---
Consult Referring Physician: Dr. Golden. Consult Results: Pancytopenia. Subjective Date of Service:: 09/11/19 Chief Complaint: pancytopenia History of Present Illness: 83 y.o.woman 83y.o.woman with history of Diffuse large B-cell lymphoma, CD20 positive, stage II, diagnosed on 05/24/2004. S/P R-CHOP therapy x6 cycles, completed September 2004, Recurrent B-cell lymphoma, follicular center cell, grade 3. S/P right inguinal node excision 06/13/2011. Clinical stage IIB. IPI score of 3. Largest mesenteric mass 8.6 x 4.4 cm in the lower mid-abdomen. S/P R-CEOP x6 cycles 06/20/2011 - 11/02/2011. S/P BR chemotherapy x3 cycles 12/29/2011 - 02/28/2012. Rituxan maintenance from 03/28/2012 - 03/06/2013. 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 She had Coumadin toxicity, GI obstruction with ?bleed in 05/2017. She was transferred to in [place], passed hard fecal material with resolution of a bdominal pain and discharged. Echocardiogram on 08/08/2017 showed EF 55%. She is now on Eliquis. Was found to have Pancytopenia and is now admitted. 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) Acquired hypothyroidism (Chronic) Past Medical/Surgical History: Past Medical History - Most Recent Inpatient Visit Past Medical History Start: 09/10/19 18:24 Text: Status: Complete Freq: ONCE Protocol: Document 09/10/19 19:16 YESSICA (Rec: 09/10/19 19:19 [facility] [place] [id number]) BMI Required to complete PMH What is Patient's BMI 22 Past Medical History Unable History Recalled No Query Text:Pt Unable/Family Not Present Neurologic Medical History Hx Stroke/TIA No Hx Dementia/Alzheimer's No Hx Parkinson's Disease No Hx Seizures No Hx Multiple Sclerosis No Hx Migraines No Cardiac Medical History VTE Present on Admission No Hx of Deep Vein Thrombosis/VTE/PE Yes: PE Hx Hypertension No Hx Chest Pain/Angina Yes Hx Heart Attack No Hx Cardiac Surgery/Stents/Etc. No Hx Heart Failure No Hx Pacemaker/AICD No Hx Irregular Heartbeat and/or Afib No Hx Anticoagulant Therapy Yes: eliquis Query Text:(Coumadin, Aspirin, Plavix, Xarelto, etc.) Hx Pain in Legs when Walking/Leg Cramps No Respiratory Medical History Hx COPD Yes Hx Emphysema No Hx Smoking No Smoking Status Never smoker Tobacco Use Secondhand Hx Tobacco Use in last 12 months No Hx of Pipe Smoking No Hx Sleep Apnea No CPAP No Do you snore loudly (louder than talking No or can be heard through closed doors)? Do you often feel tired/ fatigued/ No sleepy during daytime? Has anyone observed you stop breathing No during sleep? STOP Results Negative GI Medical History Hx Ulcer No: colostomy Hx Hepatitis No Hx Cirrhosis No Hx GI Bleed No Hx Unplanned Weight Loss No Genitourinary Medical History Indwelling Catheter in Place on Arrival/ No Admission Hx Renal Disease Yes: STAGE 4 Hx Dialysis No Musculoskeletal History Hx Arthritis Yes: HANDS Hx Rheumatoid Arthritis No Endocrine Medical History Hx Diabetes No Hx Thyroid Disease Yes: ON MED Hematologic Medical History Hx of Blood Transfusion Yes Hx of Transfusion in last 3 Months Yes Date of Last Transfusion (if within last 3 months) Ever experience any problems with No transfusion(s)? Hx of Preganancy in last 3 Months No Nurse Filling Out Transfusion & SGESSEL Questions: Date: 09/10/19 Time: 19:18 Psycho/Social Medical History Hx Depression Yes Hx Anxiety Yes Hx Behavior Disorder No Hx Alcohol Use No Hx Substance Use No Other Medical History Hx Blood Disorders Yes: factor 5, clotting easily Hx Anemia Yes Hx Cancer Yes: NON HODGKINS LYMPHOMA Hx Drug Resistant Organism Yes: MRSA POSSIBLE 5-6 YEARS AGO Wound/Pressure Injury Present on Arrival No: to be assessed per primary /Admission rn Query Text:If yes, chart assessment in Shift/Clinical Findings Central Line/PICC/VAD Present on Arrival Yes /Admission Antibiotics within last 7 days? No Risk for Readmission Number of Risk Factors 10 At Risk for Readmission Patient is At Risk For Readmission Patient is eligible for Call Back Y Past Medical History (Last Reviewed 05/01/19 @ 14:09 by Marilu Pierre) Anemia (Acute) Clotting disorder (Acute) Colostomy in place (Acute) Kidney disease (Acute) Pulmonary embolism (Acute) Past Surgical History (Last Reviewed 05/01/19 @ 14:09 by Marilu Pierre) History of bowel resection (Acute) History of hernia repair (Acute) History of kyphoplasty (Acute) Paternal Family History: Family History (Last Reviewed 09/10/19 @ 17:52 by MAXIMUS Brown) Father FH: colon cancer Mother Diabetes Sister Diabetes Brother Diabetes Family History: - Maternal Family History: Family History (Last Reviewed 09/10/19 @ 17:52 by MAXIMUS Brown) Father FH: colon cancer Mother Diabetes Sister Diabetes Brother Diabetes Family History: Stroke - Social History Lives: With Family Smoking Status: Never smoker Tobacco Use: Secondhand Alcohol: None Drugs: None Allergies/Adverse Reactions: Allergy/AdvReac Type Severity Reaction Status Date / Time bee venom protein (honey bee) Allergy Severe Anaphylaxis Verified 09/10/19 14:25 niacin Allergy Severe Anaphylaxis Verified 09/10/19 14:25 Review of Systems Constitutional:: Reports: Weakness, Fatigue, Weight loss. Denies: Fever, Sweats Cardiovascular:: Denies: Chest pain, Palpitations, Dyspnea on exertion, Orthopnea, PND, Shortness of breath Respiratory: Denies: Cough, Hemoptysis, Shortness of Breath, Wheezing Gastrointestinal:: Denies: Abdominal pain, Nausea, Vomiting, Diarrhea, Constipation, Hematochezia Genitourinary: Denies: Dysuria, Hematuria, 15, Flank pain Musculoskeletal:: Denies: Back pain, Myalgia, Arthralgia Skin: Denies: Rash, Skin Changes, Wounds Neurological:: Denies: Headache, Dizziness, Visual changes, Tinnitus, Hearing loss Psychiatric: Denies: Anxiety, Depression, Homicidal Ideations, Suicidal Ideat ions Vital Signs Height 5 ft 4 in Weight: 58.06 kg Weight in Pounds 128.0 lbs Pulse Ox 100 Temperature 97.5 F Pulse Rate [4] 90 Pulse Rate [3] 91 Pulse Rate [2] 92 Pulse Rate [1 (Initial 90 Baseline)] Pulse Rate 85 Respiratory Rate [4] 19 Respiratory Rate [3] 19 Respiratory Rate [2] 18 Respiratory Rate [1 (Initial 18 Baseline)] Respiratory Rate 16 Blood Pressure [4] 107/44 Blood Pressure [3] 107/48 Blood Pressure [2] 110/44 Blood Pressure [1 (Initial 141/68 Baseline)] Blood Pressure 114/63 Blood Pressure Position Semi-Fowlers - Physical Exam General: Alert, Oriented x3, Cooperative, No apparent distress, - - thin HEENT: Atraumatic, PERRLA, EOMI, Normocephalic Oropharynx:: Dry mucosa Neck:: Supple, Trachea midline. Negative for: JVD, bilateral Cardiac:: Regular rate, Regular rhythm, Normal S1, Normal S2. Negative for: Murmur Lungs: Clear to auscultation, Excusion symmetrical. Negative for: Rhonchi, Wheezes Abdomen:: - - + colostomy Neurological: Cranial nerves II-XII grossly intact Psychiatric:: Appropriate affect, Euthymic Lymphatics:: Negative for: Cervical lymphadenopathy, Supraclavicular lymphadenopathy, Axillary lymphadenopathy Laboratory Data: Laboratory Tests 09/11/19 09/11/19 09/11/19 Range/Units 10:05 10:05 10:05 WBC (4.4-11.0) K/mm3 RBC (4.2-5.4) M/mm3 Hgb (12.0-15.0) g/dL Hct (37-47) % MCV (81-99) fL MCH (27.0-32.0) pg MCHC (32-36) g/dL RDW Std Deviation (35.1-43.9) fl RDW Coeff of Chantelle (11.6-14.6) % Plt Count (150-450) K/mm3 MPV (6.2-12.0) fl Neut % (Auto) Absolute Neuts (auto) (2.0-7.7) X10^3/uL Absolute Lymphs (auto) (0.83-4.51) X10^3/uL Total Counted (MANUAL DIFF) Neutrophils % (Manual) (47-70) % Band Neutrophils % (0-5) % Lymphocytes % (Manual) (19-41) % Monocytes % (Manual) (0-10) % Eosinophils % (Manual) (0-5) % Metamyelocytes % (0-1) % Diff Path Review Atypical Lymphocytes % Platelet Estimate (ADEQ) Immature Plt Fraction (1.0-7.9) % RBC Morphology (NORM C&C) NORMAL Anisocytosis Ovalocytes Retic Count (0.5-1.5) % Immature Retic Fraction (3.00-15.90) % Retic Hgb Equivalent (30-35) pg PT (11.7-14.9) SECONDS INR APTT (24.1-36.2) Seconds Fibrinogen 386 (203-444) mg/dl D-Dimer Quant (PE/DVT) 2.31 H* (0.27-0.49) FEU/ug/m Sodium (136-145) mmol/L Potassium (3.5-5.1) mmol/L Chloride (98-107) mmol/L Carbon Dioxide (21.0-32.0) mmol/L Anion Gap (5-15) BUN (7-18) mg/dL Creatinine (0.55-1.02) mg/dL Estim Creat Clear Calc ml/min Est GFR (MDRD) Af Amer (>60) mL/min Est GFR (MDRD) Non-Af (>60) mL/min BUN/Creatinine Ratio (10-20) RATIO Glucose (74-106) mg/dL Uric Acid (2.6-6.0) mg/dL Calcium (8.5-10.1) mg/dL Iron 89 (50-170) ug/dL TIBC 127 L (250-450) ug/dL Iron Saturation 70.1 H (15.0-55.0) % Ferritin 622 H (8-252) ng/mL Total Bilirubin (0.20-1.00) mg/dL AST (15-37) U/L ALT (13-56) U/L Alkaline Phosphatase (45-117) U/L Lactate Dehydrogenase 198 (84-246) U/L Total Protein (6.4-8.2) g/dL Albumin (3.2-5.0) g/dL Globulin (2.2-4.2) g/dL Albumin/Globulin Ratio (0.9-2.4) RATIO Vitamin B12 > 2000 H (211-911) pg/mL Vitamin D 25-Hydroxy 42.0 (29.95-100.01) ng/mL Folate 11.60 (3.1-55.4) ng/mL Urine Color (Yellow) Urine Clarity (Clear) Urine pH (5.0 - 8.0) Ur Specific [place] (1.002-1.030) Urine Protein (Negative) mg/dl Urine Glucose (UA) (Normal) mg/dl Urine Ketones (Negative) mg/dl Urine Occult Blood (Negative) /ul Urine Nitrite (Negative) Urine Bilirubin (Negative) mg/dL Urine Urobilinogen (Normal) mg/dl Ur Leukocyte Esterase (Negative) /ul Urine RBC (0-5) /hpf Urine WBC (0-5) /hpf Ur Squamous Epith Cells (5-10) /hpf Ur Transition Epith Cell (0-5) /hpf Urine Bacteria (None Seen) /hpf Fine Granular Casts (0-5) /lpf Urine Mucus (<or=2+) /hpf POC Glucose (70-110) mg/dL Blood Type Antibody Screen Crossmatch 09/11/19 09/11/19 09/11/19 Range/Units 10:05 07:46 06:41 WBC (4.4-11.0) K/mm3 RBC (4.2-5.4) M/mm3 Hgb (12.0-15.0) g/dL Hct (37-47) % MCV (81-99) fL MCH (27.0-32.0) pg MCHC (32-36) g/dL RDW Std Deviation (35.1-43.9) fl RDW Coeff of Chantelle (11.6-14.6) % Plt Count (150-450) K/mm3 MPV (6.2-12.0) fl Neut % (Auto) Absolute Neuts (auto) (2.0-7.7) X10^3/uL Absolute Lymphs (auto) (0.83-4.51) X10^3/uL Total Counted (MANUAL DIFF) Neutrophils % (Manual) (47-70) % Band Neutrophils % (0-5) % Lymphocytes % (Manual) (19-41) % Monocytes % (Manual) (0-10) % Eosinophils % (Manual) (0-5) % Metamyelocytes % (0-1) % Diff Path Review Atypical Lymphocytes % Platelet Estimate (ADEQ) Immature Plt Fraction 1.4 (1.0-7.9) % RBC Morphology (NORM C&C) NORMAL Anisocytosis Ovalocytes Retic Count 0.40 L (0.5-1.5) % Immature Retic Fraction 8.90 (3.00-15.90) % Retic Hgb Equivalent 36.6 H (30-35) pg PT (11.7-14.9) SECONDS INR APTT (24.1-36.2) Seconds Fibrinogen (203-444) mg/dl D-Dimer Quant (PE/DVT) (0.27-0.49) FEU/ug/m Sodium 139 (136-145) mmol/L Potassium 4.2 (3.5-5.1) mmol/L Chloride 114 H (98-107) mmol/L Carbon Dioxide 18.0 L (21.0-32.0) mmol/L Anion Gap 7 (5-15) BUN 52 H (7-18) mg/dL Creatinine 3.00 H (0.55-1.02) mg/dL Estim Creat Clear Calc 12.48 ml/min Est GFR (MDRD) Af Amer 19 L (>60) mL/min Est GFR (MDRD) Non-Af 16 L (>60) mL/min BUN/Creatinine Ratio 17.3 (10-20) RATIO Glucose 82 (74-106) mg/dL Uric Acid (2.6-6.0) mg/dL Calcium 6.7 L (8.5-10.1) mg/dL Iron (50-170) ug/dL TIBC (250-450) ug/dL Iron Saturation (15.0-55.0) % Ferritin (8-252) ng/mL Total Bilirubin (0.20-1.00) mg/dL AST (15-37) U/L ALT (13-56) U/L Alkaline Phosphatase (45-117) U/L Lactate Dehydrogenase (84-246) U/L Total Protein (6.4-8.2) g/dL Albumin (3.2-5.0) g/dL Globulin (2.2-4.2) g/dL Albumin/Globulin Ratio (0.9-2.4) RATIO Vitamin B12 (211-911) pg/mL Vitamin D 25-Hydroxy (29.95-100.01) ng/mL Folate (3.1-55.4) ng/mL Urine Color (Yellow) Urine Clarity (Clear) Urine pH (5.0 - 8.0) Ur Specific [place] (1.002-1.030) Urine Protein (Negative) mg/dl Urine Glucose (UA) (Normal) mg/dl Urine Ketones (Negative) mg/dl Urine Occult Blood (Negative) /ul Urine Nitrite (Negative) Urine Bilirubin (Negative) mg/dL Urine Urobilinogen (Normal) mg/dl Ur Leukocyte Esterase (Negative) /ul Urine RBC (0-5) /hpf Urine WBC (0-5) /hpf Ur Squamous Epith Cells (5-10) /hpf Ur Transition Epith Cell (0-5) /hpf Urine Bacteria (None Seen) /hpf Fine Granular Casts (0-5) /lpf Urine Mucus (<or=2+) /hpf POC Glucose 81 (70-110) mg/dL Blood Type Antibody Screen Crossmatch 09/11/19 09/11/19 09/10/19 Range/Units 06:25 06:25 22:50 WBC 2.1 L (4.4-11.0) K/mm3 RBC 2.11 L (4.2-5.4) M/mm3 Hgb 6.6 L (12.0-15.0) g/dL Hct 19.8 L (37-47) % MCV 93.8 (81-99) fL MCH 31.3 (27.0-32.0) pg MCHC 33.3 (32-36) g/dL RDW Std Deviation 46.6 H (35.1-43.9) fl RDW Coeff of Chantelle 13.6 (11.6-14.6) % Plt Count 12 L* (150-450) K/mm3 MPV 10.2 (6.2-12.0) fl Neut % (Auto) Not Reportable Absolute Neuts (auto) 0.5 L (2.0-7.7) X10^3/uL Absolute Lymphs (auto) 1.07 (0.83-4.51) X10^3/uL Total Counted 50 (MANUAL DIFF) Neutrophils % (Manual) 10 L (47-70) % Band Neutrophils % 1 (0-5) % Lymphocytes % (Manual) 26 (19-41) % Monocytes % (Manual) 3 (0-10) % Eosinophils % (Manual) (0-5) % Metamyelocytes % 10 H (0-1) % Diff Path Review Reviewed Atypical Lymphocytes % Platelet Estimate MKD DEC (ADEQ) Immature Plt Fraction (1.0-7.9) % RBC Morphology (NORM C&C) NORMAL Anisocytosis 1+ Ovalocytes RARE Retic Count (0.5-1.5) % Immature Retic Fraction (3.00-15.90) % Retic Hgb Equivalent (30-35) pg PT (11.7-14.9) SECONDS INR APTT (24.1-36.2) Seconds Fibrinogen (203-444) mg/dl D-Dimer Quant (PE/DVT) (0.27-0.49) FEU/ug/m Sodium Cancelled (136-145) mmol/L Potassium Cancelled (3.5-5.1) mmol/L Chloride Cancelled (98-107) mmol/L Carbon Dioxide Cancelled (21.0-32.0) mmol/L Anion Gap Cancelled (5-15) BUN Cancelled (7-18) mg/dL Creatinine Cancelled (0.55-1.02) mg/dL Estim Creat Clear Calc Cancelled ml/min Est GFR (MDRD) Af Amer Cancelled (>60) mL/min Est GFR (MDRD) Non-Af Cancelled (>60) mL/min BUN/Creatinine Ratio Cancelled (10-20) RATIO Glucose Cancelled (74-106) mg/dL Uric Acid (2.6-6.0) mg/dL Calcium Cancelled (8.5-10.1) mg/dL Iron (50-170) ug/dL TIBC (250-450) ug/dL Iron Saturation (15.0-55.0) % Ferritin (8-252) ng/mL Total Bilirubin (0.20-1.00) mg/dL AST (15-37) U/L ALT (13-56) U/L Alkaline Phosphatase (45-117) U/L Lactate Dehydrogenase (84-246) U/L Total Protein (6.4-8.2) g/dL Albumin (3.2-5.0) g/dL Globulin (2.2-4.2) g/dL Albumin/Globulin Ratio (0.9-2.4) RATIO Vitamin B12 (211-911) pg/mL Vitamin D 25-Hydroxy (29.95-100.01) ng/mL Folate (3.1-55.4) ng/mL Urine Color (Yellow) Urine Clarity (Clear) Urine pH (5.0 - 8.0) Ur Specific [place] (1.002-1.030) Urine Protein (Negative) mg/dl Urine Glucose (UA) (Normal) mg/dl Urine Ketones (Negative) mg/dl Urine Occult Blood (Negative) /ul Urine Nitrite (Negative) Urine Bilirubin (Negative) mg/dL Urine Urobilinogen (Normal) mg/dl Ur Leukocyte Esterase (Negative) /ul Urine RBC (0-5) /hpf Urine WBC (0-5) /hpf Ur Squamous Epith Cells (5-10) /hpf Ur Transition Epith Cell (0-5) /hpf Urine Bacteria (None Seen) /hpf Fine Granular Casts (0-5) /lpf Urine Mucus (<or=2+) /hpf POC Glucose 97 (70-110) mg/dL Blood Type Antibody Screen Crossmatch 09/10/19 09/10/19 09/10/19 Range/Units 18:11 15:45 15:45 WBC (4.4-11.0) K/mm3 RBC (4.2-5.4) M/mm3 Hgb (12.0-15.0) g/dL Hct (37-47) % MCV (81-99) fL MCH (27.0-32.0) pg MCHC (32-36) g/dL RDW Std Deviation (35.1-43.9) fl RDW Coeff of Chantelle (11.6-14.6) % Plt Count (150-450) K/mm3 MPV (6.2-12.0) fl Neut % (Auto) Absolute Neuts (auto) (2.0-7.7) X10^3/uL Absolute Lymphs (auto) (0.83-4.51) X10^3/uL Total Counted (MANUAL DIFF) Neutrophils % (Manual) (47-70) % Band Neutrophils % (0-5) % Lymphocytes % (Manual) (19-41) % Monocytes % (Manual) (0-10) % Eosinophils % (Manual) (0-5) % Metamyelocytes % (0-1) % Diff Path Review Atypical Lymphocytes % Platelet Estimate (ADEQ) Immature Plt Fraction (1.0-7.9) % RBC Morphology (NORM C&C) NORMAL Anisocytosis Ovalocytes Retic Count (0.5-1.5) % Immature Retic Fraction (3.00-15.90) % Retic Hgb Equivalent (30-35) pg PT (11.7-14.9) SECONDS INR APTT (24.1-36.2) Seconds Fibrinogen (203-444) mg/dl D-Dimer Quant (PE/DVT) (0.27-0.49) FEU/ug/m Sodium (136-145) mmol/L Potassium (3.5-5.1) mmol/L Chloride (98-107) mmol/L Carbon Dioxide (21.0-32.0) mmol/L Anion Gap (5-15) BUN (7-18) mg/dL Creatinine (0.55-1.02) mg/dL Estim Creat Clear Calc ml/min Est GFR (MDRD) Af Amer (>60) mL/min Est GFR (MDRD) Non-Af (>60) mL/min BUN/Creatinine Ratio (10-20) RATIO Glucose (74-106) mg/dL Uric Acid 9.2 H (2.6-6.0) mg/dL Calcium (8.5-10.1) mg/dL Iron (50-170) ug/dL TIBC (250-450) ug/dL Iron Saturation (15.0-55.0) % Ferritin (8-252) ng/mL Total Bilirubin (0.20-1.00) mg/dL AST (15-37) U/L ALT (13-56) U/L Alkaline Phosphatase (45-117) U/L Lactate Dehydrogenase 240 (84-246) U/L Total Protein (6.4-8.2) g/dL Albumin (3.2-5.0) g/dL Globulin (2.2-4.2) g/dL Albumin/Globulin Ratio (0.9-2.4) RATIO Vitamin B12 (211-911) pg/mL Vitamin D 25-Hydroxy (29.95-100.01) ng/mL Folate (3.1-55.4) ng/mL Urine Color Straw (Yellow) Urine Clarity Cloudy (Clear) Urine pH 6.0 (5.0 - 8.0) Ur Specific [place] 1.010 (1.002-1.030) Urine Protein 15 H (Negative) mg/dl Urine Glucose (UA) Normal (Normal) mg/dl Urine Ketones Negative (Negative) mg/dl Urine Occult Blood 150 H (Negative) /ul Urine Nitrite Positive H (Negative) Urine Bilirubin Negative (Negative) mg/dL Urine Urobilinogen Normal (Normal) mg/dl Ur Leukocyte Esterase 500 H (Negative) /ul Urine RBC 0-5 SEEN (0-5) /hpf Urine WBC 25-50 SEEN (0-5) /hpf Ur Squamous Epith Cells 0 SEEN (5-10) /hpf Ur Transition Epith Cell 0-5 SEEN (0-5) /hpf Urine Bacteria 3+ (None Seen) /hpf Fine Granular Casts 0-5 SEEN (0-5) /lpf Urine Mucus 0 SEEN (<or=2+) /hpf POC Glucose (70-110) mg/dL Blood Type Antibody Screen Crossmatch See Detail 09/10/19 09/10/19 09/10/19 Range/Units 15:45 15:45 15:45 WBC (4.4-11.0) K/mm3 RBC (4.2-5.4) M/mm3 Hgb (12.0-15.0) g/dL Hct (37-47) % MCV (81-99) fL MCH (27.0-32.0) pg MCHC (32-36) g/dL RDW Std Deviation (35.1-43.9) fl RDW Coeff of Chantelle (11.6-14.6) % Plt Count (150-450) K/mm3 MPV (6.2-12.0) fl Neut % (Auto) Absolute Neuts (auto) (2.0-7.7) X10^3/uL Absolute Lymphs (auto) (0.83-4.51) X10^3/uL Total Counted (MANUAL DIFF) Neutrophils % (Manual) (47-70) % Band Neutrophils % (0-5) % Lymphocytes % (Manual) (19-41) % Monocytes % (Manual) (0-10) % Eosinophils % (Manual) (0-5) % Metamyelocytes % (0-1) % Diff Path Review Atypical Lymphocytes % Platelet Estimate (ADEQ) Immature Plt Fraction (1.0-7.9) % RBC Morphology (NORM C&C) NORMAL Anisocytosis Ovalocytes Retic Count (0.5-1.5) % Immature Retic Fraction (3.00-15.90) % Retic Hgb Equivalent (30-35) pg PT 16.0 H (11.7-14.9) SECONDS INR 1.3 APTT 30.1 (24.1-36.2) Seconds Fibrinogen (203-444) mg/dl D-Dimer Quant (PE/DVT) (0.27-0.49) FEU/ug/m Sodium 133 L (136-145) mmol/L Potassium 3.8 (3.5-5.1) mmol/L Chloride 106 (98-107) mmol/L Carbon Dioxide 19.0 L (21.0-32.0) mmol/L Anion Gap 8 (5-15) BUN 63 H (7-18) mg/dL Creatinine 3.29 H (0.55-1.02) mg/dL Estim Creat Clear Calc 11.33 ml/min Est GFR (MDRD) Af Amer 17 L (>60) mL/min Est GFR (MDRD) Non-Af 14 L (>60) mL/min BUN/Creatinine Ratio 19.1 (10-20) RATIO Glucose 89 (74-106) mg/dL Uric Acid (2.6-6.0) mg/dL Calcium 7.6 L (8.5-10.1) mg/dL Iron (50-170) ug/dL TIBC (250-450) ug/dL Iron Saturation (15.0-55.0) % Ferritin (8-252) ng/mL Total Bilirubin 0.20 (0.20-1.00) mg/dL AST 11 L (15-37) U/L ALT 11 L (13-56) U/L Alkaline Phosphatase 49 (45-117) U/L Lactate Dehydrogenase (84-246) U/L Total Protein 7.2 (6.4-8.2) g/dL Albumin 2.9 L (3.2-5.0) g/dL Globulin 4.3 H (2.2-4.2) g/dL Albumin/Globulin Ratio 0.7 L (0.9-2.4) RATIO Vitamin B12 (211-911) pg/mL Vitamin D 25-Hydroxy (29.95-100.01) ng/mL Folate (3.1-55.4) ng/mL Urine Color (Yellow) Urine Clarity (Clear) Urine pH (5.0 - 8.0) Ur Specific [place] (1.002-1.030) Urine Protein (Negative) mg/dl Urine Glucose (UA) (Normal) mg/dl Urine Ketones (Negative) mg/dl Urine Occult Blood (Negative) /ul Urine Nitrite (Negative) Urine Bilirubin (Negative) mg/dL Urine Urobilinogen (Normal) mg/dl Ur Leukocyte Esterase (Negative) /ul Urine RBC (0-5) /hpf Urine WBC (0-5) /hpf Ur Squamous Epith Cells (5-10) /hpf Ur Transition Epith Cell (0-5) /hpf Urine Bacteria (None Seen) /hpf Fine Granular Casts (0-5) /lpf Urine Mucus (<or=2+) /hpf POC Glucose (70-110) mg/dL Blood Type A POSITIVE Antibody Screen NEGATIVE Crossmatch 09/10/19 Range/Units 15:45 WBC 2.5 L (4.4-11.0) K/mm3 RBC 2.55 L (4.2-5.4) M/mm3 Hgb 7.9 L (12.0-15.0) g/dL Hct 23.8 L (37-47) % MCV 93.3 (81-99) fL MCH 31.0 (27.0-32.0) pg MCHC 33.2 (32-36) g/dL RDW Std Deviation 46.0 H (35.1-43.9) fl RDW Coeff of Chantelle 13.7 (11.6-14.6) % Plt Count 15 L* (150-450) K/mm3 MPV 10.6 (6.2-12.0) fl Neut % (Auto) Not Reportable Absolute Neuts (auto) 0.4 L (2.0-7.7) X10^3/uL Absolute Lymphs (auto) 1.90 (0.83-4.51) X10^3/uL Total Counted 100 (MANUAL DIFF) Neutrophils % (Manual) 13 L (47-70) % Band Neutrophils % 1 (0-5) % Lymphocytes % (Manual) 76 H* (19-41) % Monocytes % (Manual) 9 (0-10) % Eosinophils % (Manual) 1 (0-5) % Metamyelocytes % (0-1) % Diff Path Review Reviewed Atypical Lymphocytes 1+ % Platelet Estimate MKD DEC (ADEQ) Immature Plt Fraction (1.0-7.9) % RBC Morphology N CHROM (NORM C&C) NORMAL Anisocytosis Ovalocytes 1+ Retic Count (0.5-1.5) % Immature Retic Fraction (3.00-15.90) % Retic Hgb Equivalent (30-35) pg PT (11.7-14.9) SECONDS INR APTT (24.1-36.2) Seconds Fibrinogen (203-444) mg/dl D-Dimer Quant (PE/DVT) (0.27-0.49) FEU/ug/m Sodium (136-145) mmol/L Potassium (3.5-5.1) mmol/L Chloride (98-107) mmol/L Carbon Dioxide (21.0-32.0) mmol/L Anion Gap (5-15) BUN (7-18) mg/dL Creatinine (0.55-1.02) mg/dL Estim Creat Clear Calc ml/min Est GFR (MDRD) Af Amer (>60) mL/min Est GFR (MDRD) Non-Af (>60) mL/min BUN/Creatinine Ratio (10-20) RATIO Glucose (74-106) mg/dL Uric Acid (2.6-6.0) mg/dL Calcium (8.5-10.1) mg/dL Iron (50-170) ug/dL TIBC (250-450) ug/dL Iron Saturation (15.0-55.0) % Ferritin (8-252) ng/mL Total Bilirubin (0.20-1.00) mg/dL AST (15-37) U/L ALT (13-56) U/L Alkaline Phosphatase (45-117) U/L Lactate Dehydrogenase (84-246) U/L Total Protein (6.4-8.2) g/dL Albumin (3.2-5.0) g/dL Globulin (2.2-4.2) g/dL Albumin/Globulin Ratio (0.9-2.4) RATIO Vitamin B12 (211-911) pg/mL Vitamin D 25-Hydroxy (29.95-100.01) ng/mL Folate (3.1-55.4) ng/mL Urine Color (Yellow) Urine Clarity (Clear) Urine pH (5.0 - 8.0) Ur Specific [place] (1.002-1.030) Urine Protein (Negative) mg/dl Urine Glucose (UA) (Normal) mg/dl Urine Ketones (Negative) mg/dl Urine Occult Blood (Negative) /ul Urine Nitrite (Negative) Urine Bilirubin (Negative) mg/dL Urine Urobilinogen (Normal) mg/dl Ur Leukocyte Esterase (Negative) /ul Urine RBC (0-5) /hpf Urine WBC (0-5) /hpf Ur Squamous Epith Cells (5-10) /hpf Ur Transition Epith Cell (0-5) /hpf Urine Bacteria (None Seen) /hpf Fine Granular Casts (0-5) /lpf Urine Mucus (<or=2+) /hpf POC Glucose (70-110) mg/dL Blood Type Antibody Screen Crossmatch Diagnostic Data: Diagnostic Data Chest X-Ray 09/10/19 16:05 IMPRESSION: No acute thoracic pathology. Electronically Signed: Ranulfo Grant, at 16:32 EST Tel , Service support , Biopsy CT 09/11/19 13:00 IMPRESSION: Successful CT guided left iliac bone marrow biopsy and bone marrow aspirate, as described above. The conscious sedation protocol was followed. Electronically Signed: Vishal Mendez, at 13:52 EST , Service support , Assessment and Plan Pancytopenia R/O recurrent Lymphoma vs MDS vs Acute Leukemia. History of Non Hodgkin's Lymphoma. Suggestion: Obtain bone marrow aspiration and biopsy, CT neck/chest/abdomen/Pelvis to restage NHL. Supportive transfusions for RBC and Platelets as needed. Will follow with further suggestions based on the results. Thanks. . Medications: Prescriptions This Visit Medication Instructions Recorded Bupropion HCl [Wellbutrin Xl] 150 mg PO DAILY 09/10/19 Cyanocobalamin (Vitamin B-12) 2,500 mcg PO DAILY 09/10/19 [Vitamin B12] Denosumab [Prolia] 60 mg IM UD 09/10/19 Levothyroxine Sodium 100 mcg PO DAILY 09/10/19 Potassium (Otc) [Potassium Otc] 99 mg PO DAILY 09/10/19 Medications Added to Medication List This Visit Category Date Time Status 0.9% Normal Saline 500 ml Med 09/11/19 12:45 Active IV KVO mls/hr Ceftriaxone [Rocephin] Med 09/11/19 06:58 Active 1 gm in 50 ml IV Q24 Cholecalciferol (VIT D3) [Vitamin D] Med 09/11/19 10:00 Active 3,000 unit PO DAILY Citalopram [Celexa] Med 09/11/19 10:00 Active 20 mg PO DAILY Cyanocobalamin [Vitamin B12] Med 09/11/19 10:00 Active 2,500 mcg PO DAILY Ensure Enlive Med 09/11/19 14:00 Active 120 ml PO 4X/DAY Iron Polysaccharide Complex [Ferrex 150] Med 09/11/19 08:00 Active 150 mg PO DAILYCM Magnesium Oxide [Mag-Ox 400] Med 09/11/19 10:00 Active 400 mg PO DAILY Midazolam [Versed] Med 09/11/19 12:39 Active 1 - 2 mg IV UD PRN Tolterodine Tartrate [Detrol LA] Med 09/11/19 10:00 Active 4 mg PO DAILY buPROPion XL [Wellbutrin XL] Med 09/11/19 10:00 Active 150 mg PO DAILY fentaNYL (100mcg ampule) [Sublimaze (100mcg ampule)] Med 09/11/19 12:39 Active 25 - 50 mcg IV UD PRN Primary Care Provider: Anya Lua DO Referring Provider: - Problem List (1) History of non-Hodgkin's lymphoma Status: Chronic (2) Pancytopenia Status: Acute Code Visit Office Visits / Consults: [id number] IP Consult L5
[2019-09-12] VITALS (14 sets, daily range): BP systolic 119–129; BP diastolic 62–75; PULSE 76–139; RESP 16–18; TEMP 36.3–36.9; O2SAT 94–100
[2019-09-12] MEDS: 0.9% Saline Lock 10 ML Syringe IV (05:32)
[2019-09-12] MEDS: Levothyroxine 100 MCG Tablet PO (05:42)
[2019-09-12 05:48] LABS: Hematocrit 19.8 % (37-47); Hemoglobin 6.7 g/dL (12.0-15.0); Mean Corp Hgb Conc 33.8 g/dL (32-36); Mean Corpuscular Hgb 31.3 pg (27.0-32.0); Mean Corpuscular Volume 92.5 fL (81-99); Mean Platelet Vol. 10.5 fl (6.2-12.0); POSITIVE COUNT YES; POSITIVE DIFFERENTIAL YES; POSITIVE MORPHOLOGY YES; RBC Distribution Width CV 14.3 % (11.6-14.6); RBC Distribution Width SD 47.7 fl (35.1-43.9); Red Blood Count 2.14 M/mm3 (4.2-5.4); White Blood Count 1.5 K/mm3 (4.4-11.0)
[2019-09-12 05:51] LABS: Differential Indicated MANUAL DIFF
[2019-09-12 05:52] LABS: Platelet Count 8 K/mm3 (150-450)
[2019-09-12 06:21] LABS: Anion Gap 8 (5-15); BUN 41 mg/dL (7-18); BUN/Creat Ratio 14.7 RATIO (10-20); Calcium,Total 6.1 mg/dL (8.5-10.1); Chloride 111 mmol/L (98-107); Creatinine, Serum 2.79 mg/dL (0.55-1.02); EST Glomerular Filtration Rate 17 mL/min (>60); Est Glom Filt Rate - Afr Amer 21 mL/min (>60); Estimated Creatinine Clearance 13.42 ml/min; Glucose 80 mg/dL (74-106); Potassium 3.3 mmol/L (3.5-5.1); Sodium Level 137 mmol/L (136-145)
[2019-09-12 06:29] LABS: Blast 1 % (0-0); Eosinophil 1 % (0-5); Metamyelocyte 5 % (0-1); Monocyte 11 % (0-10); Neutrophil-Segmented 11 % (47-70); Total Cells Counted 100 (MANUAL DIFF)
[2019-09-12 06:30] LABS: Anisocytosis 1+; Hypochromasia RARE; Lymphocyte 71 % (19-41); Ovalocyte 1+; Pathologist Review May foll; Platelet Estimate MKD DEC (ADEQ); Tear Drop Cell RARE
[2019-09-12 06:31] LABS: Absolute Lymphocyte Count 1.07 X10^3/uL (0.83-4.51); Absolute Neutrophil Count 0.2 X10^3/uL (2.0-7.7); Lymphocyte # 1.07 X10^3/ul (4.0); Neutrophil # 0.17 X10^3/uL (2.7-7.7)
[2019-09-12 06:32] LABS: Monocyte# 0.17 X10^3/uL
[2019-09-12] MEDS: 0.9% Normal Saline 1,000 ML 100 ML IV (07:29)
[2019-09-12] MEDS: Iron Polysaccharide Complex 150 MG CAPSULE PO (08:29)
[2019-09-12] MEDS: Magnesium Oxide 400 MG Tablet PO (08:30)
[2019-09-12] MEDS: Citalopram 20 MG Tablet PO (08:31)
[2019-09-12] MEDS: Tolterodine Tartrate 4 MG CAP.SA PO (08:32)
[2019-09-12] MEDS: Cyanocobalamin 500 MCG Tablet 2500 MCG PO (08:33)
[2019-09-12] MEDS: buPROPion (XL) 150 MG TABLET.XL PO (08:33)
--- NOTE | 2019-09-12 08:46 | CT_ITS ---
STUDY: CT CHEST WITHOUT CONTRAST REASON FOR EXAM: Female, 83 years old. NHL recurrence, neutropenia, anemia, leukemia. Prior colostomy and colectomy, hernia repair, bowel resection. Chronic kidney disease. RADIATION DOSAGE (If Supplied By Facility): CTDIvol = ( 10.77 ) mGy, DLP = ( 352.38 ) mGycm TECHNIQUE: Transaxial imaging was performed without the administration of intravenous contrast material. Multiplanar coronal and sagittal images were reformatted. Individualized dose optimization techniques were used for this CT. COMPARISON: Comparison is made with prior examination dated March 13, 2017. FINDINGS: A left-sided portacatheter is seen. Stable 8 mm noncalcified nodule in the right upper lobe posteriorly as seen on axial image #30. Stable appearance of the increased interstitial markings in both lungs more prominent at the lung bases with areas of bronchiectasis suggestive of a chronic scarring. There is no demonstrated pleural abnormality. There are calcifications of the coronary arteries. Cardiomegaly. Normal mediastinum. Normal hilar regions. Normal unenhanced pulmonary arteries. There is dilatation of the ascending thoracic aorta with a transverse dimension of 4.5 cm. There is atherosclerotic calcification of the aortic arch with tortuosity and elongation of the aortic arch and descending thoracic aorta. Prior vertebroplasty of the T8, T10 and T11 vertebrae. Loss of height of the T6 and T7 vertebrae. There is no demonstrated abnormality of the visualized upper abdomen. CT/Chest without Contrast IMPRESSION: Stable examination. Electronically Signed: Vishal Mendez, at 10:28 EST , Service support ,
--- NOTE | 2019-09-12 08:46 | CT_ITS ---
STUDY: CT ABDOMEN AND PELVIS WITHOUT CONTRAST REASON FOR EXAM: Female, 83 years old. NHL recurrence, neutropenia, anemia, leukemia. Prior colostomy and colectomy, hernia repair, bowel resection. Chronic kidney disease. RADIATION DOSAGE (If Supplied By Facility): CTDIvol = ( 15.24 ) mGy, DLP = ( 676.82 ) mGycm TECHNIQUE: Transaxial images were obtained from the dome of the diaphragm to the symphysis pubis without oral contrast, and without intravenous contrast. Sagittal and coronal images were reconstructed. Individualized dose optimization techniques were used for this CT. COMPARISON: Comparison is made with prior examination dated January 04, 2018. FINDINGS: A left-sided portacatheter is visualized. Stable mild increased interstitial markings at the lung bases suggestive of scarring. The visualized portions of the heart are within normal limits. Normal liver. Normal gallbladder and extrahepatic biliary system. Normal spleen. Normal pancreas. Normal bilateral adrenal glands. Normal right kidney. Normal left kidney. Normal visualized stomach. Normal small intestine. A colostomy is seen in the left lower quadrant. There is evidence of a herniation of bowel at the level of the ostomy. This is unchanged. There is non-visualization of the appendix. There is diffuse atherosclerotic calcification of the abdominal aorta and its major visceral branches, without a demonstrated aneurysm. Normal inferior vena cava. Normal retroperitoneum. Normal urinary bladder. Normal abdominal wall. The patient is status post right total hip replacement. There is evidence of prior vertebroplasty of the T10 and T11 vertebrae. CT/Abdomen/Pelvis without Cont IMPRESSION: Stable examination. Electronically Signed: Vishal Mendez, at 10:25 EST , Service support ,
--- NOTE | 2019-09-12 08:46 | CT_ITS ---
STUDY: CT SOFT TISSUE NECK WITHOUT CONTRAST REASON FOR EXAM: Female, 83 years old. NHL recurrence, neutropenia, anemia, leukemia. Prior colostomy and colectomy, hernia repair, bowel resection. Chronic kidney disease. RADIATION DOSAGE (If Supplied By Facility): CTDIvol = ( 13.40 ) mGy, DLP = ( 368.08 ) mGycm TECHNIQUE: The patient was scanned in a multi-detector CT scanner. High resolution transaxial imaging was performed without the administration of intravenous contrast material. Sagittal and coronal images were reconstructed. Individualized dose optimization techniques were used for this CT. COMPARISON: None. FINDINGS: Atherosclerotic calcification of the aortic arch. Normal bilateral parotid glands. Normal bilateral manager data warehouse spaces. Normal bilateral parapharyngeal spaces. Normal bilateral carotid spaces. Normal bilateral sublingual and submandibular glands and spaces. Normal visualized nasopharynx. Normal retropharyngeal space. Normal perivertebral space. Normal visualized bilateral faucial tonsils. The visualized tongue, tongue base and oropharynx are normal. The visualized cervical lymph nodes (levels I-) are within normal size limits, and maintain normal morphology. There is no demonstrated solid or cystic mass lesion. Normal epiglottis, bilateral vallecula and hypopharynx. The pre-epiglottic and paraglottic adipose spaces are normal. Normal visualized bilateral piriform sinuses, aryepiglottic folds, vocal cords, and arytenoid-cricoid articulations. Normal subglottic trachea. Normal bilateral lobes of the thyroid gland. Normal visualized pulmonary apices. Normal visualized paranasal sinuses. There is multilevel degenerative changes of the cervical spine. CT/Soft Tissue Neck without Contr IMPRESSION: No acute abnormality is seen. Electronically Signed: Vishal Mendez, at 10:15 EST , Service support ,
--- NOTE | 2019-09-12 10:58 | PCM.PN.HOSP ---
Patient Problems: Active and Suspected Problems (Last Reviewed 05/01/19 @ 14:09 by Marilu Pierre) Pancytopenia (Acute) Reason for Visit: Severe pancytopenia. Patient does not have active bleeding. Objective: Seen and examined. Patient does not have chest pressure/pain, shortness of breath, palpitation, near syncope or syncope. Denies abdominal pain. Discussed with library consultant/oncologist Dr. Young. He want CT neck, chest, abdomen and pelvis for restaging lymphoma. Patient already had CT-guided left posterior iliac bone marrow aspiration by radiologist Dr. Dozier. Vitals/I&O's: Vital Signs Temp Pulse Resp BP Pulse Ox 97.8 F 88 18 119/65 100 09/12/19 10:07 09/12/19 10:07 09/12/19 10:07 09/12/19 10:07 09/12/19 10:07 Oxygen Flow Rate (L/min) [4] 2 Oxygen Flow Rate (L/min) [3] 2 Oxygen Flow Rate (L/min) [2] 2 Oxygen Flow Rate (L/min) [1 ( 2 Initial Baseline)] Oxygen Flow Rate (L/min) 2 Oxygen Delivery Method [4] Nasal Cannula Oxygen Delivery Method [3] Nasal Cannula Oxygen Delivery Method [2] Nasal Cannula Oxygen Delivery Method [1 ( Nasal Cannula Initial Baseline)] Oxygen Delivery Method Room Air Weight: 128 lb 0.006 oz Body Mass Index (BMI) 21.9 Intake and Output for Last 24 Hours 09/10/19 09/11/19 09/12/19 23:59 23:59 23:59 Intake Total 500 / 500 3667.91 / 3667.91 1213.66 / 1213.66 Balance 500 / 500 3667.91 / 3667.91 1213.66 / 1213.66 General: Alert, Oriented x3, Cooperative HEENT: Atraumatic, PERRLA, EOMI, Normocephalic Neck: Supple, No JVD, Negative Carotid Bruits Lungs: No rhonchi, No wheeze, No rales, Diminished - Air entry diminished in bilateral lung bases, Rales - Fine rales present in bilateral lung bases. Cardiovascular: Regular rate, Regular Rhythm, Normal S1, Normal S2, No murmurs Abdomen: Bowel Sounds Present, Soft, Non Tender, Non-Distended Extremities: No edema, Capillary Refill Less than 3 Seconds Skin: No rashes, No breakdown Musculoskeletal: No Tenderness to Palpation of Joints or Extremities, Arthritic Changes Neurological: Cranial nerves II-XII grossly intact Psych/Mental Status: Normal Affect, Appropriate Microbiology Past 72 Hours 09/11/19 16:20 Stool Stool Occult Blood (AZUL) - Final Laboratory Results 09/10/19 15:45: Diff Path Review Reviewed 09/10/19 15:45: Crossmatch See Detail 09/10/19 15:45: Crossmatch See Detail 09/10/19 15:45: Crossmatch See Detail 09/11/19 06:25: Diff Path Review Reviewed 09/11/19 10:05: D-Dimer Quant (PE/DVT) 2.31 H* 09/11/19 10:05: Iron 89, TIBC 127 L, Iron Saturation 70.1 H, Ferritin 622 H, Lactate Dehydrogenase 198, Folate 11.60 09/11/19 10:05: Haptoglobin Pending 09/12/19 05:30: WBC 1.5 L, RBC 2.14 L, Hgb 6.7 L, Hct 19.8 L, MCV 92.5, MCH 31.3, MCHC 33.8, RDW Std Deviation 47.7 H, RDW Coeff of Chantelle 14.3, Plt Count 8 L*, MPV 10.5, Neut % (Auto) Not Reportable, Absolute Neuts (auto) 0.2 L, Absolute Lymphs (auto) 1.07, Total Counted 100, Neutrophils % (Manual) 11 L, Lymphocytes % (Manual) 71 H*, Monocytes % (Manual) 11 H, Eosinophils % (Manual) 1, Metamyelocytes % 5 H, Blast Cells % 1 H*, Diff Path Review May foll, Platelet Estimate MKD DEC, Hypochromasia RARE, Anisocytosis 1+, Tear Drop Cells RARE, Ovalocytes 1+ 09/12/19 05:30: Sodium 137, Potassium 3.3 L, Chloride 111 H, Carbon Dioxide 18.0 L, Anion Gap 8, BUN 41 H, Creatinine 2.79 H, Estim Creat Clear Calc 13.42, Est GFR (MDRD) Af Amer 21 L, Est GFR (MDRD) Non-Af 17 L, BUN/Creatinine Ratio 14.7, Glucose 80, Calcium 6.1 L* Current Medications Bupropion HCl (Wellbutrin Xl) 150 mg PO DAILY [facility] Last Admin: 09/12/19 08:33 Dose: 150 mg Documented by: Cholecalciferol (Vitamin D) 3,000 unit PO DAILY [facility] Last Admin: 09/12/19 08:32 Dose: 3,000 unit Documented by: Citalopram Hydrobromide (Celexa) 20 mg PO DAILY [facility] Last Admin: 09/12/19 08:31 Dose: 20 mg Documented by: Cyanocobalamin (Vitamin B12) 2,500 mcg PO DAILY [facility] Last Admin: 09/12/19 08:33 Dose: 2,500 mcg Documented by: Sodium Chloride () 250 mls @ 15 mls/hr IV .[id number] PRN PRN Reason: Saline Flush Sodium Chloride () 250 mls @ 15 mls/hr IV .[id number] PRN PRN Reason: Additional IVPB Infusion Dextrose (Dextrose 10%-Water) 250 mls @ 999 mls/hr IV .Q16M PRN; Protocol PRN Reason: HYPOGLYCEMIA Ceftriaxone Sodium (Rocephin) 1 gm in 50 mls @ 100 mls/hr IV Q24 [facility] Last Infusion: 09/11/19 08:06 Dose: Infused Documented by: Levothyroxine Sodium (Synthroid) 100 mcg PO DAILY@0600 [facility] Last Admin: 09/12/19 05:42 Dose: 100 mcg Documented by: Magnesium Oxide (Mag-Ox 400) 400 mg PO DAILY [facility] Last Admin: 09/12/19 08:30 Dose: 400 mg Documented by: Nutritional Formula (Lactose Free) (Ensure Enlive) 120 ml PO 4X/DAY [facility] Last Admin: 09/12/19 08:36 Dose: 120 ml Documented by: Polysaccharide Iron Complex (Ferrex 150) 150 mg PO DAILYCM [facility] Last Admin: 09/12/19 08:29 Dose: 150 mg Documented by: Sodium Chloride () 10 - 40 ml IV UD PRN PRN Reason: Port-a-Cath (VAD) Flush Last Admin: 09/12/19 05:32 Dose: 30 ml Documented by: Tolterodine Tartrate (Detrol La) 4 mg PO DAILY [facility] Last Admin: 09/12/19 08:32 Dose: 4 mg Documented by: STROKE Vital Signs/Narrative: Vital Signs Temp Pulse Resp BP Pulse Ox 09/12/19 10:07 97.8 F 88 18 119/65 100 09/12/19 08:15 76 09/12/19 07:30 99 Medical Necessity - Tobacco Use Smoking Status: Never smoker Tobacco Use: Secondhand Assessment/Plan All Active Problems (Last Reviewed 05/01/19 @ 14:09 by Marilu Pierre) Pancytopenia (Acute) SOB (shortness of breath) (Resolved) SBO (small bowel obstruction) (Acute) Peristomal hernia (Acute) Partial obstruction of small intestine (Acute) Abdominal pain (Acute) Gastroduodenitis (Resolved) The patient is a 83-year-old female is admitted for pancytopenia. She has history of diffuse large B-cell lymphoma, CD20 positive, stage II diagnosed in 2003 status post R-CHOP therapy x6 cycle, completed in September 2004. 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 Had out CEOP x6 cycle in 2010?2011. Rituximab maintenance from 2011 2012. 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 Echo in July 2017 EF 55%. 1. Pancytopenia probable etiologies recurrence of NHL or acute leukemia: Discussed with Dr. Young. Iron studies, B12, ferritin, fibrinogen, d-dimer, FDP, hemolytic anemia markers, reticulocyte panel ordered. D-dimer elevated, expected, probably secondary to increased low fibrinogen level and thrombocytopenia. Stool for occult blood ordered. Bone marrow biopsy was done 09/12/2019: Pancytopenia remains. Platelet count further dropped to 8000. H&H 16.02/15. WBC 1.5 thousand with ANC 200. Discussed with Dr. Young. He ordered CT neck, chest, abdomen and pelvis without contrast. Earlier as per H&P, there are few schistocytes found but LDH, total bili normal which goes against hemolytic anemia to which is expected in TTP. This was discussed with Dr. Grimes in [facility] who thinks patient does not have TTP and does not need transfer. Goal hemoglobin 7 g and platelet 10,000. Avoid over transfusion as this not going to change course of disease but will enhance autoantibody and fluid overload. Neupogen is contraindicated if patient has leukemia therefore wait for bone marrow biopsy. 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 Calcium 6.1. Fibrinogen 396. D-dimer elevated 2.31 expected. Stool for occult blood negative CT neck, chest and abdomen pelvis were done and shows a stable examination. Patient has colostomy in left lower quadrant which is parastomal hernia, stable. 2. SANG on CKD stage III- Elevated BUN/Cr. Improvement during hospital course. Hyponatremia resolved. IV fluid discontinued as patient was getting fluid overload. Lasix after 1 unit of transfusion. 3. Hx DVT/PE/Factor V -Eliquis held secondary to severe thrombocytopenia, platelet count 8000 and severe anemia 4. Hypothyroidism - continue synthroid - check tsh. DVT ppx: Bilateral SCDs E. coli cystitis/lower UTI: UA is positive of nitrite, 25-50 cells and 3+ bacteria. Preliminary culture shows more than 100,000 presumptive E. coli. On IV ceftriaxone. Total time of the visit including total time spent in counseling or coordination of care, (more than 50% of the total time, spent in obtaining medical information from nurses and other ancillary care providers), consent with consultants and patient, review of labs and imaging is 40 minutes Microbiology Past 72 Hours 09/10/19 18:11 Urine, Clean Catch Urine Culture - Preliminary Presumptive E. coli 09/11/19 16:20 Stool Stool Occult Blood (AZUL) - Final Laboratory Results 09/10/19 15:45: Diff Path Review Reviewed 09/10/19 15:45: Crossmatch See Detail 09/10/19 15:45: Crossmatch See Detail 09/10/19 15:45: Crossmatch See Detail 09/11/19 06:25: Diff Path Review Reviewed 09/11/19 10:05: Haptoglobin Pending 09/12/19 05:30: WBC 1.5 L, RBC 2.14 L, Hgb 6.7 L, Hct 19.8 L, MCV 92.5, MCH 31.3, MCHC 33.8, RDW Std Deviation 47.7 H, RDW Coeff of Chantelle 14.3, Plt Count 8 L*, MPV 10.5, Neut % (Auto) Not Reportable, Absolute Neuts (auto) 0.2 L, Absolute Lymphs (auto) 1.07, Total Counted 100, Neutrophils % (Manual) 11 L, Lymphocytes % (Manual) 71 H*, Monocytes % (Manual) 11 H, Eosinophils % (Manual) 1, Metamyelocytes % 5 H, Blast Cells % 1 H*, Diff Path Review May foll, Platelet Estimate MKD DEC, Hypochromasia RARE, Anisocytosis 1+, Tear Drop Cells RARE, Ovalocytes 1+ 09/12/19 05:30: Sodium 137, Potassium 3.3 L, Chloride 111 H, Carbon Dioxide 18.0 L, Anion Gap 8, BUN 41 H, Creatinine 2.79 H, Estim Creat Clear Calc 13.42, Est GFR (MDRD) Af Amer 21 L, Est GFR (MDRD) Non-Af 17 L, BUN/Creatinine Ratio 14.7, Glucose 80, Calcium 6.1 L* Clinical Impression(s) from Imaging Studies Chest X-Ray 09/10/19 16:05 IMPRESSION: No acute thoracic pathology. Biopsy CT 09/11/19 13:00 IMPRESSION: Successful CT guided left iliac bone marrow biopsy and bone marrow aspirate, as described above. The conscious sedation protocol was followed. Abdomen/Pelvis CT 09/12/19 08:46 IMPRESSION: Stable examination. Chest CT 09/12/19 08:46 IMPRESSION: Stable examination. Soft Tissue Neck CT 09/12/19 08:46 IMPRESSION: No acute abnormality is seen. Code Visit Inpatient E&M: 63720 Subs Hosp L3
[2019-09-12] MEDS: Ceftriaxone 1 GM/50 ML BAG IV (11:23)
[2019-09-12] MEDS: Furosemide 40 MG/4 ML Vial IV (16:12)
[2019-09-12 16:43] LABS: Haptoglobin 166 mg/dL (41-333)
--- NOTE | 2019-09-12 17:47 | NURSING ---
late entry: 1400 original port deaccessed d/t leaking. port was reaccessed and able to see blood return.
[2019-09-13] VITALS: PULSE 79
[2019-09-13 02:43] VITALS: BP 125/69; PULSE 91; RESP 16; TEMP 36.9; O2SAT 97
[2019-09-13 04:00] VITALS: PULSE 73
[2019-09-13] MEDS: 0.9% Saline Lock 10 ML Syringe IV ×2 (05:27→11:07)
[2019-09-13] MEDS: Levothyroxine 100 MCG Tablet PO (05:27)
[2019-09-13 05:38] LABS: Hematocrit 26.8 % (37-47); Mean Corp Hgb Conc 33.6 g/dL (32-36); Mean Corpuscular Hgb 30.7 pg (27.0-32.0); Mean Corpuscular Volume 91.5 fL (81-99); Mean Platelet Vol. 8.9 fl (6.2-12.0); POSITIVE COUNT YES; POSITIVE DIFFERENTIAL YES; POSITIVE MORPHOLOGY YES; Platelet Count 68 K/mm3 (150-450); RBC Distribution Width CV 14.1 % (11.6-14.6); RBC Distribution Width SD 47.7 fl (35.1-43.9); Red Blood Count 2.93 M/mm3 (4.2-5.4); White Blood Count 2.1 K/mm3 (4.4-11.0)
[2019-09-13 05:40] LABS: Differential Indicated MANUAL DIFF
[2019-09-13 06:04] LABS: Anisocytosis 1+; Atypical Lymphocyte 1+ %; Blast 3 % (0-0); Eosinophil 1 % (0-5); Lymphocyte 67 % (19-41); Metamyelocyte 3 % (0-1); Monocyte 12 % (0-10); Neutrophil-Band 1 % (0-5); Neutrophil-Segmented 13 % (47-70); Platelet Estimate MOD DEC (ADEQ); Total Cells Counted 100 (MANUAL DIFF)
[2019-09-13 06:05] LABS: Ovalocyte RARE
[2019-09-13 06:06] LABS: Absolute Lymphocyte Count 1.39 X10^3/uL (0.83-4.51); Absolute Neutrophil Count 0.3 X10^3/uL (2.0-7.7); Lymphocyte # 1.39 X10^3/ul (4.0); Monocyte# 0.25 X10^3/uL; Neutrophil # 0.29 X10^3/uL (2.7-7.7)
[2019-09-13 06:37] LABS: AST(SGOT) 13 U/L (15-37); Alanine Aminotransfer ALT/SGPT 13 U/L (13-56); Albumin, Serum 2.7 g/dL (3.2-5.0); Alkaline Phosphatase 48 U/L (45-117); Anion Gap 9 (5-15); BUN 41 mg/dL (7-18); BUN/Creat Ratio 14.7 RATIO (10-20); Bilirubin, Direct 0.12 mg/dL (0.00-0.30); Calcium,Total 7.4 mg/dL (8.5-10.1); Chloride 110 mmol/L (98-107); Creatinine, Serum 2.78 mg/dL (0.55-1.02); EST Glomerular Filtration Rate 17 mL/min (>60); Est Glom Filt Rate - Afr Amer 21 mL/min (>60); Estimated Creatinine Clearance 13.47 ml/min; Globulin 4.4 g/dL (2.2-4.2); Glucose 79 mg/dL (74-106); Potassium 3.3 mmol/L (3.5-5.1); Protein, Total 7.1 g/dL (6.4-8.2); Sodium Level 137 mmol/L (136-145); T4 Free Direct 1.21 ng/dL (0.76-1.46); Uric Acid 7.1 mg/dL (2.6-6.0)
[2019-09-13 07:01] VITALS: PULSE 69
[2019-09-13 07:54] VITALS: O2SAT 97
[2019-09-13 08:06] VITALS: BP 133/71; PULSE 72; RESP 18; TEMP 36.5; O2SAT 98
[2019-09-13 09:20] LABS: Pathologist Review Reviewed
--- NOTE | 2019-09-13 09:37 | PCM.DC ---
- Discharge Diagnoses Current Active Problems: Current Active and Chronic Problems (Last Reviewed 05/01/19 @ 14:09 by Marilu Pierre) Pancytopenia (Acute) History of non-Hodgkin's lymphoma (Chronic) You will use the following diet at home:: Regular Your food should be the consistency of: Regular Discharge Activity: May Not Drive Weight Bearing Status: Weight bearing as tolerated Call your doctor if you observe: Fever of 101 or Higher, Coldness, Increased Pain, Numbness or Tingling, Inability to urinate, Inability to have a bowel movement, Shortness of breath, Dizziness, Fainting spells, Swelling in the ankles, Chest pain, Prolonged hiccoughing, Increased palpitations (irregular heartbeat) Additional Instructions: Hold Eliquis until she sees Dr. Young 1 week. Allergies/Adverse Reactions: Allergies bee venom protein (honey bee) Allergy (Severe, Verified 09/10/19 14:25) Anaphylaxis niacin Allergy (Severe, Verified 09/10/19 14:25) Anaphylaxis swelling of face and throat Medications to take at Discharge Citalopram [Celexa] 20 mg PO DAILY 04/24/17 Cholecalciferol (VIT D3) [Vitamin D3] 3,000 unit PO DAILY 06/21/17 Iron Polysaccharide Complex [Ferrex 150] 150 mg PO DAILYCM 06/21/17 Magnesium Oxide [Mag-Ox 400] 400 mg PO DAILY 06/26/17 Solifenacin Succinate [Vesicare] 10 mg PO DAILY 01/14/19 Bupropion HCl [Wellbutrin Xl] 150 mg PO DAILY 09/10/19 Denosumab [Prolia] 60 mg IM UD 09/10/19 Levothyroxine Sodium 100 mcg PO DAILY 09/10/19 Potassium (Otc) [Potassium OTC] 99 mg PO DAILY 09/10/19 Apixaban [Eliquis] 5 mg PO BID #74 tab 09/13/19 Ciprofloxacin [Cipro] 500 mg PO BID #10 tab 09/13/19 The following prescriptions were given: Ciprofloxacin [Cipro] 500 mg PO BID #10 tab Transmission Status: Received by [employer] [employer] [facility] Primary Care Physician: Anya Lua DO [Primary Care Provider] - Please follow up with your Primary Care Physician in: in 1-2 week Test Results: Test results from this visit will be discussed in further detail at your follow-up appointment, if applicable. Please Follow Up With: Keaton Young MD When: in 1 week
[2019-09-13] MEDS: Tolterodine Tartrate 4 MG CAP.SA PO (09:43)
[2019-09-13] MEDS: buPROPion (XL) 150 MG TABLET.XL PO (09:44)
[2019-09-13] MEDS: Iron Polysaccharide Complex 150 MG CAPSULE PO (09:44)
[2019-09-13] MEDS: Magnesium Oxide 400 MG Tablet PO (09:44)
[2019-09-13] MEDS: Citalopram 20 MG Tablet PO (09:44)
[2019-09-13] MEDS: Ceftriaxone 1 GM/50 ML BAG IV (09:44)
--- NOTE | 2019-09-13 09:47 | PCM.DC.SUM ---
Discharge Date and Diagnosis Date of Admission: 09/10/19 Date of Discharge: 09/13/19 - Primary Discharge Diagnosis Active and Suspected Problems (Last Reviewed 05/01/19 @ 14:09 by Marilu Pierre) Pancytopenia (Acute) - Secondary Discharge Diagnosis Chronic Problems (Last Reviewed 05/01/19 @ 14:09 by Marilu Pierre) Anemia (Chronic) History of non-Hodgkin's lymphoma (Chronic) Non-Hodgkin lymphoma (Chronic) History of pulmonary embolism (Chronic) Colostomy status (Chronic) Collagenous colitis (Chronic) Factor V Leiden (Chronic) Anemia in chronic kidney disease (Chronic) Follicular lymphoma (Chronic) Acquired hypothyroidism (Chronic) Hospital Course and Treatment Operations: None Summary of Care Provided: The patient is a 83-year-old female is admitted for pancytopenia. She has history of diffuse large B-cell lymphoma, CD20 positive, stage II diagnosed in 2003 status post R-CHOP therapy x6 cycle, completed in September 2004. 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 Had out CEOP x6 cycle in 2010?2011. Rituximab maintenance from 2011 2012. 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 Echo in July 2017 EF 55%. [] 1. Pancytopenia probable etiologies recurrence of NHL or acute leukemia: Discussed with Dr. Young. Iron studies, B12, ferritin, fibrinogen, d-dimer, FDP, hemolytic anemia markers, reticulocyte panel ordered. D-dimer elevated, expected, probably secondary to increased low fibrinogen level and thrombocytopenia. Stool for occult blood ordered. Bone marrow biopsy was done. Report is pending. 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 Calcium 6.1. Fibrinogen 396. D-dimer elevated 2.31 expected. Stool for occult blood negative. Haptoglobin and LDH normal therefore hemolytic anemia unlikely. CT neck, chest and abdomen pelvis were done and shows a stable examination. Patient has colostomy in left lower quadrant which is parastomal hernia, stable. Hematology profile improved today. WBC 2.1 thousand, H&H 9/26.8 and platelet count 68,000. Blast cells 3%, band neutrophils 1%. Discussed with Dr Young and he agrees with the discharge. Hold Eliquis until patient sees Dr Young next week. 2. SANG on CKD stage III- Elevated BUN/Cr. Improvement during hospital course. Hyponatremia resolved. IV fluid discontinued as patient was getting fluid overload. Lasix 40 mg was given. Mild lung bases crepitation. Advised to continue incentive spirometry. 3. Hx DVT/PE/Factor V -Eliquis held secondary to severe thrombocytopenia, platelet count 8000 and severe anemia 4. Hypothyroidism - continue synthroid -TSH 5.20. Free T4 1.21. Levothyroxine dose increased 212 mcg daily. DVT ppx: Bilateral SCDs E. coli cystitis/lower UTI: UA is positive of nitrite, 25-50 cells and 3+ bacteria. Preliminary culture shows more than 100,000 presumptive E. coli. On IV ceftriaxone. Dr Young wanted Cipro therefore discharged on Cipro 500 mg twice daily for 5 days. Discharge medication reconciliation done. Discharge follow-up instructions completed. Discharge process discussed with the patient and all questions were answered to patient's satisfaction. Follow-up with the bone marrow biopsy with Dr. De La Cruz next week. Total time spent, exact 35 minutes on discharge meds reconciliation, examination, coordination of care with nurses and ancillary staff, review of imaging and blood test and discussion with the patient on follow-up instructions Microbiology Past 72 Hours 09/10/19 18:11 Urine, Clean Catch Urine Culture - Final Presumptive E. coli 09/11/19 16:20 Stool Stool Occult Blood (AZUL) - Final Laboratory Results 09/10/19 15:45: Crossmatch See Detail 09/10/19 15:45: Crossmatch See Detail 09/11/19 10:05: Haptoglobin 166 09/11/19 10:05: Miscellaneous Test 09/13/19 05:25: WBC 2.1 L, RBC 2.93 L, Hgb 9.0 L, Hct 26.8 L, MCV 91.5, MCH 30.7, MCHC 33.6, RDW Std Deviation 47.7 H, RDW Coeff of Chnatelle 14.1, Plt Count 68 L, MPV 8.9, Neut % (Auto) Not Reportable, Absolute Neuts (auto) 0.3 L, Absolute Lymphs (auto) 1.39, Total Counted 100, Neutrophils % (Manual) 13 L, Band Neutrophils % 1, Lymphocytes % (Manual) 67 H, Monocytes % (Manual) 12 H, Eosinophils % (Manual) 1, Metamyelocytes % 3 H, Blast Cells % 3 H*, Diff Path Review Reviewed, Atypical Lymphocytes 1+, Platelet Estimate MOD DEC, Anisocytosis 1+, Ovalocytes RARE 09/13/19 05:25: Sodium 137, Potassium 3.3 L, Chloride 110 H, Carbon Dioxide 18.0 L, Anion Gap 9, BUN 41 H, Creatinine 2.78 H, Estim Creat Clear Calc 13.47, Est GFR (MDRD) Af Amer 21 L, Est GFR (MDRD) Non-Af 17 L, BUN/Creatinine Ratio 14.7, Glucose 79, Uric Acid 7.1 H, Calcium 7.4 L, Total Bilirubin 0.30, Direct Bilirubin 0.12, AST 13 L, ALT 13, Alkaline Phosphatase 48, Total Protein 7.1, Albumin 2.7 L, Globulin 4.4 H, TSH 5.20 H, Free T4 1.21 Subjective: Patient does not have symptoms of chest pain or shortness of breath. No cough or fever or chills, tachypnea or tachycardia. Blood pressure is stable. - Physical Exam Vitals/I&O's: Vital Signs Temp Pulse Resp BP Pulse Ox 97.7 F L 72 18 133/71 H 98 09/13/19 08:06 09/13/19 08:06 09/13/19 08:06 09/13/19 08:06 09/13/19 08:06 Oxygen Flow Rate (L/min) [4] 2 Oxygen Flow Rate (L/min) [3] 2 Oxygen Flow Rate (L/min) [2] 2 Oxygen Flow Rate (L/min) [1 ( 2 Initial Baseline)] Oxygen Flow Rate (L/min) 2 Oxygen Delivery Method [4] Nasal Cannula Oxygen Delivery Method [3] Nasal Cannula Oxygen Delivery Method [2] Nasal Cannula Oxygen Delivery Method [1 ( Nasal Cannula Initial Baseline)] Oxygen Delivery Method Room Air Weight: 128 lb 0.006 oz Body Mass Index (BMI) 21.9 Intake and Output for Last 24 Hours 02/12/20 02/13/20 02/14/20 23:59 23:59 23:59 Intake Total 3667.91 / 3667.91 1891.66 / 189. 60 Balance 3667.91 / 3667.91 189. / 1890. 60 60 General: Alert, Oriented x3, Cooperative HEENT: Atraumatic, PERRLA, EOMI, Normocephalic Neck: Supple, No JVD, Negative Carotid Bruits Lungs: No rhonchi, No wheeze, No rales, Diminished, Rales - Mild bilateral lung bases crepitations present. Cardiovascular: Regular rate, Regular Rhythm, Normal S1, Normal S2, No murmurs Abdomen: Bowel Sounds Present, Soft, Non Tender, Non-Distended Extremities: Capillary Refill Less than 3 Seconds, Edema - Minimal edema in lower legs, ankle region Skin: No rashes, No breakdown Musculoskeletal: No Tenderness to Palpation of Joints or Extremities, Arthritic Changes, Tenderness - Tenderness much improved on the left posterior iliac at bone marrow biopsy site. No hematoma Neurological: Cranial nerves II-XII grossly intact Psych/Mental Status: Normal Affect, Appropriate Microbiology Past 72 Hours 09/10/19 18:11 Urine, Clean Catch Urine Culture - Final Presumptive E. coli 09/11/19 16:20 Stool Stool Occult Blood (AZUL) - Final Laboratory Results 09/10/19 15:45: Crossmatch See Detail 09/10/19 15:45: Crossmatch See Detail 09/11/19 10:05: Haptoglobin 166 09/11/19 10:05: Miscellaneous Test 09/12/19 10:00: Miscellaneous Test Pending 09/12/19 10:00: Miscellaneous Test Pending 09/12/19 10:00: Miscellaneous Test Pending 09/12/19 10:00: Miscellaneous Test Pending 09/13/19 05:25: WBC 2.1 L, RBC 2.93 L, Hgb 9.0 L, Hct 26.8 L, MCV 91.5, MCH 30.7, MCHC 33.6, RDW Std Deviation 47.7 H, RDW Coeff of Chantelle 14.1, Plt Count 68 L, MPV 8.9, Neut % (Auto) Not Reportable, Absolute Neuts (auto) 0.3 L, Absolute Lymphs (auto) 1.39, Total Counted 100, Neutrophils % (Manual) 13 L, Band Neutrophils % 1, Lymphocytes % (Manual) 67 H, Monocytes % (Manual) 12 H, Eosinophils % (Manual) 1, Metamyelocytes % 3 H, Blast Cells % 3 H*, Diff Path Review Reviewed, Atypical Lymphocytes 1+, Platelet Estimate MOD DEC, Anisocytosis 1+, Ovalocytes RARE 09/13/19 05:25: Sodium 137, Potassium 3.3 L, Chloride 110 H, Carbon Dioxide 18.0 L, Anion Gap 9, BUN 41 H, Creatinine 2.78 H, Estim Creat Clear Calc 13.47, Est GFR (MDRD) Af Amer 21 L, Est GFR (MDRD) Non-Af 17 L, BUN/Creatinine Ratio 14.7, Glucose 79, Uric Acid 7.1 H, Calcium 7.4 L, Total Bilirubin 0.30, Direct Bilirubin 0.12, AST 13 L, ALT 13, Alkaline Phosphatase 48, Total Protein 7.1, Albumin 2.7 L, Globulin 4.4 H, TSH 5.20 H, Free T4 1.21 Current Medications Bupropion HCl (Wellbutrin Xl) 150 mg PO DAILY [facility] Last Admin: 09/13/19 09:44 Dose: 150 mg Documented by: Cholecalciferol (Vitamin D) 3,000 unit PO DAILY [facility] Last Admin: 09/13/19 09:44 Dose: 3,000 unit Documented by: Citalopram Hydrobromide (Celexa) 20 mg PO DAILY [facility] Last Admin: 09/13/19 09:44 Dose: 20 mg Documented by: Heparin Sodium (Beef Lung) () 50 units IV UD PRN PRN Reason: Port-a-Cath (VAD)Heparin Flush Sodium Chloride () 250 mls @ 15 mls/hr IV .[id number] PRN PRN Reason: Saline Flush Sodium Chloride () 250 mls @ 15 mls/hr IV .[id number] PRN PRN Reason: Additional IVPB Infusion Dextrose (Dextrose 10%-Water) 250 mls @ 999 mls/hr IV .Q16M PRN; Protocol PRN Reason: HYPOGLYCEMIA Ceftriaxone Sodium (Rocephin) 1 gm in 50 mls @ 100 mls/hr IV Q24 [facility] Last Admin: 09/13/19 09:44 Dose: 100 mls/hr Documented by: Levothyroxine Sodium (Synthroid) 100 mcg PO DAILY@0600 [facility] Last Admin: 09/13/19 05:27 Dose: 100 mcg Documented by: Magnesium Oxide (Mag-Ox 400) 400 mg PO DAILY [facility] Last Admin: 09/13/19 09:44 Dose: 400 mg Documented by: Nutritional Formula (Lactose Free) (Ensure Enlive) 120 ml PO 4X/DAY [facility] Last Admin: 09/13/19 09:44 Dose: 120 ml Documented by: Polysaccharide [facility] ([facility] 150) [facility] Admin: 09/13/19 09:44 Dose: 150 mg Documented by: Sodium Chloride () 10 - 40 ml IV UD PRN PRN Reason: Port-a-Cath (VAD) Flush Last Admin: 09/13/19 05:27 Dose: 20 ml Documented by: Sodium Chloride (0.9% Nacl (Sterile) Posiflush) 10 - 40 ml IV UD PRN PRN Reason: Port access or dressing change Tolterodine Tartrate (Detrol La) 4 mg PO DAILY [facility] Last Admin: 09/13/19 09:43 Dose: 4 mg Documented by: Discharge Activity: May Not Drive Weight Bearing Status: Weight bearing as tolerated Call your doctor if you observe: Fever of 101 or Higher, Coldness, Increased Pain, Numbness or Tingling, Inability to urinate, Inability to have a bowel movement, Shortness of breath, Dizziness, Fainting spells, Swelling in the ankles, Chest pain, Prolonged hiccoughing, Increased palpitations (irregular heartbeat) Home Medications: Medications to take at Discharge Citalopram [Celexa] 20 mg PO DAILY 04/24/17 Cholecalciferol (VIT D3) [Vitamin D3] 3,000 unit PO DAILY 06/21/17 Iron Polysaccharide Complex [Ferrex 150] 150 mg PO DAILY 06/21/17 Magnesium Oxide [Mag-Ox 400] 400 mg PO DAILY 06/26/17 Solifenacin Succinate [Vesicare] 10 mg PO DAILY 01/14/19 Bupropion HCl [Wellbutrin Xl] 150 mg PO DAILY 09/10/19 Denosumab [Prolia] 60 mg IM UD 09/10/19 Levothyroxine Sodium 100 mcg PO DAILY 09/10/19 Potassium (Otc) [Potassium OTC] 99 mg PO DAILY 09/10/19 Apixaban [Eliquis] 5 mg PO BID #74 tab 09/13/19 Ciprofloxacin [Cipro] 500 mg PO BID #10 tab 09/13/19 Following Prescrptions Were Given to Patient: Ciprofloxacin [Cipro] 500 mg PO BID #10 tab Transmission Status: Received by [employer] [facility] Primary Care Physician: Anya Lua DO [Primary Care Provider] - Please follow up with your Primary Care Physician in: in 1-2 week Please Follow Up With: Keaton Young MD When: in 1 week Medical Necessity - Tobacco Use Smoking Status: Never smoker Tobacco Use: Secondhand Meaningful Use Info Meaningful Use Diagnoses (Choose all that apply): None applicable Code Visit Inpatient E&M: 26225 Disch Hosp
--- NOTE | 2019-09-13 09:55 | CASEMGMT ---
MELY CM in to follow-up with patient regarding discharge needs. Patient states she is doing well and has no needs or concerns going home. Patient doing well ambulating in room and declined therapy.
--- NOTE | 2019-09-16 14:10 | CASEMGMT ---
MELY AVITIA DC PHONE CALL DC DATE: 09.13.2019 DC Disposition: Home Diagnosis on Discharge: Pancytopenia LACE/STRATA: 06/02 Intro role of CM to patient. Pt states she is doing well, no concerns. No questions re: medications, f/u or instructions. No care improvement suggestions were given. Jose Ramon JOHNSONN RN AC
[2019-09-17 12:34] LABS: Bone Marrow Aspiraton SEE PATHOLOGY REPORT
== END 2019-09-13 12:11 | disposition home or self-care (01) | DRG 835 ==
LOC: ED 15:25 → MS3 17:37
PROVIDERS: Admitting Provider Student in an Organized Health Care Education/Training Program; Emergency Provider Emergency Medicine; PCP Internal Medicine; Visit Provider Internal Medicine
DX: C95.00 Acute leukemia of unspecified cell type not having achieved remission (principal); D61.818 Other pancytopenia; N17.9 Acute kidney failure, unspecified; C85.90 Non-Hodgkin lymphoma, unspecified, unspecified site; E87.1 Hypo-osmolality and hyponatremia; D68.51 Activated protein C resistance; E03.9 Hypothyroidism, unspecified; N18.3 Chronic kidney disease, stage 3 (moderate); N30.90 Cystitis, unspecified without hematuria; B96.20 Unspecified Escherichia coli [E. coli] as the cause of diseases classified elsewhere; Z93.3 Colostomy status; Z79.01 Long term (current) use of anticoagulants; Z86.711 Personal history of pulmonary embolism; Z92.21 Personal history of antineoplastic chemotherapy; Z90.49 Acquired absence of other specified parts of digestive tract; Z86.718 Personal history of other venous thrombosis and embolism; D63.1 Anemia in chronic kidney disease
CPT/HCPCS: 36415; 36591; 70490; 71046; 71250; 74176; 77012; 80048; 80053; 80076; 81001; 82274; 82306; 82607; 82728; 82746; 82962; 83010; 83540; 83550; 83615; 84439; 84443; 84550; 85025; 85045; 85379; 85384; 85610; 85730; 86644; 86850; 86900; 86901; 86920; 86965; 87086; 87088; 87186; 88305; 88311; 88313; 88341; 88342; 93005; 99156; 99285; J7030; J7040; P9016; P9035; A4216; J0610; J1940

== ENCOUNTER 2019-09-23 16:37 | Inpatient (IN) | payer MEDICARE, OTHER, SELFPAY ==
[2019-09-23] VITALS (7 sets, daily range): BP systolic 106–148; BP diastolic 60–88; PULSE 82–100; RESP 14–18; TEMP 36.7–37.2; O2SAT 93–100; BMI 21.9; BMI 21.6
--- NOTE | 2019-09-23 17:32 | ED.DCSUM_ITS ---
- ER Visit Summary Date of Service: 09/23/19 Chief Complaint: Low blood counts and low platelets History of Present Illness: The patient is a 83 F recently diagnosed with acute leukemia. He has been transfused and I believe given platelets. She was sent in today by her pilates coordinator for transfusion of platelets again. Patient states she actually feels pretty well. She denies any bleeding. She is currently on Eliquis. She denies any nausea, vomiting, diarrhea or fever. No melena. No hematemesis. Physical Examination: Older female no acute distress vital signs stable afebrile. H EENT exam unremarkable. Neck nontender no lymphadenopathy. Lungs clear to auscultation bilaterally. Heart regular rate and rhythm no murmur. Abdomen soft and nontender normal bowel sounds no peritoneal signs. She does have a colostomy. Extremities moves all 4. Calves nontender no edema. Neurologically she is awake and alert with no focal motor deficits. Skin is slightly pale. There is not significant bruising. Test Results: Patient had labs done earlier today her white count was 1. Hemoglobin 8.5 which is her recent baseline and her platelet count was 7000. Chemistries unremarkable gap of 8 BUN of 41 creatinine 2.59 she has renal insufficiency. Emergency Department Course and Treatment: I spoke to her pilates coordinator Dr. Young and the hospitalist. She will be admitted to [facility] and receive platelet transfusion. I have spoken to the blood bank and that is ordered. Treatment Plan: Admission for platelet transfusion Disposition: Admission Impression: Acute pancytopenia Acute leukemia Requiring platelet transfusion This note was generated with [employer] dictation software. It may contain incorrect words, spelling, and punctuation that were not noted in review of the chart prior to signing ED Disposition - Plan for ED Patient: Referrals: Anya Lua DO [Primary Care Provider] -
--- NOTE | 2019-09-23 18:04 | PCM.HP.STD ---
Problem List (1) Pancytopenia Status: Acute (2) Acute leukemia Status: Acute Qualifiers: (3) History of non-Hodgkin's lymphoma Status: Chronic (4) Non-Hodgkin lymphoma Status: Chronic (5) History of pulmonary embolism Status: Chronic (6) Colostomy status Status: Chronic (7) Factor V Leiden Status: Chronic (8) Anemia in chronic kidney disease Status: Chronic Qualifiers: History of Present Illness Date of Admission: 09/23/19 Chief Complaint: Abnormal labs The patient is a 83 year old F with past medical history of non-Hodgkin's lymphoma, recently diagnosed with acute leukemia, recently admitted with pancytopenia, patient of Dr. Young, also history of PE, factor V Leiden, hypothyroidism, CKD stage IV, who presented to the emergency room with abnormal labs. She saw her oncologist this morning and was found to have a platelet count of 7k. She was sent to the emergency room. She does have a small cut on her toe from trimming her nails that is seeping blood. She otherwise feels fine. She has no joint swelling, she has no lightheadedness or dizziness, she has no shortness of breath, no nausea vomiting diarrhea or abdominal pain. Dr. Spann was contacted and she will be receiving platelets. She states she does not want chemotherapy and is considering other treatment options for acute leukemia. She recently had a bone marrow biopsy that is consistent with acute myeloid leukemia with monocytic component, peripheral pancytopenia with circulating blasts. [] Past Medical History Past Medical History (Chronic Problems): Chronic Problems (Last Reviewed 09/23/19 @ 15:51 by Marilu Pierre) Anemia (Chronic) History of non-Hodgkin's lymphoma (Chronic) Non-Hodgkin lymphoma (Chronic) History of pulmonary embolism (Chronic) Colostomy status (Chronic) Collagenous colitis (Chronic) Factor V Leiden (Chronic) Anemia in chronic kidney disease (Chronic) Follicular lymphoma (Chronic) Acquired hypothyroidism (Chronic) Medical History: Medical History (Last Reviewed 09/23/19 @ 15:51 by Marilu Pierre) Anemia D64.9 Clotting disorder D68.[address] Z93.3 Kidney disease N28.9 Pulmonary embolism I26.99 Allergies bee venom protein (honey bee) Allergy (Severe, Verified 09/23/19 16:40) Anaphylaxis niacin Allergy (Severe, Verified 09/23/19 16:40) Anaphylaxis swelling of face and throat Home Medications: Ambulatory Orders Medication Instructions Recorded Citalopram [Celexa] 20 mg PO DAILY 04/24/17 Cholecalciferol (VIT D3) [Vitamin 1,000 unit PO DAILY 06/21/17 D3] Iron Polysaccharide Complex 150 mg PO DAILYCM 06/21/17 [Ferrex 150] Magnesium Oxide [Mag-Ox 400] 400 mg PO DAILY 06/26/17 Solifenacin Succinate [Vesicare] 10 mg PO DAILY 01/14/19 Bupropion HCl [Wellbutrin Xl] 150 mg PO DAILY 09/10/19 Denosumab [Prolia] 60 mg IM UD 09/10/19 Potassium (Otc) [Potassium OTC] 99 mg PO DAILY 09/10/19 Apixaban [Eliquis] 5 mg PO BID 09/23/19 Levothyroxine [Synthroid] 112 mcg PO DAILY 09/23/19 Surgical History: Surgical History (Last Reviewed 09/23/19 @ 15:51 by Marilu Pierre) History of bowel resection Z98.890, Z90.49 History of hernia repair Z98.890, Z87.19 History of kyphoplasty Z98.890 Surgical History: appendectomy, colectomy - In October 2004 she underwent a distal transverse loop colostomy. This was done secondary to thickening of the rectum and sigmoid area. She also underwent an appendectomy at the same time., - - Left chest port placement. Right arm fistula. Psychiatric History: Depression EDUCATION DEPARTMENT CHAIR History: No pertinent EDUCATION DEPARTMENT CHAIR history Smoking Status: Never smoker Tobacco Use: Non-smoker - *Family History Paternal Family History: Family History (Last Reviewed 09/23/19 @ 18:09 by MAXIMUS Brown) Father FH: colon cancer Mother Diabetes Sister Diabetes Brother Diabetes History Items: - Maternal Family History: Family History (Last Reviewed 09/23/19 @ 18:09 by MAXIMUS Brown) Father FH: colon cancer Mother Diabetes Sister Diabetes Brother Diabetes History Items: Stroke Review of Systems Constitutional: Denies: Chills, Fever, Weight Change HEENT: Denies: Head Aches, Sinus Congestion, Sinus Drainage Cardiovascular: Denies: Chest Pain, Palpitations Respiratory: Denies: Cough, Shortness of breath at rest, Sputum production Gastrointestinal: Denies: Abdominal Pain, Nausea, Vomiting Genitourinary: Denies: Dysuria Musculoskeletal: Denies: Joint Pain, Joint Tenderness Skin: Reports: Wounds - bleeding small lac to toe from trimming nails. Denies: Rash Neurological: Denies: Numbness, Tingling, Focal weakness Psychiatric: Denies: Anxiety, Depression, Homicidal Ideations, Suicidal Ideations Hematologic/ Lymphatic: Denies: Easy Bruising, Easy Bleeding VTE Information - Inpt Only VTE Present on Admission: No VTE Mechan Device Prophylaxis: SCD's VTE Pharm Prophylaxis ordered?: No Reason prophylaxis not ordered:: Medical Contraindication Patient Problems: Active and Suspected Problems (Last Reviewed 09/23/19 @ 15:51 by Marilu Pierre) Acute leukemia (Acute) Acquired pancytopenia (Acute) - Physical Exam Vitals/I&O's: Vital Signs Temp Pulse Resp BP Pulse Ox 98.1 F 100 18 106/60 93 09/23/19 16:38 09/23/19 16:38 09/23/19 16:38 09/23/19 16:38 09/23/19 16:38 Oxygen Delivery Method Room Air Weight: 128 lb Body Mass Index (BMI) 21.9 General: Alert, Oriented x3, Cooperative HEENT: Atraumatic, PERRLA, EOMI, Normocephalic Neck: Supple, No JVD, Negative Carotid Bruits Lungs: Clear to auscultation, Normal air movement Cardiovascular: Regular rate, No murmurs Abdomen: Bowel Sounds Present, Soft, Non Tender Extremities: No edema, Capillary Refill Less than 3 Seconds Skin: No rashes, No breakdown, - - small toe lac oozing red blood., varicose veins BL LE. Diffuse pallor. Musculoskeletal: No Tenderness to Palpation of Joints or Extremities, - - no joint swelling Neurological: Cranial nerves II-XII grossly intact Psych/Mental Status: Normal Affect, Appropriate Assessment/Plan All Active Problems (Last Reviewed 09/23/19 @ 15:51 by Marilu Pierre) Pancytopenia (Acute) Acute leukemia (Acute) Acquired pancytopenia (Acute) SOB (shortness of breath) (Resolved) SBO (small bowel obstruction) (Acute) Peristomal hernia (Acute) Partial obstruction of small intestine (Acute) Abdominal pain (Acute) Gastroduodenitis (Resolved) 1Pancytopenia 2/2 AML - pt of Dr. Young. Provide 5 pack. recheck CBC tonight and in AM. Significant anemia as well as neutropenia. Pt does not want chemo. She is relatively asymptomatic. Eliquis will be held. Recent bone marrow bx showing AML. Recent b12 / folate, recent TIBC low, ferritin elevated, iron normal. On PO iron. 2. Hx Factor V leiden, PE, DVT - hold eliquis 3. Hypothyroidism - recent unremarkable thyroid studies. continue synthroid. 4. CKDIV - does not appear to be worse than baseline. 5. Depression - celexa/wellbutrin DVt ppx: SCDs This patient was seen by Ashok Campbell PA-C under the supervision of Dr. Issa.
[2019-09-23 21:02] LABS: Magnesium 1.4 mg/dL (1.6-2.6); Phosphorus 2.3 mg/dL (2.5-4.9)
[2019-09-24 00:35] LABS: Absolute Lymphocyte Count 0.76 X10^3/uL (0.83-4.51); Absolute Neutrophil Count 0.2 X10^3/uL (2.0-7.7); Basophil# 0.01 X10^3/uL; Basophil% 0.8 % (0-1); Eosinophil# 0.03 X10^3/uL; Eosinophils% 2.4 % (0-5); Hematocrit 23.6 % (37-47); Hemoglobin 7.8 g/dL (12.0-15.0); Lymphocyte # 0.76 X10^3/ul (4.0); Lymphocyte % 60.3 % (19-41); Mean Corp Hgb Conc 33.1 g/dL (32-36); Mean Corpuscular Hgb 30.7 pg (27.0-32.0); Mean Corpuscular Volume 92.9 fL (81-99); Mean Platelet Vol. 9.8 fl (6.2-12.0); Monocyte# 0.24 X10^3/uL; NRBC Flagged by Analyzer 0 % (0-5); Neutrophil % 15.9 % (47-70); POSITIVE COUNT YES; POSITIVE DIFFERENTIAL YES; POSITIVE MORPHOLOGY YES; Platelet Count 55 K/mm3 (150-450); RBC Distribution Width CV 13.7 % (11.6-14.6); RBC Distribution Width SD 45.8 fl (35.1-43.9); Red Blood Count 2.54 M/mm3 (4.2-5.4)
[2019-09-24 00:38] LABS: Differential Indicated SCAN CRITERIA MET
[2019-09-24 00:39] LABS: White Blood Count 1.3 K/mm3 (4.4-11.0)
[2019-09-24 01:07] LABS: Differential Comment SCANNED; Ovalocyte RARE; Platelet Estimate MOD DEC (ADEQ); Polychromasia RARE; Reactive Lymphocyte RARE
[2019-09-24 02:33] VITALS: BP 143/78; PULSE 77; RESP 14; TEMP 36.5; O2SAT 98
[2019-09-24] MEDS: Levothyroxine 112 MCG Tablet PO (05:32)
[2019-09-24 07:09] LABS: Absolute Lymphocyte Count 0.66 X10^3/uL (0.83-4.51); Absolute Neutrophil Count 0.2 X10^3/uL (2.0-7.7); Eosinophil# 0.03 X10^3/uL; Eosinophils% 2.8 % (0-5); Hematocrit 22.5 % (37-47); Hemoglobin 7.4 g/dL (12.0-15.0); Lymphocyte # 0.66 X10^3/ul (4.0); Lymphocyte % 60.6 % (19-41); Mean Corp Hgb Conc 32.9 g/dL (32-36); Mean Corpuscular Hgb 30.7 pg (27.0-32.0); Mean Corpuscular Volume 93.4 fL (81-99); Monocyte# 0.21 X10^3/uL; Monocyte% 19.3 % (0-10); NRBC Flagged by Analyzer 0 % (0-5); Neutrophil # 0.15 X10^3/uL (2.7-7.7); Neutrophil % 13.6 % (47-70); POSITIVE COUNT YES; POSITIVE DIFFERENTIAL YES; POSITIVE MORPHOLOGY YES; Platelet Count 50 K/mm3 (150-450); RBC Distribution Width CV 13.5 % (11.6-14.6); RBC Distribution Width SD 45.9 fl (35.1-43.9); Red Blood Count 2.41 M/mm3 (4.2-5.4); White Blood Count 1.1 K/mm3 (4.4-11.0)
[2019-09-24 07:14] LABS: Differential Indicated SCAN CRITERIA MET
[2019-09-24 07:44] LABS: Anion Gap 7 (5-15); BUN 40 mg/dL (7-18); BUN/Creat Ratio 17.4 RATIO (10-20); Calcium,Total 7.4 mg/dL (8.5-10.1); Chloride 108 mmol/L (98-107); EST Glomerular Filtration Rate 22 mL/min (>60); Est Glom Filt Rate - Afr Amer 26 mL/min (>60); Estimated Creatinine Clearance 16.28 ml/min; Glucose 74 mg/dL (74-106); Potassium 3.3 mmol/L (3.5-5.1); Sodium Level 138 mmol/L (136-145)
[2019-09-24 08:30] VITALS: BP 140/65; PULSE 84; RESP 16; TEMP 36.6; O2SAT 100
[2019-09-24 08:37] LABS: Anisocytosis 1+; Atypical Lymphocyte RARE %; Hypochromasia 1+; Ovalocyte RARE; Platelet Estimate MKD DEC (ADEQ)
[2019-09-24 08:38] LABS: Differential Comment SCANNED
--- NOTE | 2019-09-24 09:47 | CASEMGMT ---
Social Work Note SW reviewed chart, pt has history of Non-hodgkin's lymphoma and recent diagnose of Leukemia. SW completed Palliative Care Screening tool, pt scored a 4. SW in to speak with pt. SW introduced self and role at [facility]. Pt is alert and orientated x4. Pt explained Palliative Care to pt and provided pt with Palliative Care brochure. Pt states she would like to take brochure home and review. SW informed pt that if she would like a referral made while she is at [facility] to let staff know and this SW can make referral. Pt states understanding, denied additional needs or concerns at this time. Selin Alfaro DIRECT CARE COUNSELOR, HATCHERY ATTENDANT
[2019-09-24] MEDS: Iron Polysaccharide Complex 150 MG CAPSULE PO (09:53)
[2019-09-24] MEDS: Magnesium Oxide 400 MG Tablet PO (09:53)
[2019-09-24] MEDS: Citalopram 20 MG Tablet PO (09:53)
[2019-09-24] MEDS: Tolterodine Tartrate 2 MG CAP.SA PO (09:54)
[2019-09-24] MEDS: buPROPion (XL) 150 MG TABLET.XL PO (09:55)
--- NOTE | 2019-09-24 11:35 | DCINST_ITS ---
- Discharge Diagnoses Current Active Problems: Current Active and Chronic Problems (Last Reviewed 09/23/19 @ 15:51 by Marilu Pierre) Acute leukemia (Acute) Acquired pancytopenia (Acute) You will use the following diet at home:: No restrictions Your food should be the consistency of: Regular Your liquids should be the consistency of: Regular/Thin Discharge Activity: Return to Normal Activity Additional Instructions: Talk to your doctor about having labwork, a CBC and BMP tomorrow at follow up. Allergies/Adverse Reactions: Allergies bee venom protein (honey bee) Allergy (Severe, Verified 09/23/19 16:40) Anaphylaxis niacin Allergy (Severe, Verified 09/23/19 16:40) Anaphylaxis swelling of face and throat Medications to take at Discharge Citalopram [Celexa] 20 mg PO DAILY 04/24/17 Cholecalciferol (VIT D3) [Vitamin D3] 1,000 unit PO DAILY 06/21/17 Iron Polysaccharide Complex [Ferrex 150] 150 mg PO DAILYCM 06/21/17 Magnesium Oxide [Mag-Ox 400] 400 mg PO DAILY 06/26/17 Solifenacin Succinate [Vesicare] 10 mg PO DAILY 01/14/19 Bupropion HCl [Wellbutrin Xl] 150 mg PO DAILY 09/10/19 Denosumab [Prolia] 60 mg IM UD 09/10/19 Potassium (Otc) [Potassium OTC] 99 mg PO DAILY 09/10/19 Levothyroxine [Synthroid] 112 mcg PO DAILY 09/23/19 Primary Care Physician: Anya Lua DO [Primary Care Provider] - Please follow up with your Primary Care Physician in: 1-2 weeks Test Results: Test results from this visit will be discussed in further detail at your follow- up appointment, if applicable. Please Follow Up With: Keaton Young MD When: 1 day Proposed Discharge Date: 09/24/19
--- NOTE | 2019-09-24 13:34 | PCM.DC.SUM ---
Discharge Date and Diagnosis - Problem List Patient Problems: Active and Suspected Problems (Last Reviewed 09/23/19 @ 15:51 by Marilu Pierre) Acute leukemia (Acute) Acquired pancytopenia (Acute) Date of Admission: 09/23/19 Date of Discharge: 09/24/19 - Primary Discharge Diagnosis Active and Suspected Problems (Last Reviewed 09/23/19 @ 15:51 by Marilu Pierre) ALL Pancytopenia Neutropenia History of NHL Factor V Leiden with history of PE CKD stage IV - Secondary Discharge Diagnosis Chronic Problems (Last Reviewed 09/23/19 @ 15:51 by Marilu Pierre) Anemia (Chronic) History of non-Hodgkin's lymphoma (Chronic) Non-Hodgkin lymphoma (Chronic) History of pulmonary embolism (Chronic) Colostomy status (Chronic) Collagenous colitis (Chronic) Factor V Leiden (Chronic) Anemia in chronic kidney disease (Chronic) Follicular lymphoma (Chronic) Acquired hypothyroidism (Chronic) Hospital Course and Treatment Operations: None Procedures: None Summary of Care Provided: Hospital course: The patient is a 83 year old F with past medical history as above notably recently diagnosed with a LL, biopsy positive, who presented to the emergency room after being sent by her oncologist Dr. De La Cruz for abnormal labs. She had marketed pancytopenia with platelet count of 7000. Despite this she felt fine had no complaints. She was admitted to the hospital and given platelets overnight. Her Eliquis was discontinued. Her platelet count increased to 50,000. She also had some hypokalemia, hypophosphatemia, hypomagnesemia, these were replaced. She had no complaints the following day. We advised her to be discharged home with close follow-up with her oncologist ideally tomorrow. She will have to have her CBC and BMP rechecked tomorrow. She was discharged home in stable condition, she will also need to follow-up with her PCP in 1 to 2 weeks. The patient improved faster than anticipated. This patient was seen by Ashok Campbell PA-C under the supervision of Doctor Cobb. [] Patient Problems: Active and Suspected Problems (Last Reviewed 09/23/19 @ 15:51 by Mrailu Pierre) Acute leukemia (Acute) Acquired pancytopenia (Acute) - Physical Exam Vitals/I&O's: Vital Signs Temp Pulse Resp BP Pulse Ox 97.8 F 84 16 140/65 H 100 09/24/19 08:30 09/24/19 08:30 09/24/19 08:30 09/24/19 08:30 09/24/19 08:30 Oxygen Delivery Method Room Air Weight: 126 lb 1 oz Body Mass Index (BMI) 21.6 Intake and Output for Last 24 Hours 09/22/19 09/23/19 09/24/19 23:59 23:59 23:59 Intake Total 200 / 400 200 / 200 Balance 200 / 400 200 / 200 General: Alert, Oriented x3, Cooperative HEENT: Atraumatic, PERRLA, EOMI, Normocephalic Neck: Supple, No JVD, Negative Carotid Bruits Lungs: Clear to auscultation, Normal air movement Cardiovascular: Regular rate, No murmurs Abdomen: Bowel Sounds Present, Soft, Non Tender Extremities: No edema, Capillary Refill Less than 3 Seconds Skin: No rashes, No breakdown Musculoskeletal: No Tenderness to Palpation of Joints or Extremities Neurological: Cranial nerves II-XII grossly intact Psych/Mental Status: Normal Affect, Appropriate, Alert and oriented to time, place, person, mood and affect Laboratory Results 09/23/19 15:35: Phosphorus 2.3 L, Magnesium 1.4 L 09/23/19 17:54: Blood Type A POSITIVE, Antibody Screen NEGATIVE 09/24/19 00:24: WBC 1.3 L*, RBC 2.54 L, Hgb 7.8 L, Hct 23.6 L, MCV 92.9, MCH 30.7, MCHC 33.1, RDW Std Deviation 45.8 H, RDW Coeff of Chantelle 13.7, Plt Count 55 L, MPV 9.8, Immature Gran % (Auto) 1.600 H, Neut % (Auto) 15.9 L, Lymph % (Auto) 60.3 H, [place] % (Auto) 19.0 H, Eos % (Auto) 2.4, Baso % (Auto) 0.8, Absolute Neuts (auto) 0.2 L, Absolute Lymphs (auto) 0.76 L, Nucleated RBC % 0, Differential Comment SCANNED, Diff Path Review May foll, Reactive Lymphocytes RARE, Platelet Estimate MOD DEC, Polychromasia RARE, Ovalocytes RARE 09/24/19 06:40: WBC 1.1 L*, RBC 2.41 L, Hgb 7.4 L, Hct 22.5 L, MCV 93.4, MCH 30.7, MCHC 32.9, RDW Std Deviation 45.9 H, RDW Coeff of Chantelle 13.5, Plt Count 50 L*, MPV 10.0, Immature Gran % (Auto) 3.700 H, Neut % (Auto) 13.6 L, Lymph % (Auto) 60.6 H, [place] % (Auto) 19.3 H, Eos % (Auto) 2.8, Baso % (Auto) 0.0, Absolute Neuts (auto) 0.2 L, Absolute Lymphs (auto) 0.66 L, Nucleated RBC % 0, Differential Comment SCANNED, Diff Path Review May foll, Atypical Lymphocytes RARE, Platelet Estimate MKD DEC, Hypochromasia 1+, Anisocytosis 1+, Ovalocytes RARE 09/24/19 06:40: Sodium 138, Potassium 3.3 L, Chloride 108 H, Carbon Dioxide 23.0, Anion Gap 7, BUN 40 H, Creatinine 2.30 H, Estim Creat Clear Calc 16.28, Est GFR (MDRD) Af Amer 26 L, Est GFR (MDRD) Non-Af 22 L, BUN/Creatinine Ratio 17.4, Glucose 74, Calcium 7.4 L Current Medications Bupropion HCl (Wellbutrin Xl) 150 mg PO DAILY [facility] Last Admin: 09/24/19 09:55 Dose: 150 mg Documented by: Citalopram Hydrobromide (Celexa) 20 mg PO DAILY [facility] Last Admin: 09/24/19 09:53 Dose: 20 mg Documented by: Sodium Chloride () 500 mls @ 15 mls/hr IV PRN PRN PRN Reason: Blood Transfusion Sodium Chloride () 250 mls @ 15 mls/hr IV .[id number] PRN PRN Reason: Saline Flush Sodium Chloride () 250 mls @ 15 mls/hr IV .[id number] PRN PRN Reason: Additional IVPB Infusion Sodium Chloride () 250 mls @ 15 mls/hr IV .[id number] PRN PRN Reason: Saline Flush Sodium Chloride () 250 mls @ 15 mls/hr IV .[id number] PRN PRN Reason: Additional IVPB Infusion Sodium Chloride () 500 mls @ 15 mls/hr IV PRN PRN PRN Reason: Blood Transfusion Levothyroxine Sodium (Synthroid) 112 mcg PO DAILY@0600 [facility] Last Admin: 09/24/19 05:32 Dose: 112 mcg Documented by: [facility] 400[facility] Admin: 09/24/19 09:53 Dose: 400 mg Documented by: Polysaccharide Iron Complex (Ferrex 150) [facility] Last Admin: 09/24/19 09:53 Dose: 150 mg Documented by: Potassium Phos/Sodium Phos (Neutra-Phos Packet) 1 packet PO 4X/DAY [facility] Stop: 09/24/19 22:01 Sodium Chloride () 10 - 40 ml IV UD PRN PRN Reason: SALINE FLUSH Tolterodine Tartrate (Detrol La) 2 mg PO DAILY [facility] Last Admin: 09/24/19 09:54 Dose: 2 mg Documented by: Discharge Diet: No Restrictions Discharge Activity: Return to Normal Activity Home Medications: Medications to take at Discharge Citalopram [Celexa] 20 mg PO DAILY 04/24/17 Cholecalciferol (VIT D3) [Vitamin D3] 1,000 unit PO DAILY 06/21/17 Iron Polysaccharide Complex [Ferrex 150] 150 mg PO DAILY 06/21/17 Magnesium Oxide [Mag-Ox 400] 400 mg PO DAILY 06/26/17 Solifenacin Succinate [Vesicare] 10 mg PO DAILY 01/14/19 Bupropion HCl [Wellbutrin Xl] 150 mg PO DAILY 09/10/19 Denosumab [Prolia] 60 mg IM UD 09/10/19 Potassium (Otc) [Potassium OTC] 99 mg PO DAILY 09/10/19 Levothyroxine [Synthroid] 112 mcg PO DAILY 09/23/19 Primary Care Physician: Anya Lua DO [Primary Care Provider] - Please follow up with your Primary Care Physician in: 1-2 weeks Please Follow Up With: Keaton Young MD When: 1 day Disposition: Home Minutes spent on discharge:: 35 Patient Condition:: Stable Medical Necessity - Tobacco Use Smoking Status: Never smoker Tobacco Use: Non-smoker Meaningful Use Info Meaningful Use Diagnoses (Choose all that apply): None applicable
[2019-09-24] MEDS: Na Biphos/Potassium Phosphate PACKET 1 PACKET PO ×3 (13:52→16:46)
[2019-09-24] MEDS: 0.9% Saline Lock 10 ML Syringe IV (13:55)
[2019-09-24 14:30] VITALS: BP 146/82; PULSE 86; RESP 16; TEMP 36.5; O2SAT 98
[2019-09-24 15:02] LABS: Pathologist Review Reviewed
[2019-09-25 10:42] LABS: Pathologist Review Reviewed
--- NOTE | 2019-09-25 17:45 | CASEMGMT ---
Case Management DC F/u Call: DC Date: 09/24/2019 DC Diagnosis: ALL, Pancytopenia, Neutropenia, History of NHL, Factor V Leiden with history of PE, CKD stage IV DC Disposition: Home Lace/Strata: 05/02 Called patient listed cell phone, no answer and did not verify correct patient. Called listed home number in demographics, patient answered, introduced self and role. Patient states that she is doing just fine. States had seen Dr Young today and is going to try a different treatment next week. Denies any issues, questions or concerns with f/u, ACI or medications. Thanked her for choosing [facility] for her care and ended conversation. Gina Ovalle RNCM
== END 2019-09-24 17:50 | disposition home or self-care (01) | DRG 809 ==
LOC: ED 17:24 → MS3 17:55
PROVIDERS: Physician Assistant; Admitting Provider Family Medicine; Emergency Provider Emergency Medicine; PCP Internal Medicine; Visit Provider Internal Medicine
DX: D61.818 Other pancytopenia (principal); C92.00 Acute myeloblastic leukemia, not having achieved remission; N18.4 Chronic kidney disease, stage 4 (severe); D68.51 Activated protein C resistance; Z66 Do not resuscitate; Z86.718 Personal history of other venous thrombosis and embolism; Z86.711 Personal history of pulmonary embolism; Z79.01 Long term (current) use of anticoagulants; Z93.3 Colostomy status; D63.1 Anemia in chronic kidney disease; E03.9 Hypothyroidism, unspecified; E87.6 Hypokalemia; E83.42 Hypomagnesemia; E83.39 Other disorders of phosphorus metabolism
CPT/HCPCS: 36415; 80048; 80053; 83615; 83735; 84100; 84550; 85025; 85045; 85610; 85730; 86644; 86850; 86900; 86901; 86965; 97802; 99284; J7040; J7050; P9035; A4216

== ENCOUNTER → 2020-06-01 13:48 | Outpatient (CLI) | payer MEDICARE, OTHER, SELFPAY ==
[2020-05-04 15:50] VITALS: BMI 19.7
== END ==
PROVIDERS: PCP Internal Medicine; Referring Provider Internal Medicine Nephrology; Visit Provider Internal Medicine Nephrology
DX: N18.4 Chronic kidney disease, stage 4 (severe) (principal)
CPT/HCPCS: 36591; 80048; A4216

== ENCOUNTER 2020-08-17 17:00 | Observation (INO) | payer MEDICARE, OTHER, SELFPAY ==
[2020-08-04 13:43] VITALS: BMI 18.8
[2020-08-17] VITALS (7 sets, daily range): BP systolic 126–132; BP diastolic 48–60; PULSE 54–99; RESP 16–22; TEMP 35.8–36.4; O2SAT 94–99; BMI 21.7; BMI 18.1
--- NOTE | 2020-08-17 17:34 | ED.VIS.GEN ---
History of Present Illness Chief Complaint: Abd Pain Informant: Patient Narrative: Patient is an 84-year-old female with a past medical history of lymphoma, bowel obstructions, has a ostomy, factor V Leiden who presents to the emergency department for lower quadrant abdominal pain. She states that this been present for about 1 week. She currently rates the pain as a 6 out of 10. She has taken something for but she cannot recall what the name was. She has never had this pain before. She has been having normal output from her ostomy. She denies any nausea or vomiting. No urinary symptoms. She denies any chest pain, shortness of breath or cough. No fevers or chills. Patient is no longer being treated with warfarin for her factor V Leiden. She has been undergoing chemotherapy for the past year. Last visit with her oncologist was 2 weeks ago. They are willing to discuss hospice at this time. Past Medical History - Allergies and Home Meds Allergies/Adverse Reactions: Allergies bee venom protein (honey bee) Allergy (Severe, Verified 08/04/20 13:43) Anaphylaxis niacin Allergy (Severe, Verified 08/04/20 13:43) Anaphylaxis swelling of face and throat Prior records reviewed: Yes Surgical History: appendectomy, colectomy - In October 2004 she underwent a distal transverse loop colostomy. This was done secondary to thickening of the rectum and sigmoid area. She also underwent an appendectomy at the same time., - - Left chest port placement. Right arm fistula. Smoking Status: Never smoker - Family History Paternal Family History: Family History (Last Reviewed 08/04/20 @ 13:42 by Mini Kim) Father FH: colon cancer Mother Diabetes Sister Diabetes Brother Diabetes Family History: Reports: - Maternal Family History: Family History (Last Reviewed 08/04/20 @ 13:42 by Mini Kim) Father FH: colon cancer Mother Diabetes Sister Diabetes Brother Diabetes Family History: Reports: Stroke Review of Systems General: Denies: Chills, Fever, Sweats Eyes: Denies: Visual changes - bilaterally, Diplopia ENT: Denies: Rhinorrhea, Sore throat Cardiovascular: Denies: Chest pain, Palpitations Respiratory: Denies: Dyspnea, Cough, Dyspnea on exertion Gastrointestinal: Reports: Abdominal pain. Denies: Nausea, Vomiting, Diarrhea, Melena, Hematochezia Genitourinary: Denies: Dysuria, Hematuria, Frequency Musculoskeletal: Denies: Back pain, Extremity Pain Skin: Denies: Rash, Wounds Neurological: Denies: Headache, Weakness, Numbness Physical Exam Vital Signs/Narrative: Vital Signs Temp Pulse Resp BP Pulse Ox 08/17/20 17:02 97.6 F L 67 18 128/54 H 96 Inital Vital Signs reviewed: Yes General: Well nourished, Well developed, No Acute Distress Head: Normocephalic, Atraumatic Eyes: Perrl, EOMI ENT: Moist mucous membranes, No rhinorrhea Neck: Supple, Nontender Cardiovascular: Regular rate, Regular rhythm, No murmurs Respiratory: No distress, CTA bilaterally, Chest nontender Abdomen: Soft, Nontender, Nondistended, Normal bowel sounds, - - Ostomy present. Surrounding area does not have any evidence of infection. No reproducible tenderness. Back: Nontender, Normal Inspection Extremities: Nontender, No edema Skin: Normal color, No rash Neurological: Alert, Cranial nerves II-XII grossly intact, Normal Strength, Normal Sensation Psychological: Normal affect, Normal Mood Diagnostic/Tx/Re-eval - Medical Decision Making Patient presents to the emergency department for abdominal pain with no other associated symptoms. Upon arrival to the emerge department vital signs within normal limits and she does not appear in acute distress. She has a benign physical exam. She has no tenderness on palpation. Will check basic lab work, urinalysis and CT scan of the abdomen/pelvis. The son and patient are agreeable with discussing with hospice so the hospice nurse was called in for evaluation and potential management. Patient started on IV fluids, Rocephin for urinary tract infection and given morphine for pain. He does have significant abnormalities with her lab work including worsening of her kidney function, worsening of her anemia. She does appear very dehydrated and has a very low CO2. This time they want to be admitted to the hospital for IV hydration, antibiotics and will likely be discharged on hospice. They do not want any blood products or imaging at this time. They only want IV fluids, pain medications and antibiotics. This was all discussed with the hospitalist and they are willing to admit. She otherwise has been stable throughout ED stay. Their main goals of care at this time are to make the patient comfortable. ED Disposition - Plan for ED Patient: Disposition: Acute Care Hospital [facility] Diagnosis: Pancytopenia, Dehydration, Anemia, Renal failure, UTI (urinary tract infection), Sepsis
[2020-08-17 18:16] LABS: Hematocrit 18.2 % (37-47); Hemoglobin 5.7 g/dL (12.0-15.0); Mean Corp Hgb Conc 31.3 g/dL (32-36); Mean Corpuscular Hgb 32.2 pg (27.0-32.0); Mean Corpuscular Volume 102.8 fL (81-99); POSITIVE COUNT YES; POSITIVE DIFFERENTIAL YES; POSITIVE MORPHOLOGY YES; Platelet Count 15 K/mm3 (150-450); RBC Distribution Width CV 18.1 % (11.6-14.6); RBC Distribution Width SD 68.7 fl (35.1-43.9); Red Blood Count 1.77 M/mm3 (4.2-5.4); White Blood Count 29.3 K/mm3 (4.4-11.0)
[2020-08-17 18:31] LABS: Differential Indicated MANUAL DIFF
[2020-08-17 18:36] LABS: Bacteria 0 SEEN /hpf (None Seen); Mucous, Urine 0 SEEN /hpf (<or=2+); Red Blood Cells-Urine 0 SEEN /hpf (0-5); Squamous Epithelial Cells - UA 0 SEEN /hpf (5-10)
[2020-08-17 18:40] LABS: Color, Urine Yellow (Yellow); Glucose, Dipstick Normal (Normal); Ketone-Dipstick Negative (Negative); Leukocyte Esterase-Dipstick 500 /ul (Negative); Nitrite-Dipstick Negative (Negative); Occult Blood-Urine 250 /ul (Negative); Protein-Dipstick 500 mg/dl (Negative); Urine Bilirubin Dipstick Negative (Negative); Urine Clarity Turbid (Clear); Urine Urobilinogen Normal (Normal)
[2020-08-17 18:43] LABS: Lactic Acid 2.3 mmol/L (0.4-1.9)
[2020-08-17 18:45] LABS: ALB/GLOB Ratio 0.9 RATIO (0.9-2.4); AST(SGOT) 32 U/L (15-37); Alanine Aminotransfer ALT/SGPT 11 U/L (13-56); Albumin, Serum 3.2 g/dL (3.2-5.0); Alkaline Phosphatase 75 U/L (45-117); Anion Gap 21 (5-15); BUN 117 mg/dL (7-18); BUN/Creat Ratio 13.5 RATIO (10-20); Calcium,Total 6.8 mg/dL (8.5-10.1); Chloride 109 mmol/L (98-107); Creatinine, Serum 8.67 mg/dL (0.55-1.02); EST Glomerular Filtration Rate 5 mL/min (>60); Est Glom Filt Rate - Afr Amer 6 mL/min (>60); Estimated Creatinine Clearance 4.25 ml/min; Globulin 3.7 g/dL (2.2-4.2); Glucose 131 mg/dL (74-106); Lipase 262 U/L (73-393); Potassium 4.3 mmol/L (3.5-5.1); Protein, Total 6.9 g/dL (6.4-8.2); Sodium Level 136 mmol/L (136-145)
[2020-08-17 18:46] LABS: White Blood Cells >100 SEEN /hpf (0-5)
[2020-08-17 19:00] LABS: Blast 7 % (0-0); Neutrophil-Segmented 15 % (47-70); Promyelocyte 8 (0-0)
[2020-08-17 19:01] LABS: Lymphocyte 5 % (19-41); Monocyte 65 % (0-10); Platelet Estimate MKD DEC (ADEQ)
[2020-08-17 19:02] LABS: Anisocytosis 2+; Red Cell Morphology NORM C+C NORMAL (NORM C&C)
[2020-08-17 19:04] LABS: Absolute Lymphocyte Count 1.47 X10^3/uL (0.83-4.51); Absolute Neutrophil Count 4.4 X10^3/uL (2.0-7.7)
[2020-08-17] MEDS: Morphine 2 MG/ML Syringe IV (19:41)
[2020-08-17] MEDS: Ceftriaxone 1 GM/50 ML BAG IV (19:45)
--- NOTE | 2020-08-17 21:21 | PCM.HP.STD ---
Problem List (1) Anemia Status: Chronic Qualifiers: Anemia type: unspecified type Qualified Code(s): D64.9 - Anemia, unspecified (2) Pancytopenia Status: Acute (3) History of non-Hodgkin's lymphoma Status: Chronic (4) Renal failure Status: Acute Qualifiers: Renal failure chronicity: acute on chronic (5) Colostomy status Status: Chronic (6) SOB (shortness of breath) Status: Resolved (7) Factor V Leiden Status: Chronic (8) Anemia in chronic kidney disease Status: Chronic Qualifiers: (9) Acquired hypothyroidism Status: Chronic (10) Dehydration Status: Acute History of Present Illness Date of Admission: 08/17/20 Chief Complaint: generalized weakness The patient is a 84 year old male patient with past medical history of lymphoma, bowel obstructions who has a colostomy presents to the emergency room with initial complaint of lower abdominal pain. The patient has not been able to drink sufficient fluids for the past day and is requesting admission for hydration. The patient is also decided to transition into hospice care and wants to make that transition tomorrow morning. Currently the patient is comfortable and denies the pain for which she originally arrived for. She denies chest pain, shortness of breath and no fevers or chills. After speaking to the patient was agreeable to admit the patient for observation for hydration overnight and a hospice consult in the morning. Past Medical History Past Medical History (Chronic Problems): Chronic Problems (Last Reviewed 08/04/20 @ 13:42 by Mini Kim) Anemia (Chronic) History of non-Hodgkin's lymphoma (Chronic) Acute leukemia (Chronic) History of non-Hodgkin's lymphoma (Chronic) Hypokalemia (Chronic) Non-Hodgkin lymphoma (Chronic) History of pulmonary embolism (Chronic) Colostomy status (Chronic) Collagenous colitis (Chronic) Factor V Leiden (Chronic) Anemia in chronic kidney disease (Chronic) Follicular lymphoma (Chronic) Acquired hypothyroidism (Chronic) Medical History: Medical History (Last Reviewed 08/04/20 @ 13:42 by Mini Kim) Anemia D64.9 Clotting disorder D68.[address] Z93.3 Kidney disease N28.9 Pulmonary embolism I26.99 Allergies bee venom protein (honey bee) Allergy (Severe, Verified 08/04/20 13:43) Anaphylaxis niacin Allergy (Severe, Verified 08/04/20 13:43) Anaphylaxis swelling of face and throat Home Medications: Ambulatory Orders Medication Instructions Recorded Potassium Chloride [K-Dur] 20 meq PO DAILY #30 tab 04/07/20 Surgical History: Surgical History (Last Reviewed 08/04/20 @ 13:42 by Miin Kim) History of bowel resection Z98.890, Z90.49 History of hernia repair Z98.890, Z87.19 History of kyphoplasty Z98.890 Surgical History: appendectomy, colectomy - In October 2004 she underwent a distal transverse loop colostomy. This was done secondary to thickening of the rectum and sigmoid area. She also underwent an appendectomy at the same time., - - Left chest port placement. Right arm fistula. 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 Denies: Chills, Fever, Weight Change HEENT: Denies: Head Aches, Sinus Congestion, Sinus Drainage Cardiovascular: Denies: Chest Pain, Palpitations Respiratory: Denies: Cough, Shortness of breath at rest, Sputum production Gastrointestinal: Reports: Abdominal Pain. Denies: Nausea, Vomiting Genitourinary: Denies: Dysuria Musculoskeletal: Denies: Joint Pain, Joint Tenderness Skin: Denies: Rash, Wounds Neurological: Denies: Numbness, Tingling, Focal weakness Psychiatric: Denies: Anxiety, Depression, Homicidal Ideations, Suicidal Ideations Hematologic/ Lymphatic: Denies: Easy Bruising, Easy Bleeding VTE Information - Inpt Only VTE Present on Admission: No VTE Mechan Device Prophylaxis: None VTE Pharm Prophylaxis ordered?: No - Physical Exam Vitals/I&O's: Vital Signs Temp Pulse Resp BP Pulse Ox 97.6 F L 99 20 H 131/48 H 96 08/17/20 17:02 08/17/20 19:40 08/17/20 19:40 08/17/20 19:40 08/17/20 19:47 Oxygen Flow Rate (L/min) 2 Oxygen Delivery Method Nasal Cannula Weight: 126 lb 5.198 oz Body Mass Index (BMI) 21.7 Intake and Output for Last 24 Hours 08/15/20 08/16/20 08/17/20 23:59 23:59 23:59 Intake Total 149.9 / 149.9 Balance 149.9 / 149.9 General: Alert, Cooperative, No apparent distress HEENT: Atraumatic, Normocephalic Neck: Supple Lungs: Clear to auscultation, Normal air movement Cardiovascular: Regular rate, Normal S1, Normal S2, No murmurs Abdomen: Bowel Sounds Present, Non Tender Extremities: No edema Skin: No rashes Musculoskeletal: No Tenderness to Palpation of Joints or Extremities Neurological: Neuro grossly intact Psych/Mental Status: Normal Affect, Appropriate Laboratory Results 08/17/20 17:55: WBC 29.3 H, RBC 1.77 L, Hgb 5.7 L*, Hct 18.2 L, MCV 102.8 H, MCH 32.2 H, MCHC 31.3 L, RDW Std Deviation 68.7 H, RDW Coeff of Chantelle 18.1 H, Plt Count 15 L*, MPV TNP, Neut % (Auto) Not Reportable, Absolute Neuts (auto) 4.4, Absolute Lymphs (auto) 1.47, Neutrophils % (Manual) 15 L, Lymphocytes % (Manual) 5 L, Monocytes % (Manual) 65 H, Promyelocytes % 8 H, Blast Cells % 7 H*, Diff Path Review November foll, Platelet Estimate MKD DEC, RBC Morphology NORM C+C, Anisocytosis 2+ 08/17/20 17:55: Sodium 136, Potassium 4.3, Chloride 109 H, Carbon Dioxide 6.0 L*, Anion Gap 21 H, BUN 117 H*, Creatinine 8.67 H*, Estim Creat Clear Calc 4.25, Est GFR (MDRD) Af Amer 6 L, Est GFR (MDRD) Non-Af 5 L, BUN/Creatinine Ratio 13.5, Glucose 131 H, Calcium 6.8 L, Total Bilirubin 0.30, AST 32, ALT 11 L, Alkaline Phosphatase 75, Troponin I < 0.015, Total Protein 6.9, Albumin 3.2, Globulin 3.7, Albumin/Globulin Ratio 0.9, Lipase 262 08/17/20 17:55: Lactic Acid 2.3 H* 08/17/20 18:30: Urine Color Yellow, Urine Clarity Turbid, Urine pH 5.0, Ur Specific [place] 1.020, Urine Protein 500 H, Urine Glucose (UA) Normal, Urine Ketones Negative, Urine Occult Blood 250 H, Urine Nitrite Negative, Urine Bilirubin Negative, Urine Urobilinogen Normal, Ur Leukocyte Esterase 500 H, Urine RBC 0 SEEN, Urine WBC >100 SEEN, Ur Squamous Epith Cells 0 SEEN, Urine Bacteria 0 SEEN, Urine Mucus 0 SEEN 08/17/20 19:25: Blood Type A POSITIVE, Antibody Screen NEGATIVE Assessment/Plan All Active Problems (Last Reviewed 08/04/20 @ 13:42 by Mini Kim) Pancytopenia (Acute) Acquired pancytopenia (Acute) Chemotherapy management, encounter for (Acute) Renal failure (Acute) Urinary frequency (Acute) Worsening renal function (Acute) Dehydration (Acute) SOB (shortness of breath) (Resolved) SBO (small bowel obstruction) (Acute) Peristomal hernia (Acute) Partial obstruction of small intestine (Acute) Abdominal pain (Acute) Gastroduodenitis (Resolved) Chronic Problems (Last Reviewed 08/04/20 @ 13:42 by Mini Kim) Anemia (Chronic) History of non-Hodgkin's lymphoma (Chronic) Acute leukemia (Chronic) History of non-Hodgkin's lymphoma (Chronic) Hypokalemia (Chronic) Non-Hodgkin lymphoma (Chronic) History of pulmonary embolism (Chronic) Colostomy status (Chronic) Collagenous colitis (Chronic) Factor V Leiden (Chronic) Anemia in chronic kidney disease (Chronic) Follicular lymphoma (Chronic) Acquired hypothyroidism (Chronic) Plan 1. Lymphoma\anemia of chronic disease\pellety?admit patient for observation, gentle IV hydration overnight, consult hospice care for discharge plan in the morning. Patient wishes to be DNR comfort care 2. Hold all other medications this evening as patient is transitioning to hospice. OBSV E&M: [id number] Initial observation care L2
[2020-08-17 22:08] LABS: Reflex Lactate? Y
[2020-08-17] MEDS: 0.9% Normal Saline 1,000 ML 75 ML IV (23:02)
[2020-08-17] MEDS: 0.9% Saline Lock 10 ML Syringe IV (23:02)
[2020-08-17 23:41] LABS: Lactic Acid 2.1 mmol/L (0.4-1.9)
[2020-08-18 05:07] VITALS: BP 124/54; PULSE 104; RESP 22; TEMP 36.7; O2SAT 97
--- NOTE | 2020-08-18 08:29 | NURSING ---
[facility] on [facility].
--- NOTE | 2020-08-18 09:32 | CASEMGMT ---
Social Work Note NILESH received call from MEYL Dozier at [facility] stating she received Hospice Referral for pt. Tasia state she placed a call to pt's son Mian and Mian was unaware of pt's condition and how pt has declined over the night. Tasia states she was updated pt had guppy breathing and Mian seemed to be under the impression that pt was going to be able to be discharged home today from the hospital. NILESH asked Tasia if pt is inpatient Hospice appropriate, Tasia states she mentioned that to pt's son Mian and Mian said that's nothing something mom would want. Tasia states if Mian is agreeable to inpatient hospice, they would have to review it and review pt's symptoms. Tasia states pt's son Mian is planning on coming to [facility] soon and he may be surprised to see pt's condition. NILESH updated RN. Selin Alfaro CORPORATE RELATIONS MANAGER, [employer]
--- NOTE | 2020-08-18 10:08 | PCS.PANDOC ---
PANDEMIC DOCUMENTATION INITIATED: Date: 07/06/2020 Time:
--- NOTE | 2020-08-18 10:11 | DCINST_ITS ---
- Discharge Diagnoses Current Active Problems: Current Active and Chronic Problems (Last Reviewed 08/04/20 @ 13:42 by Mini Kim) Anemia (Chronic) Pancytopenia (Acute) History of non-Hodgkin's lymphoma (Chronic) Renal failure (Acute) Dehydration (Acute) UTI (urinary tract infection) (Acute) Sepsis (Acute) Colostomy status (Chronic) Factor V Leiden (Chronic) Anemia in chronic kidney disease (Chronic) Acquired hypothyroidism (Chronic) You will use the following diet at home:: Regular Allergies/Adverse Reactions: Allergies bee venom protein (honey bee) Allergy (Severe, Verified 08/04/20 13:43) Anaphylaxis niacin Allergy (Severe, Verified 08/04/20 13:43) Anaphylaxis swelling of face and throat Primary Care Physician: Anya Lua DO [Primary Care Provider] - Test Results: Test results from this visit will be discussed in further detail at your follow- up appointment, if applicable. Proposed Discharge Date: 08/18/20
--- NOTE | 2020-08-18 10:12 | DS.PCM_ITS ---
Discharge Date and Diagnosis - Problem List Patient Problems: Active and Suspected Problems (Last Reviewed 08/04/20 @ 13:42 by Mini Kim) Pancytopenia (Acute) Renal failure (Acute) Dehydration (Acute) UTI (urinary tract infection) (Acute) Sepsis (Acute) Date of Admission: 08/17/20 Date of Discharge: 08/18/20 - Primary Discharge Diagnosis Acute Problems: Active Problems (Last Reviewed 08/04/20 @ 13:42 by Mini Kim) Pancytopenia (Acute) Renal failure (Acute) Dehydration (Acute) UTI (urinary tract infection) (Acute) Sepsis (Acute) - Secondary Discharge Diagnosis Chronic Problems: Chronic Problems (Last Reviewed 08/04/20 @ 13:42 by Mini Kim) Anemia (Chronic) History of non-Hodgkin's lymphoma (Chronic) Acute leukemia (Chronic) History of non-Hodgkin's lymphoma (Chronic) Hypokalemia (Chronic) Non-Hodgkin lymphoma (Chronic) History of pulmonary embolism (Chronic) Colostomy status (Chronic) Collagenous colitis (Chronic) Factor V Leiden (Chronic) 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 Patient been short of breath for weeks. Patient had known history of B-cell lymphoma. Upon arrival, patient had a creatinine of 8.67, up from August 04 where it was 5.32. Patient had positive anion gap of 21 and carbon dioxide was 6. Lactic acid was 2.3. Patient was not hypoxic. Patient was having metabolic acidosis with compensatory respiratory alkalosis. Patient had stated to her family that she want to be comfortable in the situations. Discussed with the patient's son and verified that. Plan is for the patient to go to hospice care center. Patient's son feels that she is too complex to be managed at home with hospice at this time though that has been the patient's request in the past. So the plan, as of right now, is for her to go to hospice care center. [] Patient Problems: Active and Suspected Problems (Last Reviewed 08/04/20 @ 13:42 by Mini Kim) Pancytopenia (Acute) Renal failure (Acute) Dehydration (Acute) UTI (urinary tract infection) (Acute) Sepsis (Acute) - Physical Exam Vitals/I&O's: Vital Signs Temp Pulse Resp BP Pulse Ox 36.7 C 104 H 22 H 124/54 H 97 08/18/20 05:07 08/18/20 05:07 08/18/20 05:07 08/18/20 05:07 08/18/20 05:07 Oxygen Flow Rate (L/min) 2 Oxygen Delivery Method Nasal Cannula Weight: 47.9 kg Body Mass Index (BMI) 18.1 Intake and Output for Last 24 Hours 08/16/20 08/17/20 08/18/20 23:59 23:59 23:59 Intake Total 550.0 / 700.0 200 / 200 Output Total 0 / 0 Balance 550.0 / 700.0 200 / 200 General: - - Unresponsive verbal or noxious stimuli. tachypneic Lungs: Clear to auscultation, Normal air movement, No rhonchi, No wheeze, No rales Cardiovascular: Regular rate, Regular Rhythm, Normal S1, Normal S2 Abdomen: Bowel Sounds Present, Soft, Non Tender, Non-Distended Laboratory Results 08/17/20 17:55: WBC 29.3 H, RBC 1.77 L, Hgb 5.7 L*, Hct 18.2 L, MCV 102.8 H, MCH 32.2 H, MCHC 31.3 L, RDW Std Deviation 68.7 H, RDW Coeff of Chantelle 18.1 H, Plt Count 15 L*, MPV TNP, Neut % (Auto) Not Reportable, Absolute Neuts (auto) 4.4, Absolute Lymphs (auto) 1.47, Neutrophils % (Manual) 15 L, Lymphocytes % (Manual) 5 L, Monocytes % (Manual) 65 H, Promyelocytes % 8 H, Blast Cells % 7 H*, Diff Path Review May , Platelet Estimate MKD DEC, RBC Morphology NORM C+C, Anisocytosis 2+ 08/17/20 17:55: Sodium 136, Potassium 4.3, Chloride 109 H, Carbon Dioxide 6.0 L* , Anion Gap 21 H, BUN 117 H*, Creatinine 8.67 H*, Estim Creat Clear Calc 4.25, Est GFR (MDRD) Af Amer 6 L, Est GFR (MDRD) Non-Af 5 L, BUN/Creatinine Ratio 13.5, Glucose 131 H, Calcium 6.8 L, Total Bilirubin 0.30, AST 32, ALT 11 L, Alkaline Phosphatase 75, Troponin I < 0.015, Total Protein 6.9, Albumin 3.2, Globulin 3.7, Albumin/Globulin Ratio 0.9, Lipase 262 08/17/20 17:55: Lactic Acid 2.3 H* 08/17/20 18:30: Urine Color Yellow, Urine Clarity Turbid, Urine pH 5.0, Ur Specific Platter 1.020, Urine Protein 500 H, Urine Glucose (UA) Normal, Urine Ketones Negative, Urine Occult Blood 250 H, Urine Nitrite Negative, Urine Bilirubin Negative, Urine Urobilinogen Normal, Ur Leukocyte Esterase 500 H, Urine RBC 0 SEEN, Urine WBC >100 SEEN, Ur Squamous Epith Cells 0 SEEN, Urine Bacteria 0 SEEN, Urine Mucus 0 SEEN 08/17/20 19:25: Blood Type A POSITIVE, Antibody Screen NEGATIVE 08/17/20 22:50: Lactic Acid 2.1 H* Current Medications Sodium Chloride () 1,000 mls @ 75 mls/hr IV .[id number] IVAN Last Admin: 08/17/20 23:02 Dose: 75 mls/hr Documented by: Morphine Sulfate (Morphine 2 Mg/Ml Syringe) 2 mg IV Q3H PRN PRN PRN Reason: Pain Score 6-10 Ondansetron HCl (Ondansetron 4 Mg/2 Ml Vial) 4 mg IV Q8H PRN PRN PRN Reason: NAUSEA/VOMITING Sodium Chloride (0.9% Saline Lock 10 Ml Syringe) 10 - 40 ml IV UD PRN PRN Reason: SALINE FLUSH Last Admin: 08/17/20 23:02 Dose: 10 ml Documented by: Discharge Diet: No Restrictions Primary Care Physician: Anya Lua DO [Primary Care Provider] - Disposition: Hospice Medical Facility Minutes spent on discharge:: 32 Patient Condition:: Poor Medical Necessity - Tobacco Use Smoking Status: Never smoker Meaningful Use Info Meaningful Use Diagnoses (Choose all that apply): None applicable OBSV E&M: 87345 Observation care discharge
--- NOTE | 2020-08-18 10:28 | PCM.DEATH ---
Preliminary Cause of Acute kidney injury Date of Admission: 08/17/20 Date of : 08/18/20 - Principle Diagnosis SANG metabolic acidosis with respiratory alkalosis AML, recurrent pancytopenia Problem List: Active and Suspected Problems (Last Reviewed 08/04/20 @ 13:42 by Mini Kim) Pancytopenia (Acute) Renal failure (Acute) Dehydration (Acute) UTI (urinary tract infection) (Acute) Sepsis (Acute) Hospital Course Presents with abdominal pain and shortness of breath. Patient has known history of recurrent acute myeloid leukemia. Patient had been given poor prognosis previously. Patient was feeling short of breath for weeks to present to the hospital with acute kidney injury with a creatinine greater than 8. Patient also had a positive anion gap. Patient was having metabolic acidosis with compensatory respiratory alkalosis. Patient want to be hospice. IV fluids were administered with the intent for the patient follow-up with hospice. Discussed with the patient's son this morning who confirmed as much. Patient at 1025August 18, 2020. OBSV E&M: 29702 Observation care discharge
--- NOTE | 2020-08-18 10:31 | NURSING ---
1026- nurse to room per son request states he thinks pt has and is no longer breathing. nurse to room, abscence of apical pulse and no respirations verified by [address] Morton aware.
--- NOTE | 2020-08-18 10:34 | CASEMGMT ---
Social Work Note SW updated in rounds that pt's son Mian was agreeable to inpatient hospice unit. SW placed a call to [facility] and spoke with RN Thien. Thien states he was just made aware that pt passed. NILESH updated charge nurse. SW in to speak with pt's son Keaton and provided support. Keaton aware that this SW is available if needs/concerns arise. Keaton states understanding. Selin Alfaro GROOVER AND STRIPER OPERATOR, WORKERS' COMPENSATION CLAIMS SUPERVISOR
[2020-08-18 12:28] LABS: Pathologist Review Reviewed
== END 2020-08-18 12:20 ==
LOC: ED 20:58 → MS3 21:34
PROVIDERS: Admitting Provider Family Medicine; Emergency Provider Emergency Medicine; PCP Internal Medicine
DX: A41.9 Sepsis, unspecified organism (principal); N17.9 Acute kidney failure, unspecified; C92.00 Acute myeloblastic leukemia, not having achieved remission; E87.4 Mixed disorder of acid-base balance; D68.51 Activated protein C resistance; D61.818 Other pancytopenia; E86.0 Dehydration; N39.0 Urinary tract infection, site not specified; Z93.3 Colostomy status; N18.9 Chronic kidney disease, unspecified; D63.1 Anemia in chronic kidney disease; Z86.711 Personal history of pulmonary embolism; K52.831 Collagenous colitis; Z66 Do not resuscitate; C82.90 Follicular lymphoma, unspecified, unspecified site; E87.6 Hypokalemia
CPT/HCPCS: 36415; 80053; 81001; 83605; 83690; 84484; 85025; 86850; 86900; 86901; 96361; 96365; 96375; 99218; 99285; J7030; J7040; P9612; A4216; G0378